=== PATIENT | female | born 1950 | race Caucasian/White ===

== ENCOUNTER 2022-10-17 12:20 | Outpatient (OUT) | payer MEDICARE, MEDICAID, SELFPAY ==
--- NOTE | 2022-10-17 12:54 | CT_ITS ---
[address] [address] Patient Name: JAXSON QUEZADA MRN: [id number] date: 1950 Sex: F Assigned Patient Location: CT Current Patient Location: Accession/Order Number: [id number] Exam Date: 10/17/2022 12:48 Report Date: 10/18/2022 07:27 At the request of: NON-STAFF PHYSICIAN Procedure: CT lumbar spine wo con EXAMINATION: CT lumbar spine wo con HISTORY: LUMBAR SPINAL STENOSIS COMPARISON: No relevant comparison available. TECHNIQUE: Axial, Coronal, and Sagittal CT images were created without I.V. contrast material. Dose reduction techniques were achieved by using automated exposure control and/or adjustment of mA and/or kV according to patient size and/or use of iterative reconstruction technique. FINDINGS: PARASPINAL AREA: Extensive diffuse atherosclerosis BONES: 5 mm anterolisthesis of L4 in relation to L5. Posterior decompression bilateral transpedicular fusion L4-S1 with no mechanical failure. DISC LEVELS: 12-L1: Early degenerative disc disease is present without focal protrusion or neural impingement. L1-L2: Early degenerative disc disease is present without focal protrusion or neural impingement. L2-L3: No significant disc/facet abnormality, spinal stenosis, or foraminal stenosis. L3-L4: Vacuum disc with moderate narrowing. Endplate sclerosis. Moderate left foraminal disc protrusion extending up to 3 mm. No central or right foraminal stenosis. Mild narrowing of the left neural foramen L4-L5: 5 mm anterolisthesis of L4 on L5. Interbody spacer. No central or foraminal stenosis L5-S1: Interbody spacer. Left facet osteoarthropathy. No central stenosis. Mild right and no left foraminal stenosis CT/CT lumbar spine wo con IMPRESSION: Posterior decompression and transpedicular fusion L4-S1 Degenerative changes resulting in left L3-L4 and right L5-S1 foraminal stenosis Electronically authenticated by: CHARY AWAD Date: 10/18/2022 07:27
--- NOTE | 2022-10-17 13:05 | XR_ITS ---
The [address] [address] Patient Name: JAXSON QUEZADA MRN: [id number] date: 1950 Sex: F Assigned Patient Location: CT Current Patient Location: CT Accession/Order Number: [id number] Exam Date: 10/17/2022 12:54 Report Date: 10/18/2022 14:25 At the request of: NON-STAFF PHYSICIAN Procedure: XR lumbar spine 6V w bending EXAM: XR lumbar spine 6V w bending HISTORY: Status post spinal fusion. Instrument check. COMPARISON: CT from the same day. FINDINGS: The patient is status post posterior fusion with interbody spacers at L4-S1, intact. The paravertebral soft tissues are unremarkable. There is no evidence of ligamentous instability on the flexion or extension views. There is no evidence of a pars defect on the oblique views. Vascular calcifications are observed. XR/XR lumbar spine 6V w bending IMPRESSION: Status post spinal fusion. Electronically authenticated by: JOSTIN BUSBY Date: 10/18/2022 14:25
== END 2022-10-17 12:21 | disposition home or self-care (01) ==
LOC: CT 12:24
PROVIDERS: PCP Internal Medicine
DX: M48.061 Spinal stenosis, lumbar region without neurogenic claudication (principal); Z98.1 Arthrodesis status; M51.36 Other intervertebral disc degeneration, lumbar region; M48.07 Spinal stenosis, lumbosacral region
CPT/HCPCS: 72114; 72131

== ENCOUNTER 2022-11-03 07:34 | Outpatient (OUT) | payer MEDICARE, MEDICAID, SELFPAY ==
--- NOTE | 2022-11-03 08:57 | CA_ITS ---
Patient: JAXSON QUEZADA Exam Date: 11/03/2022 : 1950 Gender:F Ordering : MRS. ROSANA MIKE NP Admission #: [id number] Family : Order #: [id number] CLICK HERE TO VIEW EXAM ECHOCARDIOGRAM REPORT PROCEDURE: CA ECHO DOPPLER COMPLETE INDICATIONS: Nonrheumatic aortic stenosis, CABGx3, hypertension, diabetes, smoker COMPARISON: None. DESCRIPTION: COMPLETE ECHOCARDIOGRAM Real-time transthoracic echocardiography with 2D, M-mode, spectral and color flow Doppler performed. QUALITY: Technical quality was good. LEFT VENTRICLE: Normal chamber size. Mild concentric left ventricular hypertrophy. Systolic function is at the lower limits of normal. Hypokinesis of the basal anteroseptum wall and the basal inferior wall. LV EF: Lower limits of normal left ventricular ejection fraction, (50%). DIASTOLIC: Grade I diastolic dysfunction. ATRIAL SEPTUM: Visually appears intact. LEFT ATRIUM: Mild dilatation. RIGHT ATRIUM: Normal chamber size. RIGHT VENTRICLE: Normal chamber size. Normal right ventricular systolic function. TRICUSPID VALVE: Normal mobility and thickness. No stenosis with trivial regurgitation. No evidence of pulmonary hypertension. RVSP 29 mmHg MITRAL VALVE: Normal mobility and thickness. No evidence of mitral valve stenosis. Mild mitral annular calcification. No mitral regurgitation. AORTIC VALVE: Normal trileaflet appearance. Moderately calcified aortic valve. Mildly diminished mobility. Doppler velocity suggest moderate aortic valve stenosis. DVI 0.4, JULIO, 1.2 cm2. Mild aortic regurgitation. AORTIC ROOT: Normal diameter and appearance. PULMONIC VALVE: Normal thickness and mobility. No stenosis. No regurgitation. PERICARDIUM: No evidence of pericardial effusion. IVC: Collapses with inspirations. PLEURA: CONCLUSION: 1. Left ventricular systolic function is at the lower limits of normal. Segmental wall motion abnormalities. LVEF is 50%. 2. Normal right ventricular size and systolic function. 3. Moderate aortic valve stenosis with mild regurgitation. 4. Normal right-sided pressures. Adult Echocardiography Procedure Report Left Ventricle LVEDD (3.7 - 5.6 cm): 4.42 cm LVESD (2.2 - 4.0 cm): 3.69 cm LVIVS thickness (0.6 - 1.2 cm): 1.18 cm LVPW thickness (0.5 - 1.0 cm): 1.18 cm e': 0.09 m/s E - e': 5.91 LVOT Max Gradient: 2.53 mm[Hg], 2.22 mm[Hg] Peak Velocity (LVOT): 0.80 m/s, 0.75 m/s LVOT Diameter 1.97 cm Left Atrium LA Volume Index (2D A2C): 38.88 ml/m2 Left Atrium Systolic Dimension: 2.59 cm Mitral Valve MV E to A Ratio: 0.55 Mitral Valve A-Wave Peak Velocity: 0.95 m/s Mitral Valve E-Wave Peak Velocity: 0.52 m/s Right Ventricle Aorta AO Root Diam: 2.85 cm Ascending Ao Diam: 2.15 cm Aortic Valve AoV Area (Peak Jarad): 1.14 cm2, 2.89 cm2, 1.14 cm2 AoV Area (VTI): 0.92 cm2, 2.56 cm2, 1.06 cm2 Peak Velocity(Antegrade Flow): 0.84 m/s, 1.99 m/s, 2.07 m/s, 2.11 m/s Peak Gradient(Antegrade Flow): 2.79 mm[Hg], 15.91 mm[Hg], 17.12 mm[Hg], 17.87 mm[Hg] Mean Velocity(Antegrade Flow): 0.57 m/s, 1.46 m/s, 1.63 m/s, 1.58 m/s Mean Gradient(Antegrade Flow): 1.48 mm[Hg], 9.39 mm[Hg], 11.50 mm[Hg], 11.11 mm[Hg] Velocity Time Integral: 18.27 cm, 43.24 cm, 50.75 cm, 46.88 cm Tricuspid Valve Peak Velocity (Regurgitant Flow): 2.54 m/s Pulmonic Valve Peak Gradient: 3.25 mm[Hg], 4.07 mm[Hg] Right Atrium Right Atrium Systolic Pressure: 41.09 ml, 41.09 ml Dictated by: Ender Goff M.D. on 11/03/2022 at 13:35 Approved by: Ender Goff M.D. on 11/03/2022 at 13:39
== END 2022-11-03 07:35 | disposition home or self-care (01) ==
PROVIDERS: PCP Internal Medicine; Visit Provider Nurse Practitioner Acute Care
DX: I35.0 Nonrheumatic aortic (valve) stenosis (principal)
CPT/HCPCS: 93306

== ENCOUNTER 2022-12-05 08:31 | Outpatient (OUT) | payer MEDICARE, MEDICAID, SELFPAY ==
--- NOTE | 2022-12-05 | PCN_ITS ---
CARDIAC STRESS TEST Requesting Physician:? Maddie Lopez NP Procedure Date:? 12/05/2022 PERFORMING PROVIDER:? Lito Condon INDICATION:? CAD, rey-op risk stratification. PROTOCOL:? Lexiscan myocardial perfusion scan. Resting heart rate:? 64 Max heart rate:? 102 Resting blood pressure:? 108/60 Maximum blood pressure:? 128/62 CONCLUSIONS: 1.? Resting EKG demonstrates sinus bradycardia, right axis deviation, and incomplete right bundle branch block. 2.? No definite EKG changes meeting the criteria for ischemia. 3.? Please refer to separately performed and interpreted myocardial perfusion imaging report. TAMIKOD
--- NOTE | 2022-12-05 08:15 | NM_ITS ---
Patient: JAXSON QUEZADA Exam Date: 12/05/2022 : 1950 Gender:F Ordering : MRS. ROSANA MIKE ANTONI Admission #: [id number] Family : DR BELINDA PONCE M.D. Order #: [id number] CLICK HERE TO VIEW EXAM RADIOLOGY REPORT PROCEDURE: NM ERICK PERF SPECT REST STR COMPARISON: None. INDICATIONS: CORONARY ARTERY DISEASE, PRE PROCEDURE CARDIOVASCULAR EXAM TECHNIQUE: Exam Description: Stress/Rest one day protocol gated SPECT Rest Imagin.9 mCi Tc-99m Cardiolite IV on 12/05/2022 Stress Imaging 30.3 mCi Tc-99m Cardiolite IV on 12/05/2022 Exercise Protocol: 0.4 mg Lexiscan given IV Heart Rate (bpm): Rest: 63 Max: 102 PMHR: 68 Blood Pressure: Rest: 108/60 Max: 128/62 Symptoms: Rest and peak stress ECG findings were pending and the exercise portion of the study was pending per attending physician Dr. AGUILERA . For more details please see separate cardiac stress test report. FINDINGS: QUALITY OF STUDY: Good. PERFUSION DEFECT: LOCATION: Basal inferior. Mid-inferior. SIZE: Small (1-2 segments). SEVERITY: Mild. TYPE: Persistent. WALL MOTION: Mild hypokinesis: LV SIZE: Normal. 91 mL. TID / TCD: None; 0.9 LVEF: Abnormal. Calculated EF 53%. SUMMARY: Myocardial perfusion imaging study has ABNORMAL findings. CONCLUSION: 1. Small fixed defect in the inferior wall possibly diaphragmatic attenuation artifact 2. Borderline Low left ventricular ejection fraction of 53% 3. Pending exercise test Dictated by: Azael Syed MD on 12/06/2022 at 14:18 Approved by: Azael Syed MD on 12/06/2022 at 14:21
[2022-12-05] MEDS: REGADENOSON 0.4 MG/5 ML SYRINGE IV (10:13)
== END 2022-12-05 08:32 | disposition home or self-care (01) ==
LOC: NM 08:31
PROVIDERS: PCP Internal Medicine; Visit Provider Nurse Practitioner Acute Care
DX: I25.10 Atherosclerotic heart disease of native coronary artery without angina pectoris (principal)
CPT/HCPCS: 78452; 93017; A9500; J2785

== ENCOUNTER 2023-03-29 08:51 | Inpatient (IN) | payer MEDICARE, MEDICAID, SELFPAY ==
[2023-03-29] VITALS (18 sets, daily range): BP systolic 109–153; BP diastolic 54–98; PULSE 65–104; RESP 15–20; TEMP 36.8–37.4; O2SAT 85–96; BMI 23.0; BMI 23.7
--- NOTE | 2023-03-29 08:58 | XR_ITS ---
The [address] [address] Patient Name: JAXSON QUEZADA MRN: [id number] date: 1950 Sex: F Assigned Patient Location: ER Current Patient Location: ER Accession/Order Number: [id number] Exam Date: 03/29/2023 09:00 Report Date: 03/29/2023 09:17 At the request of: HAIM SMITH Procedure: XR chest 1V EXAM: XR chest 1V HISTORY: cough COMPARISON: None. TECHNIQUE: AP view of the chest. FINDINGS: The cardiomediastinal silhouette is normal. Patchy airspace disease the right midlung field. There is no pneumothorax. No pleural effusion is noted. The osseous structures are intact. XR/XR chest 1V IMPRESSION: Multifocal pneumonia of the right lung. Electronically authenticated by: CRYSTAL WATT Date: 03/29/2023 09:17
--- NOTE | 2023-03-29 09:01 | ED.GENADUL1 ---
HPI - General Adult General Chief complaint: Upper Respiratory Infection Stated complaint: SORE THROAT Time Seen by Provider: 03/29/23 08:52 Mode of arrival: ambulance History of Present Illness HPI narrative: 72-year-old female presents for sore throat. She's had it for five or six days. She also developed a cough recently and some congestion, within the last day. Her does not seem to be ill. No known history of a fever and no vomiting or diarrhea. Related Data Home Medications Medication Instructions Recorded Confirmed atorvastatin 20 mg tablet 20 mg PO DAILY 03/29/23 03/29/23 carbidopa 25 mg-levodopa 100 mg 1 tab PO QID 03/29/23 03/29/23 tablet citalopram 20 mg tablet 20 mg PO DAILY 03/29/23 03/29/23 clopidogrel 75 mg tablet 75 mg PO DAILY 03/29/23 03/29/23 isosorbide mononitrate 30 mg 30 mg PO DAILY 03/29/23 03/29/23 tablet,extended release 24 hr metformin 500 mg tablet,extended 500 mg PO DAILY 03/29/23 03/29/23 release 24 hr pregabalin 200 mg capsule 200 mg PO TID 03/29/23 03/29/23 primidone 50 mg tablet 50 mg PO QID 03/29/23 03/29/23 ropinirole 0.25 mg tablet 0.25 mg PO QID 03/29/23 03/29/23 tizanidine 4 mg tablet 4 mg PO BEDTIME 03/29/23 03/29/23 Allergies Allergy/AdvReac Type Severity Reaction Status Date / Time No Known Drug Allergies Allergy Verified 03/29/23 09:44 Review of Systems ROS Narrative A ten point review of systems is negative except as noted above. Exam Narrative Exam Narrative: Nurses note and vital signs reviewed and patient is not hypoxic. General: The patient appears well and in no apparent distress. Patient is resting comfortably on cart. Skin: Warm, dry, no pallor noted. There is no rash noted. Head: Normocephalic, atraumatic Eye: Normal conjunctiva, no drainage Ears, Nose, Mouth, and Throat: oral mucosa is slightly dry. No exudate or pharyngeal swelling. She is handling her oral secretions well. Cardiovascular: Regular Rate and Rhythm Respiratory: Patient is in no distress, no accessory muscle use, lungs are clear to auscultation, no wheezing, rales or rhonchi Back: non-tender GI: Normal bowel sounds, no tenderness to palpation, no masses appreciated. No rebound, guarding, or rigidity noted. Musculoskeletal: The patient has no evidence of calf tenderness, no pitting edema, symmetrical pulses noted bilaterally Neurological: A&O, normal speech, quite tremorous Psychiatric: Cooperative Constitutional Vital Signs, click to edit/add: Last Vital Signs Temp 99.4 F 03/29/23 08:54 Pulse 99 H 03/29/23 09:16 Resp 16 03/29/23 09:16 BP 140/55 03/29/23 09:16 Pulse Ox 85 L 03/29/23 09:31 O2 Del Method Room Air 03/29/23 09:31 FiO2 2 03/29/23 09:31 Course Vital Signs Vital signs: Vital Signs Temperature 99.4 F 03/29/23 08:54 Pulse Rate 104 H 03/29/23 08:54 Respiratory Rate 15 03/29/23 08:54 Blood Pressure 120/98 H 03/29/23 08:54 Pulse Oximetry 96 03/29/23 08:54 Oxygen Delivery Method Room Air 03/29/23 08:54 Temperature 99.4 F 03/29/23 08:54 Pulse Rate 99 H 03/29/23 09:16 Respiratory Rate 16 03/29/23 09:16 Blood Pressure 140/55 03/29/23 09:16 Pulse Oximetry 85 L 03/29/23 09:31 Oxygen Delivery Method Room Air 03/29/23 09:31 Fraction of Inspired Oxygen 2 03/29/23 09:31 Medical Decision Making MDM Narrative Medical decision making narrative: multifocal pneumonia is identified on the right side. O2 sat was 85 percent on room air. WBC eighteen thousand with lactic acid pending. Blood cultures were obtained and then she was given IV Rocephin and Zithromax and she's being admitted. Covid and influenza tests are negative. Treatment diagnosis and disposition were discussed with the patient. Differential Diagnosis Differential Diagnosis: pneumonia, Covid, influenza Lab Data Lab results reviewed: Yes I reviewed the patient's lab results Labs: Lab Results 03/29/23 03/29/23 Range/Units 09:02 09:12 WBC 18.2 H (4.0-11.0) 10^3/uL RBC 4.59 (4.20-5.40) 10^6/uL Hgb 15.0 (12.0-16.0) g/dL Hct 45.1 (36.0-48.0) % MCV 98.3 (81.0-99.0) fL MCH 32.7 (26.7-34.0) pg MCHC 33.3 (29.9-35.2) g/dL RDW 14.2 (11.0-15.0) % Plt Count 156 (150-450) 10^3/uL MPV 12.1 (9.5-13.5) fL Neut % (Auto) 79.3 H (43.0-75.0) % Lymph % (Auto) 12.8 L (20.5-60.0) % [place] % (Auto) 6.8 (1.7-12.0) % Eos % (Auto) 0.3 L (0.9-7.0) % Baso % (Auto) 0.3 (0.2-2.0) % Neut # (Auto) 14.4 H (1.4-6.5) 10^3/uL Lymph # (Auto) 2.3 (1.2-3.8) 10^3/uL [place] # (Auto) 1.2 H (0.3-0.8) 10^3/uL Eos # (Auto) 0.1 (0.0-0.7) 10^3/uL Baso # (Auto) 0.1 (0.0-0.1) 10^3/uL Abs Immat Gran (auto) 0.09 H (0.00-0.03) 10^3/uL Imm/Tot Granulo (auto) 0.5 (0.0-0.5) % Sodium 142 (136-145) mmol/L Potassium 3.6 (3.5-5.1) mmol/L Chloride 106 (98-107) mmol/L Carbon Dioxide 26.9 (21.0-32.0) mmol/L Anion Gap 12.7 BUN 22.0 H (7.0-18.0) mg/dL Creatinine 0.62 (0.55-1.02) mg/dL Est GFR ( Amer) >60 (>=60) Est GFR (Non-Af Amer) >60 (>=60) BUN/Creatinine Ratio 35.5 Glucose 178 H (74-106) mg/dL Calcium 8.9 (8.5-10.1) mg/dL SARS-CoV-2 (PCR) Negative (NEGATIVE) Influenza Type A Ag Negative Influenza Type B Ag Negative Streptococcus Screen Negative Imaging Data Chest x-ray: Radiologist's impression: ITS Impressions Chest X-Ray 03/29/23 08:58 IMPRESSION: Multifocal pneumonia of the right lung. Electronically authenticated by: CRYSTAL WATT Date: 03/29/2023 09:17 Discharge Plan Discharge Chief Complaint: Upper Respiratory Infection Clinical Impression: Pneumonia Patient Disposition: Admitted As Inpatient Time of Disposition Decision: 09:51 Condition: Good Prescriptions / Home Meds: No Action atorvastatin 20 mg tablet 20 mg PO DAILY carbidopa-levodopa 25-100 mg tablet 1 tab PO QID citalopram 20 mg tablet 20 mg PO DAILY clopidogrel 75 mg tablet 75 mg PO DAILY isosorbide mononitrate 30 mg tablet extended release 24 hr 30 mg PO DAILY metformin 500 mg tablet extended release 24 hr 500 mg PO DAILY primidone 50 mg tablet 50 mg PO QID ropinirole 0.25 mg tablet 0.25 mg PO QID tizanidine 4 mg tablet 4 mg PO BEDTIME pregabalin 200 mg capsule 200 mg PO TID Referrals: BELINDA PONCE [Primary Care Provider] - 1 week
[2023-03-29 09:33] LABS: Anion Gap 12.7; BUN Creatinine Ratio 35.5; Calcium 8.9 mg/dL (8.5-10.1); Carbon Dioxide 26.9 mmol/L (21.0-32.0); Chloride 106 mmol/L (98-107); Estimated GFR (African America >60 (>=60); Estimated GFR (Non-African Ame >60 (>=60); Glucose 178 mg/dL (74-106); Potassium 3.6 mmol/L (3.5-5.1); Sodium 142 mmol/L (136-145)
[2023-03-29 09:38] LABS: Influenza Virus A Antigen Negative; Influenza Virus B Antigen Negative; Internal Control Within Normal Limits; Strep A Antigen Screen Negative
[2023-03-29 09:39] LABS: SARS-CoV-2 Ag NEGATIVE (NEGATIVE)
[2023-03-29 09:41] LABS: Basophils Absolute Auto 0.1 10^3/uL (0.0-0.1); Basophils Percent Auto 0.3 % (0.2-2.0); Eosinophils Absolute Auto 0.1 10^3/uL (0.0-0.7); Eosinophils Percent Auto 0.3 % (0.9-7.0); Hematocrit 45.1 % (36.0-48.0); Immature Granulocytes Abs Auto 0.09 10^3/uL (0.00-0.03); Immature Granulocytes Pct Auto 0.5 % (0.0-0.5); Lymphocytes Absolute Auto 2.3 10^3/uL (1.2-3.8); Lymphocytes Percent Auto 12.8 % (20.5-60.0); Mean Corpuscular HGB Conc 33.3 g/dL (29.9-35.2); Mean Corpuscular Hemoglobin 32.7 pg (26.7-34.0); Mean Corpuscular Volume 98.3 fL (81.0-99.0); Mean Platelet Volume 12.1 fL (9.5-13.5); Monocytes Absolute Auto 1.2 10^3/uL (0.3-0.8); Monocytes Percent Auto 6.8 % (1.7-12.0); Neutrophils Absolute Auto 14.4 10^3/uL (1.4-6.5); Neutrophils Percent Auto 79.3 % (43.0-75.0); Platelet Count 156 10^3/uL (150-450); Red Blood Count 4.59 10^6/uL (4.20-5.40); Red Cell Distribution Width 14.2 % (11.0-15.0); White Blood Count 18.2 10^3/uL (4.0-11.0)
[2023-03-29] MEDS: CEFTRIAXONE 1,000 MG in 0.9 % SODIUM CHLORIDE 50 ML 100 MG IV (09:45)
[2023-03-29 09:54] LABS: Lactate/Lactic Acid 0.7 mmol/L (0.4-2.0)
[2023-03-29] MEDS: ACETAMINOPHEN 325 MG TABLET 650 MG PO (09:54)
[2023-03-29] MEDS: AZITHROMYCIN 500 MG in 0.9 % SODIUM CHLORIDE 250 ML 250 MG IV (10:23)
[2023-03-29 11:03] LABS: Adenovirus NOT DETECTED (NOT DETECTE); Bordetella parapertussis NOT DETECTED (NOT DETECTE); Coronavirus 229E NOT DETECTED (NOT DETECTE); Coronavirus HKU1 NOT DETECTED (NOT DETECTE); Coronavirus NL63 NOT DETECTED (NOT DETECTE); Coronavirus OC43 NOT DETECTED (NOT DETECTE); Human Metapneumovirus NOT DETECTED (NOT DETECTE); Human Rhinovirus/Enterovirus NOT DETECTED (NOT DETECTE); Influenza A NOT DETECTED (NOT DETECTE); Influenza B NOT DETECTED (NOT DETECTE); Mycoplasma pneumoniae NOT DETECTED (NOT DETECTE); Parainfluenza Virus 1 NOT DETECTED (NOT DETECTE); Parainfluenza Virus 2 NOT DETECTED (NOT DETECTE); Parainfluenza Virus 3 NOT DETECTED (NOT DETECTE); Parainfluenza Virus 4 NOT DETECTED (NOT DETECTE); Respiratory Syncytial Virus NOT DETECTED (NOT DETECTE); SARS-CoV-2 NOT DETECTED (NOT DETECTE)
[2023-03-29 12:18] LABS: Glucometer 192 mg/dL (74-106)
[2023-03-29] MEDS: LACTATED RINGER'S SOLUTION 1,000 ML 100 ML IV ×2 (13:36→22:54)
[2023-03-29] MEDS: GUAIFENESIN 600 MG TAB.ER.12H PO ×2 (13:36→20:27)
--- NOTE | 2023-03-29 14:28 | P.HP_ITS ---
<Statement entered by Oscar Tipton MD - 03/29/23 17:43> Patient not seen or examined and evaluated by LICENSED CLINICIAN. Presented with cough and SOB. Found pneumonia. Started antibiotics and resumed home medication. Found hypoxia and wean O2 as tolerated. Diagnosis: 1. Pneumonia 2. Acute hypoxic respiratory failure 3. DM2 4. HTN 5. Parkinson disease H&P: HPI History of Present Illness Chief complaint: SORE THROAT Narrative: 03/29/23 7069 This is a 72 yo female pt with a past Medical history as outlined below including advanced Parkinson's disease, hypertension, DM2, hyperlipidemia, and depression; who presented to the ED this morning complaining of a sore throat and upper respiratory congestion for the last 4 to 5 days. She also reports a cough and fevers. She denies significant shortness of breath but was found to be 85% on room air on arrival to the ED. Workup in the ED revealed hypoxia (85%), leukocytosis (18.2), hyperglycemia (178), negative respiratory panel and unremarkable lactic acid. Chest x-ray revealed right-sided multifocal pneumonia. She is being admitted as an inpatient to the hospitalist service for IV antibiotics and oxygen administration. At the time of my exam the patient is sitting on the side of the bed. She is alert and oriented x 2. She denies any recent sick contacts. She reports a 4 to 5-day course of coughing, fevers up to 101, and sinus and ear congestion. She appears mildly dehydrated and acutely weak on chronic advanced Parkinson's disease. She will be treated with IV fluids, Rocephin and azithromycin for CAP, and will be seen in consult by PT and OT. Patient has a long history of tobacco dependence and we suspect possible underlying COPD although she has no known diagnosis. Review of Systems ROS Status of ROS 10 or more systems reviewed and unremark able except as noted in history and below [facility] Medical History (Updated 03/29/23 @ 15:29 by Dacia Guthrie NP) CAD (coronary artery disease) ?I25.10 - Atherosclerotic heart disease of [place] coronary artery without angina pectoris (ICD-10) Myocardial infarction ?I21.9 - Acute myocardial infarction, unspecified (ICD-10) Tobacco dependence ?F17.200 - Nicotine dependence, unspecified, uncomplicated (ICD-10) OAB (overactive bladder) ?N32.81 - Overactive bladder (ICD-10) Hyperlipidemia ?E78.5 - Hyperlipidemia, unspecified (ICD-10) HTN (hypertension) ?I10 - Essential (primary) hypertension (ICD-10) DM2 (diabetes mellitus, type 2) ?E11.9 - Type 2 diabetes mellitus without complications (ICD-10) Parkinson disease ?G20.A1 - Parkinson's disease without dyskinesia, without mention of fluctuations (ICD-10) Surgical History (Updated 03/29/23 @ 15:26 by Luna Ying) History of cholecystectomy ?Z90.49 - Acquired absence of other specified parts of digestive tract (ICD- 10) Previous back surgery ?Z98.890 - Other specified postprocedural states (ICD-10) S/P triple vessel bypass ?Z95.1 - Presence of aortocoronary bypass graft (ICD-10) Family History (Updated 03/29/23 @ 11:57 by Luna Ying) Father Family history of CHF (congestive heart failure) Family history of cancer Mother Family history of CHF (congestive heart failure) Brother Family history of CHF (congestive heart failure) Social History (Updated 03/29/23 @ 11:54 by Luna Ying) Within the past year, how often did you have a drink containing alcohol: never Score interpretation: A score less than 3 is consistent with normal alcohol consumption. 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 Highest level of school completed/degree received: some college, no degree Are you now , , , , never or living with a partner: In a typical week, how many times do you talk on the telephone with family, friends, or neighbors: 3 or more times per week How often do you get together with friends or relatives: 3 or more times per week How often do you attend samaritan or bahai services: never Do you belong to any clubs or organizations such as samaritan groups unions, fraternal or athletic groups, or school groups: no Total score: 2 Score interpretation: A score of greater than or equal to 2 indicates the lowest level of social isolation. Little interest or pleasure in doing things: not at all Feeling down, depressed, or hopeless: not at all Feel stressed/tense/nervous/anxious/difficulty sleeping: only a little Do you think of yourself as: straight/heterosexual Gender Identity: female Meds Home Medications and Allergies Home Medications Medication Instructions Recorded Confirmed Type atorvastatin 40 mg tablet 40 mg PO BEDTIME 03/29/23 03/29/23 History carbidopa 25 mg-levodopa 100 mg 1 tab PO QID 03/29/23 03/29/23 History tablet citalopram 40 mg tablet 40 mg PO QAM 03/29/23 03/29/23 History clopidogrel 75 mg tablet 75 mg PO DAILY 03/29/23 03/29/23 History hydrocodone 10 mg-acetaminophen 1 tab PO Q8H PRN pain 03/29/23 03/29/23 History 325 mg tablet isosorbide mononitrate 30 mg 30 mg PO DAILY 03/29/23 03/29/23 History tablet,extended release 24 hr metformin 750 mg tablet,extended 750 mg PO QDAY 03/29/23 03/29/23 History release 24 hr oxybutynin chloride 10 mg 10 mg PO .QD 03/29/23 03/29/23 History tablet,extended release 24 hr pregabalin 200 mg capsule 200 mg PO TID 03/29/23 03/29/23 History primidone 50 mg tablet 50 mg PO QID 03/29/23 03/29/23 History ropinirole 0.25 mg tablet 0.25 mg PO QID 03/29/23 03/29/23 History tizanidine 4 mg tablet 4 mg PO TID PRN muscle spasticity 03/29/23 03/29/23 History Allergies Allergy/AdvReac Type Severity Reaction Status Date / Time No Known Drug Allergies Allergy Verified 03/29/23 09:44 Exam Constitutional Vital Signs, click to edit/add: Last Vital Signs Temp 98.3 F 03/29/23 14:00 Pulse 68 03/29/23 14:00 Resp 20 03/29/23 14:00 BP 145/68 H 03/29/23 14:00 Pulse Ox 94 L 03/29/23 14:00 O2 Del Method Nasal Cannula 03/29/23 14:00 O2 Flow Rate 2 03/29/23 14:00 FiO2 2 03/29/23 09:31 Common normals: no apparent distress, oriented x3, alert and well nourished General appearance: cooperative Orientation/consciousness: Yes awake HENOK Common normals: normocephalic, head/scalp atraumatic, hearing grossly normal bilaterally, external nose normal and moist oral mucous membranes Eye Common normals: PERRL, EOMs intact bilaterally, conjunctivae normal and no scleral icterus Alignment: alignment normal Eyelid: eyelids normal Neck & C-Spine Common normals: full ROM, supple and no JVD Chest Common normals: inspection of chest normal Chest: symmetrical chest wall rise Respiratory Common normals: normal respiratory effort, no retractions and no use of accessory muscles Effort & inspection: able to speak in complete sentences Auscultation: wheezes (Faint, BEVERLY wheeze) and diminished lung sounds (BLL); no rales and no rhonchi Cardio Common normals: no JVD, regular rate, regular rhythm, S1 normal heart sound, S2 normal heart sound, no gallops, no clicks, no murmurs, no rub and peripheral pulses 2+ throughout Bladder/kidney exam: bladder normal to palpation Back & Pelvis Common normals: thoracic and lumbar spine normal to inspection Extremity Common normals: normal capillary refill and no pedal edema General: normal exam except as noted; no cyanosis Neuro Star Coma Scale: GCS not evaluated Common normals: CN's II-XII intact bilaterally, moves all extremities, no focal motor deficits and no sensory deficits noted; gait abnormal (L foot drop) Speech: speech normal Gait (neuro): assistive device used walker Motor exam: strength 5/5 throughout Psych Common normals: mental status grossly normal, thought process normal, affect normal and activity/motor behavior normal Results Labs Labs: Short CBC 03/29/23 Range/Units 09:12 WBC 18.2 H (4.0-11.0) 10^3/uL Hgb 15.0 (12.0-16.0) g/dL Hct 45.1 (36.0-48.0) % Plt Count 156 (150-450) 10^3/uL BMP 03/29/23 09:12 Sodium 142 Potassium 3.6 Chloride 106 Carbon Dioxide 26.9 BUN 22.0 H Creatinine 0.62 Glucose 178 H Calcium 8.9 Pulse Oximetry Attestation: I have reviewed the pertinent pulse oximetry results. Imaging Chest x-ray: Attestation: I have reviewed the pertinent imaging results. Radiologist's impression: IMPRESSION: Multifocal pneumonia of the right lung. Assessment and Plan Assessment and Plan (1) Multifocal pneumonia: Assessment and Plan: ACUTE * Adm Inpatient * IVPB Rocephin & Azithromycin * Obtain sputum culture if possible to direct deescalation of antibiotics * Guafenesin & OPEP for sputum mobilization * Duonebs q4h PRN * No clinical concern for sepsis at this time but remains at risk * Strep culture obtained in ED - pending * Blood cultures x 2 in ED - pending * See respiratory failure * CBC, CMP daily * Repeat CXR in AM (2) Acute respiratory failure: Assessment and Plan: ACUTE * O2 sat 85% on RA on arrival to the ED * Pt does not use O2 at home * Suspect underlying COPD w/ chronic tobacco use, but pt does not appear to be in COPD exacerbation at this time * O2 as needed to keep sats above 90% - currently requiring 2L via NC * Wean off as able (3) Dehydration: Assessment and Plan: ACUTE * Clinical dehydration on exam * LR at 100/hr * Daily weights to monitor for fluid overload * CMP in AM (4) Parkinson disease: Assessment and Plan: CHRONIC * Continue home Sinemet, Requip, tizanidine, primidone, pregabalin * PT/OT consult * May require SNF rehab stay after acute illness/ hospitalization in setting of chronic debility from advanced parkinsons (5) DM2 (diabetes mellitus, type 2): Assessment and Plan: CHRONIC * Hold home metformin during acute illness/hospitalization * ACHS glucometer checks * Med CC diet * Med SSI for glucose correction (6) OAB (overactive bladder): Assessment and Plan: CHRONIC * Continue home oxybutynin (7) Tobacco dependence: Assessment and Plan: CHRONIC * Nicoderm 14 mg patch * Xanax prn for tobacco cravings/anxiety * Counseled complete cessation (8) CAD (coronary artery disease): Assessment and Plan: CHRONIC * Continue home Imdur, statin, plavix
[2023-03-29] MEDS: HYDROCODONE/ACET 10-325 MG TABLET 1 TAB PO (14:35)
[2023-03-29] MEDS: PRIMIDONE 50 MG TABLET PO ×3 (14:35→21:15)
[2023-03-29] MEDS: PREGABALIN 100 MG CAPSULE 200 MG PO ×2 (14:35→21:14)
[2023-03-29] MEDS: CARBIDOPA/LEVODOPA 25 MG-100 MG TABLET 1 TAB PO ×3 (14:35→21:15)
[2023-03-29] MEDS: ROPINIROLE HCL 0.25 MG TABLET PO ×3 (14:35→21:14)
--- NOTE | 2023-03-29 16:19 | CM.NOTE ---
Spoke with patient regarding PT recommendations and HH services. Pt states I do agree to HH services but do not want to go into a place for rehab. Pt states her has HH services with [facility] and would like to go with them. Faxed referral to [facility] for HH services at discharge.
[2023-03-29 16:43] LABS: Glucometer 147 mg/dL (74-106)
[2023-03-29] MEDS: ENOXAPARIN SODIUM 40 MG/0.4 ML SYRINGE SUBQ (17:41)
[2023-03-29] MEDS: ALPRAZOLAM 0.25 MG TABLET PO (17:42)
[2023-03-29 19:50] LABS: Glucometer 191 mg/dL (74-106)
[2023-03-29] MEDS: IPRATROPIUM/ALBUTEROL SULFATE 3 ML AMPUL.NEB IH (20:08)
[2023-03-29] MEDS: ATORVASTATIN CALCIUM 40 MG TABLET PO (21:15)
[2023-03-29] MEDS: INSULIN ASPART 300 UNIT/3 ML PEN SUBQ (21:19)
[2023-03-30] VITALS (23 sets, daily range): BP systolic 109–157; BP diastolic 55–70; PULSE 65–95; RESP 18–20; TEMP 36.7–36.9; O2SAT 90–97
--- NOTE | 2023-03-30 04:00 | XR_ITS ---
The [address] [address] Patient Name: JAXSON QUEZADA MRN: [id number] date: 1950 Sex: F Assigned Patient Location: [place] Current Patient Location: [place] Accession/Order Number: [id number] Exam Date: 03/30/2023 04:20 Report Date: 03/30/2023 07:32 At the request of: KINGSLEY LADD Procedure: XR chest 1V EXAM: XR chest 1V HISTORY: SOB COMPARISON: 03/29/2023 TECHNIQUE: AP portable FINDINGS: LUNGS: Slight interval improved aeration of focal infiltrate in the right midlung with overall increase infiltrates throughout both lungs particularly of the left lung base. Peripheral intralobular septal thickening VASCULATURE: Mildly increased pulmonary vasculature PLEURA: No pneumothorax, effusion, or pleural thickening. CARDIAC: No cardiomegaly or cardiac silhouette abnormality. MEDIASTINUM: No visible mass or adenopathy. BONES: No fracture or visible bone lesion. OTHER: Negative. XR/XR chest 1V IMPRESSION: Multifocal pneumonia, slightly improved on the right, increased on the left Suspected early pulmonary edema Electronically authenticated by: CHARY AWAD Date: 03/30/2023 07:32
[2023-03-30] MEDS: IPRATROPIUM/ALBUTEROL SULFATE 3 ML AMPUL.NEB IH ×2 (04:12→10:43)
[2023-03-30 05:06] LABS: Basophils Absolute Auto 0.1 10^3/uL (0.0-0.1); Basophils Percent Auto 0.4 % (0.2-2.0); Eosinophils Absolute Auto 0.2 10^3/uL (0.0-0.7); Eosinophils Percent Auto 1.3 % (0.9-7.0); Hematocrit 39.9 % (36.0-48.0); Hemoglobin 12.9 g/dL (12.0-16.0); Immature Granulocytes Abs Auto 0.05 10^3/uL (0.00-0.03); Immature Granulocytes Pct Auto 0.4 % (0.0-0.5); Lymphocytes Absolute Auto 3.4 10^3/uL (1.2-3.8); Lymphocytes Percent Auto 26.5 % (20.5-60.0); Mean Corpuscular HGB Conc 32.3 g/dL (29.9-35.2); Mean Corpuscular Hemoglobin 32.3 pg (26.7-34.0); Mean Platelet Volume 12.3 fL (9.5-13.5); Monocytes Absolute Auto 0.9 10^3/uL (0.3-0.8); Monocytes Percent Auto 7.1 % (1.7-12.0); Neutrophils Absolute Auto 8.3 10^3/uL (1.4-6.5); Neutrophils Percent Auto 64.3 % (43.0-75.0); Platelet Count 154 10^3/uL (150-450); Red Blood Count 3.99 10^6/uL (4.20-5.40); Red Cell Distribution Width 14.5 % (11.0-15.0); White Blood Count 12.9 10^3/uL (4.0-11.0)
[2023-03-30 05:21] LABS: Estimated Average Glucose 146 mg/dL; Glycohemoglobin A1C 6.7 % (4.5-6.2)
[2023-03-30] MEDS: CARBIDOPA/LEVODOPA 25 MG-100 MG TABLET 1 TAB PO ×4 (05:23→22:05)
[2023-03-30] MEDS: PREGABALIN 100 MG CAPSULE 200 MG PO ×3 (05:23→22:06)
[2023-03-30] MEDS: PRIMIDONE 50 MG TABLET PO ×4 (05:24→22:05)
[2023-03-30] MEDS: ROPINIROLE HCL 0.25 MG TABLET PO ×2 (05:24→11:40)
[2023-03-30] MEDS: HYDROCODONE/ACET 10-325 MG TABLET 1 TAB PO ×2 (05:28→17:24)
[2023-03-30 05:30] LABS: Alanine Aminotransferase 12 U/L (14-59); Albumin Globulin Ratio 0.6; Albumin Level 2.4 g/dL (3.4-5.0); Alkaline Phosphatase 91 U/L (46-116); Anion Gap 10.1; Aspartate Amino Transferase 43 U/L (15-37); BUN Creatinine Ratio 32.1; Bilirubin Total 0.4 mg/dL (0.2-1.0); Calcium 8.9 mg/dL (8.5-10.1); Carbon Dioxide 27.8 mmol/L (21.0-32.0); Chloride 107 mmol/L (98-107); Estimated GFR (African America >60 (>=60); Estimated GFR (Non-African Ame >60 (>=60); Globulin 3.7 g/dL; Glucose 115 mg/dL (74-106); Potassium 3.9 mmol/L (3.5-5.1); Sodium 141 mmol/L (136-145); Total Protein 6.1 g/dL (6.4-8.2)
[2023-03-30] MEDS: CEFTRIAXONE 1 MG in 0.9 % SODIUM CHLORIDE 50 ML 100 MG IV (08:47)
[2023-03-30] MEDS: ALPRAZOLAM 0.25 MG TABLET PO (08:51)
[2023-03-30] MEDS: CLOPIDOGREL BISULFATE 75 MG TABLET PO (08:51)
[2023-03-30] MEDS: GUAIFENESIN 600 MG TAB.ER.12H PO ×2 (08:51→22:05)
[2023-03-30] MEDS: ISOSORBIDE MONONITRATE 30 MG TAB.ER.24H PO (08:51)
[2023-03-30] MEDS: OXYBUTYNIN CHLORIDE 5 MG TAB XL 10 MG PO (08:51)
[2023-03-30] MEDS: CITALOPRAM HYDROBROMIDE 20 MG TABLET 40 MG PO (08:51)
[2023-03-30] MEDS: TIZANIDINE HCL 4 MG TABLET PO (08:52)
--- NOTE | 2023-03-30 09:36 | CM.NOTE ---
Rounding with Dr. Tipton. Pt states she feels much better than yesterday. Discussed chest xray and stopping fluids and weaning off oxygen. Pt. does not wear oxygen at home. No anticipated discharge today.
[2023-03-30] MEDS: AZITHROMYCIN 500 MG in 0.9 % SODIUM CHLORIDE 250 ML 250 MG IV (10:11)
--- NOTE | 2023-03-30 10:23 | CM.NOTE ---
[facility] has accepted pt for HH services, called [facility] to update for discharge planning.
[2023-03-30 11:19] LABS: Glucometer 177 mg/dL (74-106)
--- NOTE | 2023-03-30 11:25 | PT.DAILY ---
Physical Therapy Daily Note PT Daily Note/Assess Start: 03/30/23 11:15 Freq: Status: Active Protocol: Document 03/30/23 11:16 DARRION (Rec: 03/30/23 11:25 DARRION [id number]) Physical Therapy Daily Note/Assessment Time In/Time Out Time In 10:30 Time Out 10:45 Pain In Pain N/A Pain Out Pain N/A Subjective Subjective Pt sitting EOB upon arrival. Needs to use restroom. Agrees to allow TESTER VIBRATOR EQUIPMENT to help with this . Therapeutic Activity Time Therapeutic Activity Minutes (minutes) 10 Therapeutic Activity Units 1 Therapeutic Activity Treatment Bed Mobility Ability Standby Assistance Chair Transfer Ability Standby Assistance Therapeutic Activity Comments Sit>stand SBA. Pt amb with RW 25' to restroom, SBA with assist for IV pole. While sitting on toilet pt washes face, hands, and upper body with set up needed. Assistance for washing back and periarea when standing. Pt then amb back to bed 25' with RW, SBA. Sit>supine SBA with assist for IV lines. Call light within reach and needs met. Total Physical Therapy Time Total Therapy Minutes 10 Total Physical Therapy Units 1 Summary Daily Note Summary Steady with gait with RW and transfers. Min fatigue upon completion but denies pain.
--- NOTE | 2023-03-30 11:36 | PM.PN ---
Progress Note: Subjective Subjective Interval history: Patient feels better this am. Less SOB and mild cough. Afebrile and WBC improved. Remains on 2 LPM. Normal appetite and no emesis or diarrhea. Mild weakness and working with PT. No chest pain or palpitations. Exam Constitutional Vital Signs, click to edit/add: Last Vital Signs Temp 98.0 F 03/30/23 03:32 Pulse 84 03/30/23 11:00 Resp 18 03/30/23 08:00 BP 136/61 03/30/23 03:32 Pulse Ox 94 L 03/30/23 08:42 O2 Del Method Nasal Cannula 03/30/23 08:42 O2 Flow Rate 1 03/30/23 08:42 FiO2 2 03/29/23 09:31 Documenting provider has reviewed patient's vital signs: yes Common normals: no apparent distress, oriented x3 and alert HENMT Common normals: normocephalic Eye Common normals: PERRL and EOMs intact bilaterally Respiratory Common normals: normal respiratory effort and clear to auscultation bilaterally Cardio Common normals: regular rate, regular rhythm, no gallops, no murmurs and no rub GI Common normals: Normal to inspection, nondistended, normoactive bowel sounds present and non-tender Extremity Common normals: no pedal edema Progress Note: Objective Labs Labs: Short CBC 03/30/23 Range/Units 04:07 WBC 12.9 H (4.0-11.0) 10^3/uL Hgb 12.9 (12.0-16.0) g/dL Hct 39.9 (36.0-48.0) % Plt Count 154 (150-450) 10^3/uL BMP 03/30/23 04:07 Sodium 141 Potassium 3.9 Chloride 107 Carbon Dioxide 27.8 BUN 18.0 Creatinine 0.56 Glucose 115 H Calcium 8.9 Liver Function 03/30/23 Range/Units 04:07 Total Bilirubin 0.4 (0.2-1.0) mg/dL AST 43 H (15-37) U/L ALT 12 L (14-59) U/L Alkaline Phosphatase 91 (46-116) U/L Albumin 2.4 L (3.4-5.0) g/dL Progress Note: A&P Assessment and Plan (1) Multifocal pneumonia: (2) Acute hypoxic respiratory failure: (3) Type 2 diabetes mellitus with hyperglycemia: (4) HTN (hypertension): (5) CAD (coronary artery disease): (6) Parkinson disease: Plan Patient improved and continue antibiotics and breathing treatments. Saline lock IV. Continue PT/OT for weakness. Repeat chest x-ray in am.
[2023-03-30] MEDS: INSULIN ASPART 300 UNIT/3 ML PEN SUBQ ×2 (11:39→22:06)
--- NOTE | 2023-03-30 11:39 | CM.NOTE ---
Important Message From Medicare discussed with pt, pt verbalizes understanding and signs paper. Original given to pt and copy placed in pt's chart.
[2023-03-30 16:10] LABS: Glucometer 145 mg/dL (74-106)
[2023-03-30] MEDS: ENOXAPARIN SODIUM 40 MG/0.4 ML SYRINGE SUBQ (17:24)
[2023-03-30 20:34] LABS: Glucometer 176 mg/dL (74-106)
[2023-03-30] MEDS: ATORVASTATIN CALCIUM 40 MG TABLET PO (22:05)
[2023-03-31] VITALS (21 sets, daily range): BP systolic 104–170; BP diastolic 57–63; PULSE 50–100; RESP 18; TEMP 36.7–37.1; O2SAT 86–95
[2023-03-31] MEDS: PRIMIDONE 50 MG TABLET PO ×4 (05:18→21:19)
[2023-03-31] MEDS: PREGABALIN 100 MG CAPSULE 200 MG PO ×3 (05:18→21:19)
[2023-03-31] MEDS: CARBIDOPA/LEVODOPA 25 MG-100 MG TABLET 1 TAB PO ×4 (05:18→21:19)
[2023-03-31 06:32] LABS: Basophils Absolute Auto 0.1 10^3/uL (0.0-0.1); Basophils Percent Auto 0.5 % (0.2-2.0); Eosinophils Absolute Auto 0.2 10^3/uL (0.0-0.7); Eosinophils Percent Auto 1.8 % (0.9-7.0); Hematocrit 42.4 % (36.0-48.0); Hemoglobin 14.1 g/dL (12.0-16.0); Immature Granulocytes Abs Auto 0.03 10^3/uL (0.00-0.03); Immature Granulocytes Pct Auto 0.3 % (0.0-0.5); Lymphocytes Absolute Auto 2.4 10^3/uL (1.2-3.8); Lymphocytes Percent Auto 25.3 % (20.5-60.0); Mean Corpuscular HGB Conc 33.3 g/dL (29.9-35.2); Mean Corpuscular Hemoglobin 32.3 pg (26.7-34.0); Mean Corpuscular Volume 97.2 fL (81.0-99.0); Mean Platelet Volume 12.2 fL (9.5-13.5); Monocytes Absolute Auto 0.7 10^3/uL (0.3-0.8); Monocytes Percent Auto 7.1 % (1.7-12.0); Neutrophils Absolute Auto 6.1 10^3/uL (1.4-6.5); Platelet Count 164 10^3/uL (150-450); Red Blood Count 4.36 10^6/uL (4.20-5.40); Red Cell Distribution Width 13.9 % (11.0-15.0); White Blood Count 9.3 10^3/uL (4.0-11.0)
[2023-03-31 06:54] LABS: Alanine Aminotransferase 8 U/L (14-59); Albumin Globulin Ratio 0.6; Albumin Level 2.5 g/dL (3.4-5.0); Alkaline Phosphatase 90 U/L (46-116); Anion Gap 9.9; Aspartate Amino Transferase 40 U/L (15-37); BUN Creatinine Ratio 26.8; Bilirubin Total 0.4 mg/dL (0.2-1.0); Calcium 9.3 mg/dL (8.5-10.1); Carbon Dioxide 28.8 mmol/L (21.0-32.0); Chloride 102 mmol/L (98-107); Estimated GFR (African America >60 (>=60); Estimated GFR (Non-African Ame >60 (>=60); Glucose 154 mg/dL (74-106); Potassium 3.7 mmol/L (3.5-5.1); Sodium 137 mmol/L (136-145); Total Protein 6.5 g/dL (6.4-8.2)
[2023-03-31] MEDS: INSULIN ASPART 300 UNIT/3 ML PEN SUBQ ×3 (08:48→21:19)
[2023-03-31] MEDS: CEFTRIAXONE 1 MG in 0.9 % SODIUM CHLORIDE 50 ML 100 MG IV (08:54)
[2023-03-31] MEDS: CITALOPRAM HYDROBROMIDE 20 MG TABLET 40 MG PO (08:54)
[2023-03-31] MEDS: OXYBUTYNIN CHLORIDE 5 MG TAB XL 10 MG PO (08:54)
[2023-03-31] MEDS: CLOPIDOGREL BISULFATE 75 MG TABLET PO (08:55)
[2023-03-31] MEDS: HYDROCODONE/ACET 10-325 MG TABLET 1 TAB PO ×2 (08:56→17:12)
[2023-03-31] MEDS: GUAIFENESIN 600 MG TAB.ER.12H PO ×2 (08:56→21:19)
[2023-03-31] MEDS: ISOSORBIDE MONONITRATE 30 MG TAB.ER.24H PO (08:56)
[2023-03-31] MEDS: ENSURE HP 237 ML LIQUID PO ×2 (08:58→21:18)
--- NOTE | 2023-03-31 09:28 | XR_ITS ---
The [address] [address] Patient Name: JAXSON QUEZADA MRN: [id number] date: 1950 Sex: F Assigned Patient Location: MS Current Patient Location: MS Accession/Order Number: [id number] Exam Date: 03/31/2023 10:10 Report Date: 03/31/2023 10:53 At the request of: ALE STONE Procedure: XR chest 2V CLINICAL HISTORY: Pneumonia, CHF. EXAMINATION: PA and lateral chest: 03/31/2023. COMPARISON: AP chest 03/30/2023. FINDINGS: Scattered patchy densities in the left lung, right upper lobe, right lower lobe distribution most prominent in the right upper lobe distribution with some linear appearing densities remaining unchanged. No new infiltrates, pleural effusions, pulmonary edema, or pneumothorax is seen. The heart size remains normal. The aorta is slightly tortuous and mildly atherosclerotic. There are some surgical sutures along the left aspect of the thorax. XR/XR chest 2V IMPRESSION: Multifocal infiltrative changes, essentially overall unchanged. Electronically authenticated by: JULISSA LOVELACE Date: 03/31/2023 10:53
--- NOTE | 2023-03-31 10:04 | P.PN_ITS ---
Progress Note: Subjective Subjective Interval history: Patient does feel somewhat better this morning. Feels like she is ready to go home. See below though. Exam Constitutional Vital Signs, click to edit/add: Last Vital Signs Temp 98.7 F 03/31/23 05:21 Pulse 80 03/31/23 07:58 Resp 18 03/31/23 08:00 BP 170/63 H 03/31/23 05:21 Pulse Ox 91 L 03/31/23 08:06 O2 Del Method Room Air 03/31/23 08:06 O2 Flow Rate 2 03/31/23 06:53 FiO2 2 03/29/23 09:31 Chest Common normals: inspection of chest normal Respiratory Common normals: normal respiratory effort Cardio Common normals: regular rate and regular rhythm Progress Note: Objective Labs Labs: Short CBC 03/31/23 Range/Units 06:02 WBC 9.3 (4.0-11.0) 10^3/uL Hgb 14.1 (12.0-16.0) g/dL Hct 42.4 (36.0-48.0) % Plt Count 164 (150-450) 10^3/uL BMP 03/31/23 06:02 Sodium 137 Potassium 3.7 Chloride 102 Carbon Dioxide 28.8 BUN 15.0 Creatinine 0.56 Glucose 154 H Calcium 9.3 Liver Function 03/31/23 Range/Units 06:02 Total Bilirubin 0.4 (0.2-1.0) mg/dL AST 40 H (15-37) U/L ALT 8 L (14-59) U/L Alkaline Phosphatase 90 (46-116) U/L Albumin 2.5 L (3.4-5.0) g/dL Progress Note: A&P Assessment and Plan (1) Multifocal pneumonia: (2) Acute hypoxic respiratory failure: (3) Type 2 diabetes mellitus with hyperglycemia: (4) HTN (hypertension): (5) CAD (coronary artery disease): (6) Parkinson disease: Plan Multifocal pneumonia with acute hypoxic respiratory failure-May be an element of sleep apnea as well. She has been able to wean off her supplemental oxygen this morning. With the way the x-ray shows check BNP which was significantly elevated. Creatinine is normal so I do believe the acute elevation in her BNP is consistent with acute systolic heart failure-will diurese this morning. Check troponin. Serial cardiac markers. Repeat BNP in a.m. No discharge today. Type 2 diabetes mellitus with hyperglycemia:-Continue with current insulin sliding scale HTN with acute NSTEMI -Continue with current medications but will add metoprolol CAD (coronary artery disease)-denies chest pain, but she states she did not have any chest pain with previous LA either. Add aspirin Parkinson disease -continue current medications Patient unable to be discharged today with acute findings of acute systolic heart failure and elevated troponin-will trend the enzymes, discussed with cardiology, inpatient status.
--- NOTE | 2023-03-31 10:18 | PT.DAILY ---
Physical Therapy Daily Note PT Daily Note/Assess Start: 03/30/23 11:15 Freq: Status: Active Protocol: Document 03/31/23 10:13 DARRION (Rec: 03/31/23 10:17 DARRION [id number]) Physical Therapy Daily Note/Assessment Time In/Time Out Time In 09:48 Time Out 10:03 Pain In Pain N/A Pain Out Pain N/A Subjective Subjective Pt supine upon arrival. Nursing reports she will be leaving and asked if I could help her get dressed and up to restroom - therapist agreed. Therapeutic Activity Treatment Bed Mobility Ability Minimum Assist Chair Transfer Ability Contact Guard Assist Therapeutic Activity Comments Pt performs supine>sit transfer with Ervin to advance upper body to sit EOB. Sit> stand to RW CGA. Pt amb 25' to restroom with RW no LOB, SBA. Pt needs assistance to doff gown, tele and brief. Pt is able to wash hands, face, and upper body with set up only. Assistance to wash back and periarea - also to apply powder. Pt able to dress upper body with set up only but needs assistance for lower body and new brief. Pt sit> stand SBA with grab bar. Needs assistance to pull pants up. Pt then amb 40' in room over to BS chair. Pt remains in BS chair as XRAY arrives to take pt down. Summary Daily Note Summary Improving transfer ability. Min fatigue with this activity . Edit Result 03/31/23 10:13 DARRION (Rec: 03/31/23 10:18 DARRION [id number]) Physical Therapy Daily Note/Assessment Therapeutic Activity Time Therapeutic Activity Minutes (minutes) 13 Therapeutic Activity Units 1 Total Physical Therapy Time Total Therapy Minutes 13 Total Physical Therapy Units 1
[2023-03-31] MEDS: FUROSEMIDE 40 MG/4 ML VIAL IVP (10:20)
[2023-03-31] MEDS: ALPRAZOLAM 0.25 MG TABLET PO (10:25)
[2023-03-31] MEDS: AZITHROMYCIN 500 MG in 0.9 % SODIUM CHLORIDE 250 ML 250 MG IV (10:39)
[2023-03-31 10:58] LABS: Glucometer 160 mg/dL (74-106)
[2023-03-31 11:24] LABS: Troponin I High Sensitivity 1095.4 pg/mL (4.0-51.3)
[2023-03-31 13:24] LABS: Troponin I High Sensitivity 1110.5 pg/mL (4.0-51.3)
[2023-03-31] MEDS: METOPROLOL TARTRATE 25 MG TABLET PO (13:33)
--- NOTE | 2023-03-31 14:39 | ECG_ITS ---
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
--- NOTE | 2023-03-31 14:55 | CA_ITS ---
Patient Name: JAXSON QUEZADA MR#: [id number] : 1950 Exam Date: 04/02/2023 Ordering Doctor: DR ALE STONE . ECHOCARDIOGRAM REPORT PROCEDURE: CA ECHO LIMITED INDICATIONS: Congestive heart failure, NSTEMI, CABGx3, hypertension,diabetes COMPARISON: None. DESCRIPTION: Limited ECHOCARDIOGRAM Real-time transthoracic echocardiography with 2D and M-mode performed. QUALITY: Technical quality was adequate. Limited echocardiogram per physician. 63 , 132#, BSA 1.62 m2. LEFT VENTRICLE: Normal chamber size. Thickened septal wall. LV EF: Global left ventricular systolic function is normal; visually estimated ejection fraction is 55 to 60%. Abnormal septal motion; this is not an unusual finding in the post open heart patient. LEFT ATRIUM: Normal chamber size. RIGHT ATRIUM: Normal chamber size. RIGHT VENTRICLE: Normal chamber size. Normal systolic function. TRICUSPID VALVE: Normal thickness. MITRAL VALVE: Mildly thickened. Mild mitral annular calcification. AORTIC VALVE: Normal trileaflet appearance. Severely calcified aortic valve. AORTIC ROOT: Normal diameter and appearance. PULMONIC VALVE: Normal thickness. PERICARDIUM: No evidence of pericardial effusion. IVC: IVC is normal in size with partial collapse. CONCLUSION: 1. Global left ventricular systolic function is normal; visually estimated ejection fraction is 55 to 60% 2. The right ventricle is normal size and systolic function 3. The aortic valve is severely calcified A limited echocardiogram was performed Adult Echocardiography Procedure Report Left Ventricle LVEDD (3.7 - 5.6 cm): 4.85 cm LVESD (2.2 - 4.0 cm): 3.72 cm LVIVS thickness (0.6 - 1.2 cm): 1.22 cm LVPW thickness (0.5 - 1.0 cm): 8.25 mm LVOT Diameter 2.10 cm Left Ventricular Ejection Fraction: 46.50 % Left Atrium LA Volume Index (2D A2C): 05370 mm3 Left Atrium Systolic Dimension: 3.50 cm Mitral Valve Right Ventricle Aorta AO Root Diam: 3.10 cm Aortic Valve Tricuspid Valve Pulmonic Valve Right Atrium Dictated by: Claritza Bello M.D. on 04/02/2023 at 13:53 Approved by: Claritza Bello M.D. on 04/02/2023 at 13:57
[2023-03-31 16:21] LABS: Glucometer 106 mg/dL (74-106)
[2023-03-31 17:24] LABS: Troponin I High Sensitivity 1941.2 pg/mL (4.0-51.3)
[2023-03-31 17:24] LABS: Troponin I High Sensitivity 1938.9 pg/mL (4.0-51.3)
[2023-03-31 20:01] LABS: Glucometer 180 mg/dL (74-106)
[2023-03-31] MEDS: ENOXAPARIN SODIUM 60 MG/0.6 ML SYRINGE SUBQ (21:18)
[2023-03-31] MEDS: ATORVASTATIN CALCIUM 40 MG TABLET PO (21:19)
--- NOTE | 2023-03-31 21:58 | PC.NURSE ---
KYLE medina text the night COMBAT SYSTEMS ENGINEER covering for the patient, due to HR 55 and pt had an order for metoprolol. hospitalist stated to hold the metoprolol due to the patient being bradycardic
[2023-04-01] VITALS (19 sets, daily range): BP systolic 95–155; BP diastolic 42–58; PULSE 52–68; RESP 16–18; TEMP 36.6–36.8; O2SAT 86–94
--- NOTE | 2023-04-01 02:31 | PC.NURSE ---
Pt had a 7 beat run of V-tach at 0208. Pt HR is now 53. Pt has no complaints of any pain or discomfort at this time. Nightshift IMMIGRATION INVESTIGATOR made aware of the change. Pulse ox was checked, she was 86% on room air. RN placed the pt on 2 Liters nasal cannula and her oxygenation improved to 90%
[2023-04-01] MEDS: CARBIDOPA/LEVODOPA 25 MG-100 MG TABLET 1 TAB PO ×4 (05:10→21:27)
[2023-04-01] MEDS: PRIMIDONE 50 MG TABLET PO ×4 (05:10→21:27)
[2023-04-01] MEDS: PREGABALIN 100 MG CAPSULE 200 MG PO ×3 (05:10→21:27)
[2023-04-01 06:26] LABS: Basophils Percent Auto 0.4 % (0.2-2.0); Eosinophils Absolute Auto 0.2 10^3/uL (0.0-0.7); Eosinophils Percent Auto 2.3 % (0.9-7.0); Hematocrit 44.8 % (36.0-48.0); Hemoglobin 14.9 g/dL (12.0-16.0); Immature Granulocytes Abs Auto 0.04 10^3/uL (0.00-0.03); Immature Granulocytes Pct Auto 0.4 % (0.0-0.5); Lymphocytes Absolute Auto 3.8 10^3/uL (1.2-3.8); Lymphocytes Percent Auto 39.3 % (20.5-60.0); Mean Corpuscular HGB Conc 33.3 g/dL (29.9-35.2); Mean Corpuscular Hemoglobin 32.3 pg (26.7-34.0); Mean Platelet Volume 12.9 fL (9.5-13.5); Monocytes Absolute Auto 0.8 10^3/uL (0.3-0.8); Neutrophils Absolute Auto 4.7 10^3/uL (1.4-6.5); Neutrophils Percent Auto 49.6 % (43.0-75.0); Platelet Count 155 10^3/uL (150-450); Red Blood Count 4.62 10^6/uL (4.20-5.40); White Blood Count 9.5 10^3/uL (4.0-11.0)
[2023-04-01 06:35] LABS: Alanine Aminotransferase 15 U/L (14-59); Albumin Globulin Ratio 0.6; Albumin Level 2.5 g/dL (3.4-5.0); Alkaline Phosphatase 101 U/L (46-116); Anion Gap 9.9; Aspartate Amino Transferase 28 U/L (15-37); BUN Creatinine Ratio 35.5; Bilirubin Total 0.3 mg/dL (0.2-1.0); Calcium 9.6 mg/dL (8.5-10.1); Chloride 103 mmol/L (98-107); Estimated GFR (African America >60 (>=60); Estimated GFR (Non-African Ame >60 (>=60); Globulin 4.2 g/dL; Glucose 133 mg/dL (74-106); Potassium 3.9 mmol/L (3.5-5.1); Sodium 139 mmol/L (136-145); Total Protein 6.7 g/dL (6.4-8.2)
[2023-04-01 06:57] LABS: Troponin I High Sensitivity 856.2 pg/mL (4.0-51.3)
[2023-04-01] MEDS: CEFTRIAXONE 1 MG in 0.9 % SODIUM CHLORIDE 50 ML 100 MG IV (09:15)
[2023-04-01] MEDS: CLOPIDOGREL BISULFATE 75 MG TABLET PO (09:16)
[2023-04-01] MEDS: ISOSORBIDE MONONITRATE 30 MG TAB.ER.24H PO (09:16)
[2023-04-01] MEDS: OXYBUTYNIN CHLORIDE 5 MG TAB XL 10 MG PO (09:16)
[2023-04-01] MEDS: GUAIFENESIN 600 MG TAB.ER.12H PO ×2 (09:16→21:27)
[2023-04-01] MEDS: METOPROLOL TARTRATE 25 MG TABLET PO (09:16)
[2023-04-01] MEDS: ENOXAPARIN SODIUM 60 MG/0.6 ML SYRINGE SUBQ ×2 (09:16→21:27)
[2023-04-01] MEDS: ENSURE HP 237 ML LIQUID PO ×2 (09:16→21:27)
[2023-04-01] MEDS: CITALOPRAM HYDROBROMIDE 20 MG TABLET 40 MG PO (09:16)
--- NOTE | 2023-04-01 09:18 | P.PN_ITS ---
Progress Note: Subjective Subjective Interval history: Patient denies complaint, she does have dyspnea with activity and hypoxia at at bedtime Exam Constitutional Vital Signs, click to edit/add: Last Vital Signs Temp 98.2 F 04/01/23 05:13 Pulse 68 04/01/23 08:00 Resp 18 04/01/23 05:13 BP 155/53 H 04/01/23 05:13 Pulse Ox 90 L 04/01/23 05:13 O2 Del Method Nasal Cannula 04/01/23 05:13 O2 Flow Rate 2 04/01/23 05:13 FiO2 2 03/29/23 09:31 Chest Common normals: inspection of chest normal Respiratory Common normals: normal respiratory effort Auscultation: rales (Bases) Cardio Common normals: regular rate and regular rhythm Progress Note: Objective Labs Labs: Short CBC 04/01/23 Range/Units 04:37 WBC 9.5 (4.0-11.0) 10^3/uL Hgb 14.9 (12.0-16.0) g/dL Hct 44.8 (36.0-48.0) % Plt Count 155 (150-450) 10^3/uL BMP 04/01/23 04:37 Sodium 139 Potassium 3.9 Chloride 103 Carbon Dioxide 30.0 BUN 22.0 H Creatinine 0.62 Glucose 133 H Calcium 9.6 Liver Function 04/01/23 Range/Units 04:37 Total Bilirubin 0.3 (0.2-1.0) mg/dL AST 28 (15-37) U/L ALT 15 (14-59) U/L Alkaline Phosphatase 101 (46-116) U/L Albumin 2.5 L (3.4-5.0) g/dL Progress Note: A&P Assessment and Plan (1) Multifocal pneumonia: (2) Acute hypoxic respiratory failure: (3) Type 2 diabetes mellitus with hyperglycemia: (4) HTN (hypertension): (5) CAD (coronary artery disease): (6) Parkinson disease: Plan Multifocal pneumonia with acute hypoxic respiratory failure-May be an element of sleep apnea as well. With the way the x-ray shows check BNP which was significantly elevated. Creatinine is normal so I do believe the acute elevation in her BNP is consistent with acute systolic heart failure-will diurese this morning. Acute elevation of troponin from admission. Likely NSTEMI from admission. Discussed case with [facility] cardiology and agreed to accept patient in transfer for further cardiac workup. Patient has a history of coronary artery disease with three-vessel bypass 22 years ago-repeat Lasix dose today, continue with anticoagulation Type 2 diabetes mellitus with hyperglycemia:-Continue with current insulin sliding scale HTN with acute NSTEMI -see above CAD (coronary artery disease)-denies chest pain, but she states she did not have any chest pain with previous [place] either. Add aspirin Parkinson disease -continue current medications Patient status-awaiting transfer
[2023-04-01] MEDS: AZITHROMYCIN 500 MG in 0.9 % SODIUM CHLORIDE 250 ML 250 MG IV (10:00)
[2023-04-01] MEDS: HYDROCODONE/ACET 10-325 MG TABLET 1 TAB PO ×2 (10:00→17:47)
[2023-04-01] MEDS: FUROSEMIDE 40 MG/4 ML VIAL IVP (10:05)
[2023-04-01 11:04] LABS: Glucometer 227 mg/dL (74-106)
--- NOTE | 2023-04-01 11:06 | PC.NURSE ---
patient had a large, brown, formed BM
[2023-04-01] MEDS: INSULIN ASPART 300 UNIT/3 ML PEN SUBQ ×2 (11:52→21:33)
[2023-04-01 12:27] LABS: ABG PCO2 40.5 mmHg (35.0-45.0); HCO3 ABG 29.1 mmol/L (22.0-26.0); pH ABG 7.464 (7.350-7.450)
[2023-04-01 12:28] LABS: Allen Test POSITIVE (POSITIVE); Base Excess ABG 5.3 mmol/L (-2.0-2.0); O2 Mode ROOM AIR
[2023-04-01 12:29] LABS: Puncture Site R BRACHIAL
[2023-04-01] MEDS: TIZANIDINE HCL 4 MG TABLET PO ×2 (13:52→21:27)
[2023-04-01 16:29] LABS: Glucometer 80 mg/dL (74-106)
[2023-04-01 20:56] LABS: Glucometer 143 mg/dL (74-106)
[2023-04-01] MEDS: ATORVASTATIN CALCIUM 40 MG TABLET PO (21:27)
[2023-04-02] VITALS (20 sets, daily range): BP systolic 102–118; BP diastolic 45–72; PULSE 52–68; RESP 16–18; TEMP 36.6–36.7; O2SAT 90–91
[2023-04-02] MEDS: PRIMIDONE 50 MG TABLET PO ×4 (06:08→21:37)
[2023-04-02] MEDS: CARBIDOPA/LEVODOPA 25 MG-100 MG TABLET 1 TAB PO ×4 (06:08→21:37)
[2023-04-02] MEDS: PREGABALIN 100 MG CAPSULE 200 MG PO ×3 (06:08→21:37)
[2023-04-02] MEDS: TIZANIDINE HCL 4 MG TABLET PO ×2 (06:15→21:37)
[2023-04-02 06:42] LABS: Basophils Absolute Auto 0.1 10^3/uL (0.0-0.1); Basophils Percent Auto 0.6 % (0.2-2.0); Eosinophils Absolute Auto 0.2 10^3/uL (0.0-0.7); Eosinophils Percent Auto 2.6 % (0.9-7.0); Hematocrit 44.4 % (36.0-48.0); Hemoglobin 14.6 g/dL (12.0-16.0); Immature Granulocytes Abs Auto 0.06 10^3/uL (0.00-0.03); Immature Granulocytes Pct Auto 0.7 % (0.0-0.5); Lymphocytes Absolute Auto 3.7 10^3/uL (1.2-3.8); Lymphocytes Percent Auto 45.7 % (20.5-60.0); Mean Corpuscular HGB Conc 32.9 g/dL (29.9-35.2); Mean Corpuscular Hemoglobin 32.4 pg (26.7-34.0); Mean Corpuscular Volume 98.7 fL (81.0-99.0); Mean Platelet Volume 12.6 fL (9.5-13.5); Monocytes Absolute Auto 0.5 10^3/uL (0.3-0.8); Monocytes Percent Auto 6.4 % (1.7-12.0); Neutrophils Absolute Auto 3.5 10^3/uL (1.4-6.5); Platelet Count 164 10^3/uL (150-450); Red Cell Distribution Width 13.8 % (11.0-15.0); White Blood Count 8.1 10^3/uL (4.0-11.0)
--- NOTE | 2023-04-02 08:10 | P.PN_ITS ---
Progress Note: Subjective Subjective Interval history: some back pain - otherwise no complaints, Off O2 all night Exam Constitutional Vital Signs, click to edit/add: Last Vital Signs Temp 97.9 F 04/02/23 04:12 Pulse 68 04/02/23 08:09 Resp 18 04/02/23 04:12 BP 118/45 L 04/02/23 04:12 Pulse Ox 90 L 04/02/23 04:45 O2 Del Method Room Air 04/02/23 04:45 O2 Flow Rate 2 04/01/23 05:13 FiO2 2 03/29/23 09:31 Chest Common normals: inspection of chest normal Respiratory Common normals: normal respiratory effort Auscultation: rales (Bases) Cardio Common normals: regular rate and regular rhythm Progress Note: Objective Labs Labs: Short CBC 04/02/23 Range/Units 04:51 WBC 8.1 (4.0-11.0) 10^3/uL Hgb 14.6 (12.0-16.0) g/dL Hct 44.4 (36.0-48.0) % Plt Count 164 (150-450) 10^3/uL Progress Note: A&P Assessment and Plan (1) Multifocal pneumonia: (2) Acute hypoxic respiratory failure: (3) Type 2 diabetes mellitus with hyperglycemia: (4) HTN (hypertension): (5) CAD (coronary artery disease): (6) Parkinson disease: Plan Multifocal pneumonia with acute hypoxic respiratory failure-May be an element of sleep apnea as well. With the way the x-ray shows check BNP which was significantly elevated. Creatinine is normal so I do believe the acute elevation in her BNP is consistent with acute systolic heart failure-will cont diurese this morning. Acute elevation of troponin from admission. Likely NSTEMI from admission. Discussed case with [facility] cardiology and agreed to accept patient in transfer for further cardiac workup. Patient has a history of coronary artery disease with three-vessel bypass 22 years ago-repeat Lasix dose today, continue with anticoagulation, consult to cardiology if not transferred - bnp, hst both better today Type 2 diabetes mellitus with hyperglycemia:-Continue with current insulin sliding scale HTN with acute NSTEMI -see above CAD (coronary artery disease)-denies chest pain, but she states she did not have any chest pain with previous [place] either. Add aspirin Parkinson disease -continue current medications Patient status-awaiting transfer
[2023-04-02 08:14] LABS: Glucometer 142 mg/dL (74-106)
[2023-04-02] MEDS: CEFTRIAXONE 1 MG in 0.9 % SODIUM CHLORIDE 50 ML 100 MG IV (09:05)
[2023-04-02] MEDS: ENSURE HP 237 ML LIQUID PO ×2 (09:06→21:37)
[2023-04-02] MEDS: ISOSORBIDE MONONITRATE 30 MG TAB.ER.24H PO (09:06)
[2023-04-02] MEDS: CITALOPRAM HYDROBROMIDE 20 MG TABLET 40 MG PO (09:07)
[2023-04-02] MEDS: METOPROLOL TARTRATE 25 MG TABLET PO ×2 (09:07→21:37)
[2023-04-02] MEDS: OXYBUTYNIN CHLORIDE 5 MG TAB XL 10 MG PO (09:08)
[2023-04-02] MEDS: ALPRAZOLAM 0.25 MG TABLET PO ×2 (09:08→21:37)
[2023-04-02] MEDS: GUAIFENESIN 600 MG TAB.ER.12H PO ×2 (09:08→21:37)
--- NOTE | 2023-04-02 09:08 | CM.NOTE ---
Rounds made with Dr. Llamas. Complaints of back pain from bed but offers no further complaints. Awaiting transfer to Tertiary Facility.
[2023-04-02] MEDS: HYDROCODONE/ACET 10-325 MG TABLET 1 TAB PO ×2 (09:09→13:16)
[2023-04-02] MEDS: ENOXAPARIN SODIUM 60 MG/0.6 ML SYRINGE SUBQ ×2 (09:10→21:37)
[2023-04-02] MEDS: CLOPIDOGREL BISULFATE 75 MG TABLET PO (09:10)
[2023-04-02] MEDS: FUROSEMIDE 40 MG/4 ML VIAL IVP (09:21)
[2023-04-02 09:22] LABS: Troponin I High Sensitivity 486.5 pg/mL (4.0-51.3)
[2023-04-02 09:39] LABS: Alanine Aminotransferase 10 U/L (14-59); Albumin Globulin Ratio 0.7; Albumin Level 2.5 g/dL (3.4-5.0); Alkaline Phosphatase 88 U/L (46-116); Anion Gap 9.2; Aspartate Amino Transferase 23 U/L (15-37); BUN Creatinine Ratio 39.4; Bilirubin Total 0.3 mg/dL (0.2-1.0); Calcium 9.2 mg/dL (8.5-10.1); Carbon Dioxide 30.7 mmol/L (21.0-32.0); Chloride 104 mmol/L (98-107); Estimated GFR (African America >60 (>=60); Estimated GFR (Non-African Ame >60 (>=60); Globulin 3.8 g/dL; Glucose 145 mg/dL (74-106); Potassium 3.9 mmol/L (3.5-5.1); Sodium 140 mmol/L (136-145); Total Protein 6.3 g/dL (6.4-8.2)
--- NOTE | 2023-04-02 10:51 | PT.DAILY ---
Physical Therapy Daily Note PT Daily Note/Assess Start: 03/30/23 11:15 Freq: Status: Active Protocol: Document 04/02/23 10:20 GIFTY (Rec: 04/02/23 10:51 [email or web address] [id number]) Physical Therapy Daily Note/Assessment Time In/Time Out Time In 10:23 Time Out 10:36 Subjective Subjective Patient up in bathroom, states back and legs are hurting from being up in chair all morning wishes to ambulate back to bed. Nursing okay with this. Therapeutic Activity Time Therapeutic Activity Minutes (minutes) 13 Therapeutic Activity Units 1 Therapeutic Activity Treatment Bed Mobility Ability Minimum Assist Chair Transfer Ability Contact Guard Assist Therapeutic Activity Comments Sit to stand from different level surfaces CGA. Static standing at RW with B UE support SBA. Gait 35' with RW SBA, slow steady with step to pattern. Patient did require min assist at B LE for sit to supine. Total Physical Therapy Time Total Therapy Minutes 13 Total Physical Therapy Units 1 Summary Daily Note Summary Fatigues easily with short distance of gait. Denies being SOB. Patient moves slow with RW, but no LOB and only required SBA. Did need assistance to get LE's back into bed. At this time patient is waiting on transfer to [facility] for cardiology.
[2023-04-02] MEDS: AZITHROMYCIN 500 MG in 0.9 % SODIUM CHLORIDE 250 ML 250 MG IV (10:59)
[2023-04-02 11:25] LABS: Glucometer 249 mg/dL (74-106)
[2023-04-02] MEDS: INSULIN ASPART 300 UNIT/3 ML PEN SUBQ ×2 (12:00→21:41)
[2023-04-02 16:18] LABS: Glucometer 96 mg/dL (74-106)
[2023-04-02 20:36] LABS: Glucometer 236 mg/dL (74-106)
--- NOTE | 2023-04-02 20:52 | PC.NURSE ---
Pt changed for a large wet brief. Hailee care done and clean dry brief applied. Pt was then readjusted on bed and placed on her rt side.
[2023-04-02] MEDS: ATORVASTATIN CALCIUM 40 MG TABLET PO (21:37)
[2023-04-03] VITALS (14 sets, daily range): BP systolic 93–133; BP diastolic 46–65; PULSE 46–83; RESP 18–20; TEMP 36.7–36.8; O2SAT 90–96
[2023-04-03 04:32] LABS: Basophils Absolute Auto 0.1 10^3/uL (0.0-0.1); Basophils Percent Auto 0.6 % (0.2-2.0); Eosinophils Absolute Auto 0.2 10^3/uL (0.0-0.7); Eosinophils Percent Auto 2.7 % (0.9-7.0); Hematocrit 43.2 % (36.0-48.0); Hemoglobin 14.2 g/dL (12.0-16.0); Immature Granulocytes Abs Auto 0.07 10^3/uL (0.00-0.03); Immature Granulocytes Pct Auto 0.8 % (0.0-0.5); Lymphocytes Absolute Auto 3.4 10^3/uL (1.2-3.8); Lymphocytes Percent Auto 39.9 % (20.5-60.0); Mean Corpuscular HGB Conc 32.9 g/dL (29.9-35.2); Mean Corpuscular Hemoglobin 32.1 pg (26.7-34.0); Mean Corpuscular Volume 97.5 fL (81.0-99.0); Mean Platelet Volume 11.8 fL (9.5-13.5); Monocytes Absolute Auto 0.6 10^3/uL (0.3-0.8); Monocytes Percent Auto 7.5 % (1.7-12.0); Neutrophils Absolute Auto 4.1 10^3/uL (1.4-6.5); Neutrophils Percent Auto 48.5 % (43.0-75.0); Platelet Count 220 10^3/uL (150-450); Red Blood Count 4.43 10^6/uL (4.20-5.40); Red Cell Distribution Width 13.7 % (11.0-15.0); White Blood Count 8.5 10^3/uL (4.0-11.0)
[2023-04-03 04:50] LABS: Alanine Aminotransferase 11 U/L (14-59); Albumin Globulin Ratio 0.7; Albumin Level 2.5 g/dL (3.4-5.0); Alkaline Phosphatase 100 U/L (46-116); Anion Gap 9.6; Aspartate Amino Transferase 21 U/L (15-37); BUN Creatinine Ratio 42.2; Bilirubin Total 0.3 mg/dL (0.2-1.0); Calcium 9.1 mg/dL (8.5-10.1); Carbon Dioxide 31.5 mmol/L (21.0-32.0); Chloride 104 mmol/L (98-107); Estimated GFR (African America >60 (>=60); Estimated GFR (Non-African Ame >60 (>=60); Globulin 3.8 g/dL; Glucose 107 mg/dL (74-106); Potassium 4.1 mmol/L (3.5-5.1); Sodium 141 mmol/L (136-145); Total Protein 6.3 g/dL (6.4-8.2)
[2023-04-03] MEDS: TIZANIDINE HCL 4 MG TABLET PO (05:00)
[2023-04-03] MEDS: ALPRAZOLAM 0.25 MG TABLET PO ×2 (05:00→13:45)
[2023-04-03] MEDS: CARBIDOPA/LEVODOPA 25 MG-100 MG TABLET 1 TAB PO (05:00)
[2023-04-03] MEDS: PRIMIDONE 50 MG TABLET PO (05:00)
[2023-04-03] MEDS: PREGABALIN 100 MG CAPSULE 200 MG PO (05:00)
[2023-04-03 06:20] LABS: Troponin I High Sensitivity 278.6 pg/mL (4.0-51.3)
--- NOTE | 2023-04-03 08:47 | P.DS_ITS ---
DS: Providers Provider Date of admission: 03/29/23 11:30 Primary care physician: BELINDA PONCE Consults: 03/29/23 Consult to Dough Puncher Routine Reason for consult:: Other Other reason:: Questionairre 03/29/23 12:23 Physical Therapy Eval and Treat Routine Reason for consultation: Generalized weakness Has provider been notified: No 03/29/23 12:24 Occupational Therapy Eval and Treat Routine Reason for consultation: Generalized weakness Has provider been notified: No DS: Diagnosis Discharge Diagnosis (1) Multifocal pneumonia: (2) Acute hypoxic respiratory failure: (3) Type 2 diabetes mellitus with hyperglycemia: (4) HTN (hypertension): (5) CAD (coronary artery disease): (6) Parkinson disease: Plan Multifocal pneumonia with acute hypoxic respiratory failure-May be an element of sleep apnea as well. With the way the x-ray shows check BNP which was significantly elevated. Creatinine is normal so I do believe the acute elevation in her BNP is consistent with acute systolic heart failure-will cont diurese this morning. Acute elevation of troponin from admission. Likely NSTEMI from admission. Type 2 diabetes mellitus with hyperglycemia HTN with acute NSTEMI CAD (coronary artery disease) Parkinson disease ? DS: Summary Hospital Course Hospital Course: Patient was seen and evaluated in the emergency room with increasing cough and some shortness of breath. Found to have what was felt to be multifocal pneumonia. Given IV fluids and IV antibiotics. I started seeing the patient changes into the hospital course. She had some increase in her hypoxia overnight that night so I did order BNP which was significantly elevated, ordered high-sensitivity troponins which was also significantly elevated. Went back and ordered labs from ER blood in the day prior to me seeing her all of which were positive. Patient likely had NSTEMI on admission from the multifocal pneumonia. Laboratory values were improving day 3. Case was discussed with [facility] cardiology and they recommended transfer for heart cath. That will be obtained today. Patient overall is been improving. Markers have been improving daily. She had good diuresis 2 days ago with the initial dose of Lasix. Stable since that time. Medications see list. Follow-up with PCP at discharge from [facility]. Within the next week. Time Spent with Patient Time attestation: Total time spent providing and/or coordinating discharge services: Exam Constitutional Vital Signs, click to edit/add: Last Vital Signs Temp 98.1 F 04/03/23 05:39 Pulse 51 L 04/03/23 08:00 Resp 18 04/03/23 05:39 BP 133/65 04/03/23 05:39 Pulse Ox 90 L 04/03/23 05:39 O2 Del Method Room Air 04/03/23 05:39 O2 Flow Rate 2 04/01/23 05:13 FiO2 2 03/29/23 09:31 Chest Common normals: inspection of chest normal Respiratory Common normals: normal respiratory effort Auscultation: rales (Bases) Cardio Common normals: regular rate and regular rhythm DS: Data Data Completed and Pending Labs on day of discharge: Labs from last 24 hours 04/03/23 04/02/23 04/02/23 04:02 20:25 16:16 WBC 8.5 RBC 4.43 Hgb 14.2 Hct 43.2 MCV 97.5 MCH 32.1 MCHC 32.9 RDW 13.7 Plt Count 220 MPV 11.8 Neut % (Auto) 48.5 Lymph % (Auto) 39.9 Bowman % (Auto) 7.5 Eos % (Auto) 2.7 Baso % (Auto) 0.6 Neut # (Auto) 4.1 Lymph # (Auto) 3.4 Bowman # (Auto) 0.6 Eos # (Auto) 0.2 Baso # (Auto) 0.1 Abs Immat Gran (auto) 0.07 H Imm/Tot Granulo (auto) 0.8 H Sodium 141 Potassium 4.1 Chloride 104 Carbon Dioxide 31.5 Anion Gap 9.6 BUN 35.0 H Creatinine 0.83 Est GFR ( Amer) >60 Est GFR (Non-Af Amer) >60 BUN/Creatinine Ratio 42.2 Glucose 107 H Calcium 9.1 Total Bilirubin 0.3 AST 21 ALT 11 L Alkaline Phosphatase 100 Troponin I High Sens 278.6 H* NT-Pro-B Natriuret Pep 637.0 Total Protein 6.3 L Albumin 2.5 L Globulin 3.8 Albumin/Globulin Ratio 0.7 POC Glucose 236 H 96 04/02/23 04/02/23 04/02/23 11:23 06:00 04:51 WBC RBC Hgb Hct MCV MCH MCHC RDW Plt Count MPV Neut % (Auto) Lymph % (Auto) Bowman % (Auto) Eos % (Auto) Baso % (Auto) Neut # (Auto) Lymph # (Auto) Bowman # (Auto) Eos # (Auto) Baso # (Auto) Abs Immat Gran (auto) Imm/Tot Granulo (auto) Sodium 140 Potassium 3.9 Chloride 104 Carbon Dioxide 30.7 Anion Gap 9.2 BUN 26.0 H Creatinine 0.66 Est GFR ( Amer) >60 Est GFR (Non-Af Amer) >60 BUN/Creatinine Ratio 39.4 Glucose 145 H Calcium 9.2 Total Bilirubin 0.3 AST 23 ALT 10 L Alkaline Phosphatase 88 Troponin I High Sens 486.5 H* NT-Pro-B Natriuret Pep 1152.0 H Total Protein 6.3 L Albumin 2.5 L Globulin 3.8 Albumin/Globulin Ratio 0.7 POC Glucose 249 H Preliminary micro results at discharge 03/29/23 09:47 - Preliminary Blood NO GROWTH AT 36-48 HOURS. FINAL TO FOLLOW. 03/29/23 09:44 Blood Culture Result 1 - Preliminary Blood NO GROWTH AT 36-48 HOURS. FINAL TO FOLLOW. 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
--- NOTE | 2023-04-03 08:56 | CM.NOTE ---
Rounds made with Dr. Llamas pt will transfer to [facility] today.
--- NOTE | 2023-04-03 10:27 | CM.NOTE ---
2nd Notice of Important message From Medicare discussed with pt, pt denies any questions or concerns.
[2023-04-03] MEDS: CEFTRIAXONE 1 MG in 0.9 % SODIUM CHLORIDE 50 ML 100 MG IV (10:31)
[2023-04-03] MEDS: FUROSEMIDE 40 MG/4 ML VIAL IVP (10:37)
[2023-04-03 11:12] LABS: Glucometer 133 mg/dL (74-106)
[2023-04-03] MEDS: AZITHROMYCIN 500 MG in 0.9 % SODIUM CHLORIDE 250 ML 250 MG IV (12:54)
[2023-04-03] MEDS: HYDROCODONE/ACET 10-325 MG TABLET 1 TAB PO (13:45)
== END 2023-04-03 17:45 | disposition short-term general hospital (02) | DRG 193 ==
LOC: ER 10:22 → MS 11:34
PROVIDERS: Family Medicine; Nurse Practitioner; Admitting Provider Family Medicine; Emergency Provider Emergency Medicine; PCP Internal Medicine; Visit Provider Family Medicine
DX: J18.9 Pneumonia, unspecified organism (principal); I21.4 Non-ST elevation (NSTEMI) myocardial infarction; J96.01 Acute respiratory failure with hypoxia; I50.21 Acute systolic (congestive) heart failure; I10 Essential (primary) hypertension; G20.A1 Parkinson's disease without dyskinesia, without mention of fluctuations; E78.5 Hyperlipidemia, unspecified; E86.0 Dehydration; F32.A Depression, unspecified; E11.65 Type 2 diabetes mellitus with hyperglycemia; I25.10 Atherosclerotic heart disease of native coronary artery without angina pectoris; I25.2 Old myocardial infarction; F17.200 Nicotine dependence, unspecified, uncomplicated; N32.81 Overactive bladder; Z79.84 Long term (current) use of oral hypoglycemic drugs; Z79.899 Other long term (current) drug therapy; Z95.1 Presence of aortocoronary bypass graft; Z79.02 Long term (current) use of antithrombotics/antiplatelets; Z82.49 Family history of ischemic heart disease and other diseases of the circulatory system; G47.30 Sleep apnea, unspecified
CPT/HCPCS: 0202U; 36415; 36600; 71045; 71046; 80048; 80053; 82805; 82948; 83036; 83605; 83880; 84484; 85025; 87040; 87070; 87635; 87804; 87811; 87880; 93005; 93308; 94640; 94667; 94668; 94761; 96365; 96366; 96368; 96372; 96375; 96376; 97161; 97165; 97530; 97535; 99285; J0456; J0696; J1650; J1940

== ENCOUNTER 2023-04-19 15:05 | Outpatient (OUT) | payer MEDICARE, MEDICAID, SELFPAY ==
--- OUTSIDE RECORDS SUMMARY | 2023-04-19 15:10 | XMS_ITS | CCD ---
Author Name Unknown Address [id number] [place] [address] Organization [facility] Care Team Providers Care Lead Javascript Engineer Name Role Phone PHYSICIAN, DEFAULT Unavailable Unavailable PHYSICIAN, DEFAULT Unavailable VILLA Preston Unavailable Unavailable VILLA NICOLAS Primary Care Unavailable Jennifer, Ambrose Castellanos Admitting Unavail able Jennifer, Ambrose Castellanos Attending Unavail able VILLA NICOLAS Consulting Unavailable VILLA NICOLAS Primary Care Unavailable Jennifer, Ambrose Castellanos Admitting Unavail able Jennifer, Ambrose Castellanos Attending Unavail able Jennifer, Ambrose Castellanos Admitting Unavail able Jennifer, Ambrose Castellanos Attending Unavail able VILLA NICOLAS Primary Care Unavailable REBECA GOLDEN Admitting Unavailable REBECA GOLDEN Attending Unavailable FIDENCIO, DR TREVINO Primary Care Unavailable KAITLYNN, DR BLAYNE Ellis Consulting Unavailable CHANTELREBECA Consulting Unavailable FIDENCIO, DR TREVINO Admitting Unavailable FIDENCIO, DR TREVINO Attending Unavailable FIDENCIO, DR TREVINO Primary Care Unavailable REBECA GOLDEN Admitting Unavailable REBECA GOLDEN Attending Unavailable FIDENCIO, DR TREVINO Primary Care Unavailable FIDENCIO, DR TREVINO Consulting Unavailable DELMI, DR CHARY Gonzalez Consulting Unavailable REBECA GOLDEN Consulting Unavailable SINGH, YASMEEN Admitting Unavailable SINGH, YASMEEN Attending Unavailable FIDENCIO, DR TREVINO Primary Care Unavailable GARRET BENJAMIN Consulting Unavailable SINGH, YASMEEN Consulting Unavailable FIDENCIO, DR TREVINO Admitting Unavailable FIDENCIO, DR TREVINO Attending Unavailable FIDENCIO, DR TREVINO Primary Care Unavailable DR VILLA NICOLAS Consulting Unavailable DELMI, DR CHARY Gonzalez Consulting Unavailable VILLA NICOLAS Primary Care Unavailable CHRISTIAN WEBSTER Referring Unavailable CHRISTIAN WEBSTER Referring Unavailable VILLA NICOLAS Primary Care Unavailable VILLA NICOLAS Attending Unavailable Villa Nicolas MD Primary Care Provider ALE STONE Referring Unavailable BRUCE, SÁNCHEZ Admitting Unavailable DEENA GARCIA Attending Unavailable CLARITZA BELLO Referring Unavailable SELENE LIZ Referring Unavailable AGUSTO, SELENE Referring Unavailable ROSANA MIKE Attending Unavailable Allergies Allergy Classification Reported Allergen(s) Allergy Type Date of Onset Reaction(s) Facility (4 sources) amoxicillin / clavulanate; Translations: [Augmentin] Drug Allergy 0 [facility] (1 source) Penicillins Drug allergy (disorder) 0 [facility] [facility] (1 source) DULoxetine Drug Allergy 7 [facility] Repository (1 source) OXcarbazepine Drug Allergy 7 [facility] Repository (2 sources) DULoxetine Drug Allergy 7 Hives, Other (See Comments) Activaided Orthotics (2 sources) false ragweed pollen extract / western ragweed pollen extract Drug Allergy 3 Rash, Other (See Comments) Activaided Orthotics (2 sources) OXcarbazepine Drug Allergy 7 Other (See Comments) Activaided Orthotics (3 sources) Amoxicillin-Pot Clavulanate; Translations: [AMOXICILLIN-POT CLAVULANATE] Propensity to adverse reactions to drug 0 Angioedema [facility] SinCola Medications Current Medications Medication Drug Class(es) Dates Sig (Normalized) Sig (Original) acetaminophen 325 mg / HYDROcodone bitartrate 10 mg oral tablet (2 sources) Opioid Agonist Start: 10-11-2022 HYDROcodone-acetami nophen (NORCO) 10-325 MG per tablet Take 1 tablet by mouth in the morning and 1 tablet at noon and 1 tablet in the evening. 0 10/11/2022 Active aspirin 81 mg delayed release oral tablet (2 sources) Platelet Aggregation Inhibitor, Nonsteroidal Anti-inflammatory Drug take 1 tablet by mouth once daily aspirin 81 MG EC tablet Take 1 tablet by mouth daily 0 Active atorvastatin 20 mg oral tablet (2 sources) HMG-CoA Reductase Inhibitor Start: 03-10-2020 take 1 tablet by mouth once daily atorvastatin (LIPITOR) 20 MG tablet Take 1 tablet by mouth daily 0 03/10/2020 Active carbidopa 25 mg / levodopa 100 mg oral tablet (2 sources) Aromatic Amino Acid Decarboxylation Inhibitor, Aromatic Amino Acid Start: 08-31-2022 take 1 tablet by mouth four times daily carbidopa-levodopa (SINEMET) 25-100 MG per tablet Take 1 tablet by mouth 4 times daily 0 08/31/2022 Active citalopram 40 mg oral tablet (2 sources) Serotonin Reuptake Inhibitor Start: 10-24-2022 take 1 tablet by mouth once daily in the morning citalopram (CELEXA) 40 MG tablet Take 1 tablet by mouth every morning 0 10/24/2022 Active clopidogrel 75 mg oral tablet (2 sources) P2Y12 Platelet Inhibitor Start: 09-13-2022 take 1 tablet by mouth once daily clopidogrel (PLAVIX) 75 MG tablet Take 1 tablet by mouth daily 0 09/13/2022 Active diclofenac sodium 0.01 mg/mg topical gel (2 sources) Nonsteroidal Anti-inflammatory Drug Start: 09-23-2022 diclofenac sodium (VOLTAREN) 1 % GEL Apply topically 4 times daily 0 09/23/2022 Active 24 hr isosorbide mononitrate 30 mg extended release oral tablet (2 sources) Nitrate Vasodilator Start: 08-03-2022 take 1 tablet by mouth once daily isosorbide mononitrate (IMDUR) 30 MG extended release tablet Take 1 tablet by mouth daily 0 08/03/2022 Active metFORMIN hydrochloride 1000 mg oral tablet (2 sources) Biguanide Start: 08-17-2022 take 1000 mg by mouth once daily METFORMIN HCL ER PO Take 1,000 mg by mouth daily 0 08/17/2022 Active nitroglycerin 0.4 mg sublingual tablet (2 sources) Nitrate Vasodilator Start: 09-04-2011 nitroGLYCERIN (NITROSTAT) 0.[address] 1 tablet under the tongue every 5 minutes as needed for Chest pain Max dose of 5 tablets 0 09/04/2011 Active nystatin 100 unt/mg topical powder (2 sources) Polyene Antifungal nystatin (MYCOSTATIN) 524420 UNIT/GM powder Apply 1 application topically in the morning and 1 application in the evening. 0 Active 24 hr oxybutynin chloride 10 mg extended release oral tablet (2 sources) Cholinergic Muscarinic Antagonist Start: 09-13-2022 take 1 tablet by mouth once daily in the morning oxybutynin (DITROPAN-XL) 10 MG extended release tablet Take 1 tablet by mouth every morning 0 09/13/2022 Active pregabalin 200 mg oral capsule (2 sources) Start: 04-30-2014 take 1 capsule by mouth at bedtime pregabalin (LYRICA) 200 MG capsule Take 1 capsule by mouth in the morning, at noon, and at bedtime. 0 04/30/2014 Active primidone 50 mg oral tablet (2 sources) Anti-epileptic Agent Start: 09-13-2022 take 1 tablet by mouth four times daily primidone (MYSOLINE) 50 MG tablet Take 1 tablet by mouth 4 times daily 0 09/13/2022 Active rOPINIRole 0.25 mg oral tablet (2 sources) Nonergot Dopamine Agonist Start: 09-13-2022 take 1 tablet by mouth four times daily rOPINIRole (REQUIP) 0.25 MG tablet Take 1 tablet by mouth 4 times daily 0 09/13/2022 Active tiZANidine 4 mg oral tablet (2 sources) Central alpha-2 Adrenergic Agonist Start: 09-15-2022 take 1 tablet by mouth four times daily tiZANidine (ZANAFLEX) 4 MG tablet Take 1 tablet by mouth 4 times daily 0 09/15/2022 Active vitamin B12 (2 sources) Vitamin B12 take 1000 ug by mouth once daily Cyanocobalamin (VITAMIN B12 PO) Take 1,000 mcg by mouth daily 0 Active Problems Active Problems Problem Classification Problem Date Documented Date Episodic/Chronic Acquired foot deformities (2 sources) Foot drop, left foot; Translations: [Foot drop, left foot] Onset: 02-02-2023 Episodic Congestive heart failure; nonhypertensive (6 sources) Acute on chronic systolic (congestive) heart failure; Translations: [Acute on chronic diastolic (congestive) heart failure] Onset: 10-31-2022 Chronic Coronary atherosclerosis and other heart disease (2 sources) Atherosclerotic heart disease of [place] coronary artery without angina pectoris; Translations: [Atherosclerotic heart disease of [place] coronary artery without angina pectoris] Onset: 10-31-2022 Chronic Disorders of lipid metabolism (2 sources) Mixed hyperlipidemia; Translations: [Mixed hyperlipidemia] Onset: 10-31-2022 Chronic Essential hypertension (2 sources) Essential (primary) hypertension; Translations: [Essential (primary) hypertension] Onset: 10-31-2022 Chronic Heart valve disorders (2 sources) Nonrheumatic aortic (valve) stenosis; Translations: [Nonrheumatic aortic (valve) stenosis] Onset: 10-31-2022 Chronic Occlusion or stenosis of precerebral arteries (1 source) Occlusion and stenosis of bilateral carotid arteries; Translations: [OCCLUSION AND STENOS PAZ CAROTID ART] Onset: 01-25-2022 Chronic Other acquired deformities (2 sources) Spondylolisthesis, lumbar region; Translations: [Spondylolisthesis, lumbar region] Onset: 02-02-2023 Episodic Peripheral and visceral atherosclerosis (14 sources) Atherosclerosis of [place] arteries of extremities with rest pain, bilateral legs; Translations: [Peripheral vascular disease, unspecified] Onset: 11-25-2021 Chronic Spondylosis; intervertebral disc disorders; other back problems (9 sources) Radiculopathy, lumbosacral region; Translations: [Spinal stenosis, lumbar region without neurogenic claudication] Onset: 06-27-2022 Episodic Substance-related disorders (2 sources) Nicotine dependence, unspecified, uncomplicated; Translations: [Nicotine dependence, unspecified, uncomplicated] Onset: 10-31-2022 Chronic Unclassified (1 source) Low back pain, unspecified; Translations: [Low back pain, unspecified] Onset: 10-26-2022 Past or Other Problems Problem Classification Problem Date Documented Da te Episodic/Chronic Other circulatory disease (1 source) Other specified symptoms and signs involving the circulatory and respiratory systems; Translations: [OTH SPEC SX SIGNS INVLV CIRC RS] Onset: 01-25-2022 Episodic Other circulatory disease (1 source) Other disorder of circulatory system; Translations: [OTHER DISORDER CIRCULATORY SYSTEM] Onset: 01-22-2022 Episodic Unclassified (1 source) Low back pain, unspecified; Translations: [Low back pain, unspecified] Onset: 10-26-2022 Results Test Name Value Interpretation Reference Range Facility Orders Onlyon 04-11-2023 Orders Only [id number] Abhinav Quezada 1950 Date Provider Department Center 04/11/2023 [facility] Family History Problem Relation Age of Onset Hypertension Mother ALS Father Family Status - Relation Status Age at Mother Father Normal [place] Documentationon 04-10-2023 Documentation [id number] Abhinav Quezada 1950 Date Provider Department Center 04/10/2023 [id number] [facility] Family History Problem Relation Age of Onset Hypertension Mother ALS Father Family Status - Relation Status Age at Mother Father Reason for Visit and Comments: HF inpatient satisfaction survey sent. [Other] [facility] 36on 04-08-2023 36 Discharge date: 04/05/23 Call date: 04/08/23 Spoke with: patient and spouse HF Follow-up date: 04/11/23 but rescheduled to 04/19 at as has no transportation available that week Med reconciliation completed: pt declined Questions/Concerns: S/w pt and . No meds were changed at discharge and using pill packs, taking as prescribed. planning to go back to pill bottles as inconvenient to open the paper packs and put in pill boxes which is is preference. Home health ordered, have not yet called. Cannot make 04/11 scheduled FU at so rescheduled for 04/19, first next available. Gave office # and will mail out reminder. No other questions. Aurora Gilmore PA-C [facility] Cardiovascular Medicine [phone] [facility] Telephoneon 04-08-2023 Telephone [id number] JihanAbhinav W 1950 Provider Department Center 04/08/2023 [id number] [facility] Family History Problem Relation Age of Onset Hypertension Mother ALS Father Family Status - Relation Status Age at Mother Father [facility] 30on 04-05-2023 30 Problem: Pain - Adul t Goal: Verbalizes/displays adequate comfort level or baseline comfort level Outcome: Progressing Problem: Safety - Adult Goal: Free from fall injury Outcome: Progressing Problem: Discharge Planning Goal: Discharge to home or other facility with appropriate resources Outcome: Progressing Problem: Chronic Conditions and Co-morbidities Goal: Patient's chronic conditions and co-morbidity symptoms are monitored and maintained or improved Outcome: Progressing Problem: Fall Risk Goal: LTG-Increase mobility and strength Outcome: Progressing Goal: LTG-No falls Outcome: Progressing Goal: STG-Uses assitive devices properly Outcome: Progressing Goal: STG-Ask for assistance before standing Outcome: Progressing Goal: STG-Allows staff to assist prior to standing and ambulating Outcome: Progressing Goal: STG-Use call light prior to getting out of bed Outcome: Progressing Problem: Pain Goal: LTG-Verbalize decrease in pain Outcome: Progressing Goal: LTG-Demostrate that the pain does not impair ADLs Outcome: Progressing Goal: STG-Pt will verbalize decreased discomfort Outcome: Progressing Problem: Neurosensory - Adult Goal: Achieves stable or improved neurological status Outcome: Progressing Goal: Achieves maximal functionality and self care Outcome: Progressing Problem: Cardiovascular - Adult Goal: Maintains optimal cardiac output and hemodynamic stability Outcome: Progressing Goal: Absence of cardiac dysrhythmias or at baseline Outcome: Progressing Problem: Skin/Tissue Integrity - Adult Goal: Skin integrity remains intact Outcome: Progressing Goal: Incisions, wounds, or drain sites healing without S/S of infection Outcome: Progressing Problem: Musculoskeletal - Adult Goal: Maintain proper alignment of affected body part Outcome: Progressing Problem: Genitourinary - Adult Goal: Absence of urinary retention Outcome: Progressing Problem: Metabolic/Fluid and Electrolytes - Adult Goal: Electrolytes maintained within normal limits Outcome: Progressing Goal: Hemodynamic stability and optimal renal function maintained Outcome: Progressing Goal: Glucose maintained within prescribed range Outcome: Progressing Problem: Hematologic - Adult Goal: Maintains hematologic stability Outcome: Progressing Normal [place] BASIC METABOLIC PANELon 03-26 Anion gap [Moles/Vol] 9 mmol/L Normal 7-20 [facility] Comment on above: Performed By: #### L [id number] ####[facility] (BEAKER)[address] [facility] [place] [address] Calcium [Mass/Vol] 9.0 mg/dL Normal 8.6-10.3 [facility] Comment on above: Performed By: #### L [id number] ####[facility] (BEAKER)[address] [facility] [place] [address] Chloride [Moles/Vol] 108 mmol/L High 98-107 [place] Comment on above: Performed By: #### L [id number] ####[facility] (BEAKER)[address] [facility] [place] [address] CO2 [Moles/Vol] 27 mmol/L Normal 21-31 [facility] Comment on above: Performed By: #### L [id number] ####[facility] ([facility])[address] [place] [address] Creatinine [Mass/Vol] 0.54 mg/dL Low 0.60-1.20 [place] Comment on above: Performed By: #### L [id number] ####[facility] ([facility])[address] [place] [address] GLOMERULAR FILTRATION RATE ML/MIN/1.73 SQ M.PREDICTED 97.8 mL/min/1.73m*2 Normal >60.[address] [facility] Comment on above: Result Comment: The [place]???s estimated glomerular filtration rate (eGFR) will no longer include consideration of race in its calculation. The National Kidney Foundation???s eGFR Task Force developed new recommendations for the estimation of the glomerular filtration rate in the [place] They recommend immediate implementation of the new equation refit without the race variable in all laboratories because the calculation does not include race. In addition to not including race in the calculation and reporting, it included diversity in its development, and has acceptable performance characteristics and potential consequences that do not disproportionately affect any one group of individuals. Performed By: #### L [id number] ####[facility] ([facility])[address] [place] [address] Glucose [Mass/Vol] 157 mg/dL High 70-100 [facility] Comment on above: Performed By: #### L [id number] ####[facility] ([facility])[address] [place] [address] Potassium [Moles/Vol] 4.3 mmol/L Normal 3.5-5.1 [facility] Comment on above: Performed By: #### L [id number] ####[facility] ([facility])[address] [place] [address] Sodium [Moles/Vol] 140 mmol/L Normal 136-145 [facility] Comment on above: Performed By: #### L [id number] ####[facility] ([facility])[address] [place] [address] Urea nitrogen [Mass/Vol] 30 mg/dL High 7-25 [facility] Comment on above: Performed By: #### L [id number] ####[facility] ([facility])[address] [place] [address] UREA NITROGEN/CREATININE (MASS RATIO) IN SER/PLAS 55.6 Normal [place] Comment on above: Performed By: #### L [id number] ####[facility] ([facility])[address] [place] [address] CBCon 04-05-2023 Erythrocyte distribution width (RBC) [Ratio] 13.9 % Normal 11.5-15.0 [facility] Comment on above: Performed By: #### L [id number] ####[facility] ([facility])[address] [place] [address] ERYTHROCYTE MEAN CORPUSCULAR HEMOGLOBIN CONCENTRATION (G/DL) BY AUTOMATED 34.1 g/dL Normal 32.0-35.[address] [facility] Comment on above: Performed By: #### L [id number] ####[facility] ([facility])[address] [place] [address] Hematocrit (Bld) [Volume fraction] 41.4 % Normal 36.0-48.0 [facility] Comment on above: Performed By: #### L [id number] ####[facility] ([facility])[address] [place] [address] Hemoglobin (Bld) [Mass/Vol] 14.1 g/dL Normal 12.0-15.0 [facility] Comment on above: Performed By: #### L [id number] ####[facility] ([facility])[address] [place] [address] MCH (RBC) [Entitic mass] 32.3 pg Normal 27.0-33.0 [facility] Comment on above: Performed By: #### L [id number] ####[facility] ([facility] [place] [address] MCV (RBC) [Entitic vol] 95.0 fL Normal 82.0-98.0 [facility] Comment on above: Performed By: #### L [id number] ####[facility] ([facility])[address] [place] [address] PLATELETS (10*3/UL) IN BLOOD AUTOMATED COUNT 234 10*3/uL Normal 150-400 [place] Comment on above: Performed By: #### L [id number] ####[facility] ([facility])[address] [place] [address] RBC (Bld) [#/Vol] 4.36 10*6/uL Normal 3.80-5.00 [facility] Comment on above: Performed By: #### L [id number] ####[facility] ([facility])[address] [facility] [address] WBC (Bld) [#/Vol] 6.75 10*3/uL Normal 4.00-10.60 [facility] Comment on above: Performed By: #### L [id number] ####[facility] ([facility])[address] [facility] [address] MAGNESIUMon 04-05-2023 Magnesium [Mass/Vol] 1.6 mg/dL Low 1.9-2.7 [place] Comment on above: Performed By: #### L [id number] ####[facility] ([facility])[address] [place] [address] NURSNOTEon 04-05-2023 NURSNOTE Director Human Services notified hospitalist about blood pressure is 165/44 and her heart rate is 57. Patient was sleeping at the time. Hospitalist would like for loan underwriter to monitor the patient if the patient is asymptomatic. Normal [place] POCT GLUCOSE METER UNSOLICIT ED RESULTSon 04-05-2023 Glucose [Mass/Vol] 198 mg/dL High 70-105 [facility] Comment on above: Order Comment: Waive d Testing in the ED is performed under the ED CLIA certificate #[id number]. Result Comment: wwar rad Performed By: #### L [id number] #### [facility] ([facility]) [address] [place] [address] Glucose [Mass/Vol] 248 mg/dL High 70-105 [facility] Comment on above: Order Comment: Waive d Testing in the ED is performed under the ED CLIA certificate #[id number]. Result Comment: wwar rad Performed By: #### L [id number] #### [facility] (BEAKER) [address] [place] [address] Glucose [Mass/Vol] 141 mg/dL High 70-105 [facility] Comment on above: Order Comment: Waive d Testing in the ED is performed under the ED CLIA certificate #[id number]. Result Comment: wwar rad Performed By: #### L [id number] ####[facility] (BEAKER)[address] [place] [address] 30on 04-04-2023 30 Daily Case Managemen t Update Multidisciplinary rounds have been completed. Barriers to Discharge: from [place] elevated troponin and HF. Ischemic evaluation that was negative. Pending clinical course. Diet: Dietary Orders (From admission, onward) Start Ordered 04/04/23 0951 Regular Diet Heart Healthy/HTN, CABG,Stroke, (2gNA, low fat, low cholesterol) Diet effective now Question Answer Comment Room Service? Yes Fat restriction: Heart Healthy/HTN, CABG,Stroke, (2gNA, low fat, low cholesterol) 04/04/23 0950 Physician Expected Discharge Date: 04/06/2023 Discharge Delays: PT Six Click Score: 20 OT Six Click Score: PT Recommendations: OT Recommendations: New Consults: Ancillary Consults (From admission, onward) Start Ordered 04/03/23 2339 Inpatient consult to Social Work Once Provider: (Not yet assigned) Question Answer Comment Select all services needed for the patient Assisted Facility (30 day convalescent stay) Please indicate your approval for this care by adding your name here: SELENE LIZ 04/03/23 2338 Therapy Orders (From admission, onward) Start Ordered 04/04/23 1152 PT eval and treat Until therapy completed Question: Reason for PT? Answer: weakness 04/04/23 1151 04/04/23 1152 OT eval and treat Until therapy completed Question: Reason for OT? Answer: weakness 04/04/23 1151 Normal [place] 30 Problem: Pain - Adul t Goal: Verbalizes/displays adequate comfort level or baseline comfort level Outcome: Progressing Problem: Safety - Adult Goal: Free from fall injury Outcome: Progressing Problem: Discharge Planning Goal: Discharge to home or other facility with appropriate resources Outcome: Progressing Problem: Chronic Conditions and Co-morbidities Goal: Patient's chronic conditions and co-morbidity symptoms are monitored and maintained or improved Outcome: Progressing Problem: Fall Risk Goal: LTG-Increase mobility and strength Outcome: Progressing Goal: LTG-No falls Outcome: Progressing Goal: STG-Uses assitive devices properly Outcome: Progressing Goal: STG-Ask for assistance before standing Outcome: Progressing Goal: STG-Allows staff to assist prior to standing and ambulating Outcome: Progressing Goal: STG-Use call light prior to getting out of bed Outcome: Progressing Problem: Pain Goal: LTG-Verbalize decrease in pain Outcome: Progressing Goal: LTG-Demostrate that the pain does not impair ADLs Outcome: Progressing Goal: STG-Pt will verbalize decreased discomfort Outcome: Progressing Normal [place] ANTI-XA (HEPARIN LEVEL)on HEPARIN UNFRACTIONATED (U/ML) IN PPP BY CHROMOGENIC METHOD 0.36 IU/mL Normal 0.3-0.7 [place] Comment on above: Result Comment: [place] roxaban and Apixaban will interfere with the anti Xa assay used to monitor UFH and LMWH. Performed By: #### L [id number] ####[facility] (BEAKER)[address] [place] [address] HEPARIN UNFRACTIONATED (U/ML) IN PPP BY CHROMOGENIC METHOD 0.18 IU/mL Low 0.3-0.7 [place] Comment on above: Result Comment: Renuka roxaban and Apixaban will interfere with the anti Xa assay used to monitor UFH and LMWH. Performed By: #### L [id number] #### [facility] (BEAKER) [address] [place] [address] HEPARIN UNFRACTIONATED (U/ML) IN PPP BY CHROMOGENIC METHOD 0.14 IU/mL Invalid Interpretation Code 0.3-0.7 [place] Comment on above: Order Comment: Check anti-Xa level every 6 hours while on heparin infusion, or per protocol. Result Comment: [place] roxaban and Apixaban will interfere with the anti Xa assay used to monitor UFH and LMWH. Performed By: #### L [id number] #### [facility] (BEAKER) [address] [place] [address] APTTon 04-04-2023 ACTIVATED PARTIAL THROMBOPLASTIN TIME IN PPP BY COAGULATION ASSAY 34.8 Seconds Normal 25.0-35.0 [place] Comment on above: Order Comment: Basel ine aPTT before initiating heparin infusion. Result Comment: Clin ical significance of the APTT is questionable in the presence of heparin. Performed By: #### L [id number] #### [facility] (BEAKER) [address] [place] [address] CONSULTon 04-04-2023 CONSULT -- Attestation signed by Claritza Bello MD at 04/04/2023 4:03 PM I personally saw and examined the patient on the same date of service as resident/fellow Dr Garza. I discussed the findings and therapeutic plan with the resident/fellow Dr Garza. I agree with the documentation, except for any edits/updates below. Teaching Physician's Revisions: Claritza Bello MD, MPH, [facility], [facility], [facility] Interventional Cardiology Pager Email: [email or web address] Cardiology Consult Note Reason for Consult: CHF exacerbation HPI: Mirna Quezada is a 72 y.o. female with a past medical history significant for CAD status post CABG (ALMARAZ to LAD, SVG to D1, and SVG to OM1) 2000, ischemic cardiomyopathy, COPD, hypertension, type 2 diabetes mellitus who originally presented to [facility] with cough and was found to have community acquired pneumonia and acute heart failure exacerbation. Patient was transferred from [facility] for cardiology evaluation for elevated troponin. Patient presented to [facility] 03/29/2023. Labs were significant for elevated WBC. Chest x-ray was significant for multifocal pneumonia. Patient was treated with a course of azithromycin and ceftriaxone. As patient remained hypoxic,pro BNP was ordered and found to be over 3000. High-sensitivity troponin was ordered and found to be 1941 and 1095. Patient's acute hypoxic respiratory insufficiency resolved with the administration of IV Lasix for acute heart failure exacerbation. Limited echocardiogram obtained 04/02 demonstrated EF 55 to60% and severe aortic valve calcifications.Cardiol may recommended that patient be transferred to [facility] for evaluation for cardiac catheterization. Of note, patient was previously evaluated by cardiology as an outpatient 10/2022 For perioperative cardiac risk stratification. A stress test was performed 12/05/2022 and demonstrated a small fixed defect in inferior wall. This morning patient denies any chest pain or shortness of breath. She has noted to be on room air. She did report an episode of chest discomfort yesterday evening that was retrosternal lasted for approximately 20 minutes and was improved with nitroglycerin. Cardiology ROS: GENERAL: Denies fever, chills, night sweats, weight loss. CARDIOVASCULAR: Denies chest pain, exertional dyspnea, orthopnea/PND, lower extremity edema, palpitations, lightheadedness/dizzin ess, syncope. RESPIRATORY: Denies SOB, coughing, wheezing GI: Denies abdominal pain, nausea/vomiting. PSYCH: Denies anxiety. Past Medical History She has a past medical history of Coronary artery disease, Diabetes mellitus (CMS/HCC), GERD (gastroesophageal reflux disease), Heart valve disease, Hyperlipidemia, and Primary cardiomyopathy (CMS/HCC). Surgical History She has a past surgical history that includes section, classic; Bowel resection; Cardiac catheterization; Back surgery; Coronary artery bypass graft; Cholecystectomy; Carpal tunnel release; and Cervical spine surgery. Social History She reports that she has been smoking cigarettes. She has been smoking an average of .5 packs per day. She has never used smokeless tobacco. She reports current alcohol use. No history on file for drug use. Family History Family History Problem Relation Name Age of Onset Hypertension Mother ALS Father Allergies Augmentin [amoxicillin-pot clavulanate] Medications Medications Prior to Admission Medication Sig Dispense Refill Last Dose aspirin 81 mg EC tablet Take 1 tablet by mouth in the morning. atorvastatin (Lipitor) 20 mg tablet Take 1 tablet by mouth in the morning. 04/03/2023 carbidopa-levodopa (Sinemet) 25-100 mg tablet Take 1.5 tablets by mouth in the morning, at noon, in the evening, and at bedtime. 04/03/2023 citalopram (CeleXA) 40 mg tablet Take 40 mg by mouth in the morning. 04/03/2023 clopidogrel (Plavix) 75 mg tablet Take 1 tablet by mouth in the morning. 04/03/2023 cyanocobalamin (Vitamin B-12) 1,000 mcg tablet Take 1,000 mcg by mouth in the morning. HYDROcodone-acetaminop hen ([place]) 10-325 mg tablet Take 1 tablet by mouth every 8 (eight) hours. isosorbide mononitrate ER (Imdur) 30 mg 24 hr tablet Take 1 tablet by mouth in the morning. 04/03/2023 metFORMIN (Glucophage) 500 mg tablet Take 500 mg by mouth with breakfast. 04/03/2023 pregabalin (Lyrica) 200 mg capsule 200 mg in the morning, at noon, and at bedtime. 04/03/2023 primidone (Mysoline) 50 mg tablet Take 50 mg by mouth in the morning, noon, at afternoon, at bedtime,. 04/03/2023 rOPINIRole (Requip) 0.25 mg tablet Take 0.25 mg by mouth in the morning, noon, at afternoon, at bedtime,. 04/03/2023 tiZANidine (Zanaflex) 4 mg tablet Take 4 mg by mouth at bedtime. 04/02/2023 Last Recorded Vitals Patient Vitals for the p (more content not included)... Normal [place] NURSNOTEon 04-04-2023 NURSNOTE Director Human Services phoned hospitalist to inform him that the patient blood pressure was 85/42 at 4:10 am and 101/46 at 4:20. Director Human Services also let the hospitalist know that the patient was asymptomatic. Hospitalist would like for loan underwriter to keep a close eye on the patient and her blood pressure; call the hospitalist if any changes. Normal [place] PLATELET COUNTon 04-04-2023 PLATELETS (10*3/UL) IN BLOOD AUTOMATED COUNT 242 10*3/uL Normal 150-400 [place] Comment on above: Performed By: #### L [id number] #### [facility] ([facility]) [address] [place] [address] POCT GLUCOSE METER UNSOLICIT ED RESULTSon 04-04-2023 Glucose [Mass/Vol] 209 mg/dL High 70-105 [facility] Comment on above: Order Comment: Waive d Testing in the ED is performed under the ED CLIA certificate #[id number]. Result Comment: gregg gory Performed By: #### L [id number] #### [facility] ([facility]) [address] [place] [address] Glucose [Mass/Vol] 188 mg/dL High 70-105 [facility] Comment on above: Order Comment: Waive d Testing in the ED is performed under the ED CLIA certificate #[id number]. Result Comment: wwar rad Performed By: #### L [id number] ####[facility] (BEMirantis)[address] [place] [place] [address] Glucose [Mass/Vol] 191 mg/dL High 70-105 [facility] Comment on above: Order Comment: Waive d Testing in the ED is performed under the ED CLIA certificate #[id number]. Result Comment: wwar rad Performed By: #### L [id number] #### [facility] ([facility]) [address] [place] [address] Glucose [Mass/Vol] 248 mg/dL High 70-105 [facility] Comment on above: Order Comment: Waive d Testing in the ED is performed under the ED CLIA certificate #[id number]. Result Comment: wwar rad Performed By: #### L [id number] #### [facility] ([facility]) [address] [place] [address] Glucose [Mass/Vol] 142 mg/dL High 70-105 [facility] Comment on above: Order Comment: Waive d Testing in the ED is performed under the ED CLIA certificate #[id number]. Result Comment: swey er2 Critical Value Noted Performed By: #### L [id number] #### [facility] ([facility]) [address] [place] [address] TROPONIN Ion 04-04-2023 Troponin I.cardiac [Mass/Vol] 0.06 ng/mL High 0.00-0.04 [place] Comment on above: Performed By: #### L [id number] ####[facility] ([facility])[address] [place] [address] Troponin I.cardiac [Mass/Vol] 0.07 ng/mL High 0.00-0.04 [place] Comment on above: Performed By: #### L [id number] #### [facility] ([facility]) [address] [place] [address] B-TYPE NATRIURETIC PEPTIDEon 04-03-2023 Natriuretic peptide B (Bld) [Mass/Vol] 138 pg/mL High 0-100 [place] Comment on above: Performed By: #### L [id number] #### [facility] ([facility]) [address] [place] [address] CBC WITH AUTO DIFFERENTIALon 04-03-2023 Basophils (Bld) [#/Vol] 0.06 10*3/uL Normal 0.00-0.20 [place] Comment on above: Performed By: #### L [id number] #### [facility] ([facility]) [address] [place] [address] Basophils/100 WBC (Bld) 0.8 % Normal 0.0-1.0 [place] Comment on above: Performed By: #### L [id number] #### [facility] ([facility]) [address] [place] [address] Eosinophils (Bld) [#/Vol] 0.15 10*3/uL Normal 0.00-0.50 [place] Comment on above: Performed By: #### L [id number] #### [facility] (BEAKER) [address] [place] [address] Eosinophils/100 WBC (Bld) 1.9 % Normal 0.0-6.0 [place] Comment on above: Performed By: #### L [id number] #### [facility] ([facility]) [address] [place] [address] Erythrocyte distribution width (RBC) [Ratio] 14.2 % Normal 11.5-15.0 [place] Comment on above: Performed By: #### L [id number] #### [facility] ([facility]) [address] [place] [address] ERYTHROCYTE MEAN CORPUSCULAR HEMOGLOBIN CONCENTRATION (G/DL) BY AUTOMATED 33.4 g/dL Normal 32.0-35.[address] [facility] Comment on above: Performed By: #### L [id number] #### [facility] ([facility]) [address] [place] [address] Hematocrit (Bld) [Volume fraction] 44.3 % Normal 36.0-48.0 [place] Comment on above: Performed By: #### L [id number] #### [facility] (BEAKER) [address] [place] [address] Hemoglobin (Bld) [Mass/Vol] 14.8 g/dL Normal 12.0-15.0 [place] Comment on above: Performed By: #### L [id number] #### [facility] (BEAKER) [address] [place] [address] Immature granulocytes (Bld) [#/Vol] 0.06 10*3/uL Normal 0.00-0.20 [place] Comment on above: Performed By: #### L [id number] #### [facility] (BEAKER) [address] [place] [address] Immature granulocytes/100 WBC (Bld) 0.8 % Normal 0.0-1.0 [place] Comment on above: Performed By: #### L [id number] #### [facility] ([facility]) [address] [place] [address] Lymphocytes (Bld) [#/Vol] 2.57 10*3/uL Normal 1.20-4.00 [place] Comment on above: Performed By: #### L [id number] #### [facility] ([facility]) [address] [place] [address] Lymphocytes/100 WBC (Bld) 32.2 % Normal 20.0-45.0 [place] Comment on above: Performed By: #### L [id number] #### [facility] ([facility]) [address] [place] [address] MCH (RBC) [Entitic mass] 32.2 pg Normal 27.0-33.0 [place] Comment on above: Performed By: #### L [id number] #### [facility] ([facility]) [address] [address] MCV (RBC) [Entitic vol] 96.3 fL Normal 82.0-98.0 [place] Comment on above: Performed By: #### L [id number] #### [facility] ([facility]) [address] [place] [address] Monocytes (Bld) [#/Vol] 0.79 10*3/uL Normal 0.10-1.00 [place] Comment on above: Performed By: #### L [id number] #### [facility] ([facility]) [address] [place] [address] Monocytes/100 WBC (Bld) 9.9 % Normal 5.0-12.0 [place] Comment on above: Performed By: #### L [id number] #### [facility] ([facility]) [address] [place] [address] Neutrophils (Bld) [#/Vol] 4.36 10*3/uL Normal 1.60-7.60 [place] Comment on above: Performed By: #### L [id number] #### [facility] ([facility]) [address] [place] [address] Neutrophils/100 WBC (Bld) 54.4 % Normal 40.0-72.0 [place] Comment on above: Performed By: #### L [id number] #### [facility] ([facility]) [address] [place] [address] PLATELETS (10*3/UL) IN BLOOD AUTOMATED COUNT 254 10*3/uL Normal 150-400 [place] Comment on above: Performed By: #### L [id number] #### [facility] ([facility]) [address] [place] [address] RBC (Bld) [#/Vol] 4.60 10*6/uL Normal 3.80-5.00 [facility] Comment on above: Performed By: #### L [id number] #### [facility] ([facility]) [address] [place] [address] WBC (Bld) [#/Vol] 7.99 10*3/uL Normal 4.00-10.60 [facility] Comment on above: Performed By: #### L [id number] #### [facility] ([facility]) [address] [place] [address] COMPREHENSIVE METABOLIC PANE Gaurav 04-03-2023 Albumin [Mass/Vol] 3.8 g/dL Normal 3.5-5.7 [facility] Comment on above: Performed By: #### L [id number] #### [facility] (BEAKER) [address] [place] [address] ALP [Catalytic activity/Vol] 73 U/L Normal 34-104 [place] Comment on above: Performed By: #### L [id number] #### [facility] ([facility]) [address] [place] [address] ALT [Catalytic activity/Vol] 15 U/L Normal 7-52 [place] Comment on above: Performed By: #### L [id number] #### [facility] (BEAKER) [address] [place] [address] Anion gap [Moles/Vol] 14 mmol/L Normal 7-20 [place] Comment on above: Performed By: #### L [id number] #### [facility] (BEAKER) [address] [place] [address] AST [Catalytic activity/Vol] 25 U/L Normal 13-39 [place] Comment on above: Performed By: #### L [id number] #### [facility] (BEAKER) [address] [place] [address] Bilirubin [Mass/Vol] 0.3 mg/dL Normal 0.3-1.0 [place] Comment on above: Performed By: #### L [id number] #### [facility] (BEAKER) [address] [place] [address] Calcium [Mass/Vol] 9.6 mg/dL Normal 8.6-10.3 [facility] Comment on above: Performed By: #### L [id number] #### [facility] (BEAKER) [address] [place] [address] Chloride [Moles/Vol] 104 mmol/L Normal 98-107 [place] Comment on above: Performed By: #### L [id number] #### [facility] (BEAKER) [address] [place] [address] CO2 [Moles/Vol] 27 mmol/L Normal 21-31 [facility] Comment on above: Performed By: #### L [id number] #### [facility] (BEAKER) [address] [place] [address] Creatinine [Mass/Vol] 0.65 mg/dL Normal 0.60-1.20 [place] Comment on above: Performed By: #### L [id number] #### [facility] (BEAKER) [address] [place] [address] GLOMERULAR FILTRATION RATE ML/MIN/1.73 SQ M.PREDICTED 93.5 mL/min/1.73m*2 Normal >60.[address] [facility] Comment on above: Result Comment: The [place]'s estimated glomerular filtration rate (eGFR) will no longer include consideration of race in its calculation. The National Kid[employer] Foundation's eGFR Task Force developed new recommendations for the estimation of the glomerular filtration rate in the [place] They recommend immediate implementation of the new equation refit without the race variable in all laboratories because the calculation does not include race. In addition to not including race in the calculation and reporting, it included diversity in its development, and has acceptable performance characteristics and potential consequences that do not disproportionately affect any one group of individuals. Performed By: #### L [id number] #### [facility] ([facility]) [address] [place] [address] Glucose [Mass/Vol] 120 mg/dL High 70-100 [facility] Comment on above: Performed By: #### L [id number] #### [facility] ([facility]) [address] [place] [address] Potassium [Moles/Vol] 4.1 mmol/L Normal 3.5-5.1 [place] Comment on above: Performed By: #### L [id number] #### [facility] ([facility]) [address] [place] [address] Protein [Mass/Vol] 6.7 g/dL Normal 6.0-8.3 [facility] Comment on above: Performed By: #### L [id number] #### [facility] ([facility]) [address] [place] [address] Sodium [Moles/Vol] 141 mmol/L Normal 136-145 [facility] Comment on above: Performed By: #### L [id number] #### [facility] ([facility]) [address] [place] [address] Urea nitrogen [Mass/Vol] 32 mg/dL High 7-25 [place] Comment on above: Performed By: #### L [id number] #### [facility] ([facility]) [address] [place] [address] UREA NITROGEN/CREATININE (MASS RATIO) IN SER/PLAS 49.2 Normal [place] Comment on above: Performed By: #### L [id number] #### [facility] ([facility]) [address] [place] [address] MAGNESIUMon 04-03-2023 Magnesium [Mass/Vol] 1.2 mg/dL Low 1.9-2.7 [place] Comment on above: Performed By: #### L [id number] #### [facility] ([facility]) [address] [place] [address] PHOSPHORUSon 04-03-2023 Magnesium [Mass/Vol] 3.6 mg/dL Normal 2.5-5.0 [place] Comment on above: Performed By: #### L [id number] ####[facility] ([facility])[address] [place] [address] PROTIME-INRon 04-03-2023 INR IN PPP BY COAGULATION ASSAY 1.00 Normal 0.90-1.10 [place] Comment on above: Result Comment: ACCC P RECOMMENDED INR FOR WARFARIN THERAPY CONDITION INR PROPHYLAXIS OF VENOUS THROMBOSIS 2-3 (HIGH-RISK SURGERY) TREATMENT OF VENOUS THROMBOSIS 2-3 TREATMENT OF PULMONARY EMBOLISM 2-3 PREVENTION OF SYSTEMIC EMBOLISM: 2-3 ACUTE MYOCARDIAL INFARCTION TISSUE HEART VALVES VALVULAR HEART DISEASE ATRIAL FIBRILLATION RECURRENT SYSTEMIC EMBOLISM MECHANICAL HEART VALVE 2.5-3.5 FROM: ORAL ANTICOAGULANTS. MECHANISM OF ACTION, CLINICAL EFFECTIVENESS, AND OPTIMAL THERAPEUTIC RANGE. CHEST 1995;108:231S-246S. Performed By: #### L [id number] #### [facility] ([facility]) [address] [place] [address] PROTHROMBIN TIME (PT) IN PPP BY COAGULATION ASSAY 13.2 Seconds Normal 12.3-14.8 [place] Comment on above: Performed By: #### L [id number] #### [facility] ([facility]) [address] [place] [address] TROPONIN Ion 04-03-2023 Troponin I.cardiac [Mass/Vol] 0.10 ng/mL High 0.00-0.04 [place] Comment on above: Performed By: #### L [id number] ####[facility] ([facility])[address] [place] [address] BUN + Creatinineon Creatinine [Mass/Vol] 0.5 mg/dL Normal 0.5-0.9 [facility] Comment on above: Performed By: #### B UNCRT, CBC, GLU, LYTE #### [facility] [address] [place], [place] [id number] Appraiser: Chalo Rendon MD GFR/1.73 sq M.predicted among non-blacks MDRD (S/P/Bld) [Vol rate/Area] mL/min/{1.73_m2} Normal >60 [facility] Comment on above: Result Comment: These results are not intended for use in patients <18 years of age. eGFR results are calculated without a race factor using the 2020 CKD-EPI equation. Careful clinical correlation is recommended, particularly when comparing to results calculated using previous equations. The CKD-EPI equation is less accurate in patients with extremes of muscle mass, extra-renal metabolism of creatine, excessive creatine ingestion, or following therapy that affects renal tubular secretion. Performed By: #### B UNCRT, CBC, GLU, LYTE #### [facility] [address] [place], [place] [id number] Appraiser: Chalo Rendon MD Urea nitrogen [Mass/Vol] 14 mg/dL Normal 8-23 [facility] Comment on above: Performed By: #### B UNCRT, CBC, GLU, LYTE #### [facility] [address] [place] [address] Appraiser: Chalo Rendon MD CBCon 02-02-2023 Erythrocyte distribution width (RBC) [Ratio] 14.3 % Normal 11.8-14.4 [facility] Comment on above: Performed By: #### B UNCRT, CBC, GLU, LYTE #### [address] [address] Appraiser: Chalo Rendon MD Hematocrit (Bld) [Volume fraction] 47.5 % High 36.3-47.1 [facility] Comment on above: Performed By: #### B UNCRT, CBC, GLU, LYTE #### [address] [address] Appraiser: Chalo Rendon MD Hemoglobin (Bld) [Mass/Vol] 16.5 g/dL High 11.9-15.1 [facility] Comment on above: Performed By: #### B UNCRT, CBC, GLU, LYTE #### [address] [address] Appraiser: Chalo Rendon MD MCH (RBC) [Entitic mass] 33.7 pg High 25.2-33.5 [facility] Comment on above: Performed By: #### B UNCRT, CBC, GLU, LYTE #### [address] [address] Appraiser: Chalo Rendon MD MCHC (RBC) [Mass/Vol] 34.7 g/dL Normal 28.4-34.8 [facility] Comment on above: Performed By: #### B UNCRT, CBC, GLU, LYTE #### [address] [address] Appraiser: Chalo Rendon MD MCV (RBC) [Entitic vol] 97.1 fL Normal 82.6-102.9 [facility] Comment on above: Performed By: #### B UNCRT, CBC, GLU, LYTE #### [address] [address] Appraiser: Chalo Rendon MD NRBC Automated 0.0 per 100 WBC Normal 0.0 [facility] Comment on above: Performed By: #### B UNCRT, CBC, GLU, LYTE #### [address] [address] Appraiser: Chalo Rendon MD Platelet mean volume (Bld) [Entitic vol] 12.3 fL Normal 8.1-13.5 [facility] Comment on above: Performed By: #### B UNCRT, CBC, GLU, LYTE #### [address] [address] Appraiser: Chalo Rendon MD Platelets (Bld) [#/Vol] 149 10*3/uL Normal 138-453 [facility] Comment on above: Performed By: #### B UNCRT, CBC, GLU, LYTE #### [address] [address] Appraiser: Chalo Rendon MD RBC (Bld) [#/Vol] 4.89 10*6/uL Normal 3.95-5.11 [facility] Comment on above: Performed By: #### B UNCRT, CBC, GLU, LYTE #### [address] [address] [address] Appraiser: Chalo Rendon MD WBC (Bld) [#/Vol] 8.8 10*3/uL Normal 3.5-11.3 [facility] Comment on above: Performed By: #### B UNCRT, CBC, GLU, LYTE #### [address] [address] Appraiser: Chalo Renodn MD Electrolyteson 11-10-2023 Anion gap [Moles/Vol] 10 mmol/L Normal 9-17 [facility] Comment on above: Performed By: #### B UNCRT, CBC, GLU, LYTE #### [facility] [place] [address] Appraiser: Chalo Rendon MD Chloride [Moles/Vol] 104 mmol/L Normal 98-107 [facility] Comment on above: Performed By: #### B UNCRT, CBC, GLU, LYTE #### [facility] [address] [place] [address] Appraiser: Chalo Rendon MD CO2 [Moles/Vol] 24 mmol/L Normal 20-31 [facility] Comment on above: Performed By: #### B UNCRT, CBC, GLU, LYTE #### [facility] [address] [place] [address] Appraiser: Chalo Rendon MD Potassium [Moles/Vol] 4.2 mmol/L Normal 3.7-5.3 [facility] Comment on above: Performed By: #### B UNCRT, CBC, GLU, LYTE #### [facility] [address] [place] [address] Appraiser: Chalo Rendon MD Sodium [Moles/Vol] 138 mmol/L Normal 135-144 [facility] Comment on above: Performed By: #### B UNCRT, CBC, GLU, LYTE #### [facility] [address] [place] [address] Appraiser: Chalo Rendon MD Glucoseon 02-02-2023 Glucose [Mass/Vol] 127 mg/dL High 70-99 [facility] Comment on above: Performed By: #### B UNCRT, CBC, GLU, LYTE #### [facility] [address] [place] [address] Appraiser: Chalo Rendon MD Office Visiton 10-31-2022 Follow-up visit [id number] Abhinav Quezada Arya 1950 F Date Provider Department Center 10/31/2022 [id number]-OQHUSARADROSANA MIKE [facility] Family History Problem Relation Age of Onset Hypertension Mother ALS Father Family Status - Relation Status Age at Mother Father Level of Service:70647 [place] OFFICE/OUTPATIENT NEW MODERATE MDM 45-59 MINUTES Normal [place] Hemoglobin A1Con 10-27-2022 Glucose [Mass/Vol] 157 mg/dL Normal [facility] Comment on above: Result Comment: The ADA and AACC recommend providing the estimated average glucose result to permit better patient understanding of their HBA1c result. Performed By: #### C RUBEN, BMP #### [facility] [address] [place] [address] Appraiser: Lucas Pink MD #### GLYHGB #### [address] [address] Appraiser: Chalo Rendon MD HbA1c (Bld) [Mass fraction] 7.1 % High 4.0-6.0 [facility] Comment on above: Performed By: #### Lali MIRANDA, BMP #### [facility] [address] [place] [address] Appraiser: Lucas Pink MD #### GLYHGB #### [address] [address] Appraiser: Chalo Rendon MD Basic Metabolic Profon 10-26 Anion gap [Moles/Vol] 9 mmol/L Normal 9-17 [facility] Comment on above: Performed By: #### C RUBEN, BMP #### [facility] [address] [place] [address] Appraiser: Lucas Pink MD #### GLYHGB #### [address] [address] Appraiser: Chalo Rendon MD BUN/CRE Ratio 27 High 9-20 [facility] Comment on above: Performed By: #### C BC, BMP #### [facility] [address] [place] [address] Appraiser: Lucas Pink MD #### GLYHGB #### [address] [address] Appraiser: Chalo Rendon MD Calcium [Mass/Vol] 8.8 mg/dL Normal 8.6-10.4 [facility] Comment on above: Performed By: #### C RUBEN, BMP #### [facility] [address] [place] [address] Appraiser: Lucas Pink MD #### GLYHGB #### [address] [address] Appraiser: Chalo Rendon MD Chloride [Moles/Vol] 105 mmol/L Normal 98-107 [facility] Comment on above: Performed By: #### C RUBEN, BMP #### [facility] [address] [place] [address] Appraiser: Lucas Pink MD #### GLYHGB #### [address] [address] Appraiser: Chalo Rendon MD CO2 [Moles/Vol] 27 mmol/L Normal 20-31 [facility] Comment on above: Performed By: #### C BC, BMP #### [facility] [address] [place] [address] Appraiser: Lucas Pink MD #### GLYHGB #### [address] [address] Appraiser: Chalo Rendon MD Creatinine [Mass/Vol] 0.6 mg/dL Normal 0.5-0.9 [facility] Comment on above: Performed By: #### C RUBEN, BMP #### [facility] [address] [place] [address] Appraiser: Lucas Pink MD #### GLYHGB #### [address] [address] Appraiser: Chalo Rendon MD GFR/1.73 sq M.predicted among non-blacks MDRD (S/P/Bld) [Vol rate/Area] mL/min/{1.73_m2} Normal >60 [facility] Comment on above: Result Comment: These results are not intended for use in patients <18 years of age. eGFR results are calculated without a race factor using the 2020 CKD-EPI equation. Careful clinical correlation is recommended, particularly when comparing to results calculated using previous equations. The CKD-EPI equation is less accurate in patients with extremes of muscle mass, extra-renal metabolism of creatine, excessive creatine ingestion, or following therapy that affects renal tubular secretion. Performed By: #### Lali MIRANDA, BMP #### [facility] [address] [place] [address] Appraiser: Lucas Pink MD #### GLYHGB #### [address] [address] Appraiser: Chalo Rendon MD Glucose [Mass/Vol] 134 mg/dL High 70-99 [facility] Comment on above: Performed By: #### C RUBEN, BMP #### [facility] [address] [place] [address] Appraiser: Lucas Pink MD #### GLYHGB #### [address] [address] Appraiser: Chalo Rendon MD Potassium [Moles/Vol] 4.3 mmol/L Normal 3.7-5.3 [facility] Comment on above: Performed By: #### C BC, BMP #### [facility] [address] [place] [address] Appraiser: Lucas Pink MD #### GLYHGB #### [address] [address] Appraiser: Chalo Rendon MD Sodium [Moles/Vol] 141 mmol/L Normal 135-144 [facility] Comment on above: Performed By: #### C RUBEN, BMP #### [facility] [address] [place] [address] Appraiser: Lucas Pink MD #### GLYHGB #### [address] [address] Appraiser: Chalo Rendon MD Urea nitrogen [Mass/Vol] 16 mg/dL Normal 8-23 [facility] Comment on above: Performed By: #### Lali MIRANDA, BMP #### [facility] [address] [place] [address] Appraiser: Lucas Pink MD #### GLYHGB #### [address] [address] Appraiser: Chalo Rendon MD CBCon 10-26-2022 Erythrocyte distribution width (RBC) [Ratio] 13.7 % Normal 11.8-14.4 [facility] Comment on above: Performed By: #### C BC, BMP #### [facility] [address] [place] [address] Appraiser: Lucas Pink MD #### GLYHGB #### [address] [address] Appraiser: Chalo Rendon MD Hematocrit (Bld) [Volume fraction] 47.2 % High 36.3-47.1 [facility] Comment on above: Performed By: #### C BC, BMP #### [facility] [address] [place] [address] Appraiser: Lucas Pink MD #### GLYHGB #### [address] [address] Appraiser: Chalo Rendon MD Hemoglobin (Bld) [Mass/Vol] 15.9 g/dL High 11.9-15.1 [facility] Comment on above: Performed By: #### C BC, BMP #### [facility] [address] [place] [address] Appraiser: Lucas Pink MD #### GLYHGB #### [address] [address] Appraiser: Chalo Rendon MD MCH (RBC) [Entitic mass] 33.5 pg Normal 25.2-33.5 [facility] Comment on above: Performed By: #### C BC, BMP #### [facility] [address] [place] [address] Appraiser: Lucas Pink MD #### GLYHGB #### [address] [address] Appraiser: Chalo Rendon MD MCHC (RBC) [Mass/Vol] 33.7 g/dL Normal 28.4-34.8 [facility] Comment on above: Performed By: #### C BC, BMP #### [facility] [address] [place] [address] Appraiser: Lucas Pink MD #### GLYHGB #### [address] [place] [address] Appraiser: Chalo Rendon MD MCV (RBC) [Entitic vol] 99.6 fL Normal 82.6-102.9 [facility] Comment on above: Performed By: #### C BC, BMP #### [facility] [place] [address] Appraiser: Lucas Pink MD #### GLYHGB #### [address] [address] Appraiser: Chalo Rendon MD NRBC Automated 0.0 per 100 WBC Normal 0.0 [facility] Comment on above: Performed By: #### C BC, BMP #### [facility] [address] [place] [address] Appraiser: Lucas Pink MD #### GLYHGB #### [address] [address] Appraiser: Chalo Rendon MD Platelet mean volume (Bld) [Entitic vol] 12.0 fL Normal 8.1-13.5 [facility] Comment on above: Performed By: #### C BC, BMP #### [facility] [address] [place] [address] Appraiser: Lucas Pink MD #### GLYHGB #### [address] [address] Appraiser: Chalo Rendon MD Platelets (Bld) [#/Vol] 141 10*3/uL Normal 138-453 [facility] Comment on above: Performed By: #### C BC, BMP #### [facility] [address] [place] [address] Appraiser: Lucas Pink MD #### GLYHGB #### [facility] [address] [place] [address] Appraiser: Chalo Rendon MD RBC (Bld) [#/Vol] 4.74 10*6/uL Normal 3.95-5.11 [facility] Comment on above: Performed By: #### C BC, BMP #### [facility] [address] [place] [address] Appraiser: Lucas Pink MD #### GLYHGB #### [facility] [address] [place] [address] Appraiser: Chalo Rendon MD WBC (Bld) [#/Vol] 9.4 10*3/uL Normal 3.5-11.3 [facility] Comment on above: Performed By: #### C BC, BMP #### [facility] [address] [place] [address] Appraiser: Lucas Pink MD #### GLYHGB #### [address] [address] Appraiser: Chalo Rendon MD MRI LSPINE WO CONon 06-29-19 23 [place] EXAM: MRI of the lumbar spine without IV gadolinium contrast. Dose reduction technique used: Automated exposure control and/or adjustment of the mA and/or kV according to patient size and/or use of iterative reconstruction technique. REASON FOR EXAM: Lumbosacral radiculopathy COMPARISON: MRI dated 03/07/2019 FINDINGS: No lumbar spine fractures, malalignment or acute abnormal marrow signal. No spinal canal mass, hematoma or fluid collection. L4-S1 posterior jannet and pedicle screw fusion. Grade 1 anterolisthesis of L4 on L5. Small L3-L4 posterior disc protrusion. Mild L4-5 posterior disc bulge. Moderate to severe L3-L4 spinal canal stenosis. Mild L4-5 spinal canal stenosis. No other substantial spinal canal stenoses. Moderate to severe right L3-L4 neural foraminal stenosis. Mild right L4-5 and L5-S1 neural foraminal stenoses. Mild left L1-L2 and L2-L3 neural foraminal stenoses. Moderate to severe left L3-L4 neural foraminal stenosis. Mild to moderate left L4-5 and L5-S1 neural foraminal stenoses. Remainder unremarkable. IMPRESSION: 1. Moderate to severe L3-L4 spinal canal stenosis. 2. Moderate to severe bilateral L3-L4 neural foraminal stenoses. 3. L4-S1 posterior jannet and pedicle screw fusion. Electronically authenticated by: GARRET BENJAMIN Date: 2022-06-28 07:23 Normal [facility] US CAROTID ART BILon 10-28-2 022 US CAROTID ART PAZ EXAMINATION: US CAROTID ART PAZ HISTORY: Peripheral vascular disease (disorder) COMPARISON: No relevant comparison available. TECHNIQUE: Duplex Doppler ultrasound analysis of carotid and vertebral arteries. . Bilateral carotid arterial duplex examination was performed using B-mode, color flow and spectral analysis. Carotid stenosis is reported according to validated velocity parameters, similar to NASCET criteria. FINDINGS: RIGHT CAROTID ARTERY Subclavian: PSV: 114.1 cm/s cm/s EDV: 4.1 cm/s cm/s CCA: Prox: PSV: 100.4 cm/s cm/s EDV: 8.5 cm/s cm/s Mid: PSV: 84.9 cm/s cm/s EDV: 8.5 cm/s cm/s Distal: PSV: 64.4 cm/s cm/s EDV: 7.3 cm/s cm/s BULB: PSV: 64.4 cm/s cm/s EDV: 12.7 cm/s cm/s ICA: Prox: PSV: 66.6 cm/s cm/s EDV: 17.1 cm/s cm/s Mid: PSV: 95.2 cm/s cm/s EDV: 22.6 cm/s cm/s Distal: PSV: 90.1 cm/s cm/s EDV: 22.8 cm/s cm/s ECA: PSV: 85.9 cm/s cm/s EDV: 11.0 cm/s cm/s VERTEBRAL: PSV: 45.7 cm/s cm/s EDV: 9.5 cm/s cm/s ICA/CCA ratio: PSV: 1.5 EDV: 3.1 LEFT CAROTID ARTERY Extensive atherosclerotic plaque with 85% area reduction in the bulb. Elevated flow velocities left subclavian and left bulb Subclavian: PSV: 250.9 cm/s cm/s EDV: 7.8 cm/s CCA: Prox: PSV: 87.5 cm/s cm/s EDV: 0.0 cm/s Mid: PSV: 79.7 cm/s cm/s EDV: 7.2 cm/s Distal: PSV: 68.1 cm/s cm/s EDV: 6.0 cm/s BULB: PSV: 227.3 cm/s cm/s EDV: 0.0 cm/s ICA: Prox: PSV: 50.2 cm/s cm/s EDV: 6.6 cm/s Mid: PSV: 51.1 cm/s cm/s EDV: 9.2 cm/s Distal: PSV: 49.0 cm/s cm/s EDV: 9.5 cm/s ECA: PSV: 218.6 cm/s cm/s EDV: 8.4 cm/s VERTEBRAL: PSV: 39.8 cm/s cm/s EDV: 9.2 cm/s ICA/CCA ratio: PSV: .75 EDV: 0.0 IMPRESSION: Extensive atherosclerotic plaque with 85% area reduction in the left carotid bulb Elevated flow velocities left subclavian and left carotid bulb Spectral Doppler US Thresholds (Reference: Robert EG, et al. Radiology 2000; 214:247-252) Stenosis (%) PSV (cm/sec) VICA/VCCA 0-49 <150 <2.5 50-69 150-225 2.5-4.0 >70 >225 >4.0 Electronically authenticated by: CHARY AWAD Date: 2022-01-20 17:33 Normal [facility] Consent Formson 01-18-2022 Consent Forms [id number]#[id number] [facility]16-[facility]22 Creatinine [Mass/Vol] 0.66 mg/dL Normal 0.55-1.02 [facility] Comment on above: Performed By: #### C RUFINO #### [facility] [address] [address] [address] Deborah Solorio EGFR-AF NAURUAN >60 Normal >=60 [facility] Comment on above: Performed By: #### C RUFINO #### [facility] [address] [address] [address] Deborah Solorio EGFR-NON AF NAURUAN >60 Normal >=60 [facility] Comment on above: Performed By: #### C RUFINO #### [facility] [address] [address] [address] Deborah Solorio CTA ABD ASHLEY WWO CON LE RUNO FFon 01-16-2022 CTA ABD ASHLEY WWO CON LE RUNOFF EXAMINATION: CTA ABD ASHLEY WWO CON LE RUNOFF HISTORY: Peripheral vascular disease (disorder) COMPARISON: CTA chest 02/07/2017 TECHNIQUE: After obtaining the patient's consent, CT images of the abdomen, pelvis, and lower extremities were obtained without and with non-ionic intravenous contrast material. Multi-planar reformatted/3-D images were created to optimize visualization of vascular anatomy. Dose reduction techniques were achieved by using automated exposure control and/or adjustment of mA and/or kV according to patient size and/or use of iterative reconstruction technique. FINDINGS: AORTA: Moderate atherosclerotic disease; no aneurysm or dissection. Unremarkable celiac axis and superior mesenteric artery. Mild-moderate atherosclerotic narrowing of renal arteries.. ILIAC: Moderate atherosclerotic disease without significant narrowing bilaterally. No aneurysm or dissection. RIGHT LEG: Moderate atherosclerotic narrowing of popliteal artery. Multifocal areas of mild-moderate atherosclerotic narrowing. LEFT LEG: Marked atherosclerotic narrowing of mid femoral artery. Moderate narrowing of popliteal artery. Multiple areas of mild-moderate narrowing. LUNG BASES: Stable, chronic 7 mm nodule within anterior lateral right lung base consistent with benign etiology. LIVER: No enlargement, atrophy, abnormal density, or significant focal lesion. BILIARY: No visible dilatation or calcification. PANCREAS: No lesion, fluid collection, ductal dilatation, or atrophy. SPLEEN: No enlargement or focal lesion. ADRENALS: No mass or enlargement. KIDNEYS: Round cortical hypodensities bilaterally, some are too small to characterize, suspected represent to represent cysts. BOWEL/MESENTERY: No visible mass, obstruction, or bowel wall thickening. RETROPERITONEUM: No mass or adenopathy. PELVIC NODES: No adenopathy. URINARY BLADDER: No visible focal wall thickening, lesion, or calculus. PELVIC ORGANS: No visible mass. Pelvic organs appropriate for patient age. ABDOMINAL WALL: No mass or hernia. BONES: No bony lesion or fracture. OTHER: IMPRESSION: 1. Focal area of marked atherosclerotic narrowing of the left mid femoral artery which may contribute to patient's symptoms. 2. Multifocal areas of mild narrowing and a few areas of moderate atherosclerotic narrowing bilaterally. Electronically authenticated by: BLAYNE CALDERÓN Date: 2022-01-16 19:35 Normal [facility] Coding Summaryon 01-11-2022 Coding Summary HTMLBase 64 DljckhslCLn8pNr+PGhlYW Q+KK2TVDOrU09rqFBanW1W N8hQTV0TIMMGJECUZQ0KGV 2siAQ8CCsgJ8WvtnWl BnadvYLdPK34TVv7JSK3lA ezMMpnvM4uzZHbK4c4FsVx HN56jL01ZVajZZTuVnJ4Ks ZpbjsgbWFy H9ltBlHrxSYzJpv+PHRhYm xlIHdpZHRoPScxMDAlJyBz tWuoAU2xXd4jUBEgZLNcaU xhcHNlOiBj x9gqHKQbDIcvJA1jqQtwO6 MfzTV8KBPto3w8Ce71zZF+ LEBgBDL4mPzfHMwbv463Zz Cmy4umFOC3 fTZrTTaaNMZ3H77am1Z1HJ IcDSEhUUP0aSR2cS8vfZpw nnamG4AthCUsKgP7MIP8gJ MkrZ1biXpd pwtalM0dKvz+M87UIP6MJF PDRZ6DJez3W3RwRnuupTZ+ NY20DJMbSE27rYNrnCAil6 hmrVm1UpOx ZHMeRJC4sWtuRTbjl4XgVF ZsU00ixHVhl8U8ZSTvwMuw eMViAvAyjOK2bL7gFPdafp pes3japepu Odgqf7jbjw64tW89I86cDQ azLXLoJSW4VXTpCQDbbAwf qg9vtE6dSg4+AVvtw3wrw2 kwrIo6LxWs EWNdefJubDizOOL0t0NtIf 39O3EbiKnxo6LxVbu3ud59 fARcv4O0uRP5EQwuYIIojQ 2xESrmUvH5 XNFfVqBzuD00nRZhGMioZq 8xjUpadDzcFV8zGNLvkmij YHHreQ4wDMGyzXKhoCsgUQ 4wNTBpbjtm m153XlZdAAM2NKYncWHlM8 KdzN1cGqJgMIHgOXEnY4Dn sYLzEFcyL273UJolGdK1NZ VrdiWmT7Xa UDPrhWtwJwT0p7M5Bj9Ac4 CujbfxAQP0URmiCOCaTxA3 VlJwCcB8P8RqZfo9CVXmqR rzPL7mA2Sd EBOvzzpaolxeeUD6MHCjIV NcpX29eZYtUGyqXx0rr5H3 c822DSIiJQYdkX34Ku3poC ogMTBwdCBU oZ2dinmnp6jvhupyErThIL FsGVa7VNa4GZFbjZeyOdNy ICJ7ZoV0CVA2rCNbfT8akP nenjjbzB5c Oyc+W52feK3cFNU7VGV0id mmBPZpybZjVY52LP81M7Pn PjwvdGFibGU+PGRpdiBzdH rbSQ1wYjOm k9rda2TiXZxjI9QiOMLwVM jeHag5EZLtBKE1fHA0wU0l YSJtTGthz2X4bQJ1K2Vamw Qpip2ni4mg OEUpSFyiV06zhNWft1T2GQ GtmFT6YPKutJhzDyCufF03 Oyc+FPRniQvoh7SrTkkas8 qkw8icuGf9 NfKsAFNgydLilImuCKI4j5 ZdQq31C45xJZyuFIPsCAUc CLHeYRPdoJuzzr4juE2kWi 8+PGNvbCB3 yVQ6cR3qPXFnDcY9YGpxM1 74LrOxfNSfXucwa1dmg6ym qRx2IsLgVXZbgzJgyIwfXU Q9h4PiKa18 X57pCGspKJWlDVAjMXSgNQ VqoKwojl4mqX2dJa6+PC9j z0xbig80aT29uBM+PHRkIH M2qKmuRKuj KGTdzR5kWAtiFiK1ZFZhKr YftT54eDHcQIkuBb3nvVzm gPorJR3mKXElbmuij367Gk Lys1dsWWJd eHOsDCvaSFR5R44np2I2PT RyJHHfYES3bBN9kY5pnJvc bjogbGVmdDsgdmVydGljYW alTWioP919 IHRvcDsnPlBhdGllbnQgTm FqLJu2E6VwIaz6ZFWwyMui WS7urZUvZUnzQd7naBttiH yqSJ2nNGDv datke506NgRtu2kiKBMhkL YoTIlzMMD8M31pf6U9JYTz UULuQBC9wTO1cD4kjSjxkw ogbGVmdDsg xyWmbOicHEbnWPrnS926CZ RvcDsnPkJpcnRoIERhdGU6 IE67GR49lDKlg3D4oKH5D8 BhZGRpbmct aygxtRR8EQGvWRFysV78Va 4rqUvvQr5nMAGpFTG2WXGz oJCkF1EyvO6oDaUvLLCnLS XxE4YeoHKu JRyiG754EUpgQcE8QLHiri QbA8TbRIPgjFwxRhS6l4D1 Jj2TN6M0TY07YU15iQWgr5 G4mHD8X4Kv BWOptfyknowqnDI3OKSjSJ UpgK25Bb5hnYtbCx4tPHLo ZVF5CGEhpGYeL9JdjH4eYa AjMDAwMDAw N2RrdFZtYEzhG306VSkeEg I4AWNkpuTcI0DnWBKftPii LuF5b4O9Qi6LXUx9DU57AN 83dQOpz4M3 cEN5E7LiOGXsehexvzcqaF B4TPPlZWClyR43Mq8znWkf Ev6gTBExEGZ7RBQeoZYrC3 LxaE7dHkYu ZXYqRVBsH0SbuRMvWYbvW5 32CQzgWuE5RITnknSeA6Ny RZVheHaiBnB7l1G7Ed8YEU OpUB83ANK6 eJM2PF54BX26F1JjJxjmtX FibGU+PHRhYmxlIHdpZHRo CVocNWNqAtPsuRgiYD0wTa 9yZGVyLWNv jXavaFGpTdYwg8bvBUVnYH kxOE6akBqrA2WxxQH9DZCi i8p5Xq71D78eT0EekNO+PG IxxKR7xVZ5 rR6tDmEaXlK6WVueH930Ro TnwMDcDvbxo0miq9yklBw5 PlL0YHUsevBkeApxBHB5q3 PeYx99E35p IHdpZHRoPSIxNSUiIHZhbG piwu2ciU5yXy7+PGNvbCB3 fEO4qF6tNgAoKbN3SCwbT3 49InRvcCIv Ftsje5qst6ghgCn6ZlVqMM PxpyKyuShtTQK7g8ZiQc39 F5EkmWmzw1MhMul0ux14mU Iss5M2mNP7 Q9KdQFMuzloaqTDhiBqhQP 3oSASypbrcHWJdoQ3lIAWb H8r7LsAsIrX3CKryW5Ioth D0TNWtmVJg XCjqJUF2H36oh5Z7HHReUC WiFCM2qYB0tC0abAaxwkgl bGVmdDsgdmVydGljYWwtYW xeL468AJAr eBphOVZcuC2qTRKohYDkvR onZM1eLEPmpxypKmFGXUtY LCBCUkVOREEgVzwvdGQ+PH ClTGH5pVnz VHtbIPUruR6nEQCpW3j7Fc StZyZ7HYeoV6CdWZWjflam Fo66gY9bRxBtNiC1OHwdE0 CfbqA4DNPb kPFkGDjvRZX9P85li9G9RK QgFGVfQDR9pOW4dN5joPng bjogbGVmdDsgdmVydGljYW ywOOgrK533 SLDdzFzqDiT1ItA2GsU0JV Y9L8OoRyh5SKVifPfuFT8y yYExVTtkVm8xzHyvnEjrFW 4wNTBpbjtw AUGzqF1eQQUxuQGtpBnsJC 0pDRGskmqum098RjQtXYY3 SOYdpEAgE1FsyK9rYqZfSE ZlFHEwB7Lx rPWkWPcpV249YXggJvU3NW FrzbDlM3YdAJUffRzmNsL6 o9W9Ra14ZNTZLCIobbxonW Q+PHRkIHN0 uKhbYAjdSUUdpC7cKLLzH0 o6FiXqWrG8DKeaQ2OvMCMi yibvVa44rM0xJvWcAmN2EM gzQ1UhccT1 CIZqyVDvLTqeXTG3V44hl1 X2ZERbTVAuRPM7rEX2sQ2p bGlnbjogbGVmdDsgdmVydG ljYWwtYWxp P937VPBvqTkjHiWNYSQJLN wvdGQ+DXQdFQZ0kIerTXys XKVtcL8dWNFgQ6y6ZvVmGa W9QQfpY0Yb MOOmgqfaGn25vJ1sOnKvBn O2CFxcN0JhciP1UQAcrMLp JLghMLH0D43gc0M7TLAkYE TcYKQ2xNJ9 oY8mcYcupjhngIZrdIdiop CesPmeOBkyUZnfE710CMMi kOhtTaWxzMOVtZHcEIP1AK 35DD02E5Wy PjwvdGFibGU+PHRhYmxlIH dpZHRoPScxMDAlJyBzdHls TW3uTi9gUMPvZLExaKumjE DnAvKfd4gp UKBzNRavDL3mxHriJ0GlrS N9BJMnz9h4Bz46Z62hY5Sx dXA+KUEjbIH4tRT5wY3rXo HrKeD6TKlp H288FeYtiDDsOdcbp2ftb6 ixhBk4ZzYwLZFjshUyuBoz IFU5k1PrYv40U35rFSzeMI RoPSIyMCUi VSWsoXhitz4udF0uFr0+PG LtqIK5uJV9yS3dJmQhNkZ0 HOsaY008KjWmxXDrRohbE5 4yC0UmlNG+ LOUwRls4NDDabIgyKY4gzQ WeCVcoLo9dVRW3RkLuSyHn GEkkW7HvVLJjuyxssrfaxH D5YXIcFUHf iV56Nw8dfSqrPs6vPWRjNU V9JDOseTVkJ6XamW2lBvJe ZWHgNRCnQ4AdaTFgPXlxD8 70ABftQaB6 QDKqvwIdK0ZbKAMtdRcoKf X5o2L2Ne9IpTtxrWZdTN1a XbTcGFj4J2QwXeb7LGHkpB nzBS4qfLQt UKafDu0alDozcFydIZ0aEA Kqqsvol145YlQaz9npBHUf qXAfFFsjXIR0K47pi7D4IH MwMDAwMDA7 eYS6bR4rxChyuwtttKHafR uhuwFieNlpNQcvQOpwF941 LACwiYkiEnELGvr0O1WuLh d2AGJplCzb ZN4deALoVXxaIs2tzCojzC rbMT1fSEIjxvtag408ImMg w2ljWWJccZXgWZygRAJ2H7 5lo6P8APIv SCQlEXH2xBV0oC3sbHxmrq ogbGVmdDsgdmVydGljYWwt IYaiE483AFNhxUaoCx4PYg j8A2ByOtp6 TUCckFegPZ1klARsOUkuEj 2esJkufOkjJN0wUHIrdzes m257XfSax6vjKQJhhICiGF ctPEK2A60j l5E9POFfNAJvHYU7pWT2kD 1hbGlnbjogbGVmdDsgdmVy vVvkGRyiTQglK840CBZphS snPlBheWVy OjwvdGQ+ZT95bv32D8LdOo alQni7CPMmSTL6wRB0lZ5b RWJbIWflp5W0gXJ3O4Wats Cbjo6ij7yd YXB (more content not included)... [facility] Consultation/Specialist Note on 01-11-2022 Consultation/Specia list Note [id number] [facility] Consent Forms [id number] [facility] 01-10-2022 MAGR Intraoperative Record MAGR Intra-Op Record Summary Primary Physician: Ambrose Rodriguez DO Finalized Date/Time: 01/10/22 11:08:45 Pt. Name: MIRNA QUEZADA/Sex: 1950 FEMALE Med Rec #: [id number] Physician: Ambrose Rodriguez DO Financial #: [id number] Pt. Type: D Room/Bed: / Admit/Disch: 01/09/22 12:18:00 - 01/09/22 18:10:00 Institution: Case Times MAGR Entry 1 Patient In Room Time 01/09/22 16:20:00 Out Room Time 01/09/22 16:57:00 Anesthesia Start Time 01/09/22 16:20:00 Stop Time 01/09/22 16:58:00 Surgery Start Time 01/09/22 16:37:00 Stop Time 01/09/22 16:55:00 Last Modified By: Aurora Collazo RN 01/09/22 17:23:17 Case Attendance MAGR Entry 1 Entry 2 Entry 3 Case Attendee Ambrose Rodriguez Robert M MD Long, Barbara RN Andrew DO Role Performed Surgeon - Primary Anesthesiologist of [employer] Instructor Record Time In 01/09/22 16:20:00 01/09/22 16:20:00 01/09/22 16:20:00 Time Out 01/09/22 16:57:00 01/09/22 16:57:00 01/09/22 16:57:00 Procedure Carpal Tunnel Carpal Tunnel Carpal Tunnel Release(Left) Release(Left) Release(Left) Last Modified By: Aurora Collazo RN, Barbara RN Long, Barbara RN 01/09/22 17:23:23 01/09/22 17:23:23 01/09/22 17:23:23 Entry 4 Entry 5 Case Attendee Duyen Medina CST ERP PROJECT MANAGER/CSFASavanna ERP PROJECT MANAGER Role Performed [employer] Time In 01/09/22 16:20:00 01/09/22 16:20:00 Time Out 01/09/22 16:57:00 01/09/22 16:57:00 Procedure Carpal Tunnel Carpal Tunnel Release(Left) Release(Left) Last Modified By: Aurora Collazo RN, Barbara RN 01/09/22 17:23:23 01/09/22 17:23:23 Surgical Procedures MAGR Pre-Care Text: A.20 Verifies operative procedure, surgical site, and laterality Im.150 Develops individualized plan of care Entry 1 Procedure Carpal Tunnel Release Primary Procedure Yes Primary Surgeon Ambrose Rodriguez DO Surgeon Comment LEFT CARPAL TUNNEL Start 01/09/22 16:37:00 RELEASE Stop 01/09/22 16:55:00 Anesthesia Type MAC Surgical Service Orthopedics Wound Class Clean Technique Details Closure Technique Primary Entire procedure No was performed via laparoscope or robotic assistance Last Modified By: Aurora Collazo RN 01/09/22 17:23:18 Post-Care Text: O.730 The patient's care is consistent with the individualized perioperative plan of care General Case Data MAGR Pre-Care Text: A.350.1 Classifies surgical wound Entry 1 Case Information OR MAGR OR 01 Case Level Level 3 Wound Class Clean Specialty Orthopedics ASA Class 3 Diagnosis Preop Diagnosis CARPAL TUNNEL SYNDROME Postop Same As Preop Yes left Postop Diagnosis CARPAL TUNNEL SYNDROME left Blunt or No Is the procedure No penetrating injury considered occured prior to Emergent/Urgent? the start of the procedure: Last Modified By: Aurora Collazo RN 01/09/22 16:46:10 Post-Care Text: O.760 Patient receives consistent and comparable care regardless of the setting Time Out MAGR Entry 1 Time out date/time 01/09/22 16:36:00 All team members Yes have introduced themselves by name and role Surgeon, Yes Surgeon reviews Yes anesthesia, nurse critical or confirm patient, unexpected steps, site, procedure operative duration, anticipated blood loss Anesthesia team Yes Nursing team Yes reviews any reviews sterility patient-specific (including concerns indicator results) and equipment issues/concerns Antibiotic Last Modified By: Aurora Collazo RN 01/09/22 16:46:25 Patient Positioning MAGR Pre-Care Text: A.280 Identifies baseline musculoskeletal status Im.40 Positions the patient Im.80 Applies safety devices Entry 1 Procedure Carpal Tunnel Body Position Supine Release(Left) Left Arm Position Extended on padded arm Right Arm Position Extended on padded arm board board Left Leg Position Extended Right Leg Position Extended Feet Uncrossed? Yes Press Points Checked Yes Positioning Device Arm Boards, Arm Strap, Outcome Met (O.80) Yes Pillow, Safety Strap Last Modified By: Aurora Collazo RN 01/09/22 16:46:33 Post-Care Text: E.290 Evaluates musculoskeletal status O.80 Patient is free from signs and symptoms of injury related to positioning Skin Prep MAGR Pre-Care Text: A.30 Verifies allergies Im.270 Performs skin preparation Im.270.1 Implements protective measures to prevent skin and tissue injury due to chemical sources Entry 1 Skin Prep Syntegrity Prep Agents (Im.270) 7.5% Povidone-Iodine Prep By Aurora Collazo RN Scrub 10% Povidone-Iodine Cadott Prep Area (Im.270) Elbow and forearm, Hand Skin Prep Agent Dry Yes Without Pooling Hair Removal Syntegrity Hair Removal Methods No hair removal performed Outcome Met (O.100) Yes Last Modified By: Aurora Collazo RN 01/09/22 16:46:54 Post-Care Text: E.10 Evaluates for signs and symptoms of physical injury to skin and tissue O.100 Patient is free from signs and symptoms of tootie (more content not included)... [facility] Anesthesia Noteon 01-09-2022 Anesthesia Note Patient: DANI QUEZADA Age: 71 years Sex: FEMALE : 1950 Associated Diagnoses: None Author: Clint Bernal MD Postoperative Information Post Operative Note: Operative Day. Anesthetic utilized: Monitored anesthesia care. Health Status Allergies: Allergic Reactions (All) Severe Augmentin- Angioedema. Problem list (past medical history): All Problems Cigarette smoker / SNOMED CT 002597883 / Confirmed Diabetes / SNOMED CT 174895297 / Confirmed H/O Parkinson's disease / SNOMED CT 556293441 / Confirmed History of heart attack / SNOMED CT 5832494631 / Confirmed HTN (hypertension) / SNOMED CT 5498719375 / Confirmed Physical Examination VS/Measurements Vital Signs (last 24 hrs) Last Charted Heart Rate Monitored 55 bpm (JAN 09 16:50) Resp Rate 18 br/min (JAN 09 12:45) SBP 104 mmHg (JAN 09 16:51) DBP 55 mmHg (JAN 09 16:51) Review / Management Condition: Stable. Assessment Anesthetic outcome No anesthetic complications noted. awake and alert, adequate hydration, no pain, no N/V. Plan Transfer/ Discharge: Patient can be discharged from PACU when criteria met. Condition good. [Electronically Signed on: 01/09/2022 16:59 EDT] Clint Bernal MD [Verified on: 01/09/2022 16:59 EDT] Clint Bernal MD [facility] Anesthesia Note Patient: DANI QUEZADA Age: 71 years Sex: FEMALE : 1950 Associated Diagnoses: None Author: Clint Bernal MD Preoperative Information Anesthesia history: Patient history: No difficult intubation, No malignant hyperthermia. Family history: No malignant hyperthermia. Review of Systems Constitutional: Negative. Respiratory: Negative, No shortness of breath. Cardiovascular: denies any cardiac symptoms since cabg 2000, No chest pain. Neurologic: Alert and oriented X4. Health Status Allergies: Allergic Reactions (All) Severe Augmentin- Angioedema. Current medications: Home Medications (14) Active acetaminophen-hydrocod one 325 mg-10 mg oral tablet 1 tab(s), PRN, PO, q6hr aspirin 81 mg oral delayed release tablet 81 mg = 1 tab(s), PO, Daily atorvastatin 20 mg oral tablet 20 mg = 1 tab(s), PO, Daily carbidopa-levodopa 25 mg-100 mg oral tablet 1 tab(s), PO, QID CeleXA 40 mg oral tablet 40 mg = 1 tab(s), PO, Daily clopidogrel 75 mg oral tablet 75 mg = 1 tab(s), PO, Daily isosorbide mononitrate 30 mg oral tablet, extended release 30 mg = 1 tab(s), PO, qAM MetFORMIN (Eqv-Glucophage XR) 500 mg oral tablet, extended release 1,000 mg = 2 tab(s), PO, Daily prednisoLONE acetate 1% ophthalmic suspension 12 drop(s), Both eyes, BID pregabalin 200 mg oral capsule 200 mg = 1 cap(s), PO, TID primidone 50 mg oral tablet 50 mg = 1 tab(s), PO, BID rOPINIRole 0.25 mg oral tablet 0.25 mg = 1 tab(s), PO, QID tiZANidine 4 mg oral capsule 4 mg = 1 cap(s), PRN, PO, HS Vitamin B-12 1000 mcg oral tablet 1,000 mcg = 1 tab(s), PO, Daily Problem list (past medical history): All Problems Cigarette smoker / SNOMED CT 513173002 / Confirmed Diabetes / SNOMED CT 691069170 / Confirmed H/O Parkinson's disease / SNOMED CT 924303488 / Confirmed History of heart attack / SNOMED CT 9654169937 / Confirmed HTN (hypertension) / SNOMED CT 5076301524 / Confirmed Histories Family History: No family history items have been selected or recorded. Procedure history: Cholecystectomy (37366711). Triple coronary bypass (442511083). delivery (1308664350). Comments: 12/30/2021 13:19 EDT - Yana Samson RN x2 Social History Electronic Cigarette/Vaping Assessment Electronic Cigarette Use: Never. Alcohol Assessment Use: Current. Beer, 1-2 times per year Tobacco Assessment Current some day tobacco user Tobacco Use:. Substance Abuse Assessment Substance use: Current. . Social & Psychosocial Habits Alcohol 12/30/2021 Alcohol Use: Current Type: Beer Frequency: 1-2 times per year Substance Abuse 12/30/2021 Substance use: Current Tobacco 12/30/2021 Smoking tobacco use: Current some day tobacco Electronic Cigarette/Vaping 12/30/2021 Electronic Cigarette Use: Never . Physical Examination VS/Measurements Vital Signs (last 24 hrs) Last Charted Heart Rate Peripheral 79 bpm (JAN 09 12:45) Resp Rate 18 br/min (JAN 09 12:45) SBP H 174 mmHg (JAN 09 12:45) DBP 82 mmHg (JAN 09 12:45) Airway: Mallampati classification: II (soft palate, fauces, uvula visible). Temporomandibular joint mobility: Good. Mouth: Adequate opening, Dentures ( Upper and lower dentures ). Neck: Full range of motion. Respiratory: Lungs are clear to auscultation. Cardiovascular: Regular rhythm. Neurologic: Alert, Oriented, significant Parkinson's tremor and speach pattern. Review / Management Laboratory Results Plan [place] [employer]#(ASA ) physical status classification: Class III. Anesthetic Preoperative Plan Anesthesia: Monitored anesthesia care. Anesthetic plan, risks, benefits, and alternatives discussed with the patient and/or family. Patient verbalized understanding. [Electronically Signed on: 01/09/2022 15:07 EDT] Clint Bernal MD [Verified on: 01/09/2022 15:07 EDT] Clint Bernal MD [facility] Inpatient Patient Summaryon 01-09-2022 Inpatient Patient Summary [address] [address] Patient Discharge Instructions Name: MIRNA QUEZADA : 1950 Patient Address: [address] [place] [address] [address] [facility] [id number] Primary Care Provider: Name: VILLA NICOLAS After you are discharged if you find you have any questions, please, call [phone] ext [phone] to speak to a nurse. Discharge Diagnosis: Left carpal tunnel syndrome Prescription Information: If you have been given a prescription for narcotics, seek immediate medical attention if you have any difficulty breathing or any sudden status changes such as confusion and sleepiness. If you or anyone you know is experiencing suicidal thoughts, mental health, alcohol and/or drug addiction problems; contact the [facility] 16/10 Crisis Hotline -text 4HPAH zh 187150. If you received any narcotics, sedation, or any other medication that causes drowsiness for the next 24 hours, unless otherwise directed: ? Do not drive a car. ? Do not operate machinery such as power tools, lawn mowers, drills, sewing machines, or stoves ? Avoid alcoholic beverages and drugs for allergies, nerves, or sleep ? Do not make important personal or business decisions or sign any legal documents [facility] would like to thank you for allowing us to assist you with your healthcare needs. The following includes patient education materials and information regarding your injury/illness. MIRNA QUEZADA has been given the following list of follow-up instructions, prescriptions, and patient education materials: Follow-up Instructions With: Address: When: VAZQUEZ COATES [address] [place] [address], [address] [place], [place] [id number] Business (1) 01/18/2022 11:30 AM With: Address: When: VILLA NICOLAS [facility], [address] [place], [place] [address] [place], [place] [id number] [facility] (1) Medications During the course of your visit, your medication list was updated with the most current information. The details of those changes are reflected below: Medications That Were Updated - Follow Below Instructions Other Medications Updated: prednisoLONE ophthalmic (prednisoLONE acetate 1% ophthalmic suspension) 12 Drops Both eyes 2 times a day for 10 Days. Updated: primidone (primidone 50 mg oral tablet) 1 tab(s) Oral 2 times a day. Medications to Continue That Have Not Changed Other Medications acetaminophen-hydrocod one (acetaminophen-hydroco done 325 mg-10 mg oral tablet) 1 tab(s) Oral Every 6 hours as needed as needed for pain. aspirin (aspirin 81 mg oral delayed release tablet) 1 tab(s) Oral every day. atorvastatin (atorvastatin 20 mg oral tablet) 1 tab(s) Oral every day. carbidopa-levodopa (carbidopa-levodopa 25 mg-100 mg oral tablet) 1 tab(s) Oral 4 times a day. citalopram (CeleXA 40 mg oral tablet) 1 tab(s) Oral every day. clopidogrel (clopidogrel 75 mg oral tablet) 1 tab(s) Oral every day. cyanocobalamin (Vitamin B-12 1000 mcg oral tablet) 1 tab(s) Oral every day. isosorbide mononitrate (isosorbide mononitrate 30 mg oral tablet, extended release) 1 tab(s) Oral once a day (in the morning). metFORMIN (MetFORMIN (Eqv-Glucophage XR) 500 mg oral tablet, extended release) 2 tab(s) Oral every day. pregabalin (pregabalin 200 mg oral capsule) 1 cap(s) Oral 3 times a day. rOPINIRole (rOPINIRole 0.25 mg oral tablet) 1 tab(s) Oral 4 times a day. tiZANidine (tiZANidine 4 mg oral capsule) 1 cap(s) Oral At bedtime as needed anxiety. It is important to always keep an active list of medications available so that you can share with other providers and manage your medications appropriately. As an additional courtesy, we are also providing you with your final active medications list that you can keep with you. acetaminophen-hydrocod one (acetaminophen-hydroco done 325 mg-10 mg oral tablet) 1 tab(s) Oral Every 6 hours as needed as needed for pain. aspirin (aspirin 81 mg oral delayed release tablet) 1 tab(s) Oral every day. atorvastatin (atorvastatin 20 mg oral tablet) 1 tab(s) Oral every day. carbidopa-levodopa (carbidopa-levodopa 25 mg-100 mg oral tablet) 1 tab(s) Oral 4 times a day. citalopram (CeleXA 40 mg oral tablet) 1 tab(s) Oral every day. clopidogrel (clopidogrel 75 mg oral tablet) 1 tab(s) Oral every day. cyanocobalamin (Vitamin B-12 1000 mcg oral tablet) 1 tab(s) Oral every day. isosorbide mononitrate (isosorbide mononitrate 30 mg oral tablet, extended release) 1 tab(s) Oral once a day (in the morning). metFORMIN (MetFORMIN (Eqv-Glucophage XR) 500 mg oral tablet, extended release) 2 tab(s) Oral every day. prednisoLONE ophthalmic (prednisoLONE acetate 1% ophthalmic suspension) 12 Drops Both eyes 2 times a day for 10 Days. pregabalin (pregabalin 200 mg oral capsule) 1 cap(s) Oral 3 times a day. primidone (primidone 50 mg oral tablet) 1 tab(s) Oral 2 times a day. rOPINIRole (rOPINIRole 0.25 mg oral t (more content not included)... [facility] Postoperative Record [facility] Phase II Record Summary Primary Physician: Ambrose Rodriguez DO Finalized Date/Time: 01/09/22 18:22:17 Pt. Name: MIRNA QUEZADA/Sex: 1950 FEMALE Med Rec #: [id number] Physician: Ambrose Rodriguez DO Financial #: [id number] Pt. Type: D Room/Bed: / Admit/Disch: 01/09/22 12:18:00 - Institution: Phase II Case Times MAGR Pre-Care Text: Patient is free from s/s of injury. Patient remains free from compromised physical state related to surgery or anesthesia. Patient comfort maintained. Patient/family verbalize understanding of discharge instructions. Entry 1 In PACU II 01/09/22 17:00:00 Discharge from PACU 01/09/22 18:10:00 II Last Modified By: Laura Lepe RN 01/09/22 18:22:13 Post-Care Text: The patient remains free from s/s of injury. Patient's vital signs stable, circulation maintained, return to preop mental and physical status, opsite/dressing intact, minimal or absent nausea and vomiting, tolerates po intake. Patient verbalizes adequate pain control. Patient/family express understanding of discharge instructions. General Comments: Stable to transfer home. pt ready to go home Finalized By: Laura Lepe RN Document Signatures Signed By: Laura Lepe RN [facility]22 [facility] Pre[facility] MAGR Pre-Op Record Summary Primary Physician: Ambrose Rodriguez DO Finalized Date/Time: 01/09/22 16:37:48 Pt. Name: MIRNA QUEZADA Arya /Sex: 1950 FEMALE Med Rec #: [id number] Physician: Ambrose Rodriguez DO Financial #: [id number] Pt. Type: D Room/Bed: / Admit/Disch: 01/09/22 12:18:00 - Institution: Pre-Op Case Times MAGR Pre-Care Text: Patient will be optimally prepared for surgery. Patient is free from s/s of injury. Provide information to patient/family related to plan of care. Verify patient allergies. Confirm identity and verify consent before the operative or invasive procedure. Entry 1 Patient Arrival Time 01/09/22 12:40:00 Preop Departure 01/09/22 16:18:00 Last Modified By: Aurora Collazo RN 01/09/22 16:37:47 Post-Care Text: Patient is prepared mentally and physically and is ready for surgery. The patient remains free from s/s of injury. Patient/family express understanding of plan of care and participate in decisions affecting his or her perioperrative plan of care. Allergies documented appropriately. Patient identifiers and consent correct. General Comments: [facility] arrives to [facility]. PT denies cp, sob, cough or flu like symptoms. Pt denies pacemaker/defibillator or sleep apnea. Finalized By: Aurora Collazo RN Document Signatures Signed By: Aurora Collazo RN 01/09/22 16:37 [facility] POCT Glucose Levelon 022 Glucose [Mass/Vol] 118 mg/dL Normal 74-118 [facility] Comment on above: Performed By: #### 4 [id number] ####[facility] (DEFAULT)[address] [place] [address] Patient Handouton 01-09-[address] 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 This keeps the tension off your incision -You may shower in 1 day but do not submerge your hand under water. Put a 4x4 gauze and the curt bandage back on after you shower -If you have any problems or concerns, please call the office at [phone] -Follow up as scheduled [facility] Progress Note - Nurseon 12-24 Progress Note - Nurse Spoke with pt and informed her to be here at 7am and NPO after MN, she verbalizes understanding. [Electronically Signed on: 01/06/2022 12:05 EDT] Itzel Dubose RN [Verified on: 01/06/2022 12:05 EDT] Itzel Dubose RN [facility] 2019 Novel Coronavirus (CoVI D-19), INDIRA LCon 01-05-2022 SARS-CoV-2 (COVID-19) RNA INDIRA+probe Ql (Unsp spec) Not detected Invalid Interpretation Code Not Detected [facility] Comment on above: Order Comment: [id number] [facility]#[phone] Result Comment: This nucleic acid amplification test was developed and its performance characteristics determined by [employer]. Nucleic acid amplification tests include RT- PCR and TMA. This test has not been FDA cleared or approved. This test has been authorized by FDA under an Emergency Use Authorization (EUA). This test is only authorized for the duration of time the declaration that circumstances exist justifying the authorization of the emergency use of in vitro diagnostic tests for detection of SARS-CoV-2 virus and/or diagnosis of COVID-19 infection under section 564(b)(1) of the Act, 21 U.S.C. 360bbb-3(b) (1), unless the authorization is terminated or revoked sooner. When diagnostic testing is negative, the possibility of a false negative result should be considered in the context of a patient's recent exposures and the presence of clinical signs and symptoms consistent with COVID-19. An individual without symptoms of COVID-19 and who is not shedding SARS-CoV-2 virus would expect to have a negative (not detected) result in this assay. Performed At: [address] [id number] Birgit Andino PhD Ph:[phone] Performed By: #### 6 [id number] ####[place] [address] Coding Summary 01-05-[address] [facility] WrgaztbgAZa7kYg+PGhlYW Q+WG9SJTZqX76jgGVxoO9R P0yOTD0SDXBFZGGFYA1DCD 9zkMS6IBjmZ8AorpPx WexikSOwMU62JUt0XCX5kG xrLLbbyB4isQArE1u3XnNg QY06cC58FGljMZDqNeL8Wa ZpbjsgbWFy T8olBjAbcQBvSuk+PHRhYm xlIHdpZHRoPScxMDAlJyBz jZeyKA6gDq3kUYFkNEGkgP xhcHNlOiBj z2txDFPsCLxvBJ7nxYfbP2 PnfCD7SEHqm7o2Of55pRO+ KJRwUXR9bGcyUMysl803Ah Xpq3uqNCF9 fWCjCZvwOZC5M34mg9Y5WE MaHQJrQFK2nNB9kL9seWlc kiraN6IniMXmWsQ8KMF5uL CkiX1mbQkq ithfbY1wMxw+S55SHJ8NHP AMMX7YNrn9E1RbVhpepQC+ GU93UHOlQM92gSBohGAyv1 fwcPc9VcNj CUIxQPJ1oNjfXJrpe0TzDR MwT56npAEvx8K3GLIfjRhv zVZuUqDxhEG3bS3oAYrfqi qce3rzpspm Vkzae7iffy21pL51J79pVV boTPExSDX7TMOyCVSmcGdx zm4igK5vNr1+GKvxo1fpl4 pugJs6ZhJu TZGnapUlyFdiAJW1q5YqMx 62T8UssTtkx8BsCxd2ga06 lDWie9A4oFM8HIdnKOLlwK 6eHAkgHoS0 WHEeVsLgbU94dPZzCPemFn 3jkMfxvZtzZT5gQQDmeofm LZNieU2oJUSkyGHevSpuNY 4wNTBpbjtm l233CqShXRJ9OZKkxSXuL5 XiuQ4uPhYqXPHgALSwB4Fy oLJiPAksQ451OJwaUyR6KB EvdsOqF4Dl DFCfvHeiIgX5p1X1Xd5Eb4 TgulebXVP4UWynJYXcSdVl RmIkNrU7C9ZxHgl5DDNmyS aoOP1aI8Ui BXHadnxghqabvFQ0LRLoKG ByyR76eJSaFZnzGc7gh3Z2 c153CAZkZDEkqK03Qp0akQ ogMTBwdCBU kF2zwqzrw5lwloxjZcYxOC UeMCl3ZWx6RXWklRqdGlQk DFK9SpH9XVE8kBUgxO2qfS otklpreZ8u Oyc+A92hvW4wVXT0ZIC0yj ntTEAcibKoDJ47ID54S8Rl PjwvdGFibGU+PGRpdiBzdH riHM1aNbTy z3unf2VdKDvyM8EaRRRcFZ ntSwt7CTNwUKM3ePU0oK1p ADKkUQdeb2I5yRX1R4Wznv Jdqt2lv1kf BXQoSHomD21usOTkr8B1FJ GraRE5NLJnbWkrCcKopX25 Oyc+JVVjqSdep2ClYwbws1 zww7xfaIu8 BjVcZPFbwgYilQagHJA1v5 BlKo09E61vKLiwSOKjEHBk XUJpQZGmjUbonh1mtA0xNv 8+PGNvbCB3 xWZ5lV0xAYHkPlU7BRzaZ4 96JzGeaXYzRpwvw8uph1cg lYx2RwZwERRafkNlfVewOG L2f6NwZz34 H77wNMksPZJqNGSlARNyCD RjlAdwpv5rzF9aUq0+PC9j t9mtvc01pZ47fPH+PHRkIH U6qIfqBKww OFVbtG5xIAszFeX8GPRcIj WfzA46xPRsYUgcRy2ghUmk zKvxIS7hMHYfwjatp629Sh Nht6tiNGBa fHNpYYcqSYO6G02oi7P6AF VdTYZsNRE9sKH0sM5wiEsf bjogbGVmdDsgdmVydGljYW khOMmzI062 IHRvcDsnPlBhdGllbnQgTm XqPXd8O7NpAdo1TPKpyLwz ZO9mvPKqIZyfYy8yxGbtjW edBQ6pATJv deiov981TlMbp4gsYHLzgD XqLIbzEZI7S55ga4X4RGRc HYNhICQ6wQQ6mI1ciVasyh ogbGVmdDsg gyUihNbzRVvpYMuzM722ZN RvcDsnPkJpcnRoIERhdGU6 EX31UE43qCLtp6X3uHA5X5 BhZGRpbmct mgdhyKU9PCSkXCAmkJ04Rn 3wjBurUj3wASYoTTS3QKFh wSPuU5GccI5mFgFbNEWsHI UfU5XivRQn UQmhC516JEwhUvH3YQDmug ZiK7ZpFRMecRoxEwT9k7G1 Pt1MW7K0VV92GX67uYPbo8 Q6mAK2C6Xw WLGoljnxkdsivKO9KVYcYZ LseL22Nz9vlNnePl1nFYOg BOP5GJYviGJlI6TjqM2uRb AjMDAwMDAw N0OzcKOtJEgeW046PPzkTw F5GFLydlJrJ3FhEIRqqZly ArR2g3G6Gt9SMDo7BS21CC 51xIXkv9H7 mLI3I4WjHNHvtmmbsbisnU D6LYYpZARheT01Ai5iiVhl Mz7rUSAlFUU9TYEsgVOsV9 HwcK7oXtQz XHHgUWGpU7DyhJOfENhlX7 41LKhuBzL8GKSxawOvQ9Yg TFHqiPayKeI3w3A5Sk3HZM CcFJ70PSL3 dVC2IH54KW11M9DrBkzdtG FibGU+PHRhYmxlIHdpZHRo WDurUBSxKqThgCkpAF1mZe 9yZGVyLWNv iQczwQHkAqDvm3zpNOEyOH hrMO6awUdfK5NgzVZ8XLSx g6h7Gq74N84tB8GywMU+PG KyhVT3uMD4 yX8wShSrLdG3MVmuF633Sy CwzWKpXjwhy1fmx9kodAq4 MwS7CUEoxkJvgQsyBHV1g8 LfMh83C74h IHdpZHRoPSIxNSUiIHZhbG klox4wuA2bVg3+PGNvbCB3 kUV0kY9qTaPpYbV8CFykD5 49InRvcCIv Kxijm1vqr0xsuDw9XcBaGE TrzlWcuQzwSGA9t3ScQr35 L5HkwBhez3FzJma5ai78vA Sjd7Y9wER9 N7IrEFEzqdbbdHBalKoyDL 7nUVXbuuyyQQQphU0tCODe I2j7RuBxOpP0BZmyZ2Bdcw C0GHGpmVGr WXnsVGL2F79kb3X4ZHTlNR OiHKX5gLI0aA8yvDhqtlsu bGVmdDsgdmVydGljYWwtYW cfT754JPMb fZtfGGTczD9uDQNeqLHhzI bxIH4ySLIaqsltHfQSNYiB LCBCUkVOREEgVzwvdGQ+PH ZoNXW4pLiq SIvyEQYygR4lQYHyO2b4Ev AwKeD4TFspZ9RbVHPrjdjm Vl53mH6xLlVjOtO5DYhoC9 OfodW8WUWp mGYjLThpLDJ3A06ae9M4OC ItELObEUQ0iKU6zA1gcLbl bjogbGVmdDsgdmVydGljYW rsLNeqG283 PIQxfJedJdP9WhX8IyW8FL X6R9NcGug7ZEIkzIxqYW7v lJBdJHjwHv4jxFyfhJirDX 4wNTBpbjtw ZTQeuV5iOTCwiJAtkJobZI 8cILXmvzedr815FsIlEYP5 NAOcfTFrE2WvuB3wQbSnPN UuYDXgN1Zc dFZlAGazQ389XIxqMbY0GR YzowApP2RvQERrgWsqLsB2 c2Q5Xf93FQDQXBJxlwwlsS Q+PHRkIHN0 pQeaYFxfGSEvlJ0nIRNkO0 d8LeCeIeX4KAtcW5KoIDPa krtsNd87oK2uNgMeGgC8LR nzI8NzaoO1 DPBqhUVePAbgTIT4T03es4 C7ESGgEFBcZJU1zAA0aX4r bGlnbjogbGVmdDsgdmVydG ljYWwtYWxp M054EXHriLclEnELPBGKLS wvdGQ+XTXwKSW2dRalBAxp YNMmmP7mTODbG1h7NcUaSi A9DFubL5Sp SFKvfczkWh14yF8oAvClVa E4KXmpC7TwikP2KDZaoQGx JUbmLKJ4H23fr8X3YWVzLO DdTNY2nYV4 iZ3oiRnuqnpwkVIdsPljid UbfYzlXTvtGLirL069AXPe tKnqWg3WCK19PL77C1LwLn wvdGFibGU+ PHRhYmxlIHdpZHRoPScxMD LlXxRvtUcjOV7lMm9cWGRw SHTokAvwlMCxHfQos0taTC NaRKflKU9a sEceT8QiaKI7EVHaw7g8Ow 04S46rM8AtnLP+PGNvbCB3 pAA4yP8iFfRfHyT9TAlrJ0 49InRvcCIv Wffrs8ehy3xseMg6OyEyKM VzsxJujCbcHFQ3m7HhSh37 G52yXYynMBYeVRHtNOWyHL IfsRnsdu6f xE9nIn7+MPBgyUC9eAD2wW 2ePgKoNsM9TXbfK024OcQt pEBzAeawF84gS7NnsBB+PH ZcHio7JSKu yVjjCK1azVBmIZihSt6oSZ D3AeTeDyWeBHbnD6ToKUGo uoavetyrrJC5HBZsSCUmgK 65Zj2knXkv Kc6pSPMmUZX9VQZanJNeO7 FfmP9eGxKxRAWsTVKgP9Xv cQCwFPlhW654WZstUwH2KI DcnyQfB7Cu GBPcoJqmPzR0b9N6Fw7KoW cujGHlEC6mRnAsYHn4W7Gm Lzk2EVTetTcrYK1kzZKmOR qpWo6snAgi zVucOX1mZNHcucjbw629Iu Pjq7hbBNTzyPQpJRvlTIT0 N82ca9D5YOKfNTMcHUV7wB U6bP3keAmi bjogbGVmdDsgdmVydGljYW rtVIfdI353SKRbfUhwGwYM Jat9R8NiOzj0LTWnqNifCR 0ncGFkZGlu Lc5tcGxzzViaII8qYFNkqg ttt651YxGzz1hzMWWfvQQi VAofSMN8P46km0N7TTXvAZ RsADW9aKB6 gC2cxRthqqvdtLRdpKqzgs DykXtxPIqjSDnuF751RVCi kMkcGo4DGhh6V5ZrJjg0JH EkuGcfJL7j vMLrWMuzHm8ovEuhrHkhUO 9vGLBuzhrvs400ZsRbj6my WTHzwQCeTOpaMEB7E43jh3 D8DVSmQLWh DFT1nMY5cR9wwTpigmoobS VmdDsgdmVydGljYWwtYWxp A172GZCxbKjqRdIysLZkVx wvdGQ+PC90 vy77N7PwUklhDby1MLPlKV Z1vGL0iJ7gVFPlUHhti4S5 rMZ5I8CrrgWrnp5nm6ykKV XeWGmwX61k bGF (more content not included)... [facility] Coding Summaryon 01-03-2022 Coding Summary HTMLBase 64 DodssjaaZYt7jSy+PGhlYW Q+PZ7QRWPlG66drLNqyQ0M U0wJOE9IGBXDRECQEF5YUR 3hdAA4GLkcO1XtihMw ClgrsXAvTP01SCw5HTT0hD ftAEbwoY1pjPVvB3t2OvAp RN13aB10UWqiKWCyMnI8Nf ZpbjsgbWFy B6rkCvQkdQCwJmx+PHRhYm xlIHdpZHRoPScxMDAlJyBz wRqpRU5cPb7kWPPhDVRprW xhcHNlOiBj f6tqYGNhOLpmXJ4zbOvmO0 WksGM6RELfq4c7Mr08aIB+ QOUvARW3jUwhPRxlk885Ee Jdp7mlTOG6 eRMfOAzzNHR1E04pi4U8GD TmQBDrLIB7dIW1gW5ewNtq qhqpX6ExnVPqKsI2PIY9pF XlsH7hzMed webxnG4pLpr+Q11SLO9RKR TQQP9GKxh6C6SrQtasvNZ+ GN50OMEvOV39uUDgsHZyq7 nicYm6GaOv WWIxTOR8vHbiAMmub7ZtVO UsG55rrZTxi5F1TBNxwOzh yDTaCoBgsFH3rW2dTMjnaz hhc5jpemzz Hikqe8pkhn21zZ63G82qMC iyEQBpSXZ3RCKtHYFvwJnv pm7heN4hJw3+ZDcyo5dic6 gjlDr3EmBz HUFgtnVtnZidCWW6r1FoMp 98G8QmbAffj3ItRoi6zh16 yXOke0C5kWR3QNzgPJAafM 6fPOnmOkK2 LGTgFlCkaI80oDCgYSymTz 1raRruqCkrWR8vKSZzkypj OJFafS2sFHChmKPnkGdmFW 4wNTBpbjtm l503LsBcDRZ8LCOblZEtY9 PbnS1oKmBnCDJwUPExV4Tn uTWvXVkvW557QPobUrU3LL XktlCoY8Wb DQDqwKgzBpO2i0E8Qd5Ad4 EetumxMZM9TPxtTVCeLhJq ScRwVgK3J8IbFkb1NMHptW qjSR3bO5Ok LWPchgruhdmtbNS7SJMwDA OqvI96gFYdIYcdWv6hl0U7 f655XWRwVQMynP28Tk8lyZ ogMTBwdCBU jL9jxzekg9pcmculGdAcAL AuMMa3LIe5JPCcnXmzJgCg AOF7SxC8HVR7pXLdmE8wdV mxslvgnI0p Oyc+S11fpY5vJUA6FGI4rn lmUNBqhzQoSB19XK60S2Hy PjwvdGFibGU+PGRpdiBzdH buGB8jYlOc e2dbv1RnFYosJ2CeIGGwHS vhNwa0FTQzPST7jTZ9qF1x NIZbMHiww2C6eYC8O7Txqc Pnis7zo1sy BRYcCQddB39krJNbs8N3LD WwqIT2KXBtqBdaEqIjsY06 Oyc+KOXxnQqfs3VrBfghy8 ljr6ieyOl8 UuVqGOEwlsPzkBwtXDO2r8 SfVv29V22gWWtbIJJlCKSi JFAiRCYtmXwymb2czF0iDp 8+PGNvbCB3 aQB4yN7zWSLuOzR8RMnjN3 78MePelRVpIbmbr9knu9ny mMi4TlNkHPCbzyGeuSjeNU N9n0HiNc34 T34zHHmzXSTkUBTlXOKcCS VafRekae8qaV9oYk7+PC9j i2vqon74hM50nAU+PHRkIH E0tDcaHTvm DPBboN1dBHmhZvT2TYSzNq NiwG17tIVeQZveKq7yrYkz jGvbKM1qBYAtrrxrg724Hk Mmg5beAOWh xMGqQUpmUYP7S41cf7P7YV SwTXQcHCH7qRT7jW5gfTzr bjogbGVmdDsgdmVydGljYW ufLEdpH374 IHRvcDsnPlBhdGllbnQgTm EsLHp5O1PiXla4SGDijCth QP0etDFpKQyoOs0vxOpwmT rtDW4sSPMq azmow981VtMwj1wxRLZofM MrOWsqUBU9J55yl0Z7WMFw PREoPTL8fNZ6dX5riWxdbs ogbGVmdDsg ioOdjCabXJvdOOmcB647WB RvcDsnPkJpcnRoIERhdGU6 TO53WX25hYIbq6U1vNH2G1 BhZGRpbmct lfmzjDK4IEEpWODpiC80Zt 9lbLfpCq8eNQHiWOW7BPFq jZYxT7GzuF1cBlKmBHDxZG RoS3KllPQe TFsnJ247KEysLbH1AGRejf UzP9UpAJKhlPsyGsZ1q7J2 Ov6GZ8W7YS61LB59sUSvm6 O3xWI4P4Ka DPDddhuwqqvmdRS5VEWyEO RatB64Ev3hzVvfSt4uSHZz BAS4ATEyjWSuX6LuoQ1vZd AjMDAwMDAw Q3ZqwBKmRIhkW978JWnoPg P9CTOlbiRxZ7JyZZQniSfd DrR0i6T1Ru9RXAe9LN43BU 69uUGoj1I2 oWB0Z4VkCSIuaejwdjleqU L0QPGiCJPywC01Ip7sxYzi Vg7gIVMhUPZ4RAKniOXzB3 DgzP6cDxFs GQZoPVGaZ8ZcvAXjOAbhF2 52BPgpDzD3PDBywdVdK4Za SANkkMupImU5i1D8Cg3EFK UrDX92XRA5 tBR2NF94ZN66K4BfLaplfN FibGU+PHRhYmxlIHdpZHRo UFjwGDTqFnRckFpcUB0lBj 9yZGVyLWNv pZerlXJvNtRts0udBZFrHH bzJA7hbBpaL0NihDD4GEEm f8g1Xa63E42iR5JchHC+PG XxaVD3hAW7 rO1uZiIeHnJ5LCzlZ054Ip RhrIGcEglcp7sye3poaAu2 LkP1KQMcwmCmjMwgUKH0f5 MzGp03K71e IHdpZHRoPSIxNSUiIHZhbG attc4sfL2vXs9+PGNvbCB3 vXN8hM1lLlLrUqH2LJrkT0 49InRvcCIv Xmequ5yop5qicKu3CpFfPE FxvnWqlYknGZR0m7UxWc06 S3FubVkjt1GjLew8an17fB Tza0P3cBW3 C2YxNLAewrkssWEozSikUR 7eQOEjdzikPKXurY1mNYHl Q7n1UtPxDsJ4ZXxgP6Qozx T5MPTicBZb YRbsBOQ2Y72lg4S5CHZyWX ZqWKC6rRW5bB5lbBmwjwdv bGVmdDsgdmVydGljYWwtYW loY575HPYi sPrsBKPydV3cVGEzyUOxjZ dfQO8xILQcraloEmBRNWaE LCBCUkVOREEgVzwvdGQ+PH DhIFY4aFzy RDphARQwkM8nJUEjZ5p5Nu DbAbH6ZOglV6LhPAQvqvax Zj77yT2vUlOlQdJ6KPitG0 IkbeS4NZJh zTYwFByiDGC3X54xk3H6FS DhVQHeUTZ5bTJ8wV9egUzf bjogbGVmdDsgdmVydGljYW meCPhiD961 PARlxNyjEhY5ToG6RnH6XX D3C4QpUrk8JOMhxBkpGD0x rHQhYCseDf3dyEtqxVfaEF 4wNTBpbjtw AACykB3fHBCntQRqsRtdYE 4pSRCsdcptm339VmZsRUX1 ULFfjCQrE4YuvM9uTxOsPP EiRDVcK9Ws vXOfKGjcS732XFowTsY3WE ZkefCjU5WjXZEcmJkiYlZ8 m4Q3Xw59VQLAKOSydhhsnS Q+PHRkIHN0 gQilSQzsGDAstX6yEDWfU5 v9SvIyVsB4IKpnW6UyHYNm npxyOx50xE3vKbRtMqM0RZ ueQ1JoaqN2 TNFliNCeBTfkWKQ1S12tw3 S7DBHuIZXfFXI0zFH6mF8v bGlnbjogbGVmdDsgdmVydG ljYWwtYWxp A285JXUnaLrxUrOAKLRGWJ wvdGQ+FWLxAOW5kUnwTPrc YUBvkW3pDFLnQ7m2PbKuJy R2CSjjC8Qj EFHjwaweZv12nP3vFqUhAt P3DGwpK6WienJ2SJZezKNr IPxaINP4R20sr8C8RXSdGJ EhCRO6qJC8 wG5sdPkigpkydQIukZouaw YbuTfeQNnfDMeyR020HFSj mMuqDp4MOC42XG37L0VmUi wvdGFibGU+ PHRhYmxlIHdpZHRoPScxMD LzViFmnSqsDD1nQf3bBFVo IJRrpEbqyLCyPrZez9ztHJ ZtZSluGM0s jXjyM7JmiPN5PZQdr2c4Xx 39P08iY5VlzOW+PGNvbCB3 vHK3oK2xQgFrYpL0BCvkG6 49InRvcCIv Itkka2cnu3etfBi9LhCrUA AexqKggZmrZAD9i8AnBz93 Y74gQAryWFHnGEWeXDRwLM TljEyele1u qX1lCy9+SPGvwMG0lSC9lV 8aLnPpHdX1XYtwK846OwBs tXEsVlvoB76tT9UacJK+PH ZwWzx1DIFm dMnrXN6yhYIfDPjfPa9kGW G2JrWzLtKyVCerV4MhFPIc ugmgffiktNZ7ECFaSKKtbG 11Xg8jfVkd Jh7eBZFrNWF0EWQhhRVjT9 UgwI3fMwHuBUMvNYYfK9Dl vHIkQCyuB862OPujFvY0CU OonuDsY4Ax KDSbtTzoZiH0j0K4Rm3ZiK szyHEoTL8bAzIrVIx3P8Pk Bjh5LWRvqJteVG6neNSaUX uaPv0mgSke mAlpPY8lHQTbmwwlw774Tb Uvy4hpTITruSJdZLhyLFF7 V90lt2A3NFQjNILcRNS5sJ F7iI5koPkz bjogbGVmdDsgdmVydGljYW ykODmmU487TIIpsWpfAlDK Wnc6L8OlGtn5RGOcmZftOX 0ncGFkZGlu Sy3ooWfasSejFC3yTWQsnk pgw258UbFgk0owLAExsRQo KBkgFUH6O81cf7H0EQVwBK XrDVQ4cZU7 cK3dcOfirevxkKMbpEscso FtuGjnOTjcSMdfP618CCHt vUbqFz5VZzq8W7XlWnm6VZ TrpPgvEN8n eUXpIFdeNl0nhUloqJxvYE 3fCMNjmvcpj704JqBii4lk IXAovSObMHpsOFB8K19nb4 S7VRBvFAGg PGZ3kVZ1tW4rwMokwxultF VmdDsgdmVydGljYWwtYWxp D074SODuqJmkPqObjKMbZp wvdGQ+PC90 dv45A8WqUashHvd0MVLkYZ Q4oFB9bH6xJWTyDUwgw7Q8 sZK4X9PwvjGobu2rv6qpMW VeQIzkW85d bGF (more content not included)... [facility] Progress Note - Nurseon 12-24 Progress Note - Nurse PAT review done per Dr. Odonnell, no orders received. [Electronically Signed on: 01/02/2022 15:09 EDT] Yana Samson RN [Verified on: 01/02/2022 15:09 EDT] Yana Samson RN [facility] .Auto Diff 112-30-2021 Auto [place] % 7 % Normal -12 [facility] Comment on above: Performed By: #### 1 [id number], [id number], [id number] ####[facility] (DEFAULT)[address] [place] [address] Baso Abs# 0.0 x10 Normal 0.0-0.2 [facility] Comment on above: Performed By: #### 1 [id number], [id number], [id number] ####[facility] (DEFAULT)[address] [place] [address] Basophils/100 WBC (Bld) 0.3 % Normal 0.2-2.0 [facility] Comment on above: Performed By: #### 1 [id number], [id number], [id number] ####[facility] (DEFAULT)[address] [place] [address] Eos Abs# 0.1 x10 Normal 0.0-0.4 [facility] Comment on above: Performed By: #### 1 [id number], [id number], [id number] ####[facility] (DEFAULT)[address] [place] [address] Eosinophils/100 WBC (Bld) 0.6 % Low 0.9-4.0 [facility] Comment on above: Performed By: #### 1 [id number], [id number], [id number] ####[facility] (DEFAULT)[address] [place] [address]42 Lymph Abs# 3.5 x10 High 1.3-2.9 [facility] Comment on above: Performed By: #### 1 [id number], [id number], [id number] ####[facility] (DEFAULT)[address] [place] [address]1628 Lymphocytes/100 WBC (Bld) 36 % Normal 14-48 [facility] Comment on above: Performed By: #### 1 [id number], [id number], [id number] ####[facility] (DEFAULT)[address] [place] [address] [place] Abs# 0.7 x10 Normal 0.0-0.8 [facility] Comment on above: Performed By: #### 1 [id number], [id number], [id number] ####[facility] (DEFAULT)[address] [place] [address] 63157 Neut Abs# 5.6 x10 Normal 1.5-9.2 [facility] Comment on above: Performed By: #### 1 [id number], [id number], [id number] ####[facility] (DEFAULT)[address] [place] [address] 83165 Neutrophils/100 WBC (Bld) 56 % Normal 44-88 [facility] Comment on above: Performed By: #### 1 [id number], [id number], [id number] ####[facility] (DEFAULT)[address] [place] [address] Standardon 12-30-2021 eGFR Non AA >60 Invalid Interpretation Code [facility] Comment on above: Performed By: #### 1 [id number], [id number], [id number] ####[facility] (DEFAULT)[address] [place] [address] eGFR AA >60 Invalid Interpretation Code [facility] Comment on above: Result Comment: Superintendent Drivers abigail Kidney disease could be indicated at eGFRs of less than 60 ml/min/1.73m2. Kidney Failure is indicated at less than 15 ml/min/1.73m2 Performed By: #### 1 [id number], [id number], [id number] ####[facility] (DEFAULT)[address] [place] [address] 25165 Anion gap [Moles/Vol] 15.0 mmol/L Normal 5.0-19.0 [facility] Comment on above: Performed By: #### 1 [id number], [id number], [id number] ####[facility] (DEFAULT)[address] [place] [address] 84545 Calcium [Mass/Vol] 9.2 mg/dL Normal 8.9-10.3 [facility] Comment on above: Performed By: #### 1 [id number], [id number], [id number] ####[facility] (DEFAULT)[address] [place] [address] 64143 Chloride [Moles/Vol] 104 mmol/L Normal 101-111 [facility] Comment on above: Performed By: #### 1 [id number], [id number], [id number] ####[facility] (DEFAULT)[address] [place] [address] 87287 CO2 [Moles/Vol] 23 mmol/L Normal 21-32 [facility] Comment on above: Performed By: #### 1 [id number], [id number], [id number] ####[facility] (DEFAULT)[address] [place] [address] 33765 Creatinine [Mass/Vol] 0.51 mg/dL Low 0.60-1.30 [facility] Comment on above: Performed By: #### 1 [id number], [id number], [id number] ####[facility] (DEFAULT)[address] [place] [address] 83588 Glucose [Mass/Vol] 103.0 mg/dL Normal 74.0-118.0 [facility] Comment on above: Performed By: #### 1 [id number], [id number], [id number] ####[facility] (DEFAULT)[address] [place] [address] 70088 Osmolality 273 mOsm/L Invalid Interpretation Code [facility] Comment on above: Performed By: #### 1 [id number], [id number], [id number] ####[facility] (DEFAULT)[address] [place] [address] 40429 Potassium [Moles/Vol] 4.6 mmol/L Normal 3.6-5.1 [facility] Comment on above: Performed By: #### 1 [id number], [id number], [id number] ####[facility] (DEFAULT)[address] [place] [address] 74196 Sodium [Moles/Vol] 137.0 mmol/L Normal 136.0-144.0 [facility] Comment on above: Performed By: #### 1 [id number], [id number], [id number] ####[facility] (DEFAULT)[address] [place] [address] 97229 Urea nitrogen [Mass/Vol] 10 mg/dL Normal 8-26 [facility] Comment on above: Performed By: #### 1 [id number], [id number], [id number] ####[facility] (DEFAULT)[address] [place] [address] Urea nitrogen/Creatinine [Mass ratio] 20.0 mg/mg High 4.6-16.2 [facility] Comment on above: Performed By: #### 1 [id number], [id number], [id number] ####[facility] (DEFAULT)[address] [place] [address] CBC w/ Auto Diffon 2 Erythrocyte distribution width (RBC) [Ratio] 14.6 % Normal 11.5-15.0 [facility] Comment on above: Performed By: #### 1 [id number], [id number], [id number] ####[facility] (DEFAULT)[address] [place] [address] 92664 Hematocrit (Bld) [Volume fraction] 49.5 % High 33.7-40.4 [facility] Comment on above: Performed By: #### 1 [id number], [id number], [id number] ####[facility] (DEFAULT)[address] [place] [address] 59927 Hemoglobin (Bld) [Mass/Vol] 16.8 g/dL High 11.3-15.9 [facility] Comment on above: Performed By: #### 1 [id number], [id number], [id number] ####[facility] (DEFAULT)[address] [place] [address] Instr WBC 9.9 x10 Invalid Interpretation Code [facility] Comment on above: Performed By: #### 1 [id number], [id number], [id number] ####[facility] (DEFAULT)[address] [place] [address] 87776 Man Diff? Auto Normal [facility] Comment on above: Performed By: #### 1 [id number], [id number], [id number] ####[facility] (DEFAULT)[address] [place] [address] 13406 MCH (RBC) [Entitic mass] 32 pg Normal 24-34 [facility] Comment on above: Performed By: #### 1 [id number], [id number], [id number] ####[facility] (DEFAULT)[address] [place] [address] 40108 MCHC (RBC) [Mass/Vol] 34 g/dL Normal 26-37 [facility] Comment on above: Performed By: #### 1 [id number], 7887329, [id number] ####[facility] (DEFAULT)[address] [place] [address] 41160 MCV (RBC) [Entitic vol] 95 fL Normal 81-100 [facility] Comment on above: Performed By: #### 1 [id number], [id number], [id number] ####[facility] (DEFAULT)[address] [place] [address] 00014 Platelet 138 x10 Normal 138-427 [facility] Comment on above: Performed By: #### 1 [id number], [id number], [id number] ####[facility] (DEFAULT)[address] [place] [address] 30641 Platelet mean volume (Bld) [Entitic vol] 11.5 fL High 6.3-10.2 [facility] Comment on above: Performed By: #### 1 [id number], [id number], [id number] ####[facility] (DEFAULT)[address] [place] [address] 71545 RBC 5.20 x10 Normal 3.70-5.30 [facility] Comment on above: Performed By: #### 1 [id number], 8483103, [id number] ####[facility] (DEFAULT)[address] [place] [address] WBC 9.9 x10 Normal 3.5-10.5 [facility] Comment on above: Performed By: #### 1 [id number], [id number], [id number] ####[facility] (DEFAULT)[address] [place] [address] US ARTERY LEG BILon 11-26-19 US ARTERY LEG PAZ EXAMINATION: US ANNY RY LEG PAZ HISTORY: Pain at rest of right lower limb co-occurrent and due to atherosclerosis COMPARISON: No relevant comparison available. TECHNIQUE: Color duplex Doppler ultrasound evaluation analysis was performed in the usual manner. FINDINGS: RIGHT LOWER EXTREMITY ARTERIAL Moderate diffuse atherosclerotic plaque . Triphasic and biphasic waveforms with no spectral broadening. No delayed systolic upstroke. External Iliac PSV: 158.5 cm/s External Iliac EDV: 8.6 cm/s Common Femoral PSV: 120.0 cm/s Common Femoral EDV: 10.0 cm/s Superficial Femoral Proximal PSV: 121.0 cm/s Proximal EDV: 8.2 cm/s Mid PSV: 111.3 cm/s Mid EDV: 11.5 cm/s Distal PSV: 167.0 cm/s Distal EDV: 11.8 cm/s Popliteal Proximal PSV: 96.8 cm/s Popliteal Proximal EDV: 6.6 cm/s Posterior Tibial Proximal PSV: 42.6 cm/s Proximal EDV: 3.6 cm/s Mid PSV: 58.4 cm/s Mid EDV: 3.6 cm/s Distal PSV: 43.5 cm/s Distal EDV: 3.6 cm/s Anterior Tibial Proximal PSV: 52.2 cm/s Proximal EDV: 3.6 cm/s Mid PSV: 45.5 cm/s Mid EDV: 5.9 cm/s Distal PSV: 54.3 cm/s Distal EDV: 5.9 cm/s LEFT LOWER EXTREMITY ARTERIAL Moderate diffuse atherosclerotic plaque. Biphasic waveforms External Iliac PSV: External Iliac EDV: Common Femoral PSV: 116.0 cm/s Common Femoral EDV: 6.1 cm/s Superficial Femoral Proximal PSV: 135.7 cm/s Proximal EDV: 10.0 cm/s Mid PSV: 143.8 cm/s Mid EDV: 14.2 cm/s Distal PSV: 67.7 cm/s Distal EDV: 9.9 cm/s Popliteal Proximal PSV: Popliteal Proximal EDV: Posterior Tibial Proximal PSV: 31.3 cm/s Proximal EDV: 4.4 cm/s Mid PSV: 55.7 cm/s Mid EDV: 5.3 cm/s Distal PSV: 41.8 cm/s Distal EDV: Anterior Tibial Proximal PSV: 35.5 cm/s Proximal EDV: 3.6 cm/s Mid PSV: 41.2 cm/s Mid EDV: 4.3 cm/s Distal PSV: 36.9 cm/s Distal EDV: 3.6 cm/s IMPRESSION: Bilateral biphasic waveform suggesting mild to moderate ischemia Moderate bilateral diffuse atherosclerotic plaque Electronically authenticated by: CHARY AWAD Date: 2021-11-25 17:16 Normal [facility] Complete Blood Count with Au to Diffon 07-14-2021 Basophils (Bld) [#/Vol] 0.05 10*3/uL Normal 0.00-0.20 [facility] Comment on above: Performed By: #### F E Prof, TSH, CBCAD, FERR #### [facility] [address] [place], [place] [id number] Basophils/100 WBC (Bld) 0.6 % Normal [facility] Comment on above: Performed By: #### F E Prof, TSH, CBCAD, FERR #### [facility] [address] [place], [place] [id number] Eosinophils (Bld) [#/Vol] 0.04 10*3/uL Normal 0.02-0.50 [facility] Comment on above: Performed By: #### F E Prof, TSH, CBCAD, FERR #### [facility] [address] [place], [place] [id number] Eosinophils/100 WBC (Bld) 0.5 % Normal [facility] [employer] Comment on above: Performed By: #### F E Prof, TSH, CBCAD, FERR #### [facility] [address] [place], [place] [id number] Erythrocyte distribution width (RBC) [Ratio] 14.4 % Normal 11.0-15.0 [facility] [employer] Comment on above: Performed By: #### F E Prof, TSH, CBCAD, FERR #### [facility] [address] [place], [place] [id number] Hematocrit (Bld) [Volume fraction] 49.0 % High 35.0-47.0 [facility] [employer] Comment on above: Performed By: #### F E Prof, TSH, CBCAD, FERR #### [facility] [address] [place], [place] [id number] Hemoglobin (Bld) [Mass/Vol] 16.8 g/dL High 11.6-15.5 [facility] [employer] Comment on above: Performed By: #### F E Prof, TSH, CBCAD, FERR #### [facility] [address] [place], [place] [id number] Lymphocytes (Bld) [#/Vol] 2.9 10*3/uL Normal 0.9-3.9 [facility] [employer] Comment on above: Performed By: #### F E Prof, TSH, CBCAD, FERR #### [facility] [address] [place], [place] [id number] Lymphocytes/100 WBC (Bld) 35.7 % Normal [facility] [employer] Comment on above: Performed By: #### F E Prof, TSH, CBCAD, FERR #### [facility] [address] [place], [place] [id number] MCH (RBC) [Entitic mass] 32.2 pg Normal 27.0-33.0 [facility] [employer] Comment on above: Performed By: #### F E Prof, TSH, CBCAD, FERR #### [facility] [address] [place], [place] [id number] MCHC (RBC) [Mass/Vol] 34.3 g/dL Normal 32.0-36.0 [facility] [employer] Comment on above: Performed By: #### F E Prof, TSH, CBCAD, FERR #### [facility] [address] [place], [place] [id number] MCV (RBC) [Entitic vol] 94 fL Normal 80-100 [place] [employer] Comment on above: Performed By: #### F E Prof, TSH, CBCAD, FERR #### [facility] [address] [place], [place] [id number] Monocytes (Bld) [#/Vol] 0.5 10*3/uL Normal 0.2-0.9 [facility] Comment on above: Performed By: #### F E Prof, TSH, CBCAD, FERR #### [facility] [address], [place] [id number] Monocytes/100 WBC (Bld) 5.9 % Normal [facility] Comment on above: Performed By: #### F E Prof, TSH, CBCAD, FERR #### [facility] [address], [place] [id number] Neutrophils (Bld) [#/Vol] 4.6 10*3/uL Normal 1.5-7.8 [facility] Comment on above: Performed By: #### F E Prof, TSH, CBCAD, FERR #### [facility] [address], [place] [id number] Neutrophils/100 WBC (Bld) 56.8 % Normal [facility] Comment on above: Performed By: #### F E Prof, TSH, CBCAD, FERR #### [facility] [address], [place] [id number] Platelet mean volume (Bld) [Entitic vol] 12.10 fL Normal 7.50-12.50 [facility] Comment on above: Performed By: #### F E Prof, TSH, CBCAD, FERR #### [facility] [address], [place] [id number] Platelets (Bld) [#/Vol] 166 10*3/uL Normal 140-400 [facility] Comment on above: Performed By: #### F E Prof, TSH, CBCAD, FERR #### [facility] [address], [place] [id number] RBC (Bld) [#/Vol] 5.22 10*6/uL High 3.90-5.20 [facility] Comment on above: Performed By: #### F E Prof, TSH, CBCAD, FERR #### [facility] [address] [place], [place] [id number] RDW-SD 49.0 fL Normal 37.0-50.0 [facility] Comment on above: Performed By: #### F E Prof, TSH, CBCAD, FERR #### [facility] [address], [place] [id number] WBC (Bld) [#/Vol] 8.1 10*3/uL Normal 3.8-11.0 [facility] Comment on above: Performed By: #### F E Prof, TSH, CBCAD, FERR #### [facility] [address], [place] [id number] Ferritinon 07-14-2021 FERR 36.8 ng/mL Normal 15.0-150.0 [facility] Comment on above: Performed By: #### F E Prof, TSH, CBCAD, FERR #### [facility] [address], [place] [id number] Iron Profileon 07-14-2021 %FESAT 21 % Normal 11-50 [facility] Comment on above: Performed By: #### F E Prof, TSH, CBCAD, FERR #### [facility] [address], [place] [id number] FE 67 ug/dL Normal 40-190 [facility] Comment on above: Result Comment: Refe rence range change 02/09/2017. Prior reference range F 37-145 ug/dL, M 59-158 ug/dL. Performed By: #### F E Prof, TSH, CBCAD, FERR #### [facility] [address], [place] [id number] TIBC 316 ug/dL Normal 250-450 [facility] Comment on above: Performed By: #### F E Prof, TSH, CBCAD, FERR #### [facility] [address], [place] [id number] UIBC 249 ug/dL Normal 112-347 [facility] Comment on above: Performed By: #### F E Prof, TSH, CBCAD, FERR #### [facility] [address], [place] [id number] TSHon 07-14-2021 TSH 1.430 uIU/mL Normal 0.400-4.500 [facility] Comment on above: Performed By: #### F E Prof, TSH, CBCAD, FERR #### [facility] [address], [place] [id number] Vitamin B12on 07-14-2021 Cobalamin (Vitamin B12) [Mass/Vol] 216 pg/mL Normal 211-946 [facility] Comment on above: Performed By: #### B 12 #### [facility] [address], [place] [id number] Comprehensive Metabolic Pane gaurav 02-28-2021 Albumin [Mass/Vol] 4.4 g/dL Normal 3.6-5.1 [facility] Comment on above: Performed By: #### L IPD, CMP #### [facility] [address], [place] [id number] Albumin/Globulin [Mass ratio] 1.7 {ratio} Normal 1.0-2.5 [facility] Comment on above: Performed By: #### L IPD, CMP #### [facility] [address], [place] [id number] ALP [Catalytic activity/Vol] 159 U/L High 35-119 [facility] Comment on above: Performed By: #### L IPD, CMP #### [facility] [address], [place] [id number] ALT [Catalytic activity/Vol] 6 U/L Normal 6-33 [facility] Comment on above: Result Comment: 02/23 Female reference range changed. Performed By: #### L IPD, CMP #### [facility] [address], [place] [id number] Anion gap [Moles/Vol] 19 mmol/L Normal 12-20 [facility] Comment on above: Result Comment: Effe ctive 03/31/2019 reference range changed. Performed By: #### L IPD, CMP #### [facility] [address], [place] [id number] AST [Catalytic activity/Vol] 13 U/L Normal 9-34 [facility] Comment on above: Performed By: #### L IPD, CMP #### [facility] [address], [place] [id number] BUN/CREA 21 Ratio Normal 6-22 [facility] Comment on above: Performed By: #### L IPD, CMP #### [facility] [address], [place] [id number] Calcium [Mass/Vol] 9.7 mg/dL Normal 8.6-10.2 Irene brandon [place] [employer] Comment on above: Performed By: #### L IPD, CMP #### [facility] [address], [place] [id number] Chloride [Moles/Vol] 103 mmol/L Normal 98-107 [facility] Comment on above: Performed By: #### L IPD, CMP #### [facility] [address], [place] [id number] CO2 [Moles/Vol] 22 mmol/L Normal 20-31 [facility] Comment on above: Performed By: #### L IPD, CMP #### [facility] [address], [place] [id number] Creatinine [Mass/Vol] 0.6 mg/dL Normal 0.6-1.4 [facility] Comment on above: Performed By: #### L IPD, CMP #### [facility] [address], [place] [id number] eGFRAA 113 mL/min/1.73m2 Normal >60 [facility] Comment on above: Performed By: #### L IPD, CMP #### [facility] [address], [place] [id number] eGFRNAA 93 mL/min/1.73m2 Normal >60 [facility] Comment on above: Performed By: #### L IPD, CMP #### [facility] [address], [place] [id number] Globulin (S) [Mass/Vol] 2.6 g/dL Normal 1.9-3.7 [facility] [employer] Comment on above: Performed By: #### L IPD, CMP #### [facility] [address], [place] [id number] Glucose [Mass/Vol] 102 mg/dL High 65-99 Irene brandon [place] [employer] Comment on above: Result Comment: For FASTING Glucose --- ADA reference ranges: Normal 65-99 mg/dl Prediabetes 100-125 Diabetes >/= 126 Performed By: #### L IPD, CMP #### [facility] Laboratory [address], [place] [id number] Potassium [Moles/Vol] 4.2 mmol/L Normal 3.5-5.5 [facility] [employer] Comment on above: Performed By: #### L IPD, CMP #### [facility] [address], [place] [id number] Protein [Mass/Vol] 7.0 g/dL Normal 6.1-8.1 [facility] rn [place] [employer] Operator Comment on above: Performed By: #### L IPD, CMP #### [facility] [address], [place] [id number] Sodium [Moles/Vol] 140 mmol/L Normal 135-146 [facility] [place] [employer] Operator Comment on above: Performed By: #### L IPD, CMP #### [facility] [address], [place] [id number] TBIL <0.3 Normal [facility] [employer] Operator Comment on above: Performed By: #### L IPD, CMP #### [facility] [address], [place] [id number] Urea nitrogen [Mass/Vol] 13 mg/dL Normal 7-25 [facility] [employer] Operator Comment on above: Performed By: #### L IPD, CMP #### [facility] [address], [place] [id number] Lipid Panelon 02-28-2021 Cholesterol [Mass/Vol] 166 mg/dL Normal 125-200 [facility] [employer] Operator Comment on above: Result Comment: Low risk < 200mg/dL Borderline risk 201-239 mg/dl High risk > or equal to 240 Performed By: #### L IPD, CMP #### [facility] [address], [place] [id number] Cholesterol in HDL [Mass/Vol] 54 mg/dL Normal >40 [facility] [employer] Operator Comment on above: Result Comment: High Cardiovascular Risk HDL <40 mg/dL Low Cardiovascular Risk HDL > or equal to 60 mg/dl Performed By: #### L IPD, CMP #### [facility] [address], [place] [id number] Cholesterol in LDL [Mass/Vol] 87 mg/dL Normal [facility] [employer] Operator Comment on above: Result Comment: LDL ATP III CLASSIFICATION LDL less than 100 mg/dl Optimal LDL 100-129 mg/dl Near or above optimal LDL 130-159 Borderline high LDL 160-189 High LDL greater than 189 mg/dl Very High Performed By: #### L IPD, CMP #### [facility] [address], [place] [id number] Cholesterol in VLDL [Mass/Vol] 25 mg/dL Normal [facility] [employer] Operator Comment on above: Performed By: #### L IPD, CMP #### [facility] [address], [place] [id number] Cholesterol.total/C holesterol in HDL [Mass ratio] 3 {ratio} Normal [facility] Comment on above: Performed By: #### L IPD, CMP #### [facility] [address], [place] [id number] Triglyceride [Mass/Vol] 126 mg/dL Normal 30-150 [facility] [employer] Operator Comment on above: Result Comment: TRIG ATPIII CLASSIFICATIONS TRIG less than 150 mg/dl Normal TRIG 150-199 mg/dl Borderline High TRIG 200-500 mg/dl High TRIG greather than 500 mg/dl Very High Performed By: #### L IPD, CMP #### [facility] [address], [place] [id number] Encounters Encounter Date Encounter Type Care Provider Facility Start: 04-05-2023 End: 04-05-2023 Subsequent hospital visit by physician Chandu Love 1 [facility] PRE-ADMIT TEST[facility] Comment on above: Canceled (Case avani llhillary) Start: 04-04-2023 [facility]: 04-04-[facility] Start: 04-03-2023 End: 04-05-2023 Evaluation and management of inpatient ALE [facility] Start: 03-27-2023 End: 03-27-2023 Subsequent hospital visit by physician Chandu Love 2 [facility] PRE-ADMIT TESTING Comment on above: Canceled (Patient) Start: 03-15-2023 End: 03-15-2023 ambulatory VILLA NICOLAS Not Available Start: 02-02-2023 End: 02-07-2023 ambulatory CHRISTIAN WEBSTER [facility] Start: 10-31-2022 End: 10-31-2022 ambulatory ROSANA [facility] Start: 10-31-2022 End: 10-31-2022 Encounter for preprocedural cardiovascular examination [facility] Start: 10-26-2022 End: 10-31-2022 ambulatory VILLA NICOLAS [facility] Start: 06-27-2022 End: 06-28-2022 ambulatory YASMEEN WINTERS Facility:[facility] Start: 01-20-2022 End: 01-21-2022 [facility] Start: 01-16-2022 End: 01-17-2022 [facility] Start: 01-09-2022 End: 01-09-2022 ambulatory VILLA NICOLAS Facility:[facility] Start: 01-04-2022 End: 01-05-2022 ambulatory Ambrose Castellanos Sawyer Facility:[facility] Start: 12-30-2021 End: 12-31-2021 ambulatory VILLA NICOLAS Facility:[facility] Start: 11-25-2021 End: 11-26-[address] VILLA NICOLAS Facility: Start: 10-02-2016 End: 10-03-2016 Ambulatory DEFAULT PHYSICIAN Facility:[facility] Plan of Treatment Date Care Activity Detail Author Start: 05-16-2023 End: 05-16-2023 Patient encounter procedure 05/16/2023 10:30 AM EST Office Visit [facility] Neurosurgery [address], [address] [place] [address] Christian Webster MD [address] [place] [address] 4 week 1st post op-Redo L3-4 Lami [facility] Neurosurgery Comment on above: 4 week 1st post op-R jenni L3-4 Lami Start: 04-20-2023 End: 04-20-2023 Admission to same day surgery center 04/20/2023 10:00 AM EST - 04/20/2023 11:55 AM EST Surgery [facility] [address] [place] [id number] Christian Webster MD [address] [place] [address] REDO L3-4 LUMBAR LAMINECTOMY POSTERIOR [facility] OR Comment on above: REDO L3-4 LUMBAR KNOTT INECTOMY POSTERIOR Start: 04-20-2023 End: 04-20-2023 Knott facetectomy & foramotomy 1 segment lumbar LUMBAR LAMINECTOMY POSTERIOR Spinal stenosis of lumbar region, unspecified whether neurogenic claudication present 04/20/2023 10:00 AM [facility] Start: 04-20-2023 Subsequent hospital visit by physician 04/20/2023 10:00 AM EST Hospital Encounter [facility] [address] [place] [id number] Christian Webster MD [address] [place] [address] [facility] OR Start: 04-05-2023 Subsequent hospital visit by physician 04/05/2023 1:00 PM [facility] Hospital Encounter [facility] PRE-ADMIT TESTING [address] [place] [id number] [facility] Start: 02-19-2023 Annual Wellness Visi t (Medicare) Annual Wellness Visit (Medicare) [facility] Start: 01-26-2023 Hemoglobin A1c measurement A1C test (Diabetic or Prediabetic) [facility] Start: 11-24-2022 COVID-19 Vaccine ( season) COVID-19 Vaccine ( season) [facility] Start: 10-24-2022 Influenza vaccination Flu vaccine (# 1) [facility] Start: 01-14-2020 Shingles vaccine (2 of 2) Shingles vaccine (2 of 2) [facility] Start: 08-30-2018 Pneumococcal 65+ yea rs Vaccine (3 - PPSV23 or PCV20) Pneumococcal 65+ years Vaccine (3 - PPSV23 or PCV20) [facility] Start: 2010 Respiratory Syncytia l Virus (RSV) or age 60 yrs+ (1 - 1-dose 60+ series) Respiratory Syncytial Virus (RSV) or age 60 yrs+ (1 - 1-dose 60+ series) [facility] Start: 2000 Screening for malign ant neoplasm of breast Breast cancer screen [facility] Start: 12-09-1995 Screening for malign ant neoplasm of colon [facility] Start: 1969 DTaP/Tdap/Td vaccine (1 - Tdap) DTaP/Tdap/Td vaccine (1 - Tdap) [facility] Start: 1968 Hepatitis C screening Hepatitis C sc reen [facility] Start: 1962 Depression Screen Depression Screen [facility] Start: 1960 Lipid panel Lipids [facility] Payers Date Payer Category Payer Medicaid [id number] 1959 Medicare [id number] 1959 Medicare [id number] 1959 Self-pay [id number] 1950 Unknown [id number] .16.84 [id number] 1950 Unknown [id number] .16.84 [id number] 1950 Unknown [id number] 2.16.84 [id number] 1950 Unknown [id number] 2.16.84 [id number] 1950 Unknown [id number] 2.16.84 [id number] 1950 Unknown [id number] 2.16.84 [id number] 1950 Unknown [id number] 2.16.84 [id number] 1950 Unknown [id number] 2.16.84 [id number] 1950 Unknown [id number] 2.16.8 [id number] 1950 Unknown [id number] 2.16. [id number] 1950 Unknown [id number] 2.16.840 .[id number] Unknown Social History Date Type Detail Facility Start: 10-26-2022 [facility] History of tobacco use Cigarette Smoker B [facility] Start: 10-26-2022 End: 02-02-2023 Cigarettes smoked current (pack per day) - Reported 0.5 [facility] Start: 10-26-2022 Tobacco use and exposure Smoke less tobacco non-user [facility] Start: 02-02-2023 Alcohol intake [facility] (finding) [facility] Start: 02-02-2023 [facility] Start: 10-26-2022 Tobacco Comment Started smokin g at age 16, quit at the age of 30 then started smoking again a little over a year ago (written 10/26/2022) [facility] [employer] Start: 1950 Sex Assigned At Not on file B ON [facility] Clinical Notes 01-09-2022 to 04-05-2023 Note Date & Type Note Facility 04-05-2023 Note Patient just had vis itors arrive to see her. Cancelled transport request. Provided a list of local food pantries. [place] 04-05-2023 Note 04/05/23 1452 Admission Assessment Questions Verify insurance with patient Yes (Medicare/[place] Medicaid) Do you understand medical disease or what brought you into the hospital? Yes ( I was sent here from [facility] because they thought I had a heart attack ) Who is your current PCP? Villa Nicolas MD Can I schedule a follow up appointment for you at the time of discharge? Yes Do you understand why you are taking your current medications? Yes Are you taking your medications as prescribed? Yes Did patient provide teach back? No Would you like use our pharmacy [facility] to fill your new medications at the time of Discharge? Yes Does the patient have a case management assistant assigned to them through their insurance? Yes Living Arrangement (Current/Prior to Hospitalization) Private residence;Home self care (to start [facility] per new referral from [facility], Lives with , has no adult kids, Has help from Step-Son for shank turner & Friend Christiana assists with ADL's) Does the patient have history of HHC or SNF? Yes (went to SNF in [place] about 2 yrs ago, no previous Rehab or HHC use) Assistive Device Walker;Wheelchair;Raised toilet seat (has shower chair, previously used Home O2 about 10-15 yrs ago) Patient's goal for discharge Home with [facility], new referral was sent per [facility] prior to admission Was patient reminded that goal for discharge is 11am? Yes Does the patient have transportation at discharge? No (Uses [employer] or [employer] for transportation; [facility] has no availability & too late to request ride through [employer]) Type of Residence/Post Acute Needs Private residence;Home care staff ([facility]) Is PT/OT appropriate? Yes Is PT/OT ordered? Yes Is SW consult appropriate? Yes Is SW consult ordered? Yes Do you understand the benefits of MyChart? No Were you able to send link and activate MyChart? No (patient declined as she does not know how computer works) Screen completed. Medically ready for discharge. Dc Plan: Home, start [facility] per referral that was originally sent per [facility]. Working on transportation issue home to [place]. Possible taxi ride Home pending [employer]TM Assurance Senior approval. [facility] Bedside RN would need to assist patient into taxi & patient's would need to be informed of approximate arrival time Home so that he can go outside to taxi w/ Walker or WC to assist patient into the Home. [place] 04-05-2023 Note 2:57pm Sent the AVS to [facility]. 2:34pm Called [employer] per her request. They close at 4pm. Patient does not have any one that can come and get her. 2:21pm Met with the patient. She lives with her and plans on returning. She stated she will need help returning home and that she uses [employer]. Spoke with [employer]. They close at 4pm and are fully booked. She is active with [employer]. Will send updates. [place] 04-05-2023 Note Physical Therapy Physical Therapy Evaluation Patient Name: Mirna Quezada : 1950 Today's Date: 04/05/2023 General Family/Caregiver Present: No Subjective: 72 y.o. female direct admit from OSH d/t elevated troponin and acute on chronic CHF. To OSH c/o sore throat, URI symptoms x5 days. Labs showed extremely elevated WBC; CXR showed mult-focal PNA. Pt seated in recliner upon arrival, agreeable to PT. Pt amb to bathroom, sat to toilet, then amb back to bed. Supine in bed at end of session with call light given. 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 Carotid stenosis, bilateral Carpal tunnel syndrome, left Cervical myelopathy (CMS/HCC) Congenital spondylolisthesis Cigarette smoker Cigarette smoker two packs a day or less Chronic systolic heart failure (CMS/HCC) Coronary artery disease Coronary atherosclerosis Critical ischemia of lower extremity (CMS/HCC) Decreased estrogen level 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 Diabetes mellitus (CMS/HCC) Diabetic mononeuropathy (CMS/HCC) Difficulty walking Fibromyalgia Esophageal reflux HTN (hypertension) History of heart attack Hearing loss of right ear H/O Parkinson's disease General weakness HLD (hyperlipidemia) Ataxia Lack of coordination Migraine with aura Mixed anxiety depressive disorder Muscle weakness 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, unilateral, right ear with restricted hearing on the contralateral side Neurogenic claudication Nonrheumatic aortic valve stenosis PAD (peripheral artery disease) (CMS/HCC) Polyneuropathy due to type 2 diabetes mellitus (CMS/HCC) Polyneuropathy Persistent insomnia Parkinson's disease Palpitations Preoperative evaluation to rule out surgical contraindication Primary cardiomyopathy (CMS/HCC) Seasonal allergic rhinitis Tinnitus Status post coronary artery bypass graft Spinal stenosis of lumbar region Solitary pulmonary nodule Primary osteoarthritis Osteoarthrosis Tobacco user Type 2 diabetes mellitus without complication (CMS/HCC) Undifferentiated inflammatory polyarthritis (CMS/HCC) Acute on chronic diastolic CHF (congestive heart failure) (CMS/HCC) Elevated troponin Acute hypoxic respiratory failure (CMS/HCC) Multifocal pneumonia Past Medical History: Diagnosis Date Coronary artery disease Diabetes mellitus (CMS/HCC) GERD (gastroesophageal reflux disease) Heart valve disease Hyperlipidemia Primary cardiomyopathy (CMS/HCC) Past Surgical History: Procedure Laterality Date BACK SURGERY BOWEL RESECTION CARDIAC CATHETERIZATION CARPAL TUNNEL RELEASE CERVICAL SPINE SURGERY SECTION, CLASSIC CHOLECYSTECTOMY CORONARY ARTERY BYPASS GRAFT Precautions Precautions Medical Precautions: IV, telemetry Pain Pain Assessment Pain Assessment: 0-10 Pain Score: 6 Pain Type: Chronic pain Pain Location: Back Pain Orientation: Lower Pain Radiating Towards: LEs Pain Interventions: Repositioned Cognition Cognition Arousal/Alertness: Appropriate responses to stimuli Following Commands: Follows all commands and directions without difficulty Deficits: Fully aware of deficits Attention Span: Appears intact Communication: Intact General Assessment General Assessment Hearing: WFL Skin Integrity: Areas visualized- intact. Tone: Tremors (H/o Parkinson's) Home Living Home Living Type of Home: Mobile home Lives With: Spouse Home Adaptive Equipment: Walker rolling, Wheelchair-power, Wheelchair-manual Home Living Comments: Home health aide 4x/wk Home Layout: One level Home Access: Ramped entrance Bathroom Shower/Tub: Tub/shower unit Bathroom Toilet: Standard Bathroom Equipment: Shower chair with back, Bedside commode, Hand-held shower Prior Level of Function Prior Function Level of [place]: Needs assistance with ADLs, Needs assistance with homemaking Prior Functional Mobility: Independent with rolling walker Receives Help From: (Home health aide 4x/wk) ADL Assistance: Needs assistance Homemaking Assistance: Needs assistance Driving: Total (Transportation services) Vision Basic Assessment Vision - Basic Assessment Current Vision: Wears glasses all the time Activity Tolerance Activity Tolerance Endurance: Stage III Stage III (METs 2.0-3.0) - Sitting to Stand[place]-10 mins Activity Tolerance Comments: Pulse ox inn 80's on room air after ambulation with several minutes to recover to 93%. General Assessments Activity Tolerance Endurance: Stage III Stage III ( (more content not included)... [place] 04-05-2023 Note Hospital Medicine Discharge Summary Final Discharge Diagnosis: Acute on chronic diastolic CHF (congestive heart failure) (CMS/HCC) - resolved NSTEMI II in setting of HF exacerbation and acute hypoxemia 2/2 multilobular pneumonia - resolved Admission Diagnosis: Acute on chronic systolic CHF (congestive heart failure) (CMS/HCC) [I50.23] Hospital course: Mirna Quezada is an 72 y.o. female who came from home with pastMedical history of Parkinson's disease, hypertension, DM2, hyperlipidemia, CAD s/p CABG, COPD presents to the [facility] as a direct admission from [facility] with elevated troponin and acute on chronic CHF exacerbation. #Acute on chronic CHF, unspecified NYHA class -BNP at OSH over 3000 -Patient was receiving daily lasix and appears to be currently euvolemic, holding off diuresis -EKG shows sinus bradycardia, Heart rate 50s and asymptomatic -No plan for ischemic work up required per cardiology -For aortic stenosis, audible murmur and asymptomatic; mild per TTE this visit, in past rated as moderate. She is asymptomatic and can be rechecked as outpatient in 6-12 mos. #NSTEMI II, 2/2 hypoxemia in setting of PNA -Suspect type II ischemia related to hypervolemia -EKG is without any changes #Acute hypoxic respiratory failure, resolved #Multifocal pneumonia, resolved -currently on room air -Upon initial arrival to [place] on 03/29/2023, patient was requiring 2 L nasal cannula to maintain oxygen saturation of 92%, patient was eventually weaned back down to room air -Patient was also started on azithromycin and ceftriaxone for which she finished the course #CAD, s/p CABG, continue plavix, aspirin #DM2, continue with home metformin #COPD, not in acute exacerbation #Hypertension, controlled #Hyperlipidemia, continue atorvastatin #Parkinson's disease, continue carbidopa-levodopa Discharged home on 04/05/23. Dear Dr. Fidencio MD, Mirna is advised to follow up with you within 1-2 weeks. Follow-up with: Cardiology and CHF clinic Scheduled appointments: Future Appointments Date Time Provider Department Center 04/19/2023 2:00 PM Shira Wong NP [facility] Your medication list CONTINUE taking these medications Instructions Last Dose Given Next Dose Due aspirin 81 mg EC tablet atorvastatin 20 mg tablet Commonly known as: Lipitor carbidopa-levodopa 25-100 mg tablet Commonly known as: Sinemet citalopram 40 mg tablet Commonly known as: CeleXA clopidogrel 75 mg tablet Commonly known as: Plavix cyanocobalamin 1,000 mcg tablet Commonly known as: Vitamin B-12 HYDROcodone-acetaminophen 10-325 mg tablet Commonly known as: [place] isosorbide mononitrate ER 30 mg 24 hr tablet Commonly known as: Imdur metFORMIN 500 mg tablet Commonly known as: Glucophage pregabalin 200 mg capsule Commonly known as: Lyrica primidone 50 mg tablet Commonly known as: Mysoline rOPINIRole 0.25 mg tablet Commonly known as: Requip tiZANidine 4 mg tablet Commonly known as: Zanaflex Mirna is allergic to augmentin [amoxicillin-pot clavulanate]. [place] [facility] [place] Condition: Stable Code Status: Prior Diagnostic Results Hematology: Results from last 7 days Lab Units 04/05/2352104/04/239 04/03/23210704/03/232106 WBC AUTO 10*3/uL 6.75 -- -- 7.99 HEMOGLOBIN g/dL 14.1 -- -- 14.8 HEMATOCRIT % 41.4 -- -- 44.3 MCV fL 95.0 -- -- 96.3 PLATELETS AUTO 10*3/uL 234 242 -- 254 INR -- -- 1.00 -- Chemistry: Results from last 7 days Lab Units 04/05/2352104/03/232106 SODIUM mmol/L 140 141 POTASSIUM mmol/L 4.3 4.1 CHLORIDE mmol/L 108* 104 CO2 mmol/L 27 27 BUN mg/dL 30* 32* CREATININE mg/dL 0.54* 0.65 GLUCOSE mg/dL 157* 120* MAGNESIUM mg/dL 1.6* 1.2* CALCIUM mg/dL 9.0 9.6 PHOSPHORUS mg/dL -- 3.6 Results from last 7 days Lab Units 04/03/232106 AST U/L 25 ALT U/L 15 ALK PHOS U/L 73 BILIRUBIN TOTAL mg/dL 0.3 Test Results Pending At Discharge: Diet at the time of discharge: regular diet, cardiac diet, and diabetic diet Nutrition Screen Activity: as tolerated Objective Blood pressure (!) 132/117, pulse 62, temperature 36.8 ???C (98.3 ???F), resp. rate 18, height 1.6 m (5' 3 ), weight 61.1 kg (134 lb 9.6 oz), SpO2 93 %. General: Alert and oriented x3. Cardiology: Normal rate, regular rhythm. Lungs: Clear to auscultation, no wheezes, rales or rhonchi, symmetric air entry. Abdomen: Soft, non tender, non distended. Extremities: No pitting edema. Neurology: No focal neuro deficit noted. Total time for discharge - review of data, exam, discussion with providers and care-team, med-rec and orders, arranging follow up, counseling of patient and/or family and documentation was 40 minutes. Signed Deena Stephenson NP [facility] Medicine 04/09/2023 10:49 AM [place] 04-05-2023 Note [facility] CARDIOLOGY INPAT IENT PROGRESS NOTE Reason for follow up: acute heart failure and type II NSTEMI in setting of multilobar pneumonia and acute hypoxemia (resolved) Subjective Awake, alert, in chair, good spirits wants to go home. OOB without SOB, CP , dizziness. No LE edema. She takes pill packs reliably and describes low sodium diet with no excessive oral fluids, and [employer] using no diuretic. Says in past no issues with fluid retenention. Tele: SR ALLERGIES Allergies Allergen Reactions Augmentin [Amoxicillin-Pot Clavulanate] CURRENT MEDS aspirin, 81 mg, oral, Daily atorvastatin, 20 mg, oral, Daily carbidopa-levodopa, 1 tablet, oral, 4x daily And carbidopa-levodopa, 1 half tablet, oral, 4x daily citalopram, 40 mg, oral, q AM clopidogrel, 75 mg, oral, Daily heparin (porcine), 5,000 Units, subcutaneous, BID insulin aspart, 0-20 Units, subcutaneous, TID with meals And insulin aspart, 0-20 Units, subcutaneous, Nightly isosorbide mononitrate ER, 30 mg, oral, Daily pregabalin, 200 mg, oral, TID primidone, 50 mg, oral, 4x daily RT rOPINIRole, 0.25 mg, oral, 4x daily RT tiZANidine, 4 mg, oral, Nightly PRN medications: glucose OR dextrose 50 % in water (D50W), HYDROcodone-acetaminophen, nitroglycerin Objective Patient Vitals for the past 24 hrs: BP Temp Temp src Pulse Resp SpO2 Weight 04/05/23 0800 (!) 127/39 36.8 ???C (98.3 ???F) -- 52 11 93 % -- 04/05/23 0400 165/68 36.1 ???C (97 ???F) Temporal 57 16 94 % -- 04/05/23 0308 -- -- -- -- -- -- 61.1 kg (134 lb 9.6 oz) 04/05/23 0000 120/60 36.1 ???C (97 ???F) Temporal 55 20 95 % -- 04/04/23 2000 (!) 127/37 36.3 ???C (97.3 ???F) Temporal 56 17 95 % -- 04/04/23 1645 103/50 37.1 ???C (98.8 ???F) Temporal 64 14 94 % -- 04/04/23 1150 (!) 113/39 37.1 ???C (98.7 ???F) Temporal 75 16 96 % -- BP (!) 127/39 Pulse 52 Temp 36.8 ???C (98.3 ???F) Resp 11 Ht 1.6 m (5' 3 ) Wt 61.1 kg (134 lb 9.6 oz) SpO2 93% BMI 23.84 kg/m??? Wt Readings from Last 3 Encounters: 04/05/23 61.1 kg (134 lb 9.6 oz) 10/31/22 61.7 kg (136 lb) General: Awake, alert, appropriate mood / affect, NAD Eyes: anicteric sclera. Non-injected conjunctiva. No xanthelasmas Neck: No elevated JVP. No carotid bruit Pulm: Breath sounds clear to ascultation bilaterally with no wheeze, crackles or rhonchi Cards: HRRR , NL S1, S2. No S3 or S4 gallop. Murmur: ELVIA 3/6 at RUSB across precordium not to neck Abd: Soft, Nontender, physiologic bowel sounds are present Extr: Lower extremity edema: none. DP pulses present bilaterally Skin: warm, dry, well perfused Neuro: A&Ox3, No gross deficits, resting tremor noted Lab Results Component Value Date NA 140 04/05/2023 K 4.3 04/05/2023 CL 108 (H) 04/05/2023 ANIONGAP 9 04/05/2023 BUN 30 (H) 04/05/2023 CREATININE 0.54 (L) 04/05/2023 CALCIUM 9.0 04/05/2023 MG 1.6 (L) 04/05/2023 PHOS 3.6 04/03/2023 Lab Results Component Value Date BILITOT 0.3 04/03/2023 ALKPHOS 73 04/03/2023 AST 25 04/03/2023 ALT 15 04/03/2023 PROT 6.7 04/03/2023 ALBUMIN 3.8 04/03/2023 No results found for: CHOLESTEROL , CHOLESTEROL TOTAL , TRIGLYCERIDES , HDL , LDL CHOLESTEROL , LDL DIRECT , LDL CALC Lab Results Component Value Date BNP 138 (H) 04/03/2023 No results found for: THYROID , TSH , FREE T4 No results found for: DIGOXIN LVL No results found for: HGBA1C Lab Results Component Value Date WBC 6.75 04/05/2023 RBC 4.36 04/05/2023 HGB 14.1 04/05/2023 HCT 41.4 04/05/2023 MCV 95.0 04/05/2023 MCH 32.3 04/05/2023 MCHC 34.1 04/05/2023 RDW 13.9 04/05/2023 NEUTOPHILPCT 54.4 04/03/2023 LYMPHOPCT 32.2 04/03/2023 MONOPCT 9.9 04/03/2023 EOSPCT 1.9 04/03/2023 BASOPCT 0.8 04/03/2023 NEUTROABS 4.36 04/03/2023 LYMPHSABS 2.57 04/03/2023 MONOSABS 0.79 04/03/2023 EOSABS 0.15 04/03/2023 BASOSABS 0.06 04/03/2023 PLT 234 04/05/2023 No X-ray results found for the past 24 hours CV Testing: Encounter Date: 04/03/23 ECG 12 lead Result Value Ventricular Rate 57 Atrial Rate 57 IA Interval 162 QRS DURATION 96 QT Interval 446 QTC CALCULATION(BAZETT) 434 P [place] 57 R-[place]og[place] 79 T Wave [place] 11 Impression Sinus bradycardia Otherwise normal ECG When compared with ECG of 03-APR-2023 22:29, (unconfirmed) No significant change was found Confirmed by Ferdinand SCHILLING, ZEYNEP Escobar ([id number]) on 04/04/2023 11:16:26 AM 04/04/23 TTE Left Ventricle: The left ventricle is normal size. Global left ventricular systolic function is normal. The EF is 55 % visually. Left ventricular wall thickness is normal. The septum is abnormal in its motion, not unusal finding in the post open heart patient. Right Ventricle: The right ventricle is mildly enlarged. Normal right ventricular systolic function. Doppler studies suggest normal right sided pressures. Left Atrium: The left atrium is mildly enlarged. Aortic Valve: Focal aortic cusp thickening is noted. Mild aortic valve stenosis. A (more content not included)... [place] 04-05-2023 Note Occupational Therapy Occupational Therapy Evaluation Patient Name: Mirna Quezada : 1950 Today's Date: 04/05/2023 Time In: 929 Time Out: 948 Mirna Quezada is an 72 y.o. female who came from home with pastMedical history of Parkinson's disease, hypertension, DM2, hyperlipidemia, CAD s/p CABG, COPD presents to the [facility] as a direct admission from [facility] with elevated troponin and acute on chronic CHF exacerbation. 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 Carotid stenosis, bilateral Carpal tunnel syndrome, left Cervical myelopathy (CMS/HCC) Congenital spondylolisthesis Cigarette smoker Cigarette smoker two packs a day or less Chronic systolic heart failure (CMS/HCC) Coronary artery disease Coronary atherosclerosis Critical ischemia of lower extremity (CMS/HCC) Decreased estrogen level 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 Diabetes mellitus (CMS/HCC) Diabetic mononeuropathy (CMS/HCC) Difficulty walking Fibromyalgia Esophageal reflux HTN (hypertension) History of heart attack Hearing loss of right ear H/O Parkinson's disease General weakness HLD (hyperlipidemia) Ataxia Lack of coordination Migraine with aura Mixed anxiety depressive disorder Muscle weakness 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, unilateral, right ear with restricted hearing on the contralateral side Neurogenic claudication Nonrheumatic aortic valve stenosis PAD (peripheral artery disease) (CMS/HCC) Polyneuropathy due to type 2 diabetes mellitus (CMS/HCC) Polyneuropathy Persistent insomnia Parkinson's disease Palpitations Preoperative evaluation to rule out surgical contraindication Primary cardiomyopathy (CMS/HCC) Seasonal allergic rhinitis Tinnitus Status post coronary artery bypass graft Spinal stenosis of lumbar region Solitary pulmonary nodule Primary osteoarthritis Osteoarthrosis Tobacco user Type 2 diabetes mellitus without complication (CMS/HCC) Undifferentiated inflammatory polyarthritis (CMS/HCC) Acute on chronic diastolic CHF (congestive heart failure) (CMS/HCC) Elevated troponin Acute hypoxic respiratory failure (CMS/HCC) Multifocal pneumonia Past Medical History: Diagnosis Date Coronary artery disease Diabetes mellitus (CMS/HCC) GERD (gastroesophageal reflux disease) Heart valve disease Hyperlipidemia Primary cardiomyopathy (CMS/HCC) Past Surgical History: Procedure Laterality Date BACK SURGERY BOWEL RESECTION CARDIAC CATHETERIZATION CARPAL TUNNEL RELEASE CERVICAL SPINE SURGERY SECTION, CLASSIC CHOLECYSTECTOMY CORONARY ARTERY BYPASS GRAFT Precautions Precautions Medical Precautions: fall risk Pain Pain Assessment Pain Score: 8 (reports chronic LBP / needs sx soon and pain radiates down both legs /posterior to knees) Cognition Cognition Overall Cognitive Status: Within Functional Limits General Assessment General Assessment Tone: Tremors (STEPHANIE , reports baseline but has not received all her PD meds) Home Living Home Living Type of Home: Mobile home Lives With: Spouse Home Adaptive Equipment: Walker rolling, Wheelchair-power (az, [facility]) Home Layout: One level Home Access: Ramped entrance Bathroom Shower/Tub: Tub/shower unit Prior Level of Function Prior Function Level of [place]: Needs assistance with ADLs, Needs assistance with homemaking (has SUPERVISOR [employer]PA[employer] 4x/w for bath, assist with dressing at times) Prior Functional Mobility: Independent with rolling walker Receives Help From: valet parking attendant (4x/w for bath) ADL Assistance: ( at times for socks) Homemaking Assistance: Needs assistance Prior IADLs IADL History Homemaking Responsibilities: Yes (simple) Dynamic Sitting Balance Dynamic Sitting Balance Dynamic Sitting Balance-Level of Assistance: Close supervision Static Standing Balance Static Standing Balance Static Standing-Level of Assistance: Minimum assistance ADL ADL UE Dressing Assistance: Minimal (due to tremors, likely baseline) LE Dressing Assistance: Moderate (due to technique and fatigue) Transfers Transfers Transfer: (min A :: supine to sit EOB, sit to stand,, standing two minutes, taking a few steps to chair and sitting) Objective General Assessments Activity Tolerance Endurance: Stage II Vision - Basic Assessment Current (more content not included)... [place] 04-04-2023 Note Pt admitted to [facility] for acute on chronic diastolic HF; hx of Parkinson's disease, hypertension, DM2, hyperlipidemia, CAD s/p CABG, COPD. Pt has echo scheduled; previous echo from 11/03/22 estimated LVEF 50%. I will wait for current echo results to determine pt's eligibility to participate in cardiac rehab (CR) therapy with HF diagnosis and follow up with pt , if appropriate. BEENA Cowart dance studio manager Outpatient Coordinator Cardiopulmonary Rehab [place] 04-04-2023 Note Hospital Medicine Daily Progress Note - 04/04/2023 9:15 AM; Room: [address] [place] [address] Admission: 04/03/2023 8:14 PM; Length of stay: 1 days THE HOSPITALIST TEAM PREFERS TO USE [employer] CHAT FOR COMMUNICATION 7AM-7PM. IF I DO NOT RESPOND WITHIN 15 MINUTES, PLEASE PAGE ME/CALL THROUGH THE TEXTILE CUTTING MACHINE OPERATOR. FROM 7PM-7AM, PLEASE PAGE [phone](COVR) Code Status: DNR CC-A Barriers to Discharge: clinical course Expected Discharge Date: Discharge Destination: home Overview Patient is seen for evaluation and management of HF, NSTEMI. Subjective Patient examined at bedside around 1200 hours. No family present, RN at bedside. Report from patient and RN of episode of chest pain last night with nausea, relieved with nitroglycerin SL. Patient denies CP since, no SOB, denies swelling or weakness, n/v, fevers. Physical Exam Visit Vitals BP (!) 144/43 (BP Location: Left arm, Patient Position: Lying) Pulse 58 Temp 36.7 ???C (98.1 ???F) (Temporal) Resp 15 Intake/Output Summary (Last 24 hours) at 04/04/2023 0915 Last data filed at 04/04/2023 0740 Gross per 24 hour Intake 330.75 ml Output -- Net 330.75 ml Physical Exam Vitals and nursing note reviewed. Constitutional: General: She is not in acute distress. Appearance: Normal appearance. She is ill-appearing. HENT: Head: Normocephalic and atraumatic. Nose: Nose normal. Mouth/Throat: Mouth: Mucous membranes are moist. Pharynx: Oropharynx is clear. Eyes: Extraocular Movements: Extraocular movements intact. Conjunctiva/sclera: Conjunctivae normal. Cardiovascular: Rate and Rhythm: Normal rate and regular rhythm. Pulses: Normal pulses. Heart sounds: Murmur heard. Pulmonary: Effort: Pulmonary effort is normal. No respiratory distress. Breath sounds: Normal breath sounds. Abdominal: General: Bowel sounds are normal. There is no distension. Palpations: Abdomen is soft. Tenderness: There is no abdominal tenderness. Musculoskeletal: General: No swelling. Normal range of motion. Cervical back: Normal range of motion and neck supple. Right lower leg: No edema. Left lower leg: No edema. Skin: General: Skin is warm and dry. Capillary Refill: Capillary refill takes less than 2 seconds. Neurological: General: No focal deficit present. Mental Status: She is alert and oriented to person, place, and time. Mental status is at baseline. Psychiatric: Mood and Affect: Mood normal. Behavior: Behavior normal. Estimated body mass index is 23.24 kg/m??? as calculated from the following: Height as of this encounter: 1.6 m (5' 3 ). Weight as of this encounter: 59.5 kg (131 lb 3.2 oz). Active Inpatient Problems Principal Problem: Acute on chronic diastolic CHF (congestive heart failure) ([facility]/HCC) Active Problems: COPD (chronic obstructive pulmonary disease) ([facility]) Coronary artery disease HTN (hypertension) H/O Parkinson's disease HLD (hyperlipidemia) Status post coronary artery bypass graft Type 2 diabetes mellitus without complication ([facility]) Elevated troponin Acute hypoxic respiratory failure (CMS/HCC) Multifocal pneumonia Assessment and Plan Mirna Quezada is an 72 y.o. female who came from home with pastMedical history of Parkinson's disease, hypertension, DM2, hyperlipidemia, CAD s/p CABG, COPD presents to the [facility] as a direct admission from [facility] with elevated troponin and acute on chronic CHF exacerbation. #Acute on chronic CHF, unspecified NYHA class -BNP at OSH over 3000 -Patient was receiving daily lasix and appears to be currently euvolemic, holding off diuresis at this time -Strict intake and output and daily weights -Echocardiogram completed at OSH on 04/02/2023 showing an EF of 55 to 60% with severe aortic valve calcification -EKG shows sinus bradycardia -No plan for ischemic work up this admit, Echocardiogram ordered to re-eval the aortic valve, follow up results -Cardiology consult, appreciate recommendation #Elevated troponin, trend 0.11 -> 0.07 -reported to have chest pain last night per patient and per RN, relieved with nitroglycerin SL -Suspect likely type II -repeated EKG this morning is without any changes #Acute hypoxic respiratory failure, resolved #Multifocal pneumonia, resolved -currently on room air -Upon initial arrival to [place] on 03/29/2023, patient was requiring 2 L nasal cannula to maintain oxygen saturation of 92%, patient was eventually weaned back down to room air -Patient was also started on azithromycin and ceftriaxone for which she finished the course -Blood cultures were drawn at outside hospital and are currently pending #CAD, s/p CABG #DM2, ISS, ACHS #COPD #Hypertension #Hyperlipidemia #Parkinson's disease VTE Prophylaxis: Heparin subcutaneous Nutrition Screen Scheduled Meds atorvastatin, 20 mg, oral, Daily carbidopa-levodopa, 1 tablet, oral, 4x daily And carbidopa-levodopa, 1 half table (more content not included)... [place] 04-04-2023 Note Hospital Medicine History and Physical 04/03/2023 10:32 PM THE HOSPITALIST TEAM PREFERS TO USE [employer] CH[facility] FOR COMMUNICATION 7AM-7PM. IF I DO NOT RESPOND WITHIN 15 MINUTES, PLEASE PAGE ME/CALL THROUGH THE TEXTILE CUTTING MACHINE OPERATOR. FROM 7PM-7AM, PLEASE PAGE [phone](COVR) Chief Complaint Direct admission from [place] for elevated troponin and acute on chromic CHF History of Present Illness Mirna Quezada is an 72 y.o. female who came from home with pastMedical history of Parkinson's disease, hypertension, DM2, hyperlipidemia, CAD s/p CABG, COPD presents to the [facility] as a direct admission from [facility] with elevated troponin and acute on chronic CHF exacerbation. Patient originally went to [facility] on 03/29/2023 with a sore throat and URI symptoms for 5 days prior. Labs were completed upon her arrival showing an extremely elevated white blood cell count and CXR revealed multifocal pneumonia. She was started on azithromycin and ceftriaxone and she has finished these antibiotics. She was also hypoxic upon arrival at 85% and was requiring 2 L of oxygen. Shortness of breath continued even after antibiotic administration so aBNP was ordered which was found to be over 3000. Troponin levels were also ordered which were 1941 and 1095. She was started on daily IV Lasix and had great improvement in her symptoms. Our cardiology department was contacted and they state to bring patient over for cardiac catheterization. Patient does have a history of a CABG x 3, 22 years ago. During my examination, patient is resting bed comfortably. States that all cough and URI symptoms have completely resolved. She denies shortness of breath and is no longer requiring any oxygen. She denies any chest pain or bilateral lower extremity swelling. She complains of a dry mouth but has no other complaints. CODE STATUS reviewed and she is a DNRCCA WITH intubation. Review of System and Physical Exam Temp: [37.2 ???C (98.9 ???F)] 37.2 ???C (98.9 ???F) Heart Rate: [61] 61 Resp: [16] 16 BP: (120)/(59) 120/59 Physical Exam Vitals reviewed. Constitutional: Appearance: She is normal weight. HENT: Head: Normocephalic and atraumatic. Mouth/Throat: Mouth: Mucous membranes are dry. Pharynx: Oropharynx is clear. Eyes: Conjunctiva/sclera: Conjunctivae normal. Pupils: Pupils are equal, round, and reactive to light. Cardiovascular: Rate and Rhythm: Normal rate and regular rhythm. Pulmonary: Effort: Pulmonary effort is normal. Abdominal: General: Abdomen is flat. Bowel sounds are normal. Musculoskeletal: General: Normal range of motion. Cervical back: Normal range of motion. Skin: General: Skin is warm and dry. Capillary Refill: Capillary refill takes less than 2 seconds. Neurological: Mental Status: She is alert. Mental status is at baseline. Psychiatric: Mood and Affect: Mood normal. Behavior: Behavior normal. Thought Content: Thought content normal. Review of Systems Constitutional: Negative for chills, diaphoresis, fatigue and fever. HENT: Negative for congestion. Respiratory: Negative for chest tightness and shortness of breath. Cardiovascular: Negative for chest pain and palpitations. Gastrointestinal: Negative for abdominal pain, constipation, diarrhea, nausea and vomiting. Genitourinary: Negative for difficulty urinating and dyspareunia. Musculoskeletal: Negative for arthralgias and back pain. Skin: Negative for color change, pallor, rash and wound. Neurological: Positive for tremors. Negative for dizziness, facial asymmetry, light-headedness, numbness and headaches. Chronic tremor from parkinsons Psychiatric/Behavioral: Negative for agitation, behavioral problems, confusion, decreased concentration and dysphoric mood. All other systems reviewed and are negative. Problem List Patient Active Problem List Diagnosis Date Noted Acute on chronic diastolic CHF (congestive heart failure) ([facility]) 04/03/2023 Elevated troponin 04/03/2023 Acute hypoxic respiratory failure ([facility]) 04/03/2023 Multifocal pneumonia 04/03/2023 Cigarette smoker 10/31/2022 HTN (hypertension) 10/31/2022 History of heart attack 10/31/2022 H/O Parkinson's disease 10/31/2022 Nonrheumatic aortic valve stenosis 10/31/2022 Abnormal gait 08/10/2022 Autonomic neuropathy due to type 2 diabetes mellitus ([facility]) 08/10/2022 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 [place] 10-31-2022 Note Patient here to re-e [facility] care. She was last seen in September of [address] Jhaveri. She presents today for surgery clearance prior to lumbar laminectomy scheduled next week, 11/09 at [facility]. ECG and labs were done last week as part of preadmission testing. She denies chest pain, SOB, lightheadedness, and palpitations. Smoking less than half PPD she states. Review of Systems Respiratory: Positive for wheezing. Musculoskeletal: Positive for arthritis, back pain, joint pain, muscle weakness, myalgias and neck pain. Neurological: Positive for weakness. All other systems reviewed and are negative. [place] 10-31-2022 Note Cardiovascular Medic ine [facility] SUBJECTIVE No chief complaint on file. JEREMY Quezada is a 71 y.o. female with past medical history of coronary disease status post CABG (ALMARAZ to LAD, SVG to D1, and SVG to OM1) in 2000, coronary angiography showed 3 out of 3 patent grafts in 2009, negative stress test in 2014, moderate aortic stenosis, hyperlipidemia, type 2 diabetes mellitus, ischemic cardiomyopathy, and aortic valve stenosis who is here to reestablish care. She was last seen by Dr. Jhaveri in 2016. She has been in a wheelchair for about two years now. She is able to walk about 100 feet before she has to stop due to back pain. No chest pain, dyspneic symptoms, or lower extremity edema. She has been recommended a laminectomy which requires general anesthesia. Smoking about 1/2 ppd. She is trying to quit. She has tried Chantix in the past which has worked well for her. 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 Carotid stenosis, bilateral Carpal tunnel syndrome, left Cervical myelopathy (CMS/HCC) Congenital spondylolisthesis Cigarette smoker Cigarette smoker two packs a day or less Chronic systolic heart failure (CMS/HCC) Coronary artery disease Coronary atherosclerosis Critical ischemia of lower extremity (CMS/HCC) Decreased estrogen level 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 Diabetes mellitus (CMS/HCC) Diabetic mononeuropathy (CMS/HCC) Difficulty walking Fibromyalgia Esophageal reflux HTN (hypertension) History of heart attack Hearing loss of right ear H/O Parkinson's disease General weakness Hyperlipidemia Ataxia Lack of coordination Migraine with aura Mixed anxiety depressive disorder Muscle weakness 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, unilateral, right ear with restricted hearing on the contralateral side Neurogenic claudication Nonrheumatic aortic valve stenosis PAD (peripheral artery disease) (CMS/HCC) Polyneuropathy due to type 2 diabetes mellitus (CMS/HCC) Polyneuropathy Persistent insomnia Parkinson's disease (CMS/HCC) Palpitations Preoperative evaluation to rule out surgical contraindication Primary cardiomyopathy (CMS/HCC) Seasonal allergic rhinitis Tinnitus Status post coronary artery bypass graft Spinal stenosis of lumbar region Solitary pulmonary nodule Primary osteoarthritis Osteoarthrosis Tobacco user Type 2 diabetes mellitus without complication (CMS/HCC) Undifferentiated inflammatory polyarthritis (CMS/HCC) Past Medical History: Diagnosis Date Coronary artery disease Diabetes mellitus (CMS/HCC) GERD (gastroesophageal reflux disease) Heart valve disease Hyperlipidemia Primary cardiomyopathy (CMS/HCC) Past Surgical History: Procedure Laterality Date BACK SURGERY BOWEL RESECTION CARDIAC CATHETERIZATION CARPAL TUNNEL RELEASE CERVICAL SPINE SURGERY SECTION, CLASSIC CHOLECYSTECTOMY CORONARY ARTERY BYPASS GRAFT Family History Problem Relation Name Age of Onset Hypertension Mother ALS Father Social History Tobacco Use Smoking status: Every Day Packs/day: 0.50 Types: Cigarettes Smokeless tobacco: Never Substance Use Topics Alcohol use: Yes Comment: occasional Review of Systems Cardiovascular: Positive for dyspnea on exertion. Negative for chest pain, leg swelling, near-syncope, orthopnea, palpitations, paroxysmal nocturnal dyspnea and syncope. Musculoskeletal: Positive for back pain. OBJECTIVE Visit Vitals BP 97/53 (BP Location: Left arm, Patient Position: Sitting) Pulse 80 Ht 1.6 m (5' 3 ) Wt 61.7 kg (136 lb) SpO2 95% BMI 24.09 kg/m??? Smoking Status Every Day BSA 1.66 m??? Medications: Current Outpatient Medications: aspirin 81 mg EC tablet, Take 1 tablet by mouth in the morning., Disp: , Rfl: atorvastatin (Lipitor) 20 mg tablet, Take 1 tablet by mouth in the morning., Disp: , Rfl: carbidopa-levodopa (Sinemet) 25-100 mg tablet, Take 1.5 tablets by mouth., Disp: , Rfl: citalopram (CeleXA) 40 mg tablet, Take 1 tablet by mouth in the morning., Disp: , Rfl: clopidogrel (Plavix) 75 mg tablet, Take 1 tablet by mouth in the morning., Disp: , Rfl: cyanocobalamin (Vitamin B-12) 1,000 mcg tablet, Take 1,000 mcg by mouth in the morning., Disp: , Rfl: HYDROcodone-acetaminophen ([place]) 10-325 mg tablet, Take 1 tablet by mouth every 8 (eight) hours., Disp: , Rfl: isosorbide mononitrate ER (Imdur) 30 mg 24 hr tablet, Take 1 tablet by mouth in the morning., Disp: , Rfl: metFORMIN XR (Glucophage-XR) 750 (more content not included)... [place] 01-11-2022 Note [id number] SURGERY Clinical Discharge Summary PERSON INFORMATION Name MIRNA QUEZADA Age 71 Years 1950 Sex FEMALE Language Samoan PCP VILLA NICOLAS Marital Status Med Service Ambulatory Surgery Acct# Arrival 01/09/2022 12:18:00 Visit Reason SURGERY - LEFT CARPAL TUNNEL RELEASE Acuity LOS 019 06:34 Address: [address] [place] [address] [place] [address] [phone] Comment: PROVIDER INFORMATION VITALS INFORMATION Vital Sign Triage Latest Temp Oral Temp Temporal Temp Intravascular Temp Axillary Temp Rectal 02 Sat 99 % 99 % Respiratory Rate Peripheral Pulse Rate Apical Heart Rate Blood Pressure / 82 mmHg / 88 mmHg Comment: MEDICAL INFORMATION Allergy Info: Augmentin Prescriptions Given: acetaminophen-hydrocodone (acetaminophen-hydrocodone 325 mg-10 mg oral tablet) 1 tab(s) Oral Every 6 hours as needed as needed for pain. aspirin (aspirin 81 mg oral delayed release tablet) 1 tab(s) Oral every day. atorvastatin (atorvastatin 20 mg oral tablet) 1 tab(s) Oral every day. carbidopa-levodopa (carbidopa-levodopa 25 mg-100 mg oral tablet) 1 tab(s) Oral 4 times a day. citalopram (CeleXA 40 mg oral tablet) 1 tab(s) Oral every day. clopidogrel (clopidogrel 75 mg oral tablet) 1 tab(s) Oral every day. cyanocobalamin (Vitamin B-12 1000 mcg oral tablet) 1 tab(s) Oral every day. isosorbide mononitrate (isosorbide mononitrate 30 mg oral tablet, extended release) 1 tab(s) Oral once a day (in the morning). metFORMIN (MetFORMIN (Eqv-Glucophage XR) 500 mg oral tablet, extended release) 2 tab(s) Oral every day. prednisoLONE ophthalmic (prednisoLONE acetate 1% ophthalmic suspension) 12 Drops Both eyes 2 times a day for 10 Days. pregabalin (pregabalin 200 mg oral capsule) 1 cap(s) Oral 3 times a day. primidone (primidone 50 mg oral tablet) 1 tab(s) Oral 2 times a day. rOPINIRole (rOPINIRole 0.25 mg oral tablet) 1 tab(s) Oral 4 times a day. tiZANidine (tiZANidine 4 mg oral capsule) 1 cap(s) Oral At bedtime as needed anxiety. Medication List: Medications That Were Updated - Follow Below Instructions Other Medications Updated: prednisoLONE ophthalmic (prednisoLONE acetate 1% ophthalmic suspension) 12 Drops Both eyes 2 times a day for 10 Days. Updated: primidone (primidone 50 mg oral tablet) 1 tab(s) Oral 2 times a day. Medications to Continue That Have Not Changed Other Medications acetaminophen-hydrocodone (acetaminophen-hydrocodone 325 mg-10 mg oral tablet) 1 tab(s) Oral Every 6 hours as needed as needed for pain. aspirin (aspirin 81 mg oral delayed release tablet) 1 tab(s) Oral every day. atorvastatin (atorvastatin 20 mg oral tablet) 1 tab(s) Oral every day. carbidopa-levodopa (carbidopa-levodopa 25 mg-100 mg oral tablet) 1 tab(s) Oral 4 times a day. citalopram (CeleXA 40 mg oral tablet) 1 tab(s) Oral every day. clopidogrel (clopidogrel 75 mg oral tablet) 1 tab(s) Oral every day. cyanocobalamin (Vitamin B-12 1000 mcg oral tablet) 1 tab(s) Oral every day. isosorbide mononitrate (isosorbide mononitrate 30 mg oral tablet, extended release) 1 tab(s) Oral once a day (in the morning). metFORMIN (MetFORMIN (Eqv-Glucophage XR) 500 mg oral tablet, extended release) 2 tab(s) Oral every day. pregabalin (pregabalin 200 mg oral capsule) 1 cap(s) Oral 3 times a day. rOPINIRole (rOPINIRole 0.25 mg oral tablet) 1 tab(s) Oral 4 times a day. tiZANidine (tiZANidine 4 mg oral capsule) 1 cap(s) Oral At bedtime as needed anxiety. Medications That Were Updated - Follow Below Instructions Other Medications Updated: prednisoLONE ophthalmic (prednisoLONE acetate 1% ophthalmic suspension) 12 Drops Both eyes 2 times a day for 10 Days. Updated: primidone (primidone 50 mg oral tablet) 1 tab(s) Oral 2 times a day. Medications to Continue That Have Not Changed Other Medications acetaminophen-hydrocodone (acetaminophen-hydrocodone 325 mg-10 mg oral tablet) 1 tab(s) Oral Every 6 hours as needed as needed for pain. aspirin (aspirin 81 mg oral delayed release tablet) 1 tab(s) Oral every day. atorvastatin (atorvastatin 20 mg oral tablet) 1 tab(s) Oral every day. carbidopa-levodopa (carbidopa-levodopa 25 mg-100 mg oral tablet) 1 tab(s) Oral 4 times a day. citalopram (CeleXA 40 mg oral tablet) 1 tab(s) Oral every day. clopidogrel (clopidogrel 75 mg oral tablet) 1 tab(s) Oral every day. cyanocobalamin (Vitamin B-12 1000 mcg oral tablet) 1 tab(s) Oral every day. isosorbide mononitrate (isosorbide mononitrate 30 mg oral tablet, extended release) 1 tab(s) Oral once a day (in the morning). metFORMIN (MetFORMIN (Eqv-Glucophage XR) 500 mg oral tablet, extended release) 2 tab(s) Oral every day. pregabalin (pregabalin 200 mg oral capsule) 1 cap(s) Oral 3 times a day. rOPINIRole (rOPINIRole 0.25 mg oral tablet) 1 tab(s) Oral 4 times a day. tiZANidine (tiZANidine 4 mg oral capsule) 1 cap(s) Oral At bedtime as needed anxiety. Medications That Were Updated - Follow Below Instruc (more content not included)... [facility] 01-09-2022 Note Procedure: Decompres wilman of median nerve left wrist with release of carpal canal Pre Op Diagnosis: Carpal tunnel syndrome left Post Op Diagnosis: Carpal tunnel syndrome left Surgeon: Dr. Anneliese Rodriguez DO Anesthesia: MAC local Indication for Surgery: The patient had symptoms of carpal tunnel syndrome. There was evidence of progression. We discussed surgical and nonsurgical alternatives and the risks and benefits of each and the chances for success / failure. I recommended to proceed with surgery and the patient requested the same. Findings: The median nerve was noted to be present and intact within the carpal canal. The carpal canal/tunnel was stenotic Blood Loss: Scant Specimen: None Procedure Summary: After administration of anesthesia the right upper extremity was sterilely prepped and draped in usual fashion. A timeout was taken in the operating room. I infiltrated the incision site with 1% lidocaine with epinephrine. Dermis exsanguinated and tourniquet inflated to 250 mmHg. A longitudinal incision was made over the carpal tunnel dissection was carried down beyond the palmaris longus and down to the transverse carpal ligament. Transverse carpal ligament was incised with a 15 blade and then released proximally and distally with a pair of Rose scissors. I made sure that the nerve was completely decompressed as it exited the distal volar forearm fascia and traveled through the carpal tunnel and into the hand. The wound was irrigated with copious amounts sterile saline and the skin was closed with nylon suture. Adaptic sterile dressings and an Curt bandage were applied with the thumb in apposition Complications: None [Electronically Signed on: 01/09/2022 17:13 EDT] __ Ambrose Rodriguez DO [Verified on: 01/09/2022 17:13 EDT] __ Ambrose Rodriguez DO [facility] Summary Purpose Family History No Family History Records FoundNo Family History Records FoundNo Family History Records FoundNo Family History Records FoundNo Family History Records FoundNo Family History Records FoundNo Family History Records FoundNo Family History Records Found Advance Directives No Advanced Directives Records FoundNo Advanced Directives Records FoundNo Advanced Directives Records FoundNo Advanced Directives Records FoundNo Advanced Directives Records FoundNo Advanced Directives Records FoundNo Advanced Directives Records FoundNo Advanced Directives Records Found Additional Source Comments INFORMATION SOURCE (unrecogn ized section and content) DATE CREATED AUTHOR 09/19/2017 [facility] DATE CREATED AUTHOR AUTHOR'S ORGANIZ ATION 07/16/2021 [facility] DATE CREATED AUTHOR AUTHOR'S ORGANIZ ATION 01/19/2022 [facility] DATE CREATED AUTHOR AUTHOR'S ORGANIZ ATION 07/03/2022 [facility] DATE CREATED AUTHOR AUTHOR'S ORGANIZ ATION 10/31/[address] [facility] DATE CREATED AUTHOR AUTHOR'S ORGANIZ ATION 02/08/2023 [facility] DATE CREATED AUTHOR AUTHOR'S ORGANIZ ATION 03/16/2023 [facility] EPIC DATE CREATED AUTHOR AUTHOR'S ORGANIZ ATION 04/15/2023 [facility] Care Teams (unrecognized sec tion and content) Lead Javascript Engineer Relationship Specialty Start Date End Date Villa Nicolas MD [address] [id number] PCP - General Internal Medicine 09/27/22 Lead Javascript Engineer Relationship Specialty Start Date End Date Villa Nicolas MD [address] [facility] [address] [place] [address] PCP - General Internal Medicine 09/27/22 FOR RECORDS PERTAINING TO PATIENTS WHO ARE OR HAVE BEEN ENROLLED IN A CHEMICAL DEPENDENCY/SUBSTANCEABUSE PROGRAM, SOME INFORMATION MAY BE OMITTED. This clinical summary was aggregated from multiple sources. Caution should be exercised in using it in the provision of clinical care. This summary normalizes information from multiple sources, and as a consequence, information in this document may materially change the coding, format and clinical context of patient data. In addition, data may be omitted in some cases. CLINICAL DECISIONS SHOULD BE BASED ON THE PRIMARY CLINICAL RECORDS. [facility]. provides no warranty or guarantee of the accuracy or completeness of information in this document.
[2023-04-19 16:12] LABS: Anion Gap 11.3; BUN Creatinine Ratio 25.8; Calcium 9.1 mg/dL (8.5-10.1); Carbon Dioxide 28.1 mmol/L (21.0-32.0); Chloride 104 mmol/L (98-107); Estimated GFR (African America >60 (>=60); Estimated GFR (Non-African Ame >60 (>=60); Glucose 119 mg/dL (74-106); Potassium 4.4 mmol/L (3.5-5.1); Sodium 139 mmol/L (136-145)
== END 2023-04-19 15:06 | disposition home or self-care (01) ==
LOC: LAB 15:07
PROVIDERS: PCP Internal Medicine; Visit Provider Nurse Practitioner
DX: I42.9 Cardiomyopathy, unspecified (principal); I50.22 Chronic systolic (congestive) heart failure
CPT/HCPCS: 36415; 80048

== ENCOUNTER 2023-06-01 11:52 | Outpatient (OUT) | payer MEDICARE, MEDICAID, SELFPAY ==
--- OUTSIDE RECORDS SUMMARY | 2023-06-01 11:57 | XMS_ITS | CCD ---
Author Name Unknown Address [address] [place] [address] Organization [facility] Care Team Providers Care Mold Shifter Name Role Phone PHYSICIAN, DEFAULT Unavailable Unavailable PHYSICIAN, DEFAULT Unavailable VILLA Preston Unavailable VILLA Preston Primary Care Unavailable Jennifer, Ambrose Castellanos Admitting Unavail able Jennifer, Ambrose Castellanos Attending Unavail able VILLA NIOCLAS Consulting Unavailable VILLA NICOLAS Primary Care Unavailable Jennifer, Ambrose Castellanos Admitting Unavail able Jennifer, Ambrose Castellanos Attending Unavail able Jennifer, Ambrose Castellanos Admitting Unavail able Jennifer, Ambrose Castellanos Attending Unavail able VILLA NICOLAS Primary Care Unavailable CHANTEL, REBECA Admitting Unavailable CHANTEL, REBECA Attending Unavailable FIDENCIO, DR TREVINO Primary Care Unavailable KAITLYNN, DR BLAYNE Ellis Consulting Unavailable CHANTEL, REBECA Consulting Unavailable FIDENCIO, DR TREVINO Admitting Unavailable FIDENCIO, DR TREVINO Attending Unavailable FIDENCIO, DR TREVINO Primary Care Unavailable REBECA GOLDEN Admitting Unavailable REBECA GOLDEN Attending Unavailable FIDENCIO, DR TREVINO Primary Care Unavailable FIDENCIO, DR TREVINO Consulting Unavailable DELMI, DR CHARY Gonzalez Consulting Unavailable CHANTELREBECA Consulting Unavailable SINGH, YASMEEN Admitting Unavailable SINGH, YASMEEN Attending Unavailable FIDENCIO, DR TREVINO Primary Care Unavailable GARRET BENJAMIN Consulting Unavailable SINGH, YASMEEN Consulting Unavailable FIDENCIO, DR TREVINO Admitting Unavailable FIDENCIO, DR TREVINO Attending Unavailable FIDENCIO, DR TREVINO Primary Care Unavailable FIDENCIO, DR TREVINO Consulting Unavailable DELMI, DR CHARY Gonzalez Consulting Unavailable CHRISTIAN WEBSTER Referring Unavailable VILLA NICOLAS Primary Care Unavailable Villa Nicolas MD Primary Care Provider [phone] Villa Nicolas MD Primary Care Provider [phone] Villa Nicolas MD Unavailable [phone] Sabi WRIGHT, Montse Unavailable [phone] CHRISTIAN WEBSTER Referring Unavailable VILLA NICOLAS Primary Care Unavailable VILLA NICOLAS Primary Care Unavailable CHRISTIAN WEBSTER Referring Unavailable PIRKL, SELENE Referring Unavailable ELTAHAWY, EHAB Referring Unavailable PIRKL, SELENE Referring Unavailable HOY, ALE Referring Unavailable BRUCE, SÁNCHEZ Admitting Unavailable DEENA GARCIA Attending Unavailable ROSANA MIKE Attending Unavailable DIONE CUEVAS Attending Unavailable DIONE CUEVAS Attending Unavailable VILLA NICOLAS Attending Unavailable ZOË BAUMAN Attending Unavailable VILLA NICOLAS Referring Unavailable VILLA NICOLAS Attending Unavailable Allergies Allergy Classification Reported Allergen(s) Allergy Type Date of Onset Reaction(s) Facility (4 sources) amoxicillin / clavulanate; Translations: [Augmentin] Drug Allergy 0 [facility] (1 source) Penicillins Drug allergy (disorder) 0 [facility] (1 source) DULoxetine Drug Allergy 7 [facility] (1 source) OXcarbazepine Drug Allergy 7 [facility] (4 sources) DULoxetine Drug Allergy 7 Hives, Other (See Comments) [facility] (3 sources) false ragweed pollen extract / western ragweed pollen extract Drug Allergy 3 Rash, Other (See Comments) [facility] (3 sources) OXcarbazepine Drug Allergy 7 Other (See Comments) [facility] (5 sources) Amoxicillin-Pot Clavulanate; Translations: [AMOXICILLIN-POT CLAVULANATE] Propensity to adverse reactions to drug 0 Angioedema [facility] (1 source) Penicillin G Drug Allergy 3 Unknown [facility] (1 source) Mixed Ragweed Propensity to adverse reactions 3 [facility] Medications Current Medications Medication Drug Class(es) Dates Sig (Normalized) Sig (Original) acetaminophen 325 mg / HYDROcodone bitartrate 10 mg oral tablet (5 sources) Opioid Agonist Start: 03-15-2023 End: 05-07-2023 take 1 tablet by mouth every eight hours HYDROcodone-acetamin ophen ([place]) 10-325 MG tablet Indications: Intervertebral disc disorder of lumbar region with myelopathy Take 1 tablet by mouth every 8 (eight) hours 90 tablet 0 05/07/2023 Active Start: 10-11-2022 HYDROcodone-ac etaminophen (NORCO) 10-325 MG per tablet Take 1 tablet by mouth in the morning and 1 tablet at noon and 1 tablet in the evening. 0 10/11/2022 Active aspirin 81 mg delayed release oral tablet (4 sources) Platelet Aggregation Inhibitor, Nonsteroidal Anti-inflammatory Drug Start: 12-28-2022 take 1 tablet by mouth in the morning aspirin 81 MG EC tablet Indications: PAD (peripheral artery disease) (CMS/HCC) Take 1 tablet (81 mg) by mouth in the morning. 100 tablet 3 12/28/2022 Active atorvastatin 40 mg oral tablet (4 sources) HMG-CoA Reductase Inhibitor Start: 04-03-2023 take 1 tablet by mouth in the morning atorvastatin (Lipitor) 40 MG tablet Indications: Mixed hyperlipidemia (CMS/HCC) TAKE 1 TABLET BY MOUTH IN THE MORNING 100 tablet 3 04/03/2023 Active Start: 03-10-2020 take 1 tablet by naida th once daily atorvastatin (LIPITOR) 20 MG tablet Take 1 tablet by mouth daily 0 03/10/2020 Active carbidopa 25 mg / levodopa 100 mg oral tablet (4 sources) Aromatic Amino Acid Decarboxylation Inhibitor, Aromatic Amino Acid Start: 08-31-2022 take 1 tablet by mouth four times daily carbidopa-levodopa (SINEMET) 25-100 MG per tablet Take 1 tablet by mouth 4 times daily 0 08/31/2022 Active carbidopa-levodo pa (Sinemet) 25-100 MG tablet Take 1.5 tablets by mouth in the morning and 1.5 tablets at noon and 1.5 tablets in the evening and 1.5 tablets before bedtime. 0 Active citalopram 40 mg oral tablet (4 sources) Serotonin Reuptake Inhibitor Start: 10-24-2022 End: 10-24-2023 take 1 tablet by mouth once daily in the morning citalopram (CELEXA) 40 MG tablet Take 1 tablet by mouth every morning 0 10/24/2022 Active clopidogrel 75 mg oral tablet (4 sources) P2Y12 Platelet Inhibitor Start: 09-13-2022 take 1 tablet by mouth once daily clopidogrel (PLAVIX) 75 MG tablet Take 1 tablet by mouth daily 0 09/13/2022 Active entacapone 200 mg oral tablet (1 source) Ppszmcet-E-Lytswg transferase Inhibitor entacapone (Comtan) 200 MG tablet Take 200 mg by mouth in the morning and 200 mg at noon and 200 mg in the evening and 200 mg before bedtime. 0 Active 24 hr isosorbide mononitrate 30 mg extended release oral tablet (4 sources) Nitrate Vasodilator Start: 08-03-2022 take 1 tablet by mouth once daily isosorbide mononitrate (IMDUR) 30 MG extended release tablet Take 1 tablet by mouth daily 0 08/03/2022 Active lisinopril 5 mg oral tablet (1 source) Angiotensin Converting Enzyme Inhibitor take 1 tablet by mouth in the morning lisinopril 5 MG tablet Take 5 mg by mouth in the morning. 0 Active 24 hr metFORMIN hydrochloride 750 mg extended release oral tablet (4 sources) Biguanide Start: 12-28-2022 End: 12-28-2023 take 1 tablet by mouth every twenty-four hours at mealtime metFORMIN XR (Glucophage-XR) 750 MG 24 hr tablet Indications: Type II diabetes mellitus with manifestations (CMS/HCC) Take 1 tablet (750 mg) by mouth in the evening. Take with meals. Do not crush, chew, or split. 100 tablet 3 12/28/2022 12/28/2023 Active Start: 08-17-2022 take 1000 mg by mout h once daily METFORMIN HCL ER PO Take 1,000 mg by mouth daily 0 08/17/2022 Active nitroglycerin 0.4 mg sublingual tablet (4 sources) Nitrate Vasodilator Start: 09-04-2011 nitroGLYCE RIN (NITROSTAT) 0.[address] 1 tablet under the tongue every 5 minutes as needed for Chest pain Max dose of 5 tablets 0 09/04/2011 Active nystatin 100 unt/mg topical powder (4 sources) Polyene Antifungal nystatin (MYC OSTATIN) 652840 UNIT/GM powder Apply 1 application topically in the morning and 1 application in the evening. 0 Active nystatin (Mycost atin) 368650 UNIT/GM powder every 12 (twelve) hours. 0 Active 24 hr oxybutynin chloride 10 mg extended release oral tablet (4 sources) Cholinergic Muscarinic Antagonist Start: 09-13-2022 take 1 tablet by mouth once daily in the morning oxybutynin (DITROPAN-XL) 10 MG extended release tablet Take 1 tablet by mouth every morning 0 09/13/2022 Active Start: 09-13-2022 take 1 tablet by naida th every twenty-four hours in the morning oxybutynin XL (Ditropan-XL) 10 MG 24 hr tablet Indications: Mixed stress and urge urinary incontinence Take 1 tablet (10 mg) by mouth in the morning. 90 tablet 3 09/13/2022 Active pregabalin 200 mg oral capsule (4 sources) Start: 04-30-2014 take 1 capsule by mouth at bedtime pregabalin (LYRICA) 200 MG capsule Take 1 capsule by mouth in the morning, at noon, and at bedtime. 0 04/30/2014 Active primidone 250 mg oral tablet (5 sources) Anti-epileptic Agent Start: 05-03-2023 take 1 tablet by mouth once daily at bedtime primidone (MYSOLINE) 250 MG tablet Take 1 tablet by mouth nightly at bedtime. 0 05/03/2023 Active Start: 09-13-2022 End: 05-24-2023 take 1 tablet by mouth four times daily primidone (MYSOLINE) 50 MG tablet Take 1 tablet by mouth 4 times daily 0 09/13/2022 05/24/2023 Discontinued (LIST CLEANUP) rOPINIRole 0.25 mg oral tablet (3 sources) Nonergot Dopamine Agonist Start: 09-13-2022 take 1 tablet by mouth four times daily rOPINIRole (REQUIP) 0.25 MG tablet Take 1 tablet by mouth 4 times daily 0 09/13/2022 Active tiZANidine 4 mg oral tablet (4 sources) Central alpha-2 Adrenergic Agonist Start: 09-15-2022 take 1 tablet by mouth four times daily tiZANidine (ZANAFLEX) 4 MG tablet Take 1 tablet by mouth 4 times daily 0 09/15/2022 Active vitamin b12 1 mg oral tablet (4 sources) Vitamin B12 Start: 07-11-2022 take 1 tablet by mouth in the morning cyanocobalamin (Vitamin B-12) 1000 MCG tablet Take 1,000 mcg by mouth in the morning. 0 07/11/2022 Active take 1000 ug by mouth once daily Cyanocobalamin (VITAMIN B12 PO) Take 1,000 mcg by mouth daily 0 Active Completed/Discontinued Medications Medication Drug Class(es) Dates Sig (Normalized) Sig (Original) diclofenac sodium 0.01 mg/mg topical gel (3 sources) Nonsteroidal Anti-inflammatory Drug Start: 09-23-2022 End: 05-24-2023 diclofenac sodium (VOLTAREN) 1 % GEL Apply topically 4 times daily 0 09/23/2022 05/24/2023 Discontinued (LIST CLEANUP) Problems Active Problems Problem Classification Problem Date Documented Date Episodic/Chronic Acquired foot deformities (2 sources) Foot drop, left foot; Translations: [Foot drop, left foot] Onset: 02-02-2023 Episodic Anxiety disorders (1 source) Mixed anxiety and depressive disorder; Translations: [Other specified anxiety disorders] Onset: 08-10-2022 08-10-2022 Chronic Chronic obstructive pulmonary disease and bronchiectasis (1 source) Acute exacerbation of chronic obstructive airways disease; Translations: [Chronic obstructive pulmonary disease with (acute) exacerbation] Onset: 08-10-2022 08-10-2022 Chronic Congestive heart failure; nonhypertensive (10 sources) Acute on chronic diastolic heart failure; Translations: [Acute on chronic diastolic (congestive) heart failure] Onset: 03-11-2015 Resolved: 04-23-2023 04-23-2023 Chronic Coronary atherosclerosis and other heart disease (4 sources) Coronary arteriosclerosis; Translations: [Atherosclerotic heart disease of andreafski coronary artery without angina pectoris] Onset: 08-10-2022 08-10-2022 Chronic 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 neuropathy due to type 2 diabetes mellitus; Translations: [Type 2 diabetes mellitus with diabetic autonomic (poly)neuropathy] Onset: 08-10-2022 08-10-2022 Chronic Disorders of lipid metabolism (3 sources) Hyperlipidemia; Translations: [Hyperlipidemia, unspecified] Onset: 08-10-2022 08-10-2022 Chronic Esophageal disorders (1 source) Gastroesophageal reflux disease; Translations: [Gastro-esophageal reflux disease without esophagitis] Onset: 05-08-2008 08-10-2022 Chronic Essential hypertension (3 sources) Hypertensive disorder; Translations: [Essential (primary) hypertension] Onset: 10-31-2022 04-23-2023 Chronic Genitourinary symptoms and ill-defined conditions (1 source) Mixed urinary incontinence; Translations: [Mixed incontinence] Onset: 08-10-2022 08-10-2022 Chronic Headache; including migraine (1 source) Migraine with aura; Translations: [Migraine with aura, not intractable, without status migrainosus] Onset: 05-21-2008 08-10-2022 Chronic Heart valve disorders (3 sources) Aortic stenosis, non-rheumatic ; Translations: [Nonrheumatic aortic (valve) stenosis] Onset: 10-31-2022 04-23-2023 Chronic Menopausal disorders (1 source) Decreased estrogen level; Translations: [Other primary ovarian failure] Onset: 08-10-2022 08-10-2022 Chronic Occlusion or stenosis of precerebral arteries (2 sources) Occlusion and stenosis of bilateral carotid arteries; Translations: [Bilateral stenosis of carotid arteries] Onset: 01-25-2022 08-10-2022 Chronic Osteoarthritis (1 source) Idiopathic osteoarthritis; Translations: [Primary osteoarthritis, unspecified site] Onset: 05-08-2008 08-10-2022 Chronic Other acquired deformities (2 sources) Spondylolisthesis, lumbar region; Translations: [Spondylolisthesis, lumbar region] Onset: 02-02-2023 Episodic Other acquired deformities (2 sources) Spondylolisthesis, site unspecified; Translations: [Spondylolisthesis, site unspecified] Onset: 05-24-2023 Episodic Other congenital anomalies (1 source) Congenital spondylolisthesis; Translations: [Congenital spondylolisthesis] Onset: 09-30-2013 04-23-2023 Chronic Other ear and sense organ disorders (1 source) Hearing loss of right ear; Translations: [Unspecified hearing loss, right ear] Onset: 08-10-2022 08-10-2022 Chronic Other ear and sense organ disorders (1 source) Mixed conductive AND sensorineural hearing loss; Translations: [Mixed conductive and sensorineural hearing loss, unilateral, right ear with restricted hearing on the contralateral side] Onset: 08-10-2022 08-10-2022 Chronic Other hereditary and degenerative nervous system conditions (1 source) Multiple system atrophy; Translations: [Multi-system degeneration of the autonomic nervous system] Onset: 08-10-2022 08-10-2022 Chronic Other nervous system disorders (1 source) Bilateral brachial plexopathy of upper limbs; Translations: [Brachial plexus disorders] Onset: 08-10-2022 08-10-2022 Chronic Other nervous system disorders (1 source) Carpal tunnel syndrome of left wrist; Translations: [Carpal tunnel syndrome, left upper limb] Onset: 08-10-2022 08-10-2022 Chronic Other nervous system disorders (1 source) Difficulty walking; Translations: [Difficulty in walking, not elsewhere classified] Onset: 08-10-2022 08-10-2022 Chronic Other nervous system disorders (1 source) Polyneuropathy; Translations: [Polyneuropathy, unspecified] Onset: 08-10-2022 08-10-2022 Chronic Other nervous system disorders (1 source) Cervical myelopathy; Translations: [Disease of spinal cord, unspecified] Onset: 05-28-2020 04-23-2023 Chronic Other screening for suspected conditions (not mental disorders or infectious disease) (1 source) Raised cardiac enzyme or marker; Translations: [Other specified abnormal findings of blood chemistry] Onset: 04-03-2023 04-23-2023 Episodic Other upper respiratory disease (1 source) Seasonal allergic rhinitis; Translations: [Other seasonal allergic rhinitis] Onset: 08-10-2022 08-10-2022 Chronic Hailee-; endo-; and myocarditis; cardiomyopathy (except that caused by tuberculosis or sexually transmitted disease) (3 sources) Primary cardiomyopathy; Translations: [Cardiomyopathy, unspecified] Onset: 03-08-2012 04-23-2023 Chronic Peripheral and visceral atherosclerosis (16 sources) Atherosclerosis of andreafski arteries of extremities with rest pain, bilateral legs; Translations: [Peripheral vascular disease, unspecified] Onset: 11-25-2021 Chronic Pneumonia (except that caused by tuberculosis or sexually transmitted disease) (1 source) Pneumonia; Translations: [Pneumonia, unspecified organism] Onset: 04-03-2023 04-23-2023 Episodic Rheumatoid arthritis and related disease (1 source) Undifferentiated inflammatory polyarthritis; Translations: [Inflammatory polyarthropathy] Onset: 08-10-2022 08-10-2022 Chronic Spondylosis; intervertebral disc disorders; other back problems (3 sources) Intervertebral disc disorder of lumbar region with myelopathy; Translations: [Intervertebral disc disorders with myelopathy, lumbar region] Onset: 11-19-2008 05-07-2023 Chronic Substance-related disorders (3 sources) Heavy cigarette smoker; Translations: [Nicotine dependence, cigarettes, uncomplicated] Onset: 08-10-2022 08-10-2022 Chronic Unclassified (1 source) Parkinson's disease; Translations: [Parkinson's disease] Onset: 08-10-2022 08-10-2022 Chronic Unclassified (1 source) Low back pain, unspecified; Translations: [Low back pain, unspecified] Onset: 10-26-2022 Past or Other Problems Problem Classification Problem Date Documented Date Episodic/Chronic Cardiac dysrhythmias (1 source) Palpitations; Translations: [Palpitations] Onset: 08-16-2011 04-23-2023 Episodic Malaise and fatigue (1 source) Asthenia; Translations: [Weakness] Onset: 08-10-2022 08-10-2022 Episodic Other circulatory disease (1 source) Other specified symptoms and signs involving the circulatory and respiratory systems; Translations: [OTH SPEC SX SIGNS INVLV CIRC RS] Onset: 01-25-2022 Episodic Other circulatory disease (1 source) Other disorder of circulatory system; Translations: [OTHER DISORDER CIRCULATORY SYSTEM] Onset: 01-22-2022 Episodic Other connective tissue disease (1 source) Fibromyalgia; Translations: [Fibromyalgia] Onset: 08-10-2022 08-10-2022 Episodic Other connective tissue disease (1 source) Muscle weakness; Translations: [Muscle weakness (generalized)] Onset: 08-10-2022 08-10-2022 Episodic Other connective tissue disease (1 source) Neurogenic claudication; Translations: [Other symptoms and signs involving the nervous system] Onset: 09-30-2013 04-23-2023 Episodic Other ear and sense organ disorders (1 source) Tinnitus; Translations: [Tinnitus, unspecified ear] Onset: 08-10-2022 08-10-2022 Episodic Other lower respiratory disease (1 source) Solitary nodule of lung; Translations: [Solitary pulmonary nodule] Onset: 08-10-2022 08-10-2022 Episodic Other nervous system disorders (1 source) Abnormal gait; Translations: [Unspecified abnormalities of gait and mobility] Onset: 08-10-2022 08-10-2022 Episodic Other nervous system disorders (1 source) Incoordination; Translations: [Unspecified lack of coordination] Onset: 08-10-2022 08-10-2022 Episodic Other nervous system disorders (1 source) H/O: brain disorder; Translations: [Personal history of other diseases of the nervous system and sense organs] Onset: 10-31-2022 04-23-2023 Episodic Residual codes; unclassified (1 source) Persistent insomnia; Translations: [Insomnia, unspecified] Onset: 05-08-2008 08-10-2022 Episodic Residual codes; unclassified (1 source) Tobacco user; Translations: [Tobacco use] Onset: 07-13-2015 04-23-2023 Episodic Spondylosis; intervertebral disc disorders; other back problems (10 sources) Radiculopathy, lumbosacral region; Translations: [Spinal stenosis, lumbar region without neurogenic claudication] Onset: 09-30-2013 Episodic Unclassified (1 source) Low back pain, unspecified; Translations: [Low back pain, unspecified] Onset: 10-26-2022 Results Test Name Value Interpretation Reference Range Facility Office Visiton 05-25-2023 Follow-up visit [id number] Abhinav Quezada 1950 F Date Provider Department Center 05/25/2023 DIONE GOMEZ Family History Problem Relation Age of Onset Hypertension Mother ALS Father Family Status - Relation Status Age at Mother Father Level of Service:54798 ID OFFICE/OUTPATIENT ESTABLISHED MOD MDM 30 MIN Normal [facility] Basic Metabolic Panelon 04-27 Anion gap [Moles/Vol] 12 mmol/L 9 - 17 mmol/L [facility] Calcium [Mass/Vol] 9.0 mg/dL 8.6 - 10. 4 mg/dL [facility] Chloride [Moles/Vol] 104 mmol/L 98 - 107 mmol/L [facility] CO2 [Moles/Vol] 25 mmol/L 20 - 31 mmol/L [facility] Creatinine [Mass/Vol] 0.5 mg/dL 0.5 - 0.9 mg/dL [facility] GFR/1.73 sq M.predicted MDRD (S/P/Bld) [Vol rate/Area] - PINF [facility] Comment on above: These results are not intended for use [...] following therapy that affects renal tubular secretion. Glucose [Mass/Vol] 105 mg/dL High 70 - 99 mg/dL [facility] Interpretation and review of laboratory results Abnormal [facility] Potassium [Moles/Vol] 4.4 mmol/L 3.7 - 5.3 mmol/L [facility] Sodium [Moles/Vol] 141 mmol/L 135 - 144 mmol/L [facility] Urea nitrogen [Mass/Vol] 14 mg/dL 8 - 23 mg/dL [facility] Urea nitrogen/Creatinine [Mass ratio] 28 mg/mg High 9 - 20 [facility] Basic Metabolic Profon Anion gap [Moles/Vol] 12 mmol/L Normal 9-17 [facility] Comment on above: Performed By: #### B MP, CBC #### [facility] [address] [place] [address] Skip Pitman: Lucas Pink MD #### GLYHGB #### [facility] [employer] [address] [place] [address] [id number] Skip Pitman: Chalo Rendon MD BUN/CRE Ratio 28 High 9-20 [facility] Comment on above: Performed By: #### B MP, CBC #### [facility] [address] [place] [address] Skip Pitman: Lucas Pink MD #### GLYHGB #### [facility] [employer] [facility] [place] [address] Skip Pitman: Chalo Rendon MD Calcium [Mass/Vol] 9.0 mg/dL Normal 8.6-10.4 [facility] Comment on above: Performed By: #### B MP, CBC #### [facility] [address] [place] [address] Skip Pitman: Lucas Pink MD #### GLYHGB #### [address] [address] Skip Pitman: Chalo Rendon MD Chloride [Moles/Vol] 104 mmol/L Normal 98-107 [facility] Comment on above: Performed By: #### B MP, CBC #### [facility] [address] [place] [address] Skip Pitman: Lucas Pink MD #### GLYHGB #### [address] [id number] Skip Pitman: Chalo Rendon MD CO2 [Moles/Vol] 25 mmol/L Normal 20-31 [facility] Comment on above: Performed By: #### B MP, CBC #### [facility] [address] [place] [address] Skip Pitman: Lucas Pink MD #### GLYHGB #### [address] [address] Skip Pitman: Chalo Rendon MD Creatinine [Mass/Vol] 0.5 mg/dL Normal 0.5-0.9 [facility] Comment on above: Performed By: #### B MP, CBC #### [facility] [address] [place] [address] Skip Pitman: Lucas Pink MD #### GLYHGB #### [address] [address] Skip Pitman: Chalo Rendon MD GFR/1.73 sq M.predicted among non-blacks MDRD (S/P/Bld) [Vol rate/Area] mL/min/{1.73_m2} Normal >60 [facility] Comment on above: Result Comment: These [...] renal tubular secretion. Performed By: #### B MP, CBC #### [facility] [address] [place] [address] Skip Pitman: Lucas Pink MD #### GLYHGB #### [address] [id number] Skip Pitman: Chalo Rednon MD Glucose [Mass/Vol] 105 mg/dL High 70-99 [facility] Comment on above: Performed By: #### B MP, CBC #### [facility] [address] [place] [address] Skip Pitman: Lucas Pink MD #### GLYHGB #### [address] [id number] Skip Pitman: Chalo Rendon MD Potassium [Moles/Vol] 4.4 mmol/L Normal 3.7-5.3 [facility] Comment on above: Performed By: #### B MP, CBC #### [facility] [address] [place] [address] Skip Pitman: Lucas Pink MD #### GLYHGB #### [address] [id number] Skip Pitman: Chalo Rendon MD Sodium [Moles/Vol] 141 mmol/L Normal 135-144 [facility] Comment on above: Performed By: #### B MP, CBC #### [facility] [address] [place] [address] Skip Pitman: Lucas Pink MD #### GLYHGB #### [address] [address] Skip Pitman: Chalo Rendon MD Urea nitrogen [Mass/Vol] 14 mg/dL Normal 8-23 [facility] Comment on above: Performed By: #### B MP, CBC #### [facility] [address] [place] [address] Skip Pitman: Lucas Pink MD #### GLYHGB #### [address] [address] Skip Pitman: Chalo Rendon MD CBCon 05-24-2023 Erythrocyte distribution width (RBC) [Ratio] 15.0 % High 11.8-14.4 [facility] Comment on above: Performed By: #### B MP, CBC #### [facility] [address] [place] [id number] Skip Pitman: Lucas Pink MD #### GLYHGB #### [address] [address] Skip Pitman: Chalo Rendon MD Hematocrit (Bld) [Volume fraction] 46.0 % Normal 36.3-47.1 [facility] Comment on above: Performed By: #### B MP, CBC #### [facility] [address] [place] [address] Skip Pitman: Lucas Pink MD #### GLYHGB #### [address] [address] Skip Pitman: Chalo Rendon MD Hemoglobin (Bld) [Mass/Vol] 15.4 g/dL High 11.9-15.1 [facility] Comment on above: Performed By: #### B MP, CBC #### [facility] [address] [place] [address] Skip Pitman: Lucas Pink MD #### GLYHGB #### [address] [address] Skip Pitman: Chalo Rendon MD MCH (RBC) [Entitic mass] 33.0 pg Normal 25.2-33.5 [facility] Comment on above: Performed By: #### B MP, CBC #### [facility] [address] [place] [id number] Skip Pitman: Lucas Pink MD #### GLYHGB #### [address] [address] Skip Pitman: Chalo Rendon MD MCHC (RBC) [Mass/Vol] 33.5 g/dL Normal 28.4-34.8 [facility] Comment on above: Performed By: #### B MP, CBC #### [facility] [address] [place] [address] Skip Pitman: Lucas Pink MD #### GLYHGB #### [address] [address] Skip Pitman: Chalo Rendon MD MCV (RBC) [Entitic vol] 98.5 fL Normal 82.6-102.9 [facility] Comment on above: Performed By: #### B MP, CBC #### [facility] [address] [place] [address] Skip Pitman: Lucas iPnk MD #### GLYHGB #### [address] [address] Skip Pitman: Chalo Rendon MD NRBC Automated 0.0 per 100 WBC Normal 0.0 [facility] Comment on above: Performed By: #### B MP, CBC #### [facility] [address] [place] [address] Skip Pitman: Lucas Pink MD #### GLYHGB #### [address] [address] Skip Pitman: Chalo Rendon MD Platelet mean volume (Bld) [Entitic vol] 11.6 fL Normal 8.1-13.5 [facility] Comment on above: Performed By: #### B MP, CBC #### [facility] [address] [place] [address] Skip Pitman: Lucas Pink MD #### GLYHGB #### [address] [address] Skip Pitman: Chalo Rendon MD Platelets (Bld) [#/Vol] 168 10*3/uL Normal 138-453 [facility] Comment on above: Performed By: #### B MP, CBC #### [facility] [address] [place] [address] Skip Pitman: Lucas Pink MD #### GLYHGB #### [address] [address] Skip Pitman: Chalo Rendon MD RBC (Bld) [#/Vol] 4.67 10*6/uL Normal 3.95-5.11 [facility] Comment on above: Performed By: #### B MP, CBC #### [facility] [address] [place] [address] Skip Pitman: Lucas Pink MD #### GLYHGB #### [address], [place] [id number] Skip Pitman: Chalo Rendon MD WBC (Bld) [#/Vol] 10.7 10*3/uL Normal 3.5-11.3 [facility] Comment on above: Performed By: #### B MP, CBC #### [facility] [address] [place], [place] [id number] Skip Pitman: Lucas Pink MD #### GLYHGB #### [facility] [address] [place], [place] [id number] Skip Pitman: Chalo Rendon MD Erythrocyte distribution width (RBC) [Ratio] 15.0 % High 11.8 - 14.4 % [facility] Hematocrit (Bld) [Volume fraction] 46.0 % 36.3 - 47.1 % [facility] Hemoglobin (Bld) [Mass/Vol] 15.4 g/dL High 11.9 - 15.1 g/dL [facility] Interpretation and review of laboratory results Abnormal [facility] MCH (RBC) [Entitic mass] 33.0 pg 25.2 - 33.5 pg [facility] MCHC (RBC) [Mass/Vol] 33.5 g/dL 28.4 - 34.8 g/dL [facility] MCV (RBC) [Entitic vol] 98.5 fL 82.6 - 102.9 fL [facility] Nucleated RBC/100 WBC (Bld) [Ratio] 0.0 % 0.0 per 100 WBC [facility] Platelet mean volume (Bld) [Entitic vol] 11.6 fL 8.1 - 13.5 fL [facility] Platelets (Bld) [#/Vol] 168 10*3/uL [facility] RBC (Bld) [#/Vol] 4.67 10*6/uL 3.95 - 5.1 1 m/uL [facility] WBC other (Bld) [#/Vol] 10.7 [facility] Hemoglobin A1Con 05-24-2023 Glucose [Mass/Vol] 140 mg/dL Normal [facility] Comment on above: Result Comment: The ADA and AACC recommend providing the estimated average glucose result to permit better patient understanding of their HBA1c result. Performed By: #### B MP, CBC #### [facility] [address] [place] [address] Skip Pitman: Lucas Pink MD #### GLYHGB #### [facility] [address] [place] [address] Skip Pitman: Chalo Rendon MD HbA1c (Bld) [Mass fraction] 6.5 % High 4.0-6.0 [facility] Comment on above: Performed By: #### B MP, CBC #### [facility] [address] [place] [address] Skip Pitman: Lucas Pink MD #### GLYHGB #### [facility] [address] [place] [address] Skip Pitman: Chalo Rendon MD Average glucose Estimated from glycated hemoglobin (Bld) [Mass/Vol] 140 mg/dL [facility] Comment on above: The ADA and AACC rec ommend providing the estimated average glucose result to permit better patient understanding of their HBA1c result. HbA1c (Bld) [Mass fraction] 6.5 % High 4.0 - 6.0 % [facility] Interpretation and review of laboratory results Abnormal [facility] Telemedicineon 04-19-2023 Telemedicine [id number] Abhinav Quezada W 1950 F Date Provider Department Center 04/19/2023 Sherri-DIONE CUEVAS [facility] Family History Problem Relation Age of Onset Hypertension Mother ALS Father Family Status - Relation Status Age at Mother Father Level of Service:71257 ID PHYS/QHP TELEPHONE EVALUATION 21-30 MIN Normal [facility] Orders Onlyon 04-11-2023 Orders Only [id number] Abhinav Quezada W 1950 F Date Provider Department Center 04/11/2023 KATHERINE BONSD CARD [facility] Family History Problem Relation Age of Onset Hypertension Mother ALS Father Family Status - Relation Status Age at Mother Father [facility] Documentationon 04-10-2023 Documentation [id number] Abhinav Quezada W 1950 Provider Department Center 04/10/2023 [id number] FENG [facility] Family History Problem Relation Age of Onset Hypertension Mother ALS Father Family Status - Relation Status Age at Mother Father Reason for Visit and Comments: HF inpatient satisfaction survey sent. [Other] [facility] 36on 04-08-2023 36 Discharge date: 04/05/23 [...] mail out reminder. No other questions. Aurora Mix PA-C [facility] Cardiovascular Medicine [phone] [facility] Telephoneon 04-08-2023 Telephone [id number] Abhinav Quezada W 1950 Provider Department Center 04/08/2023 [id number] MIX [facility] Family History Problem Relation Age of Onset Hypertension Mother ALS Father Family Status - Relation Status Age at Mother Father [facility] 30on 04-05-2023 30 Problem: Pain - [...] Goal: Maintains hematologic stability Outcome: Progressing Normal [facility] BASIC METABOLIC PANELon 03-26 Anion gap [Moles/Vol] 9 mmol/L Normal 7-20 [facility] Comment on above: Performed By: #### L [id number] ####[facility] (BEAKER)[address] [place] [address] Calcium [Mass/Vol] 9.0 mg/dL Normal 8.6-10.3 [facility] Comment on above: Performed By: #### L [id number] ####[facility] (BEAKER)[address] [place] [address] Chloride [Moles/Vol] 108 mmol/L High 98-107 [facility] Comment on above: Performed By: #### L [id number] ####[facility] (BEAKER)[address] [place] [address] CO2 [Moles/Vol] 27 mmol/L Normal 21-31 [facility] Comment on above: Performed By: #### L [id number] ####[facility] (BEAKER)[address] [place] [address] Creatinine [Mass/Vol] 0.54 mg/dL Low 0.60-1.20 [facility] Comment on above: Performed By: #### L [id number] ####[facility] (BEAKER)[address] [place] [address] GLOMERULAR FILTRATION RATE ML/MIN/1.73 SQ M.PREDICTED 97.8 mL/min/1.73m*2 Normal >60.0 [facility] Comment on above: Result Comment: The [facility]???s estimated glomerular filtration rate (eGFR) will no [...] of individuals. Performed By: #### L [id number] ####[facility] (BEAKER)[address] [place] [address] Glucose [Mass/Vol] 157 mg/dL High 70-100 [facility] Comment on above: Performed By: #### L [id number] ####[facility] (BEAKER)[address] [place] [address] Potassium [Moles/Vol] 4.3 mmol/L Normal 3.5-5.1 [facility] Comment on above: Performed By: #### L [id number] ####[facility] (BEAKER)[address] [place] [address] Sodium [Moles/Vol] 140 mmol/L Normal 136-145 [facility] Comment on above: Performed By: #### L [id number] ####[facility] ([facility])[address] [place] [address] Urea nitrogen [Mass/Vol] 30 mg/dL High 7-25 [facility] Comment on above: Performed By: #### L [id number] ####[facility] ([facility])[address] [place] [address] UREA NITROGEN/CREATININE (MASS RATIO) IN SER/PLAS 55.6 Normal [facility] Comment on above: Performed By: #### L [id number] ####[facility] ([facility])[address] [place] [address] CBCon 04-05-2023 Erythrocyte distribution width (RBC) [Ratio] 13.9 % Normal 11.5-15.0 [facility] Comment on above: Performed By: #### L [id number] #### [facility] ([facility]) [address] [place] [address] ERYTHROCYTE MEAN CORPUSCULAR HEMOGLOBIN CONCENTRATION (G/DL) BY AUTOMATED 34.1 g/dL Normal 32.0-35.0 [facility] Comment on above: Performed By: #### L [id number] #### [facility] ([facility]) [address] [place] [address] Hematocrit (Bld) [Volume fraction] 41.4 % Normal 36.0-48.0 [facility] Comment on above: Performed By: #### L [id number] #### [facility] ([facility]) [address] [place] [address] Hemoglobin (Bld) [Mass/Vol] 14.1 g/dL Normal 12.0-15.0 [facility] Comment on above: Performed By: #### L [id number] #### [facility] ([facility]) [address] [place] [address] MCH (RBC) [Entitic mass] 32.3 pg Normal 27.0-33.0 [facility] Comment on above: Performed By: #### L [id number] #### [facility] ([facility]) [address] [place] [address] MCV (RBC) [Entitic vol] 95.0 fL Normal 82.0-98.0 [facility] Comment on above: Performed By: #### L [id number] #### [facility] ([facility]) [address] [place] [address] PLATELETS (10*3/UL) IN BLOOD AUTOMATED COUNT 234 10*3/uL Normal 150-400 [facility] Comment on above: Performed By: #### L [id number] #### [facility] ([facility]) [address] [place] [address] RBC (Bld) [#/Vol] 4.36 10*6/uL Normal 3.80-5.00 [facility] Comment on above: Performed By: #### L [id number] #### [facility] ([facility]) [address] [place] [address] WBC (Bld) [#/Vol] 6.75 10*3/uL Normal 4.00-10.60 [facility] Comment on above: Performed By: #### L [id number] #### [facility] ([facility]) [address] [place] [address] MAGNESIUMon 04-05-2023 Magnesium [Mass/Vol] 1.6 mg/dL Low 1.9-2.7 [facility] Comment on above: Performed By: #### L [id number] #### [facility] ([facility]) [address] [address] NURSNOTEon 04-05-2023 NURSNOTE Percher notified hospitalist about blood pressure is 165/44 and her heart rate is 57. Patient was sleeping at the time. Hospitalist would like for contract technical writer to monitor the patient if the patient is asymptomatic. Normal [facility] POCT GLUCOSE METER UNSOLICIT ED RESULTSon 04-05-2023 Glucose [Mass/Vol] 198 mg/dL High 70-105 [facility] Comment on above: Order Comment: Waive d Testing in the ED is performed under the ED CLIA certificate #[id number]. Result Comment: wwar rad Performed By: #### L [id number] ####[facility] (BEAKER)[address] [place] [address] Glucose [Mass/Vol] 248 mg/dL High 70-105 [facility] Comment on above: Order Comment: Waive d Testing in the ED is performed under the ED CLIA certificate #[id number]. Result Comment: wwar rad Performed By: #### L [id number] #### [facility] (BEAKER) [address] [place] [address] Glucose [Mass/Vol] 141 mg/dL High 70-105 [facility] Comment on above: Order Comment: Waive d Testing in the ED is performed under the ED CLIA certificate #[id number]. Result Comment: wwar rad Performed By: #### L [id number] ####[facility] (AKER)[address] [place] [address] 30on 04-04-2023 30 Daily Case Managemen t Update Multidisciplinary rounds have been completed. Barriers to Discharge: from [place] elevated troponin and HF. Ischemic evaluation that [...] Select all services needed for the patient Snf Facility (30 day convalescent stay) Please indicate your approval for this care by adding your name here: SELENE LIZ 04/03/23 2338 Therapy Orders (From admission, onward) Start Ordered 04/04/23 1152 PT eval and treat Until therapy completed Question: Reason for PT? Answer: weakness 04/04/23 1151 04/04/23 1152 OT eval and treat Until therapy completed Question: Reason for OT? Answer: weakness 04/04/23 1151 Normal [facility] 30 Problem: Pain - Adul t Goal: [...] will verbalize decreased discomfort Outcome: Progressing Normal [facility] ANTI-XA (HEPARIN LEVEL)on HEPARIN UNFRACTIONATED (U/ML) IN PPP BY CHROMOGENIC METHOD 0.36 IU/mL Normal 0.3-0.7 [facility] Comment on above: Result Comment: Renuka roxaban and Apixaban will interfere with the anti Xa assay used to monitor UFH and LMWH. Performed By: #### L [id number] ####[facility] (BEAKER)[address] [place] [address] HEPARIN UNFRACTIONATED (U/ML) IN PPP BY CHROMOGENIC METHOD 0.18 IU/mL Low 0.3-0.7 [facility] Comment on above: Result Comment: Titus roxaban and Apixaban will interfere with the anti Xa assay used to monitor UFH and LMWH. Performed By: #### L [id number] #### [facility] (BEAKER) [address] [place] [address] HEPARIN UNFRACTIONATED (U/ML) IN PPP BY CHROMOGENIC METHOD 0.14 IU/mL Invalid Interpretation Code 0.3-0.7 [facility] Comment on above: Order Comment: Check anti-Xa level every 6 hours while on heparin infusion, or per protocol. Result Comment: Renuka roxaban and Apixaban will interfere with the anti Xa assay used to monitor UFH and LMWH. Performed By: #### L [id number] #### [facility] (BEAKER) [address] [place] [address] APTTon 04-04-2023 ACTIVATED PARTIAL THROMBOPLASTIN TIME IN PPP BY COAGULATION ASSAY 34.8 Seconds Normal 25.0-35.0 [facility] Comment on above: Order Comment: Basel ine aPTT before initiating heparin infusion. Result Comment: Clin ical significance of the APTT is questionable in the presence of heparin. Performed By: #### L [id number] #### [facility] ([facility]) [address] [place] [address] CONSULTon 04-04-2023 CONSULT -- Attestation signed by Claritza Bello MD at 04/04/2023 4:03 PM I personally saw and examined the patient on the same date of service as resident/fellow Dr Garza. I discussed the findings and therapeutic plan with the resident/fellow Dr Garza. I agree with the documentation, except for any edits/updates below. Teaching Physician's Revisions: Claritza Bello MD, MPH, [facility], [facility], [facility] Interventional Cardiology Pager Email: [email or web address] Cardiology Consult Note Reason for Consult: CHF exacerbation HPI: Mirna Quezada is a 72 y.o. female with a past medical history significant for CAD status post CABG (ALMARAZ to LAD, SVG to D1, and SVG to OM1) 2000, ischemic cardiomyopathy, COPD, hypertension, type 2 diabetes mellitus who originally presented to [facility] with cough and was found to have community acquired pneumonia and acute heart failure exacerbation. Patient was transferred from [facility] for cardiology evaluation for elevated troponin. Patient presented to [facility] 03/29/2023. Labs were significant for elevated WBC. [...] may recommended that patient be transferred to [facility] for evaluation for cardiac catheterization. Of note, [...] history of Coronary artery disease, Diabetes mellitus ([facility]), GERD (gastroesophageal reflux disease), Heart valve disease, [...] by mouth in the morning. HYDROcodone-acetaminop hen ([place]) 10-325 mg tablet Take 1 tablet by [...] the p (more content not included)... Normal [facility] NURSNOTEon 04-04-2023 NURSNOTE Percher phoned hospitalist to inform him that the patient blood pressure was 85/42 at 4:10 am and 101/46 at 4:20. Percher also let the hospitalist know that the patient was asymptomatic. Hospitalist would like for contract technical writer to keep a close eye on the patient and her blood pressure; call the hospitalist if any changes. Normal [facility] PLATELET COUNTon 04-04-2023 PLATELETS (10*3/UL) IN BLOOD AUTOMATED COUNT 242 10*3/uL Normal 150-400 [facility] Comment on above: Performed By: #### L [id number] #### [facility] ([facility]) [address] [place] [address] POCT GLUCOSE METER UNSOLICIT ED RESULTSon 04-04-2023 Glucose [Mass/Vol] 209 mg/dL High 70-105 [facility] Comment on above: Order Comment: Waive d Testing in the ED is performed under the ED CLIA certificate #[id number]. Result Comment: gregg zepeday Performed By: #### L [id number] ####[facility] ([facility])[address] [place] [address] Glucose [Mass/Vol] 188 mg/dL High 70-105 [facility] Comment on above: Order Comment: Waive d Testing in the ED is performed under the ED CLIA certificate #[id number]. Result Comment: wwar rad Performed By: #### L [id number] #### [facility] (BEAKER) [address] [place] [address] Glucose [Mass/Vol] 191 mg/dL High 70-105 [facility] Comment on above: Order Comment: Waive d Testing in the ED is performed under the ED CLIA certificate #[id number]. Result Comment: wwar rad Performed By: #### L [id number] ####[facility] ([facility])[address] [place] [address] Glucose [Mass/Vol] 248 mg/dL High 70-105 [facility] Comment on above: Order Comment: Waive d Testing in the ED is performed under the ED CLIA certificate #[id number]. Result Comment: wwar rad Performed By: #### L [id number] #### [facility] ([facility]) [address] [place] [address] Glucose [Mass/Vol] 142 mg/dL High 70-105 [facility] Comment on above: Order Comment: Waive d Testing in the ED is performed under the ED CLIA certificate #[id number]. Result Comment: swey er2 Critical Value Noted Performed By: #### L [id number] #### [facility] ([facility]) [address] [place] [address] TROPONIN Ion 04-04-2023 Troponin I.cardiac [Mass/Vol] 0.06 ng/mL High 0.00-0.04 [facility] Comment on above: Performed By: #### L [id number] #### [facility] ([facility]) [address] [place] [address] Troponin I.cardiac [Mass/Vol] 0.07 ng/mL High 0.00-0.04 [facility] Comment on above: Performed By: #### L [id number] #### [facility] ([facility]) [address] [place] [address] B-TYPE NATRIURETIC PEPTIDEon 04-03-2023 Natriuretic peptide B (Bld) [Mass/Vol] 138 pg/mL High 0-100 [facility] Comment on above: Performed By: #### L [id number] ####[facility] ([facility])[address] [place] [address] CBC WITH AUTO DIFFERENTIALon 04-03-2023 Basophils (Bld) [#/Vol] 0.06 10*3/uL Normal 0.00-0.20 [facility] Comment on above: Performed By: #### L [id number] #### [facility] ([facility]) [address] [place] [address] Basophils/100 WBC (Bld) 0.8 % Normal 0.0-1.0 [facility] Comment on above: Performed By: #### L [id number] #### [facility] (BEAKER) [address] [place] [address] Eosinophils (Bld) [#/Vol] 0.15 10*3/uL Normal 0.00-0.50 [facility] Comment on above: Performed By: #### L [id number] #### [facility] (BEAKER) [address] [place] [address] Eosinophils/100 WBC (Bld) 1.9 % Normal 0.0-6.0 [facility] Comment on above: Performed By: #### L [id number] #### [facility] ([facility]) [address] [place] [address] Erythrocyte distribution width (RBC) [Ratio] 14.2 % Normal 11.5-15.0 [facility] Comment on above: Performed By: #### L [id number] #### [facility] ([facility]) [address] [place] [address] ERYTHROCYTE MEAN CORPUSCULAR HEMOGLOBIN CONCENTRATION (G/DL) BY AUTOMATED 33.4 g/dL Normal 32.0-35.0 [facility] Comment on above: Performed By: #### L [id number] #### [facility] (BEAKER) [address] [place] [address] Hematocrit (Bld) [Volume fraction] 44.3 % Normal 36.0-48.0 [facility] Comment on above: Performed By: #### L [id number] #### [facility] (BEAKER) [address] [place] [address] Hemoglobin (Bld) [Mass/Vol] 14.8 g/dL Normal 12.0-15.0 [facility] Comment on above: Performed By: #### L [id number] #### [facility] (BEAKER) [address] [place] [address] Immature granulocytes (Bld) [#/Vol] 0.06 10*3/uL Normal 0.00-0.20 [facility] Comment on above: Performed By: #### L [id number] #### [facility] ([facility]) [address] [place] [address] Immature granulocytes/100 WBC (Bld) 0.8 % Normal 0.0-1.0 [facility] Comment on above: Performed By: #### L [id number] #### [facility] ([facility]) [address] [place] [address] Lymphocytes (Bld) [#/Vol] 2.57 10*3/uL Normal 1.20-4.00 [facility] Comment on above: Performed By: #### L [id number] #### [facility] ([facility]) [address] [place] [address] Lymphocytes/100 WBC (Bld) 32.2 % Normal 20.0-45.0 [facility] Comment on above: Performed By: #### L [id number] #### [facility] ([facility]) [address] [place] [address] MCH (RBC) [Entitic mass] 32.2 pg Normal 27.0-33.0 [facility] Comment on above: Performed By: #### L [id number] #### [facility] ([facility]) [address] [address] MCV (RBC) [Entitic vol] 96.3 fL Normal 82.0-98.0 [facility] Comment on above: Performed By: #### L [id number] #### [facility] ([facility]) [address] [place] [address] Monocytes (Bld) [#/Vol] 0.79 10*3/uL Normal 0.10-1.00 [facility] Comment on above: Performed By: #### L [id number] #### [facility] ([facility]) [address] [place] [address] Monocytes/100 WBC (Bld) 9.9 % Normal 5.0-12.0 [facility] Comment on above: Performed By: #### L [id number] #### [facility] ([facility]) [address] [place] [address] Neutrophils (Bld) [#/Vol] 4.36 10*3/uL Normal 1.60-7.60 [facility] Comment on above: Performed By: #### L [id number] #### [facility] ([facility]) [address] [place] [address] Neutrophils/100 WBC (Bld) 54.4 % Normal 40.0-72.0 [facility] Comment on above: Performed By: #### L [id number] #### [facility] ([facility]) [address] [place] [address] PLATELETS (10*3/UL) IN BLOOD AUTOMATED COUNT 254 10*3/uL Normal 150-400 [facility] Comment on above: Performed By: #### L [id number] #### [facility] ([facility]) [address] [place] [address] RBC (Bld) [#/Vol] 4.60 10*6/uL Normal 3.80-5.00 [facility] Comment on above: Performed By: #### L [id number] #### [facility] ([facility]) [address] [place] [address] WBC (Bld) [#/Vol] 7.99 10*3/uL Normal 4.00-10.60 [facility] Comment on above: Performed By: #### L [id number] #### [facility] ([facility]) [address] [place] [address] COMPREHENSIVE METABOLIC PANE Gaurav 04-03-2023 Albumin [Mass/Vol] 3.8 g/dL Normal 3.5-5.7 [facility] Comment on above: Performed By: #### L [id number] #### [facility] ([facility]) [address] [place] [address] ALP [Catalytic activity/Vol] 73 U/L Normal 34-104 [facility] Comment on above: Performed By: #### L [id number] #### [facility] ([facility]) [address] [place] [address] ALT [Catalytic activity/Vol] 15 U/L Normal 7-52 [facility] Comment on above: Performed By: #### L [id number] #### [facility] ([facility]) [address] [place] [address] Anion gap [Moles/Vol] 14 mmol/L Normal 7-20 [facility] Comment on above: Performed By: #### L [id number] #### [facility] ([facility]) [address] [place] [address] AST [Catalytic activity/Vol] 25 U/L Normal 13-39 [facility] Comment on above: Performed By: #### L [id number] #### [facility] ([facility]) [address] [place] [address] Bilirubin [Mass/Vol] 0.3 mg/dL Normal 0.3-1.0 [facility] Comment on above: Performed By: #### L [id number] #### [facility] ([facility]) [address] [place] [address] Calcium [Mass/Vol] 9.6 mg/dL Normal 8.6-10.3 [facility] Comment on above: Performed By: #### L [id number] #### [facility] ([facility]) [address] [place] [address] Chloride [Moles/Vol] 104 mmol/L Normal 98-107 [facility] Comment on above: Performed By: #### L [id number] #### [facility] ([facility]) [address] [place] [address] CO2 [Moles/Vol] 27 mmol/L Normal 21-31 [facility] Comment on above: Performed By: #### L [id number] #### [facility] ([facility]) [address] [place] [address] Creatinine [Mass/Vol] 0.65 mg/dL Normal 0.60-1.20 [facility] Comment on above: Performed By: #### L [id number] #### [facility] ([facility]) [address] [place] [address] GLOMERULAR FILTRATION RATE ML/MIN/1.73 SQ M.PREDICTED 93.5 mL/min/1.73m*2 Normal >60.0 [facility] Comment on above: Result Comment: The [facility]'s estimated glomerular filtration rate (eGFR) will no [...] individuals. Performed By: #### L [id number] #### [facility] ([facility]) [address] [place] [address] Glucose [Mass/Vol] 120 mg/dL High 70-100 [facility] Comment on above: Performed By: #### L [id number] #### [facility] ([facility]) [address] [place] [address] Potassium [Moles/Vol] 4.1 mmol/L Normal 3.5-5.1 [facility] Comment on above: Performed By: #### L [id number] #### [facility] ([facility]) [address] [place] [address] Protein [Mass/Vol] 6.7 g/dL Normal 6.0-8.3 [facility] Comment on above: Performed By: #### L [id number] #### [facility] ([facility]) [address] [place] [address] Sodium [Moles/Vol] 141 mmol/L Normal 136-145 [facility] Comment on above: Performed By: #### L [id number] #### [facility] ([facility]) [address] [place] [address] Urea nitrogen [Mass/Vol] 32 mg/dL High 7-25 [facility] Comment on above: Performed By: #### L [id number] #### [facility] ([facility]) [address] [place] [address] UREA NITROGEN/CREATININE (MASS RATIO) IN SER/PLAS 49.2 Normal [facility] Comment on above: Performed By: #### L [id number] #### [facility] ([facility]) [address] [place] [address] MAGNESIUMon 04-03-2023 Magnesium [Mass/Vol] 1.2 mg/dL Low 1.9-2.7 [facility] Comment on above: Performed By: #### L [id number] ####[facility] ([facility])[address] [place] [address] PHOSPHORUSon 04-03-2023 Magnesium [Mass/Vol] 3.6 mg/dL Normal 2.5-5.0 [facility] Comment on above: Performed By: #### L [id number] ####[facility] ([facility])[address] [place] [address] PROTIME-INRon 04-03-2023 INR IN PPP BY COAGULATION ASSAY 1.00 Normal 0.90-1.10 [facility] Comment on above: Result Comment: ACCC P [...] 1995;[id number]. Performed By: #### L [id number] #### [facility] ([facility]) [address] [place] [address] PROTHROMBIN TIME (PT) IN PPP BY COAGULATION ASSAY 13.2 Seconds Normal 12.3-14.8 [facility] Comment on above: Performed By: #### L [id number] #### [facility] ([facility]) [address] [place] [address] TROPONIN Ion 04-03-2023 Troponin I.cardiac [Mass/Vol] 0.10 ng/mL High 0.00-0.04 [facility] Comment on above: Performed By: #### L [id number] #### [facility] ([facility]) [address] [place] [address] BUN + Creatinineon 3 Creatinine [Mass/Vol] 0.5 mg/dL Normal 0.5-0.9 [facility] Comment on above: Performed By: #### B UNCRT, CBC, GLU, LYTE #### [employer] [address] [place], [place] [id number] Skip Pitman: Chalo Rendon MD GFR/1.73 sq M.predicted among non-blacks MDRD (S/P/Bld) [Vol rate/Area] mL/min/{1.73_m2} Normal >60 [facility] Comment on above: Result Comment: These [...] #### B UNCRT, CBC, GLU, LYTE #### [employer] [address] [place] [address] Skip Pitman: Chalo Rendon MD Urea nitrogen [Mass/Vol] 14 mg/dL Normal 8-23 [facility] Comment on above: Performed By: #### B UNCRT, CBC, GLU, LYTE #### [address] [address] Skip Pitman: Chalo Rendon MD CBCon 02-02-2023 Erythrocyte distribution width (RBC) [Ratio] 14.3 % Normal 11.8-14.4 [facility] Comment on above: Performed By: #### B UNCRT, CBC, GLU, LYTE #### [address] [address] Skip Pitman: Chalo Rendon MD Hematocrit (Bld) [Volume fraction] 47.5 % High 36.3-47.1 [facility] Comment on above: Performed By: #### B UNCRT, CBC, GLU, LYTE #### [facility] [employer] [address] [place] [address] Skip Pitman: Chalo Rendon MD Hemoglobin (Bld) [Mass/Vol] 16.5 g/dL High 11.9-15.1 [facility] Comment on above: Performed By: #### B UNCRT, CBC, GLU, LYTE #### [facility] [employer] [address] [place] [address] Skip Pitman: Chalo Rendon MD MCH (RBC) [Entitic mass] 33.7 pg High 25.2-33.5 [facility] Comment on above: Performed By: #### B UNCRT, CBC, GLU, LYTE #### [address] [address] Skip Pitman: Chalo Rendon MD MCHC (RBC) [Mass/Vol] 34.7 g/dL Normal 28.4-34.8 [facility] Comment on above: Performed By: #### B UNCRT, CBC, GLU, LYTE #### [address] [address] Skip Pitman: Chalo Rendon MD MCV (RBC) [Entitic vol] 97.1 fL Normal 82.6-102.9 [facility] Comment on above: Performed By: #### B UNCRT, CBC, GLU, LYTE #### [address] [address] Skip Pitman: Chalo Rendon MD NRBC Automated 0.0 per 100 WBC Normal 0.0 [facility] Comment on above: Performed By: #### B UNCRT, CBC, GLU, LYTE #### [address] [address] Skip Pitman: Chalo Rendon MD Platelet mean volume (Bld) [Entitic vol] 12.3 fL Normal 8.1-13.5 [facility] Comment on above: Performed By: #### B UNCRT, CBC, GLU, LYTE #### [address] [address] Skip Pitman: Chalo Rendon MD Platelets (Bld) [#/Vol] 149 10*3/uL Normal 138-453 [facility] Comment on above: Performed By: #### B UNCRT, CBC, GLU, LYTE #### [address] [address] Skip Pitman: Chalo Rendon MD RBC (Bld) [#/Vol] 4.89 10*6/uL Normal 3.95-5.11 [facility] Comment on above: Performed By: #### B UNCRT, CBC, GLU, LYTE #### [address] [address] Skip Pitman: Chalo Rendon MD WBC (Bld) [#/Vol] 8.8 10*3/uL Normal 3.5-11.3 [facility] Comment on above: Performed By: #### B UNCRT, CBC, GLU, LYTE #### [facility] [employer] [address] [place] [address] Skip Pitman: Chalo Rendon MD Electrolyteson 02-02-2023 Anion gap [Moles/Vol] 10 mmol/L Normal 9-17 [facility] Comment on above: Performed By: #### B UNCRT, CBC, GLU, LYTE #### [facility] [employer] [address] [place] [address] Skip Pitman: Chalo Rendon MD Chloride [Moles/Vol] 104 mmol/L Normal 98-107 [facility] Comment on above: Performed By: #### B UNCRT, CBC, GLU, LYTE #### [address] [address] Skip Pitman: Chalo Rendon MD CO2 [Moles/Vol] 24 mmol/L Normal 20-31 [facility] Comment on above: Performed By: #### B UNCRT, CBC, GLU, LYTE #### [facility] [employer] [address] [place] [address] Skip Pitman: Chalo Rendon MD Potassium [Moles/Vol] 4.2 mmol/L Normal 3.7-5.3 [facility] Comment on above: Performed By: #### B UNCRT, CBC, GLU, LYTE #### [facility] [employer] [address] [place] [address] Skip Pitman: Chalo Rendon MD Sodium [Moles/Vol] 138 mmol/L Normal 135-144 [facility] Comment on above: Performed By: #### B UNCRT, CBC, GLU, LYTE #### [facility] [employer] [address] [place] [address] Skip Pitman: Chalo Rendon MD Glucoseon 02-02-2023 Glucose [Mass/Vol] 127 mg/dL High 70-99 [facility] Comment on above: Performed By: #### B UNCRT, CBC, GLU, LYTE #### [address] [address] Skip Pitman: Chalo Rendon MD Office Visiton 10-31-2022 Follow-up visit [id number] Abhinav Quezada 1950 F Date Provider Department Center 10/31/2022 [id number]-YSOGRPBYTROSANA MIKE CARD [facility] Family History Problem Relation Age of Onset Hypertension Mother ALS Father Family Status - Relation Status Age at Mother Father Level of Service:65449 ID OFFICE/OUTPATIENT NEW MODERATE MDM 45-59 MINUTES Normal [facility] Hemoglobin A1Con 10-27-2022 Glucose [Mass/Vol] 157 mg/dL Normal [facility] Comment on above: Result Comment: The ADA and AACC recommend providing the estimated average glucose result to permit better patient understanding of their HBA1c result. Performed By: #### C RUBEN, BMP #### [facility] [address] [place] [address] Skip Pitman: Lucas Pink MD #### GLYHGB #### [facility] [employer] [address] [place] [id number] Skip Pitman: Chalo Rendon MD HbA1c (Bld) [Mass fraction] 7.1 % High 4.0-6.0 [facility] Comment on above: Performed By: #### C RUBEN, BMP #### [facility] [address] [place] [address] Skip Pitman: Lucas Pink MD #### GLYHGB #### [address] [place] [address] Skip Pitman: Chalo Rendon MD Basic Metabolic Profon 10-26 Anion gap [Moles/Vol] 9 mmol/L Normal 9-17 [facility] Comment on above: Performed By: #### C BC, BMP #### [facility] [address] [place] [address] Skip Pitman: Lucas Pink MD #### GLYHGB #### [address] [address] Skip Pitman: Chalo Rendon MD BUN/CRE Ratio 27 High 9-20 [facility] Comment on above: Performed By: #### C BC, BMP #### [facility] [address] [place] [address] Skip Pitman: Lucas Pink MD #### GLYHGB #### [address] [address] Skip Pitman: Chalo Rendon MD Calcium [Mass/Vol] 8.8 mg/dL Normal 8.6-10.4 [facility] Comment on above: Performed By: #### C BC, BMP #### [facility] [address] [place] [address] Skip Pitman: Lucas Pink MD #### GLYHGB #### [address] [address] Skip Pitman: Chalo Rendon MD Chloride [Moles/Vol] 105 mmol/L Normal 98-107 [facility] Comment on above: Performed By: #### C BC, BMP #### [facility] [address] [place] [address] Skip Pitman: Lucas Pink MD #### GLYHGB #### [address] [address] Skip Pitman: Chalo Rendon MD CO2 [Moles/Vol] 27 mmol/L Normal 20-31 [facility] Comment on above: Performed By: #### C BC, BMP #### [facility] [address] [place] [address] Skip Pitman: Lucas Pink MD #### GLYHGB #### [address] [place] [address] Skip Pitman: Chalo Rendon MD Creatinine [Mass/Vol] 0.6 mg/dL Normal 0.5-0.9 [facility] Comment on above: Performed By: #### C BC, BMP #### [facility] [address] [place] [address] Skip Pitman: Lucas Pink MD #### GLYHGB #### [address] [id number] Skip Pitman: Chalo Rendon MD GFR/1.73 sq M.predicted among non-blacks MDRD (S/P/Bld) [Vol rate/Area] mL/min/{1.73_m2} Normal >60 [facility] Comment on above: Result Comment: These [...] affects renal tubular secretion. Performed By: #### C RUBEN, BMP #### [facility] [address] [place] [address] Skip Pitman: Lucas Pink MD #### GLYHGB #### [address] [address] Skip Pitman: Chalo Rendon MD Glucose [Mass/Vol] 134 mg/dL High 70-99 [facility] Comment on above: Performed By: #### C RUBEN, BMP #### [facility] [address] [place] [address] Skip Pitman: Lucas Pink MD #### GLYHGB #### [address] [address] Skip Pitman: Chalo Rendon MD Potassium [Moles/Vol] 4.3 mmol/L Normal 3.7-5.3 [facility] Comment on above: Performed By: #### C BC, BMP #### [facility] [address] [place] [address] Skip Pitman: Lucas Pink MD #### GLYHGB #### [address] [address] Skip Pitman: Chalo Rendon MD Sodium [Moles/Vol] 141 mmol/L Normal 135-144 [facility] Comment on above: Performed By: #### C BC, BMP #### [facility] [address] [place] [address] Skip Pitman: Lucas Pink MD #### GLYHGB #### [address] [address] Skip Pitman: Chalo Rendon MD Urea nitrogen [Mass/Vol] 16 mg/dL Normal 8-23 [facility] Comment on above: Performed By: #### C BC, BMP #### [facility] [address] [place] [address] Skip Pitman: Lucas Pink MD #### GLYHGB #### [address] [address] Skip Pitman: Chalo Rendon MD CBCon 10-26-2022 Erythrocyte distribution width (RBC) [Ratio] 13.7 % Normal 11.8-14.4 [facility] Comment on above: Performed By: #### C BC, BMP #### [facility] [address] [place] [address] Skip Pitman: Lucas Pink MD #### GLYHGB #### [address] [address] Skip Pitman: Chalo Rendon MD Hematocrit (Bld) [Volume fraction] 47.2 % High 36.3-47.1 [facility] Comment on above: Performed By: #### C BC, BMP #### [facility] [address] [place] [address] Skip Pitman: Lucas Pink MD #### GLYHGB #### [address] [address] Skip Pitman: Chalo Rendon MD Hemoglobin (Bld) [Mass/Vol] 15.9 g/dL High 11.9-15.1 [facility] Comment on above: Performed By: #### C BC, BMP #### [facility] [address] [place] [address] Skip Pitman: Lucas Pink MD #### GLYHGB #### [address] [address] Skip Pitman: Chalo Rendon MD MCH (RBC) [Entitic mass] 33.5 pg Normal 25.2-33.5 [facility] Comment on above: Performed By: #### C BC, BMP #### [facility] [address] [place] [address] Skip Pitman: Lucas Pink MD #### GLYHGB #### [address] [address] Skip Pitman: Chalo Rendon MD MCHC (RBC) [Mass/Vol] 33.7 g/dL Normal 28.4-34.8 [facility] Comment on above: Performed By: #### C BC, BMP #### [facility] [address] [place] [address] Skip Pitman: Lucas Pink MD #### GLYHGB #### [address] [address] Skip Pitman: Chalo Rendon MD MCV (RBC) [Entitic vol] 99.6 fL Normal 82.6-102.9 [facility] Comment on above: Performed By: #### C BC, BMP #### [facility] [address] [place] [address] Skip Pitman: Lucas Pink MD #### GLYHGB #### [address] [id number] Skip Pitman: Chalo Rendon MD NRBC Automated 0.0 per 100 WBC Normal 0.0 [facility] Comment on above: Performed By: #### C BC, BMP #### [facility] [address] [place] [address] Skip Pitman: Lucas Pink MD #### GLYHGB #### [address] [address] Skip Pitman: Chalo Rendon MD Platelet mean volume (Bld) [Entitic vol] 12.0 fL Normal 8.1-13.5 [facility] Comment on above: Performed By: #### C BC, BMP #### [facility] [address] [place] [address] Skip Pitman: Lucas Pink MD #### GLYHGB #### [address] [address] Skip Pitman: Chalo Rendon MD Platelets (Bld) [#/Vol] 141 10*3/uL Normal 138-453 [facility] Comment on above: Performed By: #### C BC, BMP #### [facility] [place] [address] Skip Pitman: Lucas Pink MD #### GLYHGB #### [address] [address] Skip Pitman: Chalo Rendon MD RBC (Bld) [#/Vol] 4.74 10*6/uL Normal 3.95-5.11 [facility] Comment on above: Performed By: #### C RUBEN, BMP #### [facility] [address] [place] [address] Skip Pitman: Lucas Pink MD #### GLYHGB #### [address] [address] Skip Pitman: Chalo Rendon MD WBC (Bld) [#/Vol] 9.4 10*3/uL Normal 3.5-11.3 [facility] Comment on above: Performed By: #### Lali MIRANDA, BMP #### [facility] [address] [place] [address] Skip Pitman: Lucas Pink MD #### GLYHGB #### [address] [address] Skip Pitman: Chalo Rendon MD MRI LSPINE WO CONon 06-29-19 23 MRI LSPINE WO CON EXAM: MRI of the lumbar [...] by: GARRET BENJAMIN Date: 2022-06-28 07:23 Normal [facility] US CAROTID ART BILon 10-28-2 022 US [...] by: CHARY AWAD Date: 2022-01-20 17:33 Normal [facility] Consent Formson 01-18-2022 Consent Forms [id number] OTGTIFF Normal [facility] CREATININEon 01-16-2022 Creatinine [Mass/Vol] 0.66 mg/dL Normal 0.55-1.02 [facility] Comment on above: Performed By: #### C RUFINO #### [facility] [address] [address] [address] Deborah Solorio EGFR-AF WELSH >60 Normal >=60 [facility] Comment on above: Performed By: #### C RUFINO #### [facility] [address] [address] [address] Deborah Solorio EGFR-NON AF WELSH >60 Normal >=60 [facility] Comment on above: Performed By: #### C RUFINO #### [facility] [address] [place] [address] Dr. Deborah Solorio CTA ABD ASHLEY WWO [...] by: BLAYNE CALDERÓN Date: 2022-01-16 19:35 Normal [facility] Coding Summaryon 01-11-2022 Coding Summary HTMLBase 64 CzbuxnfkGOy4xTa+PGhlYW Q+FL2SCSGcD94shACtkW5Z P6kVZW1QNNTLQDUFUA0BAR 7fqNG1COnxQ9GcvbKe SwiqeSSuTT34SRp7YQV2wZ piELchwO8klVRqW1k9LaRg SP04vA72NFguXBGgWpU3Zd ZpbjsgbWFy P2gkGrTswWFmBhv+PHRhYm xlIHdpZHRoPScxMDAlJyBz eZzfHP9qNf0hSIXrDRSlmW xhcHNlOiBj t4rlXLJxYTesEQ4ngOmeF7 GqqYX7KGEtn9q2Lw70xHL+ QUCwHFH3nGgkFFzzl775Xd Nzb4mlGLO4 aYRlYLyeDCY9Y49ns8W7UW BgOKQdZSQ6tMX6jT1txFdq lrkhX8RxzZAuWhK2WPS0tF QrwT1yfNvd bgtdmO6sJqp+G63MHW6XAQ LGMU4ADlp5D9WjVomrrVK+ BL91GZCgYI45uJIpvYXfs5 xssDp6OvKc ERBbZNT4tHmdGLjnt4VeCR UzZ31ruQYwc1Q7YLIsoCpz gCZxGyNuhIM5eL9pHZrcuc uyf9mteiwd Aothg0qdiy82nJ31S09vTY qrZGXeKKR5YAZoXVEghCie ls1ljU2tOs5+VLsmw8ngu7 cmmPx3JfSh QLStmxVdnTbpWCP5w7UxNc 13E6NkhAzuv3LgGze3qw43 gPCgu7G8zEE6QIgaFTNgvS 8gCSkcBpA2 HAUvGwIowS52yOEzJNzyTu 5jfIenkBaoPX0oRIQtnyza FRAgtK9uLKCuiESjeWcnOC 4wNTBpbjtm b622XsArLHS8YXAtxKElO8 ImlS5yLzSlCURxHHMcQ2Cd vEZvDRztQ472HTilAbD9LM BmjbKdV3Ud DAHajJutTdA5w6C3Rh0Ki9 TwucpjHZP3SApeCFQiItF7 LeNoOqT7B3ImBeu3PGVtwR kfNU8pS1Hp TBXszwuhcouvhZQ2KBOxXQ EcrO68xAWcHFzmLe3oi7K3 y257ZKKqJPVkdW43Dh4vdF ogMTBwdCBU kB4tpnkzm0kasjjsXgDdPJ HkZJe5MMr8BZDgdIokTnKo ROF4VtE1UJX4tUYccX3hzV inpveqqL4s Oyc+R92wlK1iFPM9JIV7fy fnXXDjyvWyXQ56ZV52S5Jb PjwvdGFibGU+PGRpdiBzdH jjEG4zFvEl l0sbj5WrBWxdY2GyXIQqWQ vfWxx5GPWrPBO4dIH2oI3o WXCzKXbak0D2qWU9X3Loeg Hpnt9xf0ki YUAxSPngS75leLIql4O7LT BkbLC4XVPtmVgoLeDmjC81 Oyc+SYVlvPznr8IyXtell7 tga4bniAc6 RuVbPAKamdOluAjrUXX2j2 MxYp64G96pUMjnLIPjSUEf ZHKqTIAaoQpqug8ruZ9uCv 8+PGNvbCB3 nTK7pI5nGSLxPrC2VUwhO7 96SaQkeHNbCskao2uym7vc pAs2FyWoLNObyyWywJjuVM I4b4RqPr21 F59zOCldGFCvYTZeIWAlFX JqxJmoyy0hlS9xEa2+PC9j o5zbzd00eC24qEA+PHRkIH K3rWstRMqa GKArmO0wRCmbUtE9POMhVq EemL42mFDfFUaxUv3duLnn hAauTC0mJGPgumhnl384Xa Zcy8uyNMPq sDZhSWxvNZH4N22pi3J1MB TzCUThFYZ7gTW1bD3fgZkv bjogbGVmdDsgdmVydGljYW loKEyeR621 IHRvcDsnPlBhdGllbnQgTm RwFGi9K7VxBxl4NJXndUrg YW0ftSLdMTdaJn3qrNtbiO owGU4tDMSu fsuwr830WeMoq5hdSVMboS IdKKpgGWH3U02nh0R7OWKv RCXhNCU2cFA4iB8yeLjlpl ogbGVmdDsg fgJerHiiFUwuTMmzC762JG RvcDsnPkJpcnRoIERhdGU6 QT31JB60aQTfn7W9pGF2M2 BhZGRpbmct pdsicVU0ZIVoSBSmkZ12Ci 0zcKakXh0kXCPyXWO3RSDc fCVzH3OwfO1aJkJjTODhWX JxK3UvoQOr JZzlI237NUemOyX9RDSupo SwD6XqOZMxxOcnYcM4t5J0 Lg0IT1J8DX20VQ62qZEfk6 K1fXY7O0Yc TVPejmxbxqapgCP7YZIiMA FldW45So7vdOkiIx2fUAQz QFF7VWVzoLMjY1GhoY1yJw AjMDAwMDAw D2GvfJHlZQimW375KSibNh O1CMOnqcWjH3QqUYFhpWei OqU5d7U2Ec4FLQh0OV55FP 40lODhw9K8 eCO5B0KzKWIgdxwhfiegxH A7WRRzAMQufV86Xt5ofBpb Yg4iUWMyRSM5RJXciYKnY6 MnkD6cThUt AJUkUPWuQ1OvoWLgBBjxB1 66QTqeGmD1UPPbimRtU3Mo XLDklHoqTtW7q0W0Cd9YNZ UhKL47LXP1 xCS5MO18VL11E6QdGulhsD FibGU+PHRhYmxlIHdpZHRo OKjoRDRlQtCwfXqcUI3mKg 9yZGVyLWNv oLwfdXMkZqAlt2kwTLVbBF lcIO5xgVsuX9MibYY4AOAl m4i7Ij30Z93bC2IwyLZ+PG OqeXE3zOV6 bK1zPrMoEmV5EPybL577Ff ZbzYNeSzimn4oep5mqdZh0 MfL0TOSjoeGulLahFAF3y4 YlLs84O82n IHdpZHRoPSIxNSUiIHZhbG fdyy0eaG6wOj5+PGNvbCB3 jDU2iV3gAwFuZvR4YVzmP7 49InRvcCIv Vlzvy2odq1qsgFu6MvGwIK ZbrbDxuGudLQN2d8UeDg52 A2WiwFkqn5IhIjy4wt92pO Fly0Z8lJQ9 K4RaUWSensikaZCqoBreKC 4rLHGuueylATKqgB0tHGKm M6u5NdIjWqG3VGpbH9Oeag Z2OURedWLd RAirOYT3B06bu0K7OTSxIY TjNSQ8dIL1qS3jfNrvakoi bGVmdDsgdmVydGljYWwtYW bxS427OJKw cBqrUYZuiD0sWNGlbIHabH uqGS5yGBYxlmygTtLPUAwZ LCBCUkVOREEgVzwvdGQ+PH HuCXW2wRbb EPixZBOctM7yWYBzS5p4Bw SxIxY9NUzdJ5WhKURyavax Do95yL4tVmJbKpP5KFibE8 KfmqI4HYEy yMLuXPpwDUV1Y80hc0C9EU EdCQErVDT6gXQ3zV6bzLhm bjogbGVmdDsgdmVydGljYW kcRRkaQ922 UDPviGgfDrC4KsM6YrQ0RZ K6R9MhBea1QSTjxItdLT4z tHTbZJprCe0xlAgujVgqSP 4wNTBpbjtw GGQdeE7kWAHnwOOjbAexAV 5sLNVbznrhn261TtIwIOG8 OFBljQItW5PmhK8yOnXcVG HlDOTrY8Zb dCPsXBguJ384MSkqOvA4QY UzerJjH0PjTWNsnNhwJcH0 d4M9Vk23OTZINFYybihjbK Q+PHRkIHN0 qVldMBsuHXJisE8oSBExH0 t2XmYxNiS7QWxmF2VuZBLw qovyOi41bS5uKuZrJnK4XM htU2PgecN1 AHSxzUPpWJfzEBY9H41ed1 L6MUPaTLYtRZB2vTL3vW1b bGlnbjogbGVmdDsgdmVydG ljYWwtYWxp I552ESIibKhqBgXGBBSWIH wvdGQ+CTDlRLR3iAdxQKhh HTLkrT9cTLTiS8b6OwSwAs F0IAhdL7Cd YSDolhttYw30gX9oRnRrEx D1SVwkY1LqqvM9NEOvrHCn YUleGCF5J50bz6G4HZLfNR VoRXM6gYK4 qD6dgUwnfzqirLPnoEqgjb AohAffAYxqYRheV586XYSq wZgwBhTpiUBBvQBgERB5TV 01VT87O7Rf PjwvdGFibGU+PHRhYmxlIH dpZHRoPScxMDAlJyBzdHls XK3sTb2rSVSbIYSdtBecuD AvTkCvc7me ANYzENyjDT7zcWfvV8DcsE Z7YGMko6t4Vi68L47sY6Ib dXA+JKLztNA9uTC1wU1eYt UuBrY1HRkx E605UcDadFQkIxzbb6amx4 jomAr6JbFoLIFeyqLhnMzd ANT9w2ApGa55Q09yQLelDI RoPSIyMCUi DYJznVqkhv9krV0sVv1+PG DpzQD1dVD9fP2lZvZuWgT0 LUzpE590UoYlwUXmAgpvW8 8rD5KmeOS+ GLMmRbd7RMIbrJsuLK7gjH FoUHpmPy0dWHY8PuWrKuJw MRlmQ9OiFLTgzwekeifysN E5WSKaQCZb vU99My8gpBkbYy3uGUAvCE W0UOSwfSKjK9LpkA8dWhGj EROzKNFfA8AqqKEgGPsqK3 64ZFgfHhK2 BILmomExN6ClXNGhnZgvUl X4k1D6Kv0DjDmkgTDtSI7y LkIiZPx1M8AcFje2QBUbcV tgPE4qlDBa UDwrXo2kaBzqrFphBZ1lJX Qirktjd084HxDiz5meDENz sDGwLOioBSW0I07zd4D1DL MwMDAwMDA7 tZG7tR9bcLloxpuisKWnkP gllxBcjXgdEPysOTcfG454 ZBHhaKljNjQOWvp0R4VdBb b0OSRnaZjw PS9ksQDgOOdqRg3vlQvjyB ajHX9rKPKtmizjf394BjHx a7ztYTQmyGCiHPheERC3J9 9by9V5QCIx NZNnNAQ3jUA9uJ7ooHavpt ogbGVmdDsgdmVydGljYWwt DMrxR416FGVreGfkQv9SRp s5Y1QkUsx2 WGDkzBiaYA6ogRFzFTalJb 1vsTklsGfxHL3uGXXhjdxe m448IhDvy8gcKZRcyDRuTP ukGYM7I84m p1F0JHXiQQHsRSB2qWI5sX 1hbGlnbjogbGVmdDsgdmVy kWdkBTfxHMmhA123QARxiX snPlBheWVy OjwvdGQ+SR60jc54Z4SkOt wcEah4YMKdXTZ6fTG3lZ9y QSByUNirh0M8kNT0N4Hsaw Riff7br8em YXB (more content not included)... [facility] Consultation/Specialist Note on 01-11-2022 Consultation/Specia list Note [id number]#[id number] [facility] 01-10-2022 Consent Forms [id number]#1.0 [facility] MAGR Intraoperative Recordon 01-10-2022 MAGR Intraoperative Record MAGR Intra-Op Record Summary Primary Physician: Ambrose Rodriguez DO Finalized Date/Time: 01/10/22 11:08:45 Pt. Name: MIRNA QUEZADA/Sex: 1950 FEMALE Med Rec #: [id number] Physician: Ambrose Rodriguez DO Financial #: [id number] Pt. Type: D Room/Bed: / Admit/Disch: 01/09/22 [...] Role Performed Surgeon - Primary Anesthesiologist of Seed Expert Record Time In 01/09/22 16:20:00 01/09/22 16:20:00 01/09/22 16:20:00 Time Out 01/09/22 16:57:00 01/09/22 16:57:00 01/09/22 16:57:00 Procedure Carpal Tunnel Carpal Tunnel Carpal Tunnel Release(Left) Release(Left) Release(Left) Last Modified By: Aurora Collazo RN, Barbara RN Long, Barbara RN 01/09/22 17:23:23 01/09/22 17:23:23 01/09/22 17:23:23 Entry 4 Entry 5 Case Attendee Duyen Medina CST ASSOCIATE CURATOR/CSFASavanna ASSOCIATE CURATOR Role Performed Scrub Personnel Railroad Mechanic Time In 01/09/22 16:20:00 01/09/22 16:20:00 Time [...] By Aurora Collazo RN Scrub 10% Povidone-Iodine [place] Prep Area (Im.270) Elbow and forearm, Hand [...] symptoms of tootie (more content not included)... Normal [facility] Anesthesia Noteon 01-09-2022 Anesthesia Note Patient: DANI QUEZADA Age: 71 years Sex: FEMALE : 1950 Associated Diagnoses: None Author: Clint Bernal MD Postoperative Information Post Operative Note: Operative Day. Anesthetic utilized: Monitored anesthesia care. Health Status Allergies: Allergic Reactions (All) Severe Augmentin- Angioedema. Problem list (past medical history): All Problems Cigarette smoker / SNOMED CT 583636177 / Confirmed Diabetes / SNOMED CT 977974477 / Confirmed H/O Parkinson's disease / SNOMED CT 710518185 / Confirmed History of heart attack / SNOMED CT 1368778356 / Confirmed HTN (hypertension) / SNOMED CT 3728746825 / Confirmed Physical Examination VS/Measurements Vital Signs [...] on: 01/09/2022 16:59 EDT] Clint Bernal MD [facility] Anesthesia Note Patient: DANI QUEZADA Age: [...] All Problems Cigarette smoker / SNOMED CT 972756021 / Confirmed Diabetes / SNOMED CT 384576928 / Confirmed H/O Parkinson's disease / SNOMED CT 394639308 / Confirmed History of heart attack / SNOMED CT 7802452148 / Confirmed HTN (hypertension) / SNOMED CT 2306708231 / Confirmed Histories Family History: No family history items have been selected or recorded. Procedure history: Cholecystectomy (63864995). Triple coronary bypass (250391701). delivery (9146195622). Comments: 12/30/2021 13:19 Yana Miranda RN x2 Social History Electronic Cigarette/Vaping Assessment [...] pattern. Review / Management Laboratory Results Plan [place] [employer]#(ASA ) physical status classification: Class III. Anesthetic Preoperative Plan Anesthesia: Monitored anesthesia care. Anesthetic plan, risks, benefits, and alternatives discussed with the patient and/or family. Patient verbalized understanding. [Electronically Signed on: 01/09/2022 15:07 EDT] Clint Bernal MD [Verified on: 01/09/2022 15:07 EDT] Clint Bernal MD Normal [facility] Inpatient Patient Summaryon 01-09-2022 Inpatient [place] [address] Patient Discharge Instructions Name: MIRNA QUEZADA : 1950 Patient Address: [address] [place] [id number] Primary Care Provider: Name: VILLA NICOLAS After you are discharged if you find you have any questions, please, call [phone] ext [phone] to speak to a nurse. Discharge Diagnosis: Left carpal tunnel syndrome Prescription Information: If you have been given a prescription for narcotics, seek immediate medical attention if you have any difficulty breathing or any sudden status changes such as confusion and sleepiness. If you or anyone you know is experiencing suicidal thoughts, mental health, alcohol and/or drug addiction problems; contact the [facility] 16/10 Crisis Hotline -Text 4HREI xd 082802. If you received any narcotics, sedation, or [...] business decisions or sign any legal documents [facility] would like to thank you for allowing us to assist you with your healthcare needs. The following includes patient education materials and information regarding your injury/illness. MIRNA QUEZADA has been given the following list of follow-up instructions, prescriptions, and patient education materials: Follow-up Instructions With: Address: When: VAZQUEZ COATES [address], [address] [place] [address] Business (1) 01/18/2022 11:30 AM With: Address: When: VILLA NICOLAS [facility], [address] [place], [place] [id number] Business (1) Medications During the course of your [...] oral t (more content not included)... [facility] Record Summary Primary Physician: Ambrose Rodriguez DO Finalized Date/Time: 01/09/22 18:22:17 Pt. Name: MIRNA QUEZADA/Sex: 1950 FEMALE Med Rec #: [id number] Physician: Ambrose Rodriguez DO Financial #: [id number] Pt. Type: D Room/Bed: / Admit/Disch: 01/09/22 [...] Signed By: Laura Lepe RN 01/09/22 18:22 [facility] MAG[facility] Pre-Op Record Summary Primary Physician: Ambrose Rodriguez DO Finalized Date/Time: 01/09/22 16:37:48 Pt. Name: MIRNA QUEZADA Arya /Sex: 1950 FEMALE Med Rec #: [id number] Physician: Ambrose Rodriguez DO Financial #: [id number] Pt. Type: D Room/Bed: / Admit/Disch: 01/09/22 [...] consent correct. General Comments: Pt arrives to psw ambualtroy. PT denies cp, sob, cough or flu like symptoms. Pt denies pacemaker/defibillator or sleep apnea. Finalized By: Aurora Collazo RN Document Signatures Signed By: Aurora Collazo RN 01/09/22 16:[address] [facility] POCT Glucose Levelon 022 Glucose [Mass/Vol] 118 mg/dL Normal 74-118 [facility] Comment on above: Performed By: #### 4 [id number] #### (DEFAULT)[address] [place] [address] Patient Handouton 01-09-[address] COLON POST OPERATIVE CARPEL TUNNEL INSTRUCTIONS SURGEONS WRITTEN INSTRUTCTIONS: -Keep your hand elevated above your elbow for the first 24 hours after surgery -Wiggle your fingers frequently while awake -DO NOT lift heavy objects or tire layer forcefully with your hand -Change your dressing [...] or concerns, please call the office at [phone] -Follow up as scheduled Normal [facility] Progress Note - Nurseon 12-24 Progress Note - Nurse Spoke with pt and informed her to be here at 7am and NPO after MN, she verbalizes understanding. [Electronically Signed on: 01/06/2022 12:05 EDT] Itzel Dubose RN [Verified on: 01/06/2022 12:05 EDT] Itzel Dubose RN Normal [facility] 2019 Novel Coronavirus (CoVI D-19), INDIRA LCon 01-05-2022 SARS-CoV-2 (COVID-19) RNA INDIRA+probe Ql (Unsp spec) Not detected Invalid Interpretation Code Not Detected [facility] Comment on above: Order Comment: [id number] [facility]#[id number] Result Comment: This nucleic acid amplification test was developed and its performance characteristics determined by [employer]. Nucleic acid amplification tests include RT- PCR [...] detected) result in this assay. Performed At: [address] [id number] Birgit Andino PhD Ph:[phone] Performed By: #### 6 [id number] #### (DEFAULT)[address] [place] [address] Coding Summaryon 01-05-2022 Coding Summary [employer] 64 VjnzbcheGWr1rZx+PGhlYW Q+XK2CFGDaD86gqHUuqV9Q A6rKIC7XZMESLAVTMY1LNI 1soQR3FNjjH1TkwsXf HziqyFVlBQ40AMu9IKZ5xF vhPPzeqA4vwJGzW5x5SkMm KG32hR13HVfsEBUaXaB3Co ZpbjsgbWFy G2xtFpGtqZLnVmq+PHRhYm xlIHdpZHRoPScxMDAlJyBz dWysTF6dBg8pLRTuQTJggV xhcHNlOiBj g5zhYEBpGRamPY2meRwcD7 GreTN5XKWte2f0Gw28vKD+ ZIQsXVL3tPozVFweq125Sl Hvw0fzRUM6 vGLbOKxhIUD6G77ef1U2RD ZyRYOfEFR4pIX8oX5maLsb xstvT9SczLXaCtN4BDP1fQ JuiE5pbHbj wceuqK5hYlx+Z57LGQ8LNZ SWZC1WCxb2H2XvDoplsBS+ WJ93ENCbWU98dSGemBPpb1 lzfAu7YhLg BBGqGXD3yBbpEAdhi5AjON KzS63ugGLmd4S4CPImcFuv wLHfVqUniFU2yQ6hQQxipn nlw8wyydlu Xhduf8jrsu89cR09E63gVM gqCSBjOCN0TXGiVZScqAer sd5quP1aJj8+FHwzh7hlq8 xclYf0OfSf WLEkavKpdAocSRI1b9UmLj 52A6ZpjNvpo7KgMni3zg54 gWHzc8Y2oZV7ZGfgNNTslO 9fSWgrKsQ9 PUQmAeNvnX43mTEjUXslJj 2mpOynbOfqUL2bLSBpsvnd OMAkzE5lPDJdeWGfhIuvZG 4wNTBpbjtm x063OmWeDAM2NZPcqZDrU2 AipO6cFkAvWBYkLKTxA7Qt eLBvIUfuD504ZTcoQmU8EO LagnNoM5Dq ORJosIpbZhU4w7I6Jm2Ra6 EsrooxRCG9MOfoKVCwUvTz XeQfLnL3L8KgTpk4ZXJlyK ykIP8cN6Be PLKnsytbinmqsSI8QHHuEK TxyZ23aFTxMLrtJw8ih0L4 q473XCPgHDGieN44Bd5peI ogMTBwdCBU pC7mnkxmf7fphbyqSaOfEN OjSKf1ARs5ARCqbVnfAnZd KJY3KbW0EGQ9cRTebA5rzG vzdsomfU4u Oyc+Q00nxP8bYLK0HUG7hw nbKBNubaPaSG95VW26I0Ph PjwvdGFibGU+PGRpdiBzdH bnGO4tXmTn h8nkq3MuBMvtK0HjWERxWI hpRhu1NSJfYTP5bZV3hI3k BFAtWIpyq7Y1nGD6O2Xxwv Oeyq6ed0qb TUYaRWsfP11heGXsj9Z7DP VhyMK3AVVciCdoWjMpvR11 Oyc+EJBavEdqi2ZpUbtyc7 esh5avxFp7 JeUaFFHshnQdaIguHUS7c5 FnKn49J18wFTmrSWUaKTIr QHSoJCXuoLolpy6jpC6cMs 8+PGNvbCB3 eCP7bO8zHEIaAqK1BBqhU7 52PbWvhYUdUncyp8rfc0uu zHr1ZhMxZJHzebFfoXofZO L7a9ZxGz18 M69pFAtsYFJmXFQqNJMvCA PhiSkjje2oyQ4vFg2+PC9j l1qdwy71iA83eMS+PHRkIH U5vFwiLGsa KCPhvE8vYBljSmN8LHHsKr FbbJ33gTBaLImgNa0pmVvu gBhxQK0dJJPstkfdq884Mc Iea2dwMNJr lTHrXIvgUXD4G59qo0L8TE GtILTyQVB8nNL9tP3nfFwb bjogbGVmdDsgdmVydGljYW awJLwmB434 IHRvcDsnPlBhdGllbnQgTm BeHHa0I0OqRry1HBJebEmv HY9xbHGnOAeuGb4ozYalkN ysXI6lJMFn rbdzy284FzJyb6hjZSRboT GyNDkbUKF5O81ne9F3XRVx HDBvMTN9eFH1mC0wsSifuk ogbGVmdDsg tcLexOfhAHudZLehB274FI RvcDsnPkJpcnRoIERhdGU6 WS58GP77lAMiv6Q0lJW5J3 BhZGRpbmct bzhlbXF5PQJeYTLmdD03Jy 7ppCkmGz9gBHIfEDO4ESKz bUBvZ9PsxT3kUvQgIYPhCY HjF9MalKDr PIqnM024XZreQpM4VKQzds GvQ3XiHLOzjAywXuG7f3E0 Wu7DE3I9KG58NK88gHDwo3 I8kCV8Z3Ta QOSekufjqodmyZK3CWOiOP KnxU13Wy0bjObxKn8vVRYu KRJ1MDQqdVCdV8AkvN2uEw AjMDAwMDAw Y0LcfBUePKxwJ061ELkrOx X0FCZfzqVjY2SaJKRgmUrp CmZ0a1E8Ec0DCBj0IO60JG 62zFNrr6R4 uOR9F0WbXONiahppmjgmkH R4USSjGWQxjF39Mu8kxPys Ag3yLIXdTYH1SXIumZZeZ4 FlaM3aQoZe ZZQgVRLqB8HtpJYmQYokC9 28OXwlAoG7WNXibcVkA8Tn WCFurKoeZlA7m6L6Nr6PMZ SoFD40XJX2 pTE9YV42AZ25G9WwKxopgO FibGU+PHRhYmxlIHdpZHRo VIzpKHJuWtCpiHhiSO8mCr 9yZGVyLWNv zZatmEUrRbOax1xcMSSsKR eqXO7umLvgT3OxbGI6CGQk g9u9Hd30V42tG1HsjBW+PG HeoSQ5rXR1 pZ0vTtCtAkB3KApkE906Hh XptJBxQybyj0rea4grwFi2 HzR2CSRfhiWwvEtnABS0z2 JlNx24N77y IHdpZHRoPSIxNSUiIHZhbG kbhk0uhK6fDm6+PGNvbCB3 kPA1fP9vVcTeTfE6TBhrK3 49InRvcCIv Kvueq3zor7zprHu0JjBcLQ QhwaEyyZrhWSQ7x1EdFy52 H6AizJnky2PzThx0gf38yJ Wet0G5eDU7 I8PdMJSxtzwubDTopAncXE 6oOBNyqekxVOWmxT1zARXr V2a1EvQrEwH3ALdfG4Fbny O8ESLbeOJu PDdbEUK8D59ov7T1CTPmRD EvQUZ1eJZ8uU5sbKggewzq bGVmdDsgdmVydGljYWwtYW rxP098MUDs vPqvJRLoxJ7nBAHdrGZlfT ppKK1eGRZmzcjeJuAPHAlS LCBCUkVOREEgVzwvdGQ+PH NiSLC0dKdr IWboDCPfdY4eQYTqT9x8Ks WnLrY3LOjbL3EcDJDbxyqw Rm32vI2gIsDdOgY5IOcrE1 MdsaH2IVBa zKOyVBwwEML5V15ah7K2SB DzGKWzLJR9rRB2sS9gxMzl bjogbGVmdDsgdmVydGljYW wyUKylB751 RZCufWccBrF8XuP5DyW6QM G5N6LiKjt8WHIlmIshVA4x qJKdAAodGo5efVfzlNdeEK 4wNTBpbjtw GNShxI3xHYBetXTkgLabMN 5bZGLhmjnco771TnFwFVZ1 YMVcvNRrK7SlbW3uSpDbHO YpRJNrN8Ds jRSvMYrdT959SIvcWaB1CT RvfgWcT4EjGDSpnCcpRlQ8 o9P4So97OTKHXURdxkkgtX Q+PHRkIHN0 oVnkBZkjKYOzaD5bWSHkO4 r6WbZxBoK9QCvuK2ZmDAGg wxrqBt87vU1gVpXuIyI1KU ufF3IstgN0 SBJmqBOoBMawPUZ0P27vn4 D7SBSaUSDeLLM3sXQ9bW7m bGlnbjogbGVmdDsgdmVydG ljYWwtYWxp G827LBPzdYruKfLNIBXXYQ wvdGQ+PPMePAS8mDidCEuq FJAfrC1rVTAmO8g8JnOkNv A3KLtnZ4Lc TOAkrqcwPf77mD4bHrUlKd L6FQzdR6SlkoX7FPChnFVf OIgnQYA1M00cv9Z3EFYkIV ZfXEA5tAB4 pD3erWaouthopUHxnZdwly MkzDvvJPxgZOpbX596JXGl kIyrXl8MVB30RQ80Q4JfTn wvdGFibGU+ PHRhYmxlIHdpZHRoPScxMD NkCtTikXpkUI4fHk9sGRGr WJUugEzkcNYuYjDmt4pyUY AeMAlgZN6l xQjiY9JkiHF6JMSfn4j7Lu 28X00xO4TswRI+PGNvbCB3 vSV8lN7zOtBqRuK3BBreD9 49InRvcCIv Fgefe0qmi7mjfVl0CsNqDN PbnyCyrQtmUFF1e9NwQj49 T86sCLvdMQYuNFAtPMRlLF KxeXtelj4e pD6sFo3+QQJhxVQ8eYQ0kQ 8rZyRgNdF9GJwjG382PdPc qYTdBgdwN06mQ6GgbHL+PH RbQnl9GOXg oNsbSO8tcSGlQKgvOs5iVB X2SyUwEhSlODxyE5EfNLIl phwekoaabSQ5HEDbFVVlzL 96Do3ypOwm Lf4tJWIfIGT1LCJrsCLrR0 RgeP4uHoPsDRUiJXCaL2Ii mHKyPGfqT748XXzmSpJ1XS NkupQlC7Om CHUhcTwaMgT9o0O3Qc1YyC opoAIhHC5tRoKxFMd6Y1Gr Mer0UEFhvZugVB2tiBGbUP dlBk6dlRdl wUhxIP1gAAQfepfzl696Sk Rwq5ekWUEnyKDmDQuwXII8 O62lp8Y7TITcCDEqDIX7lB C4uV8dwSiz bjogbGVmdDsgdmVydGljYW ylXWxpV843EDLtrDjcTwSO Tuw7Y8BeAhv5VITrvZcmTF 0ncGFkZGlu Wr1sdMyzdEdeWE2eDVSnih qhh075GaZgj8xqFWJaxTPv ZFjnGKE4F65tv9U1EOJfQI HyAJV6dFB9 zW6mrKdioksfcNXshOuhth MthIsxFGomDQsvU642LTCd gHleSa3XAdo7L1SeMar6KG HevWgfYL5f wIZcKRgoBp1acMttiOolTF 6zACBnvchem110YxXdq4ht DTJdcNQjOAxlCJN4D39we3 M7RFAhFNNe XJG3yRV8cO3shNeprnwcwM VmdDsgdmVydGljYWwtYWxp I398KUWkzYkeDkPikJBtLe wvdGQ+PC90 fz94Q0FlNtewPll3CNCoOX Q5zHI8iJ8pXIRuBRlma5S6 vJJ4D2TcxoKodx2nt2cuVP QfLGjzT53a bGF (more content not included)... [facility] Coding Summaryon 01-03-2022 Coding Summary HTMLBase 64 NvpeywiqGFc1tEh+PGhlYW Q+MG9GLOLjC68peURriD3N J8eBXW6AEYCIQUIRVO4AFD 0ndPK9EWgzU0PkanWa VsmbfFEuIW56LCn1RIO5dF igRVpjvR8pvUZwQ7a8FnOp VL04kZ38YGtpYDRnHnE2Jq ZpbjsgbWFy C9gjWlZnzMCfYxu+PHRhYm xlIHdpZHRoPScxMDAlJyBz bOlnNW3kBm7yTGMwOIClaN xhcHNlOiBj r7mvSHExCXpaEO9wyBewL0 LicIO7JVQao7k9Fc62sXW+ TQVlBYS6mEwxTTvve384Cb Eun9foTNS4 tJDzRUneQTH0D42qt3B6VD OrNZTnLMV5tVY4eS2yxHkp smviA9FuhBLzWcU4UYY9kF UebD0rrGqe tvgneY1fLvv+Y75SMJ0WBM EQIQ3HPio5D3JzJwvwqZY+ FL99GZOkBT67vMIefFGsj1 qzfKu3UpRv OWDkWCG1wNcvOXwsn2RjMH TnV30hhWZir0Z6TJMasHab nPInSpSwaSY6xO5xJIoqdi aah8qoerpx Nnllt9qcaq63nJ29D96qBF rmTKVxPTI5THSpQTCltRex za1vuY9tZz9+KOarh3mhh5 drjOn4NxAh OXMvqjVszSqhZAR1i4JhXd 27R0PevUaii2CsGiq9mk73 cVQip8R4qMR3QTetFEJlzU 7aGIjjLwZ0 NNXsAlSebJ76pHCbUHybPf 7eoGgklGnsFT6lLZKrzyfr TFQznI2uJNYfwYOicPviLQ 4wNTBpbjtm n076GmXmLNN7PKWapUIwH9 MqtF6sYzRdOHXcOTEgG8Pj xJWgAPgeR015VPjmHdQ4FA WjfyKeG8Wb AHMucNiyWtT0u6X1Vn6Uj3 UpiwgqJYJ6GKcpCQLkUtRh DcEbFuE8I6PsUmq4FGLosI vmPD4bH3Py CGMdlslucpvoqXI1ZAQmDL OzqH51hBYuWWgwFj7nb6K7 e299CPXrAPRphU54Zd0oaT ogMTBwdCBU zS0rjoxqx2lzqfqjWvUaPW AfLDf0HTw9UTJslSmzZnEs YVL5ElC6JEZ5gKNcuC9mqP xezuojhI3s Oyc+X82luK3dQGX9BJX1zx djZUToblXqYE40NI70W0Gh PjwvdGFibGU+PGRpdiBzdH gePD0eBwEz s6sui6NxZTnhH8EqLBStBS tuQfb3KIQqXGY4dZH0xZ5m QQTyESmum0S9qDM0L2Vkgi Osvi6ps1ki QDRhUPjoI45vmRJru9A4AO TbxLZ9QWXfyJjxHyIpkT26 Oyc+XCBckZnfi4AmDaxwu1 lpm8lnmIi6 PzBtZVCekxLdgBsbSCW4t7 EhRy61K95iNOmqPRBpKATy RBFeBZAiaWsldo8plV8eLt 8+PGNvbCB3 fQE3hY0wPYLmQqO3UStkT6 90XlGvnIFtVetox6mfh9lx vXv1PrMpZABtdpUrxPvbEF S1n5FxFk67 V16nBObzCXWrXGRpTPBpFH ZfaKijmk6bhW7dAk1+PC9j t5akfg74cW27yPN+PHRkIH J6vDeeAYhy SBUndO4sEUgnVuU4GAUsPq FseJ72nAHyMLnaFt0wjBky vZscPF4rNJRqswrhv773Dw Yuh3yeELHa fJDsUSfbOMJ5L94gt4X3UA JgDJTsUPK9mZP2hD2qoDrw bjogbGVmdDsgdmVydGljYW piERfeJ003 IHRvcDsnPlBhdGllbnQgTm HlDEy6X3BhQyx1IKViuFde EP6deWSsHLmfSm1iaZgnzK viMZ2mOOFa aedla864AmGuf6trFULwbY EfPVbzPPM9N37wo4U7PRGl GKBrAMQ5aKM1eY0ckLihyz ogbGVmdDsg iaQgeHrpMLobQLzsP038BE RvcDsnPkJpcnRoIERhdGU6 XU87YD55qXWip1O9vHQ5R3 BhZGRpbmct rcctuPB3BFDaSZCpnV43Ze 1tqJimFn4sWSHiBVJ4QTZr vJZfT2KyeV0bHnPvTMKsPQ IhB1WpkNXe FCxiJ066EAtzYvH1UUIqes DaM6AoRBEanHyfPxK5y8Z9 Kn3FC0F2NT84PM10uNJvh0 G0rVK2Z0If AVQcxqcutfsltSR7DZBeBR XqxK50Zb0xrIdlGw7iHEMj WSM0AXDrwENmN4NzdB2cTu AjMDAwMDAw S2FyjQAkOMhrG706SArxYh O4YJHvueKqK9ZnZRGirOqy VjT2n0K6Gh8FLWn7UC25SJ 99sBXei6Y7 vCS9N9QsQMFzyeqorugwlT Z1SUOtSXMbyD81Ul2vpXxi Rh2mXKWuCDT7XJKeoPFqN3 LvoK9lEcRk BMCuUDXtH2HtnLDzDNkvM4 00CXhdNsH9EURnieHsR1Yk SZLfwSrnHtM1u1I5Tj4EMK HnVJ90DJN7 yXA7EU57AP31J3HxVxxoqE FibGU+PHRhYmxlIHdpZHRo QVheFCThCfHqcPyyLI8lSf 9yZGVyLWNv iLznbOTuFeGcv2niTBMyGQ nbWV9kgPovR4BdjWS3WANd l2i3Ry13C77hC7OqfEH+PG PynSW5rCV7 eR6kKkJrPsP9ECffA608Og HmsURrFoxin4xkv7ztxPo2 MfR6NROlujQksBuxUTB0o3 KlTh82Y63v IHdpZHRoPSIxNSUiIHZhbG camd0glW1xUf3+PGNvbCB3 oRV3kR2zDjXqLnU0LHtpO2 49InRvcCIv Llifb4mys5pmrVh2SgVpCG TlrdExaJufFEK9t6DvZt88 U3FgrWrin0JhIrj6ya40sY Zvv2V5aHE1 S6AlASXonkwqsRTreSljJV 1nPWBfhuuaISUxmK1hZKJh C7y7MeBpChQ7CPzaL5Vghi L4GESbvJNe AIboWJG0R43df3L5ELKuZJ VeBKJ6yNS2gE3pcOmbbhuy bGVmdDsgdmVydGljYWwtYW lrP588DAOm nRrqYUAtbT4nJJUolUTorZ poFE4vRGSyikziBbDEJWqT LCBCUkVOREEgVzwvdGQ+PH HoKHQ8hOdw JAyxGULhoC9lVZZtS2m5Bj BcCoO0NXquS0CvCWFuzazz Io10bD4jNuIgPnP0VSjdV7 UfnoY7GYGx wKWfWNndUYD9C42uk0Y6FN DoENObDVI8wVB2cW2tkOcs bjogbGVmdDsgdmVydGljYW yrYGmyG159 MLHuvIdhLhR4OsF1SpX2BU E5I1LzAdn1LXWdkOotJZ5s dENaRKajQt1wmSuyaShuHD 4wNTBpbjtw QOJfbI3sNEIleJCqxNuwOL 8jPRFosyknw478IlUpIKH5 GAEwpWUdL9PhaJ2iUmTeOK HhRLNrY1Fb lHZgUZulW366KTslHvM2IK DcfdZgK1KiKPLmmByuTaX3 q7A0Uc45QMXCHGFfxexhnL Q+PHRkIHN0 sVygPOzfYRGcjL0gLRTiP3 b7GeWzGaV1QTloE3QtHYNi zowiXi53mD0mKzNqJsP3MK zcZ1SzklQ6 BUKdvGYdSPsqHDA3Z80yv4 W7ZOWaXOTtJVS1jUZ6pG1k bGlnbjogbGVmdDsgdmVydG ljYWwtYWxp O668ETMrvFmsVsUFEIGECX wvdGQ+GQMdFDF0yQicTGof YAXvkM3pSQIvL0z9IhCrMw Z4LKxxV0Ib JEVneohuAx12pY9ePkMtOr G4JYaoA7KarzG2GURkwFWe PUolZDB7U09pz1U5JYGfJM BeQKE7hAB6 tD4raNzbfqlynKQgkOjbyd BmuJfnRAloXDhpQ364RIMg pOfdSx0UUP13KD68S6OqQf wvdGFibGU+ PHRhYmxlIHdpZHRoPScxMD LwSgKiuRieMG3sLt3vTTYg ICLjsQnfhZJsTbYvo8vfNG NuQSjrLQ3c hApaJ0LcfAJ9AXIty2j6Zb 10A05oS6UgvIS+PGNvbCB3 wIF6uL0iVkPdEnH2PFdfW2 49InRvcCIv Euqtx2xuc6hqoIy4HwYeDK WjrgUpcGwhECZ1y0DqVc07 D47aUNoaRQVxYAWyIXObLB NhzSfuib8i eN0eAr1+SXEpsQB4oKQ3kD 8cAiWhGzE0DJaoS734GhRc cLVxPqcmR42vG4EetZT+PH HaBif4SSDc xSqoZR8vlSClDQtcOs8xXU Q3TxMcUbHeYSdfE4HdTXBc bhpkwdcizIP9VJXeMSZziF 29Wo3ihBue An1zKTMbMAC4KBYcyGIvG9 QcgP5fEdAaAYKvEGQdT1Hi jLIeCCwgI636CDsnSjE2DE BzduBoA8Qp YKNhaQvtErL0o0D8Ij8GlS saeLQrCN5gIjFuEUw4Y0Mm Niy0UZNwsLqmBY5xkQBnFL eqPc4paUmd fWslSX2dBKDxdortq964Af Wil3ogZIIvdWWbGTbsZJI2 K44rb2R0JRBvDPLrQWO7qI Q9yA1skLqt bjogbGVmdDsgdmVydGljYW atCHkpV633KBUqsPlvFyXZ Rgi5L5TtJhs8SQSmxYryLI 0ncGFkZGlu Eu2peUbyjKrkMS9wNEJmns omt057PfEsx3qlFVJqpGOt MQgyYAQ1P06yw4M7JOMyOI EeFZI8tAL3 qZ4uyBpvsgrbyHTbvVvzci LrdIkvILanSXitB036OWPx hBehQb8WEwp2R4EuLdn7ZH WayLzyJZ8p rJSuPFwxKy7gpSgziFreKP 8eRBGlksuiu073ZwBmn4uy IDKkdLMkKUrfTWZ3K52qw8 E9GCHvZEAi CYF3hRA4jQ5dbCkazulfkV VmdDsgdmVydGljYWwtYWxp W763SFEurDvvKyJoxXPoUt wvdGQ+PC90 zg89B6FxJxgcUqy4TOJePO L5jSJ6gS4qYCZnNItin1L7 bLS3F1YhlfRygb3qk0qxXG IcLQgqP79t [facility] (more content not included)... [facility] Progress Note - Nurseon 12-24 Progress Note - Nurse PAT review done per Dr. Odonnell, no orders received. [Electronically Signed on: 01/02/2022 15:09 EDT] Yana Samson RN [Verified on: 01/02/2022 15:09 EDT] Yana Samson RN [facility] .Auto Diff 1on 12-30-2021 Auto [place] % 7 % Normal 1-[address] [facility] Comment on above: Performed By: #### 1 [id number] #### (DEFAULT)[address] [place] [address] Baso Abs# 0.0 x10 Normal 0.0-0.[address] [facility] Comment on above: Performed By: #### 1 [id number] #### (DEFAULT)[address] [place] [address] Basophils/100 WBC (Bld) 0.3 % Normal 0.2-2.[address] [facility] Comment on above: Performed By: #### 1 [id number] #### (DEFAULT)[address] [place] [address] Eos Abs# 0.1 x10 Normal 0.0-0.[address] [facility] Comment on above: Performed By: #### 1 [id number] #### (DEFAULT)[address] [place] [id number] Eosinophils/100 WBC (Bld) 0.6 % Low 0.9-4.[address] [facility] Comment on above: Performed By: #### 1 [id number] #### (DEFAULT)[address] [place] [address] Lymph Abs# 3.5 x10 High 1.3-2.[address] [facility] Comment on above: Performed By: #### 1 [id number] #### (DEFAULT)[address] [place] [address] Lymphocytes/100 WBC (Bld) 36 % Normal 14-48 [facility] Comment on above: Performed By: #### 1 [id number], [id number], [id number] #### (DEFAULT)[address] [place] [address] [place] Abs# 0.7 x10 Normal 0.0-0.[address] [facility] Comment on above: Performed By: #### 1 [id number], [id number], [id number] #### (DEFAULT)[address] [place] [address] Neut Abs# 5.6 x10 Normal 1.5-9.[address] [facility] Comment on above: Performed By: #### 1 [id number], [id number], [id number] #### (DEFAULT)[address] [place] [address] 24377 Neutrophils/100 WBC (Bld) 56 % Normal 44-[address] [facility] Comment on above: Performed By: #### 1 [id number], [id number], [id number] #### (DEFAULT)[address] [place] [address] 44709 BMP Standardon 12-30-2021 eGFR Non AA >60 Invalid Interpretation Code [facility] Comment on above: Performed By: #### 1 [id number], [id number], [id number] #### (DEFAULT)[address] [place] [address] eGFR AA >60 Invalid Interpretation Code [facility] Comment on above: Result Comment: Engineering Agent abigail Kidney disease could be indicated at eGFRs of less than 60 ml/min/1.73m2. Kidney Failure is indicated at less than 15 ml/min/1.73m2 Performed By: #### 1 [id number], [id number], [id number] #### (DEFAULT)[address] [place] [address] 88747 Anion gap [Moles/Vol] 15.0 mmol/L Normal 5.0-19.[address] [facility] Comment on above: Performed By: #### 1 [id number], [id number], [id number] #### (DEFAULT)[address] [place] [address] 62633 Calcium [Mass/Vol] 9.2 mg/dL Normal 8.9-10.3 [facility] Comment on above: Performed By: #### 1 [id number], [id number], [id number] #### (DEFAULT)[address] [place] [address] 94143 Chloride [Moles/Vol] 104 mmol/L Normal 101-[address] [facility] Comment on above: Performed By: #### 1 [id number], [id number], [id number] #### (DEFAULT)[address] [place] [address] 51255 CO2 [Moles/Vol] 23 mmol/L Normal 21-[address] [facility] Comment on above: Performed By: #### 1 [id number], [id number], [id number] #### (DEFAULT)[address] [place] [address] 98037 Creatinine [Mass/Vol] 0.51 mg/dL Low 0.60-1.[address] [facility] Comment on above: Performed By: #### 1 [id number], [id number], [id number] #### (DEFAULT)[address] [place] [address] 21963 Glucose [Mass/Vol] 103.0 mg/dL Normal 74.0-118.0 [facility] Comment on above: Performed By: #### 1 [id number], [id number], [id number] #### (DEFAULT)[address] [place] [address] Osmolality 273 mOsm/L Invalid Interpretation Code [facility] Comment on above: Performed By: #### 1 [id number], [id number], [id number] #### (DEFAULT)[address] [place] [address] 02505 Potassium [Moles/Vol] 4.6 mmol/L Normal 3.6-5.[address] [facility] Comment on above: Performed By: #### 1 [id number], [id number], [id number] #### (DEFAULT)[address] [place] [address] Sodium [Moles/Vol] 137.0 mmol/L Normal 136.0-144.0 [facility] Comment on above: Performed By: #### 1 [id number], 8427644, [id number] #### (DEFAULT)[address] [place] [address] Urea nitrogen [Mass/Vol] 10 mg/dL Normal 8-[address] [facility] Comment on above: Performed By: #### 1 [id number], 6030739, [id number] #### (DEFAULT)[address] [place] [address] Urea nitrogen/Creatinine [Mass ratio] 20.0 mg/mg High 4.6-16.[address] [facility] Comment on above: Performed By: #### 1 [id number], 7384012, [id number] #### (DEFAULT)[address] [place] [address] CBC w/ Auto Diffon 2 Erythrocyte distribution width (RBC) [Ratio] 14.6 % Normal 11.5-15.[address] [facility] Comment on above: Performed By: #### 1 [id number], 2307381, 24234436 #### (DEFAULT)[address] [place] [address] Hematocrit (Bld) [Volume fraction] 49.5 % High 33.7-40.[address] [facility] Comment on above: Performed By: #### 1 [id number], 5419883, 97910503 #### (DEFAULT)[address] [place] [address] 35123 Hemoglobin (Bld) [Mass/Vol] 16.8 g/dL High 11.3-15.[address] [facility] Comment on above: Performed By: #### 1 [id number], 5796808, [id number] #### (DEFAULT)[address] [place] [address] 40169 Instr WBC 9.9 x10 Invalid Interpretation Code [facility] Comment on above: Performed By: #### 1 [id number], 5897228, [id number] #### (DEFAULT)[address] [place] [address] Man Diff? Auto Normal [facility] Comment on above: Performed By: #### 1 [id number], 0276501, [id number] #### (DEFAULT)[address] [place] [address] 07755 MCH (RBC) [Entitic mass] 32 pg Normal 24-[address] [facility] Comment on above: Performed By: #### 1 [id number], 1676596, [id number] #### (DEFAULT)[address] [place] [address] 62343 MCHC (RBC) [Mass/Vol] 34 g/dL Normal 26-[address] [facility] Comment on above: Performed By: #### 1 [id number], 1542275, 99072480 #### (DEFAULT)[address] [place] [address] 22521 MCV (RBC) [Entitic vol] 95 fL Normal 81-[address] [facility] Comment on above: Performed By: #### 1 [id number], 6468567, [id number] #### (DEFAULT)[address] [place] [address] 58171 Platelet 138 x10 Normal 138-[address] [facility] Comment on above: Performed By: #### 1 [id number], 0879294, 73512734 #### (DEFAULT)[address] [place] [address] 06286 Platelet mean volume (Bld) [Entitic vol] 11.5 fL High 6.3-10.[address] [facility] Comment on above: Performed By: #### 1 [id number], 1919045, 60069707 #### (DEFAULT)[address] [place] [address] RBC 5.20 x10 Normal 3.70-5.[address] [facility] Comment on above: Performed By: #### 1 [id number], 1171597, 58672830 #### (DEFAULT)[address] [place] [address] WBC 9.9 x10 Normal 3.5-10.[address] [facility] Comment on above: Performed By: #### 1 [id number], 6946668, 22381676 #### (DEFAULT)[address] [place] [address] US ARTERY LEG BILon 11-26-19 US ARTERY [...] by: CHARY AWAD Date: 2021-11-25 17:16 Normal [facility] Complete Blood Count with Au to Diffon 07-14-2021 Basophils (Bld) [#/Vol] 0.05 10*3/uL Normal 0.00-0.20 [facility] Comment on above: Performed By: #### F E Prof, TSH, CBCAD, FERR #### [facility] [address] [place], [place] [id number] Basophils/100 WBC (Bld) 0.6 % Normal [facility]al[facility]/Funeral Director Comment on above: Performed By: #### F E Prof, TSH, CBCAD, FERR #### [facility] [address] [place], [place] [id number] Eosinophils (Bld) [#/Vol] 0.04 10*3/uL Normal 0.02-0.50 [facility]al[facility]/Funeral Director Comment on above: Performed By: #### F E Prof, TSH, CBCAD, FERR #### [facility] [address] [place], [place] [id number] Eosinophils/100 WBC (Bld) 0.5 % Normal [facility] Comment on above: Performed By: #### F E Prof, TSH, CBCAD, FERR #### [facility] [address] [place], [place] [id number] Erythrocyte distribution width (RBC) [Ratio] 14.4 % Normal 11.0-15.0 [facility] Comment on above: Performed By: #### F E Prof, TSH, CBCAD, FERR #### [facility] [address] [place], [place] [id number] Hematocrit (Bld) [Volume fraction] 49.0 % High 35.0-47.0 [facility] Comment on above: Performed By: #### F E Prof, TSH, CBCAD, FERR #### [facility] [address] [place], [place] [id number] Hemoglobin (Bld) [Mass/Vol] 16.8 g/dL High 11.6-15.5 [facility] Comment on above: Performed By: #### F E Prof, TSH, CBCAD, FERR #### [facility] [address] [place], [place] [id number] Lymphocytes (Bld) [#/Vol] 2.9 10*3/uL Normal 0.9-3.9 [facility] Comment on above: Performed By: #### F E Prof, TSH, CBCAD, FERR #### [facility] [address] [place], [place] [id number] Lymphocytes/100 WBC (Bld) 35.7 % Normal [facility] Comment on above: Performed By: #### F E Prof, TSH, CBCAD, FERR #### [facility] [address] [place], [place] [id number] MCH (RBC) [Entitic mass] 32.2 pg Normal 27.0-33.0 [facility] Comment on above: Performed By: #### F E Prof, TSH, CBCAD, FERR #### [facility] [address] [place], [place] [id number] MCHC (RBC) [Mass/Vol] 34.3 g/dL Normal 32.0-36.0 [facility]almer/Funeral Director Comment on above: Performed By: #### F E Prof, TSH, CBCAD, FERR #### [facility] [address] [place], [place] [id number] MCV (RBC) [Entitic vol] 94 fL Normal 80-100 [facility] Comment on above: Performed By: #### F E Prof, TSH, CBCAD, FERR #### [facility] [address] [place], [place] [id number] Monocytes (Bld) [#/Vol] 0.5 10*3/uL Normal 0.2-0.9 [facility] Comment on above: Performed By: #### F E Prof, TSH, CBCAD, FERR #### [facility] [address] [place], [place] [id number] Monocytes/100 WBC (Bld) 5.9 % Normal [facility] Comment on above: Performed By: #### F E Prof, TSH, CBCAD, FERR #### [facility] [address] [place], [place] [id number] Neutrophils (Bld) [#/Vol] 4.6 10*3/uL Normal 1.5-7.8 [facility]almer/Funeral Director Comment on above: Performed By: #### F E Prof, TSH, CBCAD, FERR #### [facility] [address] [place], [place] [id number] Neutrophils/100 WBC (Bld) 56.8 % Normal [facility] Embalmer/Funeral Director Comment on above: Performed By: #### F E Prof, TSH, CBCAD, FERR #### [facility] [address] [place], [place] [id number] Platelet mean volume (Bld) [Entitic vol] 12.10 fL Normal 7.50-12.50 [facility] Embalmer/Funeral Director Comment on above: Performed By: #### F E Prof, TSH, CBCAD, FERR #### [facility] [address] [place], [place] [id number] Platelets (Bld) [#/Vol] 166 10*3/uL Normal 140-400 [facility] Embalmer/Funeral Director Comment on above: Performed By: #### F E Prof, TSH, CBCAD, FERR #### [facility] [address] [place], [place] [id number] RBC (Bld) [#/Vol] 5.22 10*6/uL High 3.90-5.20 [facility] Comment on above: Performed By: #### F E Prof, TSH, CBCAD, FERR #### [facility] [address] [place], [place] [id number] RDW-SD 49.0 fL Normal 37.0-50.0 [facility] Comment on above: Performed By: #### F E Prof, TSH, CBCAD, FERR #### [facility] [address] [place], [place] [id number] WBC (Bld) [#/Vol] 8.1 10*3/uL Normal 3.8-11.0 [facility] Comment on above: Performed By: #### F E Prof, TSH, CBCAD, FERR #### [facility] [address] [place], [place] [id number] Ferritinon 07-14-2021 FERR 36.8 ng/mL Normal 15.0-150.0 [facility] Comment on above: Performed By: #### F E Prof, TSH, CBCAD, FERR #### [facility] [address] [place], [place] [id number] Iron Profileon 07-14-2021 %FESAT 21 % Normal 11-50 [facility] Comment on above: Performed By: #### F E Prof, TSH, CBCAD, FERR #### [facility] [address] [place], [place] [id number] FE 67 ug/dL Normal 40-190 [facility] Comment on above: Result Comment: Refe rence range change 02/09/2017. Prior reference range F 37-145 ug/dL, M 59-158 ug/dL. Performed By: #### F E Prof, TSH, CBCAD, FERR #### [facility] [address] [place], [place] [id number] TIBC 316 ug/dL Normal 250-450 [facility] Comment on above: Performed By: #### F E Prof, TSH, CBCAD, FERR #### [facility] [address] [place], [place] [id number] UIBC 249 ug/dL Normal 112-347 [facility] Comment on above: Performed By: #### F E Prof, TSH, CBCAD, FERR #### [facility] [address] [place], [place] [id number] TSHon 07-14-2021 TSH 1.430 uIU/mL Normal 0.400-4.500 [facility] Comment on above: Performed By: #### F E Prof, TSH, CBCAD, FERR #### [facility] [address] [place], [place] [id number] Vitamin B12on 07-14-2021 Cobalamin (Vitamin B12) [Mass/Vol] 216 pg/mL Normal 211-946 [facility] Comment on above: Performed By: #### B 12 #### [facility] [address] [place], [place] [id number] Comprehensive Metabolic Pane gaurav 02-28-2021 Albumin [Mass/Vol] 4.4 g/dL Normal 3.6-5.1 [facility] Comment on above: Performed By: #### L IPD, CMP #### [facility] [address] [place], [place] [id number] Albumin/Globulin [Mass ratio] 1.7 {ratio} Normal 1.0-2.5 [facility] Comment on above: Performed By: #### L IPD, CMP #### [facility] [address] [place], [place] [id number] ALP [Catalytic activity/Vol] 159 U/L High 35-119 [facility] Comment on above: Performed By: #### L IPD, CMP #### [facility] [address] [place], [place] [id number] ALT [Catalytic activity/Vol] 6 U/L Normal 6-33 [facility] Comment on above: Result Comment: 02/23 Female reference range changed. Performed By: #### L IPD, CMP #### [facility] [address] [place], [place] [id number] Anion gap [Moles/Vol] 19 mmol/L Normal 12-20 [facility] Comment on above: Result Comment: Effe ctive 03/31/2019 reference range changed. Performed By: #### L IPD, CMP #### [facility] [address] [place], [place] [id number] AST [Catalytic activity/Vol] 13 U/L Normal 9-34 [facility] Comment on above: Performed By: #### L IPD, CMP #### [facility] [address] [place], [place] [id number] BUN/CREA 21 Ratio Normal 6-22 [facility] Comment on above: Performed By: #### L IPD, CMP #### [facility] [address] [place], [place] [id number] Calcium [Mass/Vol] 9.7 mg/dL Normal 8.6-10.2 [facility] Comment on above: Performed By: #### L IPD, CMP #### [facility] [address] [place], [place] [id number] Chloride [Moles/Vol] 103 mmol/L Normal 98-107 [facility] Comment on above: Performed By: #### L IPD, CMP #### [facility] [address] [place], [place] [id number] CO2 [Moles/Vol] 22 mmol/L Normal 20-31 [facility] Comment on above: Performed By: #### L IPD, CMP #### [facility] [address] [place], [place] [id number] Creatinine [Mass/Vol] 0.6 mg/dL Normal 0.6-1.4 [facility] Comment on above: Performed By: #### L IPD, CMP #### [facility] [address] [place], [place] [id number] eGFRAA 113 mL/min/1.73m2 Normal >60 [facility] Comment on above: Performed By: #### L IPD, CMP #### [facility] [address] [place], [place] [id number] eGFRNAA 93 mL/min/1.73m2 Normal >60 [facility] Comment on above: Performed By: #### L IPD, CMP #### [facility] [address] [place], [place] [id number] Globulin (S) [Mass/Vol] 2.6 g/dL Normal 1.9-3.7 [facility] Embalmer/Funeral Director Comment on above: Performed By: #### L IPD, CMP #### [facility] [address] [place], [place] [id number] Glucose [Mass/Vol] 102 mg/dL High 65-99 [facility]al[facility]/Funeral Director Comment on above: Result Comment: For FASTING Glucose --- ADA reference ranges: Normal 65-99 mg/dl Prediabetes 100-125 Diabetes >/= 126 Performed By: #### L IPD, CMP #### [facility] [address] [place], [place] [id number] Potassium [Moles/Vol] 4.2 mmol/L Normal 3.5-5.5 [facility] Embalmer/Funeral Director Comment on above: Performed By: #### L IPD, CMP #### [facility] [address] [place], [place] [id number] Protein [Mass/Vol] 7.0 g/dL Normal 6.1-8.1 [facility]almer[facility]Funeral Director Comment on above: Performed By: #### L IPD, CMP #### [facility] [address] [place], [place] [id number] Sodium [Moles/Vol] 140 mmol/L Normal 135-146 [facility]al[facility]Funeral Director Comment on above: Performed By: #### L IPD, CMP #### [facility] [address] [place], [place] [id number] TBIL <0.3 Normal [facility] Embalmer/Funeral Director Comment on above: Performed By: #### L IPD, CMP #### [facility] [address] [place], [place] [id number] Urea nitrogen [Mass/Vol] 13 mg/dL Normal 7-25 [facility] Embalmer/Funeral Director Comment on above: Performed By: #### L IPD, CMP #### [facility] [address] [place], [place] [id number] Lipid Panelon 02-28-2021 Cholesterol [Mass/Vol] 166 mg/dL Normal 125-200 [facility]almer/Funeral Director Comment on above: Result Comment: Low risk < 200mg/dL Borderline risk 201-239 mg/dl High risk > or equal to 240 Performed By: #### L IPD, CMP #### [facility] [address] [place], [place] [id number] Cholesterol in HDL [Mass/Vol] 54 mg/dL Normal >40 [facility]almer/Funeral Director Comment on above: Result Comment: High Cardiovascular Risk HDL <40 mg/dL Low Cardiovascular Risk HDL > or equal to 60 mg/dl Performed By: #### L IPD, CMP #### [facility] [address] [place], [place] [id number] Cholesterol in LDL [Mass/Vol] 87 mg/dL Normal [facility] Embalmer/Funeral Director Comment on above: Result Comment: LDL ATP III CLASSIFICATION LDL less than 100 mg/dl Optimal LDL 100-129 mg/dl Near or above optimal LDL 130-159 Borderline high LDL 160-189 High LDL greater than 189 mg/dl Very High Performed By: #### L IPD, CMP #### [facility] [address] [place], [place] [id number] Cholesterol in VLDL [Mass/Vol] 25 mg/dL Normal [facility] Embalmer/Funeral Director Comment on above: Performed By: #### L IPD, CMP #### [facility] [address] [place], [place] [id number] Cholesterol.total/C holesterol in HDL [Mass ratio] 3 {ratio} Normal [facility] Comment on above: Performed By: #### L IPD, CMP #### [facility] [address] [place], [place] [id number] Triglyceride [Mass/Vol] 126 mg/dL Normal 30-150 [facility] Embalmer/Funeral Director Comment on above: Result Comment: TRIG ATPIII CLASSIFICATIONS TRIG less than 150 mg/dl Normal TRIG 150-199 mg/dl Borderline High TRIG 200-500 mg/dl High TRIG greather than 500 mg/dl Very High Performed By: #### L IPD, CMP #### [facility] [address] [place], [place] [id number] Vital Signs Date Time Vital Sign Value Performing Clinician Alize berg 05-24-2023 13:10-0500 Body height 160 cm Sta 2 [facility] [employer] [facility] 05-24-2023 13:10-0500 Body mass index (BMI) [Ratio] 22.71 kg/m2 Sta 2 [facility] 05-24-2023 13:10-0500 Body temperature 97.81 [degF] Sta 2 [facility] 05-24-2023 13:10-0500 Body weight 58.15 kg Sta 2 [facility] Jessica [facility] 05-24-2023 13:10-0500 Diastolic blood pressure 43 mm[Hg] Sta 2 [facility] 05-24-2023 13:10-0500 Heart rate 80 /min Sta 2 [facility] 05-24-2023 13:10-0500 Respiratory rate 16 /min Sta 2 [facility] 05-24-2023 13:10-0500 SaO2% (BldA) [Mass fraction] 93 % Sta 2 [facility] 05-24-2023 13:10-0500 Systolic blood pressure 98 mm[Hg] Sta 2 [facility] Encounters Encounter Date Encounter Type Care Provider Facility Start: 05-30-2023 End: 05-30-2023 ambulatory ZOË BAUMAN Not Available Start: 05-25-2023 End: 05-25-[address] [facility] Start: 05-24-2023 ambulatory VILLA NICOLAS [facility] Start: 05-24-2023 End: 05-28-2023 Subsequent hospital visit by physician Chandu Perrin Rm 2 [facility] Start: 05-07-2023 Refill Kae Barone MA [facility] Comment on above: Intervertebral disc disorder of lumbar region with myelopathy Start: 04-23-2023 End: 04-23-2023 ambulatory VILLA Allen NICOLAS Not Available Start: 04-23-2023 Patient encounter status Kae alfaro MA [facility] Start: 04-19-2023 End: 04-19-[address] [facility] Start: 04-05-2023 End: 04-05-2023 Subsequent hospital visit by physician Chandu Perrin Rm 1 [facility] Comment on above: Canceled (Case avani llhillary) Start: 04-04-2023 Evaluation and manag ement of inpatient EHAB [facility] Start: 04-04-2023 Evaluation and manag ement of inpatient [facility] Start: 04-03-2023 End: 04-05-2023 Evaluation and management of inpatient ALE [facility] Start: 03-27-2023 End: 03-27-2023 Subsequent hospital visit by physician Chandu Perrin Rm 2 [facility] Comment on above: Canceled (Patient) Start: 03-15-2023 End: 03-15-2023 ambulatory VILLA NICOLAS Not Available Start: 02-02-2023 End: 02-07-2023 ambulatory [facility] Start: 10-31-2022 End: 10-31-2022 ambulatory [facility] Start: 10-31-2022 End: 10-31-2022 Encounter for preprocedural cardiovascular examination [facility] Start: 10-26-2022 End: 10-31-2022 ambulatory [facility] Start: 06-27-2022 End: 06-28-2022 ambulatory YASMEEN WINTERS Facility: Start: 01-20-2022 End: 01-21-2022 ambulatory [facility] Facility: Start: 01-16-2022 End: 01-17-2022 [facility] Start: 01-09-2022 End: 01-09-2022 ambulatory VILLA NICOLAS Facility:[facility] Start: 01-04-2022 End: 01-05-2022 ambulatory Ambrose Castellanos [place] Facility:[facility] Start: 12-30-2021 End: 12-31-2021 ambulatory VILLA NICOLAS Facility:[facility] Start: 11-25-2021 End: 11-26-[address] VILLA NICOLAS Facility: Start: 10-02-2016 End: 10-03-2016 Ambulatory DEFAULT PHYSICIAN Facility:[facility] Procedures Date Procedure Procedure Detail Performing Clinician Start: 05-24-2023 Basic metabolic pane l calcium total Amrita M Mark BANSAL Work Phone: Start: 08-10-2022 History of coronary artery bypass grafting Status post coronary artery bypass graft Kae Barone MA Plan of Treatment Date Care Activity Detail Author Start: 05-23-2024 Hemoglobin A1c measurement A1C test (Diabetic or Prediabetic) [facility] Start: 03-15-2024 Screening for malign ant neoplasm of colon Colorectal Cancer Screening [facility] Comment on above: Postponed from 12/08 (Patient Refused) Start: 03-04-2024 Screening for malign ant neoplasm of breast Mammogram [facility] Comment on above: Postponed from 12/08 (Patient Refused) Start: 09-23-2023 Influenza vaccination Influenza Vacc ine (#1) [facility] Comment on above: Postponed from 11/24 (Patient Refused) Start: 07-04-2023 End: 07-04-2023 Patient encounter procedure 07/04/2023 1:50 PM EDT Office Visit [facility] Neurosurgery [address] [place] [address], [facility] [address] [place] [address] Christian Webster MD [address] [place] [address] [address] [place] [address] 4 week 1st post op-Redo L3-4 Lami [facility] Comment on above: 4 week 1st post op-R jenni L3-4 Lami Start: 06-25-2023 End: 06-25-2023 Patient encounter procedure 06/25/2023 2:00 PM EDT Office Visit [facility] [address] [id number] Villa Nicolas MD [address] [address] [facility] Start: 06-14-2023 Hemoglobin A1c measurement Diabetes: Hemoglobin A1C [facility] Start: 06-07-2023 End: 06-07-2023 Admission to same day surgery center 06/07/2023 9:55 AM EDT - 06/07/2023 12:00 PM EDT Surgery [facility] [address] [place] [address] [id number] Christian Webster MD [address] [place] [address] [place] [address] [place] [address] RE-DO L3-4 LUMBAR LAMINECTOMY [facility] Comment on above: RE-DO L3-4 LUMBAR LA MINECTOMY Start: 06-07-2023 End: 06-07-2023 Laminectomy w/o ffd > 2 vert seg lumbar LUMBAR LAMINECTOMY POSTERIOR Spinal stenosis of lumbar region, unspecified whether neurogenic claudication present 06/07/2023 9:55 AM EDT [facility] Start: 06-07-2023 Subsequent hospital visit by physician 06/07/2023 9:55 AM EDT Hospital Encounter [facility] OR [address] [place] [address] Christian Webster MD [address] [facility] [address] [place] [address] [facility] OR Start: 05-30-2023 End: 05-30-2023 Patient encounter procedure 05/30/2023 2:20 PM EST Office Visit [facility] [address] [facility] [address] [place] [phone] Zoë Bauman MD [address] [facility] [address] [place] [address] [facility] Start: 05-23-2023 End: 05-23-2023 Clinical Support 05/23/2023 11:00 AM EST Clinical Support [facility] [address] [facility] [address] [place] [phone] Crystal Cortés, [facility] [address] [place] [address] [facility] Start: 05-16-2023 End: 05-16-2023 Patient encounter procedure 05/16/2023 10:30 AM EST Office Visit [facility], [facility] [address] [facility], [address] [facility] [place] [address] Christian Webster MD [address] [facility] [address] [place] [address] 4 week 1st post op-Redo L3-4 [facility] [place], [facility] Comment on above: 4 week 1st post op-R jenni L3-4 [facility] Start: 04-20-2023 End: 04-20-2023 Admission to same day surgery center 04/20/2023 10:00 AM EST - 04/20/2023 11:55 AM EST Surgery [facility] OR [address] [place] [id number] Christian Webster MD [address] [place] [address] [address] [place] [address] REDO L3-4 LUMBAR LAMINECTOMY POSTERIOR [facility] OR Comment on above: REDO L3-4 LUMBAR KNOTT INECTOMY POSTERIOR Start: 04-20-2023 End: 04-20-2023 Knott facetectomy & foramotomy 1 segment lumbar LUMBAR LAMINECTOMY POSTERIOR Spinal stenosis of lumbar region, unspecified whether neurogenic claudication present 04/20/2023 10:00 AM [facility] Start: 04-20-2023 Subsequent hospital visit by physician 04/20/2023 10:00 AM EST Hospital Encounter [facility] OR [address] [place] [id number] Christian Webster MD [address] [place] [id number] [facility] OR Start: 04-05-2023 Subsequent hospital visit by physician 04/05/2023 1:00 PM EST Hospital Encounter [facility] PRE-ADMIT TESTING [address] [place] [id number] [facility] PRE-ADMIT TESTING Start: 02-19-2023 Annual Wellness Visi t (Medicare) Annual Wellness Visit (Medicare) [facility] Start: 01-26-2023 Hemoglobin A1c measurement A1C test (Diabetic or Prediabetic) [facility] Start: 12-09-2022 Screening for malign ant neoplasm of colon FIT-DNA [facility] Start: 11-24-2022 COVID-19 Vaccine ( season) COVID-19 Vaccine (2022- season) [facility] Start: 10-24-2022 Influenza vaccination Flu vaccine (# 1) [facility] Start: 09-29-2022 Medicare Annual Wellness (AWV) Medicare Annual Wellness (AWV) [facility] Start: 01-14-2020 Shingles vaccine (2 of 2) Shingles vaccine (2 of 2) [facility] Start: 06-27-2019 Urine screening for protein Diabetes: Urine Protein Screening [facility] Start: 08-30-2018 Pneumococcal 65+ yea rs Vaccine (3 - PPSV23 or PCV20) Pneumococcal 65+ years Vaccine (3 - PPSV23 or PCV20) [facility] Start: 2010 Respiratory Syncytia l Virus (RSV) or age 60 yrs+ (1 - 1-dose 60+ series) Respiratory Syncytial Virus (RSV) or age 60 yrs+ (1 - 1-dose 60+ series) [facility] Start: 2000 Screening for malign ant neoplasm of breast Breast cancer screen [facility] Start: 12-09-1995 Screening for malign ant neoplasm of colon [facility] Start: 1969 DTaP/Tdap/Td vaccine (1 - Tdap) DTaP/Tdap/Td vaccine (1 - Tdap) [facility] Start: 1968 Hepatitis C screening Hepatitis C sc reen [facility] Start: 1962 Depression Screen Depression Screen [facility] Start: 1960 Lipid panel Lipids [facility] Start: 1950 Screening for malign ant neoplasm of colon [facility] Immunizations Immunization Date Immunization Notes Care Provider Fa cility 02-02-2022 influenza, high dose seasonal, preservative-free Kae Barone MA [facility] are 02-02-2022 influenza virus vacc ine, unspecified formulation Kae Barone MA [facility] 01-27-2022 SARS-CoV-2, Unspecified Kae sheehan MA [facility] 02-23-2021 influenza, high dose seasonal, preservative-free Kae Barone MA [facility] are 12-03-2019 Influenza, High-dose Seasonal, Quadrivalent, Preservative Free Kae Barone MA [facility] 11-19-2019 zoster vaccine recombinant Kae lyons MA [facility] 12-20-2017 Influenza, High-dose Seasonal, Quadrivalent, Preservative Free Kae Barone MA [facility] 08-30-2017 pneumococcal conjuga te vaccine, 13 valent Kae Barone MA [facility] 12-24-2014 seasonal influenza, intradermal, preservative free Kae Barone MA [facility] 01-26-2014 influenza, seasonal, injectable Kae Barone MA [facility] 02-28-2013 seasonal influenza, intradermal, preservative free Kae Barone MA [facility] 03-26-2011 pneumococcal polysac charide vaccine, 23 valent Kae Barone [facility] Payers Date Payer Category Payer Medicare MEDICARE MEDICAR E PART B [id number] 2017-Present [address] [address] [place] [address] Medicare [id number] 2017 Medicaid MEDICAID [facility] [id number] 2017-Present [phone] [address] [place] [address] Medicaid [id number] 1959 Medicaid [id number] 1959 Medicare [id number] 1959 Medicare [id number] 1959 Self-pay [id number] 1950 Unknown [id number] 1950 Unknown [id number] 1950 Unknown [id number] 1950 Unknown [id number] [id number] 1950 Unknown [id number] [id number] 1950 Unknown [id number] [id number] 1950 Unknown [id number] [id number] 1950 Unknown [id number] [id number] 1950 Unknown [id number] [id number] 1950 Unknown [id number] [id number] 1950 Unknown [id number] [id number] 1950 Unknown [id number] [id number] 1950 Unknown [id number] [id number] 1950 Unknown [id number] Unknown Social History Date Type Detail Facility Start: 10-26-2022 End: 05-21-2023 Tobacco smoking status NMIS Smokes tobacco daily [email or web address] History of tobacco use Cigarette Smoker [facility] Start: 10-26-2022 End: 05-24-2023 Cigarettes smoked current (pack per day) - Reported 0.5 [facility] Start: 10-26-2022 End: 05-21-2023 Tobacco use and exposure Smokeless tobacco [facility] Start: 02-02-2023 End: 05-24-2023 Alcohol intake Ex-drinker (finding) [facility] Start: 02-02-2023 End: 05-24-2023 Tobacco use panel [facility] Start: 10-26-2022 Tobacco Comment Started smokin g at age 16, quit at the age of 30 then started smoking again a little over a year ago (written 10/26/2022) [facility] Start: 1950 Sex Assigned At Not on file [facility] Start: 04-23-2023 Alcohol intake Lifetime non-d luiz (finding) [facility] Start: 03-29-2023 Alcohol Comment caffeine intak e : 2-3 cups per day coffee, soda [facility] Clinical Notes 01-09-2022 to 05-25-2023 Vaishnavi Levy, FOUNDER - CORPORATE INVESTIGATOR - 05/24/2023 1:00 PM EST Note Date & Type Note Facility 05-25-2023 Note [facility] CARDIOLOGY PROGR ESS NOTE HPI: Mirna Quezada is a 72 y.o. female here for routine F/U Patient here for 1 mo follow up chronic diastolic heart failure, CAD, and aortic valve stenosis. Had BMP last month after apt. BP yesterday at pre-surgery testing apt was 98/43. She denies chest pain, SOB, palpitations, and lightheadedness/syncope. Says PCP sent a referral to vascular surgery in [place] for carotid artery stenosis. Review of Systems Musculoskeletal: Positive for arthritis, back pain, joint pain, muscle weakness, myalgias and neck pain. Neurological: Positive for weakness. All other systems reviewed and are negative. 04/19/23 previous API HPI Patient being seen via telemedicine for follow up [facility] for acute on chronic diastolic heart failure, CAD, AO stenosis, HTN. She feels good s/p hospital stay. She denies chest pain, SOB, palpitations, LE edema, and lightheadedness/syncope. No testing since [facility] discharge. Visit Vitals BP 98/60 (BP Location: Left arm, Patient Position: Sitting) Pulse 91 Ht 1.6 m (5' 3 ) Wt 57.6 kg (127 lb) SpO2 93% BMI 22.50 kg/m??? Smoking Status Every Day BSA 1.6 m??? Allergies Allergen Reactions Augmentin [Amoxicillin-Pot Clavulanate] Medications: Current Outpatient Medications on File Prior to Visit Medication Sig Dispense Refill aspirin 81 mg EC tablet Take 1 tablet by mouth in the morning. atorvastatin (Lipitor) 20 mg tablet Take 1 tablet by mouth in the morning. carbidopa-levodopa (Sinemet) 25-100 mg tablet Take 1.5 tablets by mouth in the morning, at noon, in the evening, and at bedtime. citalopram (CeleXA) 40 mg tablet Take 40 mg by mouth in the morning. clopidogrel (Plavix) 75 mg tablet Take 1 tablet by mouth in the morning. cyanocobalamin (Vitamin B-12) 1,000 mcg tablet Take 1,000 mcg by mouth in the morning. HYDROcodone-acetaminophen ([place]) 10-325 mg tablet Take 1 tablet by mouth every 8 (eight) hours. isosorbide mononitrate ER (Imdur) 30 mg 24 hr tablet Take 1 tablet by mouth in the morning. metFORMIN (Glucophage) 500 mg tablet Take 500 mg by mouth with breakfast. oxybutynin XL (Ditropan-XL) 10 mg 24 hr tablet Take 10 mg by mouth in the morning. pregabalin (Lyrica) 200 mg capsule 200 mg in the morning, at noon, and at bedtime. primidone (Mysoline) 50 mg tablet Take 50 mg by mouth in the morning, noon, at afternoon, at bedtime,. rOPINIRole (Requip) 0.25 mg tablet Take 0.25 mg by mouth in the morning, noon, at afternoon, at bedtime,. tiZANidine (Zanaflex) 4 mg tablet Take 4 mg by mouth at bedtime. No current facility-administered medications on file prior to visit. Physical Exam: Constitutional: Appearance: Normal appearance. Without apparent distress, chronically ill HENT: Head: Normocephalic and atraumatic. Nose: Nose normal. Mouth/Throat: Mouth: Mucous membranes are moist. Eyes: Extraocular Movements: Extraocular movements intact. Conjunctiva/sclera: Conjunctivae normal. Neck: Vascular: No JVD. Cardiovascular: Rate and Rhythm: Normal rate and regular rhythm. Pulses: Dorsalis pedis pulses are 3 on the right side and 3on the left side. Posterior tibial pulses are 3 on the right side and 3 on the left side. Heart sounds: Normal heart sounds, S1 normal and S2 normal. Pulmonary: Effort: Pulmonary effort is normal. Breath sounds: Normal breath sounds. Abdominal: General: Bowel sounds are normal. Palpations: Abdomen is soft. Musculoskeletal: General: Normal range of motion. Cervical back: Normal range of motion. Right lower leg: No edema. Left lower leg: No edema. Skin: General: Skin is warm and dry. Capillary Refill: Capillary refill takes less than 2 seconds. Neurological: General: No focal deficit present. Mental Status: She is alert and oriented to person, place, and time. Psychiatric: Mood and Affect: Mood normal. Behavior: Behavior normal. Thought Content: Thought content normal. Judgment: Judgment normal. Labs: 04/19/23 renal function normal, K+normal, NA normal 04/05/23 Component Ref Range & Units 2 wk ago (04/05/23) 2 wk ago (04/04/23) 2 wk ago (04/03/23) Auto WBC 4.00 - 10.60 10*3/uL 6.75 7.99 RBC 3.80 - 5.00 10*6/uL 4.36 4.60 Hemoglobin 12.0 - 15.0 g/dL 14.1 14.8 Hematocrit 36.0 - 48.0 % 41.4 44.3 MCV 82.0 - 98.0 fL 95.0 96.3 MCH 27.0 - 33.0 pg 32.3 32.2 MCHC 32.0 - 35.0 g/dL 34.1 33.4 RDW 11.5 - 15.0 % 13.9 14.2 Platelets 150 - 400 10*3/uL 234 242 254 Component Ref Range & Units 2 wk ago (04/05/23) 2 wk ago (04/03/23) Sodium 136 - 145 mmol/L 140 141 Potassium 3.5 - 5.1 mmol/L 4.3 4.1 Chloride 98 - 107 mmol/L 108 High 104 CO2 21 - 31 mmol/L 27 27 BUN 7 - 25 mg/dL 30 High 32 High Creatinine 0.60 - 1.20 mg/dL 0.54 Low 0.65 Glucose 70 - 100 mg/dL 157 High 120 High Calcium 8.6 - 10.3 mg/dL 9.0 9.6 Anion Gap 7 - 20 mmol/L 9 14 eGFR >60.0 mL/min/1.73m*2 97.8 93.5 CM Component Ref Range & U (more content not included)... [facility] 05-25-2023 Note Patient here for 1 m o follow up chronic diastolic heart failure, CAD, and aortic valve stenosis. Had BMP last month after apt. BP yesterday at pre-surgery testing apt was 98/43. She denies chest pain, SOB, palpitations, and lightheadedness/syncope. Says PCP sent a referral to vascular surgery in [place] for carotid artery stenosis. Review of Systems Musculoskeletal: Positive for arthritis, back pain, joint pain, muscle weakness, myalgias and neck pain. Neurological: Positive for weakness. All other systems reviewed and are negative. [facility] 05-25-2023 Note 1. preoperative card iac risk stratification Patient is unable to do 4 METS without shortness of breath. Recent lexiscan showed fixed defect, no acute or reversible defects. From a cardiology perspective pt may proceed with planned spinal surgery, she is a moderate risk for a moderate to high risk surgery. [facility] 05-25-2023 Note stable [facility] 05-25-2023 Note [facility] II-III- current ly euvolemic without exacerbation Monitor daily weights, I&O, fluid restriction 1.5-2L/day, renal function and electrolytes- [facility] 05-25-2023 Note Lipid abnormalities are stable Continue lipitor 20 mg daily [facility] 05-25-2023 Note Hypertension is well controlled and continue all medications [facility] 05-24-2023 History of Present illness Narrative PAT Progress Note Pt Name: Mirna Quezada Birthdate: 1950 Date of evaluation: 05/24/2023 [x] Called to PAT. I spoke to the patient, Mirna Quezada, a 72 y.o. female, who is scheduled for an upcoming RE-DO L3-4 LUMBAR LAMINECTOMY by Christian Webster MD for Spondylolisthesis on 06/07/2023 at 0955. [x] The patient has an upcoming cardiology appointment to be used for an Interval History and Physical Note the day of surgery. Patient was hospitalized from 04/03/2023-04/05/2023 with complaints of shortness of breath and was found to have an acute on chronic heart failure exacerbation as well as pneumonia. She has known cardiomyopathy, aortic stenosis, CAD s/p NH and CABG x1 in 2000, heart failure, COPD, Parkinson's disease, diabetes, hypertension, hyperlipidemia. Follows with cardiology and has upcoming appointment prior to surgery. During hospitalization patient had carotid duplex done which showed carotid artery stenosis (unable to find imaging). EKG abnormal and according to cardiology note thought to be most consistent with type II myocardial infarction of supply demand mismatch in setting of acute heart failure exacerbation and pneumonia. No need for further ischemic evaluation at this time . due to Patient is being set up with vascular to see prior to surgery for clearance. Complete Echo TTE 04/04/2023: Findings: Left Ventricle: The left ventricle is normal [...] Atrium: The left atrium is mildly enlarged. Right Atrium: The right atrium is normal in size. Mitral Valve: Mild mitral annular calcification. No mitral regurgitation. Aortic Valve: Focal aortic cusp thickening is noted. Trivial aortic valve regurgitation. Mild aortic valve stenosis. Aortic Valve Measurements AV PGmean: 15.00 mmHg. AV DVI: 0.37. Tricuspid Valve: Normal tricuspid valve. Trivial tricuspid regurgitation. Pulmonic Valve: Normal pulmonary valve. No pulmonary regurgitation. Aorta: The aortic root exhibits normal size. Great Vessels: IVC: Normal size and course of the IVC. Pericardium: No pericardial effusion. EKG 04/04/2023: Sinus bradycardia Otherwise normal ECG EKG 04/03/2023: Sinus bradycardia T-wave abnormalities, Consider Inferior Ischemia Functional Capacity per pt: 1) Pt is able to walk 2 city blocks on level ground without SOB. 2) Pt is not able to climb 2 flights of stairs without SOB. 3) Pt is not able to walk up a hill for 1-2 city blocks without SOB. Patient uses wheelchair for ambulation. Vital signs: BP (!) 98/43 Pulse 80 Temp 97.8 F (36.6 C) (Infrared) Resp 16 Ht 1.6 m (5' 3 ) Wt 58.2 kg (128 lb 3.2 oz) SpO2 93% BMI 22.71 kg/m Physical Exam: General Appearance: Alert, and in no acute distress. Ill-appearing, frail. Mental status: Oriented to person, place, and time. Lungs: Diminished to auscultation all lobes. Decreased air flow. No wheezing, rales or rhonchi, and normal effort. Cardiovascular: Grade II/ systolic murmur Normal rate, regular rhythm, no gallop, or rub. Abdomen: Soft, nontender, nondistended, and active bowel sounds. Neuro: Tardive dyskinesia-like symptoms with tongue thrusting. Known Parkinson's disease. Tremors to bilateral upper extremities. Ambulating via wheelchair. Past Medical History: Past Medical History: Diagnosis Date Abnormal gait CAD (coronary artery disease) Carpal tunnel syndrome left Cervical myelopathy ([facility]) COVID 01/2020 hospitalized then rehab Depression on Celexa, daughter recently Diabetes ([facility]) checks blood sugar at home,averages 130-140, managed by Dr Nicolas Disc degeneration, lumbar Foot drop, left foot usually uses a walker Hearing loss History of blood transfusion during CABG History of coronary artery disease History of NH (myocardial infarction) 1998 initially treated with Stents then had CABG in 2000 Hyperlipidemia Hypertension managed by Dr Nicolas Lumbar disc disorder with myelopathy NH (myocardial infarction) ([facility]) 04/03/2023 Pt states that they thought I was having a heart attack, but the testing was negative. Neuropathy Seasonal allergies Spinal stenosis Tinnitus Tremors of nervous system patient doesn't know the medical diagnosis but said she was told it's very close to Parkinson's Under care of service provider 02/02/2023 pcp-[facility] in [place]-last visit dec 2022 Under care of service provider 02/02/2023 [id number] [facility] - due to visit jan 2023 Under care of service provider 02/02/2023 [id number] in [place]-last visit dec 2022 Under care of service provider 02/02/2023 [id number]-last visit oct 2022 Under care of team Pt to see vascular for surgery clearance for OR on 06/07/23 Urinary incontinence Bladder leakage, only wears Depends at night Walker as ambulation aid Past Surgical History: Past Surgical History: Procedure Laterality Date CARDIAC CATHETERIZATION x2--stent first one, cabg second one CARPAL TUNNEL RELEASE Left CATARACT EXTRACTION EXTRACAPSULAR W/ INTRAOCULAR LENS IMPLANTATION Bilateral CERVICAL SPINE SURGERY SECTION X2 CHOLECYSTECTOMY CORONARY ARTERY BYPASS GRAFT 2000 done at [facility] SPINAL FUSION L4-5, S1 Medications Prior to Admission: Prior to Admission medications Medication Sig Start Date End Date Taking? Authorizing Provider primidone (MYSOLINE) 250 MG tablet Take 1 tablet by mouth nightly at bedtime. 05/03/23 Yes Del Reilly MD atorvastatin (LIPITOR) 20 MG tablet Take 1 tablet by mouth daily 03/10/20 Del Reilly MD clopidogrel (PLAVIX) 75 MG tablet Take 1 tablet by mouth daily 09/13/22 Del Reilly MD HYDROcodone-acetaminophen (NORCO) 10-325 MG per tablet Take 1 tablet by mouth in the morning and 1 tablet at noon and 1 tablet in the evening. 10/11/22 Del Reilly MD isosorbide mononitrate (IMDUR) 30 MG extended release tablet Take 1 tablet by mouth daily 08/03/22 Del Reilly MD pregabalin (LYRICA) 200 MG capsule Take 1 capsule by mouth in the morning, at noon, and at bedtime. 04/30/14 Del Reilly MD nitroGLYCERIN (NITROSTAT) 0.[address] 1 tablet under the tongue every 5 minutes as needed for Chest pain Max dose of 5 tablets 09/04/11 Del Reilly MD nystatin (MYCOSTATIN) 904836 UNIT/GM powder Apply 1 application topically in the morning and 1 application in the evening. Patient not taking: Reported on 05/24/2023 Del Reilly MD tiZANidine (ZANAFLEX) 4 MG tablet Take 1 tablet by mouth 4 times daily 09/15/22 Del Reilly MD rOPINIRole (REQUIP) 0.25 MG tablet Take 1 tablet by mouth 4 times daily 09/13/22 Del Reilly MD METFORMIN HCL ER PO Take 1,000 mg by mouth daily 08/17/22 Del Reilly MD oxybutynin (DITROPAN-XL) 10 MG extended release tablet Take 1 tablet by mouth every morning 09/13/22 Del Reilly MD citalopram (CELEXA) 40 MG tablet Take 1 tablet by mouth every morning 10/24/22 Del Reilly MD aspirin 81 MG EC tablet Take 1 tablet by mouth daily Del Reilly MD Cyanocobalamin (VITAMIN B12 PO) Take 1,000 mcg by mouth daily Del Reilly MD carbidopa-levodopa (SINEMET) 25-100 MG per tablet Take 1 tablet by mouth 4 times daily 08/31/22 Del Reilly MD Investigations: Laboratory Testing: Recent Results (from the past 24 hour(s)) Basic Metabolic Panel Collection Time: 05/24/23 1:17 PM Result Value Ref Range Sodium 141 135 - 144 mmol/L Potassium 4.4 3.7 - 5.3 mmol/L Chloride 104 98 - 107 mmol/L CO2 25 20 - 31 mmol/L Anion Gap 12 9 - 17 mmol/L Glucose 105 (H) 70 - 99 mg/dL BUN 14 8 - 23 mg/dL Creatinine 0.5 0.5 - 0.9 mg/dL Est, Glom Filt Rate >60 >60 mL/min/1.73m2 Bun/Cre Ratio 28 (H) 9 - 20 Calcium 9.0 8.6 - 10.4 mg/dL CBC Collection Time: 05/24/23 1:17 PM Result Value Ref Range WBC 10.7 3.5 - 11.3 k/uL RBC 4.67 3.95 - 5.11 m/uL Hemoglobin 15.4 (H) 11.9 - 15.1 g/dL Hematocrit 46.0 36.3 - 47.1 % MCV 98.5 82.6 - 102.9 fL MCH 33.0 25.2 - 33.5 pg MCHC 33.5 28.4 - 34.8 g/dL RDW 15.0 (H) 11.8 - 14.4 % Platelets 168 138 - 453 k/uL MPV 11.6 8.1 - 13.5 fL NRBC Automated 0.0 0.0 per 100 WBC Recent Labs 05/24/23 1317 HGB 15.4* HCT 46.0 WBC 10.7 MCV 98.5 NA 141 K 4.4 CL 104 CO2 25 BUN 14 CREATININE 0.5 GLUCOSE 105* No results for input(s): COVID19 in the last 720 hours. CONNER Fall CNP Electronically signed 05/24/2023 at 2:08 PM documented in this encounter [facility] 04-19-2023 Note stable [facility] 04-19-2023 Note No acute symptoms- w ill monitor with serial echocardiograms [facility] 04-19-2023 Note Coronary artery dise ase is stable No beta navdeep r/t bradycardia Continue GDMT- ASA lipitor And plavix continue risk factor modifications- heart healthy diet, regular exercise as tolerated and continue all medications. [facility] 04-19-2023 Note [facility]- II-III current ly appears euvolemic- pt denied any concering symptoms Continue GDMT- Currently euvolemic without exacerbation, no Diuretic therapy needed at this time. She has actually lost weight since DC home. Monitor daily weights, I&O, fluid restriction 1.5-2L/day, renal function and electrolytes [facility] 04-19-2023 Note [facility] CARDIOLOGY PROGR ESS NOTE Date of phone call: 04/19/2023 HPI Patient being seen via telemedicine for follow up [facility] for acute on chronic diastolic heart failure, CAD, AO stenosis, HTN. She feels good s/p hospital stay. She denies chest pain, SOB, palpitations, LE edema, and lightheadedness/syncope. No testing since [facility] discharge. Previous HPI: Currently pt arrived to office via W/C. Denied chest pain, SOB, orthopnea, palpitations. States she has lost weight since dc to home, denied any leg swelling or fluid overload. Admits that she is following fluid restricition and heart healthy diet. Review of Systems Musculoskeletal: Positive for arthritis, back pain, joint pain, muscle weakness, myalgias and neck pain. Neurological: Positive for weakness. All other systems reviewed and are negative. Total time spent in Medical Discussion including obtaining history from the patient, review of labs, tests with the patient, discussion of assessment and plan: 30 minutes. [facility] The visit was initiated by the patient and conducted iws-ncus-of-face with use of audio-only real time telephone communication between patient and provider for a virtual visit. Verbal consent to provide and bill for this service was obtained on 04/19/2023. Diagnoses and all orders for this visit: Primary cardiomyopathy (CMS/HCC) - Basic metabolic panel; Future Chronic systolic heart failure (CMS/HCC) - Basic metabolic panel; Future Nonrheumatic aortic valve stenosis Chronic diastolic heart failure (CMS/HCC) Coronary artery disease involving andreafski coronary artery of andreafski heart without angina pectoris Review of Systems Constitutional: Negative. Respiratory: Negative. Cardiovascular: Negative. Neurological: Negative. All other systems reviewed and are negative. Visit Vitals BP 102/56 (BP Location: Left arm, Patient Position: Sitting) Pulse 74 Ht 1.6 m (5' 3 ) Wt 58.1 kg (128 lb) SpO2 95% BMI 22.67 kg/m??? Smoking Status Every Day BSA 1.61 m??? Allergies Allergen Reactions Augmentin [Amoxicillin-Pot Clavulanate] Medications: Current Outpatient Medications on File Prior to Visit Medication Sig Dispense Refill aspirin 81 mg EC tablet Take 1 tablet by mouth in the morning. atorvastatin (Lipitor) 20 mg tablet Take 1 tablet by mouth in the morning. carbidopa-levodopa (Sinemet) 25-100 mg tablet Take 1.5 tablets by mouth in the morning, at noon, in the evening, and at bedtime. citalopram (CeleXA) 40 mg tablet Take 40 mg by mouth in the morning. clopidogrel (Plavix) 75 mg tablet Take 1 tablet by mouth in the morning. cyanocobalamin (Vitamin B-12) 1,000 mcg tablet Take 1,000 mcg by mouth in the morning. HYDROcodone-acetaminophen (Twin Brooks) 10-325 mg tablet Take 1 tablet by mouth every 8 (eight) hours. isosorbide mononitrate ER (Imdur) 30 mg 24 hr tablet Take 1 tablet by mouth in the morning. metFORMIN (Glucophage) 500 mg tablet Take 500 mg by mouth with breakfast. oxybutynin XL (Ditropan-XL) 10 mg 24 hr tablet Take 10 mg by mouth in the morning. pregabalin (Lyrica) 200 mg capsule 200 mg in the morning, at noon, and at bedtime. primidone (Mysoline) 50 mg tablet Take 50 mg by mouth in the morning, noon, at afternoon, at bedtime,. rOPINIRole (Requip) 0.25 mg tablet Take 0.25 mg by mouth in the morning, noon, at afternoon, at bedtime,. tiZANidine (Zanaflex) 4 mg tablet Take 4 mg by mouth at bedtime. No current facility-administered medications on file prior to visit. Physical Exam: Constitutional: Appearance: Normal appearance. Without apparent distress Resp- non labored Psychiatric: Mood and Affect: Mood normal. Behavior: Behavior normal. Thought Content: Thought content normal. Judgment: Judgment normal. Labs: 04/05/23 Component Ref Range & Units 2 wk ago (04/05/23) 2 wk ago (04/04/23) 2 wk ago (04/03/23) Auto WBC 4.00 - 10.60 10*3/uL 6.75 7.99 RBC 3.80 - 5.00 10*6/uL 4.36 4.60 Hemoglobin 12.0 - 15.0 g/dL 14.1 14.8 Hematocrit 36.0 - 48.0 % 41.4 44.3 MCV 82.0 - 98.0 fL 95.0 96.3 MCH 27.0 - 33.0 pg 32.3 32.2 MCHC 32.0 - 35.0 g/dL 34.1 33.4 RDW 11.5 - 15.0 % 13.9 14.2 Platelets 150 - 400 10*3/uL 234 242 254 Component Ref Range & Units 2 wk ago (04/05/23) 2 wk ago (04/03/23) Sodium 136 - 145 mmol/L 140 141 Potassium 3.5 - 5.1 mmol/L 4.3 4.1 Chloride 98 - 107 mmol/L 108 High 104 CO2 21 - 31 mmol/L 27 27 BUN 7 - 25 mg/dL 30 High 32 High Creatinine 0.60 - 1.20 mg/dL 0.54 Low 0.65 Glucose 70 - 100 mg/dL 157 High 120 High Calcium 8.6 - 10.3 mg/dL 9.0 9.6 Anion Gap 7 - 20 mmol/L 9 14 eGFR >60.0 mL/min/1.73m*2 97.8 93.5 CM Component Ref Range & Units 2 wk ago (04/05/23) 2 wk ago (04/03/23) Magnesium 1.9 - 2.7 mg/dL 1.6 Low 1.2 Low Last lab values have been reviewed CV Testin04/15/23 TTE Left Ventricle: The left ventricle is normal size. Global left ventricular systolic fu (more content not included)... [facility] 04-19-2023 Note Patient being seen v ia telemedicine for follow up [facility] for acute on chronic systolic heart failure. She feels good s/p hospital stay. She denies chest pain, SOB, palpitations, LE edema, and lightheadedness/syncope. No testing since [facility] discharge. Review of Systems Musculoskeletal: Positive for arthritis, back pain, joint pain, muscle weakness, myalgias and neck pain. Neurological: Positive for weakness. All other systems reviewed and are negative. [facility] 04-05-2023 Note Patient just had vis itors arrive to see her. Cancelled transport request. Provided a list of local food pantries. [facility] 04-05-2023 Note 04/05/23 5642 Admission Assessment Questions Verify insurance with patient Yes (Medicare/[place] Medicaid) Do you understand medical disease or what brought you into the hospital? Yes ( I was sent here from [facility] because they thought I had a heart [...] Yes Does the patient have a case assistant assigned to them through their insurance? Yes Living Arrangement (Current/Prior to Hospitalization) Private residence;Home self care (to start [facility] per new referral from [facility], Lives with , has no adult kids, Has help from Step-Son for manufacturing systems engineer & Friend Christiana assists with ADL's) Does the patient have history of HHC or SNF? Yes (went to SNF in [place] about 2 yrs ago, no previous Rehab or HHC use) Assistive Device Walker;Wheelchair;Raised toilet seat (has shower chair, previously used Home O2 about 10-15 yrs ago) Patient's goal for discharge Home with [facility], new referral was sent per [facility] prior to admission Was patient reminded that goal for discharge is 11am? Yes Does the patient have transportation at discharge? No (Uses [facility] or [facility] for transportation; [facility] has no availability & too late to request ride through [facility]) Type of Residence/Post Acute Needs Private residence;Home care staff ([facility]) Is PT/OT appropriate? Yes Is PT/OT ordered? Yes Is SW consult appropriate? Yes Is SW consult ordered? Yes Do you understand the benefits of MyChart? No Were you able to send link and activate MyChart? No (patient declined as she does not know how computer works) Screen completed. Medically ready for discharge. Dc Plan: Home, start [facility] per referral that was originally sent per [facility]. Working on transportation issue home to [place]. Possible taxi ride Home pending [employer] In[employer] approval. [facility] Bedside RN would need to assist patient into taxi & patient's would need to be informed of approximate arrival time Home so that he can go outside to taxi w/ Walker or WC to assist patient into the Home. [facility] 04-05-2023 Note 2:57pm Sent the AVS to [facility]. 2:34pm Called [facility] per her request. They close at 4pm. Patient does not have any one that can come and get her. 2:21pm Met with the patient. She lives with her and plans on returning. She stated she will need help returning home and that she uses [facility]. Spoke with [facility]. They close at 4pm and are fully booked. She is active with [facility]. Will send updates. [facility] 04-05-2023 Note Physical Therapy Physical Therapy Evaluation [...] Level of Function Prior Function Level of Garrett: Needs assistance with ADLs, Needs assistance with [...] Stage III ( (more content not included)... [facility] 04-05-2023 Note Hospital Medicine Discharge Summary Final [...] CAD s/p CABG, COPD presents to the [facility] as a direct admission from [facility] with elevated troponin and acute on chronic [...] on room air -Upon initial arrival to [facility] on 03/29/2023, patient was requiring 2 L [...] home on 04/05/23. Dear Dr. Fidencio MD, [place] is advised to follow up with you [...] HYDROcodone-acetaminophen 10-325 mg tablet Commonly known as: Twin Brooks isosorbide mononitrate ER 30 mg 24 hr tablet Commonly known as: Imdur metFORMIN 500 mg tablet Commonly known as: Glucophage pregabalin 200 mg capsule Commonly known as: Lyrica primidone 50 mg tablet Commonly known as: Mysoline rOPINIRole 0.25 mg tablet Commonly known as: Requip tiZANidine 4 mg tablet Commonly known as: Zanaflex Mirna is allergic to augmentin [amoxicillin-pot clavulanate]. Disposition: [place] [place] [facility] [place] Condition: Stable Code Status: Prior Diagnostic Results Hematology: Results from last 7 days Lab Units 04/05/23 0522 04/04/23 0449 04/03/23210704/03/232106 WBC AUTO 10*3/uL 6.75 -- -- 7.99 HEMOGLOBIN g/dL 14.1 -- -- 14.8 HEMATOCRIT % 41.4 -- -- 44.3 MCV fL 95.0 -- -- 96.3 PLATELETS AUTO 10*3/uL 234 242 -- 254 INR -- -- 1.00 -- Chemistry: Results from last 7 days Lab Units 04/05/23 0522 04/03/23 2107 SODIUM mmol/L 140 141 POTASSIUM mmol/L 4.3 4.1 CHLORIDE mmol/L 108* 104 CO2 mmol/L 27 27 BUN mg/dL 30* 32* CREATININE mg/dL 0.54* 0.65 GLUCOSE mg/dL 157* 120* MAGNESIUM mg/dL 1.6* 1.2* CALCIUM mg/dL 9.0 9.6 PHOSPHORUS mg/dL -- 3.6 Results from last 7 days Lab Units 04/03/23 2107 AST U/L 25 ALT U/L 15 ALK [...] was 40 minutes. 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 Says in past no [...] Value Ventricular Rate 57 Atrial Rate 57 ID Interval 162 QRS DURATION 96 QT Interval 446 QTC CALCULATION(BAZETT) 434 P [place] 57 R-Terl[place] 79 T Wave [place] 11 Impression Sinus bradycardia Otherwise normal ECG [...] valve stenosis. A (more content not included)... [facility] 04-05-2023 Note Occupational Therapy Occupational Therapy Evaluation Patient Name: Mirna Quezada : 1950 Today's Date: 04/05/2023 Time In: 929 Time Out: 948 Mirna Quezada is an 72 y.o. female who came from home with pastMedical history of Parkinson's disease, hypertension, DM2, hyperlipidemia, CAD s/p CABG, COPD presents to the [facility] as a direct admission from [facility] with elevated troponin and acute on chronic [...] Spouse Home Adaptive Equipment: Walker rolling, Wheelchair-power (nc, [facility]) Home Layout: One level Home Access: Ramped entrance Bathroom Shower/Tub: Tub/shower unit Prior Level of Function Prior Function Level of Garrett: Needs assistance with ADLs, Needs assistance with homemaking (has COST CONTROLLER 4x/w for bath, assist with dressing at times) Prior Functional Mobility: Independent with rolling walker Receives Help From: first aid attendant (4x/w for bath) ADL Assistance: ( [...] Basic Assessment Current (more content not included)... [facility] 04-04-2023 Note Pt admitted to [facility] for acute on chronic diastolic HF; hx of Parkinson's disease, hypertension, DM2, hyperlipidemia, CAD s/p CABG, COPD. Pt has echo scheduled; previous echo from 11/03/22 estimated LVEF 50%. I will wait for current echo results to determine pt's eligibility to participate in cardiac rehab (CR) therapy with HF diagnosis and follow up with pt , if appropriate. MI CowartN thread spinner Outpatient Coordinator Cardiopulmonary Rehab [facility] 04-04-2023 Note Hospital Medicine Daily Progress Note - 04/04/2023 9:15 AM; Room: [id number] Admission: 04/03/2023 8:14 PM; Length of stay: 1 days THE HOSPITALIST TEAM PREFERS TO USE [employer] FOR COMMUNICATION 7AM-7PM. IF I DO NOT RESPOND WITHIN 15 MINUTES, PLEASE PAGE ME/CALL THROUGH THE [employer]KS AND RECREATION MANAGER. FROM 7PM-7AM, PLEASE PAGE [phone](COVR) Code Status: DNR CC-A Barriers to Discharge: clinical course Expected Discharge Date: tbd Discharge Destination: home Overview Patient is seen [...] on chronic diastolic CHF (congestive heart failure) ([facility]) Active Problems: COPD (chronic obstructive pulmonary disease) ([facility]) Coronary artery disease HTN (hypertension) H/O Parkinson's disease HLD (hyperlipidemia) Status post coronary artery bypass graft Type 2 diabetes mellitus without complication ([facility]) Elevated troponin Acute hypoxic respiratory failure ([facility]) Multifocal pneumonia Assessment and Plan Mirna Quezada is an 72 y.o. female who came from home with pastMedical history of Parkinson's disease, hypertension, DM2, hyperlipidemia, CAD s/p CABG, COPD presents to the [facility] as a direct admission from [facility] with elevated troponin and acute on chronic [...] on room air -Upon initial arrival to [facility] on 03/29/2023, patient was requiring 2 L [...] 1 half table (more content not included)... [facility] 04-04-2023 Note Hospital Medicine History and Physical 04/03/2023 10:32 PM THE HOSPITALIST TEAM PREFERS TO USE [employer] FOR COMMUNICATION 7AM-7PM. IF I DO NOT RESPOND WITHIN 15 MINUTES, PLEASE PAGE ME/CALL THROUGH THE PARKS AND RECREATION MANAGER. FROM 7PM-7AM, PLEASE PAGE [phone](COVR) Chief Complaint Direct admission from [place] for elevated troponin and acute on chromic CHF History of Present Illness Mirna Quezada is an 72 y.o. female who came from home with pastMedical history of Parkinson's disease, hypertension, DM2, hyperlipidemia, CAD s/p CABG, COPD presents to the [facility] as a direct admission from [facility] with elevated troponin and acute on chronic CHF exacerbation. 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 [facility] 10-31-2022 Note Patient here to re-e [facility]. She was last seen in September of [address] Jhaveri. She presents today for surgery clearance prior to lumbar laminectomy scheduled next week, 11/[address] [facility]. ECG and labs were done last week as part of preadmission testing. She denies chest pain, SOB, lightheadedness, and palpitations. Smoking less than half PPD she states. Review of Systems Respiratory: Positive for wheezing. Musculoskeletal: Positive for arthritis, back pain, joint pain, muscle weakness, myalgias and neck pain. Neurological: Positive for weakness. All other systems reviewed and are negative. [facility] 10-31-2022 Note Cardiovascular Medic ine [facility] SUBJECTIVE No chief complaint on file. [...] aortic valve stenosis [facility] She was last seen by Dr. [...] in the morning., Disp: , Rfl: HYDROcodone-acetaminophen (Twin Brooks) 10-325 mg tablet, Take 1 tablet by mouth every 8 (eight) hours., Disp: , Rfl: isosorbide mononitrate ER (Imdur) 30 mg 24 hr tablet, Take 1 tablet by mouth in the morning., Disp: , Rfl: metFORMIN XR (Glucophage-XR) 750 (more content not included)... [facility] 01-11-2022 Note [phone] [id number] [facility] 01-09-2022 Note [facility] Clinical Discharge Summary PERSON INFORMATION Name MIRNA QUEZADA Age 71 Years 1950 Sex FEMALE Language Ivorian PCP VILLA NICOLAS Marital Status Med Service Ambulatory Surgery Acct# Arrival 01/09/2022 12:18:00 Visit Reason SURGERY - LEFT CARPAL TUNNEL RELEASE Acuity LOS 019 06:34 Address: [address] [place] [address] [address] [facility] [phone] Comment: PROVIDER INFORMATION VITALS INFORMATION Vital Sign [...] Follow Below Instruc (more content not included)... [facility] 01-09-2022 Note Procedure: Decompres wilman of median nerve left wrist with release of carpal canal Pre Op Diagnosis: Carpal tunnel syndrome left Post Op Diagnosis: Carpal tunnel syndrome left Surgeon: Dr. Anneliese Rodriguez, DO Anesthesia: MAC local Indication for Surgery: [...] None [Electronically Signed on: 01/09/2022 17:13 EDT] Ambrose Rodriguez DO [Verified on: 01/09/2022 17:13 EDT] Ambrose Rodriguez DO [facility] Evaluation note Diagnosis 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 lumbar disc disorder with myelopathy, lumbar region documented in this encounter [facility] Summary Purpose Family History No Family History [...] section and content) DATE CREATED AUTHOR 09/19/2017 [facility] DATE CREATED AUTHOR AUTHOR'S ORGANIZ ATION 07/16/2021 [facility] DATE CREATED AUTHOR AUTHOR'S ORGANIZ ATION 01/19/2022 [facility] DATE CREATED AUTHOR AUTHOR'S ORGANIZ ATION 07/03/2022 [facility] DATE CREATED AUTHOR AUTHOR'S ORGANIZ ATION 02/08/2023 [facility] DATE CREATED AUTHOR AUTHOR'S ORGANIZ ATION 05/27/2023 [facility] DATE CREATED AUTHOR AUTHOR'S ORGANIZ ATION 05/27/2023 [facility] DATE CREATED AUTHOR AUTHOR'S ORGANIZ ATION 05/31/2023 [facility] EPIC Care Teams (unrecognized sec tion and content) Mold Shifter Relationship Specialty Start Date End Date Villa Nicolas MD [address] [place] [address] PCP - General Internal Medicine 09/27/22 Mold Shifter Relationship Specialty Start Date End Date Villa Nicolas MD [address] [place] [address] PCP - General Internal Medicine 09/27/22 Mold Shifter Relationship Specialty Start Date End Date Villa Nicolas MD [address] [place] [address] PCP - General Internal Medicine 08/15/22 Villa Nicolas MD [address] [place] [address] PCP - ACO Reach 09/04/22 Montse Celestin, KYLE Registered Nurse Family Medicine 04/06/23 Mold Shifter Relationship Specialty Start Date End Date Villa Nicolas MD [address] [place] [address] PCP - General Internal Medicine 09/27/22 Reason for Visit (unrecogniz ed section and content) Reason Onset Date Comments Med Refill 05/07/2023 FOR RECORDS PERTAINING TO PATIENTS WHO ARE [...] BE BASED ON THE PRIMARY CLINICAL RECORDS. [employer] [facility]. provides no warranty or guarantee of the accuracy or completeness of information in this document.
--- NOTE | 2023-06-01 12:03 | XR_ITS ---
The [address] [address] Patient Name: JAXSON QUEZADA MRN: [id number] date: 1950 Sex: F Assigned Patient Location: [facility] Current Patient Location: Accession/Order Number: [id number] Exam Date: 06/01/2023 12:45 Report Date: 06/02/2023 07:48 At the request of: NON-STAFF PHYSICIAN Procedure: XR lumbar spine bending only EXAMINATION: XR lumbar spine bending only HISTORY: Spinal Stenosis Of Lumbar Region COMPARISON: No relevant comparison available. FINDINGS: BONES: Only lateral views during flexion-extension were obtained. Posterior mechanical fusion L4-L5-S1 via bilateral pedicle screws and rods; no appreciable hardware or bone. Grade 1 anterolisthesis of L4 on 5. Mild facet arthropathy resulting in bone encroachment on the L4-L5 and L5-S1 neural foramen. DISC SPACES: Moderate marked narrowing L3-L4 through L5-S1. PARASPINOUS: Marked atherosclerotic disease of aorta without appreciable aneurysm. OTHER: Negative. XR/XR lumbar spine bending only IMPRESSION: 1. Mechanical fusion L4-L5-S1 without evidence of hardware failure. 2. Multilevel degenerative disc disease and mild facet arthropathy. Electronically authenticated by: BLAYNE CALDERÓN Date: 06/02/2023 07:48
--- NOTE | 2023-06-01 12:04 | MR_ITS ---
[address] [address] Patient Name: JAXSON QUEZADA MRN: [id number] date: 1950 Sex: F Assigned Patient Location: [facility] Current Patient Location: [facility] Accession/Order Number: [id number] Exam Date: 06/01/2023 12:10 Report Date: 06/02/2023 08:00 At the request of: NON-STAFF PHYSICIAN Procedure: MR lumbar spine wo con EXAMINATION: MR lumbar spine wo con HISTORY: Spinal Stenosis Of Lumbar Region COMPARISON: XR lumbar spine 06/01/2023, CT lumbar spine 10/17/2022 TECHNIQUE: A variety of imaging planes and parameters were utilized for visualization of suspected pathology. FINDINGS: For the purposes of numbering, sagittal T2 image # 8 extends from the T10 vertebral body superiorly to the S3-S4 level inferiorly. PARASPINAL AREA: Normal with no visible mass. BONES: Posterior mechanical fusion of L4-L5-S1 via bilateral pedicle screws and rods. Edema within the marrow cavity adjacent the contiguous endplates of L3 and L4 likely Modic type I degenerative changes. CORD/CAUDA EQUINA: Marked narrowing at the L3-L4 level secondary to disc bulging and ligamentum flavum thickening. DISC LEVELS: 12-L1: No significant disc/facet abnormality, spinal stenosis, or foraminal stenosis. L1-L2: No significant disc/facet abnormality, spinal stenosis, or foraminal stenosis. L2-L3: No significant disc/facet abnormality, spinal stenosis, or foraminal stenosis. L3-L4: Marked central canal narrowing with no CSF surrounding the descending nerve roots. Marked diffuse disc bulging without disc height reduction. Marked ligamentum flavum thickening bilaterally and mild-moderate degenerative facet arthropathy. L4-L5: Mild grade 1 anterolisthesis of L4 on 5 with mild posterior superior disc bulging causing mild foramen narrowing without significant central canal narrowing. Intervertebral disc spacer. L5-S1: Moderate left, mild right foramen narrowing. No significant central canal narrowing. Intervertebral disc spacer with marked disc space narrowing. MR/MR lumbar spine wo con IMPRESSION: 1. Marked central canal narrowing and right foramen narrowing at L3-L4 secondary to marked diffuse disc bulging and marked ligamentum flavum thickening. 2. Posterior mechanical fusion L4-L5-S1. Grade 1 anterolisthesis of L4 on 5 without appreciable change during flexion and extension on the corresponding lumbar spine radiographs. 3. Disc space narrowing and foraminal stenosis L5-S1. Electronically authenticated by: BLAYNE CALDERÓN Date: 06/02/2023 08:00
== END 2023-06-01 11:53 | disposition home or self-care (01) ==
LOC: RAD 11:53
PROVIDERS: PCP Internal Medicine
DX: M48.062 Spinal stenosis, lumbar region with neurogenic claudication (principal)
CPT/HCPCS: 72120; 72148

== ENCOUNTER 2023-07-24 01:57 | Inpatient (IN) | payer MEDICARE, MEDICAID, SELFPAY ==
[2023-07-24] VITALS (42 sets, daily range): BP systolic 72–147; BP diastolic 35–85; PULSE 63–125; TEMP 36.4–37.1; O2SAT 82–100; BMI 23.0; BMI 22.5
--- NOTE | 2023-07-24 02:13 | ECG_ITS ---
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
--- NOTE | 2023-07-24 02:15 | XR_ITS ---
The [address] [address] Patient Name: JAXSON QUEZADA MRN: [id number] date: 1950 Sex: F Assigned Patient Location: ED.MAIN Current Patient Location: ER Accession/Order Number: [id number] Exam Date: 07/24/2023 02:50 Report Date: 07/24/2023 04:11 At the request of: OLIVER SILVER Procedure: XR chest 1V EXAMINATION: XR chest 1V HISTORY: shortness of breath , hypotension, weakness COMPARISON: XR chest 03/31/2023 FINDINGS: LUNGS: Mild haziness and stranding within medial right lung base and lateral left lung base. Several small nodular opacities within right lung base. VASCULATURE: No increased pulmonary vasculature. PLEURA: No pneumothorax, effusion, or pleural thickening. CARDIAC: No cardiomegaly or cardiac silhouette abnormality. MEDIASTINUM: Prior sternotomy. No abnormal widening. BONES: Mechanical fusion of lower cervical spine. OTHER: Negative. XR/XR chest 1V IMPRESSION: 1. Mild bibasilar infiltrates versus atelectasis; less than previously seen. 2. Stable small right lung base nodules; nonspecific. Electronically authenticated by: BLAYNE CALDERÓN Date: 07/24/2023 04:11
--- OUTSIDE RECORDS SUMMARY | 2023-07-24 02:38 | XMS_ITS | CCD ---
Author Organization [facility] Care Team Providers Care Chief Juvenile Probation Officer Name Role Phone PHYSICIAN, DEFAULT Unavailable Unavailable PHYSICIAN, DEFAULT Unavailable Unavailable VILLA NICOLAS Unavailable Unavailable VILLA NICOLAS Primary Care Unavailable Jennifer, Ambrose Castellanos Admitting Unavail able Jennifer, Ambrose Castellanos Attending Unavail able VILLA NICOLAS Consulting Unavailable VILLA NICOLAS Primary Care Unavailable Jennifer, Ambrose Castellanos Admitting Unavail able Jennifer, Ambrose Castellanos Attending Unavail able Jennifer, Ambrose Castellanos Admitting Unavail able Jennifer, Ambrose Castellanos Attending Unavail able VILLA NICOLAS Primary Care Unavailable CHANTEL, REBECA Admitting Unavailable CHANTELREBECA Attending Unavailable FIDENCIO, DR TREVINO Primary Care Unavailable KAITLYNN, DR BLAYNE Ellis Consulting Unavailable CHANTELREBECA Consulting Unavailable FIDENCIO, DR TREVINO Admitting Unavailable FIDENCIO, DR TREVINO Attending Unavailable FIDENCIO, DR TREVINO Primary Care Unavailable CHANTELREBECA Admitting Unavailable CHANTELREBECA ALFARO Attending Unavailable FIDENCIO, DR TREVINO Primary Care Unavailable FIDENCIO, DR TREVINO Consulting Unavailable DELMI, DR CHARY Gonzalez Consulting Unavailable CHANTELREJIAMED Consulting Unavailable SINGH, YASMEEN Admitting Unavailable SINGHALEXAOE Attending Unavailable FIDENCIO, DR TREVINO Primary Care Unavailable GARRET BENJAMIN Consulting Unavailable SINGH, YASMEEN Consulting Unavailable FIDENCIO, DR TREVINO Admitting Unavailable FIDENCIO, DR TREVINO Attending Unavailable FIDENCIO, DR TREVINO Primary Care Unavailable FIDENCIO, DR TREVINO Consulting Unavailable DELMI, DR CHARY Gonzalez Consulting Unavailable CHRISTIAN WEBSTER Referring Unavailable VILLA NICOLAS Primary Care Unavailable Villa Nicolas MD Primary Care Provider Villa Nicolas MD Primary Care Provider Villa Nicolas MD Unavailable [phone] Sabi WRIGHT, Montse Unavailable PIRKL, SELENE Referring Unavailable ELTAHAWY, EHAB Referring Unavailable PIRKL, SELENE Referring Unavailable HOY, ALE Referring Unavailable BRUCE, SÁNCHEZ Admitting Unavailable DEENA GARCIA Attending Unavailable ROSANA MIKE Attending Unavailable DIONE CUEVAS Attending Unavailable DIONE CUEVAS Attending Unavailable MD Aron Rain Attending Provider [phone] JOSHUA Nicolas Primary Care Provider Aron Rain Attending Unavailable Aron Rain Admitting Unavailable Fidencio Villa Primary Care Unavailable VILLA NICOLAS B Attending Unavailable ZOË BAUMAN Attending Unavailable FIDENCIO VILLA B Referring Unavailable HEMTIKA BUENO Attending Unavailable HEMTIKA BUENO Attending Unavailable CRYSTAL DUNLAP Attending Unavailable OZË BAUMAN Referring Unavailable VILLA NICOLAS B Attending Unavailable CHRISTIAN WEBSTER Admitting Unavailable CHRISTIAN WEBSTER Attending Unavailable NICOLE NICOLASEL B Primary Care Unavailable FIDENCIO VILLA B Primary Care Unavailable TAMMYEFLINGER, CHRISTIAN Referring Unavailable TAMMYEFLINGER, CHRISTIAN Referring Unavailable FIDENCIO VILLA B Primary Care Unavailable Allergies Allergy Classification Reported Allergen(s) Allergy Type Date of Onset Reaction(s) Facility (4 sources) amoxicillin / clavulanate; Translations: [Augmentin] Drug Allergy 0 [facility] (1 source) Penicillins Drug allergy (disorder) 0 [facility] (1 source) DULoxetine Drug Allergy 7 [facility] (1 source) OXcarbazepine Drug Allergy 7 [facility] (5 sources) DULoxetine Drug Allergy 7 Hives, Other (See Comments) [employer] (4 sources) false ragweed pollen extract / western ragweed pollen extract Drug Allergy 3 Rash, Other (See Comments) [employer] (4 sources) OXcarbazepine Drug Allergy 7 Other (See Comments) [employer] (6 sources) Amoxicillin-Pot Clavulanate; Translations: [AMOXICILLIN-POT CLAVULANATE] Propensity to adverse reactions to drug 0 Angioedema [facility] (1 source) Penicillin G Drug Allergy [address] [facility] (1 source) Mixed Ragweed Propensity to adverse reactions 3 [facility] (4 sources) Amoxicillin; Translations: [amoxicillin] Drug Allergy 4 [facility] (4 sources) Clavulanate; Translations: [clavulanic acid] Drug Allergy 4 [facility] Medications Current Medications Medication Drug Class(es) Dates Sig (Normalized) Sig (Original) acetaminophen 325 mg oral tablet (1 source) Start: 07-20-2023 take 650 mg by mouth every four hours for pain 650 mg, Oral, EVERY 4 HOURS PRN, Starting on Sun07/20/23 at 1623, Until Discontinued, Other, Pain (1-10) Give in addition to any other pain medication ordered at same time for any pain indication. Post-op aspirin 81 mg delayed release oral tablet (8 sources) Platelet Aggregation Inhibitor, Nonsteroidal Anti-inflammatory Drug Start: 06-25-2023 Aspirin (Adult Low Dose Aspirin) 81 mg tablet,delayed release (DR/EC) Active 81 MG PO Daily June 25, 2023 12:00am Start: 12-28-2022 End: 07-20-2023 take 1 tablet by mouth in the morning aspirin 81 MG EC tablet Indications: PAD (peripheral artery disease) ([facility]/HCC) Take 1 tablet (81 mg) by mouth in the morning. 100 tablet 3 12/28/2022 Active clopidogrel 75 mg oral tablet (8 sources) P2Y12 Platelet Inhibitor Start: 06-25-2023 Clopidogrel Active M G PO June 25, 2023 12:00am Start: 09-13-2022 End: 07-20-2023 take 1 tablet by mouth once daily clopidogrel (PLAVIX) 75 MG tablet Take 1 tablet by mouth daily 0 09/13/2022 07/20/2023 Discontinued (Stop Taking at Discharge) entacapone 200 mg oral tablet (1 source) Axvxwygm-X-Uezxctxyuofqrhuqn Inhibitor entacapone (Comtan) 200 MG tablet Take 200 mg by mouth in the morning and 200 mg at noon and 200 mg in the evening and 200 mg before bedtime. 0 Active lisinopril 5 mg oral tablet (1 source) Angiotensin Converting Enzyme Inhibitor take 1 tablet by mouth in the morning lisinopril 5 MG tablet Take 5 mg by mouth in the morning. 0 Active morphine (PF) injection 2 mg (1 source) Star t: 06-25 morphine (PF) injection 2 mg ondansetron (ZOFRAN-ODT) disintegrating tablet 4 mg (1 source) Star t: 06-25 ondansetron (ZOFRAN-ODT) disintegrating tablet 4 mg Completed/Discontinued Medications Medication Drug Class(es) Dates Sig (Normalized) Sig (Original) acetaminophen 325 mg / HYDROcodone bitartrate 5 mg oral tablet (11 sources) Opioid Agonist Start: 07-20-2023 take 2 tablets by mouth every four hours as needed 2 tablet, Oral, EVERY 4 HOURS PRN, Starting on Sun07/20/23 at 1623, Until Discontinued, Pain Severe (7-10) Start: 06-25-2023 Hydrocodone-Ac etaminophen Active TAB PO June 25, 2023 12:00am Start: 03-15-2023 End: 05-07-2023 take 1 tablet by mouth every eight hours HYDROcodone-acetaminophen (Jasper) 10-325 MG tablet Indications: Intervertebral disc disorder of lumbar region with myelopathy Take 1 tablet by mouth every 8 (eight) hours 90 tablet 0 05/07/2023 Active Start: 10-11-2022 HYDROcodone-ac etaminophen (NORCO) 10-325 MG per tablet Take 1 tablet by mouth in the morning and 1 tablet at noon and 1 tablet in the evening. 0 10/11/2022 Active atorvastatin 20 mg oral tablet (9 sources) HMG-CoA Reductase Inhibitor Start: 06-25-2023 Atorvastatin Active MG PO June 25, 2023 12:00am Start: 04-03-2023 take 1 tablet by naida th in the morning atorvastatin (Lipitor) 40 MG tablet Indications: Mixed hyperlipidemia (CMS/HCC) TAKE 1 TABLET BY MOUTH IN THE MORNING 100 tablet 3 04/03/2023 Active Start: 03-10-2020 take 20 mg by mouth once daily 20 mg, Oral, DAILY, First dose on Sun07/20/23 at 1645, Until Discontinued calcium chloride 0.0014 meq/ml / potassium chloride 0.004 meq/ml / sodium chloride 0.103 meq/ml / sodium lactate 0.028 meq/ml injectable solution (1 source) Start: 07-20-2023 End: 07-20-2023 lactated ringers IV soln infusion carbidopa 25 mg / levodopa 100 mg oral tablet (9 sources) Aromatic Amino Acid Decarboxylation Inhibitor, Aromatic Amino Acid Start: 06-25-2023 Carbidopa-Levodopa Active TAB PO June 25, 2023 12:00am Start: 08-31-2022 take 1 tablet by naida th four times daily 1 tablet, Oral, 4 TIMES DAILY, First dose on Sun07/20/23 at 1700, Until Discontinued carbidopa-levodo pa (Sinemet) 25-100 MG tablet Take 1.5 tablets by mouth in the morning and 1.5 tablets at noon and 1.5 tablets in the evening and 1.5 tablets before bedtime. 0 Active citalopram 20 mg oral tablet (9 sources) Serotonin Reuptake Inhibitor Start: 07-21-2023 take 40 mg by mouth once daily in the morning 40 mg, Oral, EVERY MORNING, First dose on 07/21/23 at 0900, Until Discontinued Start: 06-25-2023 Citalopram Act angelo MG PO June 25, 2023 12:00am Start: 10-24-2022 End: 10-24-2023 take 1 tablet by mouth once daily in the morning citalopram (CELEXA) 40 MG tablet Take 1 tablet by mouth every morning 0 10/24/2022 Active diclofenac sodium 0.01 mg/mg topical gel (3 sources) Nonsteroidal Anti-inflammatory Drug Start: 09-23-2022 End: 05-24-2023 diclofenac sodium (VOLTAREN) 1 % GEL Apply topically 4 times daily 0 09/23/2022 05/24/2023 Discontinued (LIST CLEANUP) 24 hr isosorbide mononitrate 30 mg extended release oral tablet (9 sources) Nitrate Vasodilator Start: 06-25-2023 Isosorbide Mononitrate Active MG PO June 25, 2023 12:00am Start: 08-03-2022 take 30 mg by mouth once daily 30 mg, Oral, DAILY, First dose on 07/21/23 at 0900, Until Discontinued Do not crush or chew. 24 hr metFORMIN hydrochloride 500 mg extended release oral tablet (9 sources) Biguanide Start: 07-21-2023 take 1000 mg by mouth once daily 1,000 mg, Oral, DAILY, First dose on 07/21/23 at 0900, Until Discontinued Start: 06-25-2023 Metformin Acti ve MG PO June 25, 2023 12:00am Start: 12-28-2022 End: 12-28-2023 take 1 tablet [...] 08/17/2022 Active nitroglycerin 0.4 mg sublingual tablet (6 sources) Nitrate Vasodilator Start: 09-04-2011 0.4 mg, Moreno bLINGual, EVERY 5 MIN PRN, 3 doses, Starting on Sun07/20/23 at 1623, Until Discontinued, Chest pain Place 1 tablet under tongue upon chest pain, wait 5 minutes and may repeat up to 3 doses in 15 minutes. Do not crush or break. nystatin 100 unt/mg topical powder (5 sources) Polyene Antifungal End: 07-20-2023 nystatin (MYCOSTATIN) [id number] UNIT/GM powder Apply 1 application topically in the morning and 1 application in the evening. 0 07/20/2023 Discontinued (Stop Taking at Discharge) nystatin (Mycost atin) 241372 UNIT/GM powder every 12 (twelve) hours. 0 Active 24 hr oxybutynin chloride 10 mg extended release oral tablet (9 sources) Cholinergic Muscarinic Antagonist Start: 06-25-2023 Oxybutynin Chloride Active MG PO June 25, 2023 12:00am Start: 09-13-2022 take 10 mg by mouth once daily in the morning 10 mg, Oral, EVERY MORNING, First dose on 07/21/23 at 0900, Until Discontinued Do not crush or break. Start: 09-13-2022 take 1 tablet by naida th every twenty-four hours in the morning oxybutynin XL (Ditropan-XL) 10 MG 24 hr tablet Indications: Mixed stress and urge urinary incontinence Take 1 tablet (10 mg) by mouth in the morning. 90 tablet 3 09/13/2022 Active pregabalin 100 mg oral capsule (9 sources) Start: 07-20-2023 take 200 mg by mouth three times daily 200 mg, Oral, 3 times daily, First dose on Sun07/20/23 at 1645, Until Discontinued Start: 06-25-2023 Pregabalin Act angelo MG PO June 25, 2023 12:00am Start: 04-30-2014 take 1 capsule by mo uth at bedtime pregabalin (LYRICA) 200 MG capsule Take 1 capsule by mouth in the morning, at noon, and at bedtime. 0 04/30/2014 Active primidone 250 mg oral tablet (9 sources) Anti-epileptic Agent Start: 07-20-2023 take 250 mg by mouth once daily 250 mg, Oral, NIGHTLY, First dose on Sun07/20/23 at 2100, Until Discontinued Start: 06-25-2023 Primidone Acti ve MG PO June 25, 2023 12:00am Start: 05-03-2023 take 1 tablet by naida th once daily at bedtime primidone (MYSOLINE) 250 MG tablet Take 1 tablet by mouth nightly at bedtime. 0 05/03/2023 Active Start: 09-13-2022 End: 05-24-2023 take 1 tablet by mouth four times daily primidone (MYSOLINE) 50 MG tablet Take 1 tablet by mouth 4 times daily 0 09/13/2022 05/24/2023 Discontinued (LIST CLEANUP) rOPINIRole 0.25 mg oral tablet (8 sources) Nonergot Dopamine Agonist Start: 06-25-2023 take 0.25 mg by mouth three times daily Ropinirole Active 0.25 MG PO Three times daily June 25, 2023 12:00am Start: 09-13-2022 take 0.25 mg by mout h four times daily 0.25 mg, Oral, 4 TIMES DAILY, First dose on Sun07/20/23 at 1700, Until Discontinued 5 ml sodium chloride 9 mg/ml injection (4 sources) Start: 07-20-2023 take 1 dose intravenously twice daily 5-40 mL, IntraVENous, EVERY 12 HOURS SCHEDULED (2 times per day), First dose on Sun07/20/23 at 2100, Until Discontinued For Line Patency: Peripheral IV = 5 mL; Midline or Central Line = 10 mL/lumen. If following IV push medication, administer flush at same rate as the IV push. Flush volume is determined by type of infusion therapy being given. For non-viscous solutions use: Peripheral IV = 5 mL Midline or Central Line = 10 mL/lumen For viscous solutions (i.e. blood components, parenteral nutrition, contrast media, or after obtaining blood sample) use: Peripheral IV = 10 mL Midline or Central Line = 20 mL/lumen Post-op Start: 07-20-2023 take 1 mL by mouth every hour IntraVENous, at 100 mL/hr, CONTINUOUS, Starting on Sun07/20/23 at 1645 heplock with good po intake Post-op Start: 07-20-2023 IntraVENous, a t 5-250 mL/hr, PRN, if patient receiving piggyback infusions and maintenance fluids are not ordered OR KVO fluids to protect IV site / prevent frequent line interruptions/ long duration, Starting on Sun07/20/23 at 1623 For piggyback infusion, administer at same rate as piggyback for a total of 25 mL. Enter 25 mL into dose field and piggyback rate into rate field of order. If piggyback is infusing at a rate less than 100 mL/hr, enter 25 mL into dose field and 100 mL/hr into rate field of order. For KVO fluids, enter rate of 20 mL/hr or less into rate field of order. Post-op Start: 07-20-2023 take 5-40 mL intrave nously once as needed 5-40 mL, IntraVENous, PRN, Starting on Sun07/20/23 at 1623, Until Discontinued, Line Care, After every IV line use For Line Patency: Peripheral IV = 5 mL; Midline or Central Line = 10 mL/lumen. If following IV push medication, administer flush at same rate as the IV push. Flush volume is determined by type of infusion therapy being given. For non-viscous solutions use: Peripheral IV = 5 mL Midline or Central Line = 10 mL/lumen For viscous solutions (i.e. blood components, parenteral nutrition, contrast media, or after obtaining blood sample) use: Peripheral IV = 10 mL Midline or Central Line = 20 mL/lumen Post-op tiZANidine 4 mg oral tablet (9 sources) Central alpha-2 Adrenergic Agonist Start: 06-25-2023 Tizanidine Active MG PO June 25, 2023 12:00am Start: 09-15-2022 take 4 mg by mouth f our times daily 4 mg, Oral, 4 TIMES DAILY, First dose on Sun07/20/23 at 1700, Until Discontinued vancomycin 1000 mg IVPB in 250 mL NS addavial (1 source) Start: 07-21-2023 End: 07-21-2023 1,000 mg, IntraVENous, EVERY 12 HOURS, 1 dose, First dose on Sun07/21/23 at 0100 Antimicrobial Indications: Surgical Prophylaxis Post-op vitamin b12 1 mg oral tablet (6 sources) Vitamin B12 Start: 07-20-2023 take 1000 ug by mouth once daily 1,000 mcg, Oral, DAILY, First dose on Sun07/20/23 at 1645, Until Discontinued Start: 07-11-2022 take 1 tablet by naida th in the morning cyanocobalamin (Vitamin B-12) 1000 MCG tablet Take 1,000 mcg by mouth in the morning. 0 07/11/2022 Active take 1000 ug by mout h once daily Cyanocobalamin (VITAMIN B12 PO) Take [...] Coronary arteriosclerosis; Translations: [Atherosclerotic heart disease of crow coronary artery without angina pectoris] Onset: 08-10-2022 [...] Chronic Occlusion or stenosis of precerebral arteries (8 sources) Occlusion and stenosis of bilateral carotid [...] 03-08-2012 04-23-2023 Chronic Peripheral and visceral atherosclerosis (20 sources) Atherosclerosis of crow arteries of extremities with rest pain, bilateral [...] myelopathy, lumbar region] Onset: 11-19-2008 05-07-2023 Chronic Spondylosis; intervertebral disc disorders; other back problems (16 sources) Radiculopathy, lumbosacral region; Translations: [Spinal stenosis, lumbar region without neurogenic claudication] Onset: 09-30-2013 Episodic Substance-related disorders (3 sources) Heavy cigarette smoker; [...] Translations: [Tobacco use] Onset: 07-13-2015 04-23-2023 Episodic Unclassified (1 source) Low back pain, unspecified; Translations: [Low back pain, unspecified] Onset: 10-26-2022 Results Test Name Value Interpretation Reference Range Facility Glucose,Whole Bloodon 2023 Glucose [Mass/Vol] 116 mg/dL High 65-105 [facility] POC Glucose Fingerstickon Glucose [Mass/Vol] 116 mg/dL High 65 - 105 mg/dL [facility] [employer] [facility] Interpretation and review of laboratory results Abnormal [facility] FLU[facility]O FOR SURGICAL PROCEDUR ESon 07-20-2023 FLUORO FOR SURGICAL PROCEDURES Radiology exam is complete. No Radiologist dictation. Please follow up with ordering provider. Final result Normal [facility] Glucose,Whole Bloodon 2023 Glucose [Mass/Vol] 149 mg/dL High 65-105 [facility] Glucose [Mass/Vol] 159 mg/dL High 65-105 [facility] Glucose [Mass/Vol] 131 mg/dL High 65-105 [facility] Guidance-- during surgeryon 07-20-2023 Radiology exam is complete. No Radiologist dictation. Please follow up with ordering provider. [facility]SOLIDATED POC Glucose Fingerstickon Glucose [Mass/Vol] 149 mg/dL High 65 - 105 mg/dL [facility] Interpretation and review of laboratory results Abnormal [facility] [employer] [facility] Glucose [Mass/Vol] 159 mg/dL High 65 - 105 mg/dL [facility] Interpretation and review of laboratory results Abnormal [facility] [employer] [facility] Interpretation and review of laboratory results Abnormal [facility] [employer] [facility] [employer] [facility] US art pvr/post Ad 024 US art pvr/post LE [facility] [place] [address] Ultrasound Report Signed Patient: Mirna Quezada MR#: [id number] 41 : 1950 Acct:[id number] Age/Sex: 72 / F ADM Date: 07/06/23 Loc: Room: Type: [facility] Attending Dr: Aron Rain MD Ordering Provider: Aron Rain MD Date of Service: 07/06/23 US/US art pvr/post LE: I73.9 - Peripheral vascular disease, unspecified Copies to: Aron Rain MD LOWER EXTREMITY SEGMENTAL ARTERIAL DOPSCAN (PVR) INDICATION: Claudication PROCEDURE: Right arm blood pressure is 107 and left arm blood pressure is 95 mmHg. Pressures throughout the right lower extremity are 136 at the high thigh, 132 with the low thigh, 124th the calf, 190 at the ankle in the posterior tibial and 128 at the ankle in the dorsalis pedis. This gives a posterior tibial ankle-brachial index of 1.0 and the dorsalis pedis ankle-brachial index of 1.2. Pressures of the left lower extremity are 144 the high thigh, 137 at the low thigh, 111 at the calf, 119 mmHg at the ankle in the posterior tibial, and 104 mmHg at the ankle and the dorsalis pedis. This gives a posterior tibial ankle-brachial index of 1.1 and a dorsalis pedis ankle-brachial index of 0.97. Wave forms by plethysmography are normal. The patient is then walked on a treadmill and begins to have calf pain in about 1 1/2 minutes of exercise. Patient was able to continue for 5 minutes of total exercise. Following exercise there was no change in the ankle-brachial index in either lower extremity. US/US art pvr/post LE IMPRESSION: No hemodynamically significant peripheral vascular occlusive disease in either lower extremity at rest or with exercise Impression dictated by: Aron Rain M.D.07/09/2023 12:45 PM Dictation Location: [place] [address] Tech: Tamiko Diazce Transcribed By: FLOYD 07/09/23 1245 Dictated By: Aron Rain MD 07/09/23 124 Signed By: 07/09/23 1245 Normal [facility] US carotid doppler BIon - US carotid doppler BI [facility] [place] [address] Ultrasound Report Signed Patient: Mirna Quezada MR#: [id number] [birth year] : 1950 Acct:[id number] Age/Sex: 72 / F ADM Date: 07/06/23 Loc: Room: Type: [facility] Attending Dr: Aron Rain MD Ordering Provider: Aron Rain MD Date of Service: 07/06/23 US/US carotid doppler BI: I65.23 - Occlusion and stenosis of bilateral carotid mariaelena... Copies to: Aron Rain MD CAROTID DUPLEX INDICATION: Abnormal previous carotid duplex examination PROCEDURE: Color-flow duplex scanning is used to interrogate the extracranial carotid arterial system, as well as both vertebral arteries. Both carotid bifurcations show some smooth homogeneous plaque formation. The proximal right internal carotid artery shows a highest peak systolic velocity of 61.4 cm/s with an end-diastolic velocity of 17.2 cm/s . The mid internal carotid artery measures 91.4 cm/s peak systolic with an end diastolic velocity of 22.6 cm/s . The distal segment measures 61.5 cm/s peak systolic with an end diastolic velocity of 14.9 cm/s . The velocities of the right common carotid artery are 116 cm/s peak systolic and 14.3 cm/s end-diastolic and 68.2 cm/s peak systolic and 18 cm/s end diastolic distally. The peak systolic velocity ratio of the internal to the common carotid artery is 1.34 . The external carotid artery measures 167 cm/s peak systolic. The right vertebral artery is patent at 58.3 cm/s peak systolic with antegrade flow. The proximal left internal carotid artery shows a highest peak systolic velocity of 68.8 cm/s with an end-diastolic velocity of 9.34 cm/s . The mid internal carotid artery measures 60.9 cm/s peak systolic with an end diastolic velocity of 8.85 cm/s . The distal segment measures 46.2 cm/s peak systolic with an end diastolic velocity of 4.42 cm/s . The velocities of the left common carotid artery are 95.6 cm/s peak systolic and 11.8 cm/s end-diastolic and 70.6 cm/s peak systolic and 6.27 cm/s end diastolic distally. The peak systolic velocity ratio of the internal to the common carotid artery is 0.97 . The external carotid artery measures 218 cm/s peak systolic. The left vertebral artery is patent at 50.6 cm/s peak systolic with antegrade flow. US/US carotid doppler BI IMPRESSION: MILD PLAQUE FORMATION IS NOTED BILATERALLY, WITH LESS THAN 50% STENOSIS OF BOTH EXTRACRANIAL INTERNAL CAROTID ARTERY. BOTH VERTEBRAL ARTERIES ARE PATENT WITH ANTEGRADE FLOW. Impression dictated by: Aron Rain M.D.07/09/2023 12:43 PM Dictation Location: [place] [address] Tech: Laura Aguilar Transcribed By: FLOYD 07/09/23 1243 Dictated By: Aron Rain MD 07/09/23 124 Signed By: 07/09/23 1243 Normal [facility] Office Visiton 05-25-2023 Follow-up visit [id number] Abhinav Quezada sudheer Koenig 1950 F Date Provider Department Center 05/25/2023 DIONE GOMEZ CARD [facility] Family History Problem Relation Age of Onset Hypertension Mother ALS Father Family Status - Relation Status Age at Mother Father Level of Service:54267 [place] OFFICE/OUTPATIENT ESTABLISHED MOD MDM 30 MIN Normal [facility] Basic Metabolic Panelon 04-27 Anion gap [Moles/Vol] 12 mmol/L 9 - 17 mmol/L [employer] Calcium [Mass/Vol] 9.0 mg/dL 8.6 - 10. 4 mg/dL [employer] Chloride [Moles/Vol] 104 mmol/L 98 - 107 mmol/L [employer] CO2 [Moles/Vol] 25 mmol/L 20 - 31 mmol/L [employer] Creatinine [Mass/Vol] 0.5 mg/dL 0.5 - 0.9 mg/dL [employer] GFR/1.73 sq M.predicted MDRD (S/P/Bld) [Vol rate/Area] - PINF [employer] Comment on above: These results are not [...] 105 mg/dL High 70 - 99 mg/dL [employer] Interpretation and review of laboratory results Abnormal [employer] Potassium [Moles/Vol] 4.4 mmol/L 3.7 - 5.3 mmol/L [facility] Sodium [Moles/Vol] 141 mmol/L 135 - 144 mmol/L [facility] Urea nitrogen [Mass/Vol] 14 mg/dL 8 - 23 mg/dL [facility] Urea nitrogen/Creatinine [Mass ratio] 28 mg/mg High 9 - 20 [facility] Basic Metabolic Profon Anion gap [Moles/Vol] 12 mmol/L Normal 9-17 [facility] Comment on above: Performed By: #### B MP, CBC #### [facility] [address] [place] [address] [employer] Filler: Lucas Pink MD #### GLYHGB #### [address] [id number] [employer] Filler: Chalo Rendon MD BUN/CRE Ratio 28 High - [facility] Comment on above: Performed By: #### B MP, CBC #### [facility] [address] [place] [address] [employer] Filler: Lucas Pink MD #### GLYHGB #### [address] [address] [employer] Filler: Chalo Rendon MD Calcium [Mass/Vol] 9.0 mg/dL Normal 8.6-10.4 [facility] [place] Comment on above: Performed By: #### B MP, CBC #### [facility] [address] [place] [address] [employer] Filler: Lucas Pink MD #### GLYHGB #### [address] [address] [employer] Filler: Chalo Rendon MD Chloride [Moles/Vol] 104 mmol/L Normal 98-107 [facility] [place] Comment on above: Performed By: #### B MP, CBC #### [facility] [address] [place] [address] [employer] Filler: Lucas Pink MD #### GLYHGB #### [address] [address] [employer] Filler: Chalo Rendon MD CO2 [Moles/Vol] 25 mmol/L Normal 20-31 [facility] [place] Comment on above: Performed By: #### B MP, CBC #### [facility] [address] [place] [address] [employer] Filler: Lucas Pink MD #### GLYHGB #### [address] [address] [employer] Filler: Chalo Rendon MD Creatinine [Mass/Vol] 0.5 mg/dL Normal 0.5-0.9 [facility] [place] Comment on above: Performed By: #### B MP, CBC #### [facility] [address] [place] [address] [employer] Filler: Lucas Pink MD #### GLYHGB #### [address] [address] [employer] Filler: Chalo Rendon MD GFR/1.73 sq M.predicted among non-blacks MDRD (S/P/Bld) [Vol rate/Area] mL/min/{1.73_m2} Normal >60 [facility] [place] Comment on above: Result Comment: These results [...] Performed By: #### B MP, CBC #### [facility] [address] [place] [address] [employer] Filler: Lucas Pink MD #### GLYHGB #### [address] [address] [employer] Filler: Chalo Rendon MD Glucose [Mass/Vol] 105 mg/dL High 70-99 [facility] [place] Comment on above: Performed By: #### B MP, CBC #### [facility] [address] [place] [address] [employer] Filler: Lucas Pink MD #### GLYHGB #### [address] [address] [employer] Filler: Chalo Rendon MD Potassium [Moles/Vol] 4.4 mmol/L Normal 3.7-5.3 [facility] [place] Comment on above: Performed By: #### Alejandro HUDSON, CBC #### [facility] [address] [place] [address] [employer] Filler: Lucas Pink MD #### GLYHGB #### [address] [address] [employer]ised Container Filler: Chalo Rendon MD Sodium [Moles/Vol] 141 mmol/L Normal 135-144 [facility] [place] Comment on above: Performed By: #### B MP, CBC #### [facility] [address] [place] [address] [employer] Filler: Lucas Pink MD #### GLYHGB #### [address] [address] [employer] Filler: Chalo Rendon MD Urea nitrogen [Mass/Vol] 14 mg/dL Normal 8-23 [facility] [place] Comment on above: Performed By: #### B MP, CBC #### [facility] [address] [place] [address] [employer]ised [employer] Filler: Lucas Pink MD #### GLYHGB #### [address] [address] [employer] Filler: Chalo Rendon MD CBCon 05-24-2023 Erythrocyte distribution width (RBC) [Ratio] 15.0 % High 11.8-14.4 [facility] [place] Comment on above: Performed By: #### B MP, CBC #### [facility] [address] [place] [address] [employer] Filler: Lucas Pink MD #### GLYHGB #### [address] [address] [employer] Filler: Chalo Rendon MD Hematocrit (Bld) [Volume fraction] 46.0 % Normal 36.3-47.1 [facility] [place] Comment on above: Performed By: #### B MP, CBC #### [facility] [address] [place] [address] [employer] Filler: Lucas Pnik MD #### GLYHGB #### [address] [address] [employer]ised [employer] Filler: Chalo Rendon MD Hemoglobin (Bld) [Mass/Vol] 15.4 g/dL High 11.9-15.1 [facility] [place] Comment on above: Performed By: #### B MP, CBC #### [facility] [address] [place] [address] [employer] Filler: Lucas Pink MD #### GLYHGB #### [address] [address] [employer]ised [employer] Filler: Chalo Rendon MD MCH (RBC) [Entitic mass] 33.0 pg Normal 25.2-33.5 [facility] [place] Comment on above: Performed By: #### B MP, CBC #### [facility] [address] [place] [address] [employer] Filler: Lucas Pink MD #### GLYHGB #### [address] [address] [employer]ised [employer] Filler: Chalo Rendon MD MCHC (RBC) [Mass/Vol] 33.5 g/dL Normal 28.4-34.8 [facility] [place] Comment on above: Performed By: #### B MP, CBC #### [facility] [address] [place] [address] [employer] Filler: Lucas Pink MD #### GLYHGB #### [address] [address] [employer]ised [employer] Filler: Chalo Rendon MD MCV (RBC) [Entitic vol] 98.5 fL Normal 82.6-102.9 [facility] [place] Comment on above: Performed By: #### B MP, CBC #### [facility] [address] [place] [address] [employer] Filler: Lucas Pink MD #### GLYHGB #### [address] [address] [employer] Filler: Chalo Rendon MD NRBC Automated 0.0 per 100 WBC Normal 0.0 [facility] [place] Comment on above: Performed By: #### B MP, CBC #### [facility] [address] [place] [address] [employer] Filler: Lucas Pink MD #### GLYHGB #### [address] [address] [employer] Filler: Chalo Rednon MD Platelet mean volume (Bld) [Entitic vol] 11.6 fL Normal 8.1-13.5 [facility] Comment on above: Performed By: #### B MP, CBC #### [facility] [address] [place] [address] [employer] Filler: Lucas Pink MD #### GLYHGB #### [address] [address] [employer] Filler: Chalo Rendon MD Platelets (Bld) [#/Vol] 168 10*3/uL Normal 138-453 [facility] [place] Comment on above: Performed By: #### B MP, CBC #### [facility] [address] [place] [address] [employer] Filler: Lucas Pikn MD #### GLYHGB #### [address] [address] [employer]ised [employer] Filler: Chalo Rendon MD RBC (Bld) [#/Vol] 4.67 10*6/uL Normal 3.95-5.11 [facility] [place] Comment on above: Performed By: #### B MP, CBC #### [facility] [address] [place] [address] [employer] Filler: Lucas Pink MD #### GLYHGB #### [address] [address] [employer]urised Container Filler: Chalo Rendon MD WBC (Bld) [#/Vol] 10.7 10*3/uL Normal 3.5-11.3 [facility] [place] Comment on above: Performed By: #### B MP, CBC #### [facility] [address] [place] [address] [employer] Filler: Lucas Pink MD #### GLYHGB #### [address] [address] [employer]ised [employer] Filler: Chalo Rendon MD Erythrocyte distribution width (RBC) [Ratio] 15.0 % High 11.8 - 14.4 % [facility] Hematocrit (Bld) [Volume fraction] 46.0 % 36.3 - 47.1 % [facility] Hemoglobin (Bld) [Mass/Vol] 15.4 g/dL High 11.9 - 15.1 g/dL [facility] Interpretation and review of laboratory results Abnormal [facility] MCH (RBC) [Entitic mass] 33.0 pg 25.2 - 33.5 pg [facility] MCHC (RBC) [Mass/Vol] 33.5 g/dL 28.4 - 34.8 g/dL [facility] MCV (RBC) [Entitic vol] 98.5 fL 82.6 - 102.9 fL [facility] Nucleated RBC/100 WBC (Bld) [Ratio] 0.0 % 0.0 per 100 WBC [facility] Platelet mean volume (Bld) [Entitic vol] 11.6 fL 8.1 - 13.5 fL [facility] Platelets (Bld) [#/Vol] 168 10*3/uL [facility] RBC (Bld) [#/Vol] 4.67 10*6/uL 3.95 - 5.1 1 m/uL [facility] WBC other (Bld) [#/Vol] 10.7 [facility] Hemoglobin A1Con 05-24-2023 Glucose [Mass/Vol] 140 mg/dL Normal [facility] Comment on above: Result Comment: The ADA and AACC recommend providing the estimated average glucose result to permit better patient understanding of their HBA1c result. Performed By: #### C BC, BMP #### [facility] [address] [place] [address] [employer] Filler: Lucas Pink MD #### GLYHGB #### [facility] [address] [place], [place] [id number] [employer] Filler: Chalo Rendon MD HbA1c (Bld) [Mass fraction] 6.5 % High 4.0-6.0 [facility] Comment on above: Performed By: #### C BC, [facility] #### [facility] [address] [place], [place] [id number] [employer] Filler: Lucas Pink MD #### GLYHGB #### [facility] [address] [place], [place] [id number] [employer] Filler: Chalo Rendon MD Average glucose Estimated from glycated hemoglobin (Bld) [Mass/Vol] 140 mg/dL [facility] Comment on above: The ADA and AACC rec ommend providing the estimated average glucose result to permit better patient understanding of their HBA1c result. HbA1c (Bld) [Mass fraction] 6.5 % High 4.0 - 6.0 % [facility] Interpretation and review of laboratory results Abnormal [facility] Telemedicineon 04-19-2023 Telemedicine [id number] Abhinav Quezada W 1950 F Date Provider Department Center 04/19/2023 Sherri-DIONE CUEVAS [facility] Family History Problem Relation Age of Onset Hypertension Mother ALS Father Family Status - Relation Status Age at Mother Father Level of Service:42589 [place] PHYS/QHP TELEPHONE EVALUATION 21-30 MIN [facility] Orders Onlyon 04-11-2023 Orders Only [id number] Abhinav Quezada W 1950 Date Provider Department Center 04/11/2023 KATHERINE BONDS [facility] Family History Problem Relation Age of Onset Hypertension Mother ALS Father Family Status - Relation Status Age at Mother Father Normal [facility] Documentationon 04-10-2023 Documentation [id number] Abhinav Quezada W 1950 Date Provider Department Center 04/10/2023 [id number] CORRALES [facility] Family History Problem Relation Age of Onset Hypertension Mother ALS Father Family Status - Relation Status Age at Mother Father Reason for Visit and Comments: HF inpatient satisfaction survey sent. [Other] Normal [facility] 36on 04-08-2023 36 Discharge date: 04/05/23 Call [...] reminder. No other questions. Aurora Mix PA-C [facility] Cardiovascular Medicine [phone] Normal [facility] Telephoneon 04-08-2023 Telephone [id number] Abhinav Quezada W 1950 F Date Provider Department Center 04/08/2023 [id number] MIX [facility] HEART [facility] Family History Problem Relation Age of Onset Hypertension Mother ALS Father Family Status - Relation Status Age at Mother Father Normal [facility] 30on 04-05-2023 30 Problem: Pain - Adul [...] hematologic stability Outcome: Progressing Normal [facility] BASIC METABOLIC PANELon 03-26 Anion gap [Moles/Vol] 9 mmol/L Normal 7-20 [facility] Comment on above: Performed By: #### L AB15 ####[facility] ([facility])[address] [place] [address] Calcium [Mass/Vol] 9.0 mg/dL Normal 8.6-10.3 [facility] Comment on above: Performed By: #### L [id number] ####[facility] ([facility])[address] [place] [address] Chloride [Moles/Vol] 108 mmol/L High 98-107 [facility] Comment on above: Performed By: #### L [id number] ####[facility] ([facility])[address] [place] [address] CO2 [Moles/Vol] 27 mmol/L Normal 21-31 [facility] Comment on above: Performed By: #### L [id number] ####[facility] ([facility])[address] [place] [address] Creatinine [Mass/Vol] 0.54 mg/dL Low 0.60-1.20 [facility] Comment on above: Performed By: #### L [id number] ####[facility] ([facility])[address] [place] [address] GLOMERULAR FILTRATION RATE ML/MIN/1.73 SQ M.PREDICTED 97.8 mL/min/1.73m*2 Normal >60.0 [facility] Comment on above: Result Comment: The [facility]???s estimated glomerular filtration rate (eGFR) will no [...] of individuals. Performed By: #### L [id number] ####[facility] (BEAKER)[address] [place] [address] Glucose [Mass/Vol] 157 mg/dL High 70-100 [facility] Comment on above: Performed By: #### L [id number] ####[facility] (BEAKER)[address] [place] [address] Potassium [Moles/Vol] 4.3 mmol/L Normal 3.5-5.1 [facility] Comment on above: Performed By: #### L [id number] ####[facility] [place] [address] Sodium [Moles/Vol] 140 mmol/L Normal 136-145 [facility] Comment on above: Performed By: #### L [id number] ####[facility] (BEAKER)[address] [place] [address] Urea nitrogen [Mass/Vol] 30 mg/dL High 7-25 [facility] Comment on above: Performed By: #### L [id number] ####[facility] (BEAKER)[address] [place] [address] UREA NITROGEN/CREATININE (MASS RATIO) IN SER/PLAS 55.6 Normal [facility] Comment on above: Performed By: #### L [id number] ####[facility] [place] [address] CBCon 04-05-2023 Erythrocyte distribution width (RBC) [Ratio] 13.9 % Normal 11.5-15.0 [facility] Comment on above: Performed By: #### L [id number] #### [facility] ([facility]) [address] [place] [address] ERYTHROCYTE MEAN CORPUSCULAR HEMOGLOBIN CONCENTRATION (G/DL) BY AUTOMATED 34.1 g/dL Normal 32.0-35.0 [facility] Comment on above: Performed By: #### L [id number] #### [facility] ([facility]) [address] [place] [address] Hematocrit (Bld) [Volume fraction] 41.4 % Normal 36.0-48.0 [facility] Comment on above: Performed By: #### L [id number] #### [facility] ([facility]) [address] [place] [address] Hemoglobin (Bld) [Mass/Vol] 14.1 g/dL Normal 12.0-15.0 [facility] Comment on above: Performed By: #### L [id number] #### [facility] ([facility]) [address] [place] [address] MCH (RBC) [Entitic mass] 32.3 pg Normal 27.0-33.0 [facility] Comment on above: Performed By: #### L [id number] #### [facility] ([facility]) [address] [place] [address] MCV (RBC) [Entitic vol] 95.0 fL Normal 82.0-98.0 [facility] Comment on above: Performed By: #### L [id number] #### [facility] ([facility]) [address] [place] [address] PLATELETS (10*3/UL) IN BLOOD AUTOMATED COUNT 234 10*3/uL Normal 150-400 [facility] Comment on above: Performed By: #### L [id number] #### [facility] ([facility]) [address] [place] [address] RBC (Bld) [#/Vol] 4.36 10*6/uL Normal 3.80-5.00 [facility] Comment on above: Performed By: #### L [id number] #### [facility] ([facility]) [address] [place] [address] WBC (Bld) [#/Vol] 6.75 10*3/uL Normal 4.00-10.60 [facility] Comment on above: Performed By: #### L [id number] #### [facility] ([facility]) [address] [place] [address] MAGNESIUMon 04-05-2023 Magnesium [Mass/Vol] 1.6 mg/dL Low 1.9-2.7 [facility] Comment on above: Performed By: #### L [id number] #### [facility] ([facility]) [address] [place] [address] NURSNOTEon 04-05-2023 NURSNOTE [employer]acker notified hospitalist about blood pressure is 165/44 and her heart rate is 57. Patient was sleeping at the time. Hospitalist would like for designer/writer to monitor the patient if the patient is asymptomatic. Normal [facility] POCT GLUCOSE METER UNSOLICIT ED RESULTSon 04-05-2023 Glucose [Mass/Vol] 198 mg/dL High 70-105 [facility] Comment on above: Order Comment: Waive d Testing in the ED is performed under the ED CLIA certificate #[id number]. Result Comment: wwar rad Performed By: #### L [id number] ####[facility] ([facility])[address] [place] [address] Glucose [Mass/Vol] 248 mg/dL High 70-105 [facility] Comment on above: Order Comment: Waive d Testing in the ED is performed under the ED CLIA certificate #[id number]. Result Comment: wwar rad Performed By: #### L [id number] #### [facility] ([facility]) [address] [place] [address] Glucose [Mass/Vol] 141 mg/dL High 70-105 [facility] Comment on above: Order Comment: Waive d Testing in the ED is performed under the ED CLIA certificate #[id number]. Result Comment: wwar rad Performed By: #### L [id number] ####[facility] ([facility]AKER)[address] [place] [address] 30on 04-04-2023 30 Daily Case Managemen t Update Multidisciplinary rounds have been completed. Barriers to Discharge: from [facility] elevated troponin and HF. Ischemic evaluation that [...] Select all services needed for the patient [facility] (30 day convalescent stay) Please indicate [...] Answer: weakness 04/04/23 1151 Normal [facility] 30 Problem: Pain - Adul t Goal: [...] decreased discomfort Outcome: Progressing Normal [facility] ANTI-XA (HEPARIN LEVEL)on HEPARIN UNFRACTIONATED (U/ML) IN PPP BY CHROMOGENIC METHOD 0.36 IU/mL Normal 0.3-0.7 [facility] Comment on above: Result Comment: [place] roxaban and Apixaban will interfere with the anti Xa assay used to monitor UFH and LMWH. Performed By: #### L [id number] ####[facility] ([address] [employer] [employer] [place] [address] HEPARIN UNFRACTIONATED (U/ML) IN PPP BY CHROMOGENIC METHOD 0.18 IU/mL Low 0.3-0.7 [facility] Comment on above: Result Comment: [place] roxaban and Apixaban will interfere with the anti Xa assay used to monitor UFH and LMWH. Performed By: #### L [id number] #### [facility] (BEAKER) [address] [place] [address] HEPARIN UNFRACTIONATED (U/ML) IN PPP BY CHROMOGENIC METHOD 0.14 IU/mL Invalid Interpretation Code 0.3-0.7 [facility] Comment on above: Order Comment: Check anti-Xa level every 6 hours while on heparin infusion, or per protocol. Result Comment: [place]uka roxaban and Apixaban will interfere with the anti Xa assay used to monitor UFH and LMWH. Performed By: #### L [id number] #### [facility] ([employer]) [address] [place] [address] APTTon 04-04-2023 ACTIVATED PARTIAL THROMBOPLASTIN TIME IN PPP BY COAGULATION ASSAY 34.8 Seconds Normal 25.0-35.0 [facility] Comment on above: Order Comment: Basel ine aPTT before initiating heparin infusion. Result Comment: Clin ical significance of the APTT is questionable in the presence of heparin. Performed By: #### L [id number] #### [facility] (BEAKER) [address] [place] [address] CONSULTon 04-04-2023 CONSULT -- Attestation signed by Claritza Bello MD at 04/04/2023 4:03 PM I personally saw and examined the patient on the same date of service as resident/fellow Dr Garza. I discussed the findings and therapeutic plan with the resident/fellow Dr Garza. I agree with the documentation, except for any edits/updates below. Teaching Physician's Revisions: Claritza Bello MD, MPH, [facility], [facility]RIC, [facility] Interventional Cardiology Pager Email: [email or web address] Cardiology Consult Note Reason for Consult: CHF exacerbation HPI: Mirna Quezada is a 72 y.o. female with a past medical history significant for CAD status post CABG (ALMARAZ to LAD, SVG to D1, and SVG to OM1) 2000, ischemic cardiomyopathy, COPD, hypertension, type 2 diabetes mellitus who originally presented to [facility] with cough and was found to have community acquired pneumonia and acute heart failure exacerbation. Patient was transferred from [facility] for cardiology evaluation for elevated troponin. Patient presented to [facility] 03/29/2023. Labs were significant for elevated [...] EF 55 to60% and severe aortic valve calcifications.Cardiosilver olvera recommended that patient be transferred to [facility] for evaluation for cardiac catheterization. Of note, [...] by mouth in the morning. HYDROcodone-acetaminop hen (Jasper) 10-325 mg tablet Take 1 tablet by [...] (more content not included)... Normal [facility] NURSNOTEon 04-04-2023 NURSNOTE Grocery Packer phoned hospitalist to inform him that the patient blood pressure was 85/42 at 4:10 am and 101/46 at 4:20. Grocery Packer also let the hospitalist know that the patient was asymptomatic. Hospitalist would like for designer/writer to keep a close eye on the patient and her blood pressure; call the hospitalist if any changes. Normal [facility] PLATELET COUNTon 04-04-2023 PLATELETS (10*3/UL) IN BLOOD AUTOMATED COUNT 242 10*3/uL Normal 150-400 [facility] Comment on above: Performed By: #### L [id number] #### [facility] ([employer]) [address] [place] [address] POCT GLUCOSE METER UNSOLICIT ED RESULTSon 04-04-2023 Glucose [Mass/Vol] 209 mg/dL High 70-105 [facility] Comment on above: Order Comment: Waive d Testing in the ED is performed under the ED CLIA certificate #[id number]. Result Comment: gregg hardy Performed By: #### L [id number] ####[facility] ([employer])[address] [facility] [address] Glucose [Mass/Vol] 188 mg/dL High 70-105 [facility] [facility] Comment on above: Order Comment: Waive d Testing in the ED is performed under the ED CLIA certificate #[id number]. Result Comment: wwar rad Performed By: #### L [id number] #### [facility] ([employer]) [address] [place] [address] Glucose [Mass/Vol] 191 mg/dL High 70-105 [facility] Comment on above: Order Comment: Waive d Testing in the ED is performed under the ED CLIA certificate #[id number]. Result Comment: wwar rad Performed By: #### L [id number] ####[facility] ([employer])[address] [facility] [address] Glucose [Mass/Vol] 248 mg/dL High 70-105 [facility] Comment on above: Order Comment: Waive d Testing in the ED is performed under the ED CLIA certificate #[id number]. Result Comment: wwar rad Performed By: #### L [id number] #### [facility] ([employer]) [address] [place] [address] Glucose [Mass/Vol] 142 mg/dL High 70-105 [facility] Comment on above: Order Comment: Waive d Testing in the ED is performed under the ED CLIA certificate #[id number]. Result Comment: swey er2 Critical Value Noted Performed By: #### L [id number] #### [facility] ([facility]) [address] [place] [address] TROPONIN Ion 04-04-2023 Troponin I.cardiac [Mass/Vol] 0.06 ng/mL High 0.00-0.04 [facility] Comment on above: Performed By: #### L [id number] #### [facility] ([facility]) [address] [place] [address] Troponin I.cardiac [Mass/Vol] 0.07 ng/mL High 0.00-0.04 [facility] Comment on above: Performed By: #### L [id number] #### [facility] ([facility]) [address] [place] [address] B-TYPE NATRIURETIC PEPTIDEon 04-03-2023 Natriuretic peptide B (Bld) [Mass/Vol] 138 pg/mL High 0-100 [facility] Comment on above: Performed By: #### L [id number] ####[facility] ([facility])[address] [place] [address] CBC WITH AUTO DIFFERENTIALon 04-03-2023 Basophils (Bld) [#/Vol] 0.06 10*3/uL Normal 0.00-0.20 [facility] Comment on above: Performed By: #### L [id number] #### [facility] ([facility]) [address] [place] [address] Basophils/100 WBC (Bld) 0.8 % Normal 0.0-1.0 [facility] Comment on above: Performed By: #### L [id number] #### [facility] ([facility]) [address] [place] [address] Eosinophils (Bld) [#/Vol] 0.15 10*3/uL Normal 0.00-0.50 [facility] Comment on above: Performed By: #### L [id number] #### [facility] ([facility]) [address] [place] [address] Eosinophils/100 WBC (Bld) 1.9 % Normal 0.0-6.0 [facility] Comment on above: Performed By: #### L [id number] #### [facility] ([facility]) [address] [place] [address] Erythrocyte distribution width (RBC) [Ratio] 14.2 % Normal 11.5-15.0 [facility] Comment on above: Performed By: #### L [id number] #### [facility] ([facility]) [address] [place] [address] ERYTHROCYTE MEAN CORPUSCULAR HEMOGLOBIN CONCENTRATION (G/DL) BY AUTOMATED 33.4 g/dL Normal 32.0-35.0 [facility] Comment on above: Performed By: #### L [id number] #### [facility] ([facility]) [address] [place] [address] Hematocrit (Bld) [Volume fraction] 44.3 % Normal 36.0-48.0 [facility] Comment on above: Performed By: #### L [id number] #### [facility] ([facility]) [address] [place] [address] Hemoglobin (Bld) [Mass/Vol] 14.8 g/dL Normal 12.0-15.0 [facility] Comment on above: Performed By: #### L [id number] #### [facility] ([facility]) [address] [place] [address] Immature granulocytes (Bld) [#/Vol] 0.06 10*3/uL Normal 0.00-0.20 [facility] Comment on above: Performed By: #### L [id number] #### [facility] [address] [place] [address] Immature granulocytes/100 WBC (Bld) 0.8 % Normal 0.0-1.0 [facility] Comment on above: Performed By: #### L [id number] #### [facility] ([facility] [address] [place] [address] Lymphocytes (Bld) [#/Vol] 2.57 10*3/uL Normal 1.20-4.00 [facility] Comment on above: Performed By: #### L [id number] #### [facility] ([facility] [address] [place] [address] Lymphocytes/100 WBC (Bld) 32.2 % Normal 20.0-45.0 [facility] Comment on above: Performed By: #### L [id number] #### [facility] ([facility]) [address] [place] [address] MCH (RBC) [Entitic mass] 32.2 pg Normal 27.0-33.0 [facility] Comment on above: Performed By: #### L [id number] #### [facility] ([facility]) [address] [place] [address] MCV (RBC) [Entitic vol] 96.3 fL Normal 82.0-98.0 [facility] Comment on above: Performed By: #### L [id number] #### [facility] ([facility] [address] [place] [address] Monocytes (Bld) [#/Vol] 0.79 10*3/uL Normal 0.10-1.00 [facility] Comment on above: Performed By: #### L [id number] #### [facility] ([facility] [address] [place] [address] Monocytes/100 WBC (Bld) 9.9 % Normal 5.0-12.0 [facility] Comment on above: Performed By: #### L [id number] #### [facility] ([facility] [address] [place] [address] Neutrophils (Bld) [#/Vol] 4.36 10*3/uL Normal 1.60-7.60 [facility] Comment on above: Performed By: #### L [id number] #### [facility] ([employer]) [address] [place] [address] Neutrophils/100 WBC (Bld) 54.4 % Normal 40.0-72.0 [facility] Comment on above: Performed By: #### L [id number] #### [facility] ([facility]) [address] [place] [address] PLATELETS (10*3/UL) IN BLOOD AUTOMATED COUNT 254 10*3/uL Normal 150-400 [facility] Comment on above: Performed By: #### L [id number] #### [facility] ([facility]) [address] [place] [address] RBC (Bld) [#/Vol] 4.60 10*6/uL Normal 3.80-5.00 [facility] Comment on above: Performed By: #### L [id number] #### [facility] ([facility]) [address] [place] [address] WBC (Bld) [#/Vol] 7.99 10*3/uL Normal 4.00-10.60 [facility] Comment on above: Performed By: #### L [id number] #### [facility] ([facility]) [address] [place] [address] COMPREHENSIVE METABOLIC PANE Gaurav 04-03-2023 Albumin [Mass/Vol] 3.8 g/dL Normal 3.5-5.7 [facility] Comment on above: Performed By: #### L [id number] #### [facility] ([facility]) [address] [place] [address] ALP [Catalytic activity/Vol] 73 U/L Normal 34-104 [facility] Comment on above: Performed By: #### L [id number] #### [facility] ([facility]) [address] [place] [address] ALT [Catalytic activity/Vol] 15 U/L Normal 7-52 [facility] Comment on above: Performed By: #### L [id number] #### [facility] ([facility]) [address] [place] [address] Anion gap [Moles/Vol] 14 mmol/L Normal 7-20 [facility] Comment on above: Performed By: #### L [id number] #### [facility] ([employer]) [address] [place] [address] AST [Catalytic activity/Vol] 25 U/L Normal 13-39 [facility] Comment on above: Performed By: #### L [id number] #### [facility] (BEAKER) [address] [place] [address] Bilirubin [Mass/Vol] 0.3 mg/dL Normal 0.3-1.0 [facility] Comment on above: Performed By: #### L [id number] #### [facility] (BEAKER) [address] [place] [address] Calcium [Mass/Vol] 9.6 mg/dL Normal 8.6-10.3 [facility] Comment on above: Performed By: #### L [id number] #### [facility] ([facility] [address] [place] [address] Chloride [Moles/Vol] 104 mmol/L Normal 98-107 [facility] Comment on above: Performed By: #### L [id number] #### [facility] (BEAKER) [address] [place] [address] CO2 [Moles/Vol] 27 mmol/L Normal 21-31 [facility] Comment on above: Performed By: #### L [id number] #### [facility] ([facility] [address] [place] [address] Creatinine [Mass/Vol] 0.65 mg/dL Normal 0.60-1.20 [facility] Comment on above: Performed By: #### L [id number] #### [facility] (BEAKER) [address] [place] [address] GLOMERULAR FILTRATION RATE ML/MIN/1.73 SQ M.PREDICTED 93.5 mL/min/1.73m*2 Normal >60.0 [facility] Comment on above: Result Comment: The [facility]'s estimated glomerular filtration rate (eGFR) will no [...] individuals. Performed By: #### L [id number] #### [facility] ([facility]) [address] [place] [address] Glucose [Mass/Vol] 120 mg/dL High 70-100 [facility] Comment on above: Performed By: #### L [id number] #### [facility] ([facility]) [address] [place] [address] Potassium [Moles/Vol] 4.1 mmol/L Normal 3.5-5.1 [facility] Comment on above: Performed By: #### L [id number] #### [facility] ([facility]) [address] [place] [address] Protein [Mass/Vol] 6.7 g/dL Normal 6.0-8.3 [facility] Comment on above: Performed By: #### L [id number] #### [facility] ([facility]) [address] [place] [address] Sodium [Moles/Vol] 141 mmol/L Normal 136-145 [facility] Comment on above: Performed By: #### L [id number] #### [facility] ([facility]) [address] [place] [address] Urea nitrogen [Mass/Vol] 32 mg/dL High 7-25 [facility] Comment on above: Performed By: #### L [id number] #### [facility] ([facility]) [address] [place] [address] UREA NITROGEN/CREATININE (MASS RATIO) IN SER/PLAS 49.2 Normal [facility] Comment on above: Performed By: #### L [id number] #### [facility] ([facility]) [address] [place] [address] MAGNESIUMon 04-03-2023 Magnesium [Mass/Vol] 1.2 mg/dL Low 1.9-2.7 [facility] Comment on above: Performed By: #### L [id number] ####[facility] ([employer])[address] [place] [address] PHOSPHORUSon 04-03-2023 Magnesium [Mass/Vol] 3.6 mg/dL Normal 2.5-5.0 [facility] Comment on above: Performed By: #### L [id number] ####[facility] ([address] [facility])[address] [place] [address] PROTIME-INRon 04-03-2023 INR IN PPP BY COAGULATION ASSAY 1.00 Normal 0.90-1.10 [facility] Comment on above: Result Comment: ACCC P [...] 1995;[id number]. Performed By: #### L [id number] #### [facility] ([employer]) [address] [place] [address] PROTHROMBIN TIME (PT) IN PPP BY COAGULATION ASSAY 13.2 Seconds Normal 12.3-14.8 [facility] Comment on above: Performed By: #### L [id number] #### [facility] ([employer]AKER) [address] [place] [address] TROPONIN Ion 04-03-2023 Troponin I.cardiac [Mass/Vol] 0.10 ng/mL High 0.00-0.04 [facility] Comment on above: Performed By: #### L [id number] #### [facility] ([employer]ER) [address] [place] [address] BUN + Creatinineon Creatinine [Mass/Vol] 0.5 mg/dL Normal 0.5-0.9 [facility] Comment on above: Performed By: #### B UNCRT, CBC, GLU, LYTE #### [employer] [address] [place] [address] [employer] F[employer]: Chalo Rendon MD GFR/1.73 sq M.predicted among non-blacks MDRD (S/P/Bld) [Vol rate/Area] mL/min/{1.73_m2} Normal >60 [facility] Comment on above: Result Comment: [...] #### B UNCRT, CBC, GLU, LYTE #### [employer] [address] [place], [place] [phone] [employer] Filler: Chalo Rendon MD Urea nitrogen [Mass/Vol] 14 mg/dL Normal 8-23 [facility] Comment on above: Performed By: #### B UNCRT, CBC, GLU, LYTE #### [facility] [address] [place] [address] [employer] Filler: Chalo Rendon MD CBCon 02-02-2023 Erythrocyte distribution width (RBC) [Ratio] 14.3 % Normal 11.8-14.4 [facility] Comment on above: Performed By: #### B UNCRT, CBC, GLU, LYTE #### [address] [address] [employer] F[employer]: Chalo Rendon MD Hematocrit (Bld) [Volume fraction] 47.5 % High 36.3-47.1 [facility] Comment on above: Performed By: #### B UNCRT, CBC, GLU, LYTE #### [address] [address] [employer] Filler: Chalo Rendon MD Hemoglobin (Bld) [Mass/Vol] 16.5 g/dL High 11.9-15.1 [facility] Comment on above: Performed By: #### B UNCRT, CBC, GLU, LYTE #### [address] [address] [employer] F[employer]: Chalo Rendon MD MCH (RBC) [Entitic mass] 33.7 pg High 25.2-33.5 [facility] Comment on above: Performed By: #### B UNCRT, CBC, GLU, LYTE #### [address] [address] [employer] F[employer]: Chalo Rendon MD MCHC (RBC) [Mass/Vol] 34.7 g/dL Normal 28.4-34.8 [facility] Comment on above: Performed By: #### B UNCRT, CBC, GLU, LYTE #### [facility] [employer] [address] [place] [address] [employer] Filler: Chalo Rendon MD MCV (RBC) [Entitic vol] 97.1 fL Normal 82.6-102.9 [facility] Comment on above: Performed By: #### B UNCRT, CBC, GLU, LYTE #### [facility] [employer] [address] [place] [phone] [employer] F[employer]: Chalo Rendon MD NRBC Automated 0.0 per 100 WBC Normal 0.0 [facility] Comment on above: Performed By: #### B UNCRT, CBC, GLU, LYTE #### [address] [address] [employer]: Chalo Rendon MD Platelet mean volume (Bld) [Entitic vol] 12.3 fL Normal 8.1-13.5 [facility] Comment on above: Performed By: #### B UNCRT, CBC, GLU, LYTE #### [address] [address] [employer] F[employer]: Chalo Rendon MD Platelets (Bld) [#/Vol] 149 10*3/uL Normal 138-453 [facility] Comment on above: Performed By: #### B UNCRT, CBC, GLU, LYTE #### [address] [address] [employer] F[employer]: Chalo Rendon MD RBC (Bld) [#/Vol] 4.89 10*6/uL Normal 3.95-5.11 [facility] Comment on above: Performed By: #### B UNCRT, CBC, GLU, LYTE #### [address] [address] [employer] F[employer]: Chalo Rendon MD WBC (Bld) [#/Vol] 8.8 10*3/uL Normal 3.5-11.3 [facility] Comment on above: Performed By: #### B UNCRT, CBC, GLU, LYTE #### [address] [address] [employer] F[employer]: Chalo Rendon MD Electrolyteson 02-02-2023 Anion gap [Moles/Vol] 10 mmol/L Normal 9-17 [facility] Comment on above: Performed By: #### B UNCRT, CBC, GLU, LYTE #### [address] [phone] [employer] Filler: Chalo Rendon MD Chloride [Moles/Vol] 104 mmol/L Normal 98-107 [facility] Comment on above: Performed By: #### B UNCRT, CBC, GLU, LYTE #### [facility] [address] [place] [address] [employer] Filler: Chalo Rendon MD CO2 [Moles/Vol] 24 mmol/L Normal 20-31 [facility] Comment on above: Performed By: #### B UNCRT, CBC, GLU, LYTE #### [facility] [address] [place] [address] [phone] [employer] Filler: Chalo Rendon MD Potassium [Moles/Vol] 4.2 mmol/L Normal 3.7-5.3 [facility] Comment on above: Performed By: #### B UNCRT, CBC, GLU, LYTE #### [facility] [address] [place] [address] [employer] Filler: Chalo Rendon MD Sodium [Moles/Vol] 138 mmol/L Normal 135-144 [facility] Comment on above: Performed By: #### B UNCRT, CBC, GLU, LYTE #### [facility] [address] [place] [address] [phone] [employer] Filler: Chalo Rendon MD Glucoseon 02-02-2023 Glucose [Mass/Vol] 127 mg/dL High 70-99 [facility] Comment on above: Performed By: #### B UNCRT, CBC, GLU, LYTE #### [facility] [address] [place] [address] [phone] [employer] Filler: Chalo Rendon MD Office Visiton 10-31-2022 Follow-up visit [id number] Abhinav Quezdaa 1950 F Date Provider Department Center 10/31/2022 [id number]-[id number] MIKE [facility] Family History Problem Relation Age of Onset Hypertension Mother ALS Father Family Status - Relation Status Age at Mother Father Level of Service:38944 [place] OFFICE/OUTPATIENT NEW MODERATE MDM 45-59 MINUTES Normal [facility] Hemoglobin A1Con 10-27-2022 Glucose [Mass/Vol] 157 mg/dL Normal [facility] Comment on above: Result Comment: The ADA and AACC recommend providing the estimated average glucose result to permit better patient understanding of their HBA1c result. Performed By: #### C BC, BMP #### [facility] [address] [place] [address] [employer] Filler: Lucas Pink MD #### GLYHGB #### [address] [address] [employer] Filler: Chalo Rendon MD HbA1c (Bld) [Mass fraction] 7.1 % High 4.0-6.0 [facility] Comment on above: Performed By: #### C RUBEN, BMP #### [facility] [address] [place] [address] [employer] Filler: Lucas Pink MD #### GLYHGB #### [address] [address] [employer] Filler: Chalo Rendon MD Basic Metabolic Profon 10-26 Anion gap [Moles/Vol] 9 mmol/L Normal -17 [facility] Comment on above: Performed By: #### C BC, BMP #### [facility] [address] [place] [address] [employer] Filler: Lucas Pink MD #### GLYHGB #### [address] [address] [employer] Filler: Chalo Rendon MD BUN/CRE Ratio 27 High 9-20 [facility] Comment on above: Performed By: #### C RUBEN, BMP #### [facility] [address] [place] [address] [employer] Filler: Lucas Pink MD #### GLYHGB #### [address] [address] [employer] Filler: Chalo Rendon MD Calcium [Mass/Vol] 8.8 mg/dL Normal 8.6-10.4 [facility] Comment on above: Performed By: #### C BC, BMP #### [facility] [address] [place] [address] [employer] Filler: Lucas Pink MD #### GLYHGB #### [address] [address] [employer] Filler: Chalo Rendon MD Chloride [Moles/Vol] 105 mmol/L Normal 98-107 [facility] Comment on above: Performed By: #### Lali MIRANDA, BMP #### [facility] [place] [address] [employer] Filler: Lucas Pink MD #### GLYHGB #### [address] [address] [employer] Filler: Chalo Rendon MD CO2 [Moles/Vol] 27 mmol/L Normal 20-31 [facility] Comment on above: Performed By: #### Lali MIRANDA, BMP #### [facility] [address] [place] [address] [employer] Filler: Lucas Pink MD #### GLYHGB #### [address] [address] [employer] Filler: Chalo Rendon MD Creatinine [Mass/Vol] 0.6 mg/dL Normal 0.5-0.9 [facility] Comment on above: Performed By: #### C RUBEN, BMP #### [facility] [address] [place] [address] [employer] Filler: Lucas Pink MD #### GLYHGB #### [address] [address] [employer] Filler: Chalo Rendon MD GFR/1.73 sq M.predicted among non-blacks MDRD (S/P/Bld) [Vol rate/Area] mL/min/{1.73_m2} Normal >60 [facility] Comment on above: Result Comment: These results [...] renal tubular secretion. Performed By: #### C BC, BMP #### [facility] [place] [address] [employer] Filler: Lucas Pink MD #### GLYHGB #### [address] [address] [employer] Filler: Chalo Rendon MD Glucose [Mass/Vol] 134 mg/dL High 70-99 [facility] Comment on above: Performed By: #### C BC, BMP #### [facility] [place] [address] [employer] Filler: Lucas Pink MD #### GLYHGB #### [address] [address] [employer] Filler: Chalo Rendon MD Potassium [Moles/Vol] 4.3 mmol/L Normal 3.7-5.3 [facility] Comment on above: Performed By: #### C BC, BMP #### [facility] [address] [place] [address] [employer] Filler: Lucas Pink MD #### GLYHGB #### [address] [phone] [employer] Filler: Chalo Rendon MD Sodium [Moles/Vol] 141 mmol/L Normal 135-144 [facility] Comment on above: Performed By: #### C BC, BMP #### [facility] [address] [place] [address] [phone] [employer] Filler: Lucas Pink MD #### GLYHGB #### [address] [phone] [employer] Filler: Chalo Rendon MD Urea nitrogen [Mass/Vol] 16 mg/dL Normal 8-23 [facility] Comment on above: Performed By: #### C BC, BMP #### [facility] [address] [place] [address] [phone] [employer] Filler: Lucas Pink MD #### GLYHGB #### [address] [address] [employer] Filler: Chalo Rendon MD [facility] Erythrocyte distribution width (RBC) [Ratio] 13.7 % Normal 11.8-14.4 [facility] Comment on above: Performed By: #### C BC, BMP #### [facility] [address] [place] [address] [employer] Filler: Lucas Pink MD #### GLYHGB #### [address] [phone] [employer] Filler: Chalo Rendon MD Hematocrit (Bld) [Volume fraction] 47.2 % High 36.3-47.1 [facility] Comment on above: Performed By: #### C RUBEN, BMP #### [facility] [address] [place] [phone] [employer] Filler: Lucas Pink MD #### GLYHGB #### [address] [address] [employer] Filler: Chalo Rendon MD Hemoglobin (Bld) [Mass/Vol] 15.9 g/dL High 11.9-15.1 [facility] Comment on above: Performed By: #### C BC, BMP #### [facility] [address] [place] [address] Pressurised Container Filler: Lucas Pink MD #### GLYHGB #### [address] [address] Pressurised Container Filler: Chalo Rendon MD MCH (RBC) [Entitic mass] 33.5 pg Normal 25.2-33.5 [facility] [place] Comment on above: Performed By: #### C BC, BMP #### [facility] [address] [place] [address] Pressurised Container Filler: Lucas Pink MD #### GLYHGB #### [address] [address] Pressurised Container Filler: Chalo Rendon MD MCHC (RBC) [Mass/Vol] 33.7 g/dL Normal 28.4-34.8 [facility] [place] Comment on above: Performed By: #### C BC, BMP #### [facility] [address] [place] [address] Pressurised Container Filler: Lucas Pink MD #### GLYHGB #### [address] [address] Pressurised Container Filler: Chalo Rendon MD MCV (RBC) [Entitic vol] 99.6 fL Normal 82.6-102.9 [facility] [place] Comment on above: Performed By: #### C BC, BMP #### [facility] [address] [place] [address] Pressurised Container Filler: Lucas Pink MD #### GLYHGB #### [address] [address] Pressurised Container Filler: Chalo Rendon MD NRBC Automated 0.0 per 100 WBC Normal 0.0 [facility] [place] Comment on above: Performed By: #### C BC, BMP #### [facility] [address] [place] [address] Pressurised Container Filler: Lucas Pink MD #### GLYHGB #### [address] [address] Pressurised Container Filler: Chalo Rendon MD Platelet mean volume (Bld) [Entitic vol] 12.0 fL Normal 8.1-13.5 [facility] [place] Comment on above: Performed By: #### C BC, BMP #### [facility] [address] [place] [address] Pressurised Container Filler: Lucas Pink MD #### GLYHGB #### [address] [address] Pressurised Container Filler: Chalo Rendon MD Platelets (Bld) [#/Vol] 141 10*3/uL Normal 138-453 [facility] [place] Comment on above: Performed By: #### C BC, BMP #### [facility] [place] [address] Pressurised Container Filler: Lucas Pink MD #### GLYHGB #### [address] [address] Pressurised Container Filler: Chalo Rendon MD RBC (Bld) [#/Vol] 4.74 10*6/uL Normal 3.95-5.11 [facility] [place] Comment on above: Performed By: #### C BC, BMP #### [facility] [address] [place], [place] [address] Pressurised Container Filler: Lucas Pink MD #### GLYHGB #### [facility] [address] [place], [place] [address] Pressurised Container Filler: Chalo Rendon MD WBC (Bld) [#/Vol] 9.4 10*3/uL Normal 3.5-11.3 [facility] [place] Comment on above: Performed By: #### C BC, BMP #### [facility] [address] [place], [place] [address] Pressurised Container Filler: Lucas Pink MD #### GLYHGB #### [address] [place], [place] [address] Pressurised Container Filler: Chalo Rendon MD MRI LSPINE WO CONon 06-29-19 MRI [facility] WO CON EXAM: MRI of the lumbar [...] by: GARRET BENJAMIN Date: 2022-06-28 07:23 Normal [facility] US CAROTID ART BILon 10-28-2 022 [...] by: CHARY AWAD Date: 2022-01-20 17:33 Normal [facility] Consent Formson 01-18-2022 Consent Forms [id number] [facility] CREATININEon 01-16-2022 Creatinine [Mass/Vol] 0.66 mg/dL Normal 0.55-1.02 [facility] Comment on above: Performed By: #### C RUFINO #### [facility] [address] [place] [address] Dr. Deborah Solorio EGFR-AF BELGIAN >60 Normal >=60 [facility] Comment on above: Performed By: #### C RUFINO #### [facility] [address] [place] [address] Dr. Deborah Solorio EGFR-NON AF BELGIAN >60 Normal >=60 [facility] Comment on above: Performed By: #### C RUFINO #### [facility] [address] [address] [address] Deborah Solorio CTA ABD ASHLEY WWO [...] by: BLAYNE CALDERÓN Date: 2022-01-16 19:35 Normal [facility] Coding Summaryon 01-11-2022 Coding Summary HTMLBase 64 CnapynisNQb9aLj+PGhlYW Q+WQ1SDRGuI79ugXDdvE5N O0kKRS3SOTAZSDYMIS5LDR 1ipAJ1COeaI3PazvFt TvrocYXwNE04OKu2HHR0wF slLVcrqC5gsZPuZ7r8WoGm WJ52zV36ACnbVAIvLxN1En ZpbjsgbWFy F0ygJqQpkCHaDfv+PHRhYm xlIHdpZHRoPScxMDAlJyBz aGsgFI7kHq4dYLWuLNEqzK xhcHNlOiBj z3ujHBDxNLeiJH4izEnuS4 IrjOQ5JRLtu8s5Zv96gKG+ WRGfVMN8uPlzOCnmp987Se Mix1jiIXD1 fGYmACyeMRM3T63ga6T0SG QlIGBhYCE3kHK2jC6fmBpa jpplG7QwjYOxNvH6KIQ6cI CtgZ7gfWsa nvqwmC6iUng+O34JNP5UOF ONIK4QYph3Y2PcTezpyHW+ BH03DNLmYS86dVNhgHVjx7 rdrEb0YpNp EDUwHEV9qGrlKSjos6MuEJ SvF21sxNClq7M3LWFsbOtd gYGmRwTmrJD9kL1yFGjuta kaq0kcmjwj Fivip1tewq73cW33T89fSY jtXJIfLWF8PDTfDEBwcSrl eo3xtC1dTj5+GWpyy7uyw5 wuzGd0WoIv ZUZtlaBwtRmxTMR2m1UhTr 23Z3HsaSyla8MoMdc7gz84 xEHcw6G8uVO5MOeoSUDtiN 3jZOzpRkP5 EYPbTmDlhF99cHZbWZcyQs 8osEzrzQzoZL6sEDNtaopi ESTapW9qSNLolFJivZeeWY 4wNTBpbjtm q621CaVxVFA7BBKozBNvA1 ImcA0nFoHqEDLdPZNfV2So zVWqSVekB972DImbXmC9VS CwmsQoI0Pw BCPpoAawKcO6d6L5Ce7Ow9 LqcbdvFKX8PCqdXGLyLqI9 MnLcZiH9N4MyBst5SAMpoT uqAF3wD6Lo HSXpsuzopjcqiZW2IJDfIK QjeE31zXMlXHgfCj4pp3O5 l555KFPwXYOcdV83Ii4hcZ ogMTBwdCBU hI0nzmltq6fhecxtBmDdMA ImHRu4KFp4XWVceTwzNjFn YUC5OwD3LFH2dPBuiB4hyO dodkibmG5q Oyc+V23hsZ5wTEY7VCG9dz yiGHCsgqQfBF76ML15K2Gq PjwvdGFibGU+PGRpdiBzdH msKJ8eHdDw w4iat1DySVcnT8SbFFPiQO ffAwc3ALZsJTY7xSM3nB1d IPIeKSvsa6G3qOG0Z9Adgp Ihla9jg3it JAEvEEroT49thCQlp3M3AN LlyZM1XRCqrPmzEoEorX83 Oyc+NRTjeZrwx5HtUijol8 qwr0mpbPw4 HlUhWOFbaaOqnJbnRMK5l1 MyYp22D94aAKfoAVKvPVWf AANtLTLpaDjjun3anY5vOr 8+PGNvbCB3 uQY6yK2uDSKhNxP9SArbM5 31KtPcoMMnXkxuv0lmb6yd aSi4UbWmGSOxfwHswZimLS N5w5FqYm07 L38wLHneULZmVXEpRKYeYN WjoGqwhq0gtW4zFm3+PC9j m0axqe98kJ12jXN+PHRkIH U3pDpaUMbh VJPxfB2eHUiuKvG9CUGcOc PpjQ81wVMgJSliMe3brXth uVfsGV3jEUNwbuyvv993Zi Nnm1hlWFQi rPPjIOywQGR7S93ud0D7YU QhSUCoGOL3yHM9xY1swChn bjogbGVmdDsgdmVydGljYW nvOCerG289 IHRvcDsnPlBhdGllbnQgTm TiJTd0T8TzXkk9EWThcPwx VM2vdJSnIWhmCm1uhZaqqM gpDE7oXSQy xwcsr815DrBby4wzSPOnxK UvRKqiRFE7Y32uz5F8UQGr BHVyYTQ1cBC1sE2frEkcgp ogbGVmdDsg yjDzuZxyWAvkWDjlP313UD RvcDsnPkJpcnRoIERhdGU6 OF22KX52nNSzp3F3pMN7P7 BhZGRpbmct pldnmXE2VKJvUIJhlY66Mh 6anGxgKg2zJNZkZOJ2BKNr gJUbO7JcwY5eXuNaBOJfYW BoO3QnrPQo XCznA407ESppWmG8NMDuxx ZyX4SgWWFqxHvgOrQ0e9K8 Sa3WP6Y6RA48GZ08sIOjt1 T2cYQ4A6Al CTXonfhobredlZK5CYFrOL ZyfT95Ja9mgMhzAp6bEZDk WZL9ZNIcbIRkL3DfeN1mCv AjMDAwMDAw A7KpgPToIDvxF552PJmhLw O4NVFujbLgU1GaOMRfvCeg LkV3p7H6Uh8OUYv6DV79QX 74mXCzy1T9 yVH8E5RyGKCyvlrkemwowE Q1GOTiJOGcyN54Gy5ckSgi Zg7hTGTrKPS3IXOneVVrF0 QndN0nMyEz BGWqVDVzI0IhiPXrPOhzT2 01ARcgEuP4AVKpbaOrC9Ve IDEfhTnzQlB7b2X5Sy0YQT TuWU70WVQ2 lIP7PU62FJ25H9RwMueuaQ FibGU+PHRhYmxlIHdpZHRo MMzrCLEfWuQtiRxeHH0vLr 9yZGVyLWNv tNlaxHMxLrBnp5vpGKUaWJ rwFT1ddAwlK8WfeXA6AHNf l4p6Dq26T20gE2MflBU+PG EyeWH6sDS6 dH4rFfCqQxD9FMmvV690St XfnGKeBqgmb2jpq6qpnIl0 ErG1NHVbjaWwvHdgKXQ3v3 GbJr14F06f IHdpZHRoPSIxNSUiIHZhbG crwf1dxB9wIc1+PGNvbCB3 aMX4eO0bJpUvMeV8JAsqP5 49InRvcCIv Barly7egz0nmkTj8OkTqHK XqfyWtaNhmVMT6o2AdGe42 V9PviUsaq9WsCpm8wu99pQ Ynt7S0sGS4 O6AlNVMyprpfdGYiuBufWM 9xLFPwhwjqGUIgyG4rNUHe V6s3AzKeGyL1BNcjC1Cqie I6XJVnzWJi XHgwXLN2J95kr0H3WDHaXZ WlZOO9uFD8hP0hmDewglxz bGVmdDsgdmVydGljYWwtYW jgS371HYDh rOgyXVKalH8qOCPhdKNiuK hnJD5rMPLbsbsfIlQOYUoN LCBCUkVOREEgVzwvdGQ+PH MoAPK9xIok VSyqAQJepQ0bGAQeT6j6Of CiQuZ2ZYnuD7FcJCSekakl Hb41uD1mMcElVjT2RAeyB7 OeveM4GEQp pWNoPKphIMR3Y47xo4C5XN ZxTEUxDPH7rME6mB0viTad bjogbGVmdDsgdmVydGljYW uoCVjnI966 UVQfdWmtOvK7PyC3SpK4IY T8L4YxJkf6MRMcwZotQN1i mWAwYHblQj2joOzouTwbXD 4wNTBpbjtw WDErrM8sXRQogVGdwTuuHU 7dCIDdcunmx722ZpPaKPS6 UKVcfXCoF2PfvF9pVhDxBV NeTNJtN7Bj sZJzKGbeN485RUwiOsJ8YI HsjkFrL6QgALLueMlzRoW3 j4X2Fs65GGXMLIYiuzaptB Q+PHRkIHN0 nRmoVBucZUAdtM4oCXNdK1 b2CaGoLoY3QTewC2KfXMVq pjbjMl83rM5xHaLyOgO3TG lcS2ZewhA0 BLRorQYoFPetLSF1A19og7 A5BEKfJJCaGEB5oMM9pQ1k bGlnbjogbGVmdDsgdmVydG ljYWwtYWxp N292QIChdYbwDmCVNZLAFG wvdGQ+MQJeQKD3zGifVTem ECXuaL2lSIHsQ4q5ZgTqEu R0PYmeT9Xr JBQpodyvGr31mR2oZjErRe P5YCadE4HcwhS8YLFwmMBq BAlnNUA4Y43uo7Z2HUCkTZ FqKCT8hHX1 iB7ryFouawanhOQkvZyfpk DqwHqqQKikSYllS894UJBq iMvlAnAkxDLAmLFgHDJ6QD 28ZE14K5Md PjwvdGFibGU+PHRhYmxlIH dpZHRoPScxMDAlJyBzdHls CK2cYd8eIDUwOEXycUyptA YbXqXyp4ru XMAqEItfIU0ljYkzT1BaaS K3HXCoy9s1Cq40A97pM2Xb dXA+FBKliFT9dDJ5pC6hZv SrLxK0JWuy E618AsClbIFxYqgaa9pcs9 jpzPm7DgAqNWFkipTleHzx FVA4m4ZbLg61G18dYKopWW RoPSIyMCUi HMDftCtszu8yuJ0tTb0+PG MdfUS8qDV9uW6aNcDjTyF4 MBsmZ953ZsHkiOAnAbauC5 6vS7SnrII+ AZBuAwi8RGNkuHtrTZ0ptD QyZGtqWo0lLUG5BeQdFdLr GYzyG6QwAFGcrxkxzoghkC A5XAKsRLWf eT52Sc9zpQnhIr8nXITpNH M9QZQxtIGgG9TkgQ1zKvLb NALmHBUlV4WtcZLvHXevL4 57CVqpQmM4 QZOhlqTlW2HmNXZdaAnnWo F2p1M3Qn4EgYbmaPRvIR0s YrFrHQp3C1UvYez9RXKeaB pkJS4tnSJb JMfwHs5jdNqkxOgkPV8iCI Jbrkpqr271QhGwz2crLARe uVLbBEvpUAG9T91px0R1IH MwMDAwMDA7 jHN4uN9esYdrfrihcZRusJ rinbNfpGndCLnuYFmoL692 IDIhtQfcXeVRGaa7R5WrXs s7ONWebKer ZG7uvEUxEAyuJh9suWencG daYK8xLPUxyaryd903JaEb k6pzYBYgvQXxMXjuIOA8W9 4uk7O7ZVUy CVTgFGY3gKY0qB8leWflul ogbGVmdDsgdmVydGljYWwt BZupK330NBQtuOxoGt9SWb h8V3DlPgw2 HWChfKxvBC9cgAOiRCuhHo 5aePqhiEwtON9hNNJzfwfh v759KbFnl0cpWDUtaHPfQP xpIXW1Q25m t2N5DKJbAOTyFSJ1lHV2kN 1hbGlnbjogbGVmdDsgdmVy jFgjPCkuADapV466GFBrjB snPlBheWVy OjwvdGQ+MX13vm01P4BeAj enNyz0SBTuPHH6vDR7dD4j SJZbNLirn5H3xJI2G1Pgtr Nesi3pa1bi YXB (more content not included)... [facility] Consultation/Specialist Note on 01-11-2022 Consultation/Specia list Note [id number] [facility]-10-2022 Consent Forms [id number]#[id number] [facility] Intraoperative Recordon 01-10-2022 MAGR Intraoperative Record MAGR Intra-Op Record Summary Primary Physician: Ambrose Rodriguez DO Finalized Date/Time: 01/10/22 11:08:45 Pt. Name: MIRNA QUEZADAO.B./Sex: 1950 FEMALE Med Rec #: [id number] Physician: Ambrose Rodriguez DO Financial #: [id number] Pt. Type: D Room/Bed: / Admit/Disch: 01/09/22 [...] Role Performed Surgeon - Primary Anesthesiologist of Erp Developer Record Time In 01/09/22 16:20:00 01/09/22 16:20:00 01/09/22 16:20:00 Time Out 01/09/22 16:57:00 01/09/22 16:57:00 01/09/22 16:57:00 Procedure Carpal Tunnel Carpal Tunnel Carpal Tunnel Release(Left) Release(Left) Release(Left) Last Modified By: Aurora Collazo RN, Barbara RN Long, Barbara RN 01/09/22 17:23:23 01/09/22 17:23:23 01/09/22 17:23:23 Entry 4 Entry 5 Case Attendee Duyen Medina CST DIESEL ENGINE TESTER/RANDYASavanna DIESEL ENGINE TESTER Role Performed Scrub Personnel Tile Classifier Time In 01/09/22 16:20:00 01/09/22 16:20:00 Time [...] By Aurora Collazo RN Scrub 10% Povidone-Iodine [place] Prep Area (Im.270) Elbow and forearm, Hand [...] of tootie (more content not included)... Normal [facility] Anesthesia Noteon 01-09-2022 Anesthesia Note Patient: DANI QUEZADA Age: 71 years Sex: FEMALE : 1950 Associated Diagnoses: None Author: Clint Bernal MD Postoperative Information Post Operative Note: Operative Day. Anesthetic utilized: Monitored anesthesia care. Health Status Allergies: Allergic Reactions (All) Severe Augmentin- Angioedema. Problem list (past medical history): All Problems Cigarette smoker / SNOMED CT 238844498 / Confirmed Diabetes / SNOMED CT 555278213 / Confirmed H/O Parkinson's disease / SNOMED CT 817571067 / Confirmed History of heart attack / SNOMED CT 4606248448 / Confirmed HTN (hypertension) / SNOMED CT 3913744088 / Confirmed Physical Examination VS/Measurements Vital Signs [...] on: 01/09/2022 16:59 EDT] Clint Bernal MD [facility] Anesthesia Note Patient: DANI QUEZADA Age: 71 [...] All Problems Cigarette smoker / SNOMED CT 258573734 / Confirmed Diabetes / SNOMED CT 327468895 / Confirmed H/O Parkinson's disease / SNOMED CT 788432266 / Confirmed History of heart attack / SNOMED CT 7310537108 / Confirmed HTN (hypertension) / SNOMED CT 9393777414 / Confirmed Histories Family History: No family history items have been selected or recorded. Procedure history: Cholecystectomy (25341091). Triple coronary bypass (916443735). delivery (7786642927). Comments: 12/30/2021 13:19 Yana Miranda RN x2 [...] pattern. Review / Management Laboratory Results Plan [place] [employer]esthesi[employer]#(ASA ) physical status classification: Class III. Anesthetic Preoperative Plan Anesthesia: Monitored anesthesia care. Anesthetic plan, risks, benefits, and alternatives discussed with the patient and/or family. Patient verbalized understanding. [Electronically Signed on: 01/09/2022 15:07 EDT] Clint Bernal MD [Verified on: 01/09/2022 15:07 EDT] Clint Bernal MD [facility] Inpatient Patient Summaryon 01-09-2022 Inpatient Patient Summary [address] [address] Patient Discharge Instructions Name: MIRNA QUEZADA : 1950 Patient Address: [facility] [facility] [address] [facility] [id number] Primary Care Provider: Name: VILLA NICOLAS After you are discharged if you find you have any questions, please, call [phone] ext [phone] to speak to a nurse. Discharge Diagnosis: Left carpal tunnel syndrome Prescription Information: If you have been given a prescription for narcotics, seek immediate medical attention if you have any difficulty breathing or any sudden status changes such as confusion and sleepiness. If you or anyone you know is experiencing suicidal thoughts, mental health, alcohol and/or drug addiction problems; contact the [facility] 16/10 Crisis Hotline -Mdvk 4HPOK yx [phone]. If you received any narcotics, sedation, or [...] business decisions or sign any legal documents [facility] would like to thank you for allowing us to assist you with your healthcare needs. The following includes patient education materials and information regarding your injury/illness. MIRNA QUEZADA has been given the following list of follow-up instructions, prescriptions, and patient education materials: Follow-up Instructions With: Address: When: VAZQUEZ COATES [address] [place] [address], [address] [place] [address] Business (1) 01/18/2022 11:30 AM With: Address: When: VILLA NICOLAS [facility], [address] [place] [address] [address] [place], [place] [id number] Business (1) Medications During the course of [...] oral t (more content not included)... [facility] Postoperative Record [facility] Phase II Record Summary Primary Physician: Ambrose Rodriguez DO Finalized Date/Time: 01/09/22 18:22:17 Pt. Name: PILARMIRNA./Sex: 1950 FEMALE Med Rec #: [id number] Physician: Ambrose Rodriguez DO Financial #: [id number] Pt. Type: D Room/Bed: / Admit/Disch: 01/09/22 12:18:00 - Institution: Phase II Case Times [facility] Pre-Care Text: Patient is free from s/s [...] Signed By: Laura Lepe RN 01/09/22 18:22 [facility] Preoperative Record MAGR Pre-Op Record Summary Primary Physician: Ambrose Rodriguez DO Finalized Date/Time: 01/09/22 16:37:48 Pt. Name: MIRNA QUEZADA /Sex: 1950 FEMALE Med Rec #: [id number] Physician: Ambrose Rodriguez DO Financial #: [id number] Pt. Type: D Room/Bed: / Admit/Disch: 01/09/22 [...] consent correct. General Comments: [facility] PT denies cp, sob, cough or flu like symptoms. Pt denies pacemaker/defibillator or sleep apnea. Finalized By: Aurora Collazo RN Document Signatures Signed By: Aurora Collazo RN 01/09/22 16:37 [facility] POCT Glucose Levelon 022 Glucose [Mass/Vol] 118 mg/dL Normal 74-118 [facility] Comment on above: Performed By: #### 4 [id number] ####[facility] (DEFAULT)[address] [place] [address] Patient Handouton 01-09-[address] 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 [Electronically Signed on: 01/06/2022 12:05 EDT] Itzel Dubose RN [Verified on: 01/06/2022 12:05 EDT] Itzel Dubose RN [facility] 2019 Novel Coronavirus (CoVI D-19), INDIRA LCon 01-05-2022 SARS-CoV-2 (COVID-19) RNA INDIRA+probe Ql (Unsp spec) Not detected Invalid Interpretation Code Not Detected [facility] Comment on above: Order Comment: [id number] [facility]#[phone] Result Comment: This nucleic acid amplification test was developed and its performance characteristics determined by [employer]. Nucleic acid amplification tests include RT- PCR [...] detected) result in this assay. Performed At: [address] [id number] Birgit Andino PhD Ph:[phone] Performed By: #### 6 [id number] ####[facility] (DEFAULT)[address] [place] [address] Coding Summary 01-05-2022 Coding Summary HTMLBase 64 GaaupaaaTYs7tCg+PGhlYW Q+QU1XHIFjT89zvQHhyR8S C2dIJO0JGITTQMZSUF2YEH 9kvIN8WFqnZ2HmfpQk FqejkKHlOS80UQm8PAC0oP jgOHzllL2yqNRoP3p3RwUr GT50rA82ZHbhLFQoArH7Fj ZpbjsgbWFy H4otEhOdtOEqIny+PHRhYm xlIHdpZHRoPScxMDAlJyBz hMpmUA2mPp4oVSAhOKOoyH xhcHNlOiBj f3xwABZoUHjvHF8tuKxzT1 FyxFI0ULQsj9p9Zp45jPT+ VJKdLJI0cNfjEDbsg203Od Byy8diXOR0 nERfWStlPCO9R37ws1Y2SY KnHJMbLVT3kJU2jX1qzTzk knssL3DupBTvLjS8WOW9eJ LkaR4wdIib okplzX9bKgv+E12HZX0OAP RJGM0QXfc5P6PbBsyfeUE+ FB88BJLwUU00uILjxTCrf4 igwVk0NaEz EWTvFBR8eJheHOvem8AmIA HyT80azMZbx6P5VTGrxFgk xLHhOdRniEE8vB9uTLsdfd eqs4uxbxnd Xegfd0rplq75mW60U33hDG ryIYJiXBJ5HOTbTDMlgFjh sq7lfB1wYk8+IOncb2ter0 wslAj4MrEp WTGoapQvlDxoWRV2y6GsJt 20N1LzrMalh4WkXui2lg06 lMLqq1T0zOK7GFilEKCvsV 1vIKlaBsI6 HRHxTpEvdO36aWTxXNckWq 4gwVlblArpCJ6aEXQzxgzq EGZcoU1jWYRquLNbkBmjRD 4wNTBpbjtm i074MnDoLOJ7PUFhzKKnG7 PvcO2fHsVaWDRjFGLyB7Ri pWZdVRtlZ006RXjzWiN6KY KzuzIqE7Lg TRVxyXbqBgI8f0Z9Gv4Gu7 PnacztWYG4SLjgDSFiJzSe JqSsSlW8Q5NzJzu4OUIzfX zxMM8fN7Rf FLXufoagrdovaSQ3TWImOT TkcS55bGRaWXvzJc6nt1J1 g035LSUpSVLrgB85Ia5unO ogMTBwdCBU uW9xopuhl3qbodwqUwFzED CaZRd1LRt2CVUuuCvtWuAu GDL7CjD5RIL0dUAfgU4jmF mbvhwbxA2y Oyc+S22ikZ9bMWV7ELK9gz giGKDubjGcUF57YG38P2Xa PjwvdGFibGU+PGRpdiBzdH htWN4gDwJn i6ltn0JfBNqkL0XfBWYjPJ fzOuu6YQGkDRF1wMZ4yD8v KLQhKFvbz9H2gMX2N7Arrl Whaa6eo0xm JHBoIJohX29hxGTmu3N8LL OsgIE6VUUihUrfHiDvnE82 Oyc+AHSjhFcvk9CoIuxle2 djq7logGk4 LiJuKDTcreTnxQayPDN8u8 FvLx08E64rSBdcUSVsJLMf ZOHaECKbwEtkif3nfZ3vLa 8+PGNvbCB3 qXA6wF4bFCIhOeV8EXbpY2 73FzFqvVWhIeygj1uum5be jNs1QaPbNHTrcdQxsZcsFU G9g1JcAi18 M70pBYgpBXMoQTNgDGMkLP YdyVlkch0qwM6bBm8+PC9j k5gcor12jG32rUY+PHRkIH S7zHylDYhf SXYkhH6dHZoyXkH7JHCkTy RssD97oFJbLBdkKy8rpEve mFwuRV5hUCHltlcsp431Gv Ftl7yfBQPr iDTpGWfkKIN6V06dg3G1IY YtPFCzQRQ2uNL8kN1jsXea bjogbGVmdDsgdmVydGljYW buPXgnB848 IHRvcDsnPlBhdGllbnQgTm StVWo0H5UkUwc6MAKceYez CD2glAMlGUyfYq9mkBelbC qsWL2gDJCx dnipd444BxWja5slPERarC HqCZtkJWA4O10bk5S1NQFg SUTzMRW3aIC6xD7cnUfwwe ogbGVmdDsg qiZtkLinNEckYCotW289QW RvcDsnPkJpcnRoIERhdGU6 CD87PN37qHJes4R6wNJ9Z9 BhZGRpbmct qisjmJB3XIGpTTShsM59Jb 9ipQrtQc0zRQLaWHB8TEQn nIKdP7NrxW7kIwOmVSJwMW UhM0GqmOHv JJbaN274PAsyWyF3XZJkpj JrK6IeEKJwlPkxTqE3k5W9 Xk4VN1R4QX94BA02uZImd5 J9eAL6P7Hv ZREspgwdvemlzIC3LIDrNC OfsC68Rk7qtHdqWv4nNYGp YJN2INHbpPNbH2IqyE4dEb AjMDAwMDAw H8MliDNyEIrhZ003JRzjPo J2GMCwrqJsD1JoVAKosOfq DiX2b2C8Pe4SFGx3JA81AG 21gIPzd9B0 kMU8J1FfVHDdbpxpmswhuU C6NGSgCLWssA65Ih7gmZre Ug3wPANkGGQ6DYNfqUDrY8 YlvM3gBwUn MXJtTOKmS8YthAJqACawL7 92KBwzQhC2PDNzjwKhN5Zq VDXxzOapRwT4k5K1Ex5LMN HgKN11RSL4 cYL1EH49WX46I6TmHlzwyT FibGU+PHRhYmxlIHdpZHRo LYukOGUwYgKxaTywGA2hTh 9yZGVyLWNv eWxatUQvSxBrk2boWSRcKX fdPJ2ekCfcJ9JvrKI9DZCq a0y8Qb37B38yY1KdfOC+PG HszYI8sIT1 tS4pTsJlYsT1UJllA133Zg RcsYCcVcfca0cqd5ylqKu3 WoW4SFPrpqPyeMufMFW7g0 IgKc95Y14i IHdpZHRoPSIxNSUiIHZhbG djwj0zgD2zCw9+PGNvbCB3 xGR9vP3oYeAjKxS9DGktL2 49InRvcCIv Wwwlv0htd5hpxDh4NmYvVL BhxiXboDzaNOA6d3ZmIz80 Y3YtvCuwy5FqCvh6lx49xM Vtx5E6pBZ3 H6DrYXQrigwdhLCwdUhlAV 5xICWqkirmPYTcoD1sZFWf G8m4LpKvQdZ1HVxoC3Uvjc O6QHAjeMYq IGsvRQW0A97dp2I2FVGaGK QdDMD9aFH9dM1pfCnberpk bGVmdDsgdmVydGljYWwtYW tkS355HJNb kAdkVXAqlR8qYVUwrEOxjN iqBG4eXIAguangKoGIBLgQ LCBCUkVOREEgVzwvdGQ+PH PgWDQ1aBqc DUbnCACvrP6cUZSyM3g2Yk TcDtT4XYurX2ReDKHiknqa Pm22jW0uDhNpZaN3RUssO9 EbepV5THOh zCSkBJhhHCM0A47lm6Y2AP IiWUUkTFQ2cNB4bU9kqFby bjogbGVmdDsgdmVydGljYW txABdrJ329 MTOnsDmbZyF4SjW4GdH9WA H8M3NoQsw0KWQgcItkJL5p bEAgXAvjWh4xqRmkzLvjIM 4wNTBpbjtw IIDoeT4dSWFoaXOkuCxyOX 1pNNOpnddtl585KmQvRWJ1 OQLvdMWpZ6IuyN5zCoEpGW OwICDsZ0Zz nQYjROjkL393VSroTbI0NC LcsfYuF0NxHZOnsFlvMjM5 y1I2Gx42CNRIKNKgmefwkU Q+PHRkIHN0 pLpuHUwvJPCmxO8mKHYpY7 d8XyQcWpT2UAlaY8MbZVVg wjxqQj44sI2uPmGaFmS1WN fuB0CsdeV9 PXAflQVfEFqfLMX8T10vm1 U4POIeMWFuJJP1qAK2tP6g bGlnbjogbGVmdDsgdmVydG ljYWwtYWxp A420ONDkrFdmEtAANUGFCQ wvdGQ+FDOxXCR8nXcgJHkv ONWprC7tNVQaR7r8YiIqGg I9XYoiP6Co RPXqnqoeJy73gB4pUgHhVe X8IWaoM1PxbhD3YJWbfPNv FWjdAJZ4O10ja1O6WCTcBW RpPMG9nME1 rM8giBfabsidhPErhEexjd YtmIpaFBmgOWprR097HTCz bMnwQc7IFA72SV79Q8EsOt wvdGFibGU+ PHRhYmxlIHdpZHRoPScxMD FoSnFriUqnWW5jUe4pCRDa HKJqfMotxXWiTxIti1vrLI YyQDklGZ7a iDjyY5LjlVK1VENan8o4Fn 99V12wA3KaxXX+PGNvbCB3 wXG6xA6iPzPuAfX6ZOugS1 49InRvcCIv Ioowu1ffo0zkbWq3VwCoDE EjaqXyvEixJSX2i2BaBb83 V56vNKtzDKGwADPmMCPvZX ZpbZujvx7h aU1fCw6+PHZnxDF8pFN0iJ 7mClCjAuK2LBdrP810XzHg cCUpEzniC99vE6FnvPN+PH WgRms6KLXj nTkpBP5lfVPaHMxuNn6lQJ S3DcNtUwEtSPnkP4TuFXGa xdimlyzbrOB6HWPqKCItrO 92Fk5bhGtt Uy8dREBwUAM3FSWoiVZkI5 HqhS9vNnPbKHXxBYBdN1Mk vFYhHHaxW386RNihLjJ7QU AnepLmW5Mt ANVxxFoiHfU5d0P0Bk6KrA tziMAaMS4pMzJnEDc8X5Cz Xma9VTTbgRneXA7ruQOnHY arFe7xcLej hPsyAN8rZQBkodefm841Lv Mgk1ysUKFdrKArOEjsWYG6 L28gn7B3IGEaFTVnTYD5hS D2wH2ukWms bjogbGVmdDsgdmVydGljYW riHNqiP271UVYhfMqvPdBI Lgl1N2SwZqh9TIKidMxoRX 0ncGFkZGlu Ff2mcWiutHfjBM1rMPAmkl shl466YpWsr6xqQLXnlICp IRqyKVC8Y34sd3G1YRTwSJ AiTUJ0kSP6 tU3puJbiezmilDYyxNzqrx ZrbPvqNRrsHTodM970XYRb gTffUx2WRhg1K3ZkNuw9LM EueNpcNA2n oNFpAXonQn6daLjwyNawEN 5kEWLzaqsjf610YjWnm7na ASUjlYOgMBuySFS5B19qm2 V9RCRaZPPu NBC4vND9jS0faUtrgiyabA VmdDsgdmVydGljYWwtYWxp E213JUOtlRfrScPymZScHe wvdGQ+PC90 rr10G6DnQhowHhc6ISHiTR U1rYU8uQ8cWWRjFZnjf4K5 sQY2I4UrqtWawr2ee5mbIX ErUDreY25d bGF (more content not included)... [facility] Coding Summaryon 01-03-2022 Coding Summary HTMLBase 64 MvuhtgmaQRy3fBz+PGhlYW Q+QR9UPXTmB77lcWZriZ2G Y8tJMI2XNNNWPWLFQX5HPI 8rpAR0AHdkX4LcenLt HtcksWJiEP79TDi7LHZ9bU nlEVxvmI9bnDEvN9s1NjOk JF99cQ80JJcaTYPnPuM3Yn ZpbjsgbWFy N7afUtTzmGBrWxh+PHRhYm xlIHdpZHRoPScxMDAlJyBz hSthNW2yHz8lPVUwWNHykW xhcHNlOiBj x3nxXYUrFPquHY1huWegH1 BikRN5IRGtb0f6Ct55dDO+ JPAaYZS0hFfpTWbho227Pm Cud1otRUJ5 uUQvIUzqZGG2A88qo0M9IQ UhFLIsCVV6oWS4uT4beLhv rxmaI2WxbEWlCyD3YCK0rD YoaT9kiFtk nniqhB9kOfn+Y06WPO1MVS UBPN4TSrs6Q6JtIjdonQD+ HK86NXXsXM74fTQkxQOxj4 beiZq9VxTw GPFwCDI0iDrnAUxeo0WvWW HeY73kdABbl9B6RNHokGhr qDRuPlNxfOR2vU8uRRlpea smb2knciwl Qhiwr3qfci22gH04N58nWQ waWXTdMSP6TCOmOBOhoZoh qr6ppL3aGe1+NVdbt8aad8 jdtFh0GtRa BYFddfTdcKcxGBW9u1YoDk 26J4PgbUivh7QqPms2lp65 zHYeg8B3tXJ4KWnzYDUqqN 5vFOifNdL1 TMDbExWigC68pUOcDStgQy 2zpWvdcRdhAP3hGDFnmmdl WBJkgD1uYQSgiTOkdCbcVC 4wNTBpbjtm o935EmXeJZK8WDScfQBgU6 IpxS5dGzEhZLUeXXVaV8Nx bCRxASruC191GDjtIkL9DJ WbbjZiD8Bl ICOdxZqmSpL8u2W1Jx2Rp2 YzaakmEXG5UOebTNBaYoUd JcNhNuR1Q8KnKzg5PQZycP ixDF5jA9Dy DQMzlsdvpwqtbJF4QZIsKJ MtxU53wVFkRQoiCh6we8H8 y621QMHmKYScuT71Fn6bjO ogMTBwdCBU wW8wiszli7sjxyqvXnYeBO UtPIu1BAx5LYNcmXyiNaLf NWA3WkA3CVQ8zJBybJ2eiL myzhuvfQ5t Oyc+E46zcT2bZYX6FBF3je moBGRhkcZuHR29PV61S5Vl PjwvdGFibGU+PGRpdiBzdH fyYX7eHqZv h6fdz7VxBMwfH7NhAAZrTX uoYvm9ZMMkUKY5wTQ7xL6z BKBvUIdkx0Z9cXE4K2Nwft Zicg7jn3kf IKDsEKreB33znWOkl0B5QU DosGX8RSGkkFgkMyLvaL71 Oyc+DPTzlUfbw7NzBerpo3 kou0quyPm7 DiEkKCIzltPteDkeRDX9r5 KbMq70X75lYJupSYEpKUOj RWTsVUDgeZdecw7lqQ6wZq 8+PGNvbCB3 bHH4nU9hQXVyZqY7TAzbL2 42RzEhxTOlWiild1utp7ok vWb0VuQiIMQppeGqnLwxAN C5j2AtXl87 T72oXQvqXEPfOBNeIFMdCQ RdiHlpgu3wxB0aLl6+PC9j w8svul47uM01sUR+PHRkIH P0qNchZNto ANLjuN0gWXlbRlP8LCQtJl TllG57gOHtCQpcZw7ihHld kLtpCD4pXFZumzwbe093Qg Mgn6ocDYCn cLAjXTztJIU5G79yd4D1OM ByBHGqWML1vPN5iC5rtMkp bjogbGVmdDsgdmVydGljYW smBIjnV535 IHRvcDsnPlBhdGllbnQgTm TyBHw8F2OlKau6JOSbbXoz VN9rtVBhLRylIo3qfNcjjO pcTF8fISWt qxxha179FyDwc9aaBJJqnX MhEEjhWDO9K34vy1A9LUEx MNBeIVD4zJB9dV1ioYnqyg ogbGVmdDsg uxEahTqaGOdyMUzuQ337FX RvcDsnPkJpcnRoIERhdGU6 CB88PY79nFVgw2Y7dZM6F8 BhZGRpbmct qjuquUK3CLXxNIKfeL18Md 4foXouVh2vJXOaUGK5OCDr gVEdE1KpqR5oBlNzTVYbZQ EbV5EnaAAa AJsfB956NQptAwI1ZYXuee IcF1KzRKIlbNdlErF3l8R6 Jk3TO9P8FT85ON91xZEal3 V3vCM9Y2Ie RIVchdvrowwgsMD7WRTvBN BtxV74Vi5hgDypDw7cWAVp NMD2SFXqeVRoQ2ZqnE3rDd AjMDAwMDAw K8ZqdGAvGExfJ161QRkbSi Z5HUAzbwAtI3SwZRYpiJni ChV4n6Q9Yv2QVAl4LM84NO 46bDHnf5R1 sNI5G1DjOFSxgrhzdnctyZ D5KIEtCQUjkN93Zy4mbNtk Ho1pFKYcOVX5WQZpeNIzL8 UfyH0eIxAk OGNyULItJ6ZrwMMtXFxmW2 51YAleWqQ9MCSotcXlR9Yc PYPhjNovRhS6t9D0Ss2ZEQ WyWC38AUX4 xRW2LQ99UE64S6AxVbfudJ FibGU+PHRhYmxlIHdpZHRo VGnxGJPmZqKmfAcqUD2iKk 9yZGVyLWNv pZsvdCQmMnNwr4nfCHOjJX vsXW6ewCafP0QvoIX3IICr z1n9He39A63vM4BhtZN+PG UadPL5lRX5 aU3lGlWdWjL8LDpeL455Hd ByjCXyBwany7rjb8cpaQb0 KyE2TEBngmLylTziYNR0a4 QvYd37G57x IHdpZHRoPSIxNSUiIHZhbG xnqn2tbJ9aOc0+PGNvbCB3 qVK3dG9xAnDdEzS3RFkbT7 49InRvcCIv Ifzsh9gqx5rocSl4ZoUdSN SojlFnoBajHTA8q3PuOk21 Q9MiuYtsz1XeQch5sr85rG Ujo9D2dFB7 F5EeTXCacydreOHypJsgSL 9nAODofhchFVHncG7bRYIz Y1e3RwHfZwH9THzbL2Dwpb C9QAUwtRXu JKwoVTC1C40hx1L5OHLpOI MdPKQ4jCX1lM8cjZrcifin bGVmdDsgdmVydGljYWwtYW aqG232EGLw tShvKNHtnP6jHICwuFItmB loKF7tWEQlwkymAcBQNLbG LCBCUkVOREEgVzwvdGQ+PH RcCAI5rHye BQakPPDlqK3bLEAyM2m0Jr DnExM0OIylN7OeVEZdkzrb Om21hL1oKtQsFjH1AKtgZ3 JajwH9FJGa vAJuREwmNWN0G74yn6K8JN MgVXIsVAI6kBG6yC5nxHzx bjogbGVmdDsgdmVydGljYW bmETttJ904 WGZlqExeZwR0DeO6MvY4WG T8K0NsCdn7IYHlkEpfLG2e sMHtIOzhUv0mySygyZdhDO 4wNTBpbjtw HKLscE7eOOJynYAhhVzrRW 1vOWEsghwog075BqIlVBR5 LMAqpOWcC3QjlH2eKmOpVH YsZYHqS3Ap uTVsAWdiU727NSbuVcS5OP RzfpDjY4UtMPHhqMurRrS3 t1D8Kr55VPZTUEWrapxvyJ Q+PHRkIHN0 nJdrZNawLXSztL7cSNQpR6 q5YpFlZiY8FCwbV8RkDUQn tzkrIb18sM8xFxAwWgE1VT htD9JjvhI8 ZQWycTJaSKtcDDE6Q99zu9 O6DRFvWRSiGAF6fLU6iE1w bGlnbjogbGVmdDsgdmVydG ljYWwtYWxp E837YHVljUvsXcOQZGLEXV wvdGQ+HKXpXQD4kZyxSCnf UQDweU5kYWLlH9g0BiJpGg X2NSajI9Zl VXZdzejoZd36nR9uAaZmYa E8PAajK6TkxiO6UFJetOMv PYxhUMC0S02sg8Z0VPFbXY CeXDX3rNJ8 hL6qbVbaevoldYGxsRkkfb IwsQxbYSfcRYcuO676KOLd cSksIk4WFM79GY00W8RrNh wvdGFibGU+ PHRhYmxlIHdpZHRoPScxMD YxKoHajQixJG0zQx5aALVq XACahZsjaIJbHnCyf5gmCM LfXPcyTR7y qNznQ5YlvXY6COLgc6k1Mb 02F35mK1DcnRZ+PGNvbCB3 pLV3wM3iRdLcNjR7MWztK2 49InRvcCIv Oumvn1xca8pwiVa5CrNmDW AtreVrjQgbPNK4m7OiCw86 X47oHFwxMHXtUAJxQIUhAZ EbgDiciy2l mR8bOp9+REUaoPU8fOH0dW 9fLjHcUfN5JIiyZ796SdMg qXAbFaksQ60lR5CkiHK+PH IbFyh1CSNu eDcdCE4jnZZmKWwuTn0xRZ L1BcJqLsSrQZarX0EyHBXg jpmxpeatpXW9RXWkAPUtwW 60Gj6qtVcj Wj7vRINbKNB5RWKedZZfB5 VjrJ0yAfTdOXQzWGUrZ8Sk yETcETmyC069GBdfVfI0GN VzbhBcH5Ku KIBotNkrGuX6t8G6Nl7JuY ietJCaXG5fYdOyYQr5V5Hs Lxx9UAXcpSnaEQ0haDQmJD orZj5cmCxs iPhqRC6jRQItwfnyf326Oi Wvj5woOWCxaWNfRKzgMQD8 V94dv2H8XLWiDMZlFRH6dC H8oN9hiMvs bjogbGVmdDsgdmVydGljYW mtMQvyY113RDBgtVdyFwBH Syz1J3PyUar7PIChyNeeFX 0ncGFkZGlu Fd6alQbisSruSQ8jEGSdkp zdr253QtOcw0woJLBmeRFq ALldXKH1G16yw4O7IBRzAP CqGJH7jKO4 fP3miUdcingtyFMbdNjjil LguLxnAAjsLKjlJ661HLKe zMatPz5NNnq2F3PvMrw7FI SjhPijJG1o iZQqOOyuVz8ffXiotWfbND 3mSRAkfafyz521FoBpk0yo LRTfzEOyGGipVSZ1B39bu5 B1BXAgLPIm MIF5fWC9oN8pjFghtsvodY VmdDsgdmVydGljYWwtYWxp P709EOAszQmkLqNypFOwHp wvdGQ+PC90 jw95E9CvTkzsDri7JVEsPI Z6fTB8oQ9mDPTeIEomm5X8 wRW0K7BqkrKgkr4mo2jgTK ZqRLepZ03k bGF (more content not included)... [facility] Progress Note - Nurseon 12-24 Progress Note - Nurse PAT review done per Dr. Odonnell, no orders received. [Electronically Signed on: 01/02/2022 15:09 EDT] Yana Samson RN [Verified on: 01/02/2022 15:09 EDT] Yana Samson RN Normal [facility] .Auto Diff 1on 12-30-2021 Auto Hart % 7 % Normal 1-12 [facility] Comment on above: Performed By: #### 1 [id number], [id number], [id number] ####[facility] (DEFAULT)[address] [place] [address] Baso Abs# 0.0 x10 Normal 0.0-0.2 [facility] Comment on above: Performed By: #### 1 [id number], [id number], [id number] ####[facility] (DEFAULT)[address] [place] [address] Basophils/100 WBC (Bld) 0.3 % Normal 0.2-2.0 [facility] Comment on above: Performed By: #### 1 [id number], [id number], [id number] ####[facility] (DEFAULT)[address] [place] [address] Eos Abs# 0.1 x10 Normal 0.0-0.4 [facility] Comment on above: Performed By: #### 1 [id number], [id number], [id number] ####[facility] (DEFAULT)[address] [place] [address] Eosinophils/100 WBC (Bld) 0.6 % Low 0.9-4.0 [facility] Comment on above: Performed By: #### 1 [id number], [id number], [id number] ####[facility] (DEFAULT)[address] [place] [address] Lymph Abs# 3.5 x10 High 1.3-2.9 [facility] Comment on above: Performed By: #### 1 [id number], [id number], [id number] ####[facility] (DEFAULT)[address] [place] [address] Lymphocytes/100 WBC (Bld) 36 % Normal 14-48 [facility] Comment on above: Performed By: #### 1 [id number], [id number], [id number] ####[facility] (DEFAULT)[address] [place] [address] Hart Abs# 0.7 x10 Normal 0.0-0.8 [facility] Comment on above: Performed By: #### 1 [id number], [id number], [id number] ####[facility] (DEFAULT)[address] [place] [address] Neut Abs# 5.6 x10 Normal 1.5-9.2 [facility] Comment on above: Performed By: #### 1 [id number], [id number], [id number] ####[facility] (DEFAULT)[address] [place] [address] Neutrophils/100 WBC (Bld) 56 % Normal 44-88 [facility] Comment on above: Performed By: #### 1 [id number], [id number], [id number] ####[facility] (DEFAULT)[address] [place] [address] Standardon 12-30-2021 eGFR Non AA >60 Invalid Interpretation Code [facility] Comment on above: Performed By: #### 1 [id number], [id number], [id number] ####[facility] (DEFAULT)[address] [place] [address] eGFR AA >60 Invalid Interpretation Code [facility] Comment on above: Result Comment: It Admin abigail Kidney disease could be indicated at eGFRs of less than 60 ml/min/1.73m2. Kidney Failure is indicated at less than 15 ml/min/1.73m2 Performed By: #### 1 [id number], [id number], [id number] ####[facility] (DEFAULT)[address] [place] [address] Anion gap [Moles/Vol] 15.0 mmol/L Normal 5.0-19.0 [facility] Comment on above: Performed By: #### 1 [id number], [id number], [id number] ####[facility] (DEFAULT)[address] [place] [address] Calcium [Mass/Vol] 9.2 mg/dL Normal 8.9-10.3 [facility] Comment on above: Performed By: #### 1 [id number], [id number], [id number] ####[facility] (DEFAULT)[address] [place] [address]9980 Chloride [Moles/Vol] 104 mmol/L Normal 101-111 [facility] Comment on above: Performed By: #### 1 [id number], [id number], [id number] ####[facility] (DEFAULT)[address] [place] [address]6054 CO2 [Moles/Vol] 23 mmol/L Normal 21-32 [facility] Comment on above: Performed By: #### 1 [id number], [id number], [id number] ####[facility] (DEFAULT)[address] [place] [address] 29566 Creatinine [Mass/Vol] 0.51 mg/dL Low 0.60-1.30 [facility] Comment on above: Performed By: #### 1 [id number], [id number], [id number] ####[facility] (DEFAULT)[address] [place] [address] 12029 Glucose [Mass/Vol] 103.0 mg/dL Normal 74.0-118.0 [facility] Comment on above: Performed By: #### 1 [id number], [id number], [id number] ####[facility] (DEFAULT)[address] [place] [address] 55974 Osmolality 273 mOsm/L Invalid Interpretation Code [facility] Comment on above: Performed By: #### 1 [id number], [id number], [id number] ####[facility] (DEFAULT)[address] [place] [address]6772 Potassium [Moles/Vol] 4.6 mmol/L Normal 3.6-5.1 [facility] Comment on above: Performed By: #### 1 [id number], [id number], [id number] ####[facility] (DEFAULT)[address] [place] [address] 97494 Sodium [Moles/Vol] 137.0 mmol/L Normal 136.0-144.0 [facility] Comment on above: Performed By: #### 1 [id number], [id number], [id number] ####[facility] (DEFAULT)[address] [place] [address] 03724 Urea nitrogen [Mass/Vol] 10 mg/dL Normal 8-26 [facility] Comment on above: Performed By: #### 1 [id number], [id number], 07361115 ####[facility] (DEFAULT)[address] [place] [address] Urea nitrogen/Creatinine [Mass ratio] 20.0 mg/mg High 4.6-16.2 [facility] Comment on above: Performed By: #### 1 [id number], [id number], [id number] ####[facility] (DEFAULT)[address] [place] [address] CBC w/ Auto Diffon 2 Erythrocyte distribution width (RBC) [Ratio] 14.6 % Normal 11.5-15.0 [facility] Comment on above: Performed By: #### 1 [id number], [id number], [id number] ####[facility] (DEFAULT)[address] [place] [address] Hematocrit (Bld) [Volume fraction] 49.5 % High 33.7-40.4 [facility] Comment on above: Performed By: #### 1 [id number], 1708413, 85943892 ####[facility] (DEFAULT)[address] [place] [address] 17458 Hemoglobin (Bld) [Mass/Vol] 16.8 g/dL High 11.3-15.9 [facility] Comment on above: Performed By: #### 1 [id number], [id number], [id number] ####[facility] (DEFAULT)[address] [place] [address] 56381 Instr WBC 9.9 x10 Invalid Interpretation Code [facility] Comment on above: Performed By: #### 1 [id number], [id number], [id number] ####[facility] (DEFAULT)[address] [place] [address] 23362 Man Diff? Auto Normal [facility] Comment on above: Performed By: #### 1 [id number], [id number], [id number] ####[facility] (DEFAULT)[address] [place] [address] 88766 MCH (RBC) [Entitic mass] 32 pg Normal 24-34 [facility] Comment on above: Performed By: #### 1 [id number], 5583322, [id number] ####[facility] (DEFAULT)[address] [place] [address] 07238 MCHC (RBC) [Mass/Vol] 34 g/dL Normal 26-37 [facility] Comment on above: Performed By: #### 1 [id number], 4641869, 14845674 ####[facility] (DEFAULT)[address] [place] [address] 62923 MCV (RBC) [Entitic vol] 95 fL Normal 81-100 [facility] Comment on above: Performed By: #### 1 [id number], [id number], [id number] ####[facility] (DEFAULT)[address] [place] [address] 65559 Platelet 138 x10 Normal 138-427 [facility] Comment on above: Performed By: #### 1 [id number], [id number], [id number] ####[facility] (DEFAULT)[address] [place] [address] 09273 Platelet mean volume (Bld) [Entitic vol] 11.5 fL High 6.3-10.2 [facility] Comment on above: Performed By: #### 1 [id number], [id number], [id number] ####[facility] (DEFAULT)[address] [place] [address] 71106 RBC 5.20 x10 Normal 3.70-5.30 [facility] Comment on above: Performed By: #### 1 [id number], 7421543, [id number] ####[facility] (DEFAULT)[address] [place] [address] 12283 WBC 9.9 x10 Normal 3.5-10.5 [facility] Comment on above: Performed By: #### 1 [id number], 5223096, [id number] ####[facility] ([facility])[address] [place] [address] US ARTERY LEG BILon 11-26-19 US ARTERY LEG PAZ EXAMINATION: US MARIAELENA RY LEG PAZ HISTORY: Pain at rest [...] by: CHARY AWAD Date: 2021-11-25 17:16 Normal [facility] Complete Blood Count with Au to Diffon 07-14-2021 Basophils (Bld) [#/Vol] 0.05 10*3/uL Normal 0.00-0.20 [facility] Comment on above: Performed By: #### F E Prof, TSH, CBCAD, FERR #### [facility] [address] [place], [place] [id number] Basophils/100 WBC (Bld) 0.6 % Normal [facility] Comment on above: Performed By: #### F E Prof, TSH, CBCAD, FERR #### [facility] [address] [place], [place] [id number] Eosinophils (Bld) [#/Vol] 0.04 10*3/uL Normal 0.02-0.50 [facility] Comment on above: Performed By: #### F E Prof, TSH, CBCAD, FERR #### [facility] [address] [place], [place] [id number] Eosinophils/100 WBC (Bld) 0.5 % Normal [facility] Comment on above: Performed By: #### F E Prof, TSH, CBCAD, FERR #### [facility] [address] [place], [place] [id number] Erythrocyte distribution width (RBC) [Ratio] 14.4 % Normal 11.0-15.0 [facility] Comment on above: Performed By: #### F E Prof, TSH, CBCAD, FERR #### [facility] [address] [place], [place] [id number] Hematocrit (Bld) [Volume fraction] 49.0 % High 35.0-47.0 [facility] Comment on above: Performed By: #### F E Prof, TSH, CBCAD, FERR #### [facility] [address] [place], [place] [id number] Hemoglobin (Bld) [Mass/Vol] 16.8 g/dL High 11.6-15.5 [facility] Comment on above: Performed By: #### F E Prof, TSH, CBCAD, FERR #### [facility] [address] [place], [place] [id number] Lymphocytes (Bld) [#/Vol] 2.9 10*3/uL Normal 0.9-3.9 [facility] Comment on above: Performed By: #### F E Prof, TSH, CBCAD, FERR #### [facility] [address] [place], [place] [id number] Lymphocytes/100 WBC (Bld) 35.7 % Normal [facility] Comment on above: Performed By: #### F E Prof, TSH, CBCAD, FERR #### [facility] [address] [place], [place] [id number] MCH (RBC) [Entitic mass] 32.2 pg Normal 27.0-33.0 [facility] Comment on above: Performed By: #### F E Prof, TSH, CBCAD, FERR #### [facility] [address] [place], [place] [id number] MCHC (RBC) [Mass/Vol] 34.3 g/dL Normal 32.0-36.0 [facility] Comment on above: Performed By: #### F E Prof, TSH, CBCAD, FERR #### [facility] [address] [place], [place] [id number] MCV (RBC) [Entitic vol] 94 fL Normal 80-100 [facility] Comment on above: Performed By: #### F E Prof, TSH, CBCAD, FERR #### [facility] [address] [place], [place] [id number] Monocytes (Bld) [#/Vol] 0.5 10*3/uL Normal 0.2-0.9 [facility] Comment on above: Performed By: #### F E Prof, TSH, CBCAD, FERR #### [facility] [address] [place], [place] [id number] Monocytes/100 WBC (Bld) 5.9 % Normal [facility] Comment on above: Performed By: #### F E Prof, TSH, CBCAD, FERR #### [facility] [address] [place], [place] [id number] Neutrophils (Bld) [#/Vol] 4.6 10*3/uL Normal 1.5-7.8 [facility] Comment on above: Performed By: #### F E Prof, TSH, CBCAD, FERR #### [facility] [address] [place], [place] [id number] Neutrophils/100 WBC (Bld) 56.8 % Normal [facility] Comment on above: Performed By: #### F E Prof, TSH, CBCAD, FERR #### [facility] [address] [place], [place] [id number] Platelet mean volume (Bld) [Entitic vol] 12.10 fL Normal 7.50-12.50 [facility] Comment on above: Performed By: #### F E Prof, TSH, CBCAD, FERR #### [facility] [address] [place], [place] [id number] Platelets (Bld) [#/Vol] 166 10*3/uL Normal 140-400 [facility] Comment on above: Performed By: #### F E Prof, TSH, CBCAD, FERR #### [facility] [address] [place], [place] [id number] RBC (Bld) [#/Vol] 5.22 10*6/uL High 3.90-5.20 [facility] Comment on above: Performed By: #### F E Prof, TSH, CBCAD, FERR #### [facility] [address] [place], [place] [id number] RDW-SD 49.0 fL Normal 37.0-50.0 [facility] Comment on above: Performed By: #### F E Prof, TSH, CBCAD, FERR #### [facility] [address] [place], [place] [id number] WBC (Bld) [#/Vol] 8.1 10*3/uL Normal 3.8-11.0 [facility] Comment on above: Performed By: #### F E Prof, TSH, CBCAD, FERR #### [facility] [address] [place], [place] [id number] Ferritinon 07-14-2021 FERR 36.8 ng/mL Normal 15.0-150.[address] [facility] Comment on above: Performed By: #### F E Prof, TSH, CBCAD, FERR #### [facility] [address] [place], [place] [id number] Iron Profileon 07-14-2021 %FESAT 21 % Normal 11-[address] [facility] Comment on above: Performed By: #### F E Prof, TSH, CBCAD, FERR #### [facility] [address] [place], [place] [id number] FE 67 ug/dL Normal 40-[address] [facility] Comment on above: Result Comment: Refe rence range change 02/09/2017. Prior reference range F 37-145 ug/dL, M 59-158 ug/dL. Performed By: #### F E Prof, TSH, CBCAD, FERR #### [facility] [address] [place], [place] [id number] TIBC 316 ug/dL Normal 250-[address] [facility] Comment on above: Performed By: #### F E Prof, TSH, CBCAD, FERR #### [facility] [address] [place], [place] [id number] UIBC 249 ug/dL Normal 112-347 [facility] Comment on above: Performed By: #### F E Prof, TSH, CBCAD, FERR #### [facility] [address] [place], [place] [id number] TSHon 07-14-2021 TSH 1.430 uIU/mL Normal 0.400-4.500 [facility] Comment on above: Performed By: #### F E Prof, TSH, CBCAD, FERR #### [facility] [address] [place], [place] [id number] Vitamin B12on 07-14-2021 Cobalamin (Vitamin B12) [Mass/Vol] 216 pg/mL Normal 211-946 [facility] Comment on above: Performed By: #### B 12 #### [facility] [address] [place], [place] [id number] Comprehensive Metabolic Pane gaurav 02-28-2021 Albumin [Mass/Vol] 4.4 g/dL Normal 3.6-5.1 [facility] Comment on above: Performed By: #### L IPD, CMP #### [facility] [address] [place], [place] [id number] Albumin/Globulin [Mass ratio] 1.7 {ratio} Normal 1.0-2.5 [facility] Comment on above: Performed By: #### L IPD, CMP #### [facility] [address] [place], [place] [id number] ALP [Catalytic activity/Vol] 159 U/L High 35-119 [facility] Comment on above: Performed By: #### L IPD, CMP #### [facility] [address] [place], [place] [id number] ALT [Catalytic activity/Vol] 6 U/L Normal 6-33 [facility] Comment on above: Result Comment: 02/23 Female reference range changed. Performed By: #### L IPD, CMP #### [facility] [address] [place], [place] [id number] Anion gap [Moles/Vol] 19 mmol/L Normal 12-20 [facility] Comment on above: Result Comment: Effe ctive 03/31/2019 reference range changed. Performed By: #### L IPD, CMP #### [facility] [address] [place], [place] [id number] AST [Catalytic activity/Vol] 13 U/L Normal 9-34 [facility] Comment on above: Performed By: #### L IPD, CMP #### [facility] [address] [place], [place] [id number] BUN/CREA 21 Ratio Normal 6-22 [facility] Comment on above: Performed By: #### L IPD, CMP #### [facility] [address] [place], [place] [id number] Calcium [Mass/Vol] 9.7 mg/dL Normal 8.6-10.2 [facility] Comment on above: Performed By: #### L IPD, CMP #### [facility] [address] [place], [place] [id number] Chloride [Moles/Vol] 103 mmol/L Normal 98-107 [facility] Comment on above: Performed By: #### L IPD, CMP #### [facility] [address] [facility] [place] [id number] CO2 [Moles/Vol] 22 mmol/L Normal 20-31 [facility] Comment on above: Performed By: #### L IPD, CMP #### [facility] [address] [facility] [place] [id number] Creatinine [Mass/Vol] 0.6 mg/dL Normal 0.6-1.4 [facility] Comment on above: Performed By: #### L IPD, CMP #### [facility] [address] [place], [place] [id number] eGFRAA 113 mL/min/1.73m2 Normal >60 [facility] Comment on above: Performed By: #### L IPD, CMP #### [facility] [address] [place], [place] [id number] eGFRNAA 93 mL/min/1.73m2 Normal >60 [facility] Comment on above: Performed By: #### L IPD, CMP #### [facility] [address] [place], [place] [id number] Globulin (S) [Mass/Vol] 2.6 g/dL Normal 1.9-3.7 [facility] Comment on above: Performed By: #### L IPD, CMP #### [facility] [address] [place], [place] [id number] Glucose [Mass/Vol] 102 mg/dL High 65-99 [facility] Comment on above: Result Comment: For FASTING Glucose --- ADA reference ranges: Normal 65-99 mg/dl Prediabetes 100-125 Diabetes >/= 126 Performed By: #### L IPD, CMP #### [facility] [address] [place], [place] [id number] Potassium [Moles/Vol] 4.2 mmol/L Normal 3.5-5.5 [facility] Comment on above: Performed By: #### L IPD, CMP #### [facility] [address] [place], [place] [id number] Protein [Mass/Vol] 7.0 g/dL Normal 6.1-8.1 [facility] Comment on above: Performed By: #### L IPD, CMP #### [facility] [address] [place], [place] [id number] Sodium [Moles/Vol] 140 mmol/L Normal 135-146 [facility] Comment on above: Performed By: #### L IPD, CMP #### [facility] [address] [place], [place] [id number] TBIL <0.3 Normal [facility] Specialist Comment on above: Performed By: #### L IPD, CMP #### [facility] [address] [place], [place] [id number] Urea nitrogen [Mass/Vol] 13 mg/dL Normal 7-25 [facility] Specialist Comment on above: Performed By: #### L IPD, CMP #### [facility] [address] [place], [place] [id number] Lipid Panelon 02-28-2021 Cholesterol [Mass/Vol] 166 mg/dL Normal 125-200 [facility] Specialist Comment on above: Result Comment: Low risk < 200mg/dL Borderline risk 201-239 mg/dl High risk > or equal to 240 Performed By: #### L IPD, CMP #### [facility] [address] [place], [place] [id number] Cholesterol in HDL [Mass/Vol] 54 mg/dL Normal >40 [facility] Comment on above: Result Comment: High Cardiovascular Risk HDL <40 mg/dL Low Cardiovascular Risk HDL > or equal to 60 mg/dl Performed By: #### L IPD, CMP #### [facility] [address] [place], [place] [id number] Cholesterol in LDL [Mass/Vol] 87 mg/dL Normal [facility] Comment on above: Result Comment: LDL ATP III CLASSIFICATION LDL less than 100 mg/dl Optimal LDL 100-129 mg/dl Near or above optimal LDL 130-159 Borderline high LDL 160-189 High LDL greater than 189 mg/dl Very High Performed By: #### L IPD, CMP #### [facility] [address] [place], [place] [id number] Cholesterol in VLDL [Mass/Vol] 25 mg/dL Normal [facility] Comment on above: Performed By: #### L IPD, CMP #### [facility] [address] [place], [place] [id number] Cholesterol.total/C holesterol in HDL [Mass ratio] 3 {ratio} Normal [facility] Comment on above: Performed By: #### L IPD, CMP #### [facility] [address] [place], [place] [id number] Triglyceride [Mass/Vol] 126 mg/dL Normal 30-150 [facility] Comment on above: Result Comment: TRIG ATPIII CLASSIFICATIONS TRIG less than 150 mg/dl Normal TRIG 150-199 mg/dl Borderline High TRIG 200-500 mg/dl High TRIG greather than 500 mg/dl Very High Performed By: #### L IPD, CMP #### [facility] [address] [place], [place] [id number] Vital Signs Date Time Vital Sign Value Performing Clinician Facility 07-21-2023 11:34-0400 Body temperature 99 [degF] Christian Webster MD Work Phone: [facility] 07-21-2023 11:34-0400 Diastolic blood pressure 56 mm[Hg] Christian Webster MD Work Phone: [facility] 07-21-2023 11:34-0400 Heart rate 68 /min Christian Webster MD Work Phone: [facility] 07-21-2023 11:34-0400 Respiratory rate 16 /min Christian Webster MD Work Phone: [facility] 07-21-2023 11:34-0400 SaO2% (BldA) [Mass fraction] 95 % Christian Webster MD Work Phone: [facility] 07-21-2023 11:34-0400 Systolic blood pressure 115 mm[Hg] Christian Webster MD Work Phone: [facility] 07-20-2023 09:39-0400 Body height 160 cm Christian Webster MD Work Phone: [facility] 07-20-2023 09:39-0400 Body mass index (BMI) [Ratio] 22.72 kg/m2 Christian Webster MD Work Phone: [facility] 07-20-2023 09:39-0400 Body weight 58.15 kg Christian Webster MD Work Phone: [facility] 07-16-2023 11:22-0400 Body height 160.02 cm II Villa Nicolas Work Phone: [facility] 07-16-2023 11:22-0400 Body mass index (BMI) [Ratio] 22.4 kg/m2 II Villa Nicolas Work Phone: [facility] 07-16-2023 11:22-0400 Body temperature 96.7 [degF] II Villa Nicolas Work Phone: [facility] 07-16-2023 11:22-0400 Body weight 57.6 kg II Villa Nicolas Work Phone: [facility] 07-16-2023 11:22-0400 Diastolic blood pressure 50 mm[Hg] II Villa Nicolas Work Phone: [facility] 07-16-2023 11:22-0400 Heart rate 63 /min II Villa Nicolas Work Phone: [facility] 07-16-2023 11:22-0400 SaO2% (BldA) [Mass fraction] 97 % II Villa Nicolas Work Phone: [facility] 07-16-2023 11:22-0400 Systolic blood pressure 92 mm[Hg] II Villa Nicolas Work Phone: [facility] 06-25-2023 10:52-0400 Body height 160.02 cm [facility] 06-25-2023 10:52-0400 Body mass index (BMI) [Ratio] 26 kg/m2 [facility] 06-25-2023 10:52-0400 Body temperature 96.6 [degF] [facility] 06-25-2023 10:52-0400 Body weight 66.67 kg [facility] 06-25-2023 10:52-0400 Diastolic blood pressure 60 mm[Hg] [facility] 06-25-2023 10:52-0400 Heart rate 67 /min [facility] 06-25-2023 10:52-0400 SaO2% (BldA) [Mass fraction] 93 % [facility] 06-25-2023 10:52-0400 Systolic blood pressure 128 mm[Hg] [facility] 05-24-2023 13:10-0500 Body height 160 cm Sta 2 [facility] [employer] 05-24-2023 13:10-0500 Body mass index (BMI) [Ratio] 22.71 kg/m2 Sta 2 [facility] [employer] 05-24-2023 13:10-0500 Body temperature 97.81 [degF] Sta 2 [facility] [employer] 05-24-2023 13:10-0500 Body weight 58.15 kg Sta 2 BON [employer] 05-24-2023 13:10-0500 Diastolic blood pressure 43 mm[Hg] Sta 2 BON [employer] 05-24-2023 13:10-0500 Heart rate 80 /min Sta 2 [employer] 05-24-2023 13:10-0500 Respiratory rate 16 /min Sta 2 [facility] [employer] 05-24-2023 13:10-0500 SaO2% (BldA) [Mass fraction] 93 % Sta 2 [employer] 05-24-2023 13:10-0500 Systolic blood pressure 98 mm[Hg] Sta 2 [employer] Encounters Encounter Date Encounter Type Care Provider Facility Start: 07-20-2023 End: 07-21-2023 [facility] Start: 07-20-2023 End: 07-21-2023 Subsequent hospital visit by physician Christian Webster MD Work Phone: [facility] Start: 07-18-2023 End: 07-18-2023 ambulatory CRYSTAL DUNLAP Not Available Start: 07-16-2023 End: 07-16-2023 ambulatory II Villa Nicolas Work Phone: [facility] Work Phone: Start: 07-16-2023 End: 07-16-2023 Patient encounter procedure II Villa Nicolas Work Phone: [facility] Vascular Surgery Work Phone: Start: 07-06-2023 End: 07-06-2023 ambulatory Aorn Rain Facility:[facility] Start: 07-06-2023 End: 07-06-2023 ambulatory II Villa Nicolas Work Phone: [facility] Work Phone: Start: 07-06-2023 End: 07-06-2023 Patient encounter procedure II Villa Nicolas Work Phone: [facility] [place] Work Phone: Start: 06-27-2023 End: 06-27-2023 ambulatory TIKA ARGUELLES Not Available Start: 06-25-2023 End: 06-25-2023 ambulatory [facility] Work Phone: Start: 06-25-2023 End: 06-25-2023 Patient encounter procedure [facility] Vascular Surgery Work Phone: Start: 06-06-2023 End: 06-06-2023 ambulatory TIKA ARGUELLES Not Available Start: 05-30-2023 End: 05-30-2023 ambulatory ZOË BAUMAN Not Available Start: 05-25-2023 End: 05-25-2023 ambulatory DIONE CUEVAS [facility] Start: 05-24-2023 End: 05-29-2023 ambulatory CHRISTIAN WEBSTER [facility] Start: 05-24-2023 End: 05-28-2023 Subsequent hospital visit by physician Sta Pat Rm 2 [facility] PRE-ADMIT TESTING Start: 05-07-2023 [facility] Comment on above: Intervertebral disc disorder of lumbar region with myelopathy Start: 04-23-2023 End: 04-23-2023 ambulatory VILLA NICOLAS Not Available Start: 04-23-2023 Patient encounter status Kae alfaro DANDRE [facility] Start: 04-19-2023 End: 04-19-[facility] Start: 04-05-2023 End: 04-05-2023 Subsequent hospital visit by physician Sta Pat Rm 1 [facility] PRE-ADMIT TESTING Comment on above: Canceled (Case cance lled) Start: 04-04-2023 Evaluation and manag ement of inpatient AB [facility] Start: 04-04-2023 Evaluation and manag ement of inpatient SELENE [facility] Start: 04-03-2023 End: 04-05-2023 Evaluation and management of inpatient ALE [facility] Start: 03-27-2023 End: 03-27-2023 Subsequent hospital visit by physician Sta Pat Rm 2 [facility] PRE-ADMIT TESTING Comment on above: Canceled (Patient) Start: 03-15-2023 End: 03-15-2023 ambulatory VILLA NICOLAS Not Available Start: 02-02-2023 End: 02-07-2023 ambulatory CHRISTIAN WEBSTER [facility] Start: 10-31-2022 End: 10-31-2022 ambulatory [facility] Start: 10-31-2022 End: 10-31-2022 Encounter for preprocedural cardiovascular examination [facility] Start: 10-26-2022 End: 10-31-2022 ambulatory VILLA NICOLAS [facility] Start: 06-27-2022 End: 06-28-2022 ambulatory YASMEEN WINTERS Facility:[facility] Start: 01-20-2022 End: 01-21-2022 ambulatory REBECA GOLDEN Facility:[facility] Start: 01-16-2022 End: 01-17-2022 ambulatory REBECA GOLDEN Facility: Start: 01-09-2022 End: 01-09-2022 ambulatory VILLA NICOLAS Facility:[facility] Start: 01-04-2022 End: 01-05-2022 ambulatory Ambrose Rodriguez Facility:[facility] Start: 12-30-2021 End: 12-31-2021 ambulatory VILLA NICOLAS Facility:[facility] Start: 11-25-2021 End: 11-26-[address] VILLA NICOLAS Facility: Start: 10-02-2016 End: 10-03-2016 Ambulatory DEFAULT PHYSICIAN Facility:[facility] Procedures Date Procedure Procedure Detail Performing Clinician Start: 07-21-2023 Glucose blood reagent strip Christian fisher MD Work Phone: Start: 07-20-2023 Glucose blood reagent strip Christian fisher MD Work Phone: Start: 07-20-2023 Glucose blood reagent strip Christian fisher MD Work Phone: Start: 07-20-2023 Fluoroscopy during operation Christian Webster MD Work Phone: Start: 07-20-2023 End: 07-20-2023 Laminectomy w/o ffd > 2 vert seg lumbar Christian Webster MD Work Phone: Start: 07-20-2023 Glucose blood reagent strip Christian fisher MD Work Phone: Start: 07-06-2023 Doppler ultrasonography of bilateral carotid arteries II Villa Nicolas Work Phone: Start: 07-06-2023 Pulse volume recorder plethysmography II Villa Nicolas Work Phone: Start: 05-24-2023 Basic metabolic panel calcium total Amrita Flores MD Work Phone: Start: 08-10-2022 History of coronary artery bypass grafting Status post coronary artery bypass graft Kae Barone MA Plan of Treatment Date Care Activity Detail Author Start: 05-23-2024 Hemoglobin A1c measurement A1C test (Diabetic or Prediabetic) [facility] Start: 03-15-2024 Screening for malign ant neoplasm of colon Colorectal Cancer Screening [facility] Comment on above: Postponed from 12/08 (Patient Refused) Start: 03-04-2024 Screening for malign ant neoplasm of breast Mammogram [facility] Healthcare Comment on above: Postponed from 12/08 (Patient Refused) Start: 10-25-2023 Influenza vaccination Flu vacc ine (Season Ended) DONTE MORAES [facility] Start: 09-23-2023 Influenza vaccination Influenza Vacc ine (#1) [facility] Comment on above: Postponed from 11/24 (Patient Refused) Start: 08-22-2023 End: 08-22-2023 Patient encounter procedure 08/22/2023 11:30 AM EDT Office Visit [address], [address] [place] [id number] Christian Webster MD [address] [place] [address] [place] [id number] 4 week 1st post op-RE-DO L3-4 LUMBAR LAMINECTOMY [ [facility] Comment on above: 4 week 1st post op-R E-DO L3-4 LUMBAR LAMINECTOMY [ Start: 07-06-2023 Doppler ultrasonogra phy of bilateral carotid arteries US carotid doppler BI [facility] Start: 07-06-2023 Pulse volume recorde r plethysmography [facility] Start: 07-06-2023 US.doppler Carotid arteries - bilateral [facility] Start: 07-04-2023 End: 07-04-2023 Patient encounter procedure 07/04/2023 1:50 PM EDT Office Visit [facility] [address] [place] [address], [address] [place] [id number] Christian Webster MD [address] [place] [address] 15 [place] [address] 4 week 1st post op-Redo L3-4 Lami [facility] Comment on above: 4 week 1st post op-R jenni L3-4 Lami Start: 06-25-2023 End: 06-25-2023 Patient encounter procedure 06/25/2023 2:00 PM EDT Office Visit [facility] [address] [facility] [address] [place] [phone] Villa Nicolas MD [address] [facility] [address] [place] [address] [facility] Start: 06-14-2023 Hemoglobin A1c measurement Diabetes: Hemoglobin A1C [facility] Start: 06-07-2023 End: 06-07-2023 Admission to same day surgery center 06/07/2023 9:55 AM EDT - 06/07/2023 12:00 PM EDT Surgery [facility] OR [address] [place] [place] [address] [id number] Christian Webster MD [address] [id number] RE-DO L3-4 LUMBAR LAMINECTOMY [facility] OR Comment on above: RE-DO L3-4 LUMBAR LA MINECTOMY Start: 06-07-2023 End: 06-07-2023 Laminectomy w/o ffd > 2 vert seg lumbar LUMBAR LAMINECTOMY POSTERIOR Spinal stenosis of lumbar region, unspecified whether neurogenic claudication present 06/07/2023 9:55 AM EDT [facility] Start: 06-07-2023 Subsequent hospital visit by physician 06/07/2023 9:55 AM EDT Hospital Encounter [facility] [address] [place] [address] Christian Webster MD [address] [address] [facility] [place] Start: 05-30-2023 End: 05-30-2023 Patient encounter procedure 05/30/2023 2:20 PM EST Office Visit [facility] [address] [facility] [address] [place] [phone] Zoë Bauman MD [address] [place] [address] [place] [address] [facility] Start: 05-23-2023 End: 05-23-2023 Clinical Support 05/23/2023 11:00 AM EST Clinical Support [facility] [address] [facility] [address] [place] [phone] Crystal Dunlap, [facility] [address] [facility] [place] [address] [facility] Start: 05-16-2023 End: 05-16-2023 Patient encounter procedure 05/16/2023 10:30 AM EST Office Visit [facility] [address] [place] [address], [address] [place] [address] Christian Webster MD [address] [place] [id number] 4 week 1st post op-Redo L3-4 Lami [facility] Comment on above: 4 week 1st post op-R jenni L3-4 Lami Start: 04-20-2023 End: 04-20-2023 Admission to same day surgery center 04/20/2023 10:00 AM EST - 04/20/2023 11:55 AM EST Surgery [facility] [address] [place] [id number] Christian Webster MD [address] [place] [address] 15 [place] [address] REDO L3-4 LUMBAR LAMINECTOMY POSTERIOR [facility] OR Comment on above: REDO L3-4 LUMBAR KNOTT INECTOMY POSTERIOR Start: 04-20-2023 End: 04-20-2023 Knott facetectomy & foramotomy 1 segment lumbar LUMBAR LAMINECTOMY POSTERIOR Spinal stenosis of lumbar region, unspecified whether neurogenic claudication present 04/20/2023 10:00 AM [facility] Start: 04-20-2023 Subsequent hospital visit by physician 04/20/2023 10:00 AM [facility] Hospital Encounter [facility] [address] [place] [id number] Christian Webster MD [address] [place] [address] [facility] [place] Start: 04-05-2023 Subsequent hospital visit by physician 04/05/2023 1:00 PM [facility] Hospital Encounter [facility] PRE-ADMIT TESTING [address] [place] [address] [id number] [facility] PRE-ADMIT TEST[facility] Start: 02-19-2023 Annual Wellness Visi t (Medicare) Annual Wellness Visit (Medicare) [facility] Start: 01-26-2023 Hemoglobin A1c measurement A1C test (Diabetic or Prediabetic) [facility] Start: 12-09-2022 Screening for malign ant neoplasm of colon FIT-DNA [facility] Start: 11-24-2022 COVID-19 Vaccine ( season) COVID-19 Vaccine ( season) [facility] Start: 10-24-2022 Influenza vaccination Flu vaccine (# 1) [facility] Start: 09-29-2022 Medicare Annual Well ness (AWV) Medicare Annual Wellness (AWV) [facility] Start: 01-14-2020 Shingles vaccine (2 of 2) Conklin gles vaccine (2 of 2) [facility] Start: 06-27-2019 Urine screening for protein Diabetes: Urine Protein Screening [facility] Start: 08-30-2018 Pneumococcal 65+ yea rs Vaccine (3 - PPSV23 or PCV20) Pneumococcal 65+ years Vaccine (3 - PPSV23 or PCV20) [facility] Start: 08-30-2018 Pneumococcal 65+ yea rs Vaccine (3 of 3 - PPSV23 or PCV20) Pneumococcal 65+ years Vaccine (3 of 3 - PPSV23 or PCV20) [facility] Start: 2010 Respiratory Syncytia l Virus (RSV) or age 60 yrs+ (1 - 1-dose 60+ series) Respiratory Syncytial Virus (RSV) or age 60 yrs+ (1 - 1-dose 60+ series) [facility] Start: 2000 Screening for malign ant neoplasm of breast Breast cancer screen [facility] Start: 12-09-1995 Screening for malign ant neoplasm of colon [facility] Start: 1969 DTaP/Tdap/Td vaccine (1 - Tdap) DTaP/Tdap/Td vaccine (1 - Tdap) [facility] Start: 1968 Hepatitis C screening Hepatitis C sc reen [facility] Start: 1962 Depression Screen Depression Screen [facility] Start: 1960 [facility] Start: 1950 Screening for malign ant neoplasm of colon [facility] End: 07-20-2023 Glucose [Mass/volume] in Serum or Plasma POCT Glucose Point of Care Testing STAT One Time for 1 Occurrences starting 07/20/2023 until 07/20/2023 [facility] Work Phone: Comment on above: One Time for 1 Occur rences starting 07/20/2023 until 07/20/2023 Oxygen therapy [[facility] Data Set] Initiate Oxygen Therapy Protocol Respiratory Care Routine As Needed until discontinued starting 07/20/2023 [facility] Comment on above: As Needed until disc ontinued starting 07/20/2023 Spirometry panel Incentive allen metry Respiratory Care Routine Every 2hr while awake until discontinued starting 07/20/2023 [facility] Comment on above: Every 2hr while awak e until discontinued starting 07/20/2023 Immunizations Immunization Date Immunization Notes Care Provider Lucas muir 02-02-2022 influenza, high dose seasonal, preservative-free Kae Barone MA [facility] are 02-02-2022 influenza virus vacc ine, unspecified formulation Kae Barone MA [facility] 01-27-2022 SARS-CoV-2, Unspecified Kae sheehan MA [facility] 02-23-2021 influenza, high dose seasonal, preservative-free Kae Barone MA [facility] are 12-03-2019 Influenza, High-dose Seasonal, Quadrivalent, Preservative Free Kae Barone MA [facility] 11-19-2019 zoster vaccine recombinant Kae lyons MA [facility] 12-20-2017 Influenza, High-dose Seasonal, Quadrivalent, Preservative Free Kae Barone MA [facility] 08-30-2017 pneumococcal conjuga te vaccine, 13 valent Kae Barone MA [facility] 12-24-2014 seasonal influenza, intradermal, preservative free Kae Barone MA [facility] 01-26-2014 influenza, seasonal, injectable Kae Barone MA [facility] 02-28-2013 seasonal influenza, intradermal, preservative free Kae Barone MA [facility] 03-26-2011 pneumococcal polysac charide vaccine, 23 valent Kae Barone MA [facility] Payers Date Payer Category Payer Self-pay [id number] 2017 Medicare MEDICARE MEDICAR E PART B [id number] 2017-Present [address] [address] [place] [address] Medicare [id number] 2017 Medicaid MEDICAID [facility] [id number] 2017-Present [phone] [address] [place] [address] Medicaid [id number] 1959 Medicaid [id number] 1959 Medicare [id number] 1959 Medicare [id number] 1959 Self-pay [id number] 1950 Unknown [id number] [id number] 1950 Unknown [id number] 2.16.840.1.469002.3.579.2.718 1950 Unknown [id number] 2.16.840.1.059199.3.579.2.718 1950 Unknown [id number] 2.16.840.1.948517.3.579.2.593 1950 Unknown [id number] 2.16.840.1.444000.3.579.2.593 1950 Unknown [id number] 2.16.840.1.152192.3.579.2.593 1950 Unknown [id number] 2.16.840.1.231930.3.579.2.593 1950 Unknown [id number] 2.16.840.1.217949.3.579.2.593 1950 Unknown [id number] 2.16.840.1.518770.3.579.2.175 1950 Unknown [id number] 2.16.840.1.653079.3.579.2.1259 1950 Unknown [id number] 2.16.840.1.581311.3.579.2.1259 1950 Unknown [id number] 2.16.840.1.321651.3.579.2.1259 1950 Unknown [id number] 2.16.840.1.436902.3.579.2.1259 1950 Unknown [id number] 2.16.840.1.404881.3.579.2.1259 1950 Unknown [id number] 2.16.840.1.210658.3.579.2.1259 1950 Unknown [id number] 2.16.840.1.462072.3.579.2.177 1950 Unknown [id number] 2.16.840.1.517000.3.579.2.177 1950 Unknown [id number] 2.16.840.1.994207.3.579.2.177 Unknown Unknown [id number] 2.16.840.1.423675.3.579.2.531 Social History Date Type Detail Facility Start: 10-26-2022 End: 07-20-2023 Tobacco smoking status NMIS [facility] History of tobacco use Cigarette Smoker B [facility] Start: 10-26-2022 End: 07-20-2023 Cigarettes smoked current (pack per day) - Reported 0.5 [facility] Start: 10-26-2022 End: 07-20-2023 Tobacco use and exposure Smokeless tobacco non-user [facility] Start: 02-02-2023 End: 07-20-2023 Alcohol intake Ex-drinker (finding) [facility] Start: 02-02-2023 End: 07-20-2023 Tobacco use panel [facility] Start: 10-26-2022 Tobacco Comment Started smoking at age 16, quit at the age of 30 then started smoking again a little over a year ago (written 10/26/2022) [facility] Start: 1950 Sex Assigned At Not on file [facility] Start: 04-23-2023 Alcohol intake Lifetime non-drinker (finding) [facility] Start: 03-29-2023 Alcohol Comment caffeine intake : 2-3 cups per day coffee, soda [facility] Start: 06-25-2023 Tobacco smoking status NMIS Smoker (finding) [facility] Start: 1950 Sex Assigned At Female [facility] Has the [employer], [employer], or water [email or web address] threatened to shut off services in your home in past 12Mo No [employer] (I/We) worried [facility] (my/our) food would run out before (I/we) got money to buy more. Never true [employer] In the past 12 month s, has lack of transportation kept you from medical appointments or from getting medications? No [employer] Clinical Notes 01-09-2022 to 07-21-2023 Tamiko Toledo, RN - 07/21/2023 2:25 PM Tequila Erwin PT - 07/21/2023 11:12 AM Merary García OT - 07/21/2023 10:24 AM Barb Charles PA - 07/21/2023 8:16 AM EDTAttachments Note Date & Type Note Facility 07-21-2023 History of Present illness Narrative Pt discharged to home with belongings via transport. Discharge instructions given. AVS understood. Pt denies having any further questions at this time. Personal items given to patient at discharge Patient/family state they have everything they were admitted with. Personal wheelchair sent home with patient as well. Physical Therapy [facility]Department[facility] Physical Therapy Initial Assessment Name: Mirna Quezada : 1950 Date of Service: 07/21/2023 Discharge Recommendations: Patient would benefit from continued therapy after discharge Patient Diagnosis(es): There were no encounter diagnoses. Past Medical History: has a past medical history of Abnormal gait, CAD (coronary artery disease), Carpal tunnel syndrome, Cervical myelopathy (HCC), COVID, Depression, Diabetes (HCC), Disc degeneration, lumbar, Foot drop, left foot, Hearing loss, History of blood transfusion, History of coronary artery disease, History of OR (myocardial infarction), Hyperlipidemia, Hypertension, Lumbar disc disorder with myelopathy, OR (myocardial infarction) (HCC), Neuropathy, Parkinson's disease (HCC), PVD (peripheral vascular disease) ([facility]), Seasonal allergies, Spinal stenosis, Tinnitus, Tremors of nervous system, Under care of service provider, Under care of service provider, Under care of service provider, Under care of service provider, Under care of team, Urinary incontinence, and Walker as ambulation aid. Past Surgical History: has a past surgical history that includes Coronary artery bypass graft (2000); Spinal fusion; Cholecystectomy; Cataract extraction, extracapsular w/ intraocular lens implant (Bilateral); section; Carpal tunnel release (Left); Cardiac catheterization; Cervical spine surgery; and laminectomy (N/A, 07/20/2023). Assessment Body Structures, Functions, Activity Limitations Requiring Skilled Therapeutic Intervention: Decreased functional mobility ;Decreased strength;Decreased endurance;Decreased balance Assessment: Skilled therapy needed to maximize independence with functional mobility as well as improved endurance, balance, strength. Patient currently CGA with ambulation with roll walker. Therapy Prognosis: Good Decision Making: Medium Complexity Exam: AROM, strength, endurance, balance, mobility, AM-PAC Requires PT Follow-Up: Yes Activity Tolerance Activity Tolerance: Patient tolerated treatment well Plan Physical Therapy Plan General Plan: 6-7 times per week Current Treatment Recommendations: Strengthening, Balance training, Functional mobility training, Transfer training, Endurance training, Gait training, Safety education & training, Patient/Caregiver education & training, Therapeutic activities, Positioning Safety Devices Type of Devices: Call light within reach, Gait belt, Left in chair, Chair alarm in place, Patient at risk for falls, Nurse notified Restrictions Restrictions/Precautions Restrictions/Precautions: Contact Precautions Required Braces or Orthoses?: No Position Activity Restriction Spinal Precautions: No Lifting, No Bending, No Twisting Other position/activity restrictions: up with assist, parkinsons, LUE IV Subjective General Chart Reviewed: Yes Patient assessed for rehabilitation services?: Yes Family / Caregiver Present: No General Comment Comments: RN states patient appropriate for therapy Subjective Subjective: patient sleeping when therapist entered room, easily awakens and pleasant and cooperative Social/Functional History Social/Functional History Lives With: Spouse Type of Home: Trailer Home Layout: One level Home Access: Ramped entrance Bathroom Shower/Tub: Tub/Shower unit Bathroom Toilet: Standard Bathroom Equipment: Shower chair, Toilet raiser Home Equipment: Walker, rolling, Wheelchair-manual, Wheelchair-electric Has the patient had two or more falls in the past year or any fall with injury in the past year?: Yes (pt reports 1 fall ~6 weeks ago, pt reports she was walking with the electric w/c and tripped) Receives Help From: Friend(s) (friend assists with showers, laundry, and cleaning (4 days a week - 3 hours a day)) ADL Assistance: Needs assistance ( assists with shoes as needed) Homemaking Assistance: Needs assistance Homemaking Responsibilities: Yes (friend assists with laundry, grocery shopping, and cleaning. 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: used to do crafts Vision/Hearing Vision Vision: Impaired Vision Exceptions: Wears glasses at all times Hearing Hearing: Exceptions to WFL Hearing Exceptions: Hard of hearing/hearing concerns (pt is getting a R hearing aid) Cognition Orientation Overall Orientation Status: Within Functional Limits Cognition Overall Cognitive Status: Exceptions Arousal/Alertness: Appropriate responses to stimuli Following Commands: Follows multistep commands consistently Attention Span: Appears intact Memory: Appears intact Safety Judgement: Decreased awareness of need for safety;Decreased awareness of need for assistance Problem Solving: Assistance required to identify errors made;Assistance required to correct errors made Insights: Decreased awareness of deficits Initiation: Does not require cues Sequencing: Requires cues for some Objective Temp: 97.6 F (36.4 C) Pulse: 76 Heart Rate Source: Monitor Respirations: 16 SpO2: 96 % O2 Device: None (Room air) BP: (!) 139/43 MAP (Calculated): 75 BP Location: Right upper arm BP Method: Automatic Observation/Palpation Posture: Fair (decreased lordosis, rounded shoulders) Observation: L drop foot (pt reporting she is getting a new AFO), numbness in BLE (hips down to toes), sx dressing intact and dry, surgeon in and removed drain AROM RLE (degrees) RLE AROM: WFL AROM LLE (degrees) LLE AROM : WFL LLE General AROM: except trace ankle DF AROM RUE (degrees) RUE General AROM: refer to OT assessment AROM LUE (degrees) LUE General AROM: refer to OT assessment Strength RLE Comment: 4/5 Strength LLE Comment: hip/knee 4/5, ankle DF 2-/5 Bed mobility Rolling to Right: Stand by assistance Supine to Sit: Stand by assistance Scooting: Stand by assistance Bed Mobility Comments: verbal cues for log rolling technique Transfers Sit to Stand: Contact guard assistance Stand to Sit: Contact guard assistance Comment: manual/verbal cues for correct hand placement Ambulation Surface: Level tile Device: Rolling Walker Assistance: Contact guard assistance Gait Deviations: Decreased step length;Decreased step height Distance: 30 feet Comments: patient ambulated around room initially with step to pattern but progressed to reciprocal gait, steady Balance Sitting - Static: Good Sitting - Dynamic: Good Standing - Static: Fair Standing - Dynamic: Fair OutComes Score AM-PAC - Mobility AM-PAC Basic Mobility - Inpatient How much help is needed turning from your back to your side while in a flat bed without using bedrails?: None How much help is needed moving from lying on your back to sitting on the side of a flat bed without using bedrails?: None How much help is needed moving to and from a bed to a chair?: A Little How much help is needed standing up from a chair using your arms?: A Little How much help is needed walking in hospital room?: A Little How much help is needed climbing 3-5 steps with a railing?: A Little [facility] Inpatient Mobility Raw Score : 20 [facility] Inpatient T-Scale Score : 47.67 Mobility Inpatient CMS 0-100% Score: 35.83 Mobility Inpatient CMS G-Code Modifier : CJ Tinneti Score Goals Short Term Goals Time Frame for Short Term Goals: 12 visits Short Term Goal 1: Independent bed mobility with log rolling Short Term Goal 2: Independent sit<>stand Short Term Goal 3: Patient to ambulate 100 feet with roll walker SBA Short Term Goal 4: Patient to perform 25 minutes ther act to facilitate improving endurance, balance Patient Goals Patient Goals : to go home Education Patient Education Education Given To: Patient Education Provided: Role of Therapy;Plan of Care;Transfer Training Education Provided Comments: log rolling Education Method: Demonstration;Verbal Education Outcome: Continued education needed Therapy Time Individual Concurrent Group Co-treatment Time In 0747 Time Out 0815 (additional 10 minutes for chart review) Minutes 28+10=38 Treatment time: 24 minutes Tequila Rajan PT Occupational Therapy Facility/Department: [facility] Occupational Therapy Initial Assessment Name: Mirna Quezada : 1950 Date of Service: 07/21/2023 Discharge Recommendations: Patient would benefit from continued therapy after discharge OT Equipment Recommendations Equipment Needed: Yes Mobility Devices: ADL Assistive Devices ADL Assistive Devices: Long-handled Shoe Horn;Sock-Aid Hard Due to recent hospitalization and medical condition, pt would benefit from additional intermittent skilled therapy at time of discharge. Please refer to the [facility] score for current functional status. KYLE Morrison reports patient is medically stable for therapy treatment this date. Chart reviewed prior to treatment and patient is agreeable for therapy. All lines intact and patient positioned comfortably at end of treatment. All patient needs addressed prior to ending therapy session. Patient Diagnosis(es): There were no encounter diagnoses. Past Medical History: has a past medical history of Abnormal gait, CAD (coronary artery disease), Carpal tunnel syndrome, Cervical myelopathy (HCC), COVID, Depression, Diabetes (HCC), Disc degeneration, lumbar, Foot drop, left foot, Hearing loss, History of blood transfusion, History of coronary artery disease, History of OR (myocardial infarction), Hyperlipidemia, Hypertension, Lumbar disc disorder with myelopathy, OR (myocardial infarction) ([facility]), Neuropathy, Parkinson's disease ([facility]), PVD (peripheral vascular disease) ([facility]), Seasonal allergies, Spinal stenosis, Tinnitus, Tremors of nervous system, Under care of service provider, Under care of service provider, Under care of service provider, Under care of service provider, Under care of team, Urinary incontinence, and Walker as ambulation aid. Past Surgical History: has a past surgical history that includes Coronary artery bypass graft (2000); Spinal fusion; Cholecystectomy; Cataract extraction, extracapsular w/ intraocular lens implant (Bilateral); section; Carpal tunnel release (Left); Cardiac catheterization; Cervical spine surgery; and laminectomy (N/A, 07/20/2023). RE-DO L3-4 LUMBAR LAMINECTOMY. Surgeon(s): Christian Webster MD Assessment Performance deficits / Impairments: Decreased functional mobility ;Decreased strength;Decreased endurance;Decreased ADL status;Decreased balance;Decreased cognition;Decreased posture;Decreased sensation;Decreased fine motor control;Decreased coordination Assessment: Pt presents with poor activity tolerance, spinal precautions, and dec strength. Skilled OT is indicated to increase overall IND and safety with self-care and functional tasks to return to PLOF. Prognosis: Good Decision Making: Medium Complexity REQUIRES OT FOLLOW-UP: Yes Activity Tolerance Activity Tolerance: Patient Tolerated treatment well Plan Occupational Therapy Plan Times Per Week: 5x per week Current Treatment Recommendations: Strengthening, Balance training, Functional mobility training, Endurance training, Patient/Caregiver education & training, Safety education & training, Equipment evaluation, education, & procurement, Self-Care / ADL, Cognitive/Perceptual training Restrictions Restrictions/Precautions Restrictions/Precautions: Contact Precautions Required Braces or Orthoses?: No Position Activity Restriction Spinal Precautions: No Lifting, No Bending, No Twisting Other position/activity restrictions: up with assist, parkinsons, LUE IV Subjective General Chart Reviewed: Yes Patient assessed for rehabilitation services?: Yes Family / Caregiver Present: No Subjective Subjective: pt is pleasant and cooperative for OT eval Social/Functional History Social/Functional History Lives With: Spouse Type of Home: Trailer Home Layout: One level Home Access: Ramped entrance Bathroom Shower/Tub: Tub/Shower unit Bathroom Toilet: Standard Bathroom Equipment: Shower chair, Toilet raiser Home Equipment: Walker, rolling, Wheelchair-manual, Wheelchair-electric Has the patient had two or more falls in the past year or any fall with injury in the past year?: Yes (pt reports 1 fall ~6 weeks ago, pt reports she was walking with the electric w/c and tripped) Receives Help From: Friend(s) (friend assists with showers, laundry, and cleaning (4 days a week - 3 hours a day)) ADL Assistance: Needs assistance ( assists with shoes as needed) Homemaking Assistance: Needs assistance Homemaking Responsibilities: Yes (friend assists with laundry, grocery shopping, and cleaning. 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: used to do crafts Objective Observation/Palpation Observation: L drop foot (pt reporting she is getting a new AFO), numbness in BLE (hips down to toes), sx dressing intact and dry Safety Devices Type of Devices: Call light within reach;Gait belt;Left in chair;Chair alarm in place;Patient at risk for falls;Nurse notified Bed Mobility Training Bed Mobility Training: Yes Overall Level of Assistance: Stand-by assistance Interventions: Verbal cues (Min cues for proper log roll tech) Supine to Sit: Stand-by assistance (pt used proper log roll tech) Sit to Supine: Other (comment) (pt in recliner upon exit) Transfer Training Transfer Training: Yes Overall Level of Assistance: Contact-guard assistance (STS from EOB with RW) Interventions: Verbal cues;Safety awareness training;Tactile cues;Weight shifting training/pressure relief (Min cues for proper hand placement on stable surface, controlled sit<>stand, assist with lines, RW safety/mgmt, and squaring self/AD to surface) Sit to Stand: Contact-guard assistance Stand to Sit: Contact-guard assistance AROM: Within functional limits PROM: Within functional limits Strength: Grossly decreased, non-functional (4-/5) Coordination: Generally decreased, functional (tremors) ADL Feeding: Setup Grooming: Stand by assistance;Based on clinical judgement (seated) UE Bathing: Contact guard assistance;Based on clinical judgement LE Bathing: Maximum assistance;Based on clinical judgement UE Dressing: Minimal assistance UE Dressing Skilled Clinical Factors: to adjust hosp gown for modesty LE Dressing: Moderate assistance;Maximum assistance;Based on clinical judgement Toileting: Minimal assistance;Moderate assistance;Based on clinical judgement Functional Mobility: Contact guard assistance Functional Mobility Skilled Clinical Factors: Pt demo'd functional mob from bedside to doorway, and to bedside chair with RW. No LOB noted. Pt reporting slight dizziness. Min cues for upright posture, pacing, pursed lip breathing, RW safety/mgmt, and assist with lines. Additional Comments: self-care is limited d/t spinal precautions, dec activity tolerance, pain, and weakness. Vision Vision: Impaired Vision Exceptions: Wears glasses at all times Hearing Hearing: Exceptions to WFL Hearing Exceptions: Hard of hearing/hearing concerns (pt is getting a R hearing aid) Cognition Overall Cognitive Status: Exceptions Arousal/Alertness: Appropriate responses to stimuli Following Commands: Follows multistep commands consistently Attention Span: Appears intact Memory: Appears intact Safety Judgement: Decreased awareness of need for safety;Decreased awareness of need for assistance Problem Solving: Assistance required to identify errors made;Assistance required to correct errors made Insights: Decreased awareness of deficits Initiation: Does not require cues Sequencing: Requires cues for some Orientation Overall Orientation Status: Within Functional Limits Education Given To: Patient Education Provided: Role of Therapy;ADL Adaptive Strategies;Fall Prevention Strategies;Transfer Training;Plan of Care;Energy Conservation;Precautions Education Provided Comments: OT POC, purpose of OT in acute care, safety in function, benefits of OOB activity, call light/fall prevention, log roll tech, transfer tech Education Method: Verbal;Demonstration Education Outcome: Continued education needed AM-PAC - ADL AM-PAC Daily Activity - Inpatient How much help is needed for putting on and taking off regular lower body clothing?: A Lot How much help is needed for bathing (which includes washing, rinsing, drying)?: A Lot How much help is needed for toileting (which includes using toilet, bedpan, or urinal)?: A Little How much help is needed for putting on and taking off regular upper body clothing?: A Little How much help is needed for taking care of personal grooming?: A Little How much help for eating meals?: None AM-PAC Inpatient Daily Activity Raw Score: 17 AM-PAC Inpatient ADL T-Scale Score : 37.26 ADL Inpatient CMS 0-100% Score: 50.11 ADL Inpatient CMS G-Code Modifier : CK Goals Short Term Goals Time Frame for Short Term Goals: by discharge, pt to demo Short Term Goal 1: I/OR for bed mob with proper log roll tech Short Term Goal 2: I/OR for ADL transfers and functional mob with AD as needed and Good safety Short Term Goal 3: I/OR for total body ADLs with AE as needed and Good safety Short Term Goal 4: I/OR for toileting routine with BSC/AD as needed Short Term Goal 5: pt/family to be IND with EC/WS, fall prevention tech, pressure relief education, disease specific education, spinal precautions, discharge recommendations, AE/DME recommendations, with use of handouts as needed Patient Goals Patient goals : to go home Therapy Time Individual Concurrent Group Co-treatment Time In 0807 Time Out 0836 (+10 chart review) Minutes 39 Tx time: 23 min Upon designer/writer exit, call light within reach, pt retired to chair. All lines intact and patient positioned comfortably. All patient needs addressed prior to ending therapy session. Chart reviewed prior to treatment and patient is agreeable for therapy. RN reports patient is medically stable for therapy treatment this date. Merary Bocanegra OTR/L 07/21/2023 8:16 AM Mirna Quezada 1950 [id number] SUBJECTIVE: Uneventful PM per nursing, pt doing well this AM. C/O some low back discomfort, states no new N/T in UE or LE. States LE pain improved OOB with assistance and walker. Eating and drinking well. OBJECTIVE Physical Temperature Range (24h):Temp: 97.6 F (36.4 C) Temp Av.7 F (36.5 C) Min: 97.2 F (36.2 C) Max: 98.2 F (36.8 C) BP Range (24h): Systolic (24hrs), Av , Min:95 , Max:162 Diastolic (24hrs), Av, Min:26, Max:68 Pulse Range (24h): Pulse Av.5 Min: 62 Max: 102 Respiration Range (24h): Resp Av.7 Min: 16 Max: 20 Current Pulse Ox (24h): SpO2: 96 % Pulse Ox Range (24h): SpO2 Av.3 % Min: 94 % Max: 98 % In: 1674.1 [I.V.:1424.7] Out: 145 [Drains:145] Good strength and sensation in both UE and LE. Incision CDI. ASSESSMENT AND PLAN 72 y.o. female status post L3-4 lumbar laminectomy post op day # 1 -Patient to work with PT today -OK for patient to be discharged home this afternoon if doing well, eating and drinking, OOB to halls, urinating normally. F/U care and wound care instructions given at bedside. F/U with Dr. Webster in 2 weeks. Patient seen and examined with Dr Webster Pt admitted to room 2106 from PACU Patient alert an oriented x4 Oriented to room and call light/tv controls. Bed in lowest position, wheels locked, 2/4 side rails up Call light in reach, room free of clutter, adequate lighting provided. documented in this encounter [facility] 07-20-2023 Hospital Discharge instructions Tamiko Toledo RN - 07/20/2023 10:05 AM EDT Resume Aspirin 07/22/2023 Resume Plavix 07/24/2023 No [address] for two weeks after surgery. No lifting greater than 10 pounds for the first month. Keep dressing dry and in place until shower on Sunday07/24/2023 Remove dressing after shower on Sunday07/24/2023 Keep it Clean - Post-Operative Home instructions These instructions are to help you have the best possible recovery after your surgical procedure. Ibeth is here to support you. If you have questions, call [phone] Sunday through Sunday from 7:30AM to 8:30PM to speak to a nurse. If you need to speak to someone outside of these hours, call your physician. Incision Do s and Don ts Do wash hands before and after dressing changes or when you have had any contact with your incision. Use hand country singer or antibacterial soap. Do keep your incision clean and dry. It s OK to wash the skin around your incision with mild soap and water. Do change your dressing as you were told. Do notify your doctor if the dressing becomes wet or dirty. Do use a clean washcloth every time when cleaning your incision. Do sleep on clean linens. Do keep pets away from incision site. Don t sit in a bathtub, pool, or hot tub until your incision is fully closed and any drains are removed. Don t scrub, pick, scratch, or pull at your incision. Don t use oils, lotions, or creams on your incision unless your healthcare provider approves it. Follow-up You will have one or more follow-up visits with your healthcare provider. These are needed to check how well you re healing. Your drain, stitches, or rosa may also be removed during these visits. Do not miss your follow-up visit, even if you are feeling better. Call your healthcare provider right away if you have the following: Fever of 100.4 F (38 C) or higher, or as advised by your healthcare provider. Chest pain or trouble breathing. Pain or tenderness in your leg(s). Increased pain, redness, swelling, bleeding, or foul-smelling drainage at the incision site. Incision changes, separates or is hot to the touch. Problems with the drain if you have one. Itchy, swollen skin; skin rash. Medicines, Diet, and Activity: Refer to your discharge paperwork for further instructions The following attachments cannot be sent through Care Everywhere.Lumbar Laminectomy: Post-op ([place])Constipation ([place])DVT (Deep Vein Thrombosis): General Info ([place])Smoking Cessation: Health Benefits: General Info ([place])Diabetes: Type 2 ([place])tizanidine ([place])Hydrocodone/Acetaminoph en Oral Tablet (HYDROCODONE/ACETAMINOPHEN - ORAL) ([place])documented in this encounter [facility] 05-25-2023 Note [facility] CARDIOLOGY PROGR ESS NOTE [...] sent a referral to vascular surgery in [place] for carotid artery stenosis. Review of Systems Musculoskeletal: Positive for arthritis, back pain, joint pain, muscle weakness, myalgias and neck pain. Neurological: Positive for weakness. All other systems reviewed and are negative. 04/19/23 previous API HPI Patient being seen via telemedicine for follow up [facility] for acute on chronic diastolic heart failure, CAD, AO stenosis, HTN. She feels good s/p hospital stay. She denies chest pain, SOB, palpitations, LE edema, and lightheadedness/syncope. No testing since [facility] discharge. Visit Vitals BP 98/60 (BP Location: [...] mcg by mouth in the morning. HYDROcodone-acetaminophen ([place]) 10-325 mg tablet Take 1 tablet by [...] U (more content not included)... [facility] 05-25-2023 Note Patient here for 1 m o follow up chronic diastolic heart failure, CAD, and aortic valve stenosis. Had BMP last month after apt. BP yesterday at pre-surgery testing apt was 98/43. She denies chest pain, SOB, palpitations, and lightheadedness/syncope. Says PCP sent a referral to vascular surgery in [place] for carotid artery stenosis. Review of Systems Musculoskeletal: Positive for arthritis, back pain, joint pain, muscle weakness, myalgias and neck pain. Neurological: Positive for weakness. All other systems reviewed and are negative. [facility] 05-25-2023 Note 1. preoperative card iac risk stratification Patient is unable to do 4 METS without shortness of breath. Recent lexiscan showed fixed defect, no acute or reversible defects. From a cardiology perspective pt may proceed with planned spinal surgery, she is a moderate risk for a moderate to high risk surgery. [facility] 05-25-2023 Note stable [facility] 05-25-2023 Note [facility] II-III- current ly euvolemic without exacerbation Monitor daily weights, I&O, fluid restriction 1.5-2L/day, renal function and electrolytes- [facility] 05-25-2023 Note Lipid abnormalities are stable Continue lipitor 20 mg daily [facility] 05-25-2023 Note Hypertension is well controlled and continue all medications [facility] 05-24-2023 History of Present illness Narrative PAT [...] has known cardiomyopathy, aortic stenosis, CAD s/p OR and CABG x1 in 2000, heart failure, [...] disease) Carpal tunnel syndrome left Cervical myelopathy (HCC) COVID 01/2020 hospitalized then rehab Depression on Celexa, daughter recently Diabetes ([facility]) checks blood sugar at home,averages 130-140, managed by Dr Nicolas Disc degeneration, lumbar Foot drop, left foot usually uses a walker Hearing loss History of blood transfusion during CABG History of coronary artery disease History of OR (myocardial infarction) 1998 initially treated with Stents then had CABG in 2000 Hyperlipidemia Hypertension managed by Dr Nicolas Lumbar disc disorder with myelopathy OR (myocardial infarction) ([facility]) 04/03/2023 Pt states that they thought I was having a heart attack, but the testing was negative. Neuropathy Seasonal allergies Spinal stenosis Tinnitus Tremors of nervous system patient doesn't know the medical diagnosis but said she was told it's very close to Parkinson's Under care of service provider 02/02/2023 pcp-[facility] [place]-last visit dec 2022 Under care of service provider 02/02/2023 [id number] - due to visit jan 2023 Under care of service provider 02/02/2023 [id number] in [place]-last visit dec 2022 Under care of service provider 02/02/2023 [id number]-last visit oct 2022 Under care of [...] CORONARY ARTERY BYPASS GRAFT 2000 done at [facility] SPINAL FUSION L4-5, S1 Medications Prior to [...] tablets 09/04/11 Del Reilly MD nystatin (MYCOSTATIN) [id number] UNIT/GM powder Apply 1 application topically in [...] 2:08 PM documented in this encounter [facility] 04-19-2023 Note stable [facility] 04-19-2023 Note No acute symptoms- w ill monitor with serial echocardiograms [facility] 04-19-2023 Note Coronary artery dise ase is stable No beta navdeep r/t bradycardia Continue GDMT- ASA lipitor And plavix continue risk factor modifications- heart healthy diet, regular exercise as tolerated and continue all medications. [facility] 04-19-2023 Note [facility]- II-III current ly appears euvolemic- pt denied any concering symptoms Continue GDMT- Currently euvolemic without exacerbation, no Diuretic therapy needed at this time. She has actually lost weight since DC home. Monitor daily weights, I&O, fluid restriction 1.5-2L/day, renal function and electrolytes [facility] 04-19-2023 Note [facility]TP CARDIOLOGY PROGR ESS NOTE Date of phone call: 04/19/2023 HPI Patient being seen via telemedicine for follow up [facility] for acute on chronic diastolic heart failure, CAD, AO stenosis, HTN. She feels good s/p hospital stay. She denies chest pain, SOB, palpitations, LE edema, and lightheadedness/syncope. No testing since [facility] discharge. Previous HPI: Currently pt arrived to [...] was initiated by the patient and conducted [id number] with use of audio-only real time telephone [...] heart failure (CMS/HCC) Coronary artery disease involving crow coronary artery of crow heart without angina pectoris Review of Systems [...] mcg by mouth in the morning. HYDROcodone-acetaminophen (Jasper) 10-325 mg tablet Take 1 tablet by [...] fu (more content not included)... [facility] 04-19-2023 Note Patient being seen v ia telemedicine for follow up [facility] for acute on chronic systolic heart failure. She feels good s/p hospital stay. She denies chest pain, SOB, palpitations, LE edema, and lightheadedness/syncope. No testing since [facility] discharge. Review of Systems Musculoskeletal: Positive for arthritis, back pain, joint pain, muscle weakness, myalgias and neck pain. Neurological: Positive for weakness. All other systems reviewed and are negative. [facility] 04-05-2023 Note Patient just had vis itors arrive to see her. Cancelled transport request. Provided a list of local food pantries. [facility] 04-05-2023 Note 04/05/23 [id number] Admission Assessment Questions Verify insurance with patient Yes (Medicare/[place] Medicaid) Do you understand medical disease or what brought you into the hospital? Yes ( I was sent here from [facility] because they thought I had a [...] Discharge? Yes Does the patient have a director case assigned to them through their insurance? Yes Living Arrangement (Current/Prior to Hospitalization) Private residence;Home self care (to start [facility] per new referral from [facility], Lives with , has no adult kids, Has help from Step-Son for cna ltc & Friend Christiana assists with ADL's) Does the patient have history of HHC or SNF? Yes (went to SNF in [place] about 2 yrs ago, no previous Rehab or HHC use) Assistive Device Walker;Wheelchair;Raised toilet seat (has shower chair, previously used Home O2 about 10-15 yrs ago) Patient's goal for discharge Home with [facility], new referral was sent per [facility] prior to admission Was patient reminded that goal for discharge is 11am? Yes Does the patient have transportation at discharge? No (Uses [facility] or [facility] for transportation; [facility] has no availability & too late to request ride through [facility]) Type of Residence/Post Acute Needs Private residence;Home care staff ([facility]) Is PT/OT appropriate? Yes Is PT/OT ordered? Yes Is SW consult appropriate? Yes Is SW consult ordered? Yes Do you understand the benefits of MyChart? No Were you able to send link and activate MyChart? No (patient declined as she does not know how computer works) Screen completed. Medically ready for discharge. Dc Plan: Home, start [facility] per referral that was originally sent per [facility]. Working on transportation issue home to [place]. Possible taxi ride Home pending OTM Information Lead approval. [facility] Bedside RN would need to assist patient into taxi & patient's would need to be informed of approximate arrival time Home so that he can go outside to taxi w/ Walker or WC to assist patient into the Home. [facility] 04-05-2023 Note 2:57pm Sent the AVS to [facility]. 2:34pm Called [facility] per her request. They close at 4pm. Patient does not have any one that can come and get her. 2:21pm Met with the patient. She lives with her and plans on returning. She stated she will need help returning home and that she uses [facility]. Spoke with [facility]. They close at 4pm and are fully booked. She is active with [facility]. Will send updates. 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 [facility] 04-05-2023 Note Hospital Medicine Discharge Summary Final Discharge Diagnosis: Acute on chronic diastolic CHF (congestive heart failure) ([facility]) - resolved NSTEMI II in setting of HF exacerbation and acute hypoxemia 2/2 multilobular pneumonia - resolved Admission Diagnosis: Acute on chronic systolic CHF (congestive heart failure) ([facility]) [I50.23] Hospital course: Mirna Quezada is an 72 y.o. female who came from home with pastMedical history of Parkinson's disease, hypertension, DM2, hyperlipidemia, CAD s/p CABG, COPD presents to the [facility] as a direct admission from [facility] with elevated troponin and acute on [...] on room air -Upon initial arrival to [place] on 03/29/2023, patient was requiring 2 L [...] home on 04/05/23. Dear Dr. Fidencio MD, [place] is advised to follow up with you within 1-2 weeks. Follow-up with: Cardiology and CHF clinic Scheduled appointments: Future Appointments Date Time Provider Department Center 04/19/2023 2:00 PM Shira Wong NP [facility] Your medication list CONTINUE taking these [...] HYDROcodone-acetaminophen 10-325 mg tablet Commonly known as: Jasper isosorbide mononitrate ER 30 mg 24 hr tablet Commonly known as: Imdur metFORMIN 500 mg tablet Commonly known as: Glucophage pregabalin 200 mg capsule Commonly known as: Lyrica primidone 50 mg tablet Commonly known as: Mysoline rOPINIRole 0.25 mg tablet Commonly known as: Requip tiZANidine 4 mg tablet Commonly known as: Zanaflex Mirna is allergic to augmentin [amoxicillin-pot clavulanate]. Disposition: Home-Health Care [facility] Discharge Condition: Stable Code Status: Prior Diagnostic [...] was 40 minutes. Signed Deena Stephenson NP [facility] Medicine 04/09/2023 10:49 AM [facility] 04-05-2023 Note UTP CARDIOLOGY INPAT IENT PROGRESS [...] diet with no excessive oral fluids, and SUPERVISOR QUILTING using no diuretic. Says in past no [...] Value Ventricular Rate 57 Atrial Rate 57 NH Interval 162 QRS DURATION 96 QT Interval 446 QTC CALCULATION(BAZETT) 434 P [place] 57 R-[place] 79 T Wave [place] 11 Impression Sinus bradycardia Otherwise normal ECG [...] A (more content not included)... [facility] 04-05-2023 Note Occupational Therapy Occupational Therapy Evaluation Patient Name: iMrna Quezada : 1950 Today's Date: 04/05/2023 Time In: 929 Time Out: 948 Mirna Quezada is an 72 y.o. female who came from home with pastMedical history of Parkinson's disease, hypertension, DM2, hyperlipidemia, CAD s/p CABG, COPD presents to the [facility] as a direct admission from [facility] with elevated troponin and acute on [...] Limits General Assessment General Assessment Tone: Tremors (BUCole , reports baseline but has not received all her PD meds) Home Living Home Living Type of Home: Mobile home Lives With: Spouse Home Adaptive Equipment: Walker rolling, Wheelchair-power (tn, hhs) Home Layout: One level Home Access: Ramped entrance Bathroom Shower/Tub: Tub/shower unit Prior Level of Function Prior Function Level of [place]: Needs assistance with ADLs, Needs assistance with homemaking (has HOT KNIFE FOXING CUTTER 4x/w for bath, assist with dressing at times) Prior Functional Mobility: Independent with rolling walker Receives Help From: attendant sales (4x/w for bath) ADL Assistance: ( at [...] Current (more content not included)... [facility] 04-04-2023 Note Pt admitted to [facility] for acute on chronic diastolic HF; hx of Parkinson's disease, hypertension, DM2, hyperlipidemia, CAD s/p CABG, COPD. Pt has echo scheduled; previous echo from 11/03/22 estimated LVEF 50%. I will wait for current echo results to determine pt's eligibility to participate in cardiac rehab (CR) therapy with HF diagnosis and follow up with pt , if appropriate. BEENA Cowart video poker floorman Outpatient Coordinator Cardiopulmonary Rehab [facility] 04-04-2023 Note Hospital Medicine Daily Progress Note - 04/04/2023 9:15 AM; Room: 5151/5151-01 Admission: 04/03/2023 8:14 PM; Length of stay: 1 days THE HOSPITALIST TEAM PREFERS TO USE [employer] FOR COMMUNICATION 7AM-7PM. IF I DO NOT RESPOND WITHIN 15 MINUTES, PLEASE PAGE ME/CALL THROUGH THE COMMUNICATIONS PROJECT MANAGER. FROM 7PM-7AM, PLEASE PAGE [phone](COVR) Code Status: DNR CC-A Barriers to Discharge: [...] on chronic diastolic CHF (congestive heart failure) ([facility]) Active Problems: COPD (chronic obstructive pulmonary disease) ([facility]) Coronary artery disease HTN (hypertension) H/O Parkinson's disease HLD (hyperlipidemia) Status post coronary artery bypass graft Type 2 diabetes mellitus without complication ([facility]) Elevated troponin Acute hypoxic respiratory failure ([facility]) Multifocal pneumonia Assessment and Plan Mirna Quezada is an 72 y.o. female who came from home with pastMedical history of Parkinson's disease, hypertension, DM2, hyperlipidemia, CAD s/p CABG, COPD presents to the [facility] as a direct admission from [facility] with elevated troponin and acute on [...] on room air -Upon initial arrival to [place] on 03/29/2023, patient was requiring 2 L [...] table (more content not included)... [facility] 04-04-2023 Note Hospital Medicine History and Physical 04/03/2023 10:32 PM THE HOSPITALIST TEAM PREFERS TO USE [employer] FOR COMMUNICATION 7AM-7PM. IF I DO NOT RESPOND WITHIN 15 MINUTES, PLEASE PAGE ME/CALL THROUGH THE COMMUNICATIONS PROJECT MANAGER. FROM 7PM-7AM, PLEASE PAGE [phone](COVR) Chief Complaint Direct admission from [facility] for elevated troponin and acute on chromic CHF History of Present Illness Mirna Quezada is an 72 y.o. female who came from home with pastMedical history of Parkinson's disease, hypertension, DM2, hyperlipidemia, CAD s/p CABG, COPD presents to the [facility] as a direct admission from [facility] with elevated troponin and acute on chronic CHF exacerbation. Patient originally went to [facility] on 03/29/2023 with a sore throat [...] on chronic diastolic CHF (congestive heart failure) ([facility]) 04/03/2023 Elevated troponin 04/03/2023 Acute hypoxic respiratory failure ([facility]) 04/03/2023 Multifocal pneumonia 04/03/2023 Cigarette [...] dis (more content not included)... [facility] 10-31-2022 Note [facility] She was last seen in September of [address] Jhaveri. She presents today for surgery clearance prior to lumbar laminectomy scheduled next week, 11/09 at [facility]. ECG and labs were done last week as part of preadmission testing. She denies chest pain, SOB, lightheadedness, and palpitations. Smoking less than half PPD she states. Review of Systems Respiratory: Positive for wheezing. Musculoskeletal: Positive for arthritis, back pain, joint pain, muscle weakness, myalgias and neck pain. Neurological: Positive for weakness. All other systems reviewed and are negative. [facility] 10-31-2022 Note Cardiovascular Medic ine [facility] SUBJECTIVE No chief complaint on file. [...] in the morning., Disp: , Rfl: HYDROcodone-acetaminophen (Jasper) 10-325 mg tablet, Take 1 tablet by mouth every 8 (eight) hours., Disp: , Rfl: isosorbide mononitrate ER (Imdur) 30 mg 24 hr tablet, Take 1 tablet by mouth in the morning., Disp: , Rfl: metFORMIN XR (Glucophage-XR) 750 (more content not included)... [facility] 01-11-2022 Note [id number] [facility] 01-09-2022 Note [facility] SURGERY Clinical Discharge Summary PERSON INFORMATION Name MIRNA QUEZADA Age 71 Years 1950 Sex FEMALE Language [place] PCP VILLA NICOLAS Marital Status Med Service Ambulatory Surgery Acct# Arrival 01/09/2022 12:18:00 Visit Reason SURGERY - LEFT CARPAL TUNNEL RELEASE Acuity NADINE 019 06:34 Address: [address] [place] [address] [address] [place] [phone] Comment: PROVIDER INFORMATION VITALS INFORMATION Vital Sign [...] Follow Below Instruc (more content not included)... [facility] 01-09-2022 Note Procedure: Decompres wilman of median [...] on: 01/09/2022 17:13 EDT] Ambrose Rodriguez DO [facility] Evaluation note Diagnosis 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 lumbar disc disorder with myelopathy, lumbar region documented in this encounter [facility]No assessment information [facility] Work Phone: Evaluation note* Diagnosis Onset Date Resolution Status Carotid stenosis acute Claudication [facility] Work Phone: Evaluation note* Diagnosis Spinal stenosis of lumbar region with neurogenic claudication- Primary Spinal stenosis, lumbar region, with neurogenic claudication documented in this encounter [facility] Summary Purpose Family History No Family History Records FoundNo Family History Records FoundNo Family History Records FoundNo Family History Records FoundNo Family History Records FoundNo Family History Records FoundNo Family History Records FoundNo Family History Records FoundNo Family History Records Found Advance Directives No Advanced Directives Records Found Advance Directive Response Recorded Date/ Time Advance Directives No June 24 10:36am Latest Code Status on File Code Status Date Activated Date Inactivated Comments Full Code 07/20/2023 4:23 PM Chief Complaint and Reason for Visit Chief Complaint REF BY DR NICOLAS FOR CAR STEN; NEEDS SURG CLEARANCE Chief Complaint REF BY DR NICOLAS FOR CAR STEN; NEEDS SURG CLEARANCE I65.23 I73.9 Reason for Visit Carotid stenosis Claudication Chief Complaint REF BY DR NICOLAS FOR CAR STEN; NEEDS SURG CLEARANCE I65.23 I73.9 GO OVER PVRS AND CAROTID U/S DONE AT [facility] Reason for Visit Carotid stenosis Claudication Additional Source Comments INFORMATION SOURCE (unrecogn ized section and content) DATE CREATED AUTHOR 09/19/2017 [facility] DATE CREATED AUTHOR AUTHOR'S ORGANIZ ATION 07/16/2021 [facility] dical Specialist DATE CREATED AUTHOR AUTHOR'S ORGANIZ ATION 01/19/2022 [facility] DATE CREATED AUTHOR AUTHOR'S ORGANIZ ATION 07/03/2022 [facility] DATE CREATED AUTHOR AUTHOR'S ORGANIZ ATION 02/08/2023 [facility] DATE CREATED AUTHOR AUTHOR'S ORGANIZ ATION 05/27/2023 [facility] DATE CREATED AUTHOR AUTHOR'S ORGANIZ ATION 07/10/2023 [facility] DATE CREATED AUTHOR AUTHOR'S ORGANIZ ATION 07/19/2023 [facility] dical Specialists EPIC DATE CREATED AUTHOR AUTHOR'S ORGANIZ ATION 07/22/2023 [facility] ospital Care Teams (unrecognized sec tion and content) Chief Juvenile Probation Officer Relationship Specialty Start Date End Date Villa Nicolas MD [address] [facility] [address] [place] [address] PCP - General Internal Medicine 09/27/22 Chief Juvenile Probation Officer Relationship Specialty Start Date End Date Villa Nicolas MD [address] [facility] [address] [place] [address] PCP - General Internal Medicine 09/27/22 Chief Juvenile Probation Officer Relationship Specialty Start Date End Date Villa Nicolas MD [address] [facility] [address] [place] [address] PCP - General Internal Medicine 08/15/22 Villa Nicolas MD [address] [facility] [address] [place] [address] PCP - ACO Reach 09/04/22 Montse Celestin, RN Registered Nurse Family Medicine 04/06/23 Chief Juvenile Probation Officer Relationship Specialty Start Date End Date Villa Nicolas MD [address] [facility] [address] [place] [address] PCP - General Internal Medicine 09/27/22 Team Status: Active Member Role Status Dates PHYSICIAN NO FAMILY Primary Care Provider Active Team Status: Inactive Member Role Status Dates Aron Rain MD Attending Provider Active S tart: June 25, 2023 End: June 25, 2023 PHYSICIAN NO FAMILY Primary Care Provider Active Start: June 25, 2023 End: June 25, 2023 Team Status: Active Member Role Status Dates Villa Nicolas II MD Primary Care Provider Active Team Status: Inactive Member Role Status Dates Aron Rain MD Attending Provider Active S tart: July 06, 2023 End: July 06, 2023 Villa Nicolas II MD Primary Care Provider Active Start: July 06, 2023 End: July 06, 2023 Team Status: Inactive Member Role Status Dates Villa Nicolas II MD Primary Care Provider Active Start: July 16, 2023 End: July 16, 2023 Aron Rain MD Attending Provider Active S tart: July 16, 2023 End: July 16, 2023 Chief Juvenile Probation Officer Relationship Specialty Start Date End Date Villa Nicolas MD [address] [facility] [address] [place] [address] PCP - General Internal Medicine 09/27/22 Reason for Visit (unrecogniz ed section and content) Reason Onset Date Comments Med Refill 05/07/2023 Specialty Diagnoses / Procedures Referred By Contac t Referred To Contact Diagnoses Spinal stenosis of lumbar region, unspecified whether neurogenic claudication present Spinal stenosis of lumbar region, unspecified whether neurogenic claudication present [M48.061] Procedures NH LAMINECTOMY W/O FFD > 2 VERT SEG LUMBAR RE-DO L3-4 LUMBAR LAMINECTOMY Christian Webster MD [address] [facility] [address] [place] [address] [facility] [address] [place] [address] Referral ID Status Reason Start Date Expiration Date Visits Re quested Visits Authorized [id number] 1 1 Goals (unrecognized section and content) Goals may be documented in a n alternate sectionGoals may be documented in an alternate sectionGoals may be documented in an alternate section Scheduled Active and Recently Administ ered Medications (unrecognized section and content) Medication Order 07/19/2023 07/20/2023 07/21/2023 atorvastatin (LIPITOR) tablet 20 mg 20 mg, Oral, DAILY, First dose on Sun07/20/23 at 1645, Until Discontinued 172 (Given - Provider: Tamiko Toledo RN) 905 (Given - Provider: Tamiko Toledo RN) carbidopa-levodopa (SINEMET) 25-100 MG per tablet 1 tablet 1 tablet, Oral, 4 TIMES DAILY, First dose on Sun07/20/23 at 1700, Until Discontinued 172 (Given - Provider: Tamiko Toledo RN)2011 (Given - Provider: Milagros Mccray RN) 09 (Given - Provider: Tamiko Toledo RN)1302 (Given - Provider: Tamiko Toledo RN)1700 (Due)2100 (Due) citalopram (CELEXA) tablet 40 mg 40 mg, Oral, EVERY MORNING, First dose on 07/21/23 at 0900, Until Discontinued 905 (Given - Provid er: Tamiko Toledo RN) isosorbide mononitrate (IMDUR) extended release tablet 30 mg 30 mg, Oral, DAILY, First dose on Sun07/21/23 at 0900, Until Discontinued, Do not crush or chew. 905 (Given - Provid er: Tamiko Toledo RN) lidocaine 1% (buffered) injection 0.5 mL 0.5 mL, Infiltration, ONCE, 1 dose, On Sun07/20/23 at 1000, May use buffered lidocaine 1% 0.5ml subcutaneously for each attempt. Do not exceed 1.5mL total., STAT 1000 (Due) metFORMIN (GLUCOPHAGE-XR) extended release tablet 1,000 mg 1,000 mg, Oral, DAILY, First dose on 07/21/23 at 0900, Until Discontinued 905 (Given - Provid er: Tamiko Toledo RN) oxyBUTYnin (DITROPAN-XL) extended release tablet 10 mg 10 mg, Oral, EVERY MORNING, First dose on Sun07/21/23 at 0900, Until Discontinued, Do not crush or break. 09 (Given - Provid er: Tamiko Toledo RN) pregabalin (LYRICA) capsule 200 mg 200 mg, Oral, 3 times daily, First dose on Sun07/20/23 at 1645, Until Discontinued 172 (Given - Provider: Tamiko Toledo RN)2012 (Given - Provider: Milagros Mccray RN) 09 (Given - Provider: Tamiko Toledo RN)1500 (Due)2100 (Due) primidone (MYSOLINE) tablet 250 mg 250 mg, Oral, NIGHTLY, First dose on Sun07/20/23 at 2100, Until Discontinued 2011 (Given - Provider: Milagros Mccray RN) 2100 (Due) rOPINIRole (REQUIP) tablet 0.25 mg 0.25 mg, Oral, 4 TIMES DAILY, First dose on Sun07/20/23 at 1700, Until Discontinued 173 (Given - Provider: Tamiko Toledo RN)2012 (Given - Provider: Milagros Mccray RN) 0906 (Given - Provider: Tamiko Toledo RN)1301 (Given - Provider: Tamiko Toledo RN)1700 (Due)2100 (Due) sodium chloride flush 0.9 % injection 5-40 mL 5-40 mL, IntraVENous, EVERY 12 HOURS SCHEDULED (2 times per day), First dose on Sun07/20/23 at 2100, Until Discontinued, For Line Patency: Peripheral IV = 5 mL; Midline or Central Line = 10 mL/lumen. If following IV push medication, administer flush at same rate as the IV push. Flush volume is determined by type of infusion therapy being given. For non-viscous solutions use: Peripheral IV = 5 mL Midline or Central Line = 10 mL/lumen For viscous solutions (i.e. blood components, parenteral nutrition, contrast media, or after obtaining blood sample) use: Peripheral IV = 10 mL Midline or Central Line = 20 mL/lumen, Post-op 2016 (Not Given - Provider: Milagros Mccray RN - Reason: IV Fluid Infusing) 0911 (Not Given - Provider: Tamiko Toledo RN - Reason: IV Fluid Infusing)2100 (Due) tiZANidine (ZANAFLEX) tablet 4 mg 4 mg, Oral, 4 TIMES DAILY, First dose on Sun07/20/23 at 1700, Until Discontinued 1727 (Given - Provider: Tamiko Toledo RN)2011 (Given - Provider: Milagros Mccray RN) 0906 (Given - Provider: Tamiko Toledo RN)1254 (Not Given - Provider: Tamiko Toledo RN - Reason: Patient/family refused)1700 (Due)2100 (Due) vancomycin 1000 mg IVPB in 250 mL NS addavial (COMPLETED) 1,000 mg, IntraVENous, EVERY 12 HOURS, 1 dose, First dose on Sun07/21/23 at 0100, Antimicrobial Indications: Surgical Prophylaxis, Post-op 0128 (New Bag - Provider: Milagros Mccray RN)0228 (Stopped - Provider: Milagros Mccray RN) vitamin B-12 (CYANOCOBALAMIN) tablet 1,000 mcg 1,000 mcg, Oral, DAILY, First dose on Sun07/20/23 at 1645, Until Discontinued 1727 (Given - Provider: Tamiko Toledo RN) 0907 (Given - Provider: Tamiko Toledo RN) Continuous Medication Order 07/19/2023 07/20/2023 07/21/2023 0.9 % sodium chloride infusion IntraVENous, at 100 mL/hr, CONTINUOUS, Starting on Sun07/20/23 at 1645, heplock with good po intake, Post-op 1648 (New Bag - Provider: Tamiko Toledo RN) 0126 (Rate/Dose Verify - Provider: Milagros Mccray RN)0725 (Rate/Dose Verify - Provider: Milagros Mccray RN)0910 (Stopped - Provider: Tamiko Toledo RN) lactated ringers IV soln infusion (CANCELED) IntraVENous, at 100 mL/hr, CONTINUOUS, Starting on Sun07/20/23 at 1000, Pre-op (day of surgery) 1005 (New Bag - Provider: Laura Harris RN)1253 (NoRateChange - Provider: Felicia K Herbert, PIPE LINE REPAIRER - LUNCH COOK) 1210 (Stopped - Provider: Tamiko Toledo RN - Comment: to print avs) PRN Medication Order 07/19/2023 07/20/2023 07/21/2023 0.9 % sodium chloride infusion IntraVENous, at 5-250 mL/hr, PRN, if patient receiving piggyback infusions and maintenance fluids are not ordered OR KVO fluids to protect IV site / prevent frequent line interruptions/ long duration, Starting on Sun07/20/23 at 1623, For piggyback infusion, administer at same rate as piggyback for a total of 25 mL. Enter 25 mL into dose field and piggyback rate into rate field of order. If piggyback is infusing at a rate less than 100 mL/hr, enter 25 mL into dose field and 100 mL/hr into rate field of order. For KVO fluids, enter rate of 20 mL/hr or less into rate field of order., Post-op acetaminophen (TYLENOL) tablet 650 mg 650 mg, Oral, EVERY 4 HOURS PRN, Starting on Sun07/20/23 at 1623, Until Discontinued, Other, Pain (1-10), Give in addition to any other pain medication ordered at same time for any pain indication., Post-op gelatin adsorbable (GELFOAM) sponge (CANCELED) PRN, Starting on Sun07/20/23 at 1328, Intra-op 1328 (Given - Provider: Christian Webster MD) HYDROcodone-acetaminophen (NORCO) 5-325 MG per tablet 1 tablet 1 tablet, Oral, EVERY 4 HOURS PRN, Starting on Sun07/20/23 at 1623, Until Discontinued, Pain Moderate (4-6) 0908 (Given - Provid er: Tamiko Toledo RN) HYDROcodone-acetaminophen (NORCO) 5-325 MG per tablet 2 tablet 2 tablet, Oral, EVERY 4 HOURS PRN, Starting on Sun07/20/23 at 1623, Until Discontinued, Pain Severe (7-10) 2130 (Given - Provider: Milagros Mccray RN) lidocaine-EPINEPHrine 1 %-1:[id number] injection (CANCELED) PRN, Starting on Sun07/20/23 at 1328, Until Sun07/20/23 at 1435, Intra-op 1328 (Given - Provider: Christian Webster MD) morphine (PF) injection 2 mg(Linked Group 1) 2 mg, IntraVENous, EVERY 2 HOURS PRN, Starting on Sun07/20/23 at 1623, Until Discontinued, Pain Moderate (4-6), If oral and IV narcotics ordered, use oral first and only use IV if oral is ineffective or cannot take oral. Do Not give oral and IV within 1 hour of each other unless specifically ordered., Post-op morphine sulfate (PF) injection 4 mg(Linked Group 1) 4 mg, IntraVENous, EVERY 2 HOURS PRN, Starting on Sun07/20/23 at 1623, Until Discontinued, Pain Severe (7-10), If oral and IV narcotics ordered, use oral first and only use IV if oral is ineffective or cannot take oral. Do Not give oral and IV within 1 hour of each other unless specifically ordered., Post-op nitroGLYCERIN (NITROSTAT) SL tablet 0.4 mg 0.4 mg, SubLINGual, EVERY 5 MIN PRN, 3 doses, Starting on Sun07/20/23 at 1623, Until Discontinued, Chest pain, Place 1 tablet under tongue upon chest pain, wait 5 minutes and may repeat up to 3 doses in 15 minutes. Do not crush or break. ondansetron (ZOFRAN) injection 4 mg(Linked Group 2) 4 mg, IntraVENous, EVERY 6 HOURS PRN, Starting on Sun07/20/23 at 1623, Until Discontinued, Nausea, Vomiting, Administer if oral route cannot be used., Post-op ondansetron (ZOFRAN-ODT) disintegrating tablet 4 mg(Linked Group 2) 4 mg, Oral, EVERY 8 HOURS PRN, Starting on Sun07/20/23 at 1623, Until Discontinued, Nausea, Vomiting, Post-op sod chloride IRR soln 0.9 % 1,000 mL with polymyxin B 500,000 Units (CANCELED) PRN, Starting on Sun07/20/23 at 1328, Intra-op 1328 (Given - Provider: Christian Webster MD) sodium chloride flush 0.9 % injection 5-40 mL 5-40 mL, IntraVENous, PRN, Starting on Sun07/20/23 at 1623, Until Discontinued, Line Care, After every IV line use, For Line Patency: Peripheral IV = 5 mL; Midline or Central Line = 10 mL/lumen. If following IV push medication, administer flush at same rate as the IV push. Flush volume is determined by type of infusion therapy being given. For non-viscous solutions use: Peripheral IV = 5 mL Midline or Central Line = 10 mL/lumen For viscous solutions (i.e. blood components, parenteral nutrition, contrast media, or after obtaining blood sample) use: Peripheral IV = 10 mL Midline or Central Line = 20 mL/lumen, Post-op surgiflo hemostatic matrix (CANCELED) PRN, Starting on Sun07/20/23 at 1329, Intra-op 1329 (Given - Provider: Christian Webster MD) thrombin external solution 5000 units (CANCELED) PRN, Starting on Sun07/20/23 at 1329, Intra-op 1329 (Given - Provider: Christian Webster MD) Linked Groups Order Group 1: morphine (PF) injection 2 mgJump to med 2 mg, IntraVENous, EVERY 2 HOURS PRN, Starting on Sun07/20/23 at 1623, Until Discontinued, Pain Moderate (4-6)
If oral and IV narcotics ordered, use oral first and only use IV if oral is ineffective or cannot take oral. Do Not give oral and IV within 1 hour of each other unless specifically ordered.
Post-op Or morphine sulfate (PF) injection 4 mgJump to med 4 mg, IntraVENous, EVERY 2 HOURS PRN, Starting on Sun07/20/23 at 1623, Until Discontinued, Pain Severe (7-10)
If oral and IV narcotics ordered, use oral first and only use IV if oral is ineffective or cannot take oral. Do Not give oral and IV within 1 hour of each other unless specifically ordered.
Post-op Group 2: ondansetron (ZOFRAN-ODT) disintegrating tablet 4 mgJump to med 4 mg, Oral, EVERY 8 HOURS PRN, Starting on Sun07/20/23 at 1623, Until Discontinued, Nausea, Vomiting, Post-op Or ondansetron (ZOFRAN) injection 4 mgJump to med 4 mg, IntraVENous, EVERY 6 HOURS PRN, Starting on Sun07/20/23 at 1623, Until Discontinued, Nausea, Vomiting
Administer if oral route cannot be used.
Post-op FOR RECORDS PERTAINING TO PATIENTS WHO ARE [...] BE BASED ON THE PRIMARY CLINICAL RECORDS. [facility]. provides no warranty or guarantee of the accuracy or completeness of information in this document.
[2023-07-24 02:39] LABS: Basophils Percent Auto 0.3 % (0.2-2.0); Eosinophils Absolute Auto 0.1 10^3/uL (0.0-0.7); Eosinophils Percent Auto 0.4 % (0.9-7.0); Hematocrit 51.2 % (36.0-48.0); Hemoglobin 16.7 g/dL (12.0-16.0); Immature Granulocytes Abs Auto 0.06 10^3/uL (0.00-0.03); Immature Granulocytes Pct Auto 0.4 % (0.0-0.5); Lymphocytes Absolute Auto 3.5 10^3/uL (1.2-3.8); Lymphocytes Percent Auto 24.4 % (20.5-60.0); Mean Corpuscular HGB Conc 32.6 g/dL (29.9-35.2); Mean Corpuscular Hemoglobin 32.7 pg (26.7-34.0); Mean Corpuscular Volume 100.2 fL (81.0-99.0); Mean Platelet Volume 11.1 fL (9.5-13.5); Monocytes Absolute Auto 0.5 10^3/uL (0.3-0.8); Monocytes Percent Auto 3.5 % (1.7-12.0); Neutrophils Absolute Auto 10.2 10^3/uL (1.4-6.5); Platelet Count 220 10^3/uL (150-450); Red Blood Count 5.11 10^6/uL (4.20-5.40); Red Cell Distribution Width 14.1 % (11.0-15.0); White Blood Count 14.4 10^3/uL (4.0-11.0)
[2023-07-24] MEDS: IPRATROPIUM/ALBUTEROL SULFATE 3 ML AMPUL.NEB IH ×3 (02:44→22:40)
--- NOTE | 2023-07-24 02:48 | RESP.RT ---
Pt was taken off 100% nonrebreather and placed on Vapotherm 40L Fi02 100% and Sp02 increased to 97%.
--- NOTE | 2023-07-24 02:51 | CT_ITS ---
[address] [address] Patient Name: JAXSON QUEZADA MRN: [id number] date: 1950 Sex: F Assigned Patient Location: ER Current Patient Location: ER Accession/Order Number: [id number] Exam Date: 07/24/2023 03:20 Report Date: 07/24/2023 04:33 At the request of: OLIVER SILVER Procedure: CT angio chest EXAMINATION: CT angio chest, CT abdomen pelvis w con HISTORY: hypoxia, r/o PE , hypertension, weakness COMPARISON: CTA chest 02/07/2017, CTA abdomen pelvis with lower extremity runoff 01/16/2022 TECHNIQUE: After obtaining the patient's consent, CT images of the chest, abdomen and pelvis were obtained with non-ionic intravenous contrast material. Axial, Coronal, and Sagittal images. Multi-planar reformatted/3-D images were created to optimize visualization of vascular anatomy. Dose reduction techniques were achieved by using automated exposure control and/or adjustment of mA and/or kV according to patient size and/or use of iterative reconstruction technique. FINDINGS: PULM VASC: No pulmonary embolism or abnormal opacity. LUNGS: Mild haziness and stranding within the mid and lower lung regions, coarsening of interstitial markings, and several stable small nodules, largest is within right middle lobe, 7 mm. PLEURA: No mass, effusion, or pneumothorax. KAREN: No mass or adenopathy. MEDIASTINUM: No mass or adenopathy. CARDIAC: No enlargement, pericardial effusion, or pericardial thickening. CHEST WALL: No mass or axillary adenopathy. LIVER: No enlargement, atrophy, abnormal density, or significant focal lesion. BILIARY: Cholecystectomy with postcholecystectomy dilation of the biliary system; no appreciable mass or stones. PANCREAS: No lesion, fluid collection, ductal dilatation, or atrophy. SPLEEN: No enlargement or focal lesion. ADRENALS: Stable left adreniform hypertrophy. KIDNEYS: Small bilateral renal cysts. No mass, obstruction, or calcification. BOWEL/MESENTERY: No visible mass, obstruction, or bowel wall thickening. Normal appendix. AORTA: Marked atherosclerotic disease. No aneurysm. RETROPERITONEUM: No mass or adenopathy. LYMPHNODES: No pelvic adenopathy. BLADDER: No stones or focal wall thickening. PELVIC ORGANS: Appropriate for age. ABDOMINAL WALL: No mass or hernia. BONES: Mechanical fusion L4-L5-S1 with posterior decompression and intervertebral disc spacers. OTHER: Small to moderate free fluid within pelvis. No free air. CT/CT angio chest IMPRESSION: 1. No pulmonary embolism. Mild bilateral pulmonary infiltrates; pulmonary edema versus infectious etiology versus atelectasis. 2. Stable small pulmonary nodules since at least 2017 which favors benign etiology. 3. Small moderate free fluid within pelvis; nonspecific. 4. No acute or specific abdominal or pelvic findings to account for patient's symptoms. Chronic findings detailed above. Electronically authenticated by: BLAYNE CALDERÓN Date: 07/24/2023 04:33
[2023-07-24 03:02] LABS: INR 1.04
[2023-07-24 03:12] LABS: Alanine Aminotransferase 64 U/L (14-59); Albumin Globulin Ratio 0.8; Alkaline Phosphatase 229 U/L (46-116); Anion Gap 16.4; BUN Creatinine Ratio 25.6; Bilirubin Total 0.5 mg/dL (0.2-1.0); Carbon Dioxide 24.9 mmol/L (21.0-32.0); Chloride 106 mmol/L (98-107); Estimated GFR (African America >60 (>=60); Estimated GFR (Non-African Ame >60 (>=60); Globulin 3.6 g/dL; Glucose 220 mg/dL (74-106); Potassium 3.3 mmol/L (3.5-5.1); Sodium 144 mmol/L (136-145); Total Protein 6.6 g/dL (6.4-8.2)
--- NOTE | 2023-07-24 03:20 | CT_ITS ---
[address] [address] Patient Name: JAXSON QUEZADA MRN: [id number] date: 1950 Sex: F Assigned Patient Location: ER Current Patient Location: ER Accession/Order Number: [id number] Exam Date: 07/24/2023 03:20 Report Date: 07/24/2023 04:33 At the request of: OLIVER SILVER Procedure: CT abdomen pelvis w con EXAMINATION: CT angio chest, CT abdomen pelvis w con HISTORY: hypoxia, r/o PE , hypertension, weakness COMPARISON: CTA chest 02/07/2017, CTA abdomen pelvis with lower extremity runoff 01/16/2022 TECHNIQUE: After obtaining the patient's consent, CT images of the chest, abdomen and pelvis were obtained with non-ionic intravenous contrast material. Axial, Coronal, and Sagittal images. Multi-planar reformatted/3-D images were created to optimize visualization of vascular anatomy. Dose reduction techniques were achieved by using automated exposure control and/or adjustment of mA and/or kV according to patient size and/or use of iterative reconstruction technique. FINDINGS: PULM VASC: No pulmonary embolism or abnormal opacity. LUNGS: Mild haziness and stranding within the mid and lower lung regions, coarsening of interstitial markings, and several stable small nodules, largest is within right middle lobe, 7 mm. PLEURA: No mass, effusion, or pneumothorax. KAREN: No mass or adenopathy. MEDIASTINUM: No mass or adenopathy. CARDIAC: No enlargement, pericardial effusion, or pericardial thickening. CHEST WALL: No mass or axillary adenopathy. LIVER: No enlargement, atrophy, abnormal density, or significant focal lesion. BILIARY: Cholecystectomy with postcholecystectomy dilation of the biliary system; no appreciable mass or stones. PANCREAS: No lesion, fluid collection, ductal dilatation, or atrophy. SPLEEN: No enlargement or focal lesion. ADRENALS: Stable left adreniform hypertrophy. KIDNEYS: Small bilateral renal cysts. No mass, obstruction, or calcification. BOWEL/MESENTERY: No visible mass, obstruction, or bowel wall thickening. Normal appendix. AORTA: Marked atherosclerotic disease. No aneurysm. RETROPERITONEUM: No mass or adenopathy. LYMPHNODES: No pelvic adenopathy. BLADDER: No stones or focal wall thickening. PELVIC ORGANS: Appropriate for age. ABDOMINAL WALL: No mass or hernia. BONES: Mechanical fusion L4-L5-S1 with posterior decompression and intervertebral disc spacers. OTHER: Small to moderate free fluid within pelvis. No free air. CT/CT abdomen pelvis w con IMPRESSION: 1. No pulmonary embolism. Mild bilateral pulmonary infiltrates; pulmonary edema versus infectious etiology versus atelectasis. 2. Stable small pulmonary nodules since at least 2017 which favors benign etiology. 3. Small moderate free fluid within pelvis; nonspecific. 4. No acute or specific abdominal or pelvic findings to account for patient's symptoms. Chronic findings detailed above. Electronically authenticated by: BLAYNE CALDERÓN Date: 07/24/2023 04:33
[2023-07-24 03:21] LABS: Aspartate Amino Transferase 1204 U/L (15-37); Troponin I High Sensitivity 155.4 pg/mL (4.0-51.3)
[2023-07-24 03:23] LABS: Adenovirus NOT DETECTED (NOT DETECTE); Bordetella parapertussis NOT DETECTED (NOT DETECTE); Coronavirus 229E NOT DETECTED (NOT DETECTE); Coronavirus HKU1 NOT DETECTED (NOT DETECTE); Coronavirus NL63 NOT DETECTED (NOT DETECTE); Coronavirus OC43 NOT DETECTED (NOT DETECTE); Human Metapneumovirus NOT DETECTED (NOT DETECTE); Human Rhinovirus/Enterovirus NOT DETECTED (NOT DETECTE); Influenza A NOT DETECTED (NOT DETECTE); Influenza B NOT DETECTED (NOT DETECTE); Mycoplasma pneumoniae NOT DETECTED (NOT DETECTE); Parainfluenza Virus 1 NOT DETECTED (NOT DETECTE); Parainfluenza Virus 2 NOT DETECTED (NOT DETECTE); Parainfluenza Virus 3 NOT DETECTED (NOT DETECTE); Parainfluenza Virus 4 NOT DETECTED (NOT DETECTE); Respiratory Syncytial Virus NOT DETECTED (NOT DETECTE); SARS-CoV-2 NOT DETECTED (NOT DETECTE)
[2023-07-24] MEDS: 0.9 % SODIUM CHLORIDE 1,000 ML 999 ML IV (03:30)
--- NOTE | 2023-07-24 04:58 | ED.GENADUL1 ---
HPI HPI - General Adult General Chief complaint: Dizziness Stated complaint: WEAKNESS Time Seen by Provider: 07/24/23 02:00 Source: patient Mode of arrival: ambulance History of Present Illness HPI narrative: 72-year-old female to the emergency department with chief complaint of feeling unwell and dizziness. Patient reports that she had an L3-L4 Laminectomy on July 19 at [facility]. She reports that she was discharged home two days ago and has been doing poorly since. Patient reports that tonight she felt severely lightheaded whenever she would get up. She could not ambulate prodding her to call 911. She reports that she has had a cough and felt short of breath. She denies any fever, sweats, chills. She denies any nausea, vomiting, abdominal pain. She denies any chest pain. Patient reports that she has a history of coronary artery disease status post CABG. She is a daily smoker. Related Data Home Medications ?Medication ?Instructions ?Recorded ?Confirmed atorvastatin 40 mg tablet 40 mg PO BEDTIME 03/29/23 07/24/23 carbidopa 25 mg-levodopa 100 mg 1 tab PO QID 03/29/23 07/24/23 tablet citalopram 40 mg tablet 40 mg PO QAM 03/29/23 07/24/23 clopidogrel 75 mg tablet 75 mg PO DAILY 03/29/23 07/24/23 hydrocodone 10 mg-acetaminophen 1 tab PO Q8H PRN pain 03/29/23 07/24/23 325 mg tablet isosorbide mononitrate 30 mg 30 mg PO DAILY 03/29/23 07/24/23 tablet,extended release 24 hr metformin 750 mg tablet,extended 750 mg PO QDAY 03/29/23 07/24/23 release 24 hr oxybutynin chloride 10 mg 10 mg PO .QD 03/29/23 07/24/23 tablet,extended release 24 hr pregabalin 200 mg capsule 200 mg PO TID 03/29/23 07/24/23 primidone 50 mg tablet 50 mg PO QID 03/29/23 07/24/23 ropinirole 0.25 mg tablet 0.25 mg PO QID 03/29/23 03/29/23 tizanidine 4 mg tablet 4 mg PO TID PRN muscle spasticity 03/29/23 07/24/23 pregabalin 150 mg capsule 150 mg PO Q12H 07/24/23 07/24/23 Allergies Allergy/AdvReac Type Severity Reaction Status Date / Time No Known Drug Allergies Allergy Verified 03/29/23 09:44 Opioid HPI Opioid Management Most Recent Opioid Data: Last Pain Scale 3 04/03/23 14:58 Review of Systems ROS Status of ROS 10 or more systems reviewed and unremarkable except as noted in history and below [facility] Medical History (Updated 07/24/23 @ 05:09 by Carlos Reed MD) Type 2 diabetes mellitus with hyperglycemia ?E11.65 - Type 2 diabetes mellitus with hyperglycemia (ICD-10) Acute hypoxic respiratory failure ?J96.01 - Acute respiratory failure with hypoxia (ICD-10) CAD (coronary artery disease) ?I25.10 - Atherosclerotic heart disease of [place] coronary artery without angina pectoris (ICD-10) Multifocal pneumonia ?J18.9 - Pneumonia, unspecified organism (ICD-10) HTN (hypertension) ?I10 - Essential (primary) hypertension (ICD-10) Parkinson disease ?G20.A1 - Parkinson's disease without dyskinesia, without mention of fluctuations (ICD-10) Acute respiratory failure ?J96.00 - Acute respiratory failure, unspecified whether with hypoxia or hypercapnia (ICD-10) Dehydration ?E86.0 - Dehydration (ICD-10) Myocardial infarction ?I21.9 - Acute myocardial infarction, unspecified (ICD-10) Tobacco dependence ?F17.200 - Nicotine dependence, unspecified, uncomplicated (ICD-10) OAB (overactive bladder) ?N32.81 - Overactive bladder (ICD-10) Hyperlipidemia ?E78.5 - Hyperlipidemia, unspecified (ICD-10) DM2 (diabetes mellitus, type 2) ?E11.9 - Type 2 diabetes mellitus without complications (ICD-10) Surgical History (Updated 03/29/23 @ 15:26 by Luna Ying) History of cholecystectomy ?Z90.49 - Acquired absence of other specified parts of digestive tract (ICD-10) Previous back surgery ?Z98.890 - Other specified postprocedural states (ICD-10) S/P triple vessel bypass ?Z95.1 - Presence of aortocoronary bypass graft (ICD-10) Family History (Updated 03/29/23 @ 11:57 by Luna Ying) Father Family history of CHF (congestive heart failure) Family history of cancer Mother Family history of CHF (congestive heart failure) Brother Family history of CHF (congestive heart failure) Social History (Updated 03/29/23 @ 11:54 by Luna Ying) Within the past year, how often did you have a drink containing alcohol: never Score interpretation: A score less than 3 is consistent with normal alcohol consumption. 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 Highest level of school completed/degree received: some college, no degree Are you now , , , , never or living with a partner: In a typical week, how many times do you talk on the telephone with family, friends, or neighbors: 3 or more times per week How often do you get together with friends or relatives: 3 or more times per week How often do you attend scientologist or amish services: never Do you belong to any clubs or organizations such as scientologist groups unions, [employer] or athletic groups, or school groups: no Total score: 2 Score interpretation: A score of greater than or equal to 2 indicates the lowest level of social isolation. Little interest or pleasure in doing things: not at all Feeling down, depressed, or hopeless: not at all Feel stressed/tense/nervous/anxious/difficulty sleeping: only a little Do you think of yourself as: straight/heterosexual Gender Identity: female Exam Narrative Exam Narrative: VITALS: I have reviewed the triage vital signs. GENERAL: Chronically ill-appearing elderly female in respiratory distress NEURO: Alert and oriented x3. Moves all extremities. Motor strength and sensation are grossly intact in all extremities. Face is symmetric and expressive. Tremor in all extremities. EYES: PERRL. No scleral icterus or conjunctival injection. No discharge. HENT: Normocephalic, atraumatic. Hearing is grossly intact. Nares grossly patent and without discharge. Mucous membranes moist. NECK: No JVD. Patient moves neck without restriction. CARDIO: Rhythm regular. Normal rate. No murmur, rub, or gallop. Pulses equal bilaterally in the upper and lower extremity. No lower extremity edema. PULM: Diminished at the bases bilaterally. Increased work of breathing. GI/: Abdomen is soft and non-tender. Normoactive bowel sounds. EXTREMITIES: Symmetric muscle bulk. No joint swelling. No clubbing, cyanosis, or deformity. SKIN: Warm and dry. Normal turgor. Urticaria. PSYCH: Anxious Constitutional Vital Signs, click to edit/add: Last Vital Signs Temp 98.0 F 07/24/23 06:02 Pulse 88 07/24/23 06:46 Resp 20 07/24/23 06:46 BP 136/72 07/24/23 06:46 Pulse Ox 100 07/24/23 06:46 O2 Del Method Vapotherm 07/24/23 04:53 O2 Flow Rate 40 07/24/23 05:15 FiO2 75 07/24/23 05:15 Course Vital Signs Vital signs: Vital Signs Temperature 97.5 F L 07/24/23 02:00 Pulse Rate 95 H 07/24/23 02:00 Respiratory Rate 22 H 07/24/23 02:00 Blood Pressure 91/54 07/24/23 02:00 Pulse Oximetry 82 L 07/24/23 02:00 Oxygen Delivery Method Room Air 07/24/23 02:00 Temperature 98.0 F 07/24/23 06:02 Pulse Rate 88 07/24/23 06:46 Respiratory Rate 20 07/24/23 06:46 Blood Pressure 136/72 07/24/23 06:46 Pulse Oximetry 100 07/24/23 06:46 Oxygen Delivery Method Vapotherm 07/24/23 04:53 Oxygen Delivery Flow Rate 40 07/24/23 05:15 Fraction of Inspired Oxygen 75 07/24/23 05:15 Medical Decision Making [facility] Narrative Medical decision making narrative: 72-year-old female to the emergency department with chief complaint of feeling unwell, dizziness, weakness. She is hypotensive and profoundly hypoxic upon arrival. Her surgical site on her back is observed, no evidence of infection is well approximated with rosa. She reports a history of smoking, no history of chronic obstructive pulmonary disease or asthma. She reports a history of coronary artery disease status post CABG but no history of congestive heart failure. She just had spinal surgery and [facility]. Patient arrived on nonrebreather. Her lungs are clear except for being diminished at the bases. Breathing treatment was ordered which is ineffective in raising her pulse ox. She has no clinical signs or symptoms of volume overloaded state. Concern for pulmonary embolism given her recent surgery and clear lungs without a proportion hypoxia. Chest x-ray was performed and is unremarkable by my read. Laboratory reviewed and noted. She does have a mild leukocytosis. Her troponin is significantly elevated at 155.4. Her pro-BNP is mildly elevated at fifteen hundred which appears consistent with past hospitalizations/ not exacerbation. Strangely her AST is elevated at 1204 with a near-normal ALT. She has a normal bilirubin level. Respiratory test was negative. CT angiogram of the chest for pulmonary embolism was performed and shows no definitive evidence of pulmonary embolism. She does have some patchy bilateral infiltrates. Given her leukocytosis, cough, acute hypoxemic respiratory failure we will treat her for pneumonia. Her risk factors are those of hospital-acquired pneumonia given her recent intubation and ventilator during her surgical procedure. Vancomycin and Zosyn are ordered. Patient's pressure status stabilized on Vapotherm. She remains at 40 L/m, 75%. No baseline O2 requirement. Given her elevated troponin, Elevated liver enzymes, rapid progression to acute hypoxemic respiratory failure requiring noninvasive. I believe she is best served by tertiary care as she will require multiple consult services. I recommended the patient that she return to [facility] where she recently had her surgery and she declines. She reports that she would like to be transferred to [facility]. Care was signed out to Dr. Bourgeois awaiting transfer. Medical Records Medical records reviewed: Yes I reviewed the patient's medical records Lab Data Lab results reviewed: Yes I reviewed the patient's lab results Labs: Lab Results 07/24/23 07/24/23 07/24/23 Range/Units 02:20 02:39 05:23 WBC 14.4 H (4.0-11.0) 10^3/uL RBC 5.11 (4.20-5.40) 10^6/uL Hgb 16.7 H (12.0-16.0) g/dL Hct 51.2 H (36.0-48.0) % MCV 100.2 H (81.0-99.0) fL MCH 32.7 (26.7-34.0) pg MCHC 32.6 (29.9-35.2) g/dL RDW 14.1 (11.0-15.0) % Plt Count 220 (150-450) 10^3/uL MPV 11.1 (9.5-13.5) fL Neut % (Auto) 71.0 (43.0-75.0) % Lymph % (Auto) 24.4 (20.5-60.0) % Rogers % (Auto) 3.5 (1.7-12.0) % Eos % (Auto) 0.4 L (0.9-7.0) % Baso % (Auto) 0.3 (0.2-2.0) % Neut # (Auto) 10.2 H (1.4-6.5) 10^3/uL Lymph # (Auto) 3.5 (1.2-3.8) 10^3/uL Rogers # (Auto) 0.5 (0.3-0.8) 10^3/uL Eos # (Auto) 0.1 (0.0-0.7) 10^3/uL Baso # (Auto) 0.0 (0.0-0.1) 10^3/uL Abs Immat Gran (auto) 0.06 H (0.00-0.03) 10^3/uL Imm/Tot Granulo (auto) 0.4 (0.0-0.5) % PT 11.0 (9.0-11.6) sec INR 1.04 Sodium 144 (136-145) mmol/L Potassium 3.3 L (3.5-5.1) mmol/L Chloride 106 (98-107) mmol/L Carbon Dioxide 24.9 (21.0-32.0) mmol/L Anion Gap 16.4 BUN 20.0 H (7.0-18.0) mg/dL Creatinine 0.78 (0.55-1.02) mg/dL Est GFR ( Amer) >60 (>=60) Est GFR (Non-Af Amer) >60 (>=60) BUN/Creatinine Ratio 25.6 Glucose 220 H (74-106) mg/dL Lactate 3.0 H* 1.7 (0.4-2.0) mmol/L Calcium 9.0 (8.5-10.1) mg/dL Total Bilirubin 0.5 (0.2-1.0) mg/dL AST 1204 H* (15-37) U/L ALT 64 H (14-59) U/L Alkaline Phosphatase 229 H (46-116) U/L Troponin I High Sens 155.4 H* (4.0-51.3) pg/mL NT-Pro-B Natriuret Pep 1559.0 H* (<=900.0) pg/mL Total Protein 6.6 (6.4-8.2) g/dL Albumin 3.0 L (3.4-5.0) g/dL Globulin 3.6 g/dL Albumin/Globulin Ratio 0.8 Procalcitonin 0.07 (0.00-0.50) ng/mL Adenovirus (PCR) Not detected (NOT DETECTE) B. pertussis DNA (PCR) Not detected (NOT DETECTE) B.parapertussis DNA PCR Not detected (NOT DETECTE) C. pneumoniae DNA (PCR) Not detected (NOT DETECTE) Coronavirus Type OC43 Not detected (NOT DETECTE) Coronavirus Type HKU1 Not detected (NOT DETECTE) Coronavirus Type 229E Not detected (NOT DETECTE) Coronavirus Type NL63 Not detected (NOT DETECTE) Human Metapneumovir PCR Not detected (NOT DETECTE) Influenza Type A (PCR) Not detected (NOT DETECTE) Influenza Type B (PCR) Not detected (NOT DETECTE) M. pneumoniae (PCR) Not detected (NOT DETECTE) Parainfluenza PCR Not detected (NOT DETECTE) Parainfluenza 2 (PCR) Not detected (NOT DETECTE) Parainfluenza 3 (PCR) Not detected (NOT DETECTE) Parainfluenza 4 (PCR) Not detected (NOT DETECTE) RSV (RT-PCR) Not detected (NOT DETECTE) Entero/Rhino (PCR) Not detected (NOT DETECTE) SARS-CoV-2 (PCR) Not detected (NOT DETECTE) 07/24/23 Range/Units 05:38 WBC (4.0-11.0) 10^3/uL RBC (4.20-5.40) 10^6/uL Hgb (12.0-16.0) g/dL Hct (36.0-48.0) % MCV (81.0-99.0) fL MCH (26.7-34.0) pg MCHC (29.9-35.2) g/dL RDW (11.0-15.0) % Plt Count (150-450) 10^3/uL MPV (9.5-13.5) fL Neut % (Auto) (43.0-75.0) % Lymph % (Auto) (20.5-60.0) % Rogers % (Auto) (1.7-12.0) % Eos % (Auto) (0.9-7.0) % Baso % (Auto) (0.2-2.0) % Neut # (Auto) (1.4-6.5) 10^3/uL Lymph # (Auto) (1.2-3.8) 10^3/uL Rogers # (Auto) (0.3-0.8) 10^3/uL Eos # (Auto) (0.0-0.7) 10^3/uL Baso # (Auto) (0.0-0.1) 10^3/uL Abs Immat Gran (auto) (0.00-0.03) 10^3/uL Imm/Tot Granulo (auto) (0.0-0.5) % PT (9.0-11.6) sec INR Sodium (136-145) mmol/L Potassium (3.5-5.1) mmol/L Chloride (98-107) mmol/L Carbon Dioxide (21.0-32.0) mmol/L Anion Gap BUN (7.0-18.0) mg/dL Creatinine (0.55-1.02) mg/dL Est GFR ( Amer) (>=60) Est GFR (Non-Af Amer) (>=60) BUN/Creatinine Ratio Glucose (74-106) mg/dL Lactate (0.4-2.0) mmol/L Calcium (8.5-10.1) mg/dL Total Bilirubin (0.2-1.0) mg/dL AST (15-37) U/L ALT (14-59) U/L Alkaline Phosphatase (46-116) U/L Troponin I High Sens 151.9 H* (4.0-51.3) pg/mL NT-Pro-B Natriuret Pep (<=900.0) pg/mL Total Protein (6.4-8.2) g/dL Albumin (3.4-5.0) g/dL Globulin g/dL Albumin/Globulin Ratio Procalcitonin (0.00-0.50) ng/mL Adenovirus (PCR) (NOT DETECTE) B. pertussis DNA (PCR) (NOT DETECTE) B.parapertussis DNA PCR (NOT DETECTE) C. pneumoniae DNA (PCR) (NOT DETECTE) Coronavirus Type OC43 (NOT DETECTE) Coronavirus Type HKU1 (NOT DETECTE) Coronavirus Type 229E (NOT DETECTE) Coronavirus Type NL63 (NOT DETECTE) Human Metapneumovir PCR (NOT DETECTE) Influenza Type A (PCR) (NOT DETECTE) Influenza Type B (PCR) (NOT DETECTE) M. pneumoniae (PCR) (NOT DETECTE) Parainfluenza PCR (NOT DETECTE) Parainfluenza 2 (PCR) (NOT DETECTE) Parainfluenza 3 (PCR) (NOT DETECTE) Parainfluenza 4 (PCR) (NOT DETECTE) RSV (RT-PCR) (NOT DETECTE) Entero/Rhino (PCR) (NOT DETECTE) SARS-CoV-2 (PCR) (NOT DETECTE) Imaging Data CT scan - chest: Attestation: I have reviewed the pertinent imaging results. Radiologist's impression: ITS Impressions Chest X-Ray 07/24/23 02:15 IMPRESSION: 1. Mild bibasilar infiltrates versus atelectasis; less than previously seen. 2. Stable small right lung base nodules; nonspecific. Electronically authenticated by: BLAYNE CALDERÓN Date: 07/24/2023 04:11 Chest CTA 07/24/23 02:51 IMPRESSION: 1. No pulmonary embolism. Mild bilateral pulmonary infiltrates; pulmonary edema versus infectious etiology versus atelectasis. 2. Stable small pulmonary nodules since at least 2017 which favors benign etiology. 3. Small moderate free fluid within pelvis; nonspecific. 4. No acute or specific abdominal or pelvic findings to account for patient's symptoms. Chronic findings detailed above. Electronically authenticated by: BLAYNE CALDERÓN Date: 07/24/2023 04:33 Abdomen/Pelvis CT 07/24/23 03:20 IMPRESSION: 1. No pulmonary embolism. Mild bilateral pulmonary infiltrates; pulmonary edema versus infectious etiology versus atelectasis. 2. Stable small pulmonary nodules since at least 2017 which favors benign etiology. 3. Small moderate free fluid within pelvis; nonspecific. 4. No acute or specific abdominal or pelvic findings to account for patient's symptoms. Chronic findings detailed above. Electronically authenticated by: BLAYNE CALDERÓN Date: 07/24/2023 04:33 ECG Data Attestation: I personally reviewed and interpreted this ECG as follows: (Rate of ninety-two. No STEMI. Mildly prolonged QTC.) Critical Care Time Critical Care Time Critical Care Time: Yes Total Critical Care Time: 55 Attestation: Critical Care Procedure Note Authorized and Performed by: Carlos Reed DO Total critical care time: 55 min Due to a high probability of clinically significant, life threatening deterioration, the patient required my highest level of preparedness to intervene emergently and I personally spent this critical care time directly and personally managing the patient. This critical care time included obtaining a history; examining the patient; pulse oximetry; ordering and review of studies; arranging urgent treatment with development of a management plan; evaluation of patient's response to treatment; frequent reassessment; and, discussions with other providers. This critical care time was performed to assess and manage the high probability of imminent, life-threatening deterioration that could result in multi-organ failure. It was exclusive of separately billable procedures and treating other patients and teaching time. Please see MDM section and the rest of the note for further information on patient assessment and treatment. Discharge Plan Discharge Chief Complaint: Dizziness Clinical Impression: Acute hypotension, Acute hypoxemic respiratory failure, Elevated troponin, Pneumonia Patient Disposition: [facility] Time of Disposition Decision: 05:04 Condition: Serious Mode of Transportation: EMS
[2023-07-24] MEDS: PIPERACILLIN SODIUM/TAZOBACTAM 4.5 GM in 0.9 % SODIUM CHLORIDE 50 ML IV ×2 (05:13→12:12)
[2023-07-24 05:15] LABS: PROCALCITONIN 0.07 ng/mL (0.00-0.50)
[2023-07-24 05:50] LABS: Lactate/Lactic Acid 1.7 mmol/L (0.4-2.0)
[2023-07-24] MEDS: VANCOMYCIN HCL 1,500 MG in 0.9 % SODIUM CHLORIDE 500 ML 250 MG IV (05:59)
[2023-07-24 06:02] LABS: Troponin I High Sensitivity 151.9 pg/mL (4.0-51.3)
--- NOTE | 2023-07-24 13:05 | P.HP_ITS ---
HPI H&P: HPI History of Present Illness Chief complaint: WEAKNESS Narrative: Patient presented to the emergency room with increasing weakness. Increasing cough and shortness of breath as well. Found to be hypoxic in the emergency room. He was found to have bilateral pneumonia. Patient had a recent procedure with an overnight stay at an outside facility. That was 4 days ago. With the x-ray findings consistent with pneumonia and recent admission, this would be healthcare acquired pneumonia. When I saw patient in the emergency room, she was improving. Less dyspnea per staff. She does still have some dyspnea and cough throughout the evaluation. She agrees that her breathing is overall improved from when she presented to the emergency room Opioid HPI Opioid Management Most Recent Opioid Data: Last Pain Scale 2 07/24/23 07:39 Last ED Pain Assessment 07/24/23 07:39 Last ORT Total Score 0 07/24/23 13:13 Last ORT Risk Category Low Risk 07/24/23 13:13 Review of Systems ROS Status of ROS 10 or more systems reviewed and unremark able except as noted in history and below [facility] History (Updated 07/24/23 @ 13:41 by Tanner Llamas MD) Type 2 diabetes mellitus with hyperglycemia ?E11.65 - Type 2 diabetes mellitus with hyperglycemia (ICD-10) Acute hypoxic respiratory failure ?J96.01 - Acute respiratory failure with hypoxia (ICD-10) CAD (coronary artery disease) ?I25.10 - Atherosclerotic heart disease of [place] coronary artery without angina pectoris (ICD-10) Multifocal pneumonia ?J18.9 - Pneumonia, unspecified organism (ICD-10) HTN (hypertension) ?I10 - Essential (primary) hypertension (ICD-10) Parkinson disease ?G20.A1 - Parkinson's disease without dyskinesia, without mention of fluctuations (ICD-10) Acute respiratory failure ?J96.00 - Acute respiratory failure, unspecified whether with hypoxia or hypercapnia (ICD-10) Dehydration ?E86.0 - Dehydration (ICD-10) Myocardial infarction ?I21.9 - Acute myocardial infarction, unspecified (ICD-10) Tobacco dependence ?F17.200 - Nicotine dependence, unspecified, uncomplicated (ICD-10) OAB (overactive bladder) ?N32.81 - Overactive bladder (ICD-10) Hyperlipidemia ?E78.5 - Hyperlipidemia, unspecified (ICD-10) DM2 (diabetes mellitus, type 2) ?E11.9 - Type 2 diabetes mellitus without complications (ICD-10) Surgical History (Updated 03/29/23 @ 15:26 by Luna Ying) History of cholecystectomy ?Z90.49 - Acquired absence of other specified parts of digestive tract (ICD- 10) Previous back surgery ?Z98.890 - Other specified postprocedural states (ICD-10) S/P triple vessel bypass ?Z95.1 - Presence of aortocoronary bypass graft (ICD-10) Family History (Updated 03/29/23 @ 11:57 by Luna Ying) Father Family history of CHF (congestive heart failure) Family history of cancer Mother Family history of CHF (congestive heart failure) Brother Family history of CHF (congestive heart failure) Social History (Updated 03/29/23 @ 11:54 by Luna Ying) Within the past year, how often did you have a drink containing alcohol: never Score interpretation: A score less than 3 is consistent with normal alcohol consumption. 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 Highest level of school completed/degree received: some college, no degree Are you now , , , , never or living with a partner: In a typical week, how many times do you talk on the telephone with family, friends, or neighbors: 3 or more times per week How often do you get together with friends or relatives: 3 or more times per week How often do you attend anglican or jain services: never Do you belong to any clubs or organizations such as anglican groups unions, fraternal or athletic groups, or school groups: no Total score: 2 Score interpretation: A score of greater than or equal to 2 indicates the lowest level of social isolation. Little interest or pleasure in doing things: not at all Feeling down, depressed, or hopeless: not at all Feel stressed/tense/nervous/anxious/difficulty sleeping: only a little Do you think of yourself as: straight/heterosexual Gender Identity: female Meds Home Medications and Allergies Home Medications ?Medication ?Instructions ?Recorded ?Confirmed ?Type atorvastatin 40 mg tablet 40 mg PO BEDTIME 03/29/23 07/24/23 History carbidopa 25 mg-levodopa 100 mg 1 tab PO QID 03/29/23 07/24/23 History tablet citalopram 40 mg tablet 40 mg PO QAM 03/29/23 07/24/23 History clopidogrel 75 mg tablet 75 mg PO DAILY 03/29/23 07/24/23 History hydrocodone 10 mg-acetaminophen 1 tab PO Q8H PRN pain 03/29/23 07/24/23 History 325 mg tablet isosorbide mononitrate 30 mg 30 mg PO DAILY 03/29/23 07/24/23 History tablet,extended release 24 hr metformin 750 mg tablet,extended 750 mg PO QDAY 03/29/23 07/24/23 History release 24 hr oxybutynin chloride 10 mg 10 mg PO .QD 03/29/23 07/24/23 History tablet,extended release 24 hr primidone 50 mg tablet 50 mg PO QID 03/29/23 07/24/23 History tizanidine 4 mg tablet 4 mg PO TID PRN muscle spasticity 03/29/23 07/24/23 History pregabalin 150 mg capsule 150 mg PO Q8H 07/24/23 07/24/23 History Allergies Allergy/AdvReac Type Severity Reaction Status Date / Time No Known Drug Allergies Allergy Verified 03/29/23 09:44 Exam Constitutional Vital Signs, click to edit/add: Last Vital Signs Temp 98.3 F 07/24/23 07:31 Pulse 68 07/24/23 12:30 Resp 18 07/24/23 12:30 BP 128/53 07/24/23 12:30 Pulse Ox 97 07/24/23 12:31 O2 Del Method Nasal Cannula 07/24/23 12:31 O2 Flow Rate 3 07/24/23 12:31 FiO2 75 07/24/23 05:15 Documenting provider has reviewed patient's vital signs: yes Common normals: apparent distress (Mild respiratory distress with cough throughout the evaluation) Chest Common normals: inspection of chest normal and palpation of chest normal Respiratory Common normals: abnormal respiratory effort (Mild respiratory distress) Effort & inspection: tachypneic and respiratory distress Auscultation: rhonchi throughout Cardio Common normals: no JVD, regular rate and regular rhythm Jugular venous distention: other GI Common normals: Normal to inspection, nondistended, normoactive bowel sounds present Extremity Common normals: normal to inspection, full ROM, normal capillary refill, no calf tenderness and no pedal edema Results Labs Labs: Short CBC 07/24/23 Range/Units 02:20 WBC 14.4 H (4.0-11.0) 10^3/uL Hgb 16.7 H (12.0-16.0) g/dL Hct 51.2 H (36.0-48.0) % Plt Count 220 (150-450) 10^3/uL BMP 07/24/23 02:20 Sodium 144 Potassium 3.3 L Chloride 106 Carbon Dioxide 24.9 BUN 20.0 H Creatinine 0.78 Glucose 220 H Calcium 9.0 Liver Function 07/24/23 Range/Units 02:20 Total Bilirubin 0.5 (0.2-1.0) mg/dL AST 1204 H* (15-37) U/L ALT 64 H (14-59) U/L Alkaline Phosphatase 229 H (46-116) U/L Albumin 3.0 L (3.4-5.0) g/dL Assessment and Plan Assessment and Plan (1) HCAP (healthcare-associated pneumonia): (2) Elevated troponin: Plan Sinus tachycardia, respiratory distress, severe hypotension with blood pressure 72/57, severe hypoxia with O2 saturation of 82% on room air, patient placed on Vapotherm with improvement in her oxygenation. She was given IV fluid boluses for the hypotension. Given frequent breathing treatments while in the emergency room and so far is improving. When I saw her in the emergency room she was down to 4 L by nasal cannula with O2 saturations in the mid 90s. With a positive lactate, leukocytosis, elevated LFTs with a bilateral pneumonia resulting in severe sepsis-sepsis protocol currently being followed. Consult to pulmonology for further evaluation. Aerosol treatments, sputum culture, serial labs, IV antibiotics. Parkinson's disease-continue with current medications Hypokalemia-supplement Iron deficiency anemia-monitor daily Lumbar disc disease with recent laminectomy-patient states pain is much improved since prior to surgery, physical therapy Occupational Therapy to work with patient Elevated liver function test-possibly related to the severe sepsis as outlined above, CT scan really unremarkable, will do serial labs, check lipase Chronically elevated high-sensitivity troponin and BNP-last echocardiogram couple months ago was pretty normal, she is not having any chest pain. She has no peripheral edema consistent with CHF. Findings on lung exam more consistent with pneumonia than heart failure NIDDM-insulin sliding scale Admission status: Patient with recent laminectomy, hospitalized, now with healthcare acquired pneumonia, severe sepsis, medically necessary treatment will span 2 midnights. Inpatient status
[2023-07-24 13:26] LABS: Troponin I High Sensitivity 237.2 pg/mL (4.0-51.3)
--- OUTSIDE RECORDS SUMMARY | 2023-07-24 13:26 | XMS_ITS | CCD ---
Author Organization [facility] Care Team Providers Care Clinical Technologist Name Role Phone PHYSICIAN, DEFAULT Unavailable Unavailable [...] Provider Villa Nicolas MD Primary Care Provider [phone] Villa Nicolas MD Unavailable Sabi WRIGHT, Montse Unavailable PIRKL, SELENE Referring Unavailable ELTAHAWY, EHAB Referring Unavailable PIRKL, SELENE Referring Unavailable HOY, ALE Referring Unavailable BRUCE, SÁNCHEZ Admitting Unavailable DEENA GARCIA Attending Unavailable ROSANA MIKE Attending Unavailable DIONE CUEVAS Attending Unavailable DIONE CUEVAS Attending Unavailable MD Aron Rain Attending Provider JOSHUA Nicolas Primary Care Provider [phone] Aron Rain Attending Unavailable Aron Rain Admitting Unavailable Fidencio Villa Primary Care Unavailable VILLA NICOLAS B Attending Unavailable ZOË BAUMAN Attending Unavailable FIDENCIO VILLA B Referring Unavailable HEMTIKA BUENO Attending Unavailable HEMTIKA BUENO Attending Unavailable CRYSTAL DUNLAP Attending Unavailable ZOË BAUMAN Referring Unavailable VILLA NICOLAS B Attending [...] clavulanate; Translations: [Augmentin] Drug Allergy 0 [facility] Repository (1 source) Penicillins Drug allergy (disorder) 0 [facility] Repository (1 source) DULoxetine Drug Allergy 7 [facility] Repository (1 source) OXcarbazepine Drug Allergy 7 [facility] Repository (5 sources) DULoxetine Drug Allergy 7 Hives, Other (See Comments) [email or web address] (4 sources) false ragweed pollen extract / western ragweed pollen extract Drug Allergy 3 Rash, Other (See Comments) [email or web address] (4 sources) OXcarbazepine Drug Allergy 7 Other (See Comments) [email or web address] (6 sources) Amoxicillin-Pot Clavulanate; Translations: [AMOXICILLIN-POT CLAVULANATE] Propensity to adverse reactions to drug 0 Angioedema [facility] (1 source) Penicillin G Drug Allergy 3 Unknown [facility] (1 source) Mixed Ragweed Propensity to adverse reactions 3 [facility] (4 sources) Amoxicillin; Translations: [amoxicillin] Drug Allergy 4 [facility] (4 sources) Clavulanate; Translations: [clavulanic acid] Drug Allergy 4 [facility] Medications Current Medications Medication Drug Class(es) Dates [...] EC tablet Indications: PAD (peripheral artery disease) ([facility]) Take 1 tablet (81 mg) by mouth [...] entacapone 200 mg oral tablet (1 source) Wnunhgwq-V-Gkzwcalcibjxotrkn Inhibitor entacapone (Comtan) 200 MG tablet Take [...] tablet by mouth every eight hours HYDROcodone-acetaminophen (Jackson) 10-325 MG tablet Indications: Intervertebral disc disorder [...] sources) Polyene Antifungal End: 07-20-2023 nystatin (MYCOSTATIN) 580791 UNIT/GM powder Apply 1 application topically in the morning and 1 application in the evening. 0 07/20/2023 Discontinued (Stop Taking at Discharge) nystatin (Mycost atin) 577172 UNIT/GM powder every 12 (twelve) hours. 0 [...] Coronary arteriosclerosis; Translations: [Atherosclerotic heart disease of [place] coronary artery without angina pectoris] Onset: 08-10-2022 [...] and visceral atherosclerosis (20 sources) Atherosclerosis of [place] arteries of extremities with rest pain, bilateral [...] Glucose [Mass/Vol] 116 mg/dL High 65-105 [facility] POC Glucose Fingerstickon Glucose [Mass/Vol] 116 mg/dL High 65 - 105 mg/dL [facility] [employer] [facility] Interpretation and review of laboratory results Abnormal [facility] FLUORO FOR SURGICAL PROCEDUR ESon 07-20-2023 FLUORO FOR SURGICAL PROCEDURES Radiology exam is complete. No Radiologist dictation. Please follow up with ordering provider. Final result Normal [facility] Glucose,Whole Bloodon 2023 Glucose [Mass/Vol] 149 mg/dL High 65-105 [facility] Glucose [Mass/Vol] 159 mg/dL High 65-105 [facility] Glucose [Mass/Vol] 131 mg/dL High 65-105 [facility] Guidance-- during surgeryon 07-20-2023 Radiology exam is complete. No Radiologist dictation. Please follow up with ordering provider. [facility] RIS CONSOLIDATED POC Glucose Fingerstickon Glucose [Mass/Vol] 149 mg/dL High 65 - 105 mg/dL [facility] Interpretation and review of laboratory results Abnormal [facility] [employer] [facility] Glucose [Mass/Vol] 159 mg/dL High 65 - 105 mg/dL [facility] Interpretation and review of laboratory results Abnormal [facility] [employer] [facility] Interpretation and review of laboratory results Abnormal [facility] [employer] [facility] [employer] [facility] US art pvr/post Ad 024 US art pvr/post LE [facility] [place] [address] Ultrasound Report Signed Patient: Mirna Quezada MR#: [id number] 41 : 1950 Acct:[id number] Age/Sex: 72 / F ADM Date: 07/06/23 Loc: Room: Type: [facility] Attending Dr: Aron Rain MD [...] Aron Rain M.D.07/09/2023 12:45 PM Dictation Location: [place] [address] Tech: Tamiko Diazce Transcribed By: FLOYD 07/09/23 1245 Dictated By: Aron Rain MD 07/09/23 124 Signed By: 07/09/23 1245 Normal [facility] US carotid doppler BIon - US carotid doppler BI [facility] [place] [address] Ultrasound Report Signed Patient: Mirna Quezada MR#: [id number] 41 : 1950 Acct:[id number] Age/Sex: 72 / F ADM Date: 07/06/23 Loc: Room: Type: [facility] Attending Dr: Aron Rain MD [...] Aron Rain M.D.07/09/2023 12:43 PM Dictation Location: [place] [address] Tech: Laura Aguilar Transcribed By: FLOYD 07/09/23 1243 Dictated By: Aron Rain MD 07/09/23 124 Signed By: 07/09/23 1243 Normal [facility] Office Visiton 05-25-2023 Follow-up visit [id number] Abhinav Quezada sudheer Koenig 1950 F Date Provider Department Center 05/25/2023 DIONE GOMEZ CARD [facility] Family History Problem Relation Age of Onset Hypertension Mother ALS Father Family Status - Relation Status Age at Mother Father Level of Service:24069 SC OFFICE/OUTPATIENT ESTABLISHED MOD MDM 30 MIN Normal [facility] Basic Metabolic Panelon 04-27 Anion gap [Moles/Vol] 12 mmol/L 9 - 17 mmol/L [email or web address] Calcium [Mass/Vol] 9.0 mg/dL 8.6 - 10. 4 mg/dL [email or web address] Chloride [Moles/Vol] 104 mmol/L 98 - 107 mmol/L [email or web address] CO2 [Moles/Vol] 25 mmol/L 20 - 31 mmol/L [email or web address] Creatinine [Mass/Vol] 0.5 mg/dL 0.5 - 0.9 mg/dL [email or web address] GFR/1.73 sq M.predicted MDRD (S/P/Bld) [Vol rate/Area] - PINF [email or web address] Comment on above: These results are not [...] 105 mg/dL High 70 - 99 mg/dL [email or web address] Interpretation and review of laboratory results Abnormal [email or web address] Potassium [Moles/Vol] 4.4 mmol/L 3.7 - 5.3 mmol/L [facility] Sodium [Moles/Vol] 141 mmol/L 135 - 144 mmol/L [facility] Urea nitrogen [Mass/Vol] 14 mg/dL 8 - 23 mg/dL [facility] Urea nitrogen/Creatinine [Mass ratio] 28 mg/mg High 9 - 20 [facility] Basic Metabolic Profon Anion gap [Moles/Vol] 12 mmol/L Normal 9-17 [facility] Comment on above: Performed By: #### B MP, CBC #### [facility] [address] [place] [address] Video Editor: Lucas Pink MD #### GLYHGB #### [address] [id number] Video Editor: Chalo Rendon MD BUN/CRE Ratio 28 High - [facility] Comment on above: Performed By: #### B MP, CBC #### [facility] [address] [place] [address] Video Editor: Lucas Pink MD #### GLYHGB #### [address] [address] Video Editor: Chalo Rendon MD Calcium [Mass/Vol] 9.0 mg/dL Normal 8.6-10.4 [facility] Comment on above: Performed By: #### B MP, CBC #### [facility] [address] [place] [address] Video Editor: Lucas Pink MD #### GLYHGB #### [address] [address] Video Editor: Chalo Rendon MD Chloride [Moles/Vol] 104 mmol/L Normal 98-107 [facility] Comment on above: Performed By: #### B MP, CBC #### [facility] [address] [place] [address] Video Editor: Lucas Pink MD #### GLYHGB #### [address] [address] Video Editor: Chalo Rendon MD CO2 [Moles/Vol] 25 mmol/L Normal 20-31 [facility] Comment on above: Performed By: #### B MP, CBC #### [facility] [address] [place] [address] Video Editor: Lucas Pink MD #### GLYHGB #### [address] [address] Video Editor: Chalo Rendon MD Creatinine [Mass/Vol] 0.5 mg/dL Normal 0.5-0.9 [facility] Comment on above: Performed By: #### B MP, CBC #### [facility] [address] [place] [address] Video Editor: Lucas Pink MD #### GLYHGB #### [address] [address] Video Editor: Chalo Rendon MD GFR/1.73 sq M.predicted among non-blacks MDRD (S/P/Bld) [Vol rate/Area] mL/min/{1.73_m2} Normal >60 [facility] Comment on above: Result Comment: These [...] Performed By: #### B MP, CBC #### [facility] [address] [place] [address] Video Editor: Lcuas Pink MD #### GLYHGB #### [address] [address] Video Editor: Chalo Rendon MD Glucose [Mass/Vol] 105 mg/dL High 70-99 [facility] Comment on above: Performed By: #### B MP, CBC #### [facility] [address] [place] [address] Video Editor: Lucas Pink MD #### GLYHGB #### [address] [address] Video Editor: Chalo Rendon MD Potassium [Moles/Vol] 4.4 mmol/L Normal 3.7-5.3 [facility] Comment on above: Performed By: #### Alejandro HUDSON, CBC #### [facility] [address] [place] [address] Video Editor: Lucas Pink MD #### GLYHGB #### [address] [address] Video Editor: Chalo Rendon MD Sodium [Moles/Vol] 141 mmol/L Normal 135-144 [facility] Comment on above: Performed By: #### B MP, CBC #### [facility] [address] [place] [address] Video Editor: Lucas Pink MD #### GLYHGB #### [address] [address] Video Editor: Chalo Rendon MD Urea nitrogen [Mass/Vol] 14 mg/dL Normal 8-23 [facility] Comment on above: Performed By: #### B MP, CBC #### [facility] [address] [place] [address] Video Editor: Lucas Pink MD #### GLYHGB #### [address] [address] Video Editor: Chalo Rendon MD CBCon 05-24-2023 Erythrocyte distribution width (RBC) [Ratio] 15.0 % High 11.8-14.4 [facility] Comment on above: Performed By: #### B MP, CBC #### [facility] [address] [place] [address] Video Editor: Lucas Pink MD #### GLYHGB #### [address] [address] Video Editor: Chalo Rendon MD Hematocrit (Bld) [Volume fraction] 46.0 % Normal 36.3-47.1 [facility] Comment on above: Performed By: #### B MP, CBC #### [facility] [address] [place] [address] Video Editor: Lucas Pink MD #### GLYHGB #### [address] [address] Video Editor: Chalo Rendon MD Hemoglobin (Bld) [Mass/Vol] 15.4 g/dL High 11.9-15.1 [facility] Comment on above: Performed By: #### B MP, CBC #### [facility] [address] [place] [address] Video Editor: Lucas Pink MD #### GLYHGB #### [address] [address] Video Editor: Chalo Rendon MD MCH (RBC) [Entitic mass] 33.0 pg Normal 25.2-33.5 [facility] Comment on above: Performed By: #### B MP, CBC #### [facility] [address] [place] [address] Video Editor: Lucas Pink MD #### GLYHGB #### [address] [address] Video Editor: Chalo Rendon MD MCHC (RBC) [Mass/Vol] 33.5 g/dL Normal 28.4-34.8 [facility] Comment on above: Performed By: #### B MP, CBC #### [facility] [address] [place] [address] Video Editor: Lucas Pink MD #### GLYHGB #### [address] [address] Video Editor: Chalo Rendon MD MCV (RBC) [Entitic vol] 98.5 fL Normal 82.6-102.9 [facility] Comment on above: Performed By: #### B MP, CBC #### [facility] [address] [place] [address] Video Editor: Lucas Pink MD #### GLYHGB #### [address] [address] Video Editor: Chalo Rendon MD NRBC Automated 0.0 per 100 WBC Normal 0.0 [facility] Comment on above: Performed By: #### B MP, CBC #### [facility] [address] [place] [address] Video Editor: Lucas Pink MD #### GLYHGB #### [address] [address] Video Editor: Chalo Rendon MD Platelet mean volume (Bld) [Entitic vol] 11.6 fL Normal 8.1-13.5 [facility] Comment on above: Performed By: #### B MP, CBC #### [facility] [address] [place] [address] Video Editor: Lucas Pink MD #### GLYHGB #### [address] [address] Video Editor: Chalo Rendon MD Platelets (Bld) [#/Vol] 168 10*3/uL Normal 138-453 [facility] Comment on above: Performed By: #### B MP, CBC #### [facility] [address] [place] [address] Video Editor: Lucas Pink MD #### GLYHGB #### [address] [address] Video Editor: Chalo Rendon MD RBC (Bld) [#/Vol] 4.67 10*6/uL Normal 3.95-5.11 [facility] Comment on above: Performed By: #### B MP, CBC #### [facility] [address] [place] [address] Video Editor: Lucas Pink MD #### GLYHGB #### [address] [address] Video Editor: Chalo Rendon MD WBC (Bld) [#/Vol] 10.7 10*3/uL Normal 3.5-11.3 [facility] Comment on above: Performed By: #### B MP, CBC #### [facility] [address] [place] [address] Video Editor: Lucas Pink MD #### GLYHGB #### [address] [address] Video Editor: Chalo Rendon MD Erythrocyte distribution width (RBC) [Ratio] 15.0 % High 11.8 - 14.4 % [facility] Hematocrit (Bld) [Volume fraction] 46.0 % 36.3 - 47.1 % [facility] Hemoglobin (Bld) [Mass/Vol] 15.4 g/dL High 11.9 - 15.1 g/dL [facility] Interpretation and review of laboratory results Abnormal [facility] MCH (RBC) [Entitic mass] 33.0 pg 25.2 - 33.5 pg [facility] MCHC (RBC) [Mass/Vol] 33.5 g/dL 28.4 - 34.8 g/dL [facility] MCV (RBC) [Entitic vol] 98.5 fL 82.6 - 102.9 fL [facility] Nucleated RBC/100 WBC (Bld) [Ratio] 0.0 % 0.0 per 100 WBC [facility] Platelet mean volume (Bld) [Entitic vol] 11.6 fL 8.1 - 13.5 fL [facility] Platelets (Bld) [#/Vol] 168 10*3/uL [facility] RBC (Bld) [#/Vol] 4.67 10*6/uL 3.95 - 5.1 1 m/uL [facility] WBC other (Bld) [#/Vol] 10.7 [facility] Hemoglobin A1Con 05-24-2023 Glucose [Mass/Vol] 140 mg/dL Normal [facility] Comment on above: Result Comment: The ADA and AACC recommend providing the estimated average glucose result to permit better patient understanding of their HBA1c result. Performed By: #### C BC, BMP #### [facility] [address] [place] [address] Video Editor: Lucas Pink MD #### GLYHGB #### [facility] [address] [place], [place] [id number] Video Editor: Chalo Rendon MD HbA1c (Bld) [Mass fraction] 6.5 % High 4.0-6.0 [facility] Comment on above: Performed By: #### C BC, [facility] #### [facility] [address] [place], [place] [id number] Video Editor: Lucas Pink MD #### GLYHGB #### [facility] [address] [place], [place] [id number] Video Editor: Chalo Rendon MD Average glucose Estimated from glycated hemoglobin (Bld) [Mass/Vol] 140 mg/dL [facility] Comment on above: The ADA and AACC rec ommend providing the estimated average glucose result to permit better patient understanding of their HBA1c result. HbA1c (Bld) [Mass fraction] 6.5 % High 4.0 - 6.0 % [facility] Interpretation and review of laboratory results Abnormal [facility] Telemedicineon 04-19-2023 Telemedicine [id number] Abhinav Quezada W 1950 F Date Provider Department Center 04/19/2023 Sherri-DIONE CUEVAS [facility] Family History Problem Relation Age of Onset Hypertension Mother ALS Father Family Status - Relation Status Age at Mother Father Level of Service:12968 [place] PHYS/QHP TELEPHONE EVALUATION 21-30 MIN [facility] Orders Onlyon 04-11-2023 Orders Only [id number] Abhinav Quezada W 1950 Date Provider Department Center 04/11/2023 KATHERINE BONDS [facility] Family History Problem Relation Age of Onset Hypertension Mother ALS Father Family Status - Relation Status Age at Mother Father Normal [facility] Documentationon 04-10-2023 Documentation [id number] Abhinav Quezada W 1950 Date Provider Department Center 04/10/2023 [id number] CORRALES [facility] Family History Problem Relation Age of Onset Hypertension Mother ALS Father Family Status - Relation Status Age at Mother Father Reason for Visit and Comments: HF inpatient satisfaction survey sent. [Other] Normal [facility] 36on 04-08-2023 36 Discharge date: 04/05/23 Call [...] reminder. No other questions. Aurora Mix PA-C [facility] Cardiovascular Medicine [phone] Normal [facility] Telephoneon 04-08-2023 Telephone [id number] Abhinav Quezada W 1950 F Date Provider Department Center 04/08/2023 [id number] MIX [facility] Family History Problem Relation Age of Onset Hypertension Mother ALS Father Family Status - Relation Status Age at Mother Father Normal [facility] 30on 04-05-2023 30 Problem: Pain - Adul [...] Goal: Maintains hematologic stability Outcome: Progressing Normal [facility] BASIC METABOLIC PANELon 03-26 Anion gap [Moles/Vol] 9 mmol/L Normal 7-20 [facility] Comment on above: Performed By: #### L AB15 ####[facility] ([facility])[address] [place] [address] Calcium [Mass/Vol] 9.0 mg/dL Normal 8.6-10.3 [facility] Comment on above: Performed By: #### L AB15 ####[facility] ([facility])[address] [place] [address] Chloride [Moles/Vol] 108 mmol/L High 98-107 [facility] Comment on above: Performed By: #### L AB15 ####[facility] ([facility])[address] [place] [address] CO2 [Moles/Vol] 27 mmol/L Normal 21-31 [facility] Comment on above: Performed By: #### L AB15 ####[facility] ([facility])[address] [place] [address] Creatinine [Mass/Vol] 0.54 mg/dL Low 0.60-1.20 [facility] Comment on above: Performed By: #### L AB15 ####[facility] ([facility])[address] [place] [address] GLOMERULAR FILTRATION RATE ML/MIN/1.73 SQ M.PREDICTED 97.8 mL/min/1.73m*2 Normal >60.0 [facility] Comment on above: Result Comment: [facility]???s estimated glomerular filtration rate (eGFR) will no [...] of individuals. Performed By: #### L AB15 ####[facility] ([facility])[address] [place] [address] Glucose [Mass/Vol] 157 mg/dL High 70-100 [facility] Comment on above: Performed By: #### L AB15 ####[facility] ([facility])[address] [place] [address] Potassium [Moles/Vol] 4.3 mmol/L Normal 3.5-5.1 [facility] Comment on above: Performed By: #### L AB15 ####[facility] [place] [address] Sodium [Moles/Vol] 140 mmol/L Normal 136-145 [facility] Comment on above: Performed By: #### L AB15 ####[facility] ([facility])[address] [place] [address] Urea nitrogen [Mass/Vol] 30 mg/dL High 7-25 [facility] Comment on above: Performed By: #### L AB15 ####[facility] ([facility])[address] [place] [address] UREA NITROGEN/CREATININE (MASS RATIO) IN SER/PLAS 55.6 Normal [facility] Comment on above: Performed By: #### L AB15 ####[facility] [place] [address] CBCon 04-05-2023 Erythrocyte distribution width (RBC) [Ratio] 13.9 % Normal 11.5-15.0 [facility] Comment on above: Performed By: #### L [id number] #### [facility] ([facility]) [address] [place] [address] ERYTHROCYTE MEAN CORPUSCULAR HEMOGLOBIN CONCENTRATION (G/DL) BY AUTOMATED 34.1 g/dL Normal 32.0-35.0 [facility] Comment on above: Performed By: #### L [id number] #### [facility] ([facility]) [address] [place] [address] Hematocrit (Bld) [Volume fraction] 41.4 % Normal 36.0-48.0 [facility] Comment on above: Performed By: #### L [id number] #### [facility] ([facility]) [address] [place] [address] Hemoglobin (Bld) [Mass/Vol] 14.1 g/dL Normal 12.0-15.0 [facility] Comment on above: Performed By: #### L [id number] #### [facility] ([facility]) [address] [place] [address] MCH (RBC) [Entitic mass] 32.3 pg Normal 27.0-33.0 [facility] Comment on above: Performed By: #### L [id number] #### [facility] ([facility]) [address] [place] [address] MCV (RBC) [Entitic vol] 95.0 fL Normal 82.0-98.0 [facility] Comment on above: Performed By: #### L [id number] #### [facility] ([facility]) [address] [place] [address] PLATELETS (10*3/UL) IN BLOOD AUTOMATED COUNT 234 10*3/uL Normal 150-400 [facility] Comment on above: Performed By: #### L [id number] #### [facility] ([facility]) [address] [place] [address] RBC (Bld) [#/Vol] 4.36 10*6/uL Normal 3.80-5.00 [facility] Comment on above: Performed By: #### L [id number] #### [facility] ([facility]) [address] [place] [address] WBC (Bld) [#/Vol] 6.75 10*3/uL Normal 4.00-10.60 [facility] Comment on above: Performed By: #### L [id number] #### [facility] ([facility]) [address] [place] [address] MAGNESIUMon 04-05-2023 Magnesium [Mass/Vol] 1.6 mg/dL Low 1.9-2.7 [facility] Comment on above: Performed By: #### L [id number] #### [facility] ([facility]) [address] [place] [address] NURSNOTEon 04-05-2023 NURSNOTE Shop Estimator notified hospitalist about blood pressure is 165/44 and her heart rate is 57. Patient was sleeping at the time. Hospitalist would like for bid writer to monitor the patient if the patient is asymptomatic. Normal [facility] POCT GLUCOSE METER UNSOLICIT ED RESULTSon 04-05-2023 Glucose [Mass/Vol] 198 mg/dL High 70-105 [facility] Comment on above: Order Comment: Waive d Testing in the ED is performed under the ED CLIA certificate #[id number]. Result Comment: wwar rad Performed By: #### L [id number] ####[facility] ([facility])[address] [place] [address] Glucose [Mass/Vol] 248 mg/dL High 70-105 [facility] Comment on above: Order Comment: Waive d Testing in the ED is performed under the ED CLIA certificate #[id number]. Result Comment: wwar rad Performed By: #### L [id number] #### [facility] ([facility]) [address] [place] [address] Glucose [Mass/Vol] 141 mg/dL High 70-105 [facility] Comment on above: Order Comment: Waive d Testing in the ED is performed under the ED CLIA certificate #[id number]. Result Comment: wwar rad Performed By: #### L [id number] ####[facility] (BEAKER)[address] [place] [address] 30on 04-04-2023 30 Daily Case Managemen t Update Multidisciplinary rounds have been completed. Barriers to Discharge: from Justin elevated troponin and HF. Ischemic evaluation that [...] Select all services needed for the patient [facility] Facility (30 day convalescent stay) Please indicate your approval for this care by adding your name here: SELENE LIZ 04/03/23 2338 Therapy Orders (From admission, onward) Start Ordered 04/04/23 1152 PT eval and treat Until therapy completed Question: Reason for PT? Answer: weakness 04/04/23 1151 04/04/23 1152 OT eval and treat Until therapy completed Question: Reason for OT? Answer: weakness 04/04/23 1151 Normal [facility] 30 Problem: Pain - Adul t Goal: [...] will verbalize decreased discomfort Outcome: Progressing Normal [facility] ANTI-XA (HEPARIN LEVEL)on HEPARIN UNFRACTIONATED (U/ML) IN PPP BY CHROMOGENIC METHOD 0.36 IU/mL Normal 0.3-0.7 [facility] Comment on above: Result Comment: [place] roxaban and Apixaban will interfere with the anti Xa assay used to monitor UFH and LMWH. Performed By: #### L [id number] ####[facility] (myinfoQAKER)[address] [place] [address] HEPARIN UNFRACTIONATED (U/ML) IN PPP BY CHROMOGENIC METHOD 0.18 IU/mL Low 0.3-0.7 [facility] Comment on above: Result Comment: [place] roxaban and Apixaban will interfere with the anti Xa assay used to monitor UFH and LMWH. Performed By: #### L [id number] #### [facility] (BEAKER) [address] [place] [address] HEPARIN UNFRACTIONATED (U/ML) IN PPP BY CHROMOGENIC METHOD 0.14 IU/mL Invalid Interpretation Code 0.3-0.7 [facility] Comment on above: Order Comment: Check anti-Xa level every 6 hours while on heparin infusion, or per protocol. Result Comment: [place] roxaban and Apixaban will interfere with the anti Xa assay used to monitor UFH and LMWH. Performed By: #### L [id number] #### [facility] ([employer]) [address] [place] [address] APTTon 04-04-2023 ACTIVATED PARTIAL THROMBOPLASTIN TIME IN PPP BY COAGULATION ASSAY 34.8 Seconds Normal 25.0-35.0 [facility] Comment on above: Order Comment: Basel ine aPTT before initiating heparin infusion. Result Comment: Clin ical significance of the APTT is questionable in the presence of heparin. Performed By: #### L [id number] #### [facility] (BEAKER) [address] [place] [address] CONSULTon 04-04-2023 CONSULT -- Attestation signed by Claritza Bello MD at 04/04/2023 4:03 PM I personally saw and examined the patient on the same date of service as resident/fellow Dr Garza. I discussed the findings and therapeutic plan with the resident/fellow Dr Garza. I agree with the documentation, except for any edits/updates below. Teaching Physician's Revisions: Claritza Bello MD, MPH, [facility], [facility], [facility] Interventional Cardiology Pager Email: [email or web address] Cardiology Consult Note Reason for Consult: CHF exacerbation HPI: Mirna Quezada is a 72 y.o. female with a past medical history significant for CAD status post CABG (ALMARAZ to LAD, SVG to D1, and SVG to OM1) 2000, ischemic cardiomyopathy, COPD, hypertension, type 2 diabetes mellitus who originally presented to [facility] with cough and was found to have community acquired pneumonia and acute heart failure exacerbation. Patient was transferred from [facility] for cardiology evaluation for elevated troponin. Patient presented to [facility] 03/29/2023. Labs were significant for [...] olvera recommended that patient be transferred to [facility] for evaluation for cardiac catheterization. Of [...] by mouth in the morning. HYDROcodone-acetaminop hen (Jackson) 10-325 mg tablet Take 1 tablet by [...] the p (more content not included)... Normal [facility] NURSNOTEon 04-04-2023 NURSNOTE Shop Estimator phoned hospitalist to inform him that the patient blood pressure was 85/42 at 4:10 am and 101/46 at 4:20. Shop Estimator also let the hospitalist know that the patient was asymptomatic. Hospitalist would like for bid writer to keep a close eye on the patient and her blood pressure; call the hospitalist if any changes. Normal [facility] PLATELET COUNTon 04-04-2023 PLATELETS (10*3/UL) IN BLOOD AUTOMATED COUNT 242 10*3/uL Normal 150-400 [facility] Comment on above: Performed By: #### L [id number] #### [facility] ([employer]) [address] [place] [address] POCT GLUCOSE METER UNSOLICIT ED RESULTSon 04-04-2023 Glucose [Mass/Vol] 209 mg/dL High 70-105 [facility] Comment on above: Order Comment: Waive d Testing in the ED is performed under the ED CLIA certificate #[id number]. Result Comment: gregg hardy Performed By: #### L [id number] ####[facility] ([employer])[address] [place] [address] Glucose [Mass/Vol] 188 mg/dL High 70-105 [facility] Comment on above: Order Comment: Waive d Testing in the ED is performed under the ED CLIA certificate #[id number]. Result Comment: wwar rad Performed By: #### L [id number] #### [facility] ([employer]) [address] [place] [address] Glucose [Mass/Vol] 191 mg/dL High 70-105 [facility] Comment on above: Order Comment: Waive d Testing in the ED is performed under the ED CLIA certificate #[id number]. Result Comment: wwar rad Performed By: #### L [id number] ####[facility] ([employer])[address] [place] [address] Glucose [Mass/Vol] 248 mg/dL High 70-105 [facility] Comment on above: Order Comment: Waive d Testing in the ED is performed under the ED CLIA certificate #[id number]. Result Comment: wwar rad Performed By: #### L [id number] #### [facility] ([employer]) [address] [place] [address] Glucose [Mass/Vol] 142 mg/dL High 70-105 [facility] Comment on above: Order Comment: Waive d Testing in the ED is performed under the ED CLIA certificate #[id number]. Result Comment: swey er2 Critical Value Noted Performed By: #### L [id number] #### [facility] ([facility]) [address] [place] [address] TROPONIN Ion 04-04-2023 Troponin I.cardiac [Mass/Vol] 0.06 ng/mL High 0.00-0.04 [facility] Comment on above: Performed By: #### L [id number] #### [facility] ([facility]) [address] [place] [address] Troponin I.cardiac [Mass/Vol] 0.07 ng/mL High 0.00-0.04 [facility] Comment on above: Performed By: #### L [id number] #### [facility] ([facility]) [address] [place] [address] B-TYPE NATRIURETIC PEPTIDEon 04-03-2023 Natriuretic peptide B (Bld) [Mass/Vol] 138 pg/mL High 0-100 [facility] Comment on above: Performed By: #### L [id number] ####[facility] ([facility])[address] [place] [address] CBC WITH AUTO DIFFERENTIALon 04-03-2023 Basophils (Bld) [#/Vol] 0.06 10*3/uL Normal 0.00-0.20 [facility] Comment on above: Performed By: #### L [id number] #### [facility] ([facility]) [address] [place] [address] Basophils/100 WBC (Bld) 0.8 % Normal 0.0-1.0 [facility] Comment on above: Performed By: #### L [id number] #### [facility] ([facility]) [address] [place] [address] Eosinophils (Bld) [#/Vol] 0.15 10*3/uL Normal 0.00-0.50 [facility] Comment on above: Performed By: #### L [id number] #### [facility] ([facility]) [address] [place] [address] Eosinophils/100 WBC (Bld) 1.9 % Normal 0.0-6.0 [facility] Comment on above: Performed By: #### L [id number] #### [facility] ([facility]) [address] [place] [address] Erythrocyte distribution width (RBC) [Ratio] 14.2 % Normal 11.5-15.0 [facility] Comment on above: Performed By: #### L [id number] #### [facility] ([facility]) [address] [place] [address] ERYTHROCYTE MEAN CORPUSCULAR HEMOGLOBIN CONCENTRATION (G/DL) BY AUTOMATED 33.4 g/dL Normal 32.0-35.0 [facility] Comment on above: Performed By: #### L [id number] #### [facility] ([facility]) [address] [place] [address] Hematocrit (Bld) [Volume fraction] 44.3 % Normal 36.0-48.0 [facility] Comment on above: Performed By: #### L [id number] #### [facility] ([facility]) [address] [place] [address] Hemoglobin (Bld) [Mass/Vol] 14.8 g/dL Normal 12.0-15.0 [facility] Comment on above: Performed By: #### L [id number] #### [facility] ([facility]) [address] [place] [address] Immature granulocytes (Bld) [#/Vol] 0.06 10*3/uL Normal 0.00-0.20 [facility] Comment on above: Performed By: #### L [id number] #### [facility] [address] [place] [address] Immature granulocytes/100 WBC (Bld) 0.8 % Normal 0.0-1.0 [facility] Comment on above: Performed By: #### L [id number] #### [facility] [address] [place] [address] Lymphocytes (Bld) [#/Vol] 2.57 10*3/uL Normal 1.20-4.00 [facility] Comment on above: Performed By: #### L [id number] #### [facility] [address] [place] [address] Lymphocytes/100 WBC (Bld) 32.2 % Normal 20.0-45.0 [facility] Comment on above: Performed By: #### L [id number] #### [facility] ([facility]) [address] [place] [address] MCH (RBC) [Entitic mass] 32.2 pg Normal 27.0-33.0 [facility] Comment on above: Performed By: #### L [id number] #### [facility] ([facility]) [address] [place] [address] MCV (RBC) [Entitic vol] 96.3 fL Normal 82.0-98.0 [facility] Comment on above: Performed By: #### L [id number] #### [facility] [address] [place] [address] Monocytes (Bld) [#/Vol] 0.79 10*3/uL Normal 0.10-1.00 [facility] Comment on above: Performed By: #### L [id number] #### [facility] [address] [place] [address] Monocytes/100 WBC (Bld) 9.9 % Normal 5.0-12.0 [facility] Comment on above: Performed By: #### L [id number] #### [facility] [address] [place] [address] Neutrophils (Bld) [#/Vol] 4.36 10*3/uL Normal 1.60-7.60 [facility] Comment on above: Performed By: #### L [id number] #### [facility] (BEAKER) [address] [place] [address] Neutrophils/100 WBC (Bld) 54.4 % Normal 40.0-72.0 [facility] Comment on above: Performed By: #### L [id number] #### [facility] ([facility]) [address] [place] [address] PLATELETS (10*3/UL) IN BLOOD AUTOMATED COUNT 254 10*3/uL Normal 150-400 [facility] Comment on above: Performed By: #### L [id number] #### [facility] ([facility]) [address] [place] [address] RBC (Bld) [#/Vol] 4.60 10*6/uL Normal 3.80-5.00 [facility] Comment on above: Performed By: #### L [id number] #### [facility] ([facility]) [address] [place] [address] WBC (Bld) [#/Vol] 7.99 10*3/uL Normal 4.00-10.60 [facility] Comment on above: Performed By: #### L [id number] #### [facility] ([facility]) [address] [place] [address] COMPREHENSIVE METABOLIC PANE Gaurav 04-03-2023 Albumin [Mass/Vol] 3.8 g/dL Normal 3.5-5.7 [facility] Comment on above: Performed By: #### L [id number] #### [facility] ([facility]) [address] [place] [address] ALP [Catalytic activity/Vol] 73 U/L Normal 34-104 [facility] Comment on above: Performed By: #### L [id number] #### [facility] ([facility]) [address] [place] [address] ALT [Catalytic activity/Vol] 15 U/L Normal 7-52 [facility] Comment on above: Performed By: #### L [id number] #### [facility] ([facility]) [address] [place] [address] Anion gap [Moles/Vol] 14 mmol/L Normal 7-20 [facility] Comment on above: Performed By: #### L [id number] #### [facility] (BEAKER) [address] [place] [address] AST [Catalytic activity/Vol] 25 U/L Normal 13-39 [facility] Comment on above: Performed By: #### L [id number] #### [facility] (BEAKER) [address] [place] [address] Bilirubin [Mass/Vol] 0.3 mg/dL Normal 0.3-1.0 [facility] Comment on above: Performed By: #### L [id number] #### [facility] (BEAKER) [address] [place] [address] Calcium [Mass/Vol] 9.6 mg/dL Normal 8.6-10.3 [facility] Comment on above: Performed By: #### L [id number] #### [facility] [address] [place] [address] Chloride [Moles/Vol] 104 mmol/L Normal 98-107 [facility] Comment on above: Performed By: #### L [id number] #### [facility] (BEAKER) [address] [place] [address] CO2 [Moles/Vol] 27 mmol/L Normal 21-31 [facility] Comment on above: Performed By: #### L [id number] #### [facility] [address] [place] [address] Creatinine [Mass/Vol] 0.65 mg/dL Normal 0.60-1.20 [facility] Comment on above: Performed By: #### L [id number] #### [facility] (BEAKER) [address] [place] [address] GLOMERULAR FILTRATION RATE ML/MIN/1.73 SQ M.PREDICTED 93.5 mL/min/1.73m*2 Normal >60.0 [facility] Comment on above: Result Comment: The [facility]'s estimated glomerular filtration rate (eGFR) will no [...] individuals. Performed By: #### L [id number] #### [facility] ([facility]) [address] [place] [address] Glucose [Mass/Vol] 120 mg/dL High 70-100 [facility] Comment on above: Performed By: #### L [id number] #### [facility] ([facility]) [address] [place] [address] Potassium [Moles/Vol] 4.1 mmol/L Normal 3.5-5.1 [facility] Comment on above: Performed By: #### L [id number] #### [facility] ([facility]) [address] [place] [address] Protein [Mass/Vol] 6.7 g/dL Normal 6.0-8.3 [facility] Comment on above: Performed By: #### L [id number] #### [facility] ([facility]) [address] [place] [address] Sodium [Moles/Vol] 141 mmol/L Normal 136-145 [facility] Comment on above: Performed By: #### L [id number] #### [facility] ([facility]) [address] [place] [address] Urea nitrogen [Mass/Vol] 32 mg/dL High 7-25 [facility] Comment on above: Performed By: #### L [id number] #### [facility] ([facility]) [address] [place] [address] UREA NITROGEN/CREATININE (MASS RATIO) IN SER/PLAS 49.2 Normal [facility] Comment on above: Performed By: #### L [id number] #### [facility] ([facility]) [address] [place] [address] MAGNESIUMon 04-03-2023 Magnesium [Mass/Vol] 1.2 mg/dL Low 1.9-2.7 [facility] Comment on above: Performed By: #### L [id number] ####[facility] ([employer])[address] [place] [address] PHOSPHORUSon 04-03-2023 Magnesium [Mass/Vol] 3.6 mg/dL Normal 2.5-5.0 [facility] Comment on above: Performed By: #### L [id number] ####[facility] ([facility] [place] [address] PROTIME-INRon 04-03-2023 INR IN PPP BY COAGULATION ASSAY 1.00 Normal 0.90-1.10 [facility] Comment on above: Result Comment: ACCC P [...] 1995;[id number]. Performed By: #### L [id number] #### [facility] ([employer]) [address] [place] [address] PROTHROMBIN TIME (PT) IN PPP BY COAGULATION ASSAY 13.2 Seconds Normal 12.3-14.8 [facility] Comment on above: Performed By: #### L [id number] #### [facility] (BEAKER) [address] [place] [address] TROPONIN Ion 04-03-2023 Troponin I.cardiac [Mass/Vol] 0.10 ng/mL High 0.00-0.04 [facility] Comment on above: Performed By: #### L [id number] #### [facility] (BEAKER) [address] [place] [address] BUN + Creatinineon Creatinine [Mass/Vol] 0.5 mg/dL Normal 0.5-0.9 [facility] Comment on above: Performed By: #### B UNCRT, CBC, GLU, LYTE #### [employer] [address] [place] [address] Video Editor: Chalo Rendon MD GFR/1.73 sq M.predicted among non-blacks MDRD (S/P/Bld) [Vol rate/Area] mL/min/{1.73_m2} Normal >60 [facility] Comment on above: Result Comment: These results [...] #### B UNCRT, CBC, GLU, LYTE #### [employer] [address] [place], [place] [id number] Video Editor: Chalo Rendon MD Urea nitrogen [Mass/Vol] 14 mg/dL Normal 8-23 [facility] Comment on above: Performed By: #### B UNCRT, CBC, GLU, LYTE #### [facility] [address] [place] [address] Video Editor: Chalo Rendon MD CBCon 02-02-2023 Erythrocyte distribution width (RBC) [Ratio] 14.3 % Normal 11.8-14.4 [facility] Comment on above: Performed By: #### B UNCRT, CBC, GLU, LYTE #### [address] [address] Video Editor: Chalo Rendon MD Hematocrit (Bld) [Volume fraction] 47.5 % High 36.3-47.1 [facility] Comment on above: Performed By: #### B UNCRT, CBC, GLU, LYTE #### [address] [address] Video Editor: Chalo Rendon MD Hemoglobin (Bld) [Mass/Vol] 16.5 g/dL High 11.9-15.1 [facility] Comment on above: Performed By: #### B UNCRT, CBC, GLU, LYTE #### [address] [address] Video Editor: Chalo Rendon MD MCH (RBC) [Entitic mass] 33.7 pg High 25.2-33.5 [facility] Comment on above: Performed By: #### B UNCRT, CBC, GLU, LYTE #### [address] [address] Video Editor: Chalo Rendon MD MCHC (RBC) [Mass/Vol] 34.7 g/dL Normal 28.4-34.8 [facility] Comment on above: Performed By: #### B UNCRT, CBC, GLU, LYTE #### [facility] [address] [place] [id number] Video Editor: Chalo Rendon MD MCV (RBC) [Entitic vol] 97.1 fL Normal 82.6-102.9 [facility] Comment on above: Performed By: #### B UNCRT, CBC, GLU, LYTE #### [facility] [address] [place] [address] Video Editor: Chalo Rendon MD NRBC Automated 0.0 per 100 WBC Normal 0.0 [facility] Comment on above: Performed By: #### B UNCRT, CBC, GLU, LYTE #### [address] [address] Video Editor: Chalo Rendon MD Platelet mean volume (Bld) [Entitic vol] 12.3 fL Normal 8.1-13.5 [facility] Comment on above: Performed By: #### B UNCRT, CBC, GLU, LYTE #### [address] [address] Video Editor: Chalo Rendon MD Platelets (Bld) [#/Vol] 149 10*3/uL Normal 138-453 [facility] Comment on above: Performed By: #### B UNCRT, CBC, GLU, LYTE #### [address] [address] Video Editor: Chalo Rendon MD RBC (Bld) [#/Vol] 4.89 10*6/uL Normal 3.95-5.11 [facility] Comment on above: Performed By: #### B UNCRT, CBC, GLU, LYTE #### [address] [address] Video Editor: Chalo Rendon MD WBC (Bld) [#/Vol] 8.8 10*3/uL Normal 3.5-11.3 [facility] Comment on above: Performed By: #### B UNCRT, CBC, GLU, LYTE #### [address] [address] Video Editor: Chalo Rendon MD Electrolyteson 02-02-2023 Anion gap [Moles/Vol] 10 mmol/L Normal 9-17 [facility] Comment on above: Performed By: #### B UNCRT, CBC, GLU, LYTE #### [address] [id number] Video Editor: Chalo Rendon MD Chloride [Moles/Vol] 104 mmol/L Normal 98-107 [facility] Comment on above: Performed By: #### B UNCRT, CBC, GLU, LYTE #### [facility] [address] [place] [address] Video Editor: Chalo Rendon MD CO2 [Moles/Vol] 24 mmol/L Normal 20-31 [facility] Comment on above: Performed By: #### B UNCRT, CBC, GLU, LYTE #### [facility] [address] [place] [address] [phone] Video Editor: Chalo Rendon MD Potassium [Moles/Vol] 4.2 mmol/L Normal 3.7-5.3 [facility] Comment on above: Performed By: #### B UNCRT, CBC, GLU, LYTE #### [facility] [address] [place] [address] Video Editor: Chalo Rendon MD Sodium [Moles/Vol] 138 mmol/L Normal 135-144 [facility] Comment on above: Performed By: #### B UNCRT, CBC, GLU, LYTE #### [facility] [address] [place] [address] [phone] Video Editor: Chalo Rendon MD Glucoseon 02-02-2023 Glucose [Mass/Vol] 127 mg/dL High 70-99 [facility] Comment on above: Performed By: #### B UNCRT, CBC, GLU, LYTE #### [facility] [address] [place] [address] [phone] Video Editor: Chalo Rendon MD Office Visiton 10-31-2022 Follow-up visit [id number] Abhinav Quezada 1950 F Date Provider Department Center 10/31/2022 [id number] [facility] Family History Problem Relation Age of Onset Hypertension Mother ALS Father Family Status - Relation Status Age at Mother Father Level of Service:70878 SC OFFICE/OUTPATIENT NEW MODERATE MDM 45-59 MINUTES Normal [facility] Hemoglobin A1Con 10-27-2022 Glucose [Mass/Vol] 157 mg/dL Normal [facility] Comment on above: Result Comment: The ADA and AACC recommend providing the estimated average glucose result to permit better patient understanding of their HBA1c result. Performed By: #### C BC, BMP #### [facility] [address] [place] [address] Video Editor: Lucas Pink MD #### GLYHGB #### [address] [address] Video Editor: Chalo Rendon MD HbA1c (Bld) [Mass fraction] 7.1 % High 4.0-6.0 [facility] Comment on above: Performed By: #### C RUBEN, BMP #### [facility] [address] [place] [address] Video Editor: Lucas Pink MD #### GLYHGB #### [address] [address] Video Editor: Chalo Rendon MD Basic Metabolic Profon 10-26 Anion gap [Moles/Vol] 9 mmol/L Normal -17 [facility] Comment on above: Performed By: #### C BC, BMP #### [facility] [address] [place] [address] Video Editor: Lucas Pink MD #### GLYHGB #### [address] [address] Video Editor: Cahlo Rendon MD BUN/CRE Ratio 27 High 9-20 [facility] Comment on above: Performed By: #### C RUBEN, BMP #### [facility] [address] [place] [address] Video Editor: Lucas Pink MD #### GLYHGB #### [address] [address] Video Editor: Chalo Rendon MD Calcium [Mass/Vol] 8.8 mg/dL Normal 8.6-10.4 [facility] Comment on above: Performed By: #### C BC, BMP #### [facility] [address] [place] [address] Video Editor: Lucas Pink MD #### GLYHGB #### [address] [address] Video Editor: Chalo Rendon MD Chloride [Moles/Vol] 105 mmol/L Normal 98-107 [facility] Comment on above: Performed By: #### Lali MIRANDA, BMP #### [facility] [place] [address] Video Editor: Lucas Pink MD #### GLYHGB #### [address] [address] Video Editor: Chalo Rendon MD CO2 [Moles/Vol] 27 mmol/L Normal 20-31 [facility] Comment on above: Performed By: #### Lali MIRANDA, BMP #### [facility] [address] [place] [address] Video Editor: Lucas Pink MD #### GLYHGB #### [address] [address] Video Editor: Chalo Rendon MD Creatinine [Mass/Vol] 0.6 mg/dL Normal 0.5-0.9 [facility] Comment on above: Performed By: #### C RUBEN, BMP #### [facility] [address] [place] [address] Video Editor: Lucas Pink MD #### GLYHGB #### [address] [address] Video Editor: Chalo Rendon MD GFR/1.73 sq M.predicted among non-blacks MDRD (S/P/Bld) [Vol rate/Area] mL/min/{1.73_m2} Normal >60 [facility] Comment on above: Result Comment: These [...] Performed By: #### C BC, BMP #### [facility] [place] [address] Video Editor: Lucas Pink MD #### GLYHGB #### [address] [address] Video Editor: Chalo Rendon MD Glucose [Mass/Vol] 134 mg/dL High 70-99 [facility] Comment on above: Performed By: #### C BC, BMP #### [facility] [place] [address] Video Editor: Lucas Pink MD #### GLYHGB #### [address] [address] Video Editor: Chalo Rendon MD Potassium [Moles/Vol] 4.3 mmol/L Normal 3.7-5.3 [facility] Comment on above: Performed By: #### C BC, BMP #### [facility] [address] [place] [address] Video Editor: Lucas Pink MD #### GLYHGB #### [address] [id number] Video Editor: Chalo Rendon MD Sodium [Moles/Vol] 141 mmol/L Normal 135-144 [facility] Comment on above: Performed By: #### C BC, BMP #### [facility] [address] [place] [phone] Video Editor: Lucas Pink MD #### GLYHGB #### [address] [id number] Video Editor: Chalo Rendon MD Urea nitrogen [Mass/Vol] 16 mg/dL Normal 8-23 [facility] Comment on above: Performed By: #### C BC, BMP #### [facility] [address] [place] [phone] Video Editor: Lucas Pink MD #### GLYHGB #### [address] [id number] Video Editor: Chalo Rendon [facility] Erythrocyte distribution width (RBC) [Ratio] 13.7 % Normal 11.8-14.4 [facility] Comment on above: Performed By: #### C BC, BMP #### [facility] [address] [place] [address] Video Editor: Lucas Pink MD #### GLYHGB #### [address] [id number] Video Editor: Chalo Rendon MD Hematocrit (Bld) [Volume fraction] 47.2 % High 36.3-47.1 [facility] Comment on above: Performed By: #### C RUBEN, BMP #### [facility] [address] [place] [address] Video Editor: Lucas Pink MD #### GLYHGB #### [address] [address] Video Editor: Chalo Rendon MD Hemoglobin (Bld) [Mass/Vol] 15.9 g/dL High 11.9-15.1 [facility] Comment on above: Performed By: #### C BC, BMP #### [facility] [address] [place] [address] Video Editor: Lucas Pink MD #### GLYHGB #### [address] [address] Video Editor: Chalo Rendon MD MCH (RBC) [Entitic mass] 33.5 pg Normal 25.2-33.5 [facility] Comment on above: Performed By: #### C BC, BMP #### [facility] [address] [place] [address] Video Editor: Lucas Pink MD #### GLYHGB #### [address] [address] Video Editor: Chalo Rendon MD MCHC (RBC) [Mass/Vol] 33.7 g/dL Normal 28.4-34.8 [facility] Comment on above: Performed By: #### C BC, BMP #### [facility] [address] [place] [address] Video Editor: Lucas Pink MD #### GLYHGB #### [address] [address] Video Editor: Chalo Rendon MD MCV (RBC) [Entitic vol] 99.6 fL Normal 82.6-102.9 [facility] Comment on above: Performed By: #### C BC, BMP #### [facility] [address] [place] [address] Video Editor: Lucas Pink MD #### GLYHGB #### [address] [address] Video Editor: Chalo Rendon MD NRBC Automated 0.0 per 100 WBC Normal 0.0 [facility] Comment on above: Performed By: #### C BC, BMP #### [facility] [address] [place] [address] Video Editor: Lucas Pink MD #### GLYHGB #### [address] [address] Video Editor: Chalo Rendon MD Platelet mean volume (Bld) [Entitic vol] 12.0 fL Normal 8.1-13.5 [facility] Comment on above: Performed By: #### C BC, BMP #### [facility] [address] [place] [address] Video Editor: Lucas Pink MD #### GLYHGB #### [address] [address] Video Editor: Chalo Rendon MD Platelets (Bld) [#/Vol] 141 10*3/uL Normal 138-453 [facility] Comment on above: Performed By: #### C BC, BMP #### [facility] [place] [address] Video Editor: Lucsa Pink MD #### GLYHGB #### [address] [address] Video Editor: Chalo Rendon MD RBC (Bld) [#/Vol] 4.74 10*6/uL Normal 3.95-5.11 [facility] Comment on above: Performed By: #### C BC, BMP #### [facility] [address] [place], [place] [id number] Video Editor: Lucas Pink MD #### GLYHGB #### [facility] [address] [place], [place] [id number] Video Editor: Chalo Rendon MD WBC (Bld) [#/Vol] 9.4 10*3/uL Normal 3.5-11.3 [facility] Comment on above: Performed By: #### C BC, BMP #### [facility] [address] [place], [place] [id number] Video Editor: Lucas Pink MD #### GLYHGB #### [address] [place], [place] [id number] Video Editor: Chalo Rendon MD MRI LSPINE WO CONon 06-29-19 MRI [facility] WO CON EXAM: MRI of the lumbar [...] GARRET BENJAMIN Date: 2022-06-28 07:23 Normal [facility] US CAROTID ART BILon 10-28-2 [...] by: CHARY AWAD Date: 2022-01-20 17:33 Normal [facility] Consent Formson 01-18-2022 Consent Forms [id number] [facility] CREATININEon 01-16-2022 Creatinine [Mass/Vol] 0.66 mg/dL Normal 0.55-1.02 [facility] Comment on above: Performed By: #### C RUFINO #### [facility] [address] [place] [address] Dr. Deborah Solorio EGFR-AF ENGLISH >60 Normal >=60 [facility] Comment on above: Performed By: #### C RUFINO #### [facility] [address] [place] [address] Dr. Deborah Solorio EGFR-NON AF ENGLISH >60 Normal >=60 [facility] Comment on above: Performed By: #### C RUFINO #### [facility] [address] [address] [address] Deborah Solorio CTA ABD ASHLEY WWO [...] BLAYNE CALDERÓN Date: 2022-01-16 19:35 Normal [facility] Coding Summaryon 01-11-2022 Coding Summary HTMLBase 64 NshkfdskZKs0wQm+PGhlYW Q+WG0OSFLsE93cuVHgdN6Z V8qDXO2TEBSBDMCQJJ8HMI 3waEQ0VNqnM8RtquAm TncyzUKwFZ37DDq2XPJ5lN xiKQdggD9jbTEcS7y7PqHq JV35tF85WXxhCZNpPjZ5Su ZpbjsgbWFy J0pyJsVfnOSgWmy+PHRhYm xlIHdpZHRoPScxMDAlJyBz rLdsXZ6dRf8bBOXbLYDgeQ xhcHNlOiBj j4uvVDEaDHtqAY3yhSokF3 AhxZP9EZSsk3p4Lj66gWT+ HQTbNOE7qBxsYHecq521Xk Wyv7gtHKR3 mTTuPUnmVCY6K83bk9P9BG SdMCRyDRM1rDT8jS2iaWcp hfshO1InuPYuDrK4WVM6hR GwxT9ryLfj wqrpgI1nSmk+Z36LSC7BDB JTVM8EGlw8A8HsRkxheXL+ CI08AOGoTX03pJLpzHCrk8 jwnJt8NlBq WWGiLIJ9mWfqXHyks4DoWO FvF60liHEsi7D3PDSzoOgo lSJqOkGvaPD9zK9hJWhunk yyr8qknbwv Xvwqm5erie82oD55O17xMT czFRRqIJQ1DUHzIOAuwLgf gk7ioI7vDp0+QPxpa6zjn9 zgvTx7ZhBw ENRilgQxkKfxHLM3b9PmQl 84B8ZoxOfsl7WdAfo0be64 vQDla7E6pFS5BZfmEETwwJ 1xSLblAqB2 IGFkJzZlkR59hHVhAPwrHl 5ttXkncWxmZD6vTBCiuzyy NTOzxJ1vDVYryTBmsEvgQZ 4wNTBpbjtm h947FqNaNIY3OZClbYCxB9 QlyE8bDxBpVHKeYMSlK9Es fBWtPTzsC629DVziRiK2KQ QxckCtO9Dj EWMrfWdpIbC7k1P6Oh6Zq4 DixebaKHN9ELnfSGXzBcS7 DqIqYgU0I3LoJnv4UZXgvA rnFM8lX2Lz OXPuiwndjrboyEW4YDHrGT ClqF85kJBoAJxrLq7et8X5 j204BSXkUCSheI12Uh2xbW ogMTBwdCBU lE0mxfxun3tcdsjnEmRqTA WdUTj2GYs8XUBsaMqwKgZo CDB5XqX8XZS4mZShmQ9khA tjelizdR3b Oyc+I75lkZ3lDFZ7ENS9rj meEOFircMwCZ43BG70O3Px PjwvdGFibGU+PGRpdiBzdH kkNP8iMkQv f4duv6ZdEOeiY7HzFLJfBQ drSyq6YADwBIF8eCQ0mX3d NONjOOqyk1A5bFD8O3Yvan Xvme7wc2je DBRfELwdJ96fhPMoy4I1ML HmkXA0IDYddOxzFkRwrR83 Oyc+OYVpcGhdv6KfTmalq0 zyy1fjgAs7 GwRtSOBcipJvgYyeYUF9w1 IjJs15A65eUHbqWHEpHOBt EAGhBIXzyTxccx6hjQ1bMl 8+PGNvbCB3 tZK3rQ5vVBJrRsN5GVsmL8 23LcMglWNaVscxy3hfc2js cUg5WoGqQRFmihKolEomQS Q7a6EfNd08 K19kXQhkBCLlDAZhWZLzIK QwwUekjg3fiI9xYo1+PC9j u6gubi74mB93eXU+PHRkIH O3zKpiBIrm MYAntI9zZNvpTyM4SVEqNm TxtD49nMCuELipWu6deXlx oPsmNN7nWQVcatifm718Fa Grz6btZEZu qZRiSNbhCDX0F56dd1M3SC UzATZlWQG5jQA3mY7amWgw bjogbGVmdDsgdmVydGljYW fkZEabW906 IHRvcDsnPlBhdGllbnQgTm YjPWb2M0RlGrw8JTEamCpa AV3weUZyJBalMw5yxHqtxV jjSJ3wXAUt qtdli753HwAjj0kfJKJypH WyQUtvMKD4F50hw0C2EAHx BVZmJGW9nJU4hL6dcOsrpp ogbGVmdDsg eaCvgXowTTuyHBffA884FN RvcDsnPkJpcnRoIERhdGU6 PC62VW96nDPyl9U8uJY2V4 BhZGRpbmct haklqUU0OKAeXLHbcC53Nn 8lnXuaDa5eIXMuTZU9VZLk wNXoJ0UyaP7sDlXtLRUuEN WoL9CaxQCx QYctU905GFkuZaC2NIQhxy PhE2YzYLGeqAchBfT2d2I8 Tk4XK2N1OI72BQ53sTRds6 R1jJP6F2Ze EZCluahbkeshzCW1NUExDM PamG40Wc6zjDnjFh9hRGKm DGA0YQXybDUqW0HchD0yJp AjMDAwMDAw C2DrtPXiFGkuC936ABybAu H3SLPszjZaU2IwZNKzrFsd FxK8g1Q8Yt9TAXp4EX30NL 47tAMus2O8 nWS1J4YnWAUmfolacxmeuW H2NUZzLSQtsS75To9gwKks Xd5mBYJcWHH7RRRrwSJlY6 LbgS3nApCw WBTcVICmP2GvlVRlSKknB1 87PPcsDdJ7FZTvkuPxO4Zo KPMtoMeoJvF8x5G0Vs7GAM WuHS16MUA4 cEK8ED88UY21C3AdGtbfyK FibGU+PHRhYmxlIHdpZHRo VBvjDCCsLwFunVocMM9pTi 9yZGVyLWNv mWngbAGmUbCpl6ddVWDbHD dkCT0ugIrvG9RrnKD4STUu h8m9Zu31C28bV5CjaVU+PG HxuKD4pYM7 vV5xNcGrQmY8LOegK920Eu GtbGTvJkhlq3qxz2zcwIj0 HpQ3RHDbkqLcpIczEQJ9v9 RaSr67V05q IHdpZHRoPSIxNSUiIHZhbG iutt1laB8qOj2+PGNvbCB3 dYW7xE6tRsOjMhS8FOdyN3 49InRvcCIv Jlepg7iiz3motRt7ClZaQK CsfiUxnVtgDWF8d0IfVd76 O8SzkAgvl2LlGra4mh14hS Afr0H3vJK6 O3GoQAQjjnwrsNQixGdrHJ 7sNWGmlpzwMKRoeF1sPHPs Z5i2DoBeOnZ5DRpwL9Irmy N0QSQrmQWa BZadVLI8K45fy0F8NCOzFV DxOKO5rDT6kH7nlOpisayh bGVmdDsgdmVydGljYWwtYW uoV370BVIl tKdtYAQnzK2oISKsrBWlrC boMO2yPSEdrlmzBcRNIBbP LCBCUkVOREEgVzwvdGQ+PH YhBOY8dPvn JLioJFDjuG5wMNQwM3b1Lp VsTxL9WCfaS7XgVMBldlrj Nw80cF9uThJvHfJ6MSefC2 TcdqI3DTGz mRDwRShfVWT8A95eg9T9WU JiFTSfTIQ8eSA9hW8rwNzi bjogbGVmdDsgdmVydGljYW csISwaL563 FIPqrHikSdN9XkF2DbJ0SR L8N7QbFjq6PNCjzLfiOG7d rYYnTYmbHi0uiNipdPipZM 4wNTBpbjtw KYFltE7hKWDqnWOhoMaaTF 8aWYJtlgrvz129LoCmCXM5 PNNoaMXbH9MhiA1pYuSgAT AaPPLzH8Cs lXKbCEkbA042SSerOvW6ES LkliTsY8LdONEvpIaqQaZ0 x4U9Ir07FKJHKEGrwvxwiP Q+PHRkIHN0 dZheAAhgQGQbwS7rUNKoM3 u4TuNoTdT9JYwjD4UgOPTl gbroZk48zE6oAdRpTbX4MZ ykM0YqbwP0 OWIvzTYbXJlkYZW7R94ir7 U1NRZmRGViQGQ8hID3fL7e bGlnbjogbGVmdDsgdmVydG ljYWwtYWxp P994MCHwrZnzWkWWNTVGER wvdGQ+HSCjRED9lLykNJws MJQekM9tEGEyU3p3PrOsYp M5FSknG8Eo YYKynxfoAj77iP9cSoOfPa K6QZwzK7GeawR8DXYgnUPz ISzlMZQ2Y96ho9R8MWZjHF XvVAX3pMM8 lF2yjRxauubliDGrvGvsfw BejIryIJafPDjiP164KLMf rMwtXgUrtMHDiKPcSQU4NX 31ZD82U1Bq PjwvdGFibGU+PHRhYmxlIH dpZHRoPScxMDAlJyBzdHls RS6aFj6wBIDuDQFzgOnsiL LhAkXtx4iy XSEcHTdiDL2iiWigY5NwpI P1YHByr4s9Ti27M64gQ7Jl dXA+FDTqsRZ7dWZ5hE2kPs LwJlY9EYty Q411ZiWjuVAdIdknx3jte0 qcsZc7UlNzIXHhmjShiLor BDX7h0EuNp94G06zUGdhXN RoPSIyMCUi TEVihFepvl4rzM6qLf6+PG XkzGA2aMH8hS8iHyYxUwQ3 KZczK432MwNxvLLcNuqsY3 5zW7RzlMX+ BOAjWrz0KIQbfEoyVB6leV XsXJlfPx3cRJY5OzAiJhRe SAxtK7ZhGRZtguicrqwzfC S9POOcHETr kO51Mn9nmRyvMn6sDISiSE M3AHEmjRLdO1BrzE0kLqRc CGHfANCrP8AmbMIqBKgwQ1 92CWrhIeD8 OKMjvxRaW6HcYGObkUkmHp V9m0E2Bc6SnWaoaSBhXG2e TlSzYKt5B8HsUwu1VJJkjZ umXR4qyJZb ZEifIx8loXqyoOxnFH9yUK Rwdlxfp360XtQpn9pmGRAz gLDsTJcvZJN8O75tk1B3QV MwMDAwMDA7 uCJ9gJ0ypCbtjfanjTGycE fdnjGewLygMWirGOeyN077 DFWflFlqWiKFOfv0C0FuLz d0VSKrrMnk RO5hgNAoDBpzGw7lmLvnnN suPV0xTQCrkefuc045KaVt k9upXVGibHOiUUkoNOH7Q3 5tn9R2QPFs FIVpZMK0vHJ6kA9mvUzhiv ogbGVmdDsgdmVydGljYWwt XQeiY444RNMkmDqjZu1MZc v0L9EhZaf3 SRHjcMbiJU6wfCYmXLeaFf 5bhEqimJzxDW0aDNLrfkky l719MzAfb1maYUVmwZTjTX buNWC7X98b a8V9IFItLBAkTXY6sPB2bL 1hbGlnbjogbGVmdDsgdmVy kKhrRBykBYkpW907LNMqyE snPlBheWVy OjwvdGQ+IE46vw60O4WbRq fxEsy8YXAtKTO4yBR7bN7f WIWyBZaij4D3sQI3E7Cbdx Cflv7bq5uy YXB (more content not included)... [facility] Consultation/Specialist Note on 01-11-2022 Consultation/Specia list Note [id number]-10-2022 Consent Forms [id number]#[id number] [facility]ordon 01-10-2022 MAGR Intraoperative Record MAGR Intra-Op Record Summary Primary Physician: Ambrose Rodriguez DO Finalized Date/Time: 01/10/22 11:08:45 Pt. Name: MIRNA QUEZADAO.B./Sex: 1950 FEMALE Med Rec #: [id number] Physician: Ambrose Rodriguez DO Financial #: [id number] Pt. Type: D Room/Bed: / Admit/Disch: 01/09/22 [...] Role Performed Surgeon - Primary Anesthesiologist of Pound Attendant Record Time In 01/09/22 16:20:00 01/09/22 16:20:00 01/09/22 16:20:00 Time Out 01/09/22 16:57:00 01/09/22 16:57:00 01/09/22 16:57:00 Procedure Carpal Tunnel Carpal Tunnel Carpal Tunnel Release(Left) Release(Left) Release(Left) Last Modified By: Aurora Collazo RN, Barbara RN Long, Barbara RN 01/09/22 17:23:23 01/09/22 17:23:23 01/09/22 17:23:23 Entry 4 Entry 5 Case Attendee Duyen Medina CST FACULTY SUPPORT COORDINATOR/RANDYASavanna FACULTY SUPPORT COORDINATOR Role Performed Scrub Personnel Parking Lot Supervisor Time In 01/09/22 16:20:00 01/09/22 16:20:00 Time [...] By Aurora Collazo RN Scrub 10% Povidone-Iodine Marvin Prep Area (Im.270) Elbow and forearm, Hand [...] (more content not included)... Normal [facility] Anesthesia Noteon 01-09-2022 Anesthesia Note Patient: DANI QUEZADA Age: 71 years Sex: FEMALE : 1950 Associated Diagnoses: None Author: Clint Bernal MD Postoperative Information Post Operative Note: Operative Day. Anesthetic utilized: Monitored anesthesia care. Health Status Allergies: Allergic Reactions (All) Severe Augmentin- Angioedema. Problem list (past medical history): All Problems Cigarette smoker / SNOMED CT 932133996 / Confirmed Diabetes / SNOMED CT 243545256 / Confirmed H/O Parkinson's disease / SNOMED CT 424352727 / Confirmed History of heart attack / SNOMED CT 9996428452 / Confirmed HTN (hypertension) / SNOMED CT 8779735117 / Confirmed Physical Examination VS/Measurements Vital Signs [...] on: 01/09/2022 16:59 EDT] Clint Bernal MD [facility] Anesthesia Note Patient: DANI QUEZADA Age: [...] All Problems Cigarette smoker / SNOMED CT 249711874 / Confirmed Diabetes / SNOMED CT 662816484 / Confirmed H/O Parkinson's disease / SNOMED CT 290119674 / Confirmed History of heart attack / SNOMED CT 0127254511 / Confirmed HTN (hypertension) / SNOMED CT 2255789199 / Confirmed Histories Family History: No family history items have been selected or recorded. Procedure history: Cholecystectomy (45846737). Triple coronary bypass (613866290). delivery (6513309309). Comments: 12/30/2021 13:19 Yana Miranda RN x2 [...] pattern. Review / Management Laboratory Results Plan [place] [employer]hesi[employer]#(ASA ) physical status classification: Class III. Anesthetic Preoperative Plan Anesthesia: Monitored anesthesia care. Anesthetic plan, risks, benefits, and alternatives discussed with the patient and/or family. Patient verbalized understanding. [Electronically Signed on: 01/09/2022 15:07 EDT] Clint Bernal MD [Verified on: 01/09/2022 15:07 EDT] Clint Bernal MD [facility] Inpatient Patient Summaryon 01-09-2022 Inpatient Patient Summary [address] [address] Patient Discharge Instructions Name: MIRNA QUEZADA : 1950 Patient Address: [facility] [address] [facility] [id number] Primary Care Provider: Name: VILLA NICOLAS After you are discharged if you find you have any questions, please, call [phone] ext [phone] to speak to a nurse. Discharge Diagnosis: Left carpal tunnel syndrome Prescription Information: If you have been given a prescription for narcotics, seek immediate medical attention if you have any difficulty breathing or any sudden status changes such as confusion and sleepiness. If you or anyone you know is experiencing suicidal thoughts, mental health, alcohol and/or drug addiction problems; contact the [facility] 16/10 Crisis Hotline -[place] [address]28. If you received any narcotics, sedation, or [...] or sign any legal documents [facility] would like to thank you for allowing us to assist you with your healthcare needs. The following includes patient education materials and information regarding your injury/illness. MIRNA QUEZADA has been given the following list of follow-up instructions, prescriptions, and patient education materials: Follow-up Instructions With: Address: When: VAZQUEZ COATES [address] [place] [address], [address] [place] [address] Business (1) 01/18/2022 11:30 AM With: Address: When: VILLA NICOLAS FORMERLY [facility], [address] [place] [address] [address] [place], [place] [id number] Business (1) Medications During the course of [...] oral t (more content not included)... [facility] Postoperative Record [facility] Phase II Record Summary Primary Physician: Ambrose Rodriguez DO Finalized Date/Time: 01/09/22 18:22:17 Pt. Name: PILARMIRNA./Sex: 1950 FEMALE Med Rec #: [id number] Physician: Ambrose Rodriguez DO Financial #: [id number] Pt. Type: D Room/Bed: / Admit/Disch: 01/09/22 12:18:00 - Institution[facility]Care Text: Patient is free from s/s [...] Signed By: Laura Lepe RN [facility]/09/22 [facility] Preoperative Record [facility] Pre-Op Record Summary Primary Physician: Ambrose Rodriguez DO Finalized Date/Time: 01/09/22 16:37:48 Pt. Name: MIRNA QUEZADA /Sex: 1950 FEMALE Med Rec #: [id number] Physician: Ambrose Rodriguez DO Financial #: [id number] Pt. Type: D Room/Bed: / Admit/Disch: 01/09/22 [...] consent correct. General Comments: [facility]. PT denies cp, sob, cough or flu like symptoms. Pt denies pacemaker/defibillator or sleep apnea. Finalized By: Aurora Collazo RN Document Signatures Signed By: Aurora Collazo RN 01/09/22 16:37 [facility] POCT Glucose Levelon 022 Glucose [Mass/Vol] 118 mg/dL Normal 74-118 [facility] Comment on above: Performed By: #### [id number] ####[facility] (DEFAULT)[address] [place] [address] Patient Handouton 01-09-[address] COLON POST OPERATIVE CARPEL TUNNEL INSTRUCTIONS SURGEONS WRITTEN INSTRUTCTIONS: -Keep your hand elevated above your elbow for the first 24 hours after surgery -Wiggle your fingers frequently while awake -DO NOT lift heavy objects or platform builder forcefully with your hand -Change your dressing [...] or concerns, please call the office at [phone] -Follow up as scheduled [facility] Progress Note - Nurseon 12-24 Progress Note - Nurse Spoke with pt and informed her to be here at 7am and NPO after MN, she verbalizes understanding. [Electronically Signed on: 01/06/2022 12:05 EDT] Itzel Dubose RN [Verified on: 01/06/2022 12:05 EDT] Itzel Dubose RN [facility] 2019 Novel Coronavirus (CoVI D-19), [facility]DIR[facility] LCon 01-05-2022 SARS-CoV-2 (COVID-19) RNA INDIRA+probe Ql (Unsp spec) Not detected Invalid Interpretation Code Not Detected [facility] Comment on above: Order Comment: [id number] [facility]#[phone] Result Comment: This nucleic acid amplification test was developed and its performance characteristics determined by [facility]. Nucleic acid amplification tests include RT- PCR [...] detected) result in this assay. Performed At: [facility] [id number] Birgit Andino PhD Ph:[phone] Performed By: #### [id number] ####[facility] (DEFAULT)[address] [place] [address] Coding Summary 01-05-2022 Coding Summary HTMLBase 64 SrjfyqbjUAr3vRg+PGhlYW Q+RT0SHLOpX11nqLTqbJ7A R7lHUC7KHOWFCFQEEJ4BEQ 3taRZ7WZxtF7HsauLg XbcuwCEnMB88JXd1NMQ8bI seIIoldI0rfPRzW9b6CcEn RT02tY49QHvnURAqYxZ6Kr ZpbjsgbWFy C9pdJlRsqXPmDzh+PHRhYm xlIHdpZHRoPScxMDAlJyBz tXytDG2lZt5wFIMqMRWepG xhcHNlOiBj j6akAEMcRSquNP5liNnvL8 VnmVL5DYBfc0l8Rv43dTO+ ICYjGHK4yPzxQWsqq440Dw Cxl5fwTCL6 rEYeHHhmPTR6S60us8H6KC NdKYSoJIR1tEA8qP8boDnv slqhS6PbwVVyNgM4YAQ4gV CggO3lfBcx hzmqoA2pKki+G84YMS8NJI BOVD2RBrw0M1EqSbwqaAG+ AV50BOIaJC21lFVukQTyb1 cyfRc6XwZn QUIkFYA6nPkrWKhla0DoNF UvS82gkDJcz6U0MTHpiDmy pMIcHmCenKA0fV9pRYlzpq jdh0opapow Jakok1kifo14iX43S65wAI yxSYHqYPD0QQWeMEKbhWny dc7wmA8oKz0+WGpgm0tiy2 brnIj3XlDj WABxbyQjsHopNHM9s2VuLo 03P6OedGzky3QmWnn1dk85 aUOau2B6dBF8EXowFJVgxU 9bQOlvTbK0 JPOnHmSooU30sRQgPZamGn 2zkRzndFfkMK5kCKAkqnvz JVKauA1yJVAoeVTzdYjzCN 4wNTBpbjtm e875SfFsAIX5ZUXtjQJnO2 ZfgW6pSiJyCYOlZZJnN1Cv bIKoRMjvM939XBbbTdT1VC GpppHaJ0Ru ABOraCaeCsV0p9O2Gb8Df3 AroxybDTB9OWyeVLYmAnLh TaSpMoQ5F5GxKvk4ATXqiE fgUB7kJ4Ca LYGqxqwpurifnHK9GUOrEL GwvS89rTOyWOuuOw4to2I6 y681TKVrGIHpyG12Qj1njX ogMTBwdCBU mF8vtahje9fdzvqdHbFwKD HnMWk1YWk5JHLscZsdGpCx JMC4JgZ4JPI7hRQrbZ4qwS keyczlxX4g Oyc+S57uzY9gSLI3HSX5ue ufYSHisgZhXU87GY72O2Mx PjwvdGFibGU+PGRpdiBzdH mtAY7rGzSy g8kum2ZcDEbhX3ZvXUTkPA siXjp7WMJyRWR2hXT2gO4d VXYbIAfps6C9mSQ8S9Lnmi Spwq5go5dm MTMjKIzcZ91xsTDkf0Z1CS EpdIL5IYDyuMhbRdDxxS07 Oyc+EHSbsMwft4TwSjerp4 amx7acaEq4 IvZhRNKihiZuwPnhZUX5r2 ClCa01I12fUZbmGPYiEVCx HSCfKRIejMhfds1kmS1bVu 8+PGNvbCB3 uEV0qN1rVAAwBsT3NRhgX7 19DxQnjEGvJljwd9wqy6hr gPj7TyAsMDDqefOheQbtAY F0w9TaPn11 Z77zYLdbFGDeKIAvOHTtHZ NuwAlmkb2lhI3zOk4+PC9j z1naqv51yD15tYK+PHRkIH C0yBvoNBwk ITNbkN3jWGptKrA3WKDaTp XzeT10rYEvDFuvKl9uxOnh pHpcJB6mTKGzrxcni255Du Uhe6qfSDHc cKAnJKfaKDM9V28uz8A9IW UpQLBoTIX5sTD3tD6sfGvw bjogbGVmdDsgdmVydGljYW knDBvfY913 IHRvcDsnPlBhdGllbnQgTm OlCQs0G8DaLrs0QLFtxNsi WT0nzHZcLGzvIc7wrKzeeI xaEW9iHIMt gwcwn907ZgMsc3fpUSPsxW OxSAnzUSD1I92ue5W4VZFy PEVfXVR1kNP0cQ7daEowbu ogbGVmdDsg viXowJzyVRwyNDxmO066FK RvcDsnPkJpcnRoIERhdGU6 EZ08GX48zFQbt3H4mSA0A7 BhZGRpbmct admrmEF0TXEzLRXdaO63Dn 7ctFfxYf2qGODrAMD3DMXd nOCcD1XfaT4rBwYuJUYkEM HlE9YzoMDm ZKzeK967XFkkUeD5PZVtqt HxY0GjVXXteSovLlE9s1D0 Vs2SX3A9WC38WD88oPAuo3 B1sHD2J2Ay ZZLgvjnnvrfwbDL8VJDfDO QqgN44Pz8dkYhaPh3dDYJv EIR6BCFglDAtG1FqaT7mDt AjMDAwMDAw F0QqkPXgRFgwV828NRixFg G3SAWbbnWfJ4BfJDUjnJtz NmP1l0K4Jh5DKCb2OW39XB 58rLDpr5H3 cPT6T3BuZNKqggsmzmxqsO E6CENaDIEdlW94Js3vvQfs Dz7jOHGaBMT8WCJqkTVhI7 YaxF2uLmSz XNEwOVKcD0GuzKMgUTuyF7 00MFwxOsD8XIMnvpIuA0Bd LKUplFdyNdO2o5D2Ee2SZS QyIS38VRS4 uSI4FH99FK57Q1VvEqwsoQ FibGU+PHRhYmxlIHdpZHRo LOsaBCFzVyZvrMxiLM5zRp 9yZGVyLWNv mCothDImMqBva5zwVKFtGT oxST9thIoxQ7LbiGL1AEQs z6k8De46G98yY9EucBL+PG JiePD0uZI5 pQ6uOxJrBzW5XZchU724He BaqGHcZccpz5bqr3qmjCq9 TiU5RIGhniJfmZjgOCS5o3 IzQc88G52m IHdpZHRoPSIxNSUiIHZhbG pfxe2ldT2uUr6+PGNvbCB3 xEF4mZ9sUcXjEgS5AUfgH8 49InRvcCIv Fgtru9bll3omsIi1VkNpOD UwaqPnkPepRMV5j2GfWj01 L6PvpXhmn6YyGkj2se28oK Obv6X4xVT5 N4LhSBSfzasaqNAhyIleNQ 7iGWSvnxbsAUIqzR2fNHYe S4d3EvFcKtR7AAxsY3Cibm R7KTHmoHPr SWxtTOP4U78ja0R1GZFdDV QtLLS2bLY8eU8agRpefpgq bGVmdDsgdmVydGljYWwtYW ecH019RYLf iAcqSMVpgZ4vMUPzgENwgE fzQB3qDSDgxjmdCtEHUPrA LCBCUkVOREEgVzwvdGQ+PH JbBHI9iKkx YDzvLGLxvB8jYGPaI5o9Ce XsSxP4VTecU3XrPYHmlwhk Wl11zX0bByTdMyH0HOytM0 VbfkD2RHGv xAVqBRcrLJW6H63qa3F9RQ UvQMPjDFY0tEW4cA3aoLlb bjogbGVmdDsgdmVydGljYW rhCWjvK021 YREzcWfbOdR4KvP8ZhC4LZ D0B5NsOeq8CEBgpHwpXH6o yMKnEKopAe3rlJpstNiaNW 4wNTBpbjtw IYLoiY5aJYSukPSqzPdbYU 0vDPOqkeerw788RhZhSYO2 BIVvcAQjH5JxxF9eJpWyAW IiLNJzC0Uw kHApCLehM840SRxwNoB6TE TugwMcY9WvNKMrwJbcHbA3 f0Q9Hl39ZHAAOKNnxjjalZ Q+PHRkIHN0 uLybKGbpEHYrdM9uZATjH0 v2IdJoVvU6AJnnX0NmCMLo cknzSf13wD9jZpGaAnK2TL grA9WzjoX5 OXGxrVTiHRnjQXB9W05jw3 U6QESqLEJtLHH0aZJ1eA2e bGlnbjogbGVmdDsgdmVydG ljYWwtYWxp Y815LCVfuHcyOfZFJHMDCE wvdGQ+KIPdGJC2sPkzVPbj RWHokJ6qEWErF6c9MsBdUl I8CTqrE7Up SAMzmvnaNf80lD0tQyPcKi K7JKkwE7PgemO5LGLlbJXz LPkhXII6A52oz4Q6LELuUY AaYXC7kQV9 tL7xtRuidbudxIYekHxvdd OgjEolDRddXMkvC140WRLn kZmmXt4RXZ11RX83T8GiUe wvdGFibGU+ PHRhYmxlIHdpZHRoPScxMD QpUlXjdJmhOF5bVf8hXGLz AEFgtWvqjSAbSeZcx4etXM JiDTmdPA5s gRtaQ4ZwnNU7MLUaa1t1Do 72O95qQ3DrfXH+PGNvbCB3 vYT5xL3lHwDnPxN8ROmdZ4 49InRvcCIv Icddv2ihx7jtxZd0DhAqAD ZtnjUbcOevUEN6j7ZnRo31 C97iQTflQFAdJLQsMKAaEY VurPqxtv3y wV9rVi3+ODGfuBZ5cOQ8sM 1sBbViWeR4TIizO931NqJy cZRsDvtoZ57yX6RmqUH+PH OpLmr7MEXe eMztKF8ejYCgVCdgRu5bBK O2SuJiEnLxWQtjZ6YnUIHs jogvmqvtrOR8EXLmXNYdnZ 67Qa3lcYcd Am5iXIWzSTG3WTGbeJRmV2 OeyG7rOzGsXOEfXICfM2Bi mTPtSMplP624BDwgFbS4AP IrtaCfB1Ab MTAlfBwqXmM0a2J5Dh8RiF zuuQBhHA4zJjOaMUp4J2Jl Qim3QHKhwYhqKQ5ruPZyKC kbNy1mmFun xEpaFJ8bCSHtzmxci038Zo Gfr1moVKQzdZKyCKvsAXS8 Z42iu0U9UCAkUKAbHAE9uV E8eI1zwVat bjogbGVmdDsgdmVydGljYW ixGEzoT787LHKwgIfkGdRF Voz7F8TjFit6ROTxuHoyOD 0ncGFkZGlu Df5lyHtnsSytSY6vNKMbxo pku616JxJkq0hhTIJjpBJc BLkrIJB2X65tg8O6PSSmKN KhOPE7eMI7 mA0wiLeqniqjjGAkcAybrc WriHhbLTpkTTfmF232MRFz lArgUp1IJjw6U0GcYel3LA DpnFzgCQ4r yVWhAHabMs7srCwoyFaePM 9wWYQrtdqug153KcLkh8xs OYGkaCXnNNhkZRT4B28ne1 T6DQNaUZGn ZGL1lLI3qL1zvXmuujiavS VmdDsgdmVydGljYWwtYWxp A122SGZsmIksBnAblSHnGo wvdGQ+PC90 jp10B0GzXfswKjz6VXSwNC B1fGB8iS6oWNQcTSijp0E9 jVJ2O5VkqePilo2uu8teHN QdBDsrS15d bGF (more content not included)... [facility] Coding Summaryon 01-03-2022 Coding Summary HTMLBase 64 RvrxqxdhBGf1uXc+PGhlYW Q+QU0LYYBcD05lkXOriE7O D3mMEW0BJCKZKSXVIG2HVW 0bsPL3HWkcP6HjyqWl GchbeXHfKA06TDs9JAJ8kT bwJOmppH9tgTMqG1s1SyMd KQ42vM42OQahQAGaLpO9Yq ZpbjsgbWFy E9bkFqHveULbLtg+PHRhYm xlIHdpZHRoPScxMDAlJyBz jDkfRB2sTq0bBLKkOJYyzW xhcHNlOiBj d1iyFLMtTNdaYJ3qyDrlX3 QfvLP8OXVvm9t0Ne01mFR+ RSFqKSM5kEbdDLbev101Bk Ftm5jrISC2 vUFdQVntIVY4S96ui0P7AE EqEVNeAEP3qKI2wK1tjWju ienuS3YmtDJaQxG3TCJ6eY GqfI5nfDpy zyvkpQ1cHcd+P08SFF4IDC QGJM1CKzz8Q8TqVbaapGO+ TV84SKViZX70eYDftHCwz9 xpjNh0VsOf OIZlPEC6kXgvTZtfd8YxIN EuX25ojLNxb0C3LFGbdAln fWDqNxOylIZ1lW0kDTawcv udw1sgehnv Iyeef1bztr42hP25K02mUU drYXIaTTC2BIZyUGFhzHzf ik7ojU7aKi4+XVrsv7yrk0 jrpEp0ZkUd ZQHtjcRnvRmlRAH9p7RiXd 65V5WmdJaid6OuTzt8eu46 oHZna3X5bAE9DTpxPRFacC 3wVZtmOfH0 MELqOuYwaD33kZAeXQwvPn 2wwYghwAduTH3dXHRcasxy QWGkeO0xBVDaqGFxwEvvRZ 4wNTBpbjtm x509WtOeIGH1DBAgkYIaX3 KqbM0uLcYiXIXzNRCuS6Ic vDWtUHjyS104KGvuOoW5LU NupfOpZ7Uh UYVsuWtoXeP5k2Z0Tc5Pz4 SsgwymVLH2ORerRTNoVpDp TaZgWaC7T9MbLeh8TMRrcR nbRZ7zV0Yv LPQamxpcjkqruDF0KAAgCV TphK09zNSkDNtfUh4ka3N0 n717DEQvYRThxZ61Bi4daX ogMTBwdCBU mS3ovsjte5flaygyVuXeWU TxFGo5ZRy6UQVmpKdbRuTt PZK4TrA6HFR1kOPbyJ0vxV rweqcboU0c Oyc+W59qpG3rFGD0AZV7xq lpZFSifkRtLL45BO72P8Ur PjwvdGFibGU+PGRpdiBzdH vfUM0uFoNj a1mhw4SmGRlpR7FxSOZuUA ewRio7IPRpFOI0vNB8hD6e VVRwJLcrz0Q6zCY8V4Jtnm Gaay3lf1ob VMDaKBfmL13ppHWmc6I4WY SmjCZ7RHWkxOypXiOtcZ89 Oyc+UYRhpHheg4BhQhbbl4 ofl3iymZe8 OlXzXQGppiDifAdgNDB4w6 MsWr82C73lTQpiKDWzFJRl LXYlOVGrvTnrvp1ayN6uAp 8+PGNvbCB3 pBZ1qI4pDZMyVrU4ZCaoZ7 47VqMryHEbCudwx0dfl3yt eFk4KfCcBQKoolGziKazTC U4q2GbKs49 F61lYZcgVVCaPRBqLRDlGI OkvFhwjm7szJ8rNy0+PC9j k0bxwx89sT48bUT+PHRkIH T1yNsgLNku TXVbgQ5zJEnaSzH9DXFePv TgmG96rZSdANevHz8xqZrb tNozWZ9cISUqnzmix177Ee Got1ckYTYf gPAoUPgwNAN2S09nf5K5LH XpJAKxSGJ1xNT2xK8dsYbx bjogbGVmdDsgdmVydGljYW naTXdrY381 IHRvcDsnPlBhdGllbnQgTm RiMNe1N8JvHmx2QUQugSka HB4wyQYvYCxtEb5lfOfskW zyGY8fXXQz nxdmn776YjWza1uyJYTujH LxWKfiOKB1W90nw0W4FOYz DECpYYP1hWP7fL4pwTwitc ogbGVmdDsg veRmzHnmRXruCRgqU298XK RvcDsnPkJpcnRoIERhdGU6 YA59ZK92mDZak4E0bMV9H9 BhZGRpbmct vxpppOA8HPOjPQYsfG33Bz 1nnUllGo3bRTBiPBZ2NMDt pSTzZ7EysH0eCwLzAKNwCD MvA9PcfEMd XMofA840XWtrMdM6MOOmyn XuI2DuFCJjzBcvBoX4f8H5 Yb3GZ6M5ML31KF37cPXor6 C8eXU0H2Ks FDLxiorttgsiwAF0EILzRJ SbyB19Wl6rcOmkVx2rOIUd FZH0EHFwqJTsJ6McaQ0oKa AjMDAwMDAw L4VljKYaXPxvT393AHdrMj O0TJCzglHiP6AfTPNhrEwk AhU3c3T8Zh9XWIa8MI73ON 07zJNzi5S6 oEJ0X3BdUCDrqnxcsnqfyK X5LROzLVZdxK06Ww3zrNcl Sy0mGJOcTMW1CVFgtLRiU4 YlfP5gGuPb BQBpWTQlV3RtrJTnGIwkQ1 69TWidWoU4ZSFqwnAiK8Uw FSKwdShsCcP7n6F7Kc3JGK ZsIK15WQH5 vGB5NO59FV54D6TaYljjiU FibGU+PHRhYmxlIHdpZHRo BHtjIBVrFjGdbNiwJJ2qRi 9yZGVyLWNv fBofdIIgOvXfv1rqLTUbXT fvOC5elKzlR7SylXA3UUTm r0k2Vf62K83xY5TfhLF+PG TfpQK2vZA0 uG2nPpRaUeU5IObvG154No QkpWPdPgeiv9onz4wvcTv5 JrD8IHEihgVojRkvLBD8f2 JgEl80F42a IHdpZHRoPSIxNSUiIHZhbG qapn8cyO2yDo6+PGNvbCB3 bIE2cV0yObMuMcN3IBhuJ5 49InRvcCIv Ptnce1prw7qyoRm4JiYjFH UfzhPlwMoxXZM4l1RsGh91 I0LjdIedg9QxAbc2iv29hV Umn3U1gRO0 O3HfATSweltkvPMkcAyhHC 5pWHUidtogJPEveL0zVJYl C6l7FsOqIxF1UEwyL8Otqe G8XWYyuCMa PRvpWFU0V03bw5F5LXVqOT ZhZDW5hCU5hE2wiKqlzxso bGVmdDsgdmVydGljYWwtYW gzA249JFNu bIppSVNpvC4sGTKolMWbtN flME3nAJKcfalmQxLNQXhB LCBCUkVOREEgVzwvdGQ+PH LtQEM3rVcc HMxrNNAbsC7sFIDaB0x2Tn RrKuH5ZNrhA4VmLFKsoaub Nm37wH3wRiXmXeE4BNgsI1 WchmQ5JFZd xRHlYFerQAR2S16py8A3VR HfSOLcXPJ7lPV5dQ2zrXlw bjogbGVmdDsgdmVydGljYW bvPTcnH257 OCEncEokTmZ3QlG0IdF0VD L8X9XnVir1SMYkoBzzDT5h iXOeZJufVo2zzExutAncLE 4wNTBpbjtw MCCkxB2nGUMxaXIoqLirED 8eBRHzxoloa354XoNtPEH8 QFCdhZMyK3QfdM2aRnRyGD LpQABiG2On oOGnPHojO594BOlwRoZ7GU HalcZpJ0VhXERryXqjVjM0 f8Z0Ol81EFSCSVEonwgxgV Q+PHRkIHN0 pYveRXeeADMluV5uDRZxW1 d3PeApJqC3CXlxY9NbLCSg wamsOb85fI5jXbOxDaY0JR hmH0JnjlY5 GTBtuGHxAMftPXO4U19qd6 G9PHCeAJHkUBH6jWX1gR2t bGlnbjogbGVmdDsgdmVydG ljYWwtYWxp F979ZIBebOzbFcCELCXTWI wvdGQ+ZJCdQJM6vMqkEOsr JQRpsT7yREXpC4b9CzYyKa D1NLevM3Qz IGUuupvlRn54zQ8sInFqBk I7SWehE6RzicS1JQQnmZDl DZhtZUV5M35er7J6FNQmBK TmYWX2iJT6 mC8qeHnrgxzstDYjmAdtti MqbVwqAKspOAncD808YIHq yAuySa4UUU14BH18C4MfMa wvdGFibGU+ PHRhYmxlIHdpZHRoPScxMD PqZnJkoYcaPQ9aGv9fOTSl LCAkmExmjJNsFcRkg4zvHN SvSCtpXG2g hEmsE8TcpKU9ABIkp9b5Lw 18F26zS9DhuFL+PGNvbCB3 zOE6kP8gKlVqGxC3GWfuJ0 49InRvcCIv Dpvdh6uhc8qprFm7TvEbKF OfozSrvSiqFVO6o5WgKr82 S17mXQqkMJFjDXBtFVBaEY KcnFdtwg5e wF9hZl0+LUEdqFN0kUW9lK 0wXfVzGiT9JKxdV269SiFt aYOcAguzK70qJ2FocSK+PH MjDnp9HRPr aJynBS4mdSXqNVyrAw0bBQ H8OaUkEcYgJNseO1VaFGSq gxqscducgLB3AYKsGPOagJ 92Dd3jpInn Au0iGHReQFL5JFWteYYnR9 UrxA2tLtRbRLBdYEDrG9Uu xWSbBXjzV636FKtqDtK6JA NoieUbE1Xa VOWyqBomKqD7q2U0Vk4PeN cfjGKcGU8bXwLzLBh8X6Mr Jjb1AGKgoQhgOO2onQJyNO vwTh9khJhl uAacEI3jIVIyzrgwc315Qr Mxt8jeZDTqoIHhFKpaZFK3 O71ao6P4KRKbOXEsUMO3fV M2fD5mjFob bjogbGVmdDsgdmVydGljYW vwDMtwY708TMQlkPwbWrGK Udn1M4GwGwr2EOCddOozVS 0ncGFkZGlu Xp4nfBtmkJvfXJ2mJCNpzj gbo856EqFqc9yoXUXtpWWn PGwhRKW4N39xh5U2ZEPjKU TiPUM7bXG6 bX4fjQszvvrcrSFcxUomye IluRlrQHavKLnqT177LYBu fThhOj2AMng2Y1JzDxr0FQ WpjKljCR9u aUVbIMqhPy6orZlnyCasAY 8rDODgmaqmr186VwCsi0vm WQXjuFJyUVhlRID3H08hv8 R2MTEqCPPq MSX3oYI8wH4hgAlhywknsO VmdDsgdmVydGljYWwtYWxp N677ABUioNfwFwLdpMKzWz wvdGQ+PC90 gd73N3XoVoosWtc2TMIwTO J5jWO7gX6zJXMoOSogu0U0 yIX9F9AnunIpub8lb3hwNF EoRUclR40g bGF (more content not included)... [facility] Progress Note - Nurseon 12-24 Progress Note - Nurse PAT review done per Dr. Odonnell, no orders received. [Electronically Signed on: 01/02/2022 15:09 EDT] Yana Samson RN [Verified on: 01/02/2022 15:09 EDT] Yana Samson RN Normal [facility] .Auto Diff 1on 12-30-2021 Auto Hart % 7 % Normal 1-12 [facility] Comment on above: Performed By: #### 1 [id number], [id number], [id number] ####[facility] (DEFAULT)[address] [place] [address] Baso Abs# 0.0 x10 Normal 0.0-0.2 [facility] Comment on above: Performed By: #### 1 [id number], [id number], [id number] ####[facility] (DEFAULT)[address] [place] [address] Basophils/100 WBC (Bld) 0.3 % Normal 0.2-2.0 [facility] Comment on above: Performed By: #### 1 [id number], [id number], [id number] ####[facility] (DEFAULT)[address] [place] [address] Eos Abs# 0.1 x10 Normal 0.0-0.4 [facility] Comment on above: Performed By: #### 1 [id number], [id number], [id number] ####[facility] (DEFAULT)[address] [place] [address] Eosinophils/100 WBC (Bld) 0.6 % Low 0.9-4.0 [facility] Comment on above: Performed By: #### 1 [id number], [id number], [id number] ####[facility] (DEFAULT)[address] [place] [address] Lymph Abs# 3.5 x10 High 1.3-2.9 [facility] Comment on above: Performed By: #### 1 [id number], [id number], [id number] ####[facility] (DEFAULT)[address] [place] [address] Lymphocytes/100 WBC (Bld) 36 % Normal 14-48 [facility] Comment on above: Performed By: #### 1 [id number], [id number], [id number] ####[facility] (DEFAULT)[address] [place] [address] Hart Abs# 0.7 x10 Normal 0.0-0.8 [facility] Comment on above: Performed By: #### 1 [id number], [id number], [id number] ####[facility] (DEFAULT)[address] [place] [address] Neut Abs# 5.6 x10 Normal 1.5-9.2 [facility] Comment on above: Performed By: #### 1 [id number], [id number], [id number] ####[facility] (DEFAULT)[address] [place] [address] Neutrophils/100 WBC (Bld) 56 % Normal 44-88 [facility] Comment on above: Performed By: #### 1 [id number], [id number], [id number] ####[facility] (DEFAULT)[address] [place] [address] Standardon 12-30-2021 eGFR Non AA >60 Invalid Interpretation Code [facility] Comment on above: Performed By: #### 1 [id number], [id number], [id number] ####[facility] (DEFAULT)[address] [place] [address] eGFR AA >60 Invalid Interpretation Code [facility] Comment on above: Result Comment: Photographic Reproduction Technician abigail Kidney disease could be indicated at eGFRs of less than 60 ml/min/1.73m2. Kidney Failure is indicated at less than 15 ml/min/1.73m2 Performed By: #### 1 [id number], [id number], [id number] ####[facility] (DEFAULT)[address] [place] [address] Anion gap [Moles/Vol] 15.0 mmol/L Normal 5.0-19.0 [facility] Comment on above: Performed By: #### 1 [id number], [id number], [id number] ####[facility] (DEFAULT)[address] [place] [address] 80698 Calcium [Mass/Vol] 9.2 mg/dL Normal 8.9-10.3 [facility] Comment on above: Performed By: #### 1 [id number], [id number], [id number] ####[facility] (DEFAULT)[address] [place] [address] 98778 Chloride [Moles/Vol] 104 mmol/L Normal 101-111 [facility] Comment on above: Performed By: #### 1 [id number], [id number], [id number] ####[facility] (DEFAULT)[address] [place] [address] 13360 CO2 [Moles/Vol] 23 mmol/L Normal 21-32 [facility] Comment on above: Performed By: #### 1 [id number], [id number], [id number] ####[facility] (DEFAULT)[address] [place] [address] 39167 Creatinine [Mass/Vol] 0.51 mg/dL Low 0.60-1.30 [facility] Comment on above: Performed By: #### 1 [id number], [id number], [id number] ####[facility] (DEFAULT)[address] [place] [address] 25743 Glucose [Mass/Vol] 103.0 mg/dL Normal 74.0-118.0 [facility] Comment on above: Performed By: #### 1 [id number], [id number], [id number] ####[facility] (DEFAULT)[address] [place] [address] 30820 Osmolality 273 mOsm/L Invalid Interpretation Code [facility] Comment on above: Performed By: #### 1 [id number], [id number], [id number] ####[facility] (DEFAULT)[address] [place] [address] 10533 Potassium [Moles/Vol] 4.6 mmol/L Normal 3.6-5.1 [facility] Comment on above: Performed By: #### 1 [id number], [id number], [id number] ####[facility] (DEFAULT)[address] [place] [address] 17197 Sodium [Moles/Vol] 137.0 mmol/L Normal 136.0-144.0 [facility] Comment on above: Performed By: #### 1 [id number], [id number], [id number] ####[facility] (DEFAULT)[address] [place] [address] 06650 Urea nitrogen [Mass/Vol] 10 mg/dL Normal 8-26 [facility] Comment on above: Performed By: #### 1 [id number], [id number], [id number] ####[facility] (DEFAULT)[address] [place] [address] Urea nitrogen/Creatinine [Mass ratio] 20.0 mg/mg High 4.6-16.2 [facility] Comment on above: Performed By: #### 1 [id number], [id number], [id number] ####[facility] (DEFAULT)[address] [place] [address] CBC w/ Auto Diffon 2 Erythrocyte distribution width (RBC) [Ratio] 14.6 % Normal 11.5-15.0 [facility] Comment on above: Performed By: #### 1 [id number], [id number], [id number] ####[facility] (DEFAULT)[address] [place] [address] Hematocrit (Bld) [Volume fraction] 49.5 % High 33.7-40.4 [facility] Comment on above: Performed By: #### 1 [id number], [id number], [id number] ####[facility] (DEFAULT)[address] [place] [address] 00031 Hemoglobin (Bld) [Mass/Vol] 16.8 g/dL High 11.3-15.9 [facility] Comment on above: Performed By: #### 1 [id number], [id number], [id number] ####[facility] (DEFAULT)[address] [place] [address] 82092 Instr WBC 9.9 x10 Invalid Interpretation Code [facility] Comment on above: Performed By: #### 1 [id number], [id number], [id number] ####[facility] (DEFAULT)[address] [place] [address] 72340 Man Diff? Auto Normal [facility] Comment on above: Performed By: #### 1 [id number], [id number], [id number] ####[facility] (DEFAULT)[address] [place] [address] 84575 MCH (RBC) [Entitic mass] 32 pg Normal 24-34 [facility] Comment on above: Performed By: #### 1 [id number], [id number], [id number] ####[facility] (DEFAULT)[address] [place] [address] 14007 MCHC (RBC) [Mass/Vol] 34 g/dL Normal 26-37 [facility] Comment on above: Performed By: #### 1 [id number], [id number], [id number] ####[facility] (DEFAULT)[address] [place] [address] 86837 MCV (RBC) [Entitic vol] 95 fL Normal 81-100 [facility] Comment on above: Performed By: #### 1 [id number], [id number], [id number] ####[facility] (DEFAULT)[address] [place] [address] 31711 Platelet 138 x10 Normal 138-427 [facility] Comment on above: Performed By: #### 1 [id number], [id number], [id number] ####[facility] (DEFAULT)[address] [place] [address] 09199 Platelet mean volume (Bld) [Entitic vol] 11.5 fL High 6.3-10.2 [facility] Comment on above: Performed By: #### 1 [id number], [id number], [id number] ####[facility] (DEFAULT)[address] [place] [address] 07221 RBC 5.20 x10 Normal 3.70-5.30 [facility] Comment on above: Performed By: #### 1 [id number], [id number], [id number] ####[facility] (DEFAULT)[address] [place] [address] 02170 WBC 9.9 x10 Normal 3.5-10.5 [facility] Comment on above: Performed By: #### 1 [id number], [id number], [id number] ####[facility] ([facility])[address] [place] [address] [place] ARTERY LEG BILon 11-26-19 [place] ARTERY [...] CHARY AWAD Date: 2021-11-25 17:16 Normal [facility] Complete Blood Count with Au to Diffon 07-14-2021 Basophils (Bld) [#/Vol] 0.05 10*3/uL Normal 0.00-0.20 [facility] Configuration Management Analyst Comment on above: Performed By: #### F E Prof, TSH, CBCAD, FERR #### [facility] [address], [place] [id number] Basophils/100 WBC (Bld) 0.6 % Normal [facility] Comment on above: Performed By: #### F E Prof, TSH, CBCAD, FERR #### [facility] [address], [place] [id number] Eosinophils (Bld) [#/Vol] 0.04 10*3/uL Normal 0.02-0.50 [facility] Configuration Management Analyst Comment on above: Performed By: #### F E Prof, TSH, CBCAD, FERR #### [facility] [address], [place] [id number] Eosinophils/100 WBC (Bld) 0.5 % Normal [facility] Configuration Management Analyst Comment on above: Performed By: #### F E Prof, TSH, CBCAD, FERR #### [facility] [address], [place] [id number] Erythrocyte distribution width (RBC) [Ratio] 14.4 % Normal 11.0-15.0 [facility] Configuration Management Analyst Comment on above: Performed By: #### F E Prof, TSH, CBCAD, FERR #### [facility] [address], [place] [id number] Hematocrit (Bld) [Volume fraction] 49.0 % High 35.0-47.0 [facility] Comment on above: Performed By: #### F E Prof, TSH, CBCAD, FERR #### [facility] [address], [place] [id number] Hemoglobin (Bld) [Mass/Vol] 16.8 g/dL High 11.6-15.5 [facility] Specialist Comment on above: Performed By: #### F E Prof, TSH, CBCAD, FERR #### [facility] [address] [place], [place] [id number] Lymphocytes (Bld) [#/Vol] 2.9 10*3/uL Normal 0.9-3.9 [facility] Specialist Comment on above: Performed By: #### F E Prof, TSH, CBCAD, FERR #### [facility] [address] [place], [place] [id number] Lymphocytes/100 WBC (Bld) 35.7 % Normal [facility] Specialist Comment on above: Performed By: #### F E Prof, TSH, CBCAD, FERR #### [facility] [address] [place], [place] [id number] MCH (RBC) [Entitic mass] 32.2 pg Normal 27.0-33.0 [facility] Specialist Comment on above: Performed By: #### F E Prof, TSH, CBCAD, FERR #### [facility] [address] [place], [place] [id number] MCHC (RBC) [Mass/Vol] 34.3 g/dL Normal 32.0-36.0 [facility] Configuration Management Analyst Comment on above: Performed By: #### F E Prof, TSH, CBCAD, FERR #### [facility] [address] [place], [place] [id number] MCV (RBC) [Entitic vol] 94 fL Normal 80-100 [facility] Specialist Comment on above: Performed By: #### F E Prof, TSH, CBCAD, FERR #### [facility] [address] [place], [place] [id number] Monocytes (Bld) [#/Vol] 0.5 10*3/uL Normal 0.2-0.9 [facility] Specialist Comment on above: Performed By: #### F E Prof, TSH, CBCAD, FERR #### [facility] [address], [place] [id number] Monocytes/100 WBC (Bld) 5.9 % Normal [facility] Specialist Comment on above: Performed By: #### F E Prof, TSH, CBCAD, FERR #### [facility] [address], [place] [id number] Neutrophils (Bld) [#/Vol] 4.6 10*3/uL Normal 1.5-7.8 [facility] Specialist Comment on above: Performed By: #### F E Prof, TSH, CBCAD, FERR #### [facility] [address], [place] [id number] Neutrophils/100 WBC (Bld) 56.8 % Normal [facility] Specialist Comment on above: Performed By: #### F E Prof, TSH, CBCAD, FERR #### [facility] [address], [place] [id number] Platelet mean volume (Bld) [Entitic vol] 12.10 fL Normal 7.50-12.50 [facility] Specialist Comment on above: Performed By: #### F E Prof, TSH, CBCAD, FERR #### [facility] [address] [place], [place] [id number] Platelets (Bld) [#/Vol] 166 10*3/uL Normal 140-400 [facility] Specialist Comment on above: Performed By: #### F E Prof, TSH, CBCAD, FERR #### [facility] [address] [place], [place] [id number] RBC (Bld) [#/Vol] 5.22 10*6/uL High 3.90-5.20 [facility] Specialist Comment on above: Performed By: #### F E Prof, TSH, CBCAD, FERR #### [facility] [address], [place] [id number] RDW-SD 49.0 fL Normal 37.0-50.0 [facility] Specialist Comment on above: Performed By: #### F E Prof, TSH, CBCAD, FERR #### [facility] [address] [place], [place] [id number] WBC (Bld) [#/Vol] 8.1 10*3/uL Normal 3.8-11.0 [facility] Comment on above: Performed By: #### F E Prof, TSH, CBCAD, FERR #### [facility] [address] [place], [place] [id number] Ferritinon 07-14-2021 FERR 36.8 ng/mL Normal 15.0-150.0 [facility] Comment on above: Performed By: #### F E Prof, TSH, CBCAD, FERR #### [facility] [address], [place] [id number] Iron Profileon 07-14-2021 %FESAT 21 % Normal 11-50 [facility] Comment on above: Performed By: #### F E Prof, TSH, CBCAD, FERR #### [facility] [address] [place], [place] [id number] FE 67 ug/dL Normal 40-190 [facility] Comment on above: Result Comment: Refe rence range change 02/09/2017. Prior reference range F 37-145 ug/dL, M 59-158 ug/dL. Performed By: #### F E Prof, TSH, CBCAD, FERR #### [facility] [address] [place], [place] [id number] TIBC 316 ug/dL Normal 250-450 [facility] Comment on above: Performed By: #### F E Prof, TSH, CBCAD, FERR #### [facility] [address] [place], [place] [id number] UIBC 249 ug/dL Normal 112-347 [facility] Specialist Comment on above: Performed By: #### F E Prof, TSH, CBCAD, FERR #### [facility] [address] [place], [place] [id number] TSHon 07-14-2021 TSH 1.430 uIU/mL Normal 0.400-4.500 [facility] Configuration Management Analyst Comment on above: Performed By: #### F E Prof, TSH, CBCAD, FERR #### [facility] [address] [place], [place] [id number] Vitamin B12on 07-14-2021 Cobalamin (Vitamin B12) [Mass/Vol] 216 pg/mL Normal 211-946 [facility] Specialist Comment on above: Performed By: #### B 12 #### [facility] [address] [place], [place] [id number] Comprehensive Metabolic Pane gaurav 02-28-2021 Albumin [Mass/Vol] 4.4 g/dL Normal 3.6-5.1 [facility] Comment on above: Performed By: #### L IPD, CMP #### [facility] [address] [place], [place] [id number] Albumin/Globulin [Mass ratio] 1.7 {ratio} Normal 1.0-2.5 [facility] Specialist Comment on above: Performed By: #### L IPD, CMP #### [facility] [address] [place], [place] [id number] ALP [Catalytic activity/Vol] 159 U/L High 35-119 [facility] Specialist Comment on above: Performed By: #### L IPD, CMP #### [facility] [address] [place], [place] [id number] ALT [Catalytic activity/Vol] 6 U/L Normal 6-33 [facility] Specialist Comment on above: Result Comment: 02/23 Female reference range changed. Performed By: #### L IPD, CMP #### [facility] [address] [place], [place] [id number] Anion gap [Moles/Vol] 19 mmol/L Normal 12-20 [facility] Specialist Comment on above: Result Comment: Effe ctive 03/31/2019 reference range changed. Performed By: #### L IPD, CMP #### [facility] [address] [place], [place] [id number] AST [Catalytic activity/Vol] 13 U/L Normal 9-34 [facility] Specialist Comment on above: Performed By: #### L IPD, CMP #### [facility] [address] [place], [place] [id number] BUN/CREA 21 Ratio Normal 6-22 [facility] Specialist Comment on above: Performed By: #### L IPD, CMP #### [facility] [address] [place], [place] [id number] Calcium [Mass/Vol] 9.7 mg/dL Normal 8.6-10.2 [facility] Configuration Management Analyst Comment on above: Performed By: #### L IPD, CMP #### [facility] [address] [place], [place] [id number] Chloride [Moles/Vol] 103 mmol/L Normal 98-107 [facility] Configuration Management Analyst Comment on above: Performed By: #### L IPD, CMP #### [facility] [address] [facility] [place] [id number] CO2 [Moles/Vol] 22 mmol/L Normal 20-31 [facility] Configuration Management Analyst Comment on above: Performed By: #### L IPD, CMP #### [facility] [address] [facility] [place] [id number] Creatinine [Mass/Vol] 0.6 mg/dL Normal 0.6-1.4 [facility] Configuration Management Analyst Comment on above: Performed By: #### L IPD, CMP #### [facility] [address] [place], [place] [id number] eGFRAA 113 mL/min/1.73m2 Normal >60 [facility] Specialist Comment on above: Performed By: #### L IPD, CMP #### [facility] [address] [place], [place] [id number] eGFRNAA 93 mL/min/1.73m2 Normal >60 [facility] Specialist Comment on above: Performed By: #### L IPD, CMP #### [facility] [address] [place], [place] [id number] Globulin (S) [Mass/Vol] 2.6 g/dL Normal 1.9-3.7 [facility] Configuration Management Analyst Comment on above: Performed By: #### L IPD, CMP #### [facility] [address] [place], [place] [id number] Glucose [Mass/Vol] 102 mg/dL High 65-99 [facility] Configuration Management Analyst Comment on above: Result Comment: For FASTING Glucose --- ADA reference ranges: Normal 65-99 mg/dl Prediabetes 100-125 Diabetes >/= 126 Performed By: #### L IPD, CMP #### [facility] [address] [place], [place] [id number] Potassium [Moles/Vol] 4.2 mmol/L Normal 3.5-5.5 [facility] Configuration Management Analyst Comment on above: Performed By: #### L IPD, CMP #### [facility] [address] [place], [place] [id number] Protein [Mass/Vol] 7.0 g/dL Normal 6.1-8.1 [facility] Configuration Management Analyst Comment on above: Performed By: #### L IPD, CMP #### [facility] [address] [place], [place] [id number] Sodium [Moles/Vol] 140 mmol/L Normal 135-146 [facility] Configuration Management Analyst Comment on above: Performed By: #### L IPD, CMP #### [facility] [address] [place], [place] [id number] TBIL <0.3 Normal [facility] Specialist Comment on above: Performed By: #### L IPD, CMP #### [facility] [address] [place], [place] [id number] Urea nitrogen [Mass/Vol] 13 mg/dL Normal 7-25 [facility] Specialist Comment on above: Performed By: #### L IPD, CMP #### [facility] [address] [place], [place] [id number] Lipid Panelon 02-28-2021 Cholesterol [Mass/Vol] 166 mg/dL Normal 125-200 [facility] Specialist Comment on above: Result Comment: Low risk < 200mg/dL Borderline risk 201-239 mg/dl High risk > or equal to 240 Performed By: #### L IPD, CMP #### [facility] [address] [place], [place] [id number] Cholesterol in HDL [Mass/Vol] 54 mg/dL Normal >40 [facility] Configuration Management Analyst Comment on above: Result Comment: High Cardiovascular Risk HDL <40 mg/dL Low Cardiovascular Risk HDL > or equal to 60 mg/dl Performed By: #### L IPD, CMP #### [facility] [address] [place], [place] [id number] Cholesterol in LDL [Mass/Vol] 87 mg/dL Normal [facility] Configuration Management Analyst Comment on above: Result Comment: LDL ATP III CLASSIFICATION LDL less than 100 mg/dl Optimal LDL 100-129 mg/dl Near or above optimal LDL 130-159 Borderline high LDL 160-189 High LDL greater than 189 mg/dl Very High Performed By: #### L IPD, CMP #### [facility] [address] [place], [place] [id number] Cholesterol in VLDL [Mass/Vol] 25 mg/dL Normal [facility] Configuration Management Analyst Comment on above: Performed By: #### L IPD, CMP #### [facility] [address] [place], [place] [id number] Cholesterol.total/C holesterol in HDL [Mass ratio] 3 {ratio} Normal [facility] Configuration Management Analyst Comment on above: Performed By: #### L IPD, CMP #### [facility] [address] [place], [place] [id number] Triglyceride [Mass/Vol] 126 mg/dL Normal 30-150 [facility] Configuration Management Analyst Comment on above: Result Comment: TRIG ATPIII CLASSIFICATIONS TRIG less than 150 mg/dl Normal TRIG 150-199 mg/dl Borderline High TRIG 200-500 mg/dl High TRIG greather than 500 mg/dl Very High Performed By: #### L IPD, CMP #### [facility] [address] [place], [place] [id number] Vital Signs Date Time Vital Sign Value Performing Clinician Facility 07-21-2023 11:34-0400 Body temperature 99 [degF] Christian Webster MD Work Phone: [facility] 07-21-2023 11:34-0400 Diastolic blood pressure 56 mm[Hg] Christian Webster MD Work Phone: [facility] 07-21-2023 11:34-0400 Heart rate 68 /min Christian Webster MD Work Phone: [facility] 07-21-2023 11:34-0400 Respiratory rate 16 /min Christian Webster MD Work Phone: [facility] 07-21-2023 11:34-0400 SaO2% (BldA) [Mass fraction] 95 % Christian Webster MD Work Phone: [facility] 07-21-2023 11:34-0400 Systolic blood pressure 115 mm[Hg] Christian Webster MD Work Phone: [facility] 07-20-2023 09:39-0400 Body height 160 cm Christian Webster MD Work Phone: [facility] 07-20-2023 09:39-0400 Body mass index (BMI) [Ratio] 22.72 kg/m2 Christian Wesbter MD Work Phone: [facility] 07-20-2023 09:39-0400 Body weight 58.15 kg Christian Webster MD Work Phone: [facility] 07-16-2023 11:22-0400 Body height 160.02 cm II Villa Nicolas Work Phone: [facility] 07-16-2023 11:22-0400 Body mass index (BMI) [Ratio] 22.4 kg/m2 II Villa Nicolas Work Phone: [facility] 07-16-2023 11:22-0400 Body temperature 96.7 [degF] II Villa Nicolas Work Phone: [facility] 07-16-2023 11:22-0400 Body weight 57.6 kg II Villa Nicolas Work Phone: [facility] 07-16-2023 11:22-0400 Diastolic blood pressure 50 mm[Hg] II Villa Nicolas Work Phone: [facility] 07-16-2023 11:22-0400 Heart rate 63 /min II Villa Nicolas Work Phone: [facility] 07-16-2023 11:22-0400 SaO2% (BldA) [Mass fraction] 97 % II Villa Nicolas Work Phone: [facility] 07-16-2023 11:22-0400 Systolic blood pressure 92 mm[Hg] II Villa Nicolas Work Phone: [facility] 06-25-2023 10:52-0400 Body height 160.02 cm [facility] 06-25-2023 10:52-0400 Body mass index (BMI) [Ratio] 26 kg/m2 [facility] 06-25-2023 10:52-0400 Body temperature 96.6 [degF] [facility] 06-25-2023 10:52-0400 Body weight 66.67 kg [facility] 06-25-2023 10:52-0400 Diastolic blood pressure 60 mm[Hg] [facility] 06-25-2023 10:52-0400 Heart rate 67 /min [facility] 06-25-2023 10:52-0400 SaO2% (BldA) [Mass fraction] 93 % [facility] 06-25-2023 10:52-0400 Systolic blood pressure 128 mm[Hg] [facility] 05-24-2023 13:10-0500 Body height 160 cm Sta 2 [facility] [employer] 05-24-2023 13:10-0500 Body mass index (BMI) [Ratio] 22.71 kg/m2 Sta 2 [facility] [employer] 05-24-2023 13:10-0500 Body temperature 97.81 [degF] Sta 2 [facility] [employer] 05-24-2023 13:10-0500 Body weight 58.15 kg Sta 2 [facility] [employer] 05-24-2023 13:10-0500 Diastolic blood pressure 43 mm[Hg] Sta 2 [facility] [employer] 05-24-2023 13:10-0500 Heart rate 80 /min Sta 2 [employer] 05-24-2023 13:10-0500 Respiratory rate 16 /min Sta 2 [facility] [employer] 05-24-2023 13:10-0500 SaO2% (BldA) [Mass fraction] 93 % Sta 2 [email or web address] 05-24-2023 13:10-0500 Systolic blood pressure 98 mm[Hg] Sta 2 [email or web address] Encounters Encounter Date Encounter Type Care Provider Facility Start: 07-20-2023 End: 07-21-2023 amb[facility] Start: 07-20-2023 End: 07-21-2023 Subsequent hospital visit by physician Christian Webster MD Work Phone: [facility] Start: 07-18-2023 End: 07-18-2023 ambulatory CRYSTAL DUNLAP Not Available Start: 07-16-2023 End: 07-16-2023 ambulatory II Villa Nicolas Work Phone: [facility] Work Phone: Start: 07-16-2023 End: 07-16-2023 Patient encounter procedure II Villa Nicolas Work Phone: [facility] Physician [facility] Work Phone: Start: 07-06-2023 End: 07-06-2023 ambulatory Aron Rain Facility:[facility] Start: 07-06-2023 End: 07-06-2023 ambulatory II Villa Nicolas Work Phone: [facility] Work Phone: Start: 07-06-2023 End: 07-06-2023 Patient encounter procedure II Villa Nicolas Work Phone: [facility] [place] Work Phone: Start: 06-27-2023 End: 06-27-2023 ambulatory TIKA ARGUELLES Not Available Start: 06-25-2023 End: 06-25-2023 ambulatory [facility] Work Phone: Start: 06-25-2023 End: 06-25-2023 Patient encounter procedure [facility] Physician [facility] V[facility] Surgery Work Phone: Start: 06-06-2023 End: 06-06-2023 ambulatory TIKA ARGUELLES Not Available Start: 05-30-2023 End: 05-30-2023 ambulatory ZOË BAUMAN Not Available Start: 05-25-2023 End: 05-25-2023 ambulatory DIONE CUEVAS [facility] Start: 05-24-2023 End: 05-29-2023 ambulatory CHRISTIAN WEBSTER [facility] Start: 05-24-2023 End: 05-28-2023 Subsequent hospital visit by physician Sta Pat Rm 2 [facility] PRE-ADMIT TESTING Start: 05-07-2023 [facility] Comment on above: Intervertebral disc disorder of lumbar region with myelopathy Start: 04-23-2023 End: 04-23-2023 ambulatory VILLA NICOLAS Not Available Start: 04-23-2023 Patient encounter status Kae alfaro DANDRE [facility] Start: 04-19-2023 End: 04-[facility] Start: 04-05-2023 End: 04-05-2023 Subsequent hospital visit by physician Sta Pat Rm 1 [facility] PRE-ADMIT TESTING Comment on above: Canceled (Case cance lled) Start: 04-04-2023 Evaluation and manag ement of inpatient AB [facility] Start: 04-04-2023 Evaluation and manag ement of inpatient SELENE [facility] Start: 04-03-2023 End: 04-05-2023 Evaluation and management of inpatient ALE [facility] Start: 03-27-2023 End: 03-27-2023 Subsequent hospital visit by physician Sta Pat Rm 2 [facility] PRE-ADMIT TESTING Comment on above: Canceled (Patient) Start: 03-15-2023 End: 03-15-2023 ambulatory VILLA NICOLAS Not Available Start: 02-02-2023 End: 02-07-2023 ambulatory CHRISTIAN WEBSTER [facility] Start: 10-31-2022 End: 10-31-2022 ambulatory [facility] Start: 10-31-2022 End: 10-31-2022 Encounter for preprocedural cardiovascular examination [facility] Start: 10-26-2022 End: 10-31-2022 ambulatory VILLA NICOLAS [facility] Start: 06-27-2022 End: 06-28-2022 ambulatory YASMEEN WINTERS Facility:[facility] Start: 01-20-2022 End: 01-21-2022 ambulatory REBECA GOLDEN Facility:[facility] Start: 01-16-2022 End: 01-17-2022 ambulatory REBECA GOLDEN Facility: Start: 01-09-2022 End: 01-09-2022 ambulatory VILLA NICOLAS Facility:[facility] Start: 01-04-2022 End: 01-05-2022 ambulatory Ambrose Rodriguez Facility:[facility] Start: 12-30-2021 End: 12-31-2021 ambulatory VILLA NICOLAS Facility:[facility] Start: 11-25-2021 End: 11-26-[address] VILLA NICOLAS Facility: Start: 10-02-2016 End: 10-03-2016 Ambulatory DEFAULT PHYSICIAN Facility:[facility] Procedures Date Procedure Procedure Detail Performing [...] A1c measurement A1C test (Diabetic or Prediabetic) [facility] Start: 03-15-2024 Screening for malign ant neoplasm of colon Colorectal Cancer Screening [facility] Healthcare Comment on above: Postponed from 12/08 (Patient Refused) Start: 03-04-2024 Screening for malign ant neoplasm of breast Mammogram [facility] Healthcare Comment on above: Postponed from 12/08 (Patient Refused) Start: 10-25-2023 Influenza vaccination Flu vacc ine (Season Ended) [facility] Start: 09-23-2023 Influenza vaccination Influenza Vacc ine (#1) [facility] Healthcare Comment on above: Postponed from 11/24 (Patient Refused) Start: 08-22-2023 End: 08-22-2023 Patient encounter procedure 08/22/2023 11:30 AM EDT Office Visit [address], [address] [place] [id number] Christian Webster MD [address] [place] [address] [place] [id number] 4 week 1st post op-RE-DO L3-4 LUMBAR LAMINECTOMY [ [facility] Neurosurgery Comment on above: 4 week 1st post op-R E-DO L3-4 LUMBAR LAMINECTOMY [ Start: 07-06-2023 Doppler ultrasonogra phy of bilateral carotid arteries US carotid doppler BI [facility] Start: 07-06-2023 Pulse volume recorde r plethysmography [facility] Start: 07-06-2023 US.doppler Carotid arteries - bilateral [facility] Start: 07-04-2023 End: 07-04-2023 Patient encounter procedure 07/04/2023 1:50 PM EDT Office Visit [facility] Neurosurgery [address] [place] [address], [address] [place] [id number] Christian Webster MD [address] [place] [address] 15 [place] [address] 4 week 1st post op-Redo L3-4 Lami [facility]surgery Comment on above: 4 week 1st post op-R jenni L3-4 Lami Start: 06-25-2023 End: 06-25-2023 Patient encounter procedure 06/25/2023 2:00 PM EDT Office Visit [facility] [address] [facility] [address] [place] [id number] Villa Nicolas MD [address] [facility] [address] [place] [address] [facility] Start: 06-14-2023 Hemoglobin A1c measurement Diabetes: Hemoglobin A1C [facility] Start: 06-07-2023 End: 06-07-2023 Admission to same day surgery center 06/07/2023 9:55 AM EDT - 06/07/2023 12:00 PM EDT Surgery [facility] OR [address] [place] [id number] Christian Webster MD [address] [id number] RE-DO L3-4 LUMBAR LAMINECTOMY [facility] OR Comment on above: RE-DO L3-4 LUMBAR LA MINECTOMY Start: 06-07-2023 End: 06-07-2023 Laminectomy w/o ffd > 2 vert seg lumbar LUMBAR LAMINECTOMY POSTERIOR Spinal stenosis of lumbar region, unspecified whether neurogenic claudication present 06/07/2023 9:55 AM EDT [facility] Start: 06-07-2023 Subsequent hospital visit by physician 06/07/2023 9:55 AM EDT Hospital Encounter [facility] [address] [place] [id number] Christian Webster MD [address] [address] [facility] [place] Start: 05-30-2023 End: 05-30-2023 Patient encounter procedure 05/30/2023 2:20 PM EST Office Visit [facility] [address] [facility] [address] [place] [id number] Zoë Bauman MD [address] [place] [address] [place] [address] [facility] Start: 05-23-2023 End: 05-23-2023 Clinical Support 05/23/2023 11:00 AM EST Clinical Support [facility] [address] [facility] [address] [place] [id number] Crystal Dunlap, [facility] [address] [facility] [place] [address] [facility] Start: 05-16-2023 End: 05-16-2023 Patient encounter procedure 05/16/2023 10:30 AM EST Office Visit [facility]surgery [address] [place] [address], [address] [place] [address] Christian Webster MD [address] [place] [address] 4 week 1st post op-Redo L3-4 Lami [facility]surgery Comment on above: 4 week 1st post op-R jenni L3-4 Lami Start: 04-20-2023 End: 04-20-2023 Admission to same day surgery center 04/20/2023 10:00 AM EST - 04/20/2023 11:55 AM EST Surgery [facility] [address] [place] [address] Christian Webster MD [address] [place] [address] 15 [place] [address] REDO L3-4 LUMBAR LAMINECTOMY POSTERIOR [facility] OR Comment on above: REDO L3-4 LUMBAR KNOTT INECTOMY POSTERIOR Start: 04-20-2023 End: 04-20-2023 Knott facetectomy & foramotomy 1 segment lumbar LUMBAR LAMINECTOMY POSTERIOR Spinal stenosis of lumbar region, unspecified whether neurogenic claudication present 04/20/2023 10:00 AM [facility] Start: 04-20-2023 Subsequent hospital visit by physician 04/20/2023 10:00 AM [facility] Hospital Encounter [facility] [address] [place] [id number] Christian Webster MD [address] [place] [address] [facility] OR Start: 04-05-2023 Subsequent hospital visit by physician 04/05/2023 1:00 PM [facility] Hospital Encounter [facility] PRE-ADMIT TESTING [address] [place] [address] [id number] [facility] PRE-ADMIT TESTING Start: 02-19-2023 Annual Wellness Visi t (Medicare) Annual Wellness Visit (Medicare) [facility] Start: 01-26-2023 Hemoglobin A1c measurement A1C test (Diabetic or Prediabetic) [facility] Start: 12-09-2022 Screening for malign ant neoplasm of colon FIT-DNA [facility] Start: 11-24-2022 COVID-19 Vaccine ( season) COVID-19 Vaccine ( season) [facility] Start: 10-24-2022 Influenza vaccination Flu vaccine (# 1) [facility] Start: 09-29-2022 Medicare Annual Well ness (AWV) Medicare Annual Wellness (AWV) [facility] Start: 01-14-2020 Shingles vaccine (2 of 2) Conklin gles vaccine (2 of 2) [facility] Start: 06-27-2019 Urine screening for protein Diabetes: Urine Protein Screening [facility] Start: 08-30-2018 Pneumococcal 65+ yea rs Vaccine (3 - PPSV23 or PCV20) Pneumococcal 65+ years Vaccine (3 - PPSV23 or PCV20) [facility] Start: 08-30-2018 Pneumococcal 65+ yea rs Vaccine (3 of 3 - PPSV23 or PCV20) Pneumococcal 65+ years Vaccine (3 of 3 - PPSV23 or PCV20) [facility] Start: 2010 Respiratory Syncytia l Virus (RSV) or age 60 yrs+ (1 - 1-dose 60+ series) Respiratory Syncytial Virus (RSV) or age 60 yrs+ (1 - 1-dose 60+ series) [facility] Start: 2000 Screening for malign ant neoplasm of breast Breast cancer screen [facility] Start: 12-09-1995 Screening for malign ant neoplasm of colon [facility] Start: 1969 DTaP/Tdap/Td vaccine (1 - Tdap) DTaP/Tdap/Td vaccine (1 - Tdap) [facility] Start: 1968 Hepatitis C screening Hepatitis C sc reen [facility] Start: 1962 Depression Screen Depression Screen [facility] Start: 1960 Lipid panel Lipids [facility] Start: 1950 Screening for malign ant neoplasm of colon [facility] End: 07-20-2023 Glucose [Mass/volume] in Serum or Plasma POCT Glucose Point of Care Testing STAT One Time for 1 Occurrences starting 07/20/2023 until 07/20/2023 [facility] Work Phone: Comment on above: One Time for 1 Occur rences starting 07/20/2023 until 07/20/2023 Oxygen therapy [[facility] Data Set] Initiate Oxygen Therapy Protocol Respiratory Care Routine As Needed until discontinued starting 07/20/2023 [facility] Comment on above: As Needed until disc ontinued starting 07/20/2023 Spirometry panel Incentive [place] Respiratory Care Routine Every 2hr while awake until discontinued starting 07/20/2023 [facility] Comment on above: Every 2hr while awak e until discontinued starting 07/20/2023 Immunizations Immunization Date Immunization Notes Care Provider Lucas muir 02-02-2022 influenza, high dose seasonal, preservative-free Kae Barone [facility] 02-02-2022 influenza virus vacc ine, unspecified formulation Kae Barone MA [facility] 01-27-2022 SARS-CoV-2, Unspecified Kae sheehan MA [facility] 02-23-2021 influenza, high dose seasonal, preservative-free Kae Barone MA [facility] are 12-03-2019 Influenza, High-dose Seasonal, Quadrivalent, Preservative Free Kae Barone MA [facility] 11-19-2019 zoster vaccine recombinant Kae lyons MA [facility] 12-20-2017 Influenza, High-dose Seasonal, Quadrivalent, Preservative Free Kae Barone MA [facility] 08-30-2017 pneumococcal conjuga te vaccine, 13 valent Kae Barone MA [facility] 12-24-2014 seasonal influenza, intradermal, preservative free Kae Barone MA [facility] 01-26-2014 influenza, seasonal, injectable Kae Barone MA [facility] 02-28-2013 seasonal influenza, intradermal, preservative free Kae Barone MA [facility] 03-26-2011 pneumococcal polysac charide vaccine, 23 valent Kae Barone MA [facility] Payers Date Payer Category Payer Self-pay [id number] 2017 Medicare MEDICARE MEDICAR E PART B [id number] 2017-Present [address] [address] [place] [address] Medicare [id number] 2017 Medicaid MEDICAID [facility] [id number] 2017-Present [phone] [address] [place] [address] Medicaid [id number] 1959 Medicaid [id number] 1959 Medicare [id number] 1959 Medicare [id number] 1959 Self-pay [id number] 1950 Unknown [id number] [id number]8 1950 Unknown [id number] 2.16.840.1.213454.3.579.2.718 1950 Unknown [id number] 2.16.840.1.659213.3.579.2.718 1950 Unknown [id number] 2.16.840.1.033913.3.579.2.593 1950 Unknown [id number] 2.16.840.1.491093.3.579.2.593 1950 Unknown [id number] 2.16.840.1.675081.3.579.2.593 1950 Unknown [id number] 2.16.840.1.498874.3.579.2.593 1950 Unknown [id number] 2.16.840.1.489641.3.579.2.593 1950 Unknown [id number] 2.16.840.1.511650.3.579.2.175 1950 Unknown [id number] 2.16.840.1.505580.3.579.2.1259 1950 Unknown [id number] 2.16.840.1.059035.3.579.2.1259 1950 Unknown [id number] 2.16.840.1.617906.3.579.2.1259 1950 Unknown [id number] 2.16.840.1.908117.3.579.2.1259 1950 Unknown [id number] 2.16.840.1.975837.3.579.2.1259 1950 Unknown [id number] 2.16.840.1.709838.3.579.2.1259 1950 Unknown [id number] 2.16.840.1.045879.3.579.2.177 1950 Unknown [id number] 2.16.840.1.500453.3.579.2.177 1950 Unknown [id number] 2.16.840.1.714251.3.579.2.177 Unknown Unknown [id number] 2.16.840.1.468153.3.579.2.531 Social History Date Type Detail Facility Start: 10-26-2022 End: 07-20-2023 Tobacco smoking status MNIS [facility] History of tobacco use [facility]ig[facility] Start: 10-26-2022 End: 07-20-2023 Cigarettes smoked current (pack per day) - Reported 0.5 [facility] Start: 10-26-2022 End: 07-20-2023 Tobacco use and exposure Smokeless tobacco non-user [facility] Start: 02-02-2023 End: 07-20-2023 Alcohol intake Ex-drinker (finding) [facility] Start: 02-02-2023 End: 07-20-2023 Tobacco use panel [facility] Start: 10-26-2022 Tobacco Comment Started smoking at age 16, quit at the age of 30 then started smoking again a little over a year ago (written 10/26/2022) [facility] Start: 1950 Sex Assigned At Not on file [facility] Start: 04-23-2023 Alcohol intake Lifetime non-drinker (finding) [facility] Start: 03-29-2023 Alcohol Comment caffeine intake : 2-3 cups per day coffee, soda [facility] Start: 06-25-2023 Tobacco smoking status MNIS Smoker (finding) [facility] Start: 1950 Sex Assigned At Female [facility] Has the [employer], [employer] Compliance, or water [employer] threatened to shut off services in your home in past 12Mo No [email or web address] (I/We) worried [facility] (my/our) food would run out before (I/we) got money to buy more. Never true [email or web address] In the past 12 month s, has lack of transportation kept you from medical appointments or from getting medications? No [email or web address] Clinical Notes 01-09-2022 to 07-21-2023 Tamiko Toledo, [...] with patient as well. Physical Therapy Facility/Department: [facility] Physical Therapy Initial Assessment Name: [...] History of coronary artery disease, History of CO (myocardial infarction), Hyperlipidemia, Hypertension, Lumbar disc disorder with myelopathy, CO (myocardial infarction) (HCC), Neuropathy, Parkinson's disease (HCC), PVD (peripheral vascular disease) ([facility]), Seasonal allergies, Spinal stenosis, Tinnitus, [...] Needs assistance (assist with shower transfers) Active Recreation Program Coordinator: No Patient's Recreation Program Coordinator Info: [employer] Occupation: Retired Type of [...] 3-5 steps with a railing?: A Little [facility] Inpatient Mobility Raw Score : 20 [facility] Inpatient T-Scale Score : 47.67 Mobility Inpatient [...] time of discharge. Please refer to the [facility] score for current functional status. KYLE Morrison [...] History of coronary artery disease, History of CO (myocardial infarction), Hyperlipidemia, Hypertension, Lumbar disc disorder with myelopathy, CO (myocardial infarction) ([facility]), Neuropathy, Parkinson's disease ([facility]), PVD (peripheral vascular disease) ([facility]), Seasonal allergies, Spinal stenosis, Tinnitus, [...] Needs assistance (assist with shower transfers) Active Recreation Program Coordinator: No Patient's Recreation Program Coordinator Info: hearts ambullette Occupation: Retired Type of [...] pt to demo Short Term Goal 1: I/CO for bed mob with proper log roll tech Short Term Goal 2: I/CO for ADL transfers and functional mob with AD as needed and Good safety Short Term Goal 3: I/CO for total body ADLs with AE as needed and Good safety Short Term Goal 4: I/CO for toileting routine with BSC/AD as needed [...] Minutes 39 Tx time: 23 min Upon bid writer exit, call light within reach, pt retired to chair. All lines intact and patient positioned comfortably. All patient needs addressed prior to ending therapy session. Chart reviewed prior to treatment and patient is agreeable for therapy. RN reports patient is medically stable for therapy treatment this date. Merary Bocanegra OTR/L 07/21/2023 8:16 AM Mirna Quezada [id number] SUBJECTIVE: Uneventful PM per nursing, pt doing [...] lighting provided. documented in this encounter [facility] 07-20-2023 Hospital Discharge instructions Tamiko Toledo RN [...] support you. If you have questions, call [phone] Sunday through Sunday from 7:30AM to 8:30PM to speak to a nurse. If you need to speak to someone outside of these hours, call your physician. Incision Do s and Don ts Do wash hands before and after dressing changes or when you have had any contact with your incision. Use hand rink rat or antibacterial soap. Do keep your incision [...] be sent through Care Everywhere.Lumbar Laminectomy: Post-op (Peruvian)Constipation (Peruvian)DVT (Deep Vein Thrombosis): General Info (Peruvian)Smoking Cessation: Health Benefits: General Info (Peruvian)Diabetes: Type 2 (Peruvian)tizanidine (Peruvian)Hydrocodone/Acetaminoph en Oral Tablet (HYDROCODONE/ACETAMINOPHEN - ORAL) (Peruvian)documented in this encounter [facility] 05-25-2023 Note UTP CARDIOLOGY PROGR ESS NOTE [...] sent a referral to vascular surgery in [place] for carotid artery stenosis. Review of Systems Musculoskeletal: Positive for arthritis, back pain, joint pain, muscle weakness, myalgias and neck pain. Neurological: Positive for weakness. All other systems reviewed and are negative. 04/19/23 previous API HPI Patient being seen via telemedicine for follow up [facility] for acute on chronic diastolic heart failure, CAD, AO stenosis, HTN. She feels good s/p hospital stay. She denies chest pain, SOB, palpitations, LE edema, and lightheadedness/syncope. No testing since [facility] discharge. Visit Vitals BP 98/60 (BP [...] mcg by mouth in the morning. HYDROcodone-acetaminophen (Jackson) 10-325 mg tablet Take 1 tablet by [...] Range & U (more content not included)... [facility] 05-25-2023 Note Patient here for 1 m o follow up chronic diastolic heart failure, CAD, and aortic valve stenosis. Had BMP last month after apt. BP yesterday at pre-surgery testing apt was 98/43. She denies chest pain, SOB, palpitations, and lightheadedness/syncope. Says PCP sent a referral to vascular surgery in [place] for carotid artery stenosis. Review of Systems Musculoskeletal: Positive for arthritis, back pain, joint pain, muscle weakness, myalgias and neck pain. Neurological: Positive for weakness. All other systems reviewed and are negative. [facility] 05-25-2023 Note 1. preoperative card iac risk stratification Patient is unable to do 4 METS without shortness of breath. Recent lexiscan showed fixed defect, no acute or reversible defects. From a cardiology perspective pt may proceed with planned spinal surgery, she is a moderate risk for a moderate to high risk surgery. [facility] 05-25-2023 Note stable [facility] 05-25-2023 Note [facility] II-III- current ly euvolemic without exacerbation Monitor daily weights, I&O, fluid restriction 1.5-2L/day, renal function and electrolytes- [facility] 05-25-2023 Note Lipid abnormalities are stable Continue lipitor 20 mg daily [facility] 05-25-2023 Note Hypertension is well controlled and continue all medications [facility] 05-24-2023 History of Present illness Narrative PAT [...] has known cardiomyopathy, aortic stenosis, CAD s/p CO and CABG x1 in 2000, heart failure, [...] rehab Depression on Celexa, daughter recently Diabetes ([facility]) checks blood sugar at home,averages 130-140, managed by Dr Nicolas Disc degeneration, lumbar Foot drop, left foot usually uses a walker Hearing loss History of blood transfusion during CABG History of coronary artery disease History of CO (myocardial infarction) 1998 initially treated with Stents then had CABG in 2000 Hyperlipidemia Hypertension managed by Dr Nicolas Lumbar disc disorder with myelopathy CO (myocardial infarction) ([facility]) 04/03/2023 Pt states that they thought I was having a heart attack, but the testing was negative. Neuropathy Seasonal allergies Spinal stenosis Tinnitus Tremors of nervous system patient doesn't know the medical diagnosis but said she was told it's very close to Parkinson's Under care of service provider 02/02/2023 pcp-v[place] nicolas-ovidio [place]-last visit dec 2022 Under care of service provider 02/02/2023 [id number]-ivryp-digpsibhv [facility] - due to visit jan 2023 Under care of service provider 02/02/2023 [id number] in [place]-last visit dec 2022 Under care of service provider 02/02/2023 [id number]-last visit oct 2022 Under care of [...] CORONARY ARTERY BYPASS GRAFT 2000 done at [facility] SPINAL FUSION L4-5, S1 Medications Prior [...] tablets 09/04/11 Del Reilly MD nystatin (MYCOSTATIN) 041209 UNIT/GM powder Apply 1 application topically in [...] 2:08 PM documented in this encounter [facility] 04-19-2023 Note stable [facility] 04-19-2023 Note No acute symptoms- w ill monitor with serial echocardiograms [facility] 04-19-2023 Note Coronary artery dise ase is stable No beta navdeep r/t bradycardia Continue GDMT- ASA lipitor And plavix continue risk factor modifications- heart healthy diet, regular exercise as tolerated and continue all medications. [facility] 04-19-2023 Note NY[facility]- II-III current ly appears euvolemic- pt denied any concering symptoms Continue GDMT- Currently euvolemic without exacerbation, no Diuretic therapy needed at this time. She has actually lost weight since DC home. Monitor daily weights, I&O, fluid restriction 1.5-2L/day, renal function and electrolytes [facility] 04-19-2023 Note UTP CARDIOLOGY PROGR ESS NOTE Date of phone call: 04/19/2023 HPI Patient being seen via telemedicine for follow up [facility] for acute on chronic diastolic heart failure, CAD, AO stenosis, HTN. She feels good s/p hospital stay. She denies chest pain, SOB, palpitations, LE edema, and lightheadedness/syncope. No testing since [facility] discharge. Previous HPI: Currently pt arrived [...] was initiated by the patient and conducted jwi-krnn-ko-face with use of audio-only real time telephone [...] heart failure (CMS/HCC) Coronary artery disease involving [place] coronary artery of [place] heart without angina pectoris Review of Systems [...] mcg by mouth in the morning. HYDROcodone-acetaminophen (Jackson) 10-325 mg tablet Take 1 tablet by [...] ventricular systolic fu (more content not included)... [facility] 04-19-2023 Note Patient being seen v ia telemedicine for follow up [facility] for acute on chronic systolic heart failure. She feels good s/p hospital stay. She denies chest pain, SOB, palpitations, LE edema, and lightheadedness/syncope. No testing since [facility] discharge. Review of Systems Musculoskeletal: Positive for arthritis, back pain, joint pain, muscle weakness, myalgias and neck pain. Neurological: Positive for weakness. All other systems reviewed and are negative. [facility] 04-05-2023 Note Patient just had vis itors arrive to see her. Cancelled transport request. Provided a list of local food pantries. [facility] 04-05-2023 Note 04/05/23 [id number] Admission Assessment Questions Verify insurance with patient Yes (Medicare/[place] Medicaid) Do you understand medical disease or what brought you into the hospital? Yes ( I was sent here from [facility] because they thought I had [...] Yes Does the patient have a case finisher assigned to them through their insurance? Yes Living Arrangement (Current/Prior to Hospitalization) Private residence;Home self care (to start [facility] per new referral from [facility], Lives with , has no adult kids, Has help from Step-Son for commercial account executive & Friend Christiana assists with ADL's) Does the patient have history of HHC or SNF? Yes (went to SNF in [place] about 2 yrs ago, no previous Rehab or HHC use) Assistive Device Walker;Wheelchair;Raised toilet seat (has shower chair, previously used Home O2 about 10-15 yrs ago) Patient's goal for discharge Home with [facility], new referral was sent per [facility] prior to admission Was patient reminded that goal for discharge is 11am? Yes Does the patient have transportation at discharge? No (Uses [facility] or [facility] for transportation; [facility] has no availability & too late to request ride through [facility]) Type of Residence/Post Acute Needs Private residence;Home care staff ([facility]) Is PT/OT appropriate? Yes Is PT/OT ordered? Yes Is SW consult appropriate? Yes Is SW consult ordered? Yes Do you understand the benefits of MyChart? No Were you able to send link and activate MyChart? No (patient declined as she does not know how computer works) Screen completed. Medically ready for discharge. Dc Plan: Home, start [facility] per referral that was originally sent per [facility]. Working on transportation issue home to [place]. Possible taxi ride Home pending [employer]TM Stations Superintendent approval. [facility] Bedside RN would need to assist patient into taxi & patient's would need to be informed of approximate arrival time Home so that he can go outside to taxi w/ Walker or WC to assist patient into the Home. [facility] 04-05-2023 Note 2:57pm Sent the AVS to [facility]. 2:34pm Called [facility] per her request. They close at 4pm. Patient does not have any one that can come and get her. 2:21pm Met with the patient. She lives with her and plans on returning. She stated she will need help returning home and that she uses [facility]. Spoke with [facility]. They close at 4pm and are fully booked. She is active with [facility]. Will send updates. [facility] 04-05-2023 Note Physical Therapy Physical Therapy Evaluation [...] Abnormal gait COPD (chronic obstructive pulmonary disease) (CMS/[facility]) Autonomic neuropathy due to type 2 diabetes mellitus ([facility]) Brachial plexus neuropathy of both [...] Level of Function Prior Function Level of Randall: Needs assistance with ADLs, Needs assistance with [...] Stage III ( (more content not included)... [facility] 04-05-2023 Note Hospital Medicine Discharge Summary Final Discharge Diagnosis: Acute on chronic diastolic CHF (congestive heart failure) ([facility]) - resolved NSTEMI II in setting of HF exacerbation and acute hypoxemia 2/2 multilobular pneumonia - resolved Admission Diagnosis: Acute on chronic systolic CHF (congestive heart failure) ([facility]) [I50.23] Hospital course: Mirna Quezada is an 72 y.o. female who came from home with pastMedical history of Parkinson's disease, hypertension, DM2, hyperlipidemia, CAD s/p CABG, COPD presents to the [facility] as a direct admission from [facility] with elevated troponin and acute [...] on room air -Upon initial arrival to [facility] on 03/29/2023, patient was requiring 2 L [...] home on 04/05/23. Dear Dr. Fidencio MD, [place] is advised to follow up with you within 1-2 weeks. Follow-up with: Cardiology and CHF clinic Scheduled appointments: Future Appointments Date Time Provider Department Center 04/19/2023 2:00 PM Shira Wong NP [facility] Your medication list CONTINUE taking these [...] HYDROcodone-acetaminophen 10-325 mg tablet Commonly known as: Jackson isosorbide mononitrate ER 30 mg 24 hr tablet Commonly known as: Imdur metFORMIN 500 mg tablet Commonly known as: Glucophage pregabalin 200 mg capsule Commonly known as: Lyrica primidone 50 mg tablet Commonly known as: Mysoline rOPINIRole 0.25 mg tablet Commonly known as: Requip tiZANidine 4 mg tablet Commonly known as: Zanaflex Mirna is allergic to augmentin [amoxicillin-pot clavulanate]. Disposition: Home-Health Care [facility] Discharge Condition: Stable Code Status: Prior Diagnostic [...] was 40 minutes. Signed Deena Stephenson NP [facility] Medicine 04/09/2023 10:49 AM [facility] 04-05-2023 Note UTP CARDIOLOGY INPAT IENT PROGRESS [...] diet with no excessive oral fluids, and HAMMER SMITH using no diuretic. Says in past no [...] Value Ventricular Rate 57 Atrial Rate 57 SC Interval 162 QRS DURATION 96 QT Interval 446 QTC CALCULATION(BAZETT) 434 P [place] 57 R-[place] 79 T Wave [place] 11 Impression Sinus bradycardia Otherwise normal ECG [...] valve stenosis. A (more content not included)... [facility] 04-05-2023 Note Occupational Therapy Occupational Therapy Evaluation Patient Name: Mirna Quezada : 1950 Today's Date: 04/05/2023 Time In: 929 Time Out: 948 Mirna Quezada is an 72 y.o. female who came from home with pastMedical history of Parkinson's disease, hypertension, DM2, hyperlipidemia, CAD s/p CABG, COPD presents to the [facility] as a direct admission from [facility] with elevated troponin and acute [...] Spouse Home Adaptive Equipment: Walker rolling, Wheelchair-power (ma, hhs) Home Layout: One level Home Access: Ramped entrance Bathroom Shower/Tub: Tub/shower unit Prior Level of Function Prior Function Level of Randall: Needs assistance with ADLs, Needs assistance with homemaking (has FOOD ASSEMBLER KITCHEN 4x/w for bath, assist with dressing at times) Prior Functional Mobility: Independent with rolling walker Receives Help From: diet attendant (4x/w for bath) ADL Assistance: ( [...] Basic Assessment Current (more content not included)... [facility] 04-04-2023 Note Pt admitted to [facility] for acute on chronic diastolic HF; hx of Parkinson's disease, hypertension, DM2, hyperlipidemia, CAD s/p CABG, COPD. Pt has echo scheduled; previous echo from 11/03/22 estimated LVEF 50%. I will wait for current echo results to determine pt's eligibility to participate in cardiac rehab (CR) therapy with HF diagnosis and follow up with pt , if appropriate. BEENA Cowart histologist Outpatient Coordinator Cardiopulmonary Rehab [facility] 04-04-2023 Note Hospital Medicine Daily Progress Note - 04/04/2023 9:15 AM; Room: 5151/5151-01 Admission: 04/03/2023 8:14 PM; Length of stay: 1 days THE HOSPITALIST TEAM PREFERS TO USE [employer] FOR COMMUNICATION 7AM-7PM. IF I DO NOT RESPOND WITHIN 15 MINUTES, PLEASE PAGE ME/CALL THROUGH THE IMAGERY INTELLIGENCE. FROM 7PM-7AM, PLEASE PAGE [phone](COVR) Code Status: DNR CC-A Barriers to Discharge: [...] on chronic diastolic CHF (congestive heart failure) ([facility]) Active Problems: COPD (chronic obstructive pulmonary disease) ([facility]) Coronary artery disease HTN (hypertension) H/O Parkinson's disease HLD (hyperlipidemia) Status post coronary artery bypass graft Type 2 diabetes mellitus without complication ([facility]) Elevated troponin Acute hypoxic respiratory failure ([facility]) Multifocal pneumonia Assessment and Plan Mirna Quezada is an 72 y.o. female who came from home with pastMedical history of Parkinson's disease, hypertension, DM2, hyperlipidemia, CAD s/p CABG, COPD presents to the [facility] as a direct admission from [facility] with elevated troponin and acute [...] on room air -Upon initial arrival to [place] on 03/29/2023, patient was requiring 2 L [...] 1 half table (more content not included)... [facility] 04-04-2023 Note Hospital Medicine History and Physical 04/03/2023 10:32 PM THE HOSPITALIST TEAM PREFERS TO USE [employer] FOR COMMUNICATION 7AM-7PM. IF I DO NOT RESPOND WITHIN 15 MINUTES, PLEASE PAGE ME/CALL THROUGH THE IMAGERY INTELLIGENCE. FROM 7PM-7AM, PLEASE PAGE [phone](COVR) Chief Complaint Direct admission from [facility] for elevated troponin and acute on chromic CHF History of Present Illness Mirna Quezada is an 72 y.o. female who came from home with pastMedical history of Parkinson's disease, hypertension, DM2, hyperlipidemia, CAD s/p CABG, COPD presents to the [facility] as a direct admission from [facility] with elevated troponin and acute on chronic CHF exacerbation. Patient originally went to [facility] on 03/29/2023 with a sore [...] on chronic diastolic CHF (congestive heart failure) ([facility]) 04/03/2023 Elevated troponin 04/03/2023 Acute hypoxic respiratory failure ([facility]) 04/03/2023 Multifocal pneumonia 04/03/2023 Cigarette [...] (peripheral artery dis (more content not included)... [facility] 10-31-2022 Note [facility]. She was last seen in September of [address] Jhaveri. She presents today for surgery clearance prior to lumbar laminectomy scheduled next week, 11/[address] [facility]. ECG and labs were done last week as part of preadmission testing. She denies chest pain, SOB, lightheadedness, and palpitations. Smoking less than half PPD she states. Review of Systems Respiratory: Positive for wheezing. Musculoskeletal: Positive for arthritis, back pain, joint pain, muscle weakness, myalgias and neck pain. Neurological: Positive for weakness. All other systems reviewed and are negative. [facility] 10-31-2022 Note Cardiovascular Medic ine [facility] SUBJECTIVE No chief complaint on file. [...] in the morning., Disp: , Rfl: HYDROcodone-acetaminophen (Jackson) 10-325 mg tablet, Take 1 tablet by mouth every 8 (eight) hours., Disp: , Rfl: isosorbide mononitrate ER (Imdur) 30 mg 24 hr tablet, Take 1 tablet by mouth in the morning., Disp: , Rfl: metFORMIN XR (Glucophage-XR) 750 (more content not included)... [facility] 01-11-2022 Note [id number] [facility] 01-09-2022 Note [facility] SURGERY Clinical Discharge Summary PERSON INFORMATION Name MIRNA QUEZADA Age 71 Years 1950 Sex FEMALE Language Peruvian PCP VILLA NICOLAS Marital Status Med Service Ambulatory Surgery Acct# Arrival 01/09/2022 12:18:00 Visit Reason SURGERY - LEFT CARPAL TUNNEL RELEASE Acuity NADINE 019 06:34 Address: [address] [place] [address] [address] [place] [id number] Comment: PROVIDER INFORMATION VITALS INFORMATION Vital Sign [...] Instruc (more content not included)... [facility] 01-09-2022 Note Procedure: Decompres wilman of median [...] 17:13 EDT] Ambrose Rodriguez DO [facility] Evaluation note Diagnosis 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 lumbar disc disorder with myelopathy, lumbar region documented in this encounter [facility] noteNo assessment information available[facility] Work Phone: Evaluation note* Diagnosis Onset Date Resolution Status Carotid stenosis acute Claudication [facility] Work Phone: Evaluation note* Diagnosis Spinal stenosis of lumbar region with neurogenic claudication- Primary Spinal stenosis, lumbar region, with neurogenic claudication documented in this encounter [facility] Summary Purpose Family History No Family History [...] OVER PVRS AND CAROTID U/S DONE AT [facility] Reason for Visit Carotid stenosis Claudication Additional Source Comments INFORMATION SOURCE (unrecogn ized section and content) DATE CREATED AUTHOR 09/19/2017 [facility] DATE CREATED AUTHOR AUTHOR'S ORGANIZ ATION 07/16/2021 [facility] dical Specialist DATE CREATED AUTHOR AUTHOR'S ORGANIZ ATION 01/19/2022 [facility] DATE CREATED AUTHOR AUTHOR'S ORGANIZ ATION 07/03/2022 [facility] DATE CREATED AUTHOR AUTHOR'S ORGANIZ ATION 02/08/2023 [facility] DATE CREATED AUTHOR AUTHOR'S ORGANIZ ATION 05/27/2023 [facility] DATE CREATED AUTHOR AUTHOR'S ORGANIZ ATION 07/10/2023 [facility] ysician Group DATE CREATED AUTHOR AUTHOR'S ORGANIZ ATION 07/19/2023 [facility] dical Specialists EPIC DATE CREATED AUTHOR AUTHOR'S ORGANIZ ATION 07/22/2023 [facility] ospital Care Teams (unrecognized sec tion and content) Clinical Technologist Relationship Specialty Start Date End Date Villa Nicolas MD [address] [facility] [address] [place] [address] PCP - General Internal Medicine 09/27/22 Clinical Technologist Relationship Specialty Start Date End Date Villa Nicolas MD [address] [facility] [address] [place] [address] PCP - General Internal Medicine 09/27/22 Clinical Technologist Relationship Specialty Start Date End Date Villa Nicolas MD [address] [facility] [address] [place] [address] PCP - General Internal Medicine 08/15/22 Villa Nicolas MD [address] [facility] [address] [place] [address] PCP - ACO Reach 09/04/22 Montse Celestin, RN Registered Nurse Family Medicine 04/06/23 Clinical Technologist Relationship Specialty Start Date End Date Villa Nicolas MD [address] [facility] [address] [place] [address] PCP - General Internal Medicine 09/27/22 Team [...] July 16, 2023 End: July 16, 2023 Clinical Technologist Relationship Specialty Start Date End Date Villa Nicolsa MD [address] [facility] [address] [place] [address] PCP - General Internal Medicine 09/27/22 Reason for Visit (unrecogniz ed section and content) Reason Onset Date Comments Med Refill 05/07/2023 Specialty Diagnoses / Procedures Referred By Contac t Referred To Contact Diagnoses Spinal stenosis of lumbar region, unspecified whether neurogenic claudication present Spinal stenosis of lumbar region, unspecified whether neurogenic claudication present [M48.061] Procedures SC LAMINECTOMY W/O FFD > 2 VERT SEG LUMBAR RE-DO L3-4 LUMBAR LAMINECTOMY Christian Webster MD [address] [facility] [address] [place] [address] [facility] [address] [place] [address] Referral ID Status Reason Start Date Expiration Date Visits Re quested Visits Authorized [id number] 1 1 Goals (unrecognized section and content) [...] [id number] (NoRateChange - Provider: Felicia K Herbert, UI DESIGNER - TIMBER RIDER) 1210 (Stopped - Provider: Tamiko Toledo RN [...] - Provider: Milagros Mccray RN) lidocaine-EPINEPHrine 1 %-[id number] injection (CANCELED) PRN, Starting on Sun07/20/23 at [...] BE BASED ON THE PRIMARY CLINICAL RECORDS. [facility] [employer] [facility]. provides no warranty or guarantee of the accuracy or completeness of information in this document.
--- NOTE | 2023-07-24 14:22 | P.PLCN_ITS ---
History of Present Illness History of Present Illness Consult date: 07/24/23 Chief complaint: WEAKNESS Narrative: 72yo female presents to [facility] ER with weakness, fatigue, and generally feeling unwell. This past Sunday on 07/19/2024, she underwent an L3-4 laminectomy @ [place] which, according to the patient, went very well. From what I can gather, there were no perioperative complications. She was discharged home in good condition. However, upon arrival at home, her overall function was doing poorly. She denies any aspiration events. She is only taking [place] twice daily, denies any additional medications which also contain acetaminophen. This morning, she developed worsening dyspnea along with a new cough and contacted EMS. She was hypoxic in the ambulance and was placed on a NRB, eventually transitioned to Vapotherm in the ER. Upon arrival to the ER, she was hypotensiv e at 72/57. Given the recent surgery with hypotension and hypoxia, there was concern for a pulmonary embolism, so a chest CTA was ordered. No emboli were seen - the radiologist reported Mild haziness and stranding within the mid and lower lung regions, coarsening of interstitial markings, and several stable small nodules, largest is within right middle lobe, 7 mm. There was a mild leukocytosis, along with an extremely elevated AST >1200 out of proportion to ALT, and normal procalcitonin. BNP and troponins were elevated in the presence of normal renal function; they were elevated during hospitalization for pneumonia in March 2023. Since arrival to the ICU, she has made a tremendous improvement clinically. O2 has been weaned down to nasal cannula on 3L/min. She did not require any pressors. She is awake and alert, sitting up in her chair. She denies any symptoms of dyspnea or chest pain at this time. Review of Systems ROS Status of ROS 10 or more systems reviewed and unremark able except as noted in history and below Constitutional Reports: fatigue; Denies: fever, chills or night sweats Respiratory Reports: shortness of breath and cough [facility] Medical History (Updated 07/24/23 @ 13:41 by Tanner Llamas MD) Type 2 diabetes mellitus with hyperglycemia ?E11.65 - Type 2 diabetes mellitus with hyperglycemia (ICD-10) Acute hypoxic respiratory failure ?J96.01 - Acute respiratory failure with hypoxia (ICD-10) CAD (coronary artery disease) ?I25.10 - Atherosclerotic heart disease of [place] coronary artery without angina pectoris (ICD-10) Multifocal pneumonia ?J18.9 - Pneumonia, unspecified organism (ICD-10) HTN (hypertension) ?I10 - Essential (primary) hypertension (ICD-10) Parkinson disease ?G20.A1 - Parkinson's disease without dyskinesia, without mention of fluctuations (ICD-10) Acute respiratory failure ?J96.00 - Acute respiratory failure, unspecified whether with hypoxia or hypercapnia (ICD-10) Dehydration ?E86.0 - Dehydration (ICD-10) Myocardial infarction ?I21.9 - Acute myocardial infarction, unspecified (ICD-10) Tobacco dependence ?F17.200 - Nicotine dependence, unspecified, uncomplicated (ICD-10) OAB (overactive bladder) ?N32.81 - Overactive bladder (ICD-10) Hyperlipidemia ?E78.5 - Hyperlipidemia, unspecified (ICD-10) DM2 (diabetes mellitus, type 2) ?E11.9 - Type 2 diabetes mellitus without complications (ICD-10) Surgical History (Updated 03/29/23 @ 15:26 by Luna Ying) History of cholecystectomy ?Z90.49 - Acquired absence of other specified parts of digestive tract (ICD- 10) Previous back surgery ?Z98.890 - Other specified postprocedural states (ICD-10) S/P triple vessel bypass ?Z95.1 - Presence of aortocoronary bypass graft (ICD-10) Family History (Updated 03/29/23 @ 11:57 by Luna Ying) Father Family history of CHF (congestive heart failure) Family history of cancer Mother Family history of CHF (congestive heart failure) Brother Family history of CHF (congestive heart failure) Social History (Updated 03/29/23 @ 11:54 by Luna Ying) Within the past year, how often did you have a drink containing alcohol: never Score interpretation: A score less than 3 is consistent with normal alcohol consumption. 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 Highest level of school completed/degree received: high school graduate Are you now , , , , never or living with a partner: In a typical week, how many times do you talk on the telephone with family, friends, or neighbors: 3 or more times per week How often do you get together with friends or relatives: 3 or more times per week How often do you attend gnosticism or church services: never Do you belong to any clubs or organizations such as gnosticism groups unions, fraternal or athletic groups, or school groups: no Total score: 2 Score interpretation: A score of greater than or equal to 2 indicates the lowest level of social isolation. Little interest or pleasure in doing things: not at all Feeling down, depressed, or hopeless: not at all Feel stressed/tense/nervous/anxious/difficulty sleeping: only a little Do you think of yourself as: straight/heterosexual Gender Identity: female Meds Home Medications and Allergies Home Medications ?Medication ?Instructions ?Recorded ?Confirmed ?Type atorvastatin 40 mg tablet 40 mg PO BEDTIME 03/29/23 07/24/23 History carbidopa 25 mg-levodopa 100 mg 1 tab PO QID 03/29/23 07/24/23 History tablet citalopram 40 mg tablet 40 mg PO QAM 03/29/23 07/24/23 History clopidogrel 75 mg tablet 75 mg PO DAILY 03/29/23 07/24/23 History hydrocodone 10 mg-acetaminophen 1 tab PO Q8H PRN pain 03/29/23 07/24/23 History 325 mg tablet isosorbide mononitrate 30 mg 30 mg PO DAILY 03/29/23 07/24/23 History tablet,extended release 24 hr metformin 750 mg tablet,extended 750 mg PO QDAY 03/29/23 07/24/23 History release 24 hr oxybutynin chloride 10 mg 10 mg PO .QD 03/29/23 07/24/23 History tablet,extended release 24 hr primidone 50 mg tablet 50 mg PO QID 03/29/23 07/24/23 History tizanidine 4 mg tablet 4 mg PO TID PRN muscle spasticity 03/29/23 07/24/23 His tory pregabalin 150 mg capsule 150 mg PO Q8H 07/24/23 07/24/23 History Allergies Allergy/AdvReac Type Severity Reaction Status Date / Time No Known Drug Allergies Allergy Verified 03/29/23 09:44 Exam Constitutional Vital Signs, click to edit/add: Last Vital Signs Temp 98.8 F 07/24/23 12:31 Pulse 71 07/24/23 12:31 Resp 18 07/24/23 12:31 BP 135/35 L 07/24/23 12:31 Pulse Ox 98 07/24/23 12:31 O2 Del Method Nasal Cannula 07/24/23 12:31 O2 Flow Rate 3 07/24/23 12:31 FiO2 75 07/24/23 05:15 Documenting provider has reviewed patient's vital signs: yes Common normals: no apparent distress HENMT Other: Mallampati III. No candidiasis. No mucosal erythema. Chest Common normals: inspection of chest normal Respiratory Other: Diminished with coarse breath sounds/crackles in the bases. Breathing appears unlabored. Cardio Rate: regular rate Rhythm: regular rhythm GI Inspection: normal to inspection Extremity Other: Trace edema LLE (chronic per patient) Neuro Sensorium/orientation: awake and alert Speech: speech normal Motor exam: tremor resting tremor (entire body) and pill-rolling tremor Results Laboratory Findings ABG, PT/INR, D-dimer: PT/INR, D-dimer PT 11.0 sec (9.0-11.6) 07/24/23 02:20 INR 1.04 07/24/23 02:20 Abnormal lab findings: Abnormal Labs 07/24/23 07/24/23 07/24/23 02:20 05:38 12:56 WBC 14.4 H Hgb 16.7 H Hct 51.2 H MCV 100.2 H Eos % (Auto) 0.4 L Neut # (Auto) 10.2 H Abs Immat Gran (auto) 0.06 H Potassium 3.3 L BUN 20.0 H Glucose 220 H Lactate 3.0 H* AST 1204 H* ALT 64 H Alkaline Phosphatase 229 H Troponin I High Sens 155.4 H* 151.9 H* 237.2 H* NT-Pro-B Natriuret Pep 1559.0 H* Albumin 3.0 L Assessment and Plan Assessment and Plan (1) HCAP (healthcare-associated pneumonia): Assessment and Plan: 1. HCAP. Working diagnosis. Infection (HCAP, aspiration) vs. pulmonary edema. Given hypotension, infiltrates, and leukocytosis - unable to R/O infectious etiology. She responded very well to resuscitative treatment. Would recommend continuing to err on the side of caution and continue with antibiotics for now. 2. Severe sepsis secondary to #1. WBC 14.4k and HR 95 on presentation with new acute hypoxic respiratory failure. Treat underlying disorder(s), supportive care. 3. NSTEMI type 2. Secondary to #1/2. HS-Troponin elevated at 237 with increased BNP 1559 in the presence of normal renal function. They were much higher last visit (HS-Tropinin >1500) but had returned to baseline by discharge. Though not as severe , I suspect the acute illness induced another NSTEMI episode. 4. Acute hypoxic respiratory failure. Secondary to #1/2. Baseline is room air. Required NRB and Vapotherm originally, now rapidly improving, down to 3L/min O2. 5. Elevated AST. Elevated at 1204, out of proportion to ALT at 64. On 04/03/2023, levels were normal with AST 21 and ALT 11. Etiology unclear - questioned increased acetaminophen use post-op, but she declines it. This may be associated with acute illness/sepsis. Will need monitored very closely. 6. Tobacco abuse. Currently smoking ~4 cigarettes/day. Smoking cessation counseling. 7. Parkinson's disease. Has moderate tremors in hands and overall body. It can have an increased risk of aspiration pneumonitis/pneumonia, but patient denied any aspiration or choking.
[2023-07-24] MEDS: CARBIDOPA/LEVODOPA 25 MG-100 MG TABLET 1 TAB PO ×3 (14:30→20:51)
[2023-07-24] MEDS: POTASSIUM CHLORIDE 10 MEQ ER TABLET PO ×2 (14:30→20:50)
[2023-07-24] MEDS: PRIMIDONE 50 MG TABLET PO ×3 (14:30→20:50)
[2023-07-24] MEDS: OXYBUTYNIN CHLORIDE 5 MG TAB XL 10 MG PO (14:30)
[2023-07-24] MEDS: LACTATED RINGER'S SOLUTION 1,000 ML 100 ML IV (14:30)
[2023-07-24] MEDS: PREGABALIN 75 MG CAPSULE 150 MG PO ×2 (14:30→20:51)
[2023-07-24] MEDS: CITALOPRAM HYDROBROMIDE 20 MG TABLET 40 MG PO (14:30)
[2023-07-24] MEDS: CLOPIDOGREL BISULFATE 75 MG TABLET PO (14:30)
[2023-07-24] MEDS: PANTOPRAZOLE SODIUM 40 MG VIAL IV (14:31)
--- NOTE | 2023-07-24 15:01 | SWNOTE1 ---
SW spoke with case management. Pt would like to use [facility] at discharge. Pt lives at home with . Referral sent to [facility] Referral included face sheet, ED note, H&P, and PT note.
[2023-07-24 15:59] LABS: Troponin I High Sensitivity 219.5 pg/mL (4.0-51.3)
--- NOTE | 2023-07-24 16:04 | SWNOTE1 ---
[facility] is able to accept.
[2023-07-24] MEDS: METFORMIN HCL 500 MG TAB.ER.24H 750 MG PO (17:00)
[2023-07-24] MEDS: HYDROCODONE/ACET 10-325 MG TABLET 1 TAB PO (17:00)
[2023-07-24] MEDS: INSULIN ASPART 300 UNIT/3 ML PEN SUBQ ×2 (17:01→22:53)
[2023-07-24] MEDS: VANCOMYCIN HCL 750 MG in 0.9 % SODIUM CHLORIDE 250 ML 250 MG IV (17:01)
[2023-07-24 17:05] LABS: Glucometer 185 mg/dL (74-106)
[2023-07-24 20:21] LABS: Glucometer 177 mg/dL (74-106)
[2023-07-24] MEDS: ACETAMINOPHEN 500 MG TABLET 1000 MG PO (20:50)
[2023-07-24] MEDS: PIPERACILLIN SODIUM/TAZOBACTAM 3.375 GM in 0.9 % SODIUM CHLORIDE 50 ML IV (21:04)
[2023-07-24] MEDS: ATORVASTATIN CALCIUM 40 MG TABLET PO (21:05)
--- NOTE | 2023-07-24 22:41 | PC.NURSE ---
Urine rosalinda in color
[2023-07-25] VITALS (32 sets, daily range): BP systolic 119–140; BP diastolic 39–64; PULSE 61–114; TEMP 36.8–37.3; O2SAT 82–944
[2023-07-25] MEDS: LACTATED RINGER'S SOLUTION 1,000 ML 100 ML IV (02:00)
[2023-07-25] MEDS: HYDROCODONE/ACET 10-325 MG TABLET 1 TAB PO ×2 (02:00→17:06)
[2023-07-25] MEDS: IPRATROPIUM/ALBUTEROL SULFATE 3 ML AMPUL.NEB IH ×4 (04:16→23:25)
[2023-07-25 04:54] LABS: Basophils Absolute Auto 0.1 10^3/uL (0.0-0.1); Basophils Percent Auto 0.6 % (0.2-2.0); Eosinophils Absolute Auto 0.2 10^3/uL (0.0-0.7); Eosinophils Percent Auto 2.2 % (0.9-7.0); Hematocrit 38.8 % (36.0-48.0); Hemoglobin 12.3 g/dL (12.0-16.0); Immature Granulocytes Abs Auto 0.03 10^3/uL (0.00-0.03); Immature Granulocytes Pct Auto 0.3 % (0.0-0.5); Lymphocytes Absolute Auto 3.2 10^3/uL (1.2-3.8); Lymphocytes Percent Auto 29.5 % (20.5-60.0); Mean Corpuscular HGB Conc 31.7 g/dL (29.9-35.2); Mean Corpuscular Hemoglobin 32.5 pg (26.7-34.0); Mean Corpuscular Volume 102.4 fL (81.0-99.0); Mean Platelet Volume 11.3 fL (9.5-13.5); Monocytes Absolute Auto 0.8 10^3/uL (0.3-0.8); Monocytes Percent Auto 7.6 % (1.7-12.0); Neutrophils Absolute Auto 6.5 10^3/uL (1.4-6.5); Neutrophils Percent Auto 59.8 % (43.0-75.0); Platelet Count 191 10^3/uL (150-450); Red Blood Count 3.79 10^6/uL (4.20-5.40); Red Cell Distribution Width 14.5 % (11.0-15.0); White Blood Count 10.8 10^3/uL (4.0-11.0)
[2023-07-25 05:25] LABS: Alanine Aminotransferase 96 U/L (14-59); Albumin Globulin Ratio 0.8; Albumin Level 2.8 g/dL (3.4-5.0); Alkaline Phosphatase 168 U/L (46-116); Anion Gap 11.1; Aspartate Amino Transferase 238 U/L (15-37); BUN Creatinine Ratio 20.6; Bilirubin Total 0.4 mg/dL (0.2-1.0); Chloride 109 mmol/L (98-107); Estimated GFR (African America >60 (>=60); Estimated GFR (Non-African Ame >60 (>=60); Globulin 3.3 g/dL; Glucose 140 mg/dL (74-106); Magnesium 1.4 mg/dL (1.8-2.4); Potassium 4.1 mmol/L (3.5-5.1); Sodium 144 mmol/L (136-145); Total Protein 6.1 g/dL (6.4-8.2)
[2023-07-25 05:35] LABS: Troponin I High Sensitivity 4335.2 pg/mL (4.0-51.3)
[2023-07-25 06:34] LABS: Bilirubin Urine NEGATIVE (NEGATIVE); Blood Urine NEGATIVE (NEGATIVE); Clarity Urine CLEAR (CLEAR); Color Urine LT. YELLOW (YELLOW); Glucose Urine UA NEGATIVE (NEGATIVE); Ketones Urine NEGATIVE (NEGATIVE); Leukocyte Esterase Urine NEGATIVE (NEGATIVE); Nitrite Urine NEGATIVE (NEGATIVE); Protein Urine NEGATIVE (NEG/TRACE); Specific Gravity Urine <=1.005 (1.005-1.025); Urobilinogen Urine 0.2 EU/dL (0.2-1.0); pH Urine 5.5 (5.0-9.0)
[2023-07-25 06:40] LABS: Urine Microscopic Indicated NO
[2023-07-25] MEDS: PIPERACILLIN SODIUM/TAZOBACTAM 3.375 GM in 0.9 % SODIUM CHLORIDE 50 ML IV ×3 (06:42→22:55)
[2023-07-25] MEDS: PRIMIDONE 50 MG TABLET PO ×4 (06:43→22:49)
[2023-07-25] MEDS: CARBIDOPA/LEVODOPA 25 MG-100 MG TABLET 1 TAB PO ×4 (06:43→22:49)
--- NOTE | 2023-07-25 07:12 | PM.PLPN ---
Progress Note: A&P Assessment and Plan (1) HCAP (healthcare-associated pneumonia): Assessment and Plan: 1. HCAP. Working diagnosis. Infection (HCAP, aspiration) vs. pulmonary edema. Signs may be related to post-op changes, or even an anginal-equivalent, but as we cannot R/O pneumonia completely, recommend completing a course of antibiotics. 2. Severe sepsis secondary to #1. As above, cannot completely R/O infection, so continue supportive care.? Hypotension associated with cardiac event? 3. NSTEMI type 2. Secondary to #1/2. HS-Troponin jumped from 237 to 4335 ? GFR remains >60 ? I do not feel this is consistent with chronic troponin elevation ? it has never been this high in the past.? Currently asymptomatic for chest pain. ?Cardiology consulted. 4. Acute hypoxic respiratory failure. Secondary to #1/2. Had desaturation last night, but currently on RA.? Can be assessed for SUSAN outpatient. 5. Elevated AST. Improved AST, but ALT slightly increased.? Shock liver associated with hypotension? 6. Tobacco abuse. Discussed yet again on the importance of smoking cessation and now would be an excellent time to just quit completely.? 7. Parkinson's disease. No aspiration events reported overnight. Plan Nothing further to recommend from a pulmonary standpoint. Will sign off. Reconsult if needed. Thank you. Subjective Subjective Interval history: Patient is doing better. She had mild desaturation during sleep, but currently is on the bedside commode on RA with SpO2 ~95%. Denies any significant dyspnea, coughing, or wheezing. No chest pain reported. Reviewed labs - HS-Troponin increased to >4k. AST down. Exam Constitutional Vital Signs, click to edit/add: Last Vital Signs Temp 98.2 F 07/24/23 23:30 Pulse 70 07/25/23 04:18 Resp 18 07/25/23 04:18 BP 95/50 07/24/23 23:30 Pulse Ox 98 07/25/23 04:32 O2 Del Method Venturi Mask 07/25/23 04:32 O2 Flow Rate 30 07/25/23 04:32 FiO2 4 07/25/23 04:32 Documenting provider has reviewed patient's vital signs: yes Common normals: no apparent distress HENMT Other: Mallampati III. No candidiasis. Chest Common normals: inspection of chest normal Respiratory Other: Unlabored breathing. Significant improvement in bibasilar crackles. No wheezes. Cardio Rate: regular rate Rhythm: regular rhythm GI Inspection: normal to inspection Extremity Other: Trace edema LLE (chronic per patient) Neuro Common normals: oriented x3 Sensorium/orientation: awake and alert Speech: speech normal Motor exam: tremor resting tremor (entire body) and pill-rolling tremor
--- NOTE | 2023-07-25 07:39 | ECG_ITS ---
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
--- NOTE | 2023-07-25 07:39 | CA_ITS ---
Patient Name: JAXSON QUEZADA MR#: [id number] : 1950 Exam Date: 07/25/2023 Ordering Doctor: DR ALE STONE . ECHOCARDIOGRAM REPORT PROCEDURE: CA ECHO LIMITED INDICATIONS: Elevated Trop and BNP, Parkinson's, hypertension, diabetes COMPARISON: None. DESCRIPTION: Limited ECHOCARDIOGRAM Real-time transthoracic echocardiography with 2D and M-mode performed. QUALITY: Technical quality was good. Limited echocardiogram per physician order. 64 , 131#, BSA 1.63 m2, BP 127/64 LEFT VENTRICLE: Normal chamber size. LV EF: Global left ventricular systolic function is mildly reduced; visually estimated ejection fraction is 40 to 45%. Abnormal septal motion due to prior open-heart surgery. Calculated left ventricular ejection fraction is 42%. Hypokinesis of the inferior and inferolateral cuadra. LEFT ATRIUM: Severe dilatation. RIGHT ATRIUM: Normal chamber size. RIGHT VENTRICLE: Normal chamber size. TRICUSPID VALVE: Normal mobility and thickness. MITRAL VALVE: Mildly thickened with normal mobility. Mild mitral annular calcification. AORTIC VALVE: Normal trileaflet appearance. Severely calcified aortic valve with diminished mobility. AORTIC ROOT: Normal diameter and appearance. PULMONIC VALVE: Normal thickness and mobility. PERICARDIUM: No evidence of pericardial effusion. IVC: IVC is normal in size, does not collapse. CONCLUSION: 1. Global left ventricular systolic function is mildly reduced; visually estimated ejection fraction is 40 to 45% 2. Segmental wall motion abnormality seen 3. The left atrium is severely dilated 4. Aortic valve is severely calcific A limited echocardiogram was performed Adult Echocardiography Procedure Report Left Ventricle LVEDD (3.7 - 5.6 cm): 5.02 cm LVESD (2.2 - 4.0 cm): 4.28 cm LVIVS thickness (0.6 - 1.2 cm): 1.00 cm LVPW thickness (0.5 - 1.0 cm): 1.02 cm LVOT Diameter 2.15 cm Left Atrium LA Volume Index (2D A2C): 50.06 ml/m2 Left Atrium Systolic Dimension: 2.77 cm Mitral Valve Right Ventricle Aorta AO Root Diam: 2.93 cm Aortic Valve Tricuspid Valve Pulmonic Valve Right Atrium Right Atrium Systolic Pressure: 33.52 ml, 33.52 ml Dictated by: Claritza Bello M.D. on 07/25/2023 at 15:39 Approved by: Claritza Bello M.D. on 07/25/2023 at 15:42
--- NOTE | 2023-07-25 07:41 | P.PN_ITS ---
Exam Constitutional Vital Signs, click to edit/add: Last Vital Signs Temp 98.7 F 07/25/23 05:00 Pulse 64 07/25/23 06:00 Resp 20 07/25/23 05:00 BP 140/47 L 07/25/23 05:00 Pulse Ox 944 H 07/25/23 06:00 O2 Del Method Room Air 07/25/23 05:00 O2 Flow Rate 30 07/25/23 04:32 FiO2 4 07/25/23 04:32 Progress Note: Objective Labs Labs: Short CBC 07/25/23 Range/Units 04:45 WBC 10.8 (4.0-11.0) 10^3/uL Hgb 12.3 (12.0-16.0) g/dL Hct 38.8 (36.0-48.0) % Plt Count 191 (150-450) 10^3/uL BMP 07/25/23 04:45 Sodium 144 Potassium 4.1 Chloride 109 H Carbon Dioxide 28.0 BUN 14.0 Creatinine 0.68 Glucose 140 H Calcium 9.0 Liver Function 07/25/23 Range/Units 04:45 Total Bilirubin 0.4 (0.2-1.0) mg/dL AST 238 H (15-37) U/L ALT 96 H (14-59) U/L Alkaline Phosphatase 168 H (46-116) U/L Albumin 2.8 L (3.4-5.0) g/dL Urine 07/24/23 Range/Units 05:30 Urine Color Lt. yellow (YELLOW) Urine Clarity Clear (CLEAR) Urine pH 5.5 (5.0-9.0) Ur Specific [place] <=1.005 A (1.005-1.025) Urine Protein Negative (NEG/TRACE) mg/dL Urine Glucose (UA) Negative (NEGATIVE) mg/dL Progress Note: A&P Assessment and Plan (1) HCAP (healthcare-associated pneumonia): Plan Sinus tachycardia, respiratory distress, severe hypotension with blood pressure 72/57, severe hypoxia resp failure with O2 saturation of 82% on room air, patient placed on Vapotherm with improvement in her oxygenation. She was given IV fluid boluses for the hypotension. Given frequent breathing treatments while in the emergency room and so far is improving. This morning continues to improve. Case was discussed with pulmonology. Continue current treatment plan at least 1 additional day. She did have a hypoxic event overnight with an O2 saturation of 82% but rebounded quickly placed on Ventimask and that has been weaned off currently. Leukocytosis improving Parkinson's disease-continue with current medications-with events overnight, consider aspiration the patient did not have cough at the time Vwtctgmzgqk-mfyhslyujq-gvwtnxzi supplementation, improved today Hypomagnesemia-supplement Iron deficiency anemia-monitor daily-Down somewhat today Lumbar disc disease with recent laminectomy-patient states pain is much improved since prior to surgery, physical therapy Occupational Therapy to work with patient Elevated liver function test-possibly related to the severe sepsis as outlined above, somewhat improved today. Chronically elevated high-sensitivity troponin and BNP-significant elevation in her high-sensitivity troponin this morning. Higher than in the past. At this point we will check echocardiogram, repeat EKG, repeat high-sensitivity troponin. Consult to cardiology. BNP improved today NIDDM-insulin sliding scale-maintain current dosing Admission status: Patient with recent laminectomy, hospitalized, now with healthcare acquired pneumonia, severe sepsis, medically necessary treatment will span 2 midnights. Inpatient status maintained ?
[2023-07-25] MEDS: VANCOMYCIN HCL 750 MG in 0.9 % SODIUM CHLORIDE 250 ML 250 MG IV ×2 (08:05→17:02)
[2023-07-25] MEDS: CITALOPRAM HYDROBROMIDE 20 MG TABLET 40 MG PO (08:06)
[2023-07-25] MEDS: OXYBUTYNIN CHLORIDE 5 MG TAB XL 10 MG PO (08:06)
[2023-07-25] MEDS: PREGABALIN 75 MG CAPSULE 150 MG PO ×3 (08:06→22:55)
[2023-07-25] MEDS: POTASSIUM CHLORIDE 10 MEQ ER TABLET PO ×2 (08:06→22:49)
[2023-07-25] MEDS: MAGNESIUM OXIDE 400 MG TABLET PO ×2 (08:06→22:49)
[2023-07-25] MEDS: CLOPIDOGREL BISULFATE 75 MG TABLET PO (08:07)
--- NOTE | 2023-07-25 08:08 | CM.NOTE ---
Rounds made with Dr. Llamas. No plan for discharge today.
--- NOTE | 2023-07-25 11:50 | PT.DAILY ---
Physical Therapy Daily Note PT Daily Note/Assess Start: 07/25/23 11:48 Freq: Status: Active Protocol: Document 07/25/23 11:48 DARRION (Rec: 07/25/23 11:50 KAILEYRODRIGOBEN [id number]) Physical Therapy Daily Note/Assessment Time In/Time Out Time In 11:18 Time Out 11:30 Pain In Pain N/A Pain Out Pain N/A Subjective Subjective Sitting in BS chair upon arrival. States she walked down to take a shower this morning and has worked with OT today. Feeling much better. Agreeable to PT. Therapeutic Exercise Time Therapeutic Exercise Minutes (minutes) 3 Therapeutic Exercise Units 0 Therapeutic Exercise Treatment Therapeutic Exercise Treatment Seated bilat LE strengthening ex complete in BS chair 10x ea . Therapeutic Activity Time Therapeutic Activity Minutes (minutes) 7 Therapeutic Activity Units 1 Therapeutic Activity Treatment Chair Transfer Ability Modified Independent Therapeutic Activity Comments Sit>stand to RW Enrike with assist for tele lines. Pt amb 3 laps in room for 180' total with RW, SBA with assist for tele lines. Pt returned to BS chair to complete seated ex. Remains in BS chair upon completion with call light in reach and needs met. Total Physical Therapy Time Total Therapy Minutes 10 Total Physical Therapy Units 1 Summary Daily Note Summary Improved transfer and gait ability today.
[2023-07-25] MEDS: INSULIN ASPART 300 UNIT/3 ML PEN SUBQ (11:53)
[2023-07-25 12:01] LABS: Glucometer 179 mg/dL (74-106)
[2023-07-25 13:40] LABS: Troponin I High Sensitivity 4345.4 pg/mL (4.0-51.3)
--- NOTE | 2023-07-25 13:42 | SWNOTE1 ---
Important Message from Medicare reviewed and discussed with patient. Pt. verbalized understanding and signed the form. Original given to patient and copy placed in patient?s chart.
--- NOTE | 2023-07-25 15:15 | CONS_ITS ---
CARDIOLOGY CONSULTATION CONSULTATION DATE: ??07/25/2023 HISTORY OF PRESENT ILLNESS:? Patient is a 72-year-old female with past medical history including CAD, status post CABG, (ALMARAZ to LAD, SVG to D1, SVG to OM1), ischemic cardiomyopathy, COPD, hypertension, type 2 diabetes mellitus, who presented to the hospital with complaints of dizziness and weakness.? Patient is recently post-op from spinal surgery.? Upon admission, patient was noted to be hypotensive and presumed to be septic due to a lung infection.? Patient was admitted for further evaluation/management.?? Cardiology was consulted given elevated cardiac enzymes.? Of note, patient was noted to have a high sensitivity troponin, which started at 155 and went up to 4345.? Patient was interviewed and examined.? She denies any chest pain.? Of note:? Patient adamantly denied any chest pain.? She denies any chest pain prior to admission.? She denies any chest pain at the present time. ?She does endorse some shortness of breath, but otherwise denies any additional cardiac symptoms.? She denies any lower extremity edema, orthopnea, paroxysmal nocturnal dyspnea.? She states that her surgery went smoothly, and she denies any issue. CARDIOLOGY REVIEW OF SYSTEMS:? Ten point ROS was performed and was negative, unless otherwise specified in HPI. PAST MEDICAL HISTORY: She has past medical history of coronary artery disease, status post CABG, diabetes mellitus, GERD, hypertension, hyperlipidemia and ischemic cardiomyopathy. SURGICAL HISTORY:? Patient is status post CABG.? Patient is status post spinal surgery on Sunday. SOCIAL HISTORY:? Patient is a cigarette smoker.? She denies any recreational drug use.? She denies any significant alcohol consumption. FAMILY HISTORY:? Noncontributory. ALLERGIES:? Augmentin. HOME MEDICATIONS:? 1.? Aspirin 81 mg daily. 2.? Atorvastatin 20 mg daily. 3.? Sinemet 25-100 daily. 4.? Celexa 40 mg daily. 5.? Plavix 75 mg daily. PHYSICAL EXAMINATION: Vital Signs: ?Blood pressure 121/39, pulse 108, respiratory rate 18, temperature 98.2, O2 sat 96%, oxygen delivery, room air. General:? Alert and oriented x3, no acute distress. HEENT:? Atraumatic, normocephalic. Eyes:? PERRLA.? Extraocular movements intact.? Neck:? No significant JVD. Cardiovascular:? Tachycardic, regular rhythm.? Patient has a systolic ejection murmur at the right upper sternal border.? Lungs:?? Patient has bibasilar crackles.? Abdomen:? Soft, non- tender, non-distended. Extremities:? No lower extremity edema, erythema or cyanosis.? Neurologic:? No focal neurological deficits. CARDIAC STUDIES: EKG demonstrates sinus rhythm, no acute ST abnormalities. Echocardiogram with limited views: Patient was noted to have mildly reduced EF, 40-45.? Patient was noted to have segmental wall motion abnormalities.? She was noted to have abnormal septal motion, in addition to hypokinesis of the inferior/inferolateral cuadra.? ASSESSMENT/PLAN: 1.? NSTEMI, type I versus type II. 2.? Patient denies any chest pain; however, she had significant elevation in her high sensitivity troponin, in addition to newly reduced EF and segmental wall motion abnormalities.? Cannot rule out type I NSTEMI, despite no chest pain, especially in the setting of recent surgery. 3.? Would recommend continuing anti-platelet regimen.? If there are no contraindications for anticoagulation, recommend starting the patient on heparin GTT. 4.? Would recommend continuing troponin trend until troponin plateaus and down trends. 5.? Would recommend ischemic evaluation after acute illness resolves, given new drop in EF in addition to wall motion abnormalities. 6.? For patient?s pneumonia, would recommend continued treatment as per primary team. 7.? Continue supportive care. 8.? Continue aspirin, Plavix, statin for CAD. 9.? Patient will need optimization of GDMT for her reduced ejection fraction after acute illness resolves and blood pressure allows. Thank you for allowing us to participate in the care of this patient.? Please do not hesitate to contact [facility] with any questions/concerns. ELIZABETH
[2023-07-25 16:32] LABS: Vancomycin Trough 8.7 ug/mL (5.0-20.0)
[2023-07-25] MEDS: METFORMIN HCL 500 MG TAB.ER.24H 750 MG PO (17:03)
[2023-07-25 17:11] LABS: Glucometer 139 mg/dL (74-106)
[2023-07-25] MEDS: HEPARIN SODIUM (PORCINE) 5,000 UNIT/ML VIAL 2300 UNIT IV (18:33)
[2023-07-25] MEDS: HEPARIN SODIUM,PORCINE/D5W 25,000 UNIT/500 ML IV.SOLN 13.5999999999999996 UNIT IV (18:39)
[2023-07-25 19:05] LABS: INR 0.99; Partial Thromboplastin Time 28.6 sec (22.3-36.2); Prothrombin Time 10.5 sec (9.0-11.6)
[2023-07-25 21:22] LABS: Glucometer 146 mg/dL (74-106)
[2023-07-25 21:52] LABS: Troponin I High Sensitivity 2303.9 pg/mL (4.0-51.3)
[2023-07-25] MEDS: ATORVASTATIN CALCIUM 40 MG TABLET PO (22:49)
[2023-07-25] MEDS: TIZANIDINE HCL 4 MG TABLET PO (22:55)
[2023-07-26] VITALS (35 sets, daily range): BP systolic 113–128; BP diastolic 59–72; PULSE 66–115; TEMP 36.6; O2SAT 91–97
[2023-07-26] MEDS: HYDROCODONE/ACET 10-325 MG TABLET 1 TAB PO ×2 (01:31→08:07)
[2023-07-26 01:38] LABS: Basophils Absolute Auto 0.1 10^3/uL (0.0-0.1); Basophils Percent Auto 0.6 % (0.2-2.0); Eosinophils Absolute Auto 0.3 10^3/uL (0.0-0.7); Eosinophils Percent Auto 2.6 % (0.9-7.0); Hematocrit 34.4 % (36.0-48.0); Hemoglobin 11.4 g/dL (12.0-16.0); Immature Granulocytes Abs Auto 0.03 10^3/uL (0.00-0.03); Immature Granulocytes Pct Auto 0.3 % (0.0-0.5); Lymphocytes Absolute Auto 2.8 10^3/uL (1.2-3.8); Mean Corpuscular HGB Conc 33.1 g/dL (29.9-35.2); Mean Corpuscular Volume 99.7 fL (81.0-99.0); Mean Platelet Volume 11.5 fL (9.5-13.5); Monocytes Absolute Auto 0.7 10^3/uL (0.3-0.8); Neutrophils Absolute Auto 6.5 10^3/uL (1.4-6.5); Neutrophils Percent Auto 62.5 % (43.0-75.0); Platelet Count 164 10^3/uL (150-450); Red Blood Count 3.45 10^6/uL (4.20-5.40); White Blood Count 10.4 10^3/uL (4.0-11.0)
[2023-07-26 01:56] LABS: PTT Heparin Monitor 35.9 sec (48.2-68.6)
[2023-07-26 01:59] LABS: Alanine Aminotransferase 28 U/L (14-59); Albumin Globulin Ratio 0.9; Albumin Level 2.7 g/dL (3.4-5.0); Alkaline Phosphatase 166 U/L (46-116); Anion Gap 9.9; Aspartate Amino Transferase 89 U/L (15-37); BUN Creatinine Ratio 21.7; Bilirubin Total 0.3 mg/dL (0.2-1.0); Calcium 9.1 mg/dL (8.5-10.1); Carbon Dioxide 28.8 mmol/L (21.0-32.0); Chloride 104 mmol/L (98-107); Estimated GFR (African America >60 (>=60); Estimated GFR (Non-African Ame >60 (>=60); Globulin 3.1 g/dL; Glucose 166 mg/dL (74-106); Potassium 3.7 mmol/L (3.5-5.1); Sodium 139 mmol/L (136-145); Total Protein 5.8 g/dL (6.4-8.2)
[2023-07-26 02:01] LABS: Troponin I High Sensitivity 1574.2 pg/mL (4.0-51.3)
[2023-07-26] MEDS: IPRATROPIUM/ALBUTEROL SULFATE 3 ML AMPUL.NEB IH ×2 (04:44→10:37)
[2023-07-26] MEDS: LIDOCAINE 5% PATCH 1 PATCH TOPICAL (04:56)
[2023-07-26] MEDS: PIPERACILLIN SODIUM/TAZOBACTAM 3.375 GM in 0.9 % SODIUM CHLORIDE 50 ML IV ×2 (04:57→11:22)
[2023-07-26] MEDS: VANCOMYCIN HCL 1,000 MG in 0.9 % SODIUM CHLORIDE 250 ML 250 MG IV (04:59)
[2023-07-26] MEDS: PREGABALIN 75 MG CAPSULE 150 MG PO (05:00)
[2023-07-26] MEDS: PRIMIDONE 50 MG TABLET PO ×2 (05:00→11:22)
[2023-07-26] MEDS: TIZANIDINE HCL 4 MG TABLET PO (05:00)
[2023-07-26] MEDS: CARBIDOPA/LEVODOPA 25 MG-100 MG TABLET 1 TAB PO ×2 (05:00→11:22)
[2023-07-26 07:30] LABS: Glucometer 177 mg/dL (74-106)
--- NOTE | 2023-07-26 08:00 | P.DS_ITS ---
DS: Providers Provider Date of admission: 07/24/23 13:04 Primary care physician: Non-Staff Physician, Consults: 07/24/23 12:31 Consult to Pharmacy Routine Consulting Provider: Reason for consultation: Please [place] me when Med Rec is Updated Has provider been notified: No Consult to Pulmonology Routine Consulting Provider: Devin Wheeler Reason for consultation: Nosocomial pneumonia Has provider been notified: No Occupational Therapy Eval and Treat Routine Reason for consultation: Only if needed for Rehab Has provider been notified: No Physical Therapy Eval and Treat Routine Reason for consultation: Eval and Treat Has provider been notified: No 07/25/23 06:26 Consult to Cardiology Routine Reason for consultation: elevated HST Has provider been notified: No DS: Diagnosis Discharge Diagnosis (1) HCAP (healthcare-associated pneumonia): Plan On admission with : sinus tachycardia, respiratory distress, severe hypotension with blood pressure 72/57, severe hypoxia resp failure with O2 saturation of 82% on room air, patient placed on Vapotherm with improvement in her oxygenation. She was given IV fluid boluses for the hypotension. Given frequent breathing treatments while in the emergency room and so far is improving. Improving at the time of discharge Acute NSTEMI-significant elevation in her troponin, change in echocardiogram, stable at the time of discharge on heparin drip, transferring to [facility] Parkinson's disease-stable at discharge Svkrbwwrukv-gpgapidhxt-bgqhtmkv supplementation, resolved Hypomagnesemia-supplement Iron deficiency anemia-monitor daily-Down somewhat today Lumbar disc disease with recent laminectomy-patient states pain is much improved since prior to surgery, physical therapy Occupational Therapy to work with patient Elevated liver function test-possibly related to the severe sepsis as outlined above, somewhat improved today. Chronically elevated high-sensitivity troponin and BNP-significant elevation in her high-sensitivity troponin this morning. Higher than in the past. At this point we will check echocardiogram, repeat EKG, repeat high-sensitivity troponin. Consult to cardiology. BNP improved today NIDDM-insulin sliding scale-maintain current dosing Admission status: Patient with recent laminectomy, hospitalized, now with healthcare acquired pneumonia, severe sepsis, medically necessary treatment will span 2 midnights. Inpatient status maintained ? ? DS: Summary Hospital Course Hospital Course: Patient presented to the emergency room with increasing shortness of breath and has severe hypoxia requiring Vapotherm. Found to have healthcare acquired pneumonia. With acute hypoxic respiratory failure. He has chronically elevated troponins. She was placed on IV antibiotics Zosyn and vancomycin. She responded fairly well to that able to be weaned off of her supplemental oxygen fairly quickly. The following day though she did develop an elevation in her high-sensitivity troponin. Echocardiogram was completed which at the end of the day showed a significant reduction in her ejection fraction compared to previous. EKG shows no ST elevation. Cardiology evaluated patient and felt she had an NSTEMI at some point either related to the surgery or within the hypertension with her pneumonia. Recommending transfer for heart cath, patient was placed on a heparin drip. She is stable overnight. Case discussed with [facility] who agreed to accept patient in transfer for cardiac catheterization. Time Spent with Patient Time attestation: Total time spent providing and/or coordinating discharge services: Exam Constitutional Vital Signs, click to edit/add: Last Vital Signs Temp 97.8 F 07/26/23 07:34 Pulse 101 H 07/26/23 07:30 Resp 22 H 07/26/23 07:30 BP 113/72 07/26/23 07:26 Pulse Ox 96 07/26/23 07:30 O2 Del Method Room Air 07/26/23 07:34 O2 Flow Rate 30 07/25/23 04:32 FiO2 4 07/25/23 04:32 Documenting provider has reviewed patient's vital signs: yes Common normals: apparent distress (Mild respiratory distress with cough throughout the evaluation) Chest Common normals: inspection of chest normal and palpation of chest normal Respiratory Common normals: abnormal respiratory effort (Mild respiratory distress) Effort & inspection: tachypneic and respiratory distress Auscultation: rhonchi throughout Cardio Common normals: no JVD, regular rate and regular rhythm Jugular venous distention: other GI Common normals: Normal to inspection, nondistended, normoactive bowel sounds present Extremity Common normals: normal to inspection, full ROM, normal capillary refill, no calf tenderness and no pedal edema DS: Data Data Completed and Pending Labs on day of discharge: Labs from last 24 hours 07/26/23 07/26/23 07/25/23 07:22 01:27 21:20 WBC 10.4 RBC 3.45 L Hgb 11.4 L Hct 34.4 L MCV 99.7 H MCH 33.0 MCHC 33.1 RDW 14.0 Plt Count 164 MPV 11.5 Neut % (Auto) 62.5 Lymph % (Auto) 27.0 [place] % (Auto) 7.0 Eos % (Auto) 2.6 Baso % (Auto) 0.6 Neut # (Auto) 6.5 Lymph # (Auto) 2.8 [place] # (Auto) 0.7 Eos # (Auto) 0.3 Baso # (Auto) 0.1 Abs Immat Gran (auto) 0.03 Imm/Tot Granulo (auto) 0.3 PT INR APTT PTT (Heparin Absorb) 35.9 L* Sodium 139 Potassium 3.7 Chloride 104 Carbon Dioxide 28.8 Anion Gap 9.9 BUN 15.0 Creatinine 0.69 Est GFR ( Amer) >60 Est GFR (Non-Af Amer) >60 BUN/Creatinine Ratio 21.7 Glucose 166 H Calcium 9.1 Total Bilirubin 0.3 AST 89 H ALT 28 Alkaline Phosphatase 166 H Troponin I High Sens 1574.2 H* 2303.9 H* NT-Pro-B Natriuret Pep 2795.0 H* Total Protein 5.8 L Albumin 2.7 L Globulin 3.1 Albumin/Globulin Ratio 0.9 Vancomycin Trough POC Glucose 177 H 146 H 07/25/23 07/25/23 07/25/23 18:28 17:00 15:52 WBC RBC Hgb Hct MCV MCH MCHC RDW Plt Count MPV Neut % (Auto) Lymph % (Auto) [place] % (Auto) Eos % (Auto) Baso % (Auto) Neut # (Auto) Lymph # (Auto) [place] # (Auto) Eos # (Auto) Baso # (Auto) Abs Immat Gran (auto) Imm/Tot Granulo (auto) PT 10.5 INR 0.99 APTT 28.6 PTT (Heparin Absorb) Sodium Potassium Chloride Carbon Dioxide Anion Gap BUN Creatinine Est GFR ( Amer) Est GFR (Non-Af Amer) BUN/Creatinine Ratio Glucose Calcium Total Bilirubin AST ALT Alkaline Phosphatase Troponin I High Sens NT-Pro-B Natriuret Pep Total Protein Albumin Globulin Albumin/Globulin Ratio Vancomycin Trough 8.7 POC Glucose 139 H 07/25/23 07/25/23 07/25/23 12:40 11:51 10:13 WBC RBC Hgb Hct MCV MCH MCHC RDW Plt Count MPV Neut % (Auto) Lymph % (Auto) [place] % (Auto) Eos % (Auto) Baso % (Auto) Neut # (Auto) Lymph # (Auto) [place] # (Auto) Eos # (Auto) Baso # (Auto) Abs Immat Gran (auto) Imm/Tot Granulo (auto) PT INR APTT PTT (Heparin Absorb) Sodium Potassium Chloride Carbon Dioxide Anion Gap BUN Creatinine Est GFR ( Amer) Est GFR (Non-Af Amer) BUN/Creatinine Ratio Glucose Calcium Total Bilirubin AST ALT Alkaline Phosphatase Troponin I High Sens 4345.4 H* 4.3 NT-Pro-B Natriuret Pep Total Protein Albumin Globulin Albumin/Globulin Ratio Vancomycin Trough POC Glucose 179 H Discharge Plan Discharge Disposition: Xfer Acute Care Hospital Condition: Serious
[2023-07-26] MEDS: CITALOPRAM HYDROBROMIDE 20 MG TABLET 40 MG PO (08:07)
[2023-07-26] MEDS: CLOPIDOGREL BISULFATE 75 MG TABLET PO (08:07)
[2023-07-26] MEDS: POTASSIUM CHLORIDE 10 MEQ ER TABLET PO (08:07)
[2023-07-26] MEDS: OXYBUTYNIN CHLORIDE 5 MG TAB XL 10 MG PO (08:07)
[2023-07-26] MEDS: MAGNESIUM OXIDE 400 MG TABLET PO (08:07)
[2023-07-26] MEDS: INSULIN ASPART 300 UNIT/3 ML PEN SUBQ (08:08)
--- NOTE | 2023-07-26 08:18 | CM.NOTE ---
Rounds made with Dr. Llamas, discussed with pt regarding elevated troponins and need for transfer to [facility] for heart cath. Dr. Llamas discussed case with desktop operator stone chimney mason.
[2023-07-26 09:21] LABS: PTT Heparin Monitor 37.6 sec (48.2-68.6)
[2023-07-26 11:12] LABS: Glucometer 135 mg/dL (74-106)
--- NOTE | 2023-07-26 13:16 | SWNOTE1 ---
Pt is being transferred, SW notified Rosita ADAIR.
--- NOTE | 2023-07-26 13:51 | PC.NURSE ---
report given to [facility]. pt taken to exit via stretcher.
--- NOTE | 2023-07-26 14:11 | PC.NURSE ---
report called to christian at [phone], [facility]
[2023-07-27 07:56] LABS: Troponin I High Sensitivity 4408.9 pg/mL (4.0-51.3)
== END 2023-07-26 14:05 | disposition short-term general hospital (02) | DRG 871 ==
LOC: ER 07:22 → ICU 13:06
PROVIDERS: Internal Medicine Cardiovascular Disease; Student in an Organized Health Care Education/Training Program; Admitting Provider Family Medicine; Emergency Provider Emergency Medicine; Visit Provider Family Medicine
DX: A41.9 Sepsis, unspecified organism (principal); I21.A1 Myocardial infarction type 2; J18.9 Pneumonia, unspecified organism; J96.01 Acute respiratory failure with hypoxia; R65.20 Severe sepsis without septic shock; R74.01 Elevation of levels of liver transaminase levels; G20.A1 Parkinson's disease without dyskinesia, without mention of fluctuations; E87.6 Hypokalemia; E83.42 Hypomagnesemia; D50.9 Iron deficiency anemia, unspecified; E11.9 Type 2 diabetes mellitus without complications; M51.9 Unspecified thoracic, thoracolumbar and lumbosacral intervertebral disc disorder; E78.5 Hyperlipidemia, unspecified; N32.81 Overactive bladder; I10 Essential (primary) hypertension; I25.10 Atherosclerotic heart disease of native coronary artery without angina pectoris; K21.9 Gastro-esophageal reflux disease without esophagitis; F17.210 Nicotine dependence, cigarettes, uncomplicated; Y95 Nosocomial condition; Z79.899 Other long term (current) drug therapy; Z98.890 Other specified postprocedural states; Z79.84 Long term (current) use of oral hypoglycemic drugs; Z90.49 Acquired absence of other specified parts of digestive tract; Z95.1 Presence of aortocoronary bypass graft; Z20.822 Contact with and (suspected) exposure to COVID-19; I25.5 Ischemic cardiomyopathy; Z79.02 Long term (current) use of antithrombotics/antiplatelets
CPT/HCPCS: 0202U; 36415; 71045; 71275; 74177; 80053; 80202; 81003; 82805; 82948; 83605; 83690; 83735; 83880; 84145; 84484; 85025; 85610; 85730; 87040; 87070; 93005; 93308; 93356; 94640; 94667; 94668; 94761; 94799; 96361; 96365; 96366; 96367; 96368; 96375; 96376; 97162; 97165; 97530; 99285; G0328; J3370; Q9967

== ENCOUNTER 2023-08-09 13:48 | Outpatient (REF) | payer MEDICARE, MEDICAID, SELFPAY ==
[2023-08-09 14:44] LABS: Anion Gap 15.9; BUN Creatinine Ratio 31.3; Calcium 9.4 mg/dL (8.5-10.1); Carbon Dioxide 25.9 mmol/L (21.0-32.0); Chloride 102 mmol/L (98-107); Estimated GFR (African America >60 (>=60); Estimated GFR (Non-African Ame >60 (>=60); Glucose 101 mg/dL (74-106); Potassium 4.8 mmol/L (3.5-5.1); Sodium 139 mmol/L (136-145)
== END 2023-08-09 13:49 | disposition home or self-care (01) ==
LOC: LAB 13:48
PROVIDERS: Visit Provider Internal Medicine
DX: E87.70 Fluid overload, unspecified (principal)
CPT/HCPCS: 36415; 80048

== ENCOUNTER 2023-11-09 13:15 | Outpatient (OUT) | payer MEDICARE, MEDICAID, SELFPAY ==
--- OUTSIDE RECORDS SUMMARY | 2023-11-09 13:23 | XMS_ITS | CCD ---
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 Role Phone PHYSICIAN, DEFAULT Unavailable Unavailable [...] Unavailable FIDENCIO, DR TREVINO Primary Care Unavailable ZIEBER, DR BLAYNE Ellis Consulting Unavailable CHANTEL, REBECA Consulting Unavailable FIDENCIO, DR TREVINO Admitting Unavailable FIDENCIO, DR TREVINO Attending Unavailable FIDENCIO, DR TREVINO Primary Care Unavailable CHANTEL, REBECA Admitting Unavailable CHANTELREBECA Attending Unavailable FIDENCIO, DR TREVINO Primary Care Unavailable FIDENCIO, DR TREVINO Consulting Unavailable DELMI, DR CHARY Gonzalez Consulting Unavailable CHANTELREBECA Consulting Unavailable SINGH, YASMEEN Admitting Unavailable SINGH, YASMEEN Attending Unavailable FIDENCIO, DR TREVINO Primary Care Unavailable HEGARRET LUIS Consulting Unavailable SINGH, YASMEEN Consulting Unavailable FIDENCIO, DR TREVINO Admitting Unavailable FIDENCIO, DR TREVINO Attending Unavailable FIDENCIO, DR TREVINO Primary Care Unavailable FIDENCIO, DR TREVINO Consulting Unavailable DELMI, DR CHARY Gonzalez Consulting Unavailable Villa Nicolas MD Primary Care Provider [phone] Villa Nicolas MD Primary Care Provider [phone] Villa Nicolas MD Unavailable [phone] Sabi WRIGHT, Montse Unavailable MD Aron Rain Attending Provider JOSHUA Nicolas Primary Care Provider Aron Rain Attending Unavailable Aron Rain Admitting Unavailable Fidencio Villa Primary Care Unavailable TAMMYEFLINGERCHRISTIAN Admitting Unavailable HOEFLINGER, CHRISTIAN Attending Unavailable FIDENCIO VILLA B Primary Care Unavailable NICOLAS, VILLA B Primary Care Unavailable HOEFLINGER, CHRISTIAN Referring Unavailable HOEFLINGER, CHRISTIAN Referring Unavailable NICOLAS, VILLA B Primary Care Unavailable PIRKL, SELENE Referring Unavailable HORANI, CHRIS Referring Unavailable HORANI, CHRIS Referring Unavailable HORANI, CHRIS Referring Unavailable MASON, DIONE Attending Unavailable MASON, DIONE Attending Unavailable BERNADINE, PRESLEY Attending Unavailable WITHERELLROSANA Attending Unavailable PIRKL, SELENE Referring Unavailable HOY, ALE Referring Unavailable BRUCE, SÁNCHEZ Admitting Unavailable RADHA, DEENA Attending Unavailable HOY, ALE Referring Unavailable HORANI, CHRIS Admitting Unavailable ISAI, SARMED Attending Unavailable ISAI, SARMED Referring Unavailable HORANI, CHRIS Referring Unavailable ELTAHAWY, EHAB Referring Unavailable HOEFLINGER, CHRISTIAN Referring Unavailable NICOLAS, VILLA B Primary Care Unavailable VILLA NICOLAS B Attending Unavailable TIMZOË WEN Attending Unavailable FIDENCIO VILLA B Referring Unavailable HEMMERTIKA Attending Unavailable HEMMERTIKA Attending Unavailable GERMÁNCRYSTAL Attending Unavailable TIMMIZOË Coulter Referring Unavailable JAMIA FUNEZ Attending Unavailable SUNSHINE CHOI Attending Unavailable VILLA NICOLAS Attending Unavailable MATI WHITE Attending Unavailable SUNSHINE CHOI Attending Unavailable VILLA NICOLAS B Attending Unavailable Allergies Allergy Classification Reported Allergen(s) Allergy Type Date of Onset Reaction(s) Facility (4 sources) amoxicillin / clavulanate; Translations: [Augmentin] Drug Allergy 0 [facility] Repository (1 source) Penicillins Drug allergy (disorder) 0 [facility] Repository (1 source) DULoxetine Drug Allergy 7 [facility] Repository (1 source) OXcarbazepine Drug Allergy 7 [facility] Repository (5 sources) DULoxetine Drug Allergy 7 Hives, Other (See Comments) [facility] (4 sources) false ragweed pollen extract / western ragweed pollen extract Drug Allergy 3 Rash, Other (See Comments) [facility] (4 sources) OXcarbazepine Drug Allergy 7 Other (See Comments) [facility] (6 sources) Amoxicillin-Pot Clavulanate; Translations: [AMOXICILLIN-POT CLAVULANATE] Propensity to adverse reactions to drug 0 Angioedema [facility] (1 source) Penicillin G Drug Allergy 3 Unknown [facility] (1 source) Mixed Ragweed Propensity to adverse reactions 3 [facility] (4 sources) Amoxicillin; Translations: [amoxicillin] Drug Allergy 4 [facility] (4 sources) Clavulanate; Translations: [clavulanic acid] Drug Allergy 4 [facility] Medications Current Medications Medication Drug Class(es) Dates [...] entacapone 200 mg oral tablet (1 source) Nnqrbfwd-J-Cibgknbghlldccpgk Inhibitor entacapone (Comtan) 200 MG tablet Take [...] 4 mg (1 source) Star t: 06-25 24 ondansetron (ZOFRAN-ODT) disintegrating tablet 4 mg Completed/Discontinued [...] tablet by mouth every eight hours HYDROcodone-acetaminophen ([place]ie[place]) 10-325 MG tablet Indications: Intervertebral disc disorder [...] First dose on Sun07/21/23 at 0900, Until Discontinued Start: 06-25-2023 Citalopram [...] sources) Polyene Antifungal End: 07-20-2023 nystatin (MYCOSTATIN) 168064 UNIT/GM powder Apply 1 application topically in the morning and 1 application in the evening. 0 07/20/2023 Discontinued (Stop Taking at Discharge) nystatin (Mycost atin) 752509 UNIT/GM powder every 12 (twelve) hours. 0 Active 24 hr oxybutynin chloride 10 mg extended release oral tablet (9 sources) Cholinergic Muscarinic Antagonist Start: 06-25-2023 Oxybutynin Chloride Active MG PO June 25, 2023 12:00am Start: 09-13-2022 take 10 mg by mouth once daily in the morning 10 mg, Oral, EVERY MORNING, First dose on Sun07/21/23 at 0900, Until Discontinued Do not crush [...] 1645, Until Discontinued Start: 06-25-2023 Pregabalin Act agnelo MG PO June 25, 2023 12:00am Start: 04-30-2014 take 1 capsule by mo kyh at bedtime pregabalin (LYRICA) 200 MG capsule [...] Problem Classification Problem Date Documented Date Episodic/Chronic Acute myocardial infarction (2 sources) Non-ST elevation (NSTEMI) myocardial infarction; Translations: [Non-ST elevation (NSTEMI) myocardial infarction] Onset: 07-26-2023 Chronic Anxiety disorders (1 source) Mixed anxiety and [...] Coronary arteriosclerosis; Translations: [Atherosclerotic heart disease of nome coronary artery without angina pectoris] Onset: 08-10-2022 08-10-2022 Chronic Coronary atherosclerosis and other heart disease (2 sources) Presence of aortocoronary bypass graft; Translations: [Presence of aortocoronary bypass graft] Onset: 07-26-2023 Episodic 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 [...] Chronic Other acquired deformities (2 sources) Spondylolisthesis, site [...] and visceral atherosclerosis (20 sources) 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, bilateral [...] [Foot drop, left foot] Onset: 02-02-2023 Episodic Cardiac dysrhythmias (1 source) Palpitations; Translations: [Palpitations] Onset: 08-16-2011 04-23-2023 Episodic Malaise and fatigue (1 source) Asthenia; Translations: [Weakness] Onset: 08-10-2022 08-10-2022 Episodic Other acquired deformities (2 sources) Spondylolisthesis, lumbar region; Translations: [Spondylolisthesis, lumbar region] Onset: 02-02-2023 Episodic Other circulatory disease (1 source) Other [...] Value Interpretation Reference Range Facility Orders Onlyon 09-14-2023 Orders Only [id number] Abhinav Quezaad W 1950 Provider Department Center 09/14/2023 KATHERINE BONDS Family History Problem Relation Age of Onset Hypertension Mother ALS Father Family Status - Relation Status Age at Mother Father [facility] 36on 09-06-2023 36 Please have her get labs done in the next week or 2 since. Just wanted to make sure her kidney function is doing okay with her new medications. Also, would like to see her for follow-up in 6 weeks instead of 3 months just to check in and make sure she is doing okay with her new medications, BP is okay, etc. Thanks! [facility] Telephoneon 09-06-2023 Telephone [id number] Abhinav Quezada W 1950 Provider Department Center 09/06/2023 PRESLEY HODGES Family History Problem Relation Age of Onset Hypertension Mother ALS Father Family Status - Relation Status Age at Mother Father [facility] 37on 08-28-2023 37 *Use up your current prescription of metoprolol. When this runs out, switch to new metoprolol succinate prescription that is 25 mg once day. *Plan for follow-up heart ultrasound (ECHO) in 3 months. [facility] Office Visiton 08-28-2023 Follow-up visit [id number] Abhinav Quezada W 1950 Date Provider Department Center 08/28/2023 PRESLEY HODGES CARD [facility] Family History Problem Relation Age of Onset Hypertension Mother ALS Father Family Status - Relation Status Age at Mother Father Level of Service:59419 [place] OFFICE/OUTPATIENT ESTABLISHED MOD MDM 30 MIN Reason for Visit and Comments: Coronary Artery Disease [187] Congestive Heart Failure [127] Hospital Follow-up [832] NSTEMI [Other] Normal [facility] Orders Onlyon 08-28-2023 Orders Only [id number] Abhinav Quezada W 1950 Date Provider Department Center 08/28/2023 KATHERINE BONDS CARD [facility] Family History Problem Relation Age of Onset Hypertension Mother ALS Father Family Status - Relation Status Age at Mother Father Normal [facility] BASIC METABOLIC PANELon 05-0 Anion gap [Moles/Vol] 10 mmol/L Normal 7-20 [facility] Comment on above: Performed By: #### L [id number] #### [facility] ([facility]) [address] [place] [address] Calcium [Mass/Vol] 8.6 mg/dL Normal 8.6-10.3 [facility] Comment on above: Performed By: #### L [id number] #### [facility] ([facility]) [address] [place] [address] Chloride [Moles/Vol] 106 mmol/L Normal 98-107 [facility] Comment on above: Performed By: #### L [id number] #### [facility] ([facility]) [address] [place] [address] CO2 [Moles/Vol] 24 mmol/L Normal 21-31 [facility] Comment on above: Performed By: #### L [id number] #### [facility] ([facility]) [address] [place] [address] Creatinine [Mass/Vol] 0.66 mg/dL Normal 0.60-1.20 [facility] Comment on above: Performed By: #### L [id number] #### [facility] ([facility]) [address] [place] [address] GLOMERULAR FILTRATION RATE ML/MIN/1.73 SQ M.PREDICTED 93.1 mL/min/1.73m*2 Normal >60.0 [facility] Comment on above: Result Comment: [facility]???s estimated glomerular filtration rate (eGFR) [...] group of individuals. Performed By: #### L [id number] #### [facility] ([facility]) [address] [place] [address] Glucose [Mass/Vol] 131 mg/dL High 70-100 [facility] Comment on above: Performed By: #### L [id number] #### [facility] ([facility]) [address] [place] [address] Potassium [Moles/Vol] 4.3 mmol/L Normal 3.5-5.1 [facility] Comment on above: Performed By: #### L [id number] #### [facility] ([facility]) [address] [place] [address] Sodium [Moles/Vol] 136 mmol/L Normal 136-145 [facility] Comment on above: Performed By: #### L [id number] #### [facility] ([facility]) [address] [place] [address] Urea nitrogen [Mass/Vol] 22 mg/dL Normal 7-25 [facility] Comment on above: Performed By: #### L [id number] #### [facility] ([facility]) [address] [place] [address] UREA NITROGEN/CREATININE (MASS RATIO) IN SER/PLAS 33.3 Normal [facility] Comment on above: Performed By: #### L [id number] #### [facility] ([facility]) [address] [place] [address] CBCon 07-31-2023 Erythrocyte distribution width (RBC) [Ratio] 14.0 % Normal 11.5-15.0 [facility] Comment on above: Performed By: #### L [id number] #### [facility] ([facility]) [address] [place] [address] ERYTHROCYTE MEAN CORPUSCULAR HEMOGLOBIN CONCENTRATION (G/DL) BY AUTOMATED 33.8 g/dL Normal 32.0-35.0 [facility] Comment on above: Performed By: #### L [id number] #### [facility] ([facility]) [address] [place] [address] Hematocrit (Bld) [Volume fraction] 40.5 % Normal 36.0-48.0 [facility] Comment on above: Performed By: #### L [id number] #### [facility] ([facility]) [address] [place] [address] Hemoglobin (Bld) [Mass/Vol] 13.7 g/dL Normal 12.0-15.0 [facility] Comment on above: Performed By: #### L [id number] #### [facility] ([facility]) [address] [place] [address] MCH (RBC) [Entitic mass] 32.5 pg Normal 27.0-33.0 [facility] Comment on above: Performed By: #### L [id number] #### [facility] [address] [place] [address] MCV (RBC) [Entitic vol] 96.2 fL Normal 82.0-98.0 [facility] Comment on above: Performed By: #### L [id number] #### [facility] [address] [place] [address] PLATELETS (10*3/UL) IN BLOOD AUTOMATED COUNT 209 10*3/uL Normal 150-400 [facility] Comment on above: Performed By: #### L [id number] #### [facility] ([facility]) [address] [place] [address] RBC (Bld) [#/Vol] 4.21 10*6/uL Normal 3.80-5.00 [facility] Comment on above: Performed By: #### L [id number] #### [facility] ([facility]) [address] [place] [address] WBC (Bld) [#/Vol] 8.83 10*3/uL Normal 4.00-10.60 [facility] Comment on above: Performed By: #### L [id number] #### [facility] ([facility]) [address] [place] [address] MAGNESIUMon 07-31-2023 Magnesium [Mass/Vol] 1.5 mg/dL Low 1.9-2.7 [facility] Comment on above: Performed By: #### L [id number] #### [facility] ([facility]) [address] [place] [address] NURSNOTEon 07-31-2023 NURSNOTE Report given to transport, pt discharged to home via stretcher with [facility] NURSNOTE AVS reviewed with pt , pt verbalizes understanding [facility] POCT GLUCOSE METER UNSOLICIT ED RESULTSon 07-31-2023 Glucose [Mass/Vol] 195 mg/dL High 70-105 [facility] Comment on above: Order Comment: Waive d Testing in the ED is performed under the ED CLIA certificate #[id number]. Result Comment: [email or web address] dic Performed By: #### L [id number] #### [facility] ([facility]) [address] [place] [address] Glucose [Mass/Vol] 170 mg/dL High 70-105 [facility] Comment on above: Order Comment: Waive d Testing in the ED is performed under the ED CLIA certificate #[id number]. Result Comment: [email or web address] Performed By: #### L [id number] #### [facility] (BEAKER) [address] [place] [address] 30on 07-30-2023 30 The patient is Moderately Stable - Low risk of patient condition declining or worsening The patient's goals for the shift include comfort, rest The clinical goals for the shift include stable vitals, no bleeding Normal [facility] 30 The patient is Moderately Stable - Low risk of patient condition declining or worsening The patient's goals for the shift include complete testing The clinical goals for the shift include vss, increased mobilization Over the shift, the patient didmake progress toward the following goals. Barriers to progression include n/a. Recommendations to address these barriers include n/a. Problem: Pain - Adult Goal: Verbalizes/displays adequate comfort level or baseline comfort level Outcome: Progressing Problem: Safety - Adult Goal: Free from fall injury Outcome: Progressing Problem: Discharge Planning Goal: Discharge to home or other facility with appropriate resources Outcome: Progressing Problem: Chronic Conditions and Co-morbidities Goal: Patient's chronic conditions and co-morbidity symptoms are monitored and maintained or improved Outcome: Progressing Problem: Cardiovascular - Adult Goal: Maintains optimal cardiac output and hemodynamic stability Outcome: Progressing Problem: Musculoskeletal - Adult Goal: Return mobility to safest level of function Outcome: Progressing Problem: Skin/Tissue Integrity - Adult Goal: Skin integrity remains intact Outcome: Progressing Goal: Incisions, wounds, or drain sites healing without S/S of infection Outcome: Progressing Normal [facility] BASIC METABOLIC PANELon 05-0 Anion gap [Moles/Vol] 11 mmol/L Normal 7-20 [facility] Comment on above: Performed By: #### L [id number] #### [facility] ([facility]) [address] [place] [address] Calcium [Mass/Vol] 9.0 mg/dL Normal 8.6-10.3 [facility] Comment on above: Performed By: #### L [id number] #### [facility] ([facility]) [address] [place] [address] Chloride [Moles/Vol] 105 mmol/L Normal 98-107 [facility] Comment on above: Performed By: #### L [id number] #### [facility] [address] [place] [address] CO2 [Moles/Vol] 28 mmol/L Normal 21-31 [facility] Comment on above: Performed By: #### L [id number] #### [facility] ([facility]) [address] [place] [address] Creatinine [Mass/Vol] 0.97 mg/dL Normal 0.60-1.20 [facility] Comment on above: Performed By: #### L [id number] #### [facility] ([facility]) [address] [place] [address] GLOMERULAR FILTRATION RATE ML/MIN/1.73 SQ M.PREDICTED 62.1 mL/min/1.73m*2 Normal >60.0 [facility] Comment on above: Result Comment: [facility]???s estimated glomerular filtration rate (eGFR) [...] group of individuals. Performed By: #### L [id number] #### [facility] ([facility]) [address] [place] [address] Glucose [Mass/Vol] 141 mg/dL High 70-100 [facility] Comment on above: Performed By: #### L [id number] #### [facility] ([facility]) [address] [place] [address] Potassium [Moles/Vol] 4.7 mmol/L Normal 3.5-5.1 [facility] Comment on above: Performed By: #### L [id number] #### [facility] ([facility]) [address] [place] [address] Sodium [Moles/Vol] 139 mmol/L Normal 136-145 [facility] Comment on above: Performed By: #### L [id number] #### [facility] (BE[facility]ER) [address] [place] [address] Urea nitrogen [Mass/Vol] 28 mg/dL High 7-25 [facility] Comment on above: Performed By: #### L [id number] #### [facility] [address] [place] [address] UREA NITROGEN/CREATININE (MASS RATIO) IN SER/PLAS 28.9 Normal [facility] Comment on above: Performed By: #### L [id number] #### [facility] ([facility] [address] [address] CBCon 07-30-2023 Erythrocyte distribution width (RBC) [Ratio] 14.1 % Normal 11.5-15.0 [facility] Comment on above: Performed By: #### L [id number] #### [facility] ([facility] [address] [place] [address] ERYTHROCYTE MEAN CORPUSCULAR HEMOGLOBIN CONCENTRATION (G/DL) BY AUTOMATED 33.1 g/dL Normal 32.0-35.0 [facility] Comment on above: Performed By: #### L [id number] #### [facility] [address] [place] [address] Hematocrit (Bld) [Volume fraction] 42.9 % Normal 36.0-48.0 [facility] Comment on above: Performed By: #### L [id number] #### [facility] (BEAKER) [address] [place] [address] Hemoglobin (Bld) [Mass/Vol] 14.2 g/dL Normal 12.0-15.0 [facility] Comment on above: Performed By: #### L [id number] #### [facility] ([facility]ER) [address] [place] [address] MCH (RBC) [Entitic mass] 32.2 pg Normal 27.0-33.0 [facility] Comment on above: Performed By: #### L [id number] #### [facility] ([facility]) [address] [place] [address] MCV (RBC) [Entitic vol] 97.3 fL Normal 82.0-98.0 [facility] Comment on above: Performed By: #### L [id number] #### [facility] ([facility]) [address] [place] [address] PLATELETS (10*3/UL) IN BLOOD AUTOMATED COUNT 224 10*3/uL Normal 150-400 [facility] Comment on above: Performed By: #### L [id number] #### [facility] ([facility]) [address] [place] [address] RBC (Bld) [#/Vol] 4.41 10*6/uL Normal 3.80-5.00 [facility] Comment on above: Performed By: #### L [id number] #### [facility] ([facility]) [address] [place] [address] WBC (Bld) [#/Vol] 8.50 10*3/uL Normal 4.00-10.60 [facility] Comment on above: Performed By: #### L [id number] #### [facility] ([facility]) [address] [place] [address] HPon 07-30-2023 HP H&P reviewed. 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 Absent L radial pulse Healing incision lower back with staple in place. No drainage or erythema I have discussed with her the rationale, risks and benefits for cath +/- PCI. She understands and consents to proceed. Plan R femoral approach given absent L radial and need to image grafts. Her risk of groin infection is somewhat increased due to diaper use, and will try to avoid use of closure device. Normal [facility] NURSNOTEon 07-30-2023 NURSNOTE Report given to KYLE Jon from Soraya WRIGHT Any medications or safety alerts were reviewed. Any pending diagnostics and notifications were also reviewed, as well as any safety concerns or issues, abnormal labs, abnormal imagining, and abnormal assessment findings. Questions were answered. Normal [facility] POCT GLUCOSE METER UNSOLICIT ED RESULTSon 07-30-2023 Glucose [Mass/Vol] 140 mg/dL High 70-105 [facility] Comment on above: Order Comment: Waive d Testing in the ED is performed under the ED CLIA certificate #[id number]. Result Comment: [email or web address] [email or web address] Performed By: #### L [id number] #### [facility] ([facility]) [address] [place] [address] Glucose [Mass/Vol] 116 mg/dL High 70-105 [facility] Comment on above: Order Comment: Waive d Testing in the ED is performed under the ED CLIA certificate #[id number]. Result Comment: [email or web address] [email or web address] Performed By: #### L [id number] #### [facility] [address] [place] [address] Glucose [Mass/Vol] 179 mg/dL High 70-105 [facility] [facility] Comment on above: Order Comment: Waive d Testing in the ED is performed under the ED CLIA certificate #[id number]. Result Comment: [email or web address] Performed By: #### L [id number] #### [facility] ([facility]) [address] [place] [address] TROPONIN Ion 07-30-2023 Troponin I.cardiac [Mass/Vol] 0.21 ng/mL Critically high 0.00-0.04 [facility] Comment on above: Result Comment: Prev ious result verified on 07/29/2023 1859 on specimen/case [id number] called with component Troponin I for procedure Troponin I with value 0.34 ng/mL. Performed By: #### L [id number] #### [facility] ([facility]) [address] [facility] [place] [address] 30on 07-29-2023 30 The patient is Moderately Stable - Low risk of patient condition declining or worsening The patient's goals for the shift include rest, comfort The clinical goals for the shift include comfort, compliance with wedges for offloading Problem: Pain - Adult Goal: Verbalizes/displays adequate comfort level or baseline comfort level Outcome: Progressing Problem: Safety - Adult Goal: Free from fall injury Outcome: Progressing Problem: Discharge Planning Goal: Discharge to home or other facility with appropriate resources Outcome: Progressing Problem: Chronic Conditions and Co-morbidities Goal: Patient's chronic conditions and co-morbidity symptoms are monitored and maintained or improved Outcome: Progressing Normal [facility] BASIC METABOLIC PANELon 05-0 Anion gap [Moles/Vol] 11 mmol/L Normal 7-20 [facility] Comment on above: Performed By: #### L [id number] #### [facility] ([facility]) [address] [place] [address] Calcium [Mass/Vol] 8.8 mg/dL Normal 8.6-10.3 [facility] Comment on above: Performed By: #### L [id number] #### [facility] ([facility]) [address] [place] [address] Chloride [Moles/Vol] 105 mmol/L Normal 98-107 [facility] Comment on above: Performed By: #### L [id number] #### [facility] ([facility]) [address] [place] [address] CO2 [Moles/Vol] 26 mmol/L Normal 21-31 [facility] Comment on above: Performed By: #### L [id number] #### [facility] [address] [place] [address] Creatinine [Mass/Vol] 0.71 mg/dL Normal 0.60-1.20 [facility] Comment on above: Performed By: #### L [id number] #### [facility] ([facility]) [address] [place] [address] GLOMERULAR FILTRATION RATE ML/MIN/1.73 SQ M.PREDICTED 90.3 mL/min/1.73m*2 Normal >60.0 [facility] Comment on above: Result Comment: [facility]???s estimated glomerular filtration rate (eGFR) [...] group of individuals. Performed By: #### L [id number] #### [facility] ([facility]) [address] [place] [address] Glucose [Mass/Vol] 136 mg/dL High 70-100 [facility] Comment on above: Performed By: #### L [id number] #### [facility] ([facility]) [address] [place] [address] Potassium [Moles/Vol] 3.9 mmol/L Normal 3.5-5.1 [facility] Comment on above: Performed By: #### L [id number] #### [facility] ([facility]) [address] [place] [address] Sodium [Moles/Vol] 138 mmol/L Normal 136-145 [facility] Comment on above: Performed By: #### L [id number] #### [facility] ([facility]) [address] [place] [address] Urea nitrogen [Mass/Vol] 21 mg/dL Normal 7-25 [facility] Comment on above: Performed By: #### L [id number] #### [facility] ([facility]) [address] [facility] [place] [address] UREA NITROGEN/CREATININE (MASS RATIO) IN SER/PLAS 29.6 Normal [facility] Comment on above: Performed By: #### L [id number] #### [facility] ([facility]) [address] [place] [address] CBCon 07-29-2023 Erythrocyte distribution width (RBC) [Ratio] 14.3 % Normal 11.5-15.0 [facility] Comment on above: Performed By: #### L [id number] #### [facility] ([facility]) [address] [place] [address] ERYTHROCYTE MEAN CORPUSCULAR HEMOGLOBIN CONCENTRATION (G/DL) BY AUTOMATED 34.4 g/dL Normal 32.0-35.0 [facility] Comment on above: Performed By: #### L [id number] #### [facility] ([facility]) [address] [place] [address] Hematocrit (Bld) [Volume fraction] 40.4 % Normal 36.0-48.0 [facility] Comment on above: Performed By: #### L [id number] #### [facility] ([facility]) [address] [place] [address] Hemoglobin (Bld) [Mass/Vol] 13.9 g/dL Normal 12.0-15.0 [facility] Comment on above: Performed By: #### L [id number] #### [facility] ([facility]) [address] [place] [address] MCH (RBC) [Entitic mass] 33.3 pg High 27.0-33.0 [facility] Comment on above: Performed By: #### L [id number] #### [facility] ([facility]) [address] [place] [address] MCV (RBC) [Entitic vol] 96.9 fL Normal 82.0-98.0 [facility] Comment on above: Performed By: #### L [id number] #### [facility] ([facility]) [address] [place] [address] PLATELETS (10*3/UL) IN BLOOD AUTOMATED COUNT 216 10*3/uL Normal 150-400 [facility] Comment on above: Performed By: #### L [id number] #### [facility] [address] [place] [address] RBC (Bld) [#/Vol] 4.17 10*6/uL Normal 3.80-5.00 [facility] Comment on above: Performed By: #### L [id number] #### [facility] ([facility]) [address] [place] [address] WBC (Bld) [#/Vol] 8.45 10*3/uL Normal 4.00-10.60 [facility] Comment on above: Performed By: #### L [id number] #### [facility] ([facility]) [address] [place] [address] POCT GLUCOSE METER UNSOLICIT ED RESULTSon 07-29-2023 Glucose [Mass/Vol] 175 mg/dL High 70-105 [facility] Comment on above: Order Comment: Waive d Testing in the ED is performed under the ED CLIA certificate #[id number]. Result Comment: [email or web address] Performed By: #### L [id number] #### [facility] ([facility]) [address] [place] [address] Glucose [Mass/Vol] 164 mg/dL High 70-105 [facility] Comment on above: Order Comment: Waive d Testing in the ED is performed under the ED CLIA certificate #[id number]. Result Comment: [email or web address] Performed By: #### L [id number] #### [facility] ([facility]) [address] [place] [address] Glucose [Mass/Vol] 166 mg/dL High 70-105 [facility] Comment on above: Order Comment: Waive d Testing in the ED is performed under the ED CLIA certificate #[id number]. Result Comment: [email or web address] Performed By: #### L [id number] #### [facility] ([facility]) [address] [place] [address] Glucose [Mass/Vol] 134 mg/dL High 70-105 [facility] Comment on above: Order Comment: Waive d Testing in the ED is performed under the ED CLIA certificate #[id number]. Result Comment: [email or web address] Performed By: #### L [id number] ####[facility] ([facility])[address] [place] [address] TROPONIN Ion 07-29-2023 Troponin I.cardiac [Mass/Vol] 0.31 ng/mL Critically high 0.00-0.04 [facility] Comment on above: Result Comment: M-TX EVIOUS CRITICAL RESULT Previous result verified on 07/29/2023 1859 on specimen/case [id number] called with component Troponin I for procedure Troponin I with value 0.34 ng/mL. Performed By: #### L [id number] #### [facility] ([facility]) [address] [place] [address] Troponin I.cardiac [Mass/Vol] 0.34 ng/mL Critically high 0.00-0.04 [facility] Comment on above: Performed By: #### L [id number] #### [facility] ([facility]) [address] [place] [address] Troponin I.cardiac [Mass/Vol] 0.33 ng/mL Critically high 0.00-0.04 [facility] Comment on above: Result Comment: Prev ious result verified on 07/28/2023 181 on specimen/case [id number] called with component Troponin I for procedure Troponin I with value 0.55 ng/mL. Performed By: #### L [id number] #### [facility] ([facility]) [address] [place] [address] Troponin I.cardiac [Mass/Vol] 0.42 ng/mL Critically high 0.00-0.04 [facility] Comment on above: Result Comment: Prev ious result verified on 07/28/2023 181 on specimen/case [id number] called with component Troponin I for procedure Troponin I with value 0.55 ng/mL. Performed By: #### L [id number] #### [facility] ([facility]) [address] [place] [address] Troponin I.cardiac [Mass/Vol] 0.58 ng/mL Critically high 0.00-0.04 [facility] Comment on above: Result Comment: M-TX EVIOUS CRITICAL RESULT Previous result verified on 07/28/20231813 on specimen/case [id number] called with component Troponin I for procedure Troponin I with value 0.55 ng/mL. Performed By: #### L [id number] #### [facility] ([facility]) [address] [place] [address] 30on 07-28-2023 30 The patient is Moderately Stable - Low risk of patient condition declining or worsening The patient's goals for the shift include comfort and safety The clinical goals for the shift include comfort and safety Over the shift, the patient did not make progress toward the following goals. Barriers to progression include weakness. Recommendations to address these barriers include call light in reach, slippers socks applied, bed alarm/chair alarm on. Normal [facility] BASIC METABOLIC PANELon 05-0 Anion gap [Moles/Vol] 13 mmol/L Normal 7-20 [facility] Comment on above: Performed By: #### L [id number] #### [facility] ([facility]) [address] [place] [address] Calcium [Mass/Vol] 8.6 mg/dL Normal 8.6-10.3 [facility] Comment on above: Performed By: #### L [id number] #### [facility] ([facility]) [address] [place] [address] Chloride [Moles/Vol] 107 mmol/L Normal 98-107 [facility] Comment on above: Performed By: #### L [id number] #### [facility] ([facility]) [address] [place] [address] CO2 [Moles/Vol] 23 mmol/L Normal 21-31 [facility] Comment on above: Performed By: #### L [id number] #### [facility] ([facility]) [address] [place] [address] Creatinine [Mass/Vol] 0.65 mg/dL Normal 0.60-1.20 [facility] Comment on above: Performed By: #### L [id number] #### [facility] ([facility]) [address] [place] [address] GLOMERULAR FILTRATION RATE ML/MIN/1.73 SQ M.PREDICTED 93.5 mL/min/1.73m*2 Normal >60.0 [facility] Comment on above: Result Comment: [facility]???s estimated glomerular filtration rate (eGFR) [...] group of individuals. Performed By: #### L [id number] #### [facility] ([facility]) [address] [place] [address] Glucose [Mass/Vol] 135 mg/dL High 70-100 [facility] Comment on above: Performed By: #### L [id number] #### [facility] ([facility]) [address] [place] [address] Potassium [Moles/Vol] 4.1 mmol/L Normal 3.5-5.1 [facility] Comment on above: Performed By: #### L [id number] #### [facility] ([facility]) [address] [place] [address] Sodium [Moles/Vol] 139 mmol/L Normal 136-145 [facility] Comment on above: Performed By: #### L [id number] #### [facility] ([facility]) [address] [place] [address] Urea nitrogen [Mass/Vol] 16 mg/dL Normal 7-25 [facility] Comment on above: Performed By: #### L [id number] #### [facility] ([facility]) [address] [place] [address] UREA NITROGEN/CREATININE (MASS RATIO) IN SER/PLAS 24.6 Normal [facility] Comment on above: Performed By: #### L [id number] #### [facility] ([facility]) [address] [place] [address] CBCon 07-28-2023 Erythrocyte distribution width (RBC) [Ratio] 14.1 % Normal 11.5-15.0 [facility] Comment on above: Performed By: #### L [id number] #### [facility] ([facility]) [address] [place] [address] ERYTHROCYTE MEAN CORPUSCULAR HEMOGLOBIN CONCENTRATION (G/DL) BY AUTOMATED 33.5 g/dL Normal 32.0-35.0 [facility] Comment on above: Performed By: #### L [id number] #### [facility] ([facility]) [address] [place] [address] Hematocrit (Bld) [Volume fraction] 40.6 % Normal 36.0-48.0 [facility] Comment on above: Performed By: #### L [id number] #### [facility] ([facility]) [address] [place] [address] Hemoglobin (Bld) [Mass/Vol] 13.6 g/dL Normal 12.0-15.0 [facility] Comment on above: Performed By: #### L [id number] #### [facility] ([facility]) [address] [place] [address] MCH (RBC) [Entitic mass] 32.6 pg Normal 27.0-33.0 [facility] Comment on above: Performed By: #### L [id number] #### [facility] ([facility]) [address] [place] [address] MCV (RBC) [Entitic vol] 97.4 fL Normal 82.0-98.0 [facility] Comment on above: Performed By: #### L [id number] #### [facility] ([facility]) [address] [place] [address] PLATELETS (10*3/UL) IN BLOOD AUTOMATED COUNT 199 10*3/uL Normal 150-400 [facility] Comment on above: Performed By: #### L [id number] #### [facility] ([facility]) [address] [place] [address] RBC (Bld) [#/Vol] 4.17 10*6/uL Normal 3.80-5.00 [facility] Comment on above: Performed By: #### L [id number] #### [facility] ([facility]) [address] [place] [address] WBC (Bld) [#/Vol] 7.57 10*3/uL Normal 4.00-10.60 [facility] Comment on above: Performed By: #### L [id number] #### [facility] ([facility]) [address] [place] [address] NURSNOTEon 07-28-2023 DEAN Spoke with Desiree in [employer]. She states there are no [employer] pumps at this time yet and does not know when they will arrive back in stock. Normal [facility] POCT GLUCOSE METER UNSOLICIT ED RESULTSon 07-28-2023 Glucose [Mass/Vol] 138 mg/dL High 70-105 [facility] Comment on above: Order Comment: Waive d Testing in the ED is performed under the ED CLIA certificate #[id number]. Result Comment: [email or web address] Performed By: #### L [id number] #### [facility] ([facility]) [address] [place] [address] Glucose [Mass/Vol] 111 mg/dL High 70-105 [facility] Comment on above: Order Comment: Waive d Testing in the ED is performed under the ED CLIA certificate #[id number]. Result Comment: [email or web address] Performed By: #### L [id number] #### [facility] ([facility]) [address] [place] [address] Glucose [Mass/Vol] 220 mg/dL High 70-105 [facility] Comment on above: Order Comment: Waive d Testing in the ED is performed under the ED CLIA certificate #[id number]. Result Comment: [email or web address] Performed By: #### L [id number] #### [facility] ([facility]) [address] [place] [address] Glucose [Mass/Vol] 147 mg/dL High 70-105 [facility] Comment on above: Order Comment: Waive d Testing in the ED is performed under the ED CLIA certificate #[id number]. Result Comment: [email or web address] Performed By: #### L [id number] #### [facility] ([facility]) [address] [place] [address] TROPONIN Ion 07-28-2023 Troponin I.cardiac [Mass/Vol] 0.55 ng/mL Critically high 0.00-0.04 [facility] Comment on above: Order Comment: Previ ous result verified on 07/27/20231748 on specimen/case [id number] called with component Troponin I for procedure Troponin I with value 1.02 ng/mL. Result Comment: M-TX EVIOUS CRITICAL RESULT Performed By: #### L [id number] ####[facility] ([facility])[address] [place] [address] Troponin I.cardiac [Mass/Vol] 0.56 ng/mL Critically high 0.00-0.04 [facility] Comment on above: Result Comment: M-TX EVIOUS CRITICAL RESULT Previous result verified on 07/27/20231748 on specimen/case [id number] called with component Troponin I for procedure Troponin I with value 1.02 ng/mL. Performed By: #### L [id number] #### [facility] ([facility]) [address] [place] [address] Troponin I.cardiac [Mass/Vol] 0.67 ng/mL Critically high 0.00-0.04 [facility] Comment on above: Result Comment: Prev ious result verified on 07/27/20231748 on specimen/case [id number] called with component Troponin I for procedure Troponin I with value 1.02 ng/mL. Performed By: #### L [id number] #### [facility] ([facility]) [address] [place] [address] 30on 07-27-2023 30 The patient is Moderately Stable - Low risk of patient condition declining or worsening The patient's goals for the shift include sleep, comfort The clinical goals for the shift include VSS, safety Over the shift, the patient did make progress toward the following goals. Problem: Musculoskeletal - Adult Goal: Return mobility to safest level of function Outcome: Progressing Flowsheets (Taken 07/27/20231643) Return mobility to safest level of function: Assess patient stability and activity tolerance for standing, transferring and ambulating with or without assistive devices Assist with transfers and ambulation using safe patient handling equipment as needed Ensure adequate protection for wounds/incisions during mobilization Obtain physical therapy/occupational therapy consults as needed Instruct patient/family in ordered activity level Problem: Skin/Tissue Integrity - Adult Goal: Skin integrity remains intact Outcome: Progressing Flowsheets (Taken 07/27/20231643) Skin integrity remains intact: Monitor for areas of redness and/or skin breakdown Goal: Incisions, wounds, or drain sites healing without S/S of infection Outcome: Progressing Flowsheets (Taken 07/27/20231643) Incisions, wounds, or drain sites healing without sign and symptoms of infection: ADMISSION and DAILY: Assess and document risk factors for pressure ulcer development TWICE DAILY: Assess and document skin integrity TWICE DAILY: Assess and document dressing/incision, wound bed, drain sites and surrounding tissue Implement wound care per orders Problem: Cardiovascular - Adult Goal: Maintains optimal cardiac output and hemodynamic stability Outcome: Progressing Flowsheets (Taken 07/27/20231643) Maintains optimal cardiac output and hemodynamic stability: Monitor blood pressure and heart rate Monitor urine output and notify Licensed Independent Practitioner for values outside of normal range Assess for signs of decreased cardiac output Normal [facility] ANTI-XA (HEPARIN LEVEL)on HEPARIN UNFRACTIONATED (U/ML) IN PPP BY CHROMOGENIC METHOD 0.17 IU/mL Low 0.3-0.7 [facility] Comment on above: Result Comment: Renuka roxaban and Apixaban will interfere with the anti Xa assay used to monitor UFH and LMWH. Performed By: #### L [id number] ####[facility] ([facility])[address] [place] [address] BASIC METABOLIC PANELon Anion gap [Moles/Vol] 10 mmol/L Normal 7-20 [facility] Comment on above: Performed By: #### L [id number] #### [facility] ([facility]) [address] [place] [address] Calcium [Mass/Vol] 8.6 mg/dL Normal 8.6-10.3 [facility] Comment on above: Performed By: #### L [id number] #### [facility] ([facility]) [address] [place] [address] Chloride [Moles/Vol] 106 mmol/L Normal 98-107 [facility] Comment on above: Performed By: #### L [id number] #### [facility] ([facility]) [address] [place] [address] CO2 [Moles/Vol] 27 mmol/L Normal 21-31 [facility] Comment on above: Performed By: #### L [id number] #### [facility] ([facility]) [address] [place] [address] Creatinine [Mass/Vol] 0.66 mg/dL Normal 0.60-1.20 [facility] Comment on above: Performed By: #### L [id number] #### [facility] ([facility]) [address] [place] [address] GLOMERULAR FILTRATION RATE ML/MIN/1.73 SQ M.PREDICTED 93.1 mL/min/1.73m*2 Normal >60.0 [facility] Comment on above: Result Comment: [facility]???s estimated glomerular filtration rate (eGFR) [...] group of individuals. Performed By: #### L [id number] #### [facility]) [address] [place] [address] Glucose [Mass/Vol] 154 mg/dL High 70-100 [facility] Comment on above: Performed By: #### L [id number] #### [facility] [address] [place] [address] Potassium [Moles/Vol] 4.2 mmol/L Normal 3.5-5.1 [facility] Comment on above: Performed By: #### L [id number] #### [facility] [address] [place] [address] Sodium [Moles/Vol] 139 mmol/L Normal 136-145 [facility] Comment on above: Performed By: #### L [id number] #### [facility] ([facility]) [address] [place] [address] Urea nitrogen [Mass/Vol] 13 mg/dL Normal 7-25 [facility] Comment on above: Performed By: #### L [id number] #### [facility] ([facility]) [address] [place] [address] UREA NITROGEN/CREATININE (MASS RATIO) IN SER/PLAS 19.7 Normal [facility] Comment on above: Performed By: #### L [id number] #### [facility] ([facility]) [address] [place] [address] CBCon 07-27-2023 Erythrocyte distribution width (RBC) [Ratio] 14.1 % Normal 11.5-15.0 [facility] Comment on above: Performed By: #### L [id number] ####[facility] [place] [address] ERYTHROCYTE MEAN CORPUSCULAR HEMOGLOBIN CONCENTRATION (G/DL) BY AUTOMATED 33.9 g/dL Normal 32.0-35.0 [facility] Comment on above: Performed By: #### L [id number] ####[facility] ([facility] [place] [address] Hematocrit (Bld) [Volume fraction] 39.2 % Normal 36.0-48.0 [facility] Comment on above: Performed By: #### L [id number] ####[facility] ([facility] [place] [address] Hemoglobin (Bld) [Mass/Vol] 13.3 g/dL Normal 12.0-15.0 [facility] Comment on above: Performed By: #### L [id number] ####[facility] ([facility])[address] [place] [address] MCH (RBC) [Entitic mass] 32.2 pg Normal 27.0-33.0 [facility] Comment on above: Performed By: #### L [id number] ####[facility] ([facility])[address] [place], [place] [address] MCV (RBC) [Entitic vol] 94.9 fL Normal 82.0-98.0 [facility] Comment on above: Performed By: #### L [id number] ####[facility] ([facility])[address] [place] [address] PLATELETS (10*3/UL) IN BLOOD AUTOMATED COUNT 197 10*3/uL Normal 150-400 [facility] Comment on above: Performed By: #### L [id number] ####[facility] ([facility] [place] [address] RBC (Bld) [#/Vol] 4.13 10*6/uL Normal 3.80-5.00 [facility] Comment on above: Performed By: #### L [id number] ####[facility] ([facility] [place] [address] WBC (Bld) [#/Vol] 10.87 10*3/uL High 4.00-10.60 [facility] Comment on above: Performed By: #### L [id number] ####[facility] ([facility])[address] [place] [address] HEMOGLOBIN A1Con 07-27-2023 Glucose [Mass/Vol] 137 mg/dL Normal [facility] Comment on above: Performed By: #### L [id number] ####[facility] ([facility])[address] [place] [address] HbA1c (Bld) [Mass fraction] 6.4 % High 4.0-6.0 [facility] Comment on above: Performed By: #### L [id number] ####[facility] ([facility])[address] [place] [address] HEPATIC FUNCTION PANELon Albumin [Mass/Vol] 3.3 g/dL Low 3.5-5.7 [facility] Comment on above: Performed By: #### L [id number] #### [facility] ([facility]) [address] [place] [address] ALP [Catalytic activity/Vol] 113 U/L High 34-104 [facility] Comment on above: Performed By: #### L [id number] #### [facility] ([facility]) [address] [place] [address] ALT [Catalytic activity/Vol] 8 U/L Normal 7-52 [facility] Comment on above: Performed By: #### L [id number] #### [facility] ([facility]) [address] [place] [address] AST [Catalytic activity/Vol] 23 U/L Normal 13-39 [facility] Comment on above: Performed By: #### L [id number] #### [facility] ([facility]) [address] [place] [address] Bilirubin [Mass/Vol] 0.3 mg/dL Normal 0.3-1.0 [facility] Comment on above: Performed By: #### L [id number] #### [facility] ([facility]) [address] [place] [address] Magnesium [Mass/Vol] 0.0 mg/dL Normal 0-0.2 [facility] Comment on above: Performed By: #### L [id number] #### [facility] ([facility]) [address] [place] [address] Protein [Mass/Vol] 5.8 g/dL Low 6.0-8.3 [facility] Comment on above: Performed By: #### L [id number] #### [facility] ([facility] [address] [place] [address] LIPID PANELon 07-27-2023 CHOL/HDL 2.7 mg/dL Normal [facility] Comment on above: Performed By: #### L [id number] #### [facility] ([facility]) [address] [place] [address] Cholesterol [Mass/Vol] 134 mg/dL Normal 120-200 [facility] Comment on above: Performed By: #### L [id number] #### [facility] ([facility]) [address] [place] [address] Magnesium [Mass/Vol] 120 mg/dL Normal 40-149 [facility] Comment on above: Result Comment: TRIG LYCERIDE REFERENCE RANGE: 20 YEARS AND OLDER CARDIOVASCULAR RISK LESS THAN 150 mg/dL LOW RISK 150 TO 199 mg/dL BORDERLINE RISK 200 mg/dL AND GREATER HIGH RISK Performed By: #### L [id number] #### [facility] ([facility]) [address] [place] [address] Magnesium [Mass/Vol] 60 mg/dL Normal 0-160 [facility] Comment on above: Performed By: #### L [id number] #### [facility] ([facility]) [address] [place] [address] Magnesium [Mass/Vol] 50 mg/dL Normal 23-92 [facility] Comment on above: Performed By: #### L [id number] #### [facility] ([facility]) [address] [place] [address] NON HDL CHOL. (LDL+VLDL) 84 Normal [facility] Comment on above: Performed By: #### L [id number] #### [facility] ([facility] [address] [place] [address] TOTAL VLDL-C 24 mg/dL Normal 0-40 [facility] Comment on above: Performed By: #### L [id number] #### [facility] ([facility] [address] [facility] [place] [address] POCT GLUCOSE METER UNSOLICIT ED RESULTSon 07-27-2023 Glucose [Mass/Vol] 178 mg/dL High 70-105 [facility] Comment on above: Order Comment: Waive d Testing in the ED is performed under the ED CLIA certificate #[id number]. Result Comment: [email or web address] Performed By: #### L [id number] #### [facility] ([facility]) [address] [facility] [place] [address] Glucose [Mass/Vol] 173 mg/dL High 70-105 [facility] Comment on above: Order Comment: Waive d Testing in the ED is performed under the ED CLIA certificate #[id number]. Result Comment: [email or web address] Performed By: #### L [id number] #### [facility] ([facility]) [address] [facility] [place] [address] Glucose [Mass/Vol] 141 mg/dL High 70-105 [facility] Comment on above: Order Comment: Waive d Testing in the ED is performed under the ED CLIA certificate #[id number]. Result Comment: [email or web address] Performed By: #### L [id number] #### [facility] ([facility]) [address] [place] [address] TROPONIN Ion 07-27-2023 Troponin I.cardiac [Mass/Vol] 0.91 ng/mL Critically high 0.00-0.04 [facility] Comment on above: Result Comment: M-TX EVIOUS CRITICAL RESULT Previous result verified on 07/27/2023 1749 on specimen/case [id number] called with component Troponin I for procedure Troponin I with value 1.02 ng/mL. Performed By: #### L [id number] #### [facility] ([facility]) [address] [place] [address] Troponin I.cardiac [Mass/Vol] 1.02 ng/mL Critically high 0.00-0.04 [facility] Comment on above: Result Comment: M-TX EVIOUS CRITICAL RESULT Performed By: #### L [id number] ####[facility] ([facility])[address] [place] [address] Troponin I.cardiac [Mass/Vol] 1.12 ng/mL Critically high 0.00-0.04 [facility] Comment on above: Result Comment: M-TX EVIOUS CRITICAL RESULT Previous result verified on 07/26/2023 1819 on specimen/case [id number] called with component Troponin I for procedure Troponin I with value 1.43 ng/mL. Performed By: #### L [id number] #### [facility] ([facility]) [address] [place] [address] ANTI-XA (HEPARIN LEVEL)on HEPARIN UNFRACTIONATED (U/ML) IN PPP BY CHROMOGENIC METHOD 0.15 IU/mL Invalid Interpretation Code 0.3-0.7 [facility] Comment on above: Order Comment: Waive d Testing in the ED is performed under the ED CLIA certificate #[id number]. Result Comment: Renuka roxaban and Apixaban will interfere with the anti Xa assay used to monitor UFH and LMWH. Performed By: #### L [id number] #### [facility] ([facility]) [address] [place] [address] APTTon 07-26-2023 ACTIVATED PARTIAL THROMBOPLASTIN TIME IN PPP BY COAGULATION ASSAY 27.7 Seconds Normal 25.0-35.0 [facility] Comment on above: Order Comment: Basel ine aPTT before initiating heparin infusion. Result Comment: Clin ical significance of the APTT is questionable in the presence of heparin. Performed By: #### L [id number] ####[facility] ([facility])[address] [place] [address] B-TYPE NATRIURETIC PEPTIDEon 07-26-2023 Natriuretic peptide B (Bld) [Mass/Vol] 350 pg/mL High 0-100 [facility] Comment on above: Performed By: #### L [id number] #### [facility] ([facility]) [address] [place] [address] BASIC METABOLIC PANELon 05-0 Anion gap [Moles/Vol] 15 mmol/L Normal 7-20 [facility] Comment on above: Performed By: #### L [id number] #### [facility] ([facility]) [address] [place] [address] Calcium [Mass/Vol] 9.1 mg/dL Normal 8.6-10.3 [facility] Comment on above: Performed By: #### L [id number] #### [facility] ([facility]) [address] [place] [address] Chloride [Moles/Vol] 105 mmol/L Normal 98-107 [facility] Comment on above: Performed By: #### L [id number] #### [facility] ([facility]) [address] [place] [address] CO2 [Moles/Vol] 24 mmol/L Normal 21-31 [facility] Comment on above: Performed By: #### L [id number] #### [facility] ([facility] [address] [place] [address] Creatinine [Mass/Vol] 0.61 mg/dL Normal 0.60-1.20 [facility] Comment on above: Performed By: #### L [id number] #### [facility] ([facility] [address] [place] [address] GLOMERULAR FILTRATION RATE ML/MIN/1.73 SQ M.PREDICTED 94.9 mL/min/1.73m*2 Normal >60.0 [facility] Comment on above: Result Comment: [facility]???s estimated glomerular filtration rate (eGFR) [...] group of individuals. Performed By: #### L [id number] #### [facility] ([facility]) [address] [place] [address] Glucose [Mass/Vol] 111 mg/dL High 70-100 [facility] Comment on above: Performed By: #### L [id number] #### [facility] ([facility]) [address] [place] [address] Potassium [Moles/Vol] 4.4 mmol/L Normal 3.5-5.1 [facility] Comment on above: Performed By: #### L [id number] #### [facility] ([facility]) [address] [place] [address] Sodium [Moles/Vol] 140 mmol/L Normal 136-145 [facility] Comment on above: Performed By: #### L [id number] #### [facility] ([facility]) [address] [place] [address] Urea nitrogen [Mass/Vol] 14 mg/dL Normal 7-25 [facility] Comment on above: Performed By: #### L [id number] #### [facility] ([facility]) [address] [place] [address] UREA NITROGEN/CREATININE (MASS RATIO) IN SER/PLAS 23.0 Normal [facility] Comment on above: Performed By: #### L [id number] #### [facility] ([facility]) [address] [place] [address] CBCon 07-26-2023 Erythrocyte distribution width (RBC) [Ratio] 14.1 % Normal 11.5-15.0 [facility] Comment on above: Performed By: #### L [id number] #### [facility] ([facility]) [address] [place] [address] ERYTHROCYTE MEAN CORPUSCULAR HEMOGLOBIN CONCENTRATION (G/DL) BY AUTOMATED 34.8 g/dL Normal 32.0-35.0 [facility] Comment on above: Performed By: #### L [id number] #### [facility] ([facility]) [address] [place] [address] Hematocrit (Bld) [Volume fraction] 36.2 % Normal 36.0-48.0 [facility] Comment on above: Performed By: #### L [id number] #### [facility] ([facility]) [address] [place] [address] Hemoglobin (Bld) [Mass/Vol] 12.6 g/dL Normal 12.0-15.0 [facility] Comment on above: Performed By: #### L [id number] #### [facility] ([facility]) [address] [place] [address] MCH (RBC) [Entitic mass] 33.0 pg Normal 27.0-33.0 [facility] Comment on above: Performed By: #### L [id number] #### [facility] ([facility]) [address] [place] [address] MCV (RBC) [Entitic vol] 94.8 fL Normal 82.0-98.0 [facility] Comment on above: Performed By: #### L [id number] #### [facility] ([facility]) [address] [place] [address] PLATELETS (10*3/UL) IN BLOOD AUTOMATED COUNT 202 10*3/uL Normal 150-400 [facility] Comment on above: Performed By: #### L [id number] #### [facility] ([facility]) [address] [place] [address] RBC (Bld) [#/Vol] 3.82 10*6/uL Normal 3.80-5.00 [facility] Comment on above: Performed By: #### L [id number] #### [facility] ([facility]) [address] [place] [address] WBC (Bld) [#/Vol] 8.53 10*3/uL Normal 4.00-10.60 [facility] Comment on above: Performed By: #### L [id number] #### [facility] ([facility]) [address] [place] [address] CONSULTon 07-26-2023 CONSULT -- Attestation signed by Chad Campos MD at 07/27/2023 1:46 AM By using the attestations below, the signing clinician agrees that I have read and verify that the documentation has been personally reviewed by me and ensure that the documentation accurately reflects the encounter. GC: I personally saw this patient on the day of the encounter, performed the girard portion(s) of the service and participated in the management and confirm the resident's documentation. Please note there may be an additional personal documentation from me. Pt has no CP according to her and has marginal trop elevation. Will offer non invasive eval to guide coronary intervention if needed. Cardiology Consult Note Reason for Consult: NSTEMI-transfer from OSH HPI: Mirna Quezada is a 72 y.o. female patient is presenting from [facility] for continuity of care. Past medical history includes: CAD status post CABG (ALMARAZ to LAD, SVG to D1, and SVG to OM1 in 2000) Aortic valve stenosis COPD Hypertension HLD Parkinson's disease Patient is known to Dr. Condon, and she was cleared for her spinal surgery which was done at [facility]. Patient presented to the ED at [facility] for dizziness and generalized weakness. She was found hypoxic and hypotensive. She was admitted for HAP. High sensitivity troponin level was elevated to 155.5; proBNP was mildly elevated . EKG NSR with no new ST T wave changes. Patient was started on heparin drip and transferred for continuity of care. Patient was seen and examined. She reports shortness of breath, no chest pain, no arm/jaw pain, no N/V. Labs pending. EKG ordered. Cardiology ROS: GENERAL: Denies fever, chills, night sweats, weight loss. CARDIOVASCULAR: please refer to HPI RESPIRATORY: Denies SOB, coughing, wheezing GI: Denies [...] 1 tablet by mouth in the morning. 07/25/2023 carbidopa-levodopa (Sinemet) 25-100 mg tablet Take 1.5 tablets by mouth in the morning, at noon, in the evening, and at bedtime. 07/25/2023 citalopram (CeleXA) 40 mg tablet Take 40 mg by mouth in the morning. 07/25/2023 clopidogrel (Plavix) 75 mg tablet Take 1 tablet by mouth in the morning. 07/25/2023 cyanocobalamin (Vitamin B-12) 1,000 mcg tablet Take 1,000 mcg by mouth in the morning. HYDROcodone-acetaminop hen ([place]) 10-325 mg tablet Take 1 tablet by mouth every 8 (eight) hours. Past Week isosorbide mononitrate ER (Imdur) 30 mg 24 hr tablet Take 1 tablet by mouth in the morning. 07/25/2023 metFORMIN XR (Glucophage-XR) 750 mg 24 hr tablet Take 500 mg by mouth with breakfast. 07/25/2023 oxybutynin XL (Ditropan-XL) 10 mg 24 hr tablet Take 10 mg by mouth in the morning. 07/25/2023 pregabalin (Lyrica) 150 mg capsule 200 mg three times daily. 07/25/2023 primidone (Mysoline) 50 mg tablet Take 50 mg by mouth in the morning, noon, at afternoon, at bedtime,. 07/25/2023 rOPINIRole (Requip) 0.25 mg tablet Take 0.25 mg by mouth in the morning, noon, at afternoon, at bedtime,. tiZANidine (Zanaflex) 4 mg tablet Take 4 mg by mouth every 8 (eight) hours if needed for muscle spasms. Past Week Last Recorded Vitals Patient Vitals for the past 24 hrs: BP Temp Temp src Pulse Resp SpO2 Height Weight 07/26/23 1545 136/69 36.7 ???C (98 ???F) Oral 77 (!) 27 97 % 1.6 m (5' 3 ) 60 kg (132 lb 4.4 oz) Physical Examination: GENERAL: AOx3, in no acute distress. HEAD: Atraumatic, normocephalic. EYES: CARMENCITA, EOMI. NECK: No JVD present. CARDIAC: RRR. No murmur, rubs, or gallops. RESPIRATORY: CTAB, no increased effort of breathing. ABDOMEN: Soft, nontender, nondistended. EXTREMITIES: No lower extremity edema, peripheral pulses are 2+ bilaterally. NEURO: No focal deficits (more content not included)... Normal [facility] POCT GLUCOSE METER UNSOLICIT ED RESULTSon 07-26-2023 Glucose [Mass/Vol] 200 mg/dL High 70-105 [facility] Comment on above: Order Comment: Waive d Testing in the ED is performed under the ED CLIA certificate #[id number]. Result Comment: [email or web address] Performed By: #### L [id number] #### [facility] ([facility]) [address] [place] [address] Glucose [Mass/Vol] 124 mg/dL High 70-105 [facility] Comment on above: Order Comment: Waive d Testing in the ED is performed under the ED CLIA certificate #[id number]. Result Comment: [email or web address] Performed By: #### L [id number] ####[facility] ([facility])[address] [place] [address] TROPONIN Ion 07-26-2023 Troponin I.cardiac [Mass/Vol] 1.43 ng/mL Critically high 0.00-0.04 [facility] Comment on above: Result Comment: M-TR OPONIN INITIAL CRITICAL HIGH; RESPUN AND RETESTED Performed By: #### L [id number] #### [facility] ([facility]) [address] [place] [address] Glucose,Whole Bloodon 2023 Glucose [Mass/Vol] 116 mg/dL High 65-105 [facility] POC Glucose Fingerstickon Glucose [Mass/Vol] 116 mg/dL High 65 - 105 mg/dL [facility] [employer] [facility] Interpretation and review of laboratory results Abnormal [facility] FLUORO FOR SURGICAL PROCEDUR ESon 07-20-2023 FLUORO FOR SURGICAL PROCEDURES Radiology exam is complete. No Radiologist dictation. Please follow up with ordering provider. Final result Normal [facility] Glucose,Whole Bloodon 2023 Glucose [Mass/Vol] 149 mg/dL High 65-105 [facility] Glucose [Mass/Vol] 159 mg/dL High 65-105 [facility] Glucose [Mass/Vol] 131 mg/dL High 65-105 [facility] Guidance-- during surgeryon 07-20-2023 Radiology exam is complete. No Radiologist dictation. Please follow up with ordering provider. [facility] RIS CONSOLIDATED POC Glucose Fingerstickon Glucose [Mass/Vol] 149 mg/dL High 65 - 105 mg/dL [facility] [employer] [facility] Interpretation and review of laboratory results Abnormal [facility] Glucose [Mass/Vol] 159 mg/dL High 65 - 105 mg/dL [facility] [employer] [facility] Interpretation and review of laboratory results Abnormal [facility] Interpretation and review of laboratory results Abnormal [facility] US art pvr/post Ad 024 US art pvr/post LE [facility] [place] [address] [place] [address] Ultrasound Report Signed Patient: Mirna Quezada MR#: [id number] 41 : 1950 Acct:[id number] Age/Sex: 72 / F ADM Date: 07/06/23 Loc: Room: Type: [facility] Attending Dr: Aron Rain MD Ordering Provider: [...] Aron Rain M.D.07/09/2023 12:45 PM Dictation Location: [place] [address] Tech: Tamiko Tapia Transcribed By: FLOYD 07/09/23 1245 Dictated By: Aron Rain MD 07/09/23 1243 Signed By: 07/09/23 1245 Normal The Count Includes [facility] US carotid doppler BIon 04- US carotid doppler BI [facility] Main [place] [address] [place] [address] Ultrasound Report Signed Patient: Mirna Quezada MR#: [id number] 41 : 1950 Acct:[id number] Age/Sex: 72 / F ADM Date: 07/06/23 Loc: Room: Type: [facility] Attending Dr: Aron Rain MD Ordering Provider: [...] Aron Rain M.D.07/09/2023 12:43 PM Dictation Location: [place] [address] Tech: Laura Aguilar Transcribed By: FLOYD 07/09/23 1243 Dictated By: Aron Rain MD 07/09/23 1241 Signed By: 07/09/23 1243 Normal [facility] Office Visiton 05-25-2023 Follow-up visit [id number] Abhinav Quezada 1950 F Date Provider Department Center 05/25/2023 DIONE GOMEZ [facility] Family History Problem Relation Age of Onset Hypertension Mother ALS Father Family Status - Relation Status Age at Mother Father Level of Service:07245 [place] OFFICE/OUTPATIENT ESTABLISHED MOD MDM 30 MIN Normal [facility] Basic Metabolic Panelon - Anion gap [Moles/Vol] 12 mmol/L 9 - 17 mmol/L Elli Calcium [Mass/Vol] 9.0 mg/dL 8.6 - 10. 4 mg/dL Elli Chloride [Moles/Vol] 104 mmol/L 98 - 107 mmol/L [facility] [employer] CO2 [Moles/Vol] 25 mmol/L 20 - 31 mmol/L Elli Creatinine [Mass/Vol] 0.5 mg/dL 0.5 - 0.9 mg/dL [facility] GFR/1.73 sq M.predicted MDRD (S/P/Bld) [Vol rate/Area] - PINF [facility] Comment on above: These results are not [...] 105 mg/dL High 70 - 99 mg/dL [facility] Interpretation and review of laboratory results Abnormal [facility] Potassium [Moles/Vol] 4.4 mmol/L 3.7 - 5.3 mmol/L [facility] Sodium [Moles/Vol] 141 mmol/L 135 - 144 mmol/L [facility] Urea nitrogen [Mass/Vol] 14 mg/dL 8 - 23 mg/dL [facility] Urea nitrogen/Creatinine [Mass ratio] 28 mg/mg High 9 - 20 [facility] Basic Metabolic Profon Anion gap [Moles/Vol] 12 mmol/L Normal - [facility] Comment on above: Performed By: #### B BECCA, CBC #### [facility] [address] [place] [address] Crm Campaign Manager: Lucas Pink MD #### GLYHGB #### [facility] [employer] [facility] [place] [address] Crm Campaign Manager: Chalo Rendon MD BUN/CRE Ratio 28 High 9-20 [facility] Comment on above: Performed By: #### B MP, CBC #### [facility] [address] [place] [address] Crm Campaign Manager: Lucas Pink MD #### GLYHGB #### [facility] [employer] [address] [place] [id number] Crm Campaign Manager: Chalo Rendon MD Calcium [Mass/Vol] 9.0 mg/dL Normal 8.6-10.4 [facility] Comment on above: Performed By: #### B MP, CBC #### [facility] [address] [place] [address] Crm Campaign Manager: Lucas Pink MD #### GLYHGB #### [address] [address] Crm Campaign Manager: Chalo Rendon MD Chloride [Moles/Vol] 104 mmol/L Normal 98-107 [facility] Comment on above: Performed By: #### B MP, CBC #### [facility] [address] [place] [address] Crm Campaign Manager: Lucas Pink MD #### GLYHGB #### [address] [address] Crm Campaign Manager: Chalo Rendon MD CO2 [Moles/Vol] 25 mmol/L Normal 20-31 [facility] Comment on above: Performed By: #### B MP, CBC #### [facility] [address] [place] [address] Crm Campaign Manager: Lucas Pink MD #### GLYHGB #### [address] [address] Crm Campaign Manager: Chalo Rendon MD Creatinine [Mass/Vol] 0.5 mg/dL Normal 0.5-0.9 [facility] Comment on above: Performed By: #### B MP, CBC #### [facility] [address] [place] [address] Crm Campaign Manager: Lucas Pink MD #### GLYHGB #### [address] [phone] Crm Campaign Manager: Chalo Rendon MD GFR/1.73 sq M.predicted among non-blacks MDRD (S/P/Bld) [Vol rate/Area] mL/min/{1.73_m2} Normal >60 [facility] Comment on above: Result Comment: These [...] renal tubular secretion. Performed By: #### B BECCA, CBC #### [facility] [address] [place], [place] [phone] Crm Campaign Manager: Lucas Pink MD #### GLYHGB #### [address] [address] Crm Campaign Manager: Chalo Rendon MD Glucose [Mass/Vol] 105 mg/dL High 70-99 [facility] Comment on above: Performed By: #### B BECCA, CBC #### [facility] [address] [place] [address] Crm Campaign Manager: Lucas Pink MD #### GLYHGB #### [address] [address] Crm Campaign Manager: Chalo Rendon MD Potassium [Moles/Vol] 4.4 mmol/L Normal 3.7-5.3 [facility] Comment on above: Performed By: #### B BECCA, CBC #### [facility] [address] [place] [address] Crm Campaign Manager: Lucas Pink MD #### GLYHGB #### [address] [address] Crm Campaign Manager: Chalo Rendon MD Sodium [Moles/Vol] 141 mmol/L Normal 135-144 [facility] Comment on above: Performed By: #### B MP, CBC #### [facility] [address] [place] [address] Crm Campaign Manager: Lucas Pink MD #### GLYHGB #### [address] [address] Crm Campaign Manager: Chalo Rendon MD Urea nitrogen [Mass/Vol] 14 mg/dL Normal 8-23 [facility] Comment on above: Performed By: #### B MP, CBC #### [facility] [address] [place] [address] Crm Campaign Manager: Lucas Pink MD #### GLYHGB #### [address] [address] Crm Campaign Manager: Chalo Rendon MD CBCon 05-24-2023 Erythrocyte distribution width (RBC) [Ratio] 15.0 % High 11.8-14.4 [facility] Comment on above: Performed By: #### B BECCA, CBC #### [facility] [address] [place] [address] Crm Campaign Manager: Lucas Pink MD #### GLYHGB #### [address] [address] Crm Campaign Manager: Chalo Rendon MD Hematocrit (Bld) [Volume fraction] 46.0 % Normal 36.3-47.1 [facility] Comment on above: Performed By: #### B MP, CBC #### [facility] [address] [place] [address] Crm Campaign Manager: Lucas Pink MD #### GLYHGB #### [address] [address] Crm Campaign Manager: Chalo Rendon MD Hemoglobin (Bld) [Mass/Vol] 15.4 g/dL High 11.9-15.1 [facility] Comment on above: Performed By: #### B MP, CBC #### [facility] [place] [address] Crm Campaign Manager: Lucas Pink MD #### GLYHGB #### [address] [address] Crm Campaign Manager: Chalo Rendon MD MCH (RBC) [Entitic mass] 33.0 pg Normal 25.2-33.5 [facility] Comment on above: Performed By: #### B MP, CBC #### [facility] [address] [place] [phone] Crm Campaign Manager: Lucas Pink MD #### GLYHGB #### [address] [address] Crm Campaign Manager: Chalo Rendon MD MCHC (RBC) [Mass/Vol] 33.5 g/dL Normal 28.4-34.8 [facility] Comment on above: Performed By: #### B MP, CBC #### [facility] [address] [place] [address] Crm Campaign Manager: Lucas Pink MD #### GLYHGB #### [address] [address] Crm Campaign Manager: Chalo Rendon MD MCV (RBC) [Entitic vol] 98.5 fL Normal 82.6-102.9 [facility] Comment on above: Performed By: #### B MP, CBC #### [facility] [address] [place] [phone] Crm Campaign Manager: Lucas Pink MD #### GLYHGB #### [address] [address] Crm Campaign Manager: Chalo Rendon MD NRBC Automated 0.0 per 100 WBC Normal 0.0 [facility] Comment on above: Performed By: #### B MP, CBC #### [facility] [address] [place] [address] Crm Campaign Manager: Lucas Pink MD #### GLYHGB #### [address] [address] Crm Campaign Manager: Chalo Rendon MD Platelet mean volume (Bld) [Entitic vol] 11.6 fL Normal 8.1-13.5 [facility] Comment on above: Performed By: #### B MP, CBC #### [facility] [address] [place] [address] Crm Campaign Manager: Lucas Pink MD #### GLYHGB #### [address] [address] Crm Campaign Manager: Chalo Rendon MD Platelets (Bld) [#/Vol] 168 10*3/uL Normal 138-453 [facility] Comment on above: Performed By: #### B MP, CBC #### [facility] [address] [place] [address] Crm Campaign Manager: Lucas Pink MD #### GLYHGB #### [address] [address] Crm Campaign Manager: Chalo Rendon MD RBC (Bld) [#/Vol] 4.67 10*6/uL Normal 3.95-5.11 [facility] Comment on above: Performed By: #### B MP, CBC #### [facility] [address] [place] [address] Crm Campaign Manager: Lucas Pink MD #### GLYHGB #### [facility] [address] [place] [address] Crm Campaign Manager: Chalo Rendon MD WBC (Bld) [#/Vol] 10.7 10*3/uL Normal 3.5-11.3 [facility] Comment on above: Performed By: #### B MP, CBC #### [facility] [address] [place], [place] [phone] Crm Campaign Manager: Lucas Pink MD #### GLYHGB #### [facility] [address] [place] [address] Crm Campaign Manager: Chalo Rendon MD Erythrocyte distribution width (RBC) [Ratio] 15.0 % High 11.8 - 14.4 % [facility] Hematocrit (Bld) [Volume fraction] 46.0 % 36.3 - 47.1 % [facility] Hemoglobin (Bld) [Mass/Vol] 15.4 g/dL High 11.9 - 15.1 g/dL [facility] Interpretation and review of laboratory results Abnormal [facility] MCH (RBC) [Entitic mass] 33.0 pg 25.2 - 33.5 pg [facility] MCHC (RBC) [Mass/Vol] 33.5 g/dL 28.4 - 34.8 g/dL [facility] MCV (RBC) [Entitic vol] 98.5 fL 82.6 - 102.9 fL [facility] Nucleated RBC/100 WBC (Bld) [Ratio] 0.0 % 0.0 per 100 WBC [facility] Platelet mean volume (Bld) [Entitic vol] 11.6 fL 8.1 - 13.5 fL [facility] Platelets (Bld) [#/Vol] 168 10*3/uL [facility] RBC (Bld) [#/Vol] 4.67 10*6/uL 3.95 - 5.1 1 m/uL [facility] WBC other (Bld) [#/Vol] 10.7 [facility] Hemoglobin A1Con 05-24-2023 Glucose [Mass/Vol] 140 mg/dL Normal [facility] Comment on above: Result Comment: The ADA and AACC recommend providing the estimated average glucose result to permit better patient understanding of their HBA1c result. Performed By: #### C BC, BMP #### [facility] [address] [place] [address] Crm Campaign Manager: Lucas Pink MD #### GLYHGB #### [facility] [address] [place], [place] [phone] Crm Campaign Manager: Chalo Rendon MD HbA1c (Bld) [Mass fraction] 6.5 % High 4.0-6.0 [facility] Comment on above: Performed By: #### C BC, BMP #### [facility] [address] [place], [place] [phone] Crm Campaign Manager: Lucas Pink MD #### GLYHGB #### [facility] [address] [place], [place] [phone] Crm Campaign Manager: Chalo Rendon MD Average glucose Estimated from glycated hemoglobin (Bld) [Mass/Vol] 140 mg/dL [facility] Comment on above: The ADA and AACC rec ommend providing the estimated average glucose result to permit better patient understanding of their HBA1c result. HbA1c (Bld) [Mass fraction] 6.5 % High 4.0 - 6.0 % [facility] Interpretation and review of laboratory results Abnormal [facility] Telemedicineon 04-19-2023 Telemedicine [id number] Abhinav Quezada 1950 F Date Provider Department Center 04/19/2023 DIONE GOMEZ [facility] Family History Problem Relation Age of Onset Hypertension Mother ALS Father Family Status - Relation Status Age at Mother Father Level of Service:44048 [place] PHYS/QHP TELEPHONE EVALUATION 21-30 MIN Normal [facility] Orders Onlyon 04-11-2023 Orders Only [id number] Abhinav Quezada W 1950 F Date Provider Department Center 04/11/2023 Lesa-KATHERINE GELLER KEYONA Mcmillan [facility] Family History Problem Relation Age of Onset Hypertension Mother ALS Father Family Status - Relation Status Age at Mother Father [facility] Documentationon 04-10-2023 Documentation [id number] Abhinav Quezada W 1950 F Date Provider Department Center 04/10/2023 [id number] CORRALES [facility] VAS LAB PA HeartVAS Family History Problem Relation Age of Onset Hypertension Mother ALS Father Family Status - Relation Status Age at Mother Father Reason for Visit and Comments: HF inpatient satisfaction survey sent. [Other] [facility] 36on 04-08-2023 36 Discharge date: [...] reminder. No other questions. Aurora Mix PA-C [facility] Cardiovascular Medicine [phone] [facility] Telephoneon 04-08-2023 Telephone [id number] Abhinav Quezada W 1950 F Date Provider Department Center 04/08/2023 [id number] MIX [facility] HEART PA HeartVAS Family History Problem Relation Age of Onset Hypertension Mother ALS Father Family Status - Relation Status Age at Mother Father [facility] BASIC METABOLIC PANELon 03-26 Anion gap [Moles/Vol] 9 mmol/L Normal 7-20 [facility] Comment on above: Performed By: #### L [id number] #### [facility] [address] [place] [address] Calcium [Mass/Vol] 9.0 mg/dL Normal 8.6-10.3 [facility] Comment on above: Performed By: #### L [id number] #### [facility] ([facility]) [address] [place] [address] Chloride [Moles/Vol] 108 mmol/L High 98-107 [facility] Comment on above: Performed By: #### L [id number] #### [facility] ([facility]) [address] [place] [address] CO2 [Moles/Vol] 27 mmol/L Normal 21-31 [facility] Comment on above: Performed By: #### L [id number] #### [facility] ([facility]) [address] [place] [address] Creatinine [Mass/Vol] 0.54 mg/dL Low 0.60-1.20 [facility] Comment on above: Performed By: #### L [id number] #### [facility] ([facility]) [address] [place] [address] GLOMERULAR FILTRATION RATE ML/MIN/1.73 SQ M.PREDICTED 97.8 mL/min/1.73m*2 Normal >60.0 [facility] Comment on above: Result Comment: [facility]???s estimated glomerular filtration rate (eGFR) [...] group of individuals. Performed By: #### L [id number] #### [facility] ([facility]) [address] [place] [address] Glucose [Mass/Vol] 157 mg/dL High 70-100 [facility] Comment on above: Performed By: #### L [id number] #### [facility] ([facility]) [address] [place] [address] Potassium [Moles/Vol] 4.3 mmol/L Normal 3.5-5.1 [facility] Comment on above: Performed By: #### L [id number] #### [facility] ([facility]) [address] [place] [address] Sodium [Moles/Vol] 140 mmol/L Normal 136-145 [facility] Comment on above: Performed By: #### L [id number] #### [facility] ([facility]) [address] [place] [address] Urea nitrogen [Mass/Vol] 30 mg/dL High 7-25 [facility] Comment on above: Performed By: #### L [id number] #### [facility] ([facility]) [address] [place] [address] UREA NITROGEN/CREATININE (MASS RATIO) IN SER/PLAS 55.6 Normal [facility] Comment on above: Performed By: #### L [id number] #### [facility] ([facility]) [address] [place] [address] CBCon 04-05-2023 Erythrocyte distribution width (RBC) [Ratio] 13.9 % Normal 11.5-15.0 [facility] Comment on above: Performed By: #### L [id number] ####[facility] ([facility])[address] [place] [address] ERYTHROCYTE MEAN CORPUSCULAR HEMOGLOBIN CONCENTRATION (G/DL) BY AUTOMATED 34.1 g/dL Normal 32.0-35.0 [facility] Comment on above: Performed By: #### L [id number] ####[facility] ([facility])[address] [place] [address] Hematocrit (Bld) [Volume fraction] 41.4 % Normal 36.0-48.0 [facility] Comment on above: Performed By: #### L [id number] ####[facility] [place] [address] Hemoglobin (Bld) [Mass/Vol] 14.1 g/dL Normal 12.0-15.0 [facility] Comment on above: Performed By: #### L [id number] ####[facility] ([facility])[address] [place] [address] MCH (RBC) [Entitic mass] 32.3 pg Normal 27.0-33.0 [facility] Comment on above: Performed By: #### L [id number] ####[facility] ([facility])[address] [place] [address] MCV (RBC) [Entitic vol] 95.0 fL Normal 82.0-98.0 [facility] Comment on above: Performed By: #### L [id number] ####[facility] ([facility])[address] [place] [address] PLATELETS (10*3/UL) IN BLOOD AUTOMATED COUNT 234 10*3/uL Normal 150-400 [facility] Comment on above: Performed By: #### L [id number] ####[facility] ([facility])[address] [place] [address] RBC (Bld) [#/Vol] 4.36 10*6/uL Normal 3.80-5.00 [facility] Comment on above: Performed By: #### L [id number] ####[facility] ([facility])[address] [place] [address] WBC (Bld) [#/Vol] 6.75 10*3/uL Normal 4.00-10.60 [facility] Comment on above: Performed By: #### L [id number] ####[facility] ([facility])[address] [place] [address] MAGNESIUMon 04-05-2023 Magnesium [Mass/Vol] 1.6 mg/dL Low 1.9-2.7 [facility] Comment on above: Performed By: #### L [id number] ####[facility] ([facility])[address] [place] [place] [address] NURSNOTEon 04-05-2023 NURSNOTE Market Development Specialist notified hospitalist about blood pressure is 165/44 and her heart rate is 57. Patient was sleeping at the time. Hospitalist would like for aligner typewriter to monitor the patient if the patient is asymptomatic. Normal [facility] POCT GLUCOSE METER UNSOLICIT ED RESULTSon 04-05-2023 Glucose [Mass/Vol] 198 mg/dL High 70-105 [facility] Comment on above: Order Comment: Waive d Testing in the ED is performed under the ED CLIA certificate #[id number]. Result Comment: wwar rad Performed By: #### L [id number] #### [facility] ([employer]) [address] [place] [address] Glucose [Mass/Vol] 248 mg/dL High 70-105 [facility] Comment on above: Order Comment: Waive d Testing in the ED is performed under the ED CLIA certificate #[id number]. Result Comment: wwar rad Performed By: #### L [id number] ####[facility] ([facility])[address] [place] [address] Glucose [Mass/Vol] 141 mg/dL High 70-105 [facility] Comment on above: Order Comment: Waive d Testing in the ED is performed under the ED CLIA certificate #[id number]. Result Comment: wwar rad Performed By: #### L [id number] #### [facility] ([employer]) [address] [place] [address] 30on 04-04-2023 30 Problem: Pain - Adul t Goal: [...] hematologic stability Outcome: Progressing Normal [facility] 30 Daily Case Managemen t Update Multidisciplinary rounds have been completed. Barriers to Discharge: from [facility] elevated troponin and HF. Ischemic evaluation that [...] Select all services needed for the patient Senior Living Facility (30 day convalescent stay) Please indicate [...] Answer: weakness 04/04/23 1151 Normal [facility] ANTI-XA (HEPARIN LEVEL)on HEPARIN UNFRACTIONATED (U/ML) IN PPP BY CHROMOGENIC METHOD 0.36 IU/mL Normal 0.3-0.7 [facility] Comment on above: Result Comment: Renuka roxaban and Apixaban will interfere with the anti Xa assay used to monitor UFH and LMWH. Performed By: #### L [id number] #### [facility] ([facility]) [address] [place] [address] HEPARIN UNFRACTIONATED (U/ML) IN PPP BY CHROMOGENIC METHOD 0.18 IU/mL Low 0.3-0.7 [facility] Comment on above: Result Comment: Renuka roxaban and Apixaban will interfere with the anti Xa assay used to monitor UFH and LMWH. Performed By: #### L [id number] ####[facility] ([facility])[address] [place] [address] HEPARIN UNFRACTIONATED (U/ML) IN PPP BY CHROMOGENIC METHOD 0.14 IU/mL Invalid Interpretation Code 0.3-0.7 [facility] Comment on above: Order Comment: Check anti-Xa level every 6 hours while on heparin infusion, or per protocol. Result Comment: Brandywine roxaban and Apixaban will interfere with the anti Xa assay used to monitor UFH and LMWH. Performed By: #### L [id number] #### [facility] ([facility]) [address] [place] [address] APTTon 04-04-2023 ACTIVATED PARTIAL THROMBOPLASTIN TIME IN PPP BY COAGULATION ASSAY 34.8 Seconds Normal 25.0-35.0 [facility] Comment on above: Order Comment: Basel ine aPTT before initiating heparin infusion. Result Comment: Clin ical significance of the APTT is questionable in the presence of heparin. Performed By: #### L [id number] #### [facility] ([place]) [address] [address] CONSULTon 04-04-2023 CONSULT -- Attestation signed by Claritza Bello MD at 04/04/2023 4:03 PM I personally saw and examined the patient on the same date of service as resident/fellow Dr Garza. I discussed the findings and therapeutic plan with the resident/fellow Dr Garza. I agree with the documentation, except for any edits/updates below. Teaching Physician's Revisions: Claritza Bello MD, MPH, [facility], [facility], [facility] Interventional Cardiology Pager Email: [email or web address] Cardiology Consult Note Reason for Consult: CHF exacerbation HPI: Mirna Quezada is a 72 y.o. female with a past medical history significant for CAD status post CABG (ALMARAZ to LAD, SVG to D1, and SVG to OM1) 2000, ischemic cardiomyopathy, COPD, hypertension, type 2 diabetes mellitus who originally presented to [facility] with cough and was found to have community acquired pneumonia and acute heart failure exacerbation. Patient was transferred from [facility] for cardiology evaluation for elevated troponin. Patient presented to [facility] 03/29/2023. Labs were significant for [...] olvera recommended that patient be transferred to [facility] for evaluation for cardiac catheterization. Of [...] by mouth in the morning. HYDROcodone-acetaminop hen ([place]) 10-325 mg tablet Take 1 tablet by [...] (more content not included)... Normal [facility] NURSNOTEon 04-04-2023 NURSNOTE Market Development Specialist phoned hospitalist to inform him that the patient blood pressure was 85/42 at 4:10 am and 101/46 at 4:20. Market Development Specialist also let the hospitalist know that the patient was asymptomatic. Hospitalist would like for aligner typewriter to keep a close eye on the patient and her blood pressure; call the hospitalist if any changes. Normal [facility] PLATELET COUNTon 04-04-2023 PLATELETS (10*3/UL) IN BLOOD AUTOMATED COUNT 242 10*3/uL Normal 150-400 [facility] Comment on above: Performed By: #### L [id number] ####[facility] ([facility])[address] [place] [address] POCT GLUCOSE METER UNSOLICIT ED RESULTSon 04-04-2023 Glucose [Mass/Vol] 209 mg/dL High 70-105 [facility] Comment on above: Order Comment: Waive d Testing in the ED is performed under the ED CLIA certificate #[id number]. Result Comment: gregg hardy Performed By: #### L [id number] #### [facility] ([facility]) [address] [place] [address] Glucose [Mass/Vol] 188 mg/dL High 70-105 [facility] Comment on above: Order Comment: Waive d Testing in the ED is performed under the ED CLIA certificate #[id number]. Result Comment: wwar rad Performed By: #### L [id number] ####[facility] ([facility])[address] [place] [address] Glucose [Mass/Vol] 191 mg/dL High 70-105 [facility] Comment on above: Order Comment: Waive d Testing in the ED is performed under the ED CLIA certificate #[id number]. Result Comment: wwar rad Performed By: #### L [id number] #### [facility] ([facility]) [address] [place] [address] Glucose [Mass/Vol] 248 mg/dL High 70-105 [facility] Comment on above: Order Comment: Waive d Testing in the ED is performed under the ED CLIA certificate #[id number]. Result Comment: wwar rad Performed By: #### L [id number] ####[facility] ([employer])[address] [place] [address] Glucose [Mass/Vol] 142 mg/dL High 70-105 [facility] Comment on above: Order Comment: Waive d Testing in the ED is performed under the ED CLIA certificate #[id number]. Result Comment: swey er2 Critical Value Noted Performed By: #### L [id number] #### [facility] ([facility]) [address] [place] [address] TROPONIN Ion 04-04-2023 Troponin I.cardiac [Mass/Vol] 0.06 ng/mL High 0.00-0.04 [facility] Comment on above: Performed By: #### L [id number] ####[facility] [facility] [place] [address] Troponin I.cardiac [Mass/Vol] 0.07 ng/mL High 0.00-0.04 [facility] Comment on above: Performed By: #### L [id number] #### [facility] [address] [place] [address] 30on 04-03-2023 30 Problem: Pain - Adul t Goal: [...] decreased discomfort Outcome: Progressing Normal [facility] B-TYPE NATRIURETIC PEPTIDEon 04-03-2023 Natriuretic peptide B (Bld) [Mass/Vol] 138 pg/mL High 0-100 [facility] Comment on above: Performed By: #### L [id number] #### [facility] ([facility]) [address] [place] [address] CBC WITH AUTO DIFFERENTIALon 04-03-2023 Basophils (Bld) [#/Vol] 0.06 10*3/uL Normal 0.00-0.20 [facility] Comment on above: Performed By: #### L [id number] #### [facility] ([facility]) [address] [place] [address] Basophils/100 WBC (Bld) 0.8 % Normal 0.0-1.0 [facility] Comment on above: Performed By: #### L [id number] #### [facility] ([facility]) [address] [place] [address] Eosinophils (Bld) [#/Vol] 0.15 10*3/uL Normal 0.00-0.50 [facility] Comment on above: Performed By: #### L [id number] #### [facility] ([facility]) [address] [place] [address] Eosinophils/100 WBC (Bld) 1.9 % Normal 0.0-6.0 [facility] Comment on above: Performed By: #### L [id number] #### [facility] ([facility]) [address] [place] [address] Erythrocyte distribution width (RBC) [Ratio] 14.2 % Normal 11.5-15.0 [facility] Comment on above: Performed By: #### L [id number] #### [facility] ([facility]) [address] [place] [address] ERYTHROCYTE MEAN CORPUSCULAR HEMOGLOBIN CONCENTRATION (G/DL) BY AUTOMATED 33.4 g/dL Normal 32.0-35.0 [facility] Comment on above: Performed By: #### L [id number] #### [facility] ([facility] [address] [place] [address] Hematocrit (Bld) [Volume fraction] 44.3 % Normal 36.0-48.0 [facility] Comment on above: Performed By: #### L [id number] #### [facility] ([facility] [address] [place] [address] Hemoglobin (Bld) [Mass/Vol] 14.8 g/dL Normal 12.0-15.0 [facility] Comment on above: Performed By: #### L [id number] #### [facility] ([facility] [address] [place] [address] Immature granulocytes (Bld) [#/Vol] 0.06 10*3/uL Normal 0.00-0.20 [facility] Comment on above: Performed By: #### L [id number] #### [facility] ([facility]) [address] [place] [address] Immature granulocytes/100 WBC (Bld) 0.8 % Normal 0.0-1.0 [facility] Comment on above: Performed By: #### L [id number] #### [facility] ([facility]) [address] [place] [address] Lymphocytes (Bld) [#/Vol] 2.57 10*3/uL Normal 1.20-4.00 [facility] Comment on above: Performed By: #### L [id number] #### [facility] ([facility]) [address] [place] [address] Lymphocytes/100 WBC (Bld) 32.2 % Normal 20.0-45.0 [facility] Comment on above: Performed By: #### L [id number] #### [facility] ([facility]) [address] [place] [address] MCH (RBC) [Entitic mass] 32.2 pg Normal 27.0-33.0 [facility] Comment on above: Performed By: #### L [id number] #### [facility] ([facility]) [address] [place] [address] MCV (RBC) [Entitic vol] 96.3 fL Normal 82.0-98.0 [facility] Comment on above: Performed By: #### L [id number] #### [facility] ([facility]) [address] [place] [address] Monocytes (Bld) [#/Vol] 0.79 10*3/uL Normal 0.10-1.00 [facility] Comment on above: Performed By: #### L [id number] #### [facility] ([facility]) [address] [place] [address] Monocytes/100 WBC (Bld) 9.9 % Normal 5.0-12.0 [facility] Comment on above: Performed By: #### L [id number] #### [facility] ([facility]) [address] [place] [address] Neutrophils (Bld) [#/Vol] 4.36 10*3/uL Normal 1.60-7.60 [facility] Comment on above: Performed By: #### L [id number] #### [facility] ([facility]) [address] [place] [address] Neutrophils/100 WBC (Bld) 54.4 % Normal 40.0-72.0 [facility] Comment on above: Performed By: #### L [id number] #### [facility] ([facility]) [address] [place] [address] PLATELETS (10*3/UL) IN BLOOD AUTOMATED COUNT 254 10*3/uL Normal 150-400 [facility] Comment on above: Performed By: #### L [id number] #### [facility] ([facility]) [address] [place] [address] RBC (Bld) [#/Vol] 4.60 10*6/uL Normal 3.80-5.00 [facility] Comment on above: Performed By: #### L [id number] #### [facility] ([facility]) [address] [place] [address] WBC (Bld) [#/Vol] 7.99 10*3/uL Normal 4.00-10.60 [facility] Comment on above: Performed By: #### L [id number] #### [facility] ([facility]) [address] [place] [address] COMPREHENSIVE METABOLIC PANE Gaurav 04-03-2023 Albumin [Mass/Vol] 3.8 g/dL Normal 3.5-5.7 [facility] Comment on above: Performed By: #### L [id number] #### [facility] ([facility]) [address] [place] [address] ALP [Catalytic activity/Vol] 73 U/L Normal 34-104 [facility] Comment on above: Performed By: #### L [id number] #### [facility] ([facility] [address] [place] [address] ALT [Catalytic activity/Vol] 15 U/L Normal 7-52 [facility] Comment on above: Performed By: #### L [id number] #### [facility] ([facility] [address] [place] [address] Anion gap [Moles/Vol] 14 mmol/L Normal 7-20 [facility] Comment on above: Performed By: #### L [id number] #### [facility] ([facility] [address] [place] [address] AST [Catalytic activity/Vol] 25 U/L Normal 13-39 [facility] Comment on above: Performed By: #### L [id number] #### [facility] ([facility]) [address] [place] [address] Bilirubin [Mass/Vol] 0.3 mg/dL Normal 0.3-1.0 [facility] Comment on above: Performed By: #### L [id number] #### [facility] ([facility] [address] [place] [address] Calcium [Mass/Vol] 9.6 mg/dL Normal 8.6-10.3 [facility] Comment on above: Performed By: #### L [id number] #### [facility] ([facility] [address] [place] [address] Chloride [Moles/Vol] 104 mmol/L Normal 98-107 [facility] Comment on above: Performed By: #### L [id number] #### [facility] ([facility]) [address] [place] [address] CO2 [Moles/Vol] 27 mmol/L Normal 21-31 [facility] Comment on above: Performed By: #### L [id number] #### [facility] ([facility]) [address] [place] [address] Creatinine [Mass/Vol] 0.65 mg/dL Normal 0.60-1.20 [facility] Comment on above: Performed By: #### L [id number] #### [facility] ([facility]) [address] [place] [address] GLOMERULAR FILTRATION RATE ML/MIN/1.73 SQ M.PREDICTED 93.5 mL/min/1.73m*2 Normal >60.0 [facility] Comment on above: Result Comment: [facility]'s estimated glomerular filtration rate (eGFR) [...] individuals. Performed By: #### L [id number] #### [facility] ([facility]) [address] [place] [address] Glucose [Mass/Vol] 120 mg/dL High 70-100 [facility] Comment on above: Performed By: #### L [id number] #### [facility] ([facility]) [address] [place] [address] Potassium [Moles/Vol] 4.1 mmol/L Normal 3.5-5.1 [facility] Comment on above: Performed By: #### L [id number] #### [facility] ([facility]) [address] [place] [address] Protein [Mass/Vol] 6.7 g/dL Normal 6.0-8.3 [facility] Comment on above: Performed By: #### L [id number] #### [facility] ([facility]) [address] [place] [address] Sodium [Moles/Vol] 141 mmol/L Normal 136-145 [facility] Comment on above: Performed By: #### L [id number] #### [facility] ([facility]) [address] [place] [address] Urea nitrogen [Mass/Vol] 32 mg/dL High 7-25 [facility] Comment on above: Performed By: #### L [id number] #### [facility] ([facility]) [address] [place] [address] UREA NITROGEN/CREATININE (MASS RATIO) IN SER/PLAS 49.2 Normal [facility] Comment on above: Performed By: #### L [id number] #### [facility] ([facility]) [address] [place] [address] MAGNESIUMon 04-03-2023 Magnesium [Mass/Vol] 1.2 mg/dL Low 1.9-2.7 [facility] Comment on above: Performed By: #### L [id number] ####[facility] ([facility])[address] [place] [address] PHOSPHORUSon 04-03-2023 Magnesium [Mass/Vol] 3.6 mg/dL Normal 2.5-5.0 [facility] Comment on above: Performed By: #### L [id number] ####[facility] ([facility])[address] [place] [address] PROTIME-INRon 04-03-2023 INR IN PPP BY COAGULATION ASSAY 1.00 Normal 0.90-1.10 [facility] Comment on [...] CHEST 1995;[id number]. Performed By: #### L [id number] ####[facility] ([facility])[address] [place] [address] PROTHROMBIN TIME (PT) IN PPP BY COAGULATION ASSAY 13.2 Seconds Normal 12.3-14.8 [facility] Comment on above: Performed By: #### L [id number] ####[facility] ([facility])[address] [place] [address] TROPONIN Ion 04-03-2023 Troponin I.cardiac [Mass/Vol] 0.10 ng/mL High 0.00-0.04 [facility] Comment on above: Performed By: #### L [id number] #### [facility] ([facility]) [address] [place] [address] BUN + Creatinineon 3 Creatinine [Mass/Vol] 0.5 mg/dL Normal 0.5-0.9 [facility] Comment on above: Performed By: #### B UNCRT, CBC, GLU, LYTE #### [facility] [employer] [address] [place] [address] Crm Campaign Manager: Chalo Rendon MD GFR/1.73 sq M.predicted among non-blacks MDRD (S/P/Bld) [Vol rate/Area] mL/min/{1.73_m2} Normal >60 [facility] Comment on above: Result Comment: These [...] #### B UNCRT, CBC, GLU, LYTE #### [facility] [employer] [address] [place] [address] Crm Campaign Manager: Chalo Rendon MD Urea nitrogen [Mass/Vol] 14 mg/dL Normal 8-23 [facility] Comment on above: Performed By: #### B UNCRT, CBC, GLU, LYTE #### [facility] [address] [place] [address] Crm Campaign Manager: Chalo Rendon MD CBCon 02-02-2023 Erythrocyte distribution width (RBC) [Ratio] 14.3 % Normal 11.8-14.4 [facility] Comment on above: Performed By: #### B UNCRT, CBC, GLU, LYTE #### [facility] [employer] [address] [place] [address] Crm Campaign Manager: Chalo Rendon MD Hematocrit (Bld) [Volume fraction] 47.5 % High 36.3-47.1 [facility] Comment on above: Performed By: #### B UNCRT, CBC, GLU, LYTE #### [facility] [employer] [address] [place] [address] Crm Campaign Manager: Chalo Rendon MD Hemoglobin (Bld) [Mass/Vol] 16.5 g/dL High 11.9-15.1 [facility] Comment on above: Performed By: #### B UNCRT, CBC, GLU, LYTE #### [facility] [employer] [employer] [address] [place] [address] Crm Campaign Manager: Chalo Rendon MD MCH (RBC) [Entitic mass] 33.7 pg High 25.2-33.5 [facility] Comment on above: Performed By: #### B UNCRT, CBC, GLU, LYTE #### [facility] [employer] [address] [place] [address] Crm Campaign Manager: Chalo Rendon MD MCHC (RBC) [Mass/Vol] 34.7 g/dL Normal 28.4-34.8 [facility] Comment on above: Performed By: #### B UNCRT, CBC, GLU, LYTE #### [address] [address] Crm Campaign Manager: Chalo Rendon MD MCV (RBC) [Entitic vol] 97.1 fL Normal 82.6-102.9 [facility] Comment on above: Performed By: #### B UNCRT, CBC, GLU, LYTE #### [address] [address] Crm Campaign Manager: Chalo Rendon MD NRBC Automated 0.0 per 100 WBC Normal 0.0 [facility] Comment on above: Performed By: #### B UNCRT, CBC, GLU, LYTE #### [place] [address] Crm Campaign Manager: Chalo Rendon MD Platelet mean volume (Bld) [Entitic vol] 12.3 fL Normal 8.1-13.5 [facility] Comment on above: Performed By: #### B UNCRT, CBC, GLU, LYTE #### [address] [address] Crm Campaign Manager: Chalo Rendon MD Platelets (Bld) [#/Vol] 149 10*3/uL Normal 138-453 [facility] Comment on above: Performed By: #### B UNCRT, CBC, GLU, LYTE #### [address] [address] Crm Campaign Manager: Chalo Rendon MD RBC (Bld) [#/Vol] 4.89 10*6/uL Normal 3.95-5.11 [facility] Comment on above: Performed By: #### B UNCRT, CBC, GLU, LYTE #### [address] [address] Crm Campaign Manager: Chalo Rendon MD WBC (Bld) [#/Vol] 8.8 10*3/uL Normal 3.5-11.3 [facility] Comment on above: Performed By: #### B UNCRT, CBC, GLU, LYTE #### [address] [address] Crm Campaign Manager: Chalo Rendon MD Electrolyteson 02-02-2023 Anion gap [Moles/Vol] 10 mmol/L Normal 9-17 [facility] Comment on above: Performed By: #### B UNCRT, CBC, GLU, LYTE #### [address] [address] Crm Campaign Manager: Chalo Rendon MD Chloride [Moles/Vol] 104 mmol/L Normal 98-107 [facility] Comment on above: Performed By: #### B UNCRT, CBC, GLU, LYTE #### [facility] [employer] [address] [place] [address] Crm Campaign Manager: Chaol Rendon MD CO2 [Moles/Vol] 24 mmol/L Normal 20-31 [facility] Comment on above: Performed By: #### B UNCRT, CBC, GLU, LYTE #### [facility] [employer] [address] [place] [address] Crm Campaign Manager: Chalo Rendon MD Potassium [Moles/Vol] 4.2 mmol/L Normal 3.7-5.3 [facility] Comment on above: Performed By: #### B UNCRT, CBC, GLU, LYTE #### [facility] [employer] [address] [place] [address] Crm Campaign Manager: Chalo Rendon MD Sodium [Moles/Vol] 138 mmol/L Normal 135-144 [facility] Comment on above: Performed By: #### B UNCRT, CBC, GLU, LYTE #### [facility] [employer] [address] [place] [address] Crm Campaign Manager: Chalo Rendon MD Glucoseon 02-02-2023 Glucose [Mass/Vol] 127 mg/dL High 70-99 [facility] Comment on above: Performed By: #### B UNCRT, CBC, GLU, LYTE #### [address] [address] Crm Campaign Manager: Chalo Rendon MD Office Visiton 10-31-2022 Follow-up visit [id number] Abhinav Quezada Arya 1950 F Date Provider Department Center 10/31/2022 [id number] OLMEDO Family History Problem Relation Age of Onset Hypertension Mother ALS Father Family Status - Relation Status Age at Mother Father Level of Service:26631 [place] OFFICE/OUTPATIENT NEW MODERATE MDM 45-59 MINUTES Normal [facility] Hemoglobin A1Con 10-27-2022 Glucose [Mass/Vol] 157 mg/dL Normal [facility] Comment on above: Result Comment: The ADA and AACC recommend providing the estimated average glucose result to permit better patient understanding of their HBA1c result. Performed By: #### Lali MIRANDA BMP #### [facility] [address] [place] [address] Crm Campaign Manager: Lucas Pink MD #### GLYHGB #### [address] [address] Crm Campaign Manager: Chalo Rendon MD HbA1c (Bld) [Mass fraction] 7.1 % High 4.0-6.0 [facility] Comment on above: Performed By: #### Lali MIRANDA BMP #### [facility] [address] [place] [address] Crm Campaign Manager: Lucas Pink MD #### GLYHGB #### [address] [address] Crm Campaign Manager: Chalo Rendon MD Basic Metabolic Profon 10-26 Anion gap [Moles/Vol] 9 mmol/L Normal 9-17 [facility] Comment on above: Performed By: #### C BC, BMP #### [facility] [address] [place] [address] Crm Campaign Manager: Lucas Pink MD #### GLYHGB #### [address] [address] Crm Campaign Manager: Chalo Rendon MD BUN/CRE Ratio 27 High 9-20 [facility] Comment on above: Performed By: #### C RUBEN, BMP #### [facility] [address] [place] [address] Crm Campaign Manager: Lucas Pink MD #### GLYHGB #### [address] [address] Crm Campaign Manager: Chalo Rendon MD Calcium [Mass/Vol] 8.8 mg/dL Normal 8.6-10.4 [facility] Comment on above: Performed By: #### Lali MIRANDA, BMP #### [facility] [address] [place] [address] Crm Campaign Manager: Lucas Pink MD #### GLYHGB #### [address] [address] Crm Campaign Manager: Chalo Rendon MD Chloride [Moles/Vol] 105 mmol/L Normal 98-107 [facility] Comment on above: Performed By: #### C RUBNE, BMP #### [facility] [address] [place] [address] Crm Campaign Manager: Lucas Pink MD #### GLYHGB #### [address] [address] Crm Campaign Manager: Chalo Rendon MD CO2 [Moles/Vol] 27 mmol/L Normal 20-31 [facility] Comment on above: Performed By: #### C RUBEN, BMP #### [facility] [address] [place] [address] Crm Campaign Manager: Lucas Pink MD #### GLYHGB #### [address] [address] Crm Campaign Manager: Chalo Rendon MD Creatinine [Mass/Vol] 0.6 mg/dL Normal 0.5-0.9 [facility] Comment on above: Performed By: #### C RUBEN, BMP #### [facility] [address] [place] [address] Crm Campaign Manager: Lucas Pink MD #### GLYHGB #### [address] [address] Crm Campaign Manager: Chalo Rendon MD GFR/1.73 sq M.predicted among non-blacks MDRD (S/P/Bld) [Vol rate/Area] mL/min/{1.73_m2} Normal >60 [facility] Comment on above: Result Comment: These [...] #### C RUBEN, BMP #### [facility] [address] [place] [address] Crm Campaign Manager: Lucas Pink MD #### GLYHGB #### [address] [address] Crm Campaign Manager: Chalo Rendon MD Glucose [Mass/Vol] 134 mg/dL High 70-99 [facility] Comment on above: Performed By: #### C BC, BMP #### [facility] [address] [place] [address] Crm Campaign Manager: Lucas Pink MD #### GLYHGB #### [address] [address] Crm Campaign Manager: Chalo Rendon MD Potassium [Moles/Vol] 4.3 mmol/L Normal 3.7-5.3 [facility] Comment on above: Performed By: #### C BC, BMP #### [facility] [address] [place] [address] Crm Campaign Manager: Lucas Pink MD #### GLYHGB #### [address] [address] Crm Campaign Manager: Chalo Rendon MD Sodium [Moles/Vol] 141 mmol/L Normal 135-144 [facility] Comment on above: Performed By: #### C BC, BMP #### [facility] [address] [place] [address] Crm Campaign Manager: Lucas Pink MD #### GLYHGB #### [address] [address] Crm Campaign Manager: Chalo Rendon MD Urea nitrogen [Mass/Vol] 16 mg/dL Normal 8-23 [facility] Comment on above: Performed By: #### C BC, BMP #### [facility] [address] [place] [address] Crm Campaign Manager: Lucas Pink MD #### GLYHGB #### [address] [address] Crm Campaign Manager: Chalo Rendon MD CBCon 10-26-2022 Erythrocyte distribution width (RBC) [Ratio] 13.7 % Normal 11.8-14.4 [facility] Comment on above: Performed By: #### C RUBEN, BMP #### [facility] [address] [place] [address] Crm Campaign Manager: Lucas Pink MD #### GLYHGB #### [address] [address] Crm Campaign Manager: Chalo Rendon MD Hematocrit (Bld) [Volume fraction] 47.2 % High 36.3-47.1 [facility] Comment on above: Performed By: #### C RUBEN, BMP #### [facility] [address] [place] [address] Crm Campaign Manager: Lucas Pink MD #### GLYHGB #### [address] [address] Crm Campaign Manager: Chalo Rendon MD Hemoglobin (Bld) [Mass/Vol] 15.9 g/dL High 11.9-15.1 [facility] Comment on above: Performed By: #### C RUBEN, BMP #### [facility] [address] [place] [address] Crm Campaign Manager: Lucas Pink MD #### GLYHGB #### [address] [address] Crm Campaign Manager: Chalo Rendon MD MCH (RBC) [Entitic mass] 33.5 pg Normal 25.2-33.5 [facility] Comment on above: Performed By: #### C RUBEN, BMP #### [facility] [address] [place] [address] Crm Campaign Manager: Lucas Pink MD #### GLYHGB #### [address] [address] Crm Campaign Manager: Chalo Rendon MD MCHC (RBC) [Mass/Vol] 33.7 g/dL Normal 28.4-34.8 [facility] Comment on above: Performed By: #### C BC, BMP #### [facility] [address] [place] [address] Crm Campaign Manager: Lucas Pink MD #### GLYHGB #### [address] [address] Crm Campaign Manager: Chalo Rendon MD MCV (RBC) [Entitic vol] 99.6 fL Normal 82.6-102.9 [facility] Comment on above: Performed By: #### C BC, BMP #### [facility] [address] [place] [address] Crm Campaign Manager: Lucas Pink MD #### GLYHGB #### [address] [address] Crm Campaign Manager: Chalo Rendon MD NRBC Automated 0.0 per 100 WBC Normal 0.0 [facility] Comment on above: Performed By: #### C BC, BMP #### [facility] [address] [place] [address] Crm Campaign Manager: Lucas Pink MD #### GLYHGB #### [address] [address] Crm Campaign Manager: Chalo Rendon MD Platelet mean volume (Bld) [Entitic vol] 12.0 fL Normal 8.1-13.5 [facility] Comment on above: Performed By: #### C BC, BMP #### [facility] [address] [place] [address] Crm Campaign Manager: Lucas Pink MD #### GLYHGB #### [address] [place] [address] Crm Campaign Manager: Chalo Rendon MD Platelets (Bld) [#/Vol] 141 10*3/uL Normal 138-453 [facility] Comment on above: Performed By: #### C BC, BMP #### [facility] [address] [place] [address] Crm Campaign Manager: Lucas Pink MD #### GLYHGB #### [address] [address] Crm Campaign Manager: Chalo Rendon MD RBC (Bld) [#/Vol] 4.74 10*6/uL Normal 3.95-5.11 [facility] Comment on above: Performed By: #### C BC, BMP #### [facility] [address] [place] [address] Crm Campaign Manager: Lucas Pink MD #### GLYHGB #### [address] [address] Crm Campaign Manager: Chalo Rendon MD WBC (Bld) [#/Vol] 9.4 10*3/uL Normal 3.5-11.3 [facility] Comment on above: Performed By: #### C BC, BMP #### [facility] [address] [place] [address] Crm Campaign Manager: Lucas Pink MD #### GLYHGB #### [address] [address] Crm Campaign Manager: Chalo Rendon MD MRI LSPAO ONEIL CONon 06-29-19 MRI LSBALDWIN WO CON EXAM: MRI of the lumbar [...] by: GARRET BENJAMIN Date: 2022-06-28 07:23 Normal [facility] US CAROTID ART BILon 10-28-2 022 [...] by: CHARY AWAD Date: 2022-01-20 17:33 Normal [facility] Consent Formson 01-18-2022 Consent Forms [id number]#[id number] OTGTIFF Normal [facility] CREATININEon 01-16-2022 Creatinine [Mass/Vol] 0.66 mg/dL Normal 0.55-1.02 [facility] Comment on above: Performed By: #### C RUFINO #### [facility] [address] [place] [address] Dr. Deborah Solorio EGFR-AF SCOTTISH >60 Normal >=60 [facility] Comment on above: Performed By: #### C RUFINO #### [facility] [address] [place] [address] Dr. Deborah Solorio EGFR-NON AF SCOTTISH >60 Normal >=60 [facility] Comment on above: Performed By: #### C RUFINO #### [facility] [address] [place] [address] Dr. Deborah Solorio CTA ABD ASHLEY WWO [...] by: BLAYNE CALDERÓN Date: 2022-01-16 19:35 Normal [facility] Coding Summaryon 01-11-2022 Coding Summary HTMLBase 64 OpskfgxaCJr8pRv+PGhlYW Q+VN8ALOScP15fiCIquS8X A0xJNF5YFFJSVFVCZN5TZN 6yaLB8SAddO3EfniFq NbtehUUuMZ81TVo8XQJ3lE jpXWboxJ4ctZTuR4t9JlRe JF53yM76LGkuCIImSpE7Xu ZpbjsgbWFy E9dhWhXhzBMpKhp+PHRhYm xlIHdpZHRoPScxMDAlJyBz rMmzHK8yYg1pINUyEPVjkD xhcHNlOiBj e7tjMADrRZpdEG3vsSarG3 JlyWA1BPCza2m8Jw02vSM+ IKIvBAP7pYlbTJqix776Sz Gxd9jpKNT2 lSMoDTmkWBQ0T85si6W7YT GrAIFrWFD7fVR6uX8eaLeu gbaaE6BmvIDxQeM4DMN1eP LndU0vsSbm gazwrV9bRtv+T34BNV6NTE OZIP1BJgc4T7SsGoogcYZ+ EI56WIVbMQ10sOXnqNOky5 uwyPc9RlQa TPQaDUA7nGmfYBymq3DlKI LgA44ojUKlb1Q2BCAulPic yRUzBzTphLY6cN9iQMavjy lrk9odyxkh Vxasz0ijte98rI68W40gXK cqYVKaNYI8ZNPiVKTwmGse af2syD7xWe3+ZDicg7uiy1 rreEr1XhBi KJSyxeGgcDsrINF4a8OjFb 32S5JsbAsgm4GiHyz0cd79 qOPkw4E2kGZ7IVjuIVMgyM 0rWEpcYgK9 YHTyTwBdfP11xLTcWPplXa 7cjXclsRikWG9lBPYlmqds OPGhjA1cTAAmiLXjpEzbZF 4wNTBpbjtm w141OfRpFMA7GCCgdFMvN5 HqpN0wTyEiUEHpKJEiP2Nv zBSkRYmvP954GKdqEqE5YQ OrsqYwG0Ue WWVyeFhfYlO2r2A9Jf2Wk3 NicxpkKXL3GBisZVTaMdJ4 SqZlOxV6J8JlXrq1LOTveG flJS1jI4Wq ZFVjcstmkdkkgOO9CGDdLY CrsM15nMNaFKxiGs6ws6L8 r460FHZtHRHweA79Ek1sjE ogMTBwdCBU iQ4fjkswp6giyhjiQtDcPW WoXUz3VRv5PFOaiCnwPnBs MKN5EnX4XPH2dSManU6vaC olvhzjyN8k Oyc+J52agC2vPJI8UFM8nf ruLQVvfpWoKZ30EF88X8Zn PjwvdGFibGU+PGRpdiBzdH rvJT1xSdZh p2fwu7JjSFdhH3SfUXRsCO cdJvj4RRPbALR3cMB4xA6q JDUdYDeza6Z6lZL1D6Xvrr Aojf1yb5qa YHHxEHijQ02raPRoo9Z3PW FejPC5AFPsfPzuFtNeqQ71 Oyc+YZGwiNbei8JzNdemq6 oqx2ieqWq7 UaUdFHIwryPavEkpCJI6y4 KbLx04Y68lMOipUOVtWAPq QYEfUPBrnIvopa5ezD1jBu 8+PGNvbCB3 cVR4gZ0mDIQgMcT1TAerB4 47UdFzpZSdKqunj1xsu2vo mWz6GuIuFPHtelCiqEjcEC W5c8UuSb32 T25gNDxrCMBrVMSiOWKfLD RlkXwwtn5foB1dEe0+PC9j i1usqz73tB77wZN+PHRkIH Q9iEqhYDhm CZFevH9vQIppQpT6NZLpBt ZtiF20gBRjTPvuZl9jdZwg iScwIQ6mRTZlpbweb760Nv Hjy6smAFSa uJWzCKwqHEU8T96iz9U8KG MxVWScFMZ4yRJ9iW7hdKsw bjogbGVmdDsgdmVydGljYW prZFrzJ506 IHRvcDsnPlBhdGllbnQgTm ZzWPx9F2FiWpd9MBTlsCsw BC8hfKGdDZilMn3ohSclqJ yjBV7sFFYu fbgjz396CsUhs3scERIlfF YpYJjrYWE1E94rz4L5JAZb EATpMNI6lTM5pN3gtBctkj ogbGVmdDsg arXvuIhoJGyeWTvmL019EX RvcDsnPkJpcnRoIERhdGU6 HJ42PC18oJCsf1Q1hJK9N5 BhZGRpbmct pmirqGM4MKHmXIGroX45Yf 9hfHicVq9rAUNvIPF6JGVe oDRjU4BgmA6nAyLmGVMfVA DaA7YfgAWv MAarR709FYypXgA7VBSeqn OdA0XhNMOzqCswUcV1x2J8 Un1QX3Q7TO88QF85dWMyn7 G7oOX3I9Pn DYDkpngtwihlvIB8PMOrEI JkrT38Qr3gyBjhIm6rLFCq UZB6XUOhaKSbO0PrcS0zZr AjMDAwMDAw Q7SerJHqJYnaG567RSqfRh W9UZIvmgXhB3LzDSAmkGhd IjU5h9E7Hw4PTLo0XQ74WH 63cAPtk4L5 rGN4G5KfOXZlmmsxyiczqZ J9FXTqDJKcgS53Pg6jnPmh Np6rKPJyEIM4NWAjiESrG9 MhfN3cKmSa TXJwZQUqK1XibRNeMZmaH3 06NNpvHdA3UQBqktAiV1Qx EOBpnQizPgM1t6S5Lm9IWW MmZR78SLT8 oZZ6QV27VP60S8FhOqygfN FibGU+PHRhYmxlIHdpZHRo ESrtHTTmWoTepBpqPM8bDn 9yZGVyLWNv gDnxtJZlPbNxq3iaRJMmGS mrSK5ycUpoC0CgrGP8EFKo r9g1Uc93P12vI6EkpYG+PG OzdSV0dOX3 rH3pPbAzIvD1AGgkX497Ce JygHRwCmzul2fzy6bulOg9 SzX2CAWnbsKcbErhIKI0s8 XeOj98E29p IHdpZHRoPSIxNSUiIHZhbG xkzq9lbT2fYy8+PGNvbCB3 nCD8mS7pFbWxJdC4BRnaQ4 49InRvcCIv Sbiwe6efm5cajJe4ToNrMP AnxjXuhOieQLB4p3DjDs76 C9VgzGczc2EjXqr7lp96vX Frf7J9nGI6 Y5LiUFDbuktaxIPduEcwLF 2vBAArksqpVVRfmK5nMHFc M1q7PsMfMcU2QGndU1Vwza K4FHAphAIm XAitGET9X13et5L9JGDnZN SaUCU2zOK3pC5meXfwwdxn bGVmdDsgdmVydGljYWwtYW auW069VNAf tDdgWXBwmK1rDVVsbHVtnB qgTG3oOJMasgkiRtEJNFiU LCBCUkVOREEgVzwvdGQ+PH BqYAT2sXty NCgtKAOayB8tMAAaB8d9Xb FzEeX9HRzjM0CkECKulrxm Eo53zH2xUtImHcF3XMzoI4 DyruN2ETDe qMYkKNeaRVD6N78sh2Z1YI HdHGPuNOC3aZS6qJ3uiRwq bjogbGVmdDsgdmVydGljYW xkAEtaW981 GEMogYwfZtU2XbY0EjP4GM X4R8KcXii7XLCudWlxXF5y iIUoOVupBg7kiEhozWjlFO 4wNTBpbjtw IFBlwN0zKKAzqMNjlZjuVR 3lMFDempkhr659WlIbCSC6 FOBkgDGzA7FvvA1oRmXfYV UlSCLcX9Up eOAtZXqoC013TFwtLnG8EX NyarRuB9GxQHIefVhpJeU7 k8J6Oo26LDLTFBVvtnbwoV Q+PHRkIHN0 zWmpITslWCEzuF4yQHCgX7 f7UdKqUdL7WZehS7QiOHXy ytbfIs90sU1aPjPxSuV5GK awP5VzqqA3 VLStdSTgQOlmBZB8J56ac3 G1TGHjMKUdPJV9eLK3dS2t bGlnbjogbGVmdDsgdmVydG ljYWwtYWxp X857XKInlNegAdNPZKZNNA wvdGQ+GNMqLXN9kBxqQMtf OJZwkF1bYWBvP5f1SdUtYf J6ETpjG3Tc PUWekxemWc93fB1tIkYyVe Y7LLntG9LnvhC4HVWrcIAi ZOueLOD4S75qn5M0LRXrFY BnSBP2mFR4 bF2teExvizhpcQJaeRdsao QggVeyQJtoTQzpV535OXUk cWnjBlUpdKJWrFWyQNG2TU 69BU80K6Dh PjwvdGFibGU+PHRhYmxlIH dpZHRoPScxMDAlJyBzdHls HI3kDl4xZQHwVNEmjToibP TwTcUvf4io KLEcQAbzEA9fyUfeB8FcgA Z1QWBbl5m1Oo37X07oS5Hl dXA+VAQeiVS8pLC7iZ7gRn ImStK7FYiv M283IuQrrRIeZelib1yyg2 rurZh0WmYmGXPwfwPlzSvi MCK1x9KtSd17O34xGGppFT RoPSIyMCUi XNGqwUyhpr1rbH5fKz6+PG AwxWX0bEM4fM5vDePoZqX8 BQobV981EmVslWVkZytoY1 2vK7ZtdVH+ YIQfJvl6LCZqwXnlPT6egY WxKDjcWf6zXSO6ZpUzRcUx LFypW1QfPHLjhcmhkiexiU Z3TXUbTCZi wH10Dg3dfKwyQs7wXFPkWY T0KVNunZMvT8KsnU2aGcGa URUbDBMzA2MynNOiBJmdQ9 02ZSgyPmB4 CWFrfmAiM3LxPUQuxQooVk I6s4X5Oo8MjGsahYWvVI7h UoLbULv3K4YbEzz3ZIIruD jwTS2fmZSn FEypGj9ccPzjeSogMJ2lFZ Vimmjhr475KtDkq5ruBBZp wAYeHDtkQME7U46fl8V6JL MwMDAwMDA7 lUH9pV0igLeypyxgnYYlvW agkqLblTchRRypQTyoY865 WENpdDwdFrYTTqi8K9WxPh y9IEPicHhn BD4cjMWjAJjtAz6mkXynrZ lrBY7lWBOcrspbg967YqWb c2diOYLmtWWeMFoiTOS9A8 9em9M7FQVd OPEvWRZ8qTU9xU1tgUfmwq ogbGVmdDsgdmVydGljYWwt GQaxL880FFIbpNriYn6OCw w2S4ZjPrr8 ZPHqiMfxSX0euVNqPHjhNj 7pqSqxvCwmMA8lQXJioahs y869LwQia8clZFJdaYOiMN ihEZT1N76f p7E0GKGyZJDcSED5hPI6oF 1hbGlnbjogbGVmdDsgdmVy rFvvBXxcJDfzI834FRWglO snPlBheWVy OjwvdGQ+HP48bx20T7GxAl osGzo2TOTkOGF0pEX6jZ0n MVUtTLfbn9X6rWQ4J3Gbmo Gpid9ke2vi YXB (more content not included)... [facility] Consultation/Specialist Note on 01-11-2022 Consultation/Specia list Note [id number]#[id number] [facility] 01-10-2022 Consent Forms [id number]#[id number] [facility] Intraoperative Recordon 01-10-2022 MAGR Intraoperative Record MAGR Intra-Op Record Summary Primary Physician: Ambrose Rodriguez DO Finalized Date/Time: 01/10/22 11:08:45 Pt. Name: MIRNA QUEZADAO.B./Sex: 1950 FEMALE Med Rec #: [id number] Physician: Ambrose Rodriguez DO Financial #: [id number] Pt. Type: D Room/Bed: / Admit/Disch: 01/09/22 [...] Role Performed Surgeon - Primary Anesthesiologist of Pick Up Man Record Time In 01/09/22 16:20:00 01/09/22 16:20:00 01/09/22 16:20:00 Time Out 01/09/22 16:57:00 01/09/22 16:57:00 01/09/22 16:57:00 Procedure Carpal Tunnel Carpal Tunnel Carpal Tunnel Release(Left) Release(Left) Release(Left) Last Modified By: Aurora Collazo RN, Barbara RN Long, Barbara RN 01/09/22 17:23:23 01/09/22 17:23:23 01/09/22 17:23:23 Entry 4 Entry 5 Case Attendee Duyen Medina [employer] Role Performed Scrub Personnel Computer Numeric Control Setter Time In 01/09/22 16:20:00 01/09/22 16:20:00 Time Out 01/09/22 16:57:00 01/09/22 16:57:00 Procedure Carpal Tunnel Carpal Tunnel Release(Left) Release(Left) Last Modified By: Aurora Collazo RN, Barbara RN 01/09/22 17:23:23 01/09/22 17:23:23 Surgical Procedures MAGR Pre-Care Text: A.20 Verifies operative procedure, surgical site, and laterality Im.150 Develops individualized plan of care Entry 1 Procedure Carpal Tunnel Release Primary Procedure Yes Primary Surgeon Ambrose Rodriguez Modifiers Left Emanuel DO Surgeon Comment LEFT CARPAL TUNNEL Start [...] By Aurora Collazo RN Scrub 10% Povidone-Iodine [place] Prep Area (Im.270) Elbow and forearm, Hand [...] of tootie (more content not included)... Normal [facility] Anesthesia Noteon 01-09-2022 Anesthesia Note Patient: DANI QUEZADA Age: 71 years Sex: FEMALE : 1950 Associated Diagnoses: None Author: Clint Bernal MD Postoperative Information Post Operative Note: Operative Day. Anesthetic utilized: Monitored anesthesia care. Health Status Allergies: Allergic Reactions (All) Severe Augmentin- Angioedema. Problem list (past medical history): All Problems Cigarette smoker / SNOMED CT 103225252 / Confirmed Diabetes / SNOMED CT 933985441 / Confirmed H/O Parkinson's disease / SNOMED CT 430741960 / Confirmed History of heart attack / SNOMED CT 9765013054 / Confirmed HTN (hypertension) / SNOMED CT 4250387225 / Confirmed Physical Examination VS/Measurements Vital Signs [...] on: 01/09/2022 16:59 EDT] Clint Bernal MD [facility] Anesthesia Note Patient: DANI QUEZADA Age: 71 [...] All Problems Cigarette smoker / SNOMED CT 555383914 / Confirmed Diabetes / SNOMED CT 669362061 / Confirmed H/O Parkinson's disease / SNOMED CT 257188124 / Confirmed History of heart attack / SNOMED CT 7009332715 / Confirmed HTN (hypertension) / SNOMED CT 9858999765 / Confirmed Histories Family History: No family history items have been selected or recorded. Procedure history: Cholecystectomy (18470768). Triple coronary bypass (965993222). delivery (2523812997). Comments: 12/30/2021 13:19 Yana Miranda RN x2 [...] pattern. Review / Management Laboratory Results Plan [place] [employer]esthesiologists#(ASA ) physical status classification: Class III. Anesthetic Preoperative Plan Anesthesia: Monitored anesthesia care. Anesthetic plan, risks, benefits, and alternatives discussed with the patient and/or family. Patient verbalized understanding. [Electronically Signed on: 01/09/2022 15:07 EDT] Clint Bernal MD [Verified on: 01/09/2022 15:07 EDT] Clint Bernal MD Normal [facility] Inpatient Patient Summaryon 01-09-2022 Inpatient Patient Summary [place] [id number] Patient Discharge Instructions Name: MIRNA QUEZADA : 1950 Patient Address: [address] [place] [id number] Primary Care Provider: Name: VILLA NICOLAS After you are discharged if you find you have any questions, please, call [phone] ext [phone] to speak to a nurse. Discharge Diagnosis: Left carpal tunnel syndrome Prescription Information: If you have been given a prescription for narcotics, seek immediate medical attention if you have any difficulty breathing or any sudden status changes such as confusion and sleepiness. If you or anyone you know is experiencing suicidal thoughts, mental health, alcohol and/or drug addiction problems; contact the [facility] 16/10 Crisis Hotline -Text 4HQJZ gk 711082. If you received any narcotics, sedation, or [...] business decisions or sign any legal documents [facility] would like to thank you for allowing us to assist you with your healthcare needs. The following includes patient education materials and information regarding your injury/illness. MIRNA QUEZADA has been given the following list of follow-up instructions, prescriptions, and patient education materials: Follow-up Instructions With: Address: When: VAZQUEZ COATES [address] [place] [address], [address] [place] [address] Business (1) 01/18/2022 11:30 AM With: Address: When: VILLA NICOLAS [facility], [address] [place] [address] [address] [place], [place] [id number] Business (1) Medications During the course of [...] oral t (more content not included)... [facility] Post[facility] Record [facility] Phase II Record Summary Primary Physician: Ambrose Rodriguez DO Finalized Date/Time: 01/09/22 18:22:17 Pt. Name: MIRNA QUEZADA /Sex: 1950 FEMALE Med Rec #: [id number] Physician: Ambrose Rodriguez DO Financial #: [id number] Pt. Type: D Room/Bed: / Admit/Disch: 01/09/22 [...] Signed By: Laura Lepe RN 01/09/22 18:22 [facility] Preoperative Record MAGR Pre-Op Record Summary Primary Physician: Ambrose Rodriguez DO Finalized Date/Time: 01/09/22 16:37:48 Pt. Name: MIRNA QUEZADA /Sex: 1950 FEMALE Med Rec #: [id number] Physician: Ambrose Rodriguez DO Financial #: [id number] Pt. Type: D Room/Bed: / Admit/Disch: 01/09/22 [...] Signed By: Aurora Collazo RN 01/09/22 16:37 [facility] POCT Glucose Levelon 022 Glucose [Mass/Vol] 118 mg/dL Normal 74-118 [facility] Comment on above: Performed By: #### 4 [id number] ####[facility] (DEFAULT)[address] [place] [address] Patient Handouton 01-09-[address] COLON POST OPERATIVE CARPEL TUNNEL INSTRUCTIONS SURGEONS WRITTEN INSTRUTCTIONS: -Keep your hand elevated above your elbow for the first 24 hours after surgery -Wiggle your fingers frequently while awake -DO NOT lift heavy objects or ict security specialist forcefully with your hand -Change your dressing [...] or concerns, please call the office at [phone] -Follow up as scheduled [facility] Progress Note - Nurseon 12-24 Progress Note - Nurse Spoke with pt and informed her to be here at 7am and NPO after MN, she verbalizes understanding. [Electronically Signed on: 01/06/2022 12:05 EDT] Itzel Dubose RN [Verified on: 01/06/2022 12:05 EDT] Itzel Dubose RN Normal [facility] 2019 Novel Coronavirus (CoVI D-19), INDIRA LCon 01-05-2022 SARS-CoV-2 (COVID-19) RNA INDIRA+probe Ql (Unsp spec) Not detected Invalid Interpretation Code Not Detected [facility] Comment on above: Order Comment: [id number] [facility]#[phone] Result Comment: This nucleic acid amplification test was developed and its performance characteristics determined by [employer]. Nucleic acid amplification tests include RT- PCR [...] detected) result in this assay. Performed At: [address] [id number] Birgit Andino PhD Ph:[phone] Performed By: #### 6 [id number] ####[facility] (DEFAULT)[address] [place] [address] Coding Summaryon 01-05-2022 [facility] TkzefrwmUIn7wUj+PGhlYW Q+RR0KVFElE90slMKreO0U X8hRKF1YVAKIIGDCLA9MGJ 7ahIH6YMcxS2IwrbSw GcgwmVRlAV75LGe5ETP1lH ffIGcuvY2okIEaM2v1CwNb UJ64sC89SGkzYTSwEfH0Md ZpbjsgbWFy E3loYfAylLInSlp+PHRhYm xlIHdpZHRoPScxMDAlJyBz hFtgTT2cPz5wOJBhEKKdoW xhcHNlOiBj y5dxNCHeGCbyTM1msBofY9 LkoGI4LDOvb4o4Uk39sKL+ PEMtBUZ5cJwqBWirm392Jb Ixg1orHNI5 rJNyANktXUQ0S98rq7S3FV ZdNJFsQIP7yKJ4vN6ucCsm naiqU8BteTBbFlL8SZT7iT KnhI2ujIzk fhddgG8uPew+G59GSS9FHE MNHZ7VVop2J4XjNsrsfHY+ IY47PPHyUV00oMVykQMyf6 rdaWy7MyCr ITIzYRF0tBiaXEchn8YtHZ WsG99taMVvv0W5UPCmhCey aFDhLnKjkDO2nB1dYMdfls qzk5qclpji Mhsnd0qhgf52tH65T51aHA ycDPYkHKH0SKQzLAKrvSvc zz9xwN9uUc9+QHrev5fqf1 gjjPd2VaPj DOUlphTzeXgdCPM6b1BrDh 21N8OwxWwtp6NjGfa0tt40 uFZiw4F5dVQ6EYpeNAJdeK 6wDOkmNxA6 TGZmWrNauN35dXUiPLqzIi 2zcDijpYadUR4nZLYxpbhs MNXdlN5aCFDzcTMsqJnvBF 4wNTBpbjtm k089PzTcOLZ0MXHciAEjV1 DbiT9iLoYuGLWyEYDbH1Fx aLBrYFcwS449LQbbZaC4CS QtptBjD6Xf WJTiiKdbFoU0m7W0Dc3Ha0 AuuvqwYYL2WJyaVZNfMcNw FuXpYtV6L8YdIsg0KNIkrJ lqJV9kM9Ui LLGzowsayzcisXU6SIAuEC MhdB50mBDwMWysKa1np5Q0 b428BTXzXVAqkR61Mu9bvF ogMTBwdCBU vR3tmxpvs0erdelaLbLeBC ZwYVo4FAd7OMFcsLmcUkVa KGV4RrW8YJD0bFXllK6vfA biudujkQ7r Oyc+V11uqR3bKTU0VNU0qo ixHVXyadNxNT98HH38L1Aj PjwvdGFibGU+PGRpdiBzdH prBK9wVrRq h7swa7VfUXjkV1DnFRShRQ vgZtv2FBOjKLN4aRD7hV8f MYMvSUtry0R0bKE5G8Cffp Titc5ml7be KTLiVGmsA91buKCjm4W5YB NpwIG4CIApuIrsXgXlpV01 Oyc+JLGodFwog9KkQypqb8 wta5oqhNi9 KkHfAJZhoyZrnDytXWM6d6 ZlKq42X46cZOlkJJHfOBYa VCJzDTOsfRghae6ynH1dUm 8+PGNvbCB3 pCT5bB0bCUKkXdA0OSukR3 17DyQxeSLrZtows5hxx1mf tEt6FcTeDEKhoiFywBwwGP A3j6OwSa95 C47lPLpzFTRuXASnQOPuTS BxvNkbrd7seD2rPr7+PC9j b0dpbi64mA30yCE+PHRkIH L5uLsvZHbn TZRjwY2pQWqbFoF1SZJwLo NerB26rDCsTWxhEy9lkBke kWykWO2eBIWfuhjev180Cn Ixl9cqLYTd sHXmSLpvZUE5A95br6J0HI EqNBThEGT4wRQ4pN5fmTlz bjogbGVmdDsgdmVydGljYW thUCnxT204 IHRvcDsnPlBhdGllbnQgTm AeQIo2X9MvIhb3IFQdoPgm JB8ihSJeLWphIp8xlUgwbH uxJJ2oEOMg wipuh595YoDny6xtCKByrN GpZTloZHS2R20cx4I0TGJx AVQmWOJ3wCS0gW6aqVraom ogbGVmdDsg bcLgdVabICmpHYfcW600QG RvcDsnPkJpcnRoIERhdGU6 CA24RT83wDGnn4J3fIG7E1 BhZGRpbmct ctxdkZT0IRPwZIHphQ76Im 8fpFoxFz3hDUBxXOS4SFKj bJTlZ3XggQ6iShXtZUYgGD WhW5ZjzHTt CNgwQ480LJsnNvP7QYSeuq WrN4ZuDTWbpBhcDpW2r2F4 Zh7XR9E6VK50BX66aYUyx4 O0kOP0M5Wc JUVexhjtbsnihJB0IREmHF TgkD85Gn0poRxaCc7uSXIv QCS4ZMJxbELdW9AkdU0rIs AjMDAwMDAw S7FbgJEpXPezI594OYnqCm V2BSImylJqL0SeQKIwnDda AyF1q4G9Fq6APYy4VY89SL 89aZQee0V3 fPF5M5StRAFlmwxbxogooY M1TQXrUEJtaD60Zm9bgVqv Xj4fEXGzPNM0MLFxwAUuO6 RvpI6eRpOm YYSvHSKxQ6TgqHBgDVgsH8 97VGdkUkD8DFFecbXuX8Xx MTBhiQjiLxJ5h4Z1Pl8RMU GoAP74WVU9 pCT5NE00DX16V9DiNiiwkB FibGU+PHRhYmxlIHdpZHRo MIdwSCOcCpGngLqxQE7jWr 9yZGVyLWNv yQdveDRmOzLso9pbARRuZF xfJQ9wlIiyH5OjqQW4PAEc x0n3Hv74N23lN9AptRB+PG YmeLE2jWA6 vJ3dUaRmBlX5XSwwT912De LnsPIsLgnxt1pmx9abeCv7 GjO1EUIcngPzkWyuSKF7j1 DxVx11W82d IHdpZHRoPSIxNSUiIHZhbG pksb0fjY5kRj6+PGNvbCB3 eEX4sL2eVzYyHwU8CXvqR5 49InRvcCIv Vxkus9okb0krkEh3QgIeQT GiyfJzeGwuFTI3w2VcHo30 M6LxwMcde2SlYat2ce01dI Tks5F0zGT6 Q6YgFMOoyxeqePUzaWgbGV 4gSCSqhgbxYUSjhC8cJVAk Q2n8QqBtQhY0JCbbV2Cgwi X3HZWazNAj LDulHRY7A49vu0J9KUQhAD OjPOL9rJD7bJ8cmZadekmw bGVmdDsgdmVydGljYWwtYW atU652SLNr cVqgYJBicL3bMGLkoZGsxO emOY2kMNYlppojUcVCHOjS LCBCUkVOREEgVzwvdGQ+PH BcMWL8iMna GGyyPHVqxZ4aTQZcE6b8Av HjBwH2CRrwL9NcIKHqteil Ba64lJ4cJxReGuV0PJozS2 AlcgN8KJWl hJPpPCaiRUT3C51dv4K3WD XtDFKuXCG5eMX2qH6mdRpx bjogbGVmdDsgdmVydGljYW hgSQgdL073 XTHyyCdaSpW2LgZ6AnV2UH M5N2OvDga4DLQfiApxMT9b tQStNLvxRt1fvQaipEakKJ 4wNTBpbjtw SDTlgE8bPDJxlFZdaRivNN 9xUELlrpfjk998RsNzTEA1 WJUkdWAlO8LdbN5hUbMiUU RxMFNyJ3Rk dBVhKTepK072PMsiJsD4AX SvoeZcK0TyXEDelHjcFuV2 r0U3Od70CKHJGFBlkbighC Q+PHRkIHN0 qUdkLJnbETRrdG6oPVUrA5 z5WpLyAlG9FUtzU9WzICVz pfwpTo07gV8aWwKpMlT4QZ jcA3LmrcR6 WDPfxSOoONeoBZP9Y90if8 U6BFFlLTSwJEF1jYB2lB2l bGlnbjogbGVmdDsgdmVydG ljYWwtYWxp E727EEKoxJzpRrXGENNPPM wvdGQ+QLLqNUK8mWcaPHry NGSwjK4pZEBtO4a1IhYvXs O2UWfpV3Zu FRDhewbwHg26gY2pFbQyZa Z7CZvwR8FtgqE0HEOcbPRq JRirMIT2A93yt9B6WLWsFD CrRGA6vQE3 fQ8uzZpburrqzUIhnTcqtj EooBtkWXylMAccN016VVGv yWcqWq2DOE82WA64M5GnHr wvdGFibGU+ PHRhYmxlIHdpZHRoPScxMD HpRvOtaBeeQG4fAw7uXVPn NDSmoOmuqXFaMtHkz3kgDH XvWNfrRW8p lHrtE6AjvQL8CIKvd0f0Iw 27T58jS2QkjGA+PGNvbCB3 jRG4xZ6aAcShXhD8CDkuV6 49InRvcCIv Luapz2gox7dvaSn1VpGrKK SlbxQiqOzxWZO9n9RrTl37 T92sNVaxDDYdQWXbXFZsKM LxtOlcvo2z tZ2kYi7+YQVwvLQ0eQE7pT 7rFeYzOyB9SLqwH171NrFj yEAqIbkdE79yQ4WijZZ+PH HeYbw7RBGv kFzpWI7jzMXbWSccYd5uPB X5QaClVgTjXOncC5BnLFSb gcbbrixrpLQ0HFUyPTCafB 46Di4qxXbq Kq7kAYMcSHB2LALnkELkU5 KslX3fDyEtCTQfTZCfG8Dw pHPyXMuwN681DNnzTdP0RC JihwCeF6Tf WHRxeReaIyU8j0N7Wr3JcF hltSKnJC1cSyFpUAl6W6Hs Iva2RNAueBocVQ6faJAnLH ceXh4ayDvy oZhkPG0iQXTocgsmz923Hr Uyh4kgJSIncUSyTZhsZST0 I87qy6E3OLMtGWUrCNH2zV M3oA2kaKoa bjogbGVmdDsgdmVydGljYW rvSAjbJ513ETCojCrdMuYK Yzc0N0JpDtk2XNKhwOyuFY 0ncGFkZGlu Yf0haQgkyLobPM0eECYgto apd206PwKyw2cuHWUscNMy MVlxQCK1L78kt0I1GEGbKX DeQFD8hFU3 dZ9jdYbnxopyrAGwsKzcls EiqLdvEXorERcbS040YVTg qRgoGw2HLlz7F0BdDrw3OV XwsQmbIS8i cKEgNGoiYl7knBdhyOrlYB 9bWXQanvdci756MvIlv4xe ICQjlZCdHCwhUJA5A95kn6 G9VJIiOPLk UNM6fEQ1hD4qbYkvlzkajG VmdDsgdmVydGljYWwtYWxp T689WIGjaNglCzGrmHYiNg wvdGQ+PC90 en21S7JwJharMyw9VFTdDM U3uNS4oM7dXCOxMJhjf2O6 cAE5C5UpwaDumr9ec0ckQG TuCBedX11l bGF (more content not included)... [facility] Coding Summaryon 01-03-2022 Coding Summary HTMLBase 64 PzzsypgxMMe3kYn+PGhlYW Q+NX3NAEQzL88vtEZzwM5Z Z2lSFD2JEEKKEGOMOO6OFQ 5uyNF3QOzgY9SrpjKw RrcfzKNiVZ07QPq7QJZ7yB jcZJqxwR0jsRFnP1v1CmRb KV75uM14XAzeSRAmWgI2Sy ZpbjsgbWFy C6xqHmQglVNjMzk+PHRhYm xlIHdpZHRoPScxMDAlJyBz nHrkSQ4zSs5rHUGfRXTdoS xhcHNlOiBj z4icHNCrDFbaNI3uiMmaC2 DgsJG9SEIdw0g0Xo97mIT+ HTVrGPE0hBzqYLidy661Fm Pfc8inSSY4 cXPqKSmkXSD7R55si2B5VN UbQXGvPZD1lBY3xL3ecKvv reypS3XbhCZfUmE8NBW2uI SreY1hfXyr qgcnxS2uHhf+E19LOC0RAO RNTV9TXst2C5FgXjcmsWP+ OK96IGWoVY60mTXytSLoh4 oxaRb2GgWx UYYuDLM6hIfqNYwej8FtRP RrQ35uoYOsu8D7JVTkgCae zBOmToZioSU7zV5uYUheqn zhg6oivfpi Odiph6iryl22yB92Y66sYO hhOYAtNWA2GHWbYXDawKqr hp0btS8cRs9+GMxqi4rmg3 qbpGl6OjLc XSIjxnWnbWjrWZI1t1PfHp 14O9ZebJiqp1FqWqp1qt26 rSJet2P5bLG8TXjjERRkqM 9vUBhaSaH2 RWHgLaZsoN72mJCsXUruXt 8xmIosdDhdON9mCSVvisak NQYndO7hWVLnpEJlnKpaUU 4wNTBpbjtm f140LhDgNBJ4VMAzqQCyA8 KvqZ7yTtQwOAHrRJHgJ7Tk mBYgOGrzF089XXetPfJ3TT SllxZuN2Uk XZRnxNscDcF4f6U1Sx3Wy1 TjmkiwZDQ8YUtyKXBuKkLx PwDuHiZ7G7CdFjx9KRKhmM zkCW7lF8Uy AUCyjsnafsfdrNF3GGElIO HftS94gPBxIQifIb5nh0P6 b761YVLcUOAeiF86Qr4nkW ogMTBwdCBU lT1zrvogt7neplmrIhRlNW GtMCp7ZGf7XQJbmBimFwXn RQZ0CyM3BYI2oIKqjE3chR wvwlqtdD1u Oyc+I56shT9vKBI2MJV5wd knLETthmDjBU99KI83S1Ii PjwvdGFibGU+PGRpdiBzdH geFZ9sJxEm p4mzj8KsEBbrU5QkVVQbDD rkHwy7KLCtKCX1sDI8cW1x NRMcXOrts5V6vKJ3T7Ndzs Ytmg8mx5dr HAQdQDuhP30ukNRsw4A0DE AiyHL8AOFhwVleDtIoxX80 Oyc+LHZzkLdqg0FnYbolg5 aef7uwqQr5 ArTtJZYtpiKzdEbsNTY8z0 LlSk55P44xCWtzZGAyUQAb GXXjEXXgdLpwoa0hhU2eMd 8+PGNvbCB3 dIC9bD4rQSWbDqL9GEbjR9 13PkCcsZDhQohxb0qwz3yx jOz0XvJiWXAjimOgjGffXY D9n1IcKn64 H37rKUhlWVMtJSHkQNOiUI PwaGzevg8pvJ0jKd7+PC9j c4fqxk92uN08sFW+PHRkIH F1vXgdVTlh KUErxA1sXGqnFzV6MRUhSn EylX11fJRuMNhqEz5qmJyv wZyvLY6wBUQjozfwy389Qy Vlr3vfIEXe gHYvYWosJZE1G13oa6Y3XI FvZHUpYTT0mZO0iL7puBnd bjogbGVmdDsgdmVydGljYW zfBIpjO904 IHRvcDsnPlBhdGllbnQgTm PqUQo4Q9KpZof9DBWfwOca CN7btGKvLUwmVw4ioTpamW qjVJ6qFZNd lunpe317FyWxy3caAXUjkF QyDApjIEQ6X33dm0M5MADc WCBxCYG7uSK0bE5amDpikh ogbGVmdDsg yiTrlLpwWUauJAdwJ389VF RvcDsnPkJpcnRoIERhdGU6 SK45XJ17eWKls7O4pKI9J0 BhZGRpbmct kiwnoNB7UTNbSQLdkK99Pc 9zmCehEr8iRYSeTVQ2WBOg qYJwK9KyqK0hLxVxLPNnEC WhT1OsfKPl NOtiQ659WEdcVwN5QXOhtr FfA6GvLKYyzQrjJnU6d5G5 Aj8YM1D4DX27WT78gMIij8 G0hCC2Q5Dd YMVtiphwvyxpfLC9UBAeIW OcmU96Lu2pqMdgPb9gGZEt POD4FCUjsVWmV8PwjG0xTo AjMDAwMDAw F3PlsVBpMFujC059WKhsPs J3LGUfagZnT2XuDGNquNbg RcU3i4H0Fb7SHEa1CO63SI 29iWWvs8O0 xVD0B7PtMTLzbwjoxghtqG N2IUWtDQFxvW87Wu4cjBbi Yp9aUHRoQRX4TRFnrSCvL7 PusR6rEbBw WMRmWWQgF1AiiFBaSKnwV5 17PIlpSeE3LFJnufQuK2Uk IVQheYwnFeN4j6Y9Yf6EDL WkQL60XPW5 dDG6OW08GH41M2CkUjdeaM FibGU+PHRhYmxlIHdpZHRo MEkdPIAuMoKhvHwkUR4jZv 9yZGVyLWNv cFktqBCgVcOre4dpUIHmRD giJN9zzGscV0PlsOK9BSJt f1j8Ax49I12nK8MpbQA+PG BktEA8eKD3 zB5sJcSdYfO2IWmsX407Ba EjgWMuBuxnh6khg3qmgNy7 ZaL6BFDdnpGzyDwqJWN6u1 PaKg12A95u IHdpZHRoPSIxNSUiIHZhbG agwx0bxA5nQr9+PGNvbCB3 nCX2fC6mPeXgHvI2HHdbG9 49InRvcCIv Rfvco7lni5xjtNk9JeLlCB EoznNpsDrkFAS2h6CmEl05 Z4DnqCrik0SnQcd8ov49dA Kll9U0vRC4 K9JhRBFwrkponUVqoQngZZ 4mMPEdlidxEPMemE2uWFUe Q0r0FiOjFmN6BGfnV9Wvwx D4OZThxWBr FRiqHPF1X52zo6X5XSSbPL KuRKA4vFG9pU7vbIiafjfe bGVmdDsgdmVydGljYWwtYW yaQ556UEIn gFpzMGBbeN0aONLdcLNrkW doAE0vAMSuckceRnQZODtD LCBCUkVOREEgVzwvdGQ+PH PaCXV9tIlk EIipIHVqlJ1xLLWoS5c3Hj LyRqL2FQvwY1GlWVErytum Pp56cB2kZaGoCxH0ZWnsU1 SaawE2PRIu uDVpCLwkNWA7V24ex8G6YZ MqKYMyNNW1cSM2bS3uqKbz bjogbGVmdDsgdmVydGljYW yqFIndA313 UMNvzAkyQgN1LpY0IcT7UH H1P6IpWql4ATCwaVrePH0e uMIlFCciNs4sgFuqmExhEL 4wNTBpbjtw FQSaxN7eNSEmtMCtlOciYR 1fLOSxssovh486FhFtIAT4 KHUmoFTeJ9FepQ2rDqOqVW LrUMEpK2Km tSJoLBztS991IUzvQhR3ZF UfepYbR8RcZJFhxQhyPmS2 x3T1Jy83PZNZWMTtnylovI Q+PHRkIHN0 wOiiTMxmTYPmcY5mUWAqY9 a8CfHtDjL6ZOddL7AeKOEf xrtiWw02rJ2nDdCfZuT8VC umJ3XvfcE3 [id number] I4DUHyZHCqGAJ3rYV4xZ0u bGlnbjogbGVmdDsgdmVydG ljYWwtYWxp N655QZNvuNngQtKRYSGIHY wvdGQ+BXRgQWW6fNisHKla YDUfrT5lFYAdY9a1NzMnPw I3KVtgZ9Jd MSUezlqwFw37vN9aZbHhTg K0AMcuU8DkjjM3XNPkuUQk FZsdQZT5M09zh4X4UTMtIS DqXQZ3tOH3 oA5qlUrnmqaszKQpsQfcea TonGsxVKaxELdrH394DHPw rSxdLr8WPU72DW58Q4CzZh wvdGFibGU+ PHRhYmxlIHdpZHRoPScxMD GeLoNzrYdcNW1fEs3bEZBj QTSifTgpeDOaXjXiu8ruPG IeMSdgRN2u fSarB7UllTX7PWZdf2v7Rx 54C64qP8TytLA+PGNvbCB3 rXF1xF0aSbAgIoE0BGqfM1 49InRvcCIv Qiwdd8mxn7mlzWc5GtHhYK XzwiIdhOfaJMI6p6VbJq76 V22aGOewZYRySJTuUANpZX VsnDpivc6k wY5kIz7+TWIdlUI2mKY2iU 0zMdMeRrU0UKykR194FlIw jDRdMsgoX19gX3XprRD+PH TrJaf7AAXx fNenIK0yfLFvWUopSi2yRJ F3DxXrMgOuSJznW3BgNQKk pmrqrllfdFT4AKNuKSBpcA 81Kl1sfWvv Rp9mGWPtNIM5STUbhQRfT9 YbpC9jHwCyPUMmFRKcH1Sx aQJuHPcwU163JXfkNpB2WC KemzNxU5Gd SLLxeVziUoP9o5M1Iv1ZrP ovhPQlSM6fEpXhPWp4P4Kj Bim5WVFgyXifNR4ifPGqUC lqVb6neNtd jGwxFI7yJLZpvvaaf031Bf Bkr8rhJXTiqSJrUOzpNOG2 T87cq4M6UMXdGPUyNMR8bR L3hG7hmChx bjogbGVmdDsgdmVydGljYW mqXVhvT001VYMviVqmOwEX Fnz1G6KnVnd3OKUggUgcVP 0ncGFkZGlu Sa9neSpgoXbrHQ9ySCMsbe qhr423FlTln5xjHWJgdRQg JVtuTAP2E26hk8V4XPUiZK NdVFJ8qFP8 bF9bpMvpaatkdWBuhYfqpx BacTijBUjkTVdjY299WSIa nKvjLr4MZer0C2OwTmv4NN JefIyvDV0s sNEcFVwoGr1zxInugIabCM 3kICTpcaycr504PgSab5bg FBBhpJHsVQoePVH0A96av2 V7EBBcKEUc WHR0jHU3aO2jkKbwjxyqiI VmdDsgdmVydGljYWwtYWxp F691ICCoaUlwWsHgfTRrPe wvdGQ+PC90 bl37N8EbXuzcTdl4MRLnGJ Q7qRY6fS8eSZBgBNkue5N1 eND1T7FtcqLjee5ro1biXL DaKWtqT57f bGF (more content not included)... [facility] Progress Note - Nurseon 12-24 Progress Note - Nurse PAT review done per Dr. Odonnell, no orders received. [Electronically Signed on: 01/02/2022 15:09 EDT] Yana Samson RN [Verified on: 01/02/2022 15:09 EDT] Yana Samson RN [facility] .Auto Diff 1on 12-30-2021 Auto [place] % 7 % Normal -12 [facility] Comment on above: Performed By: #### 1 [id number], [id number], [id number] ####[facility] (DEFAULT)[address] [place] [address] Baso Abs# 0.0 x10 Normal 0.0-0.2 [facility] Comment on above: Performed By: #### 1 [id number], [id number], [id number] ####[facility] (DEFAULT)[address] [place] [address]292 Basophils/100 WBC (Bld) 0.3 % Normal 0.2-2.0 [facility] Comment on above: Performed By: #### 1 [id number], [id number], [id number] ####[facility] (DEFAULT)[address] [place] [address] Eos Abs# 0.1 x10 Normal 0.0-0.4 [facility] Comment on above: Performed By: #### 1 [id number], [id number], [id number] ####[facility] (DEFAULT)[address] [place] [address]2784 Eosinophils/100 WBC (Bld) 0.6 % Low 0.9-4.0 [facility] Comment on above: Performed By: #### 1 [id number], [id number], [id number] ####[facility] (DEFAULT)[address] [place] [address] Lymph Abs# 3.5 x10 High 1.3-2.9 [facility] Comment on above: Performed By: #### 1 [id number], [id number], [id number] ####[facility] (DEFAULT)[address] [place] [address] 23572 Lymphocytes/100 WBC (Bld) 36 % Normal 14-48 [facility] Comment on above: Performed By: #### 1 [id number], [id number], [id number] ####[facility] (DEFAULT)[address] [place] [address] [place] Abs# 0.7 x10 Normal 0.0-0.8 [facility] Comment on above: Performed By: #### 1 [id number], [id number], [id number] ####[facility] (DEFAULT)[address] [place] [address] 24678 Neut Abs# 5.6 x10 Normal 1.5-9.2 [facility] Comment on above: Performed By: #### 1 [id number], [id number], [id number] ####[facility] (DEFAULT)[address] [place] [address] 98592 Neutrophils/100 WBC (Bld) 56 % Normal 44-88 [facility] Comment on above: Performed By: #### 1 [id number], [id number], [id number] ####[facility] (DEFAULT)[address] [place] [address] BMP Standardon 12-30-2021 eGFR Non AA >60 Invalid Interpretation Code [facility] Comment on above: Performed By: #### 1 [id number], [id number], [id number] ####[facility] (DEFAULT)[address] [place] [address] 00811 eGFR AA >60 Invalid Interpretation Code [facility] Comment on above: Result Comment: Melter Helper abigail Kidney disease could be indicated at eGFRs of less than 60 ml/min/1.73m2. Kidney Failure is indicated at less than 15 ml/min/1.73m2 Performed By: #### 1 [id number], [id number], [id number] ####[facility] (DEFAULT)[address] [place] [address] 82245 Anion gap [Moles/Vol] 15.0 mmol/L Normal 5.0-19.0 [facility] Comment on above: Performed By: #### 1 [id number], [id number], [id number] ####[facility] (DEFAULT)[address] [place] [address] 02189 Calcium [Mass/Vol] 9.2 mg/dL Normal 8.9-10.3 [facility] Comment on above: Performed By: #### 1 [id number], [id number], [id number] ####[facility] (DEFAULT)[address] [place] [address] 52407 Chloride [Moles/Vol] 104 mmol/L Normal 101-111 [facility] Comment on above: Performed By: #### 1 [id number], [id number], [id number] ####[facility] (DEFAULT)[address] [place] [address] 18040 CO2 [Moles/Vol] 23 mmol/L Normal 21-32 [facility] Comment on above: Performed By: #### 1 [id number], [id number], [id number] ####[facility] (DEFAULT)[address] [place] [address] 76595 Creatinine [Mass/Vol] 0.51 mg/dL Low 0.60-1.30 [facility] Comment on above: Performed By: #### 1 [id number], [id number], [id number] ####[facility] (DEFAULT)[address] [place] [address] 77112 Glucose [Mass/Vol] 103.0 mg/dL Normal 74.0-118.0 [facility] Comment on above: Performed By: #### 1 [id number], [id number], [id number] ####[facility] (DEFAULT)[address] [place] [address] Osmolality 273 mOsm/L Invalid Interpretation Code [facility] Comment on above: Performed By: #### 1 [id number], [id number], [id number] ####[facility] (DEFAULT)[address] [place] [address] 34748 Potassium [Moles/Vol] 4.6 mmol/L Normal 3.6-5.1 [facility] Comment on above: Performed By: #### 1 [id number], [id number], [id number] ####[facility] (DEFAULT)[address] [place] [address] Sodium [Moles/Vol] 137.0 mmol/L Normal 136.0-144.0 [facility] Comment on above: Performed By: #### 1 [id number], [id number], [id number] ####[facility] (DEFAULT)[address] [place] [address] Urea nitrogen [Mass/Vol] 10 mg/dL Normal 8-26 [facility] Comment on above: Performed By: #### 1 [id number], 7865269, [id number] ####[facility] (DEFAULT)[address] [place] [address] 94881 Urea nitrogen/Creatinine [Mass ratio] 20.0 mg/mg High 4.6-16.2 [facility] Comment on above: Performed By: #### 1 [id number], 6585326, 74605051 ####[facility] (DEFAULT)[address] [place] [address] 15585 CBC w/ Auto Diffon 2 Erythrocyte distribution width (RBC) [Ratio] 14.6 % Normal 11.5-15.0 [facility] Comment on above: Performed By: #### 1 [id number], 6174760, 31189691 ####[facility] (DEFAULT)[address] [place] [address] Hematocrit (Bld) [Volume fraction] 49.5 % High 33.7-40.4 [facility] Comment on above: Performed By: #### 1 [id number], 8303279, 77877947 ####[facility] (DEFAULT)[address] [place] [address] 97516 Hemoglobin (Bld) [Mass/Vol] 16.8 g/dL High 11.3-15.9 [facility] Comment on above: Performed By: #### 1 [id number], 5442275, 46076408 ####[facility] (DEFAULT)[address] [place] [address] 24300 Instr WBC 9.9 x10 Invalid Interpretation Code [facility] Comment on above: Performed By: #### 1 [id number], [id number], [id number] ####[facility] (DEFAULT)[address] [place] [address] 24237 Man Diff? Auto Normal [facility] Comment on above: Performed By: #### 1 [id number], 6548193, [id number] ####[facility] (DEFAULT)[address] [place] [address] 11183 MCH (RBC) [Entitic mass] 32 pg Normal 24-34 [facility] Comment on above: Performed By: #### 1 [id number], 2713854, 72410993 ####[facility] (DEFAULT)[address] [place] [address] 70875 MCHC (RBC) [Mass/Vol] 34 g/dL Normal 26-37 [facility] Comment on above: Performed By: #### 1 [id number], 0999062, [id number] ####[facility] (DEFAULT)[address] [place] [address] 23614 MCV (RBC) [Entitic vol] 95 fL Normal 81-100 [facility] Comment on above: Performed By: #### 1 [id number], [id number], [id number] ####[facility] (DEFAULT)[address] [place] [address] 07536 Platelet 138 x10 Normal 138-427 [facility] Comment on above: Performed By: #### 1 [id number], [id number], 56542262 ####[facility] (DEFAULT)[address] [place] [address] Platelet mean volume (Bld) [Entitic vol] 11.5 fL High 6.3-10.2 [facility] Comment on above: Performed By: #### 1 [id number], 4223293, [id number] ####[facility] (DEFAULT)[address] [place] [address] RBC 5.20 x10 Normal 3.70-5.30 [facility] Comment on above: Performed By: #### 1 [id number], [id number], 08085592 ####[facility] (DEFAULT)[address] [place] [address] WBC 9.9 x10 Normal 3.5-10.5 [facility] Comment on above: Performed By: #### 1 [id number], 2690233, 77135282 ####[facility] (DEFAULT)[address] [place] [address] US ARTERY LEG BILon 11-26-19 US ARTERY [...] by: CHARY AWAD Date: 2021-11-25 17:16 Normal [facility] Complete Blood Count with Au to Diffon 07-14-2021 Basophils (Bld) [#/Vol] 0.05 10*3/uL Normal 0.00-0.20 [facility] [employer] Comment on above: Performed By: #### F E Prof, TSH, CBCAD, FERR #### [facility] [address] [place], [place] [id number] Basophils/100 WBC (Bld) 0.6 % Normal [facility] [employer] Comment on above: Performed By: #### F E Prof, TSH, CBCAD, FERR #### [facility] [address] [place], [place] [id number] Eosinophils (Bld) [#/Vol] 0.04 10*3/uL Normal 0.02-0.50 [facility] Comment on above: Performed By: #### F E Prof, TSH, CBCAD, FERR #### [facility] [address] [place], [place] [id number] Eosinophils/100 WBC (Bld) 0.5 % Normal [facility] Comment on above: Performed By: #### F E Prof, TSH, CBCAD, FERR #### [facility] [address] [place], [place] [id number] Erythrocyte distribution width (RBC) [Ratio] 14.4 % Normal 11.0-15.0 [facility] Comment on above: Performed By: #### F E Prof, TSH, CBCAD, FERR #### [facility] [address] [place], [place] [id number] Hematocrit (Bld) [Volume fraction] 49.0 % High 35.0-47.0 [facility] Comment on above: Performed By: #### F E Prof, TSH, CBCAD, FERR #### [facility] [address] [place], [place] [id number] Hemoglobin (Bld) [Mass/Vol] 16.8 g/dL High 11.6-15.5 [facility] Comment on above: Performed By: #### F E Prof, TSH, CBCAD, FERR #### [facility] [address] [place], [place] [id number] Lymphocytes (Bld) [#/Vol] 2.9 10*3/uL Normal 0.9-3.9 [facility] Comment on above: Performed By: #### F E Prof, TSH, CBCAD, FERR #### [facility] [address] [place], [place] [id number] Lymphocytes/100 WBC (Bld) 35.7 % Normal [facility] Comment on above: Performed By: #### F E Prof, TSH, CBCAD, FERR #### [facility] [address] [place], [place] [id number] MCH (RBC) [Entitic mass] 32.2 pg Normal 27.0-33.0 [facility] Comment on above: Performed By: #### F E Prof, TSH, CBCAD, FERR #### [facility] [address] [place], [place] [id number] MCHC (RBC) [Mass/Vol] 34.3 g/dL Normal 32.0-36.0 [facility] Comment on above: Performed By: #### F E Prof, TSH, CBCAD, FERR #### [facility] [address] [place], [place] [id number] MCV (RBC) [Entitic vol] 94 fL Normal 80-100 [facility] Comment on above: Performed By: #### F E Prof, TSH, CBCAD, FERR #### [facility] [address] [place], [place] [id number] Monocytes (Bld) [#/Vol] 0.5 10*3/uL Normal 0.2-0.9 [facility] Comment on above: Performed By: #### F E Prof, TSH, CBCAD, FERR #### [facility] [address] [place], [place] [id number] Monocytes/100 WBC (Bld) 5.9 % Normal [facility] Comment on above: Performed By: #### F E Prof, TSH, CBCAD, FERR #### [facility] [address] [place], [place] [id number] Neutrophils (Bld) [#/Vol] 4.6 10*3/uL Normal 1.5-7.8 [facility] Comment on above: Performed By: #### F E Prof, TSH, CBCAD, FERR #### [facility] [address] [place], [place] [id number] Neutrophils/100 WBC (Bld) 56.8 % Normal [facility] Comment on above: Performed By: #### F E Prof, TSH, CBCAD, FERR #### [facility] [address] [place], [place] [id number] Platelet mean volume (Bld) [Entitic vol] 12.10 fL Normal 7.50-12.50 [facility] Comment on above: Performed By: #### F E Prof, TSH, CBCAD, FERR #### [facility] [address] [place], [place] [id number] Platelets (Bld) [#/Vol] 166 10*3/uL Normal 140-400 [facility] Comment on above: Performed By: #### F E Prof, TSH, CBCAD, FERR #### [facility] [address] [place], [place] [id number] RBC (Bld) [#/Vol] 5.22 10*6/uL High 3.90-5.20 [facility] Comment on above: Performed By: #### F E Prof, TSH, CBCAD, FERR #### [facility] [address] [place], [place] [id number] RDW-SD 49.0 fL Normal 37.0-50.0 [facility] Comment on above: Performed By: #### F E Prof, TSH, CBCAD, FERR #### [facility] [address] [place], [place] [id number] WBC (Bld) [#/Vol] 8.1 10*3/uL Normal 3.8-11.0 [facility] Comment on above: Performed By: #### F E Prof, TSH, CBCAD, FERR #### [facility] [address] [place], [place] [id number] Ferritinon 07-14-2021 FERR 36.8 ng/mL Normal 15.0-150.0 [facility] Comment on above: Performed By: #### F E Prof, TSH, CBCAD, FERR #### [facility] [address] [place], [place] [id number] Iron Profileon 07-14-2021 %FESAT 21 % Normal 11-50 [facility] Comment on above: Performed By: #### F E Prof, TSH, CBCAD, FERR #### [facility] [address] [place], [place] [id number] FE 67 ug/dL Normal 40-190 [facility] Comment on above: Result Comment: Refe rence range change 02/09/2017. Prior reference range F 37-145 ug/dL, M 59-158 ug/dL. Performed By: #### F E Prof, TSH, CBCAD, FERR #### [facility] [address] [place], [place] [id number] TIBC 316 ug/dL Normal 250-450 [facility] Comment on above: Performed By: #### F E Prof, TSH, CBCAD, FERR #### [facility] [address] [place], [place] [id number] UIBC 249 ug/dL Normal 112-347 [facility] Comment on above: Performed By: #### F E Prof, TSH, CBCAD, FERR #### [facility] [address] [place], [place] [id number] TSHon 07-14-2021 TSH 1.430 uIU/mL Normal 0.400-4.500 [facility] [employer] Comment on above: Performed By: #### F E Prof, TSH, CBCAD, FERR #### [facility] [address] [place], [place] [id number] Vitamin B12on 07-14-2021 Cobalamin (Vitamin B12) [Mass/Vol] 216 pg/mL Normal 211-946 [facility] Comment on above: Performed By: #### B 12 #### [facility] [address] [place], [place] [id number] Comprehensive Metabolic Pane gaurav 02-28-2021 Albumin [Mass/Vol] 4.4 g/dL Normal 3.6-5.1 [facility] Comment on above: Performed By: #### L IPD, CMP #### [facility] [address] [place], [place] [id number] Albumin/Globulin [Mass ratio] 1.7 {ratio} Normal 1.0-2.5 [facility] Comment on above: Performed By: #### L IPD, CMP #### [facility] [address] [place], [place] [id number] ALP [Catalytic activity/Vol] 159 U/L High 35-119 [facility] Comment on above: Performed By: #### L IPD, CMP #### [facility] [address] [place], [place] [id number] ALT [Catalytic activity/Vol] 6 U/L Normal 6-33 [facility] Comment on above: Result Comment: 02/23 Female reference range changed. Performed By: #### L IPD, CMP #### [facility] [address] [place], [place] [id number] Anion gap [Moles/Vol] 19 mmol/L Normal 12-20 [facility] Comment on above: Result Comment: Effe ctive 03/31/2019 reference range changed. Performed By: #### L IPD, CMP #### [facility] [address] [place], [place] [id number] AST [Catalytic activity/Vol] 13 U/L Normal 9-34 [facility] Comment on above: Performed By: #### L IPD, CMP #### [facility] [address] [place], [place] [id number] BUN/CREA 21 Ratio Normal 6-22 [facility] Comment on above: Performed By: #### L IPD, CMP #### [facility] [address] [place], [place] [id number] Calcium [Mass/Vol] 9.7 mg/dL Normal 8.6-10.2 [facility] Comment on above: Performed By: #### L IPD, CMP #### [facility] [address] [place], [place] [id number] Chloride [Moles/Vol] 103 mmol/L Normal 98-107 [facility] Comment on above: Performed By: #### L IPD, CMP #### [facility] [address] [place], [place] [id number] CO2 [Moles/Vol] 22 mmol/L Normal 20-31 [facility] Comment on above: Performed By: #### L IPD, CMP #### [facility] [address] [place], [place] [id number] Creatinine [Mass/Vol] 0.6 mg/dL Normal 0.6-1.4 [facility] Comment on above: Performed By: #### L IPD, CMP #### [facility] [address] [place], [place] [id number] eGFRAA 113 mL/min/1.73m2 Normal >60 [facility] Comment on above: Performed By: #### L IPD, CMP #### [facility] [address] [place], [place] [id number] eGFRNAA 93 mL/min/1.73m2 Normal >60 [facility] Comment on above: Performed By: #### L IPD, CMP #### [facility] [address] [place], [place] [id number] Globulin (S) [Mass/Vol] 2.6 g/dL Normal 1.9-3.7 [facility] [employer] Comment on above: Performed By: #### L IPD, CMP #### [facility] [address] [place], [place] [id number] Glucose [Mass/Vol] 102 mg/dL High 65-99 [facility] [employer] Comment on above: Result Comment: For FASTING Glucose --- ADA reference ranges: Normal 65-99 mg/dl Prediabetes 100-125 Diabetes >/= 126 Performed By: #### L IPD, CMP #### [facility] [address] [place], [place] [id number] Potassium [Moles/Vol] 4.2 mmol/L Normal 3.5-5.5 [facility] [employer] Comment on above: Performed By: #### L IPD, CMP #### [facility] [address] [place], [place] [id number] Protein [Mass/Vol] 7.0 g/dL Normal 6.1-8.1 [facility] [employer] Comment on above: Performed By: #### L IPD, CMP #### [facility] [address] [place], [place] [id number] Sodium [Moles/Vol] 140 mmol/L Normal 135-146 [facility] [employer] Comment on above: Performed By: #### L IPD, CMP #### [facility] [address] [place], [place] [id number] TBIL <0.3 Normal [facility] Comment on above: Performed By: #### L IPD, CMP #### [facility] [address] [place], [place] [id number] Urea nitrogen [Mass/Vol] 13 mg/dL Normal 7-25 [facility] [employer] Comment on above: Performed By: #### L IPD, CMP #### [facility] [address] [place], [place] [id number] Lipid Panelon 02-28-2021 Cholesterol [Mass/Vol] 166 mg/dL Normal 125-200 [facility] [employer] Comment on above: Result Comment: Low risk < 200mg/dL Borderline risk 201-239 mg/dl High risk > or equal to 240 Performed By: #### L IPD, CMP #### [facility] [address] [place], [place] [id number] Cholesterol in HDL [Mass/Vol] 54 mg/dL Normal >40 [facility] [employer] Comment on above: Result Comment: High Cardiovascular Risk HDL <40 mg/dL Low Cardiovascular Risk HDL > or equal to 60 mg/dl Performed By: #### L IPD, CMP #### [facility] [address] [place], [place] [id number] Cholesterol in LDL [Mass/Vol] 87 mg/dL Normal [facility] Comment on above: Result Comment: LDL ATP III CLASSIFICATION LDL less than 100 mg/dl Optimal LDL 100-129 mg/dl Near or above optimal LDL 130-159 Borderline high LDL 160-189 High LDL greater than 189 mg/dl Very High Performed By: #### L IPD, CMP #### [facility] [address] [place], [place] [id number] Cholesterol in VLDL [Mass/Vol] 25 mg/dL Normal [facility] [employer] Comment on above: Performed By: #### L IPD, CMP #### [facility] [address] [place], [place] [id number] Cholesterol.total/C holesterol in HDL [Mass ratio] 3 {ratio} Normal [facility] Comment on above: Performed By: #### L IPD, CMP #### [facility] [address] [place], [place] [id number] Triglyceride [Mass/Vol] 126 mg/dL Normal 30-150 [facility] [employer] Comment on above: Result Comment: TRIG ATPIII CLASSIFICATIONS TRIG less than 150 mg/dl Normal TRIG 150-199 mg/dl Borderline High TRIG 200-500 mg/dl High TRIG greather than 500 mg/dl Very High Performed By: #### L IPD, CMP #### [facility] [address] [place], [place] [id number] Vital Signs Date Time Vital Sign Value Performing Clinician Facility 07-21-2023 11:34-0400 Body temperature 99 [degF] Christina Webster MD Work Phone: [facility] 07-21-2023 11:34-0400 Diastolic blood pressure 56 mm[Hg] [facility] 07-21-2023 11:34-0400 Heart rate 68 /min Christian Webster [facility] 07-21-2023 11:34-0400 Respiratory rate 16 /min Christian Webster MD [facility] 07-21-2023 11:34-0400 SaO2% (BldA) [Mass fraction] 95 % Christian Webster MD [facility] 07-21-2023 11:34-0400 Systolic blood pressure 115 mm[Hg] Christian Webster MD [facility] 07-20-2023 09:39-0400 Body height 160 cm Christian Webster MD [facility] 07-20-2023 09:39-0400 Body mass index (BMI) [Ratio] 22.72 kg/m2 Christian Webster MD [facility] 07-20-2023 09:39-0400 Body weight 58.15 kg Christian Webster MD Work Phone: [facility] 07-16-2023 11:22-0400 Body height 160.02 cm JOSHUA Nicolas Work Phone: [facility] 07-16-2023 11:22-0400 Body mass index (BMI) [Ratio] 22.4 kg/m2 [place] Work Phone: [facility] 07-16-2023 11:22-0400 Body temperature 96.7 [degF] II [place] Work Phone: [facility] 07-16-2023 11:22-0400 Body weight 57.6 kg JOSHUA Nicolas Work Phone: [facility] 07-16-2023 11:22-0400 Diastolic blood pressure 50 mm[Hg] II [place] Work Phone: [facility] 07-16-2023 11:22-0400 Heart rate 63 /min II [place] Work Phone: [facility] 07-16-2023 11:22-0400 SaO2% (BldA) [Mass fraction] 97 % II [place] Work Phone: [facility] 07-16-2023 11:22-0400 Systolic blood pressure 92 mm[Hg] II [place] Work Phone: [facility] 06-25-2023 10:52-0400 Body height 160.02 cm [facility] 06-25-2023 10:52-0400 Body mass index (BMI) [Ratio] 26 kg/m2 [facility] 06-25-2023 10:52-0400 Body temperature 96.6 [degF] [facility] 06-25-2023 10:52-0400 Body weight 66.67 kg [facility] 06-25-2023 10:52-0400 Diastolic blood pressure 60 mm[Hg] [facility] 06-25-2023 10:52-0400 Heart rate 67 /min [facility] 06-25-2023 10:52-0400 SaO2% (BldA) [Mass fraction] 93 % [facility] 06-25-2023 10:52-0400 Systolic blood pressure 128 mm[Hg] [facility] 05-24-2023 13:10-0500 Body height 160 cm Sta 2 [facility] [place] 05-24-2023 13:10-0500 Body mass index (BMI) [Ratio] 22.71 kg/m2 Sta 2 [facility] [place] 05-24-2023 13:10-0500 Body temperature 97.81 [degF] Sta 2 [facility] [place] 05-24-2023 13:10-0500 Body weight 58.15 kg Sta 2 [facility] [place] 05-24-2023 13:10-0500 Diastolic blood pressure 43 mm[Hg] Sta 2 [facility] 05-24-2023 13:10-0500 Heart rate 80 /min Sta 2 [facility] [place] 05-24-2023 13:10-0500 Respiratory rate 16 /min Sta 2 [facility] 05-24-2023 13:10-0500 SaO2% (BldA) [Mass fraction] 93 % Sta 2 [facility] 05-24-2023 13:10-0500 Systolic blood pressure 98 mm[Hg] Sta 2 [facility] Encounters Encounter Date Encounter Type Care Provider Facility Start: 11-01-2023 End: 11-01-2023 ambulatory SUNSHINE CHOI Not Available Start: 10-08-2023 End: 10-08-2023 ambulatory MATI WHITE Not Available Start: 09-12-2023 End: 09-12-2023 ambulatory VILLA NICOLAS Not Available Start: 09-05-2023 End: 09-05-2023 ambulatory VILLA NICOLAS Not Available Start: 08-29-2023 End: 08-29-2023 ambulatory VILLA NICOLAS Not Available Start: 08-28-2023 End: 08-28-2023 [facility] Start: 08-16-2023 End: 08-16-2023 ambulatory SUNSHINE CHOI Not Available Start: 08-14-2023 End: 08-14-2023 ambulatory JAMIA FUNEZ Not Available Start: 07-30-2023 Evaluation and manag ement of inpatient [facility] Start: 07-27-2023 Evaluation and manag ement of inpatient [facility] Start: 07-26-2023 Evaluation and manag ement of inpatient [facility] Start: 07-26-2023 End: 07-31-2023 Evaluation and management of inpatient [facility] Start: 07-20-2023 End: 07-21-2023 ambulatory CHRISTIAN WEBSTER [facility] Start: 07-20-2023 End: 07-21-2023 Subsequent hospital visit by physician Christian Webster MD Work Phone: [facility] Start: 07-18-2023 End: 07-18-2023 ambulatory CRYSTAL Sylvain DUNLAP Not Available Start: 07-16-2023 End: 07-16-2023 ambulatory II Villa Nicolas Work Phone: [facility] Work Phone: Start: 07-16-2023 End: 07-16-2023 Patient encounter procedure II Villa Nicolas Work Phone: Count Includes [facility] Physician [facility] Vascular Surgery Work Phone: Start: 07-06-2023 End: 07-06-2023 ambulatory Aron Rain Facility:[facility] Start: 07-06-2023 End: 07-06-2023 ambulatory II Villa Nicolas Work Phone: [facility] Work Phone: Start: 07-06-2023 End: 07-06-2023 Patient encounter procedure II Villa Nicolas Work Phone: [facility] [place] Work Phone: Start: 06-27-2023 End: 06-27-2023 ambulatory TIKA ARGUELLES Not Available Start: 06-25-2023 End: 06-25-2023 ambulatory [facility] Work Phone: Start: 06-25-2023 End: 06-25-2023 Patient encounter procedure [facility] Vascular Surgery Work Phone: Start: 06-06-2023 End: 06-06-2023 ambulatory TIKA ARGUELLES Not Available Start: 05-30-2023 End: 05-30-2023 ambulatory ZOË BAUMAN Not Available Start: 05-25-2023 End: 05-25-2023 ambulatory DIONE CUEVAS [facility] Start: 05-24-2023 End: 05-29-2023 ambulatory [facility] Start: 05-24-2023 End: 05-28-2023 Subsequent hospital visit by physician Sta Pat Rm 2 [facility] Start: 05-07-2023 Refill Kae Barone [facility]ANDRE [facility] Comment on above: Intervertebral disc disorder of lumbar region with myelopathy Start: 04-23-2023 End: 04-23-2023 ambulatory VILLA NICOLAS Not Available Start: 04-23-2023 Patient encounter status Kae alfaro DANDRE [facility] Start: 04-19-2023 End: 04-19-2023 ambulatory DIONE [facility] Start: 04-05-2023 End: 04-05-2023 Subsequent hospital visit by physician Sta Pat Rm 1 [facility] Comment on above: Canceled (Case cance lled) Start: 04-04-2023 Evaluation and manag ement of inpatient AB [facility] Start: 04-04-2023 Evaluation and manag ement of inpatient SELENE [facility] Start: 04-03-2023 End: 04-05-2023 Evaluation and management of inpatient ALE [facility] Start: 03-27-2023 End: 03-27-2023 Subsequent hospital visit by physician Sta Pat Rm 2 [facility] Comment on above: Canceled (Patient) Start: 03-15-2023 End: 03-15-2023 ambulatory VILLA NICOLAS Not Available Start: 02-02-2023 End: 02-06-2023 ambulatory [facility] Start: 10-31-2022 End: 10-31-2022 ambulatory [facility] Start: 10-31-2022 End: 10-31-2022 Encounter for preprocedural cardiovascular examination [facility] Start: 10-26-2022 End: 10-31-2022 ambulatory VILLA NICOLAS [facility] Start: 06-27-2022 End: 06-28-2022 ambulatory YASMEEN SINGH Facility:[facility] Start: 01-20-2022 End: 01-21-2022 ambulatory MOHAMED CHANTEL Facility:[facility] Start: 01-16-2022 End: 10-25-2022 ambulatory MOHAMED CHANTEL Facility:[facility] Start: 01-09-2022 End: 01-09-2022 ambulatory VILLA NICOLAS Facility:[facility] Start: 01-04-2022 End: 01-05-2022 ambulatory Ambrose Rodriguez Facility:[facility] Start: 12-30-2021 End: 12-31-2021 ambulatory VILLA NICOLAS Facility:[facility] Start: 11-25-2021 End: 11-26-[address] VILLA NICOLAS Facility: Start: 10-02-2016 End: 10-03-2016 Ambulatory DEFAULT PHYSICIAN Facility:[facility] Procedures Date Procedure Procedure Detail Performing [...] A1c measurement A1C test (Diabetic or Prediabetic) [facility] Start: 03-15-2024 Screening for malign ant neoplasm of colon Colorectal Cancer Screening [facility] Comment on above: Postponed from 12/08 (Patient Refused) Start: 03-04-2024 Screening for malign ant neoplasm of breast Mammogram [facility] Healthcare Comment on above: Postponed from 12/08 (Patient Refused) Start: 10-25-2023 Influenza vaccination Flu vacc ine (Season Ended) DONTE MORAES [facility] Start: 09-23-2023 Influenza vaccination Influenza Vacc ine (#1) [facility] Healthcare Comment on above: Postponed from 11/24 (Patient Refused) Start: 08-22-2023 End: 08-22-2023 Patient encounter procedure 08/22/2023 11:30 AM EDT Office Visit [address], [facility] [address] [place] [address] Christian Webster MD [address] [place] [id number] 4 week 1st post op-RE-DO L3-4 LUMBAR LAMINECTOMY [ [facility] Comment on above: 4 week 1st post op-R E-DO L3-4 LUMBAR LAMINECTOMY [ Start: 07-06-2023 Doppler ultrasonogra phy of bilateral carotid arteries US carotid doppler BI [facility] Start: 07-06-2023 Pulse volume recorde r plethysmography [facility] Start: 07-06-2023 US.doppler Carotid arteries - bilateral [facility] Start: 07-04-2023 End: 07-04-2023 Patient encounter procedure 07/04/2023 1:50 PM EDT Office Visit [facility] [address] [place] [address], [address] [place] [address] Christian Webster MD [address] [place] [address] [address] [place] [address] 4 week 1st post op-Redo L3-4 Lami [facility] [place], [facility] Comment on above: 4 week 1st post op-R jenni L3-4 Lami Start: 06-25-2023 End: 06-25-2023 Patient encounter procedure 06/25/2023 2:00 PM EDT Office Visit [facility] [address] [place] [address] Villa Nicolas MD [address] [facility] [address] [place] [address] [facility] Start: 06-14-2023 Hemoglobin A1c measurement Diabetes: Hemoglobin A1C [facility] Start: 06-07-2023 End: 06-07-2023 Admission to same day surgery center 06/07/2023 9:55 AM EDT - 06/07/2023 12:00 [place] [address] [place] [address] [id number] Christian Webster MD [address] [address] RE-DO L3-4 LUMBAR LAMINECTOMY [facility] Comment on above: RE-DO L3-4 LUMBAR LA MINECTOMY Start: 06-07-2023 End: 06-07-2023 Laminectomy w/o ffd > 2 vert seg lumbar LUMBAR LAMINECTOMY POSTERIOR Spinal stenosis of lumbar region, unspecified whether neurogenic claudication present 06/07/2023 9:[address] [facility] Start: 06-07-2023 Subsequent hospital visit by physician 06/07/2023 9:55 [place] [address] [place] [address] [id number] Christian Webster MD [address] [facility] [address] [place] [address] [facility] [place] Start: 05-30-2023 End: 05-30-2023 Patient encounter procedure 05/30/2023 2:20 PM EST Office Visit [facility] [address] [place] [id number] Zoë Bauman MD [address] [place] [address] [facility] Start: 05-23-2023 End: 05-23-2023 Clinical Support 05/23/2023 11:00 AM EST Clinical Support [facility] [address] [place] [address] Crystal Dunlap, [facility] [address] [facility] [place] [address] [facility] Start: 05-16-2023 End: 05-16-2023 Patient encounter procedure 05/16/2023 10:30 AM EST Office Visit [facility] [address] [place] [address], [address] [place] [address] Christian Webster MD [address] [place] [address] [address] [place] [address] 4 week 1st post op-Redo L3-4 Lami [facility] Comment on above: 4 week 1st post op-R jenni L3-4 [facility] Start: 04-20-2023 End: 04-20-2023 Admission to same day surgery center 04/20/2023 10:00 AM EST - 04/20/2023 11:55 AM EST Surgery [facility] [address] [place] [address] Christian Webster MD [address] [place] [address] [address] [address] [place], [place] [id number] REDO L3-4 LUMBAR LAMINECTOMY POSTERIOR [facility] Comment on above: REDO L3-4 LUMBAR KNOTT INECTOMY POSTERIOR Start: 04-20-2023 End: 04-20-2023 Knott facetectomy & foramotomy 1 segment lumbar LUMBAR LAMINECTOMY POSTERIOR Spinal stenosis of lumbar region, unspecified whether neurogenic claudication present 04/20/2023 10:00 AM [facility] Start: 04-20-2023 Subsequent hospital visit by physician 04/20/2023 10:00 AM [facility] Hospital Encounter [facility] [place] [address] [place] [address] Christian Webster MD [address] [address] [facility] [place] Start: 04-05-2023 Subsequent hospital visit by physician 04/05/2023 1:00 PM [facility] Hospital Encounter [facility] PRE-ADMIT TESTING [address] [place] [address] [facility] Start: 02-19-2023 Annual Wellness Visi t (Medicare) Annual Wellness Visit (Medicare) [facility] Start: 01-26-2023 Hemoglobin A1c measurement A1C test (Diabetic or Prediabetic) [facility] Start: 12-09-2022 Screening for malign ant neoplasm of colon FIT-DNA [facility] Start: 11-24-2022 COVID-19 Vaccine ( season) COVID-19 Vaccine ( season) [facility] Start: 10-24-2022 Influenza vaccination Flu vaccine (# 1) [facility] Start: 09-29-2022 Medicare Annual Well ness (AWV) Medicare Annual Wellness (AWV) [facility] Start: 01-14-2020 Shingles vaccine (2 of 2) Conklin gles vaccine (2 of 2) [facility] Start: 06-27-2019 Urine screening for protein Diabetes: Urine Protein Screening [facility] Start: 08-30-2018 Pneumococcal 65+ yea rs Vaccine (3 - PPSV23 or PCV20) Pneumococcal 65+ years Vaccine (3 - PPSV23 or PCV20) [facility] Start: 08-30-2018 Pneumococcal 65+ yea rs Vaccine (3 of 3 - PPSV23 or PCV20) Pneumococcal 65+ years Vaccine (3 of 3 - PPSV23 or PCV20) [facility] Start: 2010 Respiratory Syncytia l Virus (RSV) or age 60 yrs+ (1 - 1-dose 60+ series) Respiratory Syncytial Virus (RSV) or age 60 yrs+ (1 - 1-dose 60+ series) [facility] Start: 2000 Screening for malign ant neoplasm of breast Breast cancer screen [facility] Start: 12-09-1995 Screening for malign ant neoplasm of colon [facility] Start: 1969 DTaP/Tdap/Td vaccine (1 - Tdap) DTaP/Tdap/Td vaccine (1 - Tdap) [facility] Start: 1968 Hepatitis C screening Hepatitis C sc reen [facility] Start: 1962 Depression Screen Depression Screen [facility] Start: 1960 Lipid panel Lipids [facility] Start: 1950 Screening for malign ant neoplasm of colon [facility] End: 07-20-2023 Glucose [Mass/volume] in Serum or Plasma POCT Glucose Point of Care Testing STAT One Time for 1 Occurrences starting 07/20/2023 until 07/20/2023 [facility] Work Phone: Comment on above: One Time for 1 Occur rences starting 07/20/2023 until 07/20/2023 Oxygen therapy [[facility] Data Set] Initiate Oxygen Therapy Protocol Respiratory Care Routine As Needed until discontinued starting 07/20/2023 [facility] Comment on above: As Needed until disc ontinued starting 07/20/2023 Spirometry panel Incentive allen metry Respiratory Care Routine Every 2hr while awake until discontinued starting 07/20/2023 [facility] Comment on above: Every 2hr while awak e until discontinued starting 07/20/2023 Immunizations Immunization Date Immunization Notes Care Provider Fa cility 02-02-2022 influenza, high dose seasonal, preservative-free Kae aBrone MA [facility] are 02-02-2022 influenza virus vacc ine, unspecified formulation Kae Barone MA [facility] 01-27-2022 SARS-CoV-2, Unspecified Kae sheehan MA [facility] 02-23-2021 influenza, high dose seasonal, preservative-free Kae Barone MA [facility] are 12-03-2019 Influenza, High-dose Seasonal, Quadrivalent, Preservative Free Kae Barone MA [facility] 11-19-2019 zoster vaccine recombinant Kae lyons MA [facility] 12-20-2017 Influenza, High-dose Seasonal, Quadrivalent, Preservative Free Kae Barone MA [facility] 08-30-2017 pneumococcal conjuga te vaccine, 13 valent Kae Barone MA [facility] 12-24-2014 seasonal influenza, intradermal, preservative free Kae Barone MA [facility] 01-26-2014 influenza, seasonal, injectable Kae Barone MA [facility] 02-28-2013 seasonal influenza, intradermal, preservative free Kae Barone MA [facility] 03-26-2011 pneumococcal polysac charide vaccine, 23 valent Kae Barone MA [facility] Payers Date Payer Category Payer Self-pay [id number] 2017 Medicare MEDICARE MEDICAR E PART B [id number] 2017-Present [address] [address] [place] [address] Medicare [id number] 2017 Medicaid MEDICAID [facility] [id number] 2017-Present [phone] [address] [place] [address] Medicaid [id number] 1959 Medicaid [id number] 1959 Medicare [id number] 1959 Medicare [id number] 1959 Self-pay [id number] 1950 Unknown [id number] 2.16.840.1.676804.3.579.2. 1950 Unknown [id number] 2.16.840.1.407896.3.579.2.718 1950 Unknown [id number] 2.16.840.1.550547.3.579.2.8 1950 Unknown [id number] 2.16.840.1.344158.3.579.2.593 1950 Unknown [id number] 2.16.840.1.852071.3.579.2.593 1950 Unknown [id number] 2.16.840.1.022507.3.579.2.593 1950 Unknown [id number] 2.16.840.1.992200.3.579.2.593 1950 Unknown [id number] 2.16.840.1.161176.3.579.2.593 1950 Unknown [id number] 2.16.840.1.157693.3.579.2.177 1950 Unknown [id number] 2.16.840.1.466846.3.579.2.177 1950 Unknown [id number] 2.16.840.1.946193.3.579.2.177 1950 Unknown [id number] 2.16.840.1.470154.3.579.2.175 1950 Unknown [id number] 2.16.840.1.143084.3.579.2.1259 1950 Unknown [id number] 2.16.840.1.439047.3.579.2.1259 1950 Unknown [id number] 2.16.840.1.597063.3.579.2.1259 1950 Unknown [id number] 2.16.840.1.598315.3.579.2.1259 1950 Unknown [id number] 2.16.840.1.182025.3.579.2.1259 1950 Unknown [id number] 2.16.840.1.503211.3.579.2.1259 1950 Unknown [id number] 2.16.840.1.333673.3.579.2.1259 1950 Unknown [id number] 2.16.840.1.846317.3.579.2.9 1950 Unknown [id number] 2.16.840.1.405887.3.579.2.9 1950 Unknown [id number] 2.16.840.1.916769.3.579.2.9 1950 Unknown [id number] 2.16.840.1.277005.3.579.2.1259 1950 Unknown [id number] 2.16.840.1.781187.3.579.2.9 1950 Unknown [id number] 2.16.840.1.949255.3.579.2.1258 Unknown Unknown [id number] 2.16.840.1.839658.3.579.2.531 Social History Date Type Detail Facility Start: 10-26-2022 End: 07-20-2023 Tobacco smoking status WYIS Smokes tobacco daily Elli History of tobacco use Cigarette Smoker B ON [employer] Start: 10-26-2022 End: 07-20-2023 Cigarettes smoked current (pack per day) - Reported 0.5 Elli Start: 10-26-2022 End: 07-20-2023 Tobacco use and exposure Smokeless tobacco non-user Elli Start: 02-02-2023 End: 07-20-2023 Alcohol intake Ex-drinker (finding) Elli Start: 02-02-2023 End: 07-20-2023 Tobacco use panel Elli Start: 10-26-2022 Tobacco Comment Started smoking at age 16, quit at the age of 30 then started smoking again a little over a year ago (written 10/26/2022) Elli Start: 1950 Sex Assigned At Not on file Elli Start: 04-23-2023 Alcohol intake Lifetime non-drinker (finding) [facility] Start: 03-29-2023 Alcohol Comment caffeine intake : 2-3 cups per day coffee, soda [facility] Start: 06-25-2023 Tobacco smoking status NHIS Smoker (finding) [facility] Start: 1950 Sex Assigned At Female [facility] Has the electric, ga s, oil, or water company threatened to shut off services in your home in past 12Mo No Elli (I/We) worried wheth er (my/our) food would run out before (I/we) got money to buy more. Never true Elli In the past 12 month s, has lack of transportation kept you from medical appointments or from getting medications? No Elli Clinical Notes 01-09-2022 to 08-28-2023 Tamiko Toledo, RN - 07/21/2023 2:25 PM Tequila Erwin, PT - 07/21/2023 11:12 AM Merary García, OT - 07/21/2023 10:24 AM Barb Charles PA - 07/21/2023 8:16 AM EDTAttachments Note Date & Type Note Facility 08-28-2023 Note Cardiovascular Medic [facility] SUBJECTIVE Chief Complaint Patient presents with Coronary Artery Disease Congestive Heart Failure Hospital Follow-up NSTEMI Mirna Quezada is a 72 y.o. female here for hospital follow-up. HPI PMHx significant for CAD s/p CABG (ALMARAZ to LAD, SVG to D1, SVG to OM 2000), ICM, AV stenosis, COPD, HTN/HLD, and parkinson's disease She has been feelling well overall since she was discharged. We reviewed her recent admission course while at [facility]. Questions answered, we reviewed her medications and stressed importance of DAPT compliance. She states understanding. Denies c/o CP, dyspnea, orthopnea, PND, LE edema, dizziness/LH, palpitations, syncope. Discharge Summary Final Discharge Diagnosis: NSTEMI (non-ST elevated myocardial infarction) (CMS/HCC) Chronic systolic and diastolic congestive heart failure, NYHA class II Acute hypoxemic respiratory failure Community-acquired pneumonia Pressure ulcer, right buttock, stage I, present on admission. Type 2 diabetes mellitus Parkinson disease Admission Diagnosis: NSTEMI (non-ST elevated myocardial infarction) ([facility]/HCC) [I21.4] Hospital course: 72-year-old female with past medical history significant for CAD status post CABG in 2000, history of Parkinson disease, history of recent spinal fusion surgery. Patient presented to the hospital due to dizziness and not feeling well, she was initially evaluated at [facility] and was found to be hypoxic. Patient was requiring 3 L of oxygen and her CTA chest was concerning for bilateral pulmonary infiltrates. Workup also showed elevated troponins and a new drop in her ejection fraction to 40%. Patient was sent to [facility] so she can be evaluated by cardiology, her hospitalization course by problem was as follows: NSTEMI, Type I - status post coronary angiogram, PCI to mid RCA. - Continue with DAPT, beta-navedep and statin. Chronic systolic and diastolic heart failure NYHA IIC Farxiga was added on this admission. Patient was having borderline hypotension and Imdur was discontinued. 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 Carotid stenosis, bilateral Carpal tunnel syndrome, left Cervical myelopathy (CMS/HCC) Congenital spondylolisthesis Cigarette smoker Cigarette smoker two packs a day or less Chronic diastolic heart failure (CMS/HCC) Coronary artery disease Coronary [...] without complication (CMS/HCC) Undifferentiated inflammatory polyarthritis (CMS/HCC) Chronic systolic heart failure (CMS/HCC) Elevated troponin Acute hypoxic respiratory failure (CMS/HCC) Multifocal pneumonia NSTEMI (non-ST elevated myocardial infarction) (CMS/HCC) Past Medical History: Diagnosis Date Coronary artery disease Diabetes mellitus (CMS/HCC) GERD (gastroesophageal reflux disease) Heart valve disease Hyperlipidemia Primary cardiomyopathy (CMS/HCC) Family History Problem Relation Name Age of Onset Hypertension Mother ALS Father Social History Tobacco Use Smoking status: Every Day Packs/day: .5 Types: Cigarettes Smokeless to (more content not included)... [facility] 08-28-2023 Note Patient here for fol low up PCI mid RCA with Dr. Novak on 07/30/2023. She is feeling well s/p intervention. Denies chest pain, SOB, palpitations, and lightheadedness/syncope. She had labs 2 weeks ago. Review of Systems Musculoskeletal: Positive for arthritis, back pain, joint pain, muscle weakness, myalgias and neck pain. Neurological: Positive for weakness. All other systems reviewed and are negative. [facility] 07-31-2023 Note [facility] Inpat ient Progress Note REASON FOR CONSULT Reason for followup: NSTEMI SUBJECTIVE Interval History: Patient seen and examined at bedside. In NAD, up in chair. Resting comfortably. Denies SOB, CPOE or at rest, lightheadedness, palpitations. Reviewed findings to date. Discussed heart cath with stent, usual care of right femoral access site with written instructions to print with AVS. Telemetry: Sinus rhythm OBJECTIVE ALLERGIES Allergies Allergen Reactions Augmentin [Amoxicillin-Pot Clavulanate] CURRENT MEDS Your medication list START taking these medications Instructions Last Dose Given Next Dose Due dapagliflozin propanediol 10 mg Commonly known as: Farxiga Start taking on: August 01, 2023 Take 1 tablet (10 mg) by mouth in the morning for 95 doses. Do not start before August 01, 2023. lisinopril 5 mg tablet Take 1 tablet (5 mg) by mouth in the evening. metoprolol tartrate 25 mg tablet Commonly known as: Lopressor Take 0.5 tablets (12.5 mg) by mouth in the morning and at bedtime for 196 doses. nitroglycerin 0.4 mg SL tablet Commonly known as: Nitrostat Place 1 tablet (0.4 mg) under the tongue every 5 (five) minutes if needed for chest pain. CHANGE how you take these medications Instructions Last Dose Given Next Dose Due atorvastatin 40 mg tablet Commonly known as: Lipitor What changed: medication strength how much to take when to take this Take 1 tablet (40 mg) by mouth at bedtime for 96 doses. CONTINUE taking these medications Instructions Last Dose Given Next Dose Due aspirin 81 mg EC tablet carbidopa-levodopa 25-100 mg tablet Commonly known as: Sinemet citalopram 40 mg tablet Commonly known as: CeleXA clopidogrel 75 mg tablet Commonly known as: Plavix cyanocobalamin 1,000 mcg tablet Commonly known as: Vitamin B-12 HYDROcodone-acetaminophen 10-325 mg tablet Commonly known as: Wikieup metFORMIN XR 750 mg 24 hr tablet Commonly known as: Glucophage-XR oxybutynin XL 10 mg 24 hr tablet Commonly known as: Ditropan-XL pregabalin 150 mg capsule Commonly known as: Lyrica primidone 50 mg tablet Commonly known as: Mysoline rOPINIRole 0.25 mg tablet Commonly known as: Requip tiZANidine 4 mg tablet Commonly known as: Zanaflex STOP taking these medications isosorbide mononitrate ER 30 mg 24 hr tablet Commonly known as: Imdur Where to Get Your Medications These medications were sent to [facility] - [place], [place] - [address] [place], [place] [address] [place] [address] [address] [facility] [place] [address], [facility] [address] atorvastatin 40 mg tablet dapagliflozin propanediol 10 mg lisinopril 5 mg tablet metoprolol tartrate 25 mg tablet nitroglycerin 0.4 mg SL tablet Objective Patient Vitals for the past 24 hrs: BP Temp Temp src Pulse Resp SpO2 Weight 07/31/23 1200 109/59 -- -- 66 15 94 % -- 07/31/23 0931 116/78 -- -- 55 -- -- -- 07/31/23 0741 114/68 35.9 ???C (96.6 ???F) Temporal 55 17 96 % -- 07/31/23 0400 (!) 127/43 35.9 ???C (96.6 ???F) Temporal 51 15 94 % 58.1 kg (128 lb 1.4 oz) 07/31/23 0100 (!) 115/46 36.7 ???C (98 ???F) Temporal (!) 48 17 97 % -- 07/30/23 2056 153/66 -- -- 66 13 96 % -- 07/30/23 1930 118/90 -- -- 68 17 100 % -- 07/30/23 1913 94/56 36.7 ???C (98.1 ???F) Temporal 75 16 98 % -- BP 109/59 Pulse 66 Temp 35.9 ???C (96.6 ???F) (Temporal) Resp 15 Ht 1.6 m (5' 3 ) Wt 58.1 kg (128 lb 1.4 oz) SpO2 94% BMI 22.69 kg/m??? Wt Readings from Last 3 Encounters: 07/31/23 58.1 kg (128 lb 1.4 oz) 05/25/23 57.6 kg (127 lb) 04/19/23 58.1 kg (128 lb) General: Awake, alert, appropriate mood / affect, NAD Eyes: anicteric sclera. Non-injected conjunctiva. No xanthelasmas Neck: No elevated JVP. No carotid bruit Pulm: Breath sounds generally diminished to ascultation bilaterally with no wheeze, crackles or rhonchi Cards: HRRR, NL S1, S2. No S3 or S4 gallop. Murmur: ELVIA 2/6 at RUSB Abd: Soft, Nontender, physiologic bowel sounds are present Extr: Lower extremity edema: none. DP pulses present bilaterally Right groin arteriotomy site clean and dry, no hematoma or bruising, dressing removed and cleansed with alcohol, Band-Aid applied Skin: warm, dry, well perfused Neuro: A&Ox3, No gross deficits Relevant Lab Results: Lab Results Component Value Date NA 136 07/31/2023 K 4.3 07/31/2023 CL 106 07/31/2023 ANIONGAP 10 07/31/2023 BUN 22 07/31/2023 CREATININE 0.66 07/31/2023 CALCIUM 8.6 07/31/2023 MG 1.5 (L) 07/31/2023 PHOS 3.6 04/03/2023 Lab Results Component Value Date BILITOT 0.3 07/27/2023 BILIDIR 0.0 07/27/2023 ALKPHOS 113 (H) 07/27/2023 AST 23 07/27/2023 ALT 8 07/27/2023 PROT 5.8 (L) 07/27/2023 ALBUMIN 3.3 (L) 07/27/2023 Lab Results Component Value Date CHOLESTEROL 134 07/27/2023 TRIGLYCERIDES 120 07/27/2023 HDL 50 07/27/2023 LDL CALC 60 07/27/2023 Lab Results Component Value Date BNP 350 (H) 07/26/2023 No results (more content not included)... [facility] 07-31-2023 Note Hospital Medicine Discharge Summary Final Discharge Diagnosis: NSTEMI (non-ST elevated myocardial infarction) (CMS/HCC) Chronic systolic and diastolic congestive heart failure, NYHA class II Acute hypoxemic respiratory failure Community-acquired pneumonia Pressure ulcer, right buttock, stage I, present on admission. Type 2 diabetes mellitus Parkinson disease Admission Diagnosis: NSTEMI (non-ST elevated myocardial infarction) (CMS/HCC) [I21.4] Hospital course: 72-year-old female with past medical history significant for CAD status post CABG in 2000, history of Parkinson disease, history of recent spinal fusion surgery. Patient presented to the hospital due to dizziness and not feeling well, she was initially evaluated at [facility] and was found to be hypoxic. Patient was requiring 3 L of oxygen and her CTA chest was concerning for bilateral pulmonary infiltrates. Workup also showed elevated troponins and a new drop in her ejection fraction to 40%. Patient was sent to [facility] so she can be evaluated by cardiology, her hospitalization course by problem was as follows: NSTEMI, Type I - status post coronary angiogram, PCI to mid RCA. - Continue with DAPT, beta-navdeep and statin. Chronic systolic and diastolic heart failure NYHA IIC Farxiga was added on this admission. Patient was having borderline hypotension and Imdur was discontinued. Acute hypoxic Respiratory Failure due to PNA, resolved - Imaging: CTA chest showed mild bilateral pulmonary infiltrates - Patient presented with hypoxia Community-Acquired Pneumonia - Patient completed course of 5 days IV ceftriaxone Parkinson's Disease Continue sinemet Dear Dr. Fidencio MD, [place] is advised to follow up with you within 1-2 weeks. Follow-up with: Cardiology and CHF clinic Scheduled appointments: Future Appointments Date Time Provider Department Center 08/09/2023 1:40 PM Presley Wong NP [facility] Your medication list START taking these medications Instructions Last Dose Given Next Dose Due dapagliflozin propanediol 10 mg Commonly known as: Farxiga Start taking on: August 01, 2023 Take 1 tablet (10 mg) by mouth in the morning for 95 doses. Do not start before August 01, 2023. lisinopril 5 mg tablet Take 1 tablet (5 mg) by mouth in the evening. metoprolol tartrate 25 mg tablet Commonly known as: Lopressor Take 0.5 tablets (12.5 mg) by mouth in the morning and at bedtime for 196 doses. nitroglycerin 0.4 mg SL tablet Commonly known as: Nitrostat Place 1 tablet (0.4 mg) under the tongue every 5 (five) minutes if needed for chest pain. CHANGE how you take these medications Instructions Last Dose Given Next Dose Due atorvastatin 40 mg tablet Commonly known as: Lipitor What changed: medication strength how much to take when to take this Take 1 tablet (40 mg) by mouth at bedtime for 96 doses. CONTINUE taking these medications Instructions Last Dose Given Next Dose Due aspirin 81 mg EC tablet carbidopa-levodopa 25-100 mg tablet Commonly known as: Sinemet citalopram 40 mg tablet Commonly known as: CeleXA clopidogrel 75 mg tablet Commonly known as: Plavix cyanocobalamin 1,000 mcg tablet Commonly known as: Vitamin B-12 HYDROcodone-acetaminophen 10-325 mg tablet Commonly known as: Wikieup metFORMIN XR 750 mg 24 hr tablet Commonly known as: Glucophage-XR oxybutynin XL 10 mg 24 hr tablet Commonly known as: Ditropan-XL pregabalin 150 mg capsule Commonly known as: Lyrica primidone 50 mg tablet Commonly known as: Mysoline rOPINIRole 0.25 mg tablet Commonly known as: Requip tiZANidine 4 mg tablet Commonly known as: Zanaflex STOP taking these medications isosorbide mononitrate ER 30 mg 24 hr tablet Commonly known as: Imdur Where to Get Your Medications These medications were sent to [facility] - [place], [place] - [address] [place] [address] [facility] [address] [place] [address], [facility] [address] atorvastatin 40 mg tablet dapagliflozin propanediol 10 mg lisinopril 5 mg tablet metoprolol tartrate 25 mg tablet nitroglycerin 0.4 mg SL tablet Mirna is allergic to augmentin [amoxicillin-pot clavulanate]. Disposition: Home-Health Care [facility] [place] () Discharge Condition: Stable Code Status: Full Code Diagnostic Results Hematology: Results from last 7 days Lab Units 07/31/23 0455 07/30/23 0504 WBC AUTO 10*3/uL 8.83 8.50 HEMOGLOBIN g/dL 13.7 14.2 HEMATOCRIT % 40.5 42.9 MCV fL 96.2 97.3 PLATELETS AUTO 10*3/uL 209 224 Chemistry: Results from last 7 days Lab Units 07/31/23 0455 07/30/23 0504 07/29/23 0549 SODIUM mmol/L 136 139 138 POTASSIUM mmol/L 4.3 4.7 3.9 CHLORIDE mmol/L 106 105 105 CO2 mmol/L 24 28 26 BUN mg/dL 22 28* 21 CREATININE mg/dL 0.66 0.97 0.71 GLUCOSE mg/dL 131* 141* 136* MAGNESIUM mg/dL 1.5* -- -- CALCIUM mg/dL 8.6 9.0 8.8 Results from last 7 days Lab Units 07/26 (more content not included)... [facility] 07-31-2023 Note [address]; aligner typewriter met with Patient in room; Patient in bedside recliner, legs elevated; Patient alert and oriented x4; Patient confirmed has had HHC in the past and prefers to have services with [facility]; aligner typewriter sent referral to [facility], need to confirm if they are able accept. Transportation needing arranged 1105 [facility] can accept for [facility]; [facility] added to AVS Transportation arrangements in process 1157 Discharge Transportation Packet placed with Patient's physical chart Transportation scheduled for 1pm pickup No report to call (dc to home) bedside RN, Lead RN, Sid notified [facility] 07-31-2023 Note Occupational Therapy Occupational Therapy Treatment Patient Name: Mirna Quezada : 1950 Today's Date: 07/31/2023 Time In: 1004 Time Out: 1017 Problem List Patient Active Problem List Diagnosis Abnormal gait COPD (chronic obstructive pulmonary disease) (CMS/HCC) 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/HCC) 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 Carotid stenosis, bilateral Carpal tunnel syndrome, left Cervical myelopathy (CMS/HCC) Congenital spondylolisthesis Cigarette smoker Cigarette smoker two packs a day or less Chronic diastolic heart failure (CMS/HCC) Coronary artery disease Coronary [...] without complication (CMS/HCC) Undifferentiated inflammatory polyarthritis (CMS/HCC) Elevated troponin Acute hypoxic respiratory failure (CMS/HCC) Multifocal pneumonia NSTEMI (non-ST elevated myocardial infarction) (CMS/HCC) Pain: Pain Assessment Pain Score: 5 - Moderate pain (chronic LBP) Objective General Visit Information: OT Last Visit OT Received On: 07/31/23 General Subjective: reports she is feeling much better and ready to go home Precautions Precautions Medical Precautions: fall risk, no bending lifting or twisting, log roll (low back sx 07/19/23) Cognition Cognition Overall Cognitive Status: Within Functional Limits General Assessment General Assessment Hearing: (wfl) Tone: Tremors (PD) Hand Dominance: Right e Static Standing Balance Static Standing Balance Static Standing-Level of Assistance: Close supervision Transfers Transfers Transfer: (reports she already completed bath/dress this morning. in chair upon arrival, SBA with RW. sit to stand, 4o feet X3 and return to chair) Activity Tolerance Activity Tolerance Endurance: Stage II Outcome Assessments AM-PAC 6 Clicks Putting on and taking off regular lower body clothing?: A Little (Min Assist/Contact Guard/Supervision) Bathing(Including washing,rinsing,drying)?: A Little (Min Assist/Contact Guard/Supervision) Toileting, which includes using the toilet,bedpan,or urinal?: A Little (Min Assist/Contact Guard/Supervision) Putting on and taking off regular upper body clothing?: None (Independent) Taking care of personal grooming such as brushing teeth?: None (Independent) Eating meals?: None (Independent) Total Score OT [facility]: 21 Assessment/Plan OT Assessment OT Impairments: Decreased ADL status, Decreased endurance, Decreased functional mobility OT Assessment/MICHAEL Summary: (needs skilled OT due to weakness and fatigue) Prognosis: Good Evaluation/Treatment Tolerance: Patient limited by fatigue Medical Staff Made Aware: Yes OT Education/Comments: during adl transferand prep: discussed general home safety, ws/ec and pacing with good verbal return Plan Level of assist: 1 assist Treatment Interventions: ADL retraining, Functional transfer training, Endurance training, Patient/family training, Neuromuscular reeducation, Compensatory technique education OT Plan: Skilled OT OT Frequency: 5 times per week until discharge & PRN OT Discharge Recommendations: Home OT - Discharge Recommendations Placed: Yes OT Goals: Multi-Disciplinary Problems (from Occupational Therapy) Active Problems Problem: Balance Start Date: 07/30/23 Goal Start Date Expected End Date End Date LTG - Patient will maintain standing balance to allow for safe mobility 07/30/23 08/20/23 -- Problem: Bathing Start Date: 07/30/23 Goal Start Date Expected End Date End Date LTG - Patient will utilize adaptive techniques to (more content not included)... 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 Carotid stenosis, bilateral Carpal tunnel syndrome, left Cervical myelopathy (CMS/HCC) Congenital spondylolisthesis Cigarette smoker Cigarette smoker two packs a day or less Chronic diastolic heart failure (CMS/HCC) Coronary artery disease Coronary [...] without complication (CMS/HCC) Undifferentiated inflammatory polyarthritis (CMS/HCC) Elevated troponin Acute hypoxic respiratory failure (CMS/HCC) Multifocal pneumonia NSTEMI (non-ST elevated myocardial infarction) (CMS/HCC) 07/31/23 0838 PT Last Visit PT Received On 07/31/23 Response to Previous Treatment Patient with no complaints from previous session. General Family/Caregiver Present No Subjective Pt in bed awake and alert, agreeable to participate. Pt ok to see per nrsg. Activity Tolerance Endurance Stage II Activity Tolerance Comments Pt tolerated bed mobility, transfers and ambulation in acosta without difficulty. Mild fatigue observed. HR in 50's throughout session. Precautions Medical Precautions telemetry, alarms Post-Surgical Precautions recent spinal sx - no BLT, log roll Pain Assessment Pain Assessment 0-10 Pain Score 6 Pain Type Acute pain;Surgical pain Pain Location Back Cognition Overall Cognitive Status WFL Arousal/Alertness Appropriate responses to stimuli Orientation Level Oriented X4 Following Commands Follows all commands and directions without difficulty Safety Judgment Decreased awareness of need for safety Awareness of Errors Assistance required to identify errors made Deficits Decreased awareness of deficits Attention Span Appears intact Memory Appears intact Problem Solving Assistance required to identify errors made Communication Intact Cognition Comments Cues to maintain safe proximity with RW throughout ambulation to prevent LOB/falls. General Assessment Skin Integrity rosa midline low back, no dressing, rosa intact Static Sitting Balance Static Sitting-Balance Support Feet supported Static Sitting-Level of Assistance Independent Static Sitting-Comment/Number of Minutes EOB, chair Dynamic Sitting Balance Dynamic Sitting-Balance Support Feet supported Dynamic Sitting-Balance Forward lean;Lateral lean Dynamic Sitting Balance-Level of Assistance Independent Dynamic Sitting-Comments no LOB Static Standing Balance Static Standing-Balance Support Right upper extremity supported;Left upper extremity supported;With device (RW) Static Standing-Level of Assistance Close supervision Static Standing-Comment/Number of Minutes fwd head posture, rounded shoulders Ambulation Ambulation Yes Ambulation 1 Surface 1 Level tile Device 1 Rolling walker Assistance 1 Close supervision Quality of Gait 1 history of foot drop in L foot, decr foot clearance and stance time LLE, slow shanon, pushes RW too far ahead Comments/Distance (ft) 1 ~100' (pt stated that is more than she usually walks in a day at home) Bed Mobility Bed Mobility Yes Bed Mobility 1 Bed Mobility From 1 Supine Bed Mobility Type 1 To and from Bed Mobility to 1 Ro (more content not included)... [facility] 07-30-2023 Note Hospital Medicine Daily Progress Note - 07/30/2023 4:55 PM; Room: [address] [place] [address] Admission: 07/26/2023 3:28 PM; Length of stay: 4 days THE HOSPITALIST TEAM PREFERS TO USE [employer] FOR COMMUNICATION 7AM-7PM. IF I DO NOT RESPOND WITHIN 15 MINUTES, PLEASE PAGE ME/CALL THROUGH THE RETAIL SOLAR ADVISOR. FROM 7PM-7AM, PLEASE PAGE [phone](COVR) Code Status: Full Code Barriers to Discharge: post PCI Expected Discharge Date: in am Discharge Destination: home Overview Patient is seen for evaluation and management of Angina. Mirna Quezada is an 72 y.o. female who came from home with dizziness. Patient carries history of smoking quit last week, CABG in 2000, Parkinson, spinal surgery last Sunday at [facility] and was discharged home. Prior to Sunday patient did not have any problem she denies chest pain, shortness of breath, cough, fever, 1 at or any other related symptoms on Sunday she felt unwell and dizzy, she slid off the bed without hitting her head, her called 911 and she was brought to [facility]. Subjective Seen and evaluated at the bedside, she is status post PCI. Reporting no chest pain, shortness of breath. Physical Exam Visit Vitals BP (!) 136/41 Pulse 64 Temp 36.4 ???C (97.6 ???F) (Temporal) Resp 22 Intake/Output Summary (Last 24 hours) at 07/30/2023 1655 Last data filed at 07/30/2023 1536 Gross per 24 hour Intake 1112.29 ml Output 2460 ml Net -1347.71 ml Physical Exam Eyes: Pupils: Pupils are equal, round, and reactive to light. Cardiovascular: Rate and Rhythm: Normal rate and regular rhythm. Pulmonary: Effort: Pulmonary effort is normal. Breath sounds: Normal breath sounds. Abdominal: General: Bowel sounds are normal. Palpations: Abdomen is soft. Neurological: General: No focal deficit present. Mental Status: She is alert and oriented to person, place, and time. Estimated body mass index is 23.43 kg/m??? as calculated from the following: Height as of this encounter: 1.6 m (5' 3 ). Weight as of this encounter: 60 kg (132 lb 4.4 oz). Active Inpatient Problems Principal Problem: NSTEMI (non-ST elevated myocardial infarction) (CMS/HCC) Active Problems: 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/HCC) Chronic diastolic heart failure (CMS/HCC) HTN (hypertension) Mixed anxiety depressive disorder Mixed stress and urge urinary incontinence Parkinson's disease (CMS/HCC) Status post coronary artery bypass graft Tobacco user Type 2 diabetes mellitus without complication (CMS/HCC) Multifocal pneumonia Assessment and Plan NSTEMI, Type I - status post coronary angiogram, PCI to mid RCA. - Continue with DAPT, beta-navdeep and statin. Chronic systolic and diastolic heart failure NYHA IIC Strict intake and output Continue aspirin and statin Acute hypoxic Respiratory Failure due to PNA, resolved - Imaging: CTA chest showed mild bilateral pulmonary infiltrates - Patient presented with hypoxia Community-Acquired Pneumonia - Continue with Rocephin to complete 5 days of antibiotics. Pressure Ulcer Pressure Ulcer Site Buttock Right Stage 1 Present on admission:yes Diabetes Mellitus, type 2, controlled, without usp use of insulin, with neuropathy A1c pending SSI ACHS Diabetic diet Continue lyrica Parkinson's Disease Continue sinemet Mixed Anxiety/Depressive Disorder Continue celexa Wounds: Wound 07/26/23 Pressure Injury Sacrum (Active) Date First Assessed/Time First Assessed: 07/26/23 1548 Present on Original Admission: Yes Hand Hygiene Completed: Yes Primary Wound Type: Pressure Injury Location: Sacrum Assessments 07/26/2023 3:45 PM 07/30/2023 3:30 PM Site Assessment Blanchable erythema Blanchable erythema Wound 07/26/23 Incision Back Lower (Active) Date First Assessed/Time First Assessed: 07/26/23 1548 Present on Original Admission: Yes Primary Wound Type: (c) Incision Location: Back Wound Location Orientation: Lower Number of [place] Placed: 14 Assessments 07/26/2023 3:45 PM 07/30/2023 3:27 PM Site Assessment Clean;Dry;Intact Clean;Dry;Intact Wound 07/28/23 Buttocks Right (Active) Date First Assessed/Time First Assessed: 07/28/23 0730 Location: Buttocks Wound Location Orientation: Right Wound Description (Comments): see picture in Media Assessments 07/28/2023 8:00 AM 07/30/2023 3:29 PM Site Assessment Dry;Intact;Non-blanchable erythema Dry;Intact;Non-blanchable erythema Nutrition Screen: VTE Prophylaxis: Heparin subcutaneous Scheduled Meds aspirin, 81 mg, oral, Daily atorvastatin, 40 mg, oral, Nightly carbidopa-levodopa, 1 tablet, oral, 4x daily And carbidopa-levodopa, 1 half tablet, oral, 4x daily cefTRIAXone, 2 g, intravenous, q24h citalopram, 40 mg, oral, q AM clopidogrel, 75 mg, oral, Daily cyanocobalamin, 1,000 mcg, oral, Daily dapagliflozin propanediol, 5 mg, oral, Daily heparin (porcine), 5,000 Units, subcutaneous, BID insulin lispro, 0-5 Units, subc (more content not included)... [facility] 07-30-2023 Note Patient: Mirna Stearns Procedure Information Date/Time: 07/30/23829 Procedure: Coronary angiography Location: [facility] [employer]PER[employer] 2 BIPLANE / [facility] (Cath) Providers: Mati Novak MD Clinical information reviewed: [facility] Meds Physical Exam Airway Mallampati: II TM distance: >3 FB Cardiovascular Rhythm: regular Rate: normal (-) murmur, friction rub, carotid bruits, peripheral edema, systolic click, JVD, weak pulses Dental Pulmonary Breath sounds clear to auscultation Abdominal (-) obese Abdomen: soft Bowel sounds: normal Anesthesia Plan ASA 4 (Moderate sedation) Additional Equipment Requests [facility] 07-30-2023 Note Occupational Therapy Occupational Therapy Evaluation Patient Name: Mirna Quezada : 1950 Today's Date: 07/30/2023 Time In: 734 Time Out: 752 Mirna Quezada is an 72 y.o. female who came from home with dizziness. Patient carries history of smoking quit last week, CABG in 2000, Parkinson, spinal surgery last Sunday at [facility] and was discharged home. Prior to Sunday patient did not have any problem she denies chest pain, shortness of breath, cough, fever, 1 at or any other related symptoms on Sunday she felt unwell and dizzy, she slid off the bed without hitting her head, her called 911 and she was brought to [facility], per the note there patient was hypoxic her lungs were clear except for being diminished at bases, with no signs of volume overload status patient initially required nonrebreather, then transition to 3 L nasal cannula, CTA chest was negative for PE but showed mild bilateral pulm infiltrates, Principal Problem: NSTEMI (non-ST elevated myocardial infarction) (CMS/HCC) General Subjective: friendly and cooperative . 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 Carotid stenosis, bilateral Carpal tunnel syndrome, left Cervical myelopathy (CMS/HCC) Congenital spondylolisthesis Cigarette smoker Cigarette smoker two packs a day or less Chronic diastolic heart failure (CMS/HCC) Coronary artery disease Coronary [...] depressive disorder Muscle weakness Multiple system atrophy ([facility]/HCC) Mixed stress and urge urinary 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, unilateral, right ear with restricted hearing on the contralateral side Neurogenic claudication Nonrheumatic aortic valve stenosis PAD (peripheral artery disease) (CMS/HCC) Polyneuropathy due to type 2 diabetes mellitus (CMS/HCC) Polyneuropathy Persistent insomnia Parkinson's disease (CMS/HCC) Palpitations Preoperative evaluation to rule out surgical contraindication Primary cardiomyopathy ([facility]/HCC) Seasonal allergic rhinitis Tinnitus Status post coronary artery bypass graft Spinal stenosis of lumbar region Solitary pulmonary nodule Primary osteoarthritis Osteoarthrosis Tobacco user Type 2 diabetes mellitus without complication (CMS/HCC) Undifferentiated inflammatory polyarthritis (CMS/HCC) Elevated troponin Acute hypoxic respiratory failure (CMS/HCC) Multifocal pneumonia NSTEMI (non-ST elevated myocardial infarction) ([facility]/HCC) Past Medical History: Diagnosis Date Coronary artery disease Diabetes mellitus (CMS/HCC) GERD (gastroesophageal reflux disease) Heart valve disease Hyperlipidemia Primary cardiomyopathy ([facility]/HCC) Past Surgical History: Procedure Laterality Date BACK SURGERY BOWEL RESECTION CARDIAC CATHETERIZATION CARPAL TUNNEL RELEASE CERVICAL SPINE SURGERY SECTION, CLASSIC CHOLECYSTECTOMY CORONARY ARTERY BYPASS GRAFT Precautions Precautions Medical Precautions: fall risk, no bending lifting or twisting, log roll (low back sx 07/19/23) Pain Pain Assessment Pain Assessment: No/denies pain Cognition Cognition Overall Cognitive Status: Within Functional Limits General Assessment General Assessment Hearing: (wfl) Tone: Tremors (PD) Hand Dominance: Right Home Living Home Living Type of Home: Mobile home Lives With: Spouse Home Adaptive Equipment: Walker rolling, Rollator, Wheelchair-power, Wheelchair-manual (ar, [facility]) Home Layout: One level Home Access: Ramped entrance Bathroom Shower/Tub: Tub/shower unit Prior Level of Function Prior Function Level of Moody: Needs assistance with ADLs, Needs assistance with homemaking (assist with socks,) Prior Functional Mobility: Independent with rolling walker Receives Help From: (friendl assist with bath and IADLs 4x/w) Prior IADLs IADL History Homemaking Responsibilities: Yes (simple home mgt) Dynamic Sitting Balance Dynamic Sitting Balance Dynamic Sitting Balance-Level of Assistance: Distant supervision Static Standing Balance Static Standing Balance Static Standing-Level of Assistance: Close supervision ADL ADL LE Dressing Assi (more content not included)... [facility] 07-29-2023 Note Physical Therapy Physical Therapy Evaluation Patient Name: Mirna Quezada : 1950 Today's Date: 07/29/2023 Hx: 72 y/o female adm with SOB, dx with NSTEMI from OSH. Pt to have cardiac cath 07/30/23. General Family/Caregiver Present: No Subjective: I have foot drop. 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 Carotid stenosis, bilateral Carpal tunnel syndrome, left Cervical myelopathy (CMS/HCC) Congenital spondylolisthesis Cigarette smoker Cigarette smoker two packs a day or less Chronic diastolic heart failure (CMS/HCC) Coronary artery disease Coronary [...] without complication (CMS/HCC) Undifferentiated inflammatory polyarthritis (CMS/HCC) Elevated troponin Acute hypoxic respiratory failure (CMS/HCC) Multifocal pneumonia NSTEMI (non-ST elevated myocardial infarction) (CMS/HCC) Past Medical History: Diagnosis Date Coronary artery disease Diabetes mellitus (CMS/HCC) GERD (gastroesophageal reflux disease) Heart valve disease Hyperlipidemia Primary cardiomyopathy (CMS/HCC) Past Surgical History: Procedure Laterality Date BACK SURGERY BOWEL RESECTION CARDIAC CATHETERIZATION CARPAL TUNNEL RELEASE CERVICAL SPINE SURGERY SECTION, CLASSIC CHOLECYSTECTOMY CORONARY ARTERY BYPASS GRAFT Precautions Precautions Medical Precautions: cardiac, fall risk, no bending lifting or twisting, telemetry Pain Pain Assessment Pain Assessment: 0-10 Pain Score: 3 Pain Type: Surgical pain, Chronic pain Pain Location: Back Clinical Progression: Not changed Pain Interventions: Ambulation/increased activity Cognition Cognition Overall Cognitive Status: Within Functional Limits Arousal/Alertness: Appropriate responses to stimuli Orientation Level: Oriented X4 Following Commands: Follows all commands and directions without difficulty Safety Judgment: Good awareness of safety precautions Awareness of Errors: Good awareness of errors made Deficits: Fully aware of deficits Attention Span: Attends with cues to redirect Memory: Appears intact Problem Solving: Able to problem solve independently Communication: Intact General Assessment General Assessment Hearing: (appears WFL) Skin Integrity: (rosa midline low back,no dressing) Tone: Tremors, RUE, LUE Hand Dominance: Right Home Living Home Living Type of Home: Mobile home Lives With: Spouse Home Adaptive Equipment: Walker rolling, Rollator, Wheelchair-power, Wheelchair-manual Home Living Comments: (pt reports last time she fell ws 1 yr ago.No injury, able to help her get up off floor) Home Layout: One level Home Access: Ramped entrance Bathroom Shower/Tub: Tub/shower unit Bathroom Toilet: Standard Bathroom Equipment: Shower chair with back Prior Level of Function Prior Function Level of Moody: Needs assistance with ADLs, Needs assistance with homemaking Prior Functional Mobility: Household distances, Independent with rolling walker Receives Help From: Friends, Family (friend comes to do laundry and cleaning, and to help pt and spouse with bathing. Pt was to have HH PT following back surgery, however did not start ther (more content not included)... [facility] 07-29-2023 Note Attestation signed by Abilio Shay MD at 07/30/2023 1:14 PM I personally saw and examined the patient on the same date of service as resident/fellow Terri Laureano. I discussed the findings and therapeutic plan with the resident/fellow Terri aLureano. I agree with the documentation, except for any edits/updates below. Teaching Physician's Revisions: As noted above Cardiology Progress Note REASON FOR CONSULT Reason for Consult: NSTEMI-transfer from OSH SUBJECTIVE HPI: Mirna Quezada is a 72 y.o. female with PMHx significant for CAD s/p CABG (ALMARAZ to LAD, SVG to D1, SVG to OM 2000), AV stenosis, COPD, HTN/HLD, and parkinson's disease who presented with weakness and hypoxia after spinal surgery. She was found to have pneumonia, and upon admission troponin was elevated with HS-Trop 155.5, proBNP mildly elevated, EKG showed NSR. She was initially started on Heparin drip and transferred to [facility] from [place] for further cardiologic workup. Interval History: Patient seen and examined at bedside. In NAD. Resting comfortably. She is having breakfast. Denies fevers, chills, chest pain, pressure, SOB, palpitations, or cough. She denies abdominal pain, nausea/vomiting. She denies any LE edema or orthopnea. ECHO 07/26 showed EF 43%, G2DD, mod , and wall motion abnormalities. She is aware and agreeable to plan for cardiac cath. OBJECTIVE Objective Objective: Visit Vitals BP 130/58 (BP Location: Right arm, Patient Position: Lying) Pulse 58 Temp 35.9 ???C (96.6 ???F) (Temporal) Resp 15 Physical Examination: Physical Exam Vitals reviewed. Constitutional: General: She is not in acute distress. Appearance: Normal appearance. She is not ill-appearing, toxic-appearing or diaphoretic. HENT: Head: Normocephalic and atraumatic. Eyes: General: No scleral icterus. Extraocular Movements: Extraocular movements intact. Cardiovascular: Rate and Rhythm: Normal rate and regular rhythm. Pulses: Normal pulses. Heart sounds: Normal heart sounds. No murmur heard. No friction rub. No gallop. Pulmonary: Effort: Pulmonary effort is normal. Breath sounds: Normal breath sounds. No stridor. No wheezing, rhonchi or rales. Abdominal: General: Bowel sounds are normal. There is no distension. Palpations: Abdomen is soft. There is no mass. Tenderness: There is no abdominal tenderness. There is no guarding. Hernia: No hernia is present. Musculoskeletal: Right lower leg: No edema. Left lower leg: No edema. Skin: Capillary Refill: Capillary refill takes less than 2 seconds. Neurological: General: No focal deficit present. Mental Status: She is alert and oriented to person, place, and time. Psychiatric: Mood and Affect: Mood normal. Behavior: Behavior normal. Current Meds: Current Facility-Administered Medications: acetaminophen (Tylenol) tablet 650 mg, 650 mg, oral, q8h PRN, Lisette Rehman NP aspirin EC tablet 81 mg, 81 mg, oral, Daily, FERN Tejeda, 81 mg at 07/29/23904 atorvastatin (Lipitor) tablet 40 mg, 40 mg, oral, Nightly, Terri Laureano MD, 40 mg at 07/28/232205 carbidopa-levodopa (Sinemet) 25-100 mg per tablet 1 tablet, 1 tablet, oral, 4x daily, 1 tablet at 07/29/23903 AND carbidopa-levodopa (Sinemet) 12.5-50 mg per split tablet 1 half tablet, 1 half tablet, oral, 4x daily, FERN Tejeda, 1 half tablet at 07/29/23902 cefTRIAXone (Rocephin) IVPB 2 g in NS 50 mL (Mini-Bag Plus), 2 g, intravenous, q24h, Veda Wong NP citalopram (CeleXA) tablet 40 mg, 40 mg, oral, q AM, FERN Tejeda, 40 mg at 07/29/23902 clopidogrel (Plavix) tablet 75 mg, 75 mg, oral, Daily, FERN Tejeda, 75 mg at 07/29/23902 cyanocobalamin (Vitamin B-12) tablet 1,000 mcg, 1,000 mcg, oral, Daily, FERN Tejeda, 1,000 mcg at 07/29/23904 dapagliflozin propanediol (Farxiga) tablet 5 mg, 5 mg, oral, Daily, Terri Laureano MD, 5 mg at 07/29/23903 glucose chewable tablet 24 g, 24 g, oral, q15 min PRN OR dextrose 50 % in water (D50W) syringe 25 g, 25 g, intravenous, q15 min PRN, FERN Tejeda heparin (porcine) injection 5,000 Units, 5,000 Units, subcutaneous, BID, Veda Wong NP, 5,000 Units at 07/29/23904 HYDROcodone-acetaminophen ([place]) 10-325 mg per tablet 1 tablet, 1 tablet, oral, q8h PRN, Lisette Rehman NP, 1 tablet at 07/29/23903 insulin lispro (HumaLOG) injection 0-5 Units, 0-5 Units, subcutaneous, TID with meals, 1 Units at 07/29/23 1154 AND insulin lispro (HumaLOG) injection 0-4 Units, 0-4 Units, subcutaneous, Nightly, FERN Tejeda isosorbide mononitrate ER (Imdur) 24 hr tablet 30 mg, 30 mg, oral, Daily, FERN Tejeda, 30 mg at 07/29/23 0905 melatonin tablet 5 mg, 5 mg, oral, Nightly PRN, FERN Tejeda metoprolol tartrate (Lopressor) split tab (more content not included)... [facility] 07-29-2023 Note Hospital Medicine Daily Progress Note - 07/29/2023 9:22 AM; Room: [address] [place] [address] Admission: 07/26/2023 3:28 PM; Length of stay: 3 days THE HOSPITALIST TEAM PREFERS TO USE [employer] CHAT FOR COMMUNICATION 7AM-7PM. IF I DO NOT RESPOND WITHIN 15 MINUTES, PLEASE PAGE ME/CALL THROUGH THE RETAIL SOLAR ADVISOR. FROM 7PM-7AM, PLEASE PAGE [phone](COVR) Code Status: Full Code Barriers to Discharge: heart cath on Sunday Expected Discharge Date: 1-2 days Discharge Destination: home Overview Patient is seen for evaluation and management of NSTEMI. Mirna Quezada is an 72 y.o. female who came from home with dizziness. Patient carries history of smoking quit last week, CABG in 2000, Parkinson, spinal surgery last Sunday at [facility] and was discharged home. Prior to Sunday patient did not have any problem she denies chest pain, shortness of breath, cough, fever, 1 at or any other related symptoms on Sunday she felt unwell and dizzy, she slid off the bed without hitting her head, her called 911 and she was brought to [facility]. Subjective Patient was assessed at bedside. She denies any pain, eating and drinking well, no issues having bowel movements or urinating. She is aware of plan for heart cath tomorrow. Physical Exam Visit Vitals BP 130/58 (BP Location: Right arm, Patient Position: Lying) Pulse 53 Temp 35.9 ???C (96.6 ???F) (Temporal) Resp 15 Intake/Output Summary (Last 24 hours) at 07/29/2023 0922 Last data filed at 07/29/2023 0600 Gross per 24 hour Intake 1490 ml Output 2250 ml Net -760 ml Physical Exam Vitals reviewed. Constitutional: General: She is awake. She is not in acute distress. Appearance: Normal appearance. She is not ill-appearing. Cardiovascular: Rate and Rhythm: Normal rate and regular rhythm. Pulses: Radial pulses are 2+ on the right side and 2+ on the left side. Dorsalis pedis pulses are 2+ on the right side and 2+ on the left side. Heart sounds: Normal heart sounds. Pulmonary: Effort: Pulmonary effort is normal. No tachypnea, accessory muscle usage or respiratory distress. Breath sounds: Normal breath sounds. Abdominal: General: Bowel sounds are normal. There is no distension. Palpations: Abdomen is soft. Tenderness: There is no abdominal tenderness. Musculoskeletal: Right lower leg: No edema. Left lower leg: No edema. Skin: General: Skin is warm and dry. Neurological: Mental Status: She is alert and oriented to person, place, and time. Mental status is at baseline. Psychiatric: Attention and Perception: Attention normal. Mood and Affect: Mood normal. Speech: Speech normal. Behavior: Behavior is cooperative. Estimated body mass index is 23 kg/m??? as calculated from the following: Height as of this encounter: 1.6 m (5' 3 ). Weight as of this encounter: 58.9 kg (129 lb 13.6 oz). Active Inpatient Problems Principal Problem: NSTEMI (non-ST elevated myocardial infarction) ([facility]) Active Problems: Autonomic neuropathy due to type 2 diabetes mellitus ([facility]/HCC) Chronic diastolic heart failure ([facility]) HTN (hypertension) Mixed anxiety depressive disorder Mixed stress and urge urinary incontinence Parkinson's disease ([facility]) Status post coronary artery bypass graft Tobacco user Type 2 diabetes mellitus without complication ([facility]/HCC) Multifocal pneumonia Assessment and Plan NSTEMI, suspect type 2 due to hypoxia 2/2 PNA Continue to trend troponin Cardiology following, they will perform heart cath on Sunday Heparin was discontinued Chronic systolic and diastolic heart failure NYHA IIC Strict intake and output Continue aspirin and statin Acute hypoxic Respiratory Failure due to PNA, resolved - Imaging: CTA chest showed mild bilateral pulmonary infiltrates - Patient presented with hypoxia Community-Acquired Pneumonia - Antibiotics: Rocephin 2 gram daily, she still sounds mildly coarse on auscultation, will extend to complete 5 days Pressure Ulcer Pressure Ulcer Site Buttock Right Stage 1 Present on admission:yes Diabetes Mellitus, type 2, controlled, without usp use of insulin, with neuropathy A1c pending SSI ACHS Diabetic diet Continue lyrica Parkinson's Disease Continue sinemet Mixed Anxiety/Depressive Disorder Continue celexa Case will be discussed with Dr. Carlson Wounds: Wound 07/26/23 Pressure Injury Sacrum (Active) Date First Assessed/Time First Assessed: 07/26/23 1548 Present on Original Admission: Yes Hand Hygiene Completed: Yes Primary Wound Type: Pressure Injury Location: Sacrum Assessments 07/26/2023 3:45 PM 07/28/2023 8:38 PM Site Assessment Blanchable erythema Blanchable erythema Wound 07/26/23 Incision Back Lower (Active) Date First Assessed/Time First Assessed: 07/26/23 1548 Present on Original Admission: Yes Primary Wound Type: (c) Incision Location: Back Wound Location Orientation: Lower Number of Rosa Placed: 14 Assessments 07/26/2023 3: (more content not included)... [facility] 07-28-2023 Note Cardiology Progress Note Subjective Subjective: Mirna Quezada is a 72 y.o. female with history CAD s/p CABG (ALMARAZ to LAD, SVG to D1, SVG to OM 2000), AV stenosis, COPD, HTN/HLD, and parkinson's disease who recently had spinal surgery and has acutely having more weakness/dizziness was found to be hypoxic, hypotensive on admission and was admitted for presumed hospital acquired pneumonia. HS troponin was 155.5, proBNP was mildly elevated. EKG showed NSR. She was started on heparin drip and transferred to [facility] from [place] for further cardiologic workup. Interval Hx: Patient seen and examined at bedside. In NAD. Resting comfortably. ECHO done 07/26 showed EF 43%, Grade 2 diastolic dysfunction, moderate , and wall motion abnormalities. She states she is doing fine and thinks she is ready to be discharged. We are monitoring her heart failure and troponin levels. Objective Current Facility-Administered Medications: acetaminophen (Tylenol) tablet 650 mg, 650 mg, oral, q8h PRN, Lisette Rehman NP aspirin EC tablet 81 mg, 81 mg, oral, Daily, FERN Tejeda, 81 mg at 07/28/23 09 atorvastatin (Lipitor) tablet 40 mg, 40 mg, oral, Nightly, Terri Laureano MD azithromycin (Zithromax) tablet 500 mg, 500 mg, oral, Daily, Kishan Cardona MD, 500 mg at 07/27/23 171 carbidopa-levodopa (Sinemet) 25-100 mg per tablet 1 tablet, 1 tablet, oral, 4x daily, 1 tablet at 07/28/23 09 AND carbidopa-levodopa (Sinemet) 12.5-50 mg per split tablet 1 half tablet, 1 half tablet, oral, 4x daily, FERN Tejeda, 1 half tablet at 07/28/23902 cefTRIAXone (Rocephin) IVPB 2 g in NS 50 mL (Mini-Bag Plus), 2 g, intravenous, q24h, Stiven Malagon MD, Stopped at 07/27/23 174 citalopram (CeleXA) tablet 40 mg, 40 mg, oral, q AM, FERN Tejeda, 40 mg at 07/28/23907 clopidogrel (Plavix) tablet 75 mg, 75 mg, oral, Daily, FERN Tejeda, 75 mg at 07/28/23 09 cyanocobalamin (Vitamin B-12) tablet 1,000 mcg, 1,000 mcg, oral, Daily, FERN Tejeda, 1,000 mcg at 07/28/23 09 glucose chewable tablet 24 g, 24 g, oral, q15 min PRN OR dextrose 50 % in water (D50W) syringe 25 g, 25 g, intravenous, q15 min PRN, FERN Tejeda HYDROcodone-acetaminophen ([place]) 10-325 mg per tablet 1 tablet, 1 tablet, oral, q8h PRN, Lisette Rehman NP, 1 tablet at 07/27/232106 insulin lispro (HumaLOG) injection 0-5 Units, 0-5 Units, subcutaneous, TID with meals, 1 Units at 07/27/23 171 AND insulin lispro (HumaLOG) injection 0-4 Units, 0-4 Units, subcutaneous, Nightly, FERN Tejeda isosorbide mononitrate ER (Imdur) 24 hr tablet 30 mg, 30 mg, oral, Daily, FERN Tejeda, 30 mg at 07/28/23 0903 melatonin tablet 5 mg, 5 mg, oral, Nightly PRN, FERN Tejeda oxybutynin XL (Ditropan-XL) 24 hr tablet 10 mg, 10 mg, oral, q AM, FERN Tejeda, 10 mg at 07/28/23 0908 pregabalin (Lyrica) capsule 200 mg, 200 mg, oral, TID, FERN Tejeda, 200 mg at 07/28/23 09 primidone (Mysoline) tablet 50 mg, 50 mg, oral, 4x daily RT, FERN Tejeda, 50 mg at 07/28/23907 tiZANidine (Zanaflex) tablet 4 mg, 4 mg, oral, q8h PRN, FERN Tejeda, 4 mg at 07/27/232106 Objective: Patient Vitals for the past 24 hrs: BP Temp Temp src Pulse Resp SpO2 Weight 07/28/23 0800 143/67 36.1 ???C (97 ???F) Temporal 56 20 93 % -- 07/28/23 0509 -- -- -- -- -- -- 58.4 kg (128 lb 12 oz) 07/28/23 0400 133/51 -- -- (!) 49 19 93 % -- 07/28/23 0000 138/66 -- -- 54 22 95 % -- 07/27/231999 114/73 -- -- 65 17 96 % -- 07/27/23 1930 (!) 139/48 36.9 ???C (98.4 ???F) Temporal 64 (!) 28 96 % -- 07/27/23 1625 125/63 36.5 ???C (97.7 ???F) Temporal 72 22 95 % -- 07/27/23 1200 129/68 -- -- 73 19 94 % -- Physical Examination: GENERAL: AOx3, in no acute distress. HEAD: Atraumatic, normocephalic. EYES: CARMENCITA, EOMI. NECK: No JVD present. CARDIAC: RRR. No murmur, rubs, or gallops. RESPIRATORY: CTAB, no increased effort of breathing. ABDOMEN: Soft, nontender, nondistended. EXTREMITIES: No lower extremity edema, peripheral pulses are 2+ bilaterally. NEURO: No focal deficits Relevant Lab Results Encounter Date: 07/26/23 ECG 12 lead Result Value Ventricular Rate 77 Atrial Rate 77 TX Interval 146 QRS DURATION 96 QT Interval 384 QTC CALCULATION(BAZETT) 434 P [place] 66 R-[place] 94 T Wave [place] -6 Impression Normal sinus rhythm with sinus arrhythmia Right axis deviation T wave abnormality, consider inferior ischemia Abnormal ECG When compared with ECG of 26-JUL-2023 21:10, No significant change was found Confirmed by Ferdinand SCHILLING, ZEYNEP Escobar ([id number]) on 07/27/2023 1:00:25 PM Lab Results Component Value Date TROPONINI 0.67 (HH) 07/28/2023 Transthoracic echo (TTE) complete Result Date: 07/27/2023 1 1 [facility] Heart Station [address] [place] [address] [phone] (fax) Echocardiogram-[facility] Name: MIRNA QUEZADA Study Date: 07/27/2023 07:56 AM Account # (more content not included)... [facility] 07-28-2023 Note Hospital Medicine Daily Progress Note - 07/28/2023 1:22 PM; Room: [address] [place] [address] Admission: 07/26/2023 3:28 PM; Length of stay: 2 days THE HOSPITALIST TEAM PREFERS TO USE [employer] CHAT FOR COMMUNICATION 7AM-7PM. IF I DO NOT RESPOND WITHIN 15 MINUTES, PLEASE PAGE ME/CALL THROUGH THE RETAIL SOLAR ADVISOR. FROM 7PM-7AM, PLEASE PAGE [phone](COVR) Code Status: Full Code Barriers to Discharge: possible heart cath, PT/OT dc recs Expected Discharge Date: TBD Discharge Destination: home Overview Patient is seen for evaluation and management of NSTEMI. Mirna Quezada is an 72 y.o. female who came from home with dizziness. Patient carries history of smoking quit last week, CABG in 2000, Parkinson, spinal surgery last Sunday at [facility] and was discharged home. Prior to Sunday patient did not have any problem she denies chest pain, shortness of breath, cough, fever, 1 at or any other related symptoms on Sunday she felt unwell and dizzy, she slid off the bed without hitting her head, her called 911 and she was brought to [facility]. Subjective Patient assessed in the bed, she denies any chest pain or shortness of breath. She is eating and drinking well, no issues having bowel movements or urinating. She reports coughing up some phlegm this morning, she remains on room air. Physical Exam Visit Vitals BP 126/70 (BP Location: Right arm, Patient Position: Lying) Pulse 69 Temp 36.2 ???C (97.2 ???F) (Temporal) Resp 15 Intake/Output Summary (Last 24 hours) at 07/28/2023 1322 Last data filed at 07/28/2023 1000 Gross per 24 hour Intake 1632.28 ml Output 2450 ml Net -817.72 ml Physical Exam Vitals reviewed. Constitutional: General: She is awake. She is not in acute distress. Appearance: Normal appearance. She is not ill-appearing. Cardiovascular: Rate and Rhythm: Normal rate and regular rhythm. Pulses: Radial pulses are 2+ on the right side and 2+ on the left side. Heart sounds: Normal heart sounds. Pulmonary: Effort: Pulmonary effort is normal. No tachypnea, accessory muscle usage or respiratory distress. Breath sounds: Examination of the left-lower field reveals rhonchi. Rhonchi present. Abdominal: General: Bowel sounds are normal. There is no distension. Palpations: Abdomen is soft. Tenderness: There is no abdominal tenderness. Musculoskeletal: Right lower leg: No edema. Left lower leg: No edema. Skin: General: Skin is warm and dry. Neurological: Mental Status: She is alert and oriented to person, place, and time. Mental status is at baseline. Motor: Tremor (parkinson's) present. Psychiatric: Attention and Perception: Attention normal. Mood and Affect: Mood normal. Behavior: Behavior is cooperative. Estimated body mass index is 22.81 kg/m??? as calculated from the following: Height as of this encounter: 1.6 m (5' 3 ). Weight as of this encounter: 58.4 kg (128 lb 12 oz). Active Inpatient Problems Principal Problem: NSTEMI (non-ST elevated myocardial infarction) ([facility]) Active Problems: Autonomic neuropathy due to type 2 diabetes mellitus ([facility]/HCC) Chronic diastolic heart failure ([facility]) HTN (hypertension) Mixed anxiety depressive disorder Mixed stress and urge urinary incontinence Parkinson's disease ([facility]) Status post coronary artery bypass graft Tobacco user Type 2 diabetes mellitus without complication ([facility]) Multifocal pneumonia Assessment and Plan NSTEMI, suspect type 2 due to hypoxia 2/2 PNA Continue to trend troponin Cardiology following, pending determination if she will require heart cath Heparin was discontinued Chronic systolic and diastolic heart failure NYHA IIC Strict intake and output Continue aspirin and statin Acute hypoxic Respiratory Failure due to PNA, resolved - Imaging: CTA chest showed mild bilateral pulmonary infiltrates - Patient presented with hypoxia Community-Acquired Pneumonia - Antibiotics: Rocephin 1 gram daily, today is day 3 Pressure Ulcer Pressure Ulcer Site Buttock Right Stage 1 Present on admission:yes Diabetes Mellitus, type 2, controlled, without usp use of insulin, with neuropathy A1c pending SSI ACHS Diabetic diet Continue lyrica Parkinson's Disease Continue sinemet Mixed Anxiety/Depressive Disorder Continue celexa Case will be discussed with Dr. Carlson Wounds: Wound 07/26/23 Pressure Injury Sacrum (Active) Date First Assessed/Time First Assessed: 07/26/23 1548 Present on Original Admission: Yes Hand Hygiene Completed: Yes Primary Wound Type: Pressure Injury Location: Sacrum Assessments 07/26/2023 3:45 PM 07/28/2023 8:00 AM Site Assessment Blanchable erythema Blanchable erythema Wound 07/26/23 Incision Back Lower (Active) Date First Assessed/Time First Assessed: 07/26/23 1548 Present on Original Admission: Yes Primary Wound Type: (c) Incision Location: Back Wound Location Orientation: Lower Number of Rosa Placed: 14 Assessme (more content not included)... [facility] 07-27-2023 Note Attestation signed by Abilio Shay MD at 07/30/2023 12:58 PM I personally saw and examined the patient on the same date of service as resident/fellow Terri Laureano. I discussed the findings and therapeutic plan with the resident/fellow Terri Laureano. I agree with the documentation, except for any edits/updates below. Teaching Physician's Revisions: As noted above Cardiology Progress Note Subjective Subjective: Mirna Quezada is a 72 y.o. female with history CAD s/p CABG (ALMARAZ to LAD, SVG to D1, SVG to OM 2000), AV stenosis, COPD, HTN/HLD, and parkinson's disease who recently had spinal surgery and has acutely having more weakness/dizziness was found to be hypoxic, hypotensive on admission and was admitted for presumed hospital acquired pneumonia. HS troponin was 155.5, proBNP was mildly elevated. EKG showed NSR. She was started on heparin drip and transferred to [facility] from [place] for further cardiologic workup. Interval Hx: Patient seen and examined at bedside. In NAD. Resting comfortably. ECHO done today showed EF 43%, Grade 2 diastolic dysfunction, moderate , and wall motion abnormalities. Troponin down-trending today. Patient states shes doing well and wants to be going home, asking when she can eat as she has been NPO since midnight last night in plan of potential cath. Objective Current Facility-Administered Medications: acetaminophen (Tylenol) tablet 650 mg, 650 mg, oral, q8h PRN, Lisette Rehman NP aspirin EC tablet 81 mg, 81 mg, oral, Daily, FERN Tejeda, 81 mg at 07/27/23 0939 atorvastatin (Lipitor) tablet 20 mg, 20 mg, oral, Daily, FERN Tejeda, 20 mg at 07/27/23 0937 azithromycin (Zithromax) tablet 500 mg, 500 mg, oral, Daily, Kishan Cardona MD carbidopa-levodopa (Sinemet) 25-100 mg per tablet 1 tablet, 1 tablet, oral, 4x daily, 1 tablet at 07/27/23 1318 AND carbidopa-levodopa (Sinemet) 12.5-50 mg per split tablet 1 half tablet, 1 half tablet, oral, 4x daily, FERN Tejeda, 1 half tablet at 07/27/23 1318 cefTRIAXone (Rocephin) IVPB 2 g in NS 50 mL (Mini-Bag Plus), 2 g, intravenous, q24h, Stiven Malagon MD, Stopped at 07/26/23 1859 citalopram (CeleXA) tablet 40 mg, 40 mg, oral, q AM, FERN Tejeda, 40 mg at 07/27/23 0939 clopidogrel (Plavix) tablet 75 mg, 75 mg, oral, Daily, FERN Tejeda, 75 mg at 07/27/23 0939 cyanocobalamin (Vitamin B-12) tablet 1,000 mcg, 1,000 mcg, oral, Daily, FERN Tejeda, 1,000 mcg at 07/27/23 0939 glucose chewable tablet 24 g, 24 g, oral, q15 min PRN OR dextrose 50 % in water (D50W) syringe 25 g, 25 g, intravenous, q15 min PRN, FERN Tejeda HYDROcodone-acetaminophen ([place]) 10-325 mg per tablet 1 tablet, 1 tablet, oral, q8h PRN, Lisette Rehman NP, 1 tablet at 07/27/23 1129 insulin lispro (HumaLOG) injection 0-5 Units, 0-5 Units, subcutaneous, TID with meals AND insulin lispro (HumaLOG) injection 0-4 Units, 0-4 Units, subcutaneous, Nightly, FERN Tejeda isosorbide mononitrate ER (Imdur) 24 hr tablet 30 mg, 30 mg, oral, Daily, FERN Tejeda, 30 mg at 07/27/23 0939 melatonin tablet 5 mg, 5 mg, oral, Nightly PRN, FERN Tejeda oxybutynin XL (Ditropan-XL) 24 hr tablet 10 mg, 10 mg, oral, q AM, FERN Tejeda, 10 mg at 07/27/23 0945 pregabalin (Lyrica) capsule 200 mg, 200 mg, oral, TID, FERN Tejeda, 200 mg at 07/27/23 0939 primidone (Mysoline) tablet 50 mg, 50 mg, oral, 4x daily RT, FERN Tejeda, 50 mg at 07/27/23 1318 tiZANidine (Zanaflex) tablet 4 mg, 4 mg, oral, q8h PRN, FERN Tejeda, 4 mg at 07/26/23 2208 Objective: Patient Vitals for the past 24 hrs: BP Temp Temp src Pulse Resp SpO2 Weight 07/27/23 1200 129/68 -- -- 73 19 94 % -- 07/27/23 0950 122/51 36.7 ???C (98.1 ???F) Temporal 76 18 95 % -- 07/27/23 0612 -- -- -- -- -- -- 55.4 kg (122 lb 2.2 oz) 07/27/23 0400 132/50 -- -- 66 25 92 % -- 07/27/23 0010 151/59 -- -- 82 (!) 28 90 % -- 07/26/23 2100 139/82 36.8 ???C (98.2 ???F) Temporal 67 25 94 % -- Physical Examination: GENERAL: AOx3, in no acute distress. HEAD: Atraumatic, normocephalic. EYES: CARMENCITA, EOMI. NECK: No JVD present. CARDIAC: RRR. No murmur, rubs, or gallops. RESPIRATORY: CTAB, no increased effort of breathing. ABDOMEN: Soft, nontender, nondistended. EXTREMITIES: No lower extremity edema, peripheral pulses are 2+ bilaterally. NEURO: No focal deficits Relevant Lab Results Encounter Date: 07/26/23 ECG 12 lead Result Value Ventricular Rate 77 Atrial Rate 77 TX Interval 146 QRS DURATION 96 QT Interval 384 QTC CALCULATION(BAZETT) 434 P [place] 66 R-[place] 94 T Wave [place] -6 Impression Normal sinus rhythm with sinus arrhythmia Right axis deviation T wave abnormality, consider inferior ischemia Abnormal ECG When compared with ECG of (more content not included)... [facility] 07-27-2023 Note Attestation signed by Kishan Cardona MD at 07/27/2023 1:55 PM As the teaching physician, I have personally performed or re-performed the history of present illness, physical exam and medical decision making activities of the encounter and verified the medical student's documentation. I made pertinent changes as necessary to ensure accurate documentation. Discussed with medical student, agree with above. Patient seen and evaluated, reporting no new symptoms, no shortness of breath, no chest pain. Physical exam: Elderly female, nontoxic appearance. Lungs: Clear to auscultation with no added sounds. A/P: # NSTEMI type I, currently on heparin drip, pending coronary angiogram today with cardiology. # Acute systolic congestive heart failure with reduced EF to 40%, new onset. Pending ischemic evaluation as above. Optimize GDMT post cath. Cardiology on board. Repeat BMP in AM. # CAD status post CABG in 2000. Hospital Medicine Daily Progress Note - 07/27/2023 12:22 PM; Room: [address] [place], [place] [id number] Admission: 07/26/2023 3:28 PM; Length of stay: 1 days THE HOSPITALIST TEAM PREFERS TO USE [employer] CHAT FOR COMMUNICATION 7AM-7PM. IF I DO NOT RESPOND WITHIN 15 MINUTES, PLEASE PAGE ME/CALL THROUGH THE RETAIL SOLAR ADVISOR. FROM 7PM-7AM, PLEASE PAGE [phone](COVR) Code Status: Full Code Barriers to Discharge: Awaiting cardiac catheterization Expected Discharge Date: 2-3 days Discharge Destination: home Overview Patient is seen for evaluation and management of Dizziness and NSTEMI. Subjective Mirna Quezada is a 72 y.o. year old female patient admitted on 07/26/23 for suspicion of an NSTEMI due to an elevated troponin. She has a history of myocardial infarction s/p CABG in 2000 and Parkinson's disease. She initially reported dizziness upon admission but denies any dizziness today. She denies any chest pain, shortness of breath, nausea, vomiting, or changes in bowel habits. She was told her previous ejection fraction was 55% but is uncertain. Mirna also reports a non-productive cough that began last night. She denies any other associated symptoms. Of note, the patient reports undergoing an L3-L4 spinal fusion last week. She also reports quitting smoking on 06/28/23 and would like Chantix after discharge. Physical Exam Visit Vitals BP 122/51 Pulse 76 Temp 36.7 ???C (98.1 ???F) (Temporal) Resp 18 Intake/Output Summary (Last 24 hours) at 07/27/2023 1222 Last data filed at 07/27/2023 1115 Gross per 24 hour Intake 837.6 ml Output 2950 ml Net -2112.4 ml Physical Exam Physical Exam Constitutional: General: She is not in acute distress. Appearance: Normal appearance. She is normal weight. HENT: Head: Normocephalic and atraumatic. Pupils are equal round and reactive to light. Cardiovascular: Rate and Rhythm: Normal rate and regular rhythm. Pulses: Normal pulses. Heart sounds: No murmurs, gallops, or rub. Pulmonary: Effort: Pulmonary effort is normal. No respiratory distress. Breath sounds: Normal breath sounds. No stridor. No wheezing or rhonchi. Abdominal: General: Abdomen is flat. Bowel sounds are normal. Palpations: Abdomen is soft. Musculoskeletal: General: No swelling, tenderness, deformity. Normal range of motion. No edema noted. Skin: General: Skin is warm and dry. There is a 3-5 cm well healing incision along the midline of the the lumbar spine in the L3-L4 area. Neurological: Mental Status: She is alert and oriented to person, place, and time. Mental status is at baseline. Resting tremor in the upper extremities bilaterally. Estimated body mass index is 21.64 kg/m??? as calculated from the following: Height as of this encounter: 1.6 m (5' 3 ). Weight as of this encounter: 55.4 kg (122 lb 2.2 oz). Active Inpatient Problems Principal Problem: NSTEMI (non-ST elevated myocardial infarction) ([facility]) Assessment and Plan NSTEMI - Continue monitoring troponin - Cardiac catheterization VTE Prophylaxis: IV heparin Scheduled Meds aspirin, 81 mg, oral, Daily atorvastatin, 20 mg, oral, Daily azithromycin, 500 mg, intravenous, q24h carbidopa-levodopa, 1 tablet, oral, 4x daily And carbidopa-levodopa, 1 half tablet, oral, 4x daily cefTRIAXone, 2 g, intravenous, q24h citalopram, 40 mg, oral, q AM clopidogrel, 75 mg, oral, Daily cyanocobalamin, 1,000 mcg, oral, Daily insulin lispro, 0-5 Units, subcutaneous, TID with meals And insulin lispro, 0-4 Units, subcutaneous, Nightly isosorbide mononitrate ER, 30 mg, oral, Daily oxybutynin XL, 10 mg, oral, q AM pregabalin, 200 mg, oral, TID primidone, 50 mg, oral, 4x daily RT heparin, 0-28 Units/kg/hr, Last Rate: 19 Units/kg/hr (07/27/23 1123) Pertinent Investigations Hematology: Results from last 7 days Lab Units 07/27/23 0646 07/26/23 1640 WBC AUTO (more content not included)... [facility] 07-26-2023 Note Hospital Medicine History and Physical 07/26/2023 5:49 PM THE HOSPITALIST TEAM PREFERS TO USE [employer] CHAT FOR COMMUNICATION 7AM-7PM. IF I DO NOT RESPOND WITHIN 15 MINUTES, PLEASE PAGE ME/CALL THROUGH THE RETAIL SOLAR ADVISOR. FROM 7PM-7AM, PLEASE PAGE [phone](COVR) Chief Complaint Dizziness History of Present Illness Mirna Quezada is an 72 y.o. female who came from home with dizziness. Patient carries history of smoking quit last week, CABG in 2000, Parkinson, spinal surgery last Sunday at [facility] and was discharged home. Prior to Sunday patient did not have any problem she denies chest pain, shortness of breath, cough, fever, 1 at or any other related symptoms on Sunday she felt unwell and dizzy, she slid off the bed without hitting her head, her called 911 and she was brought to [facility], per the note there patient was hypoxic her lungs were clear except for being diminished at bases, with no signs of volume overload status patient initially required nonrebreather, then transition to 3 L nasal cannula, CTA chest was negative for PE but showed mild bilateral pulm infiltrates, edema versus infection versus atelectasis, CT abdomen pelvis was unremarkable patient was started on vancomycin and Zosyn for presumably pneumonia, labs were significant for white count of 14.4, potassium 3.3, creatinine normal, glucose 220, AST of 1200, alk phos 229, with elevated troponin, EKG was unremarkable with no new ST changes, echo showed new reduced ejection fraction to 40%. Patient was started on heparin drip and accepted by cardiology team to be transferred to [facility] for cardiac cath evaluation. At time of my evaluation, patient was lying on bed, not in distress, on room air, vital stable, she offers no complaint. Review of System and Physical Exam Temp: [36.7 ???C (98 ???F)] 36.7 ???C (98 ???F) Heart Rate: [77] 77 Resp: [27] 27 BP: (136)/(69) 136/69 Physical Exam Constitutional: General: She is not in acute distress. Appearance: Normal appearance. She is normal weight. HENT: Head: Normocephalic and atraumatic. Cardiovascular: Rate and Rhythm: Normal rate and regular rhythm. Pulses: Normal pulses. Heart sounds: Normal heart sounds. Pulmonary: Effort: Pulmonary effort is normal. No respiratory distress. Breath sounds: Normal breath sounds. No stridor. No wheezing or rhonchi. Abdominal: General: Abdomen is flat. Bowel sounds are normal. Palpations: Abdomen is soft. Musculoskeletal: General: No swelling, tenderness, deformity or signs of injury. Normal range of motion. Skin: General: Skin is warm and dry. Neurological: General: No focal deficit present. Mental Status: She is alert and oriented to person, place, and time. Mental status is at baseline. Review of Systems All other systems reviewed and are negative. Problem List Patient Active Problem List Diagnosis Date Noted NSTEMI (non-ST elevated myocardial infarction) ([facility]) 07/26/2023 Elevated troponin 04/03/2023 Acute hypoxic respiratory failure ([facility]) 04/03/2023 Multifocal pneumonia 04/03/2023 Cigarette smoker 10/31/2022 HTN (hypertension) 10/31/2022 History of heart attack 10/31/2022 H/O Parkinson's disease 10/31/2022 Nonrheumatic aortic valve stenosis 10/31/2022 Abnormal gait 08/10/2022 Autonomic neuropathy due to type 2 diabetes mellitus ([facility]) 08/10/2022 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 08/10/2022 Carotid stenosis, bilateral 08/10/2022 Carpal tunnel syndrome, left 08/10/2022 Cigarette smoker two packs a day or less 08/10/2022 Coronary artery disease 08/10/2022 Critical ischemia of lower extremity ([facility]) 08/10/2022 Difficulty walking 08/10/2022 Hearing loss of right ear 08/10/2022 Lack of coordination 08/10/2022 Mixed conductive and sensorineural hearing loss, unilateral, right ear with restricted hearing on the contralateral side 08/10/2022 PAD (peripheral artery disease) ([facility]) 08/10/2022 Tinnitus 08/10/2022 Undifferentiated inflammatory polyarthritis ([facility]) 08/10/2022 Diabetic mononeuropathy ([facility]) 12/30/2020 Degeneration of lumbar intervertebral disc 11/18/2020 Mixed stress and urge urinary incontinence 11/12/2020 Diabetes mellitus ([facility]) 05/31/2020 Cervical myelopathy ([facility]) 05/28/2020 General weakness 03/08/2020 Muscle weakness 03/08/2020 Multiple system atrophy ([facility]) 12/10/2019 Ataxia 06/03/2019 Polyneuropathy 06/03/2019 COPD (chronic obstructive pulmonary disease) ([facility]) 03/27/2019 Decreased estrogen level 12/20/2017 Solitary pulmonary nodule 04/03/2016 Fibromyalgia 07/13/2015 Tobacco user 07/13/2015 Polyneuropathy due to type 2 diabetes mellitus ([facility]) 04/13/2015 Chronic diastolic heart failure ([facility]) 03/11/2015 Parkinson's disease ([facility]) 03/11/2015 Status post coronary artery bypass graft 03/11/2015 Seasonal allergic rhinitis 02/11/2015 Mixed anxiety depressive (more content not included)... [facility] 07-21-2023 History of Present illness Narrative Pt discharged to home with belongings via transport. Discharge instructions given. AVS understood. Pt denies having any further questions at this time. Personal items given to patient at discharge Patient/family state they have everything they were admitted with. Personal wheelchair sent home with patient as well. Physical Therapy Facility/Department: [facility] Physical Therapy Initial Assessment Name: Mirna Quezada : 1950 Date of Service: 07/21/2023 Discharge Recommendations: Patient would benefit from continued therapy after discharge Patient Diagnosis(es): There were no encounter diagnoses. Past Medical History: has a past medical history of Abnormal gait, CAD (coronary artery disease), Carpal tunnel syndrome, Cervical myelopathy ([facility]), COVID, Depression, Diabetes ([facility]), Disc degeneration, lumbar, Foot drop, left foot, Hearing loss, History of blood transfusion, History of coronary artery disease, History of MA (myocardial infarction), Hyperlipidemia, Hypertension, Lumbar disc disorder with myelopathy, MA (myocardial infarction) ([facility]), Neuropathy, Parkinson's disease ([facility]), PVD (peripheral vascular disease) ([facility]), Seasonal allergies, Spinal stenosis, Tinnitus, [...] Needs assistance (assist with shower transfers) Active Manager Training And Development: No Patient's Manager Training And Development Info: hearts ambullette Occupation: Retired Type of [...] 3-5 steps with a railing?: A Little [facility] Inpatient Mobility Raw Score : 20 [facility] Inpatient T-Scale Score : 47.67 Mobility [...] minutes Tequila Rajan PT Occupational Therapy Facility/Department: [facility] Occupational Therapy Initial Assessment Name: Mirna Qeuzada : 1950 Date of Service: 07/21/2023 Discharge Recommendations: Patient would benefit from continued therapy after discharge OT Equipment Recommendations Equipment Needed: Yes Mobility Devices: ADL Assistive Devices ADL Assistive Devices: Long-handled Shoe Horn;Sock-Aid Hard Due to recent hospitalization and medical condition, pt would benefit from additional intermittent skilled therapy at time of discharge. Please refer to the [facility] score for current functional status. KYLE [...] History of coronary artery disease, History of MA (myocardial infarction), Hyperlipidemia, Hypertension, Lumbar disc disorder with myelopathy, MA (myocardial infarction) ([facility]), Neuropathy, Parkinson's disease ([facility]), PVD (peripheral vascular disease) ([facility]), Seasonal allergies, Spinal stenosis, Tinnitus, [...] Needs assistance (assist with shower transfers) Active Manager Training And Development: No Patient's Manager Training And Development Info: hearts ambullette Occupation: Retired Type of [...] pt to demo Short Term Goal 1: I/MA for bed mob with proper log roll tech Short Term Goal 2: I/MA for ADL transfers and functional mob with AD as needed and Good safety Short Term Goal 3: I/MA for total body ADLs with AE as needed and Good safety Short Term Goal 4: I/MA for toileting routine with BSC/AD as needed [...] Minutes 39 Tx time: 23 min Upon aligner typewriter exit, call light within reach, pt retired to chair. All lines intact and patient positioned comfortably. All patient needs addressed prior to ending therapy session. Chart reviewed prior to treatment and patient is agreeable for therapy. RN reports patient is medically stable for therapy treatment this date. Merary Bocanegra OTR/L 07/21/2023 8:16 AM Mirna Quezada 1950 [id number] SUBJECTIVE: Uneventful PM per nursing, pt doing [...] lighting provided. documented in this encounter [facility] 07-20-2023 Hospital Discharge instructions Taimko Toledo RN - 07/20/2023 10:05 AM EDT [...] support you. If you have questions, call [phone] Sunday through Sunday from 7:30AM to 8:30PM to speak to a nurse. If you need to speak to someone outside of these hours, call your physician. Incision Do s and Don ts Do wash hands before and after dressing changes or when you have had any contact with your incision. Use hand sill worker or antibacterial soap. Do keep your incision [...] be sent through Care Everywhere.Lumbar Laminectomy: Post-op (Iranian)Constipation (Iranian)DVT (Deep Vein Thrombosis): General Info (Iranian)Smoking Cessation: Health Benefits: General Info (Iranian)Diabetes: Type 2 (Iranian)tizanidine (Iranian)Hydrocodone/Acetaminoph en Oral Tablet (HYDROCODONE/ACETAMINOPHEN - ORAL) (Iranian)documented in this encounter [facility] 05-25-2023 Note [facility] CARDIOLOGY PROGR ESS NOTE [...] sent a referral to vascular surgery in [place] for carotid artery stenosis. Review of Systems Musculoskeletal: Positive for arthritis, back pain, joint pain, muscle weakness, myalgias and neck pain. Neurological: Positive for weakness. All other systems reviewed and are negative. 04/19/23 previous API HPI Patient being seen via telemedicine for follow up [facility] for acute on chronic diastolic heart failure, CAD, AO stenosis, HTN. She feels good s/p hospital stay. She denies chest pain, SOB, palpitations, LE edema, and lightheadedness/syncope. No testing since [facility] discharge. Visit Vitals BP 98/60 (BP [...] mcg by mouth in the morning. HYDROcodone-acetaminophen ([place]) 10-325 mg tablet Take 1 tablet by [...] U (more content not included)... [facility] 05-25-2023 Note Patient here for 1 m o follow up chronic diastolic heart failure, CAD, and aortic valve stenosis. Had BMP last month after apt. BP yesterday at pre-surgery testing apt was 98/43. She denies chest pain, SOB, palpitations, and lightheadedness/syncope. Says PCP sent a referral to vascular surgery in [place] for carotid artery stenosis. Review of Systems Musculoskeletal: Positive for arthritis, back pain, joint pain, muscle weakness, myalgias and neck pain. Neurological: Positive for weakness. All other systems reviewed and are negative. [facility] 05-25-2023 Note 1. preoperative card iac risk stratification Patient is unable to do 4 METS without shortness of breath. Recent lexiscan showed fixed defect, no acute or reversible defects. From a cardiology perspective pt may proceed with planned spinal surgery, she is a moderate risk for a moderate to high risk surgery. [facility] 05-25-2023 Note stable [facility] 05-25-2023 Note [facility] II-III- current ly euvolemic without exacerbation Monitor daily weights, I&O, fluid restriction 1.5-2L/day, renal function and electrolytes- [facility] 05-25-2023 Note Lipid abnormalities are stable Continue lipitor 20 mg daily [facility] [facility] 05-25-2023 Note Hypertension is well controlled and continue all medications [facility] 05-24-2023 History of Present illness [...] has known cardiomyopathy, aortic stenosis, CAD s/p MA and CABG x1 in 2000, heart failure, [...] disease) Carpal tunnel syndrome left Cervical myelopathy ([facility]) COVID 01/2020 hospitalized then rehab Depression on Celexa, daughter recently Diabetes ([facility]) checks blood sugar at home,averages 130-140, managed by Dr Nicolas Disc degeneration, lumbar Foot drop, left foot usually uses a walker Hearing loss History of blood transfusion during CABG History of coronary artery disease History of MA (myocardial infarction) 1998 initially treated with Stents then had CABG in 2000 Hyperlipidemia Hypertension managed by Dr Nicolas Lumbar disc disorder with myelopathy MA (myocardial infarction) ([facility]) 04/03/2023 Pt states that they thought I was having a heart attack, but the testing was negative. Neuropathy Seasonal allergies Spinal stenosis Tinnitus Tremors of nervous system patient doesn't know the medical diagnosis but said she was told it's very close to Parkinson's Under care of service provider 02/02/2023 pcp-[place] nicolas-ovidio in [place]-last visit dec 2022 Under care of service provider 02/02/2023 [id number] [facility] - due to visit jan 2023 Under care of service provider 02/02/2023 [id number]-mkjva-pyeq in [place]-last visit dec 2022 Under care of service provider 02/02/2023 [id number]-last visit oct 2022 Under care of [...] CORONARY ARTERY BYPASS GRAFT 2000 done at [facility] SPINAL FUSION L4-5, S1 Medications Prior [...] tablets 09/04/11 Del Reilly MD nystatin (MYCOSTATIN) [id number] UNIT/GM powder Apply 1 application topically in [...] at 2:08 PM documented in this encounter DONTE MORAES [facility] 04-19-2023 Note stable [facility] 04-19-2023 Note No acute symptoms- w ill monitor with serial echocardiograms [facility] 04-19-2023 Note Coronary artery dise ase is stable No beta navdeep r/t bradycardia Continue GDMT- ASA lipitor And plavix continue risk factor modifications- heart healthy diet, regular exercise as tolerated and continue all medications. [facility] 04-19-2023 Note [facility]- II-III current ly appears euvolemic- pt denied any concering symptoms Continue GDMT- Currently euvolemic without exacerbation, no Diuretic therapy needed at this time. She has actually lost weight since DC home. Monitor daily weights, I&O, fluid restriction 1.5-2L/day, renal function and electrolytes [facility] 04-19-2023 Note [facility]TP CARDIOLOGY PROGR ESS NOTE Date of phone call: 04/19/2023 HPI Patient being seen via telemedicine for follow up [facility] for acute on chronic diastolic heart failure, CAD, AO stenosis, HTN. She feels good s/p hospital stay. She denies chest pain, SOB, palpitations, LE edema, and lightheadedness/syncope. No testing since [facility] discharge. Previous HPI: Currently pt arrived [...] was initiated by the patient and conducted [id number] with use of audio-only real time telephone [...] heart failure (CMS/HCC) Coronary artery disease involving nome coronary artery of nome heart without angina pectoris Review of Systems [...] mcg by mouth in the morning. HYDROcodone-acetaminophen (Wikieup) 10-325 mg tablet Take 1 tablet by [...] fu (more content not included)... [facility] 04-19-2023 Note Patient being seen v ia telemedicine for follow up [facility] for acute on chronic systolic heart failure. She feels good s/p hospital stay. She denies chest pain, SOB, palpitations, LE edema, and lightheadedness/syncope. No testing since [facility] discharge. Review of Systems Musculoskeletal: Positive for arthritis, back pain, joint pain, muscle weakness, myalgias and neck pain. Neurological: Positive for weakness. All other systems reviewed and are negative. [facility] 04-05-2023 Note Patient just had vis itors arrive to see her. Cancelled transport request. Provided a list of local food pantries. [facility] 04-05-2023 Note 04/05/23 7232 Admission Assessment Questions Verify insurance with patient Yes (Medicare/[place] Medicaid) Do you understand medical disease or what brought you into the hospital? Yes ( I was sent here from [facility] because they thought I had [...] Hospitalization) Private residence;Home self care (to start [facility] per new referral from [facility], Lives with , has no adult kids, Has help from Step-Son for personal vehicle advisor & Friend Christiana assists with ADL's) Does the patient have history of HHC or SNF? Yes (went to SNF in [place] about 2 yrs ago, no previous Rehab or HHC use) Assistive Device Walker;Wheelchair;Raised toilet seat (has shower chair, previously used Home O2 about 10-15 yrs ago) Patient's goal for discharge Home with [facility], new referral was sent per [facility] prior to admission Was patient reminded that goal for discharge is 11am? Yes Does the patient have transportation at discharge? No (Uses [facility] or [facility] for transportation; [place] has no availability & too late to request ride through [employer]) Type of Residence/Post Acute Needs Private residence;Home care staff ([facility]) Is PT/OT appropriate? Yes Is PT/OT ordered? Yes Is SW consult appropriate? Yes Is SW consult ordered? Yes Do you understand the benefits of MyChart? No Were you able to send link and activate MyChart? No (patient declined as she does not know how computer works) Screen completed. Medically ready for discharge. Dc Plan: Home, start [facility] per referral that was originally sent per [facility]. Working on transportation issue home to [place]. Possible taxi ride Home pending OTM Sign Letterer approval. [facility] Bedside RN would need to assist patient into taxi & patient's would need to be informed of approximate arrival time Home so that he can go outside to taxi w/ Walker or WC to assist patient into the Home. [facility] 04-05-2023 Note 2:57pm Sent the AVS to [facility]. 2:34pm Called [employer] per her request. They close at 4pm. Patient does not have any one that can come and get her. 2:21pm Met with the patient. She lives with her and plans on returning. She stated she will need help returning home and that she uses [facility]. Spoke with [facility]. They close at 4pm and are fully booked. She is active with [facility]. Will send updates. [facility] 04-05-2023 Note Physical Therapy Physical [...] neuropathy due to type 2 diabetes mellitus ([facility]) Brachial plexus neuropathy of both [...] Level of Function Prior Function Level of Moody: Needs assistance with ADLs, Needs assistance with [...] ( (more content not included)... [facility] 04-05-2023 Note Hospital Medicine Discharge Summary Final Discharge Diagnosis: Acute on chronic diastolic CHF (congestive heart failure) (CMS/[facility]) - resolved NSTEMI II in setting of HF exacerbation and acute hypoxemia 2/2 multilobular pneumonia - resolved Admission Diagnosis: Acute on chronic systolic CHF (congestive heart failure) (CMS/[facility]) [I50.23] Hospital course: Mirna Quezada is an 72 y.o. female who came from home with pastMedical history of Parkinson's disease, hypertension, DM2, hyperlipidemia, CAD s/p CABG, COPD presents to the [facility] as a direct admission from [facility] with elevated troponin and acute [...] on room air -Upon initial arrival to [facility] on 03/29/2023, patient was requiring 2 L [...] home on 04/05/23. Dear Dr. Fidencio MD, [place] is advised to follow up with you within 1-2 weeks. Follow-up with: Cardiology and CHF clinic Scheduled appointments: Future Appointments Date Time Provider Department Center 04/19/2023 2:00 PM Presley Wong NP [facility] Your medication list CONTINUE taking these [...] HYDROcodone-acetaminophen 10-325 mg tablet Commonly known as: Wikieup isosorbide mononitrate ER 30 mg 24 hr tablet Commonly known as: Imdur metFORMIN 500 mg tablet Commonly known as: Glucophage pregabalin 200 mg capsule Commonly known as: Lyrica primidone 50 mg tablet Commonly known as: Mysoline rOPINIRole 0.25 mg tablet Commonly known as: Requip tiZANidine 4 mg tablet Commonly known as: Zanaflex Mirna is allergic to augmentin [amoxicillin-pot clavulanate]. Disposition: Home-Health Care [facility] Discharge Condition: Stable Code Status: Prior Diagnostic [...] was 40 minutes. 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 Says in past no [...] Value Ventricular Rate 57 Atrial Rate 57 TX Interval 162 QRS DURATION 96 QT Interval 446 QTC CALCULATION(BAZETT) 434 P [place] 57 R-[place] 79 T Wave [place] 11 Impression Sinus bradycardia Otherwise normal ECG [...] A (more content not included)... [facility] 04-05-2023 Note Occupational Therapy Occupational Therapy Evaluation Patient Name: Mirna Quezada : 1950 Today's Date: 04/05/2023 Time In: 929 Time Out: 948 Mirna Quezada is an 72 y.o. female who came from home with pastMedical history of Parkinson's disease, hypertension, DM2, hyperlipidemia, CAD s/p CABG, COPD presents to the [facility] as a direct admission from [facility] with elevated troponin and acute [...] Spouse Home Adaptive Equipment: Walker rolling, Wheelchair-power (sc, hhs) Home Layout: One level Home Access: Ramped entrance Bathroom Shower/Tub: Tub/shower unit Prior Level of Function Prior Function Level of Moody: Needs assistance with ADLs, Needs assistance with homemaking (has PLASTIC SURGERY MANAGER 4x/w for bath, assist with dressing at times) Prior Functional Mobility: Independent with rolling walker Receives Help From: coat check attendant (4x/w for bath) ADL Assistance: ( [...] Current (more content not included)... [facility] 04-04-2023 Note Pt admitted to [facility] for acute on chronic diastolic HF; hx of Parkinson's disease, hypertension, DM2, hyperlipidemia, CAD s/p CABG, COPD. Pt has echo scheduled; previous echo from 11/03/22 estimated LVEF 50%. I will wait for current echo results to determine pt's eligibility to participate in cardiac rehab (CR) therapy with HF diagnosis and follow up with pt , if appropriate. BEENA Cowart herbicide service sales representative Outpatient Coordinator Cardiopulmonary Rehab [facility] 04-04-2023 Note Hospital Medicine Daily Progress Note - 04/04/2023 9:15 AM; Room: 5151/5151-01 Admission: 04/03/2023 8:14 PM; Length of stay: 1 days THE HOSPITALIST TEAM PREFERS TO USE [employer] CHAT FOR COMMUNICATION 7AM-7PM. IF I DO NOT RESPOND WITHIN 15 MINUTES, PLEASE PAGE ME/CALL THROUGH THE RETAIL SOLAR ADVISOR. FROM 7PM-7AM, PLEASE PAGE [phone](COVR) Code Status: DNR CC-A Barriers to Discharge: [...] on chronic diastolic CHF (congestive heart failure) ([facility]) Active Problems: COPD (chronic obstructive pulmonary disease) ([facility]) Coronary artery disease HTN (hypertension) H/O Parkinson's disease HLD (hyperlipidemia) Status post coronary artery bypass graft Type 2 diabetes mellitus without complication ([facility]) Elevated troponin Acute hypoxic respiratory failure ([facility]) Multifocal pneumonia Assessment and Plan Mirna Quezada is an 72 y.o. female who came from home with pastMedical history of Parkinson's disease, hypertension, DM2, hyperlipidemia, CAD s/p CABG, COPD presents to the [facility] as a direct admission from [facility] with elevated troponin and acute [...] on room air -Upon initial arrival to [facility] on 03/29/2023, patient was requiring 2 L [...] table (more content not included)... [facility] 04-03-2023 Note Hospital Medicine History and Physical 04/03/2023 10:32 PM THE HOSPITALIST TEAM PREFERS TO USE [employer] CHAT FOR COMMUNICATION 7AM-7PM. IF I DO NOT RESPOND WITHIN 15 MINUTES, PLEASE PAGE ME/CALL THROUGH THE RETAIL SOLAR ADVISOR. FROM 7PM-7AM, PLEASE PAGE [phone](COVR) Chief Complaint Direct admission from [facility] for elevated troponin and acute on chromic CHF History of Present Illness Mirna Quezada is an 72 y.o. female who came from home with pastMedical history of Parkinson's disease, hypertension, DM2, hyperlipidemia, CAD s/p CABG, COPD presents to the [facility] as a direct admission from [facility] with elevated troponin and acute on chronic CHF exacerbation. Patient originally went to [facility] on 03/29/2023 with a sore [...] on chronic diastolic CHF (congestive heart failure) ([facility]) 04/03/2023 Elevated troponin 04/03/2023 Acute hypoxic respiratory failure ([facility]) 04/03/2023 Multifocal pneumonia 04/03/2023 Cigarette [...] dis (more content not included)... [facility] 10-31-2022 Note [facility] She was last seen in September of [address] Jhaveri. She presents today for surgery clearance prior to lumbar laminectomy scheduled next week, 11/09 at [facility]. ECG and labs were done last week as part of preadmission testing. She denies chest pain, SOB, lightheadedness, and palpitations. Smoking less than half PPD she states. Review of Systems Respiratory: Positive for wheezing. Musculoskeletal: Positive for arthritis, back pain, joint pain, muscle weakness, myalgias and neck pain. Neurological: Positive for weakness. All other systems reviewed and are negative. [facility] 10-31-2022 Note Cardiovascular Medic ine [facility] SUBJECTIVE No chief complaint on file. [...] in the morning., Disp: , Rfl: HYDROcodone-acetaminophen (Wikieup) 10-325 mg tablet, Take 1 tablet by mouth every 8 (eight) hours., Disp: , Rfl: isosorbide mononitrate ER (Imdur) 30 mg 24 hr tablet, Take 1 tablet by mouth in the morning., Disp: , Rfl: metFORMIN XR (Glucophage-XR) 750 (more content not included)... [facility] 01-11-2022 Note [id number] [facility] 01-09-2022 Note [facility] SURGERY Clinical Discharge Summary PERSON INFORMATION Name MIRNA QUEZADA Age 71 Years 1950 Sex FEMALE Language Iranian PCP VILLA NICOLAS Marital Status Med Service Ambulatory Surgery Acct# Arrival 01/09/2022 12:18:00 Visit Reason SURGERY - LEFT CARPAL TUNNEL RELEASE Acuity NADINE 019 06:34 Address: [address] [place] [address] [address] [place] [id number] Comment: PROVIDER INFORMATION VITALS INFORMATION Vital Sign [...] Follow Below Instruc (more content not included)... 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 with myelopathy, lumbar region documented in this encounter [facility] HealthcareEvaluation noteNo assessment information availablePromedica Flower [facility] Work Phone: Evaluation note* Diagnosis Onset Date Resolution Status Carotid stenosis acute Claudication acute [facility] Work Phone: Evaluation note* Diagnosis Spinal stenosis of lumbar region with neurogenic claudication- Primary Spinal stenosis, lumbar region, with neurogenic claudication documented in this encounter [facility] Summary Purpose Family History No Family History [...] OVER PVRS AND CAROTID U/S DONE AT [facility] Reason for Visit Carotid stenosis Claudication Additional Source Comments INFORMATION SOURCE (unrecogn ized section and content) DATE CREATED AUTHOR 09/19/2017 [facility] DATE CREATED AUTHOR AUTHOR'S ORGANIZ ATION 07/16/2021 [facility] Me dical Specialist DATE CREATED AUTHOR AUTHOR'S ORGANIZ ATION 01/19/2022 [facility] DATE CREATED AUTHOR AUTHOR'S ORGANIZ ATION 07/03/2022 [facility] DATE CREATED AUTHOR AUTHOR'S ORGANIZ ATION 07/10/2023 [facility] ysician Group DATE CREATED AUTHOR AUTHOR'S ORGANIZ ATION 07/22/2023 [facility] o[facility]ital DATE CREATED AUTHOR AUTHOR'S ORGANIZ ATION 09/17/2023 [facility] DATE CREATED AUTHOR AUTHOR'S ORGANIZ ATION 10/11/2023 [facility] DATE CREATED AUTHOR AUTHOR'S ORGANIZ ATION 11/04/2023 [facility] dical Specialists EPIC Care Teams (unrecognized sec tion and content) Planting Machine Crewman Relationship Specialty Start Date End Date Villa Nicolas MD [address] [facility] [address] [place] [address] PCP - General Internal Medicine 09/27/22 Planting Machine Crewman Relationship Specialty Start Date End Date Villa Nicolas MD [address] [facility] [address] [place] [address] PCP - General Internal Medicine 09/27/22 Planting Machine Crewman Relationship Specialty Start Date End Date Villa Nicolas MD [address] [facility] [address] [place] [address] PCP - General Internal Medicine 08/15/22 Villa Nicolas MD [address] [facility] [address] [place] [address] PCP - ACO Reach 09/04/22 Montse Celestin, RN Registered Nurse Family Medicine 04/06/23 Planting Machine Crewman Relationship Specialty Start Date End Date Villa Nicolas MD [address] [facility] [address] [place] [address] PCP - General Internal Medicine 09/27/22 Team [...] July 16, 2023 End: July 16, 2023 Planting Machine Crewman Relationship Specialty Start Date End Date Villa Nicolas MD [address] [facility] [address] [place] [address] PCP - General Internal Medicine 09/27/22 Reason for Visit (unrecogniz ed section and content) Reason Onset Date Comments Med Refill 05/07/2023 Specialty Diagnoses / Procedures Referred By Contac t Referred To Contact Diagnoses Spinal stenosis of lumbar region, unspecified whether neurogenic claudication present Spinal stenosis of lumbar region, unspecified whether neurogenic claudication present [M48.061] Procedures TX LAMINECTOMY W/O FFD > 2 VERT SEG LUMBAR RE-DO L3-4 LUMBAR LAMINECTOMY Christian Webster MD [address] [facility] [address] [place] [address] [facility] [address] [place] [address] Referral ID Status Reason Start Date Expiration Date Visits Re quested Visits Authorized [id number] 1 1 Goals (unrecognized section and content) [...] Tamiko Toledo RN)2011 (Given - Provider: Milagros Mccray, KYLE) 0906 (Given - Provider: Tamiko Toledo RN)1254 [...] Laura Harris RN)1253 (NoRateChange - Provider: Felicia Herbert, ASPHALT SPREADER OPERATOR - PARTY PLAN SELLING DISTRIBUTOR) 1210 (Stopped - Provider: Tamiko Toledo RN [...] - Provider: Milagros Mccray RN) lidocaine-EPINEPHrine 1 %-1:[id number] injection (CANCELED) PRN, Starting on Sun07/20/23 at [...] BE BASED ON THE PRIMARY CLINICAL RECORDS. [facility] [employer] [facility]. provides no warranty or guarantee of the accuracy or completeness of information in this document.
--- NOTE | 2023-11-09 14:00 | CA_ITS ---
Patient Name: JAXSON QUEZADA MR#: [id number] : 1950 Exam Date: 11/09/2023 Ordering Doctor: PRESLEY COLINDRES CNP ECHOCARDIOGRAM REPORT PROCEDURE: CA ECHO DOPPLER COMPLETE INDICATIONS: Abnormal ECG, CABGx3, Parkinson's, hypertension, diabetes, smoker COMPARISON: None. DESCRIPTION: COMPLETE ECHOCARDIOGRAM Real-time transthoracic echocardiography with 2D, M-mode, spectral and color flow Doppler performed. QUALITY: Technical quality was good. LEFT VENTRICLE: Normal chamber size. Mild concentric left ventricular hypertrophy. Normal systolic function. LV EF: Normal left ventricular ejection fraction, (>55%). DIASTOLIC: Diastolic function is indeterminate. ATRIAL SEPTUM: LEFT ATRIUM: Moderate dilatation. RIGHT ATRIUM: Normal chamber size. RIGHT VENTRICLE: Normal chamber size. Normal right ventricular systolic function. TRICUSPID VALVE: Normal mobility and thickness. No stenosis with trivial regurgitation. No evidence of pulmonary hypertension. RVSP 27 mmHg MITRAL VALVE: Normal mobility and thickness. No evidence of mitral valve stenosis. Mild mitral annular calcification. No mitral regurgitation. AORTIC VALVE: Likely bicuspid aortic valve, Marley type I with fusion of the left and noncoronary cusps. Moderately calcified aortic valve. Mildly diminished mobility. Doppler velocity suggest moderate aortic valve stenosis. Peak velocity 2.55 m/s, mean gradient 13 mmHg, DVI 0.34, JULIO 1.0 cm2. Mild aortic regurgitation. AORTIC ROOT: Normal diameter [2.9 cm] and appearance. Ascending aorta is normal in size, 2.7 cm. PULMONIC VALVE: Normal thickness and mobility. No stenosis. No regurgitation. PERICARDIUM: No evidence of pericardial effusion. IVC: Collapses with inspirations. PLEURA: CONCLUSION: 1. Mild concentric left ventricular hypertrophy with normal systolic function. LVEF is estimated at 60 to 65%. 2. Normal right ventricular size and systolic function. 3. Likely bicuspid aortic valve, Marley type I with moderate stenosis and mild regurgitation. 4. Normal right-sided pressures. Adult Echocardiography Procedure Report Left Ventricle LVEDD (3.7 - 5.6 cm): 4.42 cm LVESD (2.2 - 4.0 cm): 3.30 cm LVIVS thickness (0.6 - 1.2 cm): 1.19 cm LVPW thickness (0.5 - 1.0 cm): 0.88 cm e': 0.08 m/s E - e': 12.25 LVOT Max Gradient: 2.81 mm[Hg] LVOT Area (cm2): 0.84 m/s Peak Velocity (LVOT): 0.84 m/s Mean Velocity (LVOT): 0.59 m/s LVOT Diameter 1.89 cm Left Atrium LA Volume Index (2D A2C): 45.43 ml/m2 Left Atrium Systolic Dimension: 3.10 cm Mitral Valve MV E to A Ratio: 0.96 Mitral Valve A-Wave Peak Velocity: 1.00 m/s Mitral Valve E-Wave Peak Velocity: 0.96 m/s Right Ventricle Aorta AO Root Diam: 2.93 cm Ascending Ao Diam: 2.73 cm Aortic Valve AoV Area (Peak Jarad): 0.92 cm2, 0.95 cm2 AoV Area (VTI): 1.02 cm2, 1.02 cm2 Deceleration Esmeralda: 1.85 m/s2 Pressure Half-Time: 643.05 ms Peak Velocity(Antegrade Flow): 2.46 m/s, 2.55 m/s Peak Gradient(Antegrade Flow): 24.25 mm[Hg], 25.97 mm[Hg] Mean Velocity(Antegrade Flow): 1.77 m/s, 1.64 m/s Mean Gradient(Antegrade Flow): 14.11 mm[Hg], 12.89 mm[Hg] Velocity Time Integral: 65.52 cm, 61.66 cm Tricuspid Valve Peak Velocity (Regurgitant Flow): 2.44 m/s, 2.12 m/s Pulmonic Valve Mean Gradient: 2.76 mm[Hg] Mean Velocity: 0.78 m/s Peak Velocity: 1.11 m/s, 1.23 m/s Peak Gradient: 6.01 mm[Hg], 4.92 mm[Hg] Right Atrium Right Atrium Systolic Pressure: 35.79 ml, 35.79 ml Dictated by: Ender Goff M.D. on 11/09/2023 at 19:34 Approved by: Ender Goff M.D. on 11/09/2023 at 19:40
== END 2023-11-09 13:16 | disposition home or self-care (01) ==
LOC: CARD 13:16
PROVIDERS: Visit Provider Nurse Practitioner Family
DX: R68.89 Other general symptoms and signs (principal)
CPT/HCPCS: 93306

== ENCOUNTER 2023-11-30 20:28 | Emergency (ER) | payer MEDICARE, MEDICAID, SELFPAY ==
[2023-11-30 20:32] VITALS: BP 148/60; PULSE 68; TEMP 37; O2SAT 95; BMI 21.8
--- OUTSIDE RECORDS SUMMARY | 2023-11-30 20:38 | XMS_ITS | CCD ---
Author Organization [facility] Care Team Providers Care Pump Rebuilder Name Role Phone PHYSICIAN, DEFAULT Unavailable Unavailable [...] Primary Care Provider Villa Nicolas MD Unavailable [phone] Sabi WRIGHT, Montse Unavailable MD Aron Rain Attending Provider JOSHUA Nicolas Primary Care Provider Aron Rain Attending Unavailable Aron Rain Admitting Unavailable Fidencio Villa Primary Care Unavailable TAMMYEFLINGERCHRISTIAN Admitting Unavailable HOEFLINGER, CHRISTIAN Attending Unavailable FIDECNIO VILLA B Primary Care Unavailable NICOLAS, VILLA B Primary Care Unavailable HOEFLINGER, CHRISTIAN Referring Unavailable HOEFLINGER, CHRISTIAN Referring Unavailable NICOLAS, VILLA B Primary Care Unavailable PIRKL, SELENE Referring Unavailable HORANI, CHRIS Referring Unavailable HORANI, CHRIS Referring Unavailable HORANI, CHRIS Referring Unavailable MASON, DIONE Attending Unavailable MASON, DINOE Attending Unavailable BERNADINE, PRESLEY Attending Unavailable WITHERELLROSANA [...] clavulanate; Translations: [Augmentin] Drug Allergy 0 [facility] (1 source) Penicillins Drug allergy (disorder) 0 [facility] (1 source) DULoxetine Drug Allergy 7 [facility] (1 source) OXcarbazepine Drug Allergy 7 [facility] (5 sources) DULoxetine Drug Allergy 7 Hives, Other (See Comments) [facility] (4 sources) false ragweed pollen extract / western ragweed pollen extract Drug Allergy 3 Rash, Other (See Comments) [facility] (4 sources) OXcarbazepine Drug Allergy 7 Other (See Comments) [facility] (6 sources) Amoxicillin-Pot Clavulanate; Translations: [AMOXICILLIN-POT CLAVULANATE] Propensity to adverse reactions to drug 0 Angioedema [facility] (1 source) Penicillin G Drug Allergy 3 Unknown [facility] (1 source) Mixed Ragweed Propensity to adverse reactions 3 [facility] (4 sources) Amoxicillin; Translations: [amoxicillin] Drug Allergy [address] [facility] (4 sources) Clavulanate; Translations: [clavulanic acid] Drug Allergy [address] [facility] Medications Current Medications Medication Drug Class(es) Dates [...] entacapone 200 mg oral tablet (1 source) Vlsdtfpb-P-Bycehyvbqhinagotz Inhibitor entacapone (Comtan) 200 MG tablet Take [...] tablet by mouth every eight hours HYDROcodone-acetaminophen ([place]) 10-325 MG tablet Indications: Intervertebral disc disorder [...] sources) Polyene Antifungal End: 07-20-2023 nystatin (MYCOSTATIN) 667119 UNIT/GM powder Apply 1 application topically in the morning and 1 application in the evening. 0 07/20/2023 Discontinued (Stop Taking at Discharge) nystatin (Mycost atin) 966565 UNIT/GM powder every 12 (twelve) hours. 0 [...] Start: 04-30-2014 take 1 capsule by mo deh at bedtime pregabalin (LYRICA) 200 MG capsule [...] Coronary arteriosclerosis; Translations: [Atherosclerotic heart disease of [place] coronary artery without angina pectoris] Onset: 08-10-2022 [...] and visceral atherosclerosis (20 sources) Atherosclerosis of [place] arteries of extremities with rest pain, bilateral [...] Range Facility Orders Onlyon 09-14-2023 Orders Only [id number] Abhinav Quezada W 1950 Provider Department Center 09/14/2023 KATHERINE BONDS Family History Problem Relation Age of Onset Hypertension Mother ALS Father Family Status - Relation Status Age at Mother Father [facility] 36on 09-06-2023 36 Please have her get [...] new medications, BP is okay, etc. Thanks! [facility] Telephoneon 09-06-2023 Telephone [id number] Abhinav Quezada W 1950 Provider Department Center 09/06/2023 PRESLEY HODGES Family History Problem Relation Age of Onset Hypertension Mother ALS Father Family Status - Relation Status Age at Mother Father [facility] 37on 08-28-2023 37 *Use up your current prescription of metoprolol. When this runs out, switch to new metoprolol succinate prescription that is 25 mg once day. *Plan for follow-up heart ultrasound (ECHO) in 3 months. [facility] Office Visiton 08-28-2023 Follow-up visit [id number] Abhinav Quezada W 1950 Date Provider Department Center 08/28/2023 PRESLEY HODGES CARD [facility] Family History Problem Relation Age of Onset Hypertension Mother ALS Father Family Status - Relation Status Age at Mother Father Level of Service:93225 ME OFFICE/OUTPATIENT ESTABLISHED MOD MDM 30 MIN Reason for Visit and Comments: Coronary Artery Disease [187] Congestive Heart Failure [127] Hospital Follow-up [832] NSTEMI [Other] [facility] Orders Onlyon 08-28-2023 Orders Only [id number] Abhinav Quezada W 1950 Date Provider Department Center 08/28/2023 KATHERINE BONDS CARD [facility] Family History Problem Relation Age of Onset Hypertension Mother ALS Father Family Status - Relation Status Age at Mother Father [facility] BASIC METABOLIC PANELon 05-0 Anion gap [Moles/Vol] 10 mmol/L Normal 7-20 [facility] Comment on above: Performed By: #### L [id number] #### [facility] ([facility]) [address] [place] [address] Calcium [Mass/Vol] 8.6 mg/dL Normal 8.6-10.3 [facility] Comment on above: Performed By: #### L [id number] #### [facility] ([facility]) [address] [place] [address] Chloride [Moles/Vol] 106 mmol/L Normal 98-107 [facility] Comment on above: Performed By: #### L [id number] #### [facility] ([facility]) [address] [place] [address] CO2 [Moles/Vol] 24 mmol/L Normal 21-31 [facility] Comment on above: Performed By: #### L [id number] #### [facility] ([facility]) [address] [place] [address] Creatinine [Mass/Vol] 0.66 mg/dL Normal 0.60-1.20 [facility] Comment on above: Performed By: #### L [id number] #### [facility] ([facility]) [address] [place] [address] GLOMERULAR FILTRATION RATE ML/MIN/1.73 SQ M.PREDICTED 93.1 mL/min/1.73m*2 Normal >60.0 [facility] Comment on above: Result Comment: [facility]???s estimated glomerular filtration rate (eGFR) will no [...] group of individuals. Performed By: #### L [id number] #### [facility] ([facility]) [address] [facility] [place] [address] Glucose [Mass/Vol] 131 mg/dL High 70-100 [facility] Comment on above: Performed By: #### L [id number] #### [facility] ([facility]) [address] [place] [address] Potassium [Moles/Vol] 4.3 mmol/L Normal 3.5-5.1 [facility] Comment on above: Performed By: #### L [id number] #### [facility] ([facility]) [address] [place] [address] Sodium [Moles/Vol] 136 mmol/L Normal 136-145 [facility] Comment on above: Performed By: #### L [id number] #### [facility] ([facility]) [address] [place] [address] Urea nitrogen [Mass/Vol] 22 mg/dL Normal 7-25 [facility] Comment on above: Performed By: #### L [id number] #### [facility] ([facility]) [address] [place] [address] UREA NITROGEN/CREATININE (MASS RATIO) IN SER/PLAS 33.3 Normal [facility] Comment on above: Performed By: #### L [id number] #### [facility] ([facility]) [address] [place] [address] CBCon 07-31-2023 Erythrocyte distribution width (RBC) [Ratio] 14.0 % Normal 11.5-15.0 [facility] Comment on above: Performed By: #### L [id number] #### [facility] ([facility]) [address] [place] [address] ERYTHROCYTE MEAN CORPUSCULAR HEMOGLOBIN CONCENTRATION (G/DL) BY AUTOMATED 33.8 g/dL Normal 32.0-35.0 [facility] Comment on above: Performed By: #### L [id number] #### [facility] ([facility]) [address] [place] [address] Hematocrit (Bld) [Volume fraction] 40.5 % Normal 36.0-48.0 [facility] Comment on above: Performed By: #### L [id number] #### [facility] ([facility]) [address] [place] [address] Hemoglobin (Bld) [Mass/Vol] 13.7 g/dL Normal 12.0-15.0 [facility] Comment on above: Performed By: #### L [id number] #### [facility] ([facility]) [address] [place] [address] MCH (RBC) [Entitic mass] 32.5 pg Normal 27.0-33.0 [facility] Comment on above: Performed By: #### L [id number] #### [facility] [address] [place] [address] MCV (RBC) [Entitic vol] 96.2 fL Normal 82.0-98.0 [facility] Comment on above: Performed By: #### L [id number] #### [facility] ([facility] [address] [place] [address] PLATELETS (10*3/UL) IN BLOOD AUTOMATED COUNT 209 10*3/uL Normal 150-400 [facility] Comment on above: Performed By: #### L [id number] #### [facility] ([facility]) [address] [place] [address] RBC (Bld) [#/Vol] 4.21 10*6/uL Normal 3.80-5.00 [facility] Comment on above: Performed By: #### L [id number] #### [facility] ([facility]) [address] [place] [address] WBC (Bld) [#/Vol] 8.83 10*3/uL Normal 4.00-10.60 [facility] Comment on above: Performed By: #### L [id number] #### [facility] ([facility]) [address] [place] [address] MAGNESIUMon 07-31-2023 Magnesium [Mass/Vol] 1.5 mg/dL Low 1.9-2.7 [facility] Comment on above: Performed By: #### L [id number] #### [facility] ([facility]) [address] [place] [address] NURSNOTEon 07-31-2023 NURSNOTE Report given to transport, pt discharged to home via stretcher with [facility] NURSNOTE AVS reviewed with pt , pt verbalizes understanding [facility] POCT GLUCOSE METER UNSOLICIT ED RESULTSon 07-31-2023 Glucose [Mass/Vol] 195 mg/dL High 70-105 [facility] Comment on above: Order Comment: Waive d Testing in the ED is performed under the ED CLIA certificate #[id number]. Result Comment: [email or web address] Performed By: #### L [id number] #### [facility] ([facility]) [address] [place] [address] Glucose [Mass/Vol] 170 mg/dL High 70-105 [facility] Comment on above: Order Comment: Waive d Testing in the ED is performed under the ED CLIA certificate #[id number]. Result Comment: [email or web address] Performed By: #### L [id number] #### [facility] ([facility]) [address] [place] [address] 30on 07-30-2023 30 The patient is Moderately Stable - Low risk of patient condition declining or worsening The patient's goals for the shift include comfort, rest The clinical goals for the shift include stable vitals, no bleeding Normal [facility] 30 The patient is Moderately Stable - [...] without S/S of infection Outcome: Progressing Normal [facility] BASIC METABOLIC PANELon 05-0 Anion gap [Moles/Vol] 11 mmol/L Normal 7-20 [facility] Comment on above: Performed By: #### L [id number] #### [facility] ([facility]) [address] [place] [address] Calcium [Mass/Vol] 9.0 mg/dL Normal 8.6-10.3 [facility] Comment on above: Performed By: #### L [id number] #### [facility] ([facility]) [address] [place] [address] Chloride [Moles/Vol] 105 mmol/L Normal 98-107 [facility] Comment on above: Performed By: #### L [id number] #### [facility] ([facility] [address] [place] [address] CO2 [Moles/Vol] 28 mmol/L Normal 21-31 [facility] Comment on above: Performed By: #### L [id number] #### [facility] ([facility]) [address] [place] [address] Creatinine [Mass/Vol] 0.97 mg/dL Normal 0.60-1.20 [facility] Comment on above: Performed By: #### L [id number] #### [facility] ([facility]) [address] [place] [address] GLOMERULAR FILTRATION RATE ML/MIN/1.73 SQ M.PREDICTED 62.1 mL/min/1.73m*2 Normal >60.0 [facility] Comment on above: Result Comment: [facility]???s estimated glomerular filtration rate (eGFR) will no [...] group of individuals. Performed By: #### L [id number] #### [facility] ([facility]) [address] [place] [address] Glucose [Mass/Vol] 141 mg/dL High 70-100 [facility] Comment on above: Performed By: #### L [id number] #### [facility] ([facility]) [address] [place] [address] Potassium [Moles/Vol] 4.7 mmol/L Normal 3.5-5.1 [facility] Comment on above: Performed By: #### L [id number] #### [facility] ([facility]) [address] [place] [address] Sodium [Moles/Vol] 139 mmol/L Normal 136-145 [facility] Comment on above: Performed By: #### L [id number] #### [facility] ([facility]ER) [address] [place] [address] Urea nitrogen [Mass/Vol] 28 mg/dL High 7-25 [facility] Comment on above: Performed By: #### L [id number] #### [facility] ([facility] [address] [place] [address] UREA NITROGEN/CREATININE (MASS RATIO) IN SER/PLAS 28.9 Normal [facility] Comment on above: Performed By: #### L [id number] #### [facility] ([facility]) [address] [place] [address] CBCon 07-30-2023 Erythrocyte distribution width (RBC) [Ratio] 14.1 % Normal 11.5-15.0 [facility] Comment on above: Performed By: #### L [id number] #### [facility] ([facility] [address] [place] [address] ERYTHROCYTE MEAN CORPUSCULAR HEMOGLOBIN CONCENTRATION (G/DL) BY AUTOMATED 33.1 g/dL Normal 32.0-35.0 [facility] Comment on above: Performed By: #### L [id number] #### [facility] ([facility] [address] [place] [address] Hematocrit (Bld) [Volume fraction] 42.9 % Normal 36.0-48.0 [facility] Comment on above: Performed By: #### L [id number] #### [facility] ([facility]) [address] [place] [address] Hemoglobin (Bld) [Mass/Vol] 14.2 g/dL Normal 12.0-15.0 [facility] Comment on above: Performed By: #### L [id number] #### [facility] ([facility]ER) [address] [place] [address] MCH (RBC) [Entitic mass] 32.2 pg Normal 27.0-33.0 [facility] Comment on above: Performed By: #### L [id number] #### [facility] ([facility]) [address] [place] [address] MCV (RBC) [Entitic vol] 97.3 fL Normal 82.0-98.0 [facility] Comment on above: Performed By: #### L [id number] #### [facility] ([facility]) [address] [place] [address] PLATELETS (10*3/UL) IN BLOOD AUTOMATED COUNT 224 10*3/uL Normal 150-400 [facility] Comment on above: Performed By: #### L [id number] #### [facility] ([facility]) [address] [place] [address] RBC (Bld) [#/Vol] 4.41 10*6/uL Normal 3.80-5.00 [facility] Comment on above: Performed By: #### L [id number] #### [facility] ([facility]) [address] [place] [address] WBC (Bld) [#/Vol] 8.50 10*3/uL Normal 4.00-10.60 [facility] Comment on above: Performed By: #### L [id number] #### [facility] ([facility]) [address] [place] [address] HPon 07-30-2023 HP H&P reviewed. The patient [...] to avoid use of closure device. Normal [facility] NURSNOTEon 07-30-2023 NURSNOTE Report given to KYLE Jon from [facility] WRIGHT Any medications or safety alerts were reviewed. Any pending diagnostics and notifications were also reviewed, as well as any safety concerns or issues, abnormal labs, abnormal imagining, and abnormal assessment findings. Questions were answered. Normal [facility] POCT GLUCOSE METER UNSOLICIT ED RESULTSon 07-30-2023 Glucose [Mass/Vol] 140 mg/dL High 70-105 [facility] Comment on above: Order Comment: Waive d Testing in the ED is performed under the ED CLIA certificate #[id number]. Result Comment: [email or web address] Performed By: #### L [id number] #### [facility] ([facility]) [address] [place] [address] Glucose [Mass/Vol] 116 mg/dL High 70-105 [facility] Comment on above: Order Comment: Waive d Testing in the ED is performed under the ED CLIA certificate #[id number]. Result Comment: [email or web address] Performed By: #### L [id number] #### [facility] ([facility] [address] [place] [address] Glucose [Mass/Vol] 179 mg/dL High 70-105 [facility] Comment on above: Order Comment: Waive d Testing in the ED is performed under the ED CLIA certificate #[id number]. Result Comment: [email or web address] Performed By: #### L [id number] #### [facility] ([facility]) [address] [place] [address] TROPONIN Ion 07-30-2023 Troponin I.cardiac [Mass/Vol] 0.21 ng/mL Critically high 0.00-0.04 [facility] Comment on above: Result Comment: Prev ious result verified on 07/29/2023 1859 on specimen/case [id number] called with component Troponin I for procedure Troponin I with value 0.34 ng/mL. Performed By: #### L [id number] #### [facility] ([facility]) [address] [place] [address] 30on 07-29-2023 30 The patient is Moderately [...] and maintained or improved Outcome: Progressing Normal [facility] BASIC METABOLIC PANELon 05-0 Anion gap [Moles/Vol] 11 mmol/L Normal 7-20 [facility] Comment on above: Performed By: #### L [id number] #### [facility] ([facility]) [address] [place] [address] Calcium [Mass/Vol] 8.8 mg/dL Normal 8.6-10.3 [facility] Comment on above: Performed By: #### L [id number] #### [facility] ([facility]) [address] [place] [address] Chloride [Moles/Vol] 105 mmol/L Normal 98-107 [facility] Comment on above: Performed By: #### L [id number] #### [facility] ([facility]) [address] [place] [address] CO2 [Moles/Vol] 26 mmol/L Normal 21-31 [facility] Comment on above: Performed By: #### L [id number] #### [facility] ([facility] [address] [place] [address] Creatinine [Mass/Vol] 0.71 mg/dL Normal 0.60-1.20 [facility] Comment on above: Performed By: #### L [id number] #### [facility] ([facility]) [address] [place] [address] GLOMERULAR FILTRATION RATE ML/MIN/1.73 SQ M.PREDICTED 90.3 mL/min/1.73m*2 Normal >60.0 [facility] Comment on above: Result Comment: [facility]???s estimated glomerular filtration rate (eGFR) will no [...] group of individuals. Performed By: #### L [id number] #### [facility] ([facility]) [address] [place] [address] Glucose [Mass/Vol] 136 mg/dL High 70-100 [facility] Comment on above: Performed By: #### L [id number] #### [facility] ([facility]) [address] [place] [address] Potassium [Moles/Vol] 3.9 mmol/L Normal 3.5-5.1 [facility] Comment on above: Performed By: #### L [id number] #### [facility] ([facility]) [address] [place] [address] Sodium [Moles/Vol] 138 mmol/L Normal 136-145 [facility] Comment on above: Performed By: #### L [id number] #### [facility] ([facility]) [address] [place] [address] Urea nitrogen [Mass/Vol] 21 mg/dL Normal 7-25 [facility] Comment on above: Performed By: #### L [id number] #### [facility] ([facility]) [address] [place] [address] UREA NITROGEN/CREATININE (MASS RATIO) IN SER/PLAS 29.6 Normal [facility] Comment on above: Performed By: #### L [id number] #### [facility] ([facility]) [address] [place] [address] CBCon 07-29-2023 Erythrocyte distribution width (RBC) [Ratio] 14.3 % Normal 11.5-15.0 [facility] Comment on above: Performed By: #### L [id number] #### [facility] ([facility]) [address] [place] [address] ERYTHROCYTE MEAN CORPUSCULAR HEMOGLOBIN CONCENTRATION (G/DL) BY AUTOMATED 34.4 g/dL Normal 32.0-35.0 [facility] Comment on above: Performed By: #### L [id number] #### [facility] ([facility]) [address] [place] [address] Hematocrit (Bld) [Volume fraction] 40.4 % Normal 36.0-48.0 [facility] Comment on above: Performed By: #### L [id number] #### [facility] ([facility]) [address] [place] [address] Hemoglobin (Bld) [Mass/Vol] 13.9 g/dL Normal 12.0-15.0 [facility] Comment on above: Performed By: #### L [id number] #### [facility] ([facility]) [address] [place] [address] MCH (RBC) [Entitic mass] 33.3 pg High 27.0-33.0 [facility] Comment on above: Performed By: #### L [id number] #### [facility] ([facility]) [address] [place] [address] MCV (RBC) [Entitic vol] 96.9 fL Normal 82.0-98.0 [facility] Comment on above: Performed By: #### L [id number] #### [facility] ([facility]) [address] [place] [address] PLATELETS (10*3/UL) IN BLOOD AUTOMATED COUNT 216 10*3/uL Normal 150-400 [facility] Comment on above: Performed By: #### L [id number] #### [facility] ([facility] [address] [place] [address] RBC (Bld) [#/Vol] 4.17 10*6/uL Normal 3.80-5.00 [facility] Comment on above: Performed By: #### L [id number] #### [facility] ([facility]) [address] [place] [address] WBC (Bld) [#/Vol] 8.45 10*3/uL Normal 4.00-10.60 [facility] Comment on above: Performed By: #### L [id number] #### [facility] ([facility]) [address] [place] [address] POCT GLUCOSE METER UNSOLICIT ED RESULTSon 07-29-2023 Glucose [Mass/Vol] 175 mg/dL High 70-105 [facility] Comment on above: Order Comment: Waive d Testing in the ED is performed under the ED CLIA certificate #[id number]. Result Comment: [email or web address] Performed By: #### L [id number] #### [facility] ([facility]) [address] [place] [address] Glucose [Mass/Vol] 164 mg/dL High 70-105 [facility] Comment on above: Order Comment: Waive d Testing in the ED is performed under the ED CLIA certificate #[id number]. Result Comment: [email or web address] Performed By: #### L [id number] #### [facility] ([facility]) [address] [place] [address] Glucose [Mass/Vol] 166 mg/dL High 70-105 [facility] Comment on above: Order Comment: Waive d Testing in the ED is performed under the ED CLIA certificate #[id number]. Result Comment: [email or web address] Performed By: #### L [id number] #### [facility] ([facility]) [address] [place] [address] Glucose [Mass/Vol] 134 mg/dL High 70-105 [facility] Comment on above: Order Comment: Waive d Testing in the ED is performed under the ED CLIA certificate #[id number]. Result Comment: [email or web address] Performed By: #### L [id number] ####[facility] ([facility])[address] [place] [address] TROPONIN Ion 07-29-2023 Troponin I.cardiac [Mass/Vol] 0.31 ng/mL Critically high 0.00-0.04 [facility] Comment on above: Result Comment: M-ME EVIOUS CRITICAL RESULT Previous result verified on 07/29/2023 1859 on specimen/case [id number] called with component Troponin I for procedure Troponin I with value 0.34 ng/mL. Performed By: #### L [id number] #### [facility] ([facility]) [address] [place] [address] Troponin I.cardiac [Mass/Vol] 0.34 ng/mL Critically high 0.00-0.04 [facility] Comment on above: Performed By: #### L [id number] #### [facility] ([facility]) [address] [place] [address] Troponin I.cardiac [Mass/Vol] 0.33 ng/mL Critically high 0.00-0.04 [facility] Comment on above: Result Comment: Prev ious result verified on 07/28/2023 181 on specimen/case [id number] called with component Troponin I for procedure Troponin I with value 0.55 ng/mL. Performed By: #### L [id number] #### [facility] ([facility]) [address] [place] [address] Troponin I.cardiac [Mass/Vol] 0.42 ng/mL Critically high 0.00-0.04 [facility] Comment on above: Result Comment: Prev ious result verified on 07/28/2023 181 on specimen/case [id number] called with component Troponin I for procedure Troponin I with value 0.55 ng/mL. Performed By: #### L [id number] #### [facility] ([facility]) [address] [place] [address] Troponin I.cardiac [Mass/Vol] 0.58 ng/mL Critically high 0.00-0.04 [facility] Comment on above: Result Comment: M-ME EVIOUS CRITICAL RESULT Previous result verified on 07/28/20231813 on specimen/case [id number] called with component Troponin I for procedure Troponin I with value 0.55 ng/mL. Performed By: #### L [id number] #### [facility] ([facility]) [address] [place] [address] 30on 07-28-2023 30 The patient is Moderately [...] socks applied, bed alarm/chair alarm on. Normal [facility] BASIC METABOLIC PANELon 05-0 Anion gap [Moles/Vol] 13 mmol/L Normal 7-20 [facility] Comment on above: Performed By: #### L [id number] #### [facility] ([facility]) [address] [place] [address] Calcium [Mass/Vol] 8.6 mg/dL Normal 8.6-10.3 [facility] Comment on above: Performed By: #### L [id number] #### [facility] ([facility]) [address] [place] [address] Chloride [Moles/Vol] 107 mmol/L Normal 98-107 [facility] Comment on above: Performed By: #### L [id number] #### [facility] ([facility]) [address] [place] [address] CO2 [Moles/Vol] 23 mmol/L Normal 21-31 [facility] Comment on above: Performed By: #### L [id number] #### [facility] ([facility]) [address] [place] [address] Creatinine [Mass/Vol] 0.65 mg/dL Normal 0.60-1.20 [facility] Comment on above: Performed By: #### L [id number] #### [facility] ([facility]) [address] [place] [address] GLOMERULAR FILTRATION RATE ML/MIN/1.73 SQ M.PREDICTED 93.5 mL/min/1.73m*2 Normal >60.0 [facility] Comment on above: Result Comment: [facility]???s estimated glomerular filtration rate (eGFR) will no [...] individuals. Performed By: #### L [id number] #### [facility] ([facility]) [address] [place] [address] Glucose [Mass/Vol] 135 mg/dL High 70-100 [facility] Comment on above: Performed By: #### L [id number] #### [facility] ([facility]) [address] [place] [address] Potassium [Moles/Vol] 4.1 mmol/L Normal 3.5-5.1 [facility] Comment on above: Performed By: #### L [id number] #### [facility] ([facility]) [address] [place] [address] Sodium [Moles/Vol] 139 mmol/L Normal 136-145 [facility] Comment on above: Performed By: #### L [id number] #### [facility] ([facility]) [address] [place] [address] Urea nitrogen [Mass/Vol] 16 mg/dL Normal 7-25 [facility] Comment on above: Performed By: #### L [id number] #### [facility] ([facility]) [address] [place] [address] UREA NITROGEN/CREATININE (MASS RATIO) IN SER/PLAS 24.6 Normal [facility] Comment on above: Performed By: #### L [id number] #### [facility] ([facility]) [address] [place] [address] CBCon 07-28-2023 Erythrocyte distribution width (RBC) [Ratio] 14.1 % Normal 11.5-15.0 [facility] Comment on above: Performed By: #### L [id number] #### [facility] ([facility]) [address] [place] [address] ERYTHROCYTE MEAN CORPUSCULAR HEMOGLOBIN CONCENTRATION (G/DL) BY AUTOMATED 33.5 g/dL Normal 32.0-35.0 [facility] Comment on above: Performed By: #### L [id number] #### [facility] ([facility]) [address] [place] [address] Hematocrit (Bld) [Volume fraction] 40.6 % Normal 36.0-48.0 [facility] Comment on above: Performed By: #### L [id number] #### [facility] ([facility]) [address] [place] [address] Hemoglobin (Bld) [Mass/Vol] 13.6 g/dL Normal 12.0-15.0 [facility] Comment on above: Performed By: #### L [id number] #### [facility] ([facility]) [address] [place] [address] MCH (RBC) [Entitic mass] 32.6 pg Normal 27.0-33.0 [facility] Comment on above: Performed By: #### L [id number] #### [facility] ([facility]) [address] [place] [address] MCV (RBC) [Entitic vol] 97.4 fL Normal 82.0-98.0 [facility] Comment on above: Performed By: #### L [id number] #### [facility] ([facility]) [address] [place] [address] PLATELETS (10*3/UL) IN BLOOD AUTOMATED COUNT 199 10*3/uL Normal 150-400 [facility] Comment on above: Performed By: #### L [id number] #### [facility] ([facility]) [address] [place] [address] RBC (Bld) [#/Vol] 4.17 10*6/uL Normal 3.80-5.00 [facility] Comment on above: Performed By: #### L [id number] #### [facility] ([facility]) [address] [address] WBC (Bld) [#/Vol] 7.57 10*3/uL Normal 4.00-10.60 [facility] Comment on above: Performed By: #### L [id number] #### [facility] ([facility]) [address] [place] [address] NURSNOTEon 07-28-2023 DEAN Spoke with Desiree in [employer]. She states there are no [employer] pumps at this time yet and does not know when they will arrive back in stock. Normal [facility] POCT GLUCOSE METER UNSOLICIT ED RESULTSon 07-28-2023 Glucose [Mass/Vol] 138 mg/dL High 70-105 [facility] Comment on above: Order Comment: Waive d Testing in the ED is performed under the ED CLIA certificate #[id number]. Result Comment: [email or web address] Performed By: #### L [id number] #### [facility] ([facility]) [address] [place] [address] Glucose [Mass/Vol] 111 mg/dL High 70-105 [facility] Comment on above: Order Comment: Waive d Testing in the ED is performed under the ED CLIA certificate #[id number]. Result Comment: [email or web address] Performed By: #### L [id number] #### [facility] ([facility]) [address] [place] [address] Glucose [Mass/Vol] 220 mg/dL High 70-105 [facility] Comment on above: Order Comment: Waive d Testing in the ED is performed under the ED CLIA certificate #[id number]. Result Comment: [email or web address] Performed By: #### L [id number] #### [facility] ([facility]) [address] [place] [address] Glucose [Mass/Vol] 147 mg/dL High 70-105 [facility] Comment on above: Order Comment: Waive d Testing in the ED is performed under the ED CLIA certificate #[id number]. Result Comment: [email or web address] Performed By: #### L [id number] #### [facility] ([facility]) [address] [place] [address] TROPONIN Ion 07-28-2023 Troponin I.cardiac [Mass/Vol] 0.55 ng/mL Critically high 0.00-0.04 [facility] Comment on above: Order Comment: Previ ous result verified on 07/27/20231748 on specimen/case [id number] called with component Troponin I for procedure Troponin I with value 1.02 ng/mL. Result Comment: M-ME EVIOUS CRITICAL RESULT Performed By: #### L [id number] ####[facility] ([facility])[address] [place] [address] Troponin I.cardiac [Mass/Vol] 0.56 ng/mL Critically high 0.00-0.04 [facility] Comment on above: Result Comment: M-ME EVIOUS CRITICAL RESULT Previous result verified on 07/27/20231748 on specimen/case [id number] called with component Troponin I for procedure Troponin I with value 1.02 ng/mL. Performed By: #### L [id number] #### [facility] ([facility]) [address] [place] [address] Troponin I.cardiac [Mass/Vol] 0.67 ng/mL Critically high 0.00-0.04 [facility] Comment on above: Result Comment: Prev ious result verified on 07/27/20231748 on specimen/case [id number] called with component Troponin I for procedure Troponin I with value 1.02 ng/mL. Performed By: #### L [id number] #### [facility] ([facility]) [address] [place] [address] 30on 07-27-2023 30 The patient is Moderately [...] for signs of decreased cardiac output Normal [facility] ANTI-XA (HEPARIN LEVEL)on HEPARIN UNFRACTIONATED (U/ML) IN PPP BY CHROMOGENIC METHOD 0.17 IU/mL Low 0.3-0.7 [facility] Comment on above: Result Comment: Renuka roxaban and Apixaban will interfere with the anti Xa assay used to monitor UFH and LMWH. Performed By: #### L [id number] ####[facility] ([facility])[address] [place] [address] BASIC METABOLIC PANELon Anion gap [Moles/Vol] 10 mmol/L Normal 7-20 [facility] Comment on above: Performed By: #### L [id number] #### [facility] ([facility]) [address] [place] [address] Calcium [Mass/Vol] 8.6 mg/dL Normal 8.6-10.3 [facility] Comment on above: Performed By: #### L [id number] #### [facility] ([facility]) [address] [place] [address] Chloride [Moles/Vol] 106 mmol/L Normal 98-107 [facility] Comment on above: Performed By: #### L [id number] #### [facility] ([facility]) [address] [place] [address] CO2 [Moles/Vol] 27 mmol/L Normal 21-31 [facility] Comment on above: Performed By: #### L [id number] #### [facility] ([facility]) [address] [place] [address] Creatinine [Mass/Vol] 0.66 mg/dL Normal 0.60-1.20 [facility] Comment on above: Performed By: #### L [id number] #### [facility] ([facility]) [address] [place] [address] GLOMERULAR FILTRATION RATE ML/MIN/1.73 SQ M.PREDICTED 93.1 mL/min/1.73m*2 Normal >60.0 [facility] Comment on above: Result Comment: [facility]???s estimated glomerular filtration rate (eGFR) will no [...] group of individuals. Performed By: #### L [id number] #### [facility] ([facility]) [address] [place] [address] Glucose [Mass/Vol] 154 mg/dL High 70-100 [facility] Comment on above: Performed By: #### L [id number] #### [facility] ([facility] [address] [place] [address] Potassium [Moles/Vol] 4.2 mmol/L Normal 3.5-5.1 [facility] Comment on above: Performed By: #### L [id number] #### [facility] ([facility] [address] [place] [address] Sodium [Moles/Vol] 139 mmol/L Normal 136-145 [facility] Comment on above: Performed By: #### L [id number] #### [facility] ([facility]) [address] [place] [address] Urea nitrogen [Mass/Vol] 13 mg/dL Normal 7-25 [facility] Comment on above: Performed By: #### L [id number] #### [facility] ([facility]) [address] [place] [address] UREA NITROGEN/CREATININE (MASS RATIO) IN SER/PLAS 19.7 Normal [facility] Comment on above: Performed By: #### L [id number] #### [facility] ([facility]) [address] [place] [address] CBCon 07-27-2023 Erythrocyte distribution width (RBC) [Ratio] 14.1 % Normal 11.5-15.0 [facility] Comment on above: Performed By: #### L [id number] ####[facility] ([facility] [place] [address] ERYTHROCYTE MEAN CORPUSCULAR HEMOGLOBIN CONCENTRATION (G/DL) BY AUTOMATED 33.9 g/dL Normal 32.0-35.0 [facility] Comment on above: Performed By: #### L [id number] ####[facility] ([facility] [place] [address] Hematocrit (Bld) [Volume fraction] 39.2 % Normal 36.0-48.0 [facility] Comment on above: Performed By: #### L [id number] ####[facility] ([facility] [place] [address] Hemoglobin (Bld) [Mass/Vol] 13.3 g/dL Normal 12.0-15.0 [facility] Comment on above: Performed By: #### L [id number] ####[facility] ([facility])[address] [place] [address] MCH (RBC) [Entitic mass] 32.2 pg Normal 27.0-33.0 [facility] Comment on above: Performed By: #### L [id number] ####[facility] ([facility])[address] [place], [place] [address] MCV (RBC) [Entitic vol] 94.9 fL Normal 82.0-98.0 [facility] Comment on above: Performed By: #### L [id number] ####[facility] ([facility])[address] [place] [address] PLATELETS (10*3/UL) IN BLOOD AUTOMATED COUNT 197 10*3/uL Normal 150-400 [facility] Comment on above: Performed By: #### L [id number] ####[facility] ([facility] [place] [address] RBC (Bld) [#/Vol] 4.13 10*6/uL Normal 3.80-5.00 [facility] Comment on above: Performed By: #### L [id number] ####[facility] ([facility] [place] [address] WBC (Bld) [#/Vol] 10.87 10*3/uL High 4.00-10.60 [facility] Comment on above: Performed By: #### L [id number] ####[facility] ([facility])[address] [place] [address] HEMOGLOBIN A1Con 07-27-2023 Glucose [Mass/Vol] 137 mg/dL Normal [facility] Comment on above: Performed By: #### L [id number] ####[facility] ([facility])[address] [place] [address] HbA1c (Bld) [Mass fraction] 6.4 % High 4.0-6.0 [facility] Comment on above: Performed By: #### L [id number] ####[facility] ([facility])[address] [facility] [place] [address] HEPATIC FUNCTION PANELon Albumin [Mass/Vol] 3.3 g/dL Low 3.5-5.7 [facility] Comment on above: Performed By: #### L [id number] #### [facility] ([facility]) [address] [place] [address] ALP [Catalytic activity/Vol] 113 U/L High 34-104 [facility] Comment on above: Performed By: #### L [id number] #### [facility] ([facility]) [address] [place] [address] ALT [Catalytic activity/Vol] 8 U/L Normal 7-52 [facility] Comment on above: Performed By: #### L [id number] #### [facility] ([facility]) [address] [place] [address] AST [Catalytic activity/Vol] 23 U/L Normal 13-39 [facility] Comment on above: Performed By: #### L [id number] #### [facility] ([facility]) [address] [place] [address] Bilirubin [Mass/Vol] 0.3 mg/dL Normal 0.3-1.0 [facility] Comment on above: Performed By: #### L [id number] #### [facility] ([facility]) [address] [place] [address] Magnesium [Mass/Vol] 0.0 mg/dL Normal 0-0.2 [facility] Comment on above: Performed By: #### L [id number] #### [facility] ([facility]) [address] [place] [address] Protein [Mass/Vol] 5.8 g/dL Low 6.0-8.3 [facility] Comment on above: Performed By: #### L [id number] #### [facility] ([facility] [address] [place] [address] LIPID PANELon 07-27-2023 CHOL/HDL 2.7 mg/dL Normal [facility] Comment on above: Performed By: #### L [id number] #### [facility] ([facility]) [address] [place] [address] Cholesterol [Mass/Vol] 134 mg/dL Normal 120-200 [facility] Comment on above: Performed By: #### L [id number] #### [facility] ([facility]) [address] [place] [address] Magnesium [Mass/Vol] 120 mg/dL Normal 40-149 [facility] Comment on above: Result Comment: TRIG LYCERIDE REFERENCE RANGE: 20 YEARS AND OLDER CARDIOVASCULAR RISK LESS THAN 150 mg/dL LOW RISK 150 TO 199 mg/dL BORDERLINE RISK 200 mg/dL AND GREATER HIGH RISK Performed By: #### L [id number] #### [facility] ([facility]) [address] [place] [address] Magnesium [Mass/Vol] 60 mg/dL Normal 0-160 [facility] Comment on above: Performed By: #### L [id number] #### [facility] ([facility]) [address] [place] [address] Magnesium [Mass/Vol] 50 mg/dL Normal 23-92 [facility] Comment on above: Performed By: #### L [id number] #### [facility] ([facility]) [address] [place] [address] NON HDL CHOL. (LDL+VLDL) 84 Normal [facility] Comment on above: Performed By: #### L [id number] #### [facility] [address] [place] [address] TOTAL VLDL-C 24 mg/dL Normal 0-40 [facility] Comment on above: Performed By: #### L [id number] #### [facility] ([facility] [address] [place] [address] POCT GLUCOSE METER UNSOLICIT ED RESULTSon 07-27-2023 Glucose [Mass/Vol] 178 mg/dL High 70-105 [facility] Comment on above: Order Comment: Waive d Testing in the ED is performed under the ED CLIA certificate #[id number]. Result Comment: [email or web address] Performed By: #### L [id number] #### [facility] ([facility]) [address] [place] [address] Glucose [Mass/Vol] 173 mg/dL High 70-105 [facility] Comment on above: Order Comment: Waive d Testing in the ED is performed under the ED CLIA certificate #[id number]. Result Comment: [email or web address] Performed By: #### L [id number] #### [facility] ([facility]) [address] [place] [address] Glucose [Mass/Vol] 141 mg/dL High 70-105 [facility] Comment on above: Order Comment: Waive d Testing in the ED is performed under the ED CLIA certificate #[id number]. Result Comment: [email or web address] Performed By: #### L [id number] #### [facility] ([facility]) [address] [place] [address] TROPONIN Ion 07-27-2023 Troponin I.cardiac [Mass/Vol] 0.91 ng/mL Critically high 0.00-0.04 [facility] Comment on above: Result Comment: M-ME EVIOUS CRITICAL RESULT Previous result verified on 07/27/2023 1749 on specimen/case [id number] called with component Troponin I for procedure Troponin I with value 1.02 ng/mL. Performed By: #### L [id number] #### [facility] ([facility]) [address] [place] [address] Troponin I.cardiac [Mass/Vol] 1.02 ng/mL Critically high 0.00-0.04 [facility] Comment on above: Result Comment: M-ME EVIOUS CRITICAL RESULT Performed By: #### L [id number] ####[facility] ([facility])[address] [place] [address] Troponin I.cardiac [Mass/Vol] 1.12 ng/mL Critically high 0.00-0.04 [facility] Comment on above: Result Comment: M-ME EVIOUS CRITICAL RESULT Previous result verified on 07/26/2023 1819 on specimen/case [id number] called with component Troponin I for procedure Troponin I with value 1.43 ng/mL. Performed By: #### L [id number] #### [facility] ([facility]) [address] [place] [address] ANTI-XA (HEPARIN LEVEL)on HEPARIN UNFRACTIONATED (U/ML) IN PPP BY CHROMOGENIC METHOD 0.15 IU/mL Invalid Interpretation Code 0.3-0.7 [facility] Comment on above: Order Comment: Waive d Testing in the ED is performed under the ED CLIA certificate #[id number]. Result Comment: Renuka roxaban and Apixaban will interfere with the anti Xa assay used to monitor UFH and LMWH. Performed By: #### L [id number] #### [facility] ([facility]) [address] [place] [address] APTTon 07-26-2023 ACTIVATED PARTIAL THROMBOPLASTIN TIME IN PPP BY COAGULATION ASSAY 27.7 Seconds Normal 25.0-35.0 [facility] Comment on above: Order Comment: Basel ine aPTT before initiating heparin infusion. Result Comment: Clin ical significance of the APTT is questionable in the presence of heparin. Performed By: #### L [id number] ####[facility] ([facility])[address] [place] [address] B-TYPE NATRIURETIC PEPTIDEon 07-26-2023 Natriuretic peptide B (Bld) [Mass/Vol] 350 pg/mL High 0-100 [facility] Comment on above: Performed By: #### L [id number] #### [facility] ([facility]) [address] [place] [address] BASIC METABOLIC PANELon 05-0 Anion gap [Moles/Vol] 15 mmol/L Normal 7-20 [facility] Comment on above: Performed By: #### L [id number] #### [facility] ([facility]) [address] [place] [address] Calcium [Mass/Vol] 9.1 mg/dL Normal 8.6-10.3 [facility] Comment on above: Performed By: #### L [id number] #### [facility] LAB (BEAKER) [address] [place] [address] Chloride [Moles/Vol] 105 mmol/L Normal 98-107 [facility] Comment on above: Performed By: #### L [id number] #### [facility] (BEAKER) [address] [place] [address] CO2 [Moles/Vol] 24 mmol/L Normal 21-31 [facility] Comment on above: Performed By: #### L [id number] #### [facility] [address] [place] [address] Creatinine [Mass/Vol] 0.61 mg/dL Normal 0.60-1.20 [facility] Comment on above: Performed By: #### L [id number] #### [facility] ([facility] [address] [place] [address] GLOMERULAR FILTRATION RATE ML/MIN/1.73 SQ M.PREDICTED 94.9 mL/min/1.73m*2 Normal >60.0 [facility] Comment on above: Result Comment: [facility]???s estimated glomerular filtration rate (eGFR) will no [...] group of individuals. Performed By: #### L [id number] #### [facility] ([facility]) [address] [place] [address] Glucose [Mass/Vol] 111 mg/dL High 70-100 [facility] Comment on above: Performed By: #### L [id number] #### [facility] ([facility]) [address] [place] [address] Potassium [Moles/Vol] 4.4 mmol/L Normal 3.5-5.1 [facility] Comment on above: Performed By: #### L [id number] #### [facility] ([facility]) [address] [place] [address] Sodium [Moles/Vol] 140 mmol/L Normal 136-145 [facility] Comment on above: Performed By: #### L [id number] #### [facility] ([facility]) [address] [place] [address] Urea nitrogen [Mass/Vol] 14 mg/dL Normal 7-25 [facility] Comment on above: Performed By: #### L [id number] #### [facility] ([facility]) [address] [place] [address] UREA NITROGEN/CREATININE (MASS RATIO) IN SER/PLAS 23.0 Normal [facility] Comment on above: Performed By: #### L [id number] #### [facility] ([facility]) [address] [place] [address] CBCon 07-26-2023 Erythrocyte distribution width (RBC) [Ratio] 14.1 % Normal 11.5-15.0 [facility] Comment on above: Performed By: #### L [id number] #### [facility] ([facility]) [address] [place] [address] ERYTHROCYTE MEAN CORPUSCULAR HEMOGLOBIN CONCENTRATION (G/DL) BY AUTOMATED 34.8 g/dL Normal 32.0-35.0 [facility] Comment on above: Performed By: #### L [id number] #### [facility] LAB (BEAKER) [address] [place] [address] Hematocrit (Bld) [Volume fraction] 36.2 % Normal 36.0-48.0 [facility] Comment on above: Performed By: #### L [id number] #### [facility] ([facility]) [address] [place] [address] Hemoglobin (Bld) [Mass/Vol] 12.6 g/dL Normal 12.0-15.0 [facility] Comment on above: Performed By: #### L [id number] #### [facility] ([facility]) [address] [place] [address] MCH (RBC) [Entitic mass] 33.0 pg Normal 27.0-33.0 [facility] Comment on above: Performed By: #### L [id number] #### [facility] ([facility]) [address] [place] [address] MCV (RBC) [Entitic vol] 94.8 fL Normal 82.0-98.0 [facility] Comment on above: Performed By: #### L [id number] #### [facility] ([facility]) [address] [place] [address] PLATELETS (10*3/UL) IN BLOOD AUTOMATED COUNT 202 10*3/uL Normal 150-400 [facility] Comment on above: Performed By: #### L [id number] #### [facility] ([facility]) [address] [place] [address] RBC (Bld) [#/Vol] 3.82 10*6/uL Normal 3.80-5.00 [facility] Comment on above: Performed By: #### L [id number] #### [facility] ([facility]) [address] [place] [address] WBC (Bld) [#/Vol] 8.53 10*3/uL Normal 4.00-10.60 [facility] Comment on above: Performed By: #### L [id number] #### [facility] LAB (BEAKER) [address] [place] [address] CONSULTon 07-26-2023 CONSULT -- Attestation signed by [...] her spinal surgery which was done at [facility]. Patient presented to the ED at [facility] for dizziness and generalized weakness. She was [...] by mouth in the morning. HYDROcodone-acetaminop hen ([place]) 10-325 mg tablet Take 1 tablet by [...] focal deficits (more content not included)... Normal [facility] POCT GLUCOSE METER UNSOLICIT ED RESULTSon 07-26-2023 Glucose [Mass/Vol] 200 mg/dL High 70-105 [facility] Comment on above: Order Comment: Waive d Testing in the ED is performed under the ED CLIA certificate #[id number]. Result Comment: [email or web address] [email or web address] Performed By: #### L [id number] #### [facility] LAB (BEAKER) [address] [place] [address] Glucose [Mass/Vol] 124 mg/dL High 70-105 [facility] Comment on above: Order Comment: Waive d Testing in the ED is performed under the ED CLIA certificate #[id number]. Result Comment: [email or web address] Performed By: #### L [id number] ####[facility] LAB (BEAKER)[address] [place] [address] TROPONIN Ion 07-26-2023 Troponin I.cardiac [Mass/Vol] 1.43 ng/mL Critically high 0.00-0.04 [facility] Comment on above: Result Comment: M-TR OPONIN INITIAL CRITICAL HIGH; RESPUN AND RETESTED Performed By: #### L [id number] #### [facility] LAB (BEAKER) [address] [place] [address] Glucose,Whole Bloodon 2023 Glucose [Mass/Vol] 116 mg/dL High 65-105 [facility] POC Glucose Fingerstickon Glucose [Mass/Vol] 116 mg/dL High 65 - 105 mg/dL [facility] Interpretation and review of laboratory results Abnormal [facility] FLUORO FOR SURGICAL PROCEDUR ESon 07-20-2023 FLUORO FOR SURGICAL PROCEDURES Radiology exam is complete. No Radiologist dictation. Please follow up with ordering provider. Final result Normal [facility] Glucose,Whole Bloodon 2023 Glucose [Mass/Vol] 149 mg/dL High 65-105 [facility] Glucose [Mass/Vol] 159 mg/dL High 65-105 [facility] Glucose [Mass/Vol] 131 mg/dL High 65-105 [facility] Guidance-- during surgeryon 07-20-2023 Radiology exam is complete. No Radiologist dictation. Please follow up with ordering provider. [facility] RIS CONSOLIDATED POC Glucose Fingerstickon Glucose [Mass/Vol] 149 mg/dL High 65 - 105 mg/dL [facility] Interpretation and review of laboratory results Abnormal [facility] Glucose [Mass/Vol] 159 mg/dL High 65 - 105 mg/dL [facility] Interpretation and review of laboratory results Abnormal [facility] Interpretation and review of laboratory results Abnormal [facility] US art pvr/post Ad 024 US art pvr/post LE [facility] Main [place] [address] [place] [address] Ultrasound Report Signed Patient: Mirna Quezada MR#: [id number] 41 : 1950 Acct:[id number] Age/Sex: 72 / F ADM Date: 07/06/23 Loc: Room: Type: [facility] Attending Dr: Aron Rain MD Ordering Provider: [...] Aron Rain M.D.07/09/2023 12:45 PM Dictation Location: [place] [address] Tech: Tamiko Tapia Transcribed By: FLOYD 07/09/23 1245 Dictated By: Aron Rain MD 07/09/23 1243 Signed By: 07/09/23 1245 Normal [facility] US carotid doppler BIon 04- US carotid doppler BI [facility] Main [place] [address] [place] [address] Ultrasound Report Signed Patient: Mirna Quezada MR#: [id number] 41 : 1950 Acct:[id number] Age/Sex: 72 / F ADM Date: 07/06/23 Loc: Room: Type: [facility] Attending Dr: Aron Rain MD Ordering Provider: [...] Aron Rain M.D.07/09/2023 12:43 PM Dictation Location: [place] [address] Tech: Laura Aguilar Transcribed By: FLOYD 07/09/23 1243 Dictated By: Aron Rain MD 07/09/23 1241 Signed By: 07/09/23 1243 Normal [facility] Office Visiton 05-25-2023 Follow-up visit [id number] Abhinav Quezada 1950 F Date Provider Department Center 05/25/2023 DIONE GOMEZ [facility] Family History Problem Relation Age of Onset Hypertension Mother ALS Father Family Status - Relation Status Age at Mother Father Level of Service:77359 ME OFFICE/OUTPATIENT ESTABLISHED MOD MDM 30 MIN Normal [facility] Basic Metabolic Panelon - Anion gap [Moles/Vol] 12 mmol/L 9 - 17 mmol/L [employer] Calcium [Mass/Vol] 9.0 mg/dL 8.6 - 10. 4 mg/dL [employer] Chloride [Moles/Vol] 104 mmol/L 98 - 107 mmol/L [facility] [employer] CO2 [Moles/Vol] 25 mmol/L 20 - 31 mmol/L [employer] Creatinine [Mass/Vol] 0.5 mg/dL 0.5 - 0.9 mg/dL [facility] GFR/1.73 sq M.predicted MDRD (S/P/Bld) [Vol rate/Area] - PINF [facility] Comment on above: These results are [...] 105 mg/dL High 70 - 99 mg/dL [facility] Interpretation and review of laboratory results Abnormal [facility] Potassium [Moles/Vol] 4.4 mmol/L 3.7 - 5.3 mmol/L [facility] Sodium [Moles/Vol] 141 mmol/L 135 - 144 mmol/L [facility] Urea nitrogen [Mass/Vol] 14 mg/dL 8 - 23 mg/dL [facility] Urea nitrogen/Creatinine [Mass ratio] 28 mg/mg High 9 - 20 [facility] Basic Metabolic Profon Anion gap [Moles/Vol] 12 mmol/L Normal - [facility] Comment on above: Performed By: #### B BECCA, CBC #### [facility] [address] [place] [address] Special Police: Lucas Pink MD #### GLYHGB #### [facility] [employer] [facility] [place] [address] Special Police: Chalo Rendon MD BUN/CRE Ratio 28 High 9-20 [facility] Comment on above: Performed By: #### B MP, CBC #### [facility] [address] [place] [address] Special Police: Lucas Pink MD #### GLYHGB #### [facility] [employer] [address] [place] [address] Special Police: Chalo Rendon MD Calcium [Mass/Vol] 9.0 mg/dL Normal 8.6-10.4 [facility] Comment on above: Performed By: #### B MP, CBC #### [facility] [address] [place] [address] Special Police: Lucas Pink MD #### GLYHGB #### [address] [address] Special Police: Chalo Rendon MD Chloride [Moles/Vol] 104 mmol/L Normal 98-107 [facility] Comment on above: Performed By: #### B MP, CBC #### [facility] [address] [place] [address] Special Police: Lucas Pink MD #### GLYHGB #### [address] [address] Special Police: Chalo Rendon MD CO2 [Moles/Vol] 25 mmol/L Normal 20-31 [facility] Comment on above: Performed By: #### B MP, CBC #### [facility] [address] [place] [address] Special Police: Lucas Pink MD #### GLYHGB #### [address] [address] Special Police: Chalo Rendon MD Creatinine [Mass/Vol] 0.5 mg/dL Normal 0.5-0.9 [facility] Comment on above: Performed By: #### B MP, CBC #### [facility] [address] [place] [address] Special Police: Lucas Pink MD #### GLYHGB #### [address] [phone] Special Police: Chalo Rendon MD GFR/1.73 sq M.predicted among non-blacks MDRD (S/P/Bld) [Vol rate/Area] mL/min/{1.73_m2} Normal >60 [facility] Comment on above: Result Comment: These [...] Performed By: #### B BECCA, CBC #### [facility] [address] [place], [place] [id number] Special Police: Lucas Pink MD #### GLYHGB #### [address] [address] Special Police: Chalo Rendon MD Glucose [Mass/Vol] 105 mg/dL High 70-99 [facility] Comment on above: Performed By: #### B BECCA, CBC #### [facility] [address] [place] [address] Special Police: Lucas Pikn MD #### GLYHGB #### [address] [address] Special Police: Chalo Rendon MD Potassium [Moles/Vol] 4.4 mmol/L Normal 3.7-5.3 [facility] Comment on above: Performed By: #### B BECCA, CBC #### [facility] [address] [place] [address] Special Police: Lucas Pink MD #### GLYHGB #### [address] [address] Special Police: Chalo Rendon MD Sodium [Moles/Vol] 141 mmol/L Normal 135-144 [facility] Comment on above: Performed By: #### B MP, CBC #### [facility] [address] [place] [address] Special Police: Lucas Pink MD #### GLYHGB #### [address] [address] Special Police: Chalo Rendon MD Urea nitrogen [Mass/Vol] 14 mg/dL Normal 8-23 [facility] Comment on above: Performed By: #### B MP, CBC #### [facility] [address] [place] [address] Special Police: Lucas Pink MD #### GLYHGB #### [address] [address] Special Police: Chalo Rendon MD CBCon 05-24-2023 Erythrocyte distribution width (RBC) [Ratio] 15.0 % High 11.8-14.4 [facility] Comment on above: Performed By: #### B BECCA, CBC #### [facility] [address] [place] [address] Special Police: Lucas Pink MD #### GLYHGB #### [address] [address] Special Police: Chalo Rendon MD Hematocrit (Bld) [Volume fraction] 46.0 % Normal 36.3-47.1 [facility] Comment on above: Performed By: #### B MP, CBC #### [facility] [address] [place] [address] Special Police: Lucas Pink MD #### GLYHGB #### [address] [address] Special Police: Chalo Rendon MD Hemoglobin (Bld) [Mass/Vol] 15.4 g/dL High 11.9-15.1 [facility] Comment on above: Performed By: #### B MP, CBC #### [facility] Lab [facility] [place] [address] Special Police: Lucas Pink MD #### GLYHGB #### [address] [address] Special Police: Chalo Rendon MD MCH (RBC) [Entitic mass] 33.0 pg Normal 25.2-33.5 [facility] Comment on above: Performed By: #### B MP, CBC #### [facility] [address] [place] [phone] Special Police: Lucas Pink MD #### GLYHGB #### [address] [address] Special Police: Chalo Rnedon MD MCHC (RBC) [Mass/Vol] 33.5 g/dL Normal 28.4-34.8 [facility] Comment on above: Performed By: #### B MP, CBC #### [facility] [address] [place] [address] Special Police: Lucas Pink MD #### GLYHGB #### [address] [address] Special Police: Chalo Rendon MD MCV (RBC) [Entitic vol] 98.5 fL Normal 82.6-102.9 [facility] Comment on above: Performed By: #### B MP, CBC #### [facility] [address] [place] [address] [id number] Special Police: Lucas Pink MD #### GLYHGB #### [address] [address] Special Police: Chalo Rendon MD NRBC Automated 0.0 per 100 WBC Normal 0.0 [facility] Comment on above: Performed By: #### B MP, CBC #### [facility] [address] [place] [address] Special Police: Lucas Pink MD #### GLYHGB #### [address] [address] Special Police: Chalo Rendon MD Platelet mean volume (Bld) [Entitic vol] 11.6 fL Normal 8.1-13.5 [facility] Comment on above: Performed By: #### B MP, CBC #### [facility] [address] [place] [address] Special Police: Lucas Pink MD #### GLYHGB #### [address] [address] Special Police: Chalo Rendon MD Platelets (Bld) [#/Vol] 168 10*3/uL Normal 138-453 [facility] Comment on above: Performed By: #### B MP, CBC #### [facility] [address] [place] [address] Special Police: Lucas Pink MD #### GLYHGB #### [address] [address] Special Police: Chalo Rendon MD RBC (Bld) [#/Vol] 4.67 10*6/uL Normal 3.95-5.11 [facility] Comment on above: Performed By: #### B MP, CBC #### [facility] [address] [place] [address] Special Police: Lucas Pink MD #### GLYHGB #### [facility] [address] [place] [address] Special Police: Chalo Rendon MD WBC (Bld) [#/Vol] 10.7 10*3/uL Normal 3.5-11.3 [facility] Comment on above: Performed By: #### B MP, CBC #### [facility] [address] [place], [place] [phone] Special Police: Lucas Pink MD #### GLYHGB #### [facility] [address] [place] [address] Special Police: Chalo Rendon MD Erythrocyte distribution width (RBC) [Ratio] 15.0 % High 11.8 - 14.4 % [facility] Hematocrit (Bld) [Volume fraction] 46.0 % 36.3 - 47.1 % [facility] Hemoglobin (Bld) [Mass/Vol] 15.4 g/dL High 11.9 - 15.1 g/dL [facility] Interpretation and review of laboratory results Abnormal [facility] MCH (RBC) [Entitic mass] 33.0 pg 25.2 - 33.5 pg [facility] MCHC (RBC) [Mass/Vol] 33.5 g/dL 28.4 - 34.8 g/dL [facility] MCV (RBC) [Entitic vol] 98.5 fL 82.6 - 102.9 fL [facility] Nucleated RBC/100 WBC (Bld) [Ratio] 0.0 % 0.0 per 100 WBC [facility] Platelet mean volume (Bld) [Entitic vol] 11.6 fL 8.1 - 13.5 fL [facility] Platelets (Bld) [#/Vol] 168 10*3/uL [facility] RBC (Bld) [#/Vol] 4.67 10*6/uL 3.95 - 5.1 1 m/uL [facility] WBC other (Bld) [#/Vol] 10.7 [facility] Hemoglobin A1Con 05-24-2023 Glucose [Mass/Vol] 140 mg/dL Normal [facility] Comment on above: Result Comment: The ADA and AACC recommend providing the estimated average glucose result to permit better patient understanding of their HBA1c result. Performed By: #### C BC, BMP #### [facility] [address] [place] [address] Special Police: Lucas Pink MD #### GLYHGB #### [facility] [address] [place], [place] [phone] Special Police: Chalo Rendon MD HbA1c (Bld) [Mass fraction] 6.5 % High 4.0-6.0 [facility] Comment on above: Performed By: #### C BC, BMP #### [facility] [address] [place], [place] [phone] Special Police: Lucas Pink MD #### GLYHGB #### [facility] [address] [place], [place] [phone] Special Police: Chalo Rendon MD Average glucose Estimated from glycated hemoglobin (Bld) [Mass/Vol] 140 mg/dL [facility] Comment on above: The ADA and AACC rec ommend providing the estimated average glucose result to permit better patient understanding of their HBA1c result. HbA1c (Bld) [Mass fraction] 6.5 % High 4.0 - 6.0 % [facility] Interpretation and review of laboratory results Abnormal [facility] Telemedicineon 04-19-2023 Telemedicine [id number] Abhinav Quezada 1950 F Date Provider Department Center 04/19/2023 DIONE GOMEZ Hos Family History Problem Relation Age of Onset Hypertension Mother ALS Father Family Status - Relation Status Age at Mother Father Level of Service:14128 ME PHYS/QHP TELEPHONE EVALUATION 21-30 MIN Normal [facility] Orders Onlyon 04-11-2023 Orders Only [id number] Abhinav Quezada W 1950 F Date Provider Department Center 04/11/2023 Lesa-KATHERINE GELLER KEYONA [facility] Family History Problem Relation Age of Onset Hypertension Mother ALS Father Family Status - Relation Status Age at Mother Father [facility] Documentationon 04-10-2023 Documentation [id number] Abhinav Quezada W 1950 F Date Provider Department Center 04/10/2023 [id number] CORRALES [facility] VAS LAB ND HeartVAS Family History Problem Relation Age of Onset Hypertension Mother ALS Father Family Status - Relation Status Age at Mother Father Reason for Visit and Comments: HF inpatient satisfaction survey sent. [Other] [facility] 36on 04-08-2023 36 Discharge date: 04/05/23 Call [...] reminder. No other questions. Aurora Mix PA-C [facility] Cardiovascular Medicine [phone] [facility] Telephoneon 04-08-2023 Telephone [id number] Abhinav Quezada W 1950 F Date Provider Department Center 04/08/2023 [id number] MIX [facility] HEART ND HeartVAS Family History Problem Relation Age of Onset Hypertension Mother ALS Father Family Status - Relation Status Age at Mother Father [facility] BASIC METABOLIC PANELon 03-26 Anion gap [Moles/Vol] 9 mmol/L Normal 7-20 [facility] Comment on above: Performed By: #### L [id number] #### [facility] (BEAKER) [address] [place] [address] Calcium [Mass/Vol] 9.0 mg/dL Normal 8.6-10.3 [facility] Comment on above: Performed By: #### L [id number] #### [facility] ([facility]) [address] [place] [address] Chloride [Moles/Vol] 108 mmol/L High 98-107 [facility] Comment on above: Performed By: #### L [id number] #### [facility] ([facility]) [address] [place] [address] CO2 [Moles/Vol] 27 mmol/L Normal 21-31 [facility] Comment on above: Performed By: #### L [id number] #### [facility] ([facility]) [address] [place] [address] Creatinine [Mass/Vol] 0.54 mg/dL Low 0.60-1.20 [facility] Comment on above: Performed By: #### L [id number] #### [facility] ([facility]) [address] [place] [address] GLOMERULAR FILTRATION RATE ML/MIN/1.73 SQ M.PREDICTED 97.8 mL/min/1.73m*2 Normal >60.0 [facility] Comment on above: Result Comment: [facility]???s estimated glomerular filtration rate (eGFR) will no [...] individuals. Performed By: #### L [id number] #### [facility] ([facility]) [address] [place] [address] Glucose [Mass/Vol] 157 mg/dL High 70-100 [facility] Comment on above: Performed By: #### L [id number] #### [facility] ([facility]) [address] [place] [address] Potassium [Moles/Vol] 4.3 mmol/L Normal 3.5-5.1 [facility] Comment on above: Performed By: #### L [id number] #### [facility] ([facility]) [address] [place] [address] Sodium [Moles/Vol] 140 mmol/L Normal 136-145 [facility] Comment on above: Performed By: #### L [id number] #### [facility] ([facility]) [address] [place] [address] Urea nitrogen [Mass/Vol] 30 mg/dL High 7-25 [facility] Comment on above: Performed By: #### L [id number] #### [facility] ([facility]) [address] [place] [address] UREA NITROGEN/CREATININE (MASS RATIO) IN SER/PLAS 55.6 Normal [facility] Comment on above: Performed By: #### L [id number] #### [facility] ([facility]) [address] [place] [address] CBCon 04-05-2023 Erythrocyte distribution width (RBC) [Ratio] 13.9 % Normal 11.5-15.0 [facility] Comment on above: Performed By: #### L [id number] ####[facility] ([facility])[address] [place] [address] ERYTHROCYTE MEAN CORPUSCULAR HEMOGLOBIN CONCENTRATION (G/DL) BY AUTOMATED 34.1 g/dL Normal 32.0-35.0 [facility] Comment on above: Performed By: #### L [id number] ####[facility] ([facility])[address] [place] [address] Hematocrit (Bld) [Volume fraction] 41.4 % Normal 36.0-48.0 [facility] Comment on above: Performed By: #### L [id number] ####[facility] ([facility] [place] [address] Hemoglobin (Bld) [Mass/Vol] 14.1 g/dL Normal 12.0-15.0 [facility] Comment on above: Performed By: #### L [id number] ####[facility] ([facility])[address] [place] [address] MCH (RBC) [Entitic mass] 32.3 pg Normal 27.0-33.0 [facility] Comment on above: Performed By: #### L [id number] ####[facility] ([facility])[address] [place] [address] MCV (RBC) [Entitic vol] 95.0 fL Normal 82.0-98.0 [facility] Comment on above: Performed By: #### L [id number] ####[facility] ([facility])[address] [place] [address] PLATELETS (10*3/UL) IN BLOOD AUTOMATED COUNT 234 10*3/uL Normal 150-400 [facility] Comment on above: Performed By: #### L [id number] ####[facility] ([facility])[address] [place] [address] RBC (Bld) [#/Vol] 4.36 10*6/uL Normal 3.80-5.00 [facility] Comment on above: Performed By: #### L [id number] ####[facility] ([facility])[address] [place] [address] WBC (Bld) [#/Vol] 6.75 10*3/uL Normal 4.00-10.60 [facility] Comment on above: Performed By: #### L [id number] ####[facility] ([facility])[address] [place] [address] MAGNESIUMon 04-05-2023 Magnesium [Mass/Vol] 1.6 mg/dL Low 1.9-2.7 [facility] Comment on above: Performed By: #### L [id number] ####[facility] ([facility])[address] [place] [address] NURSNOTEon 04-05-2023 NURSNOTE Wood Floor Layer notified hospitalist about blood pressure is 165/44 and her heart rate is 57. Patient was sleeping at the time. Hospitalist would like for residential mortgage underwriter to monitor the patient if the patient is asymptomatic. Normal [facility] POCT GLUCOSE METER UNSOLICIT ED RESULTSon 04-05-2023 Glucose [Mass/Vol] 198 mg/dL High 70-105 [facility] Comment on above: Order Comment: Waive d Testing in the ED is performed under the ED CLIA certificate #[id number]. Result Comment: wwar rad Performed By: #### L [id number] #### [facility] ([facility]) [address] [place] [address] Glucose [Mass/Vol] 248 mg/dL High 70-105 [facility] Comment on above: Order Comment: Waive d Testing in the ED is performed under the ED CLIA certificate #[id number]. Result Comment: wwar rad Performed By: #### L [id number] ####[facility] ([facility])[address] [place] [address] Glucose [Mass/Vol] 141 mg/dL High 70-105 [facility] Comment on above: Order Comment: Waive d Testing in the ED is performed under the ED CLIA certificate #[id number]. Result Comment: wwar rad Performed By: #### L [id number] #### [facility] ([facility]) [address] [place] [address] 30on 04-04-2023 30 Problem: Pain - Adul [...] Goal: Maintains hematologic stability Outcome: Progressing Normal [facility] 30 Daily Case Managemen t Update Multidisciplinary [...] Select all services needed for the patient Longterm Facility (30 day convalescent stay) Please indicate your approval for this care by adding your name here: SELENE LIZ 04/03/23 2338 Therapy Orders (From admission, onward) Start Ordered 04/04/23 1152 PT eval and treat Until therapy completed Question: Reason for PT? Answer: weakness 04/04/23 1151 04/04/23 1152 OT eval and treat Until therapy completed Question: Reason for OT? Answer: weakness 04/04/23 1151 Normal [facility] ANTI-XA (HEPARIN LEVEL)on HEPARIN UNFRACTIONATED (U/ML) IN PPP BY CHROMOGENIC METHOD 0.36 IU/mL Normal 0.3-0.7 [facility] Comment on above: Result Comment: Renuka roxaban and Apixaban will interfere with the anti Xa assay used to monitor UFH and LMWH. Performed By: #### L [id number] #### [facility] ([facility]) [address] [place] [address] HEPARIN UNFRACTIONATED (U/ML) IN PPP BY CHROMOGENIC METHOD 0.18 IU/mL Low 0.3-0.7 [facility] Comment on above: Result Comment: Renuka roxaban and Apixaban will interfere with the anti Xa assay used to monitor UFH and LMWH. Performed By: #### L [id number] ####[facility] ([facility])[address] [place] [address] HEPARIN UNFRACTIONATED (U/ML) IN PPP BY CHROMOGENIC METHOD 0.14 IU/mL Invalid Interpretation Code 0.3-0.7 [facility] Comment on above: Order Comment: Check anti-Xa level every 6 hours while on heparin infusion, or per protocol. Result Comment: Biola roxaban and Apixaban will interfere with the anti Xa assay used to monitor UFH and LMWH. Performed By: #### L [id number] #### [facility] ([facility]) [address] [place] [address] APTTon 04-04-2023 ACTIVATED PARTIAL THROMBOPLASTIN TIME IN PPP BY COAGULATION ASSAY 34.8 Seconds Normal 25.0-35.0 [facility] Comment on above: Order Comment: Basel ine aPTT before initiating heparin infusion. Result Comment: Clin ical significance of the APTT is questionable in the presence of heparin. Performed By: #### L [id number] #### [facility] ([place]) [address] [address] CONSULTon 04-04-2023 CONSULT -- Attestation signed by Claritza Bello MD at 04/04/2023 4:03 PM I personally saw and examined the patient on the same date of service as resident/fellow Dr Garza. I discussed the findings and therapeutic plan with the resident/fellow Dr Garza. I agree with the documentation, except for any edits/updates below. Teaching Physician's Revisions: Claritza Bello MD, MPH, [facility], [facility], [facility] Interventional Cardiology Pager Email: [email or web address] Card[facility] Consult Note Reason for Consult: CHF exacerbation HPI: Mirna Quezada is a 72 y.o. female with a past medical history significant for CAD status post CABG (ALMARAZ to LAD, SVG to D1, and SVG to OM1) 2000, ischemic cardiomyopathy, COPD, hypertension, type 2 diabetes mellitus who originally presented to [facility] with cough and was found to have community acquired pneumonia and acute heart failure exacerbation. Patient was transferred from [facility] for cardiology evaluation for elevated troponin. Patient presented to [facility] 03/29/2023. Labs were significant for elevated WBC. [...] olvera recommended that patient be transferred to [facility] for evaluation for cardiac catheterization. Of [...] by mouth in the morning. HYDROcodone-acetaminop hen ([place]) 10-325 mg tablet Take 1 tablet by [...] the p (more content not included)... Normal [facility] NURSNOTEon 04-04-2023 NURSNOTE Wood Floor Layer phoned hospitalist to inform him that the patient blood pressure was 85/42 at 4:10 am and 101/46 at 4:20. Wood Floor Layer also let the hospitalist know that the patient was asymptomatic. Hospitalist would like for residential mortgage underwriter to keep a close eye on the patient and her blood pressure; call the hospitalist if any changes. Normal [facility] PLATELET COUNTon 04-04-2023 PLATELETS (10*3/UL) IN BLOOD AUTOMATED COUNT 242 10*3/uL Normal 150-400 [facility] Comment on above: Performed By: #### L [id number] ####[facility] ([facility])[address] [place] [address] POCT GLUCOSE METER UNSOLICIT ED RESULTSon 04-04-2023 Glucose [Mass/Vol] 209 mg/dL High 70-105 [facility] Comment on above: Order Comment: Waive d Testing in the ED is performed under the ED CLIA certificate #[id number]. Result Comment: gregg hardy Performed By: #### L [id number] #### [facility] ([facility]) [address] [place] [address] Glucose [Mass/Vol] 188 mg/dL High 70-105 [facility] Comment on above: Order Comment: Waive d Testing in the ED is performed under the ED CLIA certificate #[id number]. Result Comment: wwar rad Performed By: #### L [id number] ####[facility] ([facility])[address] [address] Glucose [Mass/Vol] 191 mg/dL High 70-105 [facility] Comment on above: Order Comment: Waive d Testing in the ED is performed under the ED CLIA certificate #[id number]. Result Comment: wwar rad Performed By: #### L [id number] #### [facility] ([facility]) [address] [place] [address] Glucose [Mass/Vol] 248 mg/dL High 70-105 [facility] Comment on above: Order Comment: Waive d Testing in the ED is performed under the ED CLIA certificate #[id number]. Result Comment: wwar rad Performed By: #### L [id number] ####[facility] ([place])[address] [place] [address] Glucose [Mass/Vol] 142 mg/dL High 70-105 [facility] Comment on above: Order Comment: Waive d Testing in the ED is performed under the ED CLIA certificate #[id number]. Result Comment: swey er2 Critical Value Noted Performed By: #### L [id number] #### [facility] ([facility]) [address] [place] [address] TROPONIN Ion 04-04-2023 Troponin I.cardiac [Mass/Vol] 0.06 ng/mL High 0.00-0.04 [facility] Comment on above: Performed By: #### L [id number] ####[facility] ([facility])[address] [place] [address] Troponin I.cardiac [Mass/Vol] 0.07 ng/mL High 0.00-0.04 [facility] Comment on above: Performed By: #### L [id number] #### [facility] ([facility]) [address] [place] [address] 30on 04-03-2023 30 Problem: Pain - Adul [...] will verbalize decreased discomfort Outcome: Progressing Normal [facility] B-TYPE NATRIURETIC PEPTIDEon 04-03-2023 Natriuretic peptide B (Bld) [Mass/Vol] 138 pg/mL High 0-100 [facility] Comment on above: Performed By: #### L [id number] #### [facility] ([facility]) [address] [place] [address] CBC WITH AUTO DIFFERENTIALon 04-03-2023 Basophils (Bld) [#/Vol] 0.06 10*3/uL Normal 0.00-0.20 [facility] Comment on above: Performed By: #### L [id number] #### [facility] ([facility]) [address] [place] [address] Basophils/100 WBC (Bld) 0.8 % Normal 0.0-1.0 [facility] Comment on above: Performed By: #### L [id number] #### [facility] ([facility]) [address] [place] [address] Eosinophils (Bld) [#/Vol] 0.15 10*3/uL Normal 0.00-0.50 [facility] Comment on above: Performed By: #### L [id number] #### [facility] ([facility]) [address] [place] [address] Eosinophils/100 WBC (Bld) 1.9 % Normal 0.0-6.0 [facility] Comment on above: Performed By: #### L [id number] #### [facility] ([facility]) [address] [place] [address] Erythrocyte distribution width (RBC) [Ratio] 14.2 % Normal 11.5-15.0 [facility] Comment on above: Performed By: #### L [id number] #### [facility] ([facility]) [address] [place] [address] ERYTHROCYTE MEAN CORPUSCULAR HEMOGLOBIN CONCENTRATION (G/DL) BY AUTOMATED 33.4 g/dL Normal 32.0-35.0 [facility] Comment on above: Performed By: #### L [id number] #### [facility] ([facility] [address] [place] [address] Hematocrit (Bld) [Volume fraction] 44.3 % Normal 36.0-48.0 [facility] Comment on above: Performed By: #### L [id number] #### [facility] ([facility]) [address] [place] [address] Hemoglobin (Bld) [Mass/Vol] 14.8 g/dL Normal 12.0-15.0 [facility] Comment on above: Performed By: #### L [id number] #### [facility] ([facility]) [address] [place] [address] Immature granulocytes (Bld) [#/Vol] 0.06 10*3/uL Normal 0.00-0.20 [facility] Comment on above: Performed By: #### L [id number] #### [facility] ([facility]) [address] [place] [address] Immature granulocytes/100 WBC (Bld) 0.8 % Normal 0.0-1.0 [facility] Comment on above: Performed By: #### L [id number] #### [facility] ([facility]) [address] [place] [address] Lymphocytes (Bld) [#/Vol] 2.57 10*3/uL Normal 1.20-4.00 [facility] Comment on above: Performed By: #### L [id number] #### [facility] ([facility]) [address] [place] [address] Lymphocytes/100 WBC (Bld) 32.2 % Normal 20.0-45.0 [facility] Comment on above: Performed By: #### L [id number] #### [facility] ([facility]) [address] [place] [address] MCH (RBC) [Entitic mass] 32.2 pg Normal 27.0-33.0 [facility] Comment on above: Performed By: #### L [id number] #### [facility] ([facility]) [address] [place] [address] MCV (RBC) [Entitic vol] 96.3 fL Normal 82.0-98.0 [facility] Comment on above: Performed By: #### L [id number] #### [facility] ([facility]) [address] [place] [address] Monocytes (Bld) [#/Vol] 0.79 10*3/uL Normal 0.10-1.00 [facility] Comment on above: Performed By: #### L [id number] #### [facility] ([facility]) [address] [place] [address] Monocytes/100 WBC (Bld) 9.9 % Normal 5.0-12.0 [facility] Comment on above: Performed By: #### L [id number] #### [facility] ([facility]) [address] [place] [address] Neutrophils (Bld) [#/Vol] 4.36 10*3/uL Normal 1.60-7.60 [facility] Comment on above: Performed By: #### L [id number] #### [facility] ([facility]) [address] [place] [address] Neutrophils/100 WBC (Bld) 54.4 % Normal 40.0-72.0 [facility] Comment on above: Performed By: #### L [id number] #### [facility] ([facility]) [address] [place] [address] PLATELETS (10*3/UL) IN BLOOD AUTOMATED COUNT 254 10*3/uL Normal 150-400 [facility] Comment on above: Performed By: #### L [id number] #### [facility] ([facility]) [address] [place] [address] RBC (Bld) [#/Vol] 4.60 10*6/uL Normal 3.80-5.00 [facility] Comment on above: Performed By: #### L [id number] #### [facility] ([facility]) [address] [place] [address] WBC (Bld) [#/Vol] 7.99 10*3/uL Normal 4.00-10.60 [facility] Comment on above: Performed By: #### L [id number] #### [facility] ([facility]) [address] [place] [address] COMPREHENSIVE METABOLIC PANE Gaurav 04-03-2023 Albumin [Mass/Vol] 3.8 g/dL Normal 3.5-5.7 [facility] Comment on above: Performed By: #### L [id number] #### [facility] ([facility]) [address] [place] [address] ALP [Catalytic activity/Vol] 73 U/L Normal 34-104 [facility] Comment on above: Performed By: #### L [id number] #### [facility] ([facility] [address] [place] [address] ALT [Catalytic activity/Vol] 15 U/L Normal 7-52 [facility] Comment on above: Performed By: #### L [id number] #### [facility] ([facility] [address] [place] [address] Anion gap [Moles/Vol] 14 mmol/L Normal 7-20 [facility] Comment on above: Performed By: #### L [id number] #### [facility] ([facility]) [address] [place] [address] AST [Catalytic activity/Vol] 25 U/L Normal 13-39 [facility] Comment on above: Performed By: #### L [id number] #### [facility] ([facility]) [address] [place] [address] Bilirubin [Mass/Vol] 0.3 mg/dL Normal 0.3-1.0 [facility] Comment on above: Performed By: #### L [id number] #### [facility] ([facility]) [address] [place] [address] Calcium [Mass/Vol] 9.6 mg/dL Normal 8.6-10.3 [facility] Comment on above: Performed By: #### L [id number] #### [facility] ([facility]) [address] [place] [address] Chloride [Moles/Vol] 104 mmol/L Normal 98-107 [facility] Comment on above: Performed By: #### L [id number] #### [facility] ([facility]) [address] [place] [address] CO2 [Moles/Vol] 27 mmol/L Normal 21-31 [facility] Comment on above: Performed By: #### L [id number] #### [facility] ([facility]) [address] [place] [address] Creatinine [Mass/Vol] 0.65 mg/dL Normal 0.60-1.20 [facility] Comment on above: Performed By: #### L [id number] #### [facility] ([facility]) [address] [place] [address] GLOMERULAR FILTRATION RATE ML/MIN/1.73 SQ M.PREDICTED 93.5 mL/min/1.73m*2 Normal >60.0 [facility] Comment on above: Result Comment: [facility]'s estimated glomerular filtration rate (eGFR) will no [...] individuals. Performed By: #### L [id number] #### [facility] ([facility]) [address] [place] [address] Glucose [Mass/Vol] 120 mg/dL High 70-100 [facility] Comment on above: Performed By: #### L [id number] #### [facility] ([facility]) [address] [place] [address] Potassium [Moles/Vol] 4.1 mmol/L Normal 3.5-5.1 [facility] Comment on above: Performed By: #### L [id number] #### [facility] ([facility]) [address] [place] [address] Protein [Mass/Vol] 6.7 g/dL Normal 6.0-8.3 [facility] Comment on above: Performed By: #### L [id number] #### [facility] ([facility]) [address] [place] [address] Sodium [Moles/Vol] 141 mmol/L Normal 136-145 [facility] Comment on above: Performed By: #### L [id number] #### [facility] ([facility]) [address] [place] [address] Urea nitrogen [Mass/Vol] 32 mg/dL High 7-25 [facility] Comment on above: Performed By: #### L [id number] #### [facility] ([facility]) [address] [place] [address] UREA NITROGEN/CREATININE (MASS RATIO) IN SER/PLAS 49.2 Normal [facility] Comment on above: Performed By: #### L [id number] #### [facility] ([facility]) [address] [place] [address] MAGNESIUMon 04-03-2023 Magnesium [Mass/Vol] 1.2 mg/dL Low 1.9-2.7 [facility] Comment on above: Performed By: #### L [id number] ####[facility] ([facility])[address] [place] [address] PHOSPHORUSon 04-03-2023 Magnesium [Mass/Vol] 3.6 mg/dL Normal 2.5-5.0 [facility] Comment on above: Performed By: #### L [id number] ####[facility] ([facility])[address] [place] [address] PROTIME-INRon 04-03-2023 INR IN PPP BY COAGULATION ASSAY 1.00 Normal 0.90-1.10 [facility] Comment on above: Result Comment: ACCC P [...] CHEST 1995;[id number]. Performed By: #### L [id number] ####[facility] ([facility])[address] [place] [address] PROTHROMBIN TIME (PT) IN PPP BY COAGULATION ASSAY 13.2 Seconds Normal 12.3-14.8 [facility] Comment on above: Performed By: #### L [id number] ####[facility] ([facility])[address] [place] [address] TROPONIN Ion 04-03-2023 Troponin I.cardiac [Mass/Vol] 0.10 ng/mL High 0.00-0.04 [facility] Comment on above: Performed By: #### L [id number] #### [facility] ([facility]) [address] [place] [address] BUN + Creatinineon 3 Creatinine [Mass/Vol] 0.5 mg/dL Normal 0.5-0.9 [facility] Comment on above: Performed By: #### B UNCRT, CBC, GLU, LYTE #### [facility] [address] [place] [address] Special Police: Chalo Rendon MD GFR/1.73 sq M.predicted among non-blacks MDRD (S/P/Bld) [Vol rate/Area] mL/min/{1.73_m2} Normal >60 [facility] Comment on above: Result Comment: These results [...] #### B UNCRT, CBC, GLU, LYTE #### [facility] [employer] [address] [place] [address] Special Police: Chalo Rendon MD Urea nitrogen [Mass/Vol] 14 mg/dL Normal 8-23 [facility] Comment on above: Performed By: #### B UNCRT, CBC, GLU, LYTE #### [facility] [address] [place] [address] Special Police: Chalo Rendon MD CBCon 02-02-2023 Erythrocyte distribution width (RBC) [Ratio] 14.3 % Normal 11.8-14.4 [facility] Comment on above: Performed By: #### B UNCRT, CBC, GLU, LYTE #### [facility] [employer] [address] [place] [address] Special Police: Chalo Rendon MD Hematocrit (Bld) [Volume fraction] 47.5 % High 36.3-47.1 [facility] Comment on above: Performed By: #### B UNCRT, CBC, GLU, LYTE #### [facility] [employer] [address] [place] [address] Special Police: Chalo Rendon MD Hemoglobin (Bld) [Mass/Vol] 16.5 g/dL High 11.9-15.1 [facility] Comment on above: Performed By: #### B UNCRT, CBC, GLU, LYTE #### [facility] [employer] [address] [place] [address] Special Police: Chalo Rendon MD MCH (RBC) [Entitic mass] 33.7 pg High 25.2-33.5 [facility] Comment on above: Performed By: #### B UNCRT, CBC, GLU, LYTE #### [facility] [employer] [address] [place] [address] Special Police: Chalo Rendon MD MCHC (RBC) [Mass/Vol] 34.7 g/dL Normal 28.4-34.8 [facility] Comment on above: Performed By: #### B UNCRT, CBC, GLU, LYTE #### [address] [address] Special Police: Chalo Rendon MD MCV (RBC) [Entitic vol] 97.1 fL Normal 82.6-102.9 [facility] Comment on above: Performed By: #### B UNCRT, CBC, GLU, LYTE #### [address] [address] Special Police: Chalo Rendon MD NRBC Automated 0.0 per 100 WBC Normal 0.0 [facility] Comment on above: Performed By: #### B UNCRT, CBC, GLU, LYTE #### [place] [address] Special Police: Chalo Rendon MD Platelet mean volume (Bld) [Entitic vol] 12.3 fL Normal 8.1-13.5 [facility] Comment on above: Performed By: #### B UNCRT, CBC, GLU, LYTE #### [address] [address] Special Police: Chalo Rendon MD Platelets (Bld) [#/Vol] 149 10*3/uL Normal 138-453 [facility] Comment on above: Performed By: #### B UNCRT, CBC, GLU, LYTE #### [address] [address] Special Police: Chalo Rendon MD RBC (Bld) [#/Vol] 4.89 10*6/uL Normal 3.95-5.11 [facility] Comment on above: Performed By: #### B UNCRT, CBC, GLU, LYTE #### [address] [address] Special Police: Chalo Rendon MD WBC (Bld) [#/Vol] 8.8 10*3/uL Normal 3.5-11.3 [facility] Comment on above: Performed By: #### B UNCRT, CBC, GLU, LYTE #### [address] [address] Special Police: Chalo Rendon MD Electrolyteson 02-02-2023 Anion gap [Moles/Vol] 10 mmol/L Normal 9-17 [facility] Comment on above: Performed By: #### B UNCRT, CBC, GLU, LYTE #### [address] [address] Special Police: Chalo Rendon MD Chloride [Moles/Vol] 104 mmol/L Normal 98-107 [facility] Comment on above: Performed By: #### B UNCRT, CBC, GLU, LYTE #### [facility] [employer] [address] [place] [address] Special Police: Chalo Rendon MD CO2 [Moles/Vol] 24 mmol/L Normal 20-31 [facility] Comment on above: Performed By: #### B UNCRT, CBC, GLU, LYTE #### [facility] [employer] [address] [place] [address] Special Police: Chalo Rendon MD Potassium [Moles/Vol] 4.2 mmol/L Normal 3.7-5.3 [facility] Comment on above: Performed By: #### B UNCRT, CBC, GLU, LYTE #### [facility] [employer] [address] [place] [address] Special Police: Chalo Rendon MD Sodium [Moles/Vol] 138 mmol/L Normal 135-144 [facility] Comment on above: Performed By: #### B UNCRT, CBC, GLU, LYTE #### [facility] [address] [place] [address] Special Police: Chalo Rendon MD Glucoseon 02-02-2023 Glucose [Mass/Vol] 127 mg/dL High 70-99 [facility] Comment on above: Performed By: #### B UNCRT, CBC, GLU, LYTE #### [address] [address] Special Police: Chalo Rendon MD Office Visiton 10-31-2022 Follow-up visit [id number] Abhinav Quezada Arya 1950 F Date Provider Department Center 10/31/2022 [id number] OLMEDO Family History Problem Relation Age of Onset Hypertension Mother ALS Father Family Status - Relation Status Age at Mother Father Level of Service:33456 ME OFFICE/OUTPATIENT NEW MODERATE MDM 45-59 MINUTES Normal [facility] Hemoglobin A1Con 10-27-2022 Glucose [Mass/Vol] 157 mg/dL Normal [facility] Comment on above: Result Comment: The ADA and AACC recommend providing the estimated average glucose result to permit better patient understanding of their HBA1c result. Performed By: #### Lali MIRANDA BMP #### [facility] [address] [place] [address] Special Police: Lucas Pink MD #### GLYHGB #### [address] [address] Special Police: Chalo Rendon MD HbA1c (Bld) [Mass fraction] 7.1 % High 4.0-6.0 [facility] Comment on above: Performed By: #### Lali MIRANDA BMP #### [facility] [address] [place] [address] Special Police: Lucas Pink MD #### GLYHGB #### [address] [address] Special Police: Chalo Rendon MD Basic Metabolic Profon 10-26 Anion gap [Moles/Vol] 9 mmol/L Normal 9-17 [facility] Comment on above: Performed By: #### C BC, BMP #### [facility] [address] [place] [address] Special Police: Lucas Pink MD #### GLYHGB #### [address] [address] Special Police: Chalo Rendon MD BUN/CRE Ratio 27 High 9-20 [facility] Comment on above: Performed By: #### C RUBEN, BMP #### [facility] [address] [place] [address] Special Police: Lucas Pink MD #### GLYHGB #### [address] [address] Special Police: Chalo Rendon MD Calcium [Mass/Vol] 8.8 mg/dL Normal 8.6-10.4 [facility] Comment on above: Performed By: #### Lali MIRANDA, BMP #### [facility] [address] [place] [address] Special Police: Lucas Pink MD #### GLYHGB #### [address] [address] Special Police: Chalo Rendon MD Chloride [Moles/Vol] 105 mmol/L Normal 98-107 [facility] Comment on above: Performed By: #### C RUBEN, BMP #### [facility] [address] [place] [address] Special Police: Lucas Pink MD #### GLYHGB #### [address] [address] Special Police: Chalo Rendon MD CO2 [Moles/Vol] 27 mmol/L Normal 20-31 [facility] Comment on above: Performed By: #### C RUBEN, BMP #### [facility] [address] [place] [address] Special Police: Lucas Pink MD #### GLYHGB #### [address] [address] Special Police: Chalo Rendon MD Creatinine [Mass/Vol] 0.6 mg/dL Normal 0.5-0.9 [facility] Comment on above: Performed By: #### C RUBEN, BMP #### [facility] [address] [place] [address] Special Police: Lucas Pink MD #### GLYHGB #### [address] [address] Special Police: Chalo Rendon MD GFR/1.73 sq M.predicted among non-blacks MDRD (S/P/Bld) [Vol rate/Area] mL/min/{1.73_m2} Normal >60 [facility] Comment on above: Result Comment: These [...] Performed By: #### C RUBEN, BMP #### [facility] [address] [place] [address] Special Police: Lucas Pink MD #### GLYHGB #### [address] [address] Special Police: Chalo Rendon MD Glucose [Mass/Vol] 134 mg/dL High 70-99 [facility] Comment on above: Performed By: #### C BC, BMP #### [facility] [address] [place] [address] Special Police: Lucas Pink MD #### GLYHGB #### [address] [address] Special Police: Chalo Rendon MD Potassium [Moles/Vol] 4.3 mmol/L Normal 3.7-5.3 [facility] Comment on above: Performed By: #### C BC, BMP #### [facility] [address] [place] [address] Special Police: Lucas Pink MD #### GLYHGB #### [address] [address] Special Police: Chalo Rendon MD Sodium [Moles/Vol] 141 mmol/L Normal 135-144 [facility] Comment on above: Performed By: #### C BC, BMP #### [facility] [address] [place] [address] Special Police: Lucas Pink MD #### GLYHGB #### [address] [address] Special Police: Chalo Rendon MD Urea nitrogen [Mass/Vol] 16 mg/dL Normal 8-23 [facility] Comment on above: Performed By: #### C BC, BMP #### [facility] [address] [place] [address] Special Police: Lucas Pink MD #### GLYHGB #### [address] [address] Special Police: Chalo Rendon MD CBCon 10-26-2022 Erythrocyte distribution width (RBC) [Ratio] 13.7 % Normal 11.8-14.4 [facility] Comment on above: Performed By: #### C RUBEN, BMP #### [facility] [address] [place] [address] Special Police: Lucas Pink MD #### GLYHGB #### [address] [address] Special Police: Chalo Rendon MD Hematocrit (Bld) [Volume fraction] 47.2 % High 36.3-47.1 [facility] Comment on above: Performed By: #### C RUBEN, BMP #### [facility] [address] [place] [address] Special Police: Lucas Pink MD #### GLYHGB #### [address] [address] Special Police: Chalo Rendon MD Hemoglobin (Bld) [Mass/Vol] 15.9 g/dL High 11.9-15.1 [facility] Comment on above: Performed By: #### C RUEBN, BMP #### [facility] [address] [place] [address] Special Police: Lucas Pink MD #### GLYHGB #### [address] [address] Special Police: Chalo Rendon MD MCH (RBC) [Entitic mass] 33.5 pg Normal 25.2-33.5 [facility] Comment on above: Performed By: #### C RUBEN, BMP #### [facility] [address] [place] [address] Special Police: Lucas Pink MD #### GLYHGB #### [address] [address] Special Police: Chalo Rendon MD MCHC (RBC) [Mass/Vol] 33.7 g/dL Normal 28.4-34.8 [facility] Comment on above: Performed By: #### C BC, BMP #### [facility] [address] [place] [address] Special Police: Lucas Pink MD #### GLYHGB #### [address] [address] Special Police: Chalo Rendon MD MCV (RBC) [Entitic vol] 99.6 fL Normal 82.6-102.9 [facility] Comment on above: Performed By: #### C BC, BMP #### [facility] [address] [place] [address] Special Police: Lucas Pink MD #### GLYHGB #### [address] [address] Special Police: Chalo Rendon MD NRBC Automated 0.0 per 100 WBC Normal 0.0 [facility] Comment on above: Performed By: #### C BC, BMP #### [facility] [address] [place] [address] Special Police: Lucas Pink MD #### GLYHGB #### [address] [address] Special Police: Chalo Rendon MD Platelet mean volume (Bld) [Entitic vol] 12.0 fL Normal 8.1-13.5 [facility] Comment on above: Performed By: #### C BC, BMP #### [facility] [address] [place] [address] Special Police: Lucas Pink MD #### GLYHGB #### [address] [place] [address] Special Police: Chalo Rendon MD Platelets (Bld) [#/Vol] 141 10*3/uL Normal 138-453 [facility] Comment on above: Performed By: #### C BC, BMP #### [facility] [address] [place] [address] Special Police: Lucas Pink MD #### GLYHGB #### [address] [address] Special Police: Chalo Rendon MD RBC (Bld) [#/Vol] 4.74 10*6/uL Normal 3.95-5.11 [facility] Comment on above: Performed By: #### C BC, BMP #### [facility] [address] [place] [address] Special Police: Lucas Pink MD #### GLYHGB #### [address] [address] Special Police: Chalo Rendon MD WBC (Bld) [#/Vol] 9.4 10*3/uL Normal 3.5-11.3 [facility] Comment on above: Performed By: #### C BC, BMP #### [facility] [address] [place] [address] Special Police: Lucas Pink MD #### GLYHGB #### [address] [address] Special Police: Chalo Rendon MD MRI LSPAO ONEIL CONon 06-29-19 MRI [place] WO CON EXAM: MRI of the lumbar [...] by: GARRET BENJAMIN Date: 2022-06-28 07:23 Normal [facility] US CAROTID ART BILon 10-28-2 022 [...] CHARY AWAD Date: 2022-01-20 17:33 Normal [facility] Consent Formson 01-18-2022 Consent Forms [id number] OTGTIFF Normal [facility] CREATININEon 01-16-2022 Creatinine [Mass/Vol] 0.66 mg/dL Normal 0.55-1.02 [facility] Comment on above: Performed By: #### C RUFINO #### [facility] [address] [place] [address] Dr. Deborah Solorio EGFR-AF MONTSERRATIAN >60 Normal >=60 [facility] Comment on above: Performed By: #### C RUFINO #### [facility] [address] [place] [address] Dr. Deborah Solorio EGFR-NON AF MONTSERRATIAN >60 Normal >=60 [facility] Comment on above: Performed By: #### C RUFINO #### [facility] [address] [place] [address] Dr. Deborah Solorio CTA ABD ASHLEY WWO [...] by: BLAYNE CALDERÓN Date: 2022-01-16 19:35 Normal [facility] Coding Summaryon 01-11-2022 Coding Summary HTMLBase 64 VbmpniskPTn7sVj+PGhlYW Q+WH2RKCMwU41eyZWtrS0L R5oRBN8UBBJAKHMRUV5IFM 9ycCD9HMcgW9ZqzeUz CdydlKJnOM35CUe7NOU9xD acEOzciZ9ivABaS2z8KrBz XV80pV66MFkvLLZwLhO0Wl ZpbjsgbWFy W9vpYlGurNQtYua+PHRhYm xlIHdpZHRoPScxMDAlJyBz qFbbXA0oHz8sGQFgNHDxyC xhcHNlOiBj g0uvITFkUVibKM3iwGxvN4 WxfQM0XJHrr1j3Tr55xUV+ OLUpUGV2sJbcMLjzi435Kq Zeo3jlEVF4 zCHvZTatNLK0Q30ij8E5JE TeTRXmWVA4pON5qM3sbVcs ohetW9SfxTPrPqR0BOT0jV WroV6vnPnl klbuxD2dHex+N19QDD1FMQ PZDT9RDbd0P4NtDwbyuMX+ JS12TUXiNH38rYBoaMZpy5 vroQs7EjId ZQTzTAR1hNqrSCodi6UmFP FtC14bmFMex7I2SHBgsMql rKXeRoVnrEU4bB6bVGuoez dyp4ykatvr Ziwzu6schv68nS72Q96tUM vfWDJhOVT4OMCjHDAarItr pj7skN1gDy6+UXdqx5xkc8 nfvXz1GcBt XVNiszAlrNawSOB1g9OnKs 72E1SvoZnbd5KjTye8sy47 uHSzi8D4rEV5SAecXJIegN 9zGOwlJaP0 FMOiXvGhfS30rFOvOZkxBt 3fuLmpsVzwIY4iVNBndzcz YOMpmN2iCVUwcFKgjRqrLE 4wNTBpbjtm g749CvCjNVS3NYHryCTzW0 YoeD3rSoBnREDkQNHvR4Dp fSDyCUmuS348UKtwSwK7LN SyafAuX9Qv AHMtcMuiGfP5t9D7Ia8Pe5 DdcwwkCKR8QSsvPKYxQdQ6 FbNlUwD1K5ZrSjl7KPOjcT ltOV3mV5Di OPGghrmpmedhlXV7HRGyIC HyvQ68aYTaOMcxTp8mh8J1 y879HXLmHTBwqE25Ar9lwQ ogMTBwdCBU sZ7beshwu1yfshstItPuLC InEUc5CZr4IYMisTbxQySp HVS0HrR9NFX6sSTvoE2rmS iijfwgfV1k Oyc+P95bsR8aRVR8QHD2rc edGLAqeuDnTM64TR23J2Hx PjwvdGFibGU+PGRpdiBzdH zpNY8xMsCz t9cko2ZwUBcvV3UiESZtIJ wxSos9EBHvLIA9lXF5hW3m LPPwATezp8M1hRI1X2Uaac Jecm0wm2os YJZpHHegS33wgRVdt9L4VM SlvGN2JHSksUtzSkHtbB42 Oyc+KOLifAoyj5MtBvkco9 hrr9twpHt6 ZqNdEJAkonAwrNxlACC5k3 PfQn76D91sEBgiYUMpUAEs SENhEHWcdVmxuf8foE8tVa 8+PGNvbCB3 kGE6yU2fSPKkCsE1JOjnE3 82OqCtcBDdXpyfw0vbx8me fLs7LfZuYCZowfPjfOmtHE X6f1XhHi19 W46oXMffSJEyBRIcQJAtSF KscGfalv8ikO4tTf1+PC9j c9lbok61tJ25xCE+PHRkIH V2iSohVFbv BYJquR8hQQfrHpZ8KALtNo UcqT48oMIhPVwvBk0yoGpw mDfqQG6fJQQupqtke985Br Aps0hhXEGh mTNiSHwdBTY8K74px8T3SU RzCOVcLDH3uCZ7qT6hdBzw bjogbGVmdDsgdmVydGljYW vfGEnjG889 IHRvcDsnPlBhdGllbnQgTm VuWXp7H9NyNdf1QCQosAej XY5ftPMuSBmkRc7mlCrjvW ipQA5iLZTy kzlka834QoEek1fjFLEpdT BtJAijZFZ9S53uv1X2ORMt XOIiMFL8wAM8yM1dnKgmmu ogbGVmdDsg zxXfqEqmNGoxCCebA217QB RvcDsnPkJpcnRoIERhdGU6 MS23KF57dSHaj1Q7xRN0H0 BhZGRpbmct ueciiMQ8BBTrXNZlzU23Wy 4owIxdCc7tDQExSPB5AQJv cPHgW9EmnQ0xFiHoKDQbUR SnV6BrnZVb GGqtE051LYgxGwR3YMCroj GcR2NlXILdtOruXoV7s9Q9 Oz6HZ3M0ZW48XG91cCKba5 E9nGS8P2Hy AFUqqrridnauwMI3HJBoWL FmiG25Tr0rnPjcOp3sCGBc QCH8XAXsuYAwA2GyfT1uLe AjMDAwMDAw Q6OggVViIAtlZ413DYmsXf T3QPZgkdDmM2ZaZXLetGka FbD5q6R3Ox9JNEc7QK71OI 23lSTfl4W8 gWV5O0HlEPEsehxevcojzQ Y2BZLcZZNatT95Kq0piJpm Aj0aJECdQIC8DHKkrPIoO7 VkqK9wSvYh UZQhICHsU4EnqGYdXArqL2 61ATpeWaC3XWZjvaSnQ3Ue LSSwzCucFrA5m7F3Cr3JEA ZvPQ80PQW4 bGE8UQ38NQ01O9IpYexmhW FibGU+PHRhYmxlIHdpZHRo PZyjNMPhRhYluKveUC9pDs 9yZGVyLWNv tRmeuCLyGfAjf3yoKOQnYY mwHB4epNepC2KyjOP2CEUn x2s2Yh86V44vE4IfbBM+PG XsbHV5xBY5 eC3jVnMyJnV9NKqoD114Zm IicHXcKvsep7jwv7rdfRg1 CtT5PYQeyyFtqBpvFZI9b0 QxFq25I22g IHdpZHRoPSIxNSUiIHZhbG cwll7ebA0rFi2+PGNvbCB3 xMP0wF3bIiJuHeE7GWelQ2 49InRvcCIv Pzdje2vkp6nicSw1MaMgRJ DcgdApqIgeXWF4d6XgUz12 K1YssDltc9YwCse4mx62pH Sto3W9wJQ6 N9ZmNSLsprxoqNHvjAmmBT 6lFLUkrbspCMNsiZ8eNWFe M4r7RzCcTmS6SDuqB7Mgxl E2XNOdjFKf CXpoJNI9P38da5M5XHSeYM HySLK0tAT5hS0qzWxxiwrb bGVmdDsgdmVydGljYWwtYW roH035CVFu cOyuEKYuxC3lXSDopKPieV nhMA1eZGLflarjHlMRHSwA LCBCUkVOREEgVzwvdGQ+PH SgRUZ6rOce UTpsAILycI8iGRXtG0v1Ix VrDbU8SLftY5QnUYBeqcnb Rb38yT1bLvIvBwQ7FVshD2 HhhcU2AVLm wDHnEPfoNMS7B98yt2R4QR CnULNeOZO6bEC4mO7xhCty bjogbGVmdDsgdmVydGljYW txJFmnA440 DPJnhUvhKpL7EcG3MsD3VN J9E5BqIvj1RZKqgNydMH6k mJGnDOdqMu5pqUbrxAssHH 4wNTBpbjtw WYQqqE2uVEUvdQPlkLqwQR 7sJLVffewnt670EjFiPJR4 BJZczJViA4BqiE2mUyPdWP MxTQQuV1Zl jFKaZKbpJ510OGpuCtL4QZ FuntHuW5LaNGIvgFprLbM5 d0C1Gp68SISOLYBzfubhjI Q+PHRkIHN0 eYskRKhpQMLidT1iPLMiF0 q8IkWoAxB9SPxbE8HyZKLq udsjOo63uE6oKzGsTqE4HZ xdY7UejhD2 TBZlsWTaGDrhYHP0G47zu9 W0DPZsYHYhWKA1sJP2pC1q bGlnbjogbGVmdDsgdmVydG ljYWwtYWxp Z433ELIjtNxjMrLFJNACLI wvdGQ+HQTpJPC0fIjiUShe MLXqxU1fRZVqU2r6VzNvXv M7DCagU0Ov JHRsjhsrLp25sJ6xPqVpYl K8FVeiE0FebfW2EQDzzVLv TKicLSG6Z88eh6S4DIXwXX IzOKF4mFQ5 wF6ycCipstxioLFvtYkmqc HtfMkvYJfbAEhbU091LJUl gInqRzNovUPXtBNjDRL2XN 75MT57K3Ua PjwvdGFibGU+PHRhYmxlIH dpZHRoPScxMDAlJyBzdHls JI8xAs5qIHQkCTSazYspyK CfSrQqj9cj XJQiULitIN0qjUbbZ9CriN W0MRQct2h4Li19M01vK2Cu dXA+FZKbtWA9bME8uE1dSf NeViI6MVaj C229BjBznISjGeixa7srs1 exuEm7VmLcKYXnmmWnjEqe BVL5b9KiGk83E09aFPbcSJ RoPSIyMCUi GABllIhmuf9ltP7wSj5+PG XnxPU7jWL2hJ4sTeFxYdM8 MMhuD820CrTuaCRjFjucY5 0sL7LzfSK+ EMVvFgj0MEGkcYyoVG3anD OrEBmkAi3fZOU6AzYqMaYu PPtgA9CpLVMeeparrkwkjO I5XNPxAXPr zF10Mm6rfWogBg5oNDLaZV R5WFJnkXDaV3BrnY6lXrLr ZXYyZKYsV2GebRRgSOfbZ9 87ZWlpSnL9 TEPfmbQsS9FlUMPwjGnvNd L9y6M2Tv2CxAyxaACjML0e MiSwADp4X5PnFkh4AFZggY oaUQ5vuYMc JKvlDc8zkVqwwQjdZO3vWC Qvoerwz138BlQgd2anJBDt dRNnGIewHGT5A01xd8V7MC MwMDAwMDA7 bFA5xQ7ilPzodmxccOHgeU xqbyXcpTdoKMdyPOboP802 HJXiyAymHkJWOpj0J4RiXj u5IPWhzRwm GV1fhYRrMCdzQb3vqXtagX swJK0gZXRsmsjuk702UmQs o7qkUGIhsEOsHYoxSOI2Z4 9hf7Q6VECx FONgPGW8hUP9sY3xcFqksh ogbGVmdDsgdmVydGljYWwt BNrpX600RXIqhNowFa2YFe r0Z7RxUvo4 DEBfaUsaZG2fyBAuDXbdXi 2dfDpdmMgxMA4cDXEbjpbl d595BmVqt8uiIUIavRMoXX dvFHJ1I74c k2X2TKUwNNYvDPO1lGB0iA 1hbGlnbjogbGVmdDsgdmVy qGzcKBnqXHbpV486TTQlzM snPlBheWVy OjwvdGQ+HE43nh29X0AlMx boDqi1JOLhCRG6lTB9iK9k CCEwLCcux4Q8gGE3W8Yzno Fjmi3lp1rm YXB (more content not included)... [facility] Consultation/Specialist Note on 01-11-2022 Consultation/Specia list Note [id number] [facility]-10-2022 Consent Forms [id number]#[id number] [facility] Recordon 01-10-2022 MAGR Intraoperative Record MAGR Intra-Op Record Summary Primary Physician: Ambrose Rodriguez DO Finalized Date/Time: 01/10/22 11:08:45 Pt. Name: MIRNA QUEZADAO.B./Sex: 1950 FEMALE Med Rec #: [id number] Physician: Ambrose Rodriguez DO Financial #: [id number] Pt. Type: D Room/Bed: / Admit/Disch: 01/09/22 [...] Role Performed Surgeon - Primary Anesthesiologist of Dock Pumper Record Time In 01/09/22 16:20:00 01/09/22 16:20:00 01/09/22 16:20:00 Time Out 01/09/22 16:57:00 01/09/22 16:57:00 01/09/22 16:57:00 Procedure Carpal Tunnel Carpal Tunnel Carpal Tunnel Release(Left) Release(Left) Release(Left) Last Modified By: Aurora Collazo RN, Barbara RN Long, Barbara RN 01/09/22 17:23:23 01/09/22 17:23:23 01/09/22 17:23:23 Entry 4 Entry 5 Case Attendee Duyen Medina CST GREEN END DEPARTMENT SUPERVISOR/Savanna PEÑA GREEN END DEPARTMENT SUPERVISOR Role Performed Scrub Personnel Breakdown Worker Time In 01/09/22 16:20:00 01/09/22 16:20:00 Time [...] By Aurora Collazo RN Scrub 10% Povidone-Iodine [place] Prep Area (Im.270) Elbow and forearm, Hand [...] of tootie (more content not included)... Normal [facility] Anesthesia Noteon 01-09-2022 Anesthesia Note Patient: DANI QUEZADA Age: 71 years Sex: FEMALE : 1950 Associated Diagnoses: None Author: Clint Bernal MD Postoperative Information Post Operative Note: Operative Day. Anesthetic utilized: Monitored anesthesia care. Health Status Allergies: Allergic Reactions (All) Severe Augmentin- Angioedema. Problem list (past medical history): All Problems Cigarette smoker / SNOMED CT 168056151 / Confirmed Diabetes / SNOMED CT 006182899 / Confirmed H/O Parkinson's disease / SNOMED CT 874743127 / Confirmed History of heart attack / SNOMED CT 6540884495 / Confirmed HTN (hypertension) / SNOMED CT 0005715384 / Confirmed Physical Examination VS/Measurements Vital Signs [...] on: 01/09/2022 16:59 EDT] Clint Bernal MD [facility] Anesthesia Note Patient: DANI QUEZADA Age: 71 [...] All Problems Cigarette smoker / SNOMED CT 684279965 / Confirmed Diabetes / SNOMED CT 314724951 / Confirmed H/O Parkinson's disease / SNOMED CT 040715770 / Confirmed History of heart attack / SNOMED CT 5635314981 / Confirmed HTN (hypertension) / SNOMED CT 7278001794 / Confirmed Histories Family History: No family history items have been selected or recorded. Procedure history: Cholecystectomy (55455206). Triple coronary bypass (929285233). delivery ([id number]). Comments: 12/30/2021 13:19 Yana Miranda RN x2 [...] pattern. Review / Management Laboratory Results Plan [place] [employer]hesi[employer]#(ASA ) physical status classification: Class III. Anesthetic Preoperative Plan Anesthesia: Monitored anesthesia care. Anesthetic plan, risks, benefits, and alternatives discussed with the patient and/or family. Patient verbalized understanding. [Electronically Signed on: 01/09/2022 15:07 EDT] Clint Bernal MD [Verified on: 01/09/2022 15:07 EDT] Clint Bernal MD Normal [facility] Inpatient Patient Summaryon 01-09-2022 Inpatient Patient Summary [place] [id number] Patient Discharge Instructions Name: MIRNA QUEZADA : 1950 Patient Address: [address] [place] [phone] Primary Care Provider: Name: VILLA NICOLAS After you are discharged if you find you have any questions, please, call [phone] ext [phone] to speak to a nurse. Discharge Diagnosis: Left carpal tunnel syndrome Prescription Information: If you have been given a prescription for narcotics, seek immediate medical attention if you have any difficulty breathing or any sudden status changes such as confusion and sleepiness. If you or anyone you know is experiencing suicidal thoughts, mental health, alcohol and/or drug addiction problems; contact the [facility] 16/10 Crisis Hotline -Text 4HLYP ys 975569. If you received any narcotics, sedation, or [...] business decisions or sign any legal documents [facility] would like to thank you for allowing us to assist you with your healthcare needs. The following includes patient education materials and information regarding your injury/illness. MIRNA QUEZADA has been given the following list of follow-up instructions, prescriptions, and patient education materials: Follow-up Instructions With: Address: When: VAZQUEZ COATES [address] [place] [address], [address] [place] [address] Business (1) 01/18/2022 11:30 AM With: Address: When: VILLA NICOLAS [facility], [address] [place] [address] [address] [place], [place] [id number] Business (1) Medications During the course of [...] oral t (more content not included)... [facility]20[facility] Phase II Record Summary Primary Physician: Ambrose Rodriguez DO Finalized Date/Time: 01/09/22 18:22:17 Pt. Name: MIRNA QUEZADA /Sex: 1950 FEMALE Med Rec #: [id number] Physician: Ambrose Rodriguez DO Financial #: [id number] Pt. Type: D Room/Bed: / Admit/Disch: 01/09/22 [...] Signed By: Laura Lepe RN 01/09/22 18[facility]22 [facility] Preoperative Record [facility] Pre-Op Record Summary Primary Physician: Ambrose Rodriguez DO Finalized Date/Time: 01/09/22 16:37:48 Pt. Name: MIRNA QUEZADA /Sex: 1950 FEMALE Med Rec #: [id number] Physician: Ambrose Rodriguez DO Financial #: [id number] Pt. Type: D Room/Bed: / Admit/Disch: 01/09/22 [...] Signed By: Aurora Collazo RN 01/09/22 16:37 [facility] POCT Glucose Levelon 022 Glucose [Mass/Vol] 118 mg/dL Normal 74-118 [facility] Comment on above: Performed By: #### [id number] ####[facility] (DEFAULT)[address] [place] [address] Patient Handouton 01-09-[address] COLON [employer]IVE [employer] INSTRU[employer] SURGEONS WRITTEN INSTRUTCTIONS: -Keep your hand elevated above your elbow for the first 24 hours after surgery -Wiggle your fingers frequently while awake -DO NOT lift heavy objects or hydrology teacher forcefully with your hand -Change your dressing [...] or concerns, please call the office at [phone] -Follow up as scheduled [facility] Progress Note - Nurseon 12-24 Progress Note - Nurse Spoke with pt and informed her to be here at 7am and NPO after MN, she verbalizes understanding. [Electronically Signed on: 01/06/2022 12:05 EDT] Itzel Dubose RN [Verified on: 01/06/2022 12:05 EDT] Itzel Dubose RN Normal [facility] 2019 Novel Coronavirus (CoVI D-19), INDIRA LCon 01-05-2022 SARS-CoV-2 (COVID-19) RNA INDIRA+probe Ql (Unsp spec) Not detected Invalid Interpretation Code Not Detected [facility] Comment on above: Order Comment: [id number] [facility]#[phone] Result Comment: This nucleic acid amplification test was developed and its performance characteristics determined by [employer]. Nucleic acid amplification tests include RT- PCR [...] detected) result in this assay. Performed At: [address] [id number] Birgit Andion PhD Ph:[phone] Performed By: #### [id number] ####[facility] (DEFAULT)[address] [place] [address] Coding Summaryon 01-05-2022 [facility]oding [facility] VbldxxfrLWh0hAg+PGhlYW Q+NT2GEEEbF65ftIDmgE8D E7iTGN2SUQLZCSAATI1ZCH 1qfJO4LOnqD2GvskDb PkhkmUYrNO00PLp2WMC3lY deAVpgvA6exHFhZ0o7AxZr ZU90mQ17QIfxRMOkQyQ5Lb ZpbjsgbWFy X3unBfWxwNNeNzt+PHRhYm xlIHdpZHRoPScxMDAlJyBz hJzcNP0qKp2zKYMjHJBylW xhcHNlOiBj p2kqCYFjUDhdWQ8hqCmaP9 NtsCA0QLYhb7f1Ii20aDB+ CZMdNIM2sOxjHJdgv588Dy Jzt8xgFQB7 gPXhGTmfPOA5O58rm2B6TO MqKNRxBJL2tHV2iG7qhSbx rqknP9WksZTtTtV1VSV6tC PtbT1ctTng nuqfcH7oHte+Z87IXG8BAV GEWO4JDwg3L0WcDsxewDE+ TU04GOFkQE49eVZeiHCfc0 iiyZo8OgXg WTLsTUZ6vRaoWDvry1ShGR UcJ62frMEhv6T2WPBqgHqx vXRgToTznXU5dT8fFJctbl smz6mcrknd Dpmvm5tixn09hK98N60wOM tcGZSiXOX2QDRySINtvMce yf4qbR5gTw7+BRnzp3yrj1 jpnYr0VpVd FIEbicPxaQsgRHC8s5BlPx 60V1RpdEbvf3YhUzw0wf43 vZRcn0H6lOM8LWjpIVPrhJ 7uLXmbBzS8 BMWkWwUhfB69gZPgOVlkGk 8feFzriOqkPZ3tPUYswwou XHFufT0gKQLveMUhfCmcEB 4wNTBpbjtm w688UvDdQCA0MLFgkDCfJ1 CxmV5iIoKeROGaRPRaV4Tq oCQkPFzeL765QCmoHjX6ZL HgrbDkU4Up VPMfvNvhWxW2p3R0Sn3Uw1 MneofgJVC7JNihVUJdHnYk VdAuQqW2O5TqJtl9AARsoQ hgEI2hJ4Yb XQExqvajoswnaTA8MVAnFT SszR13aVVrKBavIu5ae6B2 r110BLFdHPUhdK04Rx9mpJ ogMTBwdCBU aU9elipry6uebrxgTbNgBG VnQIi8NOp4VAJmiOnxPuTl ANA0PwW3KYA1sIWraG5pcM euattcvF3a Oyc+Q99ajH4tXTQ7OOA6hz gaAFYdglQaVQ73ND23A8Wm PjwvdGFibGU+PGRpdiBzdH jgYV0pFzAu k1flg1MyTQkjL5UzOSPoTZ pjHxi7JFXqWMY3hXT9nK3p YMJbIYcoi8B6hTB4A6Soho Igto2kb0ho LRGfGLanG29ctUFpv9X3MN ZsqMF8MTIaqPnyCcSpeW32 Oyc+XXCqkKjot2BmAdynj1 ipn4pwwMo8 IhKgXXSxgqCbqAwgYBM5e8 IiAc64A83xYKxhQBEhYGYw PGKhACZuzNivui4dnR1bAo 8+PGNvbCB3 pKP6bB6gEEDwHsH4IRjxF9 17AxRazPMgTxzms7ivv8ar fKp7OdYuYUTtopKwqLkbCL M0k3GnEv82 S34mFBpeWBYtJBHlROYmVU YxeVrflk7juT7uMa2+PC9j k4uzuy33oI60sOG+PHRkIH W3pXkkSBwm JXSmyG0gVOwhHnC5EOFvSi GgqC06qFQvQOdkUm6fyYbe hMkrLS2oGRWxekkjf676Yh Tix9zmPCMa hFOxTIvmUUZ5X45bn9B6DJ CkYNCoPFH3xRM3pH7grSzq bjogbGVmdDsgdmVydGljYW wiKWnlR036 IHRvcDsnPlBhdGllbnQgTm UuLXs5J0SqXcx0OAVypIan NG3fkIFiDMnaZs1uwYhvcN jdIG8xQUAr jhpax896BpApe1xzTSVvwB ZrCZrzNZY9C47vb2Y8XSRx ZARbQSE1tZE1kS8jpXuvsk ogbGVmdDsg jiPueIhcUJosCUcsS543TE RvcDsnPkJpcnRoIERhdGU6 CX11RP86oWQon7V6nSG5O3 BhZGRpbmct pxcmwNC8GSZpZXJmfU56Dt 4wzEqfQe8dLVAeCFY6REGt aMOhM3PqiP0uKfZfEFDiJK HtR1LgsGBg AJguG079EWciJnS1ZOCwzf OxO2EkLXGupAxbWgO5z2Q0 Sc8YZ9E0NK79AL93vLEjq8 A9zVO1T6Fc QNDpdfdatjehqHY8IQSvBK SegM89Wx0zdTwgQi4sTLQx GBS1JZEwvOJmB0TxgQ9eEn AjMDAwMDAw Y6MfvZLlVTxzS068HKerQo R2QQUualFuY4DmBWSdyImu QmA7v4H5Lm0WEVx1WG27UC 25aSPjg9L3 rWC8H0VlPJJkhoqwjngyiE K4LRHtICHixO04Bh3jtXcp Qy4xBBKjDII8IADqgZWwC2 QfxA6qQcFf LFEoXFOhJ8YjpAKbCGouK4 59BSqoItA3MVTkirDyM2Fd UJGpxBshExR3f1X9Uq0MLB BoBQ01BZI3 gJM4QK49HS08Z6NqLwjyhA FibGU+PHRhYmxlIHdpZHRo JTwyIECzJsYskJadMI7iKe 9yZGVyLWNv gQxhbGUkVqHbd4jxHEUyGB biKG6pnZguC9RtrQM4QEQp b5e9El99R40fT0RpxAX+PG WcxFB5yBX0 oV8oOdKlYjB5FAovP240We NxvORqLpesz4yus2dwmDq5 TgM0MJHgewJbjYfpMWT5t5 PrDm27I18p IHdpZHRoPSIxNSUiIHZhbG wust9zkA1kIm9+PGNvbCB3 lVL9kB1iWvLkQmL0WOpdP0 49InRvcCIv Rehyr1lis0nceFc0AvVfIF XiguUckYfoEQQ0y5BjCd38 L8MldNyap1QxEgo0ia67bX Lgw6Z6sAF2 X6TfQFWbprxndWKskLdmLI 5dXVOasqedRCEdvA9fSPNn H3l9JtOkYzS2KRhdC1Ctmd N4HPBjfJXq CSvyQQZ6Q28sl0W9DIWiHD GkGTT0hMT3cJ2dsCheramu bGVmdDsgdmVydGljYWwtYW wuE743FFXm kDvbZEMobW1cJPQwgAJrgN ntGG7tCUDtwhdyItDVGZwV LCBCUkVOREEgVzwvdGQ+PH CoLLM4bKkn CHdbYOBivE8gCAFkT9q5Pv WuDsC5IOcsA8WgUUTsrijv Cp99fK0jIaLpEaS4NYryJ1 FyigL9KYBi mSVsTXzeHUU8U54kt3G2NT XdJKMcPNY7sHB6yV2ajKep bjogbGVmdDsgdmVydGljYW avRRdmA687 ACTmtAslXsU1IqI7QwX1XW G4J6EzYjd9WJMhmOqmAV6p gMIdEQltBh9jaZtbzRkrIF 4wNTBpbjtw ONAzxH8nJRMibNFstBpgRN 2qAAWbcvzbb010FlTdZUW2 TPUibLJsM7XduA2hYrExTZ BrSNCcU4Xv zEEzQDnlL452YAlaZsB0NP WwjdDzV4IcFIOakBayVpE7 c5S4Ff36HHSGMRGnscwzjS Q+PHRkIHN0 iRrwETabGANdpM6wEJPlE3 d6EhKtFnF0YAklF6QjPYHc sanzAk84bU5vWeByWhD5UE pwQ1QoanW1 FVQseLLiXJjpMQY7R22qn1 K3ETMuAQCrLGM4gZU6bL0y bGlnbjogbGVmdDsgdmVydG ljYWwtYWxp I409FENqfPyqUiEQFQBIZC wvdGQ+OGDzHXG3aBsxXVep CODpaQ5lYCYhY6h1UdPmGu U3ULsaK7Xd JHMopcwkGm22dA3nCjGaDx Q9FDyqT4SocuP9AZVmbQLm YTrkCBI7A14as1S6HKZuFB SlEVP3uNJ4 oY6ehZbrycuywSZwfErnil CmsDokTSwaQRzdG927NAOs tCngJt7CUD86VE05W3GhMr wvdGFibGU+ PHRhYmxlIHdpZHRoPScxMD JhMkAyqXdpWJ9lEm3wXWCk BHRnuLbdlPVfMvUur5bwXD EnDJzsNU8m iHfcB4UfnUJ5RRXgq2i9Sp 69R16gY2XuqGY+PGNvbCB3 kMS3jB3rPtGrYfT3GIyaN0 49InRvcCIv Rdcmf0gej5vafCh3JaCzLK EhmqChxJxoKCI5q6BkSd32 C10fVYtiSCZzADVnEUHoPV MzgQktbz4n pU0zPg7+SENwhGG3uOD6pP 0vDvTfVnT0GQmmK118DnEy jFEbKmhtE05sY8IlrEL+PH HoZtr9NXEo yXpdBD2eoYDaZKxiTa7tVE C7GqQwUkCqKSwcA3TwYUEe empekgxpxIS4VTCzQQNziM 81Mk7yuJex Ua6lOJDfAYQ4CLUtmATnS6 JeoF6wPvHtVJMqQDAhH7Ql uHJnHGvkQ739OSjpEeZ5OT UnsuTyP9Wo LXMzvAqhQaE2s8P2Hy9OpE ybaAQrFM8nXpElQMb7S1Hy Akn1OXGnrGbwEI7gfUAaQP hyZn1bmTxw pAldKQ9eIMMknrpqr920Th Ebv3ybZVNpcZEwQXozHLF6 J29os8I2OILaGZSfUOH0yN J9hX5qkCtx bjogbGVmdDsgdmVydGljYW vdXCxfR785YJCqtFitFgQO Rgi0U4ZoFku5KWMyoGjwOM 0ncGFkZGlu Yv4vqOuzaIkrDU2tBCLuij dxl581AuChl3opEYAdzTJu LKaiNBD2L35cs8E4GXPlSP FaDML8bGM5 qZ2maFsowysafSKbjLwtfn XrjNtmLLwdPMheE473LQFr jObfKc1DCho5B0VzBsd3YO KhhWysYU3q cTRwSWgdZl5rwXfppDiuWP 3mTBNsblrue089CsNgw5kd MUQzjRTbGPzyONG9V81dn0 M4GDMmRKLj HCN0dOI2eD5dwAjqgfdbfI VmdDsgdmVydGljYWwtYWxp F009EEAwmEyyRfVpjFXiZl wvdGQ+PC90 mm32P2NuQejnWqg2BLMgFO I5mTI2lS7iRYCyYGmuc8R5 fEB8O0EicrFcnc8ja8dfBH XgPVytO96a bGF (more content not included)... [facility] Coding Summaryon 01-03-2022 Coding Summary HTMLBase 64 HenacewkLPs8uVd+PGhlYW Q+JL7JKARsC61vcEZslM6P S9vUHH3AHORKVDVXKV7NLK 4hfBR1FTwwJ5EnjgGb XsudmBDiUB82JOl9UZR3oG dgJLfzxD3vkODnG7e7RpBp VY65kG54ABdqNQEuIdO5Tb ZpbjsgbWFy Y5seWkEnfUQoAwi+PHRhYm xlIHdpZHRoPScxMDAlJyBz yOffTP6dAb8yYBZyHESrvH xhcHNlOiBj g7ulKBCwVLehMA1czOtaP3 NioFR1PTZcv3f4Vr54oJG+ JUTsMPP2vNtcKNpyv051Xa Fzv8imUXY5 tMVwBWnyFPE9T09og9H6JP GeJSTsTCP4rKT2eI5pkFjs rdnsQ0DkaIXbDuU8QNX7nE AegH9nqPav kcjczV5dJll+Y80ZBI7AVA PKJB6EIvd1B0IlVbjndDW+ UZ10SHSeBO88hIGcoHVjf3 jgvDx3OhOc UCTbGON9mTajCGxbe0MuWS FfK61giPDzw4C2YIIqsCxu jIGbPbLlfSJ3jG9qMEkfuk gyo3aqksbt Ohddh7ixce15uN82S46eUH znHNFwSCY9MHXyEUEmvEqi bp8asN4qPp3+NOyin7mft6 esdEg1KyXa NNMyctTdrRhvNID6v8XyWa 15Z3SaeUflf6ZjGkc5eq86 nJFdw3S8bHS3MOznYBGfsF 9gXDfsQyG0 JNBmMbGkcU68hDDeWHbwJt 2kdUygpKcgBC4cAOAtbolw CVUnlH1yMXAqmRUhfDiiBI 4wNTBpbjtm w972XfCmMIX2BEUisHMjB6 RciN2fAmRkFKCmBVGvO2Bw hCJhTCqpP536NJyhOxI9RK OxjoUzQ8Hc UKTzyYpuDkK9g7U8Ho5Ml7 LvdajuOBY9YYaxOHIoNsXp TyOaPuR2O1ZlGmb6XFXjfF opFI5oJ9Zd FEXdsjnssvgmeMH8XVKiZV HwtG18sKZuNIgwXt3my8Y9 w229CPQbERMamN17Bo3xmS ogMTBwdCBU sG2idpwik9vlhujcOpXvGP BtSQk2VQm2BHXdpXjjBpSw DDB3AhT6AEP8wNPakA2cbE nalclddX5y Oyc+H87lgJ7rSLQ2PVX1pr bcJEBbafGaFC97OS27W9Nd PjwvdGFibGU+PGRpdiBzdH pbPL8iIgWm o2jag9AjHMnsJ7EjYZDmZB tqDjc4QZXyOOW3gFU7aC0b PSVtHZixw9M4eWY6G7Knty Dkrq6zh2ky GIDwKWmeE18biUUwm4L8AP SqgSC7XGNwuYmzNuGskU67 Oyc+KKNfrYenj4ReWnhgx1 qcs5ugtWk8 VsAyFBOveoJreJcdIYQ1k9 UzRf26C92lOJbuOTNwXAOt FFOhDDXtuQwjmx1ldX9aRm 8+PGNvbCB3 nSL2gX0aIRNiXcB2CFebG0 11OgEtgLVqKzcqq9txh5ds vBg8CoVtFHThgiCeoJnbDB D8s4AtWh41 W49aILgwVVUkIVKjRUVaCY ZmbQfrhc4syJ6uPm3+PC9j q8alwt54iY31fRW+PHRkIH T5aYtjJUqn ZWSgjS9rOEwfKpY3SNRhDv LjbK74hQWhFQpfCn3hhPtu dHraQN4iPOWfmcrbv787Xt Mli8ofVRAo fHEqJPsfHBN9X72jc3F1MQ GaUJMvIRV9dVZ8kM7lqRfh bjogbGVmdDsgdmVydGljYW dxQMbyC577 IHRvcDsnPlBhdGllbnQgTm OlQTc0O5EdEos6JTBjfSos YG4iaXAfVZskBu7wwAdoyD rlYE3oWZVb lwmtg840DrKlo6tsHEBveW GzNIwmMTO1P51ie7K6XFQn YSGzEAK6mWM0aB8lpGrrhx ogbGVmdDsg hdTeuCioQBrdXXuzB556DF RvcDsnPkJpcnRoIERhdGU6 PZ13YX20fWLyx8A0mSX0H9 BhZGRpbmct gfrxeRB0EFFtDFAemW46Lv 2zvYjxXe7cSBPjMGN8OJQw iNRaA9QcuT4aRgYaNRRrUJ GoS3LgiDXt FCjtP386QCdzYgU5HRZcjz SsC3FpRVBisJpbRaQ7j8G7 Ku1BU1Q3HI75PI56uNXdo0 Y8iXQ1Q7Bx CZJbhywtujphaIV0HFYjQM WciK11Vd1xyCanVf8eGSXv JJX0OTZkqGNeH3TdqA5jEn AjMDAwMDAw G8NkqQTuTUrfM496WBgoJp M4DQDqxtQcH1FrHMPyhJdt ClW7e2S8Gt3GBWo9YE46GX 79sMNqd3W7 xYG4O8HyWYHwlkvecbuutD J9VYYeCGBgkE72Gk5onVca Bu2kXJGkRBY9EICooXQfL5 HxzG7tTmBg EPDpGOJcK7VuzZHtZCilL9 48VJkxKuU3NPImwkLeN0Xc CGEkhXlzJeB3z6P6Nc2UXZ ErGU04EFV9 oHI5IR34OS13R2KcLwojwJ FibGU+PHRhYmxlIHdpZHRo HQstVENnKzKguDirIY9aCx 9yZGVyLWNv rGkmeHScHhQny3ziJVVoQS ydWC2jkOmfI1IzyMO9GNQs t1g2Tn12E70uR9SzbIR+PG XzgST3tBH8 nV8tTwOtOvA1YCwxW355Nn WhhYIxTbnxb4fuq8gtnCg8 SgJ6SBZifnKfxQtbNDJ8g4 OgDo23I81t IHdpZHRoPSIxNSUiIHZhbG edgr5pwQ3uNk1+PGNvbCB3 hGG1aJ7sPbLlMvK9BOjlC3 49InRvcCIv Heanc6nyw7arsGz3IvAoUW WtzlFftKkjZFX4b4NpIl82 U3VviLjgj8OuWqw2ti80nG Nuu3W0hFL0 P0NcHLEdeoueaGMnzUtnST 7xTXUwnndtCUOxvV8sREFv S5n6QmFxOkA9OJevZ0Alfd A5FBKvaMOo BFphWJR2T35pi0E2DJFgBO HjWAT3nQP2qX1oxAqlshgt bGVmdDsgdmVydGljYWwtYW moQ734LORq kKkkHFFnaT0dFWPngLJoeC mrTA0rNPEsookkSvBDPTsT LCBCUkVOREEgVzwvdGQ+PH YkELY2eYhc CSkeEGOesD2wFAJpA0n0Vw MlYaD0EHfmR1IcLBQatvwu Oz99tM8zJnRbNvX7NNugT6 XvvgR9UKOt kHDpCFhfGVR4J46qc2W7JL IkOPYkPIA6oPS5dT5kbNgl bjogbGVmdDsgdmVydGljYW wkZLkgT811 JGHucBayAwB8GtG9RlN9QS M7Y4LwSui6TQGkzPwjLG3h mZPiNUaeJz5wqPtddQlzEH 4wNTBpbjtw UKGzdG5iXEPuaQKxuEzqTI 9zWVYrrzibi819RaAiXFW7 CAJwvOYnD2YmqV4gQsXjOR VlKFZwC4Sa iPMoDMibW523LXreAbL7JG LhzoTbR3GyWVWipVnkFnV7 h4W1Rt09WVVQEBLobszrnS Q+PHRkIHN0 jAwtWJkxBFEjwV3zJPJsV3 z0RbJbZvA5GUczF9MmRDBg cchqPt52lO4sVmWlZgV4WZ azR7YrrvQ4 PJTczPBrWRvaTKW8A92by9 J4GQZoDRKdJQS5aEN8wE5x bGlnbjogbGVmdDsgdmVydG ljYWwtYWxp R501EJCosVgySuSYFIFTWN wvdGQ+JFDvRNX1hTqlOYrr HBSroH3cAWAjE1l5FlWnOt T2OIgeY1Yd WLHfwxpzOh37qF8pZuIjUf G2YLevI6ZplpS1FUGmlZSi VUltHIC1E99xw7P0GJBhVY SmKEW9zDJ5 bG7ziKekuhjmjEAujSdref NppDyyLDfgHNgzB255LHQe gTuvRy7ISA51ZG04Y9JkLi wvdGFibGU+ PHRhYmxlIHdpZHRoPScxMD NiGlAwcHbeOH8iNk0rMDCl HZWbyJhqeOQnKiIzm9reVN CdANmxSK4b eNfyT6PuiRX0ISIrw6g5Dx 47H85yT5YnwXL+PGNvbCB3 aTJ5dD0fEcIeFbA7HDjyP7 49InRvcCIv Vgkqg0hxx4ofuLo2YcRsXN GckjQyxMqzOFJ6k9CjVl47 V11iBOdnQMSdKLCzRXMnMY TytMipdm3q wT9sId0+JBQopDE0pVT7dY 4ySgEvGpI2DHdtE899IuPq hZDvLmqnD51hF4XbbOV+PH JaWpu8CXXj zWjmYS4lbEQtEWnkQc5aAL I5QvOnYcBjTUcaD0YnSKGn lfgqvpwhaRS6HMPjVGBkiM 52If8yrOdi Xe7uCYHfXGW3TMUskUZjM7 GboL7lAcKzKEPaZZIeL8Lq uXYyYIeuC450JHahQlK4OM RpznLaY9Ha JJLuhZsjXbX4r9J8Tz4NyH prsUYpKD1hDyJbEOl2F5Ne Hzn1XMNvuMyuJL3bsPJgFV okJm3hmQti hUwjJP7hAEUlilacl727Qi Tsp2rqISMqgRSqEJasRSN1 Q13on5C4NETsWVJnQYN3pB Z7nU6uhAzn bjogbGVmdDsgdmVydGljYW tvSWfdS847SCYtkAnjAcBG Pzy7F9AiAht6WRGvtWswYM 0ncGFkZGlu Yz4vgYamxTcqXW8vFIYrng wxx055VxRvt2cfGAIkiWDp RLvvKQG1F03ra8N9QQFnBW EyFAL2hHV8 wC5mkIsecaktdNWonYlchm EznJsrIQmhKJiwU354IGDj fBucSt1RLag8I1BvZcm9AV WukBdeWH4q fELwOHogMm2plUmrhSspDE 3sOCDtlqyiq145YbHye8jm HVMasRIvIMqbOCR8P93fp1 F6AYQbFGIt SZK4zWL7dD4wjGpkzlyhoK VmdDsgdmVydGljYWwtYWxp G648HTHtlQbaYjSdjNZwJc wvdGQ+PC90 ge47H7SuWmmfLhg4QHXdQO E0wRO2tH3aCNPrHErwh8I6 zXB7Q4XxkdKshd5dm8atRA CtBFwkR15u bGF (more content not included)... [facility] Progress Note - Nurseon 12-24 Progress Note - Nurse PAT review done per Dr. Odonnell, no orders received. [Electronically Signed on: 01/02/2022 15:09 EDT] Yana Samson RN [Verified on: 01/02/2022 15:09 EDT] Yana Samson RN [facility] .Auto Diff 1on 12-30-2021 Auto [place] % 7 % Normal -12 [facility] Comment on above: Performed By: #### 1 [id number] ####[facility] (DEFAULT)[address] [place] [address] Baso Abs# 0.0 x10 Normal 0.0-0.2 [facility] Comment on above: Performed By: #### 1 [id number] ####[facility] (DEFAULT)[address] [place] [address] 04881 Basophils/100 WBC (Bld) 0.3 % Normal 0.2-2.0 [facility] Comment on above: Performed By: #### 1 [id number] ####[facility] (DEFAULT)[address] [place] [address] Eos Abs# 0.1 x10 Normal 0.0-0.4 [facility] Comment on above: Performed By: #### 1 [id number], [id number] ####[facility] (DEFAULT)[address] [place] [address] 77569 Eosinophils/100 WBC (Bld) 0.6 % Low 0.9-4.0 [facility] Comment on above: Performed By: #### 1 [id number], [id number] ####[facility] (DEFAULT)[address] [place] [address] Lymph Abs# 3.5 x10 High 1.3-2.9 [facility] Comment on above: Performed By: #### 1 [id number], [id number], [id number] ####[facility] (DEFAULT)[address] [place] [address] 07857 Lymphocytes/100 WBC (Bld) 36 % Normal 14-48 [facility] Comment on above: Performed By: #### 1 [id number], [id number], [id number] ####[facility] (DEFAULT)[address] [place] [address] [place] Abs# 0.7 x10 Normal 0.0-0.8 [facility] Comment on above: Performed By: #### 1 [id number], [id number] ####[facility] (DEFAULT)[address] [place] [address] 86478 Neut Abs# 5.6 x10 Normal 1.5-9.2 [facility] Comment on above: Performed By: #### 1 [id number], [id number], [id number] ####[facility] (DEFAULT)[address] [place] [address] 19560 Neutrophils/100 WBC (Bld) 56 % Normal 44-88 [facility] Comment on above: Performed By: #### 1 [id number], [id number] ####[facility] (DEFAULT)[address] [place] [address] BMP Standardon 12-30-2021 eGFR Non AA >60 Invalid Interpretation Code [facility] Comment on above: Performed By: #### 1 [id number], [id number], [id number] ####[facility] (DEFAULT)[address] [place] [address] 65882 eGFR AA >60 Invalid Interpretation Code [facility] Comment on above: Result Comment: Operator Prefinish abigail Kidney disease could be indicated at eGFRs of less than 60 ml/min/1.73m2. Kidney Failure is indicated at less than 15 ml/min/1.73m2 Performed By: #### 1 [id number], [id number], [id number] ####[facility] (DEFAULT)[address] [place] [address] 98227 Anion gap [Moles/Vol] 15.0 mmol/L Normal 5.0-19.0 [facility] Comment on above: Performed By: #### 1 [id number], [id number] ####[facility] (DEFAULT)[address] [place] [address] 76476 Calcium [Mass/Vol] 9.2 mg/dL Normal 8.9-10.3 [facility] Comment on above: Performed By: #### 1 [id number], [id number], [id number] ####[facility] (DEFAULT)[address] [place] [address] 10380 Chloride [Moles/Vol] 104 mmol/L Normal 101-111 [facility] Comment on above: Performed By: #### 1 [id number], [id number], [id number] ####[facility] (DEFAULT)[address] [place] [address] 40458 CO2 [Moles/Vol] 23 mmol/L Normal 21-32 [facility] Comment on above: Performed By: #### 1 [id number], [id number] ####[facility] (DEFAULT)[address] [place] [address] 00078 Creatinine [Mass/Vol] 0.51 mg/dL Low 0.60-1.30 [facility] Comment on above: Performed By: #### 1 [id number], [id number], [id number] ####[facility] (DEFAULT)[address] [place] [address] 87895 Glucose [Mass/Vol] 103.0 mg/dL Normal 74.0-118.0 [facility] Comment on above: Performed By: #### 1 [id number], [id number], [id number] ####[facility] (DEFAULT)[address] [place] [address] Osmolality 273 mOsm/L Invalid Interpretation Code [facility] Comment on above: Performed By: #### 1 [id number], [id number], [id number] ####[facility] (DEFAULT)[address] [place] [address] 14276 Potassium [Moles/Vol] 4.6 mmol/L Normal 3.6-5.1 [facility] Comment on above: Performed By: #### 1 [id number], [id number], [id number] ####[facility] (DEFAULT)[address] [place] [address] Sodium [Moles/Vol] 137.0 mmol/L Normal 136.0-144.0 [facility] Comment on above: Performed By: #### 1 [id number], [id number], [id number] ####[facility] (DEFAULT)[address] [place] [address] Urea nitrogen [Mass/Vol] 10 mg/dL Normal 8-26 [facility] Comment on above: Performed By: #### 1 [id number], [id number], [id number] ####[facility] (DEFAULT)[address] [place] [address] 80786 Urea nitrogen/Creatinine [Mass ratio] 20.0 mg/mg High 4.6-16.2 [facility] Comment on above: Performed By: #### 1 [id number], [id number], [id number] ####[facility] (DEFAULT)[address] [place] [address] 85861 CBC w/ Auto Diffon 2 Erythrocyte distribution width (RBC) [Ratio] 14.6 % Normal 11.5-15.0 [facility] Comment on above: Performed By: #### 1 [id number], [id number], [id number] ####[facility] (DEFAULT)[address] [place] [address] Hematocrit (Bld) [Volume fraction] 49.5 % High 33.7-40.4 [facility] Comment on above: Performed By: #### 1 [id number], [id number], [id number] ####[facility] (DEFAULT)[address] [place] [address] 91264 Hemoglobin (Bld) [Mass/Vol] 16.8 g/dL High 11.3-15.9 [facility] Comment on above: Performed By: #### 1 [id number], [id number], [id number] ####[facility] (DEFAULT)[address] [place] [address] 40264 Instr WBC 9.9 x10 Invalid Interpretation Code [facility] Comment on above: Performed By: #### 1 [id number], [id number], [id number] ####[facility] (DEFAULT)[address] [place] [address] 30599 Man Diff? Auto Normal [facility] Comment on above: Performed By: #### 1 [id number], [id number], [id number] ####[facility] (DEFAULT)[address] [place] [address] 10502 MCH (RBC) [Entitic mass] 32 pg Normal 24-34 [facility] Comment on above: Performed By: #### 1 [id number], [id number], [id number] ####[facility] (DEFAULT)[address] [place] [address] 10226 MCHC (RBC) [Mass/Vol] 34 g/dL Normal 26-37 [facility] Comment on above: Performed By: #### 1 [id number], [id number], [id number] ####[facility] (DEFAULT)[address] [place] [address] 06682 MCV (RBC) [Entitic vol] 95 fL Normal 81-100 [facility] Comment on above: Performed By: #### 1 [id number], [id number], [id number] ####[facility] (DEFAULT)[address] [place] [address] 29253 Platelet 138 x10 Normal 138-427 [facility] Comment on above: Performed By: #### 1 [id number], 1858717, [id number] ####[facility] (DEFAULT)[address] [place] [address] Platelet mean volume (Bld) [Entitic vol] 11.5 fL High 6.3-10.2 [facility] Comment on above: Performed By: #### 1 [id number], [id number], [id number] ####[facility] (DEFAULT)[address] [place] [address] RBC 5.20 x10 Normal 3.70-5.30 [facility] Comment on above: Performed By: #### 1 [id number], 1986161, [id number] ####[facility] (DEFAULT)[address] [place] [address] WBC 9.9 x10 Normal 3.5-10.5 [facility] Comment on above: Performed By: #### 1 [id number], 8478959, [id number] ####[facility] (DEFAULT)[address] [place] [address] US ARTERY LEG BILon 11-26-19 US ARTERY [...] by: CHARY AWAD Date: 2021-11-25 17:16 Normal [facility] Complete Blood Count with Au to Diffon 07-14-2021 Basophils (Bld) [#/Vol] 0.05 10*3/uL Normal 0.00-0.20 [facility] Comment on above: Performed By: #### F E Prof, TSH, CBCAD, FERR #### [facility] [address], [place] [id number] Basophils/100 WBC (Bld) 0.6 % Normal [facility] Comment on above: Performed By: #### F E Prof, TSH, CBCAD, FERR #### [facility] [address], [place] [id number] Eosinophils (Bld) [#/Vol] 0.04 10*3/uL Normal 0.02-0.50 [facility] Comment on above: Performed By: #### F E Prof, TSH, CBCAD, FERR #### [facility] [address], [place] [id number] Eosinophils/100 WBC (Bld) 0.5 % Normal [facility] Comment on above: Performed By: #### F E Prof, TSH, CBCAD, FERR #### [facility] [address], [place] [id number] Erythrocyte distribution width (RBC) [Ratio] 14.4 % Normal 11.0-15.0 [facility] Comment on above: Performed By: #### F E Prof, TSH, CBCAD, FERR #### [facility] [address], [place] [id number] Hematocrit (Bld) [Volume fraction] 49.0 % High 35.0-47.0 [facility] Comment on above: Performed By: #### F E Prof, TSH, CBCAD, FERR #### [facility] [address], [place] [id number] Hemoglobin (Bld) [Mass/Vol] 16.8 g/dL High 11.6-15.5 [facility] Comment on above: Performed By: #### F E Prof, TSH, CBCAD, FERR #### [facility] [address], [place] [id number] Lymphocytes (Bld) [#/Vol] 2.9 10*3/uL Normal 0.9-3.9 [facility] Comment on above: Performed By: #### F E Prof, TSH, CBCAD, FERR #### [facility] [address], [place] [id number] Lymphocytes/100 WBC (Bld) 35.7 % Normal [facility] Comment on above: Performed By: #### F E Prof, TSH, CBCAD, FERR #### [facility] [address], [place] [id number] MCH (RBC) [Entitic mass] 32.2 pg Normal 27.0-33.0 [facility] Comment on above: Performed By: #### F E Prof, TSH, CBCAD, FERR #### [facility] [address], [place] [id number] MCHC (RBC) [Mass/Vol] 34.3 g/dL Normal 32.0-36.0 [facility] Comment on above: Performed By: #### F E Prof, TSH, CBCAD, FERR #### [facility] [address], [place] [id number] MCV (RBC) [Entitic vol] 94 fL Normal 80-100 [facility] Comment on above: Performed By: #### F E Prof, TSH, CBCAD, FERR #### [facility] [address], [place] [id number] Monocytes (Bld) [#/Vol] 0.5 10*3/uL Normal 0.2-0.9 [facility] Comment on above: Performed By: #### F E Prof, TSH, CBCAD, FERR #### [facility] [address], [place] [id number] Monocytes/100 WBC (Bld) 5.9 % Normal [facility] Comment on above: Performed By: #### F E Prof, TSH, CBCAD, FERR #### [facility] [address], [place] [id number] Neutrophils (Bld) [#/Vol] 4.6 10*3/uL Normal 1.5-7.8 [facility] Comment on above: Performed By: #### F E Prof, TSH, CBCAD, FERR #### [facility] [address], [place] [id number] Neutrophils/100 WBC (Bld) 56.8 % Normal [facility] Comment on above: Performed By: #### F E Prof, TSH, CBCAD, FERR #### [facility] [address], [place] [id number] Platelet mean volume (Bld) [Entitic vol] 12.10 fL Normal 7.50-12.50 [facility] Comment on above: Performed By: #### F E Prof, TSH, CBCAD, FERR #### [facility] [address], [place] [id number] Platelets (Bld) [#/Vol] 166 10*3/uL Normal 140-400 [facility] Comment on above: Performed By: #### F E Prof, TSH, CBCAD, FERR #### [facility] [address], [place] [id number] RBC (Bld) [#/Vol] 5.22 10*6/uL High 3.90-5.20 [facility] Comment on above: Performed By: #### F E Prof, TSH, CBCAD, FERR #### [facility] [address], [place] [id number] RDW-SD 49.0 fL Normal 37.0-50.0 [facility] Comment on above: Performed By: #### F E Prof, TSH, CBCAD, FERR #### [facility] [address], [place] [id number] WBC (Bld) [#/Vol] 8.1 10*3/uL Normal 3.8-11.0 [facility] Comment on above: Performed By: #### F E Prof, TSH, CBCAD, FERR #### [facility] [address], [place] [id number] Ferritinon 07-14-2021 FERR 36.8 ng/mL Normal 15.0-150.0 [facility] Comment on above: Performed By: #### F E Prof, TSH, CBCAD, FERR #### [facility] [address], [place] [id number] Iron Profileon 07-14-2021 %FESAT 21 % Normal 11-50 [facility] Comment on above: Performed By: #### F E Prof, TSH, CBCAD, FERR #### [facility] [address], [place] [id number] FE 67 ug/dL Normal 40-190 [facility] Comment on above: Result Comment: Refe rence range change 02/09/2017. Prior reference range F 37-145 ug/dL, M 59-158 ug/dL. Performed By: #### F E Prof, TSH, CBCAD, FERR #### [facility] [address], [place] [id number] TIBC 316 ug/dL Normal 250-450 [facility] Comment on above: Performed By: #### F E Prof, TSH, CBCAD, FERR #### [facility] [address], [place] [id number] UIBC 249 ug/dL Normal 112-347 [facility] Comment on above: Performed By: #### F E Prof, TSH, CBCAD, FERR #### [facility] [address], [place] [id number] TSHon 07-14-2021 TSH 1.430 uIU/mL Normal 0.400-4.500 [facility] Comment on above: Performed By: #### F E Prof, TSH, CBCAD, FERR #### [facility] [address], [place] [id number] Vitamin B12on 07-14-2021 Cobalamin (Vitamin B12) [Mass/Vol] 216 pg/mL Normal 211-946 [facility] Comment on above: Performed By: #### B 12 #### [facility] [address], [place] [id number] Comprehensive Metabolic Pane gaurav 02-28-2021 Albumin [Mass/Vol] 4.4 g/dL Normal 3.6-5.1 [facility] Comment on above: Performed By: #### L IPD, CMP #### [facility] [address], [place] [id number] Albumin/Globulin [Mass ratio] 1.7 {ratio} Normal 1.0-2.5 [facility] Comment on above: Performed By: #### L IPD, CMP #### [facility] [address], [place] [id number] ALP [Catalytic activity/Vol] 159 U/L High 35-119 [facility] Comment on above: Performed By: #### L IPD, CMP #### [facility] [address], [place] [id number] ALT [Catalytic activity/Vol] 6 U/L Normal 6-33 [facility] Comment on above: Result Comment: 02/23 Female reference range changed. Performed By: #### L IPD, CMP #### [facility] [address], [place] [id number] Anion gap [Moles/Vol] 19 mmol/L Normal 12-20 [facility] Comment on above: Result Comment: Effe ctive 03/31/2019 reference range changed. Performed By: #### L IPD, CMP #### [facility] [address], [place] [id number] AST [Catalytic activity/Vol] 13 U/L Normal 9-34 [facility] Comment on above: Performed By: #### L IPD, CMP #### [facility] [address], [place] [id number] BUN/CREA 21 Ratio Normal 6-22 [facility] Comment on above: Performed By: #### L IPD, CMP #### [facility] [address], [place] [id number] Calcium [Mass/Vol] 9.7 mg/dL Normal 8.6-10.2 [facility] Comment on above: Performed By: #### L IPD, CMP #### [facility] [address], [place] [id number] Chloride [Moles/Vol] 103 mmol/L Normal 98-107 [facility] Comment on above: Performed By: #### L IPD, CMP #### [facility] [address], [place] [id number] CO2 [Moles/Vol] 22 mmol/L Normal 20-31 [facility] Comment on above: Performed By: #### L IPD, CMP #### [facility] [address], [place] [id number] Creatinine [Mass/Vol] 0.6 mg/dL Normal 0.6-1.4 [facility] Comment on above: Performed By: #### L IPD, CMP #### [facility] [address], [place] [id number] eGFRAA 113 mL/min/1.73m2 Normal >60 [facility] Comment on above: Performed By: #### L IPD, CMP #### [facility] [address], [place] [id number] eGFRNAA 93 mL/min/1.73m2 Normal >60 [facility] Comment on above: Performed By: #### L IPD, CMP #### [facility] [address], [place] [id number] Globulin (S) [Mass/Vol] 2.6 g/dL Normal 1.9-3.7 [facility]st Comment on above: Performed By: #### L IPD, CMP #### [facility] [address], [place] [id number] Glucose [Mass/Vol] 102 mg/dL High 65-99 [facility] Analyst Comment on above: Result Comment: For FASTING Glucose --- ADA reference ranges: Normal 65-99 mg/dl Prediabetes 100-125 Diabetes >/= 126 Performed By: #### L IPD, CMP #### [facility] [address], [place] [id number] Potassium [Moles/Vol] 4.2 mmol/L Normal 3.5-5.5 [facility]st Comment on above: Performed By: #### L IPD, CMP #### [facility] [address], [place] [id number] Protein [Mass/Vol] 7.0 g/dL Normal 6.1-8.1 [facility] Analyst Comment on above: Performed By: #### L IPD, CMP #### [facility] [address], [place] [id number] Sodium [Moles/Vol] 140 mmol/L Normal 135-146 [facility] Analyst Comment on above: Performed By: #### L IPD, CMP #### [facility] [address], [place] [id number] TBIL <0.3 Normal [facility] Comment on above: Performed By: #### L IPD, CMP #### [facility] [address], [place] [id number] Urea nitrogen [Mass/Vol] 13 mg/dL Normal 7-25 [facility] Comment on above: Performed By: #### L IPD, CMP #### [facility] [address], [place] [id number] Lipid Panelon 02-28-2021 Cholesterol [Mass/Vol] 166 mg/dL Normal 125-200 [facility] Comment on above: Result Comment: Low risk < 200mg/dL Borderline risk 201-239 mg/dl High risk > or equal to 240 Performed By: #### L IPD, CMP #### [facility] [address], [place] [id number] Cholesterol in HDL [Mass/Vol] 54 mg/dL Normal >40 [facility] Analyst Comment on above: Result Comment: High Cardiovascular Risk HDL <40 mg/dL Low Cardiovascular Risk HDL > or equal to 60 mg/dl Performed By: #### L IPD, CMP #### [facility] [address], [place] [id number] Cholesterol in LDL [Mass/Vol] 87 mg/dL Normal [facility] Comment on above: Result Comment: LDL ATP III CLASSIFICATION LDL less than 100 mg/dl Optimal LDL 100-129 mg/dl Near or above optimal LDL 130-159 Borderline high LDL 160-189 High LDL greater than 189 mg/dl Very High Performed By: #### L IPD, CMP #### [facility] [address], [place] [id number] Cholesterol in VLDL [Mass/Vol] 25 mg/dL Normal [facility] Comment on above: Performed By: #### L IPD, CMP #### [facility] [address], [place] [id number] Cholesterol.total/C holesterol in HDL [Mass ratio] 3 {ratio} Normal [facility] Comment on above: Performed By: #### L IPD, CMP #### [facility] [address], [place] [id number] Triglyceride [Mass/Vol] 126 mg/dL Normal 30-150 [facility] Analyst Comment on above: Result Comment: TRIG ATPIII CLASSIFICATIONS TRIG less than 150 mg/dl Normal TRIG 150-199 mg/dl Borderline High TRIG 200-500 mg/dl High TRIG greather than 500 mg/dl Very High Performed By: #### L IPD, CMP #### [facility] [address], [place] [id number] Vital Signs Date Time Vital Sign Value Performing Clinician Facility 07-21-2023 11:34-0400 Body temperature 99 [degF] Christian Webster MD Work Phone: [facility] 07-21-2023 11:34-0400 Diastolic blood pressure 56 mm[Hg] Christian Webster [facility] 07-21-2023 11:34-0400 Heart rate 68 /min Christian Webster [facility] 07-21-2023 11:34-0400 Respiratory rate 16 /min Christian Webster [facility] 07-21-2023 11:34-0400 SaO2% (BldA) [Mass fraction] 95 % Christian Webster [facility] 07-21-2023 11:34-0400 Systolic blood pressure 115 mm[Hg] Christian Webster [facility] 07-20-2023 09:39-0400 Body height 160 cm Christian Webster MD [facility] 07-20-2023 09:39-0400 Body mass index (BMI) [Ratio] 22.72 kg/m2 Christian Webster MD [facility] 07-20-2023 09:39-0400 Body weight 58.15 kg Christian Webster MD Work Phone: [facility] 07-16-2023 11:22-0400 Body height 160.02 cm JOSHUA Nicolas Work Phone: [facility] 07-16-2023 11:22-0400 Body mass index (BMI) [Ratio] 22.4 kg/m2 II Villa Nicolas Work Phone: [facility] 07-16-2023 11:22-0400 Body temperature 96.7 [degF] II Villa Nicolas Work Phone: [facility] 07-16-2023 11:22-0400 Body weight 57.6 kg JOSHUA Nicolas Work Phone: [facility] 07-16-2023 11:22-0400 Diastolic blood pressure 50 mm[Hg] II Villa Nicolas Work Phone: [facility] 07-16-2023 11:22-0400 Heart rate 63 /min II Villa Nicolas Work Phone: [facility] 07-16-2023 11:22-0400 SaO2% (BldA) [Mass fraction] 97 % II Villa Nicolas Work Phone: [facility] 07-16-2023 11:22-0400 Systolic blood pressure 92 mm[Hg] II Villa Nicolas Work Phone: [facility] 06-25-2023 10:52-0400 Body height 160.02 cm [facility] 06-25-2023 10:52-0400 Body mass index (BMI) [Ratio] 26 kg/m2 [facility] 06-25-2023 10:52-0400 Body temperature 96.6 [degF] [facility] 06-25-2023 10:52-0400 Body weight 66.67 kg [facility] 06-25-2023 10:52-0400 Diastolic blood pressure 60 mm[Hg] [facility] 06-25-2023 10:52-0400 Heart rate 67 /min [facility] 06-25-2023 10:52-0400 SaO2% (BldA) [Mass fraction] 93 % [facility] 06-25-2023 10:52-0400 Systolic blood pressure 128 mm[Hg] [facility] 05-24-2023 13:10-0500 Body height 160 cm Sta 2 [facility] 05-24-2023 13:10-0500 Body mass index (BMI) [Ratio] 22.71 kg/m2 Sta 2 [facility] [employer] 05-24-2023 13:10-0500 Body temperature 97.81 [degF] Sta 2 [facility] [employer] 05-24-2023 13:10-0500 Body weight 58.15 kg Sta 2 [facility] [employer] 05-24-2023 13:10-0500 Diastolic blood pressure 43 mm[Hg] Sta 2 [facility] 05-24-2023 13:10-0500 Heart rate 80 /min Sta 2 [facility] [employer] 05-24-2023 13:10-0500 Respiratory rate 16 /min Sta 2 [facility] 05-24-2023 13:10-0500 SaO2% (BldA) [Mass fraction] 93 % Sta 2 [facility] 05-24-2023 13:10-0500 Systolic blood pressure 98 mm[Hg] Sta 2 [facility] Encounters Encounter Date Encounter Type Care Provider Facility Start: 11-01-2023 End: 11-01-2023 ambulatory SUNSHINE CHOI Not Available Start: 10-08-2023 End: 10-08-2023 ambulatory MATI WHITE Not Available Start: 09-12-2023 End: 09-12-2023 ambulatory VILLA NICOLAS Not Available Start: 09-05-2023 End: 09-05-2023 ambulatory VILLA NICOLAS Not Available Start: 08-29-2023 End: 08-29-2023 ambulatory VILLA NICOLAS Not Available Start: 08-28-2023 End: 08-28[facility]20[facility] Start: 08-16-2023 End: 08-16-2023 ambulatory SUNSHINE CHOI Not Available Start: 08-14-2023 End: 08-14-2023 ambulatory JAMIA FUNEZ Not Available Start: 07-30-2023 Evaluation and manag ement of inpatient [facility] Start: 07-27-2023 Evaluation and manag ement of inpatient [facility] Start: 07-26-2023 Evaluation and manag ement of inpatient [facility] Start: 07-26-2023 End: 07-31-2023 Evaluation and management of inpatient ALE [facility] Start: 07-20-2023 End: 07-21-2023 ambulatory CHRISTIAN [place] [facility] Start: 07-20-2023 End: 07-21-2023 Subsequent hospital visit by physician Christian Webster MD Work Phone: [facility] Start: 07-18-2023 End: 07-18-2023 ambulatory CRYSTAL Sylvain DUNLAP Not Available Start: 07-16-2023 End: 07-16-2023 ambulatory II Villa Nicolas Work Phone: [facility] Work Phone: Start: 07-16-2023 End: 07-16-2023 Patient encounter procedure II Villa Nicolas Work Phone: [facility] Physician [facility] V[facility] Surgery Work Phone: Start: 07-06-2023 End: 07-06-2023 ambulatory Aron Rain Facility:[facility] Start: 07-06-2023 End: 07-06-2023 ambulatory II Villa Nicolas Work Phone: [facility] Work Phone: Start: 07-06-2023 End: 07-06-2023 Patient encounter procedure II Villa Nicolas Work Phone: [facility] [place] Work Phone: Start: 06-27-2023 End: 06-27-2023 ambulatory TIKA ARGUELLES Not Available Start: 06-25-2023 End: 06-25-2023 ambulatory [facility] Work Phone: Start: 06-25-2023 End: 06-25-2023 Patient encounter procedure [facility] Vascular Surgery Work Phone: Start: 06-06-2023 End: 06-06-2023 ambulatory TIKA ARGUELLES Not Available Start: 05-30-2023 End: 05-30-2023 ambulatory ZOË BUAMAN Not Available Start: 05-25-2023 End: 05-25-2023 ambulatory DIONE CUEVAS [facility] Start: 05-24-2023 End: 05-29-2023 ambulatory [facility] Start: 05-24-2023 End: 05-28-2023 Subsequent hospital visit by physician Sta Pat Rm 2 [facility] Start: 05-07-2023 Refill Kae Barone [facility]RE [facility] Comment on above: Intervertebral disc disorder of lumbar region with myelopathy Start: 04-23-2023 End: 04-23-2023 ambulatory VILLA NICOLAS Not Available Start: 04-23-2023 Patient encounter status Kae alfaro DANDRE [facility] Start: 04-19-2023 End: 04-19-2023 ambulatory DIONE [facility] Start: 04-05-2023 End: 04-05-2023 Subsequent hospital visit by physician Sta Pat Rm 1 [facility] PRE-ADMIT TEST[facility] Comment on above: Canceled (Case cance lled) Start: 04-04-2023 Evaluation and manag ement of inpatient AB [facility] Start: 04-04-2023 Evaluation and manag ement of inpatient SELENE [facility] Start: 04-03-2023 End: 04-05-2023 Evaluation and management of inpatient ALE [facility] Start: 03-27-2023 End: 03-27-2023 Subsequent hospital visit by physician Sta Pat Rm 2 [facility] Comment on above: Canceled (Patient) Start: 03-15-2023 End: 03-15-2023 ambulatory VILLA NICOLAS Not Available Start: 02-02-2023 End: 02-06-2023 ambulatory [facility] Start: 10-31-2022 End: 10-31-[address] [facility] Start: 10-31-2022 End: 10-31-2022 Encounter for preprocedural cardiovascular examination [facility] Start: 10-26-2022 End: 10-31-2022 ambulatory VILLA NICOLAS [facility] Start: 06-27-2022 End: 06-28-2022 ambulatory YASMEEN SINGH Facility:[facility] Start: 01-20-2022 End: 01-21-2022 ambulatory MOHAMED CHANTEL Facility:[facility] Start: 01-16-2022 End: 10-25-2022 ambulatory MOHAMED CHANTEL Facility:[facility] Start: 01-09-2022 End: 01-09-2022 ambulatory VILLA NICOLAS Facility:[facility] Start: 01-04-2022 End: 01-05-2022 ambulatory Ambrose Rodriguez Facility:[facility] Start: 12-30-2021 End: 12-31-2021 ambulatory VILLA NICOLAS Facility:[facility] Start: 11-25-2021 End: 11-26-[address] VILLA NICOLAS Facility: Start: 10-02-2016 End: 10-03-2016 Ambulatory DEFAULT PHYSICIAN Facility:[facility] Procedures Date Procedure Procedure Detail Performing [...] A1c measurement A1C test (Diabetic or Prediabetic) [facility] Start: 03-15-2024 Screening for malign ant neoplasm of colon Colorectal Cancer Screening [facility] Comment on above: Postponed from 12/08 (Patient Refused) Start: 03-04-2024 Screening for malign ant neoplasm of breast Mammogram [facility] Healthcare Comment on above: Postponed from 12/08 (Patient Refused) Start: 10-25-2023 Influenza vaccination Flu vacc ine (Season Ended) DONTE MORAES [facility] Start: 09-23-2023 Influenza vaccination Influenza Vacc ine (#1) [facility] Healthcare Comment on above: Postponed from 11/24 (Patient Refused) Start: 08-22-2023 End: 08-22-2023 Patient encounter procedure 08/22/2023 11:30 AM EDT Office Visit [address], [facility] [address] [place] [address] Christian Webster MD [address] [place] [id number] 4 week 1st post op-RE-DO L3-4 LUMBAR LAMINECTOMY [ [facility] Comment on above: 4 week 1st post op-R E-DO L3-4 LUMBAR LAMINECTOMY [ Start: 07-06-2023 Doppler ultrasonogra phy of bilateral carotid arteries US carotid doppler BI [facility] Start: 07-06-2023 Pulse volume recorde r plethysmography [facility] Start: 07-06-2023 US.doppler Carotid arteries - bilateral [facility] Start: 07-04-2023 End: 07-04-2023 Patient encounter procedure 07/04/2023 1:50 PM EDT Office Visit [facility] [address] [place] [address], [address] [place] [address] Christian Webster MD [address] [place] [address] 15 [place] [address] 4 week 1st post op-Redo L3-4 Lami [facility] [place], [facility] Comment on above: 4 week 1st post op-R jenni L3-4 Lami Start: 06-25-2023 End: 06-25-2023 Patient encounter procedure 06/25/2023 2:00 PM EDT Office Visit [facility] [address] [place] [address] Villa Nicolas MD [address] [facility] [address] [place] [address] [facility] Start: 06-14-2023 Hemoglobin A1c measurement Diabetes: Hemoglobin A1C [facility] Start: 06-07-2023 End: 06-07-2023 Admission to same day surgery center 06/07/2023 9:55 AM EDT - 06/07/2023 12:00 [place] [address] [place] [id number] Christian Webster MD [address] [address] RE-DO L3-4 LUMBAR LAMINECTOMY [facility] Comment on above: RE-DO L3-4 LUMBAR LA MINECTOMY Start: 06-07-2023 End: 06-07-2023 Laminectomy w/o ffd > 2 vert seg lumbar LUMBAR LAMINECTOMY POSTERIOR Spinal stenosis of lumbar region, unspecified whether neurogenic claudication present 06/07/2023 9:55 AM EDT [facility] Start: 06-07-2023 Subsequent hospital visit by physician 06/07/2023 9:55 [place] [address] [place] [id number] Christian Webster MD [address] [facility] [address] [place] [address] [facility] [place] Start: 05-30-2023 End: 05-30-2023 Patient encounter procedure 05/30/2023 2:20 PM EST Office Visit [facility] [address] [place] [id number] Zoë Bauman MD [address] [place] [address] [facility] Start: 05-23-2023 End: 05-23-2023 Clinical Support 05/23/2023 11:00 AM EST Clinical Support [facility] [address] [place] [address] [place] [address] Crystal Dunlap, [facility] [address] [facility] [place] [address] [facility] Start: 05-16-2023 End: 05-16-2023 Patient encounter procedure 05/16/2023 10:30 AM EST Office Visit [facility] [address] [place] [address], [address] [place] [address] Christian Webster MD [address] [place] [address] 15 [place] [address] 4 week 1st post op-Redo L3-4 Lami [facility] Comment on above: 4 week 1st post op-R jenni L3-4 Lami Start: 04-20-2023 End: 04-20-2023 Admission to same day surgery center 04/20/2023 10:00 AM EST - 04/20/2023 11:55 AM EST Surgery [facility] [address] [place] [address] Christian Webster MD [address] [place] [address] [address] [place], [place] [id number] REDO L3-4 LUMBAR LAMINECTOMY POSTERIOR [facility] Comment on above: REDO L3-4 LUMBAR KNOTT INECTOMY POSTERIOR Start: 04-20-2023 End: 04-20-2023 Knott facetectomy & foramotomy 1 segment lumbar LUMBAR LAMINECTOMY POSTERIOR Spinal stenosis of lumbar region, unspecified whether neurogenic claudication present 04/20/2023 10:00 AM [facility] Start: 04-20-2023 Subsequent hospital visit by physician 04/20/2023 10:00 AM [facility] Hospital Encounter [facility] [place] [address] [place] [address] Christian Webster MD [address] [address] [facility] [place] Start: 04-05-2023 Subsequent hospital visit by physician 04/05/2023 1:00 PM [facility] Hospital Encounter [facility] PRE-ADMIT TESTING [address] [place] [address] [facility] Start: 02-19-2023 Annual Wellness Visi t (Medicare) Annual Wellness Visit (Medicare) [facility] Start: 01-26-2023 Hemoglobin A1c measurement A1C test (Diabetic or Prediabetic) [facility] Start: 12-09-2022 Screening for malign ant neoplasm of colon FIT-DNA [facility] Start: 11-24-2022 COVID-19 Vaccine ( season) COVID-19 Vaccine ( season) [facility] Start: 10-24-2022 Influenza vaccination Flu vaccine (# 1) [facility] Start: 09-29-2022 Medicare Annual Well ness (AWV) Medicare Annual Wellness (AWV) [facility] Start: 01-14-2020 Shingles vaccine (2 of 2) Conklin gles vaccine (2 of 2) [facility] Start: 06-27-2019 Urine screening for protein Diabetes: Urine Protein Screening [facility] Start: 08-30-2018 Pneumococcal 65+ yea rs Vaccine (3 - PPSV23 or PCV20) Pneumococcal 65+ years Vaccine (3 - PPSV23 or PCV20) [facility] Start: 08-30-2018 Pneumococcal 65+ yea rs Vaccine (3 of 3 - PPSV23 or PCV20) Pneumococcal 65+ years Vaccine (3 of 3 - PPSV23 or PCV20) [facility] Start: 2010 Respiratory Syncytia l Virus (RSV) or age 60 yrs+ (1 - 1-dose 60+ series) Respiratory Syncytial Virus (RSV) or age 60 yrs+ (1 - 1-dose 60+ series) [facility] Start: 2000 Screening for malign ant neoplasm of breast Breast cancer screen [facility] Start: 12-09-1995 Screening for malign ant neoplasm of colon [facility] Start: 1969 DTaP/Tdap/Td vaccine (1 - Tdap) DTaP/Tdap/Td vaccine (1 - Tdap) [facility] Start: 1968 Hepatitis C screening Hepatitis C sc reen [facility] Start: 1962 Depression Screen Depression Screen [facility] Start: 1960 Lipid panel Lipids [facility] Start: 1950 Screening for malign ant neoplasm of colon [facility] End: 07-20-2023 Glucose [Mass/volume] in Serum or Plasma POCT Glucose Point of Care Testing STAT One Time for 1 Occurrences starting 07/20/2023 until 07/20/2023 [facility] Work Phone: Comment on above: One Time for 1 Occur rences starting 07/20/2023 until 07/20/2023 Oxygen therapy [[facility] Data Set] Initiate Oxygen Therapy Protocol Respiratory Care Routine As Needed until discontinued starting 07/20/2023 [facility] Comment on above: As Needed until disc ontinued starting 07/20/2023 Spirometry panel Incentive lalen metry Respiratory Care Routine Every 2hr while awake until discontinued starting 07/20/2023 [facility] Comment on above: Every 2hr while awak e until discontinued starting 07/20/2023 Immunizations Immunization Date Immunization Notes Care Provider Fa cility 02-02-2022 influenza, high dose seasonal, preservative-free Kae Barone MA [facility] are 02-02-2022 influenza virus vacc ine, unspecified formulation Kae Barone MA [facility] 01-27-2022 SARS-CoV-2, Unspecified Kae sheehan MA [facility] 02-23-2021 influenza, high dose seasonal, preservative-free Kae Barone MA [facility] with [facility] are 12-03-2019 Influenza, High-dose Seasonal, Quadrivalent, Preservative Free Kae Barone MA [facility] 11-19-2019 zoster vaccine recombinant Kae lyons MA [facility] 12-20-2017 Influenza, High-dose Seasonal, Quadrivalent, Preservative Free Kae Barone MA [facility] 08-30-2017 pneumococcal conjuga te vaccine, 13 valent Kae Barone MA [facility] 12-24-2014 seasonal influenza, intradermal, preservative free Kae Barone MA [facility] 01-26-2014 influenza, seasonal, injectable Kae Barone MA [facility] 02-28-2013 seasonal influenza, intradermal, preservative free Kae Barone MA [facility] 03-26-2011 pneumococcal polysac charide vaccine, 23 valent Kae Barone MA [facility] Payers Date Payer Category Payer Self-pay [id number] 2017 Medicare MEDICARE MEDICAR E PART B [id number] 2017-Present [address] [address] [place] [address] Medicare [id number] 2017 Medicaid MEDICAID [facility] [id number] 2017-Present [phone] [address] [place] [address] Medicaid [id number] 1959 Medicaid [id number] 1959 Medicare [id number] 1959 Medicare [id number] 1959 Self-pay [id number] 1950 Unknown [id number] 2.16.840.1.832369.3.579.2. 1950 Unknown [id number] 2.16.840.1.383127.3.579.2.718 1950 Unknown [id number] 2.16.840.1.696647.3.579.2.8 1950 Unknown [id number] 2.16.840.1.461249.3.579.2.593 1950 Unknown [id number] 2.16.840.1.385348.3.579.2.593 1950 Unknown [id number] 2.16.840.1.143584.3.579.2.593 1950 Unknown [id number] 2.16.840.1.427850.3.579.2.593 1950 Unknown [id number] 2.16.840.1.888254.3.579.2.593 1950 Unknown [id number] 2.16.840.1.422271.3.579.2.177 1950 Unknown [id number] 2.16.840.1.067375.3.579.2.177 1950 Unknown [id number] 2.16.840.1.356361.3.579.2.177 1950 Unknown [id number] 2.16.840.1.373951.3.579.2.175 1950 Unknown [id number] 2.16.840.1.983444.3.579.2.1259 1950 Unknown [id number] 2.16.840.1.438411.3.579.2.1259 1950 Unknown [id number] 2.16.840.1.671777.3.579.2.1259 1950 Unknown [id number] 2.16.840.1.784294.3.579.2.1259 1950 Unknown [id number] 2.16.840.1.548065.3.579.2.1259 1950 Unknown [id number] 2.16.840.1.351343.3.579.2.1259 1950 Unknown [id number] 2.16.840.1.224228.3.579.2.1259 1950 Unknown [id number] 2.16.840.1.156217.3.579.2.9 1950 Unknown [id number] 1950 Unknown [id number] 1950 Unknown [id number] 1950 Unknown [id number] 1950 Unknown [id number] Unknown Unknown [id number] Social History Date Type Detail Facility Start: 10-26-2022 End: 07-20-2023 Tobacco smoking status KYIS Smokes tobacco daily [facility] History of tobacco use Cigarette Smoker B ON [facility] [employer] Start: 10-26-2022 End: 07-20-2023 Cigarettes smoked current (pack per day) - Reported 0.5 [facility] Start: 10-26-2022 End: 07-20-2023 Tobacco use and exposure Smokeless tobacco non-user [facility] Start: 02-02-2023 End: 07-20-2023 Alcohol intake Ex-drinker (finding) [facility] Start: 02-02-2023 End: 07-20-2023 Tobacco use panel [facility] Start: 10-26-2022 Tobacco Comment Started smoking at age 16, quit at the age of 30 then started smoking again a little over a year ago (written 10/26/2022) [facility] Start: 1950 Sex Assigned At Not on file [facility] Start: 04-23-2023 Alcohol intake Lifetime non-drinker (finding) [facility] Start: 03-29-2023 Alcohol Comment caffeine intake : 2-3 cups per day coffee, soda [facility] Start: 06-25-2023 Tobacco smoking status NHIS Smoker (finding) [facility] Start: 1950 Sex Assigned At Female [facility] Has the electric, ga s, oil, or water company threatened to shut off services in your home in past 12Mo No [facility] (I/We) worried wheth er (my/our) food would run out before (I/we) got money to buy more. Never true [facility] In the past 12 month s, has lack of transportation kept you from medical appointments or from getting medications? No [facility] Clinical Notes 01-09-2022 to 08-28-2023 Tamiko Toledo, RN - 07/21/2023 2:25 PM Tequila Erwin, PT - 07/21/2023 11:12 AM Merary García, OT - 07/21/2023 10:24 AM Barb Charles PA - 07/21/2023 8:16 AM EDTAttachments Note Date & Type Note Facility 08-28-2023 Note Cardiovascular Medic [facility] SUBJECTIVE Chief Complaint Patient presents with [...] reviewed her recent admission course while at [facility]. Questions answered, we reviewed her medications [...] Admission Diagnosis: NSTEMI (non-ST elevated myocardial infarction) ([facility]/HCC) [I21.4] Hospital course: 72-year-old female with past medical history significant for CAD status post CABG in 2000, history of Parkinson disease, history of recent spinal fusion surgery. Patient presented to the hospital due to dizziness and not feeling well, she was initially evaluated at [facility] and was found to be hypoxic. Patient was requiring 3 L of oxygen and her CTA chest was concerning for bilateral pulmonary infiltrates. Workup also showed elevated troponins and a new drop in her ejection fraction to 40%. Patient was sent to [facility] so she can be evaluated by [...] Cigarettes Smokeless to (more content not included)... [facility] 08-28-2023 Note Patient here for fol low up PCI mid RCA with Dr. Novak on 07/30/2023. She is feeling well s/p intervention. Denies chest pain, SOB, palpitations, and lightheadedness/syncope. She had labs 2 weeks ago. Review of Systems Musculoskeletal: Positive for arthritis, back pain, joint pain, muscle weakness, myalgias and neck pain. Neurological: Positive for weakness. All other systems reviewed and are negative. [facility] 07-31-2023 Note UTP Cardiology Inpat ient Progress [...] HYDROcodone-acetaminophen 10-325 mg tablet Commonly known as: Phoenix metFORMIN XR 750 mg 24 hr tablet [...] Medications These medications were sent to [facility] - [place], [place] - [address] [place], [place] [address] [place] [address] [facility] [place] [address], [facility] [address] atorvastatin 40 mg tablet dapagliflozin propanediol 10 [...] 07/26/2023 No results (more content not included)... [facility] 07-31-2023 Note Hospital Medicine Discharge Summary Final [...] feeling well, she was initially evaluated at [facility] and was found to be hypoxic. Patient was requiring 3 L of oxygen and her CTA chest was concerning for bilateral pulmonary infiltrates. Workup also showed elevated troponins and a new drop in her ejection fraction to 40%. Patient was sent to [facility] so she can be evaluated by [...] Disease Continue sinemet Dear Dr. Fidencio MD, [place] is advised to follow up with you [...] HYDROcodone-acetaminophen 10-325 mg tablet Commonly known as: Phoenix metFORMIN XR 750 mg 24 hr tablet [...] Medications These medications were sent to [facility] - [place], [place] - [address] [place] [place] [address] [facility] [place] [address], [facility] [address] atorvastatin 40 mg tablet dapagliflozin propanediol 10 mg lisinopril 5 mg tablet metoprolol tartrate 25 mg tablet nitroglycerin 0.4 mg SL tablet Mirna is allergic to augmentin [amoxicillin-pot clavulanate]. Disposition: [place]-Health Care [facility] () Discharge Condition: Stable Code Status: Full [...] Lab Units 07/26 (more content not included)... [facility] 07-31-2023 Note [address]; residential mortgage underwriter met with Patient in room; Patient in bedside recliner, legs elevated; Patient alert and oriented x4; Patient confirmed has had HHC in the past and prefers to have services with [facility]; residential mortgage underwriter sent referral to [facility], need to confirm if they are able accept. Transportation needing arranged 1105 [facility] can accept for [facility]; [facility] added to AVS Transportation arrangements in process 1157 Discharge Transportation Packet placed with Patient's physical chart Transportation scheduled for 1pm pickup No report to call (dc to home) bedside RN, Lead RN, Sid notified [facility] 07-31-2023 Note Occupational Therapy Occupational Therapy Treatment [...] Eating meals?: None (Independent) Total Score OT [facility]: 21 Assessment/Plan OT Assessment OT Impairments: Decreased ADL status, Decreased endurance, Decreased functional mobility OT Assessment/INHALATION THERAPY AIDES TEACHER Summary: (needs skilled OT due to weakness [...] adaptive techniques to (more content not included)... [facility] 07-31-2023 Note Physical Therapy Physical Therapy Treatment [...] to 1 Ro (more content not included)... [facility] 07-30-2023 Note Hospital Medicine Daily Progress Note - 07/30/2023 4:55 PM; Room: [address] [place] [address] Admission: 07/26/2023 3:28 PM; Length of stay: 4 days THE HOSPITALIST TEAM PREFERS TO USE [employer] FOR COMMUNICATION 7AM-7PM. IF I DO NOT RESPOND WITHIN 15 MINUTES, PLEASE PAGE ME/CALL THROUGH THE POLE [employer]ER. FROM 7PM-7AM, PLEASE PAGE [phone](COVR) Code Status: Full Code Barriers to Discharge: post PCI Expected Discharge Date: in am Discharge Destination: home Overview Patient is seen for evaluation and management of Angina. Mirna Quezada is an 72 y.o. female who came from home with dizziness. Patient carries history of smoking quit last week, CABG in 2000, Parkinson, spinal surgery last Sunday at [facility] and was discharged home. Prior to Sunday patient did not have any problem she denies chest pain, shortness of breath, cough, fever, 1 at or any other related symptoms on Sunday she felt unwell and dizzy, she slid off the bed without hitting her head, her called 911 and she was brought to [facility]. Subjective Seen and evaluated at the bedside, [...] admission:yes Diabetes Mellitus, type 2, controlled, without jail use of insulin, with neuropathy A1c pending [...] Number of Rosa Placed: 14 Assessments 07/26/2023 3:45 PM 07/30/2023 [...] 0-5 Units, subc (more content not included)... [facility] 07-30-2023 Note Patient: Mirna Stearns Procedure Information Date/Time: 07/30/23829 Procedure: Coronary angiography Location: [facility] RECOATER 2 [address] / [facility] (Cath) Providers: Mati Novak MD Clinical information reviewed: [facility] Meds Physical Exam Airway Mallampati: II TM distance: >3 FB Cardiovascular Rhythm: regular Rate: normal (-) murmur, friction rub, carotid bruits, peripheral edema, systolic click, JVD, weak pulses Dental Pulmonary Breath sounds clear to auscultation Abdominal (-) obese Abdomen: soft Bowel sounds: normal Anesthesia Plan ASA 4 (Moderate sedation) Additional Equipment Requests [facility] 07-30-2023 Note Occupational Therapy Occupational Therapy Evaluation Patient Name: Mirna Quezada : 1950 Today's Date: 07/30/2023 Time In: 734 Time Out: 752 Mirna Quezada is an 72 y.o. female who came from home with dizziness. Patient carries history of smoking quit last week, CABG in 2000, Parkinson, spinal surgery last Sunday at [facility] and was discharged home. 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, unilateral, right ear with restricted hearing on the contralateral side Neurogenic claudication Nonrheumatic aortic valve stenosis PAD (peripheral artery disease) (CMS/HCC) Polyneuropathy due to type 2 diabetes mellitus (CMS/HCC) Polyneuropathy Persistent insomnia Parkinson's disease (CMS/HCC) Palpitations Preoperative evaluation to rule out surgical contraindication Primary cardiomyopathy ([facility]/HCC) Seasonal allergic rhinitis Tinnitus Status post coronary artery bypass graft Spinal stenosis of lumbar region Solitary pulmonary nodule Primary osteoarthritis Osteoarthrosis Tobacco user Type 2 diabetes mellitus without complication (CMS/HCC) Undifferentiated inflammatory polyarthritis (CMS/HCC) Elevated troponin Acute hypoxic respiratory failure (CMS/HCC) Multifocal pneumonia NSTEMI (non-ST elevated myocardial infarction) ([facility]/HCC) Past Medical History: Diagnosis Date Coronary artery disease Diabetes mellitus (CMS/HCC) GERD (gastroesophageal reflux disease) Heart valve disease Hyperlipidemia Primary cardiomyopathy ([facility]/HCC) Past Surgical History: Procedure Laterality Date [...] Adaptive Equipment: Walker rolling, Rollator, Wheelchair-power, Wheelchair-manual (fl, [facility]) Home Layout: One level Home Access: Ramped entrance Bathroom Shower/Tub: Tub/shower unit Prior Level of Function Prior Function Level of [place]: Needs assistance with ADLs, Needs assistance with [...] LE Dressing Assi (more content not included)... [facility] 07-29-2023 Note Physical Therapy Physical Therapy Evaluation [...] Level of Function Prior Function Level of [place]: Needs assistance with ADLs, Needs assistance with homemaking Prior Functional Mobility: Household distances, Independent with rolling walker Receives Help From: Friends, Family (friend comes to do laundry and cleaning, and to help pt and spouse with bathing. Pt was to have HH PT following back surgery, however did not start ther (more content not included)... [facility] 07-29-2023 Note Attestation signed by Abilio Shay [...] started on Heparin drip and transferred to [facility] from [place] for further cardiologic workup. Interval History: Patient [...] Wong NP, 5,000 Units at 07/29/23904 HYDROcodone-acetaminophen (Phoenix) 10-325 mg per tablet 1 tablet, 1 [...] (Lopressor) split tab (more content not included)... [facility] 07-29-2023 Note Hospital Medicine Daily Progress Note - 07/29/2023 9:22 AM; Room: [address] [place] [address] Admission: 07/26/2023 3:28 PM; Length of stay: 3 days THE HOSPITALIST TEAM PREFERS TO USE [employer] CHAT FOR COMMUNICATION 7AM-7PM. IF I DO NOT RESPOND WITHIN 15 MINUTES, PLEASE PAGE ME/CALL THROUGH THE [employer]. FROM 7PM-7AM, PLEASE PAGE [phone](COVR) Code Status: Full Code Barriers to Discharge: heart cath on Sunday Expected Discharge Date: 1-2 days Discharge Destination: home Overview Patient is seen for evaluation and management of NSTEMI. Mirna Quezada is an 72 y.o. female who came from home with dizziness. Patient carries history of smoking quit last week, CABG in 2000, Parkinson, spinal surgery last Sunday at [facility] and was discharged home. Prior to Sunday patient did not have any problem she denies chest pain, shortness of breath, cough, fever, 1 at or any other related symptoms on Sunday she felt unwell and dizzy, she slid off the bed without hitting her head, her called 911 and she was brought to [facility]. Subjective Patient was assessed at bedside. She [...] Principal Problem: NSTEMI (non-ST elevated myocardial infarction) ([facility]) Active Problems: Autonomic neuropathy due to type 2 diabetes mellitus ([facility]/HCC) Chronic diastolic heart failure ([facility]) HTN (hypertension) Mixed anxiety depressive disorder Mixed stress and urge urinary incontinence Parkinson's disease ([facility]) Status post coronary artery bypass graft Tobacco user Type 2 diabetes mellitus without complication ([facility]/HCC) Multifocal pneumonia Assessment and Plan NSTEMI, [...] admission:yes Diabetes Mellitus, type 2, controlled, without medical terminologist use of insulin, with neuropathy A1c pending [...] Assessments 07/26/2023 3: (more content not included)... [facility] 07-28-2023 Note Cardiology Progress Note Subjective Subjective: [...] started on heparin drip and transferred to [facility] from [place] for further cardiologic workup. Interval Hx: Patient [...] intravenous, q15 min PRN, FERN Tejeda HYDROcodone-acetaminophen (Phoenix) 10-325 mg per tablet 1 tablet, 1 [...] Value Ventricular Rate 77 Atrial Rate 77 ME Interval 146 QRS DURATION 96 QT Interval 384 QTC CALCULATION(BAZETT) 434 P [place] 66 R-[place] 94 T Wave [place] -6 Impression Normal sinus rhythm with sinus arrhythmia Right axis deviation T wave abnormality, consider inferior ischemia Abnormal ECG When compared with ECG of 26-JUL-2023 21:10, No significant change was found Confirmed by Ferdinand SCHILLING, ZEYNEP Escobar ([id number]) on 07/27/2023 1:00:25 PM Lab Results Component Value Date TROPONINI 0.67 (HH) 07/28/2023 Transthoracic echo (TTE) complete Result Date: 07/27/2023 1 1 [facility] [address] [facility] [address] [phone] (fax) Echocardiogram-[facility] Name: MIRNA QUEZADA Study Date: 07/27/2023 07:56 AM Account # (more content not included)... [facility] 07-28-2023 Note Hospital Medicine Daily Progress Note - 07/28/2023 1:22 PM; Room: [address] [place] [address] Admission: 07/26/2023 3:28 PM; Length of stay: 2 days THE HOSPITALIST TEAM PREFERS TO USE [employer] CHAT FOR COMMUNICATION 7AM-7PM. IF I DO NOT RESPOND WITHIN 15 MINUTES, PLEASE PAGE ME/CALL THROUGH THE [employer]. FROM 7PM-7AM, PLEASE PAGE [phone](COVR) Code Status: Full Code Barriers to Discharge: possible heart cath, PT/OT dc recs Expected Discharge Date: TBD Discharge Destination: home Overview Patient is seen for evaluation and management of NSTEMI. Mirna Quezada is an 72 y.o. female who came from home with dizziness. Patient carries history of smoking quit last week, CABG in 2000, Parkinson, spinal surgery last Sunday at [facility] and was discharged home. Prior to Sunday patient did not have any problem she denies chest pain, shortness of breath, cough, fever, 1 at or any other related symptoms on Sunday she felt unwell and dizzy, she slid off the bed without hitting her head, her called 911 and she was brought to [facility]. Subjective Patient assessed in the bed, she [...] Principal Problem: NSTEMI (non-ST elevated myocardial infarction) ([facility]) Active Problems: Autonomic neuropathy due to type 2 diabetes mellitus ([facility]/HCC) Chronic diastolic heart failure ([facility]) HTN (hypertension) Mixed anxiety depressive disorder Mixed stress and urge urinary incontinence Parkinson's disease ([facility]) Status post coronary artery bypass graft Tobacco user Type 2 diabetes mellitus without complication ([facility]) Multifocal pneumonia Assessment and Plan NSTEMI, suspect [...] admission:yes Diabetes Mellitus, type 2, controlled, without medical terminologist use of insulin, with neuropathy A1c pending [...] Placed: 14 Assessme (more content not included)... [facility] 07-27-2023 Note Attestation signed by Abilio Shay [...] started on heparin drip and transferred to [facility] from [place] for further cardiologic workup. Interval Hx: Patient [...] intravenous, q15 min PRN, FERN Tejeda HYDROcodone-acetaminophen (Phoenix) 10-325 mg per tablet 1 tablet, 1 [...] Value Ventricular Rate 77 Atrial Rate 77 ME Interval 146 QRS DURATION 96 QT Interval 384 QTC CALCULATION(BAZETT) 434 P [place] 66 R-[place]t 94 T Wave [place] -6 Impression Normal sinus rhythm with sinus arrhythmia Right axis deviation T wave abnormality, consider inferior ischemia Abnormal ECG When compared with ECG of (more content not included)... [facility] 07-27-2023 Note Attestation signed by Kishan Cardona [...] Progress Note - 07/27/2023 12:22 PM; Room: [address] [place], [place] [address] Admission: 07/26/2023 3:28 PM; Length of stay: 1 days THE HOSPITALIST TEAM PREFERS TO USE [employer] CHAT FOR COMMUNICATION 7AM-7PM. IF I DO NOT RESPOND WITHIN 15 MINUTES, PLEASE PAGE ME/CALL THROUGH THE [employer]. FROM 7PM-7AM, PLEASE PAGE [phone](COVR) Code Status: Full Code Barriers to Discharge: [...] Principal Problem: NSTEMI (non-ST elevated myocardial infarction) ([facility]) Assessment and Plan NSTEMI - Continue monitoring [...] 1640 WBC AUTO (more content not included)... [facility] 07-26-2023 Note Hospital Medicine History and Physical 07/26/2023 5:49 PM THE HOSPITALIST TEAM PREFERS TO USE [employer] CHAT FOR COMMUNICATION 7AM-7PM. IF I DO NOT RESPOND WITHIN 15 MINUTES, PLEASE PAGE ME/CALL THROUGH THE [employer]. FROM 7PM-7AM, PLEASE PAGE [phone](COVR) Chief Complaint Dizziness History of Present Illness Mirna Quezada is an 72 y.o. female who came from home with dizziness. Patient carries history of smoking quit last week, CABG in 2000, Parkinson, spinal surgery last Sunday at [facility] and was discharged home. Prior to Sunday patient did not have any problem she denies chest pain, shortness of breath, cough, fever, 1 at or any other related symptoms on Sunday she felt unwell and dizzy, she slid off the bed without hitting her head, her called 911 and she was brought to [facility], per the note there patient was hypoxic [...] by cardiology team to be transferred to [facility] for cardiac cath evaluation. At time [...] Date Noted NSTEMI (non-ST elevated myocardial infarction) ([facility]) 07/26/2023 Elevated troponin 04/03/2023 Acute hypoxic respiratory failure ([facility]) 04/03/2023 Multifocal pneumonia 04/03/2023 Cigarette smoker 10/31/2022 HTN (hypertension) 10/31/2022 History of heart attack 10/31/2022 H/O Parkinson's disease 10/31/2022 Nonrheumatic aortic valve stenosis 10/31/2022 Abnormal gait 08/10/2022 Autonomic neuropathy due to type 2 diabetes mellitus ([facility]) 08/10/2022 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 08/10/2022 Carotid stenosis, bilateral 08/10/2022 Carpal tunnel syndrome, left 08/10/2022 Cigarette smoker two packs a day or less 08/10/2022 Coronary artery disease 08/10/2022 Critical ischemia of lower extremity ([facility]) 08/10/2022 Difficulty walking 08/10/2022 Hearing loss of right ear 08/10/2022 Lack of coordination 08/10/2022 Mixed conductive and sensorineural hearing loss, unilateral, right ear with restricted hearing on the contralateral side 08/10/2022 PAD (peripheral artery disease) ([facility]) 08/10/2022 Tinnitus 08/10/2022 Undifferentiated inflammatory polyarthritis ([facility]) 08/10/2022 Diabetic mononeuropathy ([facility]) 12/30/2020 Degeneration of lumbar intervertebral disc 11/18/2020 Mixed stress and urge urinary incontinence 11/12/2020 Diabetes mellitus ([facility]) 05/31/2020 Cervical myelopathy ([facility]) 05/28/2020 General weakness 03/08/2020 Muscle weakness 03/08/2020 Multiple system atrophy ([facility]) 12/10/2019 Ataxia 06/03/2019 Polyneuropathy 06/03/2019 COPD (chronic obstructive pulmonary disease) ([facility]) 03/27/2019 Decreased estrogen level 12/20/2017 Solitary pulmonary nodule 04/03/2016 Fibromyalgia 07/13/2015 Tobacco user 07/13/2015 Polyneuropathy due to type 2 diabetes mellitus ([facility]) 04/13/2015 Chronic diastolic heart failure ([facility]) 03/11/2015 Parkinson's disease ([facility]) 03/11/2015 Status post coronary artery bypass graft 03/11/2015 Seasonal allergic rhinitis 02/11/2015 Mixed anxiety depressive (more content not included)... [facility] 07-21-2023 History of Present illness Narrative Pt discharged to home with belongings via transport. Discharge instructions given. AVS understood. Pt denies having any further questions at this time. Personal items given to patient at discharge Patient/family state they have everything they were admitted with. Personal wheelchair sent home with patient as well. Physical Therapy Facility/Department: [facility] Physical Therapy Initial Assessment Name: Mirna Quezada : 1950 Date of Service: 07/21/2023 Discharge Recommendations: Patient would benefit from continued therapy after discharge Patient Diagnosis(es): There were no encounter diagnoses. Past Medical History: has a past medical history of Abnormal gait, CAD (coronary artery disease), Carpal tunnel syndrome, Cervical myelopathy ([facility]), COVID, Depression, Diabetes ([facility]), Disc degeneration, lumbar, Foot drop, left foot, Hearing loss, History of blood transfusion, History of coronary artery disease, History of OK (myocardial infarction), Hyperlipidemia, Hypertension, Lumbar disc disorder with myelopathy, OK (myocardial infarction) ([facility]), Neuropathy, Parkinson's disease ([facility]), PVD (peripheral vascular disease) ([facility]), Seasonal allergies, Spinal stenosis, Tinnitus, Tremors of [...] Needs assistance (assist with shower transfers) Active Supervisor Metal Furniture Assembly: No Patient's Supervisor Metal Furniture Assembly Info: hearts ambullette Occupation: Retired Type of [...] 3-5 steps with a railing?: A Little AM-[facility] Inpatient Mobility Raw Score : 20 AM-[facility] Inpatient T-Scale Score : 47.67 Mobility [...] minutes Tequila Rajan PT Occupational Therapy Facility/Department: [facility] Occupational Therapy Initial Assessment Name: [...] time of discharge. Please refer to the AM-[facility] score for current functional status. KYLE [...] History of coronary artery disease, History of OK (myocardial infarction), Hyperlipidemia, Hypertension, Lumbar disc disorder with myelopathy, OK (myocardial infarction) ([facility]), Neuropathy, Parkinson's disease ([facility]), PVD (peripheral vascular disease) ([facility]), Seasonal allergies, Spinal stenosis, Tinnitus, Tremors of [...] Needs assistance (assist with shower transfers) Active Supervisor Metal Furniture Assembly: No Patient's Supervisor Metal Furniture Assembly Info: hearts ambullette Occupation: Retired Type of [...] pt to demo Short Term Goal 1: I/OK for bed mob with proper log roll tech Short Term Goal 2: I/OK for ADL transfers and functional mob with AD as needed and Good safety Short Term Goal 3: I/OK for total body ADLs with AE as needed and Good safety Short Term Goal 4: I/OK for toileting routine with BSC/AD as needed [...] Minutes 39 Tx time: 23 min Upon residential mortgage underwriter exit, call light within reach, pt retired to chair. All lines intact and patient positioned comfortably. All patient needs addressed prior to ending therapy session. Chart reviewed prior to treatment and patient is agreeable for therapy. RN reports patient is medically stable for therapy treatment this date. Merary Bocanegra OTR/L 07/21/2023 8:16 AM Mirna Quezada 1950 [id number] SUBJECTIVE: Uneventful PM per nursing, pt doing [...] lighting provided. documented in this encounter [facility] 07-20-2023 Hospital Discharge instructions Tamiko Toledo [...] support you. If you have questions, call [phone] Sunday through Sunday from 7:30AM to 8:30PM to speak to a nurse. If you need to speak to someone outside of these hours, call your physician. Incision Do s and Don ts Do wash hands before and after dressing changes or when you have had any contact with your incision. Use hand figure clerk or antibacterial soap. Do keep your incision [...] be sent through Care Everywhere.Lumbar Laminectomy: Post-op (Macanese)Constipation (Macanese)DVT (Deep Vein Thrombosis): General Info (Macanese)Smoking Cessation: Health Benefits: General Info (Macanese)Diabetes: Type 2 (Macanese)tizanidine (Macanese)Hydrocodone/Acetaminoph en Oral Tablet (HYDROCODONE/ACETAMINOPHEN - ORAL) (Macanese)documented in this encounter [facility] 05-25-2023 Note UTP CARDIOLOGY PROGR ESS [...] sent a referral to vascular surgery in [place] for carotid artery stenosis. Review of Systems Musculoskeletal: Positive for arthritis, back pain, joint pain, muscle weakness, myalgias and neck pain. Neurological: Positive for weakness. All other systems reviewed and are negative. 04/19/23 previous API HPI Patient being seen via telemedicine for follow up [facility] for acute on chronic diastolic heart failure, CAD, AO stenosis, HTN. She feels good s/p hospital stay. She denies chest pain, SOB, palpitations, LE edema, and lightheadedness/syncope. No testing since [facility] discharge. Visit Vitals BP 98/60 (BP [...] mcg by mouth in the morning. HYDROcodone-acetaminophen (Phoenix) 10-325 mg tablet Take 1 tablet by [...] Range & U (more content not included)... [facility] 05-25-2023 Note Patient here for 1 m o follow up chronic diastolic heart failure, CAD, and aortic valve stenosis. Had BMP last month after apt. BP yesterday at pre-surgery testing apt was 98/43. She denies chest pain, SOB, palpitations, and lightheadedness/syncope. Says PCP sent a referral to vascular surgery in [place] for carotid artery stenosis. Review of Systems Musculoskeletal: Positive for arthritis, back pain, joint pain, muscle weakness, myalgias and neck pain. Neurological: Positive for weakness. All other systems reviewed and are negative. [facility] 05-25-2023 Note 1. preoperative card iac risk stratification Patient is unable to do 4 METS without shortness of breath. Recent lexiscan showed fixed defect, no acute or reversible defects. From a cardiology perspective pt may proceed with planned spinal surgery, she is a moderate risk for a moderate to high risk surgery. [facility] 05-25-2023 Note stable [facility] 05-25-2023 Note [facility] II-III- current ly euvolemic without exacerbation Monitor daily weights, I&O, fluid restriction 1.5-2L/day, renal function and electrolytes- [facility] 05-25-2023 Note Lipid abnormalities are stable Continue lipitor 20 mg daily [facility] 05-25-2023 Note Hypertension is well controlled and continue all medications [facility] 05-24-2023 History of Present illness Narrative PAT [...] has known cardiomyopathy, aortic stenosis, CAD s/p OK and CABG x1 in 2000, heart failure, [...] disease) Carpal tunnel syndrome left Cervical myelopathy ([facility]) COVID 01/2020 hospitalized then rehab Depression on Celexa, daughter recently Diabetes ([facility]) checks blood sugar at home,averages 130-140, managed by Dr Nicolas Disc degeneration, lumbar Foot drop, left foot usually uses a walker Hearing loss History of blood transfusion during CABG History of coronary artery disease History of OK (myocardial infarction) 1998 initially treated with Stents then had CABG in 2000 Hyperlipidemia Hypertension managed by Dr Nicolas Lumbar disc disorder with myelopathy OK (myocardial infarction) ([facility]) 04/03/2023 Pt states that they thought I was having a heart attack, but the testing was negative. Neuropathy Seasonal allergies Spinal stenosis Tinnitus Tremors of nervous system patient doesn't know the medical diagnosis but said she was told it's very close to Parkinson's Under care of service provider 02/02/2023 pcp-v[facility] nicolas-ovidio in [place]-last visit dec 2022 Under care of service provider 02/02/2023 [id number] [facility] - due to visit jan 2023 Under care of service provider 02/02/2023 [id number] in [place]-last visit dec 2022 Under care of service provider 02/02/2023 [id number]-last visit oct 2022 Under care of [...] CORONARY ARTERY BYPASS GRAFT 2000 done at [facility] SPINAL FUSION L4-5, S1 Medications Prior [...] tablets 09/04/11 Del Reilly MD nystatin (MYCOSTATIN) [id number] UNIT/GM powder Apply 1 application topically in [...] PM documented in this encounter DONTE MORAES [facility] 04-19-2023 Note stable [facility] 04-19-2023 Note No acute symptoms- w ill monitor with serial echocardiograms [facility] 04-19-2023 Note Coronary artery dise ase is stable No beta navdeep r/t bradycardia Continue GDMT- ASA lipitor And plavix continue risk factor modifications- heart healthy diet, regular exercise as tolerated and continue all medications. [facility] 04-19-2023 Note NY[facility]- II-III current ly appears euvolemic- pt denied any concering symptoms Continue GDMT- Currently euvolemic without exacerbation, no Diuretic therapy needed at this time. She has actually lost weight since DC home. Monitor daily weights, I&O, fluid restriction 1.5-2L/day, renal function and electrolytes [facility] 04-19-2023 Note UTP CARDIOLOGY PROGR ESS NOTE Date of phone call: 04/19/2023 HPI Patient being seen via telemedicine for follow up [facility] for acute on chronic diastolic heart failure, CAD, AO stenosis, HTN. She feels good s/p hospital stay. She denies chest pain, SOB, palpitations, LE edema, and lightheadedness/syncope. No testing since [facility] discharge. Previous HPI: Currently pt arrived [...] was initiated by the patient and conducted [id number] with use of audio-only real time telephone [...] heart failure (CMS/HCC) Coronary artery disease involving [place] coronary artery of [place] heart without angina pectoris Review of Systems [...] mcg by mouth in the morning. HYDROcodone-acetaminophen ([place]) 10-325 mg tablet Take 1 tablet by [...] ventricular systolic fu (more content not included)... [facility] 04-19-2023 Note Patient being seen v ia telemedicine for follow up [facility] for acute on chronic systolic heart failure. She feels good s/p hospital stay. She denies chest pain, SOB, palpitations, LE edema, and lightheadedness/syncope. No testing since [facility] discharge. Review of Systems Musculoskeletal: Positive for arthritis, back pain, joint pain, muscle weakness, myalgias and neck pain. Neurological: Positive for weakness. All other systems reviewed and are negative. [facility] 04-05-2023 Note Patient just had vis itors arrive to see her. Cancelled transport request. Provided a list of local food pantries. [facility] 04-05-2023 Note 04/05/23 1312 Admission Assessment Questions Verify insurance with patient Yes (Medicare/[place] Medicaid) Do you understand medical disease or what brought you into the hospital? Yes ( I was sent here from [facility] because they thought I had a heart [...] Discharge? Yes Does the patient have a shoe parts caser assigned to them through their insurance? Yes Living Arrangement (Current/Prior to Hospitalization) Private residence;Home self care (to start [facility] per new referral from [facility], Lives with , has no adult kids, Has help from Step-Son for fixed wing aircraft flight mechanic & Friend Christiana assists with ADL's) Does the patient have history of HHC or SNF? Yes (went to SNF in [place] about 2 yrs ago, no previous Rehab or HHC use) Assistive Device Walker;Wheelchair;Raised toilet seat (has shower chair, previously used Home O2 about 10-15 yrs ago) Patient's goal for discharge Home with [facility], new referral was sent per [facility] prior to admission Was patient reminded that goal for discharge is 11am? Yes Does the patient have transportation at discharge? No (Uses [facility] or [facility] for transportation; [place] has no availability & too late to request ride through [facility]) Type of Residence/Post Acute Needs Private residence;Home care staff ([facility]) Is PT/OT appropriate? Yes Is PT/OT ordered? Yes Is SW consult appropriate? Yes Is SW consult ordered? Yes Do you understand the benefits of MyChart? No Were you able to send link and activate MyChart? No (patient declined as she does not know how computer works) Screen completed. Medically ready for discharge. Dc Plan: Home, start [facility] per referral that was originally sent per [facility]. Working on transportation issue home to [place]. Possible taxi ride Home pending OTM Fishing Vessel Operator approval. [facility] Bedside RN would need to assist patient into taxi & patient's would need to be informed of approximate arrival time Home so that he can go outside to taxi w/ Walker or WC to assist patient into the Home. [facility] 04-05-2023 Note 2:57pm Sent the AVS to [facility]. 2:34pm Called [facility] per her request. They close at 4pm. Patient does not have any one that can come and get her. 2:21pm Met with the patient. She lives with her and plans on returning. She stated she will need help returning home and that she uses [facility]. Spoke with [facility]. They close at 4pm and are fully booked. She is active with [facility]. Will send updates. 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 [facility] 04-05-2023 Note Hospital Medicine Discharge Summary Final Discharge Diagnosis: Acute on chronic diastolic CHF (congestive heart failure) (CMS/[facility]) - resolved NSTEMI II in setting of HF exacerbation and acute hypoxemia 2/2 multilobular pneumonia - resolved Admission Diagnosis: Acute on chronic systolic CHF (congestive heart failure) (CMS/[facility]) [I50.23] Hospital course: Mirna Quezada is an 72 y.o. female who came from home with pastMedical history of Parkinson's disease, hypertension, DM2, hyperlipidemia, CAD s/p CABG, COPD presents to the [facility] as a direct admission from [facility] with elevated troponin and acute on chronic [...] on room air -Upon initial arrival to [facility] on 03/29/2023, patient was requiring 2 L [...] home on 04/05/23. Dear Dr. Fidencio MD, [place] is advised to follow up with you within 1-2 weeks. Follow-up with: Cardiology and CHF clinic Scheduled appointments: Future Appointments Date Time Provider Department Center 04/19/2023 2:00 PM Presley Wong NP [facility] Your medication list CONTINUE taking these [...] HYDROcodone-acetaminophen 10-325 mg tablet Commonly known as: Phoenix isosorbide mononitrate ER 30 mg 24 hr tablet Commonly known as: Imdur metFORMIN 500 mg tablet Commonly known as: Glucophage pregabalin 200 mg capsule Commonly known as: Lyrica primidone 50 mg tablet Commonly known as: Mysoline rOPINIRole 0.25 mg tablet Commonly known as: Requip tiZANidine 4 mg tablet Commonly known as: Zanaflex Mirna is allergic to augmentin [amoxicillin-pot clavulanate]. Disposition: Home-Health Care [facility] Discharge Condition: Stable Code Status: Prior Diagnostic [...] was 40 minutes. Signed Deena Stephenson NP [facility] Medicine 04/09/2023 10:49 AM [facility] 04-05-2023 Note UTP CARDIOLOGY INPAT IENT PROGRESS [...] diet with no excessive oral fluids, and ROUTE CLERK using no diuretic. Says in past no [...] Value Ventricular Rate 57 Atrial Rate 57 ME Interval 162 QRS DURATION 96 QT Interval 446 QTC CALCULATION(BAZETT) 434 P [place] 57 R-[place] 79 T Wave [place] 11 Impression Sinus bradycardia Otherwise normal ECG [...] valve stenosis. A (more content not included)... [facility] 04-05-2023 Note Occupational Therapy Occupational Therapy Evaluation Patient Name: Mirna Quezada : 1950 Today's Date: 04/05/2023 Time In: 929 Time Out: 948 Mirna Quezada is an 72 y.o. female who came from home with pastMedical history of Parkinson's disease, hypertension, DM2, hyperlipidemia, CAD s/p CABG, COPD presents to the [facility] as a direct admission from [facility] with elevated troponin and acute on chronic [...] Level of Function Prior Function Level of [place]: Needs assistance with ADLs, Needs assistance with homemaking (has MATHEMATICS IMPROVEMENT TEACHER 4x/w for bath, assist with dressing at times) Prior Functional Mobility: Independent with rolling walker Receives Help From: dog day care attendant (4x/w for bath) ADL Assistance: ( [...] Basic Assessment Current (more content not included)... [facility] 04-04-2023 Note Pt admitted to [facility] for acute on chronic diastolic HF; hx of Parkinson's disease, hypertension, DM2, hyperlipidemia, CAD s/p CABG, COPD. Pt has echo scheduled; previous echo from 11/03/22 estimated LVEF 50%. I will wait for current echo results to determine pt's eligibility to participate in cardiac rehab (CR) therapy with HF diagnosis and follow up with pt , if appropriate. BEENA Cowart aquatic biologist Outpatient Coordinator Cardiopulmonary Rehab [facility] 04-04-2023 Note Hospital Medicine Daily Progress Note - 04/04/2023 9:15 AM; Room: 5151/5151-01 Admission: 04/03/2023 8:14 PM; Length of stay: 1 days THE HOSPITALIST TEAM PREFERS TO USE Mail'Inside CHAT FOR COMMUNICATION 7AM-7PM. IF I DO NOT RESPOND WITHIN 15 MINUTES, PLEASE PAGE ME/CALL THROUGH THE POLE PEELER. FROM 7PM-7AM, PLEASE PAGE [phone](COVR) Code Status: DNR CC-A Barriers to Discharge: [...] on chronic diastolic CHF (congestive heart failure) ([facility]) Active Problems: COPD (chronic obstructive pulmonary disease) ([facility]) Coronary artery disease HTN (hypertension) H/O Parkinson's disease HLD (hyperlipidemia) Status post coronary artery bypass graft Type 2 diabetes mellitus without complication ([facility]) Elevated troponin Acute hypoxic respiratory failure ([facility]) Multifocal pneumonia Assessment and Plan Mirna Quezada is an 72 y.o. female who came from home with pastMedical history of Parkinson's disease, hypertension, DM2, hyperlipidemia, CAD s/p CABG, COPD presents to the [facility] as a direct admission from [facility] with elevated troponin and acute on chronic [...] on room air -Upon initial arrival to [place] on 03/29/2023, patient was requiring 2 L [...] 1 half table (more content not included)... [facility] 04-03-2023 Note Hospital Medicine History and Physical 04/03/2023 10:32 PM THE HOSPITALIST TEAM PREFERS TO USE Mail'Inside CHAT FOR COMMUNICATION 7AM-7PM. IF I DO NOT RESPOND WITHIN 15 MINUTES, PLEASE PAGE ME/CALL THROUGH THE POLE PEELER. FROM 7PM-7AM, PLEASE PAGE [phone](COVR) Chief Complaint Direct admission from [facility] for elevated troponin and acute on chromic CHF History of Present Illness Mirna Quezada is an 72 y.o. female who came from home with pastMedical history of Parkinson's disease, hypertension, DM2, hyperlipidemia, CAD s/p CABG, COPD presents to the [facility] as a direct admission from [facility] with elevated troponin and acute on chronic CHF exacerbation. Patient originally went to [facility] on 03/29/2023 with a sore throat and [...] on chronic diastolic CHF (congestive heart failure) ([facility]) 04/03/2023 Elevated troponin 04/03/2023 Acute hypoxic respiratory failure ([facility]) 04/03/2023 Multifocal pneumonia 04/03/2023 Cigarette smoker 10/31/2022 [...] (peripheral artery dis (more content not included)... [facility] 10-31-2022 Note [facility]. She was last seen in September of [address] Jhaveri. She presents today for surgery clearance prior to lumbar laminectomy scheduled next week, 11/09 at [facility]. ECG and labs were done last week as part of preadmission testing. She denies chest pain, SOB, lightheadedness, and palpitations. Smoking less than half PPD she states. Review of Systems Respiratory: Positive for wheezing. Musculoskeletal: Positive for arthritis, back pain, joint pain, muscle weakness, myalgias and neck pain. Neurological: Positive for weakness. All other systems reviewed and are negative. [facility] 10-31-2022 Note Cardiovascular Medic ine [facility] SUBJECTIVE No chief complaint on file. [...] in the morning., Disp: , Rfl: HYDROcodone-acetaminophen (Phoenix) 10-325 mg tablet, Take 1 tablet by mouth every 8 (eight) hours., Disp: , Rfl: isosorbide mononitrate ER (Imdur) 30 mg 24 hr tablet, Take 1 tablet by mouth in the morning., Disp: , Rfl: metFORMIN XR (Glucophage-XR) 750 (more content not included)... [facility] 01-11-2022 Note [id number] [facility] 01-09-2022 Note [facility] SURGERY Clinical Discharge Summary PERSON INFORMATION Name MIRNA QUEZADA Age 71 Years 1950 Sex FEMALE Language Macanese PCP VILLA NICOLAS Marital Status Med Service Ambulatory Surgery Acct# Arrival 01/09/2022 12:18:00 Visit Reason SURGERY - LEFT CARPAL TUNNEL RELEASE Acuity NADINE 019 06:34 Address: [address] [place] [address] [address] [place] [phone] Comment: PROVIDER INFORMATION VITALS INFORMATION Vital Sign [...] Follow Below Instruc (more content not included)... 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 Summary Purpose Family History No Family [...] OVER PVRS AND CAROTID U/S DONE AT [place] Reason for Visit Carotid stenosis Claudication Additional Source Comments INFORMATION SOURCE (unrecogn ized section and content) DATE CREATED AUTHOR 09/19/2017 [facility] DATE CREATED AUTHOR AUTHOR'S ORGANIZ ATION 07/16/2021 [facility] Specialist DATE CREATED AUTHOR AUTHOR'S ORGANIZ ATION 01/19/2022 [facility] DATE CREATED AUTHOR AUTHOR'S ORGANIZ ATION 07/03/2022 [facility] DATE CREATED AUTHOR AUTHOR'S ORGANIZ ATION 07/10/2023 [facility] DATE CREATED AUTHOR AUTHOR'S ORGANIZ ATION 07/22/2023 [facility] DATE CREATED AUTHOR AUTHOR'S ORGANIZ ATION 09/17/2023 [facility] DATE CREATED AUTHOR AUTHOR'S ORGANIZ ATION 10/11/2023 [facility] DATE CREATED AUTHOR AUTHOR'S ORGANIZ ATION 11/04/2023 [facility] dical Specialists EPIC Care Teams (unrecognized sec tion and content) Pump Rebuilder Relationship Specialty Start Date End Date Villa Nicolas MD [address] [facility] [address] [place] [address] PCP - General Internal Medicine 09/27/22 Pump Rebuilder Relationship Specialty Start Date End Date Villa Nicolas MD [address] [facility] [address] [place] [address] PCP - General Internal Medicine 09/27/22 Pump Rebuilder Relationship Specialty Start Date End Date Villa Nicolas MD [address] [facility] [address] [place] [address] PCP - General Internal Medicine 08/15/22 Villa Nicolas MD [address] [facility] [address] [place] [address] PCP - ACO Reach 09/04/22 Montse Celestin, RN Registered Nurse Family Medicine 04/06/23 Pump Rebuilder Relationship Specialty Start Date End Date Villa Nicolas MD [address] [facility] [address] [place] [address] PCP - General Internal Medicine 09/27/22 Team [...] July 16, 2023 End: July 16, 2023 Pump Rebuilder Relationship Specialty Start Date End Date Villa Nicolas MD [address] [facility] [address] [place] [address] PCP - General Internal Medicine 09/27/22 Reason for Visit (unrecogniz ed section and content) Reason Onset Date Comments Med Refill 05/07/2023 Specialty Diagnoses / Procedures Referred By Contac t Referred To Contact Diagnoses Spinal stenosis of lumbar region, unspecified whether neurogenic claudication present Spinal stenosis of lumbar region, unspecified whether neurogenic claudication present [M48.061] Procedures ME LAMINECTOMY W/O FFD > 2 VERT SEG LUMBAR RE-DO L3-4 LUMBAR LAMINECTOMY Christian Webster MD [address] [facility] [address] [place] [address] [facility] [address] [place] [address] Referral ID Status Reason Start Date Expiration Date Visits Re quested Visits Authorized [id number] 1 1 Goals (unrecognized section and content) [...] Harris RN)[phone] (NoRateChange - Provider: Felicia Herbert, OPERATIONS OFFICER [employer] DEPARTMENT - CIVIL SERVICE WORKER) 1210 (Stopped - Provider: Tamiko Toledo RN [...] - Provider: Milagros Mccray RN) lidocaine-EPINEPHrine 1 %-1:[id number] injection (CANCELED) PRN, Starting on Sun07/20/23 at [...] BE BASED ON THE PRIMARY CLINICAL RECORDS. [facility] [employer] [facility]. provides no warranty or guarantee of the accuracy or completeness of information in this document.
--- NOTE | 2023-11-30 20:53 | CT_ITS ---
The [address] [address] Patient Name: JAXSON QUEZADA MRN: [id number] date: 1950 Sex: F Assigned Patient Location: ER Current Patient Location: ER Accession/Order Number: [id number] Exam Date: 11/30/2023 21:38 Report Date: 11/30/2023 22:42 At the request of: HANS PALMER Procedure: CT head/brain wo con CT OF THE BRAIN WITHOUT CONTRAST: 11/30/2023 9:38 PM EDT HISTORY: Fall with head injury. TECHNIQUE: Contiguous axially collimated images were obtained through the intracranial compartment, from the vertex through the foramen magnum. Coronal and Sagittal reformatted images were prepared on a separate workstation and reviewed on the PACS for anatomic correlation. No contrast was administered. This CT exam was performed using one or more of the following dose reduction techniques: Automated exposure control, adjustment of the mA and/or kV according to patient size, or use of iterative reconstruction technique. Thin section coronal and sagittal images were reconstructed from the axial data set. All images were reviewed and interpreted. COMPARISON: CT brain without 02/17/2020. FINDINGS: Overall slight motion artifact on sequences does limit overall final detailed assessment. There is no intracranial hemorrhage or abnormal extra-axial fluid collection. To the extent of evaluated with noncontrast technique, there is no mass lesion appreciated. There is no mass-effect or shift of midline structures. There is global brain volume loss with prominence of the ventricles and CSF spaces. There is no evidence of hydrocephalus. There is no effacement of the basal cisterns. No evidence of acute ischemia. Patchy white matter low attenuation is nonspecific, but likely related to chronic small vessel ischemic change. There is no evidence of a lacunar infarct. The posterior fossa, brain stem, and fourth ventricle are normal. There is no tonsillar ectopy. The calvarium is intact, without destructive lesion or depressed fracture. Intracranial atherosclerotic calcific plaque of distal vertebral arteries and ICA vessels. The mastoid air cells are well-aerated. The paranasal sinuses are normally aerated. CT/CT head/brain wo con IMPRESSION: 1. Changes of chronic small vessel ischemia in the periventricular white matter with secondary bilateral cerebral cortical atrophy. 2. No acute intracranial pathology. Intracranial atherosclerotic calcific plaque. Electronically authenticated by: ARMIN GALLO Date: 11/30/2023 22:42
--- NOTE | 2023-11-30 20:53 | CT_ITS ---
The [address] [address] Patient Name: JAXSON QUEZDAA MRN: [id number] date: 1950 Sex: F Assigned Patient Location: ER Current Patient Location: ER Accession/Order Number: [id number] Exam Date: 11/30/2023 21:38 Report Date: 11/30/2023 22:47 At the request of: HANS PALMER Procedure: CT cervical spine wo con CT CERVICAL SPINE WITHOUT : 11/30/2023 9:38 PM EDT HISTORY: Trauma. Neck pain. TECHNIQUE: Thin section axial CT images were obtained from the foramen magnum to the T1 vertebral body. Thin section sagittal and coronal reconstructed images were performed from the axial data set. Dose reduction techniques were achieved by using automated exposure control and/or adjustment of mA and/or kV according to patient size and/or use of iterative reconstruction technique. CONTRAST: None. COMPARISON: None. FINDINGS: The patient is status post posterior spinal fixation from C3 throughpppp T1 with bilateral pedicle screws at C3, C4, C5, C6 and on the left at T1 and on the right at C7. Bilateral intertransverse bone graft with mostly incorporated bone graft with narrowing and partial fusion of the facet joints. Upper facet joints are fused. Lower facet joints are narrowed without solid fusion. There is fixed grade 1 anterolisthesis of C4 on C5 estimated at approximately 3 mm. Slight convex right curvature. Otherwise satisfactory alignment of vertebrae. Normal height of vertebrae. There is no fracture or vertebral body height loss. There is no destructive osseous lesion. Cervical discs are maintained. Cervical facet arthrosis noted throughout. Osseous mineralization is within normal limits. The paraspinal soft tissues are unremarkable. There is no prevertebral soft tissue swelling. CT/CT cervical spine wo con IMPRESSION: 1. No fracture or malalignment. 2. Posterior cervical fusion as discussed. 3. Fixed 3 mm anterolisthesis of C4 on C5 and chronic convex right curvature. Electronically authenticated by: ARMIN GALLO Date: 11/30/2023 22:47
--- NOTE | 2023-11-30 20:53 | XR_ITS ---
The [address] [address] Patient Name: JAXSON QUEZADA MRN: [id number] date: 1950 Sex: F Assigned Patient Location: ER Current Patient Location: ER Accession/Order Number: [id number] Exam Date: 11/30/2023 21:38 Report Date: 11/30/2023 22:49 At the request of: HANS PALMER Procedure: XR tibia fibula PAZ 2V EXAM: XR tibia fibula PAZ 2V HISTORY: fall COMPARISON: None. TECHNIQUE: Frontal and lateral views of right tibia and fibula. Single frontal view with 4 lateral views obtained and reviewed. FINDINGS: No acute fracture, subluxation or dislocation from knee to ankle. No obvious joint effusion or narrowing of joints. Well-preserved joints. Mild osseous demineralization. No lytic or blastic bone lesion. Scattered surgical clips are seen along the posterior medial aspect of the mid tibia. XR/XR tibia fibula PAZ 2V IMPRESSION: 1. No acute bone or joint findings. Electronically authenticated by: ARMIN GALLO Date: 11/30/2023 22:49
--- NOTE | 2023-11-30 21:01 | ED_ITS ---
HPI HPI - Fall General Chief Complaint: Fall Stated Complaint: HEAD AND NECK Time Seen by Provider: 11/30/23 20:50 Source: patient Mode of arrival: ambulance Limitations: no limitations History of Present Illness HPI Narrative: fall. history of Parkinson's disease. Struck her face and her legs. minor cut of her nose and contusion of her forehead. No LOC. No complaint of dizziness, neck pain or extremity weakness,. Has minor contusion bilat shins Related Data Home Medications ?Medication ?Instructions ?Recorded ?Confirmed atorvastatin 40 mg tablet 40 mg PO BEDTIME 03/29/23 11/30/23 carbidopa 25 mg-levodopa 100 mg 1 tab PO QID 03/29/23 11/30/23 tablet citalopram 40 mg tablet 40 mg PO QAM 03/29/23 11/30/23 clopidogrel 75 mg tablet 75 mg PO DAILY 03/29/23 11/30/23 hydrocodone 10 mg-acetaminophen 1 tab PO Q8H PRN pain 03/29/23 11/30/23 325 mg tablet isosorbide mononitrate 30 mg 30 mg PO DAILY 03/29/23 07/24/23 tablet,extended release 24 hr metformin 750 mg tablet,extended 750 mg PO QDAY 03/29/23 11/30/23 release 24 hr oxybutynin chloride 10 mg 10 mg PO .QD 03/29/23 11/30/23 tablet,extended release 24 hr primidone 50 mg tablet 50 mg PO QID 03/29/23 11/30/23 tizanidine 4 mg tablet 4 mg PO TID PRN muscle spasticity 03/29/23 11/30/23 pregabalin 150 mg capsule 150 mg PO Q8H 07/24/23 11/30/23 aspirin 81 mg tablet,delayed 81 mg PO DAILY 11/30/23 11/30/23 release Allergies Allergy/AdvReac Type Severity Reaction Status Date / Time No Known Drug Allergies Allergy Verified 11/30/23 20:39 Opioid HPI Opioid Management Most Recent Pain and Opioid Data: 2 Last Pain Scale 10 11/30/23 22:06 Last ORT Total Score 0 07/24/23 13:13 Last ORT Risk Category Low Risk 07/24/23 13:13 Review of Systems 2 ROS0 Status of ROS 10 or more systems reviewed and unremark able except as noted in history and below [facility] Medical History (Updated 11/30/23 @ 23:15 by Stan Ying MD) HCAP (healthcare-associated pneumonia) ?J18.9 - Pneumonia, unspecified organism (ICD-10) Pneumonia ?J18.9 - Pneumonia, unspecified organism (ICD-10) Elevated troponin ?R79.89 - Other specified abnormal findings of blood chemistry (ICD-10) Acute hypoxemic respiratory failure ?J96.01 - Acute respiratory failure with hypoxia (ICD-10) Acute hypotension ?I95.9 - Hypotension, unspecified (ICD-10) Type 2 diabetes mellitus with hyperglycemia ?E11.65 - Type 2 diabetes mellitus with hyperglycemia (ICD-10) Acute hypoxic respiratory failure ?J96.01 - Acute respiratory failure with hypoxia (ICD-10) CAD (coronary artery disease) ?I25.10 - Atherosclerotic heart disease of [place] coronary artery without angina pectoris (ICD-10) Multifocal pneumonia ?J18.9 - Pneumonia, unspecified organism (ICD-10) HTN (hypertension) ?I10 - Essential (primary) hypertension (ICD-10) Parkinson disease ?G20.A1 - Parkinson's disease without dyskinesia, without mention of fluctuations (ICD-10) Acute respiratory failure ?J96.00 - Acute respiratory failure, unspecified whether with hypoxia or hypercapnia (ICD-10) Dehydration ?E86.0 - Dehydration (ICD-10) Myocardial infarction ?I21.9 - Acute myocardial infarction, unspecified (ICD-10) Tobacco dependence ?F17.200 - Nicotine dependence, unspecified, uncomplicated (ICD-10) OAB (overactive bladder) ?N32.81 - Overactive bladder (ICD-10) Hyperlipidemia ?E78.5 - Hyperlipidemia, unspecified (ICD-10) DM2 (diabetes mellitus, type 2) ?E11.9 - Type 2 diabetes mellitus without complications (ICD-10) Surgical History (Updated 03/29/23 @ 15:26 by Luna Ying) History of cholecystectomy ?Z90.49 - Acquired absence of other specified parts of digestive tract (ICD- 10) Previous back surgery ?Z98.890 - Other specified postprocedural states (ICD-10) S/P triple vessel bypass ?Z95.1 - Presence of aortocoronary bypass graft (ICD-10) Family History (Updated 03/29/23 @ 11:57 by Luna Ying) Father Family history of CHF (congestive heart failure) Family history of cancer Mother Family history of CHF (congestive heart failure) Brother Family history of CHF (congestive heart failure) Social History (Updated 03/29/23 @ 11:54 by Luna Ying) Within the past year, how often did you have a drink containing alcohol: never Score interpretation: A score less than 3 is consistent with normal alcohol consumption. 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 Highest level of school completed/degree received: high school graduate Are you now , , , , never or living with a partner: In a typical week, how many times do you talk on the telephone with family, friends, or neighbors: 3 or more times per week How often do you get together with friends or relatives: 3 or more times per week How often do you attend lutheran or restoration services: never Do you belong to any clubs or organizations such as lutheran groups unions, [employer] or athletic groups, or school groups: no Total score: 2 Score interpretation: A score of greater than or equal to 2 indicates the lowest level of social isolation. Little interest or pleasure in doing things: not at all Feeling down, depressed, or hopeless: not at all Feel stressed/tense/nervous/anxious/difficulty sleeping: only a little Do you think of yourself as: straight/heterosexual Gender Identity: female Exam Constitutional Vital Signs, click to edit/add: Last Vital Signs Temp 98.6 F 11/30/23 20:32 Pulse 87 12/01/23 00:19 Resp 20 12/01/23 00:19 BP 148/58 H 12/01/23 00:19 Pulse Ox 94 L 12/01/23 00:19 O2 Del Method Room Air 12/01/23 00:19 Common normals: oriented x3 Other: parkinsonian tremor of her face, mouth and hands HENMT Face and sinus images: 2 1. raised contusion 2. minor lac across nose. No swelling or deformity Eye Common normals: EOMs intact bilaterally Chest Common normals: inspection of chest normal and palpation of chest normal Respiratory Common normals: normal respiratory effort, no retractions, no use of accessory muscles and clear to auscultation bilaterally Cardio Common normals: regular rate, regular rhythm, S1 normal heart sound and S2 normal heart sound GI Common normals: Normal to inspection, nondistended, normoactive bowel sounds present, soft to palpation and non-tender Extremity Other: minor contusion proximal pillai bilat contusion right hand at 5th MCP Neuro Common normals: oriented x3 and moves all extremities Psych Appearance: grossly normal Course Vital Signs Vital signs: Vital Signs Temperature 98.6 F 11/30/23 20:32 Pulse Rate 68 11/30/23 20:32 Respiratory Rate 20 11/30/23 20:32 Blood Pressure 148/60 H 11/30/23 20:32 Pulse Oximetry 95 11/30/23 20:32 Oxygen Delivery Method Room Air 11/30/23 20:32 Temperature 98.6 F 11/30/23 20:32 Pulse Rate 87 12/01/23 00:19 Respiratory Rate 20 12/01/23 00:19 Blood Pressure 148/58 H 12/01/23 00:19 Pulse Oximetry 94 L 12/01/23 00:19 Oxygen Delivery Method Room Air 12/01/23 00:19 MDM - Fall MDM Narrative Medical decision making narrative: patient has Parkinson's disease and fell striking her face sustaining a minor lac across her nose and a contusion of her forehead. also injury of her right hand. xray with possible fracture right hand. CT brain and neck as well as xrays of both tibia are neg. Splint place right hand. lac on nose and minor and no stitches required. patient discharged home to follow up with her doctor and orthopedics Lab Data Labs: Lab Results 11/30/23 Range/Units 21:10 WBC 8.3 (4.0-11.0) 10^3/uL RBC 4.50 (4.20-5.40) 10^6/uL Hgb 14.3 (12.0-16.0) g/dL Hct 42.0 (36.0-48.0) % MCV 93.3 (81.0-99.0) fL MCH 31.8 (26.7-34.0) pg MCHC 34.0 (29.9-35.2) g/dL RDW 14.6 (11.0-15.0) % Plt Count 174 (150-450) 10^3/uL MPV 12.0 (9.5-13.5) fL Neut % (Auto) 62.3 (43.0-75.0) % Lymph % (Auto) 28.3 (20.5-60.0) % [place] % (Auto) 7.9 (1.7-12.0) % Eos % (Auto) 0.7 L (0.9-7.0) % Baso % (Auto) 0.4 (0.2-2.0) % Neut # (Auto) 5.2 (1.4-6.5) 10^3/uL Lymph # (Auto) 2.3 (1.2-3.8) 10^3/uL [place] # (Auto) 0.7 (0.3-0.8) 10^3/uL Eos # (Auto) 0.1 (0.0-0.7) 10^3/uL Baso # (Auto) 0.0 (0.0-0.1) 10^3/uL Abs Immat Gran (auto) 0.03 (0.00-0.03) 10^3/uL Imm/Tot Granulo (auto) 0.4 (0.0-0.5) % Sodium 142 (136-145) mmol/L Potassium 3.8 (3.5-5.1) mmol/L Chloride 106 (98-107) mmol/L Carbon Dioxide 26.9 (21.0-32.0) mmol/L Anion Gap 12.9 BUN 22.0 H (7.0-18.0) mg/dL Creatinine 0.66 (0.55-1.02) mg/dL Est GFR ( Amer) >60 (>=60) Est GFR (Non-Af Amer) >60 (>=60) BUN/Creatinine Ratio 33.3 Glucose 110 H (74-106) mg/dL Calcium 8.9 (8.5-10.1) mg/dL Imaging Data Chest x-ray: Radiologist's impression: ITS Impressions Cervical Spine CT 11/30/23 20:53 IMPRESSION: 1. No fracture or malalignment. 2. Posterior cervical fusion as discussed. 3. Fixed 3 mm anterolisthesis of C4 on C5 and chronic convex right curvature. Electronically authenticated by: ARMIN GALLO Date: 11/30/2023 22:[address] 11/30/23 20:53 IMPRESSION: 1. Changes of chronic small vessel ischemia in the periventricular white matter with secondary bilateral cerebral cortical atrophy. 2. No acute intracranial pathology. Intracranial atherosclerotic calcific plaque. Electronically authenticated by: ARMIN GALLO Date: 11/30/2023 22:42 Tibia/Fibula X-Ray 11/30/23 20:53 IMPRESSION: 1. No acute bone or joint findings. Electronically authenticated by: ARMIN GALLO Date: 11/30/2023 22:49 Hand X-Ray 11/30/23 21:10 IMPRESSION: 1. Question of subtle acute versus prior fracture at base of fifth metacarpal, proximal phalanx. This is seen on oblique view only with slight cortical regularity but not confirmed on other views without any significant soft tissue swelling. Correlate for focal point tenderness. Follow-up radiographs one week of persistent symptoms. Electronically authenticated by: ARMIN GALLO Date: 11/30/2023 22:40 Discharge Plan Discharge Chief Complaint: Fall Clinical Impression: Head injury, Laceration of nose, Contusion of both tibias, Hand fracture, right Patient Disposition: Home, Self-Care Condition: Good Mode of Transportation: Private Vehicle Prescriptions / Home Meds: No Action pregabalin 150 mg capsule 150 mg PO Q8H Patient Comments: DOSE VERIFIED WITH TIKA CLAUDIO carbidopa-levodopa 25-100 mg tablet 1 tab PO QID clopidogrel 75 mg tablet 75 mg PO DAILY isosorbide mononitrate 30 mg tablet extended release 24 hr 30 mg PO DAILY primidone 50 mg tablet 50 mg PO QID tizanidine 4 mg tablet 4 mg PO TID PRN (Reason: muscle spasticity) atorvastatin 40 mg tablet 40 mg PO BEDTIME citalopram 40 mg tablet 40 mg PO QAM metformin 750 mg tablet extended release 24 hr 750 mg PO QDAY Rx Instructions: WITH EVENING MEAL oxybutynin chloride 10 mg tablet extended release 24hr 10 mg PO .QD hydrocodone-acetaminophen 10-325 mg tablet 1 tab PO Q8H PRN (Reason: pain) aspirin 81 mg tablet,delayed release (DR/EC) 81 mg PO DAILY Print Language: Chinese Instructions: Hand Fracture (ED), Head Injury (ED), Contusion in Adults (ED), Laceration Without Closure (ED) Additional Instructions: follow up with orthopedics and family doctor next week Referrals: Physician,Non-Staff, [Primary Care Provider] - 1 week Emerson Cano MD [Physician] - 1-2 weeks Discharge Date/Time: 12/01/23 00:01 Procedures ED Procedure Instructions Procedures Procedures: ulnar gutter splint applied to right hand/wrist due to right hand fracture fiber glass material used to form the splint. N/V post procedure WNL
--- NOTE | 2023-11-30 21:10 | XR_ITS ---
The [address] [address] Patient Name: JAXSON QUEZADA MRN: [id number] date: 1950 Sex: F Assigned Patient Location: ER Current Patient Location: ER Accession/Order Number: [id number] Exam Date: 11/30/2023 21:38 Report Date: 11/30/2023 22:40 At the request of: HANS PALMER Procedure: XR hand RT min 3V EXAM: XR hand RT min 3V HISTORY: fell . [place] COMPARISON: None. TECHNIQUE: 3V right hand. FINDINGS: Question of subtle nondisplaced cortical fracture on one view only, oblique view involving proximal metaphysis of base of proximal phalanx fifth digit versus artifact. Correlate for point tenderness. No fractures are seen elsewhere. No acute subluxation or dislocation. There is moderate first CMC osteoarthritic changes and joint narrowing. Remaining joints at hand and wrist are maintained. There is some chondrocalcinosis of the scapholunate and lunotriquetral ligaments. Remaining soft tissues are normal. No swelling or retained opaque foreign body. XR/XR hand RT min 3V IMPRESSION: 1. Question of subtle acute versus prior fracture at base of fifth metacarpal, proximal phalanx. This is seen on oblique view only with slight cortical regularity but not confirmed on other views without any significant soft tissue swelling. Correlate for focal point tenderness. Follow-up radiographs one week of persistent symptoms. Electronically authenticated by: ARMIN GALLO Date: 11/30/2023 22:40
[2023-11-30 21:17] LABS: Basophils Percent Auto 0.4 % (0.2-2.0); Eosinophils Absolute Auto 0.1 10^3/uL (0.0-0.7); Eosinophils Percent Auto 0.7 % (0.9-7.0); Hemoglobin 14.3 g/dL (12.0-16.0); Immature Granulocytes Abs Auto 0.03 10^3/uL (0.00-0.03); Immature Granulocytes Pct Auto 0.4 % (0.0-0.5); Lymphocytes Absolute Auto 2.3 10^3/uL (1.2-3.8); Lymphocytes Percent Auto 28.3 % (20.5-60.0); Mean Corpuscular Hemoglobin 31.8 pg (26.7-34.0); Mean Corpuscular Volume 93.3 fL (81.0-99.0); Monocytes Absolute Auto 0.7 10^3/uL (0.3-0.8); Monocytes Percent Auto 7.9 % (1.7-12.0); Neutrophils Absolute Auto 5.2 10^3/uL (1.4-6.5); Neutrophils Percent Auto 62.3 % (43.0-75.0); Platelet Count 174 10^3/uL (150-450); Red Cell Distribution Width 14.6 % (11.0-15.0); White Blood Count 8.3 10^3/uL (4.0-11.0)
[2023-11-30 21:28] LABS: Anion Gap 12.9; BUN Creatinine Ratio 33.3; Calcium 8.9 mg/dL (8.5-10.1); Carbon Dioxide 26.9 mmol/L (21.0-32.0); Chloride 106 mmol/L (98-107); Estimated GFR (African America >60 (>=60); Estimated GFR (Non-African Ame >60 (>=60); Glucose 110 mg/dL (74-106); Potassium 3.8 mmol/L (3.5-5.1); Sodium 142 mmol/L (136-145)
[2023-11-30] MEDS: MORPHINE SULFATE 2 MG/ML SYRINGE IV (22:06)
[2023-11-30 22:13] VITALS: BP 158/56; PULSE 62; O2SAT 98
[2023-12-01 00:19] VITALS: BP 148/58; PULSE 87; O2SAT 94
== END 2023-12-01 00:01 | disposition home or self-care (01) ==
PROVIDERS: Emergency Provider Internal Medicine
DX: S09.90XA Unspecified injury of head, initial encounter (principal); S80.12XA Contusion of left lower leg, initial encounter; S80.11XA Contusion of right lower leg, initial encounter; S62.91XA Unspecified fracture of right hand, initial encounter for closed fracture; S01.21XA Laceration without foreign body of nose, initial encounter; G20.A1 Parkinson's disease without dyskinesia, without mention of fluctuations; W19.XXXA Unspecified fall, initial encounter
CPT/HCPCS: 29125; 36415; 70450; 72125; 73130; 73590; 80048; 85025; 96374; 99285; J2270

== ENCOUNTER 2023-12-24 10:00 | Outpatient (OUT) | payer MEDICARE, MEDICAID, SELFPAY ==
--- NOTE | 2023-12-24 | XR_ITS ---
The [address] [address] Patient Name: JAXSON QUEZADA MRN: [id number] date: 1950 Sex: F Assigned Patient Location: Current Patient Location: Accession/Order Number: [id number] Exam Date: 12/24/2023 10:20 Report Date: 12/25/2023 05:50 At the request of: BLAYNE BARRY Procedure: XR hand RT min 3V PROCEDURE: XR hand RT min 3V HISTORY: RIGHT HAND PAIN COMPARISON: XR hand right 11/30/2023 FINDINGS: BONES:Subtle cortical irregularity along medial base of 5th digit proximal phalanx. SOFT TISSUES:No visible soft tissue swelling. EFFUSION:None visible. OTHER: Negative. XR/XR hand RT min 3V IMPRESSION: 1. Stable, nondisplaced fracture involving base of 5th proximal phalanx. This could also be sequela of remote injury. No earlier studies for comparison. Electronically authenticated by: BLAYNE CALDERÓN Date: 12/25/2023 05:50
== END 2023-12-24 10:01 | disposition home or self-care (01) ==
LOC: EC 10:00
PROVIDERS: Visit Provider Orthopaedic Surgery
DX: M79.641 Pain in right hand (principal); S62.646D Nondisplaced fracture of proximal phalanx of right little finger, subsequent encounter for fracture with routine healing
CPT/HCPCS: 73130

== ENCOUNTER 2024-10-29 12:25 | Outpatient (OUT) | payer MEDICARE, MEDICAID, SELFPAY ==
--- NOTE | 2024-10-29 12:50 | CA_ITS ---
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 Interpretive Statements Summary of the findings: Right leg: LYNN= 0.99; TBI= 0.64. Doppler waveforms demonstrate biphasic flow at the posterior tibial and dorsalis pedis arteries. Left leg: LYNN= 0.81; TBI= 0.64. Doppler waveforms demonstrate monophasic flow at the posterior tibial and dorsalis pedis arteries. Segmental pressures: Segmental pressures suggest significant right femoropopliteal and left infrapopliteal disease. Pulse volume recordings: PVRs at the high thigh, below knee, and ankle levels show normal waveforms. Conclusion: Right and left ankle-brachial indices are suggestive of normal right sided and reduced left sided overall arterial flow at rest. Toe-brachial indices are suggestive of bilateral PAD. Segmental pressures suggest significant right femoropopliteal and left infrapopliteal disease. Pulse volume recordings indicate good overall resting arterial flow. The study shows evidence of PAD with normal right sided and reduced left sided overall arterial flow at rest. There is evidence of significant right femoropopliteal and left infrapopliteal disease. Electronically Signed On 10-30-2024 9:03:32 EDT by CHARLOTTE KILGORE M.D.
== END 2024-10-29 12:26 | disposition home or self-care (01) ==
LOC: CARD 12:26
PROVIDERS: PCP Internal Medicine
DX: I73.9 Peripheral vascular disease, unspecified (principal)
CPT/HCPCS: 93923

== ENCOUNTER 2024-12-29 12:29 | Outpatient (OUT) | payer MEDICARE, MEDICAID, SELFPAY ==
--- OUTSIDE RECORDS SUMMARY | 2024-12-18 15:50 | XMS_ITS | Encounter Summary ---
Author Organization [facility] Address [address] [place] [address] Care Team Providers Care Photographer'S Model Name Role Phone Villa Nicolas MD Primary Care Provider [phone] Villa Nicolas MD Unavailable [phone] Montse Celestin RN Unavailable [phone] Barbara Mccann NP Unavailable Unavailable Reason for Visit * Reason Comments Follow-up Ulcer check Encounter Details Date Type Department Care Team (Latest Contact Info) Description 12/18/2024 3:50 PM EDT Office Visit [facility] [address] [facility] [address] [place] [address] Fortunato Moreno, DPKaren [address] [facility] [address] [place] [address] 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) (Primary Dx); PVD (peripheral vascular disease); Foot ulcer, left, with fat layer exposed (HCC) Social History Tobacco Use Types Packs/Day Years Used Date Smoking Tobacco: Every Day Cigarettes 0.3 20 Smokeless Tobacco: Never Tobacco Cessation:Ready to Q uit: Not Asked; Counseling Given: Yes Alcohol Use Standard Drinks/Week Comments Never 0 (1 standard drink = 0.6 oz pure alcohol) caffeine intake : 2-3 cups per day coffee, soda PHQ-2 Answer Date Recorded Patient Health Questionnaire-2 Score 0 2024 Comments Unknown Sex and Gender Information Value Date Recorded Sex Assigned at Not on file Legal Sex Female 7:20 PM EDT Gender Identity Not on file Sexual Orientation Not on file documented as of this encounter Last Filed Vital Signs Vital Sign Reading Time Taken Comments Blood Pressure - - Pulse - - Temperature - - Respiratory Rate 18 12/18/2024 3:16 PM EDT Oxygen Saturation - - Inhaled Oxygen Concentration - - Weight 52.6 kg (116 lb) 12/18/2024 3:16 PM EDT Height 157.5 cm (5' 2 ) 12/18/2024 3:16 PM EDT Body Mass Index 21.22 12/18/2024 3:16 PM EDT documented in this encounter Progress Notes * Fortunato Moreno DPM - 12/18/2024 3:50 PM EDT Patient: Mirna Bobo : 1950 PCP: Villa Nicolas MD SUBJECTIVE Pt present today for follow up of ulceration to left foot. Pt denies any n/f/v/c. Patient states that they have been using the following treatments for the ulcer of Betadine Pt is a DM2. . Patient states negative pain to the left 2nd toe Patient denies n/f/v/c. She had referral to vascular sx on prior visit. Patient had vascular intervention according to her with the angioplasty procedure Allergies: Allergies Allergen Reactions Amoxicillin-Pot Clavulanate Angioedema Duloxetine Hives Mixed Ragweed Penicillin G Unknown Past Medical History: Past Medical History: Diagnosis Date Allergies angina Anxiety Arthritis Carotid artery disease Congestive heart failure (CHF) (HCC) COVID-19 01/2020 Depression Diabetes mellitus, type 2 (HCC) Fall 02/21/2020 inability to care for self Gallbladder disease GERD (gastroesophageal reflux disease) Hearing loss of right ear, unspecified hearing loss type History of blood clots History of echocardiogram 02/09/2017 EF >55% History of migraine headaches Hypertension Multifocal pneumonia 04/03/2023 Myocardial infarction (HCC) Pneumonia 03/29/2023 Medications: Current Outpatient Medications: amantadine (Symmetrel) 100 MG tablet, Take 1 tablet (100 mg) by mouth Daily, Disp: 30 tablet, Rfl: 1 aspirin 81 MG EC tablet, Take 1 tablet (81 mg) by mouth in the morning., Disp: 100 tablet, Rfl: 3 atorvastatin (Lipitor) 40 MG tablet, TAKE 1 TABLET BY MOUTH IN THE MORNING, Disp: 100 tablet, Rfl: 3 carbidopa-levodopa (Sinemet) 25-100 MG tablet, Take 1.5 tablets by mouth in the morning and 1.5 tablets at noon and 1.5 tablets in the evening and 1.5 tablets before bedtime., Disp: 180 tablet, Rfl: 2 clopidogrel (Plavix) 75 MG tablet, TAKE 1 TABLET BY MOUTH ONCE DAILY, Disp: 30 tablet, Rfl: 10 cyanocobalamin (Vitamin B-12) 1000 MCG tablet, Take 1,000 mcg by mouth Daily, Disp: , Rfl: dipyridamole (Persantine) 50 MG tablet, Take 1 tablet (50 mg) by mouth in the morning and 1 tablet (50 mg) at noon and 1 tablet (50 mg) in the evening and 1 tablet (50 mg) before bedtime., Disp: 120 tablet, Rfl: 11 Farxiga 10 MG, Take 10 mg by mouth Daily, Disp: , Rfl: HYDROcodone-acetaminophen (Madison) 10-325 MG tablet, Take 1 tablet by mouth every 6 (six) hours if needed for severe pain, Disp: 120 tablet, Rfl: 0 isosorbide mononitrate ER (Imdur) 30 MG 24 hr tablet, Take 30 mg by mouth Daily, Disp: , Rfl: lisinopril 5 MG tablet, Take 5 mg by mouth in the morning., Disp: , Rfl: metFORMIN XR (Glucophage-XR) 750 MG 24 hr tablet, Take 1 tablet (750 mg) by mouth Daily Take with evening meal, Disp: 90 tablet, Rfl: 3 metoprolol succinate XL (Toprol-XL) 25 MG 24 hr tablet, Take 25 mg by mouth in the morning., Disp: , Rfl: nitroglycerin (Nitrostat) 0.4 MG SL tablet, Place 0.4 mg under the tongue every 5 (five) minutes ifneeded., Disp: , Rfl: nystatin (Mycostatin) 319268 UNIT/GM powder, every 12 (twelve) hours., Disp: , Rfl: oxybutynin XL (Ditropan-XL) 10 MG 24 hr tablet, TAKE 1 TABLET BY MOUTH EVERY MORNING, Disp: 100 tablet, Rfl: 3 pregabalin (Lyrica) 150 MG capsule, Take 1 capsule (150 mg) by mouth in the morning and 1 capsule (150 mg) in the evening and 1 capsule (150 mg) before bedtime., Disp: 90 capsule, Rfl: 3 primidone (Mysoline) 250 MG tablet, TAKE 1 TABLET BY MOUTH AT BEDTIME, Disp: 90 tablet, Rfl: 1 tiZANidine (Zanaflex) 4 MG tablet, TAKE 1 TABLET BY MOUTH EVERY 6 HOURS IF NEEDED FOR MUSCLE SPASMS, Disp: 30 tablet, Rfl: 10 varenicline (Chantix) 1 MG tablet, Take 1 tablet (1 mg) by mouth in the morning and 1 tablet (1 mg)before bedtime. Take with full glass of water.., Disp: 60 tablet, Rfl: 5 Vortioxetine HBr (Trintellix) 10 MG tablet, Take 10 mg by mouth Daily, Disp: 30 tablet, Rfl: 11 Social History: Social History Socioeconomic History Marital status: Spouse name: Not on file Number of children: Not on file Years of education: Not on file Highest education level: Not on file Occupational History Not on file Tobacco Use Smoking status: Every Day Current packs/day: 0.25 Average packs/day: 0.3 packs/day for 20.0 years (5.0 ttl pk-yrs) Types: Cigarettes Smokeless tobacco: Never Vaping Use Vaping status: Never Used Substance and Sexual Activity Alcohol use: Never Comment: caffeine intake : 2-3 cups per day coffee, soda Drug use: Defer Sexual activity: Defer Other Topics Concern Not on file Social History Narrative Not on file Social Drivers of Health Financial Resource Strain: Medium Risk (07/26/2023) Received from [facility] Overall Financial Resource Strain (CARDIA) Difficulty of Paying Living Expenses: Somewhat hard Food Insecurity: Food Insecurity Present (07/26/2023) Received from [facility] Hunger Vital Sign Within the past 12 months, you worried that your food would run out before you got the money to buymore.: Sometimes true Ran Out of Food in the Last Year: Not on file Transportation Needs: No Transportation Needs (07/26/2023) Received from [facility] Transportation In the past 12 months, has lack of transportation kept you from medical appointments or from getting medications?: No Lack of Transportation (Non-Medical): Not on file Physical Activity: Not on file Stress: Not on file Social Connections: Not on file Intimate Partner Violence: Unknown (07/26/2023) Received from [facility] Humiliation, Afraid, Rape, and Kick questionnaire Fear of Current or Ex-Partner: No Emotionally Abused: Not on file Physically Abused: Not on file Sexually Abused: Not on file Housing Stability: Low Risk (07/26/2023) Received from [facility] Housing Stability Vital Sign Unable to Pay for Housing in the Last Year: Not on file Number of Places Lived in the Last Year: Not on file In the last 12 months, was there a time when you did not have a steady place to sleep or slept in ashelter (including now)?: No ROS: General: denies fever, chills, fatigue, malaise GI: denies loose or watery stool on antibiotic OBJECTIVE LE EXAM: DERM: Elongated thick yellow crumbly nails digits 1 through 10. negativehair growth b/l feet. Left 2nd toe at PIPJ region has increased edema with notable 0.3 cm x 0.3 cm 0.2 cm subcutaneous thickness depth ulceration with negative erythema surrounding wound and fibrous slough with negative probe to bone VASC: barely palpable DP and negative PT pedal pulses. Warm to cool tibia to toes bilaterally NEURO: 5.07 [place] Chago monofilament test intact to digits and forefoot bilaterally 125Hz tuning fork diminished to 1st MPJ bilaterally ORTHO: Positive pain on palpation to toenails of the left 1,2,3,4,5 toes and right 1,2,3,4,5 toes Foot +0 /5 DF of the left foot minimal pain on palpation left 2nd toe ulcer site LYNN PVR SEGMENTAL [place] [address] Cardiology Report Signed Patient: MIRNA BOBO MR#: [id number] : 1950 Acct:[id number] Age/Sex: 73 / F ADM Date: 10/29/24 Loc: CARD Attending Dr: FORTUNATO MORENO Ordering Physician: FORTUNATO MORENO Date of Service: 10/29/24 Procedure(s): CA segmental UE or LE PAZ Accession Number(s): [id number] cc: VILLA NICOLAS ; FORTUNATO MORENO [facility] Test Date: 2024-10-29 Pat Name: MIRNA BOBO Department: Room: - Gender: Female Tour Coordinator: Monica Gibson : 1950 Requested By: FORTUNATO MORENO Order Number: [id number] Reading MD: CHARLOTTE KILGORE M.D. Interpretive Statements Summary of the findings: Right leg: LYNN= 0.99; TBI= 0.64. Doppler waveforms demonstrate biphasic flow at the posterior tibial and dorsalis pedis arteries. Left leg: LYNN= 0.81; TBI= 0.64. Doppler waveforms demonstrate monophasic flow at the posterior tibial and dorsalis pedis arteries. Segmental pressures: Segmental pressures suggest significant right femoropopliteal and left infrapopliteal disease. Pulse volume recordings: PVRs at the high thigh, below knee, and ankle levels show normal waveforms. Conclusion: Right and left ankle-brachial indices are suggestive of normal right sided and reduced left sided overall arterial flow at rest. Toe-brachial indices are suggestive of bilateral PAD. Segmental pressures suggest significant right femoropopliteal and left infrapopliteal disease. Pulse volume recordings indicate good overall resting arterial flow. The study shows evidence of PAD with normal right sided and reduced left sided overall arterial flow at rest. There is evidence of significant right femoropopliteal and left infrapopliteal disease. Electronically Signed On 10-30-2024 9:03:32 EDT by CHARLOTTE KILGORE M.D. Dictated By: CHARLOTTE KILGORE Signed By: 10/30/2490210/30/24 0904 DD/ 1407 TD/TT: Kettle Hand: ASSESSMENT 1. 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 PVD (peripheral vascular disease) 3. Foot ulcer, left, with fat layer exposed (HCC) PLAN Continue with AFO Patient to use Betadine daily to area of ulceration with home health applying Sharp debridement with 15 blade of subcutaneous ulceration to left foot with active bleeding noted and removal and excision of fibrotic and necrotic tissue to wound and DSD applied with neosporin. Ptto continue with Betadine daily and home health to apply Betadine with dry sterile dressing daily to the left 2nd toe Fortunato Moreno DPM documented in this encounter Plan of Treatment Upcoming Encounters Date Type Department Care Team (Late st Contact Info) Description 01/01/2025 1:30 PM EDT Office Visit [facility] [address] [facility] [address] [place] [address] Fortunato Moreno, DPKaren [address] [facility] [address] [place] [address] 03/30/2025 1:00 PM EST Office Visit [facility] [facility] [address] [facility] [address] [place] [address] Villa Nicolas MD [address] [facility] [address] [place] [address] documented as of this encounter Visit Diagnoses Diagnosis 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)- Primary PVD (peripheral vascular disease) Unspecified peripheral vascular disease Foot ulcer, left, with fat layer exposed (HCC) 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)- Primary PVD (peripheral vascular disease) Unspecified peripheral vascular disease Foot ulcer, left, with fat layer exposed (HCC) Left foot drop Other acquired deformity of ankle and foot documented in this encounter Care Teams Photographer'S Model Relationship Specialty Start Date End Date Villa Nicolas MD [address] [facility] [address] [place] [address] PCP - General Internal Medicine 08/15/22 Villa Nicolas MD [address] [facility] [address] [place] [address] PCP - ACO Reach 09/04/22 Montse Celestin, KYLE [address] [place] [address] Registered Nurse Family Medicine 04/06/23 Barbara Mccann NP [address] [place] [address] Nurse Practitioner Neurology 06/17/24 documented as of this encounter
--- OUTSIDE RECORDS SUMMARY | 2024-12-28 20:00 | XMS_ITS | Clinical Summary ---
Author Organization Unknown Care Team Providers Care Machine Tool Technician Instructor Name Role Phone BELINDA PONCE Unavailable Unavailable HORACE MEDINA, SHELLY Unavailable Unavailnaren ALVAREZ RN, TADEO Unavailable Unavailable BRITNEY WRIGHT, SANDRA Unavailable Unavailable Payers Payer Name Policy Type Policy Number Effective Date Expira tion Date MEDICAID STATE [id number] Problems Condition Name Condition Details Condition Category Status Onset Date Resolution Date Last Treatment Date Treating Clinician Comments PARKINSON'S DISEASE WITH DYSKINESIA, WITH FLUCTUATIONS Active 2023-03 0 00:00: 00 MAJOR DEPRESSIVE DISORDER, RECURRENT, IN FULL REMISSION Active 2023-03 0 00:00: 00 INTERVERTEBR AL DISC DISORDERS WITH MYELOPATHY, LUMBAR REGION Active 2023-03 0 00:00: 00 ESSENTIAL (PRIMARY) HYPERTENSION Active 2023-03 0 00:00: 00 HEART FAILURE, UNSPECIFIED Active 2023-03 0 00:00: 00 TYPE 2 DIABETES MELLITUS WITHOUT COMPLICATION S Active 2023-03 0 00:00: 00 ANXIETY DISORDER, UNSPECIFIED Active 2023-03 0- 00:00: 00 ASSISTED (CURRENT) USE OF OPIATE ANALGESIC Active 05-04 00:00: 00 ASSISTED (CURRENT) USE OF ANTITHROMBOT ICS/ANTIPLAT ELETS Active 2023-03 00:00: 00 COGNOS CONSULTANT (CURRENT) USE OF ASPIRIN Active 2023-03 00:00: 00 COGNOS CONSULTANT (CURRENT) USE OF ORAL HYPOGLYCEMIC DRUGS Active 2023-03 00:00: 00 Allergies, Adverse Reactions, Alerts Allergy Name Allergy Type Status Severity Reaction(s) Onset Date Inactive Date Treating Clinician Comments RAGWEED Propensity to adverse reactions Active 2023-03- 14:29: 27 DULOXETINE Propensity to adverse reactions Active 2023-03 14:29: 06 AMOXICILLIN K+CLAVULANAT E Propensity to adverse reactions Active 2023-03 14:28: 51 PENICILLIN G SODIUM Propensity to adverse reactions Active 2023-03 14:29: 20 Medications Ordered Medication Name Filled Medication Name Start Date Stop Date Current Medication? Ordering Clinician Indication Dosage Frequency Signature (SIG) Comments Components atorvastati n 40 mg tablet 2023-03 00:00: 00 Yes [id number] CHOLESTEROL 1 tablet DAILY 1 tablet DAILY (route: oral) Med Classific ation: Cardiovas cular Therapy Agents carbidopa 25 mg-levodopa 100 mg tablet 2023-03 00:00: 00 Yes [id number] PARKINSONS 1.5 tablet FOUR TIMES A DAY 1.5 tablet FOUR TIMES A DAY (route: oral) Med Classific ation: Central Nervous System Agents clopidogrel 75 mg tablet 2023-03 00:00: 00 Yes [id number] ANTICOAGULA TION 1 tablet DAILY 1 tablet DAILY (route: oral) Med Classific ation: Hematolog ical Agents Farxiga 10 mg tablet 2023-03 00:00: 00 Yes [id number] HTN 1 tablet DAILY 1 tablet DAILY (route: oral) Med Classific ation: Endocrine lisinopril 5 mg tablet 2023-03 00:00: 00 Yes [id number] HTN 1 tablet DAILY 1 tablet DAILY (route: oral) Med Classific ation: Cardiovas cular Therapy Agents metoprolol succinate ER 25 mg tablet,exte nded release 24 hr 2023-03 00:00: 00 Yes [id number] HTN 1 tablet DAILY 1 tablet DAILY (route: oral) Med Classific ation: Cardiovas cular Therapy Agents oxybutynin chloride ER 10 mg tablet,exte nded release 24 hr 2023-03 00:00: 00 Yes [id number] OVERACTIVE BLADDER 1 tablet DAILY 1 tablet DAILY (route: oral) Med Classific ation: Genitouri nary Therapy primidone 250 mg tablet 2023-03 00:00: 00 Yes [id number] PARKINSONS 1 tablet AT BEDTIME 1 tablet AT BEDTIME (route: oral) Med Classific ation: Central Nervous System Agents hydrocodone 10 mg-acetamin ophen 325 mg tablet 2023-03 00:00: 00 03-05 00:00 :00 No [id number] Unavailable Per instruc tions EVERY 8 HOURS Per instructio ns EVERY 8 HOURS (route: oral) Med Classific ation: Analgesic , Anti-infl ammatory or Antipyret ic pregabalin 150 mg capsule 2023-03 00:00: 00 Yes [id number] NEUROPATHY 1 capsule 3 TIMES DAILY 1 capsule 3 TIMES DAILY (route: oral) Med Classific ation: Central Nervous System Agents aspirin 81 mg chewable tablet 2023-03 00:00: 00 Yes [id number] ANTICOAGULA TION 1 tablet DAILY 1 tablet DAILY (route: oral) Med Classific ation: Hematolog ical Agents cyanocobala min (vit B-12) 1,000 mcg tablet 2023-03 00:00: 00 Yes [id number] SUPPLEMENT 1 tablet DAILY 1 tablet DAILY (route: oral) Med Classific ation: Electroly te Balance-N utritiona l Products entacapone 200 mg tablet 2023-03 00:00: 00 Yes [id number] PARKINSONS 1 tablet 4 TIMES DAILY 1 tablet 4 TIMES DAILY (route: oral) Med Classific ation: Central Nervous System Agents metformin ER 750 mg tablet,exte nded release 24 hr 2023-03 00:00: 00 Yes [id number] DM 1 tablet DAILY 1 tablet DAILY (route: oral) Med Classific ation: Endocrine nitroglycer in 0.4 mg sublingual tablet 2023-03 00:00: 00 Yes [id number] CHEST PAIN 1-3 tablet DIRECTED 1-3 tablet DIRECTED (route: sublingual ) Med Classific ation: Cardiovas cular Therapy Agents nystatin 100,000 unit/gram topical powder 2023-03 00:00: 00 Yes [id number] RASH 1 gram 2 TIMES DAILY 1 gram 2 TIMES DAILY (route: topical) Med Classific ation: Dermatolo gical tizanidine 4 mg capsule 2023-03 00:00: 00 Yes [id number] PAIN 1 capsule EVERY 6 HOURS 1 capsule EVERY 6 HOURS (route: oral) Med Classific ation: Locomotor System Trintellix 10 mg tablet 2023-03 00:00: 00 Yes [id number] DEPRESSION 1 tablet DAILY 1 tablet DAILY (route: oral) Med Classific ation: Central Nervous System Agents hydrocodone 10 mg-acetamin ophen 325 mg tablet 05-04 00:00: 00 Yes [id number] PAIN 1 tablet EVERY 8 HOURS 1 tablet EVERY 8 HOURS (route: oral) Med Classific ation: Analgesic , Anti-infl ammatory or Antipyret ic dipyridamol e 50 mg tablet 09-01 00:00: 00 Yes [id number] ANTICOAGULA TION 1 tablet 4 TIMES DAILY 1 tablet 4 TIMES DAILY (route: oral) Med Classific ation: Hematolog ical Agents Vital Signs Vital Name Observation Time Observation Value Commen ts Temperature 2024-12-26 15:07:00.000 96.9 [degF] Temperature 2024-12-19 12:35:00.000 97.4 [degF] Temperature 2024-12-12 13:38:00.000 97.6 [degF] Temperature 2024-12-05 13:32:00.000 97.4 [degF] Temperature 2024-11-28 13:40:00.000 97.5 [degF] Temperature 2024-11-21 14:20:00.000 97.3 [degF] Temperature 2024-11-14 14:36:00.000 97.5 [degF] Temperature 2024-11-07 13:34:00.000 97.4 [degF] Temperature 2024-10-31 13:26:00.000 97.2 [degF] Pulse 2024-12-26 15:07:00.000 60 /min Pulse 2024-12-19 12:35:00.000 89 /min Pulse 2024-12-12 13:38:00.000 73 /min Pulse 2024-12-05 13:32:00.000 93 /min Pulse 2024-11-28 13:40:00.000 90 /min Pulse 2024-11-21 14:20:00.000 64 /min Pulse 2024-11-14 14:36:00.000 72 /min Pulse 2024-11-07 13:34:00.000 72 /min Pulse 2024-10-31 13:26:00.000 100 /min Respirations 2024-12-26 15:07:00.000 16 /min Respirations 2024-12-19 12:35:00.000 16 /min Respirations 2024-12-12 13:38:00.000 16 /min Respirations 2024-12-05 13:32:00.000 16 /min Respirations 2024-11-28 13:40:00.000 16 /min Respirations 2024-11-21 14:20:00.000 16 /min Respirations 2024-11-14 14:36:00.000 16 /min Respirations 2024-11-07 13:34:00.000 16 /min Respirations 2024-10-31 13:26:00.000 16 /min Systolic Blood Pressure 2024-12-26 15:07:00.000 101 mm [Hg] Systolic Blood Pressure 2024-12-19 12:35:00.000 127 mm [Hg] Systolic Blood Pressure 2024-12-12 13:38:00.000 106 mm [Hg] Systolic Blood Pressure 2024-12-05 13:32:00.000 124 mm [Hg] Systolic Blood Pressure 2024-11-28 13:40:00.000 112 mm [Hg] Systolic Blood Pressure 2024-11-21 14:20:00.000 107 mm [Hg] Systolic Blood Pressure 2024-11-14 14:36:00.000 100 mm [Hg] Systolic Blood Pressure 2024-11-07 13:34:00.000 112 mm [Hg] Systolic Blood Pressure 2024-10-31 13:26:00.000 107 mm [Hg] Diastolic Blood Pressure 2024-12-26 15:07:00.000 60 mm [Hg] Diastolic Blood Pressure 2024-12-19 12:35:00.000 88 mm [Hg] Diastolic Blood Pressure 2024-12-12 13:38:00.000 76 mm [Hg] Diastolic Blood Pressure 2024-12-05 13:32:00.000 90 mm [Hg] Diastolic Blood Pressure 2024-11-28 13:40:00.000 87 mm [Hg] Diastolic Blood Pressure 2024-11-21 14:20:00.000 64 mm [Hg] Diastolic Blood Pressure 2024-11-14 14:36:00.000 68 mm [Hg] Diastolic Blood Pressure 2024-11-07 13:34:00.000 64 mm [Hg] Diastolic Blood Pressure 2024-10-31 13:26:00.000 66 mm [Hg] Plan of Treatment Planned Activity Planned Date Details Comments Future Scheduled Test SKILLED NU RSE TO EVALUATE AND DEVELOP PLAN OF CARE TO BE COUNTERSIGNED BY PHYSICIAN. SKILLED NURSE TO ASSESS/EVALUATE CO-MORBID CONDITIONS INCLUDING PARKINSONS, DM, HTN AND OTHER CONDITIONS THAT PRESENT THEMSELVES DURING THE COURSE OF THIS EPISODE TO IDENTIFY CHANGES AND INTERVENE TO MINIMIZE COMPLICATIONS. [code = SKILLED NURSE TO EVALUATE AND DEVELOP PLAN OF CARE TO BE COUNTERSIGNED BY PHYSICIAN. SKILLED NURSE TO ASSESS/EVALUATE CO-MORBID CONDITIONS INCLUDING PARKINSONS, DM, HTN AND OTHER CONDITIONS THAT PRESENT THEMSELVES DURING THE COURSE OF THIS EPISODE TO IDENTIFY CHANGES AND INTERVENE TO MINIMIZE COMPLICATIONS.] Future Scheduled Test SKILLED NU RSE TO OBSERVE AND ASSESS CARDIOVASCULAR SYSTEM TO IDENTIFY CHANGES AND INTERVENE TO MINIMIZE COMPLICATIONS. SKILLED NURSE TO PROVIDE SKILLED TEACHING RELATED TO ALTERED CARDIOVASCULAR STATUS INCLUDING PATHOPHYSIOLOGY, NUTRITION, MEDICATION REGIMEN, AND PERMITTED ACTIVITIES. MAY PERFORM O2 SATURATION LEVELS PRN FOR SIGNS AND/OR SYMPTOMS OF POSSIBLE RESPIRATORY COMPLICATIONS. [code = SKILLED NURSE TO OBSERVE AND ASSESS CARDIOVASCULAR SYSTEM TO IDENTIFY CHANGES AND INTERVENE TO MINIMIZE COMPLICATIONS. SKILLED NURSE TO PROVIDE SKILLED TEACHING RELATED TO ALTERED CARDIOVASCULAR STATUS INCLUDING PATHOPHYSIOLOGY, NUTRITION, MEDICATION REGIMEN, AND PERMITTED ACTIVITIES. MAY PERFORM O2 SATURATION LEVELS PRN FOR SIGNS AND/OR SYMPTOMS OF POSSIBLE RESPIRATORY COMPLICATIONS.] Future Scheduled Test SKILLED NU RSE TO PROVIDE SKILLED TEACHING/REINFORCEMENT OF MANAGEMENT OF HYPERTENSION. [code = SKILLED NURSE TO PROVIDE SKILLED TEACHING/REINFORCEMENT OF MANAGEMENT OF HYPERTENSION.] Future Scheduled Test SKILLED NU RSE TO PERFORM MULTIFACTOR FALL RISK ASSESSMENT AND IMPLEMENT INTERVENTIONS TO DECREASE RISK OF FALLS. SKILLED NURSE TO INSTRUCT ON HOME SAFETY, IMPACT OF POLYPHARMACY, ENVIRONMENTAL SAFETY, AND FALL PREVENTION. [code = SKILLED NURSE TO PERFORM MULTIFACTOR FALL RISK ASSESSMENT AND IMPLEMENT INTERVENTIONS TO DECREASE RISK OF FALLS. SKILLED NURSE TO INSTRUCT ON HOME SAFETY, IMPACT OF POLYPHARMACY, ENVIRONMENTAL SAFETY, AND FALL PREVENTION.] Future Scheduled Test SKILLED NU RSE FOR OBSERVATION / ASSESSMENT OF PAIN, EFFECTIVENESS OF PAIN MANAGEMENT REGIMEN AND SKILLED TEACHING RELATED TO PAIN MANAGEMENT. SKILLED NURSE TO INTERVENE WITH INCREASED PAIN LEVEL TO MINIMIZE COMPLICATIONS. [code = SKILLED NURSE FOR OBSERVATION / ASSESSMENT OF PAIN, EFFECTIVENESS OF PAIN MANAGEMENT REGIMEN AND SKILLED TEACHING RELATED TO PAIN MANAGEMENT. SKILLED NURSE TO INTERVENE WITH INCREASED PAIN LEVEL TO MINIMIZE COMPLICATIONS.] Future Scheduled Test SKILLED NU RSE FOR OBSERVATION / ASSESSMENT OF ENDOCRINE STATUS TO IDENTIFY CHANGES ASSOCIATED WITH EXACERBATION FOR EARLY INTERVENTION OF COMPLICATIONS. [code = SKILLED NURSE FOR OBSERVATION / ASSESSMENT OF ENDOCRINE STATUS TO IDENTIFY CHANGES ASSOCIATED WITH EXACERBATION FOR EARLY INTERVENTION OF COMPLICATIONS.] Future Scheduled Test SKILLED NU RSE TO REVIEW MEDICATION PROFILE AND RECONCILE MEDICATIONS NEEDED. SKILLED NURSE MAY INSTRUCT AND REINFORCE MEDICATION TEACHING RELATED TO USE OF MEDICATIONS TO TREAT DISEASE PROCESSES. SKILLED NURSE MAY FILL MEDI-FLYING TEACHER PER CURRENT MEDICATION ORDERS/PROFILE [id number]. [code = SKILLED NURSE TO REVIEW MEDICATION PROFILE AND RECONCILE MEDICATIONS NEEDED. SKILLED NURSE MAY INSTRUCT AND REINFORCE MEDICATION TEACHING RELATED TO USE OF MEDICATIONS TO TREAT DISEASE PROCESSES. SKILLED NURSE MAY FILL MEDI-FLYING TEACHER PER CURRENT MEDICATION ORDERS/PROFILE [id number].] Future Scheduled Test SKILLED NU RSE TO PREFILL FLYING TEACHER DEVICE Q 1XWEEK. [code = SKILLED NURSE TO PREFILL FLYING TEACHER DEVICE Q 1XWEEK.] Future Scheduled Test JUSTIFY NE ED FOR CONTINUED CARE (RECERT) DUE TO NEW GOALS AND/OR PROBLEMS: PATIENT CONTINUES TO REQUIRE SKILLED NURSE FOR MEDICATION MANAGEMENT [code = JUSTIFY NEED FOR CONTINUED CARE (RECERT) DUE TO NEW GOALS AND/OR PROBLEMS: PATIENT CONTINUES TO REQUIRE SKILLED NURSE FOR MEDICATION MANAGEMENT] Goal 2024-05-02 Patient Goal - T O TAKE MEDICATIONS CORRECTLY Goal 2024-07-02 Patient Goal - T O TAKE MEDICATIONS CORRECTLY Goal 2024-08-29 Patient Goal - T O TAKE MEDICATIONS CORRECTLY Goal 2024-10-27 Patient Goal - T O TAKE MEDICATIONS CORRECTLY Goal 2024-12-26 Patient Goal - T O TAKE MEDICATIONS CORRECTLY Goal Patient Goal - T O TAKE MEDICATIONS CORRECTLY Goal Provider Goal - A PLAN OF CARE WILL BE ESTABLISHED THAT MEETS ALL PATIENT'S NURSING NEEDS AND COUNTERSIGNED BY PHYSICIAN. Goal Provider Goal - CARDIOVASCULAR EXACERBATIONS WILL BE IDENTIFIED PROMPTLY AND INTERVENTIONS INITIATED TO MINIMIZE ASSOCIATED RISK. PATIENT / CAREGIVER WILL VERBALIZE/DEMONSTRATE AN ABILITY TO CARE FOR ALTERED CARDIOVASCULAR STATUS BY END OF EPISODE. ABNORMAL O2 SATURATION LEVELS WILL BE REPORTED TO PHYSICIAN. Goal Provider Goal - PATIENT / CAREGIVER WILL VERBALIZE/DEMONSTRATE ABILITY TO CARE FOR HYPERTENSION. Goal Provider Goal - PATIENT WILL DEMONSTRATE/VERBALIZE KNOWLEDGE OF INTERVENTIONS TO PREVENT FALLS AND SAFETY HAZARDS. PATIENT WILL REMAIN SAFE WITHIN HOME ENVIRONMENT. Goal Provider Goal - INCREASED PAIN OR PAIN CONTROL MEASURES WILL BE INDENTIFIED AND PROMPTLY REPORTED TO THE PHYSICIAN. PATIENT / CAREGIVER WILL VERBALIZE UNDERSTANDING OF PHARMACOLOGIC AND NON-PHARMACOLOGIC PAIN CONTROL MEASURES. Goal Provider Goal - CHANGES IN ENDOCRINE STATUS WILL BE IDENTIFIED AND REPORTED TO PHYSICIAN FOR PROMPT INTERVENTION TO PREVENT ASSOCIATED RISKS. Goal Provider Goal - PATIENT WILL RECEIVE MEDICATIONS PRESCRIBED. Goal Provider Goal - PATIENT / CAREGIVER WILL DEMONSTRATE ABILITY TO ADMINISTER MEDICATIONS VIA FLYING TEACHER DEVICE. Progress Notes Progress Notes <paragraph>[Visit Date: 2024 by TADEO ALVAREZ RN]:</paragraph><paragraph>SKILLED NURSE VISIT FOR RECERTIFICATION, MEDICATION MANAGEMENT AND SUPERVISION OF SENIOR PRINCIPAL SOFTWARE ENGINEER. </paragraph><paragraph></paragraph><paragraph>THIS NURSE ASSESSED PATIENT AND TOOK VITAL SIGNS. PATIENT DENIES NAUSEA, CONSTIPATION, OR VOMITING. LUNG SOUNDS ARE CLEAR. SKIN IS DRY AND INTACT. BOWEL SOUNDS PRESENT. MEDICATION FLYING TEACHER FILLED FOR 7DAYS. NO REFILLS NEEDED. PATIENT DENIES ANY MEDICATION CHANGES. PATIENT DENIES ANY FALLS SINCE LAST SKILLED NURSE VISIT.</paragraph><paragraph></paragraph><paragraph>PATIENT TO BE RECERTIFIED AT THIS TIME. THIS NURSE CALLED PCP AND NOTIFIED OF RECERTIFICATION</paragraph> Encounters Start Date/Time End Date/Time Encounter Type Admission Type Attending [facility] Department Encounter ID Discharge Date Discharge Status Discharge Condition Discharge Reason Percent Goals Met 2024-10-31 00:00:00 2024-12-29 00:00:00 Outpatient RECERTIFIC ATTADEO PARDO [facility] [id number]
--- OUTSIDE RECORDS SUMMARY | 2024-12-29 12:32 | XMS_ITS | Encounter Summary ---
Author Organization [employer] Address [id number] [address] [place] [address] Care Team Providers Care Aquatic Instructor Name Role Phone Unavailable Primary Care Provider Unavailabl e Reason for Visit * Reason Onset Date Comments Neuro Appt 04/06/2022 Encounter Details Date Type Department Care Team (Late st Contact Info) Description 04/06/2022 Telephone [facility] [address] [place] [address] Pat Woodson Neuro Appt Social History Tobacco Use Types Packs/Day Years Used Date Smoking Tobacco: Never Assessed Childcare Answer Date Recorded Childcare Unknown 02/24/2020 Employment Answer Date Recorded Employment Unknown 02/24/2020 Purpose - Life Answer Date Recorded Purpose and direction in life Unknown Comments Unknown Sex and Gender Information Value Date Recorded Sex Assigned at Not on file Legal Sex Female 11:57 AM EDT Gender Identity Not on file Sexual Orientation Not on file documented as of this encounter Miscellaneous Notes * Telephone Encounter - Pat Woodson - 04/06/2022 4:26 PM EST Received new patient referral. Please call patient to schedule a new patient appointment for Parkinson's plus syndrome . *DR. DOWNEY Please make sure to verify patient insurance. PLEASE VERIFY IF THIS IS WORKERS COMP AND DOCUMENT (We do not accept any new workers comp cases) * Telephone Encounter - Viviana Cook - 04/06/2022 4:26 PM EST Scheduled 05/30/22 alec/ Ac Paperwork sent: 04/07/22 Ins verified documented in this encounter Plan of Treatment Not on file documented as of this encounter Visit Diagnoses Not on filedocumented in this encounter
--- OUTSIDE RECORDS SUMMARY | 2024-12-29 12:32 | XMS_ITS | Encounter Summary ---
Author Organization [facility] Address [address] [place] [address] Care Team Providers Care Camera Tuning Engineer Name Role Phone Villa Nicolas MD Primary Care Provider [phone] Villa Nicolas MD Unavailable [phone] Montse Celestin RN Unavailable [phone] Barbara Mccann NP Unavailable Unavailable Encounter Details Date Type Department Care Team (Late st Contact Info) Description 12/16/2024 Patient Outreach [facility] [address] [place] [address] Montse Celestin, KYLE [address] [facility] [address] [place] [address] Social History Tobacco Use Types Packs/Day Years Used Date Smoking Tobacco: Every Day Cigarettes 0.3 20 Smokeless Tobacco: Never Alcohol Use Standard Drinks/Week Comments Never 0 [...] on file documented as of this encounter Progress Notes * Montse Celestin RN - 12/16/2024 12:15 PM EDT Chart reviewed. Called pt for monthly monitor call. , requested call back <December 16, 2024, 15:41 - Montse Celestin RN> Returned call to pt, states she is doing okay. Discussed that Chantix was sent to the pharmacy today. Discussed upcoming appt with Dr Moreno for ulcer is 12/18. Pt has nursing coming in for treatments. On 12/23 has Cardiology appt. Pt reports no medication changes, taking all medications as ordered. No other refills are needed. Pt reports no changes to medications, taking them as ordered, No refills needed. nurse does set up medications. Pt has not had influenza vaccine but she will get it. No other questions or concerns. Encouraged to call when needs arise. documented in this encounter Plan of Treatment Upcoming Encounters Date Type Department Care Team (Late st Contact Info) Description 01/01/2025 1:30 PM EDT Office Visit [facility] [address] [facility] [address] [place] [address] Fortunato Moreno, DPM [address] [facility] [address] [place] [address] 03/30/2025 1:00 PM EST Office Visit [facility] [place] [facility] [address] [facility] [address] [place] [address] Villa Nicolas MD [address] [facility] [address] [place] [address] documented as of this encounter Visit Diagnoses Diagnosis Parkinson's disease with dyskinesia and fluctuating manifestations (HCC)- Primary COPD, 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)- Primary PVD (peripheral vascular disease) Unspecified peripheral vascular disease Foot ulcer, left, with fat layer exposed (HCC) Left foot drop Other acquired deformity of ankle and foot documented in this encounter Care Teams Camera Tuning Engineer Relationship Specialty Start Date End Date Villa Nicolas MD [address] [facility] [address] [place] [address] PCP - General Internal Medicine 08/15/22 Villa Nicolas MD [address] [facility] [address] [place] [address] PCP - ACO Reach 09/04/22 Montse Celestin, KYLE [address] [place] [address] Registered Nurse Family Medicine 04/06/23 Barbara Mccann NP [address] [place] [address] Nurse Practitioner Neurology 06/17/24 documented as of this encounter
--- OUTSIDE RECORDS SUMMARY | 2024-12-29 12:32 | XMS_ITS | Encounter Summary ---
Author Organization [facility] Address [address] [place] [address] Care Team Providers Care Freight Shipping Agent Name Role Phone Villa Nicolas MD Primary Care Provider [phone] Villa Nicolas MD Unavailable Montse Celestin RN Unavailable [phone] Barbara Mccann NP Unavailable Unavailable Encounter Details Date Type Department Care Team ([facility] Contact Info) Description 09/09/2024 Abstract [facility] [place] [facility] [address] [facility] [address] [place] [phone] Villa Nicolas MD [address] [facility] [address] [place] [address] Social History Tobacco Use Types Packs/Day Years Used Date Smoking Tobacco: Every Day Cigarettes Smokeless Tobacco: Never Alcohol Use Standard Drinks/Week Comments Never 0 (1 standard drink = 0.6 oz pure alcohol) caffeine intake : 2-3 cups per day coffee, soda PHQ-2 Answer Date Recorded Patient Health Questionnaire-2 Score 0 09/08/2024 Comments Unknown Sex and Gender Information Value Date Recorded Sex Assigned at Not on file Legal Sex Female 7:20 PM EDT Gender Identity Not on file Sexual Orientation Not on file documented as of this encounter Plan of Treatment Upcoming Encounters Date Type Department Care Team ([facility] Contact Info) Description 01/01/2025 1:30 PM EDT Office Visit [facility] [address] [place] [phone] Fortunato Moreno, YUE [address] [facility] [address] [place] [address] 03/30/2025 1:00 PM EST Office Visit [facility] [place] [facility] [address] [place] [address] Villa Nicolas MD [address] [place] [address] documented as of this encounter Visit Diagnoses Not on filedocumented in this encounter Care Teams Freight Shipping Agent Relationship Specialty Start Date End Date Villa Nicolas MD [address] [place] [address] PCP - General Internal Medicine 08/15/22 Villa Nicolas MD [address] [place] [address] PCP - ACO Reach 09/04/22 Montse Celestin, KYLE [address] [place] [address] Registered Nurse Family Medicine 04/06/23 Barbara Mccann NP [address] [place] [address] Nurse Practitioner Neurology 06/17/24 documented as of this encounter
--- OUTSIDE RECORDS SUMMARY | 2024-12-29 12:32 | XMS_ITS | Encounter Summary ---
Author Organization [facility] [employer] [facility] tem Address [id number] [address] [place] [address] Care Team Providers Care Research Analyst Name Role Phone Unavailable Primary Care Provider Unavailabl e Encounter Details Date Type Department Care Team (Late st Contact Info) Description 07/24/2022 Orders Only [facility] [address] [place] [address] Cheri Roberts, APARTMENT LEASING CONSULTANT-ELECTRONIC FUNDS TRANSFER COORDINATOR [address] [facility] [address] [address] Social History Tobacco Use Types Packs/Day Years Used Date Smoking Tobacco: Every Day Cigarettes 0.5 10 Smokeless Tobacco: Never Alcohol Use Standard Drinks/Week Comments Not Currently 0 (1 standard drink = 0.6 oz pur e alcohol) PHQ-2 Answer Date Recorded Total Score 1 05/30/2022 Childcare Answer Date Recorded Childcare Unknown 02/24/2020 [...] as of this encounter Plan of Treatment Not on file documented as of this encounter Procedures Procedure Name Priority Date/Time Associated Diagnosis Comments MR LUMBAR SPINE WO CONT Routine 06/27/2022 NERVE CONDUCTION STUDY Routine 04/18/2019 documented in this encounter Results * MR lumbar spine without contrast (06/27/2022) Anatomical Region Laterality Modality MSK, Neuro, Spine, L-spine, Spine Covera N/A Magnetic Resonance us Not In System Ref Prov IMG MRI ORDERABLES Final Result * Nerve Conduction Study (NCV) (04/18/2019) us Cheri Roberts APARTMENT LEASING CONSULTANT-ELECTRONIC FUNDS TRANSFER COORDINATOR NEUROLOGY ORDERAB LES Final Result Performing Organization Address City/State/[facility] Co de Phone Number MANUALLY TRANSCRIBED RESULTS documented in this encounter Visit Diagnoses Not on filedocumented in this encounter Additional Health Concerns Assessment Noted Time PHQ-9 Depression Total Score: 1 05/31/19 23 2:20 PM EST documented as of this encounter
--- OUTSIDE RECORDS SUMMARY | 2024-12-29 12:32 | XMS_ITS | Encounter Summary ---
Author Organization [facility] Address [address] [place] [address] Care Team Providers Care Clinical Resource Nurse Name Role Phone Villa Nicolas MD Primary Care Provider [phone] Villa Nicolas MD Unavailable [phone] Montse Celestin RN Unavailable [phone] Barbara Mccann NP Unavailable Unavailable Encounter Details Date Type Department Care Team ([facility] Contact Info) Description 10/13/2024 Abstract [facility] [place] [facility] [address] [facility] [address] [place] [address] Villa Nicolas MD [address] [facility] 110 [place] [address] Social History Tobacco Use Types Packs/Day Years [...] Upcoming Encounters Date Type Department Care Team ([facility] Contact Info) Description 01/01/2025 1:30 PM EDT Office Visit [facility] [address] [place] [address] [place] [address] Fortunato Moreno, YUE 3006 [facility] 5 [place] [address] 03/30/2025 1:00 PM EST Office Visit [facility] [place] [facility] [address] [place] [address] [place] [address] Villa Nicolas MD [address] [place] [address] [place] [address] documented as of this encounter Visit Diagnoses Not on filedocumented in this encounter Care Teams Clinical Resource Nurse Relationship Specialty Start Date End Date Villa Nicolas MD [address] [place] [address] [place] [address] PCP - General Internal Medicine 08/15/22 Villa Nicolas MD [address] [place] [address] [place] [address] PCP - ACO Reach 09/04/22 Montse Celestin, KYLE [address] [place] [address] [place] [address] Registered Nurse Family Medicine 04/06/23 Barbara Mccann NP [address] [place] [address] [place] [address] Nurse Practitioner Neurology 06/17/24 documented as of this encounter
--- OUTSIDE RECORDS SUMMARY | 2024-12-29 12:32 | XMS_ITS | Clinical Summary ---
Author Organization [employer] [facility] Address [id number] [address] [place] [address] Care Team Providers Care Is Architect Name Role Phone Unavailable Primary Care Provider Unavailabl e Allergies Active Allergy Reactions Criticality Noted Date Comments Amoxicillin-Pot Clavulanate Angioedema High 05/31/19 23 Medications carbidopa-levod opa (SINEMET) 25-100 mg per tablet Take 1.5 tablets by mouth in the morning and 1.5 tablets at noon and 1.5 tablets in the evening and 1.5 tablets before bedtime. 03/29/2022 Active citalopram (CeleXA) 20 mg tablet Take 1 tablet (20 mg total) by mouth in the morning. 04/05/2022 Active pregabalin (LYRICA) 200 mg capsule Take 1 capsule (200 mg total) by mouth 3 (three) times a day. 12/30/2021 Active primidone (MYSOLINE) 50 mg tablet Take 1 tablet (50 mg total) by mouth in the morning and 1 tablet (50 mg total) at noon and 1 tablet (50 mg total) in the evening and 1 tablet (50 mg total) before bedtime. 03/16/2022 Active rOPINIRole (REQUIP) 0.25 mg tablet Take 1 tablet (0.25 mg total) by mouth in the morning and 1 tablet (0.25 mg total) at noon and 1 tablet (0.25 mg total) in the evening and 1 tablet (0.25 mg total) before bedtime. 03/14/2022 Active Active Problems No known active problems Family History Medical History Relation Name Comments ALS Father Heart disease Mother Relation Name Status Comments Father Mother Social History Tobacco Use Types Packs/Day Years Used Date Smoking Tobacco: Every Day Cigarettes 0.5 10 Smokeless Tobacco: Never Tobacco Cessation:Ready to Q uit: Yes; Counseling Given: Yes Alcohol Use Standard Drinks/Week Comments Not Currently [...] on file Sexual Orientation Not on file Last Filed Vital Signs Vital Sign Reading Time Taken Comments Blood Pressure 107/44 05/30/2022 2:28 PM EST Pulse 71 05/30/2022 2:28 PM EST Temperature - - Respiratory Rate - - Oxygen Saturation - - Inhaled Oxygen Concentration - - Weight - - Height - - Body Mass Index - - Plan of Treatment Health Maintenance Due Date Last Done Comments Tobacco Screening 1962 Adult BMI Screening 1968 DTaP,Tdap and Td Vaccines (1 - Tdap) 1969 Fall Risk Screening 12/09/2015 Zoster (Shingles) Vaccine (2 of 2) 01/14/2020 11/19/2019 Depression Screening 05/31/2023 05/30/2022 COVID-19 Vaccine ( - 2024-2 6 season) 2024 01/27/2022, 03/22/2021, 05/03/2020, Additional history exists Influenza Vaccine 11/24/2024 02/02/2022, , 03/22/2021, Additional history exists Medical Devices Not on file Insurance [place]ICAID [place] MEDICARE
--- OUTSIDE RECORDS SUMMARY | 2024-12-29 12:32 | XMS_ITS | Encounter Summary ---
Author Organization [facility] Address [address] [place] [address] Care Team Providers Care Anodic Operator Name Role Phone Villa Nicolas MD Primary Care Provider [phone] Villa Nicolas MD Unavailable [phone] Montse Celestin RN Unavailable [phone] Barbara Mccann NP Unavailable Unavailable Encounter Details Date Type Department Care Team ([facility] Contact Info) Description 09/10/2024 Abstract [facility] [place] [facility] [address] [facility] [address] [place] [address] Villa Nicolas MD [address] [facility] 110 [place] [address] Social History Tobacco Use Types Packs/Day Years [...] Upcoming Encounters Date Type Department Care Team ([facility] Contact Info) Description 01/01/2025 1:30 PM EDT Office Visit [facility] [address] [place] [address] [place] [address] Fortunato Moreno, YUE 3006 [facility] 5 [place] [address] 03/30/2025 1:00 PM EST Office Visit [facility] [place] [facility] [address] [place] [address] [place] [address] Villa Nicolas MD [address] [place] [address] [place] [address] documented as of this encounter Visit Diagnoses Not on filedocumented in this encounter Care Teams Anodic Operator Relationship Specialty Start Date End Date Villa Nicolas MD [address] [place] [address] [place] [address] PCP - General Internal Medicine 08/15/22 Villa Nicolas MD [address] [place] [address] [place] [address] PCP - ACO Reach 09/04/22 Montse Celestin, KYLE [address] [place] [address] [place] [address] Registered Nurse Family Medicine 04/06/23 Barbara Mccann NP [address] [place] [address] [place] [address] Nurse Practitioner Neurology 06/17/24 documented as of this encounter
--- OUTSIDE RECORDS SUMMARY | 2024-12-29 12:32 | XMS_ITS | Encounter Summary ---
Author Organization [facility] Address [address] [place] [address] Care Team Providers Care Hydraulic Technician Name Role Phone Villa Nicolas MD Primary Care Provider [phone] Villa Nicolas MD Unavailable [phone] Montse Celestin RN Unavailable [phone] Barbara Mccann NP Unavailable Unavailable Encounter Details Date Type Department Care Team (Late Contact Info) Description 12/18/2024 Bamboo flowsheet [facility] [address] [place] [address] [place] [address] Fortunato Moreno DPM [address] [address] Social History Tobacco Use Types Packs/Day Years [...] Encounters Date Type Department Care Team (Late Contact Info) Description 01/01/2025 1:30 PM EDT Office Visit [facility] [address] [facility] [address] [place] [address] Fortunato Moreno DPM [address] [place] [address] 03/30/2025 1:00 PM EST Office Visit [facility] [place] [facility] [address] [facility] [address] [place] [address] Villa Nicolas MD [address] [facility] [address] [place] [address] documented as of this encounter Visit Diagnoses Not on filedocumented in this encounter Care Teams Hydraulic Technician Relationship Specialty Start Date End Date Villa Nicolas MD [address] [facility] [address] [place] [address] PCP - General Internal Medicine 08/15/22 Vilal Nicolas MD [address] [facility] [address] [place] [address] PCP - ACO Reach 09/04/22 Montse Celestin, KYLE [address] [facility] [address] [place] [address] Registered Nurse Family Medicine 04/06/23 Barbara Mccann NP [address] [place] [address] [place] [address] Nurse Practitioner Neurology 06/17/24 documented as of this encounter
--- OUTSIDE RECORDS SUMMARY | 2024-12-29 12:32 | XMS_ITS | Encounter Summary ---
Author Organization [facility] Address [address] [place] [address] Care Team Providers Care Project Internship Name Role Phone Villa Nicolas MD Primary Care Provider [phone] Villa Nicolas MD Unavailable [phone] Montse Celestin RN Unavailable [phone] Barbara Mccann NP Unavailable Unavailable Encounter Details Date Type Department Care Team ([facility] Contact Info) Description 09/09/2024 Abstract [facility] [place] [facility] [address] [facility] [address] [place] [address] Villa Nicolas MD [address] [facility] 110 [place] [address] Social History Tobacco Use Types Packs/Day Years [...] Upcoming Encounters Date Type Department Care Team ([facility] Contact Info) Description 01/01/2025 1:30 PM EDT Office Visit [facility] [address] [place] [address] [place] [address] Fortunato Moreno, YUE 3006 [facility] 5 [place] [address] 03/30/2025 1:00 PM EST Office Visit [facility] [place] [facility] [address] [place] [address] [place] [address] Villa Nicolas MD [address] [place] [address] [place] [address] documented as of this encounter Visit Diagnoses Not on filedocumented in this encounter Care Teams Project Internship Relationship Specialty Start Date End Date Villa Nicolas MD [address] [place] [address] [place] [address] PCP - General Internal Medicine 08/15/22 Villa Nicolas MD [address] [place] [address] [place] [address] PCP - ACO Reach 09/04/22 Montse Celestin, KYLE [address] [place] [address] [place] [address] Registered Nurse Family Medicine 04/06/23 Barbara Mccann NP [address] [place] [address] [place] [address] Nurse Practitioner Neurology 06/17/24 documented as of this encounter
--- OUTSIDE RECORDS SUMMARY | 2024-12-29 12:32 | XMS_ITS | Encounter Summary ---
Author Organization [facility] Address [address] [place] [address] Care Team Providers Care Slip Tender Name Role Phone Villa Nicolas MD Primary Care Provider Villa Nicolas MD Unavailable [phone] Montse Celestin RN Unavailable [phone] Barbara Mccann NP Unavailable Unavailable Encounter Details Date Type Department Care Team (Late Contact Info) Description 11/26/2024 Abstract [facility] [address] [facility] [address] [place] [phone] Fortunato Moreno DPM [address] [address] Social History Tobacco Use Types Packs/Day Years [...] Visit [facility] [address] [facility] [address] [place] [address] Fortunato Moreno DPM [address] [address] 03/30/2025 1:00 PM EST Office Visit [facility] [place] [facility] [address] [place] [address] [place] [address] Villa Nicolas MD [address] [place] [address] [place] [address] documented as of this encounter Visit Diagnoses Not on filedocumented in this encounter Care Teams Slip Tender Relationship Specialty Start Date End Date Villa Nicolas MD [address] [place] [address] [place] [address] PCP - General Internal Medicine 08/15/22 Villa Nicolas MD [address] [facility] [address] [place] [address] PCP - ACO Reach 09/04/22 Montse Celestin, KYLE [address] [place] [address] [place] [address] Registered Nurse Family Medicine 04/06/23 Barbara Mccann NP [address] [place] [address] [place] [address] Nurse Practitioner Neurology 06/17/24 documented as of this encounter
--- OUTSIDE RECORDS SUMMARY | 2024-12-29 12:32 | XMS_ITS | Encounter Summary ---
Author Organization [facility] Address [address] [place] [address] Care Team Providers Care Construction Equipment Operator Name Role Phone Villa Nicolas MD Primary Care Provider [phone] Villa Nciolas MD Unavailable [phone] Montse Celestin RN Unavailable [phone] Barbara Mccann NP Unavailable Unavailable Encounter Details Date Type Department Care Team ([facility] Contact Info) Description 12/09/2024 Abstract [facility] [place] [facility] 112 [facility] 110 [place] [address] Villa Nicolas MD 112 [facility] 110 [place], [place] [address] Social History Tobacco Use Types Packs/Day Years [...] Upcoming Encounters Date Type Department Care Team ([facility] Contact Info) Description 01/01/2025 1:30 PM EDT Office Visit [facility] 112 [facility] 120 [place] [address] Fortunato Moreno DPM 3006 [facility] 5 [place] [address] 03/30/2025 1:00 PM EST Office Visit [facility] [place] [facility] [address] [place] [address] [place] [address] Villa Nicolas MD [address] [place] [address] [place] [address] documented as of this encounter Visit Diagnoses Not on filedocumented in this encounter Care Teams Construction Equipment Operator Relationship Specialty Start Date End Date Villa Nicolas MD [address] [place] [address] [place] [address] PCP - General Internal Medicine 08/15/22 Villa Nicolas MD [address] [place] [address] [place] [address] PCP - ACO Reach 09/04/22 Montse Celestin, KYLE [address] [place] [address] [place] [address] Registered Nurse Family Medicine 04/06/23 Barbara Mccann NP [address] [place] [address] [place] [address] Nurse Practitioner Neurology 06/17/24 documented as of this encounter
--- OUTSIDE RECORDS SUMMARY | 2024-12-29 12:32 | XMS_ITS | Encounter Summary ---
Author Organization [facility] Address [address] [place] [address] Care Team Providers Care Sheriffs Name Role Phone Villa Nicolas MD Primary Care Provider [phone] Villa Nicolas MD Unavailable [phone] Montse Celestin RN Unavailable [phone] Barbara Mccann NP Unavailable Unavailable Encounter Details Date Type Department Care Team ([facility] Contact Info) Description 11/03/2024 Abstract [facility] [place] [facility] [address] [facility] 110 [place] [address] Villa Nicolas MD [address] [facility] 110 [place] [address] Social History Tobacco Use Types Packs/Day Years [...] Upcoming Encounters Date Type Department Care Team ([facility] Contact Info) Description 01/01/2025 1:30 PM EDT Office Visit [facility] [address] [place] [address] [place] [address] Fortunato Moreno, YUE 3006 [facility] 5 [place] [address] 03/30/2025 1:00 PM EST Office Visit [facility] [place] [facility] [address] [place] [address] [place] [address] Villa Nicolas MD [address] [place] [address] [place] [address] documented as of this encounter Visit Diagnoses Not on filedocumented in this encounter Care Teams Sheriffs Relationship Specialty Start Date End Date Villa Nicolas MD [address] [place] [address] [place] [address] PCP - General Internal Medicine 08/15/22 Villa Nicolas MD [address] [place] [address] [place] [address] PCP - ACO Reach 09/04/22 Montse Celestin, KYLE [address] [place] [address] [place] [address] Registered Nurse Family Medicine 04/06/23 Barbara Mccann NP [address] [place] [address] [place] [address] Nurse Practitioner Neurology 06/17/24 documented as of this encounter
--- OUTSIDE RECORDS SUMMARY | 2024-12-29 12:32 | XMS_ITS | Encounter Summary ---
Author Organization [facility] Address [address] [facility] [place] [address] Care Team Providers Care Waste Removalist Name Role Phone Villa Nicolas MD Primary Care Provider [phone] Villa Nicolas MD Unavailable [phone] Montse Celestin RN Unavailable [phone] Barbara Mccann NP Unavailable Unavailable Encounter Details Date Type Department Care Team (Latest Contact Info) Description 12/18/2024 Travel Social History Tobacco Use Types Packs/Day Years [...] Visit [facility] [address] [place] [address] [place] [address] Fortunato Moreno, YUE 3006 [facility] 5 [place] [address] 03/30/2025 1:00 PM EST Office Visit [facility] [place] [facility] [address] [place] [address] [place] [address] Villa Nicolas MD [address] [facility] [address] [place] [address] documented as of this encounter Visit Diagnoses Not on filedocumented in this encounter Care Teams Waste Removalist Relationship Specialty Start Date End Date Villa Nicolas MD [address] [facility] [address] [place] [address] PCP - General Internal Medicine 08/15/22 Villa Nicolas MD [address] [facility] 110 [place] [address] PCP - ACO Reach 09/04/22 Montse Celestin, KYLE [address] [facility] 230 [place] [address] Registered Nurse Family Medicine 04/06/23 Barbara Mccann NP [address] [facility] [address] [place] [address] Nurse Practitioner Neurology 06/17/24 documented as of this encounter
--- OUTSIDE RECORDS SUMMARY | 2024-12-29 12:32 | XMS_ITS | Encounter Summary ---
Author Organization [facility] Address [address] [place] [address] Care Team Providers Care Assistant Football Coach Name Role Phone Villa Nicolas MD Primary Care Provider [phone] Villa Nicolas MD Unavailable [phone] Montse Celestin RN Unavailable [phone] Barbara Mccann NP Unavailable Unavailable Encounter Details Date Type Department Care Team ([facility] Contact Info) Description 11/11/2024 Abstract [facility] [place] [facility] [address] [facility] 110 [place] [address] Villa Nicolas MD [address] [facility] 110 [place] [address] Social History Tobacco Use Types Packs/Day Years [...] Upcoming Encounters Date Type Department Care Team ([facility] Contact Info) Description 01/01/2025 1:30 PM EDT Office Visit [facility] [address] [place] [address] [place] [address] Fortunato Moreno, YUE 3006 [facility] 5 [place] [address] 03/30/2025 1:00 PM EST Office Visit [facility] [place] [facility] [address] [place] [address] [place] [address] Villa Nicolas MD [address] [place] [address] [place] [address] documented as of this encounter Visit Diagnoses Not on filedocumented in this encounter Care Teams Assistant Football Coach Relationship Specialty Start Date End Date Villa Nicolas MD [address] [place] [address] [place] [address] PCP - General Internal Medicine 08/15/22 Villa Nicolas MD [address] [place] [address] [place] [address] PCP - ACO Reach 09/04/22 Montse Celestin, KYLE [address] [place] [address] [place] [address] Registered Nurse Family Medicine 04/06/23 Barbara Mccann NP [address] [place] [address] [place] [address] Nurse Practitioner Neurology 06/17/24 documented as of this encounter
--- OUTSIDE RECORDS SUMMARY | 2024-12-29 12:32 | XMS_ITS | Encounter Summary ---
Author Organization [facility] Address [address] [place] [address] Care Team Providers Care Ssrs Developer Name Role Phone Villa Nicolas MD Primary Care Provider [phone] Villa Nicolas MD Unavailable [phone] Montse Celestin RN Unavailable [phone] Barbara Mccann NP Unavailable Unavailable Encounter Details Date Type Department Care Team ([facility] Contact Info) Description 11/05/2024 Abstract [facility] [place] [facility] [address] [facility] [address] [place] [address] Villa Nicolas MD [address] [facility] [address] [place] [address] Social History Tobacco Use Types Packs/Day Years [...] Upcoming Encounters Date Type Department Care Team ([facility] Contact Info) Description 01/01/2025 1:30 PM EDT Office Visit [facility] [address] [place] [address] [place] [address] Fortunato Moreno, YUE 3006 [facility] 5 [place] [address] 03/30/2025 1:00 PM EST Office Visit [facility] [place] [facility] [address] [place] [address] [place] [address] Villa Nicolas MD [address] [place] [address] [place] [address] documented as of this encounter Visit Diagnoses Not on filedocumented in this encounter Care Teams Ssrs Developer Relationship Specialty Start Date End Date Villa Nicolas MD [address] [place] [address] [place] [address] PCP - General Internal Medicine 08/15/22 Villa Nicolas MD [address] [place] [address] [place] [address] PCP - ACO Reach 09/04/22 Montse Celestin, KYLE [address] [place] [address] [place] [address] Registered Nurse Family Medicine 04/06/23 Barbara Mccann NP [address] [place] [address] [place] [address] Nurse Practitioner Neurology 06/17/24 documented as of this encounter
--- OUTSIDE RECORDS SUMMARY | 2024-12-29 12:32 | XMS_ITS | Encounter Summary ---
Author Organization [facility] Address [address] [place] [address] Care Team Providers Care Patient Information Coordinator Name Role Phone Villa Nicolas MD Primary Care Provider [phone] Villa Nicolas MD Unavailable [phone] Montse Celestin RN Unavailable [phone] Barbara Mccann NP Unavailable Unavailable Encounter Details Date Type Department Care Team (Late st Contact Info) Description 12/29/2024 Refill [facility] [place] [facility] [address] [facility] [address] [place] [phone] Villa Nicolas MD [address] [facility] 110 [place] [address] Fibromyalgia; Cellulitis of left foot Social History Tobacco Use Types Packs/Day Years [...] encounter Miscellaneous Notes * Telephone Encounter - Dacia Schaeffer MA - 12/29/2024 10:44 AM EDT Why is she requesting the clindamycin? * Telephone Encounter - Shabnam Hawley - 12/29/2024 10:30 AM EDT Clint called requesting refills on Mirna's tiZANidine (Zanaflex) 4 MG and asked if she could get 60 days instead of 30? She also asking for a refill on Clindamycin HCL 300 mg. I did not find that in her meds list? [facility] to [facility] [place] documented in this encounter Plan of Treatment Upcoming Encounters Date Type Department Care Team (Late st Contact Info) Description 01/01/2025 1:30 PM EDT Office Visit [facility] [address] [facility] [address] [place] [address] Fortunato Moreno, DPM 3006 [facility] [address] [place] [address] 03/30/2025 1:00 PM EST Office Visit [facility] [place] [facility] [address] [facility] [address] [place] [address] Villa Nicolas MD [address] [facility] [address] [place] [address] documented as of this encounter Visit Diagnoses Diagnosis Fibromyalgia Unspecified myalgia and myositis Cellulitis of left foot 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)- Primary PVD (peripheral vascular disease) Unspecified peripheral vascular disease Foot ulcer, left, with fat layer exposed (HCC) Left foot drop Other acquired deformity of ankle and foot documented in this encounter Care Teams Patient Information Coordinator Relationship Specialty Start Date End Date Villa Nicolas MD [address] [facility] [address] [place] [address] PCP - General Internal Medicine 08/15/22 Villa Nicolas MD [address] [facility] [address] [place] [address] PCP - ACO Reach 09/04/22 Montse Celestin, KYLE [address] [place] [address] Registered Nurse Family Medicine 04/06/23 Barbara Mccann NP [address] [place] [address] Nurse Practitioner Neurology 06/17/24 documented as of this encounter
--- OUTSIDE RECORDS SUMMARY | 2024-12-29 12:32 | XMS_ITS | Encounter Summary ---
Author Organization [facility] Address [address] [place] [address] Care Team Providers Care Health Services Manager Name Role Phone Villa Nicolas MD Primary Care Provider [phone] Villa Nicolas MD Unavailable [phone] Montse Celestin RN Unavailable [phone] Barbara Mccann NP Unavailable Unavailable Encounter Details Date Type Department Care Team (Late Contact Info) Description 11/03/2024 Orders Only [facility] [address] [place] [address] [place] [address] Fortunato Moreno DPM [address] [address] PVD (peripheral vascular disease) Social History Tobacco Use Types Packs/Day Years [...] [facility] [address] [place] [address] [place] [address] Fortunato Moreno DPM [address] [place] [address] 03/30/2025 1:00 PM EST Office [facility] [place] [facility] [address] [facility] [address] [place] [address] Villa Nicolas MD 112 [facility] [address] [place] [address] documented as of this encounter Visit Diagnoses Diagnosis PVD (peripheral vascular disease) Unspecified peripheral vascular disease 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)- Primary PVD (peripheral vascular disease) Unspecified peripheral vascular disease Foot ulcer, left, with fat layer exposed (HCC) Left foot drop Other acquired deformity of ankle and foot documented in this encounter Care Teams Health Services Manager Relationship Specialty Start Date End Date Villa Nicolas MD 112 [facility] [address] [place] [address] PCP - General Internal Medicine 08/15/22 Villa Nicolas MD [address] [place] [facility] [address] [place] [address] PCP - ACO Reach 09/04/22 Montse Celestin, KYLE [address] [facility] [address] [place] [address] Registered Nurse Family Medicine 04/06/23 Barbara Mccann NP [address] [facility] [address] [place] [address] Nurse Practitioner Neurology 06/17/24 documented as of this encounter
--- OUTSIDE RECORDS SUMMARY | 2024-12-29 12:32 | XMS_ITS | Encounter Summary ---
Author Organization [facility] Address [address] [place] [facility] [place] [address] Care Team Providers Care Gear Finisher Name Role Phone Villa Nicolas MD Primary Care Provider [phone] Villa Nicolas MD Unavailable [phone] Montse Celestin RN Unavailable [phone] Barbara Mccann NP Unavailable Unavailable Reason for Visit * Reason Onset Date Comments Med Refill 12/16/2024 Encounter Details Date Type Department Care Team (Late st Contact Info) Description 12/16/2024 [facility] [place] [facility] [address] [facility] [address] [place] [address] Villa Nicolas MD [address] [facility] 110 [place], [place] [id number] Med Refill Social History Tobacco Use Types Packs/Day Years [...] encounter Miscellaneous Notes * Telephone Encounter - Julissa Rico - 12/16/2024 2:21 PM EDT varenicline (Chantix) 1 MG tablet [facility] in [place] documented in this encounter Plan of Treatment Upcoming Encounters Date Type Department Care Team (Late st Contact Info) Description 01/01/2025 1:30 PM EDT Office Visit [facility] [address] [place] [address] [place] [address] Fortunato Moreno, DPKaren 3006 [facility] [address] [address] [place] [address] 03/30/2025 1:00 PM EST Office Visit [facility] [place] [facility] [address] [place] [address] [place] [address] Villa Nicolas MD [address] [place] [address] [place] [address] documented as of this encounter Visit Diagnoses Diagnosis Tobacco abuse Tobacco use disorder 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)- Primary PVD (peripheral vascular disease) Unspecified peripheral vascular disease Foot ulcer, left, with fat layer exposed (HCC) Left foot drop Other acquired deformity of ankle and foot documented in this encounter Care Teams Gear Finisher Relationship Specialty Start Date End Date Villa Nicolas MD [address] [place] [address] [place] [address] PCP - General Internal Medicine 08/15/22 Villa Nicolas MD [address] [place] [address] [place] [address] PCP - ACO Reach 09/04/22 Montse Celestin, KYLE [address] [place] [address] [place] [address] Registered Nurse Family Medicine 04/06/23 Barbara Mccann NP [address] [place] [address] [place] [address] Nurse Practitioner Neurology 06/17/24 documented as of this encounter
--- OUTSIDE RECORDS SUMMARY | 2024-12-29 12:32 | XMS_ITS | Encounter Summary ---
Author Organization [facility] Address [address] [place] [address] Care Team Providers Care Body Press Operator Name Role Phone Villa Nicolas MD Primary Care Provider [phone] Villa Nicolas MD Unavailable [phone] Montse Celestin RN Unavailable [phone] Barbara Mccann NP Unavailable Unavailable Encounter Details Date Type Department Care Team (Late Contact Info) Description 11/04/2024 Orders Only [facility] [place] [facility] [address] [place] [address] [place] [phone] Makenzie Sneed LPN [address] [place] [address] Ischemia of left lower extremity Social History Tobacco Use Types Packs/Day Years [...] Visit [facility] [address] [place] [address] [place] [phone] Fortunato Moreno, YUE [address] [facility] 5 [place] [address] 03/30/2025 1:00 PM EST [facility] [place] [facility] [address] [facility] 110 [place] [address] Villa Nicolas MD [address] [facility] 110 [place] [address] documented as of this encounter Visit Diagnoses Diagnosis Ischemia of left lower extremity 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)- Primary PVD (peripheral vascular disease) Unspecified peripheral vascular disease Foot ulcer, left, with fat layer exposed (HCC) Left foot drop Other acquired deformity of ankle and foot documented in this encounter Care Teams Body Press Operator Relationship Specialty Start Date End Date Villa Nicolas MD [address] [facility] 110 [place] [address] PCP - General Internal Medicine 08/15/22 Villa Nicolas MD [address] [facility] 110 [place] [address] PCP - ACO Reach 09/04/22 Montse Celestin, KYLE [address] [facility] [address] [place], [place] [address] Registered Nurse Family Medicine 04/06/23 Barbara Mccann NP [address] [facility] [address] [place] [address] Nurse Practitioner Neurology 06/17/24 documented as of this encounter
--- OUTSIDE RECORDS SUMMARY | 2024-12-29 12:32 | XMS_ITS | Encounter Summary ---
Author Organization [facility] Address [address] [place] [address] Care Team Providers Care Smoking Tobacco Packing Machine Hand Name Role Phone Villa Nicolas MD Primary Care Provider [phone] Villa Nicolas MD Unavailable [phone] Montse Celestin RN Unavailable [phone] Barbara Mccann NP Unavailable Unavailable Encounter Details Date Type Department Care Team ([facility] Contact Info) Description 11/17/2024 Abstract [facility] [place] [facility] [address] [facility] 110 [place] [address] Villa Nicolas MD [address] [facility] 110 [place] [address] Social History Tobacco Use Types Packs/Day Years [...] [facility] [address] [place] [address] [place] [address] Fortunato Moreno, YUE 3006 [facility] 5 [place] [address] 03/30/2025 1:00 PM EST Office Visit [facility] [place] [facility] [address] [place] [address] [place] [address] Villa Nicolas MD [address] [place] [address] [place] [address] documented as of this encounter Visit Diagnoses Not on filedocumented in this encounter Care Teams Smoking Tobacco Packing Machine Hand Relationship Specialty Start Date End Date Villa Nicolas MD [address] [place] [address] [place] [address] PCP - General Internal Medicine 08/15/22 Villa Nicolas MD [address] [place] [address] [place] [address] PCP - ACO Reach 09/04/22 Montse Celestin, KYLE [address] [place] [address] [place] [address] Registered Nurse Family Medicine 04/06/23 Barbara Mccann NP [address] [place] [address] Nurse Practitioner Neurology 06/17/24 documented as of this encounter
--- OUTSIDE RECORDS SUMMARY | 2024-12-29 12:32 | XMS_ITS | Clinical Summary ---
Author Organization [facility] Address [address] [place] [address] Care Team Providers Care Dyno Technician Name Role Phone Fidencio LEWIS MD, Villa Allen Primary Care Provider [phone] Allergies Active Allergy Reactions Criticality Noted Date Comments Duloxetine Hives 05/20/2020 Medications atorvastatin (LIPITOR) 20 mg tablet Take 20 mg by mouth once daily. 03/10/20 20 Active citalopram (CELEXA) 40 mg tablet Take 40 mg by mouth once daily. 03/04/20 20 Active tiZANidine (ZANAFLEX) 4 mg tablet Take 4 mg by mouth four times daily. 04/02/19 21 Active metFORMIN (GLUCOPHAGE) 1,000 mg tablet Take 1 tablet by mouth daily with dinner. 06/02/19 21 Active Pregabalin (LYRICA) 200 mg capsule Take 1 capsule by mouth twice daily for 90 days. 06/02/19 21 Active primidone (MYSOLINE) 50 mg tablet Take 1 tablet by mouth four times daily. 06/02/19 21 Active rOPINIRole (REQUIP) 0.25 mg tablet Take 1 tablet by mouth four times daily. 06/02/19 21 Active isosorbide mononitrate ER (IMDUR) 30 mg 24 hr tablet Take 1 tablet by mouth once daily. 06/02/19 Active acetaminophen (TYLENOL) 500 mg tablet Take 2 tablets by mouth every 8 hours as needed for Pain. 06/02/19 21 Active carbidopa-levodopa (SINEMET 25-100) 25-100 mg per tablet Take 1 tablet by mouth four times daily. (patient takes one and half tablets QID) 06/02/19 21 Active polyethylene glycol 3350 (MIRALAX, GLYCOLAX) 17 gram packet Take 1 Packet by mouth once daily as needed. 06/02/19 Active ondansetron orally disintegrating (ZOFRAN ODT) 4 mg disintegrating tablet Take 1 tablet by mouth every 6 hours as needed for Nausea/Vomiting. 06/02/19 Active heparin 5,000 unit/mL injection Inject 1 mL subcutaneously every 12 hours. 06/26/19 Active docusate sodium (COLACE) 100 mg capsule Take 1 capsule by mouth twice daily. 06/26/19 Active senna (SENNA) 8.6 mg tab Take 1 tablet by mouth twice daily. 06/26/19 Active lidocaine (LIDODERM) 5 % Apply 2 Patches as directed once daily. Remove patch after 12 hours. Apply across the incision. 06/26/19 Active Active Problems Problem Noted Date Diagnosed Date Parkinson's disease 05/31/2020 Assessment & Plan (06/21/2020 1:08 PM EDT): Assessment: POA PLAN: Continue home Rx/regimen Monitor Assessment & Plan (05/31/2020 12:57 PM EST): Assessment: POA PLAN: Assessment: POA PLAN: Continue home Rx/regimen Monitor HLD (hyperlipidemia) 05/31/2020 Assessment & Plan (06/21/2020 1:08 PM EDT): Assessment: POA PLAN: Continue home Rx/regimen Assessment & Plan (05/31/2020 12:57 PM EST): Assessment: POA PLAN: Continue home Rx/regimen Monitor Diabetes mellitus 05/31/2020 Assessment & Plan (06/21/2020 1:08 PM EDT): Assessment: POA PLAN: SSI ADA Hold home meds for now Monitor Assessment & Plan (05/31/2020 1:02 PM EST): Assessment: POA PLAN: SSI ADA Continue home Rx/regimen Monitor Cervical myelopathy 05/28/2020 Assessment & Plan (06/24/2020 10:01 AM EDT): Assessment: POA PLAN: Pain control continue present analgesic regimen Do not remove dressing Monitor drain output PT/OT Incentive Spirometer 10-15 times every hour instructed No central lines OOB w/ assistance/lift team XR if able DVT ppx: IPCs, SQH 5,000 units q12h POD 2 Urinary Catheter: External cath Discharge:Dsipo planning D/w Dr. Hanson Assessment & Plan (06/23/2020 10:17 AM EDT): Assessment: POA PLAN: Pain control continue present analgesic regimen Incentive Spirometer 10-15 times every hour instructed No central lines OOB w/ assistance /lift team DVT ppx: IPCs, SQH 5,000 units q12h -hold after 2100 today Urinary Catheter: No OR 06/23/20-C3-C6 anterior cervical discectomy and fusion, possible posterior decompression and fusion in addition Discharge: TBD D/w Dr. Hanson Assessment & Plan (06/22/2020 11:11 AM EDT): Assessment: POA PLAN: Pain control continue present analgesic regimen Incentive Spirometer 10-15 times every hour instructed No central lines OOB w/ assistance /lift team DVT ppx: IPCs, SQH 5,000 units q12h -hold after 2099 today Urinary Catheter: No OR 06/23/20-C3-C6 anterior cervical discectomy and fusion, possible posterior decompression and fusion in addition Discharge: TBD D/w Dr. Hanson Assessment & Plan (06/21/2020 1:07 PM EDT): Assessment: POA PLAN: Pain control continue present analgesic regimen Incentive Spirometer 10-15 times every hour instructed No central lines OOB w/ assistance /lift team DVT ppx: IPCs, SQH 5,000 units q12h Urinary Catheter: No Surgical planning pending stress test findings Discharge: TBD D/w Dr. Hanson Assessment & Plan (05/31/2020 12:57 PM EST): Assessment:POA PLAN: Pain control continue present analgesic regimen PT/OT-SNF Incentive Spirometer 10-15 times every hour instructed No central lines OOB w/ assistance DVT ppx: IPCs, SQH 5,000 units q12h Urinary Catheter: No Discharge: No surgical intervention this admisision DC to SNF D/w Dr. Hanson Social History Tobacco Use Types Packs/Day Years Used Date Smoking Tobacco: Former Cigarettes Q uit: 01/25/2020 Smokeless Tobacco: Never Area Deprivation Index Answer Date Jhony rded National Score (1-100), lower number is lower ri sk Not on file 05/20/2020 State Score (1-10), lower number is lower risk N ot on file 05/20/2020 Data from: https://www.neighborhoodatlas.medicine.[facility]/. Last address used for calculation Not on file 05/20/2020 Comments No Sex and Gender Information Value Date Recorded Sex Assigned at Not on file Legal Sex Female 4:19 PM EST Gender Identity Not on file Sexual Orientation Not on file Last Filed Vital Signs Vital Sign Reading Time Taken Comments Blood Pressure 129/53 06/25/2020 11:36 AM EDT Pulse 83 06/25/2020 11:36 AM EDT Temperature 36.8 C (98.2 F) 06/25/2020 9:46 AM EDT Respiratory Rate 12 08/05/2020 9:39 AM EDT Oxygen Saturation 96% 06/25/2020 11:36 AM EDT Inhaled Oxygen Concentration - - Weight 77.1 kg (170 lb) 08/05/2020 9:39 AM EDT Height 160 cm (5' 3 ) 08/05/2020 9:39 AM EDT Body Mass Index 30.11 08/05/2020 9:39 AM EDT Plan of Treatment Health Maintenance Due Date Last Done Comments Anxiety Screening 1968 Depression Screening 1968 Hepatitis C Screening 1968 DTaP,Tdap,Td Vaccine (1 - Tdap) [address] Colonography 12/09/1995 Cologuard (FIT-DNA) 12/09/1995 Colonoscopy 12/09/1995 Colorectal Cancer Screening 12/09/1995 Fecal Occult Blood 12/09/1995 Lipid Screening 12/09/1995 Sigmoidoscopy 12/09/1995 Pneumococcal Vaccine: 50+ (1 of 1 - PCV) 2000 Shingrix Vaccine (1 of 2) 2000 Bone Density Screening 12/09/2015 Diabetes Screening 06/19/2023 06/18/2020, 05/28/2020 Advance Directive Discussion 03/26/2024 Covid-19 Vaccine ( - 2024- season) 2024 Influenza Vaccine (#1) 2024 RSV Vaccine (1 - 1-dose 75+ series) 2025 Medical Devices Implanted Type Area Boom Master Device Identifier Shelf Expiration Date Model / Serial / Lot Graft Infuse 20ga Medium Bovine Collagen [id number] 2x1in Bone Vial Absorbable - [id number] Implanted:Qty: 1 on 06/23/2020 by Leni Ordonez MD at [facility] Bone N/A: Spine - Cervical MEDTRONIC SOFAMOR DANEK 01/24/2021 [id number] / / [id number] Graft Cancellous Chips Bone Void Crushed Freeze Dry 30ml (0.1-4mm) - [id number] Implanted:Qty: 1 on 06/23/2020 by Leni Ordonez MD at [facility] Bone N/A: Spine - Cervical MTF 03/06/2023 [id number] / [id number] / Shaggy [place] Cont [id number] Implanted:Qty: 1 on 06/23/2020 at [facility] Shaggy N/A: Spine - Posterior Cervical [id number] / / 100mm [place] Shaggy Implanted:Qty: 1 on 06/23/2020 at [facility] Shaggy N/A: Spine - Posterior Cervical VERONICA [id number] / / [place] Lateral Offset Connector Side Sz 10mm Implanted:Qty: 1 on 06/23/2020 at [facility] Screw N/A: Spine - Posterior Cervical VERONICA [id number] / / [place] Oct Polyaxial Screw 4.5mm X 28mm Implanted:Qty: 1 on 06/23/2020 at [facility] Screw N/A: Spine - Cervical VERONICA [id number] / / [place] Oct Polyaxial Screw Sz 4mm X 24mm Implanted:Qty: 1 on 06/23/2020 at [facility] Screw N/A: Spine - Cervical VERONICA [id number] / / Screw Bn 3.5mm 12mm [place] Spnl - [id number] Implanted:Qty: 8 on 06/23/2020 at [facility] Screw N/A: Spine - Cervical VERONICA [id number] / / [place] Oct Polyaxial Screw 3.5mm X 10mm Implanted:Qty: 1 on 06/23/2020 at [facility] Screw N/A: Spine - Cervical VERONICA [id number] / / Screw St Spnl Oct [place] Ns Lf - [id number] Implanted:Qty: 13 on 06/23/2020 at [facility] Screw N/A: Spine - Posterior Cervical VERONICA [id number] / / [place] Oct Lateral Offset Connector Open Sz 3.5/4mm X 30mm Implanted:Qty: 1 on 06/23/2020 at [facility] Screw N/A: Spine - Posterior Cervical VERONICA [id number] / / Procedures Procedure Name Priority Date/Time Associated Diagnosis Comments BASIC METABOLIC PANEL STAT 06/18/2020 11:58 PM EDT from Last 3 Months or Most Recently Relevant to Health Maintenance Results * (ABNORMAL) BASIC METABOLIC PNL (06/18/2020 11:58 PM EDT) [facility] Glucose 173(H) 74 - 99 mg/dL 06/19/2020 12:59 AM EDT [facility] Comment: The [place] Diabetes Association (ADA) provides guidance for cutoff values for fasting glucose and random glucose. The ADA defines fasting as no caloric intake for at least 8 hours. Fasting plasma glucose results between 100 to 125 mg/dL indicate increased risk for diabetes (prediabetes). Fasting plasma glucose results greater than or equal to 126 mg/dL meet the criteria for diagnosis of diabetes. In the absence of unequivocal hyperglycemia, results should be confirmed by repeat testing. In a patient with classic symptoms of hyperglycemia or hyperglycemic crisis, random plasma glucose results greater than or equal to 200 mg/dL meet the criteria for diagnosis of diabetes. Reference: Standards of Medical Care in Diabetes 2016, [place] Diabetes Association. Diabetes Care. 2016.39(Suppl 1). BUN 18 7 - 21 mg/dL 06/19/2020 12:59 AM EDT [facility] Creatinine 0.32(L) 0.58 - 0.96 mg/dL 06/19/2020 12:59 AM EDT [facility] Sodium 136 136 - 144 mmol/L 06/19/2020 12:59 AM EDT [facility] Potassium 4.4 3.7 - 5.1 mmol/L 06/19/2020 12:59 AM EDT [facility] Chloride 104 97 - 105 mmol/L 06/19/2020 12:59 AM EDT [facility] CO2 23 22 - 30 mmol/L 06/19/2020 12:59 AM EDT [facility] Anion Gap 9 9 - 18 mmol/L 06/19/2020 12:59 AM EDT [facility] Calcium 9.4 8.5 - 10.2 mg/dL 06/19/2020 12:59 AM EDT [facility] eGFR- >60 06/19/2020 12:59 AM EDT [facility] eGFR-All Other Races >60 . 06/19/2020 12:59 AM T [facility] Comment: eGFR (Estimated GFR) Units of measure: mL/min/1.73 meters squared eGFR is derived from the reexpressed MDRD Study equation using the following parameters: serum creatinine, age, gender and race. The creatinine assay has been calibrated to be traceable to IDMS. An eGFR <60 mL/min/1.73m2 for >3 months is consistent with chronic kidney disease. Refer to KDOQI guidelines for clinical interpretation. In patients with unstable renal function, e.g. those with acute kidney injury, the eGFR may not accurately reflect actual GFR. Blood BLOOD SPECIMEN / Unknown 06/18/2020 11:58 PM EDT 06/18/2020 11:59 PM EDT Baljit Hanson MD LABORATORY Final Result [facility] [address] [place] [address] [facility] [address] [place] [address] from Last 3 Months or Most Recently Relevant to Health Maintenance Insurance MEDICARE MEDICAID [place] Care Teams Dyno Technician Relationship Specialty Start Date End Date Villa Nicolas II, MD [address] [facility] [address] [place] [address] PCP - General Internal Medicine 05/21/20
--- OUTSIDE RECORDS SUMMARY | 2024-12-29 12:32 | XMS_ITS | Encounter Summary ---
Author Organization [facility] Address [address] [place] [address] Care Team Providers Care Bunch Trimmer Mold Name Role Phone Villa Nicolas MD Primary Care Provider [phone] Villa Nicolas MD Unavailable [phone] Montse Celestin RN Unavailable [phone] Barbara Mccann NP Unavailable Unavailable Encounter Details Date Type Department Care Team ([facility] Contact Info) Description 11/04/2024 Abstract [facility] [place] [facility] [address] [facility] [address] [place] [phone] Villa Nicolas MD [address] [facility] [address] [place] [address] Social History Tobacco Use Types Packs/Day Years [...] Upcoming Encounters Date Type Department Care Team ([facility] Contact Info) Description 01/01/2025 1:30 PM EDT Office Visit [facility] [address] [place] [address] [place] [phone] Fortunato Moreno, YUE [address] [facility] [address] [place] [address] 03/30/2025 1:00 PM EST Office Visit [facility] [place] [facility] [address] [place] [address] [place] [phone] Villa Nicolas MD [address] [place] [address] [place] [address] documented as of this encounter Visit Diagnoses Not on filedocumented in this encounter Care Teams Bunch Trimmer Mold Relationship Specialty Start Date End Date Villa Nicolas MD [address] [place] [address] [place] [address] PCP - General Internal Medicine 08/15/22 Villa Nicolas MD [address] [place] [address] [place] [address] PCP - ACO Reach 09/04/22 Montse Celestin, KYLE [address] [place] [address] [place] [address] Registered Nurse Family Medicine 04/06/23 Barbara Mccann NP [address] [place] [address] [place] [address] Nurse Practitioner Neurology 06/17/24 documented as of this encounter
--- OUTSIDE RECORDS SUMMARY | 2024-12-29 12:33 | XMS_ITS | Encounter Summary ---
Author Organization [facility] Address [address] [place] [address] Care Team Providers Care Sail Lay Out Worker Name Role Phone Villa Nicolas MD Primary Care Provider [phone] Villa Nicolas MD Unavailable [phone] Montse Celestin RN Unavailable [phone] Barbara Mccann NP Unavailable Unavailable Encounter Details Date Type Department Care Team (Late Contact Info) Description 05/03/2023 Abstract [facility] [place] [facility] [address] [facility] 110 [place] [phone] Villa Nicolas MD 112 [facility] 110 [place], [place] [id number] Social History Tobacco Use Types Packs/Day Years Used Date Smoking Tobacco: Every Day Cigarettes Smokeless Tobacco: Never Alcohol Use Standard Drinks/Week Comments Never 0 (1 standard drink = 0.6 oz pure alcohol) caffeine intake : 2-3 cups per day coffee, soda Comments Unknown Sex and Gender Information Value Date Recorded Sex Assigned at Not on file Legal Sex Female 7:20 PM EDT Gender Identity Not on file Sexual Orientation Not on file documented as of this encounter Plan of Treatment Upcoming Encounters Date Type Department Care Team ([facility] Contact Info) Description 01/01/2025 1:30 PM EDT Office Visit [facility] [address] [facility] [address] [place] [phone] Fortunato Moreno, DPM [address] [facility] [address] [place] [address] 03/30/2025 1:00 PM EST Office [facility] [place] [facility] [address] [facility] [address] [place] [address] Villa Nicolas MD [address] [facility] [address] [place] [address] documented as of this encounter Visit Diagnoses Not on filedocumented in this encounter Care Teams Sail Lay Out Worker Relationship Specialty Start Date End Date Villa Nicolas MD [address] [facility] [address] [place] [address] PCP - General Internal Medicine 08/15/22 Villa Nicolas MD [address] [facility] [address] [place] [address] PCP - ACO Reach 09/04/22 Montse Celestin RN [address] [facility] [address] [place] [address] Registered Nurse Family Medicine 04/06/23 Barbara Mccann NP [address] [facility] [address] [place] [address] Nurse Practitioner Neurology 06/17/24 documented as of this encounter
--- OUTSIDE RECORDS SUMMARY | 2024-12-29 12:33 | XMS_ITS | Encounter Summary ---
Author Organization [facility] Address [address] [place] [address] Care Team Providers Care Cloth Dyeing Range Tender Name Role Phone Villa Nicolas MD Primary Care Provider [phone] Villa Nicolas MD Unavailable [phone] Montse Celestin RN Unavailable [phone] Barbara Mccann NP Unavailable Unavailable Encounter Details Date Type Department Care Team (Late Contact Info) Description 04/18/2023 Abstract [facility] [place] [facility] 112 [facility] 110 [place] [phone] Villa Nicolas MD 112 [facility] 110 [place], [place] [id number] Social History Tobacco Use Types Packs/Day Years [...] Upcoming Encounters Date Type Department Care Team ([facility] Contact Info) Description 01/01/2025 1:30 PM EDT Office Visit [facility] 112 [facility] [address] [place] [phone] Fortunato Moreno, DPM [address] [facility] 5 [place] [address] 03/30/2025 1:00 PM EST [facility] [place] [facility] [address] [email or web address] [address] [place] [address] Villa Nicolas MD [address] [facility] [address] [place] [address] documented as of this encounter Visit Diagnoses Not on filedocumented in this encounter Care Teams Cloth Dyeing Range Tender Relationship Specialty Start Date End Date Villa Nicolas MD [address] [facility] [address] [place] [address] PCP - General Internal Medicine 08/15/22 Villa Nicolas MD [address] [facility] [address] [place] [address] PCP - ACO Reach 09/04/22 Montse Celestin RN [address] [facility] [address] [place] [address] Registered Nurse Family Medicine 04/06/23 Barbara Mccann NP [address] [facility] [address] [place] [address] Nurse Practitioner Neurology 06/17/24 documented as of this encounter
--- OUTSIDE RECORDS SUMMARY | 2024-12-29 12:33 | XMS_ITS | Clinical Summary ---
Author Organization [facility] Address [address] [place] [address] Care Team Providers Care Manager Internship Name Role Phone Villa Nicolas MD Primary Care Provider [phone] Villa Nicolas MD Unavailable [phone] Montse Celestin RN Unavailable [phone] Barbara Mccann NP Unavailable Unavailable Allergies Active Allergy Reactions Criticality Noted Date Comments Amoxicillin-Pot Clavulanate Angioedema High 05/31/19 23 Duloxetine Hives 05/20/2020 Mixed Ragweed 10/26/2022 Penicillin G Unknown 08/10/2022 Medications lisinopril 5 MG tablet Take 5 mg by mouth in the morning. Active nitroglycerin (Nitrostat) 0.[address] 0.4 mg under the tongue every 5 (five) minutes if needed. 2 Active nystatin (Mycostatin) 554456 UNIT/GM powder every 12 (twelve) hours. Active cyanocobalamin (Vitamin B-12) 1000 MCG tablet Take 1,000 mcg by mouth Daily 3 Active aspirin 81 MG EC tabletIndications: PAD (peripheral artery disease) Take 1 tablet (81 mg) by mouth in the morning. 100 tablet 3 3 Active atorvastatin (Lipitor) 40 MG tabletIndications: Mixed hyperlipidemia TAKE 1 TABLET BY MOUTH IN THE MORNING 100 tablet 3 4 Active clopidogrel (Plavix) 75 MG tabletIndications: Coronary artery disease, unspecified vessel or lesion type, unspecified whether angina present, unspecified whether [place] or transplanted heart TAKE 1 TABLET BY MOUTH ONCE DAILY 30 tablet 10 4 Active metoprolol succinate XL (Toprol-XL) 25 MG 24 hr tablet Take 25 mg by mouth in the morning. 4 Active carbidopa-levodopa (Sinemet) 25-100 MG tabletIndications: Parkinson's disease, unspecified whether dyskinesia present, unspecified whether manifestations fluctuate (HCC) Take 1.5 tablets by mouth in the morning and 1.5 tablets at noon and 1.5 tablets in the evening and 1.5 tablets before bedtime. 180 tablet 2 4 Active Farxiga 10 MG Take 10 mg by mouth Daily Active primidone (Mysoline) 250 MG tabletIndications: Other generalized epilepsy and epileptic syndromes, not intractable, without status epilepticus (HCC) TAKE 1 TABLET BY MOUTH AT BEDTIME 90 tablet 1 5 Active oxybutynin XL (Ditropan-XL) 10 MG 24 hr tabletIndications: Mixed stress and urge urinary incontinence TAKE 1 TABLET BY MOUTH EVERY MORNING 100 tablet 3 5 Active amantadine (Symmetrel) 100 MG tabletIndications: Parkinson's plus syndrome (HCC) Take 1 tablet (100 mg) by mouth Daily 30 tablet 1 5 Active tiZANidine (Zanaflex) 4 MG tabletIndications: Fibromyalgia TAKE 1 TABLET BY MOUTH EVERY 6 HOURS IF NEEDED FOR MUSCLE SPASMS 30 tablet 10 5 Active isosorbide mononitrate ER (Imdur) 30 MG 24 hr tablet Take 30 mg by mouth Daily 4 Active Vortioxetine HBr (Trintellix) 10 MG tabletIndications: Moderate episode of recurrent major depressive disorder (HCC) Take 10 mg by mouth Daily 30 tablet 11 5 Active pregabalin (Lyrica) 150 MG capsuleIndications :Pain,Lumbar radiculopathy,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 90 capsule 3 5 Active dipyridamole (Persantine) 50 MG tabletIndications: PAD (peripheral artery disease) Take 1 tablet (50 mg) by mouth in the morning and 1 tablet (50 mg) at noon and 1 tablet (50 mg) in the evening and 1 tablet (50 mg) before bedtime. 120 tablet 11 5 10/15/19 26 Active metFORMIN XR (Glucophage-XR) 750 MG 24 hr tabletIndications: Type II diabetes mellitus with manifestations (HCC) Take 1 tablet (750 mg) by mouth Daily Take with evening meal 90 tablet 3 5 Active HYDROcodone-acetam inophen ([place]) 10-325 MG tabletIndications: Intervertebral disc disorder of lumbar region with myelopathy Take 1 tablet by mouth every 6 (six) hours if needed for severe pain 120 tablet 5 01/08/20 25 Active varenicline (Chantix) 1 MG tabletIndications: Tobacco abuse Take 1 tablet (1 mg) by mouth in the morning and 1 tablet (1 mg) before bedtime. Take with full glass of water. 60 tablet 5 5 06/15/19 26 Active varenicline (Chantix) 1 MG tabletIndications: Tobacco abuse Take 1 tablet (1 mg) by mouth in the morning and 1 tablet (1 mg) before bedtime. Take with full glass of water.. 60 tablet 5 5 12/17/19 25 Discontin ued(Reord er) HYDROcodone-acetam inophen ([place]) 10-325 MG tabletIndications: Intervertebral disc disorder of lumbar region with myelopathy Take 1 tablet by mouth every 6 (six) hours if needed for severe pain 120 tablet 5 12/09/19 25 Discontin ued(Reord er) Active Problems Problem Noted Date Diagnosed Date HFrEF (heart failure with reduced ejection fract ion) 09/05/2023 COPD, severe 06/27/2023 Controlled type 2 diabetes m candida with complication, without long-term current use of insulin 12/14/2022 History of heart attack 10/31/2022 HTN (hypertension) 10/31/2022 Nonrheumatic aortic valve stenosis 10/31/2022 Overview (04/23/2023): Last Assessment & Plan: No acute symptoms- will monitor with serial echocardiograms Abnormal gait 08/10/2022 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 08/10/2022 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 08/10/2022 Carotid stenosis, bilateral 08/10/2022 Carpal tunnel syndrome, left 08/10/2022 Coronary artery disease 08/10/2022 Critical ischemia of lower extremity 08/10/2022 Decreased estrogen level 08/10/2022 Degeneration of lumbar intervertebral disc 08/10 Diabetic mononeuropathy 08/10/2022 Difficulty walking 08/10/2022 Fibromyalgia 08/10/2022 General weakness 08/10/2022 Hyperlipidemia 08/10/2022 Lack of coordination 08/10/2022 Mixed anxiety depressive disorder 08/10/2022 Mixed conductive and sensori neural hearing loss, unilateral, right ear with restricted hearing on the contralateral side 08/10/2022 Mixed stress and urge urinary incontinence 08/10 Multiple system atrophy 08/10/2022 Muscle weakness 08/10/2022 PAD (peripheral artery disease) 08/10/2022 Polyneuropathy 08/10/2022 Polyneuropathy due to type 2 diabetes mellitus 0 08/10/2022 Seasonal allergic rhinitis 08/10/2022 Solitary pulmonary nodule 08/10/2022 Status post coronary artery bypass graft 023 Parkinson's disease 08/10/2022 Tinnitus 08/10/2022 Undifferentiated inflammatory polyarthritis 07/24 Cervical myelopathy 05/28/2020 Overview (04/23/2023): Last Assessment & Plan: Assessment: POA PLAN: Pain control continue present analgesic regimen Do not remove dressing Monitor drain output PT/OT Incentive Spirometer 10-15 times every hour instructed No central lines OOB w/ assistance/lift team XR if able DVT ppx: IPCs, SQH 5,000 units q12h POD 2 Urinary Catheter: External cath Discharge:Dsipo planning D/w Dr. Hanson Last Assessment & Plan: Assessment: POA PLAN: Pain control continue present analgesic regimen Do not remove dressing Monitor drain output PT/OT Incentive Spirometer 10-15 times every hour instructed No central lines OOB w/ assistance/lift team XR if able DVT ppx: IPCs, SQH 5,000 units q12h POD 2 Urinary Catheter: External cath Discharge:Dsipo planning D/w Dr. Hanson Tobacco user 07/13/2015 Acute on chronic diastolic CHF (congestive heart failure) 03/11/2015 Overview (04/23/2023): Last Assessment & Plan: [facility]- II-III currently appears euvolemic- pt denied any concering symptoms Continue GDMT- Currently euvolemic without exacerbation, no Diuretic therapy needed at this time. She has actually lost weight since DC home. Monitor daily weights, I&O, fluid restriction 1.5-2L/day, renal function and electrolytes Congenital spondylolisthesis 09/30/2013 Neurogenic claudication 09/30/2013 Spinal stenosis of lumbar region 09/30/2013 Primary cardiomyopathy 03/08/2012 Overview (04/23/2023): Last Assessment & Plan: stable Palpitations 08/16/2011 Intervertebral disc disorder of lumbar region with myelopathy 11/19/2008 Migraine with aura 05/21/2008 Esophageal reflux 05/08/2008 Persistent insomnia 05/08/2008 Primary osteoarthritis 05/08/2008 Resolved Problems Problem Noted Date Diagnosed Date Resolved Date Elevated troponin 04/03/2023 06/27/2023 Multifocal pneumonia 04/03/2023 024 H/O Parkinson's disease 10/31/2022 04/0 05/2023 Acute exacerbation of chroni c obstructive airways disease 08/10/2022 06/27/2023 Chronic systolic heart failure 08/10/2022 04/23/2023 Cigarette smoker two packs a day or less 08/10/2022 06/27/2023 Hearing loss of right ear 08/10/2022 Preoperative evaluation to r ule out surgical contraindication 08/04/2013 06/27/2023 Encounters Date Type Department Care Team Description 12/29/2024 Refill [facility] [address] [place] [address] Villa Nicolas MD Fibromyalgia; Cellulitis of left foot 12/18/2024 3:50 PM EDT Office Visit [facility] [address] [place] [address] Fortunato Moreno DPM Polyneuropathy due to type 2 diabetes mellitus ([facility]) (Primary Dx); PVD (peripheral vascular disease); Foot ulcer, left, with fat layer exposed (HCC) 12/18/2024 Bamboo flowsheet [facility] [address] [place] [address] Fortunato Moreno DPM 12/18/2024 Travel 12/16/2024 [facility]phone [facility] [address] [place] [address] Villa Nicolas MD Med Refill 12/16/2024 Patient Outreach [facility] [address] [place] [address] Montse Celestin RN 12/09/2024 Abstract [facility] [address] [facility] [address] [place] [address] Villa Nicolas MD 2024 2:15 PM EDT Office [facility] [address] [place] [address] Villa Nicolas MD Routine general medical examination at health care facility (Primary Dx); ACP (advance care planning); HFrEF (heart failure with reduced ejection fraction) ([facility]); Dependent on wheelchair; Intervertebral disc disorder of lumbar region with myelopathy; Controlled type 2 diabetes mellitus with complication, without long-term current use of insulin ([facility]); Coronary artery disease involving [place] coronary artery of [place] heart without angina pectoris ; Mixed hyperlipidemia 2024 Bamboo flowsheet [facility] [address] [place] [address] Villa Nicolas MD 2024 Travel 11/26/2024 Abstract [facility] [address] [place] [address] Fortunato Moreno DPM 11/20/2024 2:20 PM EDT Office Visit [facility] [address] [place] [address] Fortunato Moreno DPM 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) (Primary Dx); Foot ulcer, left, with fat layer exposed (HCC); PVD (peripheral vascular disease) 11/20/2024 Bamboo flowsheet [facility] [address] [place] [address] Fortunato Moreno DPM 11/20/2024 Travel 11/18/2024 Refill [facility] [address] [place] [address] Villa Nicolas MD Intervertebral disc disorder of lumbar region with myelopathy 11/17/2024 Abstract [facility] [address] [facility] [address] [place] [address] Villa Nicolas MD 11/14/2024 Refill [facility] [address] [place] [address] Villa Nicolas MD Type II diabetes mellitus with manifestations (HCC) 11/14/2024 Patient Outreach [facility] [address] [place] [address] Montse Celestin RN 11/11/2024 Abstract [facility] [address] [facility] [address] [place] [address] Villa Nicolas MD 11/06/2024 1:30 PM EDT Office Visit [facility] [address] [place] [address] Fortunato Moreno DPM Cellulitis of left foot (Primary Dx); Foot ulcer, left, with fat layer exposed (HCC); 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); Left foot drop; PVD (peripheral vascular disease) 11/06/2024 Bamboo flowsheet [facility] [address] [place] [address] Fortunato Moreno DPM 11/06/2024 Travel 11/05/2024 Abstract [facility] [facility] [address] [place] [address] Villa Nicolas MD 11/04/2024 Abstract [facility] [facility] [address] [facility] [address] [place] [address] Villa Nicolas MD 11/04/2024 Orders Only [facility] [address] [facility] [address] [place] [address] Makenzie Sneed LPN Ischemia of left lower extremity 11/03/2024 Orders Only [facility] [address] [facility] [address] [place] [address] Fortunato Moreno DPM PVD (peripheral vascular disease) 11/03/2024 Abstract [facility] [facility] [address] [facility] [address] [place] [address] Villa Nicolas MD 10/30/2024 3:20 PM EDT Office Visit [facility] [address] [facility] [address] [place] [address] Fortunato Moreno DPM Cellulitis of left foot (Primary Dx); 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); Foot ulcer, left, with fat layer exposed (HCC); PVD (peripheral vascular disease); Left foot drop 10/30/2024 Travel 10/29/2024 Clinisync Result Encounter [facility] External Department Unsolicited Provider, Generic External Data 10/23/2024 1:30 PM EDT Office Visit [facility] [address] [facility] [address] [place] [address] Fortunato Moreno DPM Cellulitis of left foot (Primary Dx); 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); Foot ulcer, left, with fat layer exposed (HCC); PVD (peripheral vascular disease); Left foot drop 10/23/2024 1:15 PM EDT Ancillary Procedure [facility] [address] [place] [address] 10/23/2024 Bamboo flowsheet [facility] [address] [place] [address] Fortunato Moreno, YUE 10/23/2024 Travel 10/20/2024 Patient Outreach [facility] [place] [address] [place] [address] Montse Celestin RN 10/16/2024 1:50 PM EDT Office Visit [facility] [address] [facility] [address] [place] [address] Fortunato Moreno DPM Cellulitis of left foot (Primary Dx); 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); Foot ulcer, left, with fat layer exposed (HCC); PVD (peripheral vascular disease); Left foot drop 10/16/2024 Bamboo flowsheet [facility] [address] [facility] [address] [place] [address] Fortunato Moreno DPM 10/16/2024 Travel 10/14/2024 Refill [facility] [place] [facility] [address] [place] [address] Villa Nicolas MD Intervertebral disc disorder of lumbar region with myelopathy 10/14/2024 Telephone [facility] [facility] [address] [facility] [address] [place] [address] Villa Nicolas MD Med Refill 10/13/2024 Abstract [facility] [facility] [address] [place] [address] Villa Nicolas MD 10/09/2024 1:20 PM EDT Office Visit [facility] [address] [place] [address] Fortunato Moreno DPM Cellulitis of left foot (Primary Dx); 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); Foot ulcer, left, with fat layer exposed (HCC); PVD (peripheral vascular disease); Left foot drop 10/09/2024 Bamboo flowsheet [facility] [address] [place] [address] Fortunato Moreno DPM 10/09/2024 Travel from Last 3 Months Immunizations Immunization Administration Dates Next Due Influenza, High Dose Seasona l, Preservative Free 02/02/2022,02/23/2021 Influenza, High-dose Seasona l, Quadrivalent, Preservative Free 03/31/2024,12/03/2019,12/20/2017 Influenza, seasonal, injectable 01/26/2014 Influenza, seasonal, intrade rmal, preservative free 12/24/2014,02/28/2013 PPD Test 03/04/2020,02/26/2020 Pneumococcal Conjugate PCV 13 03/11/2020, 018 Pneumococcal Polysaccharide PPSV23 02/23/2014, SARS-CoV-2, Unspecified 01/27/2022 Zoster, Recombinant 11/19/2019 Family History Medical History Relation Name Comments Heart disease Father Heart disease Mother Hypertension Mother Cancer Sibling Relation Name Status Comments Father Mother Alive Sibling Social History Tobacco Use Types Packs/Day Years [...] Sign Reading Time Taken Comments Blood Pressure 122/70 2024 2:21 PM EDT Pulse 56 2024 2:21 PM EDT Temperature 37.1 C (98.8 F) 09/05/2023 1:10 PM EDT Respiratory Rate 18 12/18/2024 3:16 PM EDT Oxygen Saturation 96% 2024 2:21 PM EDT Inhaled Oxygen Concentration - - Weight 52.6 kg (116 lb) 12/18/2024 3:16 PM EDT Height 157.5 cm (5' 2 ) 12/18/2024 3:16 PM EDT Body Mass Index 21.22 12/18/2024 3:16 PM EDT Plan of Treatment Upcoming Encounters Date Type Department Care Team (Late st Contact Info) Description 01/01/2025 1:30 PM EDT Office Visit [facility] [address] [facility] [address] [place] [address] Fortunato Moreno, DPM [address] [facility] [place] [place] [address] [place] [address] 03/30/2025 1:00 PM EST Office Visit [facility] [facility] [address] [facility] [address] [place] [address] Villa Nicolas MD [address] [facility] [address] [place] [address] Health Maintenance Due Date Last Done Comments CT Colonography 1950 Colonoscopy 1950 FIT 1950 FOBT 1950 Sigmoidoscopy 1950 Diabetes: Urine Protein Screening 06/27/2019 019 FIT-DNA 12/09/2022 12/10/2019 Influenza Vaccine (#1) 2024 5, 02/02/2022, 02/23/2021, Additional history exists Diabetes: Hemoglobin A1C 03/09/2025 025, 06/30/2024, 03/31/2024, Additional history exists Pneumococcal Vaccine: 65+ Years Discontinued 03/11/2020, 08/30/2017, 02/23/2014, Additional history exists Diabetes: Retinopathy Screening Discontinued Colorectal Cancer Screening Discontinued Mammogram Discontinued Procedures Procedure Name Priority Date/Time Associated Diagnosis Comments POCT GLYCATED HEMOGLOBIN, TOTAL Routine 2024 3:02 PM EDT Controlled type 2 diabetes mellitus with complication, without long-term current use of insulin (HCC) VASC US LOWER EXTREMITY ARTERIAL DOPPLER COMPLETE High Priority 11/03/2024 2:26 PM EDT PVD (peripheral vascular disease) SEGMENTAL BLOOD PRESSURE 10/29/2024 2:07 PM EDT XR FOOT 3+ VIEWS LEFT Routine 10/23/2024 1:13 PM EDT Foot ulcer, left, with fat layer exposed (HCC) COLOR FUNDUS PHOTOGRAPHY - OU - BOTH EYES Routine 05/25/2020 12:00 PM EST LAB COLOGUARD COLON CANCER SCREEN Routine 12/10/2019 MICROALBUMIN / CREATININE URINE RATIO Routine 06/26/2018 from Last 3 Months or Most Recently Relevant to Health Maintenance Results * POCT Glycated hemoglobin, total (2024 3:02 PM EDT) Hemoglobin A1C 5.9 Blood 2024 3:02 PM EDT Villa Nicolas MD POINT OF CARE TEST ENTER/EDIT ORDERABLES Final Result * Vascular US lower extremity arterial Doppler complete (11/03/2024 2:26 PM EDT) us Fortunato Moreno DPM CV VASCULAR PROCEDURES Cara l Result * SEGMENTAL BLOOD PRESSURE (10/29/2024 2:07 PM EDT) Anatomical Region Laterality Modality Radiographic Peg ging 10/29/2024 2:07 PM EDT Narrative 10/30/2024 9:04 AM EDT [address] [address] Cardiology Report Signed Patient: MIRNA BOBO MR#: [id number] : 1950 Acct:[id number] Age/Sex: 73 / F ADM Date: 10/29/24 Loc: CARD Attending Dr: FORTUNATO MORENO Ordering Physician: FORTUNATO MORENO Date of Service: 10/29/24 Procedure(s): CA segmental UE or LE PAZ Accession Number(s): [id number] cc: VILLA NICOLAS ; FORTUNATO MORENO [facility] Test Date: 2024-10-29 Pat Name: MIRNA BOBO Department: Room: - Gender: Female Wire Charger: Monica Gibson : 1950 Requested By: FORTUNATO MORENO Order Number: [id number] Reading MD: CHARLOTTE KILGORE M.D. Interpretive Statements [...] M.D. Dictated By: CHARLOTTE KILGORE Signed By: 10/30/24 0903 10/30/24 0904 DD/ 1407 TD/TT: Pearl Fisherman: Procedure Note Radiology, Radiologist, MD - 10/30/2024 [place] [address] Cardiology Report Signed Patient: MIRNA BOBO WMR#: [id number] : 1950cct:[id number] Age/Sex: 73 / FADM Date: 10/29/24 Loc: CARD Attending Dr: FORTUNATO MORENO Ordering Physician: FORTUNATO MORENO Date of Service: 10/29/24 Procedure(s): CA segmental UE or LE PAZ Accession Number(s): [id number] cc: VILLA NICOLAS ; FORTUNATO MORENO [facility] Test Date: 2024-10-29 Pat Name: MIRNA BOBO Department: Room: - Gender: Female Wire Charger: Monica Gibson : 1950 Requested By: FORTUNATO MORENO Order Number: [id number] Reading MD: CHARLOTTE KILGORE M.D. Interpretive Statements Summary of the findings: Right leg: LYNN= 0.99; TBI= 0.64. Doppler waveforms demonstrate biphasicflow at the posterior tibial and dorsalis pedis arteries. Left leg: LYNN= 0.81; TBI= 0.64. Doppler waveforms demonstrate monophasicflow at the posterior tibial and dorsalis pedis arteries. Segmental pressures: Segmental pressures suggest significant right femoropopliteal and left infrapopliteal disease. Pulse volume recordings: PVRs at the high thigh, below knee, and anklelevels show normal waveforms. Conclusion: Right and left [...] flow at rest. There is evidence of significantright femoropopliteal and left infrapopliteal disease. Electronically Signed On 10-30-2024 9:03:32 EDT by CHARLOTTE KILGORE M.D. Dictated By: CHARLOTTE KILGORE Signed By:10/30/24 0903 10/30/24 0904 DD/ 1407 TD/TT: Pearl Fisherman: us Generic External Data Provider IMG XR PROCEDURES Final Result * XR foot 3+ views left (10/23/2024 1:13 PM EDT) Anatomical Region Laterality Modality Lower Extremities, Foot Left Radiogra phic Imaging Narrative 10/23/2024 1:23 PM EDT Imaging Result: Degenerative changes to the midfoot and 1st MPJ region of the left foot with negative osteolysis noted to bone in the left 2nd digit and negative gas noted in tissue us Fortunato Moreno DPM IMG XR PROCEDURES Final Res ult * Color Fundus Photography - OU - Both Eyes (05/25/2020 12:00 PM EST) Anatomical Region Laterality Modality Head Fundus Photograp hy 05/25/2020 12:0 0 PM EST Narrative 05/25/2020 12:00 PM EST PERFORMED AT [facility] LOCATION:[id number] [facility] Procedure Note CONVERSION, GENERIC - 08/09/2022 PERFORMED AT [facility] LOCATION:[id number] [facility] Villa Nicolas MD OPHTH PHOTOGRAPHY Final Result * Cologuard?? colon cancer screening (12/10/2019) COLOGUARD RESULT REPORTABLE Cancelled - Order Not Applicable [facility] Comment: This order has because it has exceeded 365 days from the initial order. Please contact the laboratory to reorder this test if clinically indicated. Test Type: Composite algorithmic analysis of stool DNA-biomarkers with hemoglobin immunoassay. Quantitative values of individual biomarkers are not reportable and are not associated with individual biomarker result reference ranges. Precautions and Limitations: Cologuard is intended for colorectal cancer screening of adults of either sex, 45 years or older, who are at average-risk for CRC. Cologuard has been approved for use by the [place]. FDA. Cologuard may produce a false negative or false positive result. A negative Cologuard test result does not guarantee the absence of colorectal cancer (CRC) or advanced adenoma (pre-cancer). Patients with a negative Cologuard test result should be advised to continue participating in a colorectal cancer screening program. The screening interval for Cologuard is currently recommended at an interval of every 3 years by the [place] [employer] and [place]. Multi-Society Task Force. A false positive result occurs when Cologuard produces a positive result, even though a colonoscopy may not find colorectal cancer or precancerous polyps. The performance of Cologuard has been established in a cross sectional study (i.e., single point in time) of average-risk adults aged 50-84. Cologuard performance in patients ages 45 to 49 years was estimated by sub-group analysis of near-age groups. Cologuard performance data in a 10,000 patient pivotal study using colonoscopy as the reference method can be accessed at the following location: [email or web address]. Additional description of the Cologuard test process, warnings and precautions can be found at [email or web address]. Rx only. 12/10/2019 Villa Nicolas MD LAB MOLECULAR DIAGNOSTICS ORDJames TRUONG Final Result Performing Organization Address City/[facility]/ZIP Co de Phone Number [facility] * Microalbumin / creatinine urine ratio (06/26/2018) UCREA 157 28 - 217 [facility] MALB 1.3 [facility] Comment:mALB reference range not established. MICROALB/CREAT RATIO 8.3 [facility] 06/26/2018 Villa Nicolas MD LAB URINE ORDERABLES Final Res ult Performing Organization Address City/[facility]/ZIP Co de Phone Number [facility] from Last 3 Months or Most Recently Relevant to Health Maintenance Insurance MEDICARE MEDICAID [place] Advance Directives Documents on File Type Date Recorded Patient Shove Up Expl anation Power of Technical Training Coordinator 06/04/2024 9:27 AM Healt hcare Power of Technical Training Coordinator Advance Directives and Living Will 06/04/2024 9:24 AM Living Will Declaration Care Teams Manager Internship Relationship Specialty Start Date End Date Villa Nicolas MD [address] [place] [address] [place] [address] PCP - General Internal Medicine 08/15/22 Villa Nicolas MD [address] [place] [address] [place] [address] PCP - ACO Reach 09/04/22 Montse Celestin, KYLE [address] [place] [address] Registered Nurse Family Medicine 04/06/23 Barbara Mccann NP [address] [place] [address] Nurse Practitioner Neurology 06/17/24
--- OUTSIDE RECORDS SUMMARY | 2024-12-29 12:33 | XMS_ITS | Encounter Summary ---
Author Organization [facility] Address [address] [place] [address] Care Team Providers Care Wound Specialist Name Role Phone Villa Nicolas MD Primary Care Provider [phone] Villa Nicolas MD Unavailable [phone] Montse Celestin RN Unavailable [phone] Barbara Mccann NP Unavailable Unavailable Encounter Details Date Type Department Care Team (Late Contact Info) Description 04/10/2023 Abstract [facility] [place] [facility] 112 [facility] 110 [place] [phone] Villa Nicolas MD 112 [facility] [address] [place], [place] [address] Social History Tobacco Use Types Packs/Day Years [...] Upcoming Encounters Date Type Department Care Team ([facility] Contact Info) Description 01/01/2025 1:30 PM EDT Office Visit [facility] 112 [facility] [address] [place] [phone] Fortunato Moreno, DPM 3006 [facility] 5 [place] [address] 03/30/2025 1:00 PM EST [facility] [place] [facility] [address] [facility] [address] [place] [address] Villa Nicolas MD [address] [facility] [address] [place] [address] documented as of this encounter Visit Diagnoses Not on filedocumented in this encounter Care Teams Wound Specialist Relationship Specialty Start Date End Date Villa Nicolas MD [address] [facility] [address] [place] [address] PCP - General Internal Medicine 08/15/22 Villa Nicolas MD [address] [facility] [address] [place] [address] PCP - ACO Reach 09/04/22 Montse Celestin RN [address] [facility] [address] [place] [address] Registered Nurse Family Medicine 04/06/23 Barbara Mccann NP [address] [facility] [address] [place] [address] Nurse Practitioner Neurology 06/17/24 documented as of this encounter
--- OUTSIDE RECORDS SUMMARY | 2024-12-29 12:33 | XMS_ITS | Encounter Summary ---
Author Organization [facility] Address [address] [place] [address] Care Team Providers Care Custody Officer Name Role Phone Villa Nicolas MD Primary Care Provider [phone] Villa Nicolas MD Unavailable [phone] Montse Celestin RN Unavailable [phone] Barbara Mccann NP Unavailable Unavailable Encounter Details Date Type Department Care Team ([facility] Contact Info) Description 09/10/2023 Abstract [facility] [place] [facility] [address] [facility] [address] [place] [address] Villa Nicolas MD [address] [facility] [address] [place] [address] Social History Tobacco Use Types Packs/Day Years Used Date Smoking Tobacco: Every Day Cigarettes Smokeless Tobacco: Never Alcohol Use Standard Drinks/Week Comments Never 0 (1 standard drink = 0.6 oz pure alcohol) caffeine intake : 2-3 cups per day coffee, soda PHQ-2 Answer Date Recorded Patient Health Questionnaire-2 Score 0 06/27/2023 Comments Unknown Sex and Gender Information Value Date Recorded Sex Assigned at Not on file Legal Sex Female 7:20 PM EDT Gender Identity Not on file Sexual Orientation Not on file documented as of this encounter Plan of Treatment Upcoming Encounters Date Type Department Care Team ([facility] Contact Info) Description 01/01/2025 1:30 PM EDT Office Visit [facility] [address] [place] [address] [place] [address] Fortunato Moreno, YUE 3006 [facility] 5 [place] [address] 03/30/2025 1:00 PM EST Office Visit [facility] [place] [facility] [address] [place] [address] [place] [address] Villa Nicolas MD [address] [place] [address] [place] [address] documented as of this encounter Visit Diagnoses Not on filedocumented in this encounter Care Teams Custody Officer Relationship Specialty Start Date End Date Villa Nicolas MD [address] [place] [address] [place] [address] PCP - General Internal Medicine 08/15/22 Villa Nicolas MD [address] [place] [address] [place] [address] PCP - ACO Reach 09/04/22 Montse Celestin, KYLE [address] [place] [address] [place] [address] Registered Nurse Family Medicine 04/06/23 Barbara Mccann NP [address] [place] [address] [place] [address] Nurse Practitioner Neurology 06/17/24 documented as of this encounter
--- OUTSIDE RECORDS SUMMARY | 2024-12-29 12:33 | XMS_ITS | Clinical Summary ---
Author Organization [facility] Address [address] [facility], [address] [place] [address] Care Team Providers Care Sorting Cows Worker Name Role Phone Villa Nicolas MD Primary Care Provider [phone] Allergies Active Allergy Reactions Criticality Noted Date Comments Amoxicillin-Pot Clavulanate Angioedema High 08/31/2009 Duloxetine Hives,Other (See Comments) Low 01/30/2017 Foggy head, shaking Mixed Ragweed Rash,Other (See Comments) Low 10/26/2022 Congestion and localized swelling Oxcarbazepine Other (See Comments) Low 01/30/2017 Foggy head, shaking Medications atorvastatin (LIPITOR) 20 MG tablet Take 1 tablet by mouth daily 03/10/2020 Active HYDROcodone-acet aminophen (NORCO) 10-325 MG per tablet Take 1 tablet by mouth in the morning and 1 tablet at noon and 1 tablet in the evening. 10/11/2022 Active isosorbide mononitrate (IMDUR) 30 MG extended release tablet Take 1 tablet by mouth daily 08/03/2022 Active pregabalin (LYRICA) 200 MG capsule Take 1 capsule by mouth in the morning, at noon, and at bedtime. 04/30/2014 Active nitroGLYCERIN (NITROSTAT) 0.[address] 1 tablet under the tongue every 5 minutes as needed for Chest pain Max dose of 5 tablets 09/04/2011 Active tiZANidine (ZANAFLEX) 4 MG tablet Take 1 tablet by mouth 4 times daily 09/15/2022 Active rOPINIRole (REQUIP) 0.25 MG tablet Take 1 tablet by mouth 4 times daily 09/13/2022 Active METFORMIN HCL ER PO Take 1,000 mg by mouth daily 08/17/2022 Active oxybutynin (DITROPAN-XL) 10 MG extended release tablet Take 1 tablet by mouth every morning 09/13/2022 Active citalopram (CELEXA) 40 MG tablet Take 1 tablet by mouth every morning 10/24/2022 Active Cyanocobalamin (VITAMIN B12 PO) Take 1,000 mcg by mouth daily Active carbidopa-levodo pa (SINEMET) 25-100 MG per tablet Take 1 tablet by mouth 4 times daily 08/31/2022 Active primidone (MYSOLINE) 250 MG tablet Take 1 tablet by mouth nightly at bedtime. 05/03/2023 Active clopidogrel (PLAVIX) 75 MG tablet Take 1 tablet by mouth daily 07/27/2023 Active dapagliflozin (FARXIGA) 10 MG tablet Take 1 tablet by mouth daily 08/01/2023 Active metoprolol tartrate (LOPRESSOR) 25 MG tablet Take 0.5 tablets by mouth 2 times daily 07/31/2023 Active Active Problems Problem Noted Date Diagnosed Date Spinal stenosis of lumbar re gion with neurogenic claudication 07/20/2023 Family History Medical History Relation Name Comments Heart Surgery Father Heart Surgery Mother Relation Name Status Comments Father Alive Mother Social History Tobacco Use Types Packs/Day Years Used Date Smoking Tobacco: Every Day Cigarettes 0.5 1 Smokeless Tobacco: Never Tobacco Cessation:Ready to Q uit: Not Asked; Counseling Given: Not Answered Comments:Started smoking at age 16, quit at the age of 30 then started smoking again a little over a year ago (written 10/26/2022) Alcohol Use Standard Drinks/Week Comments Not Currently 0 (1 standard drink = 0.6 oz pur e alcohol) [facility] Utilities Answer Date Recorded In the past 12 months has e [employer], gas, oil, or water [employer] threatened to shut off services in your home? No 07/20/2023 Hunger Vital Sign Answer Date Recorded Within the past 12 months, y ou worried that your food would run out before you got the money to buy more. Never true 07/20/19 24 Within the past 12 months, t he food you bought just didn't last and you didn't have money to get more. Never true 07/20/2023 PRAPARE - Transportation Answer Date Re corded In the past 12 months, has l ack of transportation kept you from medical appointments or from getting medications? No 06/25 In the past 12 months, has l ack of transportation kept you from meetings, work, or from getting things needed for daily living? No 07/20/2023 Housing Stability Vital Sign Answer Ryan e Recorded In the last 12 months, was t here a time when you were not able to pay the mortgage or rent on time? No 07/20/2023 In the last 12 months, how many places have you lived? 1 07/20/2023 In the last 12 months, was t here a time when you did not have a steady place to sleep or slept in a assisted (including now)? No 07/20/2023 Food Insecurity Answer Date Recorded Within the past 12 months, y ou worried that your food would run out before you got the money to buy more. 1 07/20/2023 Within the past 12 months, t he food you bought just didn't last and you didn't have money to get more. 1 07/20/2023 Interpersonal Safety Domain Source: IP Abuse Scr eening Answer Date Recorded Read-Only, Retired: Physical Abuse Denies 07/20/2023 Read-Only, Retired: Verbal Abuse Denies 07/20/2023 Read-Only, Retired: Emotional abuse Denies 07/20/2023 Read-Only, Retired: Financial Abuse Denies 07/20/2023 Read-Only, Retired: Sexual abuse Denies 07/20/2023 Comments No Sex and Gender Information Value Date Recorded Sex Assigned at Not on file Legal Sex Female 3:19 PM EST Gender Identity Not on file Sexual Orientation Not on file Last Filed Vital Signs Vital Sign Reading Time Taken Comments Blood Pressure 122/80 10/05/2023 11:21 AM EDT Pulse 65 10/05/2023 11:21 AM EDT Temperature 37.2 C (99 F) 07/21/2023 11:34 AM EDT Respiratory Rate 14 10/05/2023 11:21 AM EDT Oxygen Saturation 95% 07/21/2023 11:34 AM EDT Inhaled Oxygen Concentration - - Weight 58.1 kg (128 lb) 10/05/2023 11:21 AM EDT Height 157.5 cm (5' 2 ) 10/05/2023 11:21 AM EDT Body Mass Index 23.41 10/05/2023 11:21 AM EDT Plan of Treatment Health Maintenance Due Date Last Done Comments Lipids 1960 Depression Screen 1962 Hepatitis C screen 1968 DTaP/Tdap/Td vaccine (1 - Tdap) 1969 Breast cancer screen 1990 Colonoscopy 12/09/1995 Colorectal Cancer Screen 12/09/1995 FIT/FOBT: Average risk 12/09/1995 Fecal-DNA (Cologuard): Average risk 12/09/1995 Sigmoidoscopy/CT colonography 12/09/1995 Respiratory Syncytial Virus (RSV) or age 60 yrs+ (1 - Risk 60-74 years 1-dose series) 2010 Shingles vaccine (2 of 2) 01/14/2020 11/19/2019 Pneumococcal 50+ years Vaccine (3 of 3 - PCV20 or PCV21) 08/30/2022 08/30/2017, 03/26/2011 Annual Wellness Visit (Medicare) 02/19/2023 A1C test (Diabetic or Prediabetic) 05/23/2024 05/24/2023, 10/26/2022 Flu vaccine (#1) 10/24/2024 02/02/2022, 06/2021, 03/22/2021, Additional history exists COVID-19 Vaccine ( - season) 2024 01/27/2022, 03/22/2021, 05/03/2020, Additional history exists DEXA (modify frequency per FRAX score) Completed 09/29/2021 Hepatitis A vaccine Aged Out No longe r eligible based on patient's age to complete this topic Hepatitis B vaccine Aged Out No longe r eligible based on patient's age to complete this topic Hib vaccine Aged Out No longer eligi ble based on patient's age to complete this topic Meningococcal (ACWY) vaccine Aged Out No longer eligible based on patient's age to complete this topic Meningococcal B vaccine Aged Out No l onger eligible based on patient's age to complete this topic Polio vaccine Aged Out No longer elig ible based on patient's age to complete this topic Procedures Procedure Name Priority Date/Time Associated Diagnosis Comments HEMOGLOBIN A1C STAT 05/24/2023 1:17 PM EST from Last 3 Months or Most Recently Relevant to Health Maintenance Results * (ABNORMAL) Hemoglobin A1C (05/24/2023 1:17 PM EST) Hemoglobin A1C 6.5(H) 4.0 - 6.0 % 05/24/2023 1:17 PM EST [employer] [facility] Estimated Avg Glucose 140 mg/dL 05/24/2023 1:17 PM EST [facility] Comment: The ADA and AACC recommend providing the estimated average glucose result to permit better patient understanding of their HBA1c result. BLOOD SPECIMEN / Unknown 05/24/2023 1:17 PM EST 05/24/2023 1:18 PM EST Amrita Flores MD CHEMISTRY ORDERABLES Final Resul t [facility] [address] [facility] [place] [address], [facility] [phone] [facility] [employer] [address] [place] [address], [facility] [phone] from Last 3 Months or Most Recently Relevant to Health Maintenance Insurance MEDICARE MEDICAID [place] MEDICARE Advance Directives * Full Code (Latest Code Status on File) Date Activated Date Inactivated Comments 07/20/2023 4:23 PM 07/21/2023 5:47 PM Care Teams Sorting Cows Worker Relationship Specialty Start Date End Date Villa Nicolas MD [address] [facility] [address] [place] [address] PCP - General Internal Medicine 09/27/22
--- OUTSIDE RECORDS SUMMARY | 2024-12-29 12:33 | XMS_ITS | Encounter Summary ---
Author Organization [facility] Address [address] [place] [address] Care Team Providers Care Boom Cat Operator Name Role Phone Villa Nicolas MD Primary Care Provider [phone] Villa Nicolas MD Unavailable Montse Celestin RN Unavailable [phone] Barbara Mccann NP Unavailable Unavailable Encounter Details Date Type Department Care Team (Late Contact Info) Description 03/27/2023 Abstract [facility] [place] [facility] [address] [facility] [address] [place] [address] Villa Nicolas MD 112 [facility] [address] [place], [place] [address] Social History Tobacco Use Types Packs/Day Years Used Date Smoking Tobacco: Every Day Cigarettes Smokeless Tobacco: Never Alcohol Use Standard Drinks/Week Comments Never 0 (1 standard drink = 0.6 oz pure alcohol) caffeine: 2-3 cups per day coffee, soda Comments Unknown Sex and Gender Information Value Date Recorded Sex Assigned at Not on file Legal Sex Female 7:20 PM EDT Gender Identity Not on file Sexual Orientation Not on file documented as of this encounter Plan of Treatment Upcoming Encounters Date Type Department Care Team ([facility] Contact Info) Description 01/01/2025 1:30 PM EDT Office Visit [facility] [address] [facility] [address] [place] [phone] Fortunato Moreno, DPM 3006 [facility] 5 [place] [address] 03/30/2025 1:00 PM EST [facility] [place] [facility] [address] [facility] [address] [place] [address] Villa Nicolas MD [address] [facility] [address] [place] [address] documented as of this encounter Visit Diagnoses Not on filedocumented in this encounter Care Teams Boom Cat Operator Relationship Specialty Start Date End Date Villa Nicolas MD [address] [facility] [address] [place] [address] PCP - General Internal Medicine 08/15/22 Villa Nicolas MD [address] [facility] [address] [place] [address] PCP - ACO Reach 09/04/22 Montse Celestin RN [address] [facility] [address] [place] [address] Registered Nurse Family Medicine 04/06/23 Barbara Mccann NP [address] [facility] [address] [place] [address] Nurse Practitioner Neurology 06/17/24 documented as of this encounter
--- OUTSIDE RECORDS SUMMARY | 2024-12-29 12:33 | XMS_ITS | Encounter Summary ---
Author Organization [facility] Address [address] [place] [address] Care Team Providers Care Laundry Assistant Name Role Phone Villa Nicolas MD Primary Care Provider [phone] Villa Nicolas MD Unavailable [phone] Montse Celestin RN Unavailable [phone] Barbara Mccann NP Unavailable Unavailable Encounter Details Date Type Department Care Team (Late Contact Info) Description 05/04/2023 Abstract [facility] [place] [facility] 112 [facility] [address] [place] [address] Villa Nicolas MD 112 [facility] [address] [place], [place] [address] Social History Tobacco Use Types Packs/Day Years [...] Upcoming Encounters Date Type Department Care Team ([facility] Contact Info) Description 01/01/2025 1:30 PM EDT Office Visit [facility] 112 [facility] [address] [place] [phone] Fortunato Moreno, DPM [address] [facility] 5 [place] [address] 03/30/2025 1:00 PM EST [facility] [place] [facility] [address] [facility] [address] [place] [address] Villa Nicolas MD [address] [facility] [address] [place] [address] documented as of this encounter Visit Diagnoses Not on filedocumented in this encounter Care Teams Laundry Assistant Relationship Specialty Start Date End Date Villa Nicolas MD [address] [facility] [address] [place] [address] PCP - General Internal Medicine 08/15/22 Villa Nicolas MD [address] [facility] 110 [place] [address] PCP - ACO Reach 09/04/22 Montse Celestin RN [address] [facility] [address] [place] [address] Registered Nurse Family Medicine 04/06/23 Barbara Mccann NP [address] [facility] [address] [place] [address] Nurse Practitioner Neurology 06/17/24 documented as of this encounter
--- OUTSIDE RECORDS SUMMARY | 2024-12-29 12:33 | XMS_ITS | Encounter Summary ---
Author Organization [facility] Address [address] [place] [address] Care Team Providers Care Vaccines Solutions Specialist Name Role Phone Villa Nicolas MD Primary Care Provider [phone] Villa Nicolas MD Unavailable Montse Celestin RN Unavailable [phone] Barbara Mccnan NP Unavailable Unavailable Encounter Details Date Type Department Care Team (Late Contact Info) Description 03/09/2023 Abstract [facility] [place] [facility] 112 [facility] [address] [place] [address] Villa Nicolas MD 112 [facility] [address] [place], [place] [address] Social History Tobacco Use Types Packs/Day Years [...] Upcoming Encounters Date Type Department Care Team ([facility] Contact Info) Description 01/01/2025 1:30 PM EDT Office Visit [facility] 112 [facility] [address] [place] [phone] Fortunato Moreno, DPM 3006 [facility] [address] [place] [address] 03/30/2025 1:00 PM EST [facility] [place] [facility] [address] [facility] [address] [place] [address] Villa Nicolas MD [address] [facility] [address] [place] [address] documented as of this encounter Visit Diagnoses Not on filedocumented in this encounter Care Teams Vaccines Solutions Specialist Relationship Specialty Start Date End Date Villa Nicolas MD [address] [facility] [address] [place] [address] PCP - General Internal Medicine 08/15/22 Villa Nicolas MD [address] [facility] [address] [place] [address] PCP - ACO Reach 09/04/22 Montse Celestin RN [address] [facility] [address] [place] [address] Registered Nurse Family Medicine 04/06/23 Barbara Mccann NP [address] [facility] [address] [place] [address] Nurse Practitioner Neurology 06/17/24 documented as of this encounter
--- OUTSIDE RECORDS SUMMARY | 2024-12-29 12:33 | XMS_ITS | Encounter Summary ---
Author Organization [facility] Address [address] [place] [address] Care Team Providers Care Media Sales Executive Name Role Phone Villa Nicolas MD Primary Care Provider [phone] Villa Nicolas MD Unavailable [phone] Montse Celestin RN Unavailable [phone] Barbara Mccann NP Unavailable Unavailable Encounter Details Date Type Department Care Team ([facility] Contact Info) Description 03/11/2024 Abstract [facility] [place] [facility] [address] [facility] [address] [place] [address] Villa Nicolas MD [address] [facility] [address] [place] [address] Social History Tobacco Use Types Packs/Day Years [...] Upcoming Encounters Date Type Department Care Team ([facility] Contact Info) Description 01/01/2025 1:30 PM EDT Office Visit [facility] [address] [place] [address] [place] [phone] Fortunato Moreno, YUE 3006 [facility] 5 [place] [address] 03/30/2025 1:00 PM EST Office Visit [facility] [place] [facility] [address] [place] [address] [place] [address] Villa Nicolas MD [address] [place] [address] [place] [address] documented as of this encounter Visit Diagnoses Not on filedocumented in this encounter Care Teams Media Sales Executive Relationship Specialty Start Date End Date Villa Nicolas MD [address] [place] [address] [place] [address] PCP - General Internal Medicine 08/15/22 Villa Nicolas MD [address] [place] [address] [place] [address] PCP - ACO Reach 09/04/22 Montse Celestin, YKLE [address] [place] [address] [place] [address] Registered Nurse Family Medicine 04/06/23 Barbara Mccann NP [address] [place] [address] [place] [address] Nurse Practitioner Neurology 06/17/24 documented as of this encounter
--- OUTSIDE RECORDS SUMMARY | 2024-12-29 12:33 | XMS_ITS | Encounter Summary ---
Author Organization [facility] Address [address] [place] [address] Care Team Providers Care Accounting Tutor Name Role Phone Villa Nicolas MD Primary Care Provider [phone] Villa Nicolas MD Unavailable [phone] Montse Celestin RN Unavailable [phone] Barbara Mccann NP Unavailable Unavailable Encounter Details Date Type Department Care Team (Late Contact Info) Description 02/05/2023 Abstract [facility] [place] [facility] 112 [facility] 110 [place] [address] Villa Nicolas MD 112 [facility] 110 [place], [place] [address] Social History Tobacco Use Types Packs/Day Years [...] Upcoming Encounters Date Type Department Care Team ([facility] Contact Info) Description 01/01/2025 1:30 PM EDT Office Visit [facility] 112 [facility] [address] [place] [address] Fortunato Moreno, DPM 3006 [facility] 5 [place] [address] 03/30/2025 1:00 PM EST [facility] [place] [facility] [address] [facility] [address] [place] [address] Villa Nicolas MD [address] [facility] 110 [place] [address] documented as of this encounter Visit Diagnoses Not on filedocumented in this encounter Care Teams Accounting Tutor Relationship Specialty Start Date End Date Villa Nicolas MD [address] [facility] 110 [place] [address] PCP - General Internal Medicine 08/15/22 Villa Nicolas MD [address] [facility] [address] [place] [address] PCP - ACO Reach 09/04/22 Montse Celestin RN [address] [facility] 230 [place] [address] Registered Nurse Family Medicine 04/06/23 Barbara Mccann NP [address] [facility] [address] [place] [address] Nurse Practitioner Neurology 06/17/24 documented as of this encounter
--- OUTSIDE RECORDS SUMMARY | 2024-12-29 12:33 | XMS_ITS | Encounter Summary ---
Author Organization [facility] Address [address] [place] [address] Care Team Providers Care Physical Education Specialist Name Role Phone Villa Nicolas MD Primary Care Provider [phone] Villa Nicolas MD Unavailable [phone] Montse Celestin RN Unavailable [phone] Barbara Mccann NP Unavailable Unavailable Encounter Details Date Type Department Care Team ([facility] Contact Info) Description 09/28/2021 Abstract [facility] [place] [facility] [address] [place] [address] Crystal Cortés, [facility] [address] [place] [address] Social History Tobacco Use Types Packs/Day Years Used Date Smoking Tobacco: Never Assessed Comments Unknown Sex and Gender Information Value Date Recorded Sex Assigned at Not on file Legal Sex Female 7:20 PM EDT Gender Identity Not on file Sexual Orientation Not on file documented as of this encounter Plan of Treatment Upcoming Encounters Date Type Department Care Team ([facility] Contact Info) Description 01/01/2025 1:30 PM EDT Office Visit [facility] [address] [place] [address] [place] [address] Fortunato Moreno DPM 3000 [facility] 5 [place] [address] 03/30/2025 1:00 PM EST Office Visit [facility] [place] [facility] [address] [place] [address] [place] [address] Villa Nicolas MD [address] [facility] 110 [place] [address] documented as of this encounter Visit Diagnoses Not on filedocumented in this encounter Care Teams Physical Education Specialist Relationship Specialty Start Date End Date Villa Nicolas MD [address] [facility] [address] [place] [address] PCP - General Internal Medicine 08/15/22 Villa Nicolas MD [address] [facility] [address] [place] [address] PCP - ACO Reach 09/04/22 Montse Celestin, KYLE [address] [place] [address] [place] [address] Registered Nurse Family Medicine 04/06/23 Barbara Mccann NP [address] [place] [address] [place] [address] Nurse Practitioner Neurology 06/17/24 documented as of this encounter
--- OUTSIDE RECORDS SUMMARY | 2024-12-29 12:33 | XMS_ITS | Encounter Summary ---
Author Organization [facility] Address [address] [place] [address] Care Team Providers Care Sales Operations Assistant Name Role Phone Villa Nicolas MD Primary Care Provider [phone] Villa Nicolas MD Unavailable [phone] Montse Celestin RN Unavailable [phone] Barbara Mccann NP Unavailable Unavailable Encounter Details Date Type Department Care Team ([facility] Contact Info) Description 08/22/2023 Abstract [facility] [place] [facility] [address] [facility] 110 [place] [address] Villa Nicolas MD [address] [facility] 110 [place] [address] Social History Tobacco Use Types Packs/Day Years [...] Upcoming Encounters Date Type Department Care Team ([facility] Contact Info) Description 01/01/2025 1:30 PM EDT Office Visit [facility] [address] [place] [address] [place] [address] Fortunato Moreno, YUE 3006 [facility] 5 [place] [address] 03/30/2025 1:00 PM EST Office Visit [facility] [place] [facility] [address] [place] [address] [place] [address] Villa Nicolas MD [address] [place] [address] [place] [address] documented as of this encounter Visit Diagnoses Not on filedocumented in this encounter Care Teams Sales Operations Assistant Relationship Specialty Start Date End Date Villa Nicolas MD [address] [place] [address] [place] [address] PCP - General Internal Medicine 08/15/22 Villa Nicolas MD [address] [place] [address] [place] [address] PCP - ACO Reach 09/04/22 Montse Celestin, KYLE [address] [place] [address] [place] [address] Registered Nurse Family Medicine 04/06/23 Barbara Mccann NP [address] [place] [address] [place] [address] Nurse Practitioner Neurology 06/17/24 documented as of this encounter
--- OUTSIDE RECORDS SUMMARY | 2024-12-29 12:33 | XMS_ITS | Encounter Summary ---
Author Organization [facility] Address [address] [place] [address] Care Team Providers Care Performance Test Engineer Name Role Phone Villa Nicolas MD Primary Care Provider [phone] Villa Nicolas MD Unavailable Montse Celestin RN Unavailable [phone] Barbara Mccann NP Unavailable Unavailable Encounter Details Date Type Department Care Team ([facility] Contact Info) Description 09/13/2023 Abstract [facility] [place] [facility] [address] [facility] 110 [place] [address] Villa Nicolas MD [address] [facility] 110 [place] [address] Social History Tobacco Use Types Packs/Day Years [...] Upcoming Encounters Date Type Department Care Team ([facility] Contact Info) Description 01/01/2025 1:30 PM EDT Office Visit [facility] [address] [place] [address] [place] [address] Fortunato Moreno, YUE 3006 [facility] 5 [place] [address] 03/30/2025 1:00 PM EST Office Visit [facility] [place] [facility] [address] [place] [address] [place] [address] Villa Nicolas MD [address] [place] [address] [place] [address] documented as of this encounter Visit Diagnoses Not on filedocumented in this encounter Care Teams Performance Test Engineer Relationship Specialty Start Date End Date Villa Nicolas MD [address] [place] [address] [place] [address] PCP - General Internal Medicine 08/15/22 Villa Nicolas MD [address] [facility] [address] [place] [address] PCP - ACO Reach 09/04/22 Montse Celestin, KYLE [address] [place] [address] [place] [address] Registered Nurse Family Medicine 04/06/23 Barbara Mccann NP [address] [place] [address] [place] [address] Nurse Practitioner Neurology 06/17/24 documented as of this encounter
--- OUTSIDE RECORDS SUMMARY | 2024-12-29 12:33 | XMS_ITS | Encounter Summary ---
Author Organization [facility] Address [address] [place] [address] Care Team Providers Care Pin Worker Name Role Phone Villa Nicolas MD Primary Care Provider [phone] Villa Nicolas MD Unavailable [phone] Montse Celestin RN Unavailable [phone] Barbara Mccann NP Unavailable Unavailable Encounter Details Date Type Department Care Team ([facility] Contact Info) Description 10/25/2023 Abstract [facility] [place] [facility] [address] [facility] 110 [place] [address] Villa Nicolas MD [address] [facility] 110 [place] [address] Social History Tobacco Use Types Packs/Day Years [...] Upcoming Encounters Date Type Department Care Team ([facility] Contact Info) Description 01/01/2025 1:30 PM EDT Office Visit [facility] [address] [place] [address] [place] [address] Fortunato Moreno, YUE 3006 [facility] 5 [place] [address] 03/30/2025 1:00 PM EST Office Visit [facility] [place] [facility] [address] [place] [address] [place] [address] Villa Nicolas MD [address] [place] [address] [place] [address] documented as of this encounter Visit Diagnoses Not on filedocumented in this encounter Care Teams Pin Worker Relationship Specialty Start Date End Date Villa Nicolas MD [address] [place] [address] [place] [address] PCP - General Internal Medicine 08/15/22 Villa Nicolas MD [address] [facility] [address] [place] [address] PCP - ACO Reach 09/04/22 Montse Celestin, KYLE [address] [place] [address] [place] [address] Registered Nurse Family Medicine 04/06/23 Barbara Mccann NP [address] [place] [address] [place] [address] Nurse Practitioner Neurology 06/17/24 documented as of this encounter
--- OUTSIDE RECORDS SUMMARY | 2024-12-29 12:33 | XMS_ITS | Encounter Summary ---
Author Organization [facility] Address [address] [place] [address] Care Team Providers Care Electroplater Name Role Phone Villa Nicolas MD Primary Care Provider [phone] Villa Nicolas MD Unavailable [phone] Montse Celestin RN Unavailable [phone] Barbara Mccann NP Unavailable Unavailable Encounter Details Date Type Department Care Team ([facility] Contact Info) Description 12/06/2023 Abstract [facility] [place] [facility] [address] [facility] 110 [place] [address] Villa Nicolas MD [address] [facility] 110 [place] [address] Social History Tobacco Use Types Packs/Day Years [...] Upcoming Encounters Date Type Department Care Team ([facility] Contact Info) Description 01/01/2025 1:30 PM EDT Office Visit [facility] [address] [place] [address] [place] [address] Fortuntao Moreno, YUE 3006 [facility] 5 [place] [address] 03/30/2025 1:00 PM EST Office Visit [facility] [place] [facility] [address] [place] [address] [place] [address] Villa Nicolas MD [address] [place] [address] [place] [address] documented as of this encounter Visit Diagnoses Not on filedocumented in this encounter Care Teams Electroplater Relationship Specialty Start Date End Date Villa Nicolas MD [address] [place] [address] [place] [address] PCP - General Internal Medicine 08/15/22 Villa Nicolas MD [address] [place] [address] [place] [address] PCP - ACO Reach 09/04/22 Montse Celestin, KYLE [address] [place] [address] [place] [address] Registered Nurse Family Medicine 04/06/23 Barbara Mccann NP [address] [place] [address] [place] [address] Nurse Practitioner Neurology 06/17/24 documented as of this encounter
--- OUTSIDE RECORDS SUMMARY | 2024-12-29 12:33 | XMS_ITS | Encounter Summary ---
Author Organization [facility] Address [address] [place] [address] Care Team Providers Care Chief Meter Reader Name Role Phone Villa Nicolas MD Primary Care Provider [phone] Villa Nicolas MD Unavailable [phone] Montse Celestin RN Unavailable [phone] Barbara Mccann NP Unavailable Unavailable Encounter Details Date Type Department Care Team ([facility] Contact Info) Description 09/13/2023 Abstract [facility] [place] [facility] [address] [facility] 110 [place] [address] Villa Nicolas MD [address] [facility] 110 [place] [address] Social History Tobacco Use Types Packs/Day Years [...] Upcoming Encounters Date Type Department Care Team ([facility] Contact Info) Description 01/01/2025 1:30 PM EDT Office Visit [facility] [address] [place] [address] [place] [address] Fortunato Moreno, YUE 3006 [facility] 5 [place] [address] 03/30/2025 1:00 PM EST Office Visit [facility] [place] [facility] [address] [place] [address] [place] [address] Villa Nicolas MD [address] [place] [address] [place] [address] documented as of this encounter Visit Diagnoses Not on filedocumented in this encounter Care Teams Chief Meter Reader Relationship Specialty Start Date End Date Villa Nicolas MD [address] [place] [address] [place] [address] PCP - General Internal Medicine 08/15/22 Villa Nicolas MD [address] [place] [address] [place] [address] PCP - ACO Reach 09/04/22 Montse Celestin, KYLE [address] [place] [address] [place] [address] Registered Nurse Family Medicine 04/06/23 Barbara Mccann NP [address] [place] [address] [place] [address] Nurse Practitioner Neurology 06/17/24 documented as of this encounter
--- OUTSIDE RECORDS SUMMARY | 2024-12-29 12:33 | XMS_ITS | Encounter Summary ---
Author Organization [facility] Address [address] [place] [address] Care Team Providers Care Mobile Phone Salesperson Name Role Phone Villa Nicolas MD Primary Care Provider [phone] Villa Nicolas MD Unavailable [phone] Montse Celestin RN Unavailable [phone] Barbara Mccann NP Unavailable Unavailable Encounter Details Date Type Department Care Team (Late Contact Info) Description 04/24/2023 Abstract [facility] [place] [facility] 112 [facility] 110 [place] [address] Villa Nicolas MD 112 [facility] 110 [place], [place] [address] Social History Tobacco Use Types Packs/Day Years [...] Upcoming Encounters Date Type Department Care Team ([facility] Contact Info) Description 01/01/2025 1:30 PM EDT Office Visit [facility] 112 [facility] 120 [place] [address] Fortunato Moreno, DPM 3006 [facility] 5 [place] [address] 03/30/2025 1:00 PM EST [facility] [place] [facility] [address] [facility] 110 [place] [address] [place] Nicolas MD [address] [facility] 110 [place] [address] documented as of this encounter Visit Diagnoses Not on filedocumented in this encounter Care Teams Mobile Phone Salesperson Relationship Specialty Start Date End Date Villa Nicolas MD [address] [facility] 110 [place] [address] PCP - General Internal Medicine 08/15/22 Villa Nicolas MD [address] [facility] 110 [place] [address] PCP - ACO Reach 09/04/22 Montse Celestin RN [address] [facility] [address] [place] [address] Registered Nurse Family Medicine 04/06/23 Barbara Mccann NP [address] [facility] [address] [place] [address] Nurse Practitioner Neurology 06/17/24 documented as of this encounter
--- OUTSIDE RECORDS SUMMARY | 2024-12-29 12:33 | XMS_ITS | Encounter Summary ---
Author Organization [facility] Address [address] [place] [address] Care Team Providers Care Block Mason Name Role Phone Villa Nicolas MD Primary Care Provider [phone] Villa Nicolas MD Unavailable [phone] Montse Celestin RN Unavailable [phone] Barbara Mccann NP Unavailable Unavailable Encounter Details Date Type Department Care Team (Late Contact Info) Description 02/08/2023 Abstract [facility] [place] [facility] 112 [facility] 110 [place] [address] Villa Nicolas MD 112 [facility] 110 [place], [place] [address] Social History Tobacco Use Types Packs/Day Years [...] Upcoming Encounters Date Type Department Care Team ([facility] Contact Info) Description 01/01/2025 1:30 PM EDT Office Visit [facility] 112 [facility] [address] [place] [address] Fortunato Moreno, DPM 3006 [facility] 5 [place] [address] 03/30/2025 1:00 PM EST [facility] [place] [facility] [address] [facility] 110 [place] [address] [place] MD [address] [facility] 110 [place] [address] documented as of this encounter Visit Diagnoses Not on filedocumented in this encounter Care Teams Block Mason Relationship Specialty Start Date End Date Villa Nicolas MD [address] [facility] 110 [place] [address] PCP - General Internal Medicine 08/15/22 Villa Nicolas MD [address] [facility] 110 [place] [address] PCP - ACO Reach 09/04/22 Montse Celestin RN [address] [facility] 230 [place] [address] Registered Nurse Family Medicine 04/06/23 Barbara Mccann NP [address] [facility] [address] [place] [address] Nurse Practitioner Neurology 06/17/24 documented as of this encounter
--- OUTSIDE RECORDS SUMMARY | 2024-12-29 12:33 | XMS_ITS | Encounter Summary ---
Author Organization [facility] Address [address] [place] [address] Care Team Providers Care Rail Bender Name Role Phone Villa Nicolas MD Primary Care Provider [phone] Villa Nicolas MD Unavailable [phone] Montse Celestin RN Unavailable [phone] Barbara Mccann NP Unavailable Unavailable Encounter Details Date Type Department Care Team (Late Contact Info) Description 03/29/2023 Orders Only [facility] [place] [facility] [address] [facility] [place] [address] [place] [address] A, Unknown Practice [address] [place], [place] [address] Social History Tobacco Use Types Packs/Day Years [...] PODIATRY [address] [place] [address] [place] [address] Fortunato Moreno, DPM 3006 [facility] 5 [place] [address] 03/30/2025 1:00 PM EST Office Visit [facility] [place] [facility] [address] [facility] [address] [place] [address] [place] MD [address] [facility] 110 [place] [address] documented as of this encounter Procedures Procedure Name Priority Date/Time Associated Diagnosis Comments XR CHEST 1 VIEW Routine 03/29/2023 11:42 AM EST documented in this encounter Results * XR chest 1 view (03/29/2023 11:42 AM EST) Anatomical Region Laterality Modality Chest Radiographic Peg ging us Unknown Practice A IMG XR PROCEDURES Final Resul t documented in this encounter Visit Diagnoses Not on filedocumented in this encounter Care Teams Rail Bender Relationship Specialty Start Date End Date Villa Nicolas MD [address] [facility] [address] [place] [address] PCP - General Internal Medicine 08/15/22 Villa Nicolas MD [address] [facility] 110 [place] [address] PCP - ACO Reach 09/04/22 Montse Celestin, KYLE [address] [place] [address] [place] [address] Registered Nurse Family Medicine 04/06/23 Barbara Mccann NP [address] [place] [address] [place] [address] Nurse Practitioner Neurology 06/17/24 documented as of this encounter
--- OUTSIDE RECORDS SUMMARY | 2024-12-29 12:33 | XMS_ITS | Encounter Summary ---
Author Organization [facility] Address [address] [place] [address] Care Team Providers Care District Or District Office Director Name Role Phone Villa Nicolas MD Primary Care Provider [phone] Villa Nicolas MD Unavailable [phone] Montse Celestin RN Unavailable [phone] Barbara Mccann NP Unavailable Unavailable Encounter Details Date Type Department Care Team ([facility] Contact Info) Description 11/02/2023 Abstract [facility] [place] [facility] [address] [facility] 110 [place] [address] [place] Nicolas MD [address] [facility] 110 [place] [address] Social History Tobacco Use Types Packs/Day Years [...] Upcoming Encounters Date Type Department Care Team ([facility] Contact Info) Description 01/01/2025 1:30 PM EDT Office Visit [facility] [address] [place] [address] [place] [address] Fortunato Moreno, YUE 3006 [facility] 5 [place] [address] 03/30/2025 1:00 PM EST Office Visit [facility] [place] [facility] [address] [place] [address] [place] [address] [place] Nicolas MD [address] [place] [address] [place] [address] documented as of this encounter Visit Diagnoses Not on filedocumented in this encounter Care Teams District Or District Office Director Relationship Specialty Start Date End Date Villa Nicolas MD [address] [place] [address] [place] [address] PCP - General Internal Medicine 08/15/22 Villa Nicolas MD [address] [place] [address] [place] [address] PCP - ACO Reach 09/04/22 Montse Celestin, KYLE [address] [place] [address] [place] [address] Registered Nurse Family Medicine 04/06/23 Barbara Mccann NP [address] [place] [address] [place] [address] Nurse Practitioner Neurology 06/17/24 documented as of this encounter
--- OUTSIDE RECORDS SUMMARY | 2024-12-29 12:33 | XMS_ITS | Encounter Summary ---
Author Organization [facility] Address [address] [place] [address] Care Team Providers Care Advertising Sales Representative Name Role Phone Villa Nicolas MD Primary Care Provider [phone] [place] Nicolas MD Unavailable [phone] Montse Celestin RN Unavailable [phone] Barbara Mccann NP Unavailable Unavailable Encounter Details Date Type Department Care Team (Late Contact Info) Description 05/23/2023 Abstract [facility] [place] [facility] [address] [facility] 110 [place] [address] [place] Nicolas MD 112 [facility] 110 [place], [place] [address] Social History Tobacco Use Types Packs/Day Years [...] Type Department Care Team ([facility] Contact Info) Description 01/01/2025 1:30 PM EDT Office Visit [facility] 112 [facility] [address] [place] [address] Fortunato Moreno, DPM 3006 [facility] [address] [place] [address] 03/30/2025 1:00 PM EST [facility] [place] [facility] [address] [facility] 110 [place] [address] [place] MD [address] [facility] 110 [place] [address] documented as of this encounter Visit Diagnoses Not on filedocumented in this encounter Care Teams Advertising Sales Representative Relationship Specialty Start Date End Date [place] Nicolas MD [address] [facility] 110 [place] [address] PCP - General Internal Medicine 08/15/22 Villa Nicolas MD [address] [facility] 110 [place] [address] PCP - ACO Reach 09/04/22 Montse Celestin RN [address] [facility] [address] [place] [address] Registered Nurse Family Medicine 04/06/23 Barbara Mccann NP [address] [facility] [address] [place] [address] Nurse Practitioner Neurology 06/17/24 documented as of this encounter
--- OUTSIDE RECORDS SUMMARY | 2024-12-29 12:33 | XMS_ITS | Encounter Summary ---
Author Organization [facility] Address [address] [place] [address] Care Team Providers Care Airline Lounge Receptionist Name Role Phone Villa Nicolas MD Primary Care Provider [phone] Villa Nicolas MD Unavailable [phone] Montse Celestin RN Unavailable [phone] Barbara Mccann NP Unavailable Unavailable Encounter Details Date Type Department Care Team ([facility] Contact Info) Description 12/06/2023 Abstract [facility] [place] [facility] [address] [facility] 110 [place] [address] Villa Nicolas MD [address] [facility] 110 [place] [address] Social History Tobacco Use Types Packs/Day Years [...] Upcoming Encounters Date Type Department Care Team ([facility] Contact Info) Description 01/01/2025 1:30 PM EDT Office Visit [facility] [address] [place] [address] [place] [address] Fortunato Moreno, YUE 3006 [facility] 5 [place] [address] 03/30/2025 1:00 PM EST Office Visit [facility] [place] [facility] [address] [place] [address] [place] [address] Villa Nicolas MD [address] [place] [address] [place] [address] documented as of this encounter Visit Diagnoses Not on filedocumented in this encounter Care Teams Airline Lounge Receptionist Relationship Specialty Start Date End Date Villa Nicolas MD [address] [place] [address] [place] [address] PCP - General Internal Medicine 08/15/22 Vilal Nicolas MD [address] [place] [address] [place] [address] PCP - ACO Reach 09/04/22 Montse Celestin, KYLE [address] [place] [address] [place] [address] Registered Nurse Family Medicine 04/06/23 Barbara Mccann NP [address] [place] [address] [place] [address] Nurse Practitioner Neurology 06/17/24 documented as of this encounter
--- OUTSIDE RECORDS SUMMARY | 2024-12-29 12:33 | XMS_ITS | Encounter Summary ---
Author Organization [facility] Address [address] [place] [address] Care Team Providers Care Flatbed Company Driver Name Role Phone Villa Nicolas MD Primary Care Provider [phone] Villa Nicolas MD Unavailable [phone] Montse Celestin RN Unavailable [phone] Barbara Mccann NP Unavailable Unavailable Encounter Details Date Type Department Care Team (Late Contact Info) Description 03/09/2023 Abstract [facility] [place] [facility] 112 [facility] 110 [place] [address] Villa Nicolas MD 112 [facility] 110 [place], [place] [id number] Social History Tobacco Use Types Packs/Day Years [...] Upcoming Encounters Date Type Department Care Team ([facility] Contact Info) Description 01/01/2025 1:30 PM EDT Office Visit [facility] 112 [facility] 120 [place] [phone] Fortunato Moreno, DPM 3006 [facility] 5 [place] [address] 03/30/2025 1:00 PM EST [facility] [place] [facility] [address] [facility] 110 [place] [address] Villa Nicolas MD [address] [facility] 110 [place] [address] documented as of this encounter Visit Diagnoses Not on filedocumented in this encounter Care Teams Flatbed Company Driver Relationship Specialty Start Date End Date Villa Nicolas MD [address] [facility] 110 [place] [address] PCP - General Internal Medicine 08/15/22 Villa Nicolas MD [address] [facility] 110 [place] [address] PCP - ACO Reach 09/04/22 Montse Celestin RN [address] [facility] 230 [place] [address] Registered Nurse Family Medicine 04/06/23 Barbara Mccann NP [address] [facility] [address] [place] [address] Nurse Practitioner Neurology 06/17/24 documented as of this encounter
--- OUTSIDE RECORDS SUMMARY | 2024-12-29 12:33 | XMS_ITS | Encounter Summary ---
Author Organization [facility] Address [address] [place] [address] Care Team Providers Care Boat Designer Name Role Phone Fidencio LEWIS MD, Villa Allen Primary Care Provider [phone] Source Comments In the event this information is protected by the Federal Confidentiality of Alcohol and Drug AbusePatient Records regulations: The Federal rules restrict any use of the information to criminally investigate or prosecute any alcohol or drug abuse patient.[facility] Encounter Details Date Type Department Care Team (Late st Contact Info) Description 06/23/2020 [facility]060 [address] [place] [address] Baljit Hanson MD [address] [place] [address] Social History Tobacco Use Types Packs/Day Years Used Date Smoking Tobacco: Former Cigarettes Q uit: 01/25/2020 Smokeless Tobacco: Never Area Deprivation Index Answer Date Jhony rded National Score (1-100), lower number is lower ri sk Not on file 05/20/2020 State Score (1-10), lower number is lower risk N ot on file 05/20/2020 Data from: https://www.neighborhoodatlas.medicine.[facility].edu/. Last address used for calculation Not on file 05/20/2020 Comments No Sex and Gender Information Value Date Recorded Sex Assigned at Not on file Legal Sex Female 4:19 PM EST Gender Identity Not on file Sexual Orientation Not on file COVID-19 Exposure Response Date Recorded In the last month, have you been in contact with someone who was confirmed or suspected to have Coronavirus / COVID-19? No / Unsure 06/18/2020 2:15 PM EDT documented as of this encounter Plan of Treatment Not on file documented as of this encounter Visit Diagnoses Not on filedocumented in this encounter Care Teams Boat Designer Relationship Specialty Start Date End Date Villa Nicolas II, MD 112 [facility] 110 [place] [address] PCP - General Internal Medicine 05/21/20 documented as of this encounter
--- OUTSIDE RECORDS SUMMARY | 2024-12-29 12:33 | XMS_ITS | Encounter Summary ---
Author Organization [facility] Address [address] [place] [address] Care Team Providers Care Pile Driver Operator Barge Mounted Name Role Phone Villa Nicolas MD Primary Care Provider [phone] Villa Nicolas MD Unavailable [phone] Motnse Celestin RN Unavailable [phone] Barbara Mccann NP Unavailable Unavailable Encounter Details Date Type Department Care Team (Late Contact Info) Description 05/23/2023 Abstract [facility] [place] [facility] 112 [facility] 110 [place] [address] Villa Nicolas MD 112 [facility] 110 [place], [place] [address] Social History Tobacco Use Types Packs/Day Years [...] Upcoming Encounters Date Type Department Care Team ([facility] Contact Info) Description 01/01/2025 1:30 PM EDT Office Visit [facility] 112 [facility] [address] [place] [address] Fortunato Moreno, DPM 3006 [facility] 5 [place] [address] 03/30/2025 1:00 PM EST [facility] [place] [facility] [address] [facility] 110 [place] [address] Villa Nicolas MD [address] [facility] 110 [place] [address] documented as of this encounter Visit Diagnoses Not on filedocumented in this encounter Care Teams Pile Driver Operator Barge Mounted Relationship Specialty Start Date End Date Villa Nicolas MD [address] [facility] [address] [place] [address] PCP - General Internal Medicine 08/15/22 Villa Nicolas MD [address] [place] [facility] 110 [place] [address] PCP - ACO Reach 09/04/22 Montse Celestin RN [address] [facility] [address] [place] [address] Registered Nurse Family Medicine 04/06/23 Barbara Mccann NP [address] [facility] [address] [place] [address] Nurse Practitioner Neurology 06/17/24 documented as of this encounter
--- OUTSIDE RECORDS SUMMARY | 2024-12-29 12:33 | XMS_ITS | Encounter Summary ---
Author Organization [facility] Address [address] [place] [address] Care Team Providers Care Side Panel Padder Name Role Phone Villa Nicolas MD Primary Care Provider [phone] Villa Nicolas MD Unavailable [phone] Montse Celestin RN Unavailable [phone] Barbara Mccann NP Unavailable Unavailable Encounter Details Date Type Department Care Team (Late Contact Info) Description 02/06/2023 Abstract [facility] [place] [facility] 112 [facility] 110 [place] [address] Villa Nicolas MD 112 [facility] 110 [place], [place] [address] Social History Tobacco Use Types Packs/Day Years [...] Upcoming Encounters Date Type Department Care Team ([facility] Contact Info) Description 01/01/2025 1:30 PM EDT Office Visit [facility] 112 [facility] 120 [place] [address] Fortunato Moreno, DPM 3006 [facility] 5 [place] [address] 03/30/2025 1:00 PM EST [facility] [place] [facility] [address] [facility] 110 [place] [address] Villa Nicolas MD [address] [facility] 110 [place] [address] documented as of this encounter Visit Diagnoses Not on filedocumented in this encounter Care Teams Side Panel Padder Relationship Specialty Start Date End Date Villa Nicolas MD [address] [facility] 110 [place] [address] PCP - General Internal Medicine 08/15/22 Villa Nicolas MD [address] [facility] 110 [place] [address] PCP - ACO Reach 09/04/22 Montse Celestin RN [address] [facility] 230 [place] [address] Registered Nurse Family Medicine 04/06/23 Barbara Mccann NP [address] [facility] [address] [place] [address] Nurse Practitioner Neurology 06/17/24 documented as of this encounter
--- OUTSIDE RECORDS SUMMARY | 2024-12-29 12:33 | XMS_ITS | Encounter Summary ---
Author Organization [facility] Address [address] [place] [address] Care Team Providers Care Spinneret Cleaner Name Role Phone Villa Nicolas MD Primary Care Provider [phone] Villa Nicolas MD Unavailable [phone] Montse Celestin RN Unavailable [phone] Barbara Mccann NP Unavailable Unavailable Encounter Details Date Type Department Care Team (Late Contact Info) Description 05/16/2023 Abstract [facility] [place] [facility] 112 [facility] 110 [place] [address] Villa Nicolas MD 112 [facility] 110 [place], [place] [address] Social History Tobacco Use Types Packs/Day Years [...] Encounters Date Type Department Care Team ([facility] Contact Info) Description 01/01/2025 1:30 PM EDT Office Visit [facility] 112 [facility] [address] [place] [phone] Fortunato Moreno, DPM 3006 [facility] 5 [place] [address] 03/30/2025 1:00 PM EST [facility] [place] [facility] [address] [facility] [address] [place] [address] Villa Nicolas MD [address] [facility] 110 [place] [address] documented as of this encounter Visit Diagnoses Not on filedocumented in this encounter Care Teams Spinneret Cleaner Relationship Specialty Start Date End Date Villa Nicolas MD [address] [facility] 110 [place] [address] PCP - General Internal Medicine 08/15/22 Villa Nicolas MD [address] [facility] 110 [place] [address] PCP - ACO Reach 09/04/22 Montse Celestin RN [address] [facility] [address] [place] [address] Registered Nurse Family Medicine 04/06/23 Barbara Mccann NP [address] [facility] [address] [place] [address] Nurse Practitioner Neurology 06/17/24 documented as of this encounter
--- OUTSIDE RECORDS SUMMARY | 2024-12-29 12:33 | XMS_ITS | Encounter Summary ---
Author Organization [facility] Address [address] [place] [address] Care Team Providers Care Operational Risk Consultant Name Role Phone Villa Nicolas MD Primary Care Provider [phone] Villa Nicolas MD Unavailable [phone] Montse Celestin RN Unavailable [phone] Barbara Mccann NP Unavailable Unavailable Encounter Details Date Type Department Care Team (Late Contact Info) Description 04/03/2023 Abstract [facility] [place] [facility] 112 [facility] 110 [place] [address] Villa Nicolas MD 112 [facility] 110 [place], [place] [address] Social History Tobacco Use Types Packs/Day Years [...] Upcoming Encounters Date Type Department Care Team ([facility] Contact Info) Description 01/01/2025 1:30 PM EDT Office Visit [facility] 112 [facility] [address] [place] [address] Fortunato Moreno, DPM 3006 [facility] 5 [place] [address] 03/30/2025 1:00 PM EST Office Visit [facility] [place] [facility] [address] [facility] 110 [place] [address] Villa Nicolas MD [address] [facility] 110 [place] [address] documented as of this encounter Visit Diagnoses Not on filedocumented in this encounter Care Teams Operational Risk Consultant Relationship Specialty Start Date End Date Villa Nicolas MD [address] [facility] 110 [place] [address] PCP - General Internal Medicine 08/15/22 Villa Nicolas MD 112 [facility] 110 [place] [address] PCP - ACO Reach 09/04/22 Montse Celestin RN [address] [facility] [address] [place] [address] Registered Nurse Family Medicine 04/06/23 Barbara Mccann NP [address] [facility] [address] [place] [address] Nurse Practitioner Neurology 06/17/24 documented as of this encounter
--- OUTSIDE RECORDS SUMMARY | 2024-12-29 12:33 | XMS_ITS | Encounter Summary ---
Author Organization [facility] Address [address] [place] [address] Care Team Providers Care Juvenile Detention Officer Name Role Phone Villa Nicolas MD Primary Care Provider [phone] Villa Nicolas MD Unavailable [phone] Montse Celestin RN Unavailable [phone] Barbara Mccann NP Unavailable Unavailable Encounter Details Date Type Department Care Team ([facility] Contact Info) Description 12/06/2023 Abstract [facility] [place] [facility] [address] [facility] 110 [place] [address] Villa Nicolas MD [address] [facility] 110 [place] [address] Social History Tobacco Use Types Packs/Day Years [...] Upcoming Encounters Date Type Department Care Team ([facility] Contact Info) Description 01/01/2025 1:30 PM EDT Office Visit [facility] [address] [place] [address] [place] [address] Fortunato Moreno, YUE 3006 [facility] 5 [place] [address] 03/30/2025 1:00 PM EST Office Visit [facility] [place] [facility] [address] [place] [address] [place] [address] Villa Nicolas MD [address] [place] [address] [place] [address] documented as of this encounter Visit Diagnoses Not on filedocumented in this encounter Care Teams Juvenile Detention Officer Relationship Specialty Start Date End Date Villa Nicolas MD [address] [place] [address] [place] [address] PCP - General Internal Medicine 08/15/22 Villa Nicolas MD [address] [place] [address] [place] [address] PCP - ACO Reach 09/04/22 Montse Celestin, KYLE [address] [place] [address] [place] [address] Registered Nurse Family Medicine 04/06/23 Barbara Mccann NP [address] [place] [address] [place] [address] Nurse Practitioner Neurology 06/17/24 documented as of this encounter
--- OUTSIDE RECORDS SUMMARY | 2024-12-29 12:33 | XMS_ITS | Encounter Summary ---
Author Organization [facility] Address [address] [place] [address] Care Team Providers Care Ironworker Apprentice Name Role Phone Villa Nicolas MD Primary Care Provider [phone] Villa Nicolas MD Unavailable [phone] Montse Celestin RN Unavailable [phone] Barbara Mccann NP Unavailable Unavailable Encounter Details Date Type Department Care Team (Late Contact Info) Description 04/16/2023 Abstract [facility] [place] [facility] 112 [facility] 110 [place] [address] Villa Nicolas MD 112 [facility] 110 [place], [place] [address] Social History Tobacco Use Types Packs/Day Years [...] Upcoming Encounters Date Type Department Care Team ([facility] Contact Info) Description 01/01/2025 1:30 PM EDT Office Visit [facility] 112 [facility] [address] [place] [address] Fortunato Moreno, DPM 3006 [facility] 5 [place] [address] 03/30/2025 1:00 PM EST Office Visit [facility] [place] [facility] [address] [facility] 110 [place] [address] Villa Nicolas MD [address] [facility] 110 [place] [address] documented as of this encounter Visit Diagnoses Not on filedocumented in this encounter Care Teams Ironworker Apprentice Relationship Specialty Start Date End Date Villa Nicolas MD [address] [facility] 110 [place] [address] PCP - General Internal Medicine 08/15/22 Villa Nicolas MD [address] [facility] 110 [place] [address] PCP - ACO Reach 09/04/22 Montse Celestin RN [address] [facility] [address] [place] [address] Registered Nurse Family Medicine 04/06/23 Barbara Mccann NP [address] [facility] [address] [place] [address] Nurse Practitioner Neurology 06/17/24 documented as of this encounter
--- OUTSIDE RECORDS SUMMARY | 2024-12-29 12:33 | XMS_ITS | Encounter Summary ---
Author Organization [facility] Address [address] [place] [address] Care Team Providers Care Line Maintenance Technician Name Role Phone Villa Nicolas MD Primary Care Provider [phone] Villa Nicolas MD Unavailable [phone] Montse Celestin RN Unavailable [phone] Barbara Mccann NP Unavailable Unavailable Encounter Details Date Type Department Care Team (Late Contact Info) Description 02/09/2023 Abstract [facility] [place] [facility] 112 [facility] 110 [place] [address] Villa Nicolas MD 112 [facility] 110 [place], [place] [address] Social History Tobacco Use Types Packs/Day Years [...] Upcoming Encounters Date Type Department Care Team ([facility] Contact Info) Description 01/01/2025 1:30 PM EDT Office Visit [facility] 112 [facility] [address] [place] [address] Fortunato Moreno, DPM 3006 [facility] 5 [place] [address] 03/30/2025 1:00 PM EST [facility] [place] [facility] [address] [facility] 110 [place] [address] Villa Nicolas MD [address] [facility] 110 [place] [address] documented as of this encounter Visit Diagnoses Not on filedocumented in this encounter Care Teams Line Maintenance Technician Relationship Specialty Start Date End Date Villa Nicolas MD [address] [facility] 110 [place] [address] PCP - General Internal Medicine 08/15/22 Villa Nicolas MD [address] [facility] [address] [place] [address] PCP - ACO Reach 09/04/22 Montse Celestin RN [address] [facility] 230 [place] [address] Registered Nurse Family Medicine 04/06/23 Barbara Mccann NP [address] [facility] [address] [place] [address] Nurse Practitioner Neurology 06/17/24 documented as of this encounter
--- OUTSIDE RECORDS SUMMARY | 2024-12-29 12:34 | XMS_ITS | Encounter Summary ---
Author Organization [facility] Address [address] [place] [address] Care Team Providers Care Bark Press Operator Name Role Phone Villa Nicolas MD Primary Care Provider [phone] Villa Nicolas MD Unavailable [phone] Montse Celestin RN Unavailable [phone] Barbara Mccann NP Unavailable Unavailable Encounter Details Date Type Department Care Team (Late Contact Info) Description 06/13/2023 Abstract [facility] [place] [facility] 112 [facility] [address] [place] [address] Villa Nicolas MD 112 [facility] 110 [place], [place] [address] Social History Tobacco Use Types Packs/Day Years [...] Upcoming Encounters Date Type Department Care Team ([facility] Contact Info) Description 01/01/2025 1:30 PM EDT Office Visit [facility] 112 [facility] [address] [place] [address] Fortunato Moreno, DPM 3006 [facility] 5 [place] [address] 03/30/2025 1:00 PM EST [facility] [place] [facility] [address] [facility] [address] [place] [address] Villa Nicolas MD [address] [place] [address] [place] [address] documented as of this encounter Visit Diagnoses Not on filedocumented in this encounter Care Teams Bark Press Operator Relationship Specialty Start Date End Date Villa Nicolas MD [address] [facility] [address] [place] [address] PCP - General Internal Medicine 08/15/22 Villa Nicolas MD [address] [facility] 110 [place] [address] PCP - ACO Reach 09/04/22 Montse Celestin RN [address] [place] [address] [place] [address] Registered Nurse Family Medicine 04/06/23 Barbara Mccann NP [address] [place] [address] [place] [address] Nurse Practitioner Neurology 06/17/24 documented as of this encounter
--- OUTSIDE RECORDS SUMMARY | 2024-12-29 12:34 | XMS_ITS ---
Author Organization [facility] Care Team Providers Care Capability Lead Name Role Phone MILAN*, ITRI Unavailable Unavailable Max Montoya Unavailable Allergies and adverse reactions Code CodeSystem Substance Reaction Severity StartDate Concern Status Trileptal Unknown 02/25/2020 active Cymbalta Unknown 02/25/2020 active Augmentin Mild 02/25/2020 active Care Team Name Role Address Phone Organization Dates ITRI MILAN* PCP [address] [facility], [place], [address], [place] (Office): : [facility] 02/25/2020 - 11/08/[address] [facility], [place], [address], [facility] 02/25/2020 - 11/08/2020 Immunizations Immunization Status Vaccine Details Vaccine Code CodeSystem Date Notes Influenza completed Influenza, high-dose, split virus, quadrivalent, injectable, preservative free 197 CVX created date: 03/04/2020 administer ed date: 11/13/2019 Christofere GONZÁLEZE TB 2 Step Mantoux Skin Test completed tuberculin skin test; unspecified formulation Step 2 of Multi-step with next step required 98 CVX created date: 08/26/2020 consent date: 08/26/2020 administer ed date: 03/04/2020 TB 2 Step Mantoux Skin Test completed tuberculin skin test; unspecified formulation Step 1 of Multi-step with next step required 98 CVX created date: 03/04/2020 consent date: 03/04/2020 administer ed date: 02/26/2020 SARS-COV-2 (COVID-19) completed unknown vaccine or immune globulin lotNumber: [id number] Mfg: Pfizer Given Right Deltoid Step 2 of Multi-step with next step required 999 CVX created date: 05/03/2020 consent date: 05/03/2020 administer ed date: 05/03/2020 SARS-COV-2 (COVID-19) completed unknown vaccine or immune globulin lotNumber: [id number] Mfg: Pfizer Given Left Deltoid Step 1 of Multi-step with next step required 999 CVX created date: 03/30/2020 consent date: 03/30/2020 administer ed date: 04/12/2020 pneumococcal polysaccharide PPV23 completed pneumococcal polysaccharide vaccine, 23 valent 33 CVX created date: 03/04/2020 administer ed date: 02/23/2014 Pneumococcal conjugate PCV 13 completed pneumococcal conjugate vaccine, 13 valent expiry: 11/24/2020 Mfg: [employer] Given 0.5 ml Left Deltoid intramuscularly 133 CVX created date: 03/05/2020 consent date: 03/05/2020 administer ed date: 03/11/2020 Mental Status Section Date Assessment Total Score Description 11/08/2020 BIMS 15 cognitively int act CAM 0 No delirium ind icated PHQ-9 00 09/29/2020 BIMS 14 cognitively int act CAM 0 No delirium ind icated PHQ-9 00 Insurance Providers Problems Problem # Description Date of onset Resolved Date Code CodeSystem Concern Status 1 COVID-19 021 08/27/[address] completed 2 CONSTIPATION, UNSPECIFIED [address] active 3 RESTLESS LEGS SYNDROME [address] active 4 PERSONAL HISTORY OF COVID-[address] active 5 ANXIETY DISORDER, UNSPECIFIED [address] active 6 HYPERLIPIDEMIA, UNSPECIFIED [address] active 7 MAJOR DEPRESSIVE DISORDER, RECURRENT, UNSPECIFIED 25693171 SNOMED CT active 8 OTHER CERVICAL DISC DEGENERATION, UNSPECIFIED CERVICAL REGION 32453851 SNOMED CT active 9 OTHER INTERVERTEBRAL DISC DEGENERATION, LUMBAR REGION [address] active 10 OTHER MALAISE 600010686 SNOMED CT active 11 [address]NORMAL POSTURE 1718[address]81 SN[address] active 12 ATHEROSCLEROTIC HEART DISEASE OF [place] CORONARY ARTERY WITHOUT ANGINA PECTORIS 282492084770986 SNOMED CT active 13 CHRONIC OBSTRUCTIVE PULMONARY DISEASE, UNSPECIFIED 09844496 SNOMED CT active 14 COVID-19 020 04/21/[address] completed 15 ESSENTIAL (PRIMARY) HYPERTENSION 57179890 SNOMED CT active 16 MUSCLE WEAKNESS (GENERALIZED) 43607919 SNOMED CT active 17 NEED FOR ASSISTANCE AT HOME AND NO OTHER HOUSEHOLD MEMBER ABLE TO RENDER CARE 30051634310315417 SNOMED CT active 18 PARKINSON'S DISEASE 02900777 SNOMED CT active 19 SHORTNESS OF BREATH 123894356 SNOMED CT active 20 TYPE 2 DIABETES MELLITUS WITHOUT COMPLICATIONS 091399288 SNOMED CT active 21 UNSTEADINESS ON FEET 770351099 SNOMED CT active Reason for Referral No Reasons for Referral Entered Social History Social History Observation Description Start Date End Date Code Code System Current Smoking Status Tobacco smoking consumption unknown 111368887 SNOMED CT Sex Assigned At Female 1950 07492-6 LOINC Gender Identity Sexual Orientation Vital Signs Code Code System Vitals Name Values and Units Timing Information 8310-5 LOINC Body Temperature Value=97.3 Units= F 11/08/2020 02072-9 LOINC O2 % BldC Oximetry Value=94.0 Units= % 11/08/2020 2339-0 [facility] Blood Sugar Qmufv=629.0 Units=mg/dL 11/08/2020 52707-9 [facility] Pain Level Value=0.0 11/07/2020 10723-0 [facility] Weight Jayaw=783.4 Units=Lbs 05/2020 9279-1 [facility] Respiratory Rate Value=16.0 Units=/m in 10/26/2020 8462-4 [facility] Blood Pressure-Diastolic Value=87 Un its=mmHg 10/26/2020 8480-6 [facility] Blood Pressure-Systolic Gkyzc=023 Un its=mmHg 10/26/2020 8867-4 [facility] Heart rate Value=69.0 Units=/min 05/2020 8302-2 [facility] Height Value=63.0 Units=Inches 06/25/2020
--- OUTSIDE RECORDS SUMMARY | 2024-12-29 12:34 | XMS_ITS | Encounter Summary ---
Author Organization [facility] Address [address] [place] [address] Care Team Providers Care Meat Packer Name Role Phone Villa Nicolas MD Primary Care Provider [phone] Villa Nicolas MD Unavailable [phone] Montse Celestin RN Unavailable [phone] Barbara Mccann NP Unavailable Unavailable Encounter Details Date Type Department Care Team ([facility] Contact Info) Description 11/29/2023 Abstract [facility] [place] [facility] [address] [facility] [address] [place] [address] Villa Nicolas MD [address] [facility] [address] [place] [address] Social History Tobacco Use Types Packs/Day Years [...] Upcoming Encounters Date Type Department Care Team ([facility] Contact Info) Description 01/01/2025 1:30 PM EDT Office Visit [facility] [address] [place] [address] [place] [address] Fortunato Moreno, YUE [address] [facility] 5 [place] [address] 03/30/2025 1:00 PM EST Office Visit [facility] [place] [facility] [address] [place] [address] [place] [address] Villa Nicolas MD [address] [place] [address] [place] [address] documented as of this encounter Visit Diagnoses Not on filedocumented in this encounter Care Teams Meat Packer Relationship Specialty Start Date End Date Villa Nicolas MD [address] [place] [address] [place] [address] PCP - General Internal Medicine 08/15/22 Villa Nicolas MD [address] [place] [address] [place] [address] PCP - ACO Reach 09/04/22 Montse Celestin, KYLE [address] [place] [address] [place] [address] Registered Nurse Family Medicine 04/06/23 Barbara Mccann NP [address] [place] [address] [place] [address] Nurse Practitioner Neurology 06/17/24 documented as of this encounter
--- OUTSIDE RECORDS SUMMARY | 2024-12-29 12:34 | XMS_ITS | Encounter Summary ---
Author Organization [facility] Address [address] [place] [address] Care Team Providers Care Game Technician Name Role Phone Villa Nicolas MD Primary Care Provider [phone] Villa Nicolas MD Unavailable [phone] Montse Celestin RN Unavailable [phone] Barbara Mccann NP Unavailable Unavailable Encounter Details Date Type Department Care Team ([facility] Contact Info) Description 06/02/2023 Clinisync Result Encounter [facility] External Department Unsolicited Provider, Generic External Data Social History Tobacco Use Types Packs/Day Years [...] Upcoming Encounters Date Type Department Care Team ([facility] Contact Info) Description 01/01/2025 1:30 PM EDT Office Visit [facility] [address] [place] [address] [place] [address] Fortunato Moreno, DPKaren [address] [facility] 5 [place] [address] 03/30/2025 1:00 PM EST Office Visit [facility] [place] [facility] [address] [place] [address] [place] [address] Villa Nicolas MD [address] [place] [address] documented as of this encounter Procedures Procedure Name Priority Date/Time Associated Diagnosis Comments MR LUMBAR SPINE WO CON 06/02/2023 8:00 AM EST documented in this encounter Results * MR LUMBAR SPINE WO CON (06/02/2023 8:00 AM EST) Anatomical Region Laterality Modality Other 06/02/2023 8:00 AM EST Narrative 06/02/2023 8:03 AM EST The [address] [address] Magnetic Resonance Report Signed Patient: MIRNA BOBO MR#: [id number] : 1950 Acct:[id number] Age/Sex: 72 / F ADM Date: 06/01/23 Loc: [facility] Attending Dr: Non-Staff Physician M.DNate Ordering Physician: Physician,Non-Staff MBienvenido Date of Service: 06/01/23 Procedure(s): MR lumbar spine wo con Accession Number(s): [id number] cc: VILLA NICOLAS ; Physician,Non-Staff MBienvenido The [address] [address] Patient Name: MIRNA BOBO MRN: [id number] date: 1950 Sex: F Assigned Patient Location: [facility] Current Patient Location: [facility] Accession/Order Number: [id number] Exam Date: 06/01/2023 12:10 Report Date: 06/02/2023 08:00 At the request of: NON-STAFF PHYSICIAN Procedure: MR lumbar spine wo con EXAMINATION: MR lumbar spine wo con HISTORY: Spinal Stenosis Of Lumbar Region COMPARISON: XR lumbar spine 06/01/2023, CT lumbar spine 10/17/2022 TECHNIQUE: A variety of imaging planes and parameters were utilized for visualization of suspected pathology. FINDINGS: For the purposes of numbering, sagittal T2 image # 8 extends from the T10 vertebral body superiorly to the S3-S4 level inferiorly. PARASPINAL AREA: Normal with no visible mass. BONES: Posterior mechanical fusion of L4-L5-S1 via bilateral pedicle screws and rods. Edema within the marrow cavity adjacent the contiguous endplates of L3 and L4 likely Modic type I degenerative changes. CORD/CAUDA EQUINA: Marked narrowing at the L3-L4 level secondary to disc bulging and ligamentum flavum thickening. DISC LEVELS: 12-L1: No significant disc/facet abnormality, spinal stenosis, or foraminal stenosis. L1-L2: No significant disc/facet abnormality, spinal stenosis, or foraminal stenosis. L2-L3: No significant disc/facet abnormality, spinal stenosis, or foraminal stenosis. L3-L4: Marked central canal narrowing with no CSF surrounding the descending nerve roots. Marked diffuse disc bulging without disc height reduction. Marked ligamentum flavum thickening bilaterally and mild-moderate degenerative facet arthropathy. L4-L5: Mild grade 1 anterolisthesis of L4 on 5 with mild posterior superior disc bulging causing mild foramen narrowing without significant central canal narrowing. Intervertebral disc spacer. L5-S1: Moderate left, mild right foramen narrowing. No significant central canal narrowing. Intervertebral disc spacer with marked disc space narrowing. MR/MR lumbar spine wo con IMPRESSION: 1. Marked central canal narrowing and right foramen narrowing at L3-L4 secondary to marked diffuse disc bulging and marked ligamentum flavum thickening. 2. Posterior mechanical fusion L4-L5-S1. Grade 1 anterolisthesis of L4 on 5 without appreciable change during flexion and extension on the corresponding lumbar spine radiographs. 3. Disc space narrowing and foraminal stenosis L5-S1. Electronically authenticated by: EMERSON CONCEPCION Date: 06/02/2023 08:00 Dictated By: Emerson Concepcion M.D. Signed By: 06/02/23 08 DD/ 08 TD/TT: Welfare Analyst: Procedure Note Radiology, Radiologist, MD - 06/02/2023 [place] [address] Magnetic Resonance Report Signed Patient: MIRNA BOBO WMR#: [id number] : 1Acct:[id number] Age/Sex: 72 / FADM Date: 06/01/23 Loc: RAD Attending Dr: Non-Staff Physician Streeter Ordering Physician: Oz Espinoza M.D. Date of Service: 06/01/23 Procedure(s): MR lumbar spine wo con Accession Number(s): [id number] cc: VILLA NICOLAS ; Physician,Non-Staff Ferdinand [address] [address] Patient Name: MIRNA BOBO MRN: [id number] date: 1950 Sex: F Assigned Patient Location: [facility] Current Patient Location: RAD Accession/Order Number: [id number] Exam Date: 06/01/2023 12:10 Report Date: 06/02/2023 08:00 At the request of: NON-STAFF PHYSICIAN Procedure: MR lumbar spine wo con EXAMINATION: MR lumbar spine wo con HISTORY: Spinal Stenosis Of Lumbar Region COMPARISON: XR lumbar spine 06/01/2023, CT lumbar spine 10/17/2022 TECHNIQUE: A variety of imaging planes and parameters were utilized for visualization of suspected pathology. FINDINGS: For the purposes of numbering, sagittal T2 image # 8 extends from the T10 vertebral body superiorly to the S3-S4 level inferiorly. PARASPINAL AREA: Normal with no visible mass. BONES: Posterior mechanical fusion of L4-L5-S1 via bilateral pediclescrews and rods. Edema within the marrow cavity adjacent the contiguous endplates ofL3 and L4 likely Modic type I degenerative changes. CORD/CAUDA EQUINA: Marked narrowing at the L3-L4 level secondary to disc bulging and ligamentum flavum thickening. DISC LEVELS: 12-L1: No significant disc/facet abnormality, spinal stenosis, orforaminal stenosis. L1-L2: No significant disc/facet abnormality, spinal stenosis, orforaminal stenosis. L2-L3: No significant disc/facet abnormality, spinal stenosis, orforaminal stenosis. L3-L4: Marked central canal narrowing with no CSF surrounding thedescending nerve roots. Marked diffuse disc bulging without disc height reduction.Marked ligamentum flavum thickening bilaterally and mild-moderate degenerativefacet arthropathy. L4-L5: Mild grade 1 anterolisthesis of L4 on 5 with mild posteriorsuperior disc bulging causing mild foramen narrowing without significant centralcanal narrowing. Intervertebral disc spacer. L5-S1: Moderate left, mild right foramen narrowing. No significant central canal narrowing. Intervertebral disc spacer with marked disc spacenarrowing. MR/MR lumbar spine wo con IMPRESSION: 1. Marked central canal narrowing and right foramen narrowing at L3-L4 secondary to marked diffuse disc bulging and marked ligamentum flavum thickening. 2. Posterior mechanical fusion L4-L5-S1. Grade 1 anterolisthesis of L4 on5 without appreciable change during flexion and extension on thecorresponding lumbar spine radiographs. 3. Disc space narrowing and foraminal stenosis L5-S1. Electronically authenticated by: EMERSON CONCEPCION Date: 06/02/2023 08:00 Dictated By: Emerson Concepcion M.D. Signed By:06/02/23802 DD/ 9 TD/TT: Welfare Analyst: us Generic External Data Provider [facility] Final Result documented in this encounter Visit Diagnoses Not on filedocumented in this encounter Care Teams Game Technician Relationship Specialty Start Date End Date Villa Nicolas MD [address] [facility] 110 [place] [address] PCP - General Internal Medicine 08/15/22 Villa Nicolas MD [address] [facility] [address] [place] [address] PCP - ACO Reach 09/04/22 Montse Celestin, KYLE [address] [place] [address] [place] [address] Registered Nurse Family Medicine 04/06/23 Barbara Mccann NP [address] [place] [address] [place] [address] Nurse Practitioner Neurology 06/17/24 documented as of this encounter
--- OUTSIDE RECORDS SUMMARY | 2024-12-29 12:34 | XMS_ITS | Encounter Summary ---
Author Organization [facility] Address [address] [place] [address] Care Team Providers Care Vb Net Programmer Name Role Phone Villa Nicolas MD Primary Care Provider [phone] Villa Nicolas MD Unavailable [phone] Montse Celestin RN Unavailable [phone] Barbara Mccann NP Unavailable Unavailable Encounter Details Date Type Department Care Team (Late Contact Info) Description 07/20/2023 Abstract [facility] [place] [facility] [address] [place] [address] Crystal Cortés, [facility] [address] [place] [address] Social History Tobacco Use Types Packs/Day Years [...] Upcoming Encounters Date Type Department Care Team ([facility] Contact Info) Description 01/01/2025 1:30 PM EDT Office Visit [facility] [address] [facility] [place] [address] [place] [phone] Fortunato Moreno, DPM [address] [facility] 5 [place] [address] 03/30/2025 1:00 PM EST Office Visit [facility] [place] [facility] [address] [facility] [address] [place] [address] Villa Nicolas MD [address] [facility] 110 [place] [address] documented as of this encounter Visit Diagnoses Not on filedocumented in this encounter Care Teams Vb Net Programmer Relationship Specialty Start Date End Date Villa Nicolas MD [address] [facility] [address] [place] [address] PCP - General Internal Medicine 08/15/22 Villa Nicolas MD [address] [facility] [address] [place] [address] PCP - ACO Reach 09/04/22 Montse Celestin, KYLE [address] [facility] [address] [place] [address] Registered Nurse Family Medicine 04/06/23 Barbara Mccann NP [address] [facility] [address] [place] [address] Nurse Practitioner Neurology 06/17/24 documented as of this encounter
--- OUTSIDE RECORDS SUMMARY | 2024-12-29 12:34 | XMS_ITS | Encounter Summary ---
Author Organization [facility] Address [address] [place] [address] Care Team Providers Care Food Science Professor Name Role Phone Villa Nicolas MD Primary Care Provider [phone] Villa Nicolas MD Unavailable [phone] Montse Celestin RN Unavailable [phone] Barbara Mccann NP Unavailable Unavailable Encounter Details Date Type Department Care Team (Late Contact Info) Description 03/30/2023 Orders Only [facility] [place] [facility] [address] [facility] [place] [address] [place] [address] A, Unknown Practice [address] [place], [place] [address] Social History Tobacco Use Types Packs/Day Years [...] PODIATRY [address] [place] [address] [place] [address] Fortunato Moreno, DPM [address] [facility] 5 [place] [address] 03/30/2025 1:00 PM EST Office Visit [facility] [place] [facility] [address] [facility] [address] [place] [address] Villa Nicolas MD [address] [facility] [address] [place] [address] documented as of this encounter Procedures Procedure Name Priority Date/Time Associated Diagnosis Comments XR CHEST 1 VIEW Routine 03/29/2023 10:45 AM EST documented in this encounter Results * XR chest 1 view (03/29/2023 10:45 AM EST) Anatomical Region Laterality Modality Chest Radiographic Peg ging us Unknown Practice A IMG XR PROCEDURES Final Resul t documented in this encounter Visit Diagnoses Not on filedocumented in this encounter Care Teams Food Science Professor Relationship Specialty Start Date End Date Villa Nicolas MD [address] [facility] [address] [place] [address] PCP - General Internal Medicine 08/15/22 Villa Nicolas MD [address] [facility] [address] [place] [address] PCP - ACO Reach 09/04/22 Montse Celestin, KYLE [address] [place] [address] [place] [address] Registered Nurse Family Medicine 04/06/23 Barbara Mccann NP [address] [place] [address] [place] [address] Nurse Practitioner Neurology 06/17/24 documented as of this encounter
--- OUTSIDE RECORDS SUMMARY | 2024-12-29 12:34 | XMS_ITS | Encounter Summary ---
Author Organization [facility] Address [address] [place] [address] Care Team Providers Care Engraver Lettering Name Role Phone Villa Nicolas MD Primary Care Provider [phone] Villa Nicolas MD Unavailable [phone] Montse Celestin RN Unavailable [phone] Barbara Mccann NP Unavailable Unavailable Encounter Details Date Type Department Care Team (Late Contact Info) Description 06/13/2023 Abstract [facility] [place] [facility] 112 [facility] 110 [place] [address] Villa Nicolas MD 112 [facility] 110 [place], [place] [address] Social History Tobacco Use Types Packs/Day Years [...] EDT Office Visit [facility] 112 [facility] [address] [place] [address] Fortunato Moreno, DPM [address] [facility] 5 [place] [address] 03/30/2025 1:00 PM EST Office [facility] [place] [facility] [address] [facility] [address] [place] [address] Villa Nicolas MD [address] [facility] 110 [place] [address] documented as of this encounter Visit Diagnoses Not on filedocumented in this encounter Care Teams Engraver Lettering Relationship Specialty Start Date End Date Villa Nicolas MD [address] [facility] 110 [place] [address] PCP - General Internal Medicine 08/15/22 Villa Nicolas MD [address] [facility] 110 [place] [address] PCP - ACO Reach 09/04/22 Montse Celestin RN [address] [facility] [address] [place] [address] Registered Nurse Family Medicine 04/06/23 Barbara Mccann NP [address] [facility] [address] [place] [address] Nurse Practitioner Neurology 06/17/24 documented as of this encounter
--- OUTSIDE RECORDS SUMMARY | 2024-12-29 12:34 | XMS_ITS | Encounter Summary ---
Author Organization [facility] Address [address] [place] [address] Care Team Providers Care Match Marker Name Role Phone Villa Nicolas MD Primary Care Provider [phone] Villa Nicolas MD Unavailable [phone] Montse Celestin RN Unavailable [phone] Barbara Mccann NP Unavailable Unavailable Encounter Details Date Type Department Care Team (Late Contact Info) Description 06/07/2023 Abstract [facility] [place] [facility] 112 [facility] 110 [place] [address] Villa Nicolas MD 112 [facility] 110 [place], [place] [address] Social History Tobacco Use Types Packs/Day Years [...] Upcoming Encounters Date Type Department Care Team ([facility] Contact Info) Description 01/01/2025 1:30 PM EDT Office Visit [facility] [address] [facility] [address] [place] [address] Fortunato Moreno, DPM 3[address] [facility] 5 [place] [address] 03/30/2025 1:00 PM EST [facility] [place] [facility] [address] [facility] [address] [place] [address] Villa Nicolas MD [address] [facility] [address] [place] [address] documented as of this encounter Visit Diagnoses Not on filedocumented in this encounter Care Teams Match Marker Relationship Specialty Start Date End Date Villa Nicolas MD [address] [facility] [address] [place] [address] PCP - General Internal Medicine 08/15/22 Villa Nicolas MD [address] [facility] [address] [place] [address] PCP - ACO Reach 09/04/22 Montse Celestin RN [address] [facility] [address] [place] [address] Registered Nurse Family Medicine 04/06/23 Barbara Mccann NP [address] [facility] [address] [place] [address] Nurse Practitioner Neurology 06/17/24 documented as of this encounter
--- OUTSIDE RECORDS SUMMARY | 2024-12-29 12:34 | XMS_ITS | Encounter Summary ---
Author Organization [facility] Address [address] [place] [address] Care Team Providers Care Carpenters Name Role Phone Villa Nicolas MD Primary Care Provider [phone] Villa Nicolas MD Unavailable [phone] Montse Celestin RN Unavailable [phone] Barbara Mccann NP Unavailable Unavailable Encounter Details Date Type Department Care Team (Late Contact Info) Description 06/07/2023 Abstract [facility] [place] [facility] 112 [facility] 110 [place] [address] Villa Nicolas MD 112 [facility] 110 [place], [place] [address] Social History Tobacco Use Types Packs/Day Years [...] Upcoming Encounters Date Type Department Care Team ([facility] [address] Contact Info) Description 01/01/2025 1:30 PM EDT Office Visit [facility] 112 [facility] 120 [place] [phone] Fortunato Moreno, DPM [address] [facility] [place] 5 [place] [address] 03/30/2025 1:00 PM EST [facility] [place] [facility] [address] [facility] 110 [place] [address] Villa Nicolas MD [address] [facility] 110 [place] [address] documented as of this encounter Visit Diagnoses Not on filedocumented in this encounter Care Teams Carpenters Relationship Specialty Start Date End Date Villa Nicolas MD [address] [facility] 110 [place] [address] PCP - General Internal Medicine 08/15/22 Villa Nicolas MD [address] [facility] 110 [place] [address] PCP - ACO Reach 09/04/22 Montse Celestin RN [address] [facility] [address] [place] [address] Registered Nurse Family Medicine 04/06/23 Barbara Mccann NP [address] [facility] [address] [place] [address] Nurse Practitioner Neurology 06/17/24 documented as of this encounter
--- OUTSIDE RECORDS SUMMARY | 2024-12-29 12:34 | XMS_ITS | Encounter Summary ---
Author Organization [facility] Address [address] [facility] [place] [address] Care Team Providers Care Safe And Vault Service Mechanic Name Role Phone Villa Nicolas MD Primary Care Provider [phone] Villa Nicolas MD Unavailable [phone] Montse Celestin RN Unavailable [phone] Barbara Mccann NP Unavailable Unavailable Encounter Details Date Type Department Care Team (Late st Contact Info) Description 06/25/2023 Abstract [facility] [place] [facility] [address] [facility] [address] [place] [address] Villa Nicolas MD [address] [facility] 110 [place] [address] Social History Tobacco Use Types Packs/Day Years [...] on file documented as of this encounter Functional Status * Over the past 2 weeks, how often have you been bothered by any of the following problems? Question Answer Date of Assessment Author Little interest or pleasure in doing things Not at all 06/27/2023 1:00 PM EDT Dacia Schaeffer MA Feeling down, depressed, or hopeless Not at all 06/27/2023 1:00 PM EDT Dacia Schaeffer MA Patient Health Questionnaire -2 Score 0 06/27/2023 1:00 PM EDT Dacia Schaeffer MA documented as of this encounter Plan of Treatment Upcoming Encounters Date Type Department Care Team (Late st Contact Info) Description 01/01/2025 1:30 PM EDT Office Visit [facility] [address] [place] [address] [place] [address] Fortunato Moreno, DPKaren 3006 [facility] [place] [address] [place] [address] 03/30/2025 1:00 PM EST Office Visit [facility] [place] [facility] [address] [place] [address] [place] [address] Villa Nicolas MD [address] [place] [address] [place] [address] documented as of this encounter Visit Diagnoses Not on filedocumented in this encounter Care Teams Safe And Vault Service Mechanic Relationship Specialty Start Date End Date Villa Nicolas MD [address] [place] [address] [place] [address] PCP - General Internal Medicine 08/15/22 Villa Nicolas MD [address] [place] [address] [place] [address] PCP - ACO Reach 09/04/22 Montse Celestin, KYLE [address] [place] [address] [place] [address] Registered Nurse Family Medicine 04/06/23 Barbara Mccann NP [address] [place] [address] [place] [address] Nurse Practitioner Neurology 06/17/24 documented as of this encounter
--- OUTSIDE RECORDS SUMMARY | 2024-12-29 12:34 | XMS_ITS | Encounter Summary ---
Author Organization [facility] Address [address] [place] [address] Care Team Providers Care Trimming Assembler Name Role Phone Villa Nicolas MD Primary Care Provider [phone] Villa Nicolas MD Unavailable [phone] Montse Celestin RN Unavailable [phone] Barbara Mccann NP Unavailable Unavailable Encounter Details Date Type Department Care Team (Late Contact Info) Description 12/14/2022 Abstract [facility] [place] [facility] [address] [facility] 110 [place] [address] Villa Nicolas MD 112 [facility] 110 [place], [place] [address] Social History Tobacco Use Types Packs/Day Years [...] Upcoming Encounters Date Type Department Care Team ([facility] Contact Info) Description 01/01/2025 1:30 PM EDT Office Visit [facility] [address] [facility] [address] [place] [phone] Fortunato Moreno, DPM 3006 [facility] 5 [place] [address] 03/30/2025 1:00 PM EST Office [facility] [place] [facility] [address] [facility] 110 [place] [address] Villa Nicolas MD [address] [facility] 110 [place] [address] documented as of this encounter Visit Diagnoses Not on filedocumented in this encounter Care Teams Trimming Assembler Relationship Specialty Start Date End Date Villa Nicolas MD [address] [facility] 110 [place] [address] PCP - General Internal Medicine 08/15/22 Villa Nicolas MD [address] [facility] 110 [place] [address] PCP - ACO Reach 09/04/22 Montse Celestin RN [address] [facility] 230 [place] [address] Registered Nurse Family Medicine 04/06/23 Barbara Mccann NP [address] [facility] [address] [place] [address] Nurse Practitioner Neurology 06/17/24 documented as of this encounter
--- OUTSIDE RECORDS SUMMARY | 2024-12-29 12:34 | XMS_ITS | Encounter Summary ---
Author Organization [facility] Address [address] [place] [address] Care Team Providers Care Harness Placer Name Role Phone Villa Nicolas MD Primary Care Provider [phone] Villa Nicolas MD Unavailable [phone] Montse Celestin RN Unavailable [phone] Barbara Mccann NP Unavailable Unavailable Encounter Details Date Type Department Care Team ([facility] Contact Info) Description 12/06/2023 Abstract [facility] [place] [facility] [address] [facility] 110 [place] [address] Villa Nicolas MD [address] [facility] 110 [place] [address] Social History Tobacco Use Types Packs/Day Years [...] Upcoming Encounters Date Type Department Care Team ([facility] Contact Info) Description 01/01/2025 1:30 PM EDT Office Visit [facility] [address] [place] [address] [place] [address] Fortunato Moreno, YUE 3006 [facility] 5 [place] [address] 03/30/2025 1:00 PM EST Office Visit [facility] [place] [facility] [address] [place] [address] [place] [address] Villa Nicolas MD [address] [place] [address] [place] [address] documented as of this encounter Visit Diagnoses Not on filedocumented in this encounter Care Teams Harness Placer Relationship Specialty Start Date End Date Villa Nicolas MD [address] [place] [address] [place] [address] PCP - General Internal Medicine 08/15/22 Villa Nicolas MD [address] [place] [address] [place] [address] PCP - ACO Reach 09/04/22 Monste Celestin, KYLE [address] [place] [address] [place] [address] Registered Nurse Family Medicine 04/06/23 Barbara Mccann NP [address] [place] [address] [place] [address] Nurse Practitioner Neurology 06/17/24 documented as of this encounter
--- OUTSIDE RECORDS SUMMARY | 2024-12-29 12:34 | XMS_ITS | Encounter Summary ---
Author Organization [facility] Address [address] [place] [address] Care Team Providers Care Underwear Cutter Name Role Phone Villa Nicolas MD Primary Care Provider Villa Nicolas MD Unavailable [phone] Montse Celestin RN Unavailable [phone] Barbara Mccann NP Unavailable Unavailable Encounter Details Date Type Department Care Team ([facility] Contact Info) Description 06/02/2023 Clinisync Result [...] [place] [address] Fortunato Moreno, DPKaren 3006 [facility] 5 [place] [address] 03/30/2025 1:00 PM EST Office Visit [facility] [place] [facility] [address] [place] [address] [place] [address] Villa Nicolas MD 112 [place] [address] documented as of this encounter Procedures Procedure Name Priority Date/Time Associated Diagnosis Comments XR LUMBAR 2V FLEX/EXT 06/02/2023 7:48 AM EST documented in this encounter Results * XR LUMBAR 2V FLEX/EXT (06/02/2023 7:48 AM EST) Anatomical Region Laterality Modality Radiographic Peg ging 06/02/2023 7:48 AM EST Narrative 06/02/2023 7:50 AM EST [address] [address] XRay Report Signed Patient: MIRNA BOBO MR#: [id number] : 1950 Acct:[id number] Age/Sex: 72 / F ADM Date: 06/01/23 Loc: RAD Attending Dr: Non-Staff Physician M.DNate Ordering Physician: Physician,Non-Staff MBienvenido Date of Service: 06/01/23 Procedure(s): XR lumbar spine bending only Accession Number(s): [id number] cc: VILLA NICOLAS ; Physician,Non-Staff MBienvenido [address] [address] Patient Name: MIRNA BOBO MRN: [id number] date: 1950 Sex: F Assigned Patient Location: [facility] Current Patient Location: Accession/Order Number: [id number] Exam Date: 06/01/2023 12:45 Report Date: 06/02/2023 07:48 At the request of: NON-STAFF PHYSICIAN Procedure: XR lumbar spine bending only EXAMINATION: XR lumbar spine bending only HISTORY: Spinal Stenosis Of Lumbar Region COMPARISON: No relevant comparison available. FINDINGS: BONES: Only lateral views during flexion-extension were obtained. Posterior mechanical fusion L4-L5-S1 via bilateral pedicle screws and rods; no appreciable hardware or bone. Grade 1 anterolisthesis of L4 on 5. Mild facet arthropathy resulting in bone encroachment on the L4-L5 and L5-S1 neural foramen. DISC SPACES: Moderate marked narrowing L3-L4 through L5-S1. PARASPINOUS: Marked atherosclerotic disease of aorta without appreciable aneurysm. OTHER: Negative. XR/XR lumbar spine bending only IMPRESSION: 1. Mechanical fusion L4-L5-S1 without evidence of hardware failure. 2. Multilevel degenerative disc disease and mild facet arthropathy. Electronically authenticated by: EMERSON CONCEPCION Date: 06/02/2023 07:48 Dictated By: Emerson Concepcion M.D. Signed By: 06/02/23 0750 DD/ 0748 TD/TT: Strategic Consultant: Procedure Note Radiology, Radiologist, MD - 06/04/2023 [place] [address] XRay Report Signed Patient: MIRNA BOBO WMR#: [id number] : 1950cct:[id number] Age/Sex: 72 / FADM Date: 06/01/23 Loc: PRINCESS Attending Dr: Non-Staff Physician M.DNate Ordering Physician: Physician,Non-Staff M.DNate Date of Service: 06/01/23 Procedure(s): XR lumbar spine bending only Accession Number(s): [id number] cc: VILLA NICOLAS ; Physician,Non-Staff MBienvenido [address] [place] [address] Patient Name: MINRA BOBO MRN: [facility]:[id number] date: 1950 Sex: F Assigned Patient Location: [facility] Current Patient Location: Accession/Order Number: [id number] Exam Date: 06/01/2023 12:45 Report Date: 06/02/2023 07:48 At the request of: NON-STAFF PHYSICIAN Procedure: XR lumbar spine bending only EXAMINATION: XR lumbar spine bending only HISTORY: Spinal Stenosis Of Lumbar Region COMPARISON: No relevant comparison available. FINDINGS: BONES: Only lateral views during flexion-extension were obtained.Posterior mechanical fusion L4-L5-S1 via bilateral pedicle screws and rods; no appreciable hardware or bone. Grade 1 anterolisthesis of L4 on 5. Mildfacet arthropathy resulting in bone encroachment on the L4-L5 and L5-S1 neural foramen. DISC SPACES: Moderate marked narrowing L3-L4 through L5-S1. PARASPINOUS: Marked atherosclerotic disease of aorta without appreciable aneurysm. OTHER: Negative. XR/XR lumbar spine bending only IMPRESSION: 1. Mechanical fusion L4-L5-S1 without evidence of hardware failure. 2. Multilevel degenerative disc disease and mild facet arthropathy. Electronically authenticated by: EMERSON CONCEPCION Date: 06/02/2023 07:48 Dictated By: Emerson Concepcion M.D. Signed By:06/02/23 0750 DD/ 0748 TD/TT: Strategic Consultant: us Generic External Data Provider IMG XR PROCEDURES Final Result documented in this encounter Visit Diagnoses Not on filedocumented in this encounter Care Teams Underwear Cutter Relationship Specialty Start Date End Date Villa Nicolas MD [address] [place] [address] [place] [address] PCP - General Internal Medicine 08/15/22 Villa Nicolas MD [address] [place] [address] [place] [address] PCP - ACO Reach 09/04/22 Montse Celestin, KYLE [address] [facility] 230 [place] [address] Registered Nurse Family Medicine 04/06/23 Barbara Mccann NP [address] [place] [address] [place] [address] Nurse Practitioner Neurology 06/17/24 documented as of this encounter
--- OUTSIDE RECORDS SUMMARY | 2024-12-29 12:34 | XMS_ITS | Encounter Summary ---
Author Organization [facility] Address [address] [place] [address] Care Team Providers Care Scale Tank Operator Name Role Phone Villa Nicolas MD Primary Care Provider [phone] Villa Nicolas MD Unavailable [phone] Montse Celestin RN Unavailable [phone] Barbara Mccann NP Unavailable Unavailable Encounter Details Date Type Department Care Team (Late Contact Info) Description 04/02/2023 Orders Only [facility] [place] [facility] [address] [facility] [place] [address] [place] [address] A, Unknown Practice [address] [place], [place] [address] Social History Tobacco Use Types Packs/Day Years [...] PODIATRY [address] [place] [address] [place] [address] Fortunato Moreno, DPM 3006 [facility] 5 [place] [address] 03/30/2025 1:00 PM EST Office Visit [facility] [place] [facility] [address] [facility] [address] [place] [address] [place] Nicolas MD [address] [facility] 110 [place] [address] documented as of this encounter Procedures Procedure Name Priority Date/Time Associated Diagnosis Comments XR CHEST 2 VIEWS Routine 03/29/2023 11:41 AM EST documented in this encounter Results * XR chest 2 views (03/29/2023 11:41 AM EST) Anatomical Region Laterality Modality Chest Radiographic Peg ging us Unknown Practice A IMG XR PROCEDURES Final Resul t documented in this encounter Visit Diagnoses Not on filedocumented in this encounter Care Teams Scale Tank Operator Relationship Specialty Start Date End Date Villa Nicolas MD [address] [facility] [address] [place] [address] PCP - General Internal Medicine 08/15/22 Villa Nicolas MD [address] [facility] [address] [place] [address] PCP - ACO Reach 09/04/22 Montse Celestin, KYLE [address] [place] [address] [place] [address] Registered Nurse Family Medicine 04/06/23 Barbara Mccann NP [address] [place] [address] [place] [address] Nurse Practitioner Neurology 06/17/24 documented as of this encounter
--- OUTSIDE RECORDS SUMMARY | 2024-12-29 12:34 | XMS_ITS | Encounter Summary ---
Author Organization [facility] Address [address] [place] [address] Care Team Providers Care Community Product Specialist Name Role Phone Villa Nicolas MD Primary Care Provider [phone] Villa Nicolas MD Unavailable [phone] Motnse Celestin RN Unavailable [phone] Barbara Mccann NP Unavailable Unavailable Encounter Details Date Type Department Care Team ([facility] Contact Info) Description 12/06/2022 Clinisync Result Encounter [facility] External Department Unsolicited [...] Upcoming Encounters Date Type Department Care Team ([facility] Contact Info) Description 01/01/2025 1:30 PM EDT Office Visit [facility] [address] [place] [address] [place] [address] Fortunato Moreno DPM [facility] 5 [place] [address] 03/30/2025 1:00 PM EST Office Visit [facility] [place] [facility] [address] [place] [address] [place] [address] [place] Nicolas MD 112 [place] [address] documented as of this encounter Procedures Procedure Name Priority Date/Time Associated Diagnosis Comments NM DANUTA PERF SPECT REST STR 12/06/2022 2:21 PM EDT documented in this encounter Results * NM DANUTA PERF SPECT REST STR (12/06/2022 2:21 PM EDT) Anatomical Region Laterality Modality Other 12/06/2022 2:21 PM EDT Narrative 12/06/2022 2:21 PM EDT [address] [address] Nuclear Medicine Report Signed Patient: MIRNA BOBO MR#: [id number] : 1950 Acct:[id number] Age/Sex: 71 / F ADM Date: 12/05/22 Loc: NM Attending Dr: Maddie Lopez NP Ordering Physician: Maddie Lopez NP Date of Service: 12/05/22 Procedure(s): NM danuta perf SPECT rest str Accession Number(s): [id number] cc: VILLA NICOLAS ; Maddie Lopez NP Patient: MIRNA BOBO Exam Date: 12/05/2022 : 1950 Gender:F Ordering : Nate WAYNE CEE CORRALES Admission #: [id number] Family : DR VILLA NICOLAS M.D. Order #: [id number] CLICK HERE TO VIEW EXAM RADIOLOGY REPORT PROCEDURE: NM DANUTA PERF SPECT REST STR COMPARISON: None. INDICATIONS: CORONARY ARTERY DISEASE, PRE PROCEDURE CARDIOVASCULAR EXAM TECHNIQUE: Exam Description: Stress/Rest one day protocol gated SPECT Rest Imagin.9 mCi Tc-99m Cardiolite IV on 12/05/2022 Stress Imaging 30.3 mCi Tc-99m Cardiolite IV on 12/05/2022 Exercise Protocol: 0.4 mg Lexiscan given IV Heart Rate (bpm): Rest: 63 Max: 102 PMHR: 68 Blood Pressure: Rest: 108/60 Max: 128/62 Symptoms: Rest and peak stress ECG findings were pending and the exercise portion of the study was pending per attending physician Dr. AGUILERA . For more details please see separate cardiac stress test report. FINDINGS: QUALITY OF STUDY: Good. PERFUSION DEFECT: LOCATION: Basal inferior. Mid-inferior. SIZE: Small (1-2 segments). SEVERITY: Mild. TYPE: Persistent. WALL MOTION: Mild hypokinesis: LV SIZE: Normal. 91 mL. TID / TCD: None; 0.9 LVEF: Abnormal. Calculated EF 53%. SUMMARY: Myocardial perfusion imaging study has ABNORMAL findings. CONCLUSION: 1. Small fixed defect in the inferior wall possibly diaphragmatic attenuation artifact 2. Borderline Low left ventricular ejection fraction of 53% 3. Pending exercise test Dictated by: Azael Syed MD on 12/06/2022 at 14:18 Approved by: Azael Syed MD on 12/06/2022 at 14:21 Dictated By: Azael Syed M.D. Signed By: 12/06/22 142 DD/ 20 TD/TT: Cfo: Procedure Note Radiology, Radiologist, MD - 12/15/2022 [place] [address] Nuclear Medicine Report Signed Patient: MIRNA BOBO WMR#: [id number] : 1950cct:[id number] Age/Sex: 71 / FADM Date: 12/05/22 Loc: NM Attending Dr: Maddie Lopez NP Ordering Physician: Maddie Lopez NP Date of Service: 12/05/22 Procedure(s): NM danuta perf SPECT rest str Accession Number(s): [id number] cc: VILLA NICOLAS ; Maddie Lopez NP Patient: MIRNA BOBO Exam Date: 12/05/2022 : 1950 Gender:F Ordering : CHANELMICHAELHernan LOPEZ NP Admission #:[id number] Family : DR VILLA NICOLAS M.D. Order #: [id number] CLICK HERE TO VIEW EXAM RADIOLOGY REPORT PROCEDURE: NM DANUTA PERF SPECT REST STR COMPARISON: None. INDICATIONS: CORONARY ARTERY DISEASE, PRE PROCEDURE CARDIOVASCULAREXAM TECHNIQUE: Exam Description: Stress/Rest one day protocol gated SPECT Rest Imagin.9 mCi Tc-99m Cardiolite IV on 12/05/2022 Stress Imaging 30.3 mCi Tc-99m Cardiolite IV on 12/05/2022 Exercise Protocol: 0.4 mg Lexiscan given IV Heart Rate (bpm): Rest: 63 Max: 102 PMHR: 68 Blood Pressure: Rest: 108/60 Max: 128/62 Symptoms: Rest and peak stress ECG findings were pending and the exercise portion ofthe study was pending per attending physician [facility] . For more detailsplease see separate cardiac stress test report. FINDINGS: QUALITY OF STUDY: Good. PERFUSION DEFECT: LOCATION: Basal inferior. Mid-inferior. SIZE: Small (1-2 segments). SEVERITY: Mild. TYPE: Persistent. WALL MOTION: Mild hypokinesis: LV SIZE: Normal. 91 mL. TID / TCD: None; 0.9 LVEF: Abnormal. Calculated EF 53%. SUMMARY: Myocardial perfusion imaging study has ABNORMAL findings. CONCLUSION: 1. Small fixed defect in the inferior wall possibly diaphragmaticattenuation artifact 2. Borderline Low left ventricular ejection fraction of 53% 3. Pending exercise test Dictated by: Azael Syed MD on 12/06/2022 at 14:18 Approved by: Azael Syed MD on 12/06/2022 at 14:21 Dictated By: Azael Syed M.D. Signed By:12/06/221421 DD/ 20 TD/TT: Cfo: Generic External Data Provider [facility] Final Result documented in this encounter Visit Diagnoses Not on filedocumented in this encounter Care Teams Community Product Specialist Relationship Specialty Start Date End Date [place] Nicolas MD [address] [facility] 110 [place] [address] PCP - General Internal Medicine 08/15/22 [place] Nicolas MD [address] [facility] [address] [place] [address] PCP - ACO Reach 09/04/22 Montse Celestin, RN [address] [place] [address] [place] [address] Registered Nurse Family Medicine 04/06/23 Barbara Mccann NP [address] [place] [id number] Nurse Practitioner Neurology 06/17/24 documented as of this encounter
--- OUTSIDE RECORDS SUMMARY | 2024-12-29 12:34 | XMS_ITS | Encounter Summary ---
Author Organization [facility] Address [address] [place] [address] Care Team Providers Care Basketball Referee Name Role Phone Villa Nicolas MD Primary Care Provider [phone] Villa Nicolas MD Unavailable [phone] Montse Celestin RN Unavailable [phone] Barbara Mccann NP Unavailable Unavailable Encounter Details Date Type Department Care Team ([facility] Contact Info) Description 07/03/2023 Abstract [facility] [place] [facility] [address] [facility] 110 [place] [address] [place] Nicolas MD [address] [facility] 110 [place] [address] Social History Tobacco Use Types Packs/Day Years [...] Upcoming Encounters Date Type Department Care Team ([facility] Contact Info) Description 01/01/2025 1:30 PM EDT Office Visit [facility] [address] [place] [address] [place] [address] Fortunato Moreno, YUE 3006 [facility] [place] [address] 03/30/2025 1:00 PM EST Office Visit [facility] [place] [facility] [address] [place] [address] [place] [address] [place] Nicolas MD [address] [place] [address] [place] [address] documented as of this encounter Visit Diagnoses Not on filedocumented in this encounter Care Teams Basketball Referee Relationship Specialty Start Date End Date [place] Nicolas MD [address] [place] [address] [place] [address] PCP - General Internal Medicine 08/15/22 Villa Nicolas MD [address] [place] [address] [place] [address] PCP - ACO Reach 09/04/22 Montse Celestin, KYLE [address] [place] [address] [place] [address] Registered Nurse Family Medicine 04/06/23 Barbara Mccann NP [address] [place] [address] [place] [address] Nurse Practitioner Neurology 06/17/24 documented as of this encounter
--- OUTSIDE RECORDS SUMMARY | 2024-12-29 12:34 | XMS_ITS | Encounter Summary ---
Author Organization [facility] Address [address] [place] [address] Care Team Providers Care Chain Person Name Role Phone Villa Nicolas MD Primary Care Provider [phone] Villa Nicolas MD Unavailable [phone] Montse Celestin RN Unavailable [phone] Barbara Mccann NP Unavailable Unavailable Encounter Details Date Type Department Care Team ([facility] Contact Info) Description 07/18/2023 Abstract [facility] [place] [facility] [address] [facility] [address] [place] [address] Villa Nicolas MD [address] [facility] 110 [place] [address] Social History Tobacco Use Types Packs/Day Years [...] Upcoming Encounters Date Type Department Care Team ([facility] Contact Info) Description 01/01/2025 1:30 PM EDT Office Visit [facility] [address] [place] [address] [place] [address] Fortunato Moreno, YUE [address] [facility] 5 [place] [address] 03/30/2025 1:00 PM EST Office Visit [facility] [place] [facility] [address] [place] [address] [place] [address] Villa Nicolas MD [address] [place] [address] [place] [address] documented as of this encounter Visit Diagnoses Not on filedocumented in this encounter Care Teams Chain Person Relationship Specialty Start Date End Date Villa Nicolas MD [address] [place] [address] [place] [address] PCP - General Internal Medicine 08/15/22 Villa Nicolas MD [address] [place] [address] [place] [address] PCP - ACO Reach 09/04/22 Montse Celestin, KYLE [address] [place] [address] [place] [address] Registered Nurse Family Medicine 04/06/23 Barbara Mccann NP [address] [place] [address] [place] [address] Nurse Practitioner Neurology 06/17/24 documented as of this encounter
--- OUTSIDE RECORDS SUMMARY | 2024-12-29 12:34 | XMS_ITS | Encounter Summary ---
Author Organization [facility] Address [address] [place] [address] Care Team Providers Care Ten Pin Bowling Centre Manager Name Role Phone Villa Nicolas MD Primary Care Provider [phone] Villa Nicolas MD Unavailable [phone] Montse Celestin RN Unavailable [phone] Barbara Mccann NP Unavailable Unavailable Encounter Details Date Type Department Care Team ([facility] Contact Info) Description 11/01/2023 Abstract [facility] [place] [facility] [address] [facility] 110 [place] [address] Villa Nicolas MD [address] [facility] 110 [place] [address] Social History Tobacco Use Types Packs/Day Years [...] [facility] [address] [place] [address] [place] [address] Fortunato Moreno, YUE 3006 [facility] 5 [place] [address] 03/30/2025 1:00 PM EST Office Visit [facility] [place] [facility] [address] [place] [address] [place] [address] Villa Nicolas MD [address] [place] [address] [place] [address] documented as of this encounter Visit Diagnoses Not on filedocumented in this encounter Care Teams Ten [place] Manager Relationship Specialty Start Date End Date Villa Nicolas MD [address] [place] [address] [place] [address] PCP - General Internal Medicine 08/15/22 Villa Nicolas MD [address] [place] [address] [place] [address] PCP - ACO Reach 09/04/22 Montse Celestin, KYLE [address] [place] [address] [place] [address] Registered Nurse Family Medicine 04/06/23 Barbara Mccann NP [address] [place] [address] [place] [address] Nurse Practitioner Neurology 06/17/24 documented as of this encounter
--- OUTSIDE RECORDS SUMMARY | 2024-12-29 12:34 | XMS_ITS | Encounter Summary ---
Author Organization [facility] Address [address] [place] [address] Care Team Providers Care Digital Imager Name Role Phone Villa Nicolas MD Primary Care Provider Villa Nicolas MD Unavailable [phone] Montse Celestin RN Unavailable [phone] Barbara Mccann NP Unavailable Unavailable Encounter Details Date Type Department Care Team ([facility] Contact Info) Description 07/24/2023 Abstract [facility] [place] [facility] [address] [facility] 110 [place] [address] Villa Nicolas MD [address] [facility] 110 [place] [address] Social History Tobacco Use Types Packs/Day Years [...] Upcoming Encounters Date Type Department Care Team ([facility] Contact Info) Description 01/01/2025 1:30 PM EDT Office Visit [facility] [address] [place] [address] [place] [address] Fortunato Moreno, YUE 3006 [facility] 5 [place] [address] 03/30/2025 1:00 PM EST Office Visit [facility] [place] [facility] [address] [place] [address] [place] [address] Villa Nicolas MD [address] [place] [address] [place] [address] documented as of this encounter Visit Diagnoses Not on filedocumented in this encounter Care Teams Digital Imager Relationship Specialty Start Date End Date Villa Nicolas MD [address] [place] [address] [place] [address] PCP - General Internal Medicine 08/15/22 Villa Nicolas MD [address] [place] [address] [place] [address] PCP - ACO Reach 09/04/22 Montse Celestin, KYLE [address] [place] [address] [place] [address] Registered Nurse Family Medicine 04/06/23 Barbara Mccann NP [address] [place] [address] [place] [address] Nurse Practitioner Neurology 06/17/24 documented as of this encounter
--- OUTSIDE RECORDS SUMMARY | 2024-12-29 12:34 | XMS_ITS | Encounter Summary ---
Author Organization [facility] Address [address] [place] [address] Care Team Providers Care Living Advisor Name Role Phone Villa Nicolas MD Primary Care Provider Villa Nicolas MD Unavailable [phone] Montse Celestin RN Unavailable [phone] Barbara Mccann NP Unavailable Unavailable Encounter Details Date Type Department Care Team ([facility] Contact Info) Description 07/23/2023 Abstract [facility] [place] [facility] [address] [facility] 110 [place] [address] Villa Nicolas MD [address] [facility] 110 [place] [address] Social History Tobacco Use Types Packs/Day Years [...] Upcoming Encounters Date Type Department Care Team ([facility] Contact Info) Description 01/01/2025 1:30 PM EDT Office Visit [facility] [address] [place] [address] [place] [address] Fortunato Moreno, YUE 3006 [facility] 5 [place] [address] 03/30/2025 1:00 PM EST Office Visit [facility] [place] [facility] [address] [place] [address] [place] [address] Villa Nicolas MD [address] [place] [address] [place] [address] documented as of this encounter Visit Diagnoses Not on filedocumented in this encounter Care Teams Living Advisor Relationship Specialty Start Date End Date Villa Nicolas MD [address] [place] [address] [place] [address] PCP - General Internal Medicine 08/15/22 Villa Nicolas MD [address] [place] [address] [place] [address] PCP - ACO Reach 09/04/22 Montse Celestin, KYLE [address] [place] [address] [place] [address] Registered Nurse Family Medicine 04/06/23 Barabra Mccann NP [address] [place] [address] [place] [address] Nurse Practitioner Neurology 06/17/24 documented as of this encounter
--- OUTSIDE RECORDS SUMMARY | 2024-12-29 12:34 | XMS_ITS | Encounter Summary ---
Author Organization [facility] Address [address] [place] [address] Care Team Providers Care One Piece Expansion Maker Hand Name Role Phone Villa Nicolas MD Primary Care Provider [phone] Villa Nicolas MD Unavailable [phone] Montse Celestin RN Unavailable [phone] Barbara Mccann NP Unavailable Unavailable Encounter Details Date Type Department Care Team ([facility] Contact Info) Description 05/14/2024 Abstract [facility] [place] [facility] [address] [facility] 110 [place] [address] Villa Nicolas MD [address] [facility] 110 [place] [address] Social History Tobacco Use Types Packs/Day Years [...] [facility] [address] [place] [address] [place] [address] Fortunato Moreno, YUE [address] [facility] 5 [place] [address] 03/30/2025 1:00 PM EST Office Visit [facility] [place] [facility] [address] [place] [address] [place] [address] Villa Nicolas MD [address] [place] [address] [place] [address] documented as of this encounter Visit Diagnoses Not on filedocumented in this encounter Care Teams One Piece Expansion Maker Hand Relationship Specialty Start Date End Date Villa Nicolas MD [address] [place] [address] [place] [address] PCP - General Internal Medicine 08/15/22 Villa Nicolas MD [address] [place] [address] [place] [address] PCP - ACO Reach 09/04/22 Montse Celestin, KYLE [address] [place] [address] [place] [address] Registered Nurse Family Medicine 04/06/23 Barbara Mccann NP [address] [place] [address] [place] [address] Nurse Practitioner Neurology 06/17/24 documented as of this encounter
--- OUTSIDE RECORDS SUMMARY | 2024-12-29 12:34 | XMS_ITS | Encounter Summary ---
Author Organization [facility] Address [address] [place] [address] Care Team Providers Care Classification Inspector Name Role Phone Villa Nicolas MD Primary Care Provider [phone] Villa Nicolas MD Unavailable Montse Celestin RN Unavailable [phone] Barbara Mccann NP Unavailable Unavailable Encounter Details Date Type Department Care Team (Late Contact Info) Description 03/30/2023 Abstract [facility] [place] [facility] 112 [facility] 110 [place] [address] Villa Nicolas MD 112 [facility] 110 [place], [place] [address] Social History Tobacco Use Types Packs/Day Years [...] Date Type Department Care Team ([facility] Contact Info) Description 01/01/2025 1:30 PM EDT Office Visit [facility] 112 [facility] 120 [place] [address] Fortunato Moreno, DPM 3006 [facility] 5 [place] [address] 03/30/2025 1:00 PM EST [facility] [place] [facility] [address] [facility] 110 [place] [address] Villa Nicolas MD [address] [facility] 110 [place] [address] documented as of this encounter Visit Diagnoses Not on filedocumented in this encounter Care Teams Classification Inspector Relationship Specialty Start Date End Date Villa Nicolas MD [address] [facility] 110 [place] [address] PCP - General Internal Medicine 08/15/22 Villa Nicolas MD [address] [facility] 110 [place] [address] PCP - ACO Reach 09/04/22 Montse Celestin RN [address] [facility] [address] [place] [address] Registered Nurse Family Medicine 04/06/23 Barbara Mccann NP [address] [facility] [address] [place] [address] Nurse Practitioner Neurology 06/17/24 documented as of this encounter
--- OUTSIDE RECORDS SUMMARY | 2024-12-29 12:34 | XMS_ITS | Encounter Summary ---
Author Organization [facility] Address [address] [place] [address] Care Team Providers Care Crystal Slicer Name Role Phone Villa Nicolas MD Primary Care Provider [phone] Villa Nicolas MD Unavailable [phone] Montse Celestin RN Unavailable [phone] Barbara Mccann NP Unavailable Unavailable Encounter Details Date Type Department Care Team ([facility] Contact Info) Description 06/02/2024 Abstract [facility] [place] [facility] [address] [facility] 110 [place] [address] Villa Nicolas MD [address] [facility] 110 [place] [address] Social History Tobacco Use Types Packs/Day Years [...] Upcoming Encounters Date Type Department Care Team ([facility] Contact Info) Description 01/01/2025 1:30 PM EDT Office Visit [facility] [address] [place] [address] [place] [address] Fortunato Moreno, YUE 3006 [facility] 5 [place] [address] 03/30/2025 1:00 PM EST Office Visit [facility] [place] [facility] [address] [place] [address] [place] [address] Villa Nicolas MD [address] [place] [address] [place] [address] documented as of this encounter Visit Diagnoses Not on filedocumented in this encounter Care Teams Crystal Slicer Relationship Specialty Start Date End Date Villa Nicolas MD [address] [place] [address] [place] [address] PCP - General Internal Medicine 08/15/22 Villa Nicolas MD [address] [place] [address] [place] [address] PCP - ACO Reach 09/04/22 Montse Celestin, KYLE [address] [place] [address] [place] [address] Registered Nurse Family Medicine 04/06/23 Barbara Mccann NP [address] [place] [address] [place] [address] Nurse Practitioner Neurology 06/17/24 documented as of this encounter
--- OUTSIDE RECORDS SUMMARY | 2024-12-29 12:34 | XMS_ITS | Encounter Summary ---
Author Organization [facility] Address [address] [place] [address] Care Team Providers Care Pbx Inspector Name Role Phone Villa Nicolas MD Primary Care Provider Villa Nicolas MD Unavailable Montse Celestin RN Unavailable [phone] Barbara Mccann NP Unavailable Unavailable Encounter Details Date Type Department Care Team ([facility] Contact Info) Description 06/10/2024 Abstract [facility] [place] [facility] [address] [facility] 110 [place] [address] Villa Nicolas MD [address] [facility] 110 [place] [address] Social History Tobacco Use Types Packs/Day Years [...] Upcoming Encounters Date Type Department Care Team ([facility] Contact Info) Description 01/01/2025 1:30 PM EDT Office Visit [facility] [address] [place] [address] [place] [address] Fortunato Moreno, YUE 3006 [facility] 5 [place] [address] 03/30/2025 1:00 PM EST Office Visit [facility] [place] [facility] [address] [place] [address] [place] [address] Villa Nicolas MD [address] [place] [address] [place] [address] documented as of this encounter Visit Diagnoses Not on filedocumented in this encounter Care Teams Pbx Inspector Relationship Specialty Start Date End Date Villa Nicolas MD [address] [place] [address] [place] [address] PCP - General Internal Medicine 08/15/22 Villa Nicolas MD [address] [place] [address] [place] [address] PCP - ACO Reach 09/04/22 Montse Celestin, KYLE [address] [place] [address] [place] [address] Registered Nurse Family Medicine 04/06/23 Barbara Mccann NP [address] [place] [address] [place] [address] Nurse Practitioner Neurology 06/17/24 documented as of this encounter
--- OUTSIDE RECORDS SUMMARY | 2024-12-29 12:34 | XMS_ITS | Encounter Summary ---
Author Organization [facility] Address [address] [place] [address] Care Team Providers Care Starcher And Tenter Range Feeder Name Role Phone Villa Nicolas MD Primary Care Provider [phone] Villa Nicolas MD Unavailable [phone] Montse Celestin RN Unavailable [phone] Barbara Mccann NP Unavailable Unavailable Encounter Details Date Type Department Care Team ([facility] Contact Info) Description 04/14/2024 Abstract [facility] [place] [facility] [address] [facility] 110 [place] [address] Villa Nicolas MD [address] [facility] 110 [place] [address] Social History Tobacco Use Types Packs/Day Years [...] Encounters Date Type Department Care Team ([facility] Contact Info) Description 01/01/2025 1:30 PM EDT Office Visit [facility] [address] [place] [address] [place] [address] Fortunato Moreno, YUE 3006 [facility] 5 [place] [address] 03/30/2025 1:00 PM EST Office Visit [facility] [place] [facility] [address] [place] [address] [place] [address] Villa Nicolas MD [address] [place] [address] [place] [address] documented as of this encounter Visit Diagnoses Not on filedocumented in this encounter Care Teams Starcher And Tenter Range Feeder Relationship Specialty Start Date End Date Villa Nicolas MD [address] [place] [address] [place] [address] PCP - General Internal Medicine 08/15/22 Villa Nicolas MD [address] [place] [address] [place] [address] PCP - ACO Reach 09/04/22 Montse Celestin, KYLE [address] [place] [address] [place] [address] Registered Nurse Family Medicine 04/06/23 Barbara Mccann NP [address] [place] [address] [place] [address] Nurse Practitioner Neurology 06/17/24 documented as of this encounter
--- OUTSIDE RECORDS SUMMARY | 2024-12-29 12:34 | XMS_ITS | Encounter Summary ---
Author Organization [facility] Address [address] [place] [address] Care Team Providers Care Supervisor Calibration Name Role Phone Villa Nicolas MD Primary Care Provider [phone] Villa Nicolas MD Unavailable [phone] Montse Celestin RN Unavailable [phone] Barbara Mccann NP Unavailable Unavailable Encounter Details Date Type Department Care Team (Late Contact Info) Description 03/29/2023 Abstract [facility] [place] [facility] 112 [facility] 110 [place] [address] Villa Nicolas MD 112 [facility] 110 [place], [place] [address] Social History Tobacco Use Types Packs/Day Years [...] Department Care Team ([facility] Contact Info) Description 01/01/2025 1:30 PM EDT Office Visit [facility] 112 [facility] 120 [place] [address] Fortunato Moreno, DPM 3006 [facility] 5 [place] [address] 03/30/2025 1:00 PM EST Office Visit [facility] [place] [facility] [address] [facility] 110 [place] [address] Villa Nicolas MD [address] [facility] 110 [place] [address] documented as of this encounter Visit Diagnoses Not on filedocumented in this encounter Care Teams Supervisor Calibration Relationship Specialty Start Date End Date Villa Nicolas MD [address] [facility] 110 [place] [address] PCP - General Internal Medicine 08/15/22 Villa Nicolas MD [address] [facility] 110 [place] [address] PCP - ACO Reach 09/04/22 Montse Celestin RN [address] [facility] [address] [place] [address] Registered Nurse Family Medicine 04/06/23 Barbara Mccann NP [address] [facility] [address] [place] [address] Nurse Practitioner Neurology 06/17/24 documented as of this encounter
--- OUTSIDE RECORDS SUMMARY | 2024-12-29 12:34 | XMS_ITS | Encounter Summary ---
Author Organization [facility] Address [address] [place] [address] Care Team Providers Care Sales Ledger Administrator Name Role Phone Villa iNcolas MD Primary Care Provider [phone] Villa Nicolas MD Unavailable [phone] Montse Celestin RN Unavailable [phone] Barbara Mccann NP Unavailable Unavailable Encounter Details Date Type Department Care Team (Late Contact Info) Description 03/30/2023 Abstract [facility] [place] [facility] 112 [facility] 110 [place] [address] Villa Nicolas MD 112 [facility] 110 [place], [place] [address] Social History Tobacco Use Types Packs/Day Years [...] Upcoming Encounters Date Type Department Care Team ([facility] Contact Info) Description 01/01/2025 1:30 PM EDT Office Visit [facility] 112 [facility] [address] [place] [address] Fortunato Moreno, DPM 3006 [facility] 5 [place] [address] 03/30/2025 1:00 PM EST [facility] [place] [facility] [address] [facility] 110 [place] [address] [place] Nicolas MD [address] [facility] 110 [place] [address] documented as of this encounter Visit Diagnoses Not on filedocumented in this encounter Care Teams Sales Ledger Administrator Relationship Specialty Start Date End Date Villa Nicolas MD [address] [facility] 110 [place] [address] PCP - General Internal Medicine 08/15/22 Villa Nicolas MD [address] [facility] 110 [place] [address] PCP - ACO Reach 09/04/22 Montse Celestin RN [address] [facility] [address] [place] [address] Registered Nurse Family Medicine 04/06/23 Barbara Mccann NP [address] [facility] [address] [place] [address] Nurse Practitioner Neurology 06/17/24 documented as of this encounter
--- OUTSIDE RECORDS SUMMARY | 2024-12-29 12:34 | XMS_ITS | Encounter Summary ---
Author Organization [facility] Address [address] [place] [address] Care Team Providers Care Auditor/Quality Name Role Phone Villa Nicolas MD Primary Care Provider [phone] Villa Nicolas MD Unavailable [phone] Montse Celestin RN Unavailable [phone] Barbara Mccann NP Unavailable Unavailable Encounter Details Date Type Department Care Team (Late Contact Info) Description 07/18/2023 Abstract [facility] [place] [facility] [address] [place] [address] Crystal Cortés, [facility] [address] [place] [address] Social History Tobacco Use Types Packs/Day Years [...] Upcoming Encounters Date Type Department Care Team ([facility] Contact Info) Description 01/01/2025 1:30 PM EDT Office Visit [facility] 112 [facility] [address] [place] [address] Fortunato Moreno DPM 3009 [facility] 5 [place] [address] 03/30/2025 1:00 PM EST Office Visit [facility] [place] [address] [facility] 110 [place] [address] [place] MD [address] [facility] 110 [place] [address] documented as of this encounter Visit Diagnoses Not on filedocumented in this encounter Care Teams Auditor/Quality Relationship Specialty Start Date End Date Villa Nicolas MD [address] [facility] 110 [place] [address] PCP - General Internal Medicine 08/15/22 Villa Nicolas MD [address] [facility] 110 [place] [address] PCP - ACO Reach 09/04/22 Montse Celestin, KYLE [address] [facility] 230 [place] [address] Registered Nurse Family Medicine 04/06/23 Barbara Mccann NP [address] [facility] 230 [place] [address] Nurse Practitioner Neurology 06/17/24 documented as of this encounter
--- OUTSIDE RECORDS SUMMARY | 2024-12-29 12:34 | XMS_ITS | Encounter Summary ---
Author Organization [facility] Address [address] [place] [address] Care Team Providers Care Industrial Insulator Name Role Phone Villa Nicolas MD Primary Care Provider [phone] Villa Nciolas MD Unavailable [phone] Montse Celestin RN Unavailable [phone] Barbara Mccann NP Unavailable Unavailable Encounter Details Date Type Department Care Team (Late Contact Info) Description 04/03/2023 Orders Only [facility] [place] [facility] [address] [facility] [place] [address] [place] [address] A, Unknown Practice [address] [place], [place] [address] Social History Tobacco Use Types Packs/Day Years [...] PODIATRY [address] [place] [address] [place] [address] Fortunato Moreno, DPM 3006 [facility] 5 [place] [address] 03/30/2025 1:00 PM EST Office Visit [facility] [place] [facility] [address] [facility] [address] [place] [address] Villa Nicolas MD [address] [facility] [address] [place] [address] documented as of this encounter Procedures Procedure Name Priority Date/Time Associated Diagnosis Comments ECHOCARDIOGRAM WITH DOPPLER IF INDICATED Routine 03/29/2023 9:28 AM EST documented in this encounter Results * ECHOCARDIOGRAM WITH DOPPLER IF INDICATED (03/29/2023 9:28 AM EST) Anatomical Region Laterality Modality Radiographic Peg ging us Unknown Practice A IMG XR PROCEDURES Final Resul t documented in this encounter Visit Diagnoses Not on filedocumented in this encounter Care Teams Industrial Insulator Relationship Specialty Start Date End Date Villa Nicolas MD [address] [facility] [address] [place] [address] PCP - General Internal Medicine 08/15/22 Villa Nicolas MD [address] [facility] [address] [place] [address] PCP - ACO Reach 09/04/22 Montse Celestin, KYLE [address] [place] [address] [place] [address] Registered Nurse Family Medicine 04/06/23 Barbara Mccann NP [address] [place] [address] [place] [address] Nurse Practitioner Neurology 06/17/24 documented as of this encounter
--- OUTSIDE RECORDS SUMMARY | 2024-12-29 12:34 | XMS_ITS | Encounter Summary ---
Author Organization [facility] Address [address] [place] [address] Care Team Providers Care City Planning Teacher Name Role Phone Villa Nicolas MD Primary Care Provider [phone] Villa Nicolas MD Unavailable [phone] Montse Celestin RN Unavailable [phone] Barbara Mccann NP Unavailable Unavailable Encounter Details Date Type Department Care Team ([facility] Contact Info) Description 04/08/2024 Abstract [facility] [place] [facility] [address] [facility] [address] [place] [address] Villa Nicolas MD [address] [facility] 110 [place] [address] Social History Tobacco Use Types Packs/Day Years [...] Upcoming Encounters Date Type Department Care Team ([facility] Contact Info) Description 01/01/2025 1:30 PM EDT Office Visit [facility] [address] [place] [address] [place] [address] Fortunato Moreno, YUE 3006 [facility] 5 [place] [address] 03/30/2025 1:00 PM EST Office Visit [facility] [place] [facility] [address] [place] [address] [place] [address] Villa Nicolas MD [address] [place] [address] [place] [address] documented as of this encounter Visit Diagnoses Not on filedocumented in this encounter Care Teams City Planning Teacher Relationship Specialty Start Date End Date Villa Nicolas MD [address] [place] [address] [place] [address] PCP - General Internal Medicine 08/15/22 Villa Nicolas MD [address] [place] [address] [place] [address] PCP - ACO Reach 09/04/22 Montse Celestin, KYLE [address] [place] [address] [place] [address] Registered Nurse Family Medicine 04/06/23 Barbara Mccann NP [address] [place] [address] [place] [address] Nurse Practitioner Neurology 06/17/24 documented as of this encounter
--- OUTSIDE RECORDS SUMMARY | 2024-12-29 12:34 | XMS_ITS | Encounter Summary ---
Author Organization [facility] Address [address] [place] [address] Care Team Providers Care System Designer Name Role Phone Villa Nicolas MD Primary Care Provider [phone] Villa Nicolas MD Unavailable [phone] Montse Celestin RN Unavailable [phone] Barbara Mccann NP Unavailable Unavailable Encounter Details Date Type Department Care Team ([facility] Contact Info) Description 07/05/2023 Abstract [facility] [place] [facility] [address] [facility] 110 [place] [address] Villa Nicolas MD [address] [facility] 110 [place] [address] Social History Tobacco Use Types Packs/Day Years [...] [facility] [address] [place] [address] [place] [address] Fortunato Moreno, YUE 3006 [facility] 5 [place] [address] 03/30/2025 1:00 PM EST Office Visit [facility] [place] [facility] [address] [place] [address] [place] [address] Villa Nicolas MD [address] [place] [address] [place] [address] documented as of this encounter Visit Diagnoses Not on filedocumented in this encounter Care Teams System Designer Relationship Specialty Start Date End Date Villa Nicolas MD [address] [place] [address] [place] [address] PCP - General Internal Medicine 08/15/22 Villa Nicolas MD [address] [place] [address] [place] [address] PCP - ACO Reach 09/04/22 Montse Celestin, KYLE [address] [place] [address] [place] [address] Registered Nurse Family Medicine 04/06/23 Barbara Mccann NP [address] [place] [address] [place] [address] Nurse Practitioner Neurology 06/17/24 documented as of this encounter
--- OUTSIDE RECORDS SUMMARY | 2024-12-29 12:34 | XMS_ITS | Encounter Summary ---
Author Organization [facility] Address [address] [place] [address] Care Team Providers Care Geospatial Intelligence Analyst Name Role Phone Villa Nicolas MD Primary Care Provider Villa Nicolas MD Unavailable [phone] Montse Celestin RN Unavailable [phone] Barbara Mccann NP Unavailable Unavailable Encounter Details Date Type Department Care Team ([facility] Contact Info) Description 11/01/2023 Abstract [facility] [place] [facility] [address] [facility] 110 [place] [address] Villa Nicolas MD [address] [facility] 110 [place] [address] Social History Tobacco Use Types Packs/Day Years [...] Upcoming Encounters Date Type Department Care Team ([facility] Contact Info) Description 01/01/2025 1:30 PM EDT Office Visit [facility] [address] [place] [address] [place] [address] Fortunato Moreno, YUE 3006 [facility] 5 [place] [address] 03/30/2025 1:00 PM EST Office Visit [facility] [place] [facility] [address] [place] [address] [place] [address] Villa Nicolas MD [address] [place] [address] [place] [address] documented as of this encounter Visit Diagnoses Not on filedocumented in this encounter Care Teams Geospatial Intelligence Analyst Relationship Specialty Start Date End Date Villa Nicolas MD [address] [place] [address] [place] [address] PCP - General Internal Medicine 08/15/22 Villa Nicolas MD [address] [place] [address] [place] [address] PCP - ACO Reach 09/04/22 Montse Celestin, KYLE [address] [place] [address] [place] [address] Registered Nurse Family Medicine 04/06/23 Barbara Mccann NP [address] [place] [address] [place] [address] Nurse Practitioner Neurology 06/17/24 documented as of this encounter
--- OUTSIDE RECORDS SUMMARY | 2024-12-29 12:34 | XMS_ITS | Encounter Summary ---
Author Organization [facility] Address [address] [place] [address] Care Team Providers Care Hoop Cutter Name Role Phone Villa Nicolas MD Primary Care Provider [phone] Villa Nicolas MD Unavailable [phone] Montse Celestin RN Unavailable [phone] Barbara Mccann NP Unavailable Unavailable Encounter Details Date Type Department Care Team ([facility] Contact Info) Description 07/20/2023 Clinisync Result Encounter N[facility] External Department Unsolicited [...] WAY [address] [place] [address] Fortunato Moreno DPM 3006 [facility] 5 [place] [address] 03/30/2025 1:00 PM EST Office Visit [facility] [place] [facility] [address] [place] [address] [place] [address] Villa Nicolas MD [address] [place] [address] [place] [address] documented as of this encounter Procedures Procedure Name Priority Date/Time Associated Diagnosis Comments MHPT GLUCOSE,WHOLE BLOOD Routine 07/20/2023 4:31 PM EDT MHPT GLUCOSE,WHOLE BLOOD Routine 07/20/2023 2:49 PM EDT FLUORO FOR SURGICAL PROCEDURES 07/20/2023 1:37 PM EDT documented in this encounter Results * (ABNORMAL) MHPT GLUCOSE,WHOLE BLOOD (07/20/2023 4:31 PM EDT) MHPT GLUCOSE,WHOLE BLOOD 149(H) 65 - 105 mg/dL MHPT 07/20/2023 4:31 PM EDT 07/20/2023 4:37 PM EDT Narrative [facility] - 07/20/2023 4:37 PM EDT Original Ordering Provider: ALETA WEBSTER us Generic External Data Provider [facility] F inal Result [facility] MHPT * (ABNORMAL) MHPT GLUCOSE,WHOLE BLOOD (07/20/2023 2:49 PM EDT) MHPT GLUCOSE,WHOLE BLOOD 159(H) 65 - 105 mg/dL MHPT 07/20/2023 2:49 PM EDT 07/20/2023 3:05 PM EDT Narrative [facility] - 07/20/2023 3:05 PM EDT Original Ordering Provider: ALETA WEBSTER us Generic External Data Provider [facility] F inal Result [facility] MHPT * FLUORO FOR SURGICAL PROCEDURES (07/20/2023 1:37 PM EDT) Anatomical Region Laterality Modality Other 07/20/2023 1:37 PM EDT Narrative 07/20/2023 1:38 PM EDT Radiology exam is complete. No Radiologist dictation. Please follow up with ordering provider. Final result Procedure Note Yesenia Donohue MD - 07/20/2023 Radiology exam is complete. No Radiologist dictation. Please follow upwith ordering provider. Final result Generic External Data Provider [facility] IMAGING Final Result documented in this encounter Visit Diagnoses Not on filedocumented in this encounter Care Teams Hoop Cutter Relationship Specialty Start Date End Date Villa Nicolas MD [address] [facility] 110 [place] [address] PCP - General Internal Medicine 08/15/22 Villa Nicolas MD [address] [facility] 110 [place] [address] PCP - ACO Reach 09/04/22 Montse Celestin, KYLE [address] [place], [place] [address] Registered Nurse Family Medicine 04/06/23 Barbara Mccann NP [address] [place] [place] [address] Nurse Practitioner Neurology 06/17/24 documented as of this encounter
--- OUTSIDE RECORDS SUMMARY | 2024-12-29 12:34 | XMS_ITS | Encounter Summary ---
Author Organization [facility] Address [address] [place] [address] Care Team Providers Care Low Altitude Air Defense Gunner Name Role Phone Villa Nicolas MD Primary Care Provider [phone] Villa Nicolas MD Unavailable [phone] Montse Celestin RN Unavailable [phone] Barbara Mccann NP Unavailable Unavailable Encounter Details Date Type Department Care Team ([facility] Contact Info) Description 11/21/2023 Abstract [facility] [place] [facility] [address] [facility] 110 [place] [address] Villa Nicolas MD [address] [facility] 110 [place] [address] Social History Tobacco Use Types Packs/Day Years [...] Upcoming Encounters Date Type Department Care Team ([facility] Contact Info) Description 01/01/2025 1:30 PM EDT Office Visit [facility] [address] [place] [address] [place] [address] Fortunato Moreno, YUE 3006 [facility] 5 [place] [address] 03/30/2025 1:00 PM EST Office Visit [facility] [place] [facility] [address] [address] [place] [address] Villa Nicolas MD [address] [place] [address] [place] [address] documented as of this encounter Visit Diagnoses Not on filedocumented in this encounter Care Teams Low Altitude Air Defense Gunner Relationship Specialty Start Date End Date Villa Nicolas MD [address] [place] [address] [place] [address] PCP - General Internal Medicine 08/15/22 Villa Nicolas MD [address] [place] [address] [place] [address] PCP - ACO Reach 09/04/22 Montse Celestin, KYLE [address] [place] [address] [place] [address] Registered Nurse Family Medicine 04/06/23 Barbara Mccann NP [address] [place] [address] [place] [address] Nurse Practitioner Neurology 06/17/24 documented as of this encounter
--- OUTSIDE RECORDS SUMMARY | 2024-12-29 12:34 | XMS_ITS | Encounter Summary ---
Author Organization [facility] Address [address] [place] [address] Care Team Providers Care Gear Lapper Name Role Phone Villa Nicolas MD Primary Care Provider [phone] Villa Nicolas MD Unavailable [phone] Montse Celestin RN Unavailable [phone] Barbara Mccann NP Unavailable Unavailable Encounter Details Date Type Department Care Team ([facility] Contact Info) Description 12/06/2023 Abstract [facility] [place] [facility] [address] [facility] 110 [place] [address] Villa Nicolas MD [address] [facility] 110 [place] [address] Social History Tobacco Use Types Packs/Day Years [...] Type Department Care Team ([facility] Contact Info) Description 01/01/2025 1:30 PM EDT Office Visit [facility] [address] [place] [address] [place] [address] Fortunato Moreno, YUE 3006 [facility] 5 [place] [address] 03/30/2025 1:00 PM EST Office Visit [facility] [place] [facility] [address] [place] [address] Villa Nicolas MD [address] [place] [address] [place] [address] documented as of this encounter Visit Diagnoses Not on filedocumented in this encounter Care Teams Gear Lapper Relationship Specialty Start Date End Date Villa Nicolas MD [address] [place] [address] [place] [address] PCP - General Internal Medicine 08/15/22 Villa Nicolas MD [address] [place] [address] [place] [address] PCP - ACO Reach 09/04/22 Montse Celestin, KYLE [address] [place] [address] [place] [address] Registered Nurse Family Medicine 04/06/23 Barbara Mccann NP [address] [place] [address] [place] [address] Nurse Practitioner Neurology 06/17/24 documented as of this encounter
--- OUTSIDE RECORDS SUMMARY | 2024-12-29 12:34 | XMS_ITS | Encounter Summary ---
Author Organization [facility] Address [address] [place] [address] Care Team Providers Care Fur Sorter Name Role Phone Villa Nicolas MD Primary Care Provider [phone] Villa Nicolas MD Unavailable [phone] Montse Celestin RN Unavailable [phone] Barbara Mccann NP Unavailable Unavailable Encounter Details Date Type Department Care Team ([facility] Contact Info) Description 12/06/2023 Abstract [facility] [place] [facility] [address] [facility] 110 [place] [address] Villa Nicolas MD [address] [facility] 110 [place] [address] Social History Tobacco Use Types Packs/Day Years [...] Department Care Team ([facility] Contact Info) Description 01/01/2025 1:30 PM EDT Office Visit [facility] [address] [place] [address] [place] [address] Fortunato Moreno, YUE 3006 [facility] 5 [place] [address] 03/30/2025 1:00 PM EST Office Visit [facility] [place] [facility] [address] [address] [place] [address] Villa Nicolas MD [address] [place] [address] [place] [address] documented as of this encounter Visit Diagnoses Not on filedocumented in this encounter Care Teams Fur Sorter Relationship Specialty Start Date End Date Villa Nicolas MD [address] [place] [address] [place] [address] PCP - General Internal Medicine 08/15/22 Villa Nicolas MD [address] [place] [address] [place] [address] PCP - ACO Reach 09/04/22 Montse Celestin, KYLE [address] [place] [address] [place] [address] Registered Nurse Family Medicine 04/06/23 Barbara Mccann NP [address] [place] [address] [place] [address] Nurse Practitioner Neurology 06/17/24 documented as of this encounter
--- OUTSIDE RECORDS SUMMARY | 2024-12-29 12:34 | XMS_ITS | Encounter Summary ---
Author Organization [facility] Address [address] [place] [address] Care Team Providers Care Touch Up Painter Name Role Phone Villa Nicolas MD Primary Care Provider [phone] Villa Nicolas MD Unavailable [phone] Montse Celestin RN Unavailable [phone] Barbara Mccann NP Unavailable Unavailable Encounter Details Date Type Department Care Team (Late Contact Info) Description 04/02/2023 Abstract [facility] [place] [facility] 112 [facility] 110 [place] [address] Villa Nicolas MD 112 [facility] 110 [place], [place] [address] Social History Tobacco Use Types Packs/Day Years [...] Care Team ([facility] Contact Info) Description 01/01/2025 1:30 PM EDT Office Visit [facility] 112 [facility] [address] [place] [address] Fortunato Moreno, DPM 3006 [facility] 5 [place] [address] 03/30/2025 1:00 PM EST [facility] [place] [facility] [address] [facility] 110 [place] [address] [place] Nicolas MD [address] [facility] 110 [place] [address] documented as of this encounter Visit Diagnoses Not on filedocumented in this encounter Care Teams Touch Up Painter Relationship Specialty Start Date End Date Villa Nicolas MD [address] [facility] [address] [place] [address] PCP - General Internal Medicine 08/15/22 Villa Nicolas MD [address] [facility] 110 [place] [address] PCP - ACO Reach 09/04/22 Montse Celestin RN [address] [facility] [address] [place] [address] Registered Nurse Family Medicine 04/06/23 Barbara Mccann NP [address] [facility] [address] [place] [address] Nurse Practitioner Neurology 06/17/24 documented as of this encounter
--- OUTSIDE RECORDS SUMMARY | 2024-12-29 12:34 | XMS_ITS | Encounter Summary ---
Author Organization [facility] Address [address] [place] [address] Care Team Providers Care Furnace Combustion Analyst Name Role Phone Villa Nicolas MD Primary Care Provider [phone] Villa Nicolas MD Unavailable [phone] Montse Celestin RN Unavailable [phone] Barbara Mccann NP Unavailable Unavailable Encounter Details Date Type Department Care Team ([facility] Contact Info) Description 07/17/2023 Abstract [facility] [place] [facility] [address] [facility] 110 [place] [address] Villa Nicolas MD [address] [facility] 110 [place] [address] Social History Tobacco Use Types Packs/Day Years [...] [facility] [address] [place] [address] [place] [address] Fortunato Moreno, YUE 3006 [facility] 5 [place] [address] 03/30/2025 1:00 PM EST Office Visit [facility] [place] [facility] [address] [address] [place] [address] Villa Nicolas MD [address] [place] [address] [place] [address] documented as of this encounter Visit Diagnoses Not on filedocumented in this encounter Care Teams Furnace Combustion Analyst Relationship Specialty Start Date End Date Villa Nicolas MD [address] [place] [address] [place] [address] PCP - General Internal Medicine 08/15/22 Villa Nicolas MD [address] [place] [address] [place] [address] PCP - ACO Reach 09/04/22 Montse Celestin, KYLE [address] [place] [address] [place] [address] Registered Nurse Family Medicine 04/06/23 Barbara Mccann NP [address] [place] [address] [place] [address] Nurse Practitioner Neurology 06/17/24 documented as of this encounter
--- OUTSIDE RECORDS SUMMARY | 2024-12-29 12:34 | XMS_ITS | Encounter Summary ---
Author Organization [facility] Address [address] [place] [address] Care Team Providers Care Accelerator Operator Name Role Phone Villa Nicolas MD Primary Care Provider [phone] Villa Nicolas MD Unavailable [phone] Montse Celestin RN Unavailable [phone] Barbara Mccann NP Unavailable Unavailable Encounter Details Date Type Department Care Team ([facility] Contact Info) Description 05/08/2024 Abstract [facility] [place] [facility] [address] [facility] 110 [place] [address] Villa Nicolas MD [address] [facility] 110 [place] [address] Social History Tobacco Use Types Packs/Day Years [...] [facility] [address] [place] [address] [place] [address] Fortunato Moreno, YUE 3006 [facility] 5 [place] [address] 03/30/2025 1:00 PM EST Office Visit [facility] [place] [facility] [address] [place] [address] [place] [address] Villa Nicolas MD [address] [place] [address] [place] [address] documented as of this encounter Visit Diagnoses Not on filedocumented in this encounter Care Teams Accelerator Operator Relationship Specialty Start Date End Date Villa Nicolas MD [address] [place] [address] [place] [address] PCP - General Internal Medicine 08/15/22 Villa Nicolas MD [address] [place] [address] [place] [address] PCP - ACO Reach 09/04/22 Montse Celestin, KYLE [address] [place] [address] [place] [address] Registered Nurse Family Medicine 04/06/23 Barbara Mccann NP [address] [place] [address] [place] [address] Nurse Practitioner Neurology 06/17/24 documented as of this encounter
--- OUTSIDE RECORDS SUMMARY | 2024-12-29 12:35 | XMS_ITS | Encounter Summary ---
Author Organization [facility] Address [address] [place] [address] Care Team Providers Care Order Caller Name Role Phone Villa Nicolas MD Primary Care Provider [phone] Villa Nicolas MD Unavailable [phone] Montse Celestin RN Unavailable [phone] Barbara Mccann NP Unavailable Unavailable Encounter Details Date Type Department Care Team ([facility] Contact Info) Description 08/13/2023 Abstract [facility] [place] [facility] [address] [place] [address] [place] [address] Villa Nicolas MD [address] [facility] 110 [place] [address] Social History Tobacco Use Types Packs/Day Years [...] Encounters Date Type Department Care Team ([facility] Contact Info) Description 01/01/2025 1:30 PM EDT Office Visit [facility] [address] [place] [address] [place] [address] Fortunato Moreno, YUE 3006 [facility] 5 [place] [address] 03/30/2025 1:00 PM EST Office Visit [facility] [place] [facility] [address] [place] [address] [place] Nicolas MD [address] [place] [address] [place] [address] documented as of this encounter Visit Diagnoses Not on filedocumented in this encounter Care Teams Order Caller Relationship Specialty Start Date End Date Villa Nicolas MD [address] [place] [address] [place] [address] PCP - General Internal Medicine 08/15/22 Villa Nicolas MD [address] [place] [address] [place] [address] PCP - ACO Reach 09/04/22 Montse Celestin, KYLE [address] [place] [address] [place] [address] Registered Nurse Family Medicine 04/06/23 Barbara Mccann NP [address] [place] [address] [place] [address] Nurse Practitioner Neurology 06/17/24 documented as of this encounter
--- OUTSIDE RECORDS SUMMARY | 2024-12-29 12:35 | XMS_ITS | Encounter Summary ---
Author Organization [facility] Address [address] [place] [address] Care Team Providers Care Corporate Manager Name Role Phone Villa Nicolas MD Primary Care Provider [phone] Villa Nicolas MD Unavailable [phone] Montse Celestin RN Unavailable [phone] Barbara Mccann NP Unavailable Unavailable Encounter Details Date Type Department Care Team (Late Contact Info) Description 09/20/2022 Abstract [facility] [place] [facility] [address] [place] [phone] Villa Nicolas MD 112 [facility] [address] [place], [place] [id number] Social History Tobacco Use Types Packs/Day Years [...] Upcoming Encounters Date Type Department Care Team ([facility] Contact Info) Description 01/01/2025 1:30 PM EDT Office Visit [facility] [address] [facility] [address] [place] [phone] Fortunato Moreno, DPM 3006 [facility] 5 [place] [address] 03/30/2025 1:00 PM EST [facility] [place] [facility] [address] [facility] [address] [place] [address] Villa Nicolas MD [address] [facility] [address] [place] [address] documented as of this encounter Visit Diagnoses Not on filedocumented in this encounter Care Teams Corporate Manager Relationship Specialty Start Date End Date Villa Nicolas MD [address] [facility] [address] [place] [address] PCP - General Internal Medicine 08/15/22 Villa Nicolas MD [address] [facility] [address] [place] [address] PCP - ACO Reach 09/04/22 Montse Celestin RN [address] [facility] [address] [place] [address] Registered Nurse Family Medicine 04/06/23 Barbara Mccann NP [address] [facility] [address] [place] [address] Nurse Practitioner Neurology 06/17/24 documented as of this encounter
--- OUTSIDE RECORDS SUMMARY | 2024-12-29 12:35 | XMS_ITS | Encounter Summary ---
Author Organization [facility] Address [address] [place] [address] Care Team Providers Care Math Teacher Name Role Phone Villa Nicolas MD Primary Care Provider [phone] Villa Nicolas MD Unavailable [phone] Montse Celestin RN Unavailable [phone] Barbara Mccann NP Unavailable Unavailable Encounter Details Date Type Department Care Team ([facility] Contact Info) Description 08/07/2023 Abstract [facility] [place] [facility] [address] [facility] [address] [place] [phone] Villa Nicolas MD [address] [facility] [address] [place] [address] Social History Tobacco Use Types Packs/Day Years [...] Encounters Date Type Department Care Team ([facility] Contact Info) Description 01/01/2025 1:30 PM EDT Office Visit [facility] [address] [facility] [address] [place] [phone] Fortunato Moreno, YUE 3006 [facility] 5 [place] [address] 03/30/2025 1:00 PM EST Office Visit [facility] [place] [facility] [address] [facility] [address] [place] [address] Villa Nicolas MD [address] [facility] [address] [place] [address] documented as of this encounter Visit Diagnoses Not on filedocumented in this encounter Care Teams Math Teacher Relationship Specialty Start Date End Date Villa Nicolas MD [address] [facility] [address] [place] [address] PCP - General Internal Medicine 08/15/22 Villa Nicolas MD [address] [facility] [address] [place] [address] PCP - ACO Reach 09/04/22 Montse Celestin, KYLE [address] [place] [address] [place] [address] Registered Nurse Family Medicine 04/06/23 Barbara Mccann NP [address] [place] [address] [place] [address] Nurse Practitioner Neurology 06/17/24 documented as of this encounter
--- OUTSIDE RECORDS SUMMARY | 2024-12-29 12:35 | XMS_ITS | Patient Health Record ---
Author Organization [facility] [place] Address [address] [place] [address] Care Team Providers Care Control Room Tender Name Role Phone Villa Nicolas MD Primary Care Provider Unavailab le Allergies Allergen (clinical drug ingredient) Drug/Non Drug Allergy documented on EMR Reaction Allergy Type Onset Date Status amoxicillin / clavulanate Augmentin Unknown Drug Allergy Active duloxetine Cymbalta Unknown Drug Allergy Active Reason For Referral No Information Medications Medication SIG (Take, Route, Frequency, Duration) Notes Start Date End Date Status metFORMIN HCl 500 MG 1 tablet with a caio l Orally Once a day; Duration: 30 day(s) Active Lyrica 200 MG 1 capsule 1 to 3 jesus rs before bedtime Orally Once a day Active Isosorbide Mononitrate ER 30 MG 1 tablet in the morning Orally Once a day; Duration: 30 day(s) Active Clopidogrel Bisulfate 75 MG 1 tablet Ora lly Once a day; Duration: 30 day(s) Active CeleXA 40 MG 0.5 tablet Orally On ce a day; Duration: 30 day(s) Active Carbidopa-Levodopa 25-100 MG 1 tablet as needed Orally Two times a Week; Duration: 30 day(s) Active Atorvastatin Calcium 20 MG 1 tablet Oral ly Once a day; Duration: 30 day(s) Active Vitamin B12 1000 MCG 1 tablet Orally Onc e a day; Duration: 30 day(s) Active Aspirin 81 MG 1 tablet Orally Once a day; Duration: 30 day(s) Active tiZANidine HCl 4 MG 1 tablet as needed O rally Three times a day Active Primidone 50 MG 1 tablet Orally Once a day; Duration: 30 day(s) Active oxyCODONE-Acetaminophen 10-325 MG 1 tablet as needed Orally every 6 hrs Active rOPINIRole HCl 0.25 MG 1 tablet 1 to 3 h ours before bedtime Orally Once a day; Duration: 30 day(s) Active Social History Tobacco Use: Social History Observation Description Date Details (start date - stop date) Current Smoker NA - NA Tobacco Use/Smoking Question Answer Notes Patient is a current smoker Section Notes: 1/2 PPD x 50years Problems Problem Type SNOMED Code ICD Code Onset Dates Problem Status W/U Status Risk Notes Problem Tobacco user (105979302) Nicotine dependence, unspecified, uncomplicated (F17.200) Active confirmed Problem Coronary artery disease (28113881) CAD (coronary artery disease) (I25.10) Active confirmed Problem Degenerative disc disease (03269504) DDD (degenerative disc disease), lumbar (M51.36) Active confirmed Problem Acquired spondylolisthesis (086065793) Spondylolisthesis of lumbar region (M43.16) Active confirmed Problem Iron deficiency anemia (19618870) Anemia, iron deficiency (D50.9) Active confirmed Problem Hyperglycemia due to type 2 diabetes mellitus (115147350087952) Diabetes mellitus with hyperglycemia (E11.65) Active confirmed Problem Blood chemistry abnormal (588384951) Elevated troponin level (R79.89) Active confirmed Problem Essential hypertension (55484317) BP (high blood pressure) (I10) Active confirmed Problem Diabetes mellitus (87205668) Diabetes mellitus (E11.9) Active confirmed Plan Of Treatment Pending Test Test Name Order Date XR Lumbar Spine Flex/Ext 09/28/2022 CT Spine Lumbar w/o Contrast 09/28/2022 Insurance Providers Payer Name Payer Address Payer Phone Subscriber Number Group Number Insured Name Patient Relationship to Insured Coverage Start Date Coverage End Date [place] [address] [place] [address] [id number] Mirna Bobo Self - patient is the insured 6 [place] 2ND INS [address] OFFICE OF [place], [place] [id number] Mirna Bobo Self - patient is the insured Medical (General) History Medical History History ICD Code CAD cervical dytonia type II diabetes essential tremor fibromyalgia hypertension left foot drop parkinsons disease, tremors restless leg syndrome Cataract Hx of Kidney stones and gallstones Hx of [place] Rheumatoid arthritis Hx of blood clots Hx of pneumonia Depression Surgical History Surgery Date(Month/Year) triple bypass with post op infection 200 0 neck surgery 2019 eye surgery 2020 back surgery on L4, L5, S1 2016 gallbladder removed wound repair 2x section 2x 1981 & 1982 Hospitalization History Reason Date(Month/Year) pneumonia 2015
--- OUTSIDE RECORDS SUMMARY | 2024-12-29 12:35 | XMS_ITS | Encounter Summary ---
Author Organization [facility] Address [address] [place] [address] Care Team Providers Care Derrick Boat Runner Name Role Phone Villa Nicolas MD Primary Care Provider [phone] Villa Nicolas MD Unavailable [phone] Montse Celestin RN Unavailable [phone] Barbara Mccann NP Unavailable Unavailable Encounter Details Date Type Department Care Team (Late Contact Info) Description 09/12/2022 Abstract [facility] [place] [facility] 112 [facility] [address] [place] [phone] Villa Nicolas MD 112 [facility] [address] [place], [place] [address] Social History Tobacco Use Types Packs/Day Years [...] EDT Office Visit [facility] 112 [facility] [address] [place] [phone] Fortunato Moreno, DPM 3006 [facility] 5 [place] [address] 03/30/2025 1:00 PM EST [facility] [place] [facility] [address] [facility] [address] [place] [address] Villa Nicolas MD [address] [facility] [address] [place] [address] documented as of this encounter Visit Diagnoses Not on filedocumented in this encounter Care Teams Derrick Boat Runner Relationship Specialty Start Date End Date Villa Nicolas MD [address] [facility] [address] [place] [address] PCP - General Internal Medicine 08/15/22 Villa Nicolas MD [address] [facility] [address] [place] [address] PCP - ACO Reach 09/04/22 Montse Celestin RN [address] [facility] [address] [place] [address] Registered Nurse Family Medicine 04/06/23 Barbara Mccann NP [address] [facility] [address] [place] [address] Nurse Practitioner Neurology 06/17/24 documented as of this encounter
--- OUTSIDE RECORDS SUMMARY | 2024-12-29 12:35 | XMS_ITS | CCD ---
Author Organization [facility] Inform ion Partnership [facility] Care Team Providers Care Tow Bar Driver Name Role Phone PHYSICIAN, DEFAULT Unavailable Unavailable [...] Unavailable FIDENCIO, DR TREVINO Primary Care Unavailable CHNATELREBECA Admitting Unavailable CHANTELREBECA Attending Unavailable FIDENICO, DR TREVINO Primary Care Unavailable FIDENCIO, DR TREVINO Consulting Unavailable DELMI, DR CHARY Gonzalez Consulting Unavailable CHANTEL, REJIAMED Consulting Unavailable SINGH, YASMEEN Admitting Unavailable SINGH, YASMEEN Attending Unavailable FIDENCIO, DR TREVINO Primary Care Unavailable HEGGGARRET Consulting Unavailable SINGH, YASMEEN Consulting Unavailable FIDENCIO, DR TREVINO Admitting Unavailable FIDENCIO, DR TREVINO Attending Unavailable FIDENCIO, DR TREVINO Primary Care Unavailable FIDENCIO, DR TREVINO Consulting Unavailable DELMI, DR CHARY Gonzalez Consulting Unavailable Villa Nicolas MD Primary Care Provider Villa Nicolas MD Primary Care Provider Villa Nicolas MD Unavailable Sabi WRIGHT, Montse Unavailable [phone] MD Aron Rain Attending Provider [phone] Nicolas, II Villa Primary Care Provider CHRISTIAN WEBSTER Admitting Unavailable TAMMYEFCHRISTIAN SHOEMAKER Attending Unavailable NICOLAS, VILLA B Primary Care Unavailable NICOLAS, VILLA B Primary Care Unavailable HOEFLINGER, CHRISTIAN Referring Unavailable HOEFLINGER, CHRISTIAN Referring Unavailable NICOLAS, VILLA B Primary Care Unavailable HOEFROSSER, CHRISTIAN Referring Unavailable NICOLAS, VILLA B Primary Care Unavailable Aron Rain MD Attending Provider [phone] Nicolas II, Villa Primary Care Provider [phone] Ramy PRIVATE BANKER, Barbara Unavailable Sabi WRIGHT, Montse Unavailable [phone] Ramy PRIVATE BANKER, Barbara Unavailable Unavailable Nicolas II, Villa Primary Care Provider Ramy LIFE 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, Barbara E Attending Provider Shira CORRALES-C, Gely Ellis Attending Provider MARLENE AHUMADA Attending Unavailable PRESLEY WONG Attending Unavailable Nicolas IIVilla Primary Care Provider Aron Rain MD Attending Provider [phone] Aron Rain Attending Unavailable Aron Rani Admitting Unavailable Ottoniel Nicolasel Primary Care Unavailable Ottoniel Nicolasel Primary Care Unavailable Aron Rain Attending Unavailable Aron Rain Admitting Unavailable BROWN, FORTUNATO A Attending Unavailable BROWN, FORTUNATO A Referring Unavailable MCCANN, BARBARA Attending Unavailable NICOLAS, VILLA B Attending Unavailable NICOLAS, VILLA B Attending Unavailable BROWN, FORTUNTAO A Attending Unavailable BROWN, FORTUNATO A Attending Unavailable BROWN, FORTUNATO A Attending Unavailable BROWN, FORTUNATO A Attending Unavailable BROWN, FORTUNATO A Referring Unavailable BROWN, FORTUNATO A Attending Unavailable BROWN, FORTUNATO A Attending Unavailable BROWN, FORTUNATO A Attending Unavailable NICOLAS, VILLA B Attending Unavailable NICOLAS, VILLA B Attending Unavailable JAMIA FUNEZ Attending Unavailable NICOLAS, VILLA B Attending Unavailable BROWN, FORTUNATO A Attending Unavailable Allergies Allergy Classification Reported Allergen(s) Allergy Type Date of Onset Reaction(s) Facility (4 sources) amoxicillin / clavulanate; Translations: [Augmentin] Drug Allergy [address] [facility] Repository (1 source) Penicillins Drug allergy (disorder) [address] [facility] Repository (1 source) DULoxetine Drug Allergy 7 [facility] Repository (1 source) OXcarbazepine Drug Allergy 7 [facility] Repository (20 sources) DULoxetine Drug Allergy 7 Hives, Other (See Comments) [facility] [facility] (4 sources) false ragweed pollen extract / western ragweed pollen extract Drug Allergy 3 Rash, Other (See Comments) [facility] (4 sources) OXcarbazepine Drug Allergy 7 Other (See Comments) [facility] (20 sources) Amoxicillin-Pot Clavulanate; Translations: [AMOXICILLIN-POT CLAVULANATE] Propensity to adverse reactions to drug 0 Angioedema [facility] (20 sources) Penicillin G Drug Allergy [address] [facility] (20 sources) Mixed Ragweed Propensity to adverse reactions 3 [facility] (7 sources) Amoxicillin; Translations: [amoxicillin] Drug Allergy 4 [facility] (7 sources) Clavulanate; Translations: [clavulanic acid] Drug Allergy 4 [facility] Medications Current Medications Medication Drug [...] same time for any pain indication. Post-op acetaminophen 325 mg / HYDROcodone bitartrate 10 mg oral tablet (20 sources) Opioid Agonist Start: 10-16-2024 End: 01-07-2025 take 1 tablet by mouth every six hours for pain HYDROcodone-acetamin ophen (Mentone) 10-325 MG tablet Indications: Intervertebral disc disorder of lumbar region with myelopathy Take 1 tablet by mouth every 6 (six) hours if needed for severe pain 120 tablet 2024 01/07/2025 Active Start: 03-31-2024 End: 10-14-2024 take 1 tablet by mouth every six hours for pain HYDROcodone-acetaminophen (Mentone) 10-325 MG tablet Indications: Intervertebral disc disorder of lumbar region with myelopathy Take 1 tablet by mouth every 6 (six) hours if needed for severe pain 120 tablet 09/08/2024 10/14/2024 Discontinued (Reorder) Start: 09-05-2023 End: 04-04-2024 take 1 tablet by mouth every eight hours HYDROcodone-acetaminophen (Mentone) 10-325 MG tablet Indications: Intervertebral disc disorder of lumbar region with myelopathy Take 1 tablet by mouth every 8 (eight) hours 90 tablet 03/05/2024 04/04/2024 Active Start: 07-20-2023 take 2 tablets by mo uth every four hours as needed 2 tablet, Oral, EVERY 4 HOURS PRN, Starting on Sun07/20/23 at 1623, Until Discontinued, Pain Severe (7-10) Start: 06-25-2023 take 1 tablet by naida th four times daily as needed for pain Hydrocodone-Acetaminophen 10-325 mg tabl et Active 1 TAB PO Four times daily as needed for pain June 25, 2023 12:00am Complies with drug therapy Start: 06-25-2023 Hydrocodone-Ac etaminophen 10-325 mg tablet Active TAB PO June 25, 2023 12:00am Complies with drug therapy Start: 03-15-2023 End: 05-07-2023 take 1 tablet by mouth every eight hours HYDROcodone-acetaminophen (Mentone) 10-325 MG tablet Indications: Intervertebral disc disorder of lumbar region with myelopathy Take 1 tablet by mouth every 8 (eight) hours 90 tablet 0 05/07/2023 Active Start: 10-11-2022 HYDROcodone-ac etaminophen (NORCO) 10-325 MG per tablet Take 1 tablet by mouth in the morning and 1 tablet at noon and 1 tablet in the evening. 0 10/11/2022 Active amantadine hydrochloride 100 mg oral tablet (20 sources) Influenza A M2 Protein Inhibitor Start: 06-17-2024 End: 08-16-2024 take 1 tablet by mouth once daily amantadine (Symmetrel) 100 MG tablet Indications: Parkinson's plus syndrome (HCC) Take 1 tablet (100 mg) by mouth Daily 30 tablet 1 06/17/2024 Active aspirin 81 mg delayed release oral tablet (20 sources) Platelet Aggregation Inhibitor, Nonsteroidal Anti-inflammatory Drug Start: 12-28-2022 End: 07-20-2023 take 1 tablet by mouth in the morning aspirin 81 MG EC tablet Indications: PAD (peripheral artery disease) Take 1 tablet (81 mg) by mouth in the morning. 100 tablet 3 12/28/2022 Active atorvastatin 40 mg oral tablet (20 sources) HMG-CoA Reductase Inhibitor Start: 06-25-2023 Atorvastatin Active MG PO June 25, 2023 12:00am Start: 04-03-2023 take 1 tablet by naida th in the morning atorvastatin (Lipitor) 40 MG tablet Indications: Mixed hyperlipidemia TAKE 1 TABLET BY MOUTH IN THE MORNING 100 tablet 3 04/03/2023 Active Start: 03-10-2020 take 20 mg by mouth once daily 20 mg, Oral, DAILY, First dose on Sun07/20/23 at 1645, Until Discontinued carbidopa 25 mg / levodopa 100 mg oral tablet (20 sources) Aromatic Amino Acid Decarboxylation Inhibitor, Aromatic Amino Acid Start: 10-22-2024 take 1.5 tablets by mouth four times daily Carbidopa-Levodopa 25-100 mg tablet Active 1.5 TAB PO Four times daily 180 October 22, 2024 3:43pm Complies with drug therapy Start: 06-25-2023 End: 10-22-2024 carbidopa-levodopa (Sinemet) 25-100 MG tablet Indications: Parkinson's disease, unspecified whether dyskinesia present, unspecified whether manifestations fluctuate (HCC) Take 1.5 tablets by mouth in the morning and 1.5 tablets at noon and 1.5 tablets in the evening and 1.5 tablets before bedtime. 180 tablet 2 11/12/2023 Active Start: 06-25-2023 Carbidopa-Levo dopa 25-100 mg tablet Active TAB PO June 24, 2023 11:00pm Start: 06-25-2023 Carbidopa-Levo dopa Active TAB PO June 25, 2023 12:00am [...] 0 Active citalopram 40 mg oral tablet (16 sources) Serotonin Reuptake Inhibitor Start: 07-21-2023 take 40 mg by mouth once daily in the morning 40 mg, Oral, EVERY MORNING, First dose on Sun07/21/23 at 0900, Until Discontinued Start: 06-25-2023 Citalopram Act angelo MG PO June 25, 2023 12:00am Start: 10-24-2022 End: 03-05-2025 take 1 tablet by mouth once daily Citalopram 40 mg tablet Active 40 MG PO Daily June 25, 2023 12:00am Complies with drug therapy clindamycin 300 mg oral capsule (7 sources) Lincosamide Antibacterial Start: 10-23-2024 End: 11-02-2024 take 1 capsule by mouth in the morning, then take 1 capsule by mouth in the evening, then take 1 capsule by mouth at bedtime clindamycin (Cleocin) 300 MG capsule Indications: Cellulitis of left foot Take 1 capsule (300 mg) by mouth in the morning and 1 capsule (300 mg) in the evening and 1 capsule (300 mg) before bedtime. Do all this for 10 days. 30 capsule 10/23/2024 11/02/2024 Active Start: 09-18-2024 End: 09-28-2024 take 1 capsule by mouth in the morning, then take 1 capsule by mouth in the evening, then take 1 capsule by mouth at bedtime clindamycin (Cleocin) 300 MG capsule Indications: Cellulitis of left foot Take 1 capsule (300 mg) by mouth in the morning and 1 capsule (300 mg) in the evening and 1 capsule (300 mg) before bedtime. Do all this for 10 days. 30 capsule 09/18/2024 09/28/2024 Active clopidogrel 75 mg oral tablet (20 sources) [id number] Platelet Inhibitor Start: 08-29-2023 take 1 tablet by mouth once daily clopidogrel (Plavix) 75 MG tablet Indications: Coronary artery disease, unspecified vessel or lesion type, unspecified whether angina present, unspecified whether three affiliated or transplanted heart TAKE 1 TABLET BY MOUTH ONCE DAILY 30 tablet 08/29/2023 Active Start: 06-25-2023 Clopidogrel Ac tive MG PO June 25, 2023 12:00am Start: 09-13-2022 End: 07-20-2023 take 1 tablet by mouth once daily clopidogrel (Plavix) 75 MG tablet Indications: Coronary artery disease, unspecified vessel or lesion type, unspecified whether angina present, unspecified whether three affiliated or transplanted heart TAKE 1 TABLET BY MOUTH ONCE DAILY 30 tablet 08/29/2023 Active dapagliflozin 10 mg oral tablet (20 sources) Sodium-Glucose Cotransporter 2 Inhibitor take 10 mg by mouth once daily Farxiga 10 MG Take 10 mg by mouth Daily Active dipyridamole 50 mg oral tablet (20 sources) Platelet Aggregation Inhibitor Start: 07-01-19 End: 10-15-19 dipyridamole (Persantine) 50 MG tablet Indications: PAD (peripheral artery disease) Take 1 tablet (50 mg) by mouth in the morning and 1 tablet (50 mg) at noon and 1 tablet (50 mg) in the evening and 1 tablet (50 mg) before bedtime. 120 tablet 10/14/2024 10/14/2025 Active doxycycline hyclate 100 mg oral capsule (2 sources) Tetracycline-class Drug Start: 06-03-19 End: 06-13-19 doxycycline (Vibramycin) 100 MG capsule Indications: Cellulitis of left foot Take 1 capsule (100 mg) by mouth in the morning and 1 capsule (100 mg) before bedtime. Do all this for 10 days. Take with at least 8 ounces (large glass) of water, do not lie down for 30 minutes after. 20 capsule 06/02/2024 06/12/2024 Active 24 hr isosorbide mononitrate 30 mg extended release oral tablet (20 sources) Nitrate Vasodilator Start: 06-25-19 End: 12-12-19 take 1 tablet by mouth every twenty-four hours Isosorbide Mononitrate 30 mg tablet extended release 24 hr Discontinued MG PO June 25, 2023 12:00am December 11, 2024 12:21pm Start: 08-03-2022 take 1 tablet by naida th once daily, then take 1 tablet by mouth every twenty-four hours isosorbide mononitrate ER (Imdur) 30 MG 24 hr tablet Take 30 mg by mouth Daily 06/25/2023 Active lisinopril 5 mg oral tablet (20 sources) Angiotensin Converting Enzyme Inhibitor Start: 12-11-2024 take 1 tablet by mouth once daily Lisinopril 5 mg tablet Active 5 MG PO Daily December 11, 2024 12:00am Complies with drug therapy 24 hr metFORMIN hydrochloride 750 mg extended release oral tablet (20 sources) Biguanide Start: 07-21-2023 take 1000 mg by mouth once daily 1,000 mg, Oral, DAILY, First dose on 07/21/23 at 0900, Until Discontinued Start: 06-25-2023 End: 11-15-2024 take 1 tablet by mouth once daily at dinner metFORMIN XR (Glucophage-XR) 750 MG 24 hr tablet Indications: Type II diabetes mellitus with manifestations (HCC) Take 1 tablet (750 mg) by mouth Daily Take with evening meal 90 tablet 3 11/15/2024 Active Start: 06-25-2023 Metformin Acti ve MG PO June 25, 2023 12:00am Start: 12-28-2022 End: 12-28-2023 take 1 tablet by mouth every twenty-four hours Metformin 750 mg tablet extended release 24 hr Active MG PO June 25, 2023 12:00am Complies with drug therapy Start: 08-17-2022 take 1000 mg by mout h once daily METFORMIN HCL ER PO Take 1,000 mg by mouth daily 0 08/17/2022 Active 24 hr metoprolol succinate 25 mg extended release oral tablet (20 sources) beta-Adrenergic Navdeep Start: 12-11-2024 take 1 tablet by mouth once daily in the morning Metoprolol Succinate 25 mg tablet extended release 24 hr Active 25 MG PO Every morning December 11, 2024 12:00am Complies with drug therapy Start: 08-28-2023 End: 08-27-2024 take 1 tablet by mouth every twenty-four hours in the morning metoprolol succinate XL (Toprol-XL) 25 MG 24 hr tablet Take 25 mg by mouth in the morning. 08/28/2023 Active morphine (PF) injection 2 mg (1 source) Start: 07-20-2023 morphine (PF) injection 2 mg nitroglycerin 0.4 mg sublingual tablet (20 sources) Nitrate Vasodilator Start: 09-04-2011 nitroglyce rin (Nitrostat) 0.[address] 0.4 mg under the tongue every 5 (five) minutes if needed. 09/04/2011 Active nystatin 100 unt/mg topical powder (20 sources) Polyene Antifungal nystatin (Myc ostatin) 611738 UNIT/GM powder every 12 (twelve) hours. Active End: 07-20-2023 nystatin (MYCOSTATIN) 621619 UNIT/GM powder Apply 1 application topically in the morning and 1 application in the evening. 0 07/20/2023 Discontinued (Stop Taking at Discharge) ondansetron (ZOFRAN-ODT) disintegrating tablet 4 mg (1 source) Start: 07-20-2023 ondansetron (ZOFRAN-ODT) disintegrating tablet 4 mg 24 hr oxybutynin chloride 10 mg extended release oral tablet (20 sources) Cholinergic Muscarinic Antagonist Start: 06-25-2023 take 1 tablet by mouth every twenty-four hours Oxybutynin Chloride 10 mg tablet extended release 24hr Active MG PO June 25, 2023 12:00am Complies with drug therapy Start: 06-25-2023 Oxybutynin Chl oride Active MG PO June 25, 2023 12:00am Start: 09-13-2022 take 1 tablet by naida th once daily in the morning oxybutynin XL (Ditropan-XL) 10 MG 24 hr tablet Indications: Mixed stress and urge urinary incontinence TAKE 1 TABLET BY MOUTH EVERY MORNING 100 tablet 3 05/27/2024 Active Start: 09-13-2022 take 1 tablet by naida th every twenty-four hours in the morning oxybutynin XL (Ditropan-XL) 10 MG 24 hr tablet Indications: Mixed stress and urge urinary incontinence Take 1 tablet (10 mg) by mouth in the morning. 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 90 capsule 3 08/19/2024 Active Start: 11-05-2023 End: 07-06-2024 take 1 capsule by mouth in the morning, then take 1 capsule by mouth in the evening, then take 1 capsule by mouth at bedtime pregabalin (Lyrica) 150 MG capsule Indications: Pain Take 1 capsule (150 mg) by mouth in the morning and 1 capsule (150 mg) in the evening and 1 capsule (150 mg) before bedtime. 90 capsule 06/16/2024 Active Start: 07-20-2023 take 200 mg by mouth three times daily 200 mg, Oral, 3 times daily, First dose on Sun07/20/23 at 1645, Until Discontinued Start: 06-25-2023 Pregabalin Act angelo MG PO June 25, 2023 12:00am Start: 04-30-2014 End: 12-11-2024 Pregabalin 200 mg capsule Discontinued MG PO June 25, 2023 12:00am December 11, 2024 12:21pm primidone 250 mg oral tablet (20 sources) Anti-epileptic Agent Start: 11-01-2023 End: 12-11-2024 take 1 tablet by mouth at bedtime primidone (Mysoline) 250 MG tablet Indications: Other generalized epilepsy and epileptic syndromes, not intractable, without status epilepticus (HCC) TAKE 1 TABLET BY MOUTH AT BEDTIME 90 tablet 1 03/27/2024 Active Start: 07-20-2023 take 250 mg by mouth once olga y 250 mg, Oral, NIGHTLY, First dose on Sun07/20/23 at 2100, Until Discontinued Start: 06-25-2023 take 1 tablet by naida th once daily at bedtime Primidone 50 mg tablet Active 50 MG PO Daily at bedtime June 25, 2023 12:00am Complies with drug therapy Start: 06-25-2023 Primidone Acti ve MG PO [...] (LIST CLEANUP) rOPINIRole 0.25 mg oral tablet (11 sources) Nonergot Dopamine Agonist Start: 06-25-2023 take 1 tablet by mouth three times daily Ropinirole 0.25 mg tablet Active 0.25 MG PO Three times daily June 25, 2023 12:00am Complies with drug therapy Start: 09-13-2022 take 0.25 mg by mout h four times daily 0.25 mg, Oral, 4 TIMES DAILY, First dose on Sun07/20/23 at 1700, Until Discontinued tiZANidine 4 mg oral tablet (20 sources) Central alpha-2 Adrenergic Agonist Start: 06-25-2023 take 1 tablet by mouth once Tizanidine 4 mg tablet Active 4 MG PO .[id number] June 25, 2023 12:00am Complies with drug therapy Start: 06-25-2023 Tizanidine Act angelo MG PO June 25, 2023 12:00am Start: 05-31-2023 End: 06-30-2024 take 1 tablet by mouth every six hours for muscle spasms tiZANidine (Zanaflex) 4 MG tablet Indications: Fibromyalgia TAKE 1 TABLET BY MOUTH EVERY 6 HOURS IF NEEDED FOR MUSCLE SPASMS 30 tablet 10 06/30/2024 Active Start: 09-15-2022 take 4 mg by mouth f our times daily 4 mg, Oral, 4 TIMES DAILY, First dose on Sun07/20/23 at 1700, Until Discontinued varenicline 1 mg oral tablet (20 sources) Partial Cholinergic Nicotinic Agonist Start: 06-30-2024 End: 06-14-2025 take 1 tablet by mouth in the morning varenicline (Chantix) 1 MG tablet Indications: Tobacco abuse Take 1 tablet (1 mg) by mouth in the morning and 1 tablet (1 mg) before bedtime. Take with full glass of water. 60 tablet 5 12/16/2024 06/14/2025 Active vitamin b12 1 mg oral capsule (20 sources) Vitamin B12 Start: 12-11-2024 take 1 capsule by mouth once daily Cyanocobalamin (Vitamin B-12) 1,000 mcg capsule Active 1000 MCG PO daily December 11, 2024 12:00am Complies with drug therapy Start: 07-11-2022 take 1 tablet by naida th once daily cyanocobalamin (Vitamin B-12) 1000 MCG tablet Take 1,000 mcg by mouth Daily 07/11/2022 Active take 1000 ug by mout h once daily Cyanocobalamin (VITAMIN B12 PO) Take 1,000 mcg by mouth daily 0 Active vortioxetine 10 mg oral tablet (20 sources) Start: 12-19-2023 End: 07-15-2024 take 1 tablet by mouth once daily Vortioxetine HBr (Trintellix) 10 MG tablet Indications: Moderate episode of recurrent major depressive disorder (HCC) Take 10 mg by mouth Daily 30 tablet 11 07/15/2024 Active Start: 12-06-2023 take 1 tablet by naida th once daily Vortioxetine HBr (Trintellix) 10 MG tablet Indications: Moderate episode of recurrent major depressive disorder (CMS/HCC) Take 10 mg by mouth Daily 30 tablet 11 12/06/2023 Active Wound Dressings (Medihoney wound/burn) gel (2 sources) Start: 10-09-2024 End: 10-09-2024 Wound Dressings (Medihoney wound/burn) gel Indications: Foot ulcer, left, with fat layer exposed (HCC) Apply 1 application topically 1 (one) time for 1 dose Applied to ulcer to toe daily 15 mL 2 10/09/2024 10/09/2024 Active Completed/Discontinued Medications Medication Drug Class(es) Dates Sig (Normalized) Sig (Original) calcium chloride 0.0014 meq/ml / potassium chloride 0.004 meq/ml / sodium chloride 0.103 meq/ml / sodium lactate 0.028 meq/ml injectable solution (1 source) Start: 07-20-2023 End: 07-20-2023 lactated ringers IV soln infusion diclofenac sodium 0.01 mg/mg topical gel (3 sources) Nonsteroidal Anti-inflammatory Drug Start: 09-23-2022 End: 05-24-2023 diclofenac sodium (VOLTAREN) 1 % GEL Apply topically 4 times daily 0 09/23/2022 05/24/2023 Discontinued (LIST CLEANUP) entacapone 200 mg oral tablet (11 sources) Upcesaqh-W-Yrwlakwb ansferase Inhibitor End: 02-04-2024 entacapone (Comtan) 200 MG tablet Take 200 mg by mouth in the morning and 200 mg at noon and 200 mg in the evening and 200 mg before bedtime. 02/04/2024 Discontinued (Therapy completed) 5 ml sodium chloride 9 mg/ml injection (4 sources) Start: 07-20-2023 take 1 dose intravenously twice daily 5-40 mL, IntraVENous, EVERY 12 HOURS SCHEDULED (2 times per day), First dose on Sun07/20/23 at 2100, Until Discontinued For Line Patency: Peripheral IV = 5 mL; Midline or Central Line = 10 mL/lumen.&nbsp ; If following IV push medication, administer flush at same rate as the IV push. Flush volume is determined by type of infusion therapy being given. For non-viscous solutions use: Peripher al IV = 5 mL Midline or Central Line = 10 mL/lumen &nbs p;For viscous solutions (i.e. blood components, parenteral nutrition, contrast media, or after obtaining blood sample) use: Peripher al IV = 10 mL Midline or Central [...] or Central Line = 20 mL/lumen Post-op vancomycin 1000 mg IVPB in 2 50 mL NS addavial (1 source) Start: 07-21-2023 End: 07-21-2023 1,000 mg, IntraVENous, EVERY 12 HOURS, 1 dose, First dose on 07/21/23 at 0100 Antimicrobial Indications: Surgical Prophylaxis Post-op Problems Active Problems Problem Classification Problem Date Documented Date Episodic/Chronic Acquired foot deformities (15 sources) Foot drop, left foot; Translations: [Left foot drop] Onset: 02-02-2023 Episodic Anxiety disorders (20 sources) Mixed anxiety and depressive disorder; Translations: [Other specified anxiety disorders] Onset: 08-10-2022 08-10-2022 Chronic Chronic obstructive pulmonary disease and bronchiectasis (20 sources) Acute exacerbation of chronic obstructive airways disease; Translations: [Chronic obstructive pulmonary disease with (acute) exacerbation] Onset: 08-10-2022 Resolved: 06-27-2023 08-10-2022 Chronic Chronic ulcer of skin (16 sources) Non-pressure chronic ulcer of other part of left foot with fat layer exposed; Translations: [Ulcer of other part of foot] 09-18-2024 Chronic Congestive heart failure; nonhypertensive (20 sources) Acute on chronic diastolic heart failure; Translations: [Acute on chronic diastolic (congestive) heart failure] Onset: 03-11-2015 Resolved: 04-23-2023 04-23-2023 Chronic Coronary atherosclerosis and other heart disease (20 sources) Coronary arteriosclerosis; Translations: [Atherosclerotic heart disease of three affiliated coronary artery without angina pectoris] Onset: 08-10-2022 08-10-2022 Chronic Diabetes mellitus with complications (20 sources) Autonomic neuropathy due to type 2 diabetes mellitus; Translations: [Type 2 diabetes mellitus with diabetic autonomic (poly)neuropathy] Onset: 08-10-2022 08-10-2022 Chronic Disorders of lipid metabolism (20 sources) Hyperlipidemia; Translations: [Hyperlipidemia, unspecified] Onset: 08-10-2022 08-10-2022 Chronic Epilepsy; convulsions (2 sources) Epilepsy; Translations: [Other generalized epilepsy and epileptic syndromes, not intractable, without status epilepticus] 06-30-2024 Chronic Esophageal disorders (20 sources) Gastroesophageal reflux disease; Translations: [Gastro-esophageal reflux disease without esophagitis] Onset: 05-08-2008 08-10-2022 Chronic Essential hypertension (20 sources) Hypertensive disorder; Translations: [Essential (primary) hypertension] Onset: 10-31-2022 04-23-2023 Chronic Fracture of upper limb (2 sources) Closed fracture of base of fifth metacarpal; Translations: [Nondisplaced fracture of base of fifth metacarpal bone, right hand, initial encounter for closed fracture] 12-06-2023 Episodic Genitourinary symptoms and ill-defined conditions (20 sources) Mixed urinary incontinence; Translations: [Mixed incontinence] Onset: 08-10-2022 08-10-2022 Chronic Headache; including migraine (20 sources) Migraine with aura; Translations: [Migraine with aura, not intractable, without status migrainosus] Onset: 05-21-2008 08-10-2022 Chronic Heart valve disorders (20 sources) Aortic stenosis, non-rheumatic ; Translations: [Nonrheumatic aortic (valve) stenosis] Onset: 10-31-2022 04-23-2023 Chronic Menopausal disorders (20 sources) Decreased estrogen level; Translations: [Other primary ovarian failure] Onset: 08-10-2022 08-10-2022 Chronic Mood disorders (4 sources) Recurrent major depression in full remission; Translations: [Major depressive disorder, recurrent, in full remission] 12-31-2023 Chronic Mycoses (3 sources) Pain in toe; Translations: [Tinea unguium] 05-29-2024 Episodic Occlusion or stenosis of precerebral arteries (20 sources) Occlusion and stenosis of bilateral carotid arteries; Translations: [Bilateral stenosis of carotid arteries] Onset: 01-25-2022 08-10-2022 Chronic Open wounds of extremities (5 sources) Injury of left foot; Translations: [Unspecified open wound, left foot, initial encounter] 04-14-2024 Episodic Osteoarthritis (20 sources) Idiopathic osteoarthritis; Translations: [Primary osteoarthritis, unspecified site] Onset: 05-08-2008 08-10-2022 Chronic Other acquired deformities (2 sources) Spondylolisthesis, site unspecified; Translations: [Spondylolisthesis, site unspecified] Onset: 05-24-2023 Episodic Other aftercare (6 sources) Patient encounter status; Translations: [Encounter for therapeutic drug level monitoring] 02-04-2024 Episodic Other congenital anomalies (20 sources) Congenital spondylolisthesis; Translations: [Congenital spondylolisthesis] Onset: 09-30-2013 04-23-2023 Chronic Other ear and sense organ disorders (20 sources) Mixed conductive AND sensorineural hearing loss; Translations: [Mixed conductive and sensorineural hearing loss, unilateral, right ear with restricted hearing on the contralateral side] Onset: 08-10-2022 08-10-2022 Chronic Other hereditary and degenerative nervous system conditions (20 sources) Multiple system atrophy; Translations: [Multi-system degeneration of the autonomic nervous system] Onset: 08-10-2022 08-10-2022 Chronic Other hereditary and degenerative nervous system conditions (7 sources) Isolated cervical dystonia; Translations: [Spasmodic torticollis] 02-04-2024 Chronic Other nervous system disorders (20 sources) Bilateral brachial plexopathy of upper limbs; Translations: [Brachial plexus disorders] Onset: 08-10-2022 08-10-2022 Chronic Other nervous system disorders (20 sources) Carpal tunnel syndrome of left wrist; Translations: [Carpal tunnel syndrome, left upper limb] Onset: 08-10-2022 08-10-2022 Chronic Other nervous system disorders (20 sources) Difficulty walking; Translations: [Difficulty in walking, not elsewhere classified] Onset: 08-10-2022 08-10-2022 Chronic Other nervous system disorders (20 sources) Polyneuropathy; Translations: [Polyneuropathy, unspecified] Onset: 08-10-2022 08-10-2022 Chronic Other nervous system disorders (20 sources) Cervical myelopathy; Translations: [Disease of spinal cord, unspecified] Onset: 05-28-2020 04-23-2023 Chronic Other nervous system disorders (2 sources) Neuropathy; Translations: [Polyneuropathy, unspecified] 02-04-2024 Chronic Other nervous system disorders (2 sources) Spinal cord disease; Translations: [Disease of spinal cord, unspecified] 06-30-2024 Chronic Other nervous system disorders (7 sources) Impaired cognition; Translations: [Other symptoms and signs involving cognitive functions and awareness] 02-04-2024 Episodic Other upper respiratory disease (20 sources) Seasonal allergic rhinitis; Translations: [Other seasonal allergic rhinitis] Onset: 08-10-2022 08-10-2022 Chronic Hailee-; endo-; and myocarditis; cardiomyopathy (except that caused by tuberculosis or sexually transmitted disease) (20 sources) Primary cardiomyopathy; Translations: [Cardiomyopathy, unspecified] Onset: 03-08-2012 04-23-2023 Chronic Peripheral and visceral atherosclerosis (20 sources) Atherosclerosis of three affiliated arteries of extremities with rest pain, bilateral legs; Translations: [Peripheral vascular disease, unspecified] Onset: 11-25-2021 Chronic Residual codes; unclassified (2 sources) Dependence on wheelchair; Translations: [Dependence on wheelchair] 2024 Chronic Residual codes; unclassified (5 sources) Pain; Translations: [Pain, unspecified] 02-04-2024 Episodic Rheumatoid arthritis and related disease (20 sources) Undifferentiated inflammatory polyarthritis; Translations: [Inflammatory polyarthropathy] Onset: 08-10-2022 08-10-2022 Chronic Spondylosis; intervertebral disc disorders; other back problems (20 sources) Intervertebral disc disorder of lumbar region with myelopathy; Translations: [Intervertebral disc disorders with myelopathy, lumbar region] Onset: 11-19-2008 05-07-2023 Chronic Unclassified (20 sources) Parkinson's disease; Translations: [Parkinson's disease] Onset: 08-10-2022 08-10-2022 Chronic Unclassified (7 sources) Parkinsonism; Translations: [Parkinson's plus syndrome (CMS/HCC)] 02-04-2024 Chronic Unclassified (1 source) Low back pain, unspecified; Translations: [Low back pain, unspecified] Onset: 10-26-2022 Unclassified (2 sources) Call for appointment. I would like to see you in 2 to 3 weeks. Past or Other Problems Problem Classification Problem Date Documented Date Episodic/Chronic Cardiac dysrhythmias (20 sources) Palpitations; Translations: [Palpitations] Onset: 08-16-2011 04-23-2023 Episodic Malaise and fatigue (20 sources) Asthenia; Translations: [Weakness] Onset: 08-10-2022 08-10-2022 Episodic [...] Onset: 01-22-2022 Episodic Other connective tissue disease (20 sources) Fibromyalgia; Translations: [Fibromyalgia] Onset: 08-10-2022 08-10-2022 Episodic Other connective tissue disease (20 sources) Muscle weakness; Translations: [Muscle weakness (generalized)] Onset: 08-10-2022 08-10-2022 Episodic Other connective tissue disease (20 sources) Neurogenic claudication; Translations: [Other symptoms and signs involving the nervous system] Onset: 09-30-2013 04-23-2023 Episodic Other ear and sense organ disorders (20 sources) Hearing loss of right ear; Translations: [Unspecified hearing loss, right ear] Onset: 08-10-2022 Resolved: 06-27-2023 08-10-2022 Chronic Other ear and sense organ disorders (20 sources) Tinnitus; Translations: [Tinnitus, unspecified ear] Onset: 08-10-2022 08-10-2022 Episodic Other lower respiratory disease (20 sources) Solitary nodule of lung; Translations: [Solitary pulmonary nodule] Onset: 08-10-2022 08-10-2022 Episodic Other nervous system disorders (20 sources) Abnormal gait; Translations: [Unspecified abnormalities of gait and mobility] Onset: 08-10-2022 08-10-2022 Episodic Other nervous system disorders (20 sources) Incoordination; Translations: [Unspecified lack of coordination] Onset: 08-10-2022 08-10-2022 Episodic Other nervous system disorders (20 sources) H/O: brain disorder; Translations: [Personal history of other diseases of the nervous system and sense organs] Onset: 10-31-2022 Resolved: 06-27-2023 04-23-2023 Episodic Other screening for suspected conditions (not mental disorders or infectious disease) (20 sources) Raised cardiac enzyme or marker; Translations: [Other specified abnormal findings of blood chemistry] Onset: 04-03-2023 Resolved: 06-27-2023 04-23-2023 Episodic Pneumonia (except that caused by tuberculosis or sexually transmitted disease) (20 sources) Pneumonia; Translations: [Pneumonia, unspecified organism] Onset: 04-03-2023 Resolved: 06-27-2023 04-23-2023 Episodic Residual codes; unclassified (20 sources) Persistent insomnia; Translations: [Insomnia, unspecified] Onset: 05-08-2008 08-10-2022 Episodic Residual codes; unclassified (20 sources) Tobacco user; Translations: [Tobacco use] Onset: 07-13-2015 04-23-2023 Episodic Skin and subcutaneous tissue infections (16 sources) Cellulitis of left foot; Translations: [Cellulitis of left lower limb] Onset: 05-22-2024 05-29-2024 Episodic Spondylosis; intervertebral disc disorders; other back problems (20 sources) Radiculopathy, lumbosacral region; Translations: [Spinal stenosis, lumbar region without neurogenic claudication] Onset: 09-30-2013 Episodic Substance-related disorders (20 sources) Heavy cigarette smoker; Translations: [Nicotine dependence, cigarettes, uncomplicated] Onset: 08-10-2022 Resolved: 06-27-2023 08-10-2022 Chronic Unclassified (1 source) Low back pain, unspecified; Translations: [Low back pain, unspecified] Onset: 10-26-2022 Results Test Name Value Interpretation Reference Range Facility Creatinineon 12-11-2024 Creatinine Clr Calc Pharmacy 51.04 Normal [facility] Comment on above: Result Comment: PERF ORMED BY: [facility] [place] [address] PATHOLOGIST CHIEF CLINICAL DIETITIAN LAURA MARIA M.D. Performed By: #### C RELASHANDA, BUN #### [place] [id number] [place] GFR/1.73 sq M.predicted MDRD (S/P/Bld) [Vol rate/Area] mL/min/{1.73_m2} Normal [facility] Comment on above: Performed By: #### C RELASHANDA, BUN #### [address] Creatinine [Mass/volume] in Serum or PlasmaOrdered By: Aron Rain on 12-11-2024 Creatinine [Mass/Vol] 0.63 mg/dL Normal 0.60-1.20 [facility] Comment on above: Performed By: #### C RELASHANDA, BUN #### [address] Glomerular filtration rate [ Volume Rate/Area] in Serum, Plasma or Blood by CreatinineOrdered By: Aron Rain on 12-11-2024 Glomerular filtration rate [Volume Rate/Area] in Serum, Plasma or Blood by Creatinine > 60.0 mL/Min [facility] No Panel InformationOrdered By: Aron Rain on 12-11-2024 Pharmacy Creatinine Clearance (Chem 51.04 [facility] Urea nitrogen [Mass/volume] in Serum or PlasmaOrdered By: Aron Rain on 12-11-2024 Urea nitrogen [Mass/Vol] 19 mg/dL Normal 7-25 [facility] Comment on above: Performed By: #### C RELASHANDA, BUN #### [place] [id number] [facility] Laboratory - Hematology and Cell countson 2024 HbA1c (Bld) [Mass fraction] 5.9 % [facility] No Panel Informationon 12-08 [facility] Orders Onlyon 11-12-2024 Orders Only [id number] Mirna Quezada 1950 F Date Provider Department [place] 11/12/2024 [id number], HISTORICAL BH CARD [facility] Family History Problem Relation Age of Onset Hypertension Mother ALS Father Family Status - Relation Status Age at Mother Father Normal [facility] SEGMENTAL BLOOD PRESSUREon 0 10-30-[address] [address] Cardiology Report Signed Patient: MIRNA QUEZADA MR#: [id number] : 1950 Acct:[id number] Age/Sex: 73 / F ADM Date: 10/29/24 Loc: [facility] Attending Dr: FORTUNATO CHOI Ordering Physician: FORTUNATO CHOI Date of Service: 10/29/24 Procedure(s): CA segmental UE or LE PAZ Accession Number(s): [id number] cc: VILLA NICOLAS ; FORTUNATO CHOI 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 Interpretive Statements [...] 10/30/24 0903 10/30/24 0904 DD/ 1407 TD/TT: Audit Mgr: [facility] Radiology, Radiologist, - 10/30/2024 [place] [address] Cardiology Report Signed Patient: MIRNA QUEZADA MR#: [id number] : 1950 Acct:[id number] Age/Sex: 73 / F ADM Date: 10/29/24 Loc: CARD Attending Dr: FORTUNATO CHOI Ordering Physician: FORTUNATO CHOI Date of Service: 10/29/24 Procedure(s): CA segmental UE or LE PAZ Accession Number(s): [id number] cc: VILLA NICOLAS ; FORTUNATO CHOI [facility] Test Date: 2024-10-29 Pat Name: MIRNA QUEZADA Department: Room: - Gender: Female Mechanical 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 Interpretive Statements [...] 10/30/24 0903 10/30/24 0904 DD/ 1407 TD/TT: Audit Mgr: [employer] SEGMENTAL BLOOD PRESSUREOrde red By: Radiologist Radiology on 10-30-2024 [employer] Work Phone: SEGMENTAL BLOOD PRESSUREon 0 10-29-2024 Radiology Study observation (narrative) [employer] XR Foot - left 3 [facility] Result: Degenerative changes to the midfoot and 1st MPJ region of the left foot with negative osteolysis noted to bone in the left 2nd digit and negative gas noted in tissue [facility] [employer] Radiology Study observation (narrative) [facility] [employer] 36on 09-10-[address] Nicolas's office called and said Dr. Nicolas wasn't aware patient was already on aspirin and Plavix, so they made patient aware to stop Persantine. Presley Wong, FIBREGLASS LAMINATOR notified. [place] 36on 09-03-2024 36 Please find out why he is ordering persantine. Thanks! [place] 36 Please find out why he is ordering persantine. Thanks! [place] Telephoneon 09-01-2024 Telephone [id number] Mirna Quezada W 1950 F Date Provider Department Center 09/01/2024 895-KATHERINE GELLER KEYONA Anaya Family History Problem Relation Age of Onset Hypertension Mother ALS Father Family Status - Relation Status Age at Mother Father [place] Office Visiton 05-22-2024 Follow-up visit [id number] Mirna Quezada W 1950 F Date Provider Department Center 05/22/2024 166-PRESELY WONG Family History Problem Relation Age of Onset Hypertension Mother ALS Father Family Status - Relation Status Age at Mother Father Level of Service:59115 [place] OFFICE/OUTPATIENT ESTABLISHED MOD MDM 30 MIN Reason for Visit and Comments: Coronary Artery Disease [187] Hypertension [528756] Congestive Heart Failure [127] Valve Disorder [3372] Normal [facility] US ankle/arm indiceson 04-14 US ankle/arm indices [facility] [address] [place] [address] Ultrasound Report Signed Patient: Mirna Quezada MR#: [id number] : 1950 Acct:[id number] Age/Sex: 73 / F ADM Date: 04/14/24 Loc: [facility] Room: Type: [facility] Attending Dr: Aron Rain MD Ordering Provider: Aron Rain MD Date of Service: 04/14/24 US/US ankle/arm indices: I73.9 - Peripheral vascular disease, unspecified Copies to: Aron Rain MD LOWER EXTREMITY SEGMENTAL ARTERIAL DOPSCAN (PVR) INDICATION: Nonhealing wound PROCEDURE: Right arm blood pressure is 132 , left is 95 . Pressures at the right ankle are 111 using the posterior tibial artery, and 117 using the dorsalis pedis artery with ankle-brachial index of 0.84 0.89 . Pressures at the left ankle are 110 using the posterior tibial artery, and 93 with ankle-brachial index of 0.83 0.70 . Wave forms by plethysmography are mildly blunted US/US ankle/arm indices IMPRESSION: Mild bilateral peripheral vascular occlusive disease at rest Impression dictated by: Aron Rain M.D.04/14/2024 12:16 PM Dictation Location: [place] [address] Tech: [employer] Transcribed By: FLOYD 04/14/24 1216 Dictated By: Aron Rain MD 04/14/24 1215 Signed By: 04/14/24 1216 Normal [facility] Office Visiton 12-11-2023 Follow-up visit [id number] Mirna Quezada 1950 F Date Provider Department Center 12/11/2023 3848-MARLENE AHUMADA Family History Problem Relation Age of Onset Hypertension Mother ALS Father Family Status - Relation Status Age at Mother Father Level of Service:89851 [place] OFFICE/OUTPATIENT ESTABLISHED LOW MDM [address] [facility] Glucose,Whole Bloodon 2023 Glucose [Mass/Vol] 116 mg/dL High 65-105 [facility] POC Glucose Fingerstickon Glucose [Mass/Vol] 116 mg/dL High 65 - 105 mg/dL [facility] Interpretation and review of laboratory results Abnormal [facility] FLUORO FOR SURGICAL PROCEDUR ESon 07-20-2023 FLUORO FOR SURGICAL PROCEDURES Radiology exam is complete. No Radiologist dictation. Please follow up with ordering provider. Final result Normal [facility] Glucose,Whole Bloodon 2023 Glucose [Mass/Vol] 149 mg/dL High 65-105 [facility] Glucose [Mass/Vol] 159 mg/dL High 65-105 [facility] Glucose [Mass/Vol] 131 mg/dL High 65-105 [facility] Guidance-- during surgeryon 07-20-2023 Radiology exam is complete. No Radiologist dictation. Please follow up with ordering provider. PN RIS CONSOLIDATED POC Glucose Fingerstickon Glucose [Mass/Vol] 149 mg/dL High 65 - 105 mg/dL [facility] Interpretation and review of laboratory results Abnormal [facility] Glucose [Mass/Vol] 159 mg/dL High 65 - 105 mg/dL [facility] Interpretation and review of laboratory results Abnormal [facility] Interpretation and review of laboratory results Abnormal [facility] Basic Metabolic Panelon 04-27 Anion gap [Moles/Vol] 12 mmol/L 9 - 17 mmol/L [facility] Calcium [Mass/Vol] 9.0 mg/dL 8.6 - 10. 4 mg/dL [facility] Chloride [Moles/Vol] 104 mmol/L 98 - 10 7 mmol/L [facility] CO2 [Moles/Vol] 25 mmol/L 20 - 31 mmol/L [facility] Creatinine [Mass/Vol] 0.5 mg/dL 0.5 - 0.9 mg/dL [facility] GFR/1.73 sq M.predicted MDRD (S/P/Bld) [Vol rate/Area] - PINF [facility] Comment on above: These results are [...] 105 mg/dL High 70 - 99 mg/dL [facility] Interpretation and review of laboratory results Abnormal [facility] Potassium [Moles/Vol] 4.4 mmol/L 3.7 - 5.3 mmol/L [facility] Sodium [Moles/Vol] 141 mmol/L 135 - 144 mmol/L [facility] Urea nitrogen [Mass/Vol] 14 mg/dL 8 - 23 mg/dL [facility] Urea nitrogen/Creatinine [Mass ratio] 28 mg/mg High 9 - 20 [facility] Basic Metabolic Profon Anion gap [Moles/Vol] 12 mmol/L Normal 9-17 [facility] Comment on above: Performed By: #### B BECCA, CBC #### [facility] [address] [place] [address] [employer] Gate: Lucas Pink MD #### GLYHGB #### [address] [phone] [employer] Gate: Chalo Rendon MD BUN/CRE Ratio 28 High 9-20 [facility] Comment on above: Performed By: #### B MP, CBC #### [facility] [address] [place] [address] Agent [employer] Gate: Lucas Pink MD #### GLYHGB #### [address] [phone] [employer] Gate: Chalo Rendon MD Calcium [Mass/Vol] 9.0 mg/dL Normal 8.6-10.4 [facility] Comment on above: Performed By: #### B MP, CBC #### [facility] [address] [place] [address] Agent [employer] Gate: Lucas Pink MD #### GLYHGB #### [address] [address] Agent [employer] Gate: Chalo Rendon MD Chloride [Moles/Vol] 104 mmol/L Normal 98-107 [facility] Comment on above: Performed By: #### B MP, CBC #### [facility] [address] [place] [phone] [employer]: Lucas Pink MD #### GLYHGB #### [address] [address] [employer]: Chalo Rendon MD CO2 [Moles/Vol] 25 mmol/L Normal 20-31 [facility] Comment on above: Performed By: #### B MP, CBC #### [facility] [address] [place] [address] [employer]: Lucas Pink MD #### GLYHGB #### [address] [address] [employer]: Chalo Rendon MD Creatinine [Mass/Vol] 0.5 mg/dL Normal 0.5-0.9 [facility] Comment on above: Performed By: #### B MP, CBC #### [facility] [address] [place] [address] [employer]: Lucas Pink MD #### GLYHGB #### [address] [address] Agent [employer] Gate: Chalo Rendon MD GFR/1.73 sq M.predicted among non-blacks MDRD (S/P/Bld) [Vol rate/Area] mL/min/{1.73_m2} Normal >60 [facility] Comment on above: Result Comment: [...] CBC #### [facility] [address] [place], [place] [phone] [employer]: Lucas Pink MD #### GLYHGB #### [address] [phone] Agent [employer]: Chalo Rendon MD Glucose [Mass/Vol] 105 mg/dL High 70-99 [facility] Comment on above: Performed By: #### B BECCA, CBC #### [facility] [address] [place], [place] [phone] [employer]: Lucas Pink MD #### GLYHGB #### [address] [phone] Agent [employer] Gate: Chalo Rendon MD Potassium [Moles/Vol] 4.4 mmol/L Normal 3.7-5.3 [facility] Comment on above: Performed By: #### B BECCA, CBC #### [facility] [address] [place] [address] Agent [employer]: Lucas Pink MD #### GLYHGB #### [address] [phone] Agent [employer]: Chalo Rendon MD Sodium [Moles/Vol] 141 mmol/L Normal 135-144 [facility] Comment on above: Performed By: #### B MP, CBC #### [facility] [place] [address] Agent T[employer] Gate: Lucas Pink MD #### GLYHGB #### [address] [address] [employer]: Chalo Rendon MD Urea nitrogen [Mass/Vol] 14 mg/dL Normal 8-23 [facility] Comment on above: Performed By: #### B MP, CBC #### [facility] [address] [place] [address] [employer]: Lucas Pink MD #### GLYHGB #### [address] [phone] Agent T[employer] Gate: Chalo Rendon MD CBCon 05-24-2023 Erythrocyte distribution width (RBC) [Ratio] 15.0 % High 11.8-14.4 [facility] Comment on above: Performed By: #### B MP, CBC #### [facility] [address] [place] [phone] [employer]: Lucas Pink MD #### GLYHGB #### [address] [address] Agent [employer] Gate: Chalo Rendon MD Hematocrit (Bld) [Volume fraction] 46.0 % Normal 36.3-47.1 [facility] Comment on above: Performed By: #### B MP, CBC #### [facility] [address] [place] [address] [employer]: Lucas Pink MD #### GLYHGB #### [address] [address] Agent [employer]: Chalo Rendon MD Hemoglobin (Bld) [Mass/Vol] 15.4 g/dL High 11.9-15.1 [facility] Comment on above: Performed By: #### B MP, CBC #### [facility] [address] [place] [address] [employer]: Lucas Pink MD #### GLYHGB #### [address] [address] Agent [employer] Gate: Chalo Rendon MD MCH (RBC) [Entitic mass] 33.0 pg Normal 25.2-33.5 [facility] Comment on above: Performed By: #### B MP, CBC #### [facility] [address] [place] [phone] [employer]: Lucas Pink MD #### GLYHGB #### [address] [address] Agent [employer]: Chalo Rendon MD MCHC (RBC) [Mass/Vol] 33.5 g/dL Normal 28.4-34.8 [facility] Comment on above: Performed By: #### B MP, CBC #### [facility] [address] [place] [id number] [employer]: Lucas Pink MD #### GLYHGB #### [address] [address] Agent [employer] Gate: Chalo Rendon MD MCV (RBC) [Entitic vol] 98.5 fL Normal 82.6-102.9 [facility] Comment on above: Performed By: #### B MP, CBC #### [facility] [facility] [address] [place] [address] [employer]: Lucas Pink MD #### GLYHGB #### [address] [place] [address] Agent Ticketing Gate: Chalo Rendon MD NRBC Automated 0.0 per 100 WBC Normal 0.0 [facility] Comment on above: Performed By: #### B MP, CBC #### [facility] [address] [place] [address] Agent Ticketing Gate: Lucas Pink MD #### GLYHGB #### [address] [address] Agent Ticketing Gate: Chalo Rendon MD Platelet mean volume (Bld) [Entitic vol] 11.6 fL Normal 8.1-13.5 [facility] Comment on above: Performed By: #### B MP, CBC #### [facility] [address] [place] [address] Agent Ticketing Gate: Lucas Pink MD #### GLYHGB #### [address] [address] Agent Ticketing Gate: Chalo Rendon MD Platelets (Bld) [#/Vol] 168 10*3/uL Normal 138-453 [facility] Comment on above: Performed By: #### B MP, CBC #### [facility] [address] [place] [address] Agent Ticketing Gate: Lucas Pink MD #### GLYHGB #### [address] [address] Agent Ticketing Gate: Chalo Rendon MD RBC (Bld) [#/Vol] 4.67 10*6/uL Normal 3.95-5.11 [facility] Comment on above: Performed By: #### B MP, CBC #### [facility] [place] [address] Agent Ticketing Gate: Lucas Pink MD #### GLYHGB #### [facility] [address] [place], [place] [id number] Agent Ticketing Gate: Chalo Rendon MD WBC (Bld) [#/Vol] 10.7 10*3/uL Normal 3.5-11.3 [facility] Comment on above: Performed By: #### B MP, CBC #### [facility] [address] [place] [address] Agent Ticketing Gate: Lucas Pink MD #### GLYHGB #### [facility] [address] [place], [place] [id number] Agent Ticketing Gate: Chalo Rendon MD Erythrocyte distribution width (RBC) [Ratio] 15.0 % High 11.8 - 14.4 % [facility] Hematocrit (Bld) [Volume fraction] 46.0 % 36.3 - 47.1 % [facility] Hemoglobin (Bld) [Mass/Vol] 15.4 g/dL High 11.9 - 15.1 g/dL [facility] Interpretation and review of laboratory results Abnormal [facility] MCH (RBC) [Entitic mass] 33.0 pg 25.2 - 33.5 pg [facility] MCHC (RBC) [Mass/Vol] 33.5 g/dL 28.4 - 34.8 g/dL [facility] MCV (RBC) [Entitic vol] 98.5 fL 82.6 - 102.9 fL [facility] Nucleated RBC/100 WBC (Bld) [Ratio] 0.0 % 0.0 per 100 WBC [facility] Platelet mean volume (Bld) [Entitic vol] 11.6 fL 8.1 - 13.5 fL [facility] Platelets (Bld) [#/Vol] 168 10*3/uL [facility] RBC (Bld) [#/Vol] 4.67 10*6/uL 3.95 - 5.1 1 m/uL [facility] WBC other (Bld) [#/Vol] 10.7 [facility] Hemoglobin A1Con 02-29-2024 Glucose [Mass/Vol] 140 mg/dL Normal [facility] Comment on above: Result Comment: The ADA and AACC recommend providing the estimated average glucose result to permit better patient understanding of their HBA1c result. Performed By: #### C BC, BMP #### [facility] [address] [place] [address] Agent Ticketing Gate: Lucas Pink MD #### GLYHGB #### [facility] [address] [place] [address] Agent Ticketing Gate: Chalo Rendon MD HbA1c (Bld) [Mass fraction] 6.5 % High 4.0-6.0 [facility] Comment on above: Performed By: #### C BC, BMP #### [facility] [address] [place] [address] Agent Ticketing Gate: Lucas Pink MD #### GLYHGB #### [facility] [address] [place] [address] Agent Ticketing Gate: Chalo Rendon MD Average glucose Estimated from glycated hemoglobin (Bld) [Mass/Vol] 140 mg/dL [facility] Comment on above: The ADA and AACC rec ommend providing the estimated average glucose result to permit better patient understanding of their HBA1c result. HbA1c (Bld) [Mass fraction] 6.5 % High 4.0 - 6.0 % [facility] Interpretation and review of laboratory results Abnormal [facility] BUN + Creatinineon 3 Creatinine [Mass/Vol] 0.5 mg/dL Normal 0.5-0.9 [facility] Comment on above: Performed By: #### B UNCRT, CBC, GLU, LYTE #### [facility] [address] [place] [address] Agent Ticketing Gate: Chalo Rendon MD GFR/1.73 sq M.predicted among non-blacks MDRD (S/P/Bld) [Vol rate/Area] mL/min/{1.73_m2} Normal >60 [facility] Comment on above: Result Comment: These [...] #### B UNCRT, CBC, GLU, LYTE #### [employer] [address] [place] [address] Agent Ticketing Gate: Chalo Rendon MD Urea nitrogen [Mass/Vol] 14 mg/dL Normal 8-23 [facility] Comment on above: Performed By: #### B UNCRT, CBC, GLU, LYTE #### [facility] [address] [place] [address] Agent Ticketing Gate: Chalo Rendon MD CBCon 02-02-2023 Erythrocyte distribution width (RBC) [Ratio] 14.3 % Normal 11.8-14.4 [facility] Comment on above: Performed By: #### B UNCRT, CBC, GLU, LYTE #### [employer] [address] [place] [address] Agent Ticketing Gate: Chalo Rendon MD Hematocrit (Bld) [Volume fraction] 47.5 % High 36.3-47.1 [facility] Comment on above: Performed By: #### B UNCRT, CBC, GLU, LYTE #### [employer] [address] [place] [address] Agent Ticketing Gate: Chalo Rendon MD Hemoglobin (Bld) [Mass/Vol] 16.5 g/dL High 11.9-15.1 [facility] Comment on above: Performed By: #### B UNCRT, CBC, GLU, LYTE #### [facility] [address] [place] [address] Agent Ticketing Gate: Chalo Rendon MD MCH (RBC) [Entitic mass] 33.7 pg High 25.2-33.5 [facility] Comment on above: Performed By: #### B UNCRT, CBC, GLU, LYTE #### [place] [address] Agent Ticketing Gate: Chalo Rendon MD MCHC (RBC) [Mass/Vol] 34.7 g/dL Normal 28.4-34.8 [facility] Comment on above: Performed By: #### B UNCRT, CBC, GLU, LYTE #### [place] [address] Agent Ticketing Gate: Chalo Rendon MD MCV (RBC) [Entitic vol] 97.1 fL Normal 82.6-102.9 [facility] Comment on above: Performed By: #### B UNCRT, CBC, GLU, LYTE #### [place] [address] Agent Ticketing Gate: Chalo Rendon MD NRBC Automated 0.0 per 100 WBC Normal 0.0 [facility] Comment on above: Performed By: #### B UNCRT, CBC, GLU, LYTE #### [place] [address] Agent Ticketing Gate: Chalo Rendon MD Platelet mean volume (Bld) [Entitic vol] 12.3 fL Normal 8.1-13.5 [facility] Comment on above: Performed By: #### B UNCRT, CBC, GLU, LYTE #### [place] [address] Agent Ticketing Gate: Chalo Rendon MD Platelets (Bld) [#/Vol] 149 10*3/uL Normal 138-453 [facility] Comment on above: Performed By: #### B UNCRT, CBC, GLU, LYTE #### [address] [address] Agent Ticketing Gate: Chalo Rendon MD RBC (Bld) [#/Vol] 4.89 10*6/uL Normal 3.95-5.11 [facility] Comment on above: Performed By: #### B UNCRT, CBC, GLU, LYTE #### [address] [address] Agent Ticketing Gate: Chalo Rendon MD WBC (Bld) [#/Vol] 8.8 10*3/uL Normal 3.5-11.3 [facility] Comment on above: Performed By: #### B UNCRT, CBC, GLU, LYTE #### [address] [address] Agent Ticketing Gate: Chalo Rendon MD Electrolyteson 02-02-2023 Anion gap [Moles/Vol] 10 mmol/L Normal 9-17 [facility] Comment on above: Performed By: #### B UNCRT, CBC, GLU, LYTE #### [address] [address] Agent Ticketing Gate: Chalo Rendon MD Chloride [Moles/Vol] 104 mmol/L Normal 98-107 [facility] Comment on above: Performed By: #### B UNCRT, CBC, GLU, LYTE #### [address] [address] Agent Ticketing Gate: Chalo Rendon MD CO2 [Moles/Vol] 24 mmol/L Normal 20-31 [facility] Comment on above: Performed By: #### B UNCRT, CBC, GLU, LYTE #### [address] [address] Agent Ticketing Gate: Chalo Rendon MD Potassium [Moles/Vol] 4.2 mmol/L Normal 3.7-5.3 [facility] Comment on above: Performed By: #### B UNCRT, CBC, GLU, LYTE #### [facility] [address] [place] [address] Agent Ticketing Gate: Chalo Rendon MD Sodium [Moles/Vol] 138 mmol/L Normal 135-144 [facility] Comment on above: Performed By: #### B UNCRT, CBC, GLU, LYTE #### [facility] [address] [place] [address] Agent Ticketing Gate: Chalo Rendon MD Glucoseon 02-02-2023 Glucose [Mass/Vol] 127 mg/dL High 70-99 [facility] Comment on above: Performed By: #### B UNCRT, CBC, GLU, LYTE #### [address] [address] Agent Ticketing Gate: Chalo Rendon MD Hemoglobin A1Con 10-27-2022 Glucose [Mass/Vol] 157 mg/dL Normal [facility] Comment on above: Result Comment: The ADA and AACC recommend providing the estimated average glucose result to permit better patient understanding of their HBA1c result. Performed By: #### Lali MIRANDA BMP #### [facility] [address] [place] [address] Agent Ticketing Gate: Lucas Pink MD #### GLYHGB #### [address] [address] Agent Ticketing Gate: Chalo Rendon MD HbA1c (Bld) [Mass fraction] 7.1 % High 4.0-6.0 [facility] Comment on above: Performed By: #### Lali MIRANDA, BMP #### [facility] [address] [place] [address] Agent Ticketing Gate: Lucas Pink MD #### GLYHGB #### [address] [address] Agent Ticketing Gate: Chalo Rendon MD Basic Metabolic Profon 10-26 Anion gap [Moles/Vol] 9 mmol/L Normal 9-17 [facility] Comment on above: Performed By: #### Lali BC, BMP #### [facility] [address] [place] [address] Agent Ticketing Gate: Lucas Pink MD #### GLYHGB #### [address] [address] Agent Ticketing Gate: Chalo Rendon MD BUN/CRE Ratio 27 High 9-20 [facility] Comment on above: Performed By: #### C RUBEN, BMP #### [facility] [address] [place] [address] Agent Ticketing Gate: Lucas Pink MD #### GLYHGB #### [address] [address] Agent Ticketing Gate: Chalo Rendon MD Calcium [Mass/Vol] 8.8 mg/dL Normal 8.6-10.4 [facility] Comment on above: Performed By: #### Lali MIRANDA, BMP #### [facility] [address] [place] [address] Agent Ticketing Gate: Lucas Pink MD #### GLYHGB #### [address] [address] Agent Ticketing Gate: Chalo Rendon MD Chloride [Moles/Vol] 105 mmol/L Normal 98-107 [facility] Comment on above: Performed By: #### C RUBEN, BMP #### [facility] [address] [place] [address] Agent Ticketing Gate: Lucas Pink MD #### GLYHGB #### [address] [address] Agent Ticketing Gate: Chalo Rendon MD CO2 [Moles/Vol] 27 mmol/L Normal 20-31 [facility] Comment on above: Performed By: #### C RUBEN, BMP #### [facility] [address] [place] [address] Agent Ticketing Gate: Lucas Pink MD #### GLYHGB #### [address] [address] Agent Ticketing Gate: Chalo Rendon MD Creatinine [Mass/Vol] 0.6 mg/dL Normal 0.5-0.9 [facility] Comment on above: Performed By: #### C RUBEN, BMP #### [facility] [address] [place] [address] Agent Ticketing Gate: Lucas Pink MD #### GLYHGB #### [address] [address] Agent Ticketing Gate: Chalo Rendon MD GFR/1.73 sq M.predicted among non-blacks MDRD (S/P/Bld) [Vol rate/Area] mL/min/{1.73_m2} Normal >60 [facility] Comment on above: Result Comment: [...] BMP #### [facility] [place] [address] Agent Ticketing Gate: Lucas Pink MD #### GLYHGB #### [address] [address] Agent Ticketing Gate: Chalo Rendon MD Glucose [Mass/Vol] 134 mg/dL High 70-99 [facility] Comment on above: Performed By: #### C BC, BMP #### [facility] [address] [place] [address] Agent Ticketing Gate: Lucas Pink MD #### GLYHGB #### [address] [address] Agent Ticketing Gate: Chalo Rendon MD Potassium [Moles/Vol] 4.3 mmol/L Normal 3.7-5.3 [facility] Comment on above: Performed By: #### C RUBEN, BMP #### [facility] [address] [place] [address] Agent Ticketing Gate: Lucas Pink MD #### GLYHGB #### [address] [address] Agent Ticketing Gate: Chalo Rendon MD Sodium [Moles/Vol] 141 mmol/L Normal 135-144 [facility] Comment on above: Performed By: #### C RUBEN, BMP #### [facility] [address] [place] [address] Agent Ticketing Gate: Lucas Pink MD #### GLYHGB #### [address] [address] Agent Ticketing Gate: Chalo Rendon MD Urea nitrogen [Mass/Vol] 16 mg/dL Normal 8-23 [facility] Comment on above: Performed By: #### C RUBEN, BMP #### [facility] [address] [place] [address] Agent Ticketing Gate: Lucas Pink MD #### GLYHGB #### [address] [address] Agent Ticketing Gate: Chalo Rendon MD CBCon 10-26-2022 Erythrocyte distribution width (RBC) [Ratio] 13.7 % Normal 11.8-14.4 [facility] Comment on above: Performed By: #### C RUBEN, BMP #### [facility] [place] [address] Agent Ticketing Gate: Lucas Pink MD #### GLYHGB #### [address] [address] Agent Ticketing Gate: Chalo Rendon MD Hematocrit (Bld) [Volume fraction] 47.2 % High 36.3-47.1 [facility] Comment on above: Performed By: #### C RUBEN, BMP #### [facility] [address] [place] [address] Agent Ticketing Gate: Lucas Pink MD #### GLYHGB #### [address] [address] Agent Ticketing Gate: Chalo Rendon MD Hemoglobin (Bld) [Mass/Vol] 15.9 g/dL High 11.9-15.1 [facility] Comment on above: Performed By: #### C RUBEN, BMP #### [facility] [address] [place] [address] Agent Ticketing Gate: Lucas Pink MD #### GLYHGB #### [address] [address] Agent Ticketing Gate: Chalo Rendon MD MCH (RBC) [Entitic mass] 33.5 pg Normal 25.2-33.5 [facility] Comment on above: Performed By: #### C RUBEN, BMP #### [facility] [address] [place] [address] Agent Ticketing Gate: Lucas Pink MD #### GLYHGB #### [address] [address] Agent Ticketing Gate: Chalo Rendon MD MCHC (RBC) [Mass/Vol] 33.7 g/dL Normal 28.4-34.8 [facility] Comment on above: Performed By: #### C BC, BMP #### [facility] [address] [place] [address] Agent Ticketing Gate: Lucas Pink MD #### GLYHGB #### [address] [address] Agent Ticketing Gate: Chalo Rendon MD MCV (RBC) [Entitic vol] 99.6 fL Normal 82.6-102.9 [facility] Comment on above: Performed By: #### C BC, BMP #### [facility] [address] [place] [address] Agent Ticketing Gate: Lucas Pink MD #### GLYHGB #### [address] [address] Agent Ticketing Gate: Chalo Rendon MD NRBC Automated 0.0 per 100 WBC Normal 0.0 [facility] Comment on above: Performed By: #### C BC, BMP #### [facility] [address] [place] [address] Agent Ticketing Gate: Lucas Pink MD #### GLYHGB #### [address] [address] Agent Ticketing Gate: Chalo Rendon MD Platelet mean volume (Bld) [Entitic vol] 12.0 fL Normal 8.1-13.5 [facility] Comment on above: Performed By: #### C BC, BMP #### [facility] [address] [place] [address] Agent Ticketing Gate: Lucas Pink MD #### GLYHGB #### [place] [address] [place] [address] Agent Ticketing Gate: Chalo Rendon MD Platelets (Bld) [#/Vol] 141 10*3/uL Normal 138-453 [facility] Comment on above: Performed By: #### C BC, BMP #### [facility] [address] [place] [address] Agent Ticketing Gate: Lucas Pink MD #### GLYHGB #### [address] [address] Agent Ticketing Gate: Chalo Rendon MD RBC (Bld) [#/Vol] 4.74 10*6/uL Normal 3.95-5.11 [facility] Comment on above: Performed By: #### C BC, BMP #### [facility] [address] [place] [address] Agent Ticketing Gate: Lucas Pink MD #### GLYHGB #### [address] [address] Agent Ticketing Gate: Chalo Rendon MD WBC (Bld) [#/Vol] 9.4 10*3/uL Normal 3.5-11.3 [facility] Comment on above: Performed By: #### C BC, BMP #### [facility] [address] [place] [address] Agent Ticketing Gate: Lucas Pink MD #### GLYHGB #### [address] [address] Agent Ticketing Gate: Chalo Rendon MD MRI LSPAO ONEIL CONon 06-29-19 MRI LSPAO WO CON EXAM: MRI of the lumbar [...] by: GARRET BENJAMIN Date: 2022-06-28 07:[address] [facility] US CAROTID ART BILon 10-28-2 022 US CAROTID ART PAZ EXAMINATION: US CAROTID ART PZA HISTORY: Peripheral vascular disease (disorder) COMPARISON: No [...] CHARY AWAD Date: 2022-01-20 17:33 Normal [facility] Consent Formson 01-18-2022 Consent Forms [id number] Normal [facility] CREATININEon 01-16-2022 Creatinine [Mass/Vol] 0.66 mg/dL Normal 0.55-1.[address] [facility] Comment on above: Performed By: #### C RUFINO #### [facility] [address] [place] [address] Dr. Deborah Solorio EGFR-AF CITIZEN [place] >60 Normal >=60 [facility] Comment on above: Performed By: #### C RUFINO #### [facility] [address] [place] [address] Dr. Deborah Soloiro EGFR-NON AF CITIZEN OF [place] >60 Normal >=[address] [facility] Comment on above: Performed By: #### C RUFINO #### [facility] [address] [place] [address] Dr. Deborah Solorio CTA ABD ASHLEY WWO [...] BLAYNE CALDERÓN Date: 2022-01-16 19:35 Normal [facility] Coding Summaryon 01-11-2022 Coding Summary HTMLBase 64 SbsogystKYt0yWn+PGh lYWQ+CR9BJOQjO04tpC UbsR0SE1eQNC9XCPBID EWYRR4WMP0ulRX0QTch S8DictVk NdrizPJaUC00EEk3YRQ 2jJfpLYuriP3khURmX1 x5NrCjGY68kF17GIumG XXtSwG6CpLhwpwvaMJw Q2leJgAqrUXjHdu+PHR hYmxlIHdpZHRoPScxMD UhErDzcAlyWH5nSf4zR GVyLWNvbGxhcHNlOiBj t3eaYSVyNQfxUR0wcRj vL4UvsZE3NDKsb0b2Uh 48dHI+LTFnVPY6sJqqA Mdyv573KfQlx3wxETJ6 pTNpFJapAXC0O70yk6U 4BJHtQVXeXES0cCG2bD 7txEuoyodeQ7FbySToB wT6IFJ4hUZugL0vuIpu wubpmN8kHik+J04XCZ3 CCUXLFR4TAiu7E5AkLu wvdHI+GN46ACTnVB51q YOlqYJme0ilfAh4PvMo HIWqJSH2lOwxUVupy8Q aEWDjV39mfFBmf9F4KP WvjFysoCBzIpUkhAD3r X1oFQtlczsgx5tgpxro Ldiju0wzpu15mK52Z30 oHHadZJVhVPS2ALFaMH KstOagkl1fpY6vGy6+I Bljr9wld9vyxBs5LaVf NXGckpSysBgcIIS8m8H mEj21O4BikQoys2MaNc p2nb10nCQjv6H9kQO9C XbcQTCsfW1fHYwcUtO2 SVLiLvSilR94mLLfLSb qYp9wqSgqzHcdWU3wKK YslbmgGLYxpS1rXKJoq LTczXrtPL7hPJUyquwq u078BnCpGZT1XUIuiRK iJ1PgjT7xHmPoBCMzGX BkH5VjbFDsUIkcO398Z VwfYdW9NMKdrjMmE9Fy ILEsnFbjFbA4d8E5Wy3 Xo5RuhenoPNG3MAhjUX XwOkV2QkNbBoR0D7DoE gl4MJDyeBdfBV4zB2Ix HMOhtiuhwnyyaLU1IBH dZFYzuK23qPIeKYjtSt 6wl7N7u451IXBeQBGnz B32Af9amCtbZRVwdCNJ kQ6heidkw6daqunkRbR pLNYjSGc6FBk5YWSfkJ wgZhNfVXN4GuW6GKL2c CCmdN1enVqjsseerI4d Oyc+I76poO3lDBT2WXG 2gwjxUDNkupOlAR60HF 31F8AoQvtqyRCbiCE+P OOjptEsyPgyLL6kWqEe v7qki4WpSAvnT7ZvFPY vCScrKxz9TIGuWSR8iR V3aF3gBVAhOVqhy6N5r GC3B7ZovoSbov2uj2rg JVDeAOfeL43hkWBvo6N 1EQFazSR8HGPhcDiyEb NrhH46Dyn+PGNvbGdyb 9VcTchuh1fvy0rzkCv2 IjMwJSIgdmFsaWduPSJ 7q7UbIf07H41cGUkhXV RoPSIxNSUiIHZhbGlnb x6gjA3lRc9+PGNvbCB3 yQL5aS1kQNSyObD1KDq fS225VaRqtICbKspmz6 cmm5zbmCb7YhKpYUNqq iUtzWugQOC6a2WrJb68 K66rBVmiXKKiYTZhQYI zDRHamPjbek0dhR6bJi 8+BF1re3wpit59jW02o HI+AIJgJXH3lFiqGShz ZXDayN0hMVjkUfL5PJT pWzTirK95yPDpXIirQb 5ckPvhtHhcXC5oEOSql rnzr737CrDdc3yyGWJi kMJrFKuiLGM9N69jt5H 9EVXwVFXhNAD7aQH5hT 1hbGlnbjogbGVmdDsgd rBaxJgwIJsvNPvrP899 IHRvcDsnPlBhdGllbnQ vAiIeJLp6E2YfKfw7GO VsgCyqHG3dhBOtCJjrE t0esKczqGeeSD9yORSf plujr920PxElv9aiKVT sfFUuOJruWDA7S02in4 H0EHKpXNJiKRH8fFX8o A0thIfblesxgQPznNeq igXxfHasHOveXPsvI68 6IHRvcDsnPkJpcnRoIE QgsXD8FR68UM10nUJmq 3X6rZU4V3TkUOMwsjfc dnpctEY8CLBpWMZmjX4 2Fi1ljJigNk7xEXEmQD H1GKHcpWHhJ2VenC5nH lHzSQVjMXWxN1GdiXIz DGdoR162KItnQvS5IFK dsmRlS0ZnTJYrmZtnIo O5o1B9Fk3JG1K4EI40M Q67fMLwu6I3pRH8M6Sv KQVzrikxsdoxzIK1GRC dIMAefY98Nb3rpWixJg 2jHABqXUU4CHUsiGUtD 0HmlI7hQjGeKKTmYADx O3ZhjXHeCJkeX820BBy tAuU0MIIdgqNjH7OcGM PkwJuwTiZ7b7P1Gv7JN Ac7NY67WW35xRMgg0O1 rLZ7N6XgCFJekpxcvdg gyOB3MSTaZESkfL50Pe 1eiFjgIj6jYPItVXO4C HWppSMuY6MwiC4sVoPb HLYkURUvF3LbnAFcMEb lT097HGovZxC6ESOegd XyJ6SpIKSazCwyIeS0d 2N5Um5REIEuZQ67YDS8 jNO3VX86YG56Y1UjMxc vdGFibGU+PHRhYmxlIH dpZHRoPScxMDAlJyBzd QdsYT0rZu6mHWIwBROu vOendDMgPiBhd2hkWHN tWTvgBT9qiXclU5WalY E1JCCsp4p9Nd96K29dV 3JvdXA+OQTqvCW1oRG1 yX0bMnXcXnD1LKntC61 2ViEmiTKxKpysp1vdb6 kfbLg5FyK6HCFkvjOzy ZcxZDC5h0TeRk51J94d IHdpZHRoPSIxNSUiIHZ wyAcvhi4pbC3zHj3+PG TlsLC9hOC8yI1bInZsR nM5QCgfK207FwQbjOPp Mmdoe1tdy0zhfBe4FlV pZKKxsxOlfNugKJV6m5 QtXe99Q4LlmOcpy8AlD nh2ia72hQHew5W8bUS8 V3PoYWVgughvlNVuzBs qCV4nMBAqtbebFYWxbU 8lEDYlV2x1ZmGhAtC3U PksO8QbvlV0LGJbrGYz ZUpoEBI5S71ls1A7EIZ dNBIoQGF7xWZ5xF7hkE lnbjogbGVmdDsgdmVyd MgeGPyiZFgmS136IOAy kTmpZNZsuG7wNPKhrAB fyBkhFC5lHOErwrpdNd NUVUxMLCBCUkVOREEgV zwvdGQ+QUHjBMX6qOud OTodALHsqD3eIRXcO8q 5IsYvFfU0EOzaT0XsKU ZjvxhmUv08gS7dSsClC jK3XVnnY0NlncP0EJKd rRYzZDusMPN6Y13lc4O 0KCOyDEXzIXY1rZH3yH 1hbGlnbjogbGVmdDsgd aRbvEusHPyjCPpgH848 QQGncRqiMyL2SdO9UbR 6XVT1S1FgAuw4MSBhgP siLT1dfRMcUFsjQz9kh HnrtHlsNM6wLVExpzzd KOPdcU1gWZLrqCNtzKe rVZ9lTYOwjvmkv304Kk OlHJH4OYZfqMCaN3Qkj E5lIwTpGPXbTSXiB1Bp tAGdIFqaT768VPswPyX 5IFTlexKaG3VaFQBwaS rtRbE5g7Z5Ip79TPPAO WFyczwvdGQ+PHRkIHN0 bHydCAvwNYPjbI9dGUZ eE0q6WhVjLeA9WIinD3 PdUXAakpdjUa26vJ8aP xIcRuQ3QFaqG5VvpzZ4 OBTimAUhGAynVZM0T66 uy2H5DWOjKGXmXZL5oC V3zZ4muJlfpbwipURew DsgdmVydGljYWwtYWxp Y069WFSpeMzoQuRTUAZ MRTwvdGQ+NQMgCNV1uO tnIYmuXLDihC8yMDItZ 8v0ZrAmSmJ9RFjwH3Sv IFPeucqqUg78cJ6kArT mDmC3KYkcK3RwjcV5UN WtaXJhYNamNDX7Q17hh 9M9UMIhVJViDCY1yHF8 hS9unNwzdhglpDZrlCr gdmVydGljYWwtYWxpZ2 46IHRvcDsnPkRheSBTd BDpEXQ9QL41OR15C2Pn PjwvdGFibGU+PHRhYmx lIHdpZHRoPScxMDAlJy YkmPhjXU2nRv7kESYxF COtsGkxfVDdQwZoh9nk WWGkTKkgMG0haDulN1S uiOP7WAKlh2u6Fw32E7 0yM8YvmDY+QTAszSU7s QR3eW1pNiOlViR8YPuu N252PsAvpUIyJluuz2b ik1kimBf1YcUcIJMdcu RtzYiiZPW6i5JvGl80U 29sIHdpZHRoPSIyMCUi DNDclFymet8luF0wYp8 +AJJzlYL2uMW2bE1uVs IuTgD3BDiqY125PuIjw IAvFjzmD11rF1GmwPT+ DLHrFiy8OHOyhJqpIO2 mzCNfYJnvTp1hPYT4Qd ZsSfQjJJmdI0RbDLLst hlgrvxbiAK2VVIoPIHb qG41Ye6mwLafBd9aACV oJFQ8XKLcsEYtZ3ZzyD 5kLjYlPFXzTUTcD8Exx AXrUBsoL461IZyfNxE0 YXEjnrAjG6PhGKIozYt iGcS5w8W0Te5MnLoeyP CdDP1mEcDpXOw9F7ZmY wc1PDRlrEthRQ3xoODh OUzhBr5ocYdxtJchZB7 yVQFwofarp291QtJdp3 rpLQJiwJMhOTamZHB9K 12nx3F7GGHqNRTwMUQ5 gJI2qZ2uoAmkorcfuBE mdDsgdmVydGljYWwtYW ioI971WVTzvAzgJtHTI gs1Y7SvNqu8OSDnxZsw XI5jtDIeYQwtJr8tdOz vmJxeXZ2dIICxntlzu3 93MsMnz4ljDNTnwAGhA GmsBBH2K96ts1G1ECQf KGTsYDR9bDN0wS6dpKo nbjogbGVmdDsgdmVydG jyEOzqXDwvV592DFVue YrxDz2TIcj8S0WhRuy6 YWTasJhwEI0epEKbGRf eTy7boSxqpXhsQS7aVE Fzpugdb045WpEzj4swW IAxkDVsTJifPYH9H62f r3O8PCQzLQEjRBS0uZH 8xB3brKpeakmkiPRyhA sgdmVydGljYWwtYWxpZ 246IHRvcDsnPlBheWVy OjwvdGQ+RI41wd25H1L fValjNoc8JXBgVDX8rY G0vA5kURZwGPlaj0W8c KL4X1TtnrIuis0oz1ft YXB (more content not included)... [facility] Consultation/Specialist Note on 01-11-2022 Consultation/Specialis t Note [id number] [facility]10-2022 Consent Forms [id number] [facility] 01-10-2022 MAGR Intraoperative Record MAGR Intra-Op Record Summary Primary Physician: Ambrose Rodriguez DO Finalized Date/Time: 01/10/22 11:08:45 Pt. Name: MIRNA QUEZADA /Sex: 1950 FEMALE Med Rec #: [id number] Physician: Ambrose Rodirguez DO Financial #: [id number] Pt. Type: D Room/Bed: / Admit/Disch: 01/09/22 12:18:00 - 01/09/22 18:10:00 Institution: Case Times MAGR Entry 1 Patient In Room Time 01/09/22 16:20:00 Out Room Time 01/09/22 16:57:00 Anesthesia Start Time 01/09/22 16:20:00 Stop Time 01/09/22 16:58:00 Surgery Start Time 01/09/22 16:37:00 Stop Time 01/09/22 16:55:00 Last Modified By: Angela Collazo RN 01/09/22 17:23:17 Case Attendance MAGR Entry 1 Entry 2 Entry 3 Case Attendee Ambrose Rodriguez Robert M MD Long, Barbara RN Andrew DO Role Performed Surgeon - Primary Anesthesiologist of Scouring Train Operator Chief Record Time In 01/09/22 16:20:00 01/09/22 16:20:00 01/09/22 16:20:00 Time Out 01/09/22 16:57:00 01/09/22 16:57:00 01/09/22 16:57:00 Procedure Carpal Tunnel Carpal Tunnel Carpal Tunnel Release(Left) Release(Left) Release(Left) Last Modified By: Angela Collazo RN, Barbara RN Long, Barbara RN 01/09/22 17:23:23 01/09/22 17:23:23 01/09/22 17:23:23 Entry 4 Entry 5 Case Attendee Duyen Medina CST NET MVC DEVELOPER/Savanna PEÑA NET MVC DEVELOPER Role Performed Scrub Personnel [employer] Pilot Time In 01/09/22 16:20:00 01/09/22 16:20:00 Time Out 01/09/22 16:57:00 01/09/22 16:57:00 Procedure Carpal Tunnel Carpal Tunnel Release(Left) Release(Left) Last Modified By: Angela Collazo RN, Barbara RN 01/09/22 17:23:23 01/09/22 [...] laparoscope or robotic assistance Last Modified By: Angela Collazo RN 01/09/22 17:23:18 Post-Care Text: O.730 [...] start of the procedure: Last Modified By: Angela Collazo RN 01/09/22 16:46:10 Post-Care Text: O.760 [...] and equipment issues/concerns Antibiotic Last Modified By: Angela Collazo RN 01/09/22 16:46:25 Patient Positioning MAGR [...] Yes Pillow, Safety Strap Last Modified By: Angela Collazo RN 01/09/22 16:46:33 Post-Care Text: E.290 Evaluates musculoskeletal status O.80 Patient is free from signs and symptoms of injury related to positioning Skin Prep MAGR Pre-Care Text: A.30 Verifies allergies Im.270 Performs skin preparation Im.270.1 Implements protective measures to prevent skin and tissue injury due to chemical sources Entry 1 Skin Prep Syntegrity Prep Agents (Im.270) 7.5% Povidone-Iodine Prep By Agnela Collazo RN Scrub 10% Povidone-Iodine [place] Prep Area (Im.270) Elbow and forearm, Hand Skin Prep Agent Dry Yes Without Pooling Hair Removal Syntegrity Hair Removal Methods No hair removal performed Outcome Met (O.100) Yes Last Modified By: Angela Collazo RN 01/09/22 16:46:54 Post-Care Text: E.10 Evaluates for signs and symptoms of physical injury to skin and tissue O.100 Patient is free from signs and symptoms of tootie (more content not included)... Normal [facility] Anesthesia Noteon 01-09-2022 Anesthesia Note Patient: MIRNA QUEZADA Age: 71 years Sex: FEMALE : 1950 Associated Diagnoses: None Author: Cilnt Bernal MD Postoperative Information Post Operative Note: Operative Day. Anesthetic utilized: Monitored anesthesia care. Health Status Allergies: Allergic Reactions (All) Severe Augmentin- Angioedema. Problem list (past medical history): All Problems Cigarette smoker / SNOMED CT 017299320 / Confirmed Diabetes / SNOMED CT 761230149 / Confirmed H/O Parkinson's disease / SNOMED CT 645795531 / Confirmed History of heart attack / SNOMED CT 9696480320 / Confirmed HTN (hypertension) / SNOMED CT 6286866309 / Confirmed Physical Examination VS/Measurements Vital Signs [...] good. [Electronically Signed on: 01/09/2022 16:59 EDT] __ Clint Bernal MD [Verified on: 01/09/2022 16:59 EDT] __ Clint Bernal MD [facility] Anesthesia Note Patient: MIRNA QUEZADA Age: 71 years Sex: FEMALE : [...] Angioedema. Current medications: Home Medications (14) Active acetaminophen-hydro codone 325 mg-10 mg oral tablet 1 tab(s), [...] All Problems Cigarette smoker / SNOMED CT 989664182 / Confirmed Diabetes / SNOMED CT 965295065 / Confirmed H/O Parkinson's disease / SNOMED CT 945605320 / Confirmed History of heart attack / SNOMED CT 6125714086 / Confirmed HTN (hypertension) / SNOMED CT 0492452530 / Confirmed Histories Family History: No family history items have been selected or recorded. Procedure history: Cholecystectomy (92170418). Triple coronary bypass (151312353). delivery ([id number]). Comments: 12/30/2021 13:19 Yana iMranda RN x2 Social History Electronic Cigarette/Vaping Assessment [...] pattern. Review / Management Laboratory Results Plan [employer]#( ASA) physical status classification: Class III. Anesthetic Preoperative Plan Anesthesia: Monitored anesthesia care. Anesthetic plan, risks, benefits, and alternatives discussed with the patient and/or family. Patient verbalized understanding. [Electronically Signed on: 01/09/2022 15:07 EDT] __ Clint Bernal MD [Verified on: 01/09/2022 15:07 EDT] __ Clint Bernal MD Normal [facility] Inpatient Patient Summaryon 01-09-2022 [place] [address] Patient Discharge Instructions Name: MIRNA QUEZADA : 1950 Patient Address: [address] [place] [phone] Primary Care Provider: Name: VILLA NICOLAS After you are discharged if you find you have any questions, please, call [phone] ext [phone] to speak to a nurse. Discharge Diagnosis: Left carpal tunnel syndrome Prescription Information: If you have been given a prescription for narcotics, seek immediate medical attention if you have any difficulty breathing or any sudden status changes such as confusion and sleepiness. If you or anyone you know is experiencing suicidal thoughts, mental health, alcohol and/or drug addiction problems; contact the [facility] 16/10 Crisis Hotline -Text 4HQCJ yu 243976. If you received any narcotics, sedation, or [...] business decisions or sign any legal documents [facility] would like to thank you for allowing us to assist you with your healthcare needs. The following includes patient education materials and information regarding your injury/illness. MIRNA QUEZADA has been given the following list of follow-up instructions, prescriptions, and patient education materials: Follow-up Instructions With: Address: When: VAZQUEZ COATES [address] [place] [address], [address] [place] [address] Business (1) 01/18/2022 11:30 AM With: Address: When: VILLA NICOLAS [facility], [address] [facility] [address] [place], [place] [id number] Business (1) Medications During the course of [...] Continue That Have Not Changed Other Medications acetaminophen-hydro codone (acetaminophen-hydr ocodone 325 mg-10 mg oral tablet) 1 tab(s) [...] list that you can keep with you. acetaminophen-hydro codone (acetaminophen-hydr ocodone 325 mg-10 mg oral tablet) 1 tab(s) [...] oral t (more content not included)... [facility]2022 [facility] Postoperative Record [facility] Phase II Record Summary Primary Physician: Ambrose Rodriguez DO Finalized Date/Time: 01/09/22 18:22:17 Pt. Name: MIRNA QUEZADAO.B./Sex: 1950 FEMALE Med Rec #: [id number] Physician: Ambrose Rodriguez DO Financial #: [id number] Pt. Type: D Room/Bed: / Admit/Disch: 01/09/22 [...] By: Laura Lepe RN 01/09/22 18:22 [facility] Preoperative Record MAGR Pre-Op Record Summary Primary Physician: Ambrose Rodriguez DO Finalized Date/Time: 01/09/22 16:37:48 Pt. Name: MIRNA QUEZADA /Sex: 1950 FEMALE Med Rec #: [id number] Physician: Ambrose Rodriguez DO Financial #: [id number] Pt. Type: D Room/Bed: / Admit/Disch: 01/09/22 [...] Preop Departure 01/09/22 16:18:00 Last Modified By: Angela Collazo RN 01/09/22 16:37:47 Post-Care Text: Patient [...] cough or flu like symptoms. Pt denies pacemaker/defibilla tor or sleep apnea. Finalized By: Angela Collazo RN Document Signatures Signed By: Angela Collazo RN 01/09/22 16:37 [facility] POCT Glucose Levelon 022 Glucose [Mass/Vol] 118 mg/dL Normal 74-118 [facility] Comment on above: Performed By: #### 4 [id number] ####[facility] (DEFAULT)[address] [place] [address] Patient Handouton 01-09-[address] 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 [Electronically Signed on: 01/06/2022 12:05 EDT] __ Itzel Dubose RN [Verified on: 01/06/2022 12:05 EDT] __ Itzel Dubose RN Normal [facility] 2019 Novel Coronavirus (CoVI D-19), INDIRA LCon 01-05-2022 SARS-CoV-2 (COVID-19) RNA INDIRA+probe Ql (Unsp spec) Not detected Invalid Interpretation Code Not Detected [facility] Comment on above: Order Comment: [id number] [facility]#[phone] Result Comment: This nucleic acid amplification test was developed and its performance characteristics determined by [employer]. Nucleic acid amplification tests include RT- PCR [...] detected) result in this assay. Performed At: [address] [id number] Birgit Andino PhD Ph:[phone] Performed By: #### 6 [id number] ####[facility] (DEFAULT)[address] [place] [address] Coding Summaryon 01-05-2022 [facility] GzzahxmuQFg7lDo+PGh lYWQ+UD7LMITjJ31qmI VyfL8CU4qDGF6OMMVMJ OTUXI0RCR1vfGP2LCyf W7UxbwVs IfkuvDVhJM20ORn6YXJ 3cNnmATaljU4ruIKvG7 y7OaKbIL74wA41YXrhQ XIlQhH6FuEchmxkjNUw E1vwOxMsdJXbTju+PHR hYmxlIHdpZHRoPScxMD UlScXsoImlBN2lAp6pU GVyLWNvbGxhcHNlOiBj k8ntDXSxHQicGB5znAy kT5JlbJG3YBIaw8t3Dp 48dHI+HPDsCBX8dLcwS Ecda818BuWol3dsWIS4 qVEpBSroNVP8U69vy9C 7SFQbZDYgEPD3mQJ4jW 2lnTsorgqwM4NvqQYbD lX1SVN5sBEmzK2vrWnj gcxvhA0oSge+A02JBC4 EGXHVYH6VAdl1O8NjFk wvdHI+AM58URYhJY95v FZkeZKnb8rptAr5JvOt VOMzXPC0wTmlZMhts4L iBJOyB19hfPZqo2S7XH FgtExanBFdCsDrpFS6s N6mGJdaayggm2suifvo Aovec2alip06wL23C44 nXYyzWAXrZAE7RKXgHU DxhOghjf3vnW4fNn0+I Lmvv6ezc3tumYm9HpRm KFSevfZziBssRVW8f9K qOh86Z1WvxMysi3ZpXa e9dq06jFLem9S0bEZ3K NiwAMLhqB7aKCpcErS9 TKVbWcNtvS75mVTgPBv kRd1ocMdwjOvpVM0sCR VomlvlPCIqtQ7yAGDze VUvmRrcLP7yUKZuueyz e830BoBmXLX2YQMnrFK wL8PalU8fOtUyJOCsOI HkV3TwdKNwSEltE165J AzhIuC5CPSaywYwS0Cd TDVdzXkrEiO8w4T2Cc0 Bh3ShduunYKV7VTmcJR KaQwMlWjKzIrB4M6VoT es1CPXmuUosKF4kE8Vk MCCrvxdawzqjrSL9QKK xLARtoY42jXSgANyaSy 2lv3M4s804HZGiCYCsx R33Oc1avOcqBRIzmICG xB5bafgmp6zxrdkyAvD aAUBxCBz6DZl8BWRkcS ccLzWmAFT4PuU5MQM8i VJixJ4udUbdhbgudL0w Oyc+P54eyR4tAFN7SBU 4lxyyDXAirrEtLK70JD 16K7VoOrbxnWRcaCD+P DRiwwKquNdoAH2qDvJy f0skm4ShJDtbN9GyAAQ yNAsfEto6AHCzXWD9bY N7jU0sZFRdBAeam0I8b TB7R5IeadLiel2wy5ng THVdIOprU58umKDtm6X 0ZABifFI2EYEerKveEe HqnM72Tsl+PGNvbGdyb 1QuNgssq2qhv5biiHq7 IjMwJSIgdmFsaWduPSJ 6o5FwKr11E69qSUvuMM RoPSIxNSUiIHZhbGlnb q8arU4pPn1+PGNvbCB3 zSN5cF2fYGZdFaQ9EFn dM957NpFuhRZyIbghl9 oxr4qhbGr1UoWcSRPrj aGcwMptGJX0v8AoCr83 P68xMAsxKNFoJZJtFKO pJUUvkDgbfg4bhY1uIv 8+QR1ng9adqh45sG50w HI+JOAyXOK3dOojDIlz QEPrkQ0yATizNhD2IBR hUrDbxS21kZEpCEotMm 6erJdjbUexTR3jGNSuc vwyb354EhPpi0vyGREe tUKvIPioIXQ4Q97pb6J 6FLTzJOKsHJY7uJV6dP 1hbGlnbjogbGVmdDsgd xOkeNtcBFquAWpcV284 IHRvcDsnPlBhdGllbnQ nCmPmGCp7F0ZlWvc5AS IfvQruGQ3mhPCaRKkhR p1dxDtisOvlDW3sUDJa rskai726LiXii8qcEUU luKPhBSulTTP9E19li9 O6VXXoEYLxJLV0uMP5x D8ajCtcqjyvwLGdpQih suCqdEbrOGgpORvqD51 6IHRvcDsnPkJpcnRoIE WrwMC1PV43ED75cRUot 4Y8wGY4D9LmRAIcclen opngbUK8FWGiNEBhfC8 3Lp7hfPjlNd0bVPSmNI P1EYSrzWVqY0GoaM8xL rOmAWMmDPFmW0ZzzKQc EIbwO058FEtmWmD0OUP tmwBmV0IgOKQnrDmaWn K6v3A1Bq9KN6T5JA43E E95fJYrm0J3vYX4F5Al UGByaomexarflVD9XIT eGYShoV59Jh3utBpbQh 0bCBNbEME1RASffWGdJ 1AmvK9pIuPwNXLfXPCx B6WoxSPtXNzaW565BRf zLrG4RIHjhkLuL2QyEB MsoPuhRhQ7l5A3Ez9EK Hg2BU33AI71eHCcr5A9 sED4U1SzJMRicfunbst sbBG9FVGrRRRoqJ62Pt 6hbXknJb8aTURqUEF4V KMttZEqS4OstX0sWlRn AAMgQQKiY6AghRSpQNx yM336IGmqVsD3CBLqef HcK7IuUYXdiNdrEnF6z 1R5Kn4MVGVlNX31OIY7 sZH8EL59JK22H4GnFjq vdGFibGU+PHRhYmxlIH dpZHRoPScxMDAlJyBzd BveGD2oJh6wXQCeQYNe zHpzgSTgAwEwa2brFYT bOHczVS0gpVrsU9KyxJ M4DPYyj5c1Tp43V27vQ 3JvdXA+FMSdeKB1uBX3 kN3cGpGcBeP9LMivC93 2NnAbcWVuWmaby3dsh7 iylAc3DnK8TAWznjPex RdmOFY8p5ClXc49O39d IHdpZHRoPSIxNSUiIHZ lnVlflo3yoA7jMz4+PG FcvRC1vQU4bE2xSrArD qW3FYrdL341UfNqdPOs Jfhez3jcc4odaAk4AhT zIIFaslYpdDruMQY5c1 IuVq48G9ArlFxwd5FvA zh0fd10sKTem7W9gLT9 J2ZaQFBtcpwjrECryBj eRO5dNHBinolmOCYazH 7mZJEqR0x4FwTmHbD3F LhvY3IurqB4BLHjnSFq VVnkOKT7S45ky2X0JJO yOWIjRBO7wBB2gF8ohN lnbjogbGVmdDsgdmVyd MytVWywDKonN888ELSu eRnxIJShkH5kMLHfzCY gsCkyHP0jFLTesvydOs NUVUxMLCBCUkVOREEgV zwvdGQ+EHRsXLW9nWfj SSxwNAAmxD8aOAOlU2q 8SxBhKpD8KNnjO9LzMU AmevnkTe35oS8rThLjB aL9OGpgS4BwztF1EGVz kTEcNRzpDJW9U92nl6Y 6BPNzGENnFOB7sUK4mP 1hbGlnbjogbGVmdDsgd fZpjApoDEvmRZlqR914 OFEfeFzzUoJ1SpO3BeO 0WVM0K4VnCuf9ZZGtnN pkRW5ejHUzXYkiTh5qc MxbeNniDJ2zJNAmxrcj MBJrkU4hQQOmqYGkwNy jTJ6rLIOdmmzpr661Ds HmDJE2RTRjnWTqM9Lqi Z1dSiRnADXxEPLmG4Cm zCUeNWvlT931NMioRuU 1WFChiqReJ2ZwGRPjwS ikFoJ2y4P2Zf34MMZMQ WFyczwvdGQ+PHRkIHN0 qAgfHRklTNJbcO5fPGB bP0k3UnXgJoG2YIfyB1 SzIQKqdswuQq57kV0tL oMcEdL6KHzeO5IgegU2 ULKubFTwYHmzIAT8V88 le1F0PUDbTSGsHGV5dR O6qU3orFvqcbvgkIKxb DsgdmVydGljYWwtYWxp B122POGbiBunEpBBWAZ MRTwvdGQ+OKCrZJZ7fU dgBJhrXOIvpD1xRFXtN 0w9ErVmPxJ8AEnoD9Td HJBornqfXx51pT5fUtU pXyA5DTfnY7BrqnH2VB NfkWLnGThxCPS0V36uk 6E1UQXlVJYwYWL4oFS1 uO4zzTgrycuawEWnhTh gdmVydGljYWwtYWxpZ2 38CIQhyImdZv5RKT35M F21Y7OkLgccmGIbiIY+ PHRhYmxlIHdpZHRoPSc fYAXxNuZfuFkcMP0gBn 9yZGVyLWNvbGxhcHNlO bPlt1bzANNvKElmWO6i dXztS9MngPK7JPCop5v 5Qa54O70oI3CtsPW+PG BqmEI4xNA5aH7qKgOtM dU6AWamV765OiKedBEa Gthxe2bit1mmzFg8PjL hXTCnnzKlbOiaMHO2d9 PjZm17Y28qGGcnRJBrS OElNJTmVCWfqMmabg2i aL1xCe5+AMNhtMB8aGP 9hP0lEmSyBnR8FSbrL7 76YdGlpUErJevuH59pR 3JvdXA+VXYhSmw2BTVh hVyaFG6chKYuPOaqHv7 sZIH6RkLmZdNxSPtkA6 FcATItvqpzkvxnaJQ5P ZCqAZCaiA71Qm1qnQfq Cp5jACUaVXW0VUUuyWY hV4ZxaT9jMnIoKXDxKS XrL6HkgBLkBWopH534N EglKiJ2QHRndbRfL7Iy VREdgAleMrX9j3G9Ej5 TaYgdhPTnWN7yWrPmBR j7J4SyRug2ZWRmqRobY M0pnJXgIAhkDm3snAnw sRzsWQ5qRBChyecfe99 9GyOuk7zxBFKpaVFnPK jsZLL8L54eq7S9ABUuV KNsQZN1yWX0nZ8qkIvh bjogbGVmdDsgdmVydGl cMShbJMoqC857VOVtvV hjViUIMjs9M1TgCyf9E NJtlPdiEI4iqAInAEbd Cr5mmCijyAhtOV1iBSP qdvgox185ClNjt6xtIA CneATnCHqxILE0Q58jm 9U7FMFiXUFyMTJ0wNR1 bO9mhMxhelnnwIScuEd gdmVydGljYWwtYWxpZ2 98CEVzcPlgPy2XIjm3W 6TlQqn2CJHxnYrlND5n bQZwRSlnHk9rrNdcqAq uVA5uWMMuvcuza754Yu Qez6rmSSOysRApPMspG PT7A13hm7H8URGnGLSu PNU0dWB2uI5fcVydwvx gbGVmdDsgdmVydGljYW odBAzaZ736CSFagJvlF lBheWVyOjwvdGQ+PC90 gi45D4OeNsbfRbe6IRJ uRML6bUF2fI6tXUKuAP sqn5V3cJU8K1PpawGtr a4ve8uqXRRoQPanC59r bGF (more content not included)... [facility] Coding Summaryon 01-03-2022 Coding Summary HTMLBase 64 OthmuefaEKx4hBl+PGh lYWQ+WX3XDKNrA21bbL CujN5PA4pXDC2BXSPKP JOJQG8SBF7wjXB7JZss E9KvuzBo PaixuTMcZX28FEy8VDI 7eMuyKAtmgQ8jfGZdN6 m8AfQhZG93zO28RSznN MAiBlM9TjPktojxcGIp Y7ptZjGwoGGgLjb+PHR hYmxlIHdpZHRoPScxMD KcSeRcrGgyRV5bJd0uS GVyLWNvbGxhcHNlOiBj s3gcCDSwGPgyQF6snOu cQ1JdiUN6IWWxn1a5Df 48dHI+RMZrHSC2mCdaN Imzo414LkUhg6opQFR7 xQTsMInzIQL4K44dz9N 0PEYtJSOhXRX9qNV1pM 0vdHsecwbrZ2HjbDCvC bX3QRQ6uZPopQ7thKjl igqvzS4eRps+U47QFQ8 ZMQHUYM5DQmh5B4GdYt wvdHI+KP20PHXsWP18n KLkwAKcq2iifRc6QnOh OPAfRXA0dSoyNMzez4T wIDJhE88vmQBjg9D2WW VmqAnikFEgFjDpoBR7m G8dVQpqnmsle3wafchi Cdxpu8mxwx55zC63N80 dKXdhCPUaVZJ8QTHzPC FblEngyh8wpA0cEt8+I Ygup1mib6bthLx1VfHk QFNowfRgtDkzBVO3l4T cWd26N2SyjDxpx0UbQe a4yg35iWIzq3Z8yAW2L PeyNAFbjV8bRZqaMbC7 PKPjQuOrpQ39vYCtIRi lTi9pgAyhvTagAW1kFD KrrewqSELdpM5yIDIgq QJolYjnXW6uNFHkbtek d851UdBvNRD5PCIhjDJ rA4DpjZ3cRxKxMBWgSR RxR6NngIGaOHtfM942I NggUuO6VIOfgvVeT8Nd XRVzhJsnQvJ2g3X1Uj1 Jz0BkvlkoPMG6XYxjFG WqEqLhTgAxHtU3I7NkN bb6WUSqeAigDZ4jD3Sb VKDtliredlrlfMD5NCH sVTJlkH27pJWfSHerFm 5le7N5j346GYHyDNUfa V25Xs1xyKfoPUVzfQZN nS1zcojhe0bovyppDsK nDFDjZBo7FYg8RAPihS yhAiBxVYN0EzH1GDW1s PDlyD6idVheanvwaT0y Oyc+F51wgN4mQUH6LTI 3cdvsDGCavnHyDH25PV 33T8BrZrbluLMadHQ+P AWvemLkoIpxNY5uMlJi o8keu3BmQInvN2AcIYT dRVzmBay0YAWkMSE6iK Q3fU2tUDLvAVnvt1A1g QP2B0AokhFxfm9cs1tu KEMmMDjdD10bkERxe9H 9YYQnkIU1ZSBbaWksNj SaoG29Wqn+PGNvbGdyb 5JbRnbxq3rtc8kzcZk2 IjMwJSIgdmFsaWduPSJ 0o1ErCf34P17uWXmmDO RoPSIxNSUiIHZhbGlnb q9tdR6fUa2+PGNvbCB3 eUE6lW0eIPXeQoW4QGk fE194CxGuiUIyUscar8 ivz6aiaGg9KvDsCYMxv eJfrTpbHWA1b1GnZc41 M15xOZakECJcVIBeNCA nZLWgpVmqyw6znH6dBt 8+VM2lt8aplz50nR30w HI+FVSsRMJ4eEclBJty RVCuuW8rKQccVwM9IAP wLiCqdX51cBAvKRbmUz 2eyCjapAzyIO3hEIApa drbg849ZaGdq6mdVDBl zZUdRTfpTMX5B06nr5Y 9SWPnONSbTAH3rIA3aG 1hbGlnbjogbGVmdDsgd oSuiLvjPZvlKHshF755 IHRvcDsnPlBhdGllbnQ fCvJaEIf6L0JdKee4XB NfuCzrTD1ezBWkLUscD q7dbQthnXkxSX0yBTAz qzicr738PnGlx2ogIJB okWLfPLsqZHB2K85al6 X5RHGnJRPrPXO4cNI0f E1lqCkmfdxreABejOzn ymHodTpmYIzzFQcuD48 6IHRvcDsnPkJpcnRoIE NsjSE7KT15VU57mSMaf 5U2zPB7Y6ZqPLLcvbew wkvfvUW8PLLoGUEfkY9 4Qf9myZyoPv1cYDXfPP F8GULxmBLaQ1KxsN5oW eFfNNPoHHRdG2KszLQw XJvvI587MExfPiT6QYI hvtYzR8QqKWScfAgdQp L8a8S3Fg7OK6B1WI46I D06mCTdu8B1gES8A6Eu YFEooltmigbmzLH2VZR sWMFjqJ05Oz6meDexFr 1iORKnZGT8NASujFOjB 5DzcO8nBaBkATAjFEBd Q0CdhIQdOMmuH977MAj gFgX5NLSmerVdF5BzCG KoxMkwZmZ8b2U1Cb4UA Gx4IC28XT16lPVxm1G0 wIZ7F2QvEWQigncsseo guND3CEIrYLRhuP00Qv 2epYgeGt1gZGHeDPW2G PVyhLBrM4UpiB1yDzNo DEFmRTUyX7GctFLgHPy gV353NEhuDhG5FWSnvs SeT7OnQTAwnWczZeJ4f 6Q1Uz2KEUEwVH94PJA4 fOL7FO15IM87W2OgFia vdGFibGU+PHRhYmxlIH dpZHRoPScxMDAlJyBzd VhvRO7kWb2bSFRqYFWi zGczuIEwUwKzv1xwXOM qIGtsHD1rvVfaX0NuqY T4EENwp5g5Yx24R62mH 3JvdXA+WUAvrZC8nVH1 lR2sGeCiSrZ1LQtbS15 6BpTcnBKfHdmzt4irg7 kwbLb9UzH6XHYapmLuw QpeWRS8m7FqNt72C31b IHdpZHRoPSIxNSUiIHZ loWbspi0siU3jIe7+PG VteVN4bNH1tY0gMfEqA wC2FDhrE791GrAowVVw Shuff5oor4nzqOa3RlX iAPJmjhFjjVwuVMM2u3 SvJn46N4PesNnmy9TyF il8df83pFLjd5F6kZQ3 N5JcOJPiuajlyFJgmCs aMZ8nNFRgqjdqQGZmnR 3xAZRsN9m4SdXiAlN1O ZvnD4PdynT4ZHNfoQUa CEdfVKI9N70zt7Q3JKK cISSjYBA0sLG0qO1ipF lnbjogbGVmdDsgdmVyd OcgXMrmTNyeG926AERt zTeyZIQizT2rBAFytFR ztEyeKA7yDSOjsvnjUu NUVUxMLCBCUkVOREEgV zwvdGQ+IMRtQTH8dEdp UTipFAYhlL6jTYQaD4i 3KuPlXwV2QKzjS0KmUF AvclrwVk42lY5bYkCaN zK3GPgkD5IqbdD6LZKu uOBhBQyxAVX7L68mx5Y 1UGMwFBEaGYG1mGM4gZ 1hbGlnbjogbGVmdDsgd wOeuZdoECnuDXqoY230 RZVfzBhzTwC5QtN9FwL 0GND9P4XkVee8POVuaM niDS4eqJRpRJtbSb4ek NqqeSlyFS0mPOCpxjwb AKWvoL4dKTAsqNHajDp jPV3vPSOnwzjem571Hd EhJNX0NXMisRElW8Fvi P8iLeDyZGMiZGNoL9Yb cZYmRRydD575UFxxWpO 5QITpvpGuO6EdDLUpoE drUfN3i1F7Hg93TOXTT WFyczwvdGQ+PHRkIHN0 eVnaLHjgQBCmaO5tNUH kA0t3CeRqZhL7TBelQ2 LxJJDqghsjNd74lY6wQ dKmLtK4RTakW2SjwtX2 QJTnzOOkCTduNVF3R78 of1T0MFJoKNFwSZX0sV D5nK0bvEtisoaevHTzb DsgdmVydGljYWwtYWxp A069JGBzdBznMfERXER MRTwvdGQ+MXHrVIP4lE hqMGdgFPQjhW5gTXSxU 2w7WgIgMqG4WAulD5Cz HOLlogvxYr07sN5tJyL fSoZ9ATsqG8AckpW5ZI MwcSWzVFeeIGV6S89pk 1N6GPJxBHYlGFN3zCO8 fM0zfVlspukpeWSyvWz gdmVydGljYWwtYWxpZ2 42CCEtpTlwQl6ZMP84N U92V9RlRecjyYMotCZ+ PHRhYmxlIHdpZHRoPSc cWXEoTtFmpUujDX5nJb 9yZGVyLWNvbGxhcHNlO dJgw0hsZGTpQLwlXU5o fEqtM4HbeUL7OXGcc1r 3Ki51Z40nO7NrwRJ+PG HtpFX0sBK7gS1aQzOpS uR7LYjpX426EiTkaKJf Xeizg4cld8xivIr1HeU bJLYgozXmlQuqRNE9r2 XmMc99E80pSYukLMCcY FRfZQHuCOTppKafdu1t yJ8hCo8+DQCwxYO3hNX 6hY9nQvJuTuQ1XAzkI4 16LbLyoSXmZyqpH67qB 3JvdXA+OZAgXss6XWGg hJnhHJ9nfAAjZGvsKu1 pARG8GeOjDrJbAMemY6 OeVMVdkunutzzxfXO1S HAcAOWoyL78Gi0gaBid Pf9uIGCuUFH5GDJhbOF oY6DuaC6gKcZlNMNqKY QjC8HpmOJoNKjbF704S FsiPhL3GTQdmoDqM9Oh PBQoaFcbMsC3j3T2To0 OwQhjqGBzHV1dQbGlTC u6O0CoIiw0NXHhdRojE A3znEKfDRsnXh7kkGfa fTukHC1mZGRmuowzw78 9XhQpc4rwOHViyYQuKJ jnNHH7A52nd9D6ONYfR PQxZZT0aAU5yA5lvMbi bjogbGVmdDsgdmVydGl qWDqrHZcbC920YMFqoZ umByKWHqt9J8UlHfr2A ZSzfFmqHN1zgYNyTFrd Vo0xvEgieAawYL6fEJV ovtrnf159BqXer8kzNL BfdDHoHVbhYAD8N40fp 7F8LNLoJSSqEEZ5dXW7 jY4ahZhqdtmyiHLgbHg gdmVydGljYWwtYWxpZ2 01NNLjtVyyGo4YEsz9M 8OfCas5XEQayMtlQC0b uABfRDjxSq9saLbaeTx oLD3sZYOwtkcxl090Ps Nno4opRZNwaHQcWTpdB XH6L49gn3Z9EGLiRUZl YIE5iMB2dR0tdGnopxf gbGVmdDsgdmVydGljYW ktCCspN238CJVasTbkN lBheWVyOjwvdGQ+PC90 ml55W2YvNwvpMke5DIZ yGYP5kBW6hA0zJXUsNM eog4J5bHS8V9KopdIwy n4sl0ohUEFmRNlrB85k bGF (more content not included)... Normal [facility] Progress Note - Nurseon 12-24 Progress Note - Nurse PAT review done zara Odonnell, no orders received. [Electronically Signed on: 01/02/2022 15:09 EDT] __ Yana Samson RN [Verified on: 01/02/2022 15:09 EDT] __ Yana Samson RN [facility] .Auto Diff 1on 12-30-2021 Auto Bladen % 7 % Normal -12 [facility] Comment on above: Performed By: #### 1 [id number] ####[facility] (DEFAULT)[address] [place] [address] Baso Abs# 0.0 x10 Normal 0.0-0.2 [facility] Comment on above: Performed By: #### 1 [id number] ####[facility] (DEFAULT)[address] [place] [address]505 Basophils/100 WBC (Bld) 0.3 % Normal 0.2-2.0 [facility] Comment on above: Performed By: #### 1 [id number] ####[facility] (DEFAULT)[address] [place] [address]76 Eos Abs# 0.1 x10 Normal 0.0-0.4 [facility] Comment on above: Performed By: #### 1 [id number] ####[facility] (DEFAULT)[address] [place] [address] 40168 Eosinophils/100 WBC (Bld) 0.6 % Low 0.9-4.0 [facility] Comment on above: Performed By: #### 1 [id number] ####[facility] (DEFAULT)[address] [place] [address] 29065 Lymph Abs# 3.5 x10 High 1.3-2.9 [facility] Comment on above: Performed By: #### 1 [id number] ####[facility] (DEFAULT)[address] [place] [address] 96143 Lymphocytes/100 WBC (Bld) 36 % Normal 14-48 [facility] Comment on above: Performed By: #### 1 [id number] ####[facility] (DEFAULT)[address] [place] [address]330 Bladen Abs# 0.7 x10 Normal 0.0-0.8 [facility] Comment on above: Performed By: #### 1 [id number] ####[facility] (DEFAULT)[address] [place] [address] 41293 Neut Abs# 5.6 x10 Normal 1.5-9.2 [facility] Comment on above: Performed By: #### 1 [id number] ####[facility] (DEFAULT)[address] [place] [address] 77569 Neutrophils/100 WBC (Bld) 56 % Normal 44-88 [facility] Comment on above: Performed By: #### 1 [id number] ####[facility] (DEFAULT)[address] [place] [address] 98161 BMP Standardon 12-30-2021 eGFR Non AA >60 Invalid Interpretation Code [facility] Comment on above: Performed By: #### 1 [id number] ####[facility] (DEFAULT)[address] [place] [address] 90599 eGFR AA >60 Invalid Interpretation Code [facility] Comment on above: Result Comment: Appointment Setter abigail Kidney disease could be indicated at eGFRs of less than 60 ml/min/1.73m2. Kidney Failure is indicated at less than 15 ml/min/1.73m2 Performed By: #### 1 [id number] ####[facility] (DEFAULT)[address] [place] [address] 66561 Anion gap [Moles/Vol] 15.0 mmol/L Normal 5.0-19.0 [facility] Comment on above: Performed By: #### 1 [id number], [id number], [id number] ####[facility] (DEFAULT)[address] [place] [address] 53188 Calcium [Mass/Vol] 9.2 mg/dL Normal 8.9-10.3 [facility] Comment on above: Performed By: #### 1 [id number], [id number], [id number] ####[facility] (DEFAULT)[address] [place] [address] 64710 Chloride [Moles/Vol] 104 mmol/L Normal 101-111 [facility] Comment on above: Performed By: #### 1 [id number], [id number], [id number] ####[facility] (DEFAULT)[address] [place] [address] 94541 CO2 [Moles/Vol] 23 mmol/L Normal 21-32 [facility] Comment on above: Performed By: #### 1 [id number], [id number], [id number] ####[facility] (DEFAULT)[address] [place] [address] 78496 Creatinine [Mass/Vol] 0.51 mg/dL Low 0.60-1.30 [facility] Comment on above: Performed By: #### 1 [id number], [id number], [id number] ####[facility] (DEFAULT)[address] [place] [address] 39736 Glucose [Mass/Vol] 103.0 mg/dL Normal 74.0-118.0 [facility] Comment on above: Performed By: #### 1 [id number], [id number], [id number] ####[facility] (DEFAULT)[address] [place] [address] 77137 Osmolality 273 mOsm/L Invalid Interpretation Code [facility] Comment on above: Performed By: #### 1 [id number], [id number], [id number] ####[facility] (DEFAULT)[address] [place] [address] 29217 Potassium [Moles/Vol] 4.6 mmol/L Normal 3.6-5.1 [facility] Comment on above: Performed By: #### 1 [id number], [id number], [id number] ####[facility] (DEFAULT)[address] [place] [address] 37384 Sodium [Moles/Vol] 137.0 mmol/L Normal 136.0-144.0 [facility] Comment on above: Performed By: #### 1 [id number], [id number], [id number] ####[facility] (DEFAULT)[address] [place] [address] 59803 Urea nitrogen [Mass/Vol] 10 mg/dL Normal 8-26 [facility] Comment on above: Performed By: #### 1 [id number], [id number], [id number] ####[facility] (DEFAULT)[address] [place] [address] 97536 Urea nitrogen/Creatinine [Mass ratio] 20.0 mg/mg High 4.6-16.2 [facility] Comment on above: Performed By: #### 1 [id number], [id number], [id number] ####[facility] (DEFAULT)[address] [place] [address] 61842 CBC w/ Auto Diffon 2 Erythrocyte distribution width (RBC) [Ratio] 14.6 % Normal 11.5-15.0 [facility] Comment on above: Performed By: #### 1 [id number], [id number], [id number] ####[facility] (DEFAULT)[address] [place] [address] 18991 Hematocrit (Bld) [Volume fraction] 49.5 % High 33.7-40.4 [facility] Comment on above: Performed By: #### 1 [id number], [id number], [id number] ####[facility] (DEFAULT)[address] [place] [address] 89988 Hemoglobin (Bld) [Mass/Vol] 16.8 g/dL High 11.3-15.9 [facility] Comment on above: Performed By: #### 1 [id number], [id number], [id number] ####[facility] (DEFAULT)[address] [place] [address] 62433 Instr WBC 9.9 x10 Invalid Interpretation Code [facility] Comment on above: Performed By: #### 1 [id number], [id number], [id number] ####[facility] (DEFAULT)[address] [place] [address] 35710 Man Diff? Auto Normal [facility] Comment on above: Performed By: #### 1 [id number], [id number], [id number] ####[facility] (DEFAULT)[address] [place] [address] 83984 MCH (RBC) [Entitic mass] 32 pg Normal 24-34 [facility] Comment on above: Performed By: #### 1 [id number], [id number], [id number] ####[facility] (DEFAULT)[address] [place] [address] 67256 MCHC (RBC) [Mass/Vol] 34 g/dL Normal 26-37 [facility] Comment on above: Performed By: #### 1 [id number], [id number], [id number] ####[facility] (DEFAULT)[address] [place] [address] 69247 MCV (RBC) [Entitic vol] 95 fL Normal 81-100 [facility] Comment on above: Performed By: #### 1 [id number], [id number], [id number] ####[facility] (DEFAULT)[address] [place] [address] 72664 Platelet 138 x10 Normal 138-427 [facility] Comment on above: Performed By: #### 1 [id number], [id number], [id number] ####[facility] (DEFAULT)[address] [place] [address] Platelet mean volume (Bld) [Entitic vol] 11.5 fL High 6.3-10.2 [facility] Comment on above: Performed By: #### 1 [id number], [id number], [id number] ####[facility] (DEFAULT)[address] [place] [address] RBC 5.20 x10 Normal 3.70-5.30 [facility] Comment on above: Performed By: #### 1 [id number], [id number], [id number] ####[facility] (DEFAULT)[address] [place] [address] WBC 9.9 x10 Normal 3.5-10.5 [facility] Comment on above: Performed By: #### 1 [id number], [id number], [id number] ####[facility] (DEFAULT)[address] [place] [address] US ARTERY LEG BILon 11-26-19 US ARTERY LEG PAZ EXAMINATION: US ARTERY LEG PAZ HISTORY: Pain at rest of [...] CHARY AWAD Date: 2021-11-25 17:16 Normal [facility] Complete Blood Count with Au to Diffon 07-14-2021 Basophils (Bld) [#/Vol] 0.05 10*3/uL Normal 0.00-0.20 [facility] Comment on above: Performed By: #### F E Prof, TSH, CBCAD, FERR #### [facility] [address] [place], [place] [id number] Basophils/100 WBC (Bld) 0.6 % Normal [facility] Comment on above: Performed By: #### F E Prof, TSH, CBCAD, FERR #### [facility] [address], [place] [id number] Eosinophils (Bld) [#/Vol] 0.04 10*3/uL Normal 0.02-0.50 [facility] Comment on above: Performed By: #### F E Prof, TSH, CBCAD, FERR #### [facility] [address], [place] [id number] Eosinophils/100 WBC (Bld) 0.5 % Normal [facility] Comment on above: Performed By: #### F E Prof, TSH, CBCAD, FERR #### [facility] [address], [place] [id number] Erythrocyte distribution width (RBC) [Ratio] 14.4 % Normal 11.0-15.0 [facility] Comment on above: Performed By: #### F E Prof, TSH, CBCAD, FERR #### [facility] [address], [place] [id number] Hematocrit (Bld) [Volume fraction] 49.0 % High 35.0-47.0 [facility] Comment on above: Performed By: #### F E Prof, TSH, CBCAD, FERR #### [facility] [address], [place] [id number] Hemoglobin (Bld) [Mass/Vol] 16.8 g/dL High 11.6-15.5 [facility] Comment on above: Performed By: #### F E Prof, TSH, CBCAD, FERR #### [facility] [address], [place] [id number] Lymphocytes (Bld) [#/Vol] 2.9 10*3/uL Normal 0.9-3.9 [facility] Comment on above: Performed By: #### F E Prof, TSH, CBCAD, FERR #### [facility] [address], [place] [id number] Lymphocytes/100 WBC (Bld) 35.7 % Normal [facility] Comment on above: Performed By: #### F E Prof, TSH, CBCAD, FERR #### [facility] [address], [place] [id number] MCH (RBC) [Entitic mass] 32.2 pg Normal 27.0-33.0 [facility] Comment on above: Performed By: #### F E Prof, TSH, CBCAD, FERR #### [facility] [address] [facility] [place] [id number] MCHC (RBC) [Mass/Vol] 34.3 g/dL Normal 32.0-36.[address] [facility] Comment on above: Performed By: #### F E Prof, TSH, CBCAD, FERR #### [facility] [address] [facility] [place] [id number] MCV (RBC) [Entitic vol] 94 fL Normal 80-100 [facility] Comment on above: Performed By: #### F E Prof, TSH, CBCAD, FERR #### [facility] [address] [facility] [place] [id number] Monocytes (Bld) [#/Vol] 0.5 10*3/uL Normal 0.2-0.9 [facility] Comment on above: Performed By: #### F E Prof, TSH, CBCAD, FERR #### [facility] [address] [facility] [place] [id number] Monocytes/100 WBC (Bld) 5.9 % Normal [facility] Comment on above: Performed By: #### F E Prof, TSH, CBCAD, FERR #### [facility] [address] [facility] [place] [id number] Neutrophils (Bld) [#/Vol] 4.6 10*3/uL Normal 1.5-7.8 [facility] Comment on above: Performed By: #### F E Prof, TSH, CBCAD, FERR #### [facility] [address] [facility] [place] [id number] Neutrophils/100 WBC (Bld) 56.8 % Normal [facility] Comment on above: Performed By: #### F E Prof, TSH, CBCAD, FERR #### [facility] [address] [facility] [place] [id number] Platelet mean volume (Bld) [Entitic vol] 12.10 fL Normal 7.50-12.50 [facility] Comment on above: Performed By: #### F E Prof, TSH, CBCAD, FERR #### [facility] [address] [facility] [place] [id number] Platelets (Bld) [#/Vol] 166 10*3/uL Normal 140-400 [facility] Comment on above: Performed By: #### F E Prof, TSH, CBCAD, FERR #### [facility] [address], [place] [id number] RBC (Bld) [#/Vol] 5.22 10*6/uL High 3.90-5.20 [facility] Comment on above: Performed By: #### F E Prof, TSH, CBCAD, FERR #### [facility] [address], [place] [id number] RDW-SD 49.0 fL Normal 37.0-50.0 [facility] Comment on above: Performed By: #### F E Prof, TSH, CBCAD, FERR #### [facility] [address], [place] [id number] WBC (Bld) [#/Vol] 8.1 10*3/uL Normal 3.8-11.0 [facility] Comment on above: Performed By: #### F E Prof, TSH, CBCAD, FERR #### [facility] [address], [place] [id number] Ferritinon 07-14-2021 FERR 36.8 ng/mL Normal 15.0-150.0 [facility] Comment on above: Performed By: #### F E Prof, TSH, CBCAD, FERR #### [facility] [address], [place] [id number] Iron Profileon 07-14-2021 %FESAT 21 % Normal 11-50 [facility] Comment on above: Performed By: #### F E Prof, TSH, CBCAD, FERR #### [facility] [address], [place] [id number] FE 67 ug/dL Normal 40-190 [facility] Comment on above: Result Comment: Refe eun range change 02/09/2017. Prior reference range F 37-145 ug/dL, M 59-158 ug/dL. Performed By: #### F E Prof, TSH, CBCAD, FERR #### [facility] [address] [place], [place] [id number] TIBC 316 ug/dL Normal 250-450 [facility] Comment on above: Performed By: #### F E Prof, TSH, CBCAD, FERR #### [facility] [address], [place] [id number] UIBC 249 ug/dL Normal 112-347 [facility] Comment on above: Performed By: #### F E Prof, TSH, CBCAD, FERR #### [facility] [address] [place], [place] [id number] TSHon 07-14-2021 TSH 1.430 uIU/mL Normal 0.400-4.500 [facility] Comment on above: Performed By: #### F E Prof, TSH, CBCAD, FERR #### [facility] [address] [place], [place] [id number] Vitamin B12on 07-14-2021 Cobalamin (Vitamin B12) [Mass/Vol] 216 pg/mL Normal 211-946 [facility] Comment on above: Performed By: #### B 12 #### [facility] [address], [place] [id number] Comprehensive Metabolic Pane bianka 02-28-2021 Albumin [Mass/Vol] 4.4 g/dL Normal 3.6-5.1 [facility] Comment on above: Performed By: #### L IPD, CMP #### [facility] [address] [place], [place] [id number] Albumin/Globulin [Mass ratio] 1.7 {ratio} Normal 1.0-2.5 [facility] Comment on above: Performed By: #### L IPD, CMP #### [facility] [address] [place], [place] [id number] ALP [Catalytic activity/Vol] 159 U/L High 35-119 [facility] Comment on above: Performed By: #### L IPD, CMP #### [facility] [address] [place], [place] [id number] ALT [Catalytic activity/Vol] 6 U/L Normal 6-33 [facility] Comment on above: Result Comment: 02/23 Female reference range changed. Performed By: #### L IPD, CMP #### [facility] [address] [place], [place] [id number] Anion gap [Moles/Vol] 19 mmol/L Normal 12-[address] [facility] Comment on above: Result Comment: Effe ctive 03/31/2019 reference range changed. Performed By: #### L IPD, CMP #### [facility] [address] [place], [place] [id number] AST [Catalytic activity/Vol] 13 U/L Normal 9-34 [facility] Comment on above: Performed By: #### L IPD, CMP #### [facility] [address], [place] [id number] BUN/CREA 21 Ratio Normal 6-22 [facility] Comment on above: Performed By: #### L IPD, CMP #### [facility] [address], [place] [id number] Calcium [Mass/Vol] 9.7 mg/dL Normal 8.6-10.2 [facility] Comment on above: Performed By: #### L IPD, CMP #### [facility] [address], [place] [id number] Chloride [Moles/Vol] 103 mmol/L Normal 98-107 [facility] Comment on above: Performed By: #### L IPD, CMP #### [facility] [address], [place] [id number] CO2 [Moles/Vol] 22 mmol/L Normal 20-31 [facility] Comment on above: Performed By: #### L IPD, CMP #### [facility] [address], [place] [id number] Creatinine [Mass/Vol] 0.6 mg/dL Normal 0.6-1.[address] [facility] Comment on above: Performed By: #### L IPD, CMP #### [facility] [address] [facility] [id number] eGFRAA 113 mL/min/1.73m2 Normal >60 [facility] Comment on above: Performed By: #### L IPD, CMP #### [facility] [address] [facility] [facility] [id number] eGFRNAA 93 mL/min/1.73m2 Normal >60 [facility] Comment on above: Performed By: #### L IPD, CMP #### [facility] [address], [place] [id number] Globulin (S) [Mass/Vol] 2.6 g/dL Normal 1.9-3.7 [facility] Comment on above: Performed By: #### L IPD, CMP #### [facility] [address], [place] [id number] Glucose [Mass/Vol] 102 mg/dL High 65-99 [facility] Comment on above: Result Comment: For FASTING Glucose --- ADA reference ranges: Normal 65-99 mg/dl Prediabetes 100-125 Diabetes >/= 126 Performed By: #### L IPD, CMP #### [facility] [address], [place] [id number] Potassium [Moles/Vol] 4.2 mmol/L Normal 3.5-5.[address] [facility] Comment on above: Performed By: #### L IPD, CMP #### [facility] [address], [place] [id number] Protein [Mass/Vol] 7.0 g/dL Normal 6.1-8.1 [facility] Comment on above: Performed By: #### L IPD, CMP #### [facility] [address], [place] [id number] Sodium [Moles/Vol] 140 mmol/L Normal 135-146 [facility] Comment on above: Performed By: #### L IPD, CMP #### [facility] [address], [place] [id number] TBIL <0.3 Normal [facility] Comment on above: Performed By: #### L IPD, CMP #### [facility] [address], [place] [id number] Urea nitrogen [Mass/Vol] 13 mg/dL Normal 7-25 [facility] Comment on above: Performed By: #### L IPD, CMP #### [facility] [address], [place] [id number] Lipid Panelon 02-28-2021 Cholesterol [Mass/Vol] 166 mg/dL Normal 125-200 No [facility] Comment on above: Result Comment: Low risk < 200mg/dL Borderline risk 201-239 mg/dl High risk > or equal to 240 Performed By: #### L IPD, CMP #### [facility] [address], [place] [id number] Cholesterol in HDL [Mass/Vol] 54 mg/dL Normal >40 [facility] Comment on above: Result Comment: High Cardiovascular Risk HDL <40 mg/dL Low Cardiovascular Risk HDL > or equal to 60 mg/dl Performed By: #### L IPD, CMP #### [facility] [address], [place] [id number] Cholesterol in LDL [Mass/Vol] 87 mg/dL Normal [facility] Comment on above: Result Comment: LDL ATP III CLASSIFICATION LDL less than 100 mg/dl Optimal LDL 100-129 mg/dl Near or above optimal LDL 130-159 Borderline high LDL 160-189 High LDL greater than 189 mg/dl Very High Performed By: #### L IPD, CMP #### [facility] [address], [place] [id number] Cholesterol in VLDL [Mass/Vol] 25 mg/dL Normal [facility] Comment on above: Performed By: #### L IPD, CMP #### [facility] [address], [place] [id number] Cholesterol.total/Chol esterol in HDL [Mass ratio] 3 {ratio} Normal [facility] Comment on above: Performed By: #### L IPD, CMP #### [facility] [address], [place] [id number] Triglyceride [Mass/Vol] 126 mg/dL Normal 30-150 [facility] Comment on above: Result Comment: TRIG ATPIII CLASSIFICATIONS TRIG less than 150 mg/dl Normal TRIG 150-199 mg/dl Borderline High TRIG 200-500 mg/dl High TRIG greather than 500 mg/dl Very High Performed By: #### L IPD, CMP #### [facility] [address], [place] [id number] Vital Signs Date Time Vital Sign Value Performing Clinician Facility 12-18-2024 15:16040 Body height 157.5 cm Fortunato Choi DPM Work Phone: [facility] 12-18-2024 15:16040 Body mass index (BMI) [Ratio] 21.22 kg/m2 Fortunato Brown DPM Work Phone: [facility] 12-18-2024 15:16-0400 Body weight 52.62 kg Fortunato Josh DPM Work Phone: [facility] 12-18-2024 15:16-0400 Respiratory rate 18 /min Fortunato Josh DPM Work Phone: [facility] 12-11-2024 17:15-0400 Diastolic blood pressure 68 mm[Hg] Villageovanna Nicolas II Work Phone: [facility] 12-11-2024 17:15-0400 Heart rate 66 /min Villa Nicolas II Work Phone: [facility] 12-11-2024 17:15-0400 Respiratory rate 16 /min Villa Nicolas II Work Phone: [facility] 12-11-2024 17:15-0400 SaO2% (BldA) [Mass fraction] 98 % Villa Nicolas II Work Phone: [facility] 12-11-2024 17:15-0400 Systolic blood pressure 147 mm[Hg] Villa Nicolas II Work Phone: [facility] 12-11-2024 13:55-0400 Inhaled oxygen flow rate 3 L/min Villa Nicolas II Work Phone: [facility] 12-11-2024 12:11-0400 Body height 160.02 cm Villa Nicolas II Work Phone: [facility] 12-11-2024 12:11-0400 Body weight 53.52 kg Villa Nicolas II Work Phone: [facility] 2024 14:21-0400 Body height 157.5 cm Villa Nicolas MD Work Phone: [facility] 2024 14:21-0400 Body mass index (BMI) [Ratio] 21.22 kg/m2 Villa Nicolas MD Work Phone: [facility] 2024 14:21-0400 Body weight 52.62 kg Villa Nicolas MD Work Phone: [facility] 2024 14:21-0400 Diastolic blood pressure 70 mm[Hg] Villa Nicolas MD Work Phone: [facility] 2024 14:21-0400 Heart rate 56 /min Villa Nicolas MD Work Phone: [facility] 2024 14:21-0400 SaO2% (BldA) [Mass fraction] 96 % Villa Nicolas MD Work Phone: [facility] 2024 14:21-0400 Systolic blood pressure 122 mm[Hg] Villa Nicolas MD Work Phone: [facility] 11-20-2024 14:00-0400 Body height 157.5 cm Fortunato Choi DPM Work Phone: [facility] 11-20-2024 14:00-0400 Body mass index (BMI) [Ratio] 20.3 kg/m2 Fortunato Choi DPM Work Phone: [facility] 11-20-2024 14:00-0400 Body weight 50.35 kg Fortunato Choi DPM Work Phone: [facility] 11-20-2024 14:00-0400 Respiratory rate 16 /min Fortunato Choi DPM Work Phone: [facility] 11-11-2024 11:05-0400 Body height 160.02 cm Villa Nicolas II Work Phone: [facility] 11-11-2024 11:05-0400 Body mass index (BMI) [Ratio] 19.6 kg/m2 Villa Nicolas II Work Phone: [facility] 11-11-2024 11:05-0400 Body temperature 97.6 [degF] Villa Nicolas II Work Phone: [facility] 11-11-2024 11:05-0400 Body weight 50.34 kg Villa Nicolas II Work Phone: [facility] 11-11-2024 11:05-0400 Diastolic blood pressure 78 mm[Hg] Villa Nicolas II Work Phone: [facility] 11-11-2024 11:05-0400 Heart rate 88 /min Villa Nicolas II Work Phone: [facility] 11-11-2024 11:05-0400 SaO2% (BldA) [Mass fraction] 96 % Villa Nicolas II Work Phone: [facility] 11-11-2024 11:05-0400 Systolic blood pressure 130 mm[Hg] Villa Nicolas II Work Phone: [facility] 11-06-2024 13:17-0400 Body height 157.5 cm Fortunato Brown DPM Work Phone: [facility] 11-06-2024 13:17-0400 Body mass index (BMI) [Ratio] 20.3 kg/m2 Fortunato Brown DPM Work Phone: [facility] 11-06-2024 13:17-0400 Body weight 50.35 kg Fortunato Brown DPM Work Phone: [facility] 11-06-2024 13:17-0400 Respiratory rate 16 /min Fortunato Brown DPM Work Phone: [facility] 10-30-2024 15:08-0400 Body height 157.5 cm Fortunato Brown DPM Work Phone: [facility] 10-30-2024 15:08-0400 Body mass index (BMI) [Ratio] 20.3 kg/m2 Fortunato Brown DPM Work Phone: [facility] 10-30-2024 15:08-0400 Body weight 50.35 kg Fortunato Brown DPM Work Phone: [facility] 10-30-2024 15:08-0400 Respiratory rate 18 /min Fortunato Brown DPM Work Phone: [facility] 10-23-2024 13:09-0400 Body height 157.5 cm Fortunato Brown DPM Work Phone: [facility] 10-23-2024 13:09-0400 Body mass index (BMI) [Ratio] 20.3 kg/m2 Fortunato Brown DPM Work Phone: [facility] 10-23-2024 13:09-0400 Body weight 50.35 kg Fortunato Brown DPM Work Phone: [facility] 10-23-2024 13:09-0400 Respiratory rate 18 /min Fortunato Brown DPM Work Phone: [facility] 10-16-2024 13:31-0400 Body height 157.5 cm Fortunato Brown DPM Work Phone: [facility] 10-16-2024 13:31-0400 Body mass index (BMI) [Ratio] 20.3 kg/m2 Fortunato Brown DPM Work Phone: [facility] 10-16-2024 13:31-0400 Body weight 50.35 kg Fortunato Brown DPM Work Phone: [facility] 10-16-2024 13:31-0400 Respiratory rate 16 /min Fortunato Brown DPM Work Phone: [facility] 10-09-2024 13:01-0400 Body height 157.5 cm Fortunato Brown DPM Work Phone: [facility] 10-09-2024 13:01-0400 Body mass index (BMI) [Ratio] 20.3 kg/m2 Fortunato Brown DPM Work Phone: [facility] 10-09-2024 13:01-0400 Body weight 50.35 kg Fortunato Brown DPM Work Phone: [facility] 10-09-2024 13:01-0400 Respiratory rate 16 /min Fortunato Brown DPM Work Phone: [facility] 09-18-2024 14:04-0400 Body height 157.5 cm Fortunato Choi DPM Work Phone: [facility] 09-18-2024 14:04-0400 Body mass index (BMI) [Ratio] 20.3 kg/m2 Fortunato Josh DPM Work Phone: [facility] 09-18-2024 14:04-0400 Body weight 50.35 kg Fortunato Josh DPM Work Phone: [facility] 09-18-2024 14:04-0400 Respiratory rate 16 /min Fortunato Brown DPM Work Phone: [facility] 09-10-2024 15:32-0400 Body height 160.02 cm Villa Nicolas II Work Phone: [facility] 09-10-2024 15:32-0400 Body mass index (BMI) [Ratio] 19.6 kg/m2 Villa Nicolas II Work Phone: [facility] 09-10-2024 15:32-0400 Body weight 50.34 kg Villa Nicolas II Work Phone: [facility] 09-10-2024 15:32-0400 Diastolic blood pressure 80 mm[Hg] Villa Nicolas II Work Phone: [facility] 09-10-2024 15:32-0400 Heart rate 55 /min Villa Nicolas II Work Phone: [facility] 09-10-2024 15:32-0400 Respiratory rate 16 /min Villa Nicolas II Work Phone: [facility] 09-10-2024 15:32-0400 SaO2% (BldA) [Mass fraction] 96 % Villa Nicolas II Work Phone: [facility] 09-10-2024 15:32-0400 Systolic blood pressure 124 mm[Hg] Villa Nicolas II Work Phone: [facility] 09-08-2024 13:20-0400 Body height 157.5 cm Villa Nicolas MD Work Phone: [facility] 09-08-2024 13:20-0400 Body mass index (BMI) [Ratio] 20.3 kg/m2 Villa Nicolas MD Work Phone: [facility] 09-08-2024 13:20-0400 Body weight 50.35 kg Villa Nicolas MD Work Phone: [facility] 09-08-2024 13:20-0400 Diastolic blood pressure 56 mm[Hg] Villa Nicolas MD Work Phone: [facility] 09-08-2024 13:20-0400 Heart rate 60 /min Villa Nicolas MD Work Phone: [facility] 09-08-2024 13:20-0400 SaO2% (BldA) [Mass fraction] 96 % Villa Nicolas MD Work Phone: [facility] 09-08-2024 13:20-0400 Systolic blood pressure 108 mm[Hg] Villa Nicolas MD Work Phone: [facility] 06-30-2024 14:01-0400 Body height 157.5 cm Villa Nicolas MD Work Phone: [facility] 06-30-2024 14:01-0400 Body mass index (BMI) [Ratio] 19.75 kg/m2 Villa Nicolas MD Work Phone: [facility] 06-30-2024 14:01-0400 Body weight 48.99 kg Villa Nicolas MD Work Phone: [facility] 06-30-2024 14:01-0400 Diastolic blood pressure 66 mm[Hg] Villa Nicolas MD Work Phone: [facility] 06-30-2024 14:01-0400 Heart rate 110 /min Villa Nicolas MD Work Phone: [facility] 06-30-2024 14:01-0400 SaO2% (BldA) [Mass fraction] 95 % Villa Nicolsa MD Work Phone: [facility] 06-30-2024 14:01-0400 Systolic blood pressure 110 mm[Hg] Villa Nicolas MD Work Phone: [facility] 06-17-2024 13:55-0400 Body mass index (BMI) [Ratio] 18.78 kg/m2 Barbara Mccann [employer]IVATE B[employer]ER Work Phone: [facility] 06-17-2024 13:55-0400 Body weight 48.08 kg Barbara Mccann [employer]IVATE [employer] Work Phone: [facility] 06-17-2024 13:55-0400 Diastolic blood pressure 84 mm[Hg] Barbara Mccann [employer]IVATE B[employer]ER Work Phone: [facility] 06-17-2024 13:55-0400 Heart rate 78 /min Barbara Mccann [employer]IVATE B[employer]ER Work Phone: [facility] 06-17-2024 13:55-0400 SaO2% (BldA) [Mass fraction] 96 % Barbara Mccann [employer]IVATE B[employer]ER Work Phone: [facility] 06-17-2024 13:55-0400 Systolic blood pressure 140 mm[Hg] Barbara Mccann [employer]IVATE B[employer]ER Work Phone: [facility] 05-29-2024 13:28-0500 Body height 160 cm Fortunato Choi DPM Work Phone: [facility] 05-29-2024 13:28-0500 Body mass index (BMI) [Ratio] 20.55 kg/m2 Fortunato Choi DPM Work Phone: [facility] 05-29-2024 13:28-0500 Body weight 52.62 kg Fortunato Choi DPM Work Phone: [facility] 05-29-2024 13:28-0500 Respiratory rate 18 /min Fortunato Choi DPM Work Phone: [facility] 04-14-2024 11:37-0500 Body height 160.02 cm Villa Nicolas II Work Phone: [facility] 04-14-2024 11:37-0500 Body mass index (BMI) [Ratio] 20.9 kg/m2 Villa Nicolas II Work Phone: [facility] 04-14-2024 11:37-0500 Body temperature 97.6 [degF] Villa Nicolas II Work Phone: [facility] 04-14-2024 11:37-0500 Body weight 53.52 kg Villa Nicolas II Work Phone: [facility] 04-14-2024 11:37-0500 Diastolic blood pressure 74 mm[Hg] Villa Nicolas II Work Phone: [facility] 04-14-2024 11:37-0500 Heart rate 72 /min Villa Nicolas II Work Phone: [facility] 04-14-2024 11:37-0500 SaO2% (BldA) [Mass fraction] 97 % Villa Nicolas II Work Phone: [facility] 04-14-2024 11:37-0500 Systolic blood pressure 122 mm[Hg] Villa Nicolas II Work Phone: [facility] 02-04-2024 13:13-0500 Body mass index (BMI) [Ratio] 20.55 kg/m2 Jamia Funez [employer]IVATE B[employer]ER Work Phone: [facility] 02-04-2024 13:13-0500 Body weight 52.62 kg Jamia Funez [employer]IVATE B[employer]ER Work Phone: [facility] 02-04-2024 13:13-0500 Diastolic blood pressure 81 mm[Hg] Jamia Funez [employer]IVATE B[employer]ER Work Phone: [facility] 02-04-2024 13:13-0500 Heart rate 87 /min Jamia Funez [employer]IVATE B[employer]ER Work Phone: [facility] 02-04-2024 13:13-0500 Systolic blood pressure 136 mm[Hg] Jamia Funez [employer]IVATE B[employer]ER Work Phone: [facility] 12-31-2023 15:11-0400 Body mass index (BMI) [Ratio] 20.69 kg/m2 Villa Nicolas MD Work Phone: [facility] 12-31-2023 15:11-0400 Body weight 52.98 kg Villa Nicolas MD Work Phone: [facility] 12-31-2023 15:11-0400 Diastolic blood pressure 80 mm[Hg] Villa Nicolas MD Work Phone: [facility] 12-31-2023 15:11-0400 Heart rate 75 /min Villa Nicolas MD Work Phone: [facility] 12-31-2023 15:11-0400 Respiratory rate 17 /min Villa Nicolas MD Work Phone: [facility] 12-31-2023 15:11-0400 SaO2% (BldA) [Mass fraction] 96 % Villa Nicolas MD Work Phone: [facility] 12-31-2023 15:11-0400 Systolic blood pressure 105 mm[Hg] Villa Nicolas MD Work Phone: [facility] 12-06-2023 12:53-0400 Body height 160 cm Villa Nicolas MD Work Phone: [facility] 12-06-2023 12:53-0400 Body mass index (BMI) [Ratio] 20.55 kg/m2 Villa Nicolas MD Work Phone: [facility] 12-06-2023 12:53-0400 Body weight 52.62 kg Villa Nicolas MD Work Phone: [facility] 12-06-2023 12:53-0400 Diastolic blood pressure 66 mm[Hg] Villa Nicolas MD Work Phone: [facility] 12-06-2023 12:53-0400 Heart rate 80 /min Villa Nicolas MD Work Phone: [facility] 12-06-2023 12:53-0400 SaO2% (BldA) [Mass fraction] 96 % Villa Nicolas MD Work Phone: [facility] 12-06-2023 12:53-0400 Systolic blood pressure 128 mm[Hg] Villa Nicolas MD Work Phone: [facility] 07-21-2023 11:34-0400 Body temperature 99 [degF] Christian Webster MD [facility] 07-21-2023 11:34-0400 Diastolic blood pressure 56 mm[Hg] Christian Webster MD [email or web address] 07-21-2023 11:34-0400 Heart rate 68 /min Christian Webster MD [facility] 07-21-2023 11:34-0400 Respiratory rate 16 /min Christian Webster MD Work Phone: [facility] [employer] 07-21-2023 11:34-0400 SaO2% (BldA) [Mass fraction] 95 % Christian Webster MD Work Phone[email or web address] 07-21-2023 11:34-0400 Systolic blood pressure 115 mm[Hg] Christian Webster MD [email or web address] 07-20-2023 09:39-0400 Body height 160 cm Christian Webster MD [facility] 07-20-2023 09:39-0400 Body mass index (BMI) [Ratio] 22.72 kg/m2 Christian Webster MD [email or web address] 07-20-2023 09:39-0400 Body weight 58.15 kg Christian Webster MD Work [email or web address] 07-16-2023 11:22-0400 Body height 160.02 cm JOSHUA Nicolas Work Phone: [facility] 07-16-2023 11:22-0400 Body mass index (BMI) [Ratio] 22.4 kg/m2 JOSHUA Nicolas Work Phone: [facility] 07-16-2023 11:22-0400 Body temperature 96.7 [degF] JOSHUA Nicolas Work Phone: [facility] 07-16-2023 [id number] Body weight 57.6 kg II Villa Nicolas Work Phone: [facility] 07-16-2023 11:22-0400 Diastolic blood pressure 50 mm[Hg] II Villa Nicolas Work Phone: [facility] 07-16-2023 11:22-0400 Heart rate 63 /min II Villa Nicolas Work Phone: [facility] 07-16-2023 11:22-0400 SaO2% (BldA) [Mass fraction] 97 % II Villa Nicolas Work Phone: [facility] 07-16-2023 11:22-0400 Systolic blood pressure 92 mm[Hg] JOSHUA Nicolas Work Phone: [facility] 06-25-2023 10:52-0400 Body height 160.02 cm [facility] 06-25-2023 10:52-0400 Body mass index (BMI) [Ratio] 26 kg/m2 [facility] 06-25-2023 10:52-0400 Body temperature 96.6 [degF] [facility] 06-25-2023 10:52-0400 Body weight 66.67 kg [facility] 06-25-2023 10:52-0400 Diastolic blood pressure 60 mm[Hg] [facility] 06-25-2023 10:52-0400 Heart rate 67 /min [facility] 06-25-2023 10:52-0400 SaO2% (BldA) [Mass fraction] 93 % [facility] 06-25-2023 10:52-0400 Systolic blood pressure 128 mm[Hg] [facility] 05-24-2023 13:10-0500 Body height 160 cm Sta 2 [facility] [employer] [facility] 05-24-2023 13:10-0500 Body mass index (BMI) [Ratio] 22.71 kg/m2 Sta 2 [facility] [employer] [facility] 05-24-2023 13:10-0500 Body temperature 97.81 [degF] Sta 2 [facility] 05-24-2023 13:10-0500 Body weight 58.15 kg Sta 2 [facility] 05-24-2023 13:10-0500 Diastolic blood pressure 43 mm[Hg] Sta 2 [facility] 05-24-2023 13:10-0500 Heart rate 80 /min Sta 2 [facility] 05-24-2023 13:10-0500 Respiratory rate 16 /min Sta 2 [facility] 05-24-2023 13:10-0500 SaO2% (BldA) [Mass fraction] 93 % Sta 2 [facility] 05-24-2023 13:10-0500 Systolic blood pressure 98 mm[Hg] Sta 2 [facility] Encounters Encounter Date Encounter Type Care Provider Facility Start: 12-18-2024 End: 12-18-2024 Patient encounter procedure Fortunato Choi DPM Work Phone: [facility] Comment on above: Polyneuropathy due t o type 2 diabetes mellitus (HCC) (Primary Dx); PVD (peripheral vascular disease); Foot ulcer, left, with fat layer exposed (HCC) Start: 12-18-2024 End: 12-18-2024 ambulatory FORTUNATO CHOI Not Available Start: 12-18-2024 End: 12-18-2024 Bamboo flowsheet Fortunato Choi DPM Work Phone: [facility] Start: 12-18-2024 End: 12-18-2024 Bamboo flowsheet Fortunato Choi DPM Work Phone: [facility] Start: 12-11-2024 End: 12-11-2024 Admission to same day surgery center Aron Rain MD -Interventional Radiology Work Phone: Start: 12-11-2024 End: 12-11-2024 ambulatory Villa Nicolas II Work Phone: [facility] Work Phone: Start: 2024 End: 2024 Assay of hemosiderin, quant Villa Nicolas MD Work Phone: [facility] Work Phone: Start: 2024 End: 2024 Patient encounter procedure Villa Nicolas MD Work Phone: [facility] Comment on above: Routine general medi fabiola examination at health care facility (Primary Dx); ACP (advance care planning); HFrEF (heart failure with reduced ejection fraction) ([facility]); Dependent on wheelchair; Intervertebral disc disorder of lumbar region with myelopathy; Controlled type 2 diabetes mellitus with complication, without long-term current use of insulin ([facility]); Coronary artery disease involving three affiliated coronary artery of three affiliated heart without angina pectoris ; Mixed hyperlipidemia Start: 2024 End: 2024 ambulatory VILLA NICOLAS Not Available Start: 2024 End: 2024 Bamboo flowsheet Villa Nicolas MD Work Phone: [facility] Start: 2024 End: 2024 Bamboo flowsheet Villa Nicolas MD Work Phone: [facility] Start: 11-20-2024 End: 11-20-2024 Patient encounter procedure Fortunato Choi DPM Work Phone: [facility] Comment on above: Polyneuropathy due t o type 2 diabetes mellitus ([facility]) (Primary Dx); Foot ulcer, left, with fat layer exposed ([facility]); PVD (peripheral vascular disease) Start: 11-20-2024 End: 11-20-2024 Bamboo flowsheet Fortunato Choi DPM Work Phone: [facility] Start: 11-20-2024 End: 11-20-2024 Bamboo flowsheet Fortunato Choi DPM Work Phone: [facility] Start: 11-20-2024 End: 11-20-2024 ambulatory FORTUNATO CHOI Not Available Start: 11-18-2024 End: 11-18-2024 Refshiv Nicolas MD Work Phone: [facility] [employer] Comment on above: Intervertebral disc disorder of lumbar region with myelopathy Start: 11-14-2024 End: 11-15-2024 Refshiv Nicolas MD Work Phone: [facility] [employer] Comment on above: Type II diabetes more litus with manifestations (HCC) Start: 11-11-2024 End: 11-11-2024 ambulatory Villa Nicolas II Work Phone: [facility] Work Phone: Start: 11-11-2024 End: 11-11-2024 Patient encounter procedure Gely Silva APRN -[facility] Work Phone: Start: 11-06-2024 End: 11-06-2024 Bamboo flowsheet Fortunato Choi DPM Work Phone: [facility] Start: 11-06-2024 End: 11-06-2024 Bamboo flowsheet Fortunato Choi DPM Work Phone: [facility] Start: 11-06-2024 End: 11-06-2024 Office outpatient visit 15 minutes Fortunato Choi DPM Work Phone: [facility] Comment on above: Cellulitis of left f oot (Primary Dx); Foot ulcer, left, with fat layer exposed (HCC); 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); Left foot drop; PVD (peripheral vascular disease) Start: 11-06-2024 End: 11-06-2024 ambulatory FORTUNATO CHOI Not Available Start: 10-30-2024 End: 10-30-2024 Office outpatient visit 15 minutes Fortunato Choi DPM Work Phone: [facility] Comment on above: Cellulitis of left f oot (Primary Dx); 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); Foot ulcer, left, with fat layer exposed (HCC); PVD (peripheral vascular disease); Left foot drop Start: 10-30-2024 End: 10-30-2024 ambulatory FORTUNATO CHOI Not Available Start: 10-29-2024 End: 10-30-2024 Clinisync Result Encounter Generic External Data Provider [facility] External Department Unsolicited Start: 10-29-2024 End: 10-30-2024 Clinisync Result Encounter Generic External Data Provider [facility] External Department Unsolicited Start: 10-23-2024 End: 10-23-2024 Bamboo flowsheet Fortunato Choi DPM Work Phone: [facility] Start: 10-23-2024 End: 10-23-2024 Bamboo flowsheet Fortunato Choi DPM Work Phone: [facility] Start: 10-23-2024 End: 10-23-2024 Office outpatient visit 15 minutes Fortunato Choi DPM Work Phone: [facility] Comment on above: Cellulitis of left f oot (Primary Dx); 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); Foot ulcer, left, with fat layer exposed (HCC); PVD (peripheral vascular disease); Left foot drop Start: 10-23-2024 End: 10-23-2024 ambulatory FORTUNATO CHOI Not Available Start: 10-16-2024 End: 10-16-2024 Bamboo flowsheet Fortunato Choi DPM Work Phone: [facility] Start: 10-16-2024 End: 10-16-2024 Bamboo flowsheet Fortunato Choi DPM Work Phone: [facility] Start: 10-16-2024 End: 10-16-2024 Office outpatient visit 15 minutes Fortunato Choi DPM Work Phone: [facility] Comment on above: Cellulitis of left f oot (Primary Dx); 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); Foot ulcer, left, with fat layer exposed (HCC); PVD (peripheral vascular disease); Left foot drop Start: 10-16-2024 End: 10-16-2024 ambulatory FORTUNATO CHOI Not Available Start: 10-14-2024 End: 10-16-2024 Amina Nicolas MD Work Phone: [facility] Comment on above: Intervertebral disc disorder of lumbar region with myelopathy Start: 10-09-2024 End: 10-09-2024 Bamboo flowsheet Fortunato Choi DPM Work Phone: [facility] Start: 10-09-2024 End: 10-09-2024 Bamboo flowsheet Fortunato Choi DPM Work Phone: [facility] Start: 10-09-2024 End: 10-09-2024 Office outpatient visit 15 minutes Fortunato Choi DPM Work Phone: [facility] Comment on above: Cellulitis of left f oot (Primary Dx); 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); Foot ulcer, left, with fat layer exposed (HCC); PVD (peripheral vascular disease); Left foot drop Start: 10-09-2024 End: 10-09-2024 ambulatory FORTUNATO CHOI Not Available Start: 09-18-2024 End: 09-18-2024 Office outpatient visit 15 minutes Fortunato Choi DPM Work Phone: [facility] Comment on above: Cellulitis of left f oot (Primary Dx); 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); Pain due to onychomycosis of toenails of both feet; Left foot drop; Foot ulcer, left, with fat layer exposed (HCC) Start: 09-18-2024 End: 09-18-2024 Bamboo flowsheet Fortunato Choi DPM Work Phone: [facility] Start: 09-18-2024 End: 09-18-2024 Bamboo flowsheet Fortunato Choi DPM Work Phone: [facility] Start: 09-18-2024 End: 09-18-2024 ambulatory FORTUNATOVeronica CHOI Not Available Start: 09-10-2024 End: 09-10-2024 Patient encounter procedure Barbara Mccann [employer] 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 -[facility] [place] Work Phone: Start: 09-08-2024 End: 09-08-2024 Bamboo flowsheet Villa Nicolas MD Work Phone: [facility] Start: 09-08-2024 End: 09-08-2024 Bamboo flowsheet Villa Nicolas MD Work Phone: [facility] Start: 09-08-2024 End: 09-08-2024 Office outpatient visit 25 minutes Villa Nicolas MD Work Phone: [facility] Comment on above: PAD (peripheral mariaelena ry disease); HFrEF (heart failure with reduced ejection fraction) ([facility]); Muscle weakness; Intervertebral disc disorder of lumbar region with myelopathy Start: 09-08-2024 End: 09-08-2024 ambulatory VILLA NICOLAS Not Available Start: 08-25-2024 End: 08-25-2024 Refshiv Nicolas MD Work Phone: [facility] Comment on above: Intervertebral disc disorder of lumbar region with myelopathy Start: 08-04-2024 End: 08-04-2024 Refshiv Nicolas MD Work Phone: [facility] Comment on above: Intervertebral disc disorder of lumbar region with myelopathy Start: 07-07-2024 End: 07-07-2024 Refshiv Nicolas MD Work Phone: [facility] Comment on above: Intervertebral disc disorder of lumbar region with myelopathy Start: 06-30-2024 End: 06-30-2024 ambulatory VILLA NICOLAS Not Available Start: 06-30-2024 End: 06-30-2024 Bamboo flowsheet Villa Nicolas MD Work Phone: [facility] Start: 06-30-2024 End: 06-30-2024 Bamboo flowsheet Villa Nicolas MD Work Phone: [facility] Start: 06-30-2024 End: 06-30-2024 Office outpatient visit 25 minutes Villa Nicolas MD Work Phone: [facility] Comment on above: PAD (peripheral mariaelena ry disease) (CMS/HCC) (Primary Dx); HFrEF (heart failure with reduced ejection fraction) (CMS/HCC); General weakness; Polyneuropathy due to type 2 diabetes mellitus (CMS/HCC); Ischemic foot ulcer due to atherosclerosis of three affiliated artery of limb (CMS/HCC); Other generalized epilepsy and epileptic syndromes, not intractable, without status epilepticus (CMS/HCC); Inflammatory polyarthropathy (CMS/HCC); Disease of spinal cord, unspecified; Tobacco abuse Start: 06-24-2024 End: 06-25-2024 Refill Jamia Funez NP Work Phone: [facility] Comment on above: Parkinson's disease, unspecified whether dyskinesia present, unspecified whether manifestations fluctuate ([facility]/HCC) Start: 06-17-2024 End: 06-17-2024 Office outpatient visit 25 minutes Barbara Mccann NP Work Phone: [facility] Comment on above: Parkinsonism, unspec ified Parkinsonism type ([facility]/HCC) (Primary Dx); Parkinson's plus syndrome (CMS/HCC); Lumbar radiculopathy; Cervical dystonia; Polyneuropathy due to type 2 diabetes mellitus ([facility]/HCC); Cognitive impairment; Medication monitoring encounter; Cervical myelopathy ([facility]/HCC) Start: 06-17-2024 End: 06-17-2024 ambulatory BARBARA MCCANN Not Available Start: 06-16-2024 End: 06-16-2024 Refill Daniel [facility] Comment on above: Pain Start: 06-03-2024 End: 06-04-2024 Refill Villa Nicolas MD Work Phone: [facility] Comment on above: Intervertebral disc disorder of lumbar region with myelopathy Start: 06-02-2024 End: 06-02-2024 Telephone encounter Fortunato Chio DPM Work Phone: [facility] Comment on above: Med Refill Start: 05-29-2024 End: 05-29-2024 Bamboo flowsheet Fortunato Choi DPM Work Phone: [facility] Start: 05-29-2024 End: 05-29-2024 Bamboo flowsheet Fortunato Choi DPM Work Phone: [facility] Start: 05-29-2024 End: 05-29-2024 Office outpatient visit 15 minutes Fortunato Choi DPM Work Phone: [facility] Comment on above: Cellulitis of left f oot (Primary Dx); Pain due to onychomycosis of toenails of both feet; Left foot drop; Polyneuropathy due to type 2 diabetes mellitus ([facility]); PVD (peripheral vascular disease) ([facility]) Start: 05-29-2024 End: 05-29-2024 ambulatory FORTUNATO CHOI Not Available Start: 05-22-2024 End: 05-22-2024 ambulatory [facility] Start: 05-07-2024 End: 05-07-2024 Refill Villa Nicolas MD Work Phone: [facility] Comment on above: Intervertebral disc disorder of lumbar region with myelopathy Start: 04-14-2024 End: 04-14-2024 ambulatory Villageovanna Nicolas II Work Phone: [facility] Work Phone: Start: 04-14-2024 End: 04-14-2024 Patient encounter procedure Villa Nicolas II Work Phone: [facility] Work Phone: Start: 04-07-2024 End: 04-07-2024 Refill Fortunato CASTELLON Comment on above: Pain Start: 03-31-2024 End: 03-31-2024 ambulatory VILLA NICOLAS Not Available Start: 03-31-2024 End: 03-31-2024 Bamboo flowschristiane Nicolas MD Work Phone: [facility] Start: 03-31-2024 End: 03-31-2024 Bamboo flowsheet Villa Nicolas MD Work Phone: [facility] Start: 03-24-2024 End: 03-24-2024 Refill Jamia Funez [employer] B[employer]ER Work Phone: [facility] [facility] [address] Comment on above: Pain Start: 03-05-2024 End: 03-05-2024 Refill Villa Nicolas MD Work Phone: [facility] Comment on above: Intervertebral disc disorder of lumbar region with myelopathy; Mixed anxiety depressive disorder Start: 02-04-2024 End: 02-04-2024 Bamboo flowsheet Jamia Funez [employer]IVATE B[employer]ER Work Phone: [facility] Start: 02-04-2024 End: 02-04-2024 Bamboo flowsheet Jamia Funez PRIVATE B[employer]ER [facility] Start: 02-04-2024 End: 02-04-2024 Office outpatient visit 25 minutes Jamia Funez PRIVATE B[employer]ER Work Phone: [facility] Comment on above: Parkinson's plus syn drome (CMS/HCC) (Primary Dx); Cervical dystonia; Cervical myelopathy (CMS/HCC); Cognitive impairment; Medication monitoring encounter; Neuropathy; Pain Start: 02-04-2024 End: 02-04-2024 Refill Makenzie Sneed LPN [facility] Comment on above: Intervertebral disc disorder of lumbar region with myelopathy Start: 12-31-2023 End: 12-31-2023 Office outpatient visit 25 minutes Villa Nicolas MD Work Phone: [facility] Comment on above: Parkinson's disease with dyskinesia and fluctuating manifestations (CMS/HCC) (Primary Dx); Recurrent major depressive disorder, in full remission (CMS/HCC); Intervertebral disc disorder of lumbar region with myelopathy Start: 12-31-2023 End: 12-31-2023 ambulatory VILLA NICOLAS Not Available Start: 12-31-2023 End: 12-31-2023 Bamboo flowsheet iVlla Nicolas MD Work Phone: [facility] Start: 12-31-2023 End: 12-31-2023 Bamboo flowsheet Villa Nicolas MD Work Phone: [facility] Start: 12-11-2023 End: 12-11-2023 ambulatory [facility]AAudrey [facility] Start: 12-10-2023 End: 12-10-2023 Refill Makenzie Sneed LPN [facility] Comment on above: Intervertebral disc disorder of lumbar region with myelopathy Start: 12-06-2023 End: 12-06-2023 Bamboo flowsheet Villa Nicolas MD Work Phone: [facility] Start: 12-06-2023 End: 12-06-2023 Bamboo flowsheet Villa Nicolas MD Work Phone: [facility] Start: 12-06-2023 End: 12-06-2023 Office outpatient visit 25 minutes Villa Nicolas MD Work Phone: [facility] Comment on above: Parkinson's disease with dyskinesia and fluctuating manifestations (CMS/HCC) (Primary Dx); 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/HCC); Polyneuropathy due to type 2 diabetes mellitus (CMS/HCC); HFrEF (heart failure with reduced ejection fraction) (CMS/HCC); Moderate episode of recurrent major depressive disorder (HCC) (CMS/HCC); Closed nondisplaced fracture of base of fifth metacarpal bone of right hand, initial encounter Start: 07-20-2023 End: 07-21-2023 ambulatory CHRISTIAN WEBSTER [facility] Start: 07-20-2023 End: 07-21-2023 Subsequent hospital visit by physician Christian Webster MD Work Phone: [facility] Start: 07-16-2023 End: 07-16-2023 ambulatory II Villa Nicolas Work Phone: [facility] Work Phone: Start: 07-16-2023 End: 07-16-2023 Patient encounter procedure II Villa Nicolas Work Phone: [facility] Work Phone: Start: 07-06-2023 End: 07-06-2023 ambulatory II Villa Nicolas Work Phone: [facility] Work Phone: Start: 07-06-2023 End: 07-06-2023 Patient encounter procedure II Villa Nicolas Work Phone: [facility] [place] Work Phone: Start: 06-25-2023 End: 06-25-2023 ambulatory [facility] Work Phone: Start: 06-25-2023 End: 06-25-2023 Patient encounter procedure [facility] Work Phone: Start: 05-24-2023 End: 05-29-2023 ambulatory [facility] Start: 05-24-2023 End: 05-28-2023 Subsequent hospital visit by physician Sta Pat Rm 2 [facility] PRE-ADMIT TESTING Start: 05-07-2023 Refill Kae SANCHEZ [facility] Comment on above: Intervertebral disc disorder of lumbar region with myelopathy Start: 04-23-2023 Patient encounter status Kae alfaro [facility] Start: 04-05-2023 End: 04-05-2023 Subsequent hospital visit by physician Sta Pat Rm 1 [facility] PRE-ADMIT TESTING Comment on above: Canceled (Case cance lled) Start: 03-27-2023 End: 03-27-2023 Subsequent hospital visit by physician Sta Pat Rm 2 [facility] PRE-ADMIT TESTING Comment on above: Canceled (Patient) Start: 02-02-2023 End: 02-06-2023 ambulatory [facility] Start: 10-26-2022 End: 10-31-2022 ambulatory VILLA Alejandro [facility] Start: 06-27-2022 End: 06-28-2022 ambulatory YASMENE SINGH Facility: Start: 01-20-2022 End: 01-21-2022 ambulatory REBECA GOLDEN Facility: Start: 01-16-2022 End: 01-17-2022 ambulatory REBECA GOLDEN Facility: Start: 01-09-2022 End: 01-09-2022 ambulatory VILLA NICOLAS Facility:[facility] Start: 01-04-2022 End: 01-05-2022 ambulatory Ambrose Chuston Facility:[facility] Start: 12-30-2021 End: 12-31-2021 ambulatory VILLA NICOLAS Facility:[facility] Start: 11-25-2021 End: 11-26-[address] VILLA NICOLAS Facility: Start: 10-02-2016 End: 10-03-2016 Ambulatory DEFAULT PHYSICIAN Facility:[facility] Start: 08-04-2013 End: 06-27-2023 Patient encounter status Villa Nicolas MD Work Phone: [facility] Procedures Date Procedure Procedure Detail Performing Clinician Start: 12-11-2024 Lower limb angiography Vlila Nicolas II Work Phone: Start: 2024 Hemoglobin glycosylated a1c Villa smith MD Work Phone: Start: 10-29-2024 SEGMENTAL BLOOD PRESSURE Generic Externa l Data Provider Start: 10-23-2024 Radex foot complete minimum 3 views Fortunato Choi DPM Work Phone: Start: 04-14-2024 Ankle brachial pressure index Villa Nicolas II Work Phone: Start: 07-21-2023 Glucose blood reagent strip Christian [...] ultrasonography of bilateral carotid arteries II Villa Fidencio Work Phone: Start: 07-06-2023 Pulse volume recorder plethysmography II Villa Fidencio Work Phone: Start: 05-24-2023 Basic metabolic panel calcium total Yogial Karen Flores MD Work Phone: Start: 08-10-2022 History of coronary artery bypass grafting Status post coronary artery bypass graft Kae Barone MA Plan of Treatment Date Care Activity Detail Author Start: 03-30-2025 End: 03-30-2025 Patient encounter procedure 03/30/2025 1:00 PM EST Office [facility] [address] [facility] [address] [place] [id number] Villa Nicolas MD [address] [facility] [address] [place] [address] [facility] Start: 03-09-2025 Hemoglobin A1c measurement Diabetes: Hemoglobin A1C [facility] Start: 12-18-2024 End: 12-18-2024 Patient encounter procedure [facility] Comment on above: Polyneuropathy due t o type 2 diabetes mellitus (HCC) (Primary Dx); PVD (peripheral vascular disease); Foot ulcer, left, with fat layer exposed ([facility]) Start: 12-11-2024 [facility] Start: 2024 End: 2024 Patient encounter procedure [facility] Comment on above: Arrived Start: 2024 End: 2025 Comprehensive metabolic 2000 panel - Serum or Plasma Comprehensive metabolic panel Lab Routine HFrEF (heart failure with reduced ejection fraction) ([facility]) Expected: 2024 (Approximate), Expires: 2025 [facility] Work Phone: Comment on above: Expected: 2024 (Approximate), Expires: 2025 Start: 2024 End: 2025 Lipid 1996 panel - Serum or Plasma Lipid panel Lab Routine Mixed hyperlipidemia Expected: 2024 (Approximate), Expires: 2025 [facility] Comment on above: Expected: 2024 (Approximate), Expires: 2025 Start: 11-27-2024 End: 11-27-2024 Patient encounter procedure 11/27/2024 1:30 PM EDT Office Visit [facility] [address] [address] Fortunato Choi, YUE [address] [address] [facility] Start: 11-24-2024 Influenza vaccination Influenza Vacc ine (#1) [facility] Start: 11-20-2024 End: 11-20-2024 Patient encounter procedure [facility] Comment on above: Polyneuropathy due t o type 2 diabetes mellitus (HCC) (Primary Dx); Foot ulcer, left, with fat layer exposed (HCC); PVD (peripheral vascular disease) Start: 11-06-2024 End: 11-06-2024 Patient encounter procedure 11/06/2024 1:30 PM EDT Office Visit [facility] [address] [facility] [address] [place] [address] Fortunato Choi DPM [address] [address] Cellulitis of left foot (Primary Dx); Foot ulcer, left, with fat layer exposed (HCC); 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); Left foot drop; PVD (peripheral vascular disease) [facility] Comment on above: Cellulitis of left f oot (Primary Dx); Foot ulcer, left, with fat layer exposed (HCC); 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); Left foot drop; PVD (peripheral vascular disease) Start: 10-30-2024 End: 10-30-2024 Patient encounter procedure 10/30/2024 3:20 PM EDT Office Visit [facility] [address] [address] Fortunato Choi DPM [address] [address] [facility] Start: 10-23-2024 End: 10-23-2024 Patient encounter procedure [facility] Comment on above: Polyneuropathy due t o type 2 diabetes mellitus (HCC) (Primary Dx); Foot ulcer, left, with fat layer exposed (HCC); PVD (peripheral vascular disease); Left foot drop Start: 10-16-2024 End: 10-16-2024 Patient encounter procedure [facility] Comment on above: Cellulitis of left f oot (Primary Dx); 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); Foot ulcer, left, with fat layer exposed (HCC); PVD (peripheral vascular disease); Left foot drop Start: 10-09-2024 End: 10-09-2024 Patient encounter procedure 10/09/2024 1:20 PM EDT Office Visit [facility] [address] [address] Fortunato Choi DPM [address] [address] 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) (Primary Dx); Foot ulcer, left, with fat layer exposed (HCC); PVD (peripheral vascular disease); Left foot drop; Cellulitis of left foot [facility] Comment on above: Polyneuropathy due t o type 2 diabetes mellitus (HCC) (Primary Dx); Foot ulcer, left, with fat layer exposed (HCC); PVD (peripheral vascular disease); Left foot drop; Cellulitis of left foot Start: 09-29-2024 Hemoglobin A1c measurement Diabetes: Hemoglobin A1C [facility] Start: 09-18-2024 End: 09-18-2024 Patient encounter procedure [facility] Comment on above: Polyneuropathy due t o type 2 diabetes mellitus (HCC) (Primary Dx); Pain due to onychomycosis of toenails of both feet; Left foot drop; Cellulitis of left foot Start: 09-10-2024 End: 09-10-2024 Patient encounter procedure 09/10/2024 3:40 PM EDT Office Visit [facility] [address] [place] [address] Barbara Mccann NP [address] [place] [phone] [facility] Start: 09-08-2024 End: 09-08-2024 Patient encounter procedure [facility] Comment on above: Arrived Start: 08-07-2024 End: 08-07-2024 Patient encounter procedure 08/07/2024 2:50 PM EDT Office Visit [facility] 112 [facility] [address] [place] [phone] Fortunato Choi DPM [address] [facility] [address] [place] [address] [facility] Start: 07-30-2024 Urine screening for protein Diabetes: Urine Protein Screening [facility] Start: 06-30-2024 End: 06-30-2024 Patient encounter procedure 06/30/2024 2:00 PM EDT Office Visit [facility] 112 [facility] [address] [place] [address] Villa Nicolas MD 112 [facility] [address] [place] [address] [facility] Start: 06-29-2024 Hemoglobin A1c measurement Diabetes: Hemoglobin A1C [facility] Start: 06-17-2024 End: 06-17-2025 Cobalamin (Vitamin B12) [Mass/volume] in Serum or Plasma Vitamin B12 Lab Routine Cognitive impairment Expected: 06/17/2024 (Approximate), Expires: 06/17/2025 [facility] Comment on above: Expected: 06/17/2024 (Approximate), Expires: 06/17/2025 Start: 06-17-2024 End: 06-17-2024 Patient encounter procedure 06/17/2024 2:00 PM EDT Office Visit [facility] [address] [facility] [place] [address] Barbara Mccann NP [address] [facility] [place] [address] [facility] Start: 06-17-2024 End: 06-17-2025 Thyrotropin [Units/volume] in Serum or Plasma TSH Lab Routine Cognitive impairment Medication monitoring encounter Expected: 06/17/2024 (Approximate), Expires: 06/17/2025 [facility] Work Phone: Comment on above: Expected: 06/17/2024 (Approximate), Expires: 06/17/2025 Start: 05-29-2024 End: 05-29-2024 Patient encounter procedure [facility] Comment on above: Pain due to onychomy cosis of toenails of both feet (Primary Dx); Left foot drop; Polyneuropathy due to type 2 diabetes mellitus ([facility]) Start: 05-23-2024 Hemoglobin A1c measurement A1C test (Diabetic or Prediabetic) [facility] Start: 05-21-2024 End: 05-21-2024 Patient encounter procedure 05/21/2024 1:20 PM EST Office Visit [facility] [address] [facility] [place] [address] Barbara Mccann NP [address] [place] [address] [address] [facility] Start: 05-20-2024 End: 05-20-2024 Patient encounter procedure [facility] [place] [address] Start: 05-08-2024 End: 05-08-2024 Patient encounter procedure 05/08/2024 1:40 PM EST Office Visit [facility] [address] [facility] [address] [place] [phone] Fortunato Choi, DPKaren [address] [facility] 5 [place] [address] [facility] Start: 04-14-2024 Patient referral [facility] Work Phone: Start: 04-07-2024 End: 04-07-2024 Patient encounter procedure 04/07/2024 1:15 PM EST Office Visit [facility] [address] [facility] [address] [place] [phone] Villa Nicolas MD [address] [email or web address] [address] [place] [address] [facility] Start: 03-31-2024 End: 03-31-2024 Patient encounter procedure [facility] Comment on above: Arrived Start: 03-15-2024 Screening for malign ant neoplasm of colon Colorectal Cancer Screening [facility] Comment on above: Postponed from 12/08 (Patient Refused) Start: 03-04-2024 Screening for malign ant neoplasm of breast Mammogram [facility] Comment on above: Postponed from 12/08 (Patient Refused) Start: 02-04-2024 End: 02-04-2024 Patient encounter procedure 02/04/2024 1:20 PM EST Office Visit [facility] [place] [address] [place] [address] Jamia Funez NP [address] [place] [address] [facility] [place] [address] Start: 01-10-2024 End: 01-10-2024 Patient encounter procedure 01/10/2024 2:40 PM EDT Procedure Visit [facility] [address] [facility] [address] [place] [phone] Fortunato Choi DPM [address] [facility] 5 [place] [address] [facility] Start: 12-31-2023 End: 12-31-2023 Patient encounter procedure [facility] Comment on above: Arrived Start: 12-27-2023 End: 12-27-2023 Patient encounter procedure 12/27/2023 2:45 PM EDT Office Visit [facility] [address] [facility] [address] [place] [address] Villa Nicolas MD [address] [facility] [[email or web address]] [address] [place] [address] [facility] Start: 12-06-2023 End: 12-06-2023 Patient encounter procedure 12/06/2023 1:00 PM EDT Office Visit [facility] [address] [facility] [address] [place] [address] Villa Nicolas MD [address] [facility] [address] [place] [address] Arrived [facility] Comment on above: Arrived Start: 11-25-2023 Influenza vaccination Influenza Vacc ine (#1) [facility] Start: 10-27-2023 Hemoglobin A1c measurement Diabetes: Hemoglobin A1C [facility] Start: 10-25-2023 Influenza vaccination Flu vacc ine (Season Ended) [facility] Start: 09-23-2023 Influenza vaccination Influenza Vacc ine (#1) [facility] Comment on above: Postponed from 11/24 (Patient Refused) Start: 08-22-2023 End: 08-22-2023 Patient encounter procedure 08/22/2023 11:30 AM EDT Office Visit [facility] [address] [place] [address], [address] [place] [address] Christian Webster MD [address] [place] [address] [address] [place] [address] 4 week 1st post op-RE-DO L3-4 LUMBAR LAMINECTOMY [ [facility] Comment on above: 4 week 1st post op-R E-DO L3-4 LUMBAR LAMINECTOMY [ Start: 07-06-2023 Doppler ultrasonogra phy of bilateral carotid arteries US carotid doppler BI [facility] Start: 07-06-2023 Pulse volume recorde r plethysmography [facility] Start: 07-06-2023 US.doppler Carotid arteries - bilateral [facility] Start: 07-04-2023 End: 07-04-2023 Patient encounter procedure 07/04/2023 1:50 PM EDT Office Visit [facility] Neurosurgery [address] [facility] [place] [address] Christian Webster MD [address] [facility] [address] [place] [address] 4 week 1st post op-Redo L3-4 Lami [facility] Comment on above: 4 week 1st post op-R jenni L3-4 Lami Start: 06-25-2023 End: 06-25-2023 Patient encounter procedure 06/25/2023 2:00 PM EDT Office Visit [facility] [address] [facility] [address] [place] [phone] Villa Nicolas MD [address] [facility] [address] [place] [address] [facility] Start: 06-14-2023 Hemoglobin A1c measurement Diabetes: Hemoglobin A1C [facility] Start: 06-07-2023 End: 06-07-2023 Admission to same day surgery center 06/07/2023 9:55 AM EDT - 06/07/2023 12:00 PM EDT Surgery [facility] [place] [address] [place] [address] Christian Webster MD [address] [facility] [address] [place] [address] RE-DO L3-4 LUMBAR LAMINECTOMY [facility] OR Comment on above: RE-DO L3-4 LUMBAR LA MINECTOMY Start: 06-07-2023 End: 06-07-2023 Laminectomy w/o ffd > 2 vert seg lumbar LUMBAR LAMINECTOMY POSTERIOR Spinal stenosis of lumbar region, unspecified whether neurogenic claudication present 06/07/2023 9:[address] [facility] Start: 06-07-2023 Subsequent hospital visit by physician 06/07/2023 9:55 AM EDT Hospital Encounter [facility] [place] [address] [place] [address] Christian Webster MD [address] [place] [address] [address] [place] [address] [facility] [place] Start: 05-30-2023 End: 05-30-2023 Patient encounter procedure 05/30/2023 2:20 PM EST Office Visit [facility] [address] [facility] [address] [place] [address] Gema Polanco MD [address] [facility] [address] [place] [address] [facility] Start: 05-23-2023 End: 05-23-2023 Clinical Support 05/23/2023 11:00 AM EST Clinical Support [facility] [address] [facility] [address] [place] [phone] Crystal Cortés, [facility] [address] [place] [address] [facility] Start: 05-16-2023 End: 05-16-2023 Patient encounter procedure 05/16/2023 10:30 AM EST Office Visit [facility] Neurosurgery [address] [place] [address], [address] [facility] [place] [address] Christian Webster MD [address] [place] [address] [address] [place] [address] 4 week 1st post op-Redo L3-4 Lami [facility] Comment on above: 4 week 1st post op-R jenni L3-4 Lami Start: 04-20-2023 End: 04-20-2023 Admission to same day surgery center 04/20/2023 10:00 AM EST - 04/20/2023 11:55 AM EST Surgery [facility] [address] [place] [address] Christian Webster MD [address] [place] [address] REDO L3-4 LUMBAR LAMINECTOMY POSTERIOR [facility] OR Comment on above: REDO L3-4 LUMBAR KNOTT INECTOMY POSTERIOR Start: 04-20-2023 End: 04-20-2023 Knott facetectomy & foramotomy 1 segment lumbar LUMBAR LAMINECTOMY POSTERIOR Spinal stenosis of lumbar region, unspecified whether neurogenic claudication present 04/20/2023 10:00 AM [facility] Start: 04-20-2023 Subsequent hospital visit by physician 04/20/2023 10:00 AM EST Hospital Encounter [facility] [address] [place] [address] Christian Webster MD [address] [place] [address] [facility] [place] Start: 04-05-2023 Subsequent hospital visit by physician 04/05/2023 1:00 PM EST Hospital Encounter [facility] PRE-ADMIT TESTING [address] [place] [address] [facility] PRE-ADMIT TESTING Start: 02-19-2023 Annual Wellness Visi t (Medicare) Annual Wellness Visit (Medicare) [facility] [employer] [facility] Start: 01-26-2023 Hemoglobin A1c measurement A1C test (Diabetic or Prediabetic) [facility] [employer] [facility] Start: 12-09-2022 Screening for malign ant neoplasm of colon [facility] Start: 11-24-2022 COVID-19 Vaccine ( season) COVID-19 Vaccine ( season) [employer] [facility] [employer] [facility] Start: 10-24-2022 Influenza vaccination Flu vaccine (# 1) [employer] [facility] Start: 09-29-2022 Medicare Annual Well ness (AWV) Medicare Annual Wellness (AWV) [facility] Start: 01-14-2020 Shingles vaccine (2 of 2) Shingles vaccine (2 of 2) [facility] Start: 06-27-2019 Urine screening for protein Diabetes: Urine Protein Screening [facility] Start: 08-30-2018 Pneumococcal 65+ yea rs Vaccine (3 - PPSV23 or PCV20) Pneumococcal 65+ years Vaccine (3 - PPSV23 or PCV20) [facility] Start: 08-30-2018 Pneumococcal 65+ yea rs Vaccine (3 of 3 - PPSV23 or PCV20) Pneumococcal 65+ years Vaccine (3 of 3 - PPSV23 or PCV20) [facility] Start: 2010 Respiratory Syncytia l Virus (RSV) or age 60 yrs+ (1 - 1-dose 60+ series) Respiratory Syncytial Virus (RSV) or age 60 yrs+ (1 - 1-dose 60+ series) [facility] Start: 2000 Screening for malign ant neoplasm of breast Breast cancer screen [facility] Start: 12-09-1995 Screening for malign ant neoplasm of colon [facility] Start: 1990 Screening for malign ant neoplasm of breast Mammogram [facility] Start: 1969 DTaP/Tdap/Td vaccine (1 - Tdap) DTaP/Tdap/Td vaccine (1 - Tdap) [facility] Start: 1968 Hepatitis C screening Hepatitis C sc reen [facility] Start: 1962 Depression Screen Depression Screen [facility] Start: 1960 Lipid panel Lipids [facility] Start: 1950 Screening for malign ant neoplasm of colon [facility] Cobalamin (Vitamin B 12) [Mass/volume] in Serum or Plasma Vitamin B12 Lab Routine Neuropathy Ordered: 02/04/2024 [facility] Work Phone: Comment on above: Ordered: 02/04/2024 End: 07-20-2023 Glucose [Mass/volume] in Serum or Plasma POCT Glucose Point of Care Testing STAT One Time for 1 Occurrences starting 07/20/2023 until 07/20/2023 [facility] Work Phone: Comment on above: One Time for 1 Occur rences starting 07/20/2023 until 07/20/2023 Oxygen therapy [Mini mum Data Set] Initiate Oxygen Therapy Protocol Respiratory Care Routine As Needed until discontinued starting 07/20/2023 [facility] Comment on above: As Needed until disc ontinued starting 07/20/2023 Patient Education Know your Meds [facility] Work Phone: Patient referral [facility] Work Phone: Spirometry panel Incentive allen metry Respiratory Care Routine Every 2hr while awake until discontinued starting 07/20/2023 [facility] [employer] Comment on above: Every 2hr while awak e until discontinued starting 07/20/2023 US.doppler Lower extremity artery Vascular US lower extremity arterial Doppler complete Vascular Ultrasound High Priority PVD (peripheral vascular disease) Ordered: 10/23/2024 [facility] Work Phone: Comment on above: Ordered: 10/23/2024 [facility] Immunizations Immunization Date Immunization Notes Care Provider Fa [facility] 03-31-2024 Influenza, High-dose Seasonal, Quadrivalent, Preservative Free Fortunato Stevens MA [facility] 03-31-2024 influenza virus vacc ine, unspecified formulation Fortunato Choi DPM Work Phone: [facility] 02-02-2022 influenza, high dose seasonal, preservative-free Kae Barone MA [facility] 02-02-2022 influenza virus vacc ine, unspecified formulation Kae Barone MA [facility] 01-27-2022 SARS-CoV-2, Unspecified Kae sheehan MA [facility] 02-23-2021 influenza, high dose seasonal, preservative-free Kae Barone MA [facility] 03-11-2020 pneumococcal conjuga te vaccine, 13 valent Villa Nicolas MD Work Phone: [facility] 03-04-2020 tuberculin skin test ; purified protein derivative solution, intradermal Villa Nicolas MD Work Phone: [facility] 02-26-2020 tuberculin skin test ; purified protein derivative solution, intradermal Villa Nicolas MD Work Phone: [facility] 12-03-2019 Influenza, High-dose Seasonal, Quadrivalent, Preservative Free Kae Barone MA [facility] 11-19-2019 zoster vaccine recombinant Kae lyons MA [facility] 12-20-2017 Influenza, High-dose Seasonal, Quadrivalent, Preservative Free Kae Barone MA [facility] 08-30-2017 pneumococcal conjuga te vaccine, 13 valent Kae Barone MA [facility] 12-24-2014 seasonal influenza, intradermal, preservative free Kae Barone MA [facility] 02-23-2014 pneumococcal polysaccharide vaccine, 23 valent Villa Nicolas MD Work Phone: [facility] 01-26-2014 influenza, seasonal, injectable Kae Barone MA [facility] 02-28-2013 seasonal influenza, intradermal, preservative free Kae Barone MA [facility] 03-26-2011 pneumococcal polysaccharide vaccine, 23 valent Kae Barone MA [facility] Payers Date Payer Category Payer Self-pay [id number] 2017 Medicare [id number] 2017 Medicaid [id number] 1959 Medicaid [id number] 1959 Medicare [id number] 1959 Medicare [id number] 1959 Self-pay [id number] 1950 Unknown [id number] 2.16.84 0.1.848957.3.579.2.718 1950 Unknown [id number] 2.16.84 0.1.595853.3.579.2.718 1950 Unknown [id number] 2.16.84 0.1.881278.3.579.2.718 1950 Unknown [id number] 2.16.84 0.1.913557.3.579.2.593 1950 Unknown [id number] 2.16.84 0.1.094800.3.579.2.593 1950 Unknown [id number] 2.16.84 0.1.887226.3.579.2.593 1950 Unknown [id number] 2.16.84 0.1.372614.3.579.2.593 1950 Unknown [id number] 2.16.84 0.1.337380.3.579.2.593 1950 Unknown [id number] 2.16.8 40.1.589515.3.579.2.177 1950 Unknown [id number] 2.16.8 40.1.787854.3.579.2.177 1950 Unknown [id number] 2.16.8 40.1.079145.3.579.2.177 1950 Unknown [id number] 2.16. 840.1.752724.3.579.2.175 1950 Unknown [id number] 2.16.8 40.1.739662.3.579.2.1259 1950 Unknown [id number] 2.16.8 40.1.936625.3.579.2.1259 1950 Unknown [id number] 2.16.8 40.1.983472.3.579.2.1259 1950 Unknown [id number] 2.16.8 40.1.383627.3.579.2.1259 1950 Unknown [id number] 2.16.8 40.1.238952.3.579.2.1259 1950 Unknown [id number] 2.16.8 40.1.595315.3.579.2.1259 1950 Unknown [id number] 2.16.8 40.1.374269.3.579.2.1259 1950 Unknown [id number] 2.16.8 40.1.576828.3.579.2.1259 1950 Unknown [id number] 2.16.8 40.1.037379.3.579.2.1259 1950 Unknown [id number] 2.16.8 40.1.043549.3.579.2.9 1950 Unknown [id number] 2.16.8 40.1.860975.3.579.2.9 1950 Unknown [id number] 2.16.84 0.1.936909.3.579.2.1259 1950 Unknown [id number] 2.16.84 0.1.112613.3.579.2.1258 1950 Unknown [id number] 2.16.84 0.1.942582.3.579.2.1259 1950 Unknown [id number] 2.16.84 0.1.180690.3.579.2.1258 1950 Unknown [id number] 2.16.84 0.1.506859.3.579.2.1259 1950 Unknown [id number] 2.16.84 0.1.493870.3.579.2.1259 1950 Unknown [id number] 2.16.84 0.1.022940.3.579.2.1259 Unknown Unknown [id number] 2.16.8 40.1.444306.3.579.2.531 Unknown [id number] 2.16.8 40.1.911534.3.579.2.531 Social History Date Type Detail Facility Start: 10-26-2022 End: 2024 Tobacco smoking status WYIS Smokes tobacco daily [facility] History of tobacco use Cigarette Smoker B ON [facility] Start: 10-26-2022 End: 2024 Cigarettes smoked current (pack per day) - Reported 0.5 [facility] Start: 10-26-2022 End: 2024 Tobacco use and exposure Smokeless tobacco non-user [facility] Start: 02-02-2023 End: 07-20-2023 Alcohol intake Ex-drinker (finding) [facility] Start: 02-02-2023 End: 2024 Tobacco use panel [facility] Start: 10-26-2022 Tobacco Comment Started smoking at age 16, quit at the age of 30 then started smoking again a little over a year ago (written 10/26/2022) [facility] Start: 1950 Sex Assigned At Not on file [employer] Start: 04-23-2023 End: 12-18-2024 Alcohol intake Lifetime non-drinker (finding) [facility] Start: 03-29-2023 Alcohol Comment caffeine intake : 2-3 cups per day coffee, soda [facility] Start: 06-25-2023 End: 06-25-2023 Tobacco smoking status NHIS Smoker (finding) [facility] Start: 1950 Sex Assigned At Female [facility] Has the [facility], [employer], or [employer] threatened to shut off services in your home in past 12Mo No [employer] [employer] (I/We) worried whevinayak er (my/our) food would run out before (I/we) got money to buy more. Never true [employer] In the past 12 month s, has lack of transportation kept you from medical appointments or from getting medications? No [employer] [facility] Start: 04-15-2024 Sex Female (finding) [facility] Goals Date Patient Goal Desired Activity /State Functional Status Date Assessment Result Facility 2024 Patient Health Quest ionnaire 2 item (PHQ-2) [Reported] [facility] 09-08-2024 Patient Health Quest ionnaire 2 item (PHQ-2) [Reported] [facility] 06-30-2024 Patient Health Quest ionnaire 2 item (PHQ-2) [Reported] [facility] Clinical Notes 01-09-2022 to 2024 Villa Nicolas MD - 2024 2:15 PM EDTFortunato Choi DPM - 11/20/2024 2:20 PM EDTTelephone Encounter - FERN Beard - 11/18/2024 2:30 PM EDT Note Date & Type Note Facility 2024 History of Presen t illness Narrative Images from the original note were not included. Subjective : Chief Complaint: Mirna Quezada is an 74 y.o. female here for an annual wellness visit. I have reviewed and reconciled the history and medication list with the patient today. Current Outpatient Medications Medication Sig Dispense Refill amantadine (Symmetrel) 100 MG tablet Take 1 tablet (100 mg) by mouth Daily 30 tablet 1 aspirin 81 MG EC tablet Take 1 tablet (81 mg) by mouth in the morning. 100 tablet 3 atorvastatin (Lipitor) 40 MG tablet TAKE 1 TABLET BY MOUTH IN THE MORNING 100 tablet 3 carbidopa-levodopa (Sinemet) 25-100 MG tablet Take 1.5 tablets by mouth in the morning and 1.5 tablets at noon and 1.5 tablets in the evening and 1.5 tablets before bedtime. 180 tablet 2 clopidogrel (Plavix) 75 MG tablet TAKE 1 TABLET BY MOUTH ONCE DAILY 30 tablet 10 cyanocobalamin (Vitamin B-12) 1000 MCG tablet Take 1,000 mcg by mouth Daily dipyridamole (Persantine) 50 MG tablet Take 1 tablet (50 mg) by mouth in the morning and 1 tablet (50 mg) at noon and 1 tablet (50 mg) in the evening and 1 tablet (50 mg) before bedtime. 120 tablet 11 Farxiga 10 MG Take 10 mg by mouth Daily isosorbide mononitrate ER (Imdur) 30 MG 24 hr tablet Take 30 mg by mouth Daily lisinopril 5 MG tablet Take 5 mg by mouth in the morning. metFORMIN XR (Glucophage-XR) 750 MG 24 hr tablet Take 1 tablet (750 mg) by mouth Daily Take with evening meal 90 tablet 3 metoprolol succinate XL (Toprol-XL) 25 MG 24 hr tablet Take 25 mg by mouth in the morning. nitroglycerin (Nitrostat) 0.[address] 0.4 mg under the tongue every 5 (five) minutes if needed. nystatin (Mycostatin) 005377 UNIT/GM powder every 12 (twelve) hours. oxybutynin XL (Ditropan-XL) 10 MG 24 hr tablet TAKE 1 TABLET BY MOUTH EVERY MORNING 100 tablet 3 pregabalin (Lyrica) 150 MG capsule Take 1 capsule (150 mg) by mouth in the morning and 1 capsule (150 mg) in the evening and 1 capsule (150 mg) before bedtime. 90 capsule 3 primidone (Mysoline) 250 MG tablet TAKE 1 TABLET BY MOUTH AT BEDTIME 90 tablet 1 tiZANidine (Zanaflex) 4 MG tablet TAKE 1 TABLET BY MOUTH EVERY 6 HOURS IF NEEDED FOR MUSCLE SPASMS 30 tablet 10 varenicline (Chantix) 1 MG tablet Take 1 tablet (1 mg) by mouth in the morning and 1 tablet (1 mg) before bedtime. Take with full glass of water.. 60 tablet 5 Vortioxetine HBr (Trintellix) 10 MG tablet Take 10 mg by mouth Daily 30 tablet 11 HYDROcodone-acetaminophen (Mentone) 10-325 MG tablet Take 1 tablet by mouth every 6 (six) hours if needed for severe pain 120 tablet 0 No current facility-administered medications for this visit. Review of Systems List of current healthcare providers: Patient Care Team: Villa Nicolas MD as PCP - General (Internal Medicine) Villa Nicolas MD as PCP - ACO Reach Montse Celestin RN as Registered Nurse (Family Medicine) Barbara Mccann NP as Nurse Practitioner (Neurology) Medicare Annual Visit Over the past 2 weeks, how often have you been bothered by any of the following problems? Little interest or pleasure in doing things: Not at all Feeling down, depressed, or hopeless: Not at all Patient Health Questionnaire-2 Score: 0 [place] Fall Risk History of Falling, Immediate or Within 3 Months: No Secondary Diagnosis: No Ambulatory Aid: Crutches/cane/walker Health Risk Assessment Form Do you need help eating, bathing, using the toilet, dressing, or getting around your home?: No Can you prepare your own meals?: Yes Can you do your own housework without help?: No Can you shop for groceries or clothes without help?: No Do you exercise for about 20 minutes 3 or more days a week?: No How confident are you that you can control and manage most of your health problems?: Somewhat confident Can you mange your money, credit cards and accounts, pay bills and taxes?: No Cognitive Screening Three Word Registration: Apple, Watch, Inna Clock Drawing: Inability or Refusal to Draw Clock - 0 Three Word Recall: 2/3 words correct - 2 Total Score (0-5 Points): 2 Pain Assessment Pain Score: 6 Advance Care Planning Do you have a living will?: Yes Do you have a medical power of ip technology transactions attorney?: Yes Who is your medical power of ip technology transactions attorney?: zully Objective : BP 122/70 Pulse 56 Ht 5' 2 Wt 116 lb SpO2 96% BMI 21.22 kg/m No results found. Physical Exam Constitutional: Appearance: Normal appearance. HENT: Head: Normocephalic and atraumatic. Right Ear: Tympanic membrane, ear canal and external ear normal. Left Ear: Tympanic membrane, ear canal and external ear normal. Nose: Nose normal. Mouth/Throat: Mouth: Mucous membranes are moist. Pharynx: Oropharynx is clear. Eyes: Pupils: Pupils are equal, round, and reactive to light. Cardiovascular: Rate and Rhythm: Normal rate and regular rhythm. Heart sounds: Murmur heard. Decrescendo systolic murmur is present with a grade of 2/6. Pulmonary: Breath sounds: Decreased air movement present. Decreased breath sounds present. Abdominal: General: Bowel sounds are normal. Palpations: Abdomen is soft. Musculoskeletal: General: Normal range of motion. Cervical back: Neck supple. Feet: Comments: Fine tremors Feet: Left foot: Skin integrity: Skin breakdown and erythema present. Comments: Dry ulcer with scab as noted. Distal 2/3 of foot with dusky induration, cool to touch Skin: General: Skin is warm and dry. Neurological: Mental Status: She is alert and oriented to person, place, and time. Motor: Weakness present. Gait: Gait abnormal. Comments: Tremor. BLE weakness. In a wheelchair, gait not tested. Psychiatric: Mood and Affect: Mood is depressed. Behavior: Behavior normal. Thought Content: Thought content normal. Thought content is not paranoid or delusional. Thought content does not include suicidal ideation. Office Visit on 2024 Component Date Value Ref Range Status Hemoglobin A1C 2024 5.9 Final Assessment/Plan : The following health maintenance schedule was reviewed with the patient and provided in printed form in the after visit summary: Health Maintenance Topic Date Due Diabetes: Urine Protein Screening 06/27/2019 Influenza Vaccine (1) 11/24/2024 Diabetes: Hemoglobin A1C 03/09/2025 Mammogram Discontinued Diabetes: Retinopathy Screening Discontinued Pneumococcal Vaccine: 65+ Years Discontinued Colorectal Cancer Screening Discontinued Advance Care Planning Patient agreed to discuss advance care planning at today's wellness visit. We discussed that an advance directive is a legal document that only goes into effect if the patient is incapacitated and unable to speak for himself or herself. This would help healthcare providers to ensure that the patient gets the care that he or she wishes to receive. The goal is to provide a patient with the best possible quality of life. Encouraged patient to obtain a living will and durable power of ip technology transactions attorney for healthcare. We discussed telling girard people about their advance directives such as close family members, and requested a copy to scan into the patient's EHR. An advance directive packet was offered to the patient. Assessment/Plan Diagnoses and all orders for this visit: Routine general medical examination at health care facility ACP (advance care planning) HFrEF (heart failure with reduced ejection fraction) (HCC) - Comprehensive metabolic panel; Future Dependent on wheelchair Intervertebral disc disorder of lumbar region with myelopathy - HYDROcodone-acetaminophen (Mentone) 10-325 MG tablet; Take 1 tablet by mouth every 6 (six) hours if needed for severe pain Controlled type 2 diabetes mellitus with complication, without long-term current use of insulin (HCC) - POCT Glycated hemoglobin, total Coronary artery disease involving three affiliated coronary artery of three affiliated heart without angina pectoris Mixed hyperlipidemia - Lipid panel; Future Follow up in about 3 months (around 03/09/2025). Orders Placed This Encounter Procedures Comprehensive metabolic panel Standing Status: Future Number of Occurrences: 1 Expected Date: 2024 Expiration Date: 2025 Print requisition?: No Lipid panel Standing Status: Future Number of Occurrences: 1 Expected Date: 2024 Expiration Date: 2025 POCT Glycated hemoglobin, total Electronically signed by Villa Nicolas MD on 2024 documented in this encounter [facility] 11-20-2024 History of Presen t illness Narrative Images from the original note were not included. Patient: Mirna Quezada : 1950 PCP: Villa Nicolas MD SUBJECTIVE Pt present today for follow up of ulceration to left foot. Pt denies any n/f/v/c. Patient states that they have been using the following treatments for the ulcer of Betadine Pt is a DM2. Patient also had cellulitis left 2nd toe and has been taking oral antibiotics with Positive improvement. . Patient states negative pain to the left 2nd toe Patient denies n/f/v/c. She had referral to vascular sx on prior visit. Patient is scheduled for vascular stenting next week Allergies: Allergies Allergen Reactions Amoxicillin-Pot Clavulanate Angioedema Duloxetine Hives Mixed Ragweed Penicillin G Unknown Past Medical History: Past Medical History: Diagnosis Date Allergies angina Anxiety Arthritis Carotid artery disease Congestive heart failure (CHF) ([facility]) COVID-19 01/2020 Depression Diabetes mellitus, type 2 ([facility]) Fall 02/21/2020 inability to care for self [...] by mouth Daily, Disp: , Rfl: HYDROcodone-acetaminophen (Mentone) 10-325 MG tablet, Take 1 tablet by mouth every 6 (six) hours if needed for severe pain, Disp: 120 tablet, Rfl: 0 isosorbide mononitrate ER (Imdur) 30 MG 24 hr tablet, Take 30 mg by mouth Daily, Disp: , Rfl: lisinopril 5 MG tablet, Take 5 mg by mouth in the morning., Disp: , Rfl: metFORMIN XR (Glucophage-XR) 750 MG 24 hr tablet, TAKE 1 TABLET BY MOUTH EVERY EVENING WITH MEALS, Disp: 30 tablet, Rfl: 10 metoprolol succinate XL (Toprol-XL) 25 MG 24 hr tablet, Take 25 mg by mouth in the morning., Disp: , Rfl: nitroglycerin (Nitrostat) 0.4 MG SL tablet, Place 0.4 mg under the tongue every 5 (five) minutes if needed., Disp: , Rfl: nystatin (Mycostatin) 568695 UNIT/GM powder, every 12 (twelve) hours., Disp: [...] before bedtime. Take with full glass of water.., [...] file Tobacco Use Smoking status: Every Day Types: Cigarettes Smokeless tobacco: Never Vaping Use Vaping status: Never Used Substance and Sexual Activity Alcohol use: Never Comment: caffeine intake : 2-3 cups per day coffee, soda Drug use: Defer Sexual activity: Defer Other Topics Concern Not on file Social History Narrative Not on file Social Drivers of Health Financial Resource Strain: Medium Risk (07/26/2023) Received from [facility] Overall Financial Resource Strain (CARDIA) Difficulty of Paying Living Expenses: Somewhat hard Food Insecurity: Food Insecurity Present (07/26/2023) Received from [facility] Hunger Vital Sign Within the past 12 months, you worried that your food would run out before you got the money to buy more.: Sometimes true Ran Out of Food in the Last Year: Not on file Transportation Needs: No Transportation Needs (07/26/2023) Received from [facility] Transportation In the past 12 months, has lack of transportation kept you from medical appointments or from getting medications?: No Lack of Transportation (Non-Medical): Not on file Physical Activity: Not on file Stress: Not on file Social Connections: Not on file Intimate Partner Violence: Unknown (07/26/2023) Received from [facility] Humiliation, Afraid, Rape, and Kick questionnaire Fear of Current or Ex-Partner: No Emotionally Abused: Not on file Physically Abused: Not on file Sexually Abused: Not on file Housing Stability: Low Risk (07/26/2023) Received from [facility] Housing Stability Vital Sign Unable to Pay for Housing in the Last Year: Not on file Number of Places Lived in the Last Year: Not on file In the last 12 months, was there a time when you did not have a steady place to sleep or slept in a fdc (including now)?: No ROS: General: denies fever, chills, fatigue, malaise GI: denies loose or watery stool on antibiotic OBJECTIVE LE EXAM: DERM: Elongated thick yellow crumbly nails digits 1 through 10. negativehair growth b/l feet. Left 2nd toe at PIPJ region has increased edema with notable 0.3 cm x 0.2cm 0.2 cm subcutaneous thickness depth ulceration with negative erythema surrounding wound and fibrous slough with negative probe to bone VASC: barely palpable DP and negative PT pedal pulses. Warm to cool tibia to toes bilaterally NEURO: 5.07 Brohman Chago monofilament test intact to digits and forefoot bilaterally 125Hz tuning fork diminished to 1st MPJ bilaterally ORTHO: Positive pain on palpation to toenails of the left 1,2,3,4,5 toes and right 1,2,3,4,5 toes Foot +0 /5 DF of the left foot minimal pain on palpation left 2nd toe ulcer site LYNN PVR SEGMENTAL BLOOD PRESSURE [place] [id number] Cardiology Report Signed Patient: MIRNA QUEZADA MR#: [id number] : 1950 Acct:[id number] Age/Sex: 73 / F ADM Date: 10/29/24 Loc: CARD Attending Dr: FORTUNATO CHOI Ordering Physician: FORTUNATO CHOI Date of Service: 10/29/24 Procedure(s): CA segmental UE or LE PAZ Accession Number(s): [id number] cc: VILLA NICOLAS ; FORTUNATO CHOI [facility] Test Date: 2024-10-29 Pat Name: MIRNA QUEZADA Department: Room: - Gender: Female Mechanical 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 Interpretive Statements [...] 10/30/24 0903 10/30/24 0904 DD/ 1407 TD/TT: Audit Mgr: ASSESSMENT 1. 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 Foot ulcer, left, with fat layer exposed (HCC) 3. PVD (peripheral vascular disease) PLAN Continue with AFO Patient to use Betadine daily to area of ulceration Sharp debridement with 15 blade of subcutaneous ulceration to left foot with active bleeding noted and removal and excision of fibrotic and necrotic tissue to wound and DSD applied with neosporin. Pt to continue with Betadine daily and home health to apply Betadine with dry sterile dressing daily to the left 2nd toe Fortunato Choi DPM documented in this encounter [facility] 11-18-2024 Telephone encount er Note OARRS reviewed, Rx sent into patient's pharmacy. [facility] 11-18-2024 Miscellaneous Notes Formattin g of this note might be different from the original. OARRS reviewed, Rx sent into patient's pharmacy. OV 09/08/24 RF 10/16/24 Clint called requesting a refill on Mirna's HYDROcodone-acetaminophen (Mentone) 10-325 MG to [facility] in [place] documented in this encounter [facility] 11-18-2024 Telephone encount er Note OV 09/08/24 RF 10/16/24 [facility] 11-18-2024 Telephone encount er Note Clint called requesting a refill on Mirna's HYDROcodone-acetaminophen (Mentone) 10-325 MG to [facility] in [place] [facility] 11-15-2024 Telephone encount er Note Metformin sent. [facility] 11-15-2024 Miscellaneous Notes Formattin g of this note might be different from the original. Metformin sent. documented in this encounter [facility] 11-11-2024 Evaluation note Diagnosis Onset Date Resolution PAD (peripheral artery disease) acute November 11 11:00am Smoker acute November 11 025 11:00am Wound of left foot acute November 11, 2024 11:00am [facility] Work Phone: 1(168) 954-413907-24-2025 Telephone encounter Note* Telephone Encounter - FERN Beard - 10/16/2024 7:39 PM EDT OARRS reviewed, Rx [facility] into patient's pharmacy. [facility] [id number] Miscellaneous Notes* Telephone Encounter - FERN Beard - 10/16/2024 7:39 PM EDT OARRS reviewed, Rx sent into patient's pharmacy. * Telephone Encounter - Julissateddy Rico - 10/14/2024 2:48 PM EDT HYDROcodone-acetaminophen (Mentone) 10-325 MG tablet Ddm in dat [facility] [id number] Telephone encounter Note* Telephone Encounter - Julissa Rico - 10/14/2024 2:48 PM EDT HYDROcodone-acetaminophen (Mentone) 10-325 MG tablet Ddm in dat [facility] [id number] Evaluation note* Diagnosis Onset Date Resolution Status Admit Date Cognitive impairment acute September 10, 2024 3:21pm Cervical dystonia chronic September 102024 3:21pm Cervical myelopathy chronic September 10, 2024 3:21pm Lumbar radiculopathy chronic September 10, 2024 3:21pm Parkinsonism chronic September 10, 2 025 3:21pm Polyneuropathy chronic September 10, 2024 3:21pm [facility] Work Phone: 1(732) 852-287506-16-2025 History of Present illness Narrative* Villa Nicolas MD - 09/08/2024 1:45 PM EDT Images from the original note were not included. HPI Follow-up Additional comments: PAD Med Refill Additional comments: Hydrocodone-- dm dat Last edited by Makenzie Sneed LPN on 09/08/2024 1:25 PM. Subjective Patient ID: Mirna Quezada is a 73 y.o. female who presents for Follow-up (PAD) and Med Refill (Hydrocodone-- dm dat). Diabetes Mellitus Patient presents for follow up of diabetes. Current symptoms include: sore on foot. Patient denies hypoglycemia , polydipsia, and polyuria. Evaluation to date has included: fasting blood sugar, fasting lipid panel, and hemoglobin A1C. Home sugars: no checking blood sugars at hnome Med Refill Pertinent negatives include no chest pain or fatigue. Diabetes Pertinent negatives for diabetes include no chest pain and no fatigue. Over the past 2 weeks, how often have you been bothered by any of the following problems? Little interest or pleasure in doing things: Not at all Feeling down, depressed, or hopeless: Not at all Patient Health Questionnaire-2 Score: 0 Current Outpatient Medications on File Prior to Visit Medication Sig Dispense Refill amantadine (Symmetrel) 100 MG tablet Take 1 tablet (100 mg) by mouth Daily 30 tablet 1 aspirin 81 MG EC tablet Take 1 tablet (81 mg) by mouth in the morning. 100 tablet 3 atorvastatin (Lipitor) 40 MG tablet TAKE 1 TABLET BY MOUTH IN THE MORNING 100 tablet 3 carbidopa-levodopa (Sinemet) 25-100 MG tablet Take 1.5 tablets by mouth in the morning and 1.5 tablets at noon and 1.5 tablets in the evening and 1.5 tablets before bedtime. 180 tablet 2 clopidogrel (Plavix) 75 MG tablet TAKE 1 TABLET BY MOUTH ONCE DAILY 30 tablet 10 cyanocobalamin (Vitamin B-12) 1000 MCG tablet Take 1,000 mcg by mouth Daily dipyridamole (Persantine) 50 MG tablet Take 1 tablet (50 mg) by mouth in the morning and 1 tablet (50 mg) at noon and 1 tablet (50 mg) in the evening and 1 tablet (50 mg) before bedtime. 120 tablet 11 Farxiga 10 MG Take 10 mg by mouth Daily isosorbide mononitrate ER (Imdur) 30 MG 24 hr tablet Take 30 mg by mouth Daily lisinopril 5 MG tablet Take 5 mg by mouth in the morning. metFORMIN XR (Glucophage-XR) 750 MG 24 hr tablet TAKE 1 TABLET BY MOUTH EVERY EVENING WITH MEALS 30tablet 10 metoprolol succinate XL (Toprol-XL) 25 MG 24 hr tablet Take 25 mg by mouth in the morning. nitroglycerin (Nitrostat) 0.[address] 0.4 mg under the tongue every 5 (five) minutes if needed. nystatin (Mycostatin) 058464 UNIT/GM powder every 12 (twelve) hours. oxybutynin XL (Ditropan-XL) 10 MG 24 hr tablet TAKE 1 TABLET BY MOUTH EVERY MORNING 100 tablet 3 pregabalin (Lyrica) 150 MG capsule Take 1 capsule (150 mg) by mouth in the morning and 1 capsule (150 mg) in the evening and 1 capsule (150 mg) before bedtime. 90 capsule 3 primidone (Mysoline) 250 MG tablet TAKE 1 TABLET BY MOUTH AT BEDTIME 90 tablet 1 tiZANidine (Zanaflex) 4 MG tablet TAKE 1 TABLET BY MOUTH EVERY 6 HOURS IF NEEDED FOR MUSCLE SPASMS 30 tablet 10 varenicline (Chantix) 1 MG tablet Take 1 tablet (1 mg) by mouth in the morning and 1 tablet (1 mg) before bedtime. Take with full glass of water.. 60 tablet 5 Vortioxetine HBr (Trintellix) 10 MG tablet Take 10 mg by mouth Daily 30 tablet 11 [DISCONTINUED] HYDROcodone-acetaminophen (Mentone) 10-325 MG tablet Take 1 tablet by mouth every 6 (six) hours if needed for severe pain 120 tablet 0 No current facility-administered medications on file prior to visit. I have reviewed and reconciled the history and medication list with the patient today. Allergies Allergen Reactions Amoxicillin-Pot Clavulanate Angioedema Duloxetine Hives Mixed Ragweed Penicillin G Unknown Social History Tobacco Use Smoking status: Every Day Types: Cigarettes Smokeless tobacco: Never Vaping Use Vaping status: Never Used Substance Use Topics Alcohol use: Never Comment: caffeine intake : 2-3 cups per day coffee, soda Drug use: Defer Family History Problem Relation Name Age of Onset Hypertension Mother Heart disease Mother Heart disease Father Cancer Sibling Past Medical History: Diagnosis Date Allergies angina [...] pneumonia 04/03/2023 Myocardial infarction (HCC) Pneumonia 03/29/2023 Past Surgical History: Procedure Laterality Date ANGIOPLASTY CARDIAC CATHETERIZATION 2010 CARPAL TUNNEL RELEASE Left 01/09/2022 Dr. Rodriguez SECTION, CLASSIC 1982 CORONARY ANGIOPLASTY WITH STENT PLACEMENT CORONARY ARTERY BYPASS GRAFT 2000 DILATION AND CURETTAGE ECHOCARDIOGRAM 2014 LUMBAR LAMINECTOMY Bilateral 07/20/2023 L3-L4 TUBAL LIGATION Bilateral 1982 Visit Vitals BP 108/56 Pulse 60 Ht 5' 2 Wt 111 lb SpO2 96% BMI 20.30 kg/m Smoking Status Every Day BSA 1.48 m Review of Systems Constitutional: Negative for fatigue. Cardiovascular: Negative for chest pain. Objective Physical Exam Constitutional: Appearance: Normal appearance. HENT: Head: Normocephalic and atraumatic. Right Ear: Tympanic membrane, ear canal and external ear normal. Left Ear: Tympanic membrane, ear canal and external ear normal. Nose: Nose normal. Mouth/Throat: Mouth: Mucous membranes are moist. Pharynx: Oropharynx is clear. Eyes: Pupils: Pupils are equal, round, and reactive to light. Cardiovascular: Rate and Rhythm: Normal rate and regular rhythm. Heart sounds: Murmur heard. Decrescendo systolic murmur is present with a grade of 2/6. Pulmonary: Breath sounds: Decreased air movement present. Decreased breath sounds present. Abdominal: General: Bowel sounds are normal. Palpations: Abdomen is soft. Musculoskeletal: General: Normal range of motion. Cervical back: Neck supple. Feet: Comments: Fine tremors Feet: Left foot: Skin integrity: Skin breakdown and erythema present. Comments: Dry ulcer with scab as noted. Distal 2/3 of foot with dusky induration, cool to touch Skin: General: Skin is warm and dry. Neurological: Mental Status: She is alert and oriented to person, place, and time. Motor: Weakness present. Gait: Gait abnormal. Comments: Tremor. BLE weakness. In a wheelchair, gait not tested. Psychiatric: Mood and Affect: Mood is depressed. Behavior: Behavior normal. Thought Content: Thought content normal. Thought content is not paranoid or delusional. Thought content does not include suicidal ideation. Assessment/Plan Diagnoses and all orders for this visit: PAD (peripheral artery disease) - On Persantine and Chantix. Hs almost stopped smoking. She I doing better, less leg/foot pain. HFrEF (heart failure with reduced ejection fraction) (HCC) Muscle weakness Intervertebral disc disorder of lumbar region with myelopathy - HYDROcodone-acetaminophen (Mentone) 10-325 MG tablet; Take 1 tablet by mouth every 6 (six) hours ifneeded for severe pain Follow up in about 3 months (around 12/09/2024) for Routine F/U, Controlled Med Review. [id number] Telephone encounter Note* Telephone Encounter - Julissateddy Rico - 08/04/2024 11:10 AM EDT HYDROcodone-acetaminophen (Mentone) 10-325 MG tablet Ddm in dat [place] [id number] Miscellaneous Notes* Telephone Encounter - Julissa Jacky - 08/04/2024 11:10 AM EDT HYDROcodone-acetaminophen (Mentone) 10-325 MG tablet Ddm in dat documented in this [facility]04-14-2025 Telephone encounter Note* Telephone Encounter - Shabnam Hawley - 07/07/2024 1:07 PM EDT Clint called requesting a refill for Mirna on her HYDROcodone-acetaminophen (Mentone) 10-325 MG . To [facility] [id number] Miscellaneous Notes* Telephone Encounter - Shabnam Hawley - 07/07/2024 1:07 PM EDT Clint called requesting a refill for Mirna on her HYDROcodone-acetaminophen (Mentone) 10-325 MG . To [facility] in Dat documented in this [facility]04-07-2025 History of Present illness Narrative* Villa Nicolas MD - 06/30/2024 2:00 PM EDT Images from the original note were not included. HPI Follow-up Additional comments: Controlled/pain med sore on left foot Additional comments: This is an ongoing issue has seen PCP and podiatry states she has had 2 courses of abx Last edited by Makenzie Sneed LPN on 06/30/2024 2:08 PM. Subjective Patient ID: Mirna Quezada is a 73 y.o. female who presents for Diabetes, Follow-up (Controlled/pain med), sore on left foot (This is an ongoing issue has seen PCP and podiatry states she has had 2 courses of abx), and Med Refill. Diabetes Mellitus Patient presents for follow up of diabetes. Current symptoms include: sore on foot. Patient denies hypoglycemia , polydipsia, and polyuria. Evaluation to date has included: fasting blood sugar, fasting lipid panel, and hemoglobin A1C. Home sugars: 90-105 Diabetes Pertinent negatives for diabetes include no chest pain and no fatigue. Med Refill Pertinent negatives include no chest pain or fatigue. Current Outpatient Medications on File Prior to Visit Medication Sig Dispense Refill amantadine (Symmetrel) 100 MG tablet Take 1 tablet (100 mg) by mouth Daily 30 tablet 1 aspirin 81 MG EC tablet Take 1 tablet (81 mg) by mouth in the morning. 100 tablet 3 atorvastatin (Lipitor) 40 MG tablet TAKE 1 TABLET BY MOUTH IN THE MORNING 100 tablet 3 clopidogrel (Plavix) 75 MG tablet TAKE 1 TABLET BY MOUTH ONCE DAILY 30 tablet 10 cyanocobalamin (Vitamin B-12) 1000 MCG tablet Take 1,000 mcg by mouth Daily Farxiga 10 MG Take 10 mg by mouth Daily HYDROcodone-acetaminophen (Mentone) 10-325 MG tablet Take 1 tablet by mouth every 6 (six) hours if needed for severe pain 120 tablet 0 isosorbide mononitrate ER (Imdur) 30 MG 24 hr tablet Take 30 mg by mouth Daily lisinopril 5 MG tablet Take 5 mg by mouth in the morning. metFORMIN XR (Glucophage-XR) 750 MG 24 hr tablet TAKE 1 TABLET BY MOUTH EVERY EVENING WITH MEALS 30tablet 10 metoprolol succinate XL (Toprol-XL) 25 MG 24 hr tablet Take 25 mg by mouth in the morning. nitroglycerin (Nitrostat) 0.[address] 0.4 mg under the tongue every 5 (five) minutes if needed. nystatin (Mycostatin) 964511 UNIT/GM powder every 12 (twelve) hours. oxybutynin XL (Ditropan-XL) 10 MG 24 hr tablet TAKE 1 TABLET BY MOUTH EVERY MORNING 100 tablet 3 pregabalin (Lyrica) 150 MG capsule Take 1 capsule (150 mg) by mouth in the morning and 1 capsule (150 mg) in the evening and 1 capsule (150 mg) before bedtime. 90 capsule 0 primidone (Mysoline) 250 MG tablet TAKE 1 TABLET BY MOUTH AT BEDTIME 90 tablet 1 tiZANidine (Zanaflex) 4 MG tablet TAKE 1 TABLET BY MOUTH EVERY 6 HOURS IF NEEDED FOR MUSCLE SPASMS 30 tablet 10 Vortioxetine HBr (Trintellix) 10 MG tablet Take 10 mg by mouth Daily 30 tablet 11 carbidopa-levodopa (Sinemet) 25-100 MG tablet Take 1.5 tablets by mouth in the morning and 1.5 tablets at noon and 1.5 tablets in the evening and 1.5 tablets before bedtime. 180 tablet 2 No current facility-administered medications on file prior to visit. I have reviewed and reconciled the history and medication list with the patient today. Allergies Allergen Reactions Amoxicillin-Pot Clavulanate Angioedema Duloxetine Hives Mixed Ragweed Penicillin G Unknown Social History Tobacco Use Smoking status: Every Day Types: Cigarettes Smokeless tobacco: Never Vaping Use Vaping status: Never Used Substance Use Topics Alcohol use: Never Comment: caffeine intake : 2-3 cups per day coffee, soda Drug use: Defer Family History Problem Relation Name Age of Onset Hypertension Mother Heart disease Mother Heart disease Father Cancer Sibling Past Medical History: Diagnosis Date Allergies angina Anxiety Arthritis Carotid artery disease ([facility]) Congestive heart failure (CHF) ([facility]) COVID-19 01/2020 Depression ([facility]) Diabetes mellitus, type 2 ([facility]) Fall 02/21/2020 inability to care for self Gallbladder disease GERD (gastroesophageal reflux disease) Hearing loss of right ear, unspecified hearing loss type History of blood clots History of echocardiogram 02/09/2017 EF >55% History of migraine headaches Hypertension (CMS/HCC) Multifocal pneumonia 04/03/2023 Myocardial infarction (CMS/HCC) Pneumonia 03/29/2023 Past Surgical History: Procedure Laterality Date ANGIOPLASTY CARDIAC CATHETERIZATION 2010 CARPAL TUNNEL RELEASE Left 01/09/2022 Dr. Rodriguez SECTION, CLASSIC 1982 CORONARY ANGIOPLASTY WITH STENT PLACEMENT CORONARY ARTERY BYPASS GRAFT 2000 DILATION AND CURETTAGE ECHOCARDIOGRAM 2014 LUMBAR LAMINECTOMY Bilateral 07/20/2023 L3-L4 TUBAL LIGATION Bilateral 1982 Visit Vitals BP 110/66 Pulse 110 Ht 5' 2 Wt 108 lb SpO2 95% BMI 19.75 kg/m Smoking Status Every Day BSA 1.46 m Review of Systems Constitutional: Negative for fatigue. Cardiovascular: Negative for chest pain. Objective Physical Exam Constitutional: Appearance: Normal appearance. HENT: Head: Normocephalic and atraumatic. Right Ear: Tympanic membrane, ear canal and external ear normal. Left Ear: Tympanic membrane, ear canal and external ear normal. Nose: Nose normal. Mouth/Throat: Mouth: Mucous membranes are moist. Pharynx: Oropharynx is clear. Eyes: Pupils: Pupils are equal, round, and reactive to light. Cardiovascular: Rate and Rhythm: Normal rate and regular rhythm. Heart sounds: Murmur heard. Decrescendo systolic murmur is present with a grade of 2/6. Pulmonary: Breath sounds: Decreased air movement present. Decreased breath sounds present. Abdominal: General: Bowel sounds are normal. Palpations: Abdomen is soft. Musculoskeletal: General: Normal range of motion. Cervical back: Neck supple. Feet: Comments: Fine tremors Feet: Left foot: Skin integrity: Skin breakdown and erythema present. Comments: Dry ulcer with scab as noted. Distal 2/3 of foot with dusky induration, cool to touch Skin: General: Skin is warm and dry. Neurological: Mental Status: She is alert and oriented to person, place, and time. Motor: Weakness present. Gait: Gait abnormal. Comments: Tremor. BLE weakness. In a wheelchair, gait not tested. Psychiatric: Mood and Affect: Mood is depressed. Behavior: Behavior normal. Thought Content: Thought content normal. Thought content is not paranoid or delusional. Thought content does not include suicidal ideation. Assessment/Plan Diagnoses and all orders for this visit: PAD (peripheral artery disease) ([facility]) - dipyridamole (Persantine) 50 MG tablet; Take 1 tablet (50 mg) by mouth in the morning and 1 tablet (50 mg) at noon and 1 tablet (50 mg) in the evening and 1 tablet (50 mg) before bedtime. HFrEF (heart failure with reduced ejection fraction) ([facility]/HCC) General weakness Polyneuropathy due to type 2 diabetes mellitus ([facility]/HCC) Ischemic foot ulcer due to atherosclerosis of three affiliated artery of limb ([facility]) Other generalized epilepsy and epileptic syndromes, not intractable, without status epilepticus ([facility]) Inflammatory polyarthropathy (CMS/HCC) Disease of spinal cord, unspecified Tobacco abuse - varenicline (Chantix) 1 MG tablet; Take 1 tablet (1 mg) by mouth in the morning and 1 tablet (1 mg) before bedtime. Take with full glass of water.. Follow up in about 2 months (around 08/30/2024) for F/U med changes. documented in this [facility]04-02-2025 Telephone encounter Note* Telephone Encounter - Jamia Funez NP - 06/25/2024 7:59 AM EDT [id number] Miscellaneous Notes* Telephone Encounter - Jamia Funez NP - 06/25/2024 7:59 AM EDT Sent yesterday documented in this [facility]03-25-2025 History of Present illness Narrative* Barbara Mccann NP - 06/17/2024 2:00 PM EDT Images from the original note were not included. Chief Complaint Patient presents with Parkinson's Disease Memory Loss Subjective Mirna Quezada is a 73 y.o. female. History of Present Illness The patient presents today for follow-up. She is taking Sinemet 1.5 tablets four times a day. She denies dyskinesias and denies worsening of Parkinson's symptoms between Sinemet doses throughout the day. She believes her tremor has worsened some since the prior neurology appointment. The patient is right-hand dominant. She reports an intermittent tremor of the head/neck and bilateral upper extremities. She believes this is symmetric. She states her upper extremity tremor can occur with rest or action - I do it all the time. She typically wakes up around 9:00 am. She takes her1st Sinemet dose of the day shortly after waking and subsequent doses every 4 hours. The patient denies swallowing difficulty but admits to reduced volume of speech. She believes her balance is okay.She ambulates with a walker at home and utilizes a wheelchair when out in public. She denies any falls since the prior office visit. The patient reports chronic memory difficulty. She has some difficulty with word retrieval but denies issues recalling names. She denies dizziness, coordination difficulty, or slurred speech. She lives at home with her and has a caregiver who comes into the house for additional assistance. She is independent with feeding and toileting. She receives assistance with showering and dressing via an aide. She also receives assistance with medication management. She does not drive. Appetite and sleep are good. The patient denies numbness, pain, or paresthesias in the upper or lower extremities. She denies any significant neck or back pain recently. She feels somewhat weak in the arms and legs intermittently. She denies bowel or bladder dysfunction or incontinence. She denies any further new concerns. Review of Systems Constitutional: Negative for appetite change, chills, fatigue, fever and unexpected weight change. HENT: Positive for voice change. Negative for drooling and trouble swallowing. Eyes: Negative for visual change, double vision or loss of vision Respiratory: Negative for cough, shortness of breath and wheezing. Cardiovascular: Negative for chest pain and palpitations. Gastrointestinal: Negative for nausea and vomiting. Musculoskeletal: Positive for arthralgias and gait problem. Negative for back pain, myalgias and neck pain. Neurological: Positive for tremors and weakness. Negative for dizziness, seizures, syncope, facial asymmetry, speech difficulty, light-headedness, numbness and headaches. Positive for memory difficulty Psychiatric/Behavioral: Negative for hallucinations and suicidal ideas. The patient is not nervous/anxious. Past Medical History: Diagnosis Date Allergies angina Anxiety Arthritis Carotid artery disease ([facility]) Congestive heart failure (CHF) ([facility]) COVID-19 01/2020 Depression ([facility]) Diabetes mellitus, type 2 ([facility]) Fall 02/21/2020 inability to care for self Gallbladder disease GERD (gastroesophageal reflux disease) Hearing loss of right ear, unspecified hearing loss type History of blood clots History of echocardiogram 02/09/2017 EF >55% History of migraine headaches Hypertension ([facility]) Multifocal pneumonia 04/03/2023 Myocardial infarction ([facility]) Pneumonia 03/29/2023 Past Surgical History: Procedure Laterality Date ANGIOPLASTY CARDIAC CATHETERIZATION 2010 CARPAL TUNNEL RELEASE Left 01/09/2022 Dr. Rodriguez SECTION, CLASSIC 1982 CORONARY ANGIOPLASTY WITH STENT PLACEMENT CORONARY ARTERY BYPASS GRAFT 2000 DILATION AND CURETTAGE ECHOCARDIOGRAM 2014 LUMBAR LAMINECTOMY Bilateral 07/20/2023 L3-L4 TUBAL LIGATION Bilateral 1982 Family History Problem Relation Name Age of Onset Hypertension Mother Heart disease Mother Heart disease Father Cancer Sibling Social History Tobacco Use Smoking status: Every Day Types: Cigarettes Smokeless tobacco: Never Substance Use Topics Alcohol use: Never Comment: caffeine intake : 2-3 cups per day coffee, soda Allergies: Amoxicillin-pot clavulanate, Duloxetine, Mixed ragweed, and Penicillin g Vitals: 06/17/24 1355 BP: 140/84 Pulse: 78 SpO2: 96% Body mass index is 18.78 kg/m . Weight: 106 lb Neurologic exam: Mental status and general appearance: Awake and alert with unlabored respirations. Oriented to person, place, and time. Remote memory is intact. Recent memory is partially intact. Speech is clear and fluent without aphasia. Speech is somewhat dysarthric. Vocal tremulousness. Attention and concentration are normal. Fund [facility] is a ppropriate for level of education. Pleasant. Cervical dystonia. Cranial nerves: CN II: Visual acuity is normal. Visual king full to confrontation. CN III, IV, : Pupils are equal, round, and reactive to light. Extraocular movements intact. No ptosis present. CN V: Facial sensation is normal. CN VII: Full and symmetric facial movement. CN VIII: Hearing is normal to finger rub bilaterally. CN IX and X: Palate elevates symmetrically. CN XI: Shoulder shrug is normal bilaterally. CN XII: Tongue is midline without atrophy or fasciculation. Motor: RUE strength deltoid , biceps , triceps , wrist extensors , wrist flexor , and cylinder die machine helper strength 5/5. LUE strength deltoid , biceps , triceps , wrist extensors , wrist flexor , and cylinder die machine helper strength 4/5. RLE strength iliopsoas, quadriceps, tibialis anterior, and plantar flexion strength 4/5. LLE strength iliopsoas, quadriceps, tibialis anterior, and plantar flexion strength 4/5. Muscle atrophy of the bilateral lower extremities. Increased tone in the bilateral upper extremities which is mild. Intermittent neck and jaw tremor. Pill-rolling rest tremor of the bilateral upper extremities (left more prominent than right). Also, with a postural and intention tremor of the bilateral upper extremities. Sensory: Sensation is intact to light touch throughout all four extremities. Vibratory sensation is intact but diminished in the distal bilateral lower extremities in a stocking type distribution. Reflexes: RUE biceps reflex 4+ , brachioradialis reflex 4+. LUE biceps reflex 4+ , brachioradialis reflex 4+. RLE knee reflex 4+. LLE knee reflex 4+. Coordination: [id number] testing normal aside from tremor. Rapid alternating movements bradykinesia. Gait: Not assessed, as the patient presents in a wheelchair today. Review and summary of old records: CT of the head/ brain without contrast [facility] on 11/30/2023: No intracranial hemorrhage or abnormalextra-axial fluid collection. Changes of chronic small- vessel ischemia in the periventricular whitematter with secondary bilateral cerebral cortical atrophy. CT of the cervical spine without contrast at [facility] on 11/30/2023: No fracture or malalignment. Posterior cervical fusion. Fixed 3 mm anterolisthesis of C4 on C5 and chronic convex right curvature. MRI of the lumbar spine (ordered by [facility]) on 06/01/2023: Mechanical fusion L4-L5-S1 without evidenceof hardware failure. Multi-level degenerative disc disease and mild facet arthropathy. Moderate marked narrowing L3-L4 through L5-S1. MRI the lumbar spine at [facility] on 06/27/22: Moderate to severe L3-L4 spinal canal stenosis. Moderate to severe bilateral L3-L4 neural foraminal stenosis. L4-S1 posterior jannet and pedicle screw fusion. MRI of the cervical spine at [facility] on 06/28/22: Moderate to severe L3-L4 spinal canal stenosis. Moderate to severe bilateral L3-L4 neural foraminal stenosis. L4-S1 posterior jannet and pedicle screw fusion. [facility] at [facility] On 06/19/22: / and 05/28 recall Labs from 07/14/21: CBC unremarkable; iron 67, ferritin 36.8; TSH 1.430; B12 216 MRI of the cervical spine at [place] on 11/19/19: Moderate degenerative changes with a congenitallysmall central canal. This results in central and foraminal stenosis at multiple levels. There is associated myelopathy with increased signal in the central canal at C4/5. MRI of the brain with and without contrast at [place] on 08/19/19: Putaminal findings suggestive ofmultisystem atrophy. MRI of the lumbar spine at [place] on 03/07/19: No disc bulge. No central canal or neural foraminal stenosis. EMG of the bilateral lower extremities [facility] on 04/18/19: Polyneuropathy which is axon loss in type and severe. Additionally there is suggestion of radiculopathy. This was notconfirmed with the EMG. Assessment/Plan Diagnoses and all orders for this visit: Parkinsonism, unspecified Parkinsonism type (CMS/HCC) It is my impression that the patient has parkinsonism. She presents a quite significant tremor involving the neck, jaw, voice, and upper extremities. Also, with evidence of rigidity, bradykinesia, and gait instability. Symptoms seem to be tremor-predominant. Due to severe degenerative cervical spine disease, she primarily utilizes a wheelchair or walker for transferring. MRI of the brain was suggestive of multisystem atrophy, and given the patient's clinical presentation in addition to cerebellar features and speech changes, consideration is given to MSA-C. However, progression of symptoms has not necessarily been rapid. She was previously evaluated by movement disorder specialist at [facility]. Per documentation, they were more concerned for essential tremor withcervical dystonia, but she denies following with them more recently. PLAN: - Continue Sinemet 25-100 mg IR tablet - take 1.5 tablets by mouth 4 times a day (2 tablets seemed to cause dyskinesias previously) - Continue primidone 250 mg by mouth once daily at bedtime (for essential tremor component) - I believe the patient could benefit from an adjunctive treatment to help improve management of motor symptoms. Will start amantadine 100 mg by mouth once a day. I counseled the patient on possible adverse effects of this medication in detail. She verbalizes understanding and wishes to proceed - Failed entacapone and ropinirole previously - I recommended regular exercise as tolerated. I recommended referral to PT and OT for evaluation and treatment to help improve gait, balance, and functionality. The patient declined therapy at this time - We discussed referral to a tertiary care center for evaluation by a movement disorder specialist.I informed the patient that they could offer a 2nd opinion on her symptoms and treatment plan. The patient verbalizes understanding but politely refuses. The patient has already been evaluated in [place], [place], previously for this. She states she has no interest in deep brain stimulation or second opinion currently Cervical dystonia The patient has what appears to be cervical dystonia on exam. We discussed that this could be contributory to tremors, and she may benefit from treatment. She does take tizanidine which seems to helpsome, however, we could be more aggressive with treatment. PLAN: - Consider Botox consultation with Dr. Iqbal. This was deferred per patient request today Lumbar radiculopathy The patient does have lumbosacral radiculopathy suspected on EMG. MRI of hte lumbar spine on 06/27/22revealed moderate to severe multilevel spinal canal and neural foraminal stenosis. She is status post jannet placement and fusion at L4-S1. Due to the significant changes on MRI, she was referred to neurosurgery. She is now status post L3-L4 laminectomy on 07/21/23 PLAN: - Follow up with neurosurgery per their recommendations (Dr. Webster) - Continue Lyrica 150 mg by mouth three times a day. OARRS reviewed. I would not increase this doseany further Polyneuropathy due to type 2 diabetes mellitus (CMS/HCC) The patient has severe polyneuropathy as identified on EMG from 2019. I believe this is likely secondary to her diabetes. May be contributory to her gait instability. PLAN: - Continue Lyrica 150 mg by mouth three times a day. OARRS reviewed - Follow up closely with primary care provider for optimal management of diabetes - Fall prevention measures discussed - Check feet regularly for wounds Cognitive impairment The patient reports subjective cognitive impairment, primarily word-finding difficulty. B12 was lownormal. MRI brain revealed significant atrophy. Overall does well in terms of functionality and cognition; most of her functional limitations are physical in nature. MOCA score in 2022 was 25/30 with3/5 recall. PLAN: - Plan to repeat MOCA at follow-up - No longer taking vitamin B12 1000 mcg daily (patient stopped this on her own, unsure as to when) - Check labs (vitamin B12 and TSH) to evaluate for possibly reversible causes of cognitive impairment. I counseled the patient and the purpose of the labs, and she verbalizes understanding and statesshe will have been completed - Ensure adequate sleep (at least 8 hours per night), regular physical activity as tolerated, healthy diet, and use of memory aids Cervical myelopathy (CMS/HCC) Cervical myelopathy had been identified on MRI at [place] on 11/19/19. She underwent surgery of thecervical spine at [facility] in 2020. Likely contributing to the patients symptoms of weakness and she also has a history of degenerative changes throughout the spine. PLAN: - Follow up with neurosurgery per their recommendations - The patient has declined PT/OT Diagnosis and treatment options discussed in detail. All questions answered. The patient verbalizesunderstanding and is agreeable to the plan. Discussion in layman's terms. Follow up in the office within 1 to 2 months; sooner if needed for new or worsening symptoms. Barbara Mccann NP [facility] documented in this [facility]03-25-2025 Instructions* Patient Instructions* Barbara Mccann NP - 06/17/2024 2:00 PM EDT - Start amantadine as directed - Check labs (B12 and TSH) documented in this [facility]03-24-2025 Telephone encounter Note* Telephone Encounter - Jamia Funez NP - 06/16/2024 2:53 PM EDT OARRs reviewed. Rx sent [facility] [id number] Miscellaneous Notes* Telephone Encounter - Jamia Funez NP - 06/16/2024 2:53 PM EDT OARRs reviewed. Rx sent * Telephone Encounter - Daniel Randall MA - 06/16/2024 12:51 PM EDT Patients calls in requesting refill of Lyrica. Medication is pending. documented in this [address]24-2025 Telephone encounter Note* Telephone Encounter - Daniel Randall MA - 06/16/2024 12:51 PM EDT Patients calls in requesting refill of Lyrica. Medication is pending. [facility] [id number] Telephone encounter Note* Telephone Encounter - FERN Beard - 06/04/2024 1:32 PM EDT OARRS reviewed, Rx sent into patient's pharmacy. [place] [id number] Miscellaneous Notes* Telephone Encounter - FERN Beard - 06/04/2024 1:32 PM EDT OARRS reviewed, Rx sent into patient's pharmacy. * Telephone Encounter - Julissa Rico - 06/03/2024 11:46 AM EDT HYDROcodone-acetaminophen (Mentone) 10-325 MG tablet Ddm in dat documented in this encounterKansas City [facility] [id number] Telephone encounter Note* Telephone Encounter - Julissa Rico - 06/03/2024 11:46 AM EDT HYDROcodone-acetaminophen (Mentone) 10-325 MG tablet Ddm in dat [facility] [id number] Telephone encounter Note* Telephone Encounter - Fortunato Choi DPM - 06/02/2024 3:19 PM EDT done [facility] [id number] Miscellaneous Notes* Telephone Encounter - Fortunato Choi DPM - 06/02/2024 3:19 PM EDT done * Telephone Encounter - Juliane Jerez - 06/02/2024 3:16 PM EDT Pt called in and requested refill for doxycycline. documented in this encounterKansas City [facility] Medical [id number] Telephone encounter Note* Telephone Encounter - Juliane Jerez - 06/02/2024 3:16 PM EDT Pt called in and requested refill for doxycycline. [facility] [id number] History of Present illness Narrative* Fortunato Choi DPM - 05/29/2024 1:50 PM EST Patient: Mirna Quezada : 1950 PCP: Villa Nicolas MD SUBJECTIVE This is a 73 y.o. female that presents today with a CC of elongated, thick nails. Pt states nails have been elongated and thick for many years and cause pain with ambulation in shoegear. Pt has tried previous treatment with minimal relief. Pt presents today for nail care and treatment. Pt bends today with peripheral neuropathy Pt has AFO for left dropfoot. Patient also states that she has had lesion to her left 2nd toe for the past month and was seen by Cardiology who placed her on oral antibiotics. Denies nausea vomiting chills and states some pain tothe toe but states that lesion has improved over the past few weeks Patient denies n/f/v/c. Allergies: Allergies Allergen Reactions Amoxicillin-Pot Clavulanate Angioedema Duloxetine Hives Mixed Ragweed Penicillin G Unknown Past Medical History: Past Medical History: Diagnosis Date Allergies angina Anxiety Arthritis Carotid artery disease ([facility]) Congestive heart failure (CHF) ([facility]) COVID-19 01/2020 Depression ([facility]) Diabetes mellitus, type 2 ([facility]) Fall 02/21/2020 inability to care for self Gallbladder disease GERD (gastroesophageal reflux disease) Hearing loss of right ear, unspecified hearing loss type History of blood clots History of echocardiogram 02/09/2017 EF >55% History of migraine headaches Hypertension ([facility]) Multifocal pneumonia 04/03/2023 Myocardial infarction ([facility]) Pneumonia 03/29/2023 Medications: Current Outpatient Medications: aspirin 81 MG EC tablet, Take 1 [...] mcg by mouth Daily, Disp: , Rfl: Farxiga 10 MG, Take 10 mg by mouth Daily, Disp: , Rfl: HYDROcodone-acetaminophen (Mentone) 10-325 MG tablet, Take 1 tablet by mouth every 6 (six) hours if needed for severe pain, Disp: 120 tablet, Rfl: 0 lisinopril 5 MG tablet, Take 5 mg by mouth in the morning., Disp: , Rfl: metFORMIN XR (Glucophage-XR) 750 MG 24 hr tablet, TAKE 1 TABLET BY MOUTH EVERY EVENING WITH MEALS, Disp: 30 tablet, Rfl: 10 metoprolol succinate XL (Toprol-XL) 25 MG 24 hr tablet, Take 25 mg by mouth in the morning., Disp: , Rfl: nitroglycerin (Nitrostat) 0.4 MG SL tablet, Place 0.4 mg under the tongue every 5 (five) minutes ifneeded., Disp: , Rfl: nystatin (Mycostatin) 247929 UNIT/GM powder, every 12 (twelve) hours., Disp: , Rfl: oxybutynin XL (Ditropan-XL) 10 MG 24 hr tablet, TAKE 1 TABLET BY MOUTH EVERY MORNING, Disp: 30 tablet, Rfl: 10 pregabalin (Lyrica) 150 MG capsule, Take 1 capsule (150 mg) by mouth in the morning and 1 capsule (150 mg) in the evening and 1 capsule (150 mg) before bedtime., Disp: 90 capsule, Rfl: 1 primidone (Mysoline) 250 MG tablet, TAKE 1 TABLET BY MOUTH AT BEDTIME, Disp: 90 tablet, Rfl: 1 tiZANidine (Zanaflex) 4 MG tablet, TAKE 1 TABLET BY MOUTH EVERY 6 HOURS IF NEEDED FOR MUSCLE SPASMS, Disp: 30 tablet, Rfl: 10 Vortioxetine HBr (Trintellix) 10 MG tablet, Take 10 mg by mouth Daily, Disp: 30 tablet, Rfl: 11 Social History: Social History Socioeconomic History Marital status: Spouse name: Not on file Number of children: Not on file Years of education: Not on file Highest education level: Not on file Occupational History Not on file Tobacco Use Smoking status: Every Day Types: Cigarettes Smokeless tobacco: Never Vaping Use Vaping status: Never Used Substance and Sexual Activity Alcohol use: Never Comment: caffeine intake : 2-3 cups per day coffee, soda Drug use: Defer Sexual activity: Defer Other Topics Concern Not on file Social History Narrative Not on file Social Drivers of Health Financial Resource Strain: Medium Risk (07/26/2023) [facility] Overall Financial Resource Strain (CARDIA) Difficulty of Paying Living Expenses: Somewhat hard Food Insecurity: Food Insecurity Present (07/26/2023) Received from [facility] Hunger Vital Sign Within the past 12 months, you worried that your food would run out before you got the money to buymore.: Sometimes true Ran Out of Food in the Last Year: Not on file Transportation Needs: No Transportation Needs (07/26/2023) Received from [facility], [facility] Transportation In the past 12 months, has lack of transportation kept you from medical appointments or from getting medications?: No Lack of Transportation (Non-Medical): Not on file Physical Activity: Not on file Stress: Not on file Social Connections: Not on file Intimate Partner Violence: Unknown (07/26/2023) Received from [facility], [facility] Humiliation, Afraid, Rape, and Kick questionnaire Fear of Current or Ex-Partner: No Emotionally Abused: Not on file Physically Abused: Not on file Sexually Abused: Not on file Housing Stability: Low Risk (07/26/2023) Received from [facility], [facility] Housing Stability Vital Sign Unable to Pay [...] Left 2nd toe at PIPJ region has small black necrotic type lesion with negative drainage to the lesion with slight erythema surrounding the left great toe with thin rubor skin noted to bilateral feet VASC: Negative DP and negative PT pedal pulses. Warm to cool tibia to toes bilaterally NEURO: 5.07 Brohman Chago monofilament test intact to digits and forefoot bilaterally 125Hz tuning fork diminished to 1st MPJ bilaterally ORTHO: Positive pain on palpation to toenails of the left 1,2,3,4,5 toes and right 1,2,3,4,5 toes Foot +0 /5 DF of the left foot ASSESSMENT 1. Pain due to onychomycosis of toenails of both feet 2. Left foot drop 3. Polyneuropathy due to type 2 diabetes mellitus ([facility]) 4. Cellulitis of left foot 5. PVD (peripheral vascular disease) ([facility]) PLAN Discussed proper foot care with patient today. Debride nails in length and thickness digits 1 through 10 Patient to have AFO in the near future into where daily Patient to finish oral antibiotics and observe for any changes to her left 2nd toe and that if worsens to contact Podiatry. In addition discussed follow up with vascular surgery when she has appointment in the next few weeks. Patient did inform that she has had LYNN PVRs in the recent past and is closely monitored by vascular due to microvascular disease to the foot and toes Fortunato Choi, YUE documented in this encounterKansas City [facility] Medical [id number] NotePatient here for 6 mo follow up CAD, ischemic cardiomyopathy, CHF, and valve disease. No labs/imaging since last visit in Nov 2023. Says she has some LLE edema but is seeing her proteomics scientist soon for this. She denies chest pain, SOB, palpitations, and lightheadedness/syncope. Review of Systems Cardiovascular: Positive for leg swelling (LLE). Musculoskeletal: Positive for arthritis, back pain, joint pain, muscle weakness, myalgias and neck pain. Neurological: Positive for tremors and weakness. All other systems reviewed and are negative.[facility] 05-22-2024 NoteCardiovascular Medicine [facility] SUBJECTIVE Chief Complaint Patient presents with Coronary Artery Disease Hypertension Congestive Heart Failure Valve Disorder Mirna Quezada is a 73 y.o. female here for follow-up. HPI PMHx significant for CAD s/p CABG (ALMARAZ to LAD, SVG to D1, SVG to OM 2000) and s/p PCI to RCA 07/30/2023, ICM, AV stenosis, COPD, HTN/HLD, and parkinson's disease 05/22/2024 She has been feeling well. Her weight has been running 118-125#. She has been having some left foot selling, particularly in her second toe where she has a wound and the surrounding toes and the dorsal part of her foot. She c/o pain with the swelling. She will be seeing her foot doctor in 2 week. She follows with vascular in [place]. Denies c/o CP, dyspnea, orthopnea, PND, dizziness/LH, palpitations, syncope. She has been feelling well overall since she was discharged. We reviewed her recent admission course while at [facility]. Questions answered, we reviewed her medications and stressed importance of DAPT compliance. She states understanding. Denies c/o CP, dyspnea, orthopnea, PND, LE edema, dizziness/LH, palpitations, syncope. Discharge Summary Final Discharge Diagnosis: NSTEMI (non-ST elevated myocardial infarction) ([facility]) Chronic systolic and diastolic congestive heart failure, NYHA class II Acute hypoxemic respiratory failure Community-acquired pneumonia Pressure ulcer, right buttock, stage I, present on admission. Type 2 diabetes mellitus Parkinson disease Admission Diagnosis: NSTEMI (non-ST elevated myocardial infarction) ([facility]/HCC) [I21.4] Hospital course: 72-year-old female with past medical history significant for CAD status post CABG in 2000, history of Parkinson disease, history of recent spinal fusion surgery. Patient presented to the hospital due to dizziness and not feeling well, she was initially evaluated at [facility] and was found to be hypoxic. Patient was requiring 3 L of oxygen and her CTA chest was concerning for bilateral pulmonary infiltrates. Workup also showed elevated troponins and a new drop in her ejection fraction to 40%. Patient was sent to [facility] so she can be evaluated by cardiology, [...] Abnormal gait COPD (chronic obstructive pulmonary disease) ([facility]/HCC) Autonomic neuropathy due to type 2 diabetes [...] aortic valve stenosis PAD (peripheral artery disease) Polyneuropathy due to type 2 diabetes mellitus [...] Elevated troponin Acute hypoxic respiratory failure (CMS/HCC) Multifo (more content not included)...[facility] 05-07-2024 Miscellaneous Notes* Telephone Encounter - FERN Beard - 05/07/2024 1:27 PM EST OARRS reviewed, Rx sent into patient's pharmacy. * Telephone Encounter - Julissa Rico - 05/07/2024 11:11 AM EST HYDROcodone-acetaminophen (Mentone) 10-325 MG tablet Ddm in dat documented in this encounterNOSaint John's [id number] Telephone encounter Note* Telephone Encounter - FERN Beard - 05/07/2024 1:27 PM EST OARRS reviewed, Rx sent into patient's pharmacy. [facility] [id number] Telephone encounter Note* Telephone Encounter - Julissa Rico - 05/07/2024 11:11 AM EST HYDROcodone-acetaminophen (Mentone) 10-325 MG tablet Ddm in dat [facility] [id number] Evaluation note* Diagnosis Onset Date Resolution Status Admit Date PAD (peripheral artery disease) acute April 14 11:33am Smoker acute April 14, 2024 11:33am Wound of left foot acute Januar 2024 11:33am [facility] Work Phone: 1(110) 358-559101-20-2025 Radiology Diagnostic [facility] [address] [place] [address] Ultrasound Report Signed Patient: Mirna Quezada MR#: [id number] : 1950 Acct:[id number] Age/Sex: 73 / F ADM Date: 5 Loc: [facility] Room: Type: [facility] Attending Dr: Aron Rain MD Ordering Provider: Aron Rain MD Date of Service: 04/14/24 US/US ankle/arm indices: I73.9 - Peripheral vascular disease, unspecified Copies to: Aron Rain MD~ LOWER EXTREMITY SEGMENTAL ARTERIAL DOPSCAN (PVR) INDICATION: Nonhealing wound PROCEDURE: Right arm blood pressure is 132 , left is 95 . Pressures at the right ankle are 111 using the posterior tibial artery, and 117 using the dorsalis pedis artery with ankle-brachial index of 0.84 0.89 . Pressures at the left ankle are 110 using the posterior tibial artery, and 93 with ankle-brachial index of 0.83 0.70 . Wave forms by plethysmography are mildly blunted US/US ankle/arm indices IMPRESSION: Mild bilateral peripheral vascular occlusive disease at rest Impression dictated by: Aron Rain M.D.04/14/2024 12:16 PM Dictation Location: [place] [address] Tech: Nataliia [employer] Transcribed By: FLOYD 04/14/241215 Dictated By: Aron Rain MD 04/14/241214 Signed By: 04/14/24 [address] [facility] Work Phone: 1(257) 651-378201-13-2025 Telephone encounter Note* Telephone Encounter - Fortunato Stevens MA - 04/07/2024 1:08 PM EST 02/04/2024 - Continue Lyrica 150 mg TID; OARRS reviewed due 04/03/2024 [facility] CenterHqhiezzqsh45-20-1312 Miscellaneous Notes* Telephone Encounter - Fortunato Stevens MA - 04/07/2024 1:08 PM EST 02/04/2024 - Continue Lyrica 150 mg TID; OARRS reviewed due 04/03/2024 documented in this encounterKansas City VA Medical CenterVfyzhjrpca07-76-9067 Telephone encounter Note* Telephone Encounter - aJmia Funez NP - 03/24/2024 9:51 AM EST OARRs reviewed. Note added for the pharmacy. [facility] CenterDlbknfxxdr88-79-0121 Miscellaneous Notes* Telephone Encounter - Jamia Funez NP - 03/24/2024 9:51 AM EST OARRs reviewed. Note added for the pharmacy. * Telephone Encounter - Tamiko Osborn MA - 03/24/2024 9:40 AM EST Last filled 03/04, would be due 04/03 documented in this [facility]12-30-2024 Telephone encounter Note* Telephone Encounter - Tamiko Osborn MA - 03/24/2024 9:40 AM EST Last filled 03/04, would be due 04/03 [facility] [id number] Telephone encounter Note* Telephone Encounter - FERN Beard - 03/05/2024 4:37 PM EST OARRS reviewed, Rx sent into patient's pharmacy. [facility] [id number] Miscellaneous Notes* Telephone Encounter - FERN Beard - 03/05/2024 4:37 PM EST OARRS reviewed, Rx sent into patient's pharmacy. * Telephone Encounter - Julissa Rico - 03/05/2024 3:50 PM EST Citalopran 40 mg [address] [facility] * Telephone Encounter - Estephanie Mullins - 03/05/2024 3:40 PM EST HYDROcodone-acetaminophen (Mentone) 10-325 [facility] tablet [facility] dat documented in this encounterKansas City [facility] Medical [id number] Telephone encounter Note* Telephone Encounter - Julissa Rico - 03/05/2024 3:50 PM EST Citalopran 40 mg [facility] [address] [facility] HospitalQbnphtfiim10-29-3615 Telephone encounter Note* Telephone Encounter - Estephanie Mullins - 03/05/2024 3:40 PM EST HYDROcodone-acetaminophen (Mentone) 10-325 MG tablet [facility] CenterMzcnektvrq92-69-3708 History of Present illness Narrative* Jamia Funez NP - 02/04/2024 1:20 PM EST Images from the original note were not included. Chief Complaint Patient presents with Parkinson's Disease Neck Pain Back Pain Diabetic Neuropathy Cognitive Impairment Subjective Mirna Quezada, 73 y.o., female Patient presents today for a follow up and presents here alone. She admits ED vist to [facility] for fall since last seen. Denies falls after that incident, states she tripped. Admits workup for this was nonacute. She ambulates with a walker at home at times, presents in a wheel chair today. Patient uses her wheelchair for most of her mobility. Patient admits constant tremors in both hands. This also affects her head but she states this has been less intense. She states the combination of Sinemet and Primidone have been somewhat helpful. She states she has no difficulty swallowing. Admits fatigue. States Lyrica is beneficial for pain. Denies recent visit with Dr Webster. Denies any other concerns today. Needs Lyrica refilled Review of Systems Constitutional: Negative for appetite change, fatigue and fever. Respiratory: Negative for cough, shortness of breath and wheezing. Cardiovascular: Negative for chest pain, palpitations and leg swelling. Gastrointestinal: Negative for abdominal pain, constipation, diarrhea and nausea. Musculoskeletal: Positive for arthralgias, back pain, gait problem and neck pain. Negative for myalgias. Neurological: Positive for tremors and weakness. Negative for dizziness, numbness and headaches. Past Medical History: Diagnosis Date Allergies angina Anxiety Arthritis Carotid artery disease (CMS/HCC) Congestive heart failure (CHF) (CMS/HCC) COVID-19 01/2020 Depression (CMS/HCC) Diabetes mellitus, type 2 (CMS/HCC) Fall 02/21/2020 inability to care for self Gallbladder disease GERD (gastroesophageal reflux disease) Hearing loss of right ear, unspecified hearing loss type History of blood clots History of echocardiogram 02/09/2017 EF >55% History of migraine headaches Hypertension (CMS/HCC) Multifocal pneumonia 04/03/2023 Myocardial infarction (CMS/HCC) Pneumonia 03/29/2023 Past Surgical History: Procedure Laterality Date ANGIOPLASTY CARDIAC CATHETERIZATION 2009 CARPAL TUNNEL RELEASE Left 01/09/2022 Dr. Rodriguez SECTION, CLASSIC 1982 CORONARY ANGIOPLASTY WITH STENT PLACEMENT CORONARY ARTERY BYPASS GRAFT 2000 DILATION AND CURETTAGE ECHOCARDIOGRAM 2014 LUMBAR LAMINECTOMY Bilateral 07/20/2023 L3-L4 TUBAL LIGATION Bilateral 1982 Family History Problem Relation Name Age of Onset Hypertension Mother Heart disease Mother Heart disease Father Cancer Sibling Social History Tobacco Use Smoking status: Every Day Types: Cigarettes Smokeless tobacco: Never Substance Use Topics Alcohol use: Never Comment: caffeine intake : 2-3 cups per day coffee, soda Allergies: Amoxicillin-pot clavulanate, Duloxetine, Mixed ragweed, and Penicillin g Vitals: 02/04/24 1313 BP: 136/81 Pulse: 87 Body mass index is 20.55 kg/m . weight: 116 lb Neurologic exam: Mental status: Well nourished, well developed and in no acute distress. Grossly oriented to person, place and time. Previous MOCA 25/30. Cervical dystonia. Dysarthria, with some spastic dysarthria. Vocal tremulousness. Attention and concentration are normal. Fund of knowledge is appropriate for level of education. Cranial nerves: CN II: Visual acuity is normal. Visual king full to confrontation. CN III, IV, : pupils equal round and reactive to light. Extraocular movements intact. No ptosis present. CN V: Facial sensation is normal. CN VII: Full and symmetric facial movement. CN VIII: Hearing is intact. CN IX and X: Palate elevates symmetrically. CN XI: Shoulder shrug is normal bilaterally. CN XII: Tongue is midline without atrophy or fasciculation. Motor: RUE Strength deltoid, , biceps , triceps , wrist extensors , wrist flexor , cylinder die machine helper strength 5/5. LUE Strength deltoid , biceps , triceps , wrist extensors , wrist flexor , cylinder die machine helper strength 4+/5. RLE Strength illopsoas, quadriceps, tibialis anterior, and gastrocnemius strength 4/5. LLE Strength illopsoas, quadriceps, tibialis anterior, and gastrocnemius strength 4/5. Significant bilateral postural and kinetic tremors of the BUE. Vocal tremulousness. Bradykinesia noted. Significant tremor of the head and bilateral upper extremities at rest and with intention. Muscle atrophy of the BLE. Sensory: Light Touch sensation intact to light touch in extremities. Vibration vibratory sensation diminished in distal extremities. Reflexes: RUE biceps reflex 4+, brachioradialis reflex 4+. LUE biceps reflex 4+, brachioradialis reflex 4+. RLE knee reflex 4+ LLE knee reflex 4+ Sanchez's Sign negative. Coordination: [id number] testing is normal Gait: Wheelchair Review and summary of old records: CT of the head/ brain without contrast [facility] ED on 11/30/2023: No intracranial hemorrhage or abnormalextra-axial fluid collection. Changes of chronic small- vessel ischemia in the periventricular whitematter with secondary bilateral cerebral cortical atrophy. CT of the cervical spine without contrast at [facility] ED on 11/30/2023: No fracture or malalignment. Posterior cervical fusion. Fixed 3 mm anterolisthesis of C4 on C5 and chronic convex right curvature. MRI of the lumbar spine (ordered by [facility]) on 06/01/2023: Mechanical fusion L4-L5-S1 without evidenceof hardware failure. Multi-level degenerative disc disease and mild facet arthropathy. Moderate marked narrowing L3-L4 through L5-S1. MRI the lumbar spine at [facility] on 06/27/22: Moderate to severe L3-L4 spinal canal stenosis. Moderate to severe bilateral L3-L4 neural foraminal stenosis. L4-S1 posterior jannet and pedicle screw fusion. MRI of the cervical spine at [facility] on 06/28/22: Moderate to severe L3-L4 spinal canal stenosis. Moderate to severe bilateral L3-L4 neural foraminal stenosis. L4-S1 posterior jannet and pedicle screw fusion. MOCA at [facility] On 06/19/22: 25/30 and 05/28 recall Labs from 07/14/21: CBC unremarkable; iron 67, ferritin 36.8; TSH 1.430; B12 216 MRI of the cervical spine at [facility] on 11/19/19: Moderate degenerative changes with a congenitallysmall central canal. This results in central and foraminal stenosis at multiple levels. There is associated myelopathy with increased signal in the central canal at C4/5. MRI of the brain with and without contrast at [place] [facility] on 08/19/19: Putaminal findings suggestive ofmultisystem atrophy. MRI of the lumbar spine at [facility] on 03/07/19: No disc bulge. No central canal or neural foraminal stenosis. EMG of the bilateral lower extremities [facility] on 1/24/20: Polyneuropathy which is axon loss in type and severe. Additionally there is suggestion of radiculopathy. This was notconfirmed with the EMG. Assessment/Plan Diagnoses and all orders for this visit: Parkinson's plus syndrome (CMS/HCC) The patient has significant tremor in the upper extremities and head; she also has a vocal tremor. Due to her severe degenerative cervical spinal disease even following cervical sugery she depends aquilino wheelchair for most of her mobility. MRI is suggestive of multisystem atrophy and based on the parkinsonian presentation with the cerebellar features (and the speech changes) Consideration given tomultisystem atrophy type C. However, the patient has NOT had rapid progression. Unsure if Sinemet is helping currently, although it was previously noted to be. She has seen a movement specialist at [facility] and they were more concerned for essential tremor with cervical dystonia but she denies following with them more recently. PLAN - Continue sinemet IR 1.5 tabs PO 4x/day (2 tablets seemed to cause dyskinesia). - Failed entacapone and ropinirole. - Continue primidone 250 mg QHS (essential tremor component) - She has already been seen in [place] for specialty movement Disorder care and we did offer referral to [facility] as well for additional opinion. The patient has refused this and is not interested in any further surgical options either. Cervical dystonia Patient has what appears to be cervical dystonia on exam. We discussed that this could be contributory to tremors and might benefit from treatment. She does take tizanidine which does seem to help some but we could be more aggressive with treatment. PLAN - Consider Botox consult with [place], though this has been deferred per patient request. Lumbar radiculopathy The patient does have lumbosacral radiculopathy suspected on EMG and clinically has low back pain that radiates into the legs. Lumbar MRI on 06/27/22 demonstrates moderate to severe multilevel spinal canal and neural foraminal stenosis. She does have a history of jannet placement and and fusion at L4-S1. Due to the significant changes on MRI we did opt to refer to [facility] and she is now status post L3/4 laminectomy on 07/21/23 PLAN - Follow up with [facility] as recommended (Dr. Webster) - Continue Lyrica 150 mg TID; OARRS reviewed. 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 Likely caused by her diabetes. PLAN: - Continue Lyrica 150 mg TID; OARRs reviewed. - Recommended tight glucose control and close follow up with PCP Cognitive impairment Patient with concerns of cognitive impairment, mainly word-finding difficulty. B12 was low normal. MRI brain with significant atrophy. Overall does well in regards to ADLs, most of her issues are physical in nature. MOCA in 2022 was 25/30 with 3/5 recall. PLAN - MOCA at follow up - Recheck B12 level prior to follow up, lab slip printed and given to the patient today - No longer taking B12 1000 mcg daily (patient stopped this on her own, unsure as to when) - Consider memory stabilizing agents in the future - Recommended adequate hydration, sleep hygiene, brain stimulating activity and compensation techniques Cervical myelopathy (CMS/HCC) Cervical myelopathy had been identified on MRI at [facility] on 11/19/19. She underwent surgery of thecervical spine at [facility] in 2020. Likely contributing to the patients symptoms of weakness and she also has a history of degenerative changes throughout the spine. PLAN: - Continue to follow with [facility] as recommended Service was performed by Jamia BARTON in collaboration with Dr. Martin who is present in the office today. Follow up in 3 months or sooner if symptoms worsen, fail to improve, or should a new neurological concern arise. Pt has been fully educated on their diagnosis, treatment options, follow up plan, and return instructions Cosigned by Bin Martin DO at 02/05/2024 7:58 AM EST documented in this encounterKansas City VA Medical [id number] History of Present illness Narrative* Villa Nicolas MD - 12/31/2023 3:00 PM EDT Images from the original note were not included. HPI Med Refill Additional comments: hydrocodone Last edited by Kae Barone MA on 12/31/2023 3:10 PM. Subjective Patient ID: Mirna Quezada is a 73 y.o. female who presents for a follow up. Mirna is in today for a follow up on her depression. States she's been feeling better and taking her medications. States she's feeling better. Denies any suicidal ideations. Current Outpatient Medications on File Prior to Visit Medication Sig Dispense Refill aspirin 81 MG EC tablet Take 1 tablet (81 mg) by mouth in the morning. 100 tablet 3 atorvastatin (Lipitor) 40 MG tablet TAKE 1 TABLET BY MOUTH IN THE MORNING 100 tablet 3 clopidogrel (Plavix) 75 MG tablet TAKE 1 TABLET BY MOUTH ONCE DAILY 30 tablet 10 cyanocobalamin (Vitamin B-12) 1000 MCG tablet Take 1,000 mcg by mouth in the morning. entacapone (Comtan) 200 MG tablet Take 200 mg by mouth in the morning and 200 mg at noon and 200 mgin the evening and 200 mg before bedtime. Farxiga 10 MG Take 10 mg by mouth Daily lisinopril 5 MG tablet Take 5 mg by mouth in the morning. metFORMIN XR (Glucophage-XR) 750 MG 24 hr tablet TAKE 1 TABLET BY MOUTH EVERY EVENING WITH MEALS 30tablet 10 metoprolol succinate XL (Toprol-XL) 25 MG 24 hr tablet Take 25 mg by mouth in the morning. nitroglycerin (Nitrostat) 0.[address] 0.4 mg under the tongue every 5 (five) minutes if needed. nystatin (Mycostatin) 124279 UNIT/GM powder every 12 (twelve) hours. oxybutynin XL (Ditropan-XL) 10 MG 24 hr tablet TAKE 1 TABLET BY MOUTH EVERY MORNING 30 tablet 10 pregabalin (Lyrica) 150 MG capsule Take 1 capsule (150 mg) by mouth in the morning and 1 capsule (150 mg) in the evening and 1 capsule (150 mg) before bedtime. 90 capsule 2 primidone (Mysoline) 250 MG tablet Take 1 tablet (250 mg) by mouth at bedtime 30 tablet 2 tiZANidine (Zanaflex) 4 MG tablet TAKE 1 TABLET BY MOUTH EVERY 6 HOURS IF NEEDED FOR MUSCLE SPASMS 30 tablet 10 Vortioxetine HBr (Trintellix) 10 MG tablet Take 10 mg by mouth Daily 30 tablet 11 [DISCONTINUED] HYDROcodone-acetaminophen (Mentone) 10-325 MG tablet Take 1 tablet by mouth every 8 (eight) hours 90 tablet 0 carbidopa-levodopa (Sinemet) 25-100 MG tablet Take 1.5 tablets by mouth in the morning and 1.5 tablets at noon and 1.5 tablets in the evening and 1.5 tablets before bedtime. 180 tablet 2 [DISCONTINUED] metFORMIN XR (Glucophage-XR) 750 MG 24 hr tablet Take 1 tablet (750 mg) by mouth in the evening. Take with meals. Do not crush, chew, or split. 100 tablet 3 No current facility-administered medications on file prior to visit. I have reviewed and reconciled the history and medication list with the patient today. Allergies Allergen Reactions Amoxicillin-Pot Clavulanate Angioedema Duloxetine Hives Mixed Ragweed Penicillin G Unknown Social History Tobacco Use Smoking status: Every Day Types: Cigarettes Smokeless tobacco: Never Vaping Use Vaping status: Never Used Substance Use Topics Alcohol use: Never Comment: caffeine intake : 2-3 cups per day coffee, soda Drug use: Defer Family History Problem Relation Name Age of Onset Hypertension Mother Heart disease Mother Heart disease Father Cancer Sibling Past Medical History: Diagnosis Date Allergies angina Anxiety Arthritis Carotid artery disease ([facility]) Congestive heart failure (CHF) ([facility]) COVID-19 01/2020 Depression ([facility]) Diabetes mellitus, type 2 ([facility]) Fall 02/21/2020 inability to care for self Gallbladder disease GERD (gastroesophageal reflux disease) Hearing loss of right ear, unspecified hearing loss type History of blood clots History of echocardiogram 02/09/2017 EF >55% History of migraine headaches Hypertension ([facility]) Multifocal pneumonia 04/03/2023 Myocardial infarction ([facility]) Pneumonia 03/29/2023 Past Surgical History: Procedure Laterality Date ANGIOPLASTY CARDIAC CATHETERIZATION 2010 CARPAL TUNNEL RELEASE Left 01/09/2022 Dr. Rodriguez SECTION, CLASSIC 1982 CORONARY ANGIOPLASTY WITH STENT PLACEMENT CORONARY ARTERY BYPASS GRAFT 2000 DILATION AND CURETTAGE ECHOCARDIOGRAM 2014 LUMBAR LAMINECTOMY Bilateral 07/20/2023 L3-L4 TUBAL LIGATION Bilateral 1982 Visit Vitals BP 105/80 Pulse 75 Resp 17 Wt 116 lb 12.8 oz SpO2 96% BMI 20.69 kg/m Smoking Status Every Day BSA 1.53 m Review of Systems Objective Physical Exam Constitutional: Appearance: Normal appearance. HENT: Head: Normocephalic and atraumatic. Right Ear: Tympanic membrane, ear canal and external ear normal. Left Ear: Tympanic membrane, ear canal and external ear normal. Nose: Nose normal. Mouth/Throat: Mouth: Mucous membranes are moist. Pharynx: Oropharynx is clear. Eyes: Pupils: Pupils are equal, round, and reactive to light. Cardiovascular: Rate and Rhythm: Normal rate and regular rhythm. Heart sounds: Murmur heard. Decrescendo systolic murmur is present with a grade of 2/6. Pulmonary: Breath sounds: Decreased air movement present. Decreased breath sounds present. Abdominal: General: Bowel sounds are normal. Palpations: Abdomen is soft. Musculoskeletal: General: Normal range of motion. Cervical back: Neck supple. Comments: Fine tremors Skin: General: Skin is warm and dry. Neurological: Mental Status: She is alert and oriented to person, place, and time. Motor: Weakness present. Gait: Gait abnormal. Comments: Tremor. BLE weakness. In a wheelchair, gait not tested. Psychiatric: Mood and Affect: Mood is depressed. Behavior: Behavior normal. Thought Content: Thought content normal. Thought content is not paranoid or delusional. Thought content does not include suicidal ideation. Assessment/Plan Diagnoses and all orders for this visit: Parkinson's disease with dyskinesia and fluctuating manifestations (CMS/HCC) - This is a chronic medical condition that is stable since last assessment. No changes in treatmentare suggested at this time. Recurrent major depressive disorder, in full remission (CMS/HCC) - Patient was previously seen for this problem. Interventions discussed at that prior visit have improved this problem significantly. Please seen that office visit for details. Intervertebral disc disorder of lumbar region with myelopathy - HYDROcodone-acetaminophen (Mentone) 10-325 MG tablet; Take 1 tablet by mouth every 8 (eight) hours Follow up in about 3 months (around 04/01/2024) for Controlled Med Review. documented in this encounterKansas City VA Medical [id number] NoteCardiovascular Medicine [facility] SUBJECTIVE No chief complaint on file. Mirna Quezada is a 73 y.o. female here for follow-up. HPI PMHx significant for CAD s/p CABG (ALMARAZ to LAD, SVG to D1, SVG to OM 2000), ICM, AV stenosis, COPD, HTN/HLD, and parkinson's disease. She is also s/p PCI of RCA. She presents today for follow up. She is doing well. No angina or anginal equivalents. She feels weak sometimes from her parkinson's, but denies any chest pain or shortness of breath. No lower extremity edema, orthopnea, ,or PND. She is taking her meds as prescribed. Patient Active Problem List Diagnosis Abnormal gait [...] to rule out surgical contraindication Primary cardiomyopathy ([facility]/HCC) Seasonal allergic rhinitis Tinnitus Status post coronary artery bypass graft Spinal stenosis of lumbar region Solitary pulmonary nodule Primary osteoarthritis Osteoarthrosis Tobacco user Type 2 diabetes mellitus without complication (CMS/HCC) Undifferentiated inflammatory polyarthritis (CMS/HCC) Chronic systolic heart failure (CMS/HCC) Elevated troponin Acute hypoxic respiratory failure (CMS/HCC) Multifocal pneumonia NSTEMI (non-ST elevated myocardial infarction) ([facility]/HCC) Past Medical History: Diagnosis Date Coronary artery disease Diabetes mellitus (CMS/HCC) GERD (gastroesophageal reflux disease) Heart valve disease Hyperlipidemia Primary cardiomyopathy (CMS/HCC) Family History Problem Relation Name Age of Onset Hypertension Mother ALS Father Social History Tobacco Use Smoking status: Every Day Current packs/day: 0.50 Types: Cigarettes Smokeless tobacco: Never Substance Use Topics Alcohol use: Yes Comment: occasional Allergies Allergen Reactions Augmentin [Amoxicillin-Pot Clavulanate] Cardiology ROS: 10 point ROS is performed and is negative unless otherwise specified in HPI. OBJECTIVE Visit Vitals BP 97/62 (BP Location: Left arm, Patient Position: Sitting) Pulse 81 Ht 1.6 m (5' 3 ) Wt 52.6 kg (116 lb) SpO2 96% BMI 20.55 kg/m??? Smoking Status Every Day BSA 1.53 m??? Medications: Current Outpatient Medications: aspirin 81 mg EC tablet, Take 1 tablet (81 mg) by mouth once daily as directed., Disp: 90 tablet, Rfl: 3 atorvastatin (Lipitor) 40 mg tablet, Take 1 tablet (40 mg) by mouth at bedtime for 360 doses., Disp: 90 tablet, Rfl: 3 carbidopa-levodopa (Sinemet) 25-100 mg tablet, Take 1.5 tablets by mouth in the morning, at noon, in the evening, and at bedtime., Disp: , Rfl: clopidogrel (Plavix) 75 mg tablet, Take 1 tablet (75 mg) by mouth once daily as directed., Disp: 90 tablet, Rfl: 3 cyanocobalamin (Vitamin B-12) 1,000 mcg tablet, Take 1,000 mcg by mouth in the morning., Disp: , Rfl: dapagliflozin propanediol (Farxiga) 10 mg, Take 1 tablet (10 mg) by mouth once daily as directed for 360 doses., Disp: 90 tablet, Rfl: 3 HYDROcodone-acetaminophen (Mentone) 10-325 mg tablet, Take 1 tablet by mouth every 8 (eight) hours., Disp: , Rfl: lisinopril 5 mg tablet, Take 1 tablet (5 mg) by mouth once daily as directed., Disp: 90 tablet, Rfl: 3 metFORMIN XR (Glucophage-XR) 750 mg 24 hr tablet, Take 500 mg by mouth with breakfast., Disp: , Rfl: metoprolol succinate XL (Toprol-XL) 25 mg 24 hr tablet, Take 1 tablet (25 mg) by mouth in the morning. Do not crush or chew., Disp: 90 tablet, Rfl: 3 oxybutynin XL (Ditropan-XL) 10 mg 24 hr tablet, Take 10 mg by mouth in the morning., Disp: , Rfl: p (more content not included)...[facility]09-12-2024 History of Present illness Narrative* Villa Nicolas MD - 12/06/2023 1:00 PM EDT Images from the original note were not included. HPI Follow-up Additional comments: [facility] ER 11/30/23 dx: fall head injury,right hand fracture discharged home-she is setting up ortho appt Last edited by Makenzie Sneed LPN on 12/06/2023 12:57 PM. Subjective Patient ID: Mirna Quezada is a 72 y.o. female who presents for pain med follow up, Follow-up ([facility] ER 11/30/23 dx: fall head injury,right hand fracture discharged home-she is setting up ortho appt), and discuss increasing antidepressant. Flowsheet Row Patient Outreach from 12/05/2023 in [facility] with Montse Celestin RN Hospital Information Discharged To: Home Setting Discharge Hospital [facility] [er visit] Diagnosis Fall, head injury, laceration of nose, contusion of both tibias, hand fracture right Discharge Date 11/30/23 Engagement Admission Date 11/30/23 Medications Discharge medications reviewed and reconciled from hospital? Not applicable Appointments Does the patient have a primary care provider? Yes [12/05 at 1 pm] Self Management Patient Teaching Wrap Up Wrap Up Additional Comments Pt presented to er due to fall at home, hit face and legs. Testing at ER labs, CT Cervical spine, head CT, XR tibia/fibula, hand XR right. Splint for right hand. Pt would like to discuss increasing citalopram ayala not feel her depression is contolled on this dose Current Outpatient Medications on File Prior to Visit Medication Sig Dispense Refill aspirin 81 MG EC tablet Take 1 tablet (81 mg) by mouth in the morning. 100 tablet 3 atorvastatin (Lipitor) 40 MG tablet TAKE 1 TABLET BY MOUTH IN THE MORNING 100 tablet 3 carbidopa-levodopa (Sinemet) 25-100 MG tablet Take 1.5 tablets by mouth in the morning and 1.5 tablets at noon and 1.5 tablets in the evening and 1.5 tablets before bedtime. 180 tablet 2 clopidogrel (Plavix) 75 MG tablet TAKE 1 TABLET BY MOUTH ONCE DAILY 30 tablet 10 cyanocobalamin (Vitamin B-12) 1000 MCG tablet Take 1,000 mcg by mouth in the morning. entacapone (Comtan) 200 MG tablet Take 200 mg by mouth in the morning and 200 mg at noon and 200 mgin the evening and 200 mg before bedtime. Farxiga 10 MG Take 10 mg by mouth Daily HYDROcodone-acetaminophen (Mentone) 10-325 MG tablet Take 1 tablet by mouth every 8 (eight) hours 90 tablet 0 lisinopril 5 MG tablet Take 5 mg by mouth in the morning. metFORMIN XR (Glucophage-XR) 750 MG 24 hr tablet Take 1 tablet (750 mg) by mouth in the evening. Take with meals. Do not crush, chew, or split. 100 tablet 3 metoprolol succinate XL (Toprol-XL) 25 MG 24 hr tablet Take 25 mg by mouth in the morning. nitroglycerin (Nitrostat) 0.[address] 0.4 mg under the tongue every 5 (five) minutes if needed. nystatin (Mycostatin) 838487 UNIT/GM powder every 12 (twelve) hours. oxybutynin XL (Ditropan-XL) 10 MG 24 hr tablet TAKE 1 TABLET BY MOUTH EVERY MORNING 30 tablet 10 pregabalin (Lyrica) 150 MG capsule Take 1 capsule (150 mg) by mouth in the morning and 1 capsule (150 mg) in the evening and 1 capsule (150 mg) before bedtime. 90 capsule 2 primidone (Mysoline) 250 MG tablet Take 1 tablet (250 mg) by mouth at bedtime 30 tablet 2 tiZANidine (Zanaflex) 4 MG tablet TAKE 1 TABLET BY MOUTH EVERY 6 HOURS IF NEEDED FOR MUSCLE SPASMS 30 tablet 10 [DISCONTINUED] citalopram (CeleXA) 40 MG tablet Take 1 tablet (40 mg) by mouth Daily 90 tablet 3 No current facility-administered medications on file prior to visit. I have reviewed and reconciled the history and medication list with the patient today. Allergies Allergen Reactions Amoxicillin-Pot Clavulanate Angioedema Duloxetine Hives Mixed Ragweed Penicillin G Unknown Social History Tobacco Use Smoking status: Every Day Types: Cigarettes Smokeless tobacco: Never Vaping Use Vaping status: Never Used Substance Use Topics Alcohol use: Never Comment: caffeine intake : 2-3 cups per day coffee, soda Drug use: Defer Family History Problem Relation Name Age of Onset Hypertension Mother Heart disease Mother Heart disease Father Cancer Sibling Past Medical History: Diagnosis Date Allergies angina Anxiety Arthritis Carotid artery disease ([facility]) Congestive heart failure (CHF) ([facility]) COVID-19 01/2020 Depression ([facility]) Diabetes mellitus, type 2 ([facility]) Fall 02/21/2020 inability to care for self Gallbladder disease GERD (gastroesophageal reflux disease) Hearing loss of right ear, unspecified hearing loss type History of blood clots History of echocardiogram 02/09/2017 EF >55% History of migraine headaches Hypertension ([facility]) Multifocal pneumonia 04/03/2023 Myocardial infarction ([facility]) Pneumonia 03/29/2023 Past Surgical History: Procedure Laterality Date ANGIOPLASTY CARDIAC CATHETERIZATION 2010 CARPAL TUNNEL RELEASE Left 01/09/2022 Dr. Rodriguez SECTION, CLASSIC 1982 CORONARY ANGIOPLASTY WITH STENT PLACEMENT CORONARY ARTERY BYPASS GRAFT 2000 DILATION AND CURETTAGE ECHOCARDIOGRAM 2014 LUMBAR LAMINECTOMY Bilateral 07/20/2023 L3-L4 TUBAL LIGATION Bilateral 1983 Visit Vitals BP 128/66 Pulse 80 Ht 5' 3 Wt 116 lb SpO2 96% BMI 20.55 kg/m Smoking Status Every Day BSA 1.53 m Review of Systems Objective Physical Exam Constitutional: Appearance: Normal appearance. HENT: Head: Normocephalic and atraumatic. Right Ear: Tympanic membrane, ear canal and external ear normal. Left Ear: Tympanic membrane, ear canal and external ear normal. Nose: Nose normal. Mouth/Throat: Mouth: Mucous membranes are moist. Pharynx: Oropharynx is clear. Eyes: Pupils: Pupils are equal, round, and reactive to light. Cardiovascular: Rate and Rhythm: Normal rate and regular rhythm. Heart sounds: Murmur heard. Decrescendo systolic murmur is present with a grade of 2/6. Pulmonary: Breath sounds: Decreased air movement present. Decreased breath sounds present. Abdominal: General: Bowel sounds are normal. Palpations: Abdomen is soft. Musculoskeletal: General: Normal range of motion. Cervical back: Neck supple. Comments: Fine tremors Skin: General: Skin is warm and dry. Neurological: Mental Status: She is alert and oriented to person, place, and time. Motor: Weakness present. Gait: Gait abnormal. Comments: Tremor. BLE weakness. In a wheelchair, gait not tested. Psychiatric: Mood and Affect: Mood is depressed. Behavior: Behavior normal. Thought Content: Thought content normal. Thought content is not paranoid or delusional. Thought content does not include suicidal ideation. Assessment/Plan Diagnoses and all orders for this visit: Parkinson's disease with dyskinesia and fluctuating manifestations (CMS/HCC) 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/HCC) Polyneuropathy due to type 2 diabetes mellitus (CMS/HCC) HFrEF (heart failure with reduced ejection fraction) (CMS/HCC) Moderate episode of recurrent major depressive disorder (HCC) (CMS/HCC) - Vortioxetine HBr (Trintellix) 10 MG tablet; Take 10 mg by mouth Daily Closed nondisplaced fracture of base of fifth metacarpal bone of right hand, initial encounter Follow up in about 3 weeks (around 12/27/2023) for F/U med changes. documented in this encounterKansas City VA Medical [id number] History of Present illness Narrative* Tamiko Toledo RN - 07/21/2023 2:25 PM EDT Pt discharged to home with belongings via transport. Discharge instructions given. AVS understood. Pt denies having any further questions at this time. Personal items given to patient at discharge Patient/family state they have everything they were admitted with. Personal wheelchair sent home with patient as well. * Tequila Rajan, PT - 07/21/2023 11:12 AM EDT Physical Therapy Facility/Department: [facility] MED SURG Physical Therapy Initial Assessment Name: Mirna Quezada [...] History of coronary artery disease, History of CA (myocardial infarction), Hyperlipidemia, Hypertension, Lumbar disc disorder with myelopathy, CA (myocardial infarction) (HCC), Neuropathy, Parkinson's disease (HCC), PVD (peripheral vascular disease) (HCC), Seasonal allergies, Spinal stenosis, Tinnitus, Tremors of nervoussystem, Under care of service provider, Under care of service provider, Under care of service provid er, Under care of service provider, Under care [...] Needs assistance (assist with shower transfers) Active Publications Designer: No Patient's Publications Designer Info: hearts ambullette 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 Leisure & Hobbies: used to do [employer] Vision/Hearing Vision Vision: Impaired Vision Exceptions: Wears [...] with step to pattern but progressed to reciprocalgait, steady Balance Sitting - Static: Good Sitting - Dynamic: Good Standing - Static: Fair Standing - Dynamic: Fair OutComes Score -[facility] - Mobility [facility] Basic Mobility - Inpatient How much help is needed turning from your back to your side while in a flat bed without using bedrails?: None How much help is needed moving from lying on your back to sitting on the side of a flat bed withoutusing bedrails?: None How much help is needed moving to and from a bed to a chair?: A Little How much help is needed standing up from a chair using your arms?: A Little How much help is needed walking in hospital room?: A Little How much help is needed climbing 3-5 steps with a railing?: A Little [facility] Inpatient Mobility Raw Score : 20 [facility] Inpatient T-Scale Score : 47.67 Mobility Inpatient [facility] 0-100% Score: 35.83 Mobility Inpatient [facility] G-Code Modifier : CJ Tinneti Score Goals [...] Time Individual Concurrent Group Co-treatment Time In 47 Time Out 0815 (additional 10 minutes for chart review) Minutes 28+10=38 Treatment time: 24 minutes Tequila Rajan PT * Merary Bocanegra, OT - 07/21/2023 10:24 AM EDT Occupational Therapy Facility/Department: [facility] Occupational Therapy Initial Assessment Name: Mirna Quezada [...] time of discharge. Please refer to the AM-PAC score for current functional status. KYLE Morrison [...] History of coronary artery disease, History of CA (myocardial infarction), Hyperlipidemia, Hypertension, Lumbar disc disorder with myelopathy, CA (myocardial infarction) (HCC), Neuropathy, Parkinson's disease (HCC), PVD (peripheral vascular disease) ([facility]), Seasonal allergies, Spinal stenosis, Tinnitus, Tremors of nervoussystem, Under care of service provider, Under care of service provider, Under care of service provid er, Under care of service provider, Under care [...] activity tolerance, spinal precautions, and dec strength. SkilledOT is indicated to increase overall IND and safety with self-care and functional tasks to return toPLOF. Prognosis: Good Decision Making: Medium Complexity REQUIRES [...] Needs assistance (assist with shower transfers) Active Publications Designer: No Patient's Publications Designer Info: hearts ambullette Occupation: Retired Type of [...] Interventions: Verbal cues;Safety awareness training;Tactile cues;Weight shifting training/pressurerelief (Min cues for proper hand placement on [...] demo'd functional mob from bedside to doorway, andto bedside chair with RW. No LOB noted. Pt reporting slight dizziness. Min cues for upright posture, pacing, pursed lip breathing, RW safety/mgmt, and assist with lines. Additional Comments: self-care is limited d/t spinal precautions, dec activity tolerance, pain, andweakness. Vision Vision: Impaired Vision Exceptions: Wears glasses [...] Method: Verbal;Demonstration Education Outcome: Continued education needed AM-[facility] - ADL AM-[facility] Daily Activity - Inpatient How much help [...] How much help for eating meals?: None [facility] Inpatient Daily [facility] T-Scale Score : 37.26 ADL Inpatient [facility] 0-100% Score: 50.11 ADL Inpatient [facility] G-Code Modifier : CK Goals Short Term Goals Time Frame for Short Term Goals: by discharge, pt to demo Short Term Goal 1: I/CA for bed mob with proper log roll tech Short Term Goal 2: I/CA for ADL transfers and functional mob with AD as needed and Good safety Short Term Goal 3: I/CA for total body ADLs with AE as needed and Good safety Short Term Goal 4: I/CA for toileting routine with BSC/AD as needed Short Term Goal 5: pt/family to be IND with EC/WS, fall prevention tech, pressure relief education,disease specific education, spinal precautions, discharge recommendations, AE/DME recommendations, with use of handouts as needed Patient Goals Patient goals : to go home Therapy Time Individual Concurrent Group Co-treatment Time In 0807 Time Out 0836 (+10 chart review) Minutes 39 Tx time: 23 min Upon verse writer exit, call light within reach, pt retired to chair. All lines intact and patient positioned comfortably. All patient needs addressed prior to ending therapy session. Chart reviewed prior to treatment and patient is agreeable for therapy. RN reports patient is medically stable for therapy treatment this date. Merary Bocanegra OTR/L * Barb Beyer PA - 07/21/2023 8:16 AM EDT 07/21/2023 8:16 AM Mirna Quezada 1950 [id number] SUBJECTIVE: Uneventful PM per nursing, pt doing [...] Patient seen and examined with Dr Webster * Tamiko Toledo RN - 07/20/2023 4:23 PM EDT Pt admitted to room 2106 from PACU Patient alert an oriented x4 Oriented to room and call light/tv controls. Bed in lowest position, wheels locked, 2/4 side rails up Call light in reach, room free of clutter, adequate lighting provided. [facility] Discharge instructions* Discharge Instructions* Tamiko Toledo RN - 07/20/2023 10:05 AM [...] best possible recovery after your surgical procedure. [facility] is here to support you. If you have questions, call [phone] Sunday through Sunday from 7:30AM to 8:30PM to speak to a nurse. If you need to speak to someone outside of these hours, call your physician. Incision Do s and Don ts Do wash hands before and after dressing changes or when you have had any contact with your incision. Use hand infectious waste technician or antibacterial soap. Do keep your incision [...] your healthcare provider. These are needed to checkhow well you re healing. Your drain, stitches, [...] to your discharge paperwork for further instructions * Attachments The following attachments cannot be sent through Care Everywhere. * Lumbar Laminectomy: Post-op ([place]) * Constipation ([place]) * DVT (Deep Vein Thrombosis): General Info ([place]) * Smoking Cessation: Health Benefits: General Info ([place]) * Diabetes: Type 2 ([place]) * tizanidine ([place]) * Hydrocodone/Acetaminophen Oral Tablet (HYDROCODONE/ACETAMINOPHEN - ORAL) ([place]) documented in [facility] History of Present illness Narrative* Vaishnavi Levy APRN - JAD - 05/24/2023 1:00 PM EST PAT Progress Note Pt Name: Mirna Quezada [...] has known cardiomyopathy, aortic stenosis, CAD s/p CA and CABG x1 in 2000, heart failure, [...] demand mismatch in setting of acute heart fail ure exacerbation and pneumonia. No need for further [...] air flow. No wheezing, rales or rhonchi, andnormal effort. Cardiovascular: Grade II/ systolic murmur Normal rate, regular rhythm, no gallop, or rub. Abdomen: Soft, nontender, nondistended, and active bowel sounds. Neuro: Tardive dyskinesia-like symptoms with tongue thrusting. Known Parkinson's disease. Tremors to bilateral upper extremities. Ambulating via wheelchair. Past Medical History: Past Medical History: Diagnosis Date Abnormal gait CAD (coronary artery disease) Carpal tunnel syndrome left Cervical myelopathy ([facility]) COVID 01/2020 hospitalized then rehab Depression on Celexa, daughter recently Diabetes ([facility]) checks blood sugar at home,averages 130-140, managed by Dr Nicolas Disc degeneration, lumbar Foot drop, left foot usually uses a walker Hearing loss History of blood transfusion during CABG History of coronary artery disease History of CA (myocardial infarction) 1998 initially treated with Stents then had CABG in 2000 Hyperlipidemia Hypertension managed by Dr Nicolas Lumbar disc disorder with myelopathy CA (myocardial infarction) ([facility]) 04/03/2023 Pt states that they thought I was having a heart attack, but the testing was negative. Neuropathy Seasonal allergies Spinal stenosis Tinnitus Tremors of nervous system patient doesn't know the medical diagnosis but said she was told it's very close to Parkinson's Under care of service provider 02/02/2023 pcp-[facility] [place]-last visit dec 2022 Under care of service provider 02/02/2023 [id number]-fzfyqrmie [facility] - due to visit jan 2023 Under care of service provider 02/02/2023 [id number]-[id number] [place]-last visit dec 2022 Under care of service provider 02/02/2023 [id number]-last visit oct 2022 Under care of [...] CORONARY ARTERY BYPASS GRAFT 2000 done at [facility] SPINAL FUSION L4-5, S1 Medications Prior to [...] in the morning, at noon, and at bedtime.04/30/14 Del Reilly MD nitroGLYCERIN (NITROSTAT) 0.[address] 1 tablet under the tongue every 5 minutes as needed for Chest pain Max dose of 5 tablets 09/04/11 Del Reilly MD nystatin (MYCOSTATIN) 624277 UNIT/GM powder Apply 1 application topically in [...] Take 1 tablet by mouth every morning 09/13/22Del Reilly MD citalopram (CELEXA) 40 MG tablet [...] 05/24/2023 at 2:08 PM documented in this encounterB[facility] Note [id number]10-17-2022 [facility] SURGERY Clinical Discharge Summary PERSON INFORMATION Name MIRNA QUEZADA Age 71 Years 1950 Sex FEMALE Language Montserr[place]ian PCP VILLA NICOLAS Marital Status Med Service Ambulatory Surgery N [id number] Acct# Arrival 01/09/2022 12:18:00 Visit Reason SURGERY - LEFT CARPAL TUNNEL RELEASE Acuity LOS 019 06:34 Address: [address] [place] [address] [place] [address] [id number] Comment: PROVIDER INFORMATION VITALS INFORMATION Vital Sign [...] acetate 1% ophthalmic suspension) 12 Drops Both eyes2 times a day for 10 Days. Updated: [...] acetate 1% ophthalmic suspension) 12 Drops Both eyes2 times a day for 10 Days. Updated: [...] - Follow Below Instruc (more content not included)...[id number] NoteProcedure: Decompression of median nerve left wrist with release [...] to proceed with surgery and the patient requestedthe same. Findings: The median nerve was noted [...] wound was irrigated with copious amounts sterile salineand the skin was closed with nylon suture. Adaptic sterile dressings and an Curt bandage were applied with the thumb in apposition Complications: None [Electronically Signed on: 01/09/2022 17:13 EDT] Ambrose Rodriguez DO [Verified on: 01/09/2022 17:13 EDT] Ambrose Rodriguez [facility] HospitalEvaluation note* Diagnosis 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 lumbar disc disorder with myelopathy, lumbar region documented [facility] encounter [facility] noteNo assessment information availableMercy Hospital Work Phone: Evaluation note* Diagnosis Onset Date Resolution Status Carotid stenosis acute Claudication acute [facility] Work Phone: Evaluation note* Diagnosis Spinal stenosis of lumbar region with neurogenic claudication- Primary Spinal stenosis, lumbar region, with neurogenic claudication [facility] Diagnosis Parkinson's disease with dyskinesia and fluctuating manifestations (CMS/HCC)- Primary Recurrent major depressive disorder, in full remission (CMS/HCC) 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 lumbar disc disorder with myelopathy, lumbar region [facility]* Diagnosis Parkinson's plus syndrome (CMS/HCC)- Primary Cervical dystonia Spasmodic torticollis Cervical myelopathy (CMS/HCC) Cervical spondylosis with myelopathy Cognitive impairment Unspecified persistent mental disorders due to conditions classified elsewhere Medication monitoring encounter Encounter for therapeutic drug monitoring Neuropathy Mononeuritis of unspecified site Pain Generalized pain documented in this encounter [facility]* Diagnosis Parkinson's disease with dyskinesia and fluctuating manifestations (CMS/HCC)- Primary 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/HCC) Polyneuropathy due to type 2 diabetes mellitus (CMS/HCC) HFrEF (heart failure with reduced ejection fraction) (CMS/HCC) Moderate episode of recurrent major depressive disorder (HCC) (CMS/HCC) Closed nondisplaced fracture of base of fifth metacarpal bone of right hand, initial encounter documented in this encounter [facility]* Diagnosis 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 lumbar disc disorder with myelopathy, lumbar region documented in this encounter [facility]* Diagnosis 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 lumbar disc disorder with myelopathy, lumbar region Mixed anxiety depressive disorder documented in this encounter [facility]* Diagnosis Pain Generalized pain documented in this encounter [facility]* Diagnosis Pain Generalized pain [facility]* Diagnosis 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 lumbar disc disorder with myelopathy, lumbar region Polyneuropathy due to type 2 diabetes mellitus (CMS/HCC)- Primary Pain due to onychomycosis of toenails of both feet Left foot drop Other acquired deformity of ankle and foot [facility]* Diagnosis Cellulitis of left foot- Primary Pain due to onychomycosis of toenails of both feet Left foot drop Other acquired deformity of ankle and foot Polyneuropathy due to type 2 diabetes mellitus ([facility]) PVD (peripheral vascular disease) ([facility]) Unspecified peripheral vascular disease [facility]* Diagnosis Cellulitis of left foot- Primary documented in this [facility]* Diagnosis 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 lumbar disc disorder with myelopathy, lumbar region documented [facility]* Diagnosis Pain Generalized pain documented [facility]* Diagnosis Parkinson's disease, unspecified whether dyskinesia present, unspecified whether manifestations fluctuate ([facility]) documented in this encounter [facility]* Diagnosis PAD (peripheral artery disease) ([facility])- Primary Unspecified peripheral vascular disease HFrEF (heart failure with reduced ejection fraction) ([facility]) General weakness Other malaise and fatigue Polyneuropathy due to type 2 diabetes mellitus ([facility]) Ischemic foot ulcer due to atherosclerosis of three affiliated artery of limb ([facility]) Other generalized epilepsy and epileptic syndromes, not intractable, without status epilepticus ([facility]) Inflammatory polyarthropathy ([facility]) Unspecified inflammatory polyarthropathy Disease of spinal cord, unspecified Tobacco abuse Tobacco use disorder [facility]* Diagnosis 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 lumbar disc disorder with myelopathy, lumbar region documented [facility]* Diagnosis 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 lumbar disc disorder with myelopathy, lumbar region Cellulitis of left foot- Primary PVD (peripheral vascular disease) ([facility]) Unspecified peripheral vascular disease Polyneuropathy due to type 2 diabetes mellitus ([facility]) Pain due to onychomycosis of toenails of both feet Left foot drop Other acquired deformity of ankle and foot documented [facility]* Diagnosis Parkinsonism, unspecified Parkinsonism type ([facility])- Primary Lumbar radiculopathy Thoracic or lumbosacral neuritis or radiculitis, unspecified Cervical dystonia Spasmodic torticollis Polyneuropathy due to type 2 diabetes mellitus ([facility]) Cognitive impairment Unspecified persistent mental disorders due to conditions classified elsewhere Medication monitoring encounter Encounter for therapeutic drug monitoring Cervical myelopathy ([facility]) Cervical spondylosis with myelopathy documented [facility]* Diagnosis 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 lumbar disc disorder with myelopathy, lumbar region documented [facility]* Diagnosis PAD (peripheral artery disease) Unspecified peripheral vascular disease HFrEF (heart failure with reduced ejection fraction) ([facility]) Muscle weakness Muscle weakness (generalized) 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 lumbar disc disorder with myelopathy, lumbar region documented [facility]* Diagnosis Cellulitis of left foot- Primary Polyneuropathy due to type 2 diabetes mellitus ([facility]) Pain due to onychomycosis of toenails of both feet Left foot drop Other acquired deformity of ankle and foot Foot ulcer, left, with fat layer exposed ([facility]) documented [facility]* Diagnosis Cellulitis of left foot- Primary 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) Foot ulcer, left, with fat layer exposed (HCC) PVD (peripheral vascular disease) Unspecified peripheral vascular disease Left foot drop Other acquired deformity of ankle and foot documented [facility]* Diagnosis Cellulitis of left foot- Primary 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) Foot ulcer, left, with fat layer exposed (HCC) PVD (peripheral vascular disease) Unspecified peripheral vascular disease Left foot drop Other acquired deformity of ankle and foot documented [facility]* Diagnosis 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 lumbar disc disorder with myelopathy, lumbar region documented [facility]* Diagnosis Cellulitis of left foot- Primary 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) Foot ulcer, left, with fat layer exposed (HCC) PVD (peripheral vascular disease) Unspecified peripheral vascular disease Left foot drop Other acquired deformity of ankle and foot [facility]* Diagnosis Cellulitis of left foot- Primary 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) Foot ulcer, left, with fat layer exposed (HCC) PVD (peripheral vascular disease) Unspecified peripheral vascular disease Left foot drop Other acquired deformity of ankle and foot [facility] encounter [facility]* Diagnosis Cellulitis of left foot- Primary Foot ulcer, left, with fat layer exposed (HCC) 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) Left foot drop Other acquired deformity of ankle and foot PVD (peripheral vascular disease) Unspecified peripheral vascular disease documented in this encounter [facility]* Diagnosis Type II diabetes mellitus with manifestations (HCC) Type II or unspecified type diabetes mellitus with other specified manifestations, not stated as uncontrolled 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)- Primary Foot ulcer, left, with fat layer exposed (HCC) PVD (peripheral vascular disease) Unspecified peripheral vascular disease documented in this encounter [facility]* Diagnosis 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 lumbar disc disorder with myelopathy, lumbar region 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)- Primary Foot ulcer, left, with fat layer exposed (HCC) PVD (peripheral vascular disease) Unspecified peripheral vascular disease documented in this encounter [facility]* Diagnosis 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)- Primary Foot ulcer, left, with fat layer exposed (HCC) PVD (peripheral vascular disease) Unspecified peripheral vascular disease PVD (peripheral vascular disease)- Primary Unspecified peripheral vascular disease Foot ulcer, left, with fat layer exposed (HCC) 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) Left foot drop Other acquired deformity of ankle and foot documented in this encounter [facility]* Diagnosis Routine general medical examination at health care facility- Primary Routine general medical examination at a health care facility ACP (advance care planning) Other specified counseling HFrEF (heart failure with reduced ejection fraction) (HCC) Dependent on wheelchair Wheelchair dependence 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 lumbar disc disorder with myelopathy, lumbar region Controlled type 2 diabetes mellitus with complication, without long-term current use of insulin (HCC) Coronary artery disease involving three affiliated coronary artery of three affiliated heart without angina pectoris Mixed hyperlipidemia Mixed hyperlipidemia documented in this encounter [facility]* Diagnosis 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)- Primary PVD (peripheral vascular disease) Unspecified peripheral vascular disease Foot ulcer, left, with fat layer exposed (HCC) documented [facility] this encounter [facility] HealthcareHistory [facility] Present illness Narrative* Fortunato Choi, DPM - 09/18/2024 2:20 PM EDT Patient: Mirna Quezada : 1950 PCP: Villa Nicolas MD SUBJECTIVE This is a 73 y.o. female that presents today with a CC of elongated, thick nails. Pt states nails have been elongated and thick for many years and cause pain with ambulation in shoegear. Pt has tried previous treatment with minimal relief. Pt presents today for nail care and treatment. Pt bends today with peripheral neuropathy Pt has AFO for left dropfoot and was to receive AFO Patient also states that she has had lesion with cellulitis to her left 2nd toe and has finished oral abx from last visit and states increased swelling and now ulcer to the left 2nd toe Patient denies n/f/v/c. Allergies: Allergies Allergen Reactions Amoxicillin-Pot Clavulanate Angioedema [...] by mouth Daily, Disp: , Rfl: HYDROcodone-acetaminophen (Mentone) 10-325 MG tablet, Take 1 tablet by mouth every 6 (six) hours if needed for severe pain, Disp: 120 tablet, Rfl: 0 isosorbide mononitrate ER (Imdur) 30 MG 24 hr tablet, Take 30 mg by mouth Daily, Disp: , Rfl: lisinopril 5 MG tablet, Take 5 mg by mouth in the morning., Disp: , Rfl: metFORMIN XR (Glucophage-XR) 750 MG 24 hr tablet, TAKE 1 TABLET BY MOUTH EVERY EVENING WITH MEALS, Disp: 30 tablet, Rfl: 10 metoprolol succinate XL (Toprol-XL) 25 MG 24 hr tablet, Take 25 mg by mouth in the morning., Disp: , Rfl: nitroglycerin (Nitrostat) 0.4 MG SL tablet, Place 0.4 mg under the tongue every 5 (five) minutes ifneeded., Disp: , Rfl: nystatin (Mycostatin) [id number] UNIT/GM powder, every 12 (twelve) hours., Disp: [...] file Tobacco Use Smoking status: Every Day Types: Cigarettes Smokeless tobacco: Never Vaping Use Vaping status: Never Used Substance and Sexual Activity Alcohol use: Never Comment: caffeine intake : 2-3 cups per day coffee, soda Drug use: Defer Sexual activity: Defer Other Topics Concern Not on file Social History Narrative Not on file Social Drivers of Health Financial Resource Strain: Medium Risk (07/26/2023) Received from [facility] Overall Financial Resource Strain (CARDIA) Difficulty of Paying Living Expenses: Somewhat hard Food Insecurity: Food Insecurity Present (07/26/2023) Received from [facility] Hunger Vital Sign Within the past 12 months, you worried that your food would run out before you got the money to buymore.: Sometimes true Ran Out of Food in the Last Year: Not on file Transportation Needs: No Transportation Needs (07/26/2023) Received from [facility] Transportation In the past 12 months, has lack of transportation kept you from medical appointments or from getting medications?: No Lack of Transportation (Non-Medical): Not on file Physical Activity: Not on file Stress: Not on file Social Connections: Not on file Intimate Partner Violence: Unknown (07/26/2023) Received from [facility] Humiliation, Afraid, Rape, and Kick questionnaire Fear of Current or Ex-Partner: No Emotionally Abused: Not on file Physically Abused: Not on file Sexually Abused: Not on file Housing Stability: Low Risk (07/26/2023) Received from [facility] Housing Stability Vital Sign Unable to Pay [...] PIPJ region has increased edema with notable 0.5 cm x 0.5 cm 0.2 cm subcutaneous thickness depth ulceration with slight erythema surrounding wound and fibrous slough with negative probe to bone VASC: positive DP and negative PT pedal pulses. Warm to cool tibia to toes bilaterally NEURO: 5.07 Brohman Chago monofilament test intact to digits and forefoot bilaterally 125Hz tuning fork diminished to 1st MPJ bilaterally ORTHO: Positive pain on palpation to toenails of the left 1,2,3,4,5 toes and right 1,2,3,4,5 toes Foot +0 /5 DF of the left foot Positive pain on palpation left 2nd toe ulcer site ASSESSMENT 1. Cellulitis of left foot 2. 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) 3. Pain due to onychomycosis of toenails of both feet 4. Left foot drop 5. Foot ulcer, left, with fat layer exposed (HCC) PLAN Discussed proper foot care with patient today. Debride nails in length and thickness digits 1 through 10 Continue with AFO Prescription for oral antibiotics Sharp debridement with 15 blade of subcutaneous ulceration to left foot with active bleeding noted and removal and excision of fibrotic and necrotic tissue to wound and DSD applied with neosporin. Ptto continue with Betadine daily and home health to apply Betadine with dry sterile dressing daily to the left 2nd toe Fortunato Choi DPM documented in this encounterNOMS HealthcareHistory of Present illness Narrative * Fortunato Choi DPM - 10/09/2024 1:20 PM EDT Patient: Mirna Quezada : 1950 PCP: Villa Nicolas MD SUBJECTIVE Pt present today for follow up of ulceration to left foot. Pt denies any n/f/v/c. Patient states that they have been using the following treatments for the ulcer of betadine Pt is a DM2. Patient also states that she has had lesion with cellulitis to her left 2nd toe and has been taking oral abx from last visit and states diminished swelling with ulcer to the left 2nd toe Patient denies n/f/v/c. Allergies: Allergies Allergen Reactions Amoxicillin-Pot Clavulanate Angioedema Duloxetine Hives Mixed Ragweed Penicillin G Unknown Past Medical History: Past Medical History: Diagnosis Date Allergies angina Anxiety Arthritis Carotid artery disease Congestive heart failure (CHF) ([facility]) COVID-19 01/2020 Depression Diabetes mellitus, type 2 ([facility]) Fall 02/21/2020 inability to care for self Gallbladder disease GERD (gastroesophageal reflux disease) Hearing loss of right ear, unspecified hearing loss type History of blood clots History of echocardiogram 02/09/2017 EF >55% History of migraine headaches Hypertension Multifocal pneumonia 04/03/2023 Myocardial infarction ([facility]) Pneumonia 03/29/2023 Medications: Current Outpatient Medications: amantadine [...] mcg by mouth Daily, Disp: , Rfl: Farxiga 10 MG, Take 10 mg by mouth Daily, Disp: , Rfl: HYDROcodone-acetaminophen (Mentone) 10-325 MG tablet, Take 1 tablet by mouth every 6 (six) hours if needed for severe pain, Disp: 120 tablet, Rfl: 0 isosorbide mononitrate ER (Imdur) 30 MG 24 hr tablet, Take 30 mg by mouth Daily, Disp: , Rfl: lisinopril 5 MG tablet, Take 5 mg by mouth in the morning., Disp: , Rfl: metFORMIN XR (Glucophage-XR) 750 MG 24 hr tablet, TAKE 1 TABLET BY MOUTH EVERY EVENING WITH MEALS, Disp: 30 tablet, Rfl: 10 metoprolol succinate XL (Toprol-XL) 25 MG 24 hr tablet, Take 25 mg by mouth in the morning., Disp: , Rfl: nitroglycerin (Nitrostat) 0.4 MG SL tablet, Place 0.4 mg under the tongue every 5 (five) minutes ifneeded., Disp: , Rfl: nystatin (Mycostatin) [id number] UNIT/GM powder, every 12 (twelve) hours., Disp: [...] file Tobacco Use Smoking status: Every Day Types: Cigarettes Smokeless tobacco: Never Vaping Use Vaping status: Never Used Substance and Sexual Activity Alcohol use: Never Comment: caffeine intake : 2-3 cups per day coffee, soda Drug use: Defer Sexual activity: Defer Other Topics Concern Not on file Social History Narrative Not on file Social Drivers of Health Financial Resource Strain: Medium Risk (07/26/2023) Received from [facility] Overall Financial Resource Strain (CARDIA) Difficulty of Paying Living Expenses: Somewhat hard Food Insecurity: Food Insecurity Present (07/26/2023) Received from [facility] Hunger Vital Sign Within the past 12 months, you worried that your food would run out before you got the money to buymore.: Sometimes true Ran Out of Food in the Last Year: Not on file Transportation Needs: No Transportation Needs (07/26/2023) Received from [facility] Transportation In the past 12 months, has lack of transportation kept you from medical appointments or from getting medications?: No Lack of Transportation (Non-Medical): Not on file Physical Activity: Not on file Stress: Not on file Social Connections: Not on file Intimate Partner Violence: Unknown (07/26/2023) Received from [facility] Humiliation, Afraid, Rape, and Kick questionnaire Fear of Current or Ex-Partner: No Emotionally Abused: Not on file Physically Abused: Not on file Sexually Abused: Not on file Housing Stability: Low Risk (07/26/2023) Received from [facility] Housing Stability Vital Sign Unable to Pay [...] PIPJ region has increased edema with notable 0.5 cm x 0.5 cm 0.2 cm subcutaneous thickness depth ulceration with greatly diminished erythema surrounding wound and fibrous slough with negative probe to bone VASC: positive DP and negative PT pedal pulses. Warm to cool tibia to toes bilaterally NEURO: 5.07 Brohman Chago monofilament test intact to digits and forefoot bilaterally 125Hz tuning fork diminished to 1st MPJ bilaterally ORTHO: Positive pain on palpation to toenails of the left 1,2,3,4,5 toes and right 1,2,3,4,5 toes Foot +0 /5 DF of the left foot Positive pain on palpation left 2nd toe ulcer site ASSESSMENT 1. 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 Foot ulcer, left, with fat layer exposed (HCC) 3. PVD (peripheral vascular disease) 4. Left foot drop PLAN Continue with AFO Prescription for Medihoney today if available until applied daily by aid Sharp debridement with 15 blade of subcutaneous ulceration to left foot with active bleeding noted and removal and excision of fibrotic and necrotic tissue to wound and DSD applied with neosporin. Ptto continue with Betadine daily and home health to apply Betadine with dry sterile dressing daily to the left 2nd toe Fortunato Choi DPM documented in this encounterNOMS HealthcareHistory of Present illness Narrative * Fortunato Choi DPM - 10/16/2024 1:50 PM EDT Patient: Mirna Quezada : 1950 PCP: Villa Nicolas MD SUBJECTIVE Pt present today for follow up of ulceration to left foot. Pt denies any n/f/v/c. Patient states that they have been using the following treatments for the ulcer of betadine Pt is a DM2. Patient also states that she has had lesion with cellulitis to her left 2nd toe and has been taking oral abx from last visit and states diminished swelling with ulcer to the left 2nd toe Patient denies n/f/v/c. Allergies: Allergies Allergen Reactions Amoxicillin-Pot Clavulanate Angioedema Duloxetine Hives Mixed Ragweed Penicillin G Unknown Past Medical History: Past Medical History: Diagnosis Date Allergies angina Anxiety Arthritis Carotid artery disease Congestive heart failure (CHF) (HCC) COVID-19 01/2020 Depression Diabetes mellitus, type 2 ([facility]) Fall 02/21/2020 inability to care for self [...] by mouth Daily, Disp: , Rfl: HYDROcodone-acetaminophen (Mentone) 10-325 MG tablet, Take 1 tablet by mouth every 6 (six) hours if needed for severe pain, Disp: 120 tablet, Rfl: 0 isosorbide mononitrate ER (Imdur) 30 MG 24 hr tablet, Take 30 mg by mouth Daily, Disp: , Rfl: lisinopril 5 MG tablet, Take 5 mg by mouth in the morning., Disp: , Rfl: metFORMIN XR (Glucophage-XR) 750 MG 24 hr tablet, TAKE 1 TABLET BY MOUTH EVERY EVENING WITH MEALS, Disp: 30 tablet, Rfl: 10 metoprolol succinate XL (Toprol-XL) 25 MG 24 hr tablet, Take 25 mg by mouth in the morning., Disp: , Rfl: nitroglycerin (Nitrostat) 0.4 MG SL tablet, Place 0.4 mg under the tongue every 5 (five) minutes ifneeded., Disp: , Rfl: nystatin (Mycostatin) [id number] UNIT/GM powder, every 12 (twelve) hours., Disp: [...] file Tobacco Use Smoking status: Every Day Types: Cigarettes Smokeless tobacco: Never Vaping Use Vaping status: Never Used Substance and Sexual Activity Alcohol use: Never Comment: caffeine intake : 2-3 cups per day coffee, soda Drug use: Defer Sexual activity: Defer Other Topics Concern Not on file Social History Narrative Not on file Social Drivers of Health Financial Resource Strain: Medium Risk (07/26/2023) Received from [facility] Overall Financial Resource Strain (CARDIA) Difficulty of Paying Living Expenses: Somewhat hard Food Insecurity: Food Insecurity Present (07/26/2023) Received from [facility] Hunger Vital Sign Within the past 12 months, you worried that your food would run out before you got the money to buymore.: Sometimes true Ran Out of Food in the Last Year: Not on file Transportation Needs: No Transportation Needs (07/26/2023) Received from [facility] Transportation In the past 12 months, has lack of transportation kept you from medical appointments or from getting medications?: No Lack of Transportation (Non-Medical): Not on file Physical Activity: Not on file Stress: Not on file Social Connections: Not on file Intimate Partner Violence: Unknown (07/26/2023) Received from [facility] Humiliation, Afraid, Rape, and Kick questionnaire Fear of Current or Ex-Partner: No Emotionally Abused: Not on file Physically Abused: Not on file Sexually Abused: Not on file Housing Stability: Low Risk (07/26/2023) Received from [facility] Housing Stability Vital Sign Unable to Pay [...] PIPJ region has increased edema with notable 0.4 cm x 0.5 cm 0.2 cm subcutaneous thickness depth ulceration with greatly diminished erythema surrounding wound and fibrous slough with negative probe to bone VASC: positive DP and negative PT pedal pulses. Warm to cool tibia to toes bilaterally NEURO: 5.07 Brohman Chago monofilament test intact to digits and forefoot bilaterally 125Hz tuning fork diminished to 1st MPJ bilaterally ORTHO: Positive pain on palpation to toenails of the left 1,2,3,4,5 toes and right 1,2,3,4,5 toes Foot +0 /5 DF of the left foot Positive pain on palpation left 2nd toe ulcer site ASSESSMENT 1. Cellulitis of left foot 2. 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) 3. Foot ulcer, left, with fat layer exposed (HCC) 4. PVD (peripheral vascular disease) 5. Left foot drop PLAN Continue with AFO Patient to use Medihoney daily to area of ulceration Sharp debridement with 15 blade of subcutaneous ulceration to left foot with active bleeding noted and removal and excision of fibrotic and necrotic tissue to wound and DSD applied with neosporin. Ptto continue with Betadine daily and home health to apply Medihoney with dry sterile dressing daily to the left 2nd toe Fortunato A Brown, DPM documented in this encounterNOPR HealthcareHistory of Present illness Narrative * Fortunato Choi DPM - 10/23/2024 1:30 PM EDT Patient: Mirna Quezada : 1950 PCP: Villa Nicolas MD SUBJECTIVE Pt present today for follow up of ulceration to left foot. Pt denies any n/f/v/c. Patient states that they have been using the following treatments for the ulcer of [facility] Pt is a DM2. Patient also had cellulitis left 2nd toe in the past with antibiotics . Patient statespain to the left 2nd toe Patient denies n/f/v/c. Allergies: Allergies Allergen Reactions Amoxicillin-Pot Clavulanate Angioedema Duloxetine Hives Mixed Ragweed Penicillin G Unknown Past Medical History: Past Medical History: Diagnosis Date Allergies angina Anxiety Arthritis Carotid artery disease Congestive heart failure (CHF) ([facility]) COVID-19 01/2020 Depression Diabetes mellitus, type 2 ([facility]) Fall 02/21/2020 inability to care for self [...] by mouth Daily, Disp: , Rfl: HYDROcodone-acetaminophen (Mentone) 10-325 MG tablet, Take 1 tablet by mouth every 6 (six) hours if needed for severe pain, Disp: 120 tablet, Rfl: 0 isosorbide mononitrate ER (Imdur) 30 MG 24 hr tablet, Take 30 mg by mouth Daily, Disp: , Rfl: lisinopril 5 MG tablet, Take 5 mg by mouth in the morning., Disp: , Rfl: metFORMIN XR (Glucophage-XR) 750 MG 24 hr tablet, TAKE 1 TABLET BY MOUTH EVERY EVENING WITH MEALS, Disp: 30 tablet, Rfl: 10 metoprolol succinate XL (Toprol-XL) 25 MG 24 hr tablet, Take 25 mg by mouth in the morning., Disp: , Rfl: nitroglycerin (Nitrostat) 0.4 MG SL tablet, Place 0.4 mg under the tongue every 5 (five) minutes ifneeded., Disp: , Rfl: nystatin (Mycostatin) [id number] UNIT/GM powder, every 12 (twelve) hours., Disp: [...] file Tobacco Use Smoking status: Every Day Types: Cigarettes Smokeless tobacco: Never Vaping Use Vaping status: Never Used Substance and Sexual Activity Alcohol use: Never Comment: caffeine intake : 2-3 cups per day coffee, soda Drug use: Defer Sexual activity: Defer Other Topics Concern Not on file Social History Narrative Not on file Social Drivers of Health Financial Resource Strain: Medium Risk (07/26/2023) Received from [facility] Overall Financial Resource Strain (CARDIA) Difficulty of Paying Living Expenses: Somewhat hard Food Insecurity: Food Insecurity Present (07/26/2023) Received from [facility] Hunger Vital Sign Within the past 12 months, you worried that your food would run out before you got the money to buymore.: Sometimes true Ran Out of Food in the Last Year: Not on file Transportation Needs: No Transportation Needs (07/26/2023) Received from [facility] Transportation In the past 12 months, has lack of transportation kept you from medical appointments or from getting medications?: No Lack of Transportation (Non-Medical): Not on file Physical Activity: Not on file Stress: Not on file Social Connections: Not on file Intimate Partner Violence: Unknown (07/26/2023) Received from [facility] Humiliation, Afraid, Rape, and Kick questionnaire Fear of Current or Ex-Partner: No Emotionally Abused: Not on file Physically Abused: Not on file Sexually Abused: Not on file Housing Stability: Low Risk (07/26/2023) Received from [facility] Housing Stability Vital Sign Unable to Pay [...] PIPJ region has increased edema with notable 0.4 cm x 0.5 cm 0.2 cm subcutaneous thickness depth ulceration with positive erythema surrounding wound and fibrous slough with negative probe to bone VASC: positive DP and negative PT pedal pulses. Warm to cool tibia to toes bilaterally NEURO: 5.07 Brohman Chago monofilament test intact to digits and forefoot bilaterally 125Hz tuning fork diminished to 1st MPJ bilaterally ORTHO: Positive pain on palpation to toenails of the left 1,2,3,4,5 toes and right 1,2,3,4,5 toes Foot +0 /5 DF of the left foot Positive pain on palpation left 2nd toe ulcer site X-ray: XR foot 3+ views left Imaging Result: Degenerative changes to the midfoot and 1st MPJ region of the left foot with negative osteolysis noted to bone in the left 2nd digit and negative gas noted in tissue ASSESSMENT 1. 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 Foot ulcer, left, with fat layer exposed (HCC) 3. PVD (peripheral vascular disease) 4. Left foot drop 5. Cellulitis of left foot PLAN Continue with AFO Patient to use Medihoney daily to area of ulceration Sharp debridement with 15 blade of subcutaneous ulceration to left foot with active bleeding noted and removal and excision of fibrotic and necrotic tissue to wound and DSD applied with neosporin. Ptto continue with Betadine daily and home health to apply Betadine with dry sterile dressing daily to the left 2nd toe Prescription today for antibiotic Will order LYNN PVRs at [facility] Reviewed x-rays today with patient Fortunato Choi DPM documented in this encounterNOMS HealthcareHistory of Present illness Narrative * Fortunato Choi DPM - 10/30/2024 3:20 PM EDT Images from the original note were not included. Patient: Mirna Quezada : 1950 PCP: Villa Nicolas MD SUBJECTIVE Pt present today for follow up of ulceration to left foot. Pt denies any n/f/v/c. Patient states that they have been using the following treatments for the ulcer of Betadine Pt is a DM2. Patient also had cellulitis left 2nd toe and has been taking oral antibiotics with slight improvement. . Patient states negative pain to the left 2nd toe Patient denies n/f/v/c. Allergies: Allergies Allergen Reactions Amoxicillin-Pot Clavulanate Angioedema Duloxetine Hives Mixed Ragweed Penicillin G Unknown Past Medical History: Past Medical History: Diagnosis Date Allergies angina Anxiety Arthritis Carotid artery disease Congestive heart failure (CHF) ([facility]) COVID-19 01/2020 Depression Diabetes mellitus, type 2 ([facility]) Fall 02/21/2020 inability to care for self [...] before bedtime., Disp: 180 tablet, Rfl: 2 clindamycin (Cleocin) 300 MG capsule, Take 1 capsule (300 mg) by mouth in the morning and 1 capsule(300 mg) in the evening and 1 capsule (300 mg) before bedtime. Do all this for 10 days., Disp: 30 capsule, Rfl: 0 clopidogrel (Plavix) 75 MG tablet, TAKE 1 [...] by mouth Daily, Disp: , Rfl: HYDROcodone-acetaminophen (Mentone) 10-325 MG tablet, Take 1 tablet by mouth every 6 (six) hours if needed for severe pain, Disp: 120 tablet, Rfl: 0 isosorbide mononitrate ER (Imdur) 30 MG 24 hr tablet, Take 30 mg by mouth Daily, Disp: , Rfl: lisinopril 5 MG tablet, Take 5 mg by mouth in the morning., Disp: , Rfl: metFORMIN XR (Glucophage-XR) 750 MG 24 hr tablet, TAKE 1 TABLET BY MOUTH EVERY EVENING WITH MEALS, Disp: 30 tablet, Rfl: 10 metoprolol succinate XL (Toprol-XL) 25 MG 24 hr tablet, Take 25 mg by mouth in the morning., Disp: , Rfl: nitroglycerin (Nitrostat) 0.4 MG SL tablet, Place 0.4 mg under the tongue every 5 (five) minutes ifneeded., Disp: , Rfl: nystatin (Mycostatin) [id number] UNIT/GM powder, every 12 (twelve) hours., Disp: [...] file Tobacco Use Smoking status: Every Day Types: Cigarettes Smokeless tobacco: Never Vaping Use Vaping status: Never Used Substance and Sexual Activity Alcohol use: Never Comment: caffeine intake : 2-3 cups per day coffee, soda Drug use: Defer Sexual activity: Defer Other Topics Concern Not on file Social History Narrative Not on file Social Drivers of Health Financial Resource Strain: Medium Risk (07/26/2023) Received from [facility] Overall Financial Resource Strain (CARDIA) Difficulty of Paying Living Expenses: Somewhat hard Food Insecurity: Food Insecurity Present (07/26/2023) Received from [facility] Hunger Vital Sign Within the past 12 months, you worried that your food would run out before you got the money to buymore.: Sometimes true Ran Out of Food in the Last Year: Not on file Transportation Needs: No Transportation Needs (07/26/2023) Received from [facility] Transportation In the past 12 months, has lack of transportation kept you from medical appointments or from getting medications?: No Lack of Transportation (Non-Medical): Not on file Physical Activity: Not on file Stress: Not on file Social Connections: Not on file Intimate Partner Violence: Unknown (07/26/2023) Received from [facility] Humiliation, Afraid, Rape, and Kick questionnaire Fear of Current or Ex-Partner: No Emotionally Abused: Not on file Physically Abused: Not on file Sexually Abused: Not on file Housing Stability: Low Risk (07/26/2023) Received from [facility] Housing Stability Vital Sign Unable to Pay [...] PIPJ region has increased edema with notable 0.4 cm x 0.4 cm 0.2 cm subcutaneous thickness depth ulceration with greatly diminished erythema surrounding wound and fibrous slough with negative probe to bone VASC: barely palpable DP and negative PT pedal pulses. Warm to cool tibia to toes bilaterally NEURO: 5.07 Brohman Chago monofilament test intact to digits and forefoot bilaterally 125Hz tuning fork diminished to 1st MPJ bilaterally ORTHO: Positive pain on palpation to toenails of the left 1,2,3,4,5 toes and right 1,2,3,4,5 toes Foot +0 /5 DF of the left foot Positive pain on palpation left 2nd toe ulcer site LYNN PVR SEGMENTAL BLOOD PRESSURE [facility] [place] [id number] Cardiology Report Signed Patient: MIRNA QUEZADA MR#: [id number] : 1950 Acct:[id number] Age/Sex: 73 / F ADM Date: 10/29/24 Loc: CARD Attending Dr: FORTUNATO CHOI Ordering Physician: FORTUNATO CHOI Date of Service: 10/29/24 Procedure(s): CA segmental UE or LE PAZ Accession Number(s): [id number] cc: VILLA NICOLAS ; FORTUNATO CHOI [facility] Test Date: 2024-10-29 Pat Name: MIRNA QUEZADA Department: Room: - Gender: Female 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 Interpretive Statements [...] 10/30/24 0903 10/30/24 0904 DD/ 1407 TD/TT: Audit Mgr: ASSESSMENT 1. Cellulitis of left foot 2. 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) 3. Foot ulcer, left, with fat layer exposed (HCC) 4. PVD (peripheral vascular disease) 5. Left foot drop PLAN Continue with AFO Patient to use Betadine daily to area of ulceration Sharp debridement with 15 blade of subcutaneous ulceration to left foot with active bleeding noted and removal and excision of fibrotic and necrotic tissue to wound and DSD applied with neosporin. Ptto continue with Betadine daily and home health to apply Betadine with dry sterile dressing daily to the left 2nd toe Continue with oral antibiotics await LYNN PVRs and referral to vascular Fortunato Choi DPM documented in this encounterNOMS HealthcareHistory of Present illness Narrative * Fortunato Choi DPM - 11/06/2024 1:30 PM EDT Images from the original note were not included. Patient: Mirna Quezada : 1950 PCP: Villa Nicolas MD SUBJECTIVE Pt present today for follow up of ulceration to left foot. Pt denies any n/f/v/c. Patient states that they have been using the following treatments for the ulcer of Betadine Pt is a DM2. Patient also had cellulitis left 2nd toe and has been taking oral antibiotics with Positive improvement. . Patient states negative pain to the left 2nd toe Patient denies n/f/v/c. She had referral to vascular sx on prior visit. Patient has appointment next week Allergies: Allergies Allergen Reactions Amoxicillin-Pot Clavulanate Angioedema Duloxetine Hives Mixed Ragweed Penicillin G Unknown Past Medical History: Past Medical History: Diagnosis Date Allergies angina Anxiety Arthritis Carotid artery disease Congestive heart failure (CHF) ([facility]) COVID-19 01/2020 Depression Diabetes mellitus, type 2 ([facility]) Fall 02/21/2020 inability to care for self [...] by mouth Daily, Disp: , Rfl: HYDROcodone-acetaminophen (Mentone) 10-325 MG tablet, Take 1 tablet by mouth every 6 (six) hours if needed for severe pain, Disp: 120 tablet, Rfl: 0 isosorbide mononitrate ER (Imdur) 30 MG 24 hr tablet, Take 30 mg by mouth Daily, Disp: , Rfl: lisinopril 5 MG tablet, Take 5 mg by mouth in the morning., Disp: , Rfl: metFORMIN XR (Glucophage-XR) 750 MG 24 hr tablet, TAKE 1 TABLET BY MOUTH EVERY EVENING WITH MEALS, Disp: 30 tablet, Rfl: 10 metoprolol succinate XL (Toprol-XL) 25 MG 24 hr tablet, Take 25 mg by mouth in the morning., Disp: , Rfl: nitroglycerin (Nitrostat) 0.4 MG SL tablet, Place 0.4 mg under the tongue every 5 (five) minutes ifneeded., Disp: , Rfl: nystatin (Mycostatin) 060271 UNIT/GM powder, every 12 (twelve) hours., Disp: [...] file Tobacco Use Smoking status: Every Day Types: Cigarettes Smokeless tobacco: Never Vaping Use Vaping status: Never Used Substance and Sexual Activity Alcohol use: Never Comment: caffeine intake : 2-3 cups per day coffee, soda Drug use: Defer Sexual activity: Defer Other Topics Concern Not on file Social History Narrative Not on file Social Drivers of Health Financial Resource Strain: Medium Risk (07/26/2023) Received from [facility] Overall Financial Resource Strain (CARDIA) Difficulty of Paying Living Expenses: Somewhat hard Food Insecurity: Food Insecurity Present (07/26/2023) Received from [facility] Hunger Vital Sign Within the past 12 months, you worried that your food would run out before you got the money to buymore.: Sometimes true Ran Out of Food in the Last Year: Not on file Transportation Needs: No Transportation Needs (07/26/2023) Received from [facility] Transportation In the past 12 months, has lack of transportation kept you from medical appointments or from getting medications?: No Lack of Transportation (Non-Medical): Not on file Physical Activity: Not on file Stress: Not on file Social Connections: Not on file Intimate Partner Violence: Unknown (07/26/2023) Received from [facility] Humiliation, Afraid, Rape, and Kick questionnaire Fear of Current or Ex-Partner: No Emotionally Abused: Not on file Physically Abused: Not on file Sexually Abused: Not on file Housing Stability: Low Risk (07/26/2023) Received from [facility] Housing Stability Vital Sign Unable to Pay [...] increased edema with notable 0.3 cm x 0.4 cm 0.2 cm subcutaneous thickness depth ulceration with negative erythema surrounding wound and fibrous slough with negative probe to bone VASC: barely palpable DP and negative PT pedal pulses. Warm to cool tibia to toes bilaterally NEURO: 5.07 Brohman Chago monofilament test intact to digits and forefoot bilaterally 125Hz tuning fork diminished to 1st MPJ bilaterally ORTHO: Positive pain on palpation to toenails of the left 1,2,3,4,5 toes and right 1,2,3,4,5 toes Foot +0 /5 DF of the left foot Positive pain on palpation left 2nd toe ulcer site LYNN PVR SEGMENTAL BLOOD PRESSURE [address] [address] Cardiology Report Signed Patient: MIRNA QUEZADA MR#: [id number] : 1950 Acct:[id number] Age/Sex: 73 / F ADM Date: 10/29/24 Loc: CARD Attending Dr: FORTUNATO CHOI Ordering Physician: FORTUNATO CHOI Date of Service: 10/29/24 Procedure(s): CA segmental UE or LE PAZ Accession Number(s): [id number] cc: VILLA NICOLAS ; FORTUNATO CHOI [facility] Test Date: 2024-10-29 Pat Name: MIRNA QUEZADA Department: Room: - Gender: Female Mechanical Maintenance: Monica Gibson : 1950 Requested By: FORTUNATO CHOI Order Number: [id number] Reading MD: CHARLOTTE KILGORE M.D. Interpretive Statements [...] 10/30/24 0903 10/30/24 0904 DD/ 1407 TD/TT: Audit Mgr: ASSESSMENT 1. Cellulitis of left foot 2. Foot ulcer, left, with fat layer exposed (HCC) 3. 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) 4. Left foot drop 5. PVD (peripheral vascular disease) PLAN Continue with AFO Patient to use Betadine daily to area of ulceration Sharp debridement with 15 blade of subcutaneous ulceration to left foot with active bleeding noted and removal and excision of fibrotic and necrotic tissue to wound and DSD applied with neosporin. Ptto continue with Betadine daily and home health to apply Betadine with dry sterile dressing daily to the left 2nd toe Fortunato Choi DPM documented in this encounterNOMS HealthcareHistory of Present illness Narrative * Fortunato Choi DPM - 12/18/2024 3:50 PM EDT Patient: Mirna Quezada : 1950 PCP: Villa Nicolas MD SUBJECTIVE [...] Carotid artery disease Congestive heart failure (CHF) ([facility]) COVID-19 01/2020 Depression Diabetes mellitus, type 2 ([facility]) Fall 02/21/2020 inability to care for self [...] by mouth Daily, Disp: , Rfl: HYDROcodone-acetaminophen (Mentone) 10-325 MG tablet, Take 1 tablet by [...] minutes ifneeded., Disp: , Rfl: nystatin (Mycostatin) [id number] UNIT/GM powder, every 12 (twelve) hours., Disp: [...] Strain: Medium Risk (07/26/2023) Received from [facility] Overall Financial Resource Strain (CARDIA) Difficulty of Paying Living Expenses: Somewhat hard Food Insecurity: Food Insecurity Present (07/26/2023) Received from [facility] Hunger Vital Sign Within the past 12 months, you worried that your food would run out before you got the money to buymore.: Sometimes true Ran Out of Food in the Last Year: Not on file Transportation Needs: No Transportation Needs (07/26/2023) Received from [facility] Transportation In the past 12 months, has lack of transportation kept you from medical appointments or from getting medications?: No Lack of Transportation (Non-Medical): Not on file Physical Activity: Not on file Stress: Not on file Social Connections: Not on file Intimate Partner Violence: Unknown (07/26/2023) Received from [facility] Humiliation, Afraid, Rape, and Kick questionnaire Fear of Current or Ex-Partner: No Emotionally Abused: Not on file Physically Abused: Not on file Sexually Abused: Not on file Housing Stability: Low Risk (07/26/2023) Received from [facility] Housing Stability Vital Sign Unable to Pay [...] cool tibia to toes bilaterally NEURO: 5.07 Brohman Chago monofilament test intact to digits and forefoot bilaterally 125Hz tuning fork diminished to 1st MPJ bilaterally ORTHO: Positive pain on palpation to toenails of the left 1,2,3,4,5 toes and right 1,2,3,4,5 toes Foot +0 /5 DF of the left foot minimal pain on palpation left 2nd toe ulcer site LYNN PVR SEGMENTAL BLOOD PRESSURE The [address] [address] Cardiology Report Signed Patient: MIRNA QUEZADA MR#: [id number] : 1950 Acct:[id number] Age/Sex: 73 / F ADM Date: 10/29/24 Loc: CARD Attending Dr: FORTUNATO CHOI Ordering Physician: FORTUNATO CHOI Date of Service: 10/29/24 Procedure(s): CA segmental UE or LE PAZ Accession Number(s): [id number] cc: VILLA NICOLAS ; FORTUNATO CHOI 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 Interpretive Statements [...] Signed By: 10/30/2490210/30/24 0904 DD/ 1407 TD/TT: Audit Mgr: ASSESSMENT 1. Polyneuropathy due to type 2 [...] daily to the left 2nd toe Fortunato Choi DPM documented in this encounterK[facility] CenterHospital Discharge instructions Additional Instructions DISCHARGE INSTRUCTIONS FOR ANGIOGRAM, ANGIOPLASTY, STENT PLACEMEN] FIRST TWO (2) DAYS AFTER DISCHARGE: -Take it easy at home, no strenuous activity. -Do not lift or pull objects over 10 pounds, including children and groceries (10 pounds = 1 gallon milk). -May shower. -[Able to go upstairs?] -No excessive scrubbing of affected groin or arm. -May drive car unless you had sedation for the procedure, then you cannot drive for 24 hours. CALL [name at #] OR [facility] AT [phone]: -If excessive bleeding should occur from the puncture site, immediately apply pressure to the site and call 911. -Report any fever, redness, drainage, increased swelling, or firmness at catheter site insertion. Some bruising or slight swelling may be present and this is normal. -Should the arm or leg become cold, numb, white, or blue - go to the nearest emergency room. MEDICATIONS -Follow instructions on the discharge medication sheet regarding your medications. -[Do NOT take any Metformin containing medications for the next two days: ActoPlusMet, ActoPlusMet XR, Avandamet, Fortamet, Glucophage, Glucophage XR, Glucovance, Glumetza, Janumet, Janumet XR, Jentadueto, Kombiglyze XR, Metaglip, Metformin, PrandiMet, Riomet.] FOLLOW UP/OTHER INSTRUCTIONS [ ][facility] Work Phone: Reason for referral (narrative)No reason for referral information availableMercy Hospital Work Phone: Summary Purpose Family History No Family History [...] Inactivated Comments Full Code 07/20/2023 4:23 PM Advance Directive Response Recorded Date/ Time Advance Directives No June 24 9:36am Documents on File Type Date Recorded Patient Coat Joiner Expl anation Power of Dog Or Horse Racing Official 06/04/2024 9:27 AM Healt hcare Power of Dog Or Horse Racing Official Advance Directives and Living Will 06/04/2024 9:24 AM Living Will Declaration Documents on File Type Date Recorded Patient Coat Joiner Expl anation Power of Dog Or Horse Racing Official 06/04/2024 9:27 AM Healt hcare Power of Dog Or Horse Racing Official Advance Directives and Living Will 06/04/2024 9:24 AM Living Will Declaration Advance Directive Response Recorded Date/ Time Advance Directives No September 10 4:21pm Chief Complaint and Reason for Visit Chief Complaint REF BY DR NICOLAS FOR CAR STEN; NEEDS SURG CLEARANCE Chief Complaint REF BY DR NICOLAS FOR CAR STEN; NEEDS SURG CLEARANCE I65.23 I73.9 Reason for Visit Carotid stenosis Claudication Chief Complaint REF BY DR NICOLAS FOR CAR STEN; NEEDS SURG CLEARANCE I65.23 I73.9 GO OVER PVRS AND CAROTID U/S DONE AT [facility] Reason for Visit Carotid stenosis Claudication Chief Complaint Admit Date swelling in LT foot; cold sensation also April 14, 2024 11:33am I73.9 - Peripheral vascular disease, uns pecified April 14, 2024 11:52am Reason for Visit Admit Date PAD (peripheral artery disease) April 14, 2024 11:33am Smoker April 14, 2024 1 1:33am Wound of left foot April 14, 2024 1 1:33am Chief Complaint Admit Date Ref from Dr. Choi ulcer on L Foot Augus t 2024 11:00am Reason for Visit Admit Date Cognitive impairment September 10, 2024 3:2 1pm Cervical dystonia September 10, 2024 3:21 pm Cervical myelopathy September 10, 2024 3:21 pm Lumbar radiculopathy September 10, 2024 3:2 1pm Parkinsonism September 10, 2024 3:21 pm Polyneuropathy September 10, 2024 3:21 pm Chief Complaint Admit Date Ref from Dr. Choi ulcer on L Foot Augus t 2024 11:00am PAD w/Non Healing Ulcer Left Second Toe December 11, 2024 11:31am Reason for Visit Admit Date PAD (peripheral artery disease) October 242024 11:00am Smoker November 11, 2024 11 :00am Wound of left foot November 11, 2024 11 :00am Additional Source Comments INFORMATION SOURCE (unrecogn ized section and content) DATE CREATED AUTHOR 09/19/2017 [facility] DATE CREATED AUTHOR AUTHOR'S ORGANIZ ATION 07/16/[address] [facility] dical Specialist DATE CREATED AUTHOR AUTHOR'S ORGANIZ ATION 01/19/2022 [facility] DATE CREATED AUTHOR AUTHOR'S ORGANIZ ATION 07/03/2022 [facility] DATE CREATED AUTHOR AUTHOR'S ORGANIZ ATION 07/22/2023 [facility] DATE CREATED AUTHOR AUTHOR'S ORGANIZ ATION 10/11/2023 [facility] DATE CREATED AUTHOR AUTHOR'S ORGANIZ ATION 11/17/2024 [facility] DATE CREATED AUTHOR AUTHOR'S ORGANIZ ATION 12/18/2024 [facility] DATE CREATED AUTHOR AUTHOR'S ORGANIZ ATION 12/26/[address] [facility] dical Specialists EPIC Care Teams (unrecognized sec tion and content) Tow Bar Driver Relationship Specialty Start Date End Date Villa Nicolas MD [address] [facility] [address] [place] [address] PCP - General Internal Medicine 09/27/22 Tow Bar Driver Relationship Specialty Start Date End Date Villa Nicolas MD [address] [facility] [address] [place] [address] PCP - General Internal Medicine 09/27/22 Tow Bar Driver Relationship Specialty Start Date End Date Villa Nicolas MD [address] [facility] [address] [place] [address] PCP - General Internal Medicine 08/15/22 Villa Nicolas MD [address] [place] [address] [place] [address] PCP - ACO Reach 09/04/22 Montse Celestin, RN Registered Nurse Family Medicine 04/06/23 Tow Bar Driver Relationship Specialty Start Date End Date Villa Nicolas MD [address] [place] [address] [place] [address] PCP - General Internal Medicine 09/27/22 Team [...] July 16, 2023 End: July 16, 2023 Tow Bar Driver Relationship Specialty Start Date End Date Villa Nicolas MD [address] [place] [address] [place] [address] PCP - General Internal Medicine 09/27/22 Tow Bar Driver Relationship Specialty Start Date End Date Villa Nicolas MD [address] [place] [address] [place] [address] PCP - General Internal Medicine 08/15/22 Villa Nicolas MD [address] [place] [address] [place] [address] PCP - ACO Reach 09/04/22 Montse Celestin RN Registered Nurse Family Medicine 04/06/23 Tow Bar Driver Relationship Specialty Start Date End Date Villa Nicolas MD [address] [place] [address] [place] [address] PCP - General Internal Medicine 08/15/22 Villa Nicolas MD [address] [place] [address] [place] [address] PCP - ACO Reach 09/04/22 Montse Celestin RN Registered Nurse Family Medicine 04/06/23 Tow Bar Driver Relationship Specialty Start Date End Date Vilal Nicolas MD [address] [place] [address] [place] [address] PCP - General Internal Medicine 08/15/22 Villa Nicolas MD [address] [place] [address] [place] [address] PCP - ACO Reach 09/04/22 Montse Celestin RN Registered Nurse Family Medicine 04/06/23 Tow Bar Driver Relationship Specialty Start Date End Date Villa Nicolas MD [address] [place] [address] [place] [address] PCP - General Internal Medicine 08/15/22 Villa Nicolas MD [address] [place] [address] [place] [address] PCP - ACO Reach 09/04/22 Montse Celestin, KYLE Registered Nurse Family Medicine 04/06/23 Tow Bar Driver Relationship Specialty Start Date End Date Villa Nicolas MD [address] [place] [address] [place] [address] PCP - General Internal Medicine 08/15/22 Villa Nicolas MD [address] [place] [address] [place] [address] PCP - ACO Reach 09/04/22 Montse Celestin RN Registered Nurse Family Medicine 04/06/23 Tow Bar Driver Relationship Specialty Start Date End Date Villa Nicolas MD [address] [place] [address] [place] [address] PCP - General Internal Medicine 08/15/22 Villa Nicolas MD [address] [place] [address] [place] [address] PCP - ACO Reach 09/04/22 Montse Celestin RN Registered Nurse Family Medicine 04/06/23 Tow Bar Driver Relationship Specialty Start Date End Date Villa Nicolas MD [address] [place] [address] [place] [address] PCP - General Internal Medicine 08/15/22 Villa Nicolas MD [address] [place] [address] [place] [address] PCP - ACO Reach 09/04/22 Montse Celestin RN Registered Nurse Family Medicine 04/06/23 Tow Bar Driver Relationship Specialty Start Date End Date Villa Nicolas MD [address] [place] [address] [place] [address] PCP - General Internal Medicine 08/15/22 Villa Nicolas MD [address] [place] [address] [place] [address] PCP - ACO Reach 09/04/22 Montse Celestin RN Registered Nurse Family Medicine 04/06/23 Tow Bar Driver Relationship Specialty Start Date End Date Villa Nicolas MD [address] [place] [address] [place] [address] PCP - General Internal Medicine 08/15/22 Villa Nicolas MD [address] [place] [address] [place] [address] PCP - ACO Reach 09/04/22 Montse Celestin RN Registered Nurse Family Medicine 04/06/23 Team Status: Inactive Member Role Status Dates Villa Nicolas II MD Primary Care Provider Active Start: April 14, 2024 End: April 14, 2024 Aron Rain MD Attending Provider Active S tart: April 14, 2024 End: April 14, 2024 Team Status: Inactive Member Role Status Dates Aron Rain MD Attending Provider Active S tart: April 14, 2024 End: April 14, 2024 Villa Nicolas II MD Primary Care Provider Active Start: April 14, 2024 End: April 14, 2024 Tow Bar Driver Relationship Specialty Start Date End Date Villa Nicolas MD [address] [place] [address] [place] [address] PCP - General Internal Medicine 08/15/22 Villa Nicolas MD [address] [place] [address] [place] [address] PCP - ACO Reach 09/04/22 Montse Celestin RN Registered Nurse Family Medicine 04/06/23 Tow Bar Driver Relationship Specialty Start Date End Date Villa Nicolas MD [address] [place] [address] [place] [address] PCP - General Internal Medicine 08/15/22 Villa Nicolas MD [address] [place] [address] [place] [address] PCP - ACO Reach 09/04/22 Montse Celestin, KYLE Registered Nurse Family Medicine 04/06/23 Tow Bar Driver Relationship Specialty Start Date End Date Villa Nicolas MD [address] [place] [address] [place] [address] PCP - General Internal Medicine 08/15/22 Villa Nicolas MD [address] [place] [address] [place] [address] PCP - ACO Reach 09/04/22 Montse Celestin RN Registered Nurse Family Medicine 04/06/23 Tow Bar Driver Relationship Specialty Start Date End Date Villa Nicolas MD [address] [place] [address] [place] [address] PCP - General Internal Medicine 08/15/22 Villa Nicolas MD [address] [place] [address] [place] [address] PCP - ACO Reach 09/04/22 Montse Celestin, KYLE Registered Nurse Family Medicine 04/06/23 Barbara Mccann NP [address] [place] [address] Nurse Practitioner Neurology 06/17/24 Tow Bar Driver Relationship Specialty Start Date End Date Villa Nicolas MD [address] [place] [address] [place] [address] PCP - General Internal Medicine 08/15/22 Villa Nicolas MD [address] [place] [address] [place] [address] PCP - ACO Reach 09/04/22 Montse Celestin RN Registered Nurse Family Medicine 04/06/23 Barbara Mccann, ANTONI [address] [place] [address] Nurse Practitioner Neurology 06/17/24 Tow Bar Driver Relationship Specialty Start Date End Date Villa Nicolas MD [address] [place] [address] [place] [address] PCP - General Internal Medicine 08/15/22 Villa Nicolas MD [address] [place] [address] [place] [address] PCP - ACO Reach 09/04/22 Montse Celestin RN Registered Nurse Family Medicine 04/06/23 Barbara Mccann, ANTONI [address] [place] [address] Nurse Practitioner Neurology 06/17/24 Tow Bar Driver Relationship Specialty Start Date End Date Villa Nicolas MD [address] [place] [address] [place] [address] PCP - General Internal Medicine 08/15/22 Villa Nicolas MD [address] [place] [address] [place] [address] PCP - ACO Reach 09/04/22 Montse Celestin RN Registered Nurse Family Medicine 04/06/23 Barbara Mccann NP [address] [place] [address] Nurse Practitioner Neurology 06/17/24 Tow Bar Driver Relationship Specialty Start Date End Date Villa Nicolas MD [address] [place] [address] [place] [address] PCP - General Internal Medicine 08/15/22 Villa Nicolas MD [address] [place] [address] [place] [address] PCP - ACO Reach 09/04/22 Montse Celestin RN Registered Nurse Family Medicine 04/06/23 Barbara Mccann NP [address] [place] [address] Nurse Practitioner Neurology 06/17/24 Tow Bar Driver Relationship Specialty Start Date End Date Villa Nicolas MD [address] [place] [address] [place] [address] PCP - General Internal Medicine 08/15/22 Villa Nicolas MD [address] [place] [address] [place] [address] PCP - ACO Reach 09/04/22 Montse Celestin RN Registered Nurse Family Medicine 04/06/23 Barbara Mccann NP [address] [place] [address] Nurse Practitioner Neurology 06/17/24 Tow Bar Driver Relationship Specialty Start Date End Date Villa Nicolas MD [address] [place] [address] [place] [address] PCP - General Internal Medicine 08/15/22 Villa Nicolas MD [address] [place] [address] [place] [address] PCP - ACO Reach 09/04/22 Montse Celestin RN Registered Nurse Family Medicine 04/06/23 Barbara Mccann, ANTONI [address] [place] [address] Nurse Practitioner Neurology 06/17/24 Tow Bar Driver Relationship Specialty Start Date End Date Villa Nicolas MD [address] [place] [address] [place] [address] PCP - General Internal Medicine 08/15/22 Villa Nicolas MD [address] [place] [address] [place] [address] PCP - ACO Reach 09/04/22 Montse Celestin RN [address] [place] [address] Registered Nurse Family Medicine 04/06/23 Barbara Mccann, ANTONI [address] [place] [address] Nurse Practitioner Neurology 06/17/24 Tow Bar Driver Relationship Specialty Start Date End Date Villa Nicolas MD [address] [place] [address] [place] [address] PCP - General Internal Medicine 08/15/22 Villa Nicolas MD [address] [place] [address] [place] [address] PCP - ACO Reach 09/04/22 Montse Celestin RN [address] [place] [address] Registered Nurse Family Medicine 04/06/23 Barbara Mccann, PRIVATE BANKER [address] [place] [address] Nurse Practitioner Neurology 06/17/24 Tow Bar Driver Relationship Specialty Start Date End Date Villa Nicolas MD [address] [place] [address] [place] [address] PCP - General Internal Medicine 08/15/22 Villa Nicolas MD [address] [place] [address] [place] [address] PCP - ACO Reach 09/04/22 Montse Celestin RN [address] [place] [address] Registered Nurse Family Medicine 04/06/23 Barbara Mccann NP [address] [place] [address] Nurse Practitioner Neurology 06/17/24 Tow Bar Driver Relationship Specialty Start Date End Date Villa Nicolas MD [address] [place] [address] [place] [address] PCP - General Internal Medicine 08/15/22 Villa Nicloas MD [address] [place] [address] [place] [address] PCP - ACO Reach 09/04/22 Montse Celestin RN [address] [place] [address] Registered Nurse Family Medicine 04/06/23 Barbara Mccann NP [address] [place] [address] [place] [address] Nurse Practitioner Neurology 06/17/24 Tow Bar Driver Relationship Specialty Start Date End Date Villa Nicolas MD [address] [place] [address] [place] [address] PCP - General Internal Medicine 08/15/22 Villa Nicolas MD [address] [place] [address] [place] [address] PCP - ACO Reach 09/04/22 Montse Celestin RN [address] [place] [address] Registered Nurse Family Medicine 04/06/23 Barbara Mccann NP [address] [place] [address] Nurse Practitioner Neurology 06/17/24 Tow Bar Driver Relationship Specialty Start Date End Date Villa Nicolas MD [address] [place] [address] [place] [address] PCP - General Internal Medicine 08/15/22 Villa Nicolas MD [address] [address] [place] [address] PCP - ACO Reach 09/04/22 Montse Celestin RN [address] [place] [address] Registered Nurse Family Medicine 04/06/23 Barbara Mccann NP [address] [place] [address] Nurse Practitioner Neurology 06/17/24 Tow Bar Driver Relationship Specialty Start Date End Date Villa Nicolas MD [address] [place] [address] [place] [address] PCP - General Internal Medicine 08/15/22 Villa Nicolas MD [address] [place] [address] [place] [address] PCP - ACO Reach 09/04/22 Montse Celestin RN [address] [place] [address] Registered Nurse Family Medicine 04/06/23 Barbara Mccann NP [address] [place] [address] Nurse Practitioner Neurology 06/17/24 Tow Bar Driver Relationship Specialty Start Date End Date Villa Nicolas MD [address] [place] [address] [place] [address] PCP - General Internal Medicine 08/15/22 Villa Nicolas MD [address] [place] [address] [place] [address] PCP - ACO Reach 09/04/22 Montse Celestin RN [address] [place] [address] Registered Nurse Family Medicine 04/06/23 Barbara Mccann NP [address] [place] [address] Nurse Practitioner Neurology 06/17/24 Tow Bar Driver Relationship Specialty Start Date End Date Villa Nicolas MD [address] [place] [address] [place] [address] PCP - General Internal Medicine 08/15/22 Villa Nicolas MD [address] [place] [address] [place] [address] PCP - ACO Reach 09/04/22 Montse Celestin RN [address] [place] [address] Registered Nurse Family Medicine 04/06/23 Barbara Mccann NP [address] [place] [address] Nurse Practitioner Neurology 06/17/24 Tow Bar Driver Relationship Specialty Start Date End Date Villa Nicolas MD [address] [place] [address] [place] [address] PCP - General Internal Medicine 08/15/22 Villa Nicolas MD [address] [place] [address] [place] [address] PCP - ACO Reach 09/04/22 Montse Celestin, RN [address] [place] [address] Registered Nurse Family Medicine 04/06/23 Barbara Mccann NP [address] [place] [address] Nurse Practitioner Neurology 06/17/24 Tow Bar Driver Relationship Specialty Start Date End Date Villa Nicolas MD [address] [place] [address] [place] [address] PCP - General Internal Medicine 08/15/22 Villa Nicolas MD [address] [place] [address] PCP - ACO Reach 09/04/22 Montse Celestin, KYLE [address] [place] [address] Registered Nurse Family Medicine 04/06/23 Barbara Mccann NP [address] [place] [address] Nurse Practitioner Neurology 06/17/24 Tow Bar Driver Relationship Specialty Start Date End Date Villa Nicolas MD [address] [place] [address] [place] [address] PCP - General Internal Medicine 08/15/22 Villa Nicolas MD [address] [place] [address] [place] [address] PCP - ACO Reach 09/04/22 Montse Celestin RN [address] [place] [address] Registered Nurse Family Medicine 04/06/23 Barbara Mccann NP [address] [place] [address] Nurse Practitioner Neurology 06/17/24 Team Status: Inactive Member Role Status Dates Villa Nicolas II MD Primary Care Provider Active Start: September 10, 2024 End: September 10, 2024 Barbara Mccann APRN-MINCING MACHINE OPERATOR-C Attending Provider Active Start: September 10, 2024 End: September 10, 2024 Team Status: Inactive Member Role Status Dates Villa Nicolas II MD Primary Care Provider Active Start: November 11, 2024 End: November 11, 2024 Gely Silva NP-C Attending Provider Active Start: November 11, 2024 End: November 11, 2024 Tow Bar Driver Relationship Specialty Start Date End Date Villa Nicolas MD [address] [email or web address] [address] [place] [address] PCP - General Internal Medicine 08/15/22 Villa Nicolas MD [address] [place] [address] PCP - ACO Reach 09/04/22 Montse Celestin RN [address] [place] [address] Registered Nurse Family Medicine 04/06/23 Barbara Mccann NP [address] [place] [address] Nurse Practitioner Neurology 06/17/24 Team Status: Inactive Member Role Status Dates Villa Nicolas II MD Primary Care Provider Active Start: December 11, 2024 End: December 11, 2024 Aron Rain MD Attending Provider Active S tart: December 11, 2024 End: December 11, 2024 Reason for Visit (unrecogniz ed section and content) Reason Onset Date Comments Med Refill 05/07/2023 Specialty Diagnoses / Procedures Referred By Mitchell t Referred To Contact Diagnoses Spinal stenosis of lumbar region, unspecified whether neurogenic claudication present Spinal stenosis of lumbar region, unspecified whether neurogenic claudication present [M48.061] Procedures [place] LAMINECTOMY W/O FFD > 2 VERT SEG LUMBAR RE-DO L3-4 LUMBAR LAMINECTOMY Christian Webster MD [address] [facility] [address] [place] [address] Referral ID Status Reason Start Date Expiration Date Visits Re quested Visits Authorized [id number] 1 1 Reason Comments Med Refill hydrocodone Reason Onset Date Comments Med Refill 02/04/2024 Reason Comments Parkinson's Disease Neck Pain Back Pain Diabetic Neuropathy Cognitive Impairment Reason Comments pain med follow up Follow-up [facility] ER 11/30/23 dx: fa ll head injury,right hand fracture discharged home-she is setting up ortho appt discuss increasing antidepressant Reason Onset Date Comments Med Refill 12/10/2023 Reason Onset Date Comments Med Refill 03/05/2024 Reason Comments Med Refill Reason Onset Date Comments Med Refill 05/07/2024 Reason Comments DM Foot Care Dm nial care Reason Onset Date Comments Med Refill 06/02/2024 Reason Onset Date Comments Med Refill 06/03/2024 Reason Onset Date Comments Med Refill 06/16/2024 Reason Comments Diabetes Follow-up Controlled/pain med sore on left foot This is an ongoing i ssue has seen PCP and podiatry states she has had 2 courses of abx Med Refill Reason Onset Date Comments Med Refill 07/07/2024 Reason Onset Date Comments Med Refill 08/04/2024 Reason Comments Parkinson's Disease Memory Loss Reason Comments Follow-up PAD Med Refill Hydrocodone-- dm cly de Reason Comments DM Foot Care Reason Comments Follow-up 2wk lt ulcer check Reason Comments Follow-up Lt ulcer check Reason Onset Date Comments Med Refill 10/14/2024 Reason Comments Follow-up Lt ulcer checck Reason Comments Follow-up Lt 2nd ulcer Reason Comments Follow-up Ulcere check Reason Comments Follow-up Ulcer check Reason Comments Medicare Annual Wellness Visit Subsequen t Med Refill Hydrocodone--DM clyd e Goals (unrecognized section and content) Goals may [...] First dose on 07/21/23 at 0900, Until Discontinued, Do not crush [...] 1,000 mg, Oral, DAILY, First dose on Sun07/21/23 at 0900, Until Discontinued 09 (Given - Provid er: Tamiko Toledo [...] RN)2012 (Given - Provider: Milagros Mccray RN) 0907 (Given - Provider: Tamiko Toledo RN)1500 (Due)2100 [...] 172 (Given - Provider: Tamiko Toledo RN) 0907 [...] Harris RN)1253 (NoRateChange - Provider: Felicia Herbert, LIFE SCIENCE TEACHER - LANGUAGE AND LITERATURE DIVISION CHAIR) 1210 (Stopped - Provider: Tamiko Toledo RN [...] - Provider: Milagros Mccray RN) lidocaine-EPINEPHrine 1 %-1:[id number] injection (CANCELED) PRN, Starting on Sun07/20/23 at [...] BE BASED ON THE PRIMARY CLINICAL RECORDS. [facility] [address] [facility]. provides no warranty or guarantee of the accuracy or completeness of information in this document.
--- OUTSIDE RECORDS SUMMARY | 2024-12-29 12:35 | XMS_ITS | Encounter Summary ---
Author Organization [facility] Address [address] [place] [address] Care Team Providers Care Training Administrator Name Role Phone Villa Nicolas MD Primary Care Provider [phone] Villa Nicolas MD Unavailable [phone] Montse Celestin RN Unavailable [phone] Barbara Mccann NP Unavailable Unavailable Encounter Details Date Type Department Care Team ([facility] Contact Info) Description 07/07/2024 Abstract [facility] [place] [facility] [address] [facility] [address] [place] [address] Villa Nicolas MD [address] [facility] [address] [place] [address] Social History Tobacco Use Types Packs/Day Years Used Date Smoking Tobacco: Every Day Cigarettes Smokeless Tobacco: Never Alcohol Use Standard Drinks/Week Comments Never 0 (1 standard drink = 0.6 oz pure alcohol) caffeine intake : 2-3 cups per day coffee, soda PHQ-2 Answer Date Recorded Patient Health Questionnaire-2 Score 0 06/30/2024 Comments Unknown Sex and Gender Information Value Date Recorded Sex Assigned at Not on file Legal Sex Female 7:20 PM EDT Gender Identity Not on file Sexual Orientation Not on file documented as of this encounter Plan of Treatment Upcoming Encounters Date Type Department Care Team ([facility] Contact Info) Description 01/01/2025 1:30 PM EDT Office Visit [facility] [address] [place] [address] Fortunato Moreno, YUE [address] [facility] 5 [place] [address] 03/30/2025 1:00 PM EST Office Visit [facility] [place] [facility] [address] [place] [address] Villa Nicolas MD [address] [place] [address] documented as of this encounter Visit Diagnoses Not on filedocumented in this encounter Care Teams Training Administrator Relationship Specialty Start Date End Date Villa Nicolas MD [address] [place] [address] PCP - General Internal Medicine 08/15/22 Villa Nicolsa MD [address] [place] [address] PCP - ACO Reach 09/04/22 Montse Celestin, KYLE [address] [place] [address] [place] [address] Registered Nurse Family Medicine 04/06/23 Barbara Mccann NP [address] [place] [address] [place] [address] Nurse Practitioner Neurology 06/17/24 documented as of this encounter
--- OUTSIDE RECORDS SUMMARY | 2024-12-29 12:35 | XMS_ITS | Encounter Summary ---
Author Organization [facility] Address [address] [place] [address] Care Team Providers Care Supervisor Glycerin Name Role Phone Villa Nicolas MD Primary Care Provider [phone] Villa Nicolas MD Unavailable [phone] Montse Celestin RN Unavailable [phone] Barbara Mccann NP Unavailable Unavailable Encounter Details Date Type Department Care Team (Late Contact Info) Description 10/18/2022 Abstract [facility] [place] [facility] 112 [facility] 110 [place] [address] Villa Nicolas MD 112 [facility] 110 [place], [place] [address] Social History Tobacco Use Types Packs/Day Years [...] Upcoming Encounters Date Type Department Care Team ([facility] Contact Info) Description 01/01/2025 1:30 PM EDT Office Visit [facility] 112 [facility] [address] [place] [phone] Fortunato Moreno, DPM 3006 [facility] [address] [place] [address] 03/30/2025 1:00 PM EST [facility] [place] [facility] [address] [facility] [address] [place] [address] Villa Nicolas MD [address] [facility] [address] [place] [address] documented as of this encounter Visit Diagnoses Not on filedocumented in this encounter Care Teams Supervisor Glycerin Relationship Specialty Start Date End Date Villa Nicolas MD [address] [facility] [address] [place] [address] PCP - General Internal Medicine 08/15/22 Villa Nicolas MD [address] [facility] [address] [place] [address] PCP - ACO Reach 09/04/22 Montse Celestin RN [address] [facility] [address] [place] [address] Registered Nurse Family Medicine 04/06/23 Barbara Mccann NP [address] [facility] [address] [place] [address] Nurse Practitioner Neurology 06/17/24 documented as of this encounter
--- OUTSIDE RECORDS SUMMARY | 2024-12-29 12:35 | XMS_ITS | Encounter Summary ---
Author Organization [facility] Address [address] [place] [address] Care Team Providers Care Credit Control Officer Name Role Phone Villa Nicolas MD Primary Care Provider [phone] Villa Nicolas MD Unavailable [phone] Montse Celestin RN Unavailable [phone] Barbara Mccann NP Unavailable Unavailable Encounter Details Date Type Department Care Team ([facility] Contact Info) Description 09/02/2024 Abstract [facility] [place] [facility] [address] [facility] [address] [place] [address] Villa Nicolas MD [address] [facility] [address] [place] [address] Social History Tobacco Use Types Packs/Day Years [...] Care Team ([facility] Contact Info) Description 01/01/2025 1:30 PM EDT Office Visit [facility] [address] [place] [address] Fortunato Moreno, YUE [address] [facility] 5 [place] [address] 03/30/2025 1:00 PM EST Office Visit [facility] [place] [facility] [address] [place] [address] Villa Nicolas MD [address] [place] [address] documented as of this encounter Visit Diagnoses Not on filedocumented in this encounter Care Teams Credit Control Officer Relationship Specialty Start Date End Date Villa Nicolas MD [address] [place] [address] PCP - General Internal Medicine 08/15/22 Villa Nicolas MD [address] [place] [address] PCP - ACO Reach 09/04/22 Montse Celestin, KYLE [address] [place] [address] [place] [address] Registered Nurse Family Medicine 04/06/23 Barbara Mccann NP [address] [place] [address] [place] [address] Nurse Practitioner Neurology 06/17/24 documented as of this encounter
--- OUTSIDE RECORDS SUMMARY | 2024-12-29 12:35 | XMS_ITS | Encounter Summary ---
Author Organization [facility] Address [address] [place] [address] Care Team Providers Care Line Installer Repairer Name Role Phone Villa Nicolas MD Primary Care Provider [phone] Villa Nicolas MD Unavailable [phone] Montse Celestin RN Unavailable [phone] Barbara Mccann NP Unavailable Unavailable Encounter Details Date Type Department Care Team ([facility] Contact Info) Description 07/17/2024 Abstract [facility] [place] [facility] [address] [facility] [[email or web address] [address] [place] [phone] Villa Nicolas MD [address] [facility] 110 [place] [address] Social History Tobacco Use Types Packs/Day Years [...] Upcoming Encounters Date Type Department Care Team ([facility] Contact Info) Description 01/01/2025 1:30 PM EDT Office Visit [facility] [address] [place] [address] [place] [address] Fortunato Moreno, YUE 3006 [facility] 5 [place] [address] 03/30/2025 1:00 PM EST Office Visit [facility] [place] [facility] [address] [place] [address] Villa Nicolas MD [address] [place] [address] [place] [address] documented as of this encounter Visit Diagnoses Not on filedocumented in this encounter Care Teams Line Installer Repairer Relationship Specialty Start Date End Date Villa Nicolas MD [address] [place] [address] [place] [address] PCP - General Internal Medicine 08/15/22 Villa Nicolas MD [address] [place] [address] PCP - ACO Reach 09/04/22 Montse Celestin, KYLE [address] [place] [address] [place] [address] Registered Nurse Family Medicine 04/06/23 Barbara Mccann NP [address] [place] [address] [place] [address] Nurse Practitioner Neurology 06/17/24 documented as of this encounter
--- OUTSIDE RECORDS SUMMARY | 2024-12-29 12:35 | XMS_ITS | Encounter Summary ---
Author Organization [facility] Address [address] [place] [address] Care Team Providers Care Package Maker Name Role Phone Villa Nicolas MD Primary Care Provider [phone] Villa Nicolas MD Unavailable [phone] Montse Celestin RN Unavailable [phone] Barbara Mccann NP Unavailable Unavailable Encounter Details Date Type Department Care Team ([facility] Contact Info) Description 07/08/2024 Abstract [facility] [place] [facility] [address] [facility] [address] [place] [address] Villa Nicolas MD [address] [facility] [address] [place] [address] Social History Tobacco Use Types Packs/Day Years [...] Upcoming Encounters Date Type Department Care Team ([facility] Contact Info) Description 01/01/2025 1:30 PM EDT Office Visit [facility] [address] [place] [address] [place] [address] Fortunato Moreno, YUE [address] [facility] 5 [place] [address] 03/30/2025 1:00 PM EST Office Visit [facility] [place] [facility] [address] [place] [address] Villa Nicolas MD [address] [place] [address] [place] [address] documented as of this encounter Visit Diagnoses Not on filedocumented in this encounter Care Teams Package Maker Relationship Specialty Start Date End Date Villa Nicolas MD [address] [place] [address] [place] [address] PCP - General Internal Medicine 08/15/22 Villa Nicolas MD [address] [place] [address] [place] [address] PCP - ACO Reach 09/04/22 Montse Celestin, KYLE [address] [place] [address] [place] [address] Registered Nurse Family Medicine 04/06/23 Barbara Mccann NP [address] [place] [address] [place] [address] Nurse Practitioner Neurology 06/17/24 documented as of this encounter
--- OUTSIDE RECORDS SUMMARY | 2024-12-29 12:35 | XMS_ITS | Patient Health Record ---
Author Organization [facility] Address [address] [place] [address] Care Team Providers Care Patron Attendant Name Role Phone Emerson Can[facility] [phone] Reason For Referral No Information Problems Problem Type SNOMED Code ICD Code Onset Dates Problem Status W/U Status Risk Notes Problem [id number] Nondisplaced fracture of proximal phalanx of right little finger, subsequent encounter for fracture with routine healing (S62.646D) Active confirmed Plan Of Treatment Pending Test Test Name Order Date SCC- HAND 3 VIEW RIGHT [id number] 12/24/2023 Insurance Providers Payer Name Payer Address Payer Phone Subscriber Number Group Number Insured Name Patient Relationship to Insured Coverage Start Date Coverage End [place] [address] [place] [address] [id number] JAXSON QUEZADA Self - patient is the insured [place] Dept of Medicaid [address] [place] [address] [phone] [id number] JAXSON QUEZADA Self - patient is the insured
--- OUTSIDE RECORDS SUMMARY | 2024-12-29 12:35 | XMS_ITS | Encounter Summary ---
Author Organization [facility] Address [address] [place] [address] Care Team Providers Care Youtuber Name Role Phone Villa Nicolas MD Primary Care Provider Villa Nicolas MD Unavailable [phone] Montse Celestin RN Unavailable [phone] Barbara Mccann NP Unavailable Unavailable Encounter Details Date Type Department Care Team ([facility] Contact Info) Description 10/30/2022 Orders Only [facility] [place] [facility] 112 [facility] [address] [place] [address] A, Unknown Practice [address] [place], [place] [address] Social History Tobacco Use Types Packs/Day Years [...] PODIATRY [address] [place] [address] Fortunato Moreno, DPM 3006 [facility] 5 [place] [address] 03/30/2025 1:00 PM EST Office Visit [facility] [place] [facility] [address] [place] [address] Villa Nicolas MD [address] [place] [address] documented as of this encounter Procedures Procedure Name Priority Date/Time Associated Diagnosis Comments SCANNED LABS Routine 10/26/2022 9:21 AM EDT ELECTROCARDIOGRAM REPORT Routine 023 9:21 AM EDT documented in this encounter Results * SCANNED LABS (10/26/2022 9:21 AM EDT) us Unknown Practice A LAB CHG PERFORMABLES Final Re sult * Electrocardiogram Report (10/26/2022 9:21 AM EDT) us Unknown Practice A IN CLINIC/BEDSIDE ORDERABLES Final Result documented in this encounter Visit Diagnoses Not on filedocumented in this encounter Care Teams Youtuber Relationship Specialty Start Date End Date Villa Nicolas MD [address] [facility] [address] [place] [address] PCP - General Internal Medicine 08/15/22 Villa Nicolas MD [address] [place] [address] [place] [address] PCP - ACO Reach 09/04/22 Montse Celestin, KYLE [address] [place] [address] [place] [address] Registered Nurse Family Medicine 04/06/23 Barbara Mccann NP [address] [place] [address] [place] [address] Nurse Practitioner Neurology 06/17/24 documented as of this encounter
--- OUTSIDE RECORDS SUMMARY | 2024-12-29 12:35 | XMS_ITS | Encounter Summary ---
Author Organization [facility] Address [address] [place] [address] Care Team Providers Care Grab Operator Name Role Phone Villa Nicolas MD Primary Care Provider [phone] Villa Nicolas MD Unavailable [phone] Montse Celestin RN Unavailable [phone] Barbara Mccann NP Unavailable Unavailable Encounter Details Date Type Department Care Team (Late Contact Info) Description 10/06/2022 Abstract [facility] [place] [facility] 112 [facility] 110 [place] [address] Villa Nicolas MD 112 [facility] 110 [place], [place] [address] Social History Tobacco Use Types Packs/Day Years [...] Office Visit [facility] 112 [facility] [address] [place] [phone] Fortunato Moreon, DPM 3006 [facility] 5 [place] [address] 03/30/2025 1:00 PM EST [facility] [place] [facility] [address] [facility] 110 [place] [address] Villa Nicolas MD [address] [facility] 110 [place] [address] documented as of this encounter Visit Diagnoses Not on filedocumented in this encounter Care Teams Grab Operator Relationship Specialty Start Date End Date Villa Nicolas MD [address] [facility] 110 [place] [address] PCP - General Internal Medicine 08/15/22 Villa Nicolas MD [address] [facility] [address] [place] [address] PCP - ACO Reach 09/04/22 Montse Celestin RN [address] [facility] 230 [place] [address] Registered Nurse Family Medicine 04/06/23 Barbara Mccann NP [address] [facility] [address] [place] [address] Nurse Practitioner Neurology 06/17/24 documented as of this encounter
--- OUTSIDE RECORDS SUMMARY | 2024-12-29 12:35 | XMS_ITS | Encounter Summary ---
Author Organization [facility] Address [address] [place] [address] Care Team Providers Care Patrol Officer Name Role Phone Villa Nicolas MD Primary Care Provider [phone] Villa Nicolas MD Unavailable [phone] Montse Cleestin RN Unavailable [phone] Barbara Mccann NP Unavailable Unavailable Encounter Details Date Type Department Care Team (Late Contact Info) Description 12/06/2022 Abstract [facility] [place] [facility] 112 [facility] 110 [place] [phone] Villa Nicolas MD 112 [facility] 110 [place], [place] [id number] Social History Tobacco Use Types Packs/Day Years [...] Upcoming Encounters Date Type Department Care Team ([facility] Contact Info) Description 01/01/2025 1:30 PM EDT Office Visit [facility] 112 [facility] [address] [place] [phone] Fortunato Moreno, DPM 3006 [facility] 5 [place] [address] 03/30/2025 1:00 PM EST [facility] [place] [facility] [address] [facility] [address] [place] [address] Villa Nicolas MD [address] [facility] 110 [place] [address] documented as of this encounter Visit Diagnoses Not on filedocumented in this encounter Care Teams Patrol Officer Relationship Specialty Start Date End Date Villa Nicolas MD [address] [facility] 110 [place] [address] PCP - General Internal Medicine 08/15/22 Villa Nicolas MD [address] [facility] 110 [place] [address] PCP - ACO Reach 09/04/22 Montse Celestin RN [address] [facility] 230 [place] [address] Registered Nurse Family Medicine 04/06/23 Barbara Mccann NP [address] [facility] [address] [place] [address] Nurse Practitioner Neurology 06/17/24 documented as of this encounter
--- OUTSIDE RECORDS SUMMARY | 2024-12-29 12:35 | XMS_ITS | Encounter Summary ---
Author Organization [facility] Address [address] [place] [address] Care Team Providers Care Central Supply Worker Name Role Phone Villa Nicolas MD Primary Care Provider Villa Nicolas MD Unavailable [phone] Montse Celestin RN Unavailable [phone] Barbara Mccann NP Unavailable Unavailable Encounter Details Date Type Department Care Team ([facility] Contact Info) Description 07/17/2024 Abstract [facility] [place] [facility] [address] [facility] 110 [place] [phone] Villa Nicolas MD [address] [facility] 110 [place] [address] Social History Tobacco Use Types Packs/Day Years [...] Date Type Department Care Team ([facility] Contact Info) Description 01/01/2025 1:30 PM EDT Office Visit [facility] [address] [place] [address] [place] [phone] Fortunato Moreno, YUE 3006 [facility] 5 [place] [address] 03/30/2025 1:00 PM EST Office Visit [facility] [place] [facility] [address] [facility] [address] [place] [address] Villa Nicolas MD [address] [facility] [address] [place] [address] documented as of this encounter Visit Diagnoses Not on filedocumented in this encounter Care Teams Central Supply Worker Relationship Specialty Start Date End Date Villa Nicolas MD [address] [facility] [address] [place] [address] PCP - General Internal Medicine 08/15/22 Villa Nicolas MD [address] [facility] [address] [place] [address] PCP - ACO Reach 09/04/22 Montse Celestin, KYLE [address] [place] [address] [place] [address] Registered Nurse Family Medicine 04/06/23 Barbara Mccann NP [address] [place] [address] [place] [address] Nurse Practitioner Neurology 06/17/24 documented as of this encounter
--- OUTSIDE RECORDS SUMMARY | 2024-12-29 12:35 | XMS_ITS | Encounter Summary ---
Author Organization [facility] Address [address] [place] [address] Care Team Providers Care Pig Furnace Operator Name Role Phone Villa Nicolas MD Primary Care Provider [phone] Villa Nicolas MD Unavailable [phone] Montse Celestin RN Unavailable [phone] Barbara Mccann NP Unavailable Unavailable Encounter Details Date Type Department Care Team (Late Contact Info) Description 09/27/2022 Abstract [facility] [place] [facility] 112 [facility] 110 [place] [phone] Villa Nicolas MD 112 [facility] 110 [place], [place] [phone] Social History Tobacco Use Types Packs/Day Years [...] Department Care Team ([facility] Contact Info) Description 01/01/2025 1:30 PM EDT Office Visit [facility] 112 [facility] 120 [place] [phone] Fortunato Moreno, DPM 3006 [facility] 5 [place] [address] 03/30/2025 1:00 PM EST [facility] [place] [facility] [address] [facility] [address] [place] [address] Villa Nicolas MD [address] [facility] 110 [place] [address] documented as of this encounter Visit Diagnoses Not on filedocumented in this encounter Care Teams Pig Furnace Operator Relationship Specialty Start Date End Date Villa Nicolas MD [address] [facility] 110 [place] [address] PCP - General Internal Medicine 08/15/22 Villa Nicolas MD [address] [facility] 110 [place] [address] PCP - ACO Reach 09/04/22 Montse Celestin RN [address] [facility] 230 [place] [address] Registered Nurse Family Medicine 04/06/23 Barbara Mccann NP [address] [facility] [address] [place] [address] Nurse Practitioner Neurology 06/17/24 documented as of this encounter
--- OUTSIDE RECORDS SUMMARY | 2024-12-29 12:35 | XMS_ITS | Encounter Summary ---
Author Organization [facility] Address [address] [place] [address] Care Team Providers Care Chiropractor Sole Practitioner Name Role Phone Villa Nicolas MD Primary Care Provider Villa Nicolas MD Unavailable [phone] Montse Celestin RN Unavailable [phone] Barbara Mccann NP Unavailable Unavailable Encounter Details Date Type Department Care Team (Late Contact Info) Description 08/11/2022 Abstract [facility] [place] [facility] 112 [facility] [address] [place] [phone] Dacia Schaeffer MA Social History Tobacco Use Types Packs/Day Years [...] EDT Office Visit [facility] 112 [facility] [address] [place] [phone] Fortunato Moreno, DPM 3006 [facility] 5 [place] [address] 03/30/2025 1:00 PM EST Office Visit [facility] [place] [facility] [address] [place] [address] [place] [phone] Villa Nicolas MD 112 [facility] 110 [place], [place] [address] documented as of this encounter Visit Diagnoses Not on filedocumented in this encounter Care Teams Chiropractor Sole Practitioner Relationship Specialty Start Date End Date Villa Nicolas MD [address] [facility] 110 [place] [address] PCP - General Internal Medicine 08/15/22 Villa Nicolas MD [address] [facility] [address] [place] [address] PCP - ACO Reach 09/04/22 Montse Celestin RN [address] [facility] [address] [place] [address] Registered Nurse Family Medicine 04/06/23 Barbara Mccann NP [address] [facility] [address] [place] [address] Nurse Practitioner Neurology 06/17/24 documented as of this encounter
--- OUTSIDE RECORDS SUMMARY | 2024-12-29 12:35 | XMS_ITS | Encounter Summary ---
Author Organization [facility] Address [address] [place] [address] Care Team Providers Care Merchandiser Name Role Phone Villa Nicolas MD Primary Care Provider [phone] Villa iNcolas MD Unavailable [phone] Montse Celestin RN Unavailable [phone] Barbara Mccann NP Unavailable Unavailable Encounter Details Date Type Department Care Team ([facility] Contact Info) Description 10/19/2022 Orders Only [facility] [place] [facility] [address] [facility] [address] [place] [address] A, Unknown Practice [address] [place], [place] [phone] Social History Tobacco Use Types Packs/Day Years [...] PODIATRY [address] [place] [address] [place] [address] Fortunato Moreno, DPM 3006 [facility] 5 [place] [address] 03/30/2025 1:00 PM EST Office Visit [facility] [place] [facility] [address] [facility] [address] [place] [address] Villa Nicolas MD [address] [facility] 110 [place] [address] documented as of this encounter Procedures Procedure Name Priority Date/Time Associated Diagnosis Comments XR LUMBAR SPINE 6+ VIEWS INCLUDING OBLIQUE FLEXION EXTENSION Routine 10/17/2022 12:[address] LUMBAR SPINE WO IV CONTRAST Routine 10/17/2022 8:54 AM EDT documented in this encounter Results * XR lumbar spine 6+ views including oblique flexion extension (10/17/2022 12:58 PM EDT) Anatomical Region Laterality Modality Spine, L-spine Radiographic Peg ging us Unknown Practice A IMG XR PROCEDURES Final Resul t * CT lumbar spine wo IV contrast (10/17/2022 8:54 AM EDT) Anatomical Region Laterality Modality Spine, L-spine Computed Tomogra phy us Unknown Practice A IMG CT PROCEDURES Final Resul t documented in this encounter Visit Diagnoses Not on filedocumented in this encounter Care Teams Merchandiser Relationship Specialty Start Date End Date Villa Nicolas MD [address] [facility] [address] [place] [address] PCP - General Internal Medicine 08/15/22 Villa Nicolas MD [address] [facility] 110 [place] [address] PCP - ACO Reach 09/04/22 Montse Celestin, KYLE [address] [place] [address] [place] [address] Registered Nurse Family Medicine 04/06/23 Barbara Mccann NP [address] [place] [address] [place] [address] Nurse Practitioner Neurology 06/17/24 documented as of this encounter
--- OUTSIDE RECORDS SUMMARY | 2024-12-29 12:35 | XMS_ITS ---
Author Organization [facility] Address [address] [facility] [place] [address] Care Team Providers Care Mutual Fund Sales Agent Name Role Phone Villa Nicolas MD Primary Care Provider [phone] Villa Nicolas MD Unavailable [phone] Montse Celestin RN Unavailable [phone] Barbara Mccann NP Unavailable Unavailable Chronic Care Management (CCM) Status:Enrolled (Active) Start date:04/06/2023 Enrollment date:04/06/2023 Overview Addresses patients in need of care management services. 04/06/23, 12:36 PM - Montse Celestin, KYLE- Patient gives verbal consent to be enrolled in CCM Program and understands there could be a bill forthis service. CCM Bill No Case Team Name Relationship Phone Montse Celestin RN(Responsible Staff) Registere d Nurse [phone] Continued Care and Services Coordination
--- OUTSIDE RECORDS SUMMARY | 2024-12-29 12:35 | XMS_ITS | Encounter Summary ---
Author Organization [facility] Address [address] [place] [address] Care Team Providers Care Merchandising Manager Name Role Phone Villa Nicolas MD Primary Care Provider [phone] Villa Nicolas MD Unavailable [phone] Montse Celestin RN Unavailable [phone] Barbara Mccann NP Unavailable Unavailable Reason for Visit * Reason Onset Date Comments Med Refill 08/19/2024 Encounter Details Date Type Department Care Team (Late st Contact Info) Description 08/19/2024 Telephone [facility] [address] [place] [phone] Octavio Xavier ARRT Med Refill Social History Tobacco Use Types [...] encounter Miscellaneous Notes * Telephone Encounter - Barbara Mccann NP - 08/19/2024 2:44 PM EDT OARRS reviewed. Due for refill now. Prescription sent. * Telephone Encounter - CARLOS Coronado - 08/19/2024 2:32 PM EDT Patient's left message requesting refill of Lyrica 150mg TID sent to [facility] in [place]. (Continue Lyrica 150 mg by mouth three times a day .... Per Barbara Mccann COATING MACHINE OPERATOR on 06/17/24) documented in this encounter Plan of Treatment Upcoming Encounters Date Type Department Care Team (Late st Contact Info) Description 01/01/2025 1:30 PM EDT Office Visit [facility] 112 [facility] 120 [place] [address] Fortunato Moreno DPM 3006 [facility] 5 [place] [address] 03/30/2025 1:00 PM EST Office Visit [facility] [place] [facility] 112 [facility] 110 [place] [address] Villa Nicolas MD 112 [facility] 110 [place] [address] documented as of this encounter Visit Diagnoses Diagnosis Lumbar radiculopathy- Primary Thoracic or lumbosacral neuritis or radiculitis, unspecified Pain Generalized pain 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) 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)- Primary PVD (peripheral vascular disease) Unspecified peripheral vascular disease Foot ulcer, left, with fat layer exposed (HCC) Left foot drop Other acquired deformity of ankle and foot documented in this encounter Care Teams Merchandising Manager Relationship Specialty Start Date End Date Villa Nicolas MD 112 [place] [facility] 110 [place] [address] PCP - General Internal Medicine 08/15/22 Villa Nicolas MD [address] [place] [facility] [address] [place] [address] PCP - ACO Reach 09/04/22 Montse Celestin, RN [address] [place] [address] [place] [address] Registered Nurse Family Medicine 04/06/23 Barbara Mccann NP [address] [facility] [address] [place] [address] Nurse Practitioner Neurology 06/17/24 documented as of this encounter
--- OUTSIDE RECORDS SUMMARY | 2024-12-29 12:35 | XMS_ITS | Encounter Summary ---
Author Organization [facility] Address [address] [place] [address] Care Team Providers Care Retail Sales Specialist Name Role Phone Villa Nicolas MD Primary Care Provider [phone] Villa Nicolas MD Unavailable [phone] Montse Celestin RN Unavailable [phone] Barbara Mccann NP Unavailable Unavailable Encounter Details Date Type Department Care Team (Late Contact Info) Description 08/16/2022 Abstract [facility] [address] [facility] [address] [place] [address] Fortunato Moreno DPM [address] [address] Social History Tobacco Use Types Packs/Day Years Used Date Smoking Tobacco: Every Day Cigarettes Tobacco Cessation:Ready to Q uit: Not Asked; Counseling Given: Not Answered Alcohol Use Standard Drinks/Week Comments Never 0 [...] Encounters Date Type Department Care Team ([facility] Contact Info) Description 01/01/2025 1:30 PM EDT Office Visit [facility] [address] [facility] [address] [place] [phone] Fortunato Moreno DPM [address] [address] 03/30/2025 1:00 PM EST Office Visit [facility] [place] [facility] [address] [facility] [address] [place] [address] [place] MD [address] [facility] [address] [place] [address] documented as of this encounter Visit Diagnoses Not on filedocumented in this encounter Care Teams Retail Sales Specialist Relationship Specialty Start Date End Date Villa Nicolas MD [address] [place] [address] [place] [address] PCP - General Internal Medicine 08/15/22 Villa Nicolas MD [address] [facility] 110 [place] [address] PCP - ACO Reach 09/04/22 Montse Celestin, KYLE [address] [facility] 230 [place] [address] Registered Nurse Family Medicine 04/06/23 Barbara Mccann NP [address] [facility] 230 [place] [address] Nurse Practitioner Neurology 06/17/24 documented as of this encounter
--- NOTE | 2024-12-29 13:00 | CA_ITS ---
Patient Name: JAXSON QUEZADA MR#: [id number] : 1950 Exam Date: 12/29/2024 Ordering Doctor: PRESLEY COLINDRES CNP ECHOCARDIOGRAM REPORT PROCEDURE: CA ECHO DOPPLER COMPLETE INDICATIONS: Aortic valve stenosis, CABG, Parkinsons, diabetes hypertension COMPARISON: None. DESCRIPTION: COMPLETE ECHOCARDIOGRAM Real-time transthoracic echocardiography with 2D, M-mode, spectral and color flow Doppler performed. QUALITY: Technical quality was good. LEFT VENTRICLE: Normal chamber size. Thickened septal wall. Normal systolic function estimated left ventricular ejection fraction is 55-60%. LV EF: Normal left ventricular ejection fraction, (>55%). DIASTOLIC: Diastolic function is indeterminate. ATRIAL SEPTUM: Visually appears intact. LEFT ATRIUM: Moderate dilatation. RIGHT ATRIUM: Mild dilatation. RIGHT VENTRICLE: Normal chamber size. Normal right ventricular systolic function. TRICUSPID VALVE: Normal mobility and thickness. No stenosis with trivial regurgitation. No evidence of pulmonary hypertension. RVSP 26 mmHg MITRAL VALVE: Normal mobility and thickness. No evidence of mitral valve stenosis. Mild mitral annular calcification. Trivial mitral regurgitation. AORTIC VALVE: Trileaflet appearance. Heavily calcified aortic valve, especially in the right and noncoronary cusps. Moderately to severely diminished mobility. Doppler velocity suggest moderate to severe aortic valve stenosis. DVI 0.3, JULIO 1.0 cm2, mean 21.5 mmHg, Vmax 3.15 m/s. Mild to moderate aortic regurgitation. AORTIC ROOT: Normal diameter and appearance, measuring 3.0 cm. PULMONIC VALVE: Normal thickness and mobility. No stenosis. No regurgitation. PERICARDIUM: No evidence of pericardial effusion. IVC: Collapses with inspirations. IVC is normal in size. PLEURA: CONCLUSION: 1. Normal left atrial size and systolic function. Estimated LVEF is 55 to 60%. 2. Normal right ventricular size and systolic function. 3. Mild to moderate biatrial dilatation. 4. Heavily calcified aortic valve with moderate to severe stenosis and mild to moderate regurgitation. 5. Normal right-sided pressures. Adult Echocardiography Procedure Report Left Ventricle LVEDD (3.7 - 5.6 cm): 4.41 cm LVESD (2.2 - 4.0 cm): 2.99 cm LVIVS thickness (0.6 - 1.2 cm): 1.30 cm LVPW thickness (0.5 - 1.0 cm): 0.99 cm e': 0.09 m/s E - e': 8.49 LVOT Max Gradient: 3.65 mm[Hg] LVOT Area (cm2): 0.96 m/s Peak Velocity (LVOT): 0.96 m/s Mean Velocity (LVOT): 0.68 m/s LVOT Diameter 2.03 cm Left Ventricular Ejection Fraction: 55-60 % Left Atrium LA Volume Index (2D A2C): 47.00 ml/m2 Left Atrium Systolic Dimension: 3.04 cm Mitral Valve MV E to A Ratio: 0.73 Mitral Valve A-Wave Peak Velocity: 1.03 m/s Mitral Valve E-Wave Peak Velocity: 0.76 m/s Right Ventricle Aorta AO Root Diam: 2.99 cm Aortic Valve AoV Area (Peak Jarad): 0.98 cm2, 1.09 cm2 AoV Area (VTI): 0.98 cm2, 1.17 cm2 Deceleration Obion: 2.69 m/s2 Pressure Half-Time: 481.37 ms Peak Velocity(Antegrade Flow): 2.82 m/s, 3.11 m/s, 3.15 m/s Peak Gradient(Antegrade Flow): 31.73 mm[Hg], 38.58 mm[Hg], 39.66 mm[Hg] Mean Velocity(Antegrade Flow): 1.99 m/s, 2.17 m/s, 2.14 m/s Mean Gradient(Antegrade Flow): 17.86 mm[Hg], 21.52 mm[Hg], 21.20 mm[Hg] Velocity Time Integral: 73.21 cm, 87.64 cm, 79.70 cm Tricuspid Valve Peak Velocity (Regurgitant Flow): 2.06 m/s, 2.42 m/s Pulmonic Valve Mean Gradient: 1.87 mm[Hg] Mean Velocity: 0.63 m/s Peak Velocity: 1.00 m/s Peak Gradient: 3.60 mm[Hg], 4.02 mm[Hg], 3.97 mm[Hg] Right Atrium Right Atrium Systolic Pressure: 38.70 ml, 38.70 ml Dictated by: Ender Goff M.D. on 12/29/2024 at 15:13 Approved by: Ender Goff M.D. on 12/29/2024 at 15:19
== END 2024-12-29 12:30 | disposition home or self-care (01) ==
LOC: CARD 12:29
PROVIDERS: PCP Internal Medicine; Visit Provider Nurse Practitioner Family
DX: I35.9 Nonrheumatic aortic valve disorder, unspecified (principal); I35.0 Nonrheumatic aortic (valve) stenosis
CPT/HCPCS: 93306